=== PATIENT | female | born 1955 | race Caucasian/White ===

== ENCOUNTER 2016-07-31 12:30 | Outpatient (RCR) | payer MEDICAID ==
--- OUTSIDE RECORDS SUMMARY | 2016-07-25 09:19 | XMS REPORT | Continuity of Care Document ---
Author Author [facility] Organization [facility] Address Unknown Phone Unavailable Care Team Providers Care Bottoming Room Supervisor Name Role Phone Unverified, Unverified PCP Unavailable Source Comments Some departments are not documenting in the electronic medical record. 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
[2016-07-25 09:38] LABS: BASOPHILS % (AUTO) 0 % (0-10); EOSINOPHILS # (AUTO) 0.4 10^3/uL (0.0-0.3); EOSINOPHILS % (AUTO) 4 % (0-10); LYMPHOCYTES # (AUTO) 3.6 X 10^3 (1.0-4.0); LYMPHOCYTES % (AUTO) 42 % (12-44); MEAN CORPUSCULAR HEMOGLOBIN 29 PG (25-34); MEAN CORPUSCULAR HGB CONC 32 G/DL (32-36); MEAN CORPUSCULAR VOLUME 91 FL (80-99); MEAN PLATELET VOLUME 10.3 FL (7.4-10.4); MONOCYTES # (AUTO) 0.7 X 10^3 (0.0-1.0); MONOCYTES % (AUTO) 8 % (0-12); NEUTROPHILS # (AUTO) 3.9 X 10^3 (1.8-7.8); NEUTROPHILS % (AUTO) 46 % (42-75); PLATELET COUNT 232 10^3/uL (130-400); RED BLOOD COUNT 4.47 10^6/uL (4.35-5.85); RED CELL DISTRIBUTION WIDTH 14.4 % (10.0-14.5); WHITE BLOOD COUNT 8.6 10^3/uL (4.3-11.0)
[2016-07-25 10:03] LABS: BILIRUBIN,URINE NEGATIVE (NEGATIVE); KETONES,URINE NEGATIVE (NEGATIVE); LEUKOCYTE ESTERASE ,URINE NEGATIVE (NEGATIVE); NITRITE,URINE NEGATIVE (NEGATIVE); PH,URINE 6 (5-9); PROTEIN,URINE 1+ (NEGATIVE); UROBILINOGEN,URINE NORMAL (NORMAL)
[2016-07-25 10:25] LABS: ALBUMIN 4.2 G/DL (3.2-4.5); BILIRUBIN,TOTAL 0.5 MG/DL (0.1-1.0); CREATININE SERUM 0.96 MG/DL (0.60-1.30); POTASSIUM 4.4 MMOL/L (3.6-5.0); TOTAL PROTEIN 6.5 G/DL (6.4-8.2)
[2016-07-25 10:25] LABS: SQUAMOUS EPITHELIAL CELL,UR 25-50 /HPF
[~2016-07-31 12:30] MED LIST: ASPI-808 PO; ATEN50TA PO; ATN50T; ATOR40TA70 PO; BUPR150T9 PO; CYCL10TA9 PO; DIAZ5TAB3 PO; DULO30CA3 PO; FLEXERIL; HYDR-3812 PO; HYDR1CAP2 PO; HYDROCODONE; LEVSIN SL; LORA-794 PO; MIRT30TA PO; OMEP20CA12 PO; OMEP40CA36 PO; PANT40TA2 PO; PAXIL; PNT40TEC; PRX20T PO; VNL75T
== END 2016-10-23 | disposition home or self-care (01) ==
LOC: ONC 12:30
PROVIDERS: ATTEND Internal Medicine Hematology & Oncology
DX: C64.1 Malignant neoplasm of right kidney, except renal pelvis (principal); R16.0 Hepatomegaly, not elsewhere classified; I10 Essential (primary) hypertension; E66.01 Morbid (severe) obesity due to excess calories; Z68.41 Body mass index [BMI] 40.0-44.9, adult; Z79.899 Other long term (current) drug therapy
CPT/HCPCS: 36415; 80053; 81000; 85025; 99213

== ENCOUNTER 2016-12-19 09:44 | Outpatient (CLI) | payer MEDICAID ==
[~2016-12-19] VITALS: Ht 157.5 cm; Wt 131.5 kg
[2016-12-19 09:49] VITALS: BP 142/72
[2016-12-19] MEDS ORDERED: POTA-51 PO (10:00)
[2016-12-19] MEDS ORDERED: TIZA2CAP9 PO (10:00)
[2016-12-19] MEDS ORDERED: DICL100G27 TP (10:00)
[2016-12-19] MEDS ORDERED: FURO20TA4 PO (10:00)
[2016-12-19] MEDS ORDERED: ASPI-808 PO (10:00)
[2016-12-19] MEDS ORDERED: ATOR40TA70 PO (10:00)
[2016-12-19] MEDS ORDERED: HYDR-3812 PO (10:00)
[2016-12-19] MEDS ORDERED: BUPR300T51 PO (10:00)
== END 2016-12-19 10:05 | disposition home or self-care (01) ==
LOC: PREOP 09:44
PROVIDERS: ATTEND Orthopaedic Surgery
DX: Z01.818 Encounter for other preprocedural examination (principal); Z11.2 Encounter for screening for other bacterial diseases; G56.02 Carpal tunnel syndrome, left upper limb
CPT/HCPCS: 87081

== ENCOUNTER 2016-12-26 08:45 | Day surgery (SDC) | payer MEDICAID ==
--- NOTE | 2016-12-18 11:05 | HISTORY AND PHYSICAL ---
DATE OF SERVICE: 12/26/2016 PROCEDURE: Left carpal tunnel release. HISTORY OF PRESENT ILLNESS: The patient is a 61-year-old right hand dominant female with complaints of left hand pain and paresthesias. She underwent EMG and nerve conduction studies which revealed evidence of bilateral carpal tunnel syndrome. She reports hand pain and paresthesia with repetitive activities. She denies any specific trauma. She reports functional impairment and no relief with conservative measures and therefore has elected to proceed with surgical intervention. REVIEW OF SYSTEMS: No chest pain. No shortness of breath. No dysuria. PAST MEDICAL HISTORY: Hypertension, arthritis, kidney cancer, hyperlipidemia, hiatal hernia, depression, anxiety, allergic rhinitis, osteoarthritis, sleep apnea, tobacco use, prediabetes. PAST SURGICAL HISTORY: Right breast biopsy, right nephrectomy, partial hysterectomy, Anita fundoplication. FAMILY HISTORY: Hypertension, coronary artery disease. PRIMARY CARE PROVIDER: Dr. Dumont. MEDICATIONS: Hydrocodone, lorazepam, cyclobenzaprine, atenolol, Paxil, aspirin, bupropion, duloxetine, atorvastatin, omeprazole, furosemide, mirtazapine, tizanidine, Voltaren, diazepam. ALLERGIES: No known drug allergies. SOCIAL HISTORY: The patient smokes a half a pack of cigarettes a day. Denies alcohol use. PHYSICAL EXAMINATION: GENERAL: The patient is a well-developed, well-nourished, in no acute distress. HEENT: Normocephalic, atraumatic. Pupils are equal, round and reactive to light. Oropharynx is clear. NECK: Supple with no lymphadenopathy. LUNGS: Clear to auscultation bilaterally. HEART: Regular rate and rhythm. ABDOMEN: Soft, nontender, nondistended. EXTREMITIES: The left wrist demonstrates a positive Tinel's with carpal tunnel with a positive Phalen's maneuver. She has intact sensation throughout but decreased with Phalen's maneuver. She has full wrist flexion and extension and pronation and supination of the forearm. No skin lesions are noted. IMPRESSION: Left carpal tunnel syndrome. PLAN: Left carpal tunnel release. The risks, benefits, options, ramifications and recovery have been discussed at length with the patient. She understands and wishes to proceed. Job ID: [id number] DocumentID: [id number] Dictated Date: 12/18/2016 09:58:00 Backer Up Date: 12/18/2016 11:05:07 Dictated By: KATERINA SIEGEL MD
[~2016-12-26] VITALS: Ht 157.5 cm; Wt 131.5 kg
[~2016-12-26 08:45] MED LIST changes: +BUPR300T51 PO; +DICL100G27 TP; +FURO20TA4 PO; +POTA-51 PO; +TIZA2CAP9 PO
[2016-12-26] MEDS ORDERED: NS (IVPB) 50 ML ONE (08:58)
[2016-12-26] MEDS ORDERED: ceFAZolin 1,000 MG (ANCEF) VIAL ONE (08:58)
[2016-12-26] MEDS ORDERED: LACTATED RINGERS 1,000 ML IV PRN (09:05)
[2016-12-26] MEDS ORDERED: FAMOTIDINE 20MG/2ML IV (PEPCID) ONE (09:11)
--- NOTE | 2016-12-26 09:11 | Progress Note-Pre Operative ---
Pre-Operative Progress Note H&P Reviewed The H&P was reviewed, patient examined and no changes noted. Date H&P Reviewed: December 26, 2016 Time H&P Reviewed: 09:10 Pre-Operative Diagnosis: left carpal tunnel syndrome KATERINA SIEGEL MD December 26, 2016 09:11
--- NOTE | 2016-12-26 09:12 | Progress Note-Post Operative ---
Post-Operative Progess Note Surgeon (s)/Metal Checker (s) Surgeon KATERINA SIEGEL MD Metal Checker: Denver Nunez Pre-Operative Diagnosis left carpal tunnel syndrome Post-Operative Diagnosis left carpal tunnel syndrome Procedure & Operative Findings Date of Procedure 12/26/16 Procedure Performed/Findings left carpal tunnel release Anesthesia Type MAC plus local Estimated Blood Loss Estimated blood loss (mL): minimal Specimens/Packing Specimens Removed none Packing: none KATERINA SIEGEL MD December 26, 2016 09:12
[2016-12-26] MEDS ORDERED: ceFAZolin 1 GM/NS 50 ML IVPB IV ONE ×2 (09:15)
[2016-12-26] MEDS ORDERED: FAMOTIDINE 20MG/2ML IV (PEPCID) IV ONE (09:15)
[2016-12-26] MEDS ORDERED: LACTATED RINGERS 1,000 ML IV ONE (09:23)
[2016-12-26] MEDS ORDERED: proPOfol 200 MG/20 ML (DIPRIVAN) VIAL IV ONE (09:23)
[2016-12-26] MEDS ORDERED: SEVOFLURANE (ULTANE) 15 ML INHAL SOLN ONE (09:23)
[2016-12-26] MEDS ORDERED: DEXAMETHASONE PF 10 MG/ML (DECADRON) VIAL ONE (09:23)
[2016-12-26] MEDS ORDERED: ONDANSETRON 4 MG/2 ML (SDV) Z0FRAN ONE (09:23)
[2016-12-26] MEDS ORDERED: LIDOCAINE PF 2% 5 ML (XYLOCAINE) VIAL ONE (09:23)
[2016-12-26 09:24] VITALS: BP 123/66
[2016-12-26] MEDS ORDERED: MIDAZOLAM 2 MG/2 ML (VERSED) VIAL ONE ×2 (09:24→10:09)
[2016-12-26] MEDS ORDERED: fentaNYL INJECTION 100 MCG/2 ML AMP ONE (09:24)
[2016-12-26] MEDS ORDERED: BUPIVACAINE 0.5% 30 ML (SENSORCAINE) VIAL ONE (09:37)
[2016-12-26] MEDS ORDERED: LIDOCAINE 1% INJ 20 ML (XYLOCAINE) VIAL ONE (09:37)
[2016-12-26] MEDS ORDERED: HYDROcodone/APAP 7.5 MG/325 MG (LORTAB, LORCET PLUS) TABLET PO PRN (10:15)
[2016-12-26 11:10] VITALS: BP 104/88
[2016-12-26] MEDS ORDERED: HYDR-3816 PO (11:18)
[2016-12-26 11:40] VITALS: BP 121/71
[2016-12-26 12:00] VITALS: BP 121/71
--- NOTE | 2016-12-26 12:33 | OPERATIVE REPORT ---
DATE OF SERVICE: 12/26/2016 PREOPERATIVE DIAGNOSIS: Left carpal tunnel syndrome. POSTOPERATIVE DIAGNOSIS: Left carpal tunnel syndrome. PROCEDURE: Left carpal tunnel release. SURGEON: Katerina Siegel MD WAREHOUSE ASSOCIATE: DULCE MARIA Nloen ANESTHESIA: Monitored anesthesia care plus local by Dereje Mcbride CRNA TOURNIQUET TIME: 2 minutes at 250 mmHg. ESTIMATED BLOOD LOSS: Minimal. DRAINS: None. COMPLICATIONS: None. POSTOPERATIVE PLAN: Routine protocol. The patient was transported to the recovery room awake and in stable condition. STATEMENT OF MEDICAL NECESSITY: The patient is a 61-year-old right-hand dominant female with complaints of left hand pain and paresthesias. She had a positive Tinel's of the carpal tunnel with a positive Phalen's maneuver. She complained of night pain. She complained of pain with repetitive activity. She reported functional impairment and due to failure to improve with conservative measures, the patient elected to proceed with surgical intervention. DESCRIPTION OF PROCEDURE: After risks and benefits of the procedure were discussed and questions were answered, an informed consent was signed and placed on the chart. The operative site was confirmed in the preoperative holding area and initialed by the surgeon. The patient was then transported to the operating room after adequate levels of monitored anesthesia care were obtained. A timeout was called, confirming the operative site. The left hand was prepped and under sterile conditions the incision site was infiltrated with a combination of plain lidocaine and plain Marcaine. The left upper extremity was then prepped and draped in the usual sterile fashion with arm elevated. Tourniquet was inflated to 250 mmHg. An incision was made in line with the radial border of the ring finger overlying the transverse carpal ligament. The underlying soft tissues were carefully dissected and the transverse carpal ligament was incised by pushing through with the scalpel blade. The median nerve was identified and carefully protected throughout the procedure and intact at the conclusion of the procedure. Proximally, the transverse carpal ligament was spread above and below with dissection scissors and then released with slightly open scissor edges. This was confirmed fully freed with a Godfrey. The tourniquet was deflated for a total tourniquet time of 2 minutes. Pressure was used for hemostasis. The wound was copiously irrigated. The skin was then closed with 4-0 nylon in a running alternating horizontal mattress fashion. A soft dressing was applied and the patient was transported to the recovery room awake and in stable condition. Job ID: [id number] DocumentID: [id number] Dictated Date: 12/26/2016 10:33:41 Consumer Services Advisor Date: 12/26/2016 12:32:48 Dictated By: KATERINA SIEGEL MD
== END 2016-12-26 12:00 | disposition home or self-care (01) ==
LOC: SDC 08:45
PROVIDERS: ATTEND Orthopaedic Surgery
DX: G56.02 Carpal tunnel syndrome, left upper limb (principal); I10 Essential (primary) hypertension; M19.90 Unspecified osteoarthritis, unspecified site; E78.5 Hyperlipidemia, unspecified; F32.9 Major depressive disorder, single episode, unspecified; F41.9 Anxiety disorder, unspecified; G47.33 Obstructive sleep apnea (adult) (pediatric); R73.09 Other abnormal glucose; K21.9 Gastro-esophageal reflux disease without esophagitis; E66.01 Morbid (severe) obesity due to excess calories; Z68.43 Body mass index [BMI] 50.0-59.9, adult; F17.210 Nicotine dependence, cigarettes, uncomplicated; Z85.528 Personal history of other malignant neoplasm of kidney; Z90.5 Acquired absence of kidney; Z79.899 Other long term (current) drug therapy

== ENCOUNTER → 2017-01-14 | Outpatient (CLI) | payer MEDICAID ==
[~2017-01-14] MED LIST changes: +BARIUM SUSPENSION 2.1% (VANILLA SILQ) 450 ML PO ONE; +BUPR150T20 PO; +CATHETER FLUSH 10 ML SYR IV PRN; +HYDR-3816 PO; +IOHEXOL 350 MG/ML 100 ML (OMNIPAQUE 350) VIAL IV ONE; +NS 100 ML (IVPB) BAG IV ONE
--- NOTE | 2017-01-14 12:02 | Diagnostic Imaging Report ---
PROCEDURE: CT chest and abdomen with contrast. TECHNIQUE: Multiple contiguous axial images were obtained through the chest and abdomen after the administration of intravenous contrast. INDICATION: Renal cancer. 100 mL of Omnipaque 350 is administered intravenously. COMPARISON: 07/25/2016. FINDINGS: CT chest: The lungs demonstrate no significant consolidation, mass, or suspicious nodule. The heart size is normal. No pericardial or pleural effusion. There is no mediastinal mass or significantly enlarged lymph node. No lymphadenopathy in the subha. Minimally prominent axillary lymph nodes with preserved fatty hilum are likely reactive and are somewhat similar to 02/01/2015 exam. The osseous structures appear grossly unremarkable. CT abdomen: There is diffuse hepatic steatosis. The liver is mildly enlarged measuring 19.5 cm craniocaudally at the mid clavicular line level. The portal vein is patent. The gallbladder and the pancreas appear unremarkable. There is a right adrenal nodule measuring 1.2 cm, similar to 07/25/2016. Minimal fullness in the central aspect of the left adrenal gland is noted with no definitive nodule. A portocaval slightly enlarged lymph node is again noted measuring 1.7 cm in size. Right nephrectomy changes are seen with no surgical bed mass. The left kidney has normal parenchymal enhancement with no focal mass. No hydronephrosis. Hypodensity seen in the upper pole of the left kidney, similar to prior exams about 1 cm in size, is most likely a cyst. The abdominal aorta is normal in caliber. No para-aortic significantly enlarged lymph node is seen. There are splenic artery aneurysms measuring 1.8 cm along the distal splenic artery and near the splenic hilum measuring 1.2 cm, similar to prior exams. The osseous structures appear grossly unremarkable. IMPRESSION: CT chest: No evidence of metastasis. CT abdomen: 1. Stable nonspecific mildly enlarged portacaval lymph node and tiny nodule in the right adrenal gland seen without change. No newly enlarged lymph node or soft tissue mass is seen. 2. Stable enlarged fatty liver. 3. Stable splenic artery aneurysms up to 1.8 cm in size. Dictated by: Dictated on workstation # [id number]
== END ==
LOC: RAD 08:48
PROVIDERS: ATTEND Internal Medicine Hematology & Oncology
DX: K76.0 Fatty (change of) liver, not elsewhere classified (principal); I72.8 Aneurysm of other specified arteries; C64.1 Malignant neoplasm of right kidney, except renal pelvis; Z90.5 Acquired absence of kidney
CPT/HCPCS: 71260; 74160

== ENCOUNTER 2017-01-17 05:37 | Outpatient (CLI) | payer MEDICAID ==
[~2017-01-17 05:37] MED LIST changes: -BARIUM SUSPENSION 2.1% (VANILLA SILQ) 450 ML PO ONE; -BUPR150T20 PO; -CATHETER FLUSH 10 ML SYR IV PRN; -IOHEXOL 350 MG/ML 100 ML (OMNIPAQUE 350) VIAL IV ONE; -NS 100 ML (IVPB) BAG IV ONE
[2017-01-17] MEDS ORDERED: BUPR150T20 PO (14:18)
== END 2017-01-17 14:23 ==
DX: Z01.818 Encounter for other preprocedural examination (principal); G56.01 Carpal tunnel syndrome, right upper limb

== ENCOUNTER 2017-01-22 12:45 | Outpatient (RCR) | payer MEDICAID ==
[2017-01-07 13:26] LABS: BASOPHILS % (AUTO) 0 % (0-10); EOSINOPHILS # (AUTO) 0.3 10^3/uL (0.0-0.3); EOSINOPHILS % (AUTO) 3 % (0-10); LYMPHOCYTES # (AUTO) 4.1 X 10^3 (1.0-4.0); LYMPHOCYTES % (AUTO) 42 % (12-44); MEAN CORPUSCULAR HEMOGLOBIN 29 PG (25-34); MEAN CORPUSCULAR HGB CONC 32 G/DL (32-36); MEAN CORPUSCULAR VOLUME 90 FL (80-99); MEAN PLATELET VOLUME 10.3 FL (7.4-10.4); MONOCYTES # (AUTO) 0.7 X 10^3 (0.0-1.0); MONOCYTES % (AUTO) 7 % (0-12); NEUTROPHILS # (AUTO) 4.5 X 10^3 (1.8-7.8); NEUTROPHILS % (AUTO) 47 % (42-75); PLATELET COUNT 211 10^3/uL (130-400); RED BLOOD COUNT 4.43 10^6/uL (4.35-5.85); RED CELL DISTRIBUTION WIDTH 14.4 % (10.0-14.5); WHITE BLOOD COUNT 9.6 10^3/uL (4.3-11.0)
[2017-01-07 14:22] LABS: ALANINE AMINOTRANSFERASE 39 U/L (0-55); ALBUMIN 4.4 G/DL (3.2-4.5); ANION GAP 11 MMOL/L (5-14); ASPARTATE AMINO TRANSFERASE 28 U/L (5-34); BILIRUBIN,TOTAL 0.5 MG/DL (0.1-1.0); BLOOD UREA NITROGEN 15 MG/DL (7-18); BUN/CREATININE RATIO 17; CALCIUM 9.7 MG/DL (8.5-10.1); CARBON DIOXIDE 24 MMOL/L (21-32); CHLORIDE 106 MMOL/L (98-107); CREATININE SERUM 0.87 MG/DL (0.60-1.30); GFR ESTIMATED > 60; GLUCOSE 88 MG/DL (70-105); POTASSIUM 4.2 MMOL/L (3.6-5.0); SODIUM 141 MMOL/L (135-145); TOTAL PROTEIN 7.4 G/DL (6.4-8.2)
[2017-01-07 14:38] LABS: BILIRUBIN,URINE NEGATIVE (NEGATIVE); KETONES,URINE NEGATIVE (NEGATIVE); LEUKOCYTE ESTERASE ,URINE NEGATIVE (NEGATIVE); NITRITE,URINE NEGATIVE (NEGATIVE); PH,URINE 6 (5-9); PROTEIN,URINE NEGATIVE (NEGATIVE); UROBILINOGEN,URINE NORMAL (NORMAL)
[~2017-01-22 12:45] MED LIST changes: +BUPR150T20 PO
[2017-01-23] MEDS ORDERED: HYDR-3816 PO (10:50)
== END 2017-04-07 | disposition home or self-care (01) ==
LOC: ONC 12:45
PROVIDERS: ATTEND Internal Medicine Hematology & Oncology
DX: C64.1 Malignant neoplasm of right kidney, except renal pelvis (principal); R16.0 Hepatomegaly, not elsewhere classified; I10 Essential (primary) hypertension; E66.01 Morbid (severe) obesity due to excess calories; Z68.41 Body mass index [BMI] 40.0-44.9, adult; Z79.899 Other long term (current) drug therapy
CPT/HCPCS: 36415; 80053; 81000; 85025; 99213

== ENCOUNTER 2017-01-23 07:12 | Day surgery (SDC) | payer MEDICAID ==
--- NOTE | 2017-01-16 08:39 | HISTORY AND PHYSICAL ---
DATE OF SERVICE: This will be for outpatient surgery on 01/23/2017 for right carpal tunnel release. REASON FOR ADMISSION: Right carpal tunnel release. HISTORY OF PRESENT ILLNESS: The patient is a 61-year-old right hand dominant female with complaints of right hand pain and paresthesias. She underwent an EMG nerve conduction study which revealed evidence of right carpal tunnel syndrome. She reports hand pain and paresthesias with repetitive activities. She denies any specific trauma. She reports functional impairment and no relief with conservative measures. Due to functional impairment, the patient has elected to proceed with surgical intervention. REVIEW OF SYSTEMS: No chest pain, no shortness of breath, no dysuria. PAST MEDICAL HISTORY: Hypertension, arthritis, kidney cancer, hyperlipidemia, hiatal hernia, depression, anxiety, allergic rhinitis, osteoarthritis, sleep apnea, tobacco use, prediabetes. PAST SURGICAL HISTORY: Right breast biopsy, right nephrectomy, partial hysterectomy, Anita fundoplication and left carpal tunnel release. FAMILY HISTORY: Significant for hypertension, coronary artery disease. PRIMARY CARE PROVIDER: Dr. Dumont. MEDICATIONS: Hydrocodone, lorazepam, cyclobenzaprine, atenolol, Paxil, aspirin, bupropion, duloxetine, atorvastatin, omeprazole, furosemide, mirtazapine, tizanidine, Voltaren, diazepam. ALLERGIES: No known drug allergies. SOCIAL HISTORY: The patient smokes a half a pack of cigarettes a day. Denies alcohol use. PHYSICAL EXAMINATION: GENERAL: The patient is a well-developed, well-nourished, in no acute distress. HEENT: Normocephalic, atraumatic. Pupils are equal, round and reactive to light. Oropharynx is clear. NECK: Supple with no lymphadenopathy. LUNGS: Clear to auscultation bilaterally. HEART: Regular rate and rhythm. ABDOMEN: Soft, nontender, nondistended. EXTREMITIES: The left wrist demonstrates a positive Tinel's with carpal tunnel with a positive Phalen's maneuver. She has decreased sensation in median distribution. No gross thenar atrophy is noted. She has slight weakness for thumb palmar abduction. IMPRESSION: Right carpal tunnel syndrome. PLAN: Right carpal tunnel release. The risks, benefits, options, ramifications and recovery have been discussed at length with the patient. She understands and wishes to proceed. Job ID: [id number] DocumentID: [id number] Dictated Date: 01/15/2017 09:34:10 Sales Support Engineer Date: 01/15/2017 11:00:30 Dictated By: KATERINA SIEGEL MD
[~2017-01-23] VITALS: Ht 157.5 cm; Wt 131.5 kg
--- OUTSIDE RECORDS SUMMARY | 2017-01-23 07:16 | XMS REPORT | Continuity of Care Document ---
Author Author [facility] Organization [facility] Address Unknown Phone Unavailable Care Team Providers Care Weights And Measures Inspector Name Role Phone Unverified, Unverified PCP Unavailable Source Comments Some departments are not documenting in the electronic medical record. 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
--- OUTSIDE RECORDS SUMMARY | 2017-01-23 07:18 | XMS REPORT | Continuity of Care Document ---
Author Author [facility] Address Unknown Phone Unavailable Allergies Active Description Code Type Severity Reaction Onset Reported/Identified Relationship to Patient Clinical Status Yes morphine [id number] Drug Allergy Mild HIVES 08/19/2007 Yes No Known Drug Allergies [id number] Drug Allergy Unknown N/ A 08/09/2015 Medications Problems Date Dx Coded Attending Type Code Diagnosis Diagnosed By 02/26/2010 Ot 300.4 02/26/2010 Ot 305.1 02/26/2010 Ot 401.9 02/26/2010 Ot 530.81 02/26/2010 Ot 786.52 02/26/2010 Ot V10.52 09/01/2010 ALBANIA MAY MD 311 DEPRESSIVE DISORDER NOS 09/01/2010 ALBANIA MAY MD 401.9 UNSPECIFIED ESSENTIAL HYPERTENSION 09/01/2010 ALBANIA MAY MD 530.81 GERD 09/01/2010 ALBANIA MAY MD 625.6 STRESS INCONTINENCE FEMALE 09/01/2010 ALBANIA MAY MD N 311 DEPRESSIVE DISORDER NOS 09/01/2010 ALBANIA MAY MD N 401.9 UNSPECIFIED ESSENTIAL HYPERTENSION 09/01/2010 ALBANIA MAY MD 530.81 GERD 09/01/2010 ALBANIA MAY MD N 625.6 STRESS INCONTINENCE FEMALE 02/05/2011 Ot 401.9 HYPERTENSION NOS 02/05/2011 Ot 496 CHR AIRWAY OBSTRUCT NEC 02/05/2011 Ot 786.50 CHEST PAIN NOS 02/05/2011 Ot 786.52 PAINFUL RESPIRATION 10/08/2014 ALBANIA MAY MD 300.00 ANXIETY STATE UNSPECIFIED 10/08/2014 ALBANIA MAY MD 715.09 OSTEOARTHROSIS GENERALIZED INVOLVING MULTIPLE SITES 10/08/2014 ALBANIA MAY MD V06.1 TDAP DX 10/08/2014 ALBANIA MAY MD 300.00 ANXIETY STATE UNSPECIFIED 10/08/2014 ALBANIA MAY MD 715.09 OSTEOARTHROSIS GENERALIZED INVOLVING MULTIPLE SITES 10/08/2014 LALO BONILLA, ALBANIA N V06.1 TDAP DX 02/18/2015 LALO BONILLA, ALBANIA Zuniga Ot V10.52 02/18/2015 ALBANIA MAY MD Ot V10.52 03/01/2015 ALBANIA MAY MD Ot V10.52 03/01/2015 YANCY BONILLA, JEANETTE Whitney Ot 189.0 03/01/2015 YANCY BONILLA, JENAETTE Whitney Ot 278.01 03/01/2015 YANCY BONILLA, JEANETTE Whitney Ot 305.1 03/01/2015 YANCY BONILLA, JEANETTE Whitney Ot 401.9 03/01/2015 JEANETTE HAINES MD Ot 573.8 03/01/2015 JEANETTE HAINES MD Ot V16.51 03/01/2015 YANCY BONILLA, JEANETTE Whitney Ot V85.41 03/03/2015 YANCY BONILLA, JEANETTE Whitney Ot 573.9 03/03/2015 JEANETTE HAINES MD Ot V76.12 03/24/2015 PAM MCCARTHY DO Ot 278.00 OBESITY, NOS 03/24/2015 PAM MCCARTHY DO Ot 562.10 DIVERTICULOSIS COLON (W/O MENT OF HEMORR 03/24/2015 PAM MCCARTHY DO Ot 569.49 RECTAL ANAL DIS NEC 03/24/2015 PAM MCCARTHY DO Ot 787.91 DIARRHEA 03/24/2015 PAM MCCARTHY DO Ot V10.52 HX OF KIDNEY MALIGNANCY 03/24/2015 PAM MCCARTHY DO Ot V85.41 BODY MASS INDEX 40.0-44.9, ADULT 04/27/2015 YANCY BONILLA, JEANETTE Whitney Ot 189.0 MALIG NEOPL KIDNEY 04/27/2015 JEANETTE HAINES MD Ot 278.01 MORBID OBESITY 04/27/2015 YANCY BONILLA, JEANETTE Whitney Ot 305.1 TOBACCO USE DISORDER 04/27/2015 YANCY BONILLA, JEANETTE Whitney Ot 401.9 HYPERTENSION NOS 04/27/2015 YANCY BONILLA, JEANETTE Whitney Ot 573.8 LIVER DISORDERS NEC 04/27/2015 JEANETTE HAINES MD Ot V16.51 FAM HX-MALIG NEOP OF KIDNEY 04/27/2015 JEANETTE HAINES MD Ot V85.41 BODY MASS INDEX 40.0-44.9, ADULT 06/15/2015 ALBANIA MAY MD Ot V10.52 06/15/2015 YANCY BONILLA, JEANETTE Whitney Ot 573.9 06/15/2015 YANCY BONILLA, JEANETTE Whitney Ot V76.12 06/15/2015 PAM MCCARTHY DO Ot 787.91 06/15/2015 PAM MCCARTHY DO Ot V72.84 06/15/2015 YANCY BONILLA, JEANTETE Whitney Ot C64.9 06/15/2015 YANCY BONILLA, JEANETTE Whitney Ot K76.89 06/15/2015 YANCY BONILLA, JEANETTE Devonte Ot 189.0 06/15/2015 YANCY BONILLA, JEANETTE Devonte Ot 278.01 06/15/2015 AYNCY BONILLA, JEANETTE Devonte Ot 305.1 06/15/2015 YANCY BONILLA, JEANETTE Whitney Ot 401.9 06/15/2015 YANCY BONILLA, JEANETTE Whitnye Ot 573.8 06/15/2015 YANCY BONILLA, JEANETTE Devonte Ot V16.51 06/15/2015 YANCY BONILLA, JEANETTE Devonte Ot V85.41 06/15/2015 YANCY BONILLA, JEANETTE Whitney Ot 573.9 06/15/2015 YANCY BONILLA, JEANETTE Devonte Ot V76.12 06/15/2015 YANCY BONILLA, JEANETTE Devonte Ot 189.0 06/15/2015 YANCY BONILLA, JEANETTE Devonte Ot 278.01 06/15/2015 YANCY BONILLA, JEANETTE eDvonte Ot 305.1 06/15/2015 YANCY BONILLA, JEANETTE Devonte Ot 401.9 06/15/2015 YANCY BONILLA, JEANETTE Devonte Ot 573.8 06/15/2015 YANCY BONILLA, JEANETTE Whitney Ot V16.51 06/15/2015 YANCY BONILLA, JEANETTE Devonte Ot V85.41 06/15/2015 YANCY BONILLA, JEANETTE Whitney Ot C64.9 06/15/2015 YANCY BONILLA, JEANETTE Whitney Ot K76.89 06/28/2015 LALO BONILLA, ALBANIA Zuniga Ot V10.52 06/28/2015 YANCY BONILLA, JEANETTE Whitney Ot 573.9 06/28/2015 YANCY BONILLA, JEANETTE Whitney Ot V76.12 06/28/2015 YANCY BONILLA, JEANETTE Whitney Ot C64.9 06/28/2015 YANCY BONILLA, JEANETTE Whitney Ot K76.89 08/04/2015 LALO BONILLA, ALBANIA Zuniga Ot V10.52 08/04/2015 YANCY BONILLA, JEANETTE Whitney Ot 573.9 08/04/2015 YANCY BONILLA, JEANETTE Whitney Ot V76.12 08/04/2015 PAM MCCARTHY DO Ot 787.91 08/04/2015 PAM MCCARTHY DO Ot V72.84 08/04/2015 YANCY BONILLA, JEANETTE Devonte Ot C64.9 08/04/2015 YANCY BONILLA, JEANETTE K Ot K76.89 08/04/2015 YANCY BONILLA, JEANETTE K Ot 189.0 08/04/2015 YANCY BONILLA, JEANETTE Devonte Ot 278.01 08/04/2015 YANCY BONILLA, JEANETTE K Ot 305.1 08/04/2015 YANCY BONILLA, JEANETTE K Ot 401.9 08/04/2015 YANCY BONILLA, JEANETTE K Ot 573.8 08/04/2015 YANCY BONILLA, JEANETTE K Ot V16.51 08/04/2015 YANCY BONILLA, JEANETTE K Ot V85.41 08/05/2015 YANCY BONILLA, JEANETTE K Ot 189.0 08/05/2015 YANCY BONILLA, JEANETTE Devonte Ot 278.01 08/05/2015 YANCY BONILLA, JEANETTE K Ot 305.1 08/05/2015 YANCY BONILLA, JEANETTE K Ot 401.9 08/05/2015 YANCY BONILLA, JEANETTE K Ot 573.8 08/05/2015 YANCY BONILLA, JEANETTE K Ot V16.51 08/05/2015 YANCY BONILLA, JEANETTE K Ot V85.41 08/05/2015 YANCY BONILLA, JEANETTE K Ot 189.0 08/05/2015 YANCY BONILLA, JEANETTE Devonte Ot 278.01 08/05/2015 YANCY BONILLA, JEANETTE K Ot 305.1 08/05/2015 YANCY BONILLA, JEANETTE K Ot 401.9 08/05/2015 YANCY BONILLA, JEANETTE Devonte Ot 573.8 08/05/2015 YANCY BONILLA, JEANETTE Whitney Ot V16.51 08/05/2015 YANCY BONILLA, JEANETTE K Ot V85.41 08/09/2015 PAM MCCARTHY DO Ot K29.70 GASTRITIS, UNSPECIFIED, WITHOUT BLEEDING 08/10/2015 YANCY BONILLA, JEANETTE Devonte Ot 189.0 08/10/2015 YANCY BONILLA, JEANETTE Whitney Ot 278.01 08/10/2015 YANCY BONILLA, JEANETTE Devonte Ot 305.1 08/10/2015 YANCY BONILLA, JEANETTE Devonte Ot 401.9 08/10/2015 YANCY BONILLA, JEANETTE Devonte Ot 573.8 08/10/2015 YANCY BONILLA, JEANETTE Whitney Ot C64.1 MALIGNANT NEOPLASM OF RIGHT KIDNEY, EXCE 08/10/2015 YANCY BONILLA, JEANETTE Whitney Ot E66.01 MORBID (SEVERE) OBESITY DUE TO EXCESS CA 08/10/2015 JEANETTE HAINES MD Ot I10 ESSENTIAL (PRIMARY) HYPERTENSION 08/10/2015 JEANETTE HAINES MD Ot R16.0 HEPATOMEGALY, NOT ELSEWHERE CLASSIFIED 08/10/2015 JEANETTE HAINES MD Ot V16.51 08/10/2015 JEANETTE HAINES MD Ot V85.41 08/10/2015 JEANETTE HAINES MD Ot Z68.41 BODY MASS INDEX (BMI) 40.0-44.9, ADULT 08/10/2015 JEANETTE HAINES MD Ot Z79.899 OTHER ADVERTISING ACCOUNT MANAGER (CURRENT) DRUG THERAPY 11/04/2015 JEANETTE HAINES MD Ot 189.0 11/04/2015 JEANETTE HAINES MD Ot 278.01 11/04/2015 JEANETTE HAINES MD Ot 305.1 11/04/2015 JEANETTE HAINES MD Ot 401.9 11/04/2015 JEANETTE HAINES MD Ot 573.8 11/04/2015 JEANETTE HAINES MD Ot V16.51 11/04/2015 JEANETTE HAINES MD Ot V85.41 12/13/2015 JEANETTE HAINES MD Ot C64.1 MALIGNANT NEOPLASM OF RIGHT KIDNEY, EXCE 12/13/2015 JEANETTE HAINES MD Ot E66.01 MORBID (SEVERE) OBESITY DUE TO EXCESS CA 12/13/2015 JEANETTE HAINES MD Ot I10 ESSENTIAL (PRIMARY) HYPERTENSION 12/13/2015 JEANETTE HAINES MD Ot R16.0 HEPATOMEGALY, NOT ELSEWHERE CLASSIFIED 12/13/2015 JEANETTE HAINES MD Ot Z68.41 BODY MASS INDEX (BMI) 40.0-44.9, ADULT 12/13/2015 JEANETTE HAINES MD Ot Z79.899 OTHER ADVERTISING ACCOUNT MANAGER (CURRENT) DRUG THERAPY 01/14/2016 ALBANIA MAY MD Ot E78.1 PURE HYPERGLYCERIDEMIA 01/14/2016 ALBANIA MAY MD Ot F17.210 NICOTINE DEPENDENCE, CIGARETTES, UNCOMPL 01/14/2016 ALBANIA MAY MD Ot G45.9 TRANSIENT CEREBRAL ISCHEMIC ATTACK, UNSP 01/19/2016 ALBANIA MAY MD Ot V10.52 HX OF KIDNEY MALIGNANCY 01/19/2016 JEANETTE HAINES MD Ot 573.9 LIVER DISORDER NOS 01/19/2016 JEANETTE HAINES MD Ot V76.12 OTH SCREEN MAMMO-MALIGN NEOPLASM OF NIMESH 01/19/2016 MCCARTHY REID REIDJEFF Garibay Ot 787.91 DIARRHEA 01/19/2016 MCCARTHY PAM D Ot V72.84 EXAM PRE-OPERATIVE NOS 01/19/2016 JEANETTE HAINES MD, Ot C64.9 MALIGNANT NEOPLASM OF UNSP KIDNEY, EXCEP 01/19/2016 JEANETTE HAINES MD, Ot K76.89 OTHER SPECIFIED DISEASES OF LIVER 01/19/2016 MCCARTHY PAM REID Ot R13.10 DYSPHAGIA, UNSPECIFIED 01/19/2016 MCCARTHY PAM REID Ot Z01.818 ENCOUNTER FOR OTHER PREPROCEDURAL EXAMIN 01/19/2016 JEANETTE HIANES MD, Ot C64.1 MALIGNANT NEOPLASM OF RIGHT KIDNEY, EXCE 01/19/2016 JEANETTE HAINES MD, Ot E66.01 MORBID (SEVERE) OBESITY DUE TO EXCESS CA 01/19/2016 JEANETTE HAINES MD Ot I10 ESSENTIAL (PRIMARY) HYPERTENSION 01/19/2016 JEANETTE HAINES MD, Ot R16.0 HEPATOMEGALY, NOT ELSEWHERE CLASSIFIED 01/19/2016 JEANETTE HAINES MD, Ot Z68.41 BODY MASS INDEX (BMI) 40.0-44.9, ADULT 01/19/2016 JEANETTE HAINES MD, Ot Z79.899 OTHER ADVERTISING ACCOUNT MANAGER (CURRENT) DRUG THERAPY 01/20/2016 JEANETTE HAINES MD, Ot C64.1 MALIGNANT NEOPLASM OF RIGHT KIDNEY, EXCE 01/20/2016 JEANETTE HAINES MD, Ot 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 01/20/2016 JEANETTE HAINES MD, Ot K76.0 FATTY (CHANGE OF) LIVER, NOT ELSEWHERE C 01/20/2016 JEANETTE HAINES MD, Ot R59.0 LOCALIZED ENLARGED LYMPH NODES 02/01/2016 JEANETTE HAINES MD, Ot C64.1 MALIGNANT NEOPLASM OF RIGHT KIDNEY, EXCE 02/01/2016 JEANETTE HAINES MD, Ot E66.01 MORBID (SEVERE) OBESITY DUE TO EXCESS CA 02/01/2016 JEANETTE HAINES MD, Ot I10 ESSENTIAL (PRIMARY) HYPERTENSION 02/01/2016 JEANETTE HAINES MD, Ot R16.0 HEPATOMEGALY, NOT ELSEWHERE CLASSIFIED 02/01/2016 JEANETTE HAINES MD, Ot Z68.41 BODY MASS INDEX (BMI) 40.0-44.9, ADULT 02/01/2016 JEANETTE HAINES MD, Ot Z79.899 OTHER ADVERTISING ACCOUNT MANAGER (CURRENT) DRUG THERAPY 02/08/2016 JEANETTE HAINES MD, Ot C64.1 MALIGNANT NEOPLASM OF RIGHT KIDNEY, EXCE 02/08/2016 JEANETTE HAINES MD, Ot 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 02/08/2016 JEANETTE HAINES MD, Ot K76.0 FATTY (CHANGE OF) LIVER, NOT ELSEWHERE C 02/08/2016 JEANETTE HAINES MD, Ot R59.0 LOCALIZED ENLARGED LYMPH NODES 04/11/2016 ALBANIA MAY MD Ot Z12.31 ENCNTR SCREEN MAMMOGRAM FOR MALIGNANT NE 04/24/2016 ALBANIA MAY MD Ot Z12.31 ENCNTR SCREEN MAMMOGRAM FOR MALIGNANT NE 05/03/2016 ALBANIA MAY MD Ot G47.34 IDIO SLEEP RELATED NONOBSTRUCTIVE ALVEOL 05/04/2016 ALBANIA MAY MD Ot G47.34 IDIO SLEEP RELATED NONOBSTRUCTIVE ALVEOL 05/07/2016 ALBANIA MAY MD Ot V10.52 HX OF KIDNEY MALIGNANCY 05/07/2016 JEANETTE HAINES MD Ot 573.9 LIVER DISORDER NOS 05/07/2016 JEANETTE HAINES MD Ot V76.12 OTH SCREEN MAMMO-MALIGN NEOPLASM OF NIMESH 05/07/2016 PAM MCCARTHY DO Ot 787.91 DIARRHEA 05/07/2016 PAM MCCARTHY DO Ot V72.84 EXAM PRE-OPERATIVE NOS 05/07/2016 JEANETTE HAINES MD, Ot C64.9 MALIGNANT NEOPLASM OF UNSP KIDNEY, EXCEP 05/07/2016 JEANETTE HAINES MD Ot K76.89 OTHER SPECIFIED DISEASES OF LIVER 05/07/2016 PAM MCCARTHY DO Ot R13.10 DYSPHAGIA, UNSPECIFIED 05/07/2016 PAM MCCARTHY DO Ot Z01.818 ENCOUNTER FOR OTHER PREPROCEDURAL EXAMIN 05/07/2016 JEANETTE HAINES MD, Ot C64.1 MALIGNANT NEOPLASM OF RIGHT KIDNEY, EXCE 05/07/2016 JEANETTE HAINES MD Ot 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 05/07/2016 JEANETTE HAINES MD Ot K76.0 FATTY (CHANGE OF) LIVER, NOT ELSEWHERE C 05/07/2016 JEANETTE HAINES MD Ot R59.0 LOCALIZED ENLARGED LYMPH NODES 05/07/2016 JEANETTE HAINES MD, Ot C64.1 MALIGNANT NEOPLASM OF RIGHT KIDNEY, EXCE 05/07/2016 JEANETTE HAINES MD, Ot E66.01 MORBID (SEVERE) OBESITY DUE TO EXCESS CA 05/07/2016 JEANETTE HAINES MD, Ot I10 ESSENTIAL (PRIMARY) HYPERTENSION 05/07/2016 JEANETTE HAINES MD, Ot R16.0 HEPATOMEGALY, NOT ELSEWHERE CLASSIFIED 05/07/2016 JEANETTE HAINES MD, Ot Z68.41 BODY MASS INDEX (BMI) 40.0-44.9, ADULT 05/07/2016 JEANETTE HAINES MD, Ot Z79.899 OTHER ADVERTISING ACCOUNT MANAGER (CURRENT) DRUG THERAPY 05/07/2016 ALBANIA MAY MD Ot Z12.31 ENCNTR SCREEN MAMMOGRAM FOR MALIGNANT NE 05/08/2016 ALBANIA MAY MD Ot G47.34 IDIO SLEEP RELATED NONOBSTRUCTIVE ALVEOL 06/18/2016 ABLANIA MAY MD Ot R74.8 ABNORMAL LEVELS OF OTHER SERUM ENZYMES 06/18/2016 ALBANIA MAY MD Ot R74.8 ABNORMAL LEVELS OF OTHER SERUM ENZYMES 06/20/2016 ALBANIA MAY MD Ot R06.02 SHORTNESS OF BREATH 06/26/2016 ALBANIA MAY MD Ot R74.8 ABNORMAL LEVELS OF OTHER SERUM ENZYMES 07/26/2016 JEANETTE HAINES MD, Ot C64.1 MALIGNANT NEOPLASM OF RIGHT KIDNEY, EXCE 07/26/2016 JEANETTE HAINES MD, Ot E66.01 MORBID (SEVERE) OBESITY DUE TO EXCESS CA 07/26/2016 JEANETTE HAINES MD, Ot I10 ESSENTIAL (PRIMARY) HYPERTENSION 07/26/2016 JEANETTE HAINES MD, Ot R16.0 HEPATOMEGALY, NOT ELSEWHERE CLASSIFIED 07/26/2016 JEANETTE HAINES MD, Ot Z68.41 BODY MASS INDEX (BMI) 40.0-44.9, ADULT 07/26/2016 JEANETTE HAINES MD, Ot Z79.899 OTHER ADVERTISING ACCOUNT MANAGER (CURRENT) DRUG THERAPY 08/01/2016 ALBANIA MAY MD Ot R06.02 SHORTNESS OF BREATH 08/09/2016 JEANETTE HAINES MD Ot C64.1 MALIGNANT NEOPLASM OF RIGHT KIDNEY, EXCE 08/10/2016 JEANETTE HAINES MD, Ot C64.1 MALIGNANT NEOPLASM OF RIGHT KIDNEY, EXCE 08/10/2016 JEANETTE HAINES MD, Ot E66.01 MORBID (SEVERE) OBESITY DUE TO EXCESS CA 08/10/2016 JEANETTE HAINES MD, Ot I10 ESSENTIAL (PRIMARY) HYPERTENSION 08/10/2016 JEANETTE HAINES MD Ot R16.0 HEPATOMEGALY, NOT ELSEWHERE CLASSIFIED 08/10/2016 JEANETTE HAINES MD, Ot Z68.41 BODY MASS INDEX (BMI) 40.0-44.9, ADULT 08/10/2016 JEANETTE HAINES MD, Ot Z79.899 OTHER MCC (CURRENT) DRUG THERAPY 10/23/2016 JEANETTE HAINES MD, Ot C64.1 MALIGNANT NEOPLASM OF RIGHT KIDNEY, EXCE 10/23/2016 JEANETTE HAINES MD, Ot E66.01 MORBID (SEVERE) OBESITY DUE TO EXCESS CA 10/23/2016 JEANETTE HAINES MD Ot I10 ESSENTIAL (PRIMARY) HYPERTENSION 10/23/2016 JEANETTE HAINES MD, Ot R16.0 HEPATOMEGALY, NOT ELSEWHERE CLASSIFIED 10/23/2016 JEANETTE HAINES MD, Ot Z68.41 BODY MASS INDEX (BMI) 40.0-44.9, ADULT 10/23/2016 JEANETTE HAINES MD, Ot Z79.899 OTHER MCC (CURRENT) DRUG THERAPY 10/24/2016 JEANETTE HAINES MD, Ot C64.1 MALIGNANT NEOPLASM OF RIGHT KIDNEY, EXCE 10/24/2016 JEANETTE HAINES MD Ot E66.01 MORBID (SEVERE) OBESITY DUE TO EXCESS CA 10/24/2016 JEANETTE HAINES MD, Ot I10 ESSENTIAL (PRIMARY) HYPERTENSION 10/24/2016 JEANETTE HAINES MD, Ot R16.0 HEPATOMEGALY, NOT ELSEWHERE CLASSIFIED 10/24/2016 JEANETTE HAINES MD, Ot Z68.41 BODY MASS INDEX (BMI) 40.0-44.9, ADULT 10/24/2016 JEANETTE HAINES MD, Ot Z79.899 OTHER ADVERTISING ACCOUNT MANAGER (CURRENT) DRUG THERAPY 12/20/2016 KATERINA SIEGEL MD Ot G56.02 CARPAL TUNNEL SYNDROME, LEFT UPPER LIMB 12/20/2016 KATERINA SIEGEL MD Ot Z01.818 ENCOUNTER FOR OTHER PREPROCEDURAL EXAMIN 12/20/2016 KATERINA SIEGEL MD Ot Z11.2 ENCOUNTER FOR SCREENING FOR OTHER BACTER 12/26/2016 KATERINA SIEGEL MD Ot E66.01 MORBID (SEVERE) OBESITY DUE TO EXCESS CA 12/26/2016 KATERINA SIEGEL MD Ot E78.5 HYPERLIPIDEMIA, UNSPECIFIED 12/26/2016 KATERINA SIEGEL MD Ot F17.210 NICOTINE DEPENDENCE, CIGARETTES, UNCOMPL 12/26/2016 KATERINA SIEGEL MD Ot F32.9 MAJOR DEPRESSIVE DISORDER, SINGLE EPISOD 12/26/2016 KATERINA SIEGEL MD, Ot F41.9 ANXIETY DISORDER, UNSPECIFIED 12/26/2016 KATERINA SIEGEL MD, Ot G47.33 OBSTRUCTIVE SLEEP APNEA (ADULT) ( PEDIATR 12/26/2016 KATERINA SIEGEL MD Ot G56.02 CARPAL TUNNEL SYNDROME, LEFT UPPER LIMB 12/26/2016 KATERINA SIEGEL MD Ot I10 ESSENTIAL (PRIMARY) HYPERTENSION 12/26/2016 KATERINA SIEGEL MD, Ot K21.9 GASTRO-ESOPHAGEAL REFLUX DISEASE WITHOUT 12/26/2016 KATERINA SIEGEL MD, Ot M19.90 UNSPECIFIED OSTEOARTHRITIS, UNSPECIFIED 12/26/2016 KATERINA SIEGEL MD Ot R73.09 OTHER ABNORMAL GLUCOSE 12/26/2016 KATERINA SIEGEL MD Ot Z68.43 BODY MASS INDEX (BMI) 50-59.9 , ADULT 12/26/2016 KATERINA SIEGEL MD, Ot Z79.899 OTHER ADVERTISING ACCOUNT MANAGER (CURRENT) DRUG THERAPY 12/26/2016 KATERINA SIEGEL MD, Ot Z85.528 PERSONAL HISTORY OF OTHER MALIGNANT NEOP 12/26/2016 KATERINA SIEGEL MD, Ot Z90.5 ACQUIRED ABSENCE OF KIDNEY 12/27/2016 KATERINA SIEGEL MD Ot E66.01 MORBID (SEVERE) OBESITY DUE TO EXCESS CA 12/27/2016 KATERINA SIEGEL MD Ot E78.5 HYPERLIPIDEMIA, UNSPECIFIED 12/27/2016 KATERINA SIEGEL MD Ot F17.210 NICOTINE DEPENDENCE, CIGARETTES, UNCOMPL 12/27/2016 KATERINA SIEGEL MD, Ot F32.9 MAJOR DEPRESSIVE DISORDER, SINGLE EPISOD 12/27/2016 KATERINA SIEGEL MD, Ot F41.9 ANXIETY DISORDER, UNSPECIFIED 12/27/2016 KATERINA SIEGEL MD, Ot G47.33 OBSTRUCTIVE SLEEP APNEA (ADULT) ( PEDIATR 12/27/2016 KATERINA SIEGEL MD Ot G56.02 CARPAL TUNNEL SYNDROME, LEFT UPPER LIMB 12/27/2016 KATERINA SIEGEL MD Ot I10 ESSENTIAL (PRIMARY) HYPERTENSION 12/27/2016 KATERINA SIEGEL MD Ot K21.9 GASTRO-ESOPHAGEAL REFLUX DISEASE WITHOUT 12/27/2016 KATERINA SIEGEL MD, Ot M19.90 UNSPECIFIED OSTEOARTHRITIS, UNSPECIFIED 12/27/2016 KATERINA SIEGEL MD, Ot R73.09 OTHER ABNORMAL GLUCOSE 12/27/2016 KATERINA SIEGEL MD, Ot Z68.43 BODY MASS INDEX (BMI) 50-59.9 , ADULT 12/27/2016 KATERINA SIEGEL MD, Ot Z79.899 OTHER ADVERTISING ACCOUNT MANAGER (CURRENT) DRUG THERAPY 12/27/2016 KATERINA SIEGEL MD, Ot Z85.528 PERSONAL HISTORY OF OTHER MALIGNANT NEOP 12/27/2016 KATERINA SIEGEL MD, Ot Z90.5 ACQUIRED ABSENCE OF KIDNEY 12/29/2016 KATERINA SIEGEL MD, Ot E66.01 MORBID (SEVERE) OBESITY DUE TO EXCESS CA 12/29/2016 KATERINA SIEGEL MD, Ot E78.5 HYPERLIPIDEMIA, UNSPECIFIED 12/29/2016 KATERINA SIEGEL MD, Ot F17.210 NICOTINE DEPENDENCE, CIGARETTES, UNCOMPL 12/29/2016 KATERINA SIEGEL MD, Ot F32.9 MAJOR DEPRESSIVE DISORDER, SINGLE EPISOD 12/29/2016 KATERINA SIEGEL MD, Ot F41.9 ANXIETY DISORDER, UNSPECIFIED 12/29/2016 KATERINA SIEGEL MD, Ot G47.33 OBSTRUCTIVE SLEEP APNEA (ADULT) ( PEDIATR 12/29/2016 KATERINA SIEGEL MD, Ot G56.02 CARPAL TUNNEL SYNDROME, LEFT UPPER LIMB 12/29/2016 KATERINA SIEGEL MD Ot I10 ESSENTIAL (PRIMARY) HYPERTENSION 12/29/2016 KATERINA SIEGEL MD, Ot K21.9 GASTRO-ESOPHAGEAL REFLUX DISEASE WITHOUT 12/29/2016 KATERINA SIEGEL MD, Ot M19.90 UNSPECIFIED OSTEOARTHRITIS, UNSPECIFIED 12/29/2016 KATERINA SIEGEL MD, Ot R73.09 OTHER ABNORMAL GLUCOSE 12/29/2016 KATERINA SIEGEL MD, Ot Z68.43 BODY MASS INDEX (BMI) 50-59.9 , ADULT 12/29/2016 KATERINA SIEGEL MD, Ot Z79.899 OTHER MCC (CURRENT) DRUG THERAPY 12/29/2016 KATERINA SIEGEL MD, Ot Z85.528 PERSONAL HISTORY OF OTHER MALIGNANT NEOP 12/29/2016 KATERINA SIEGEL MD, Ot Z90.5 ACQUIRED ABSENCE OF KIDNEY 01/09/2017 JEANETTE HAINES MD, Ot C64.1 MALIGNANT NEOPLASM OF RIGHT KIDNEY, EXCE 01/09/2017 JEANETTE HAINES MD, Ot E66.01 MORBID (SEVERE) OBESITY DUE TO EXCESS CA 01/09/2017 JEANETTE HAINES MD Ot I10 ESSENTIAL (PRIMARY) HYPERTENSION 01/09/2017 JEANETTE HAINES MD, Ot R16.0 HEPATOMEGALY, NOT ELSEWHERE CLASSIFIED 01/09/2017 JEANETTE HAINES MD, Ot Z68.41 BODY MASS INDEX (BMI) 40.0-44.9, ADULT 01/09/2017 JEANETTE HAINES MD, Ot Z79.899 OTHER ADVERTISING ACCOUNT MANAGER (CURRENT) DRUG THERAPY 01/16/2017 JEANETTE HAINES MD, Ot C64.1 MALIGNANT NEOPLASM OF RIGHT KIDNEY, EXCE 01/16/2017 JEANETTE HAINES MD, Ot 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 01/16/2017 JEANETTE HAINES MD, Ot K76.0 FATTY (CHANGE OF) LIVER, NOT ELSEWHERE C 01/16/2017 JEANETTE HAINES MD, Ot Z90.5 ACQUIRED ABSENCE OF KIDNEY 01/16/2017 JEANETTE HAINES MD, Ot C64.1 MALIGNANT NEOPLASM OF RIGHT KIDNEY, EXCE 01/16/2017 JEANETTE HAINES MD, Ot 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 Visit Date/Time Discharge Status Pt. Type Provider Facility Loc./Unit Complaint [id number] 10/29/2014 13:08:00 10/29/2014 23: 59:59 CLS Outpatient [place] MAY MD [id number] 10/08/2014 10:21:00 10/08/2014 23: 59:59 CLS Outpatient [place] MAY MD N
--- NOTE | 2017-01-23 07:25 | Progress Note-Pre Operative ---
Pre-Operative Progress Note H&P Reviewed The H&P was reviewed, patient examined and no changes noted. Date Seen by Provider: Jan 23, 2017 Time Seen by Provider: 07:25 Date H&P Reviewed: Jan 23, 2017 Time H&P Reviewed: 07:25 Pre-Operative Diagnosis: right carpal tunnel syndrome KATERINA SIEGEL MD Jan 23, 2017 07:25
--- NOTE | 2017-01-23 07:26 | Progress Note-Post Operative ---
Post-Operative Progess Note Surgeon (s)/Warehouse Administrative Assistant (s) Surgeon KATERINA SIEGEL MD Warehouse Administrative Assistant: Denver Nunez who assisted throughout the procedure and closed the incision Pre-Operative Diagnosis right carpal tunnel syndrome Post-Operative Diagnosis right carpal tunnel syndrome Procedure & Operative Findings Date of Procedure 01/23/17 Procedure Performed/Findings right carpal tunnel release After risks and benefits of the procedure were discussed and questions were answered an informed consent was signed and placed on the chart. The patient was transported to the operating room After adequate levels of monitored anesthesia care were obtained, a time out was called confirming the operative site. The incision area was then infiltrated with a combination of plain lidocaine and marcaine under sterile conditions. The right upper extremity was then prepped and draped in the usual sterile fashion. With the arm elevated, the tourniquet was infiltrated to 250 mm of mercury. An incision was made in line with the radial border of the ring finger over the transverse carpal ligament. The underlying soft tissues were sharply dissected exposing the transverse carpal ligament. This was then sharply incised by pushing through with the scalpel blade while carefully protecting the median nerve. This was confirmed fully released with a freer. Proximally, while protecting the median nerve, the ligament was exposed above and below with dissection scissors. While protecting the nerve the proximal extent of the transverse carpal ligament was released with the slightly opened scissor edges. This was confirmed fully released with a freer. The nerve was intact at the conclusion of the procedure. The tourniquet was deflated for a total time of three minutes. Pressure was used for hemostasis. The wound was closed with 4.0 nylon. A soft dressing and splint were applied and the patient was transported to the recovery room awake and in stable condition. Anesthesia Type MAC plus local Estimated Blood Loss Estimated blood loss (mL): minimal Specimens/Packing Specimens Removed none Packing: none KATERINA SIEGEL MD Jan 23, 2017 07:26
[2017-01-23] MEDS ORDERED: HYDROcodone/APAP 7.5 MG/325 MG (LORTAB, LORCET PLUS) TABLET PO PRN (07:30)
[2017-01-23 07:35] VITALS: BP 132/75
[2017-01-23] MEDS ORDERED: NS (IVPB) 50 ML ONE (07:36)
[2017-01-23] MEDS ORDERED: ceFAZolin 1,000 MG (ANCEF) VIAL ONE (07:36)
[2017-01-23] MEDS ORDERED: ceFAZolin 1 GM/NS 50 ML IVPB IV ONE ×2 (07:45)
[2017-01-23] MEDS ORDERED: LACTATED RINGERS 1,000 ML IV PRN ×2 (07:54→08:44)
[2017-01-23] MEDS ORDERED: fentaNYL INJECTION 100 MCG/2 ML AMP ONE (08:18)
[2017-01-23] MEDS ORDERED: MIDAZOLAM 2 MG/2 ML (VERSED) VIAL ONE (08:19)
[2017-01-23] MEDS ORDERED: BUPIVACAINE 0.5% 30 ML (SENSORCAINE) VIAL ONE (08:52)
[2017-01-23] MEDS ORDERED: LIDOCAINE 1% INJ 20 ML (XYLOCAINE) VIAL ONE (08:52)
[2017-01-23] MEDS ORDERED: PROPOFOL INJECTION 50 ML IV ONE (09:15)
[2017-01-23] MEDS ORDERED: ONDANSETRON 4 MG/2 ML (SDV) Z0FRAN ONE (09:15)
[2017-01-23] MEDS ORDERED: LACTATED RINGERS 1,000 ML IV ONE (09:15)
[2017-01-23] MEDS ORDERED: MEPERIDINE (DEMEROL) INJ 50 MG/ML IVP PRN (10:00)
[2017-01-23] MEDS ORDERED: morphine INJ 10 MG/ML 1ML (SYR OR VIAL) IVP PRN (10:00)
[2017-01-23] MEDS ORDERED: ONDANSETRON 4 MG/2 ML (SDV) Z0FRAN IVP PRN (10:00)
[2017-01-23 10:25] VITALS: BP 128/78
[2017-01-23] MEDS ORDERED: HYDR-3816 PO (10:50)
[2017-01-23 10:55] VITALS: BP 133/73
== END 2017-01-23 11:07 | disposition home or self-care (01) ==
LOC: SDC 07:12
PROVIDERS: ATTEND Orthopaedic Surgery
DX: G56.01 Carpal tunnel syndrome, right upper limb (principal); I10 Essential (primary) hypertension; M19.90 Unspecified osteoarthritis, unspecified site; E78.5 Hyperlipidemia, unspecified; K21.9 Gastro-esophageal reflux disease without esophagitis; F32.9 Major depressive disorder, single episode, unspecified; F41.9 Anxiety disorder, unspecified; F17.210 Nicotine dependence, cigarettes, uncomplicated; R73.03 Prediabetes; E66.01 Morbid (severe) obesity due to excess calories; G47.33 Obstructive sleep apnea (adult) (pediatric); Z85.528 Personal history of other malignant neoplasm of kidney; Z68.43 Body mass index [BMI] 50.0-59.9, adult
CPT/HCPCS: 87081

== ENCOUNTER 2017-07-15 14:26 | Outpatient (RCR) | payer MEDICAID ==
[2017-06-12 15:14] LABS: BASOPHILS % (AUTO) 0 % (0-10); EOSINOPHILS # (AUTO) 0.3 10^3/uL (0.0-0.3); EOSINOPHILS % (AUTO) 3 % (0-10); HEMATOCRIT 38 % (35-52); HEMOGLOBIN 12.5 G/DL (11.5-16.0); LYMPHOCYTES # (AUTO) 3.8 X 10^3 (1.0-4.0); LYMPHOCYTES % (AUTO) 48 % (12-44); MEAN CORPUSCULAR HEMOGLOBIN 30 PG (25-34); MEAN CORPUSCULAR HGB CONC 33 G/DL (32-36); MEAN CORPUSCULAR VOLUME 90 FL (80-99); MEAN PLATELET VOLUME 10.5 FL (7.4-10.4); MONOCYTES # (AUTO) 0.6 X 10^3 (0.0-1.0); MONOCYTES % (AUTO) 7 % (0-12); NEUTROPHILS # (AUTO) 3.3 X 10^3 (1.8-7.8); NEUTROPHILS % (AUTO) 41 % (42-75); PLATELET COUNT 197 10^3/uL (130-400); RED BLOOD COUNT 4.21 10^6/uL (4.35-5.85); RED CELL DISTRIBUTION WIDTH 13.9 % (10.0-14.5); WHITE BLOOD COUNT 7.9 10^3/uL (4.3-11.0)
[2017-06-12 15:36] LABS: ALBUMIN 4.1 GM/DL (3.2-4.5); BILIRUBIN,TOTAL 0.5 MG/DL (0.1-1.0); CALCIUM 9.2 MG/DL (8.5-10.1); CREATININE SERUM 1.08 MG/DL (0.60-1.30); POTASSIUM 3.8 MMOL/L (3.6-5.0)
[~2017-07-15 14:26] MED LIST changes: +ACHD5005 PO; +HYDR-34 PO; -HYDR-3812 PO; -HYDR-3816 PO
== END 2017-09-10 | disposition home or self-care (01) ==
LOC: ONC 14:26
PROVIDERS: ATTEND Internal Medicine Hematology & Oncology
DX: C64.1 Malignant neoplasm of right kidney, except renal pelvis (principal); I10 Essential (primary) hypertension; E66.01 Morbid (severe) obesity due to excess calories; Z68.41 Body mass index [BMI] 40.0-44.9, adult; Z79.899 Other long term (current) drug therapy
CPT/HCPCS: 36415; 80053; 85025; 99213

== ENCOUNTER → 2017-08-26 | Outpatient (CLI) | payer MEDICAID ==
[~2017-08-26] MED LIST changes: -HYDR-34 PO; +HYDR-3816 PO; +RT-ALBUTEROL SULF 2.5 MG/3 ML PRE-MIX VIAL INH ONE
== END ==
LOC: RAD 16:33
PROVIDERS: ATTEND Family Medicine
DX: J98.4 Other disorders of lung (principal)
CPT/HCPCS: 94060; 94726; 94729

== ENCOUNTER → 2017-10-30 | Outpatient (CLI) | payer MEDICAID ==
[~2017-10-30] MED LIST changes: +BARIUM SUSPENSION 2.1% (VANILLA SILQ) 450 ML PO ONE; +HYDR-34 PO; -HYDR-3816 PO; +IOHEXOL 350 MG/ML 100 ML (OMNIPAQUE 350) VIAL IV ONE; +NS 250 ML (IVPB) BAG IV ONE; -RT-ALBUTEROL SULF 2.5 MG/3 ML PRE-MIX VIAL INH ONE
--- NOTE | 2017-10-30 14:31 | Diagnostic Imaging Report ---
PROCEDURE: CT chest with contrast, CT abdomen and pelvis with and without contrast. TECHNIQUE: Pre and post intravenous contrast axial imaging of the abdomen and pelvis and post contrast axial imaging of the chest were performed. INDICATION: Carcinoma of the kidney. FINDINGS: The previous CT chest and abdomen exam of 01/14/17 noted postsurgical changes consistent with a prior right nephrectomy. There is no evidence for recurrent neoplasm or for an acute abnormality. On this exam, there is still no evidence for a mass in the right renal fossa to suggest recurrent neoplasm. The left kidney is stable in appearance as are the adrenal glands. 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 The 1.7 cm portacaval lymph node noted on the prior study is also again visualized and is unchanged in size. There are a few other nodes in the portacaval region but these seem stable as well. The liver is of lower density than usually seen. This does suggest fatty metamorphosis. There is no focal mass involving the liver and the biliary tree is not abnormally dilated. The gallbladder, the pancreas, the stomach, the aorta and the inferior vena cava are stable when compared to the prior study. As noted on the previous CT abdomen/pelvis exam of 07/25/16, the uterus is surgically absent. The urinary bladder is not well distended and consequently difficult to assess. There is no obvious bladder abnormality evident. There is diverticulosis of the sigmoid colon and there are a few segments of small bowel clumped about this portion of the colon. There is no sign of acute diverticulitis, however. The appendix was not well visualized but there are no indirect signs of acute appendicitis. The images through the thorax show that the heart size is within normal limits and stable when compared to the previous study. There are sparse coronary artery calcifications evident. The aorta is not abnormally dilated and there is no sign of a dissection. There is no defect within the pulmonary arteries to indicate a pulmonary embolus although the pulmonary arteries are not fully opacified. There is no mediastinal or hilar adenopathy. In the interval since the prior exam, a patchy alveolar/interstitial infiltrate has developed along the periphery of the right lower lobe. This could be secondary to mild pneumonia/atelectasis. There is a small amount of increased density in the periphery of the left lung base as well and there does appear to be dependent atelectasis in each lower lobe. There is no parenchymal lung mass to suggest metastatic disease and there is no sign of pleural effusion. There is no obvious breast mass evident. There is no axillary adenopathy noted either. The bone windows show no sign of a fracture or of a destructive lesion. IMPRESSION: 1. The appearance of the abdomen and pelvis is stable. There is no sign of a mass in the right renal fossa to suggest recurrent neoplasm. 2. There is no acute abnormality of the abdomen or pelvis. 3. In the interval since the prior exam, patchy alveolar/interstitial infiltrates have developed in the right midlung and to a lesser extent the left lower lobe. The possibility that these findings are related to mild pneumonia/atelectasis should be considered. 4. There is no acute cardiopulmonary abnormality noted otherwise and there is no sign of neoplastic disease involving the chest. Dictated by: Dictated on workstation # [id number]
== END ==
LOC: RAD 11:08
PROVIDERS: ATTEND Internal Medicine Hematology & Oncology
DX: C64.1 Malignant neoplasm of right kidney, except renal pelvis (principal); R91.8 Other nonspecific abnormal finding of lung field
CPT/HCPCS: 71260; 74178

== ENCOUNTER 2017-11-06 12:55 | Outpatient (RCR) | payer MEDICAID ==
[2017-10-29 12:35] LABS: BASOPHILS % (AUTO) 0 % (0-10); EOSINOPHILS # (AUTO) 0.4 10^3/uL (0.0-0.3); EOSINOPHILS % (AUTO) 3 % (0-10); HEMATOCRIT 43 % (35-52); HEMOGLOBIN 14.3 G/DL (11.5-16.0); LYMPHOCYTES # (AUTO) 4.4 X 10^3 (1.0-4.0); LYMPHOCYTES % (AUTO) 39 % (12-44); MEAN CORPUSCULAR HEMOGLOBIN 30 PG (25-34); MEAN CORPUSCULAR HGB CONC 33 G/DL (32-36); MEAN CORPUSCULAR VOLUME 90 FL (80-99); MEAN PLATELET VOLUME 10.8 FL (7.4-10.4); MONOCYTES # (AUTO) 0.9 X 10^3 (0.0-1.0); MONOCYTES % (AUTO) 8 % (0-12); NEUTROPHILS # (AUTO) 5.5 X 10^3 (1.8-7.8); NEUTROPHILS % (AUTO) 49 % (42-75); PLATELET COUNT 215 10^3/uL (130-400); RED BLOOD COUNT 4.77 10^6/uL (4.35-5.85); RED CELL DISTRIBUTION WIDTH 14.2 % (10.0-14.5); WHITE BLOOD COUNT 11.3 10^3/uL (4.3-11.0)
[2017-10-29 12:47] LABS: ALBUMIN 4.7 GM/DL (3.2-4.5); BILIRUBIN,TOTAL 0.6 MG/DL (0.1-1.0); CALCIUM 9.9 MG/DL (8.5-10.1); CREATININE SERUM 1.17 MG/DL (0.60-1.30)
[~2017-11-06 12:55] MED LIST changes: -BARIUM SUSPENSION 2.1% (VANILLA SILQ) 450 ML PO ONE; -IOHEXOL 350 MG/ML 100 ML (OMNIPAQUE 350) VIAL IV ONE; -NS 250 ML (IVPB) BAG IV ONE
== END 2018-01-27 | disposition home or self-care (01) ==
LOC: ONC 12:55
PROVIDERS: ATTEND Internal Medicine Hematology & Oncology
DX: C64.1 Malignant neoplasm of right kidney, except renal pelvis (principal); I10 Essential (primary) hypertension; E66.01 Morbid (severe) obesity due to excess calories; Z68.41 Body mass index [BMI] 40.0-44.9, adult; Z79.899 Other long term (current) drug therapy
CPT/HCPCS: 36415; 80053; 83615; 85025; 99213

== ENCOUNTER 2018-04-07 13:46 | Outpatient (RCR) | payer MEDICARE, MEDICAID | END 2018-04-27 | disposition home or self-care (01) | LOC: PULM 13:46 | PROVIDERS: ATTEND Family Medicine | DX: J43.9 Emphysema, unspecified (principal) | CPT/HCPCS: 99211 ==

== ENCOUNTER 2018-07-17 15:00 | Outpatient (RCR) | payer MEDICARE, MEDICAID ==
[2018-05-01 15:00] VITALS: BP 146/64
[2018-05-01 16:00] VITALS: BP 130/60
[2018-05-06 15:00] VITALS: BP 116/72
[2018-05-08 15:00] VITALS: BP 138/70
[2018-05-08 16:00] VITALS: BP 118/62
[2018-05-13 15:00] VITALS: BP 121/80
[2018-05-13 16:00] VITALS: BP 160/50
[2018-05-15 15:00] VITALS: BP 150/80
[2018-05-15 16:00] VITALS: BP 153/60
[2018-05-20 15:00] VITALS: BP 130/60
[2018-05-20 16:00] VITALS: BP 121/60
[2018-05-27 15:00] VITALS: BP 128/80
[2018-05-27 16:00] VITALS: BP 140/61
[2018-06-10 14:45] VITALS: BP_SYST 123; BP_SYST 132; BP_DIAS 68; BP_DIAS 81
[2018-06-10 15:50] VITALS: BP 120/74
[2018-06-17 15:00] VITALS: BP 120/78
[2018-06-17 16:00] VITALS: BP 140/60
[2018-07-08 15:00] VITALS: BP 160/68
[2018-07-08 16:00] VITALS: BP 140/60
[2018-07-10 15:00] VITALS: BP 115/58
[2018-07-10 15:46] VITALS: BP 140/60
[2018-07-15 15:00] VITALS: BP 123/60
[2018-07-15 16:00] VITALS: BP 120/60
[2018-07-17 15:00] VITALS: BP 123/87
[2018-07-17 16:00] VITALS: BP 140/60
== END 2018-08-04 | disposition home or self-care (01) ==
LOC: PULM 15:00
PROVIDERS: ATTEND Family Medicine
DX: J43.9 Emphysema, unspecified (principal)

== ENCOUNTER 2018-10-28 15:00 | Outpatient (RCR) | payer MEDICARE, MEDICAID ==
[2018-08-19 15:00] VITALS: BP 150/60
[2018-08-19 16:00] VITALS: BP 115/60
[2018-08-21 15:00] VITALS: BP 130/70
[2018-08-21 15:54] VITALS: BP 135/65
[2018-09-23 15:00] VITALS: BP 143/80
[2018-09-23 16:00] VITALS: BP 140/80
[2018-09-30 15:00] VITALS: BP 130/60
[2018-09-30 16:00] VITALS: BP 130/60
[2018-10-02 15:00] VITALS: BP 150/80
[2018-10-07 15:00] VITALS: BP 128/60
[2018-10-07 16:00] VITALS: BP 110/60
[2018-10-14 15:00] VITALS: BP 118/60
[2018-10-14 16:00] VITALS: BP 116/60
[2018-10-21 14:55] VITALS: BP 124/72
[2018-10-21 15:50] VITALS: BP 126/68
[2018-10-23 15:00] VITALS: BP 115/60
[2018-10-23 16:00] VITALS: BP 118/78
[2018-10-28 15:00] VITALS: BP 101/50
[2018-10-28 16:00] VITALS: BP 130/60
== END 2018-11-17 | disposition home or self-care (01) ==
LOC: PULM 15:00
PROVIDERS: ATTEND Family Medicine
DX: J43.9 Emphysema, unspecified (principal)

== ENCOUNTER 2018-11-06 13:16 | Outpatient (RCR) | payer MEDICAID, OTHER | END 2019-02-04 | disposition home or self-care (01) | LOC: ONC 13:16 | PROVIDERS: ATTEND Internal Medicine Hematology & Oncology | DX: C64.1 Malignant neoplasm of right kidney, except renal pelvis (principal); I10 Essential (primary) hypertension; E66.01 Morbid (severe) obesity due to excess calories; Z68.41 Body mass index [BMI] 40.0-44.9, adult; Z79.899 Other long term (current) drug therapy | CPT/HCPCS: 99213 ==

== ENCOUNTER → 2019-07-13 | Outpatient (CLI) | payer MEDICARE, OTHER ==
[~2019-07-13] MED LIST changes: -OMEP20CA12 PO; +OMEP20CA13 PO; +RT-ALBUTEROL SULF 2.5 MG/3 ML PRE-MIX VIAL INH ONE
== END ==
LOC: RT 14:26
PROVIDERS: ATTEND Family Medicine
DX: J43.9 Emphysema, unspecified (principal); J98.4 Other disorders of lung
CPT/HCPCS: 94060; 94726; 94729

== ENCOUNTER → 2020-01-21 | Outpatient (CLI) | payer OTHER ==
[~2020-01-21] MED LIST changes: -BUPR150T20 PO; +BUPR150T28 PO; -BUPR300T51 PO; +BUPR300T98 PO; -DIAZ5TAB3 PO; +DIAZ5TAB49 PO; -OMEP20CA13 PO; +OMEP20CA18 PO; +OMEP40CA27 PO; -OMEP40CA36 PO; -RT-ALBUTEROL SULF 2.5 MG/3 ML PRE-MIX VIAL INH ONE
[2020-01-21 14:16] LABS: BASOPHILS % (AUTO) 0 % (0-10); EOSINOPHILS # (AUTO) 0.3 10^3/uL (0.0-0.3); EOSINOPHILS % (AUTO) 3 % (0-10); HEMATOCRIT 38 % (35-52); HEMOGLOBIN 12.6 G/DL (11.5-16.0); LYMPHOCYTES # (AUTO) 3.5 X 10^3 (1.0-4.0); LYMPHOCYTES % (AUTO) 44 % (12-44); MEAN CORPUSCULAR HEMOGLOBIN 29 PG (25-34); MEAN CORPUSCULAR HGB CONC 33 G/DL (32-36); MEAN CORPUSCULAR VOLUME 89 FL (80-99); MEAN PLATELET VOLUME 9.9 FL (7.4-10.4); MONOCYTES # (AUTO) 0.7 X 10^3 (0.0-1.0); MONOCYTES % (AUTO) 9 % (0-12); NEUTROPHILS # (AUTO) 3.5 X 10^3 (1.8-7.8); NEUTROPHILS % (AUTO) 44 % (42-75); PLATELET COUNT 195 10^3/uL (130-400); WHITE BLOOD COUNT 7.9 10^3/uL (4.3-11.0)
[2020-01-21 14:40] LABS: ALBUMIN 4.2 GM/DL (3.2-4.5); BILIRUBIN,TOTAL 0.4 MG/DL (0.1-1.0); CALCIUM 9.4 MG/DL (8.5-10.1); CREATININE SERUM 1.02 MG/DL (0.60-1.30); POTASSIUM 4.1 MMOL/L (3.6-5.0); TOTAL PROTEIN 6.8 GM/DL (6.4-8.2)
== END ==
LOC: EDSTATUS 02-05 07:52 → ONC 13:41
PROVIDERS: ATTEND Internal Medicine Hematology & Oncology
DX: C64.1 Malignant neoplasm of right kidney, except renal pelvis (principal); R16.0 Hepatomegaly, not elsewhere classified; E66.01 Morbid (severe) obesity due to excess calories; I10 Essential (primary) hypertension; M15.9 Polyosteoarthritis, unspecified; Z90.710 Acquired absence of both cervix and uterus; Z98.890 Other specified postprocedural states; Z90.5 Acquired absence of kidney; Z72.0 Tobacco use
CPT/HCPCS: 80053; 85025; G0463; 99213

== ENCOUNTER → 2020-02-03 | Outpatient (CLI) | payer MEDICARE, OTHER ==
[~2020-02-03] VITALS: Ht 157 cm; Wt 137.0 kg
[~2020-02-03] MED LIST changes: +CATHETER FLUSH 10 ML SYR IV PRN; +REGADENOSON 0.4 MG/5 ML SYR (LEXISCAN) IV ONE
[2020-02-03 08:52] VITALS: BP 135/90
--- NOTE | 2020-02-03 14:26 | Cardiology Stress Test Report ---
Stress Test Report Date of Procedure/Referring: Date of Procedure: Feb 03, 2020 PCP Jermaine Burnett MD Admitting Physician Caity Dumont MD Indications: Anterior chest pain Baseline Heart Rate: 84 Baseline Blood Pressure: Blood Pressure Systolic: 135 Blood Pressure Diastolic: 90 Baseline Vitals Vital Signs Date Time Temp Pulse Resp B/P (MAP) Pulse Ox O2 Delivery O2 Flow Rate FiO2 02/03/20 08:52 83 16 135/90 (105) 97 Room Air Baseline EKG: Baseline EKG: Normal sinus rhythm Summary After explaining the procedure to the patient, she signed a consent and then brought to the stress nuclear laboratory. Patient received 0.4 mg Lexiscan for stress test, ECG, heart rate and blood pressure were monitored continuously. Resting and stress dose of radio tracer were injected, imaging was acquired and reviewed in short axis, horizontal long axis and vertical long axis views. TID: 1.29 SSS: 12 SDS: 11 EF: 47 1. Patient tolerated Lexiscan well 2. Extracardiac attenuation affecting the quality of the images with questionab le ischemia involving the mid to apical anterior wall and anterior lateral wall 3. Transient ischemic dilatation 4. Normal left ventricle, ejection fraction 47 percent JERMAINE BURNETT MD Feb 03, 2020 14:26
== END ==
LOC: CARD 06:51
PROVIDERS: ATTEND Internal Medicine Cardiovascular Disease
DX: I10 Essential (primary) hypertension (principal); E78.2 Mixed hyperlipidemia; M19.90 Unspecified osteoarthritis, unspecified site; C64.9 Malignant neoplasm of unspecified kidney, except renal pelvis
CPT/HCPCS: 78452; 93017; A9502

== ENCOUNTER → 2020-02-04 | Outpatient (CLI) | payer MEDICARE, OTHER ==
[~2020-02-04] MED LIST changes: -CATHETER FLUSH 10 ML SYR IV PRN; -REGADENOSON 0.4 MG/5 ML SYR (LEXISCAN) IV ONE
== END ==
LOC: CARD 09:58
PROVIDERS: ATTEND Internal Medicine Cardiovascular Disease
DX: R07.89 Other chest pain (principal); C64.1 Malignant neoplasm of right kidney, except renal pelvis; E78.2 Mixed hyperlipidemia; M15.9 Polyosteoarthritis, unspecified; I10 Essential (primary) hypertension
CPT/HCPCS: 93306

== ENCOUNTER 2020-02-08 07:00 | Day surgery (SDC) | payer MEDICARE ==
[2020-02-08] VITALS (10 sets, daily range): BP systolic 106–147; BP diastolic 51–77
[~2020-02-08] VITALS: Ht 157 cm; Wt 136.0 kg
[2020-02-08] MEDS ORDERED: LIDOCAINE 1% INJ 20 ML 20 ML VIAL ONE (07:04)
[2020-02-08] MEDS ORDERED: NS IV 1000 ML 1,000 ML ONE (07:05)
[2020-02-08] MEDS ORDERED: HEParin (CATH LAB) 2,000 ML IV ONE (07:05)
--- OUTSIDE RECORDS SUMMARY | 2020-02-08 07:05 | XMS REPORT | Clinical Summary ---
Author Author [facility] Organization [facility] Address Unknown Phone Unavailable Care Team Providers Care [employer] Agent Name Role Phone Unverified, Unverified Md PCP Unavailable Source Comments Some departments are not documenting in the electronic medical record. If you d o not see the information that you expected, contact Release of Information in [facility] Kin[employer] Information Management department at [phone] for further assistan ce in locating additional records.[facility] Allergies No Known Allergies Medications Not on file Active Problems Not on file Social History Date Tobacco Use Types Packs/Day Years Used Never Assessed Sex Assigned at Date Recorded Not on file Industry Job Start Date Occupation Not on file Not on file Not on file Travel End Travel History Travel Start No recent travel history available. Last Filed Vital Signs Reading Time Taken Comments Vital Sign - - Blood Pressure - - Pulse - - Temperature - - Respiratory Rate - - Oxygen Saturation - - Inhaled Oxygen Concentration 90.5 kg (199 lb 9.6 oz) 06/06/2010 12:00 PM [employer] Weight 157.5 cm (5' 2") 06/06/2010 12:00 PM [employer] Height 36.51 06/06/2010 12:00 PM [employer] Body Mass Index Plan of Treatment Health Maintenance Due Date Last Done Comments HIV SCREENING 1971 DTAP/TDAP VACCINES (1 - 1974 Tdap) HEPATITIS C SCREENING 1974 PHYSICAL (COMPREHENSIVE) 1974 EXAM CERVICAL CANCER SCREENING 1977 BREAST CANCER SCREENING 1996 COLORECTAL CANCER 2006 SCREENING SHINGLES RECOMBINANT 2006 VACCINE (1 of 2) INFLUENZA VACCINE 04/28/2020 Results Not on filefrom Last 3 Months
--- OUTSIDE RECORDS SUMMARY | 2020-02-08 07:07 | XMS REPORT ---
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 Name Role Phone DEBORAH CARVER Unavailable PROBLEMS Type Condition ICD9-CM Code OWP86-LO Code Onset Dates Condition S tatus SNOMED Code Problem Bilateral carpal tunnel syndrome G56.03 Active 88218944 Problem Fatty liver K76.0 Active 43315404 7 Problem Mixed hyperlipidemia E78.2 Active 983242918 Problem Essential hypertension I10 Active 00638030 Problem Obstructive sleep apnea G47.33 Active 94984160 Problem Liver mass R16.0 Active 013321421 Problem Prediabetes R73.09 Active 7530301 Problem Excoriation, neurotic L98.1 Active 99571287 Problem History of tobacco use Z87.891 Active 7871442725293 Problem Isolated proteinuria without specific morphologic lesion R80.0 Active 16152059 Problem Primary osteoarthritis involving multiple joints M 15.0 Active 400601405 Problem Pulmonary emphysema, unspecified emphysema type J4 3.9 Active 70741113 Problem Chronic prescription opiate use Z79.899 Active 831296140 Problem History of renal cell cancer Z85.528 A ctive 798992178 Problem Diastolic dysfunction I51.9 Active 2523345 Problem Allergic rhinitis, unspecified J30.9 Active 16138368 Problem Generalized anxiety disorder F41.1 A ctive 16611508 Problem Paresthesia of both hands R20.2 Acti ve 917811874 Problem BMI 50.0-59.9, adult Z68.43 Active 308557063 Problem 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 Acti ve 903438323 Problem Decreased GFR R94.4 Active 598584 04 Problem Severe episode of recurrent major depressive disorder, without psychotic features F33.2 Active 35143938 Problem Restrictive lung disease J98.4 Activ e 48533794 Problem Frequent falls R29.6 Active 30487 2001 Problem Splenic artery aneurysm I72.8 Active 65719104 Problem 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 Active 226666305 Problem Gastroesophageal reflux disease, esophagitis pre sence not specified K21.9 Active 966565411 Problem Persistent depressive disorder F34.1 Active 65146285 Problem Morbid obesity with body mass index (BMI) greate r than or equal to 50 E66.01 Active 436892217 Problem Chronic kidney disease (CKD), stage 3 (moderate) N 18.3 Active 901431156 ALLERGIES No Information ENCOUNTERS Encounter Location Date Diagnosis [place] [address] [facility] [id number] [address] [place] [address] November, [facility] [address] [facility] [id number] [address] [place] [address] November, [place] [address] [facility] [id number] [address] [place] [address] 14 Oct, 2019 [place] [address] [facility] [id number] [address] [place] [address] Oct, Generalized anxiety disorder F41.1 [place] [address] [facility] [id number] [address] [place] [address] Oct, [place] [address] [facility] [id number] [address] [place] [address] Oct, [id number] [place] [address] Sep, Screening mammogram, encount er for Z12.31 [place] [address] [facility] [id number] [address] [place] [address] Sep, Generalized anxiety disorder F41.1 and Persistent depressive disorder F34.1 [place] [address] [facility] [id number] [address] [place] [address] 12 Sep, 2019 Encounter for Medicare annua l wellness exam Z00.00 ; Pulmonary emphysema, unspecified emphysema type J43.9 ; Morbid obesity with body mass index (BMI) greater than or equal to 50 E66.01 ; Chronic kidney disease (CKD), stage 3 (moderate) N18.3 ; Encounter for immunization Z23 ; Essential hypertension I10 ; Splenic artery aneurysm I72.8 ; Screening mammogram, encounter for Z12.31 ; BMI 50.0-59.9, adult Z68.43 ; Severe episode of recurrent major depressive disorder, without psychotic features F33.2 and Frequent falls R29.6 [facility] [id number] [place] [address] 09 Sep, 2019 Generalized anxiety disorder F41.1 ; Major depressive disorder, recurrent episode, mild degree F33.0 ; 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 and Other half-way (current) drug therapy Z79.899 [place] [address] [place] [id number] [place] [address] Sep, [place] [address] [place] [id number] [place] [address] Aug, Generalized anxiety disorder F41.1 [place] [address] [place] [id number] [place] [address] Aug, [place] [address] [place] [id number] [address] [place] [address] Jul, Chronic kidney disease (CKD) , stage 3 (moderate) N18.3 and History of renal cell cancer Z85.528 [place] [address] [place] [id number] [place] [address] Jul, [place] [address] [place] [id number] [address] [place] [address] Jul, Generalized anxiety disorder F41.1 [place] [address] [place] [id number] [place] [address] Jul, [place] [address] [place] [id number] [place] [address] Jul, [place] [address] [place] [id number] [place] [address] Jun, [place] [address] [place] [id number] [place] [address] Jun, [facility] [address] [facility] [id number] [address] [place] [address] Jun, Generalized anxiety disorder F41.1 [facility] [address] [facility] [id number] [address] [place] [address] Jun, [facility] [address] [facility] [id number] [address] [place] [address] Jun, Essential hypertension I10 ; Restrictive lung disease J98.4 ; Diastolic dysfunction I51.9 ; Pulmonary emphysema, unspecified emphysema type J43.9 ; Persistent depressive disorder F34.1 ; Morbid obesity with body mass index (BMI) greater than or equal to 50 E66.01 ; Mixed hyperlipidemia E78.2 and Encounter for immunization Z23 [facility] [address] [facility] [id number] [address] [place] [address] Apr, Generalized anxiety disorder F41.1 [facility] [address] [facility] [id number] [address] [place] [address] Apr, [facility] [address] [facility] [id number] [address] [place] [address] Apr, [facility] [address] [facility] [id number] [address] [place] [address] Apr, [facility] [address] [facility] [id number] [address] [place] [address] Apr, [facility] [address] [facility] [id number] [address] [place] [address] Apr, Generalized anxiety disorder F41.1 and Persistent depressive disorder F34.1 [facility] [address] [facility] [id number] [address] [place] [address] Apr, Morbid obesity with body mas s index (BMI) greater than or equal to 50 E66.01 [facility] [address] [facility] [id number] [address] [place] [address] Apr, [facility] [address] [facility] [id number] [address] [place] [address] Apr, Generalized anxiety disorder F41.1 ; Major depressive disorder, recurrent episode, mild degree F33.0 and 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 [facility] [address] [id number] [address] [place] [address] Apr, Generalized anxiety disorder F41.1 [facility] [address] [id number] [address] [place] [address] Apr, [facility] [address] [id number] [address] [place] [address] Mar, [facility] [address] [id number] [address] [place] [address] Mar, Generalized anxiety disorder F41.1 and Persistent depressive disorder F34.1 [facility] [address] [id number] [address] [place] [address] Mar, [facility] [address] [id number] [address] [place] [address] Mar, Morbid obesity with body mas s index (BMI) greater than or equal to 50 E66.01 and Encounter for immunization Z23 [facility] [address] [id number] [address] [place] [address] Mar, [facility] [address] [id number] [address] [place] [address] Mar, [facility] [address] [id number] [address] [place] [address] Mar, [facility] [address] [id number] [address] [place] [address] Mar, Generalized anxiety disorder F41.1 [facility] [address] [id number] [address] [place] [address] Mar, [facility] [address] [id number] [address] [place] [address] Feb, [facility] [address] [id number] [address] [place] [address] Feb, Morbid obesity E66.01 and Sp lenic artery aneurysm I72.8 [facility] [address] [facility] [id number] [address] [place] [address] Feb, Exercise counseling Z71.82 [facility] [address] [facility] [id number] [address] [place] [address] Feb, Generalized anxiety disorder F41.1 and Persistent depressive disorder F34.1 [place] [address] [facility] [id number] [address] [place] [address] Feb, Generalized anxiety disorder F41.1 [place] [address] [facility] [id number] [address] [place] [address] Feb, BMI 50.0-59.9, adult Z68.43 and Morbid obesity E66.01 [place] [address] [facility] [id number] [address] [place] [address] Jan, [place] [address] [facility] [id number] [address] [place] [address] Jan, Morbid obesity E66.01 and Sc reening for iron deficiency anemia Z13.0 [place] [address] [facility] [id number] [address] [place] [address] Jan, Generalized anxiety disorder F41.1 and Persistent depressive disorder F34.1 [place] [address] [facility] [id number] [address] [place] [address] Jan, Generalized anxiety disorder F41.1 ; Major depressive disorder, recurrent episode, mild degree F33.0 and 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 [facility] [address] [facility] [id number] [address] [place] [address] Jan, Generalized anxiety disorder F41.1 [facility] [address] [facility] [id number] [address] [place] [address] Jan, [facility] [address] [facility] [id number] [address] [place] [address] Jan, [facility] [address] [facility] [id number] [address] [place] [address] Dec, Morbid obesity E66.01 [facility] [address] [facility] [id number] [address] [place] [address] Dec, Generalized anxiety disorder F41.1 and Persistent depressive disorder F34.1 [facility] [address] [facility] [id number] [address] [place] [address] Dec, Generalized anxiety disorder F41.1 [place] [address] [facility] [id number] [address] [place] [address] Dec, [place] [address] [place] [id number] [place] [address] November, Essential hypertension I10 ; Prediabetes R73.09 and Mixed hyperlipidemia E78.2 [place] [address] [place] [id number] [place] [address] November, Morbid obesity E66.01 ; Esse ntial hypertension I10 ; Prediabetes R73.09 ; Mixed hyperlipidemia E78.2 ; Hammer toe of second toe of left foot M20.42 and Major depressive disorder, recurrent episode, mild degree F33.0 [place] [address] [place] [id number] [place] [address] November, Morbid obesity E66.01 [place] [address] [place] [id number] [place] [address] November, Generalized anxiety disorder F41.1 [place] [address] [facility] [id number] [address] [place] [address] November, [facility] [address] [place] [id number] [place] [address] Oct, Generalized anxiety disorder F41.1 ; Major depressive disorder, recurrent episode, mild degree F33.0 and 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 [place] [address] [facility] [id number] [address] [place] [address] Oct, [facility] [address] [id number] [address] [place] [address] Sep, [facility] [address] [facility] [id number] [address] [place] [address] Sep, [facility] [address] [facility] [id number] [address] [place] [address] Aug, Decreased GFR R94.4 ; BMI 50 .0-59.9, adult Z68.43 ; Chronic prescription opiate use Z79.899 ; Pulmonary emphysema, unspecified emphysema type J43.9 ; Gastroesophageal reflux disease, esophagitis presence not specified K21.9 and Splenic artery aneurysm I72.8 [facility] [address] [id number] [address] [place] [address] Aug, Generalized anxiety disorder F41.1 [facility] [address] [facility] [id number] [address] [place] [address] Aug, [facility] [address] [facility] [id number] [address] [place] [address] Jul, Generalized anxiety disorder F41.1 [facility] [address] [facility] [id number] [address] [place] [address] Jul, [facility] [address] [facility] [id number] [address] [place] [address] Jun, Decreased GFR R94.4 [facility] [address] [facility] [id number] [address] [place] [address] Jun, Decreased GFR R94.4 [facility] [address] [facility] [id number] [address] [place] [address] Jun, Generalized anxiety disorder F41.1 [facility] [address] [facility] [id number] [address] [place] [address] Jun, Generalized anxiety disorder F41.1 [facility] [address] [facility] [id number] [address] [place] [address] Jun, [facility] [address] [facility] [id number] [address] [place] [address] 20 May, 2018 BMI 50.0-59.9, adult Z68.43 ; Splenic artery aneurysm I72.8 ; Decreased GFR R94.4 and Encounter for weight management Z76.89 [place] [address] [facility] [id number] [address] [place] [address] May, Decreased GFR R94.4 [place] [address] [facility] [id number] [address] [place] [address] 16 May, 2018 Mixed hyperlipidemia E78.2 ; Fatty liver K76.0 and Essential hypertension I10 [place] [address] [facility] [id number] [address] [place] [address] May, Generalized anxiety disorder F41.1 ; Major depressive disorder, recurrent episode, mild degree F33.0 ; 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 and BMI 50.0-59.9, adult Z68.43 [place] [address] [facility] [id number] [address] [place] [address] May, [place] [address] [facility] [id number] [address] [place] [address] Apr, Generalized anxiety disorder F41.1 and Major depressive disorder, recurrent episode, mild degree F33.0 [place] [address] [facility] [id number] [address] [place] [address] 15 Apr, 2018 BMI 50.0-59.9, adult Z68.43 and Encounter for weight loss counseling Z71.3 [place] [address] [facility] [id number] [address] [place] [address] Apr, [place] [address] [facility] [id number] [address] [place] [address] Mar, Generalized anxiety disorder F41.1 and Major depressive disorder, recurrent episode, mild degree F33.0 [place] [address] [facility] [id number] [address] [place] [address] Mar, [place] [address] [facility] [id number] [address] [place] [address] 12 Mar, 2018 Generalized anxiety disorder F41.1 [facility] [address] [facility] [id number] [address] [place] [address] Mar, [facility] [address] [facility] [id number] [address] [place] [address] Feb, Generalized anxiety disorder F41.1 ; Major depressive disorder, recurrent episode, mild degree F33.0 and 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 [facility] [address] [id number] [address] [place] [address] Feb, Generalized anxiety disorder F41.1 and Major depressive disorder, recurrent episode, mild degree F33.0 [facility] [address] [facility] [id number] [address] [place] [address] Feb, [place] [address] [facility] [id number] [address] [place] [address] Feb, Restrictive lung disease J98 .4 ; Pulmonary emphysema, unspecified emphysema type J43.9 and Body mass index (bmi) 50-59.9 , adult Z68.43 [facility] [address] [facility] [id number] [address] [place] [address] Feb, Generalized anxiety disorder F41.1 ; Major depressive disorder, recurrent episode, mild degree F33.0 and 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 [place] [address] [facility] [id number] [address] [place] [address] Feb, [facility] [address] [facility] [id number] [address] [place] [address] Jan, [facility] [address] [facility] [id number] [address] [place] [address] Jan, Pulmonary emphysema, unspeci fied emphysema type J43.9 [facility] [address] [id number] [address] [place] [id number] Jan, Dental examination Z01.20 an d Dental caries K02.9 [facility] [address] [place] [id number] [place] [address] Jan, Generalized anxiety disorder F41.1 and Major depressive disorder, recurrent episode, mild degree F33.0 [facility] [address] [address] Jan, [facility] [address] [place] [id number] [address] [place] [address] Jan, Generalized anxiety disorder F41.1 [facility] [address] [place] [id number] [address] [place] [address] Jan, Oral abscess K12.2 and BMI 5 0.0-59.9, adult Z68.43 [place] [address] [address] Dec, BMI 50.0-59.9, adult Z68.43 and Weight loss counseling, encounter for Z71.3 [place] [address] [address] Dec, [place] [address] [address] Dec, [place] [address] [address] November, [place] [address] [address] November, [place] [address] [address] November, Pulmonary emphysema, unspeci fied emphysema type J43.9 ; Restrictive lung disease J98.4 ; BMI 50.0-59.9, adult Z68.43 ; History of renal cell cancer Z85.528 ; Essential hypertension I10 ; Mixed hyperlipidemia E78.2 and Fatty liver K76.0 [place] [address] [place] [id number] [address] [place] [address] November, Generalized anxiety disorder F41.1 [place] [address] [facility] [id number] [address] [place] [address] November, Generalized anxiety disorder F41.1 and Major depressive disorder, recurrent episode, mild degree F33.0 [facility] [address] [facility] [id number] [address] [place] [address] November, Generalized anxiety disorder F41.1 ; Major depressive disorder, recurrent episode, mild degree F33.0 and 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 [facility] [address] [facility] [id number] [address] [place] [address] November, [facility] [address] [facility] [id number] [address] [place] [address] Oct, Generalized anxiety disorder F41.1 [facility] [address] [facility] [id number] [address] [place] [address] Oct, [facility] [address] [facility] [id number] [address] [place] [address] Oct, Influenza-like illness R69 [facility] [address] [facility] [id number] [address] [place] [address] Sep, Influenza-like illness R69 [facility] [address] [facility] [id number] [address] [place] [address] Sep, Generalized anxiety disorder F41.1 [facility] [address] [facility] [id number] [address] [place] [address] Sep, [facility] [address] [facility] [id number] [address] [place] [address] Aug, [facility] [address] [facility] [id number] [address] [place] [address] Aug, [facility] [address] [facility] [id number] [address] [place] [address] Aug, Generalized anxiety disorder F41.1 [facility] [address] [facility] [id number] [address] [place] [address] Aug, Influenza-like illness R69 a nd BMI 50.0-59.9, adult Z68.43 [place] [address] [address] Jul, Fatty liver K76.0 ; Restrict jean-paul lung disease J98.4 ; Diastolic dysfunction I51.9 ; Body mass index (bmi) 50-59.9 , adult Z68.43 and Chronic prescription opiate use Z79.899 [place] [address] [address] Jul, Generalized anxiety disorder F41.1 [place] [address] [address] Jul, Generalized anxiety disorder F41.1 [place] [address] [address] Jul, 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 [place] [address] [address] Jun, Generalized anxiety disorder F41.1 [place] [address] [address] Jun, [place] [address] [address] Jun, Mixed hyperlipidemia E78.2 [place] [address] [address] Jun, Generalized anxiety disorder F41.1 [place] [address] [address] Jun, Generalized anxiety disorder F41.1 ; Major depressive disorder, recurrent episode, mild degree F33.0 and 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 [place] [address] [place] [id number] [place] [id number] May, [place] [address] [id number] May, Generalized anxiety disorder F41.1 [facility] [address] [id number] [address] [place] [id number] May, Generalized anxiety disorder F41.1 [facility] [address] [id number] [address] [place] [id number] May, 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 [facility] [address] [id number] [address] [place] [id number] Apr, Major depressive disorder, r ecurrent episode, mild degree F33.0 ; Generalized anxiety disorder F41.1 and Excoriation, neurotic L98.1 [facility] [address] [id number] [address] [place] [address] Apr, 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 [facility] [address] [id number] [address] [place] [address] Apr, Essential hypertension I10 a nd Mixed hyperlipidemia E78.2 [facility] [address] [id number] [address] [place] [address] Apr, Generalized anxiety disorder F41.1 ; Major depressive disorder, recurrent episode, mild degree F33.0 and 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 [facility] [address] [id number] [address] [place] [id number] Mar, Generalized anxiety disorder F41.1 ; Major depressive disorder, recurrent episode, mild degree F33.0 and 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 [facility] [address] [id number] [address] [place] [address] Mar, Skin lesion L98.9 [facility] [address] [id number] [address] [place] [address] Mar, 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 [facility] [address] [id number] [address] [place] [address] Mar, [facility] [address] [id number] [address] [place] [address] Mar, [facility] [address] [facility] [id number] [address] [place] [address] Feb, Major depressive disorder, r ecurrent episode, mild degree F33.0 ; Generalized anxiety disorder F41.1 and Excoriation, neurotic L98.1 [facility] [address] [facility] [id number] [address] [place] [address] Feb, Generalized anxiety disorder F41.1 [facility] [address] [facility] [id number] [address] [place] [address] Feb, 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 [facility] [address] [place] [id number] [address] [place] [address] Jan, [facility] [address] [place] [id number] [place] [address] Jan, Essential hypertension I10 ; Splenic artery aneurysm I72.8 ; Liver mass R16.0 ; Restrictive lung disease J98.4 ; Primary osteoarthritis involving multiple joints M15.0 ; Mixed hyperlipidemia E78.2 ; Bilateral carpal tunnel syndrome G56.03 ; Body mass index (bmi) 50-59.9 , adult Z68.43 and History of tobacco use Z87.891 [facility] [address] [place] [id number] [address] [place] [address] Jan, Major depressive disorder, r ecurrent episode, mild degree F33.0 and Generalized anxiety disorder F41.1 [facility] [address] [place] [id number] [address] [place] [address] Jan, [facility] [address] [place] [id number] [place] [address] Jan, Generalized anxiety disorder F41.1 and Major depressive disorder, recurrent episode, mild degree F33.0 [facility] [address] [place] [id number] [address] [place] [address] Dec, 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 [facility] [address] [facility] [id number] [address] [place] [address] Dec, Generalized anxiety disorder F41.1 [facility] [address] [facility] [id number] [address] [place] [address] Dec, [facility] [address] [facility] [id number] [address] [place] [address] Dec, Major depressive disorder, r ecurrent episode, mild degree F33.0 and Generalized anxiety disorder F41.1 [facility] [address] [facility] [id number] [address] [place] [address] Dec, Generalized anxiety disorder F41.1 and Major depressive disorder, recurrent episode, mild degree F33.0 [facility] [address] [facility] [id number] [address] [place] [address] November, Mild major depression F32.0 and Primary osteoarthritis involving multiple joints M15.0 [facility] [address] [place] [id number] [address] [place] [phone] November, Major depressive disorder, r ecurrent episode, mild degree F33.0 and Generalized anxiety disorder F41.1 [facility] [address] [place] [id number] [address] [place] [address] November, 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 ; Essential hypertension I10 ; Prediabetes R73.09 ; Mixed hyperlipidemia E78.2 ; Chronic prescription benzodiazepine use Z79.899 ; Chronic prescription opiate use Z79.899 ; Tobacco use Z72.0 ; Bilateral carpal tunnel syndrome G56.03 and Body mass index (bmi) 50-59.9 , adult Z68.43 [facility] [address] [facility] [id number] [address] [place] [address] November, 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 and Mild major depression F32.0 [facility] [address] [facility] [id number] [address] [place] [address] Oct, [facility] [address] [place] [id number] [address] [place] [address] Oct, 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 ; Essential hypertension I10 ; Prediabetes R73.09 ; Chronic prescription benzodiazepine use Z79.899 ; Chronic prescription opiate use Z79.899 ; Tobacco use Z72.0 ; Mixed hyperlipidemia E78.2 ; Bilateral carpal tunnel syndrome G56.03 ; Body mass index (bmi) 50-59.9 , adult Z68.43 and Encounter for immunization Z23 [facility] [address] [place] [id number] [address] [place] [address] Oct, Major depressive disorder, r ecurrent episode, mild degree F33.0 and Generalized anxiety disorder F41.1 [facility] [address] [place] [id number] [address] [place] [phone] Oct, [facility] [address] [place] [id number] [address] [place] [address] Oct, [facility] [address] [place] [id number] [address] [place] [phone] Sep, Mild major depression F32.0 [facility] [address] [facility] [id number] [address] [place] [address] Sep, [facility] [address] [facility] [id number] [address] [place] [address] Sep, Mild major depression F32.0 and Generalized anxiety disorder F41.1 [facility] [address] [place] [id number] [address] [place] [address] Sep, Paresthesia of both hands R2 0.2 and Cervical radiculopathy M54.12 [facility] [address] [facility] [id number] [address] [place] [address] Sep, [facility] [address] [facility] [id number] [address] [place] [address] Sep, [facility] [address] [facility] [id number] [address] [place] [address] Aug, Paresthesia of both hands R2 0.2 and Neck pain M54.2 [facility] [address] [facility] [id number] [address] [place] [address] Aug, [facility] [address] [facility] [id number] [address] [place] [address] Jul, Neck pain M54.2 and Paresthe eddie of both hands R20.2 [facility] [address] [facility] [id number] [place] [address] Jul, Proteinuria, unspecified typ e R80.9 [facility] [address] [facility] [id number] [address] [place] [address] Jul, Proteinuria, unspecified typ e R80.9 [facility] [address] [facility] [id number] [address] [place] [address] Jul, [facility] [address] [place] [id number] [place] [address] Jul, Other specified transient ce rebral ischemias G45.8 [facility] [address] [facility] [id number] [address] [place] [address] Jun, Diastolic dysfunction I51.9 [facility] [address] [facility] [id number] [address] [place] [address] Jun, Diastolic dysfunction I51.9 [facility] [address] [place] [id number] [address] [place] [address] Jun, Major depressive disorder, s david episode, unspecified F32.9 and Anxiety disorder, unspecified F41.9 [facility] [address] [facility] [id number] [address] [place] [address] Jun, [facility] [address] [facility] [id number] [place] [address] Jun, [facility] [address] [facility] [id number] [address] [place] [address] May, Moderate major depression F3 2.1 and Generalized anxiety disorder F41.1 [facility] [address] [facility] [id number] [address] [place] [address] 16 May, 2016 Major depressive disorder, s david episode, unspecified F32.9 and Anxiety disorder, unspecified F41.9 [facility] [address] [facility] [id number] [address] [place] [address] 15 May, 2016 [facility] [address] [place] [id number] [address] [place] [address] 14 May, 2016 Liver enzyme elevation R74.8 [facility] [address] [place] [id number] [address] [place] [address] 14 May, 2016 Liver enzyme elevation R74.8 [facility] [address] [address] 10 May, 2016 Shortness of breath on exert ion R06.02 ; Essential hypertension I10 ; Mixed hyperlipidemia E78.2 and Tobacco use Z72.0 [facility] [address] [place] [id number] [address] [place] [id number] 03 May, 2016 [facility] [address] [place] [id number] [address] [place] [address] 02 May, 2016 [facility] [address] [place] [id number] [address] [place] [address] 06 Apr, 2016 Anxiety F41.9 and Depression F32.9 [facility] [id number] [place] [address] Apr, [facility] [address] [facility] [id number] [address] [place] [address] Apr, [facility] [address] [facility] [id number] [address] [place] [address] Mar, Depression F32.9 and Anxiety F41.9 [facility] [address] [facility] [id number] [address] [place] [address] 08 Mar, 2016 Anxiety F41.9 and Depression F32.9 [facility] [address] [place] [id number] [address] [place] [address] Mar, Well woman exam (no gynecolo gical exam) Z00.00 [facility] [address] [id number] [address] [place] [address] Mar, [facility] [address] [id number] [address] [place] [address] Mar, [facility] [address] [id number] [address] [place] [id number] Feb, Dental caries K02.9 [facility] [address] [id number] [address] [place] [address] Feb, [facility] [address] [id number] [address] [place] [address] Feb, Anxiety F41.9 and Depression F32.9 [facility] [address] [id number] [address] [place] [id number] Feb, Dental examination Z01.20 [facility] [address] [id number] [address] [place] [address] Feb, [facility] [address] [id number] [address] [place] [address] Feb, [facility] [address] [id number] [address] [place] [address] Feb, Anxiety F41.9 and Depression F32.9 [facility] [address] [id number] [address] [place] [address] Jan, Severe episode of recurrent major depressive disorder, without psychotic features F33.2 and Anxiety disorder, unspecified F41.9 [facility] [address] [id number] [address] [place] [phone] Jan, [facility] [address] [id number] [address] [place] [address] Dec, [facility] [address] [id number] [address] [place] [address] Dec, Anxiety F41.9 and Depression F32.9 [facility] [address] [id number] [address] [place] [address] 24 Dec, 2015 Other specified transient ce rebral ischemias G45.8 and Nocturnal hypoxia G47.34 [facility] [address] [id number] [address] [place] [address] 18 Dec, 2015 [facility] [address] [id number] [address] [place] [id number] 17 Dec, 2015 Other specified transient ce rebral ischemias G45.8 [facility] [address] [id number] [address] [place] [address] 16 Dec, 2015 Severe episode of recurrent major depressive disorder, without psychotic features F33.2 and Anxiety disorder, unspecified F41.9 [facility] [address] [id number] [address] [place] [address] 13 Dec, 2015 [facility] [address] [id number] [address] [place] [address] Dec, Anxiety F41.9 and Depression F32.9 [facility] [address] [id number] [address] [place] [address] 07 Dec, 2015 Anxiety F41.9 and Depression F32.9 [facility] [address] [id number] [address] [place] [address] Dec, [facility] [address] [id number] [address] [place] [address] November, Anxiety F41.9 and Depression F32.9 [facility] [address] [id number] [address] [place] [address] November, Severe episode of recurrent major depressive disorder, without psychotic features F33.2 [facility] [address] [id number] [address] [place] [address] November, Mixed hyperlipidemia E78.2 [facility] [address] [id number] [address] [place] [address] November, Anxiety F41.9 and Depression F32.9 [facility] [address] [address] 05 Nov, 2015 Prediabetes R73.09 ; Essenti al hypertension I10 ; Anxiety F41.9 ; Depression F32.9 ; Gastroesophageal reflux disease, esophagitis presence not specified K21.9 ; Primary osteoarthritis involving multiple joints M15.0 ; History of renal cell cancer Z85.528 ; Postnasal drip R09.82 ; Allergic rhinitis, unspecified J30.9 and Tobacco use Z72.0 [facility] [address] [address] 11 Oct, 2015 Anxiety F41.9 and Depression F32.9 [facility] [address] [address] 07 Oct, 2015 [facility] [address] [address] Oct, [facility] [address] [address] 14 Sep, 2015 Splenic artery aneurysm I72. [address] [address] 10 Sep, 2015 Depression F32.9 ; Anxiety F 41.9 ; Chronic prescription benzodiazepine use Z79.899 and Splenic artery aneurysm I72.8 [facility] [address] [address] 10 Sep, 2015 Depression F32.9 and Anxiety F41.9 [facility] [address] [address] 02 Sep, [address] [address] 18 Aug, 2015 Dehydration E86.0 ; Diarrhea R19.7 ; Nausea R11.0 and Generalized abdominal pain R10.[address] [address] Aug, [facility] [address] [facility] [id number] [address] [place] [address] Jul, Depression F32.9 [facility] [address] [facility] [id number] [address] [place] [address] Jul, [facility] [address] [facility] [id number] [address] [place] [address] Jul, Anxiety F41.9 and Depression F32.9 [facility] [address] [facility] [id number] [address] [place] [address] Jul, [facility] [address] [facility] [id number] [address] [place] [address] Jun, Epigastric pain R10.13 [facility] [address] [facility] [id number] [address] [place] [address] Jun, [facility] [address] [facility] [id number] [address] [place] [address] Jun, [facility] [address] [facility] [id number] [address] [place] [address] May, [facility] [address] [facility] [id number] [address] [place] [address] May, [facility] [address] [facility] [id number] [address] [place] [address] Apr, [facility] [address] [facility] [id number] [address] [place] [address] Mar, Anxiety state, unspecified 3 00.00 ; Depression 311 ; Prediabetes 790.29 ; Generalized osteoarthrosis, involving multiple sites 715.09 and Hypertension 401.9 [facility] [address] [id number] [address] [place] [address] Mar, [facility] [address] [facility] [id number] [address] [place] [address] Feb, [facility] [address] [facility] [id number] [address] [place] [address] Jan, [facility] [address] [id number] [address] [place] [address], [place] [address] Jan, [facility] [address] [id number] [address] [place] [address] Jan, Generalized osteoarthrosis, involving multiple sites 715.09 [facility] [address] [id number] [address] [place] [address] 07 Jan, 2015 Hx of renal cell cancer V10. 52 [facility] [address] [id number] [address] [place] [address] Dec, Generalized osteoarthrosis, involving multiple sites 715.09 and Hx of renal cell cancer V10.52 [facility] [address] [id number] [address] [place] [address] Dec, [facility] [address] [id number] [address] [place] [address] Dec, [facility] [address] [id number] [address] [place] [address] November, [facility] [address] [id number] [address] [place] [address] Oct, [facility] [address] [id number] [address] [place] [address] Oct, [facility] [address] [id number] [address] [place] [address] Sep, [facility] [address] [id number] [address] [place] [address] Sep, [facility] [address] [id number] [address] [place] [address] Sep, [facility] [address] [id number] [address] [place] [address] Sep, [facility] [address] [id number] [address] [place] [address] Aug, [facility] [address] [facility] [id number] [address] [place] [address] Aug, IMMUNIZATIONS No Known Immunizations SOCIAL HISTORY Never Assessed REASON FOR VISIT PLAN OF CARE VITAL SIGNS MEDICATIONS Unknown Medications RESULTS No Results PROCEDURES No Known procedures INSTRUCTIONS MEDICATIONS ADMINISTERED No Known Medications MEDICAL (GENERAL) HISTORY Type Description Date Medical History hypertension Medical History Arthritis Medical History chronic pain-in knees bilateral and lowe r back Medical History depression Medical History cancer-right kidney 2004 Medical History obesity Medical History Tobacco use Medical History Major depressive disorder, recurrent epi sode, mild degree Surgical History breast biopsy-right breast, benign Surgical History nephrectomy-right Surgical History partial hysterectomy Surgical History bilateral carpal tunnel release Hospitalization History Hospitalization for surgery only Hospitalization History mini strokes 2016
--- OUTSIDE RECORDS SUMMARY | 2020-02-08 07:07 | XMS REPORT ---
Author Author Emilee MAY Organization [facility] Address [address] [place] [address] Care Team Providers Care Pet Stylist Name Role Phone LALO [place] Unavailable PROBLEMS Type Condition ICD9-CM Code [id number] Code Onset Dates Condition S tatus SNOMED Code Problem Mixed hyperlipidemia E78.2 Active 585462240 Problem Obstructive sleep apnea G47.33 Active 13706513 Problem Fatty liver K76.0 Active 03717271 7 Problem Prediabetes R73.09 Active 6987086 Problem Essential hypertension I10 Active 45690863 Problem Splenic artery aneurysm I72.8 Active 33529650 Problem Liver mass R16.0 Active 172321512 Problem BMI 50.0-59.9, adult Z68.43 Active 227204795 Problem Excoriation, neurotic L98.1 Active 03955045 Problem Bilateral carpal tunnel syndrome G56.03 Active 85257558 Problem Isolated proteinuria without specific morphologic lesion R80.0 Active 66398743 Problem History of renal cell cancer Z85.528 A ctive 365687318 Problem Primary osteoarthritis involving multiple joints M 15.0 Active 343154476 Problem Allergic rhinitis, unspecified J30.9 Active 65344124 Problem Chronic prescription opiate use Z79.899 Active 096943656 Problem Paresthesia of both hands R20.2 Acti ve 720944891 Problem Diastolic dysfunction I51.9 Active 3767710 Problem History of tobacco use Z87.891 Active 7814214439381 Problem Generalized anxiety disorder F41.1 A ctive 61711052 Problem 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 Acti ve 082348347 Problem Decreased GFR R94.4 Active 568290 04 Problem Gastroesophageal reflux disease, esophagitis pre sence not specified K21.9 Active 948315560 Problem Severe episode of recurrent major depressive disorder, without psychotic features F33.2 Active 66580495 Problem 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 Active 358114961 Problem Submandibular gland inflammation K11.20 Active 005614674 Problem Restrictive lung disease J98.4 Activ e 92446239 Problem Pulmonary emphysema, unspecified emphysema type J4 3.9 Active 88168093 Problem Persistent depressive disorder F34.1 Active 48699154 Problem Morbid obesity with body mass index (BMI) greate r than or equal to 50 E66.01 Active 274811216 Problem Chronic kidney disease (CKD), stage 3 (moderate) N 18.3 Active 680660368 Problem Frequent falls R29.6 Active 21965 2002 ALLERGIES No Information ENCOUNTERS Encounter Location Date Diagnosis [facility] [address] [facility] [id number] [address] [place] [phone] Jan, [facility] [address] [facility] [id number] [phone] Jan, [facility] [address] [address] Jan, [facility] [address] [place] [id number] [address] [place] [phone] Dec, [facility] [address] [facility] [id number] [address] [place] [phone] Dec, Submandibular gland inflamma tion K11.20 [facility] [address] [facility] [id number] [address] [place] [phone] Dec, Generalized anxiety disorder F41.1 ; Major depressive disorder, recurrent episode, mild degree F33.0 and 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 [facility] [id number] [place] [phone] Dec, Essential hypertension I10 a nd Chronic kidney disease (CKD), stage 3 (moderate) N18.3 [facility] [address] [facility] [id number] [address] [place] [id number] Dec, Essential hypertension I10 ; BMI 50.0-59.9, adult Z68.43 ; Primary osteoarthritis involving multiple joints M15.0 ; Chronic prescription opiate use Z79.899 ; Obstructive sleep apnea G47.33 ; Persistent depressive disorder F34.1 ; Gastroesophageal reflux disease, esophagitis presence not specified K21.9 ; Frequent falls R29.6 and Chest pain, unspecified type R07.9 [facility] [address] [id number] [address] [place] [id number] Dec, Generalized anxiety disorder F41.1 [facility] [address] [id number] [address] [place] [phone] Dec, [facility] [address] [id number] [address] [place] [phone] November, Generalized anxiety disorder F41.1 ; Major depressive disorder, recurrent episode, mild degree F33.0 and 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 [facility] [address] [id number] [address] [place] [phone] November, [facility] [address] [id number] [address] [place] [phone] November, [facility] [address] [id number] [address] [place] [id number] November, Generalized anxiety disorder F41.1 [facility] [address] [id number] [address] [place] [phone] Oct, Generalized anxiety disorder F41.1 [facility] [address] [id number] [address] [place] [phone] Oct, [facility] [address] [id number] [address] [place] [phone] Oct, [facility] [address] [id number] [address] [place] [phone] Oct, Generalized anxiety disorder F41.1 [facility] [address] [id number] [address] [place] [phone] Oct, [facility] [address] [id number] [address] [place] [phone] Oct, [id number] [place] [phone] 16 Sep, 2019 Screening mammogram, encount er for Z12.31 [place] [address] [place] [id number] [address] [place] [id number] 16 Sep, 2019 Generalized anxiety disorder F41.1 and Persistent depressive disorder F34.1 [place] [address] [place] [id number] [address] [place] [phone] 12 Sep, 2019 [facility] Z[facility].00 ; Pulmonary emphysema, unspecified [...] psychotic features F33.2 and Frequent falls R29.6 [place] [address] [place] [id number] [address] [place] [id number] 09 Sep, 2019 Generalized anxiety disorder F41.1 ; Major depressive disorder, recurrent episode, mild degree F33.0 ; 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 and 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 [place] [address] [place] [id number] [address] [place] [phone] 02 Sep, 2019 [place] [address] [place] [id number] [address] [place] [id number] 05 Aug, 2019 Generalized anxiety disorder F41.1 [place] [address] [place] [id number] [address] [place] [phone] 03 Aug, 2019 [place] [address] [place] [id number] [address] [place] [id number] 10 Jul, 2019 Chronic kidney disease (CKD) , stage 3 (moderate) N18.3 and History of renal cell cancer Z85.528 [place] [address] [place] [id number] [address] [place] [phone] Jul, [facility] [address] [facility] [id number] [address] [place] [phone] Jul, Generalized anxiety disorder F41.1 [facility] [address] [facility] [id number] [address] [place] [id number] Jul, [facility] [address] [facility] [id number] [address] [place] [phone] Jul, [facility] [address] [facility] [id number] [address] [place] [phone] Jun, [facility] [address] [facility] [id number] [address] [place] [phone] Jun, [facility] [address] [facility] [id number] [address] [place] [id number] Jun, Generalized anxiety disorder F41.1 [facility] [address] [facility] [id number] [address] [place] [phone] Jun, [facility] [address] [facility] [id number] [address] [place] [phone] Jun, Essential hypertension I10 ; Restrictive lung disease J98.4 ; Diastolic dysfunction I51.9 ; Pulmonary emphysema, unspecified emphysema type J43.9 ; Persistent depressive disorder F34.1 ; Morbid obesity with body mass index (BMI) greater than or equal to 50 E66.01 ; Mixed hyperlipidemia E78.2 and Encounter for immunization Z23 [facility] [address] [facility] [id number] [address] [place] [phone] Apr, Generalized anxiety disorder F41.1 [facility] [address] [facility] [id number] [address] [place] [phone] Apr, [facility] [address] [facility] [id number] [address] [place] [phone] Apr, [facility] [address] [facility] [id number] [address] [place] [phone] Apr, [facility] [address] [facility] [id number] [address] [place] [phone] Apr, [facility] [address] [id number] [address] [place] [phone] Apr, Generalized anxiety disorder F41.1 and Persistent depressive disorder F34.1 [facility] [address] [id number] [address] [place] [phone] Apr, Morbid obesity with body mas s index (BMI) greater than or equal to 50 E66.01 [facility] [address] [id number] [address] [place] [id number] Apr, [facility] [address] [id number] [address] [place] [phone] Apr, Generalized anxiety disorder F41.1 ; Major depressive disorder, recurrent episode, mild degree F33.0 and 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 [facility] [address] [id number] [address] [place] [phone] Apr, Generalized anxiety disorder F41.1 [facility] [address] [id number] [address] [place] [id number] Apr, [facility] [address] [id number] [address] [place] [id number] Mar, [facility] [address] [id number] [address] [place] [phone] 24 Mar, 2019 Generalized anxiety disorder F41.1 and Persistent depressive disorder F34.1 [facility] [address] [id number] [address] [place] [phone] Mar, [facility] [address] [id number] [address] [place] [phone] Mar, Morbid obesity with body mas s index (BMI) greater than or equal to 50 E66.01 and Encounter for immunization Z23 [facility] [address] [id number] [address] [place] [phone] 19 Mar, 2019 [facility] [address] [id number] [address] [place] [phone] Mar, [facility] [address] [id number] [address] [place] [phone] Mar, [facility] [address] [facility] [id number] [address] [place] [phone] Mar, Generalized anxiety disorder F41.1 [facility] [address] [id number] [address] [place] [phone] Mar, [facility] [address] [id number] [address] [place] [phone] Feb, [facility] [address] [id number] [address] [place] [phone] Feb, Morbid obesity E66.01 and Sp lenic artery aneurysm I72.8 [facility] [address] [facility] [id number] [address] [place] [phone] Feb, Exercise counseling Z71.82 [facility] [address] [facility] [id number] [address] [place] [phone] Feb, Generalized anxiety disorder F41.1 and Persistent depressive disorder F34.1 [facility] [address] [facility] [id number] [address] [place] [phone] Feb, Generalized anxiety disorder F41.1 [facility] [address] [facility] [id number] [address] [place] [id number] Feb, BMI 50.0-59.9, adult Z68.43 and Morbid obesity E66.01 [facility] [address] [id number] [address] [place] [id number] Jan, [facility] [address] [facility] [id number] [address] [place] [phone] Jan, Morbid obesity E66.01 and Sc reening for iron deficiency anemia Z13.0 [facility] [address] [facility] [id number] [address] [place] [id number] Jan, Generalized anxiety disorder F41.1 and Persistent depressive disorder F34.1 [facility] [address] [id number] [address] [place] [phone] Jan, Generalized anxiety disorder F41.1 ; Major depressive disorder, recurrent episode, mild degree F33.0 and 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 [facility] [address] [id number] [address] [place] [phone] Jan, Generalized anxiety disorder F41.1 [facility] [address] [id number] [address] [place] [phone] Jan, [facility] [address] [id number] [address] [place] [phone] Jan, [facility] [address] [facility] [id number] [address] [place] [phone] Dec, Morbid obesity E66.01 [facility] [address] [id number] [address] [place] [phone] Dec, Generalized anxiety disorder F41.1 and Persistent depressive disorder F34.1 [facility] [address] [id number] [address] [place] [phone] Dec, Generalized anxiety disorder F41.1 [facility] [address] [facility] [id number] [address] [place] [id number] Dec, [facility] [address] [id number] [address] [place] [phone] November, Essential hypertension I10 ; Prediabetes R73.09 and Mixed hyperlipidemia E78.2 [facility] [address] [id number] [address] [place] [phone] November, Morbid obesity E66.01 ; Esse ntial hypertension I10 ; Prediabetes R73.09 ; Mixed hyperlipidemia E78.2 ; Hammer toe of second toe of left foot M20.42 and Major depressive disorder, recurrent episode, mild degree F33.0 [facility] [address] [facility] [id number] [address] [place] [phone] November, Morbid obesity E66.01 [facility] [address] [facility] [id number] [address] [place] [phone] November, Generalized anxiety disorder F41.1 [facility] [address] [facility] [id number] [address] [place] [phone] November, [facility] [address] [facility] [id number] [address] [place] [phone] Oct, Generalized anxiety disorder F41.1 ; Major depressive disorder, recurrent episode, mild degree F33.0 and 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 [facility] [address] [facility] [id number] [address] [place] [phone] Oct, [facility] [address] [facility] [id number] [address] [place] [phone] Sep, [facility] [address] [place] [id number] [address] [place] [phone] Sep, [facility] [address] [place] [id number] [address] [place] [id number] Aug, Decreased GFR R94.4 ; BMI 50 .0-59.9, adult Z68.43 ; Chronic prescription opiate use Z79.899 ; Pulmonary emphysema, unspecified emphysema type J43.9 ; Gastroesophageal reflux disease, esophagitis presence not specified K21.9 and Splenic artery aneurysm I72.8 [facility] [address] [facility] [id number] [address] [place] [phone] Aug, Generalized anxiety disorder F41.1 [facility] [address] [facility] [id number] [address] [place] [id number] Aug, [facility] [address] [facility] [id number] [address] [place] [phone] Jul, Generalized anxiety disorder F41.1 [facility] [address] [facility] [id number] [address] [place] [phone] Jul, [facility] [address] [place] [id number] [address] [place] [phone] Jun, Decreased GFR R94.4 [facility] [address] [facility] [id number] [address] [place] [id number] Jun, Decreased GFR R94.4 [facility] [address] [facility] [id number] [address] [place] [phone] Jun, Generalized anxiety disorder F41.1 [facility] [address] [facility] [id number] [address] [place] [phone] Jun, Generalized anxiety disorder F41.1 [facility] [address] [facility] [id number] [address] [place] [phone] Jun, [facility] [address] [facility] [id number] [address] [place] [id number] May, BMI 50.0-59.9, adult Z68.43 ; Splenic artery aneurysm I72.8 ; Decreased GFR R94.4 and Encounter for weight management Z76.89 [facility] [address] [facility] [id number] [address] [place] [phone] May, Decreased GFR R94.4 [facility] [address] [facility] [id number] [address] [place] [id number] May, Mixed hyperlipidemia E78.2 ; Fatty liver K76.0 and Essential hypertension I10 [place] [address] [facility] [id number] [address] [place] [phone] May, Generalized anxiety disorder F41.1 ; Major depressive disorder, recurrent episode, mild degree F33.0 ; 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 and BMI 50.0-59.9, adult Z68.43 [facility] [address] [facility] [id number] [address] [place] [phone] May, [facility] [address] [facility] [id number] [address] [place] [phone] Apr, Generalized anxiety disorder F41.1 and Major depressive disorder, recurrent episode, mild degree F33.0 [facility] [address] [facility] [id number] [address] [place] [id number] 15 Apr, 2018 BMI 50.0-59.9, adult Z68.43 and Encounter for weight loss counseling Z71.3 [place] [address] [id number] [address] [place] [id number] 03 Apr, 2018 [facility] [address] [facility] [id number] [address] [place] [phone] 20 Mar, 2018 Generalized anxiety disorder F41.1 and Major depressive disorder, recurrent episode, mild degree F33.0 [place] [address] [id number] [address] [place] [phone] 18 Mar, 2018 [place] [address] [id number] [address] [place] [phone] 12 Mar, 2018 Generalized anxiety disorder F41.1 [place] [address] [facility] [id number] [address] [place] [phone] Mar, [place] [address] [facility] [id number] [address] [place] [phone] 14 Feb, 2018 Generalized anxiety disorder F41.1 ; Major depressive disorder, recurrent episode, mild degree F33.0 and 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 [place] [address] [facility] [id number] [address] [place] [phone] 13 Feb, 2018 Generalized anxiety disorder F41.1 and Major depressive disorder, recurrent episode, mild degree F33.0 [place] [address] [facility] [id number] [address] [place] [phone] Feb, [place] [address] [facility] [id number] [address] [place] [phone] Feb, Restrictive lung disease J98 .4 ; Pulmonary emphysema, unspecified emphysema type J43.9 and Body mass index (bmi) 50-59.9 , adult Z68.43 [place] [address] [id number] [address] [place] [id number] 08 Feb, 2018 Generalized anxiety disorder F41.1 ; Major depressive disorder, recurrent episode, mild degree F33.0 and 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 [facility] [address] [facility] [id number] [address] [place] [phone] Feb, [facility] [address] [facility] [id number] [address] [place] [phone] Jan, [facility] [address] [facility] [id number] [address] [place] [phone] Jan, Pulmonary emphysema, unspeci fied emphysema type J43.9 [facility] [address] [id number] [address] [place] [id number] Jan, Dental examination Z01.20 an d Dental caries K02.9 [facility] [address] [facility] [id number] [address] [place] [phone] Jan, Generalized anxiety disorder F41.1 and Major depressive disorder, recurrent episode, mild degree F33.0 [facility] [address] [place] [id number] [address] [place] [phone] Jan, [facility] [address] [facility] [id number] [address] [place] [phone] Jan, Generalized anxiety disorder F41.1 [facility] [address] [facility] [id number] [address] [place] [phone] Jan, Oral abscess K12.2 and BMI 5 0.0-59.9, adult Z68.43 [facility] [address] [place] [id number] [address] [place] [id number] Dec, BMI 50.0-59.9, adult Z68.43 and Weight loss counseling, encounter for Z71.3 [facility] [address] [facility] [id number] [address] [place] [id number] Dec, [facility] [address] [facility] [id number] [address] [place] [phone] Dec, [facility] [address] [facility] [id number] [address] [place] [phone] November, [facility] [address] [place] [id number] [address] [place] [phone] November, [facility] [address] [phone] November, Pulmonary emphysema, unspeci fied emphysema type J43.9 ; Restrictive lung disease J98.4 ; BMI 50.0-59.9, adult Z68.43 ; History of renal cell cancer Z85.528 ; Essential hypertension I10 ; Mixed hyperlipidemia E78.2 and Fatty liver K76.0 [facility] [address] [place] [id number] [address] [place] [phone] November, Generalized anxiety disorder F41.1 [place] [address] [id number] November, Generalized anxiety disorder F41.1 and Major depressive disorder, recurrent episode, mild degree F33.0 [place] [address] [phone] November, Generalized anxiety disorder F41.1 ; Major depressive disorder, recurrent episode, mild degree F33.0 and 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 [place] [address] [address] [place] [id number] [address] [place] [phone] November, [facility] [address] [place] [id number] [address] [place] [phone] Oct, Generalized anxiety disorder F41.1 [facility] [address] [place] [id number] [address] [place] [phone] Oct, [facility] [address] [id number] [address] [place] [id number] Oct, Influenza-like illness R69 [facility] [address] [id number] [address] [place] [id number] Sep, Influenza-like illness R69 [facility] [address] [id number] [address] [place] [id number] Sep, Generalized anxiety disorder F41.1 [place] [address] [facility] [id number] [address] [place] [phone] Sep, [facility] [address] [id number] [address] [place] [phone] Aug, [facility] [address] [facility] [id number] [address] [place] [id number] Aug, [facility] [address] [address] Aug, Generalized anxiety disorder F41.1 [facility] [address] [facility] [id number] [address] [place] [phone] Aug, Influenza-like illness R69 a nd BMI 50.0-59.9, adult Z68.43 [facility] [address] [id number] [address] [place] [id number] Jul, Fatty liver K76.0 ; Restrict jean-paul lung disease J98.4 ; Diastolic dysfunction I51.9 ; Body mass index (bmi) 50-59.9 , adult Z68.43 and Chronic prescription opiate use Z79.899 [facility] [address] [id number] [address] [place] [id number] Jul, Generalized anxiety disorder F41.1 [facility] [address] [id number] [address] [place] [phone] Jul, Generalized anxiety disorder F41.1 [facility] [address] [id number] [address] [place] [id number] Jul, 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 [facility] [address] [facility] [id number] [address] [place] [id number] Jun, Generalized anxiety disorder F41.1 [facility] [address] [id number] [address] [place] [phone] Jun, [facility] [address] [id number] [address] [place] [phone] Jun, Mixed hyperlipidemia E78.2 [place] [address] [id number] [address] [place] [phone] Jun, Generalized anxiety disorder F41.1 [place] [address] [id number] [address] [place] [id number] Jun, Generalized anxiety disorder F41.1 ; Major depressive disorder, recurrent episode, mild degree F33.0 and 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 [place] [address] [id number] [address] [place] [id number] May, [place] [address] [id number] [address] [place] [id number] May, Generalized anxiety disorder F41.1 [place] [address] [facility] [id number] [address] [place] [phone] May, Generalized anxiety disorder F41.1 [place] [address] [facility] [id number] [address] [place] [id number] May, 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 [place] [address] [id number] [address] [place] [phone] Apr, Major depressive disorder, r ecurrent episode, mild degree F33.0 ; Generalized anxiety disorder F41.1 and Excoriation, neurotic L98.1 [place] [address] [id number] [address] [place] [phone] Apr, 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 [place] [address] [id number] [address] [place] [id number] Apr, Essential hypertension I10 a nd Mixed hyperlipidemia E78.2 [place] [address] [id number] [address] [place] [id number] Apr, Generalized anxiety disorder F41.1 ; Major depressive disorder, recurrent episode, mild degree F33.0 and 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 [place] [address] [facility] [id number] [address] [place] [phone] Mar, Generalized anxiety disorder F41.1 ; Major depressive disorder, recurrent episode, mild degree F33.0 and 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 [facility] [address] [id number] [address] [place] [phone] Mar, Skin lesion L98.9 [facility] [address] [id number] [address] [place] [id number] Mar, 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 [facility] [address] [id number] [address] [place] [phone] Mar, [facility] [address] [id number] [address] [place] [phone] Mar, [place] [address] [id number] [address] [place] [phone] Feb, Major depressive disorder, r ecurrent episode, mild degree F33.0 ; Generalized anxiety disorder F41.1 and Excoriation, neurotic L98.1 [facility] [address] [id number] [address] [place] [phone] Feb, Generalized anxiety disorder F41.1 [place] [address] [facility] [id number] [address] [place] [phone] Feb, 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 [facility] [address] [facility] [id number] [address] [place] [phone] Jan, [facility] [address] [facility] [id number] [address] [place] [id number] Jan, Essential hypertension I10 ; Splenic artery aneurysm I72.8 ; Liver mass R16.0 ; Restrictive lung disease J98.4 ; Primary osteoarthritis involving multiple joints M15.0 ; Mixed hyperlipidemia E78.2 ; Bilateral carpal tunnel syndrome G56.03 ; Body mass index (bmi) 50-59.9 , adult Z68.43 and History of tobacco use Z87.891 [place] [address] [facility] [id number] [address] [place] [phone] Jan, Major depressive disorder, r ecurrent episode, mild degree F33.0 and Generalized anxiety disorder F41.1 [facility] [address] [id number] [address] [place] [id number] Jan, [facility] [address] [id number] [address] [place] [phone] Jan, Generalized anxiety disorder F41.1 and Major depressive disorder, recurrent episode, mild degree F33.0 [facility] [address] [id number] [address] [place] [id number] Dec, 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 [facility] [address] [id number] [address] [place] [phone] Dec, Generalized anxiety disorder F41.1 [facility] [address] [id number] [address] [place] [phone] Dec, [facility] [address] [id number] [address] [place] [phone] Dec, Major depressive disorder, r ecurrent episode, mild degree F33.0 and Generalized anxiety disorder F41.1 [facility] [address] [id number] [address] [place] [phone] Dec, Generalized anxiety disorder F41.1 and Major depressive disorder, recurrent episode, mild degree F33.0 [facility] [address] [id number] [address] [place] [id number] November, Mild major depression F32.0 and Primary osteoarthritis involving multiple joints M15.0 [facility] [address] [id number] [address] [place] [phone] November, Major depressive disorder, r ecurrent episode, mild degree F33.0 and Generalized anxiety disorder F41.1 [facility] [address] [id number] [address] [place] [phone] November, 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 ; Essential hypertension I10 ; Prediabetes R73.09 ; Mixed hyperlipidemia E78.2 ; Chronic prescription benzodiazepine use Z79.899 ; Chronic prescription opiate use Z79.899 ; Tobacco use Z72.0 ; Bilateral carpal tunnel syndrome G56.03 and Body mass index (bmi) 50-59.9 , adult Z68.43 [place] [address] [facility] [id number] [address] [place] [id number] November, 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 and Mild major depression F32.0 [place] [address] [facility] [id number] [address] [place] [phone] Oct, [place] [id number] [place] [phone] Oct, 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 ; Essential hypertension I10 ; Prediabetes R73.09 ; Chronic prescription benzodiazepine 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 ; Chronic prescription opiate use Z79.899 ; Tobacco use Z72.0 ; Mixed hyperlipidemia E78.2 ; Bilateral carpal tunnel syndrome G56.03 ; Body mass index (bmi) 50-59.9 , adult Z68.43 and Encounter for immunization Z23 [place] [address] [address] Oct, Major depressive disorder, r ecurrent episode, mild degree F33.0 and Generalized anxiety disorder F41.1 [place] [address] [facility] [id number] [address] [place] [phone] Oct, [place] [address] [facility] [id number] [address] [place] [phone] Oct, [place] [address] [facility] [id number] [address] [place] [phone] Sep, Mild major depression F32.0 [place] [address] [facility] [id number] [address] [place] [phone] Sep, [place] [address] [facility] [id number] [address] [place] [phone] Sep, Mild major depression F32.0 and Generalized anxiety disorder F41.1 [facility] [address] [facility] [id number] [address] [place] [phone] Sep, Paresthesia of both hands R2 0.2 and Cervical radiculopathy M54.12 [facility] [address] [facility] [id number] [address] [place] [phone] Sep, [facility] [id number] [place] [phone] Sep, [facility] [address] [facility] [id number] [address] [place] [phone] Aug, Paresthesia of both hands R2 0.2 and Neck pain M54.2 [facility] [address] [facility] [id number] [address] [place] [phone] Aug, [facility] [id number] [place] [phone] Jul, Neck pain M54.2 and Paresthe eddie of both hands R20.2 [facility] [address] [facility] [id number] [address] [place] [phone] Jul, Proteinuria, unspecified typ e R80.9 [place] [address] [phone] Jul, Proteinuria, unspecified typ e R80.9 [facility] [address] [phone] Jul, [facility] [address] [id number] Jul, Other specified transient ce rebral ischemias G45.8 [place] [id number] [place] [phone] Jun, Diastolic dysfunction I51.9 [facility] [address] [id number] Jun, Diastolic dysfunction I51.9 [place] [id number] [place] [phone] Jun, Major depressive disorder, s david episode, unspecified F32.9 and Anxiety disorder, unspecified F41.9 [facility] [address] [facility] [id number] [address] [place] [phone] Jun, [facility] [address] [facility] [id number] [address] [place] [phone] Jun, [facility] [address] [facility] [id number] [address] [place] [phone] May, Moderate major depression F3 2.1 and Generalized anxiety disorder F41.1 [facility] [address] [facility] [id number] [address] [place] [id number] 16 May, 2016 Major depressive disorder, s david episode, unspecified F32.9 and Anxiety disorder, unspecified F41.9 [facility] [id number] [place] [phone] 15 May, 2016 [facility] [id number] [address] [place] [id number] May, Liver enzyme elevation R74.8 [place] [id number] [place] [id number] 14 May, 2016 Liver enzyme elevation R74.8 [place] [id number] [place] [phone] 10 May, 2016 Shortness of breath on exert ion R06.02 ; Essential hypertension I10 ; Mixed hyperlipidemia E78.2 and Tobacco use Z72.0 [facility] [address] [facility] [id number] [address] [place] [id number] May, [facility] [address] [facility] [id number] [address] [place] [phone] May, [facility] [id number] [address] [place] [id number] 06 Apr, 2016 Anxiety F41.9 and Depression F32.9 [facility] [address] [id number] [address] [place] [phone] Apr, [facility] [address] [id number] [address] [place] [phone] Apr, [facility] [address] [id number] [address] [place] [phone] Mar, Depression F32.9 and Anxiety F41.9 [facility] [address] [id number] [address] [place] [phone] 08 Mar, 2016 Anxiety F41.9 and Depression F32.9 [facility] [address] [id number] [address] [place] [phone] Mar, Well woman exam (no gynecolo gical exam) Z00.00 [facility] [address] [id number] [address] [place] [phone] Mar, [facility] [address] [id number] [address] [place] [id number] Mar, [facility] [address] [id number] [address] [place] [id number] Feb, Dental caries K02.9 [facility] [address] [id number] [address] [place] [phone] Feb, [facility] [address] [id number] [address] [place] [phone] Feb, Anxiety F41.9 and Depression F32.9 [facility] [address] [id number] [address] [place] [id number] Feb, Dental examination Z01.20 [facility] [address] [id number] [address] [place] [phone] Feb, [facility] [address] [id number] [address] [place] [phone] Feb, [facility] [address] [id number] [address] [place] [phone] Feb, Anxiety F41.9 and Depression F32.9 [facility] [address] [id number] [address] [place] [phone] Jan, Severe episode of recurrent major depressive disorder, without psychotic features F33.2 and Anxiety disorder, unspecified F41.9 [facility] [address] [id number] [address] [place] [phone] Jan, [facility] [address] [id number] [address] [place] [phone] Dec, [facility] [address] [id number] [address] [place] [phone] Dec, Anxiety F41.9 and Depression F32.9 [place] [address] [id number] [address] [place] [phone] 24 Dec, 2015 Other specified transient ce rebral ischemias G45.8 and Nocturnal hypoxia G47.34 [place] [address] [id number] [address] [place] [phone] 18 Dec, 2015 [facility] [address] [id number] [address] [place] [id number] 17 Dec, 2015 Other specified transient ce rebral ischemias G45.8 [facility] [address] [id number] [address] [place] [id number] 16 Dec, 2015 Severe episode of recurrent major depressive disorder, without psychotic features F33.2 and Anxiety disorder, unspecified F41.9 [facility] [address] [id number] [address] [place] [phone] Dec, [facility] [address] [id number] [address] [place] [phone] Dec, Anxiety F41.9 and Depression F32.9 [facility] [address] [id number] [address] [place] [id number] 07 Dec, 2015 Anxiety F41.9 and Depression F32.9 [facility] [address] [id number] [address] [place] [id number] Dec, [place] [address] [facility] [id number] [address] [place] [phone] November, Anxiety F41.9 and Depression F32.9 [place] [address] [facility] [id number] [address] [place] [phone] November, Severe episode of recurrent major depressive disorder, without psychotic features F33.2 [place] [address] [id number] [place] [phone] November, Mixed hyperlipidemia E78.2 [place] [address] [facility] [id number] [address] [place] [phone] November, Anxiety F41.9 and Depression F32.9 [place] [id number] [place] [id number] November, Prediabetes R73.09 ; Essenti al hypertension I10 ; Anxiety F41.9 ; Depression F32.9 ; Gastroesophageal reflux disease, esophagitis presence not specified K21.9 ; Primary osteoarthritis involving multiple joints M15.0 ; History of renal cell cancer Z85.528 ; Postnasal drip R09.82 ; Allergic rhinitis, unspecified J30.9 and Tobacco use Z72.0 [place] [id number] [place] [phone] Oct, Anxiety F41.9 and Depression F32.9 [place] [id number] [place] [phone] Oct, [place] [address] [facility] [id number] [address] [place] [id number] Oct, [place] [address] [id number] [place] [id number] 14 Sep, 2015 Splenic artery aneurysm I72. 8 [place] [id number] [place] [id number] 10 Sep, 2015 Depression F32.9 ; Anxiety F 41.9 ; Chronic prescription benzodiazepine use Z79.899 and Splenic artery aneurysm I72.8 [facility] [address] [facility] [id number] [address] [place] [phone] Sep, Depression F32.9 and Anxiety F41.9 [facility] [address] [facility] [id number] [address] [place] [phone] Sep, [facility] [address] [facility] [id number] [address] [place] [phone] Aug, Dehydration E86.0 ; Diarrhea R19.7 ; Nausea R11.0 and Generalized abdominal pain R10.84 [facility] [address] [facility] [id number] [address] [place] [phone] Aug, [facility] [id number] [place] [phone] Jul, Depression F32.9 [facility] [id number] [place] [phone] Jul, [facility] [address] [facility] [id number] [address] [place] [phone] Jul, Anxiety F41.9 and Depression F32.9 [facility] [address] [facility] [id number] [address] [place] [phone] Jul, [facility] [id number] [place] [phone] Jun, Epigastric pain R10.13 [facility] [address] [facility] [id number] [address] [place] [phone] Jun, [facility] [address] [facility] [id number] [address] [place] [phone] Jun, [facility] [id number] [place] [id number] May, [facility] [id number] [place] [phone] May, [facility] [id number] [place] [id number] Apr, [facility] [address] [id number] [address] [place] [id number] Mar, Anxiety state, unspecified 3 00.00 ; Depression 311 ; Prediabetes 790.29 ; Generalized osteoarthrosis, involving multiple sites 715.09 and Hypertension 401.9 [facility] [address] [id number] [address] [place] [phone] Mar, [facility] [address] [id number] [address] [place] [phone] Feb, [facility] [address] [id number] [address] [place] [phone] Jan, [facility] [address] [id number] [address] [place] [phone] Jan, [facility] [address] [id number] [address] [place] [phone] Jan, Generalized osteoarthrosis, involving multiple sites 715.09 [facility] [address] [id number] [address] [place] [phone] Jan, Hx of renal cell cancer V10. 52 [facility] [address] [id number] [address] [place] [phone] Dec, Generalized osteoarthrosis, involving multiple sites 715.09 and Hx of renal cell cancer V10.52 [facility] [address] [id number] [address] [place] [phone] Dec, [facility] [address] [id number] [address] [place] [phone] Dec, [facility] [address] [id number] [address] [place] [phone] November, [facility] [address] [id number] [address] [place] [phone] Oct, [facility] [address] [id number] [address] [place] [phone] Oct, [facility] [address] [facility] [id number] [address] [place] [phone] Sep, [facility] [address] [facility] [id number] [address] [place] [phone] Sep, [facility] [address] [facility] [id number] [address] [place] [phone] Sep, [facility] [address] [facility] [id number] [address] [place] [phone] Sep, [facility] [address] [facility] [id number] [address] [place] [phone] Aug, [facility] [address] [facility] [id number] [address] [place] [phone] Aug, IMMUNIZATIONS No Known Immunizations SOCIAL HISTORY Never Assessed REASON FOR VISIT Controlled Mediation Refill PLAN OF CARE VITAL SIGNS MEDICATIONS Medication Instructions Dosage Frequency Start Date End Date Duration S tatus Hydrocodone-Acetaminophen 5-325 MG Orally 2 times a day as n eeded for pain take 1 tablet Oct, 28 Active RESULTS No Results PROCEDURES No Known procedures [...]
--- OUTSIDE RECORDS SUMMARY | 2020-02-08 07:08 | XMS REPORT ---
Author Author Emilee Lao Doctor Organization [facility] Address Unknown Phone Unavailable Care Team Providers Care Jewel Stripper Name Role Phone Migration, Doctor Unavailable Unavailable PROBLEMS Type Condition ICD9-CM Code [id number] Code Onset Dates Condition S tatus SNOMED Code Problem Isolated proteinuria without specific morphologic lesion R80.0 Active 49379722 Problem Mixed hyperlipidemia E78.2 Active 445906129 Problem Bilateral carpal tunnel syndrome G56.03 Active 77716860 Problem Obstructive sleep apnea G47.33 Active 93285019 Problem Fatty liver K76.0 Active 41503448 7 Problem Prediabetes R73.09 Active 6850746 Problem Essential hypertension I10 Active 22561334 Problem Paresthesia of both hands R20.2 Acti ve 393875014 Problem Diastolic dysfunction I51.9 Active 7534919 Problem Pulmonary emphysema, unspecified emphysema type J4 3.9 Active 77942183 Problem 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 Active 646153150 Problem Chronic prescription benzodiazepine use Z79.899 Active 173582083 Problem Primary osteoarthritis involving multiple joints M 15.0 Active 722885808 Problem Chronic prescription opiate use Z79.899 Active 241424109 Problem History of renal cell cancer Z85.528 A ctive 737430713 Problem Allergic rhinitis, unspecified J30.9 Active 15214420 Problem Tobacco use Z72.0 Active 99976825 0 Problem Body mass index (bmi) 50-59.9 , adult Z68.43 Active 382487466 Problem Major depressive disorder, recurrent episode, mild degree F33.0 Active 208485728 Problem Generalized anxiety disorder F41.1 A ctive 82848539 Problem Decreased GFR R94.4 Active 592157 04 Problem Splenic artery aneurysm I72.8 Active 04221066 Problem Gastroesophageal reflux disease, esophagitis pre sence not specified K21.9 Active 533092932 Problem Liver mass R16.0 Active 619467741 Problem Restrictive lung disease J98.4 Activ e 43417129 Problem History of tobacco use Z87.891 Active 0306989794229 Problem Excoriation, neurotic L98.1 Active 11907459 Problem BMI 50.0-59.9, adult Z68.43 Active 024666178 Problem 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 Acti ve [id number] ALLERGIES No Information ENCOUNTERS Encounter Location Date Diagnosis [facility] [place] [address] [id number] [address] [place] [phone] Jan, [facility] [place] [address] [facility] [id number] [address] [place] [phone] November, [facility] [place] [address] [id number] [address] [place] [phone] November, [facility] [place] [address] [facility] [id number] [place] [phone] November, [facility] [place] [address] [facility] [id number] [address] [place] [phone] Oct, Generalized anxiety disorder F41.1 ; Major depressive disorder, recurrent episode, mild degree F33.0 and 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 [facility] [place] [address] [facility] [id number] [address] [place] [phone] Oct, [facility] [place] [address] [facility] [id number] [address] [place] [phone] Sep, [facility] [place] [address] [facility] [id number] [address] [place] [phone] Sep, [facility] [place] [address] [facility] [id number] [address] [place] [phone] Aug, Decreased GFR R94.4 ; BMI 50 .0-59.9, adult Z68.43 ; Chronic prescription opiate use Z79.899 ; Pulmonary emphysema, unspecified emphysema type J43.9 ; Gastroesophageal reflux disease, esophagitis presence not specified K21.9 and Splenic artery aneurysm I72.8 [facility] [place] [address] [facility] [id number] [address] [place] [phone] Aug, Generalized anxiety disorder F41.1 [facility] [place] [address] [facility] [id number] [address] [place] [phone] Aug, [facility] [place] [address] [id number] [address] [place] [phone] Jul, Generalized anxiety disorder F41.1 [facility] [place] [address] [facility] [id number] [address] [place] [id number] Jul, [facility] [place] [address] [facility] [id number] [address] [place] [phone] Jun, Decreased GFR R94.4 [facility] [place] [address] [id number] [address] [place] [phone] Jun, Decreased GFR R94.4 [facility] [place] [address] [facility] [id number] [address] [place] [phone] Jun, Generalized anxiety disorder F41.1 [facility] [place] [address] [facility] [id number] [address] [place] [phone] Jun, Generalized anxiety disorder F41.1 [facility] [place] [address] [facility] [id number] [address] [place] [id number] Jun, [facility] [place] [address] [facility] [id number] [address] [place] [phone] May, BMI 50.0-59.9, adult Z68.43 ; Splenic artery aneurysm I72.8 ; Decreased GFR R94.4 and Encounter for weight management Z76.89 [facility] [place] [address] [facility] [id number] [address] [place] [phone] May, Decreased GFR R94.4 [facility] [place] [address] [facility] [id number] [address] [place] [phone] May, Mixed hyperlipidemia E78.2 ; Fatty liver K76.0 and Essential hypertension I10 [facility] [place] [address] [facility] [id number] [address] [place] [phone] May, Generalized anxiety disorder F41.1 ; Major depressive disorder, recurrent episode, mild degree F33.0 ; 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 and BMI 50.0-59.9, adult Z68.43 [facility] [place] [address] [id number] [address] [place] [phone] May, [facility] [place] [address] [id number] [address] [place] [phone] 31 Apr, 2018 Generalized anxiety disorder F41.1 and Major depressive disorder, recurrent episode, mild degree F33.0 [facility] [place] [address] [id number] [address] [place] [phone] 15 Apr, 2018 BMI 50.0-59.9, adult Z68.43 and Encounter for weight loss counseling Z71.3 [facility] [address] [id number] [address] [place] [phone] 03 Apr, 2018 [place] [address] [id number] [address] [place] [phone] 20 Mar, 2018 Generalized anxiety disorder F41.1 and Major depressive disorder, recurrent episode, mild degree F33.0 [facility] [place] [address] [id number] [address] [place] [phone] 18 Mar, 2018 [facility] [place] [address] [id number] [address] [place] [phone] 12 Mar, 2018 Generalized anxiety disorder F41.1 [place] [place] [address] [id number] [address] [place] [phone] Mar, [facility] [place] [address] [id number] [address] [place] [phone] 14 Feb, 2018 Generalized anxiety disorder F41.1 ; Major depressive disorder, recurrent episode, mild degree F33.0 and 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 [facility] [place] [address] [id number] [address] [place] [phone] 13 Feb, 2018 Generalized anxiety disorder F41.1 and Major depressive disorder, recurrent episode, mild degree F33.0 [facility] [place] [address] [id number] [address] [place] [phone] Feb, [facility] [place] [address] [facility] [id number] [address] [place] [phone] Feb, Restrictive lung disease J98 .4 ; Pulmonary emphysema, unspecified emphysema type J43.9 and Body mass index (bmi) 50-59.9 , adult Z68.43 [facility] [place] [address] [id number] [address] [place] [phone] Feb, Generalized anxiety disorder F41.1 ; Major depressive disorder, recurrent episode, mild degree F33.0 and 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 [facility] [place] [address] [id number] [address] [place] [phone] Feb, [facility] [place] [address] [id number] [address] [place] [phone] Jan, [facility] [place] [address] [id number] [address] [place] [phone] Jan, Pulmonary emphysema, unspeci fied emphysema type J43.9 [facility] [address] [id number] [address] [place] [id number] Jan, Dental examination Z01.20 an d Dental caries K02.9 [facility] [place] [address] [facility] [id number] [address] [place] [phone] Jan, Generalized anxiety disorder F41.1 and Major depressive disorder, recurrent episode, mild degree F33.0 [facility] [place] [address] [id number] [address] [place] [phone] Jan, [facility] [place] [address] [facility] [id number] [address] [place] [phone] Jan, Generalized anxiety disorder F41.1 [facility] [address] [id number] [address] [place] [phone] Jan, Oral abscess K12.2 and BMI 5 0.0-59.9, adult Z68.43 [facility] [place] [address] [id number] [address] [place] [phone] Dec, BMI 50.0-59.9, adult Z68.43 and Weight loss counseling, encounter for Z71.3 [facility] [place] [address] [facility] [id number] [address] [place] [phone] Dec, [facility] [place] [address] [facility] [id number] [address] [place] [phone] Dec, [facility] [place] [address] [place] [id number] [address] [place] [phone] November, [facility] [place] [address] [place] [id number] [address] [place] [phone] November, [facility] [place] [address] [place] [id number] [address] [place] [phone] November, Pulmonary emphysema, unspeci fied emphysema type J43.9 ; Restrictive lung disease J98.4 ; BMI 50.0-59.9, adult Z68.43 ; History of renal cell cancer Z85.528 ; Essential hypertension I10 ; Mixed hyperlipidemia E78.2 and Fatty liver K76.0 [place] [address] [place] [id number] [address] [place] [phone] November, Generalized anxiety disorder F41.1 [place] [address] [place] [id number] [address] [place] [phone] November, Generalized anxiety disorder F41.1 and Major depressive disorder, recurrent episode, mild degree F33.0 [place] [address] [place] [id number] [address] [place] [phone] November, Generalized anxiety disorder F41.1 ; Major depressive disorder, recurrent episode, mild degree F33.0 and 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 [place] [address] [facility] [id number] [address] [place] [phone] November, [place] [address] [place] [id number] [address] [place] [phone] Oct, Generalized anxiety disorder F41.1 [place] [address] [place] [id number] [address] [place] [phone] Oct, [facility] [place] [address] [facility] [id number] [address] [place] [phone] Oct, Influenza-like illness R69 [facility] [place] [id number] [place] [phone] Sep, Influenza-like illness R69 [facility] [place] [address] [place] [id number] [address] [place] [phone] Sep, Generalized anxiety disorder F41.1 [facility] [place] [address] [facility] [id number] [address] [place] [phone] Sep, [facility] [place] [address] [phone] Aug, [facility] [place] [address] [phone] Aug, [facility] [place] [address] [phone] Aug, Generalized anxiety disorder F41.1 [facility] [address] [place] [id number] [address] [place] [phone] Aug, Influenza-like illness R69 a nd BMI 50.0-59.9, adult Z68.43 [facility] [place] [address] [place] [id number] [address] [place] [phone] Jul, Fatty liver K76.0 ; Restrict jean-paul lung disease J98.4 ; Diastolic dysfunction I51.9 ; Body mass index (bmi) 50-59.9 , adult Z68.43 and Chronic prescription opiate use Z79.899 [facility] [place] [address] [place] [id number] [address] [place] [phone] Jul, Generalized anxiety disorder F41.1 [facility] [place] [address] [place] [id number] [address] [place] [phone] Jul, Generalized anxiety disorder F41.1 [facility] [place] [address] [place] [id number] [address] [place] [phone] Jul, 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 [facility] [place] [address] [id number] [address] [place] [id number] Jun, Generalized anxiety disorder F41.1 [facility] [place] [address] [id number] [address] [place] [phone] Jun, [facility] [place] [address] [id number] [address] [place] [phone] Jun, Mixed hyperlipidemia E78.2 [facility] [place] [address] [id number] [address] [place] [phone] Jun, Generalized anxiety disorder F41.1 [facility] [place] [address] [id number] [address] [place] [phone] Jun, Generalized anxiety disorder F41.1 ; Major depressive disorder, recurrent episode, mild degree F33.0 and 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 [facility] [place] [address] [id number] [address] [place] [phone] May, [facility] [place] [address] [id number] [address] [place] [phone] May, Generalized anxiety disorder F41.1 [facility] [place] [address] [id number] [address] [place] [phone] May, Generalized anxiety disorder F41.1 [facility] [place] [address] [id number] [address] [place] [phone] May, 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 [facility] [place] [address] [id number] [address] [place] [phone] Apr, Major depressive disorder, r ecurrent episode, mild degree F33.0 ; Generalized anxiety disorder F41.1 and Excoriation, neurotic L98.1 [facility] [place] [address] [id number] [address] [place] [phone] Apr, 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 [facility] [place] [address] [id number] [address] [place] [phone] Apr, Essential hypertension I10 a nd Mixed hyperlipidemia E78.2 [facility] [place] [address] [id number] [address] [place] [phone] Apr, Generalized anxiety disorder F41.1 ; Major depressive disorder, recurrent episode, mild degree F33.0 and 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 [facility] [place] [address] [id number] [address] [place] [phone] Mar, Generalized anxiety disorder F41.1 ; Major depressive disorder, recurrent episode, mild degree F33.0 and 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 [facility] [place] [address] [id number] [address] [place] [phone] Mar, Skin lesion L98.9 [facility] [place] [address] [id number] [address] [place] [phone] Mar, 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 [facility] [place] [address] [id number] [address] [place] [phone] Mar, [facility] [place] [address] [id number] [address] [place] [phone] Mar, [facility] [place] [address] [id number] [address] [place] [id number] Feb, Major depressive disorder, r ecurrent episode, mild degree F33.0 ; Generalized anxiety disorder F41.1 and Excoriation, neurotic L98.1 [facility] [place] [address] [id number] [address] [place] [phone] Feb, Generalized anxiety disorder F41.1 [facility] [place] [address] [id number] [address] [place] [phone] Feb, 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 [facility] [place] [address] [id number] [address] [place] [phone] Jan, [facility] [place] [address] [id number] [address] [place] [id number] Jan, Essential hypertension I10 ; Splenic artery aneurysm I72.8 ; Liver mass R16.0 ; Restrictive lung disease J98.4 ; Primary osteoarthritis involving multiple joints M15.0 ; Mixed hyperlipidemia E78.2 ; Bilateral carpal tunnel syndrome G56.03 ; Body mass index (bmi) 50-59.9 , adult Z68.43 and History of tobacco use Z87.891 [facility] [place] [address] [facility] [id number] [address] [place] [phone] Jan, Major depressive disorder, r ecurrent episode, mild degree F33.0 and Generalized anxiety disorder F41.1 [facility] [place] [address] [facility] [id number] [address] [place] [phone] Jan, [facility] [place] [address] [facility] [id number] [address] [place] [phone] Jan, Generalized anxiety disorder F41.1 and Major depressive disorder, recurrent episode, mild degree F33.0 [facility] [place] [address] [facility] [id number] [address] [place] [phone] Dec, 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 [facility] [place] [address] [facility] [id number] [address] [place] [phone] Dec, Generalized anxiety disorder F41.1 [facility] [place] [address] [facility] [id number] [address] [place] [phone] Dec, [facility], [place], [facility] [address] [facility] [id number] [address] [place] [phone] Dec, Major depressive disorder, r ecurrent episode, mild degree F33.0 and Generalized anxiety disorder F41.1 [facility], [place], [facility] [address] [facility] [id number] [address] [place] [phone] Dec, Generalized anxiety disorder F41.1 and Major depressive disorder, recurrent episode, mild degree F33.0 [facility], [place], [facility] [address] [facility] [id number] [address] [place] [phone] November, Mild major depression F32.0 and Primary osteoarthritis involving multiple joints M15.0 [place] [id number] [facility] [id number] [address] [place] [phone] November, Major depressive disorder, r ecurrent episode, mild degree F33.0 and Generalized anxiety disorder F41.1 [place] [id number] [facility] [id number] [address] [place] [phone] November, 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 ; Essential hypertension I10 ; Prediabetes R73.09 ; Mixed hyperlipidemia E78.2 ; Chronic prescription benzodiazepine use Z79.899 ; Chronic prescription opiate use Z79.899 ; Tobacco use Z72.0 ; Bilateral carpal tunnel syndrome G56.03 and Body mass index (bmi) 50-59.9 , adult Z68.43 [place] [address] [place] [id number] [address] [place] [phone] November, 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 and Mild major depression F32.0 [place] [address] [facility] [id number] [address] [place] [phone] Oct, [place] [address] [facility] [id number] [address] [place] [phone] Oct, 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 ; Essential hypertension I10 ; Prediabetes R73.09 ; Chronic prescription benzodiazepine use Z79.899 ; Chronic prescription opiate use Z79.899 ; Tobacco use Z72.0 ; Mixed hyperlipidemia E78.2 ; Bilateral carpal tunnel syndrome G56.03 ; Body mass index (bmi) 50-59.9 , adult Z68.43 and Encounter for immunization Z23 [place] [address] [address] [facility] [id number] [address] [place] [phone] Oct, Major depressive disorder, r ecurrent episode, mild degree F33.0 and Generalized anxiety disorder F41.1 [place] [address] [facility] [id number] [address] [place] [phone] Oct, [place] [address] [address] [place] [id number] [address] [place] [id number] Oct, [facility] [place] [address] [facility] [id number] [address] [place] [phone] Sep, Mild major depression F32.0 [facility] [place] [address] [facility] [id number] [address] [place] [id number] Sep, [facility] [place] [address] [facility] [id number] [address] [place] [id number] Sep, Mild major depression F32.0 and Generalized anxiety disorder F41.1 [facility] [place] [address] [facility] [id number] [address] [place] [phone] Sep, Paresthesia of both hands R2 0.2 and Cervical radiculopathy M54.12 [facility] [place] [address] [facility] [id number] [address] [place] [phone] Sep, [facility] [place] [address] [facility] [id number] [address] [place] [phone] Sep, [facility] [place] [address] [facility] [id number] [address] [place] [phone] Aug, Paresthesia of both hands R2 0.2 and Neck pain M54.2 [place] [address] [facility] [id number] [address] [place] [phone] Aug, [facility] [place] [address] [facility] [id number] [address] [place] [phone] Jul, Neck pain M54.2 and Paresthe eddie of both hands R20.2 [facility] [place] [address] [facility] [id number] [address] [place] [phone] Jul, Proteinuria, unspecified typ e R80.9 [place] [address] [place] [id number] [address] [place] [phone] Jul, Proteinuria, unspecified typ e R80.9 [facility] [place] [address] [facility] [id number] [address] [place] [phone] Jul, [facility] [place] [address] [phone] Jul, Other specified transient ce rebral ischemias G45.8 [place] [address] [address] Jun, Diastolic dysfunction I51.9 [place] [address] [id number] 08 Jun, 2016 Diastolic dysfunction I51.9 [place] [address] [address] Jun, Major depressive disorder, s david episode, unspecified F32.9 and Anxiety disorder, unspecified F41.9 [place] [address] [address] Jun, [place] [address] [address] Jun, [place] [address] [address] May, Moderate major depression F3 2.1 and Generalized anxiety disorder F41.1 [place] [address] [id number] 16 May, 2016 Major depressive disorder, s david episode, unspecified F32.9 and Anxiety disorder, unspecified F41.9 [place] [address] [id number] 15 May, 2016 [place] [address] [id number] 14 May, 2016 Liver enzyme elevation R74.8 [place] [address] [id number] 14 May, 2016 Liver enzyme elevation R74.8 [place] [address] [id number] 10 May, 2016 Shortness of breath on exert ion R06.02 ; Essential hypertension I10 ; Mixed hyperlipidemia E78.2 and Tobacco use Z72.0 [facility] [place] [address] [id number] [address] [place] [phone] May, [facility] [place] [address] [id number] [address] [place] [phone] May, [facility] [place] [address] [id number] [address] [place] [phone] Apr, Anxiety F41.9 and Depression F32.9 [facility] [place] [address] [id number] [address] [place] [phone] Apr, [facility] [place] [address] [id number] [address] [place] [phone] Apr, [facility] [place] [address] [id number] [address] [place] [phone] Mar, Depression F32.9 and Anxiety F41.9 [facility] [place] [address] [id number] [address] [place] [phone] Mar, Anxiety F41.9 and Depression F32.9 [facility] [place] [address] [id number] [address] [place] [phone] Mar, Well woman exam (no gynecolo gical exam) Z00.00 [facility] [place] [address] [id number] [address] [place] [phone] Mar, [facility] [place] [address] [id number] [address] [place] [phone] Mar, [facility] [address] [id number] [address] [place] [id number] Feb, Dental caries K02.9 [facility] [place] [address] [id number] [address] [place] [phone] Feb, [facility] [place] [address] [id number] [address] [place] [phone] Feb, Anxiety F41.9 and Depression F32.9 [facility] [address] [id number] [address] [place] [id number] Feb, Dental examination Z01.20 [facility] [place] [address] [id number] [address] [place] [phone] Feb, [facility] [place] [address] [id number] [address] [place] [phone] Feb, [facility] [place] [address] [id number] [address] [place] [phone] Feb, Anxiety F41.9 and Depression F32.9 [facility] [place] [address] [id number] [address] [place] [phone] Jan, Severe episode of recurrent major depressive disorder, without psychotic features F33.2 and Anxiety disorder, unspecified F41.9 [place] [id number] [facility] [id number] [address] [place] [phone] Jan, [facility] [place] [address] [facility] [id number] [address] [place] [phone] Dec, [facility] [place] [address] [id number] [address] [place] [phone] Dec, Anxiety F41.9 and Depression F32.9 [facility] [place] [address] [facility] [id number] [address] [place] [phone] Dec, Other specified transient ce rebral ischemias G45.8 and Nocturnal hypoxia G47.34 [facility] [place] [address] [facility] [id number] [address] [place] [phone] Dec, [facility] [place] [address] [id number] [address] [place] [phone] Dec, Other specified transient ce rebral ischemias G45.8 [place] [address] [facility] [id number] [address] [place] [id number] 16 Dec, 2015 Severe episode of recurrent major depressive disorder, without psychotic features F33.2 and Anxiety disorder, unspecified F41.9 [facility] [place] [address] [facility] [id number] [address] [place] [phone] Dec, [place] [address] [place] [id number] [address] [place] [id number] 13 Dec, 2015 Anxiety F41.9 and Depression F32.9 [place] [address] [address] [place] [id number] [address] [place] [phone] 07 Dec, 2015 Anxiety F41.9 and Depression F32.9 [place] [address] [address] Dec, [place] [address] [phone] November, Anxiety F41.9 and Depression F32.9 [place] [address] [id number] November, Severe episode of recurrent major depressive disorder, without psychotic features F33.2 [place] [address] [id number] November, Mixed hyperlipidemia E78.2 [place] [address] [address] November, Anxiety F41.9 and Depression F32.9 [place] [address] [address] November, Prediabetes R73.09 ; Essenti al hypertension I10 ; Anxiety F41.9 ; Depression F32.9 ; Gastroesophageal reflux disease, esophagitis presence not specified K21.9 ; Primary osteoarthritis involving multiple joints M15.0 ; History of renal cell cancer Z85.528 ; Postnasal drip R09.82 ; Allergic rhinitis, unspecified J30.9 and Tobacco use Z72.[address] [address] Oct, Anxiety F41.9 and Depression F32.9 [place] [address] [place] [id number] [address] [place] [address] Oct, [place] [address] [place] [id number] [address] [place] [phone] Oct, [facility] [place] [address] [id number] 14 Sep, 2015 Splenic artery aneurysm I72. 8 [facility] [place] [address] [place] [id number] [place] [phone] 10 Sep, 2015 Depression F32.9 ; Anxiety F 41.9 ; Chronic prescription benzodiazepine use Z79.899 and Splenic artery aneurysm I72.8 [facility] [place] [address] [place] [id number] [place] [phone] 10 Sep, 2015 Depression F32.9 and Anxiety F41.9 [place] [address] [address] Sep, [facility] [place] [address] [address] 18 Aug, 2015 Dehydration E86.0 ; Diarrhea R19.7 ; Nausea R11.0 and Generalized abdominal pain R10.84 [facility] [place] [address] [id number] Aug, [facility] [place] [address] [id number] Jul, Depression F32.9 [facility] [place] [address] [id number] Jul, [facility] [place] [address] [id number] Jul, Anxiety F41.9 and Depression F32.9 [facility] [place] [address] [id number] Jul, [facility] [place] [address] [address] Jun, Epigastric pain R10.13 [facility] [place] [address] [id number] Jun, [facility] [place] [address] [facility] [id number] [address] [place] [phone] Jun, [facility] [place] [address] [facility] [id number] [address] [place] [phone] May, [facility] [place] [address] [facility] [id number] [address] [place] [phone] May, [facility] [place] [address] [facility] [id number] [address] [place] [id number] Apr, [facility] [place] [address] [facility] [id number] [address] [place] [phone] Mar, Anxiety state, unspecified 3 00.00 ; Depression 311 ; Prediabetes 790.29 ; Generalized osteoarthrosis, involving multiple sites 715.09 and Hypertension 401.9 [facility] [place] [address] [facility] [id number] [address] [place] [phone] Mar, [facility] [place] [address] [facility] [id number] [address] [place] [phone] Feb, [facility] [place] [address] [facility] [id number] [address] [place] [phone] Jan, [facility] [place] [address] [facility] [id number] [address] [place] [phone] Jan, [facility] [place] [address] [facility] [id number] [address] [place] [phone] Jan, Generalized osteoarthrosis, involving multiple sites 715.09 [facility] [place] [address] [facility] [id number] [address] [place] [phone] 07 Jan, 2015 Hx of renal cell cancer V10. 52 [facility] [place] [address] [facility] [id number] [address] [place] [phone] Dec, Generalized osteoarthrosis, involving multiple sites 715.09 and Hx of renal cell cancer V10.52 [facility] [place] [address] [facility] [id number] [address] [place] [phone] Dec, [facility] [place] [address] [id number] [address] [place] [id number] Dec, [facility] [place] [address] [id number] [address] [place] [phone] November, [facility] [place] [address] [id number] [address] [place] [phone] Oct, [facility] [place] [address] [id number] [address] [place] [phone] Oct, [facility] [place] [address] [id number] [address] [place] [phone] Sep, [facility] [place] [address] [id number] [address] [place] [phone] Sep, [facility] [place] [address] [id number] [address] [place] [id number] Sep, [facility] [place] [address] [id number] [address] [place] [phone] Sep, [facility] [place] [address] [id number] [address] [place] [phone] Aug, [facility] [place] [address] [id number] [address] [place] [phone] Aug, IMMUNIZATIONS No Known Immunizations SOCIAL HISTORY Never Assessed REASON FOR VISIT EMR-[facility] [place] PLAN OF CARE VITAL SIGNS MEDICATIONS Unknown Medications RESULTS No Results PROCEDURES No Known procedures INSTRUCTIONS MEDICATIONS ADMINISTERED No Known Medications MEDICAL (GENERAL) HISTORY Type Description Date Medical History hypertension Medical History Arthritis Medical History chronic pain-in knees bilateral and lowe r back Medical History depression Medical History cancer-right kidney 2005 Medical History obesity Surgical History breast biopsy-right breast, benign Surgical History nephrectomy-right Surgical History partial hysterectomy Surgical History bilateral carpal tunnel release Hospitalization History Hospitalization for surgery only Hospitalization History mini strokes 2016
--- OUTSIDE RECORDS SUMMARY | 2020-02-08 07:08 | XMS REPORT ---
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 Name Role Phone LALO [place] Unavailable PROBLEMS Type Condition ICD9-CM Code FQP23-QS Code Onset Dates Condition S tatus SNOMED Code Problem Isolated proteinuria without specific morphologic lesion R80.0 Active 11212653 Problem Fatty liver K76.0 Active 87557371 7 Problem Bilateral carpal tunnel syndrome G56.03 Active 41715009 Problem Essential hypertension I10 Active 25352877 Problem Obstructive sleep apnea G47.33 Active 20869080 Problem Liver mass R16.0 Active 458312410 Problem Prediabetes R73.09 Active 0686519 Problem Body mass index (bmi) 50-59.9 , adult Z68.43 Active 696155110 Problem Paresthesia of both hands R20.2 Acti ve 092091281 Problem Mixed hyperlipidemia E78.2 Active 265805745 Problem Primary osteoarthritis involving multiple joints M 15.0 Active 985001923 Problem Pulmonary emphysema, unspecified emphysema type J4 3.9 Active 64780822 Problem History of renal cell cancer Z85.528 A ctive 161796958 Problem Chronic prescription benzodiazepine use Z79.899 Active 807340850 Problem Tobacco use Z72.0 Active 23784035 0 Problem Chronic prescription opiate use Z79.899 Active 639470407 Problem Diastolic dysfunction I51.9 Active 3972332 Problem Allergic rhinitis, unspecified J30.9 Active 26366772 Problem Major depressive disorder, recurrent episode, mild degree F33.0 Active 408981718 Problem Generalized anxiety disorder F41.1 A ctive 61392292 Problem History of tobacco use Z87.891 Active 4857360373685 Problem Gastroesophageal reflux disease, esophagitis pre sence not specified K21.9 Active 673163429 Problem Restrictive lung disease J98.4 Activ e 64593157 Problem Persistent depressive disorder F34.1 Active 20732283 Problem Splenic artery aneurysm I72.8 Active 67039411 Problem 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 Active 558385513 Problem Excoriation, neurotic L98.1 Active 17933217 Problem BMI 50.0-59.9, adult Z68.43 Active 389729255 Problem 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 Acti ve 837979141 Problem Decreased GFR R94.4 Active 089030 04 ALLERGIES No Information ENCOUNTERS Encounter Location Date Diagnosis [facility] [place] [address] [id number] [address] [place] [address] Feb, [facility] [place] [address] [id number] [address] [place] [address] Jan, [facility] [place] [address] [facility] [id number] [address] [place] [address] Jan, [facility] [place] [address] [facility] [id number] [address] [place] [address] Jan, [facility] [place] [address] [facility] [id number] [address] [place] [address] Jan, Generalized anxiety disorder F41.1 [facility] [place] [address] [facility] [id number] [address] [place] [address] Jan, [facility] [place] [address] [facility] [id number] [address] [place] [address] Jan, [facility] [place] [address] [facility] [id number] [address] [place] [address] Dec, Morbid obesity E66.01 [facility] [place] [address] [id number] [address] [place] [address] Dec, Generalized anxiety disorder F41.1 and Persistent depressive disorder F34.1 [facility] [place] [address] [id number] [address] [place] [address] Dec, Generalized anxiety disorder F41.1 [facility] [place] [address] [facility] [id number] [address] [place] [address] Dec, [facility] [place] [address] [address] November, Essential hypertension I10 ; Prediabetes R73.09 and Mixed hyperlipidemia E78.2 [place] [address] [address] November, Morbid obesity E66.01 ; Esse ntial hypertension I10 ; Prediabetes R73.09 ; Mixed hyperlipidemia E78.2 ; Hammer toe of second toe of left foot M20.42 and Major depressive disorder, recurrent episode, mild degree F33.0 [place] [address] [address] November, Morbid obesity E66.01 [place] [address] [address] November, Generalized anxiety disorder F41.1 [place] [address] [address] November, [place] [address] [address] Oct, Generalized anxiety disorder F41.1 ; Major depressive disorder, recurrent episode, mild degree F33.0 and 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 [place] [address] [address] Oct, [place] [address] [address] Sep, [place] [address] [address] Sep, [place] [address] [address] Aug, Decreased GFR R94.4 ; BMI 50 .0-59.9, adult Z68.43 ; Chronic prescription opiate use Z79.899 ; Pulmonary emphysema, unspecified emphysema type J43.9 ; Gastroesophageal reflux disease, esophagitis presence not specified K21.9 and Splenic artery aneurysm I72.8 [place] [address] [id number] [address] [place] [address] Aug, Generalized anxiety disorder F41.1 [facility] [place] [address] [facility] [id number] [address] [place] [address] Aug, [facility] [place] [address] [facility] [id number] [address] [place] [address] Jul, Generalized anxiety disorder F41.1 [facility] [place] [address] [facility] [id number] [address] [place] [address] Jul, [facility] [place] [address] [facility] [id number] [address] [place] [address] Jun, Decreased GFR R94.4 [facility] [place] [address] [facility] [id number] [address] [place] [address] Jun, Decreased GFR R94.4 [facility] [place] [address] [facility] [id number] [address] [place] [address] Jun, Generalized anxiety disorder F41.1 [facility] [place] [address] [facility] [id number] [address] [place] [address] Jun, Generalized anxiety disorder F41.1 [facility] [place] [address] [facility] [id number] [address] [place] [address] Jun, [facility] [place] [address] [facility] [id number] [address] [place] [address] May, BMI 50.0-59.9, adult Z68.43 ; Splenic artery aneurysm I72.8 ; Decreased GFR R94.4 and Encounter for weight management Z76.89 [facility] [place] [address] [facility] [id number] [address] [place] [address] May, Decreased GFR R94.4 [facility] [place] [address] [facility] [id number] [address] [place] [address] May, Mixed hyperlipidemia E78.2 ; Fatty liver K76.0 and Essential hypertension I10 [facility] [place] [address] [facility] [id number] [address] [place] [address] May, Generalized anxiety disorder F41.1 ; Major depressive disorder, recurrent episode, mild degree F33.0 ; 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 and BMI 50.0-59.9, adult Z68.43 [facility] [place] [address] [id number] [address] [place] [address] May, [facility] [place] [address] [facility] [id number] [address] [place] [address] Apr, Generalized anxiety disorder F41.1 and Major depressive disorder, recurrent episode, mild degree F33.0 [place] [address] [id number] [address] [place] [address] 15 Apr, 2018 BMI 50.0-59.9, adult Z68.43 and Encounter for weight loss counseling Z71.3 [place] [address] [facility] [id number] [address] [place] [address] Apr, [place] [address] [id number] [address] [place] [address] 20 Mar, 2018 Generalized anxiety disorder F41.1 and Major depressive disorder, recurrent episode, mild degree F33.0 [place] [address] [id number] [address] [place] [address] 18 Mar, 2018 [place] [address] [id number] [address] [place] [address] 12 Mar, 2018 Generalized anxiety disorder F41.1 [place] [address] [id number] [address] [place] [address] 10 Mar, 2018 [facility] [place] [address] [id number] [address] [place] [address] 14 Feb, 2018 Generalized anxiety disorder F41.1 ; Major depressive disorder, recurrent episode, mild degree F33.0 and 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 [facility] [place] [address] [id number] [address] [place] [address] 13 Feb, 2018 Generalized anxiety disorder F41.1 and Major depressive disorder, recurrent episode, mild degree F33.0 [facility] [place] [address] [id number] [address] [place] [address] Feb, [facility] [place] [address] [id number] [address] [place] [address] Feb, Restrictive lung disease J98 .4 ; Pulmonary emphysema, unspecified emphysema type J43.9 and Body mass index (bmi) 50-59.9 , adult Z68.43 [facility] [place] [address] [facility] [id number] [address] [place] [address] Feb, Generalized anxiety disorder F41.1 ; Major depressive disorder, recurrent episode, mild degree F33.0 and 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 [facility] [place] [address] [id number] [address] [place] [address] Feb, [facility] [place] [address] [id number] [address] [place] [address] Jan, [facility] [place] [address] [facility] [id number] [address] [place] [address] Jan, Pulmonary emphysema, unspeci fied emphysema type J43.9 [facility] [address] [id number] [address] [place] [id number] Jan, Dental examination Z01.20 an d Dental caries K02.9 [facility] [place] [address] [id number] [address] [place] [address] Jan, Generalized anxiety disorder F41.1 and Major depressive disorder, recurrent episode, mild degree F33.0 [facility] [place] [address] [id number] [address] [place] [address] Jan, [facility] [place] [address] [facility] [id number] [address] [place] [address] Jan, Generalized anxiety disorder F41.1 [facility] [address] [id number] [address] [place] [address] Jan, Oral abscess K12.2 and BMI 5 0.0-59.9, adult Z68.43 [facility] [place] [address] [facility] [id number] [address] [place] [address] 26 Dec, 2017 BMI 50.0-59.9, adult Z68.43 and Weight loss counseling, encounter for Z71.3 [facility] [place] [address] [facility] [id number] [address] [place] [address] Dec, [facility] [place] [address] [place] [id number] [place] [address] Dec, [facility] [place] [address] [facility] [id number] [address] [place] [address] November, [place] [address] [place] [id number] [place] [address] November, [place] [address] [place] [id number] [address] [place] [address] November, Pulmonary emphysema, unspeci fied emphysema type J43.9 ; Restrictive lung disease J98.4 ; BMI 50.0-59.9, adult Z68.43 ; History of renal cell cancer Z85.528 ; Essential hypertension I10 ; Mixed hyperlipidemia E78.2 and Fatty liver K76.0 [place] [address] [place] [id number] [address] [place] [address] November, Generalized anxiety disorder F41.1 [place] [address] [place] [id number] [address] [place] [address] November, Generalized anxiety disorder F41.1 and Major depressive disorder, recurrent episode, mild degree F33.0 [place] [address] [facility] [id number] [address] [place] [address] November, Generalized anxiety disorder F41.1 ; Major depressive disorder, recurrent episode, mild degree F33.0 and 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 [place] [address] [facility] [id number] [address] [place] [address] November, [place] [address] [place] [id number] [address] [place] [address] Oct, Generalized anxiety disorder F41.1 [facility] [place] [address] [facility] [id number] [address] [place] [address] Oct, [facility] [place] [address] [facility] [id number] [address] [place] [address] Oct, Influenza-like illness R69 [facility] [place] [id number] [place] [address] Sep, Influenza-like illness R69 [facility] [place] [address] [facility] [id number] [address] [place] [address] Sep, Generalized anxiety disorder F41.1 [facility] [place] [address] [place] [id number] [address] [place] [address] Sep, [facility] [place] [address] [address] Aug, [facility] [place] [address] [place] [id number] [address] [place] [address] Aug, [facility] [place] [address] [place] [id number] [address] [place] [address] Aug, Generalized anxiety disorder F41.1 [facility] [address] [place] [id number] [address] [place] [address] Aug, Influenza-like illness R69 a nd BMI 50.0-59.9, adult Z68.43 [facility] [place] [address] [place] [address] Jul, 2018 Fatty liver K76.0 ; Restrict jean-paul lung disease J98.4 ; Diastolic dysfunction I51.9 ; Body mass index (bmi) 50-59.9 , adult Z68.43 and Chronic prescription opiate use Z79.899 [facility] [place] [address] [place] [id number] [address] [place] [address] Jul, Generalized anxiety disorder F41.1 [facility] [place] [address] [place] [id number] [address] [place] [address] Jul, Generalized anxiety disorder F41.1 [facility] [place] [address] [id number] [address] [place] [address] Jul, 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 [facility] [place] [address] [id number] [address] [place] [address] Jun, Generalized anxiety disorder F41.1 [facility] [place] [address] [id number] [address] [place] [address] Jun, [facility] [place] [address] [id number] [address] [place] [address] Jun, Mixed hyperlipidemia E78.2 [facility] [place] [address] [id number] [address] [place] [address] Jun, Generalized anxiety disorder F41.1 [facility] [place] [address] [id number] [address] [place] [address] Jun, Generalized anxiety disorder F41.1 ; Major depressive disorder, recurrent episode, mild degree F33.0 and 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 [facility] [place] [address] [id number] [address] [place] [address] May, [facility] [place] [address] [id number] [address] [place] [address] May, Generalized anxiety disorder F41.1 [facility] [place] [address] [id number] [address] [place] [address] May, Generalized anxiety disorder F41.1 [facility] [place] [address] [id number] [address] [place] [address] May, 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 [facility] [place] [address] [id number] [address] [place] [address] Apr, Major depressive disorder, r ecurrent episode, mild degree F33.0 ; Generalized anxiety disorder F41.1 and Excoriation, neurotic L98.1 [facility] [place] [address] [id number] [address] [place] [address] 04 Apr, 2017 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 [facility] [place] [address] [id number] [address] [place] [address] 03 Apr, 2017 Essential hypertension I10 a nd Mixed hyperlipidemia E78.2 [facility] [place] [address] [id number] [address] [place] [address] Apr, Generalized anxiety disorder F41.1 ; Major depressive disorder, recurrent episode, mild degree F33.0 and 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 [facility] [place] [address] [id number] [address] [place] [address] 06 Mar, 2017 Generalized anxiety disorder F41.1 ; Major depressive disorder, recurrent episode, mild degree F33.0 and 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 [facility] [place] [address] [id number] [address] [place] [address] Mar, Skin lesion L98.9 [facility] [place] [address] [id number] [address] [place] [address] Mar, 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 [facility] [place] [address] [id number] [address] [place] [address] Mar, [facility] [place] [address] [id number] [address] [place] [address] Mar, [facility] [place] [address] [id number] [address] [place] [address] Feb, Major depressive disorder, r ecurrent episode, mild degree F33.0 ; Generalized anxiety disorder F41.1 and Excoriation, neurotic L98.1 [facility] [place] [address] [id number] [address] [place] [address] Feb, Generalized anxiety disorder F41.1 [facility] [place] [address] [id number] [address] [place] [address] Feb, 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 [facility] [place] [address] [id number] [address] [place] [address] Jan, [facility] [place] [address] [facility] [id number] [address] [place] [address] Jan, Essential hypertension I10 ; Splenic artery aneurysm I72.8 ; Liver mass R16.0 ; Restrictive lung disease J98.4 ; Primary osteoarthritis involving multiple joints M15.0 ; Mixed hyperlipidemia E78.2 ; Bilateral carpal tunnel syndrome G56.03 ; Body mass index (bmi) 50-59.9 , adult Z68.43 and History of tobacco use Z87.891 [place] [address] [id number] [address] [place] [address] Jan, Major depressive disorder, r ecurrent episode, mild degree F33.0 and Generalized anxiety disorder F41.1 [place] [address] [facility] [id number] [address] [place] [address] Jan, [place] [address] [facility] [id number] [address] [place] [address] Jan, Generalized anxiety disorder F41.1 and Major depressive disorder, recurrent episode, mild degree F33.0 [place] [address] [facility] [id number] [address] [place] [address] Dec, 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 [facility] [place] [address] [id number] [address] [place] [address] Dec, Generalized anxiety disorder F41.1 [facility] [place] [address] [id number] [address] [place] [address] Dec, [facility] [place] [address] [id number] [address] [place] [address] Dec, Major depressive disorder, r ecurrent episode, mild degree F33.0 and Generalized anxiety disorder F41.1 [facility] [place] [address] [facility] [id number] [address] [place] [address] Dec, Generalized anxiety disorder F41.1 and Major depressive disorder, recurrent episode, mild degree F33.0 [place] [address] [place] [id number] [address] [place] [address] November, Mild major depression F32.0 and Primary osteoarthritis involving multiple joints M15.0 [place] [address] [place] [id number] [address] [place] [address] November, Major depressive disorder, r ecurrent episode, mild degree F33.0 and Generalized anxiety disorder F41.1 [place] [address] [place] [id number] [address] [place] [address] November, 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 ; Essential hypertension I10 ; Prediabetes R73.09 ; Mixed hyperlipidemia E78.2 ; Chronic prescription benzodiazepine use Z79.899 ; Chronic prescription opiate use Z79.899 ; Tobacco use Z72.0 ; Bilateral carpal tunnel syndrome G56.03 and Body mass index (bmi) 50-59.9 , adult Z68.43 [place] [address] [place] [id number] [address] [place] [address] November, 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 and Mild major depression F32.0 [place] [address] [place] [id number] [address] [place] [address] Oct, [place] [address] [place] [id number] [address] [place] [address] Oct, 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 ; Essential hypertension I10 ; Prediabetes R73.09 ; Chronic prescription benzodiazepine use Z79.899 ; Chronic prescription opiate use Z79.899 ; Tobacco use Z72.0 ; Mixed hyperlipidemia E78.2 ; Bilateral carpal tunnel syndrome G56.03 ; Body mass index (bmi) 50-59.9 , adult Z68.43 and Encounter for immunization Z23 [place] [address] [place] [id number] [place] [id number] Oct, Major depressive disorder, r ecurrent episode, mild degree F33.0 and Generalized anxiety disorder F41.1 [place] [id number] [place] [phone] Oct, [facility], [place] [address] [facility] [id number] [address] [place] [id number] Oct, [facility], [place] [address] [facility] [id number] [address] [place] [phone] Sep, Mild major depression F32.0 [facility], [place] [address] [place] [id number] [place] [phone] Sep, [facility], [place] [address] [facility] [id number] [address] [place] [id number] Sep, Mild major depression F32.0 and Generalized anxiety disorder F41.1 [facility], [place] [address] [facility] [id number] [address] [place] [id number] Sep, Paresthesia of both hands R2 0.2 and Cervical radiculopathy M54.12 [place] [address] [place] [id number] [place] [id number] Sep, [facility], [place] [address] [facility] [id number] [address] [place] [address] [id number] Sep, [facility], [place] [id number] [place] [address] Aug, Paresthesia of both hands R2 0.2 and Neck pain M54.2 [place] [id number] [place] [address] Aug, [facility], [place] [address] [facility] [id number] [address] [place] [address] Jul, Neck pain M54.2 and Paresthe eddie of both hands R20.2 [place] [address] [facility] [id number] [address] [place] [address] Jul, Proteinuria, unspecified typ e R80.9 [facility], [place] [address] [id number] [address] [place] [address] Jul, Proteinuria, unspecified typ e R80.9 [facility], [place] [address] [facility] [id number] [address] [place] [address] Jul, [facility], [place] [address] [facility] [id number] [address] [place] [address] Jul, Other specified transient ce rebral ischemias G45.8 [facility], [place] [address] [facility] [id number] [address] [place] [address] Jun, Diastolic dysfunction I51.9 [facility], [place] [address] [facility] [id number] [address] [place] [address] Jun, Diastolic dysfunction I51.9 [facility], [place] [address] [facility] [id number] [address] [place] [address] Jun, Major depressive disorder, s david episode, unspecified F32.9 and Anxiety disorder, unspecified F41.9 [facility], [place] [address] [facility] [id number] [address] [place] [address] Jun, [facility], [place] [address] [facility] [id number] [address] [place] [address] Jun, [facility], [place] [address] [facility] [id number] [address] [place] [address] May, Moderate major depression F3 2.1 and Generalized anxiety disorder F41.1 [facility], [place] [address] [facility] [id number] [address] [place] [address] 16 May, 2016 Major depressive disorder, s david episode, unspecified F32.9 and Anxiety disorder, unspecified F41.9 [facility], [place] [address] [facility] [id number] [address] [place] [address] 15 May, 2016 [facility], [place] [address] [facility] [id number] [address] [place] [address] May, Liver enzyme elevation R74.8 [facility], [place] [address] [facility] [id number] [address] [place] [address] May, Liver enzyme elevation R74.8 [facility], [place] [address] [id number] [address] [place] [address] May, Shortness of breath on exert ion R06.02 ; Essential hypertension I10 ; Mixed hyperlipidemia E78.2 and Tobacco use Z72.0 [facility], [place] [address] [id number] [address] [place] [address] May, [facility], [place] [address] [id number] [address] [place] [address] May, [facility], [place] [address] [id number] [address] [place] [address] Apr, Anxiety F41.9 and Depression F32.9 [facility], [place] [address] [id number] [address] [place] [address] Apr, [facility], [place] [address] [id number] [address] [place] [address] Apr, [facility], [place] [address] [facility] [id number] [address] [place] [address] Mar, Depression F32.9 and Anxiety F41.9 [facility], [place] [address] [id number] [address] [place] [address] Mar, Anxiety F41.9 and Depression F32.9 [facility], [place] [address] [id number] [address] [place] [address] Mar, Well woman exam (no gynecolo gical exam) Z00.00 [facility], [place] [address] [id number] [address] [place] [address] Mar, [facility], [place] [address] [facility] [id number] [address] [place] [address] Mar, [facility] [address] [id number] [address] [place] [id number] Feb, Dental caries K02.9 [facility], [place] [address] [id number] [address] [place] [address] Feb, [facility], [place] [address] [id number] [address] [place] [address] Feb, Anxiety F41.9 and Depression F32.9 [facility] [address] [id number] [address] [place] [address] [id number] Feb, Dental examination Z01.20 [facility], [place] [address] [id number] [address] [place] [address] Feb, [facility], [place] [address] [id number] [address] [place] [address] Feb, [facility], [place] [address] [id number] [address] [place] [address] Feb, Anxiety F41.9 and Depression F32.9 [facility], [place] [address] [id number] [address] [place] [address] Jan, Severe episode of recurrent major depressive disorder, without psychotic features F33.2 and Anxiety disorder, unspecified F41.9 [facility], [place] [address] [id number] [address] [place] [address] Jan, [facility], [place] [address] [id number] [address] [place] [address] Dec, [facility], [place] [address] [facility] [id number] [address] [place] [address] Dec, Anxiety F41.9 and Depression F32.9 [facility], [place] [address] [facility] [id number] [address] [place] [address] Dec, Other specified transient ce rebral ischemias G45.8 and Nocturnal hypoxia G47.34 [facility], [place] [address] [id number] [address] [place] [address] Dec, [facility], [place] [address] [facility] [id number] [address] [place] [address] Dec, Other specified transient ce rebral ischemias G45.8 [facility], [place] [address] [facility] [id number] [address] [place] [address] 16 Dec, 2015 Severe episode of recurrent major depressive disorder, without psychotic features F33.2 and Anxiety disorder, unspecified F41.9 [place] [address] [address] 13 Dec, 2015 [place] [address] [id number] [address] [place] [address] 13 Dec, 2015 Anxiety F41.9 and Depression F32.9 [place] [address] [address] Dec, Anxiety F41.9 and Depression F32.9 [place] [address] [address] Dec, [place] [address] [address] November, Anxiety F41.9 and Depression F32.9 [place] [address] [address] November, Severe episode of recurrent major depressive disorder, without psychotic features F33.2 [place] [address] [address] November, Mixed hyperlipidemia E78.2 [place] [id number] [place] [address] November, Anxiety F41.9 and Depression F32.9 [place] [address] [address] 05 Nov, 2015 Prediabetes R73.09 ; Essenti al hypertension I10 ; Anxiety F41.9 ; Depression F32.9 ; Gastroesophageal reflux disease, esophagitis presence not specified K21.9 ; Primary osteoarthritis involving multiple joints M15.0 ; History of renal cell cancer Z85.528 ; Postnasal drip R09.82 ; Allergic rhinitis, unspecified J30.9 and Tobacco use Z72.0 [place] [address] [id number] [place] [address] Oct, Anxiety F41.9 and Depression F32.9 [facility], [place] [address] [id number] [address] [place] [address] 07 Oct, 2015 [facility], [place] [id number] [place] [address] Oct, [facility], [place] [id number] [place] [phone] 14 Sep, 2015 Splenic artery aneurysm I72. 8 [facility], [place] [address] [address] 10 Sep, 2015 Depression F32.9 ; Anxiety F 41.9 ; Chronic prescription benzodiazepine use Z79.899 and Splenic artery aneurysm I72.8 [facility], [place] [id number] [place] [address] 10 Sep, 2015 Depression F32.9 and Anxiety F41.9 [facility], [place] [address] [address] 02 Sep, 2015 [facility], [place] [address] [address] 18 Aug, 2015 Dehydration E86.0 ; Diarrhea R19.7 ; Nausea R11.0 and Generalized abdominal pain R10.84 [facility], [place] [id number] [address] [place] [address] Aug, [facility], [place] [address] [id number] [address] [place] [address] Jul, Depression F32.9 [facility], [place] [id number] [address] [place] [address] Jul, [facility], [place] [address] [address] Jul, Anxiety F41.9 and Depression F32.9 [facility], [place] [id number] [place] [address] Jul, [facility], [place] [address] [address] Jun, Epigastric pain R10.13 [facility], [place] [address] [id number] [address] [place] [address] Jun, [facility], [place] [address] [facility] [id number] [address] [place] [address] Jun, [facility], [place] [address] [facility] [id number] [address] [place] [address] May, [facility], [place] [address] [facility] [id number] [address] [place] [address] May, [facility], [place] [address] [facility] [id number] [address] [place] [address] Apr, [facility], [place] [address] [facility] [id number] [address] [place] [address] Mar, Anxiety state, unspecified 3 00.00 ; Depression 311 ; Prediabetes 790.29 ; Generalized osteoarthrosis, involving multiple sites 715.09 and Hypertension 401.9 [facility], [place] [address] [facility] [id number] [address] [place] [address] Mar, [facility], [place] [address] [facility] [id number] [address] [place] [address] Feb, [facility], [place] [address] [facility] [id number] [address] [place] [address] Jan, [facility], [place] [address] [facility] [id number] [address] [place] [address] Jan, [facility], [place] [address] [facility] [id number] [address] [place] [address] Jan, Generalized osteoarthrosis, involving multiple sites 715.09 [facility], [place] [address] [facility] [id number] [address] [place] [address] Jan, Hx of renal cell cancer V10. 52 [facility], [place] [address] [facility] [id number] [address] [place] [address] Dec, Generalized osteoarthrosis, involving multiple sites 715.09 and Hx of renal cell cancer V10.52 [facility], [place] [address] [id number] [address] [place] [address] Dec, [facility], [place] [address] [id number] [address] [place] [address] Dec, [facility], [place] [address] [id number] [address] [place] [address] November, [facility], [place] [address] [id number] [address] [place] [address] Oct, [facility], [place] [address] [id number] [address] [place] [address] Oct, [facility], [place] [address] [id number] [address] [place] [address] Sep, [facility], [place] [address] [id number] [address] [place] [address] Sep, [facility], [place] [address] [id number] [address] [place] [address] Sep, [facility], [place] [address] [id number] [address] [place] [address] Sep, [facility], [place] [address] [id number] [address] [place] [address] Aug, [facility], [place] [address] [id number] [address] [place] [address] Aug, IMMUNIZATIONS No Known Immunizations SOCIAL HISTORY [...] for surgery only Hospitalization History mini strokes 2015
--- OUTSIDE RECORDS SUMMARY | 2020-02-08 07:08 | XMS REPORT ---
Author Author Emilee MAY Organization [facility] Address [address] [place] [address] Care Team Providers Care Instruction Assistant Principal Name Role Phone LALO [place] Unavailable PROBLEMS Type Condition ICD9-CM Code [id number] Code Onset Dates Condition S tatus SNOMED Code Problem Isolated proteinuria without specific morphologic lesion R80.0 Active 91447869 Problem Fatty liver K76.0 Active 59750127 7 Problem Bilateral carpal tunnel syndrome G56.03 Active 32073281 Problem Essential hypertension I10 Active 11296011 Problem Obstructive sleep apnea G47.33 Active 62018150 Problem Liver mass R16.0 Active 061819390 Problem Prediabetes R73.09 Active 5091848 Problem Body mass index (bmi) 50-59.9 , adult Z68.43 Active 359917072 Problem Paresthesia of both hands R20.2 Acti ve 880892406 Problem Mixed hyperlipidemia E78.2 Active 162514863 Problem Primary osteoarthritis involving multiple joints M 15.0 Active 500946157 Problem Pulmonary emphysema, unspecified emphysema type J4 3.9 Active 92123872 Problem History of renal cell cancer Z85.528 A ctive 994549026 Problem Chronic prescription benzodiazepine use Z79.899 Active 146191073 Problem Tobacco use Z72.0 Active 75310289 0 Problem Chronic prescription opiate use Z79.899 Active 396533523 Problem Diastolic dysfunction I51.9 Active 9560939 Problem Allergic rhinitis, unspecified J30.9 Active 14621928 Problem Major depressive disorder, recurrent episode, mild degree F33.0 Active 587564288 Problem Generalized anxiety disorder F41.1 A ctive 76704540 Problem History of tobacco use Z87.891 Active 5993795520705 Problem Gastroesophageal reflux disease, esophagitis pre sence not specified K21.9 Active 561131081 Problem Restrictive lung disease J98.4 Activ e 34809133 Problem Persistent depressive disorder F34.1 Active 18163120 Problem Splenic artery aneurysm I72.8 Active 25085083 Problem 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 Active 556216525 Problem Excoriation, neurotic L98.1 Active 88016907 Problem BMI 50.0-59.9, adult Z68.43 Active 071582315 Problem 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 Acti ve 383151347 Problem Decreased GFR R94.4 Active 876255 04 ALLERGIES No Information ENCOUNTERS Encounter Location Date Diagnosis [facility] [address] [id number] [address] [place] [address] Apr, [facility] [address] [facility] [id number] [address] [place] [address] Feb, [facility] [address] [facility] [id number] [address] [place] [address] Jan, [facility] [address] [facility] [id number] [address] [place] [address] Jan, [facility] [address] [place] [id number] [address] [place] [address] Jan, Generalized anxiety disorder F41.1 ; Major depressive disorder, recurrent episode, mild degree F33.0 and 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 [place] [address] [facility] [id number] [address] [place] [address] Jan, Generalized anxiety disorder F41.1 [facility] [address] [facility] [id number] [address] [place] [address] Jan, [facility] [address] [facility] [id number] [address] [place] [address] Jan, [facility] [address] [facility] [id number] [address] [place] [address] Dec, Morbid obesity E66.01 [facility] [address] [facility] [id number] [address] [place] [address] Dec, Generalized anxiety disorder F41.1 and Persistent depressive disorder F34.1 [facility] [address] [facility] [id number] [address] [place] [address] Dec, Generalized anxiety disorder F41.1 [facility] [address] [facility] [id number] [address] [place] [address] Dec, [facility] [address] [facility] [id number] [address] [place] [address] November, Essential hypertension I10 ; Prediabetes R73.09 and Mixed hyperlipidemia E78.2 [facility] [address] [facility] [id number] [address] [place] [address] November, Morbid obesity E66.01 ; Esse ntial hypertension I10 ; Prediabetes R73.09 ; Mixed hyperlipidemia E78.2 ; Hammer toe of second toe of left foot M20.42 and Major depressive disorder, recurrent episode, mild degree F33.0 [place] [address] [place] [id number] [address] [place] [address] November, Morbid obesity E66.01 [place] [address] [place] [id number] [address] [place] [address] November, Generalized anxiety disorder F41.1 [place] [address] [facility] [id number] [address] [place] [address] November, [facility] [address] [facility] [id number] [address] [place] [address] Oct, Generalized anxiety disorder F41.1 ; Major depressive disorder, recurrent episode, mild degree F33.0 and 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 [place] [address] [facility] [id number] [address] [place] [address] Oct, [facility] [address] [facility] [id number] [address] [place] [address] Sep, [place] [address] [place] [id number] [address] [place] [phone] Sep, [facility] [address] [facility] [id number] [address] [place] [address] Aug, Decreased GFR R94.4 ; BMI 50 .0-59.9, adult Z68.43 ; Chronic prescription opiate use Z79.899 ; Pulmonary emphysema, unspecified emphysema type J43.9 ; Gastroesophageal reflux disease, esophagitis presence not specified K21.9 and Splenic artery aneurysm I72.8 [facility] [address] [id number] [address] [place] [address] 04 Aug, 2018 Generalized anxiety disorder F41.1 [facility] [address] [id number] [address] [place] [address] Aug, [facility] [address] [id number] [address] [place] [address] Jul, Generalized anxiety disorder F41.1 [facility] [address] [facility] [id number] [address] [place] [address] Jul, [facility] [address] [facility] [id number] [address] [place] [address] Jun, Decreased GFR R94.4 [facility] [address] [facility] [id number] [address] [place] [address] Jun, Decreased GFR R94.4 [facility] [address] [facility] [id number] [address] [place] [address] Jun, Generalized anxiety disorder F41.1 [facility] [address] [facility] [id number] [address] [place] [address] Jun, Generalized anxiety disorder F41.1 [facility] [address] [facility] [id number] [address] [place] [address] Jun, [facility] [address] [facility] [id number] [address] [place] [address] May, BMI 50.0-59.9, adult Z68.43 ; Splenic artery aneurysm I72.8 ; Decreased GFR R94.4 and Encounter for weight management Z76.89 [facility] [address] [facility] [id number] [address] [place] [address] May, Decreased GFR R94.4 [place] [id number] [id number] [address] [place] [address] 16 May, 2018 Mixed hyperlipidemia E78.2 ; Fatty liver K76.0 and Essential hypertension I10 [facility] [address] [facility] [id number] [address] [place] [phone] 07 May, 2018 Generalized anxiety disorder F41.1 ; Major depressive disorder, recurrent episode, mild degree F33.0 ; 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 and BMI 50.0-59.9, adult Z68.43 [facility] [address] [facility] [id number] [address] [place] [address] 05 May, 2018 [facility] [address] [facility] [id number] [address] [place] [address] 31 Apr, 2018 Generalized anxiety disorder F41.1 and Major depressive disorder, recurrent episode, mild degree F33.0 [place] [address] [facility] [id number] [address] [place] [address] 15 Apr, 2018 BMI 50.0-59.9, adult Z68.43 and Encounter for weight loss counseling Z71.3 [place] [address] [facility] [id number] [address] [place] [address] 03 Apr, 2018 [facility] [address] [facility] [id number] [address] [place] [address] 20 Mar, 2018 Generalized anxiety disorder F41.1 and Major depressive disorder, recurrent episode, mild degree F33.0 [facility] [address] [facility] [id number] [address] [place] [address] 18 Mar, 2018 [facility] [address] [facility] [id number] [address] [place] [address] 12 Mar, 2018 Generalized anxiety disorder F41.1 [facility] [address] [facility] [id number] [address] [place] [address] 10 Mar, 2018 [facility] [address] [facility] [id number] [address] [place] [address] 14 Feb, 2018 Generalized anxiety disorder F41.1 ; Major depressive disorder, recurrent episode, mild degree F33.0 and 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 [facility] [address] [id number] [address] [place] [address] Feb, Generalized anxiety disorder F41.1 and Major depressive disorder, recurrent episode, mild degree F33.0 [facility] [address] [id number] [address] [place] [address] Feb, [facility] [address] [id number] [address] [place] [address] Feb, Restrictive lung disease J98 .4 ; Pulmonary emphysema, unspecified emphysema type J43.9 and Body mass index (bmi) 50-59.9 , adult Z68.43 [facility] [address] [id number] [address] [place] [address] Feb, Generalized anxiety disorder F41.1 ; Major depressive disorder, recurrent episode, mild degree F33.0 and 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 [facility] [address] [id number] [address] [place] [address] Feb, [facility] [address] [id number] [address] [place] [address] Jan, [facility] [address] [id number] [address] [place] [address] Jan, Pulmonary emphysema, unspeci fied emphysema type J43.[address] [facility] [address] [id number] [address] [place] [id number] Jan, Dental examination Z01.20 an d Dental caries K02.9 [facility] [address] [id number] [address] [place] [address] Jan, Generalized anxiety disorder F41.1 and Major depressive disorder, recurrent episode, mild degree F33.0 [facility] [address] [id number] [address] [place] [address] Jan, [facility] [address] [id number] [address] [place] [address] Jan, Generalized anxiety disorder F41.1 [facility] [address] [facility] [id number] [address] [place] [address] Jan, Oral abscess K12.2 and BMI 5 0.0-59.9, adult Z68.43 [facility] [address] [facility] [id number] [address] [place] [address] Dec, BMI 50.0-59.9, adult Z68.43 and Weight loss counseling, encounter for Z71.3 [facility] [address] [facility] [id number] [address] [place] [address] Dec, [facility] [address] [place] [id number] [place] [address] Dec, [facility] [address] [place] [id number] [address] [place] [address] November, [facility] [address] [place] [id number] [address] [place] [address] November, [facility] [address] [place] [id number] [address] [place] [address] November, Pulmonary emphysema, unspeci fied emphysema type J43.9 ; Restrictive lung disease J98.4 ; BMI 50.0-59.9, adult Z68.43 ; History of renal cell cancer Z85.528 ; Essential hypertension I10 ; Mixed hyperlipidemia E78.2 and Fatty liver K76.0 [facility] [address] [facility] [id number] [address] [place] [address] November, Generalized anxiety disorder F41.1 [facility] [address] [facility] [id number] [address] [place] [address] November, Generalized anxiety disorder F41.1 and Major depressive disorder, recurrent episode, mild degree F33.0 [facility] [address] [facility] [id number] [address] [place] [address] November, Generalized anxiety disorder F41.1 ; Major depressive disorder, recurrent episode, mild degree F33.0 and 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 [facility] [address] [place] [id number] [address] [place] [address] November, [facility] [address] [address] Oct, Generalized anxiety disorder F41.1 [facility] [address] [address] Oct, [facility] [address] [address] Oct, Influenza-like illness R69 [facility] [address] [place] [id number] [place] [address] Sep, Influenza-like illness R69 [facility] [address] [place] [id number] [address] [place] [address] Sep, Generalized anxiety disorder F41.1 [facility] [address] [place] [id number] [address] [place] [address] Sep, [facility] [address] [place] [id number] [address] [place] [address] Aug, [facility] [address] [place] [id number] [address] [place] [address] Aug, [facility] [address] [place] [id number] [address] [place] [address] Aug, Generalized anxiety disorder F41.1 [facility] [address] [place] [id number] [address] [place] [address] Aug, Influenza-like illness R69 a nd BMI 50.0-59.9, adult Z68.43 [facility] [address] [place] [id number] [address] [place] [address] Jul, 2018 Fatty liver K76.0 ; Restrict jean-paul lung disease J98.4 ; Diastolic dysfunction I51.9 ; Body mass index (bmi) 50-59.9 , adult Z68.43 and Chronic prescription opiate use Z79.899 [facility] [address] [id number] [address] [place] [address] Jul, Generalized anxiety disorder F41.1 [facility] [address] [id number] [address] [place] [address] Jul, Generalized anxiety disorder F41.1 [facility] [address] [id number] [address] [place] [address] Jul, 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 [facility] [address] [id number] [address] [place] [address] Jun, Generalized anxiety disorder F41.1 [facility] [address] [facility] [id number] [address] [place] [address] Jun, [facility] [address] [facility] [id number] [address] [place] [address] Jun, Mixed hyperlipidemia E78.2 [facility] [address] [facility] [id number] [address] [place] [address] Jun, Generalized anxiety disorder F41.1 [facility] [address] [facility] [id number] [address] [place] [address] Jun, Generalized anxiety disorder F41.1 ; Major depressive disorder, recurrent episode, mild degree F33.0 and 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 [facility] [address] [facility] [id number] [address] [place] [address] May, [facility] [address] [id number] [address] [place] [address] May, Generalized anxiety disorder F41.1 [facility] [address] [facility] [id number] [address] [place] [address] May, Generalized anxiety disorder F41.1 [facility] [address] [facility] [id number] [address] [place] [address] May, 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 [facility] [address] [id number] [address] [place] [address] 09 Apr, 2017 Major depressive disorder, r ecurrent episode, mild degree F33.0 ; Generalized anxiety disorder F41.1 and Excoriation, neurotic L98.1 [facility] [address] [id number] [address] [place] [address] Apr, 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 [facility] [address] [id number] [address] [place] [address] Apr, Essential hypertension I10 a nd Mixed hyperlipidemia E78.2 [facility] [address] [id number] [address] [place] [address] Apr, Generalized anxiety disorder F41.1 ; Major depressive disorder, recurrent episode, mild degree F33.0 and 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 [place] [address] [id number] [address] [place] [address] Mar, Generalized anxiety disorder F41.1 ; Major depressive disorder, recurrent episode, mild degree F33.0 and 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 [place] [address] [id number] [address] [place] [address] Mar, Skin lesion L98.9 [facility] [address] [id number] [address] [place] [address] Mar, 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 [facility] [address] [id number] [address] [place] [address] Mar, [facility] [address] [id number] [address] [place] [address] Mar, [facility] [address] [id number] [address] [place] [address] Feb, Major depressive disorder, r ecurrent episode, mild degree F33.0 ; Generalized anxiety disorder F41.1 and Excoriation, neurotic L98.1 [facility] [address] [id number] [address] [place] [address] Feb, Generalized anxiety disorder F41.1 [facility] [address] [id number] [address] [place] [address] Feb, 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 [facility] [address] [facility] [id number] [address] [place] [address] Jan, [facility] [address] [facility] [id number] [address] [place] [address] Jan, Essential hypertension I10 ; Splenic artery aneurysm I72.8 ; Liver mass R16.0 ; Restrictive lung disease J98.4 ; Primary osteoarthritis involving multiple joints M15.0 ; Mixed hyperlipidemia E78.2 ; Bilateral carpal tunnel syndrome G56.03 ; Body mass index (bmi) 50-59.9 , adult Z68.43 and History of tobacco use Z87.891 [facility] [address] [facility] [id number] [address] [place] [address] Jan, Major depressive disorder, r ecurrent episode, mild degree F33.0 and Generalized anxiety disorder F41.1 [facility] [address] [facility] [id number] [address] [place] [address] Jan, [facility] [address] [facility] [id number] [address] [place] [address] Jan, Generalized anxiety disorder F41.1 and Major depressive disorder, recurrent episode, mild degree F33.0 [facility] [address] [facility] [id number] [address] [place] [address] Dec, 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 [facility] [address] [id number] [address] [place] [address] Dec, Generalized anxiety disorder F41.1 [facility] [address] [facility] [id number] [address] [place] [address] Dec, [facility] [address] [facility] [id number] [address] [place] [address] Dec, Major depressive disorder, r ecurrent episode, mild degree F33.0 and Generalized anxiety disorder F41.1 [place] [address] [place] [id number] [address] [place] [address] Dec, Generalized anxiety disorder F41.1 and Major depressive disorder, recurrent episode, mild degree F33.0 [place] [id number] [place] [address] November, Mild major depression F32.0 and Primary osteoarthritis involving multiple joints M15.0 [place] [address] [place] [id number] [address] [place] [address] November, Major depressive disorder, r ecurrent episode, mild degree F33.0 and Generalized anxiety disorder F41.1 [place] [address] [place] [id number] [address] [place] [address] November, 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 ; Essential hypertension I10 ; Prediabetes R73.09 ; Mixed hyperlipidemia E78.2 ; Chronic prescription benzodiazepine use Z79.899 ; Chronic prescription opiate use Z79.899 ; Tobacco use Z72.0 ; Bilateral carpal tunnel syndrome G56.03 and Body mass index (bmi) 50-59.9 , adult Z68.43 [place] [address] [place] [id number] [address] [place] [address] November, 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 and Mild major depression F32.0 [place] [address] [place] [id number] [address] [place] [address] Oct, [place] [id number] [place] [address] Oct, 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 ; Essential hypertension I10 ; Prediabetes R73.09 ; Chronic prescription benzodiazepine use Z79.899 ; Chronic prescription opiate use Z79.899 ; Tobacco use Z72.0 ; Mixed hyperlipidemia E78.2 ; Bilateral carpal tunnel syndrome G56.03 ; Body mass index (bmi) 50-59.9 , adult Z68.43 and Encounter for immunization Z23 [facility] [address] [id number] [address] [place] [address] 17 Oct, 2016 Major depressive disorder, r ecurrent episode, mild degree F33.0 and Generalized anxiety disorder F41.1 [facility] [address] [id number] [address] [place] [phone] Oct, [facility] [address] [id number] [address] [place] [address] Oct, [facility] [address] [id number] [address] [place] [address] Sep, Mild major depression F32.0 [facility] [address] [id number] [address] [place] [id number] Sep, [facility] [address] [facility] [id number] [address] [place] [id number] Sep, Mild major depression F32.0 and Generalized anxiety disorder F41.1 [facility] [address] [id number] [address] [place] [id number] Sep, Paresthesia of both hands R2 0.2 and Cervical radiculopathy M54.12 [facility] [address] [id number] [address] [place] [phone] Sep, [facility] [address] [id number] [address] [place] [id number] Sep, [facility] [address] [id number] [address] [place] [id number] Aug, Paresthesia of both hands R2 0.2 and Neck pain M54.2 [facility] [address] [id number] [address] [place] [id number] Aug, [facility] [address] [facility] [id number] [address] [place] [phone] Jul, Neck pain M54.2 and Paresthe eddie of both hands R20.2 [facility] [address] [id number] [address] [place] [id number] Jul, Proteinuria, unspecified typ e R80.9 [facility] [address] N [facility] [id number] [address] [place] [phone] Jul, Proteinuria, unspecified typ e R80.9 [facility] [address] [facility] [id number] [address] [place] [phone] Jul, [facility] [address] [facility] [id number] [address] [place] [phone] Jul, Other specified transient ce rebral ischemias G45.8 [facility] [address] [facility] [id number] [address] [place] [phone] Jun, Diastolic dysfunction I51.9 [facility] [address] [facility] [id number] [address] [place] [phone] Jun, Diastolic dysfunction I51.9 [facility] [address] [facility] [id number] [address] [place] [phone] Jun, Major depressive disorder, s david episode, unspecified F32.9 and Anxiety disorder, unspecified F41.9 [facility] [address] [place] [id number] [address] [place] [phone] Jun, [facility] [address] [facility] [id number] [address] [place] [phone] Jun, [facility] [address] [facility] [id number] [address] [place] [phone] May, Moderate major depression F3 2.1 and Generalized anxiety disorder F41.1 [facility] [address] [facility] [id number] [address] [place] [phone] May, Major depressive disorder, s david episode, unspecified F32.9 and Anxiety disorder, unspecified F41.9 [facility] [address] [facility] [id number] [address] [place] [phone] May, [facility] [address] [facility] [id number] [address] [place] [phone] 14 May, 2016 Liver enzyme elevation R74.8 [facility] [address] [facility] [id number] [address] [place] [phone] 14 May, 2016 Liver enzyme elevation R74.8 [facility] [address] [place] [id number] [address] [place] [phone] 10 May, 2016 Shortness of breath on exert ion R06.02 ; Essential hypertension I10 ; Mixed hyperlipidemia E78.2 and Tobacco use Z72.0 [facility] [address] [facility] [id number] [address] [place] [id number] 03 May, 2016 [facility] [address] [place] [id number] [place] [phone] May, [facility] [address] [place] [id number] [place] [phone] Apr, Anxiety F41.9 and Depression F32.9 [facility] [address] [place] [id number] [address] [place] [phone] Apr, [facility] [address] [place] [id number] [address] [place] [phone] Apr, [facility] [address] [place] [id number] [address] [place] [phone] Mar, Depression F32.9 and Anxiety F41.9 [facility] [address] [place] [id number] [address] [place] [phone] 08 Mar, 2016 Anxiety F41.9 and Depression F32.9 [facility] [address] [facility] [id number] [address] [place] [phone] 06 Mar, 2016 Well woman exam (no gynecolo gical exam) Z00.00 [facility] [address] [place] [id number] [address] [place] [phone] Mar, [facility] [address] [place] [id number] [address] [place] [phone] Mar, [facility] [address] [id number] [address] [place] [id number] Feb, Dental caries K02.9 [facility] [address] [id number] [address] [place] [phone] Feb, [facility] [address] [id number] [address] [place] [phone] Feb, Anxiety F41.[address] [facility] [address] [id number] [address] [place] [id number] Feb, Dental examination Z01.20 [facility] [address] [id number] [address] [place] [phone] Feb, [facility] [address] [id number] [address] [place] [phone] Feb, [facility] [address] [id number] [address] [place] [phone] Feb, Anxiety F41.9 and Depression F32.9 [facility] [address] [id number] [address] [place] [phone] Jan, Severe episode of recurrent major depressive disorder, without psychotic features F33.2 and Anxiety disorder, unspecified F41.9 [facility] [address] [id number] [address] [place] [phone] Jan, [facility] [address] [id number] [address] [place] [phone] Dec, [facility] [address] [facility] [id number] [address] [place] [phone] Dec, Anxiety F41.9 and Depression F32.9 [facility] [address] [facility] [id number] [address] [place] [phone] Dec, Other specified transient ce rebral ischemias G45.8 and Nocturnal hypoxia G47.34 [facility] [address] [id number] [address] [place] [phone] Dec, [facility] [address] [id number] 17 Dec, 2015 Other specified transient ce rebral ischemias G45.8 [place] [address] [address] 16 Dec, 2015 Severe episode of recurrent major depressive disorder, without psychotic features F33.2 and Anxiety disorder, unspecified F41.9 [place] [address] [id number] 13 Dec, 2015 [place] [address] [id number] 13 Dec, 2015 Anxiety F41.9 and Depression F32.[address] [address] 07 Dec, 2015 Anxiety F41.9 and Depression F32.[address] [address] Dec, [place] [address] [address] November, Anxiety F41.9 and Depression F32.9 [place] [address] [address] November, Severe episode of recurrent major depressive disorder, without psychotic features F33.2 [place] [address] [address] November, Mixed hyperlipidemia E78.2 [place] [address] [address] November, Anxiety F41.9 and Depression F32.[address] [address] 05 Nov, 2015 Prediabetes R73.09 ; Essenti al hypertension I10 ; Anxiety F41.9 ; Depression F32.9 ; Gastroesophageal reflux disease, esophagitis presence not specified K21.9 ; Primary osteoarthritis involving multiple joints M15.0 ; History of renal cell cancer Z85.528 ; Postnasal drip R09.82 ; Allergic rhinitis, unspecified J30.9 and Tobacco use Z72.0 [place] [address] [address] 11 Oct, 2015 Anxiety F41.9 and Depression F32.9 [place] [address] [address] 07 Oct, 2015 [place] [address] [address] Oct, [facility] [address] [address] 14 Sep, 2015 Splenic artery aneurysm I72. 8 [place] [address] [address] 10 Sep, 2015 Depression F32.9 ; Anxiety F 41.9 ; Chronic prescription benzodiazepine use Z79.899 and Splenic artery aneurysm I72.8 [place] [address] [address] 10 Sep, 2015 Depression F32.9 and Anxiety F41.9 [place] [address] [address] Sep, [place] [address] [address] 18 Aug, 2015 Dehydration E86.0 ; Diarrhea R19.7 ; Nausea R11.0 and Generalized abdominal pain R10.84 [place] [address] [address] Aug, [place] [address] [address] Jul, Depression F32.9 [place] [address] [address] Jul, [place] [address] [address] Jul, Anxiety F41.9 and Depression F32.9 [facility] [address] [id number] [address] [place] [phone] Jul, [facility] [address] [facility] [id number] [address] [place] [phone] Jun, Epigastric pain R10.13 [facility] [address] [id number] [address] [place] [phone] Jun, [facility] [address] [id number] [address] [place] [phone] Jun, [facility] [address] [facility] [id number] [address] [place] [phone] May, [facility] [address] [facility] [id number] [address] [place] [phone] May, [facility] [address] [facility] [id number] [address] [place] [phone] Apr, [facility] [address] [facility] [id number] [address] [place] [address] Mar, Anxiety state, unspecified 3 00.00 ; Depression 311 ; Prediabetes 790.29 ; Generalized osteoarthrosis, involving multiple sites 715.09 and Hypertension 401.9 [facility] [address] [facility] [id number] [address] [place] [phone] Mar, [facility] [address] [facility] [id number] [address] [place] [phone] Feb, [facility] [address] [facility] [id number] [address] [place] [phone] Jan, [facility] [address] [facility] [id number] [address] [place] [phone] Jan, [facility] [address] [facility] [id number] [address] [place] [phone] Jan, Generalized osteoarthrosis, involving multiple sites 715.09 [facility] [address] [facility] [id number] [address] [place] [phone] Jan, Hx of renal cell cancer V10. 52 [facility] [address] [id number] [address] [place] [address] Dec, Generalized osteoarthrosis, involving multiple sites 715.09 and Hx of renal cell cancer V10.52 [facility] [address] [id number] [address] [place] [address] Dec, [facility] [address] [id number] [address] [place] [phone] Dec, [facility] [address] [id number] [address] [place] [phone] November, [facility] [address] [id number] [address] [place] [phone] Oct, [facility] [address] [id number] [address] [place] [phone] Oct, [facility] [address] [id number] [address] [place] [phone] Sep, [facility] [address] [id number] [address] [place] [phone] Sep, [facility] [address] [id number] [address] [place] [phone] Sep, [facility] [address] [id number] [address] [place] [phone] Sep, [facility] [address] [id number] [address] [place] [phone] Aug, [facility] [address] [id number] [address] [place] [phone] Aug, IMMUNIZATIONS Vaccine Route Administration Date Status TDAP (ADACEL) Unknown October 08, 2014 Administered SOCIAL HISTORY Never Assessed REASON FOR VISIT PLAN OF CARE VITAL SIGNS Height 62 in 2014-10-08 Weight 228.1 lbs 2014-10-08 Temperature 97.5 degrees Fahrenheit 2014-10-08 Heart Rate 78 bpm 2014-10-08 Respiratory Rate 18 2014-10-08 Blood pressure systolic 138 mmHg 2014-10-08 Blood pressure diastolic 92 mmHg 2014-10-08 MEDICATIONS Unknown Medications RESULTS No Results PROCEDURES Procedure Date Ordered Result Body Site TEST FOR BLOOD, FECES October 08, 2014 VISIT October 08, 2014 INSTRUCTIONS MEDICATIONS ADMINISTERED No Known Medications MEDICAL (GENERAL) HISTORY Type Description Date Medical History hypertension Medical History Arthritis Medical History chronic pain-in knees bilateral and lowe r back Medical History depression Medical History cancer-right kidney 2004 Medical History obesity Surgical History breast biopsy-right breast, benign Surgical History nephrectomy-right Surgical History partial hysterectomy Surgical History bilateral carpal tunnel release Hospitalization History Hospitalization for surgery only Hospitalization History mini strokes 2015
--- OUTSIDE RECORDS SUMMARY | 2020-02-08 07:09 | XMS REPORT ---
Author Author Emilee MAY Organization [facility] Address [address] [place] [address] Care Team Providers Care Automatic Toe Laster Name Role Phone LALO [place] Unavailable PROBLEMS Type Condition ICD9-CM Code FSB96-QM Code Onset Dates Condition S tatus SNOMED Code Problem Isolated proteinuria without specific morphologic lesion R80.0 Active 15927828 Problem Mixed hyperlipidemia E78.2 Active 953775751 Problem Bilateral carpal tunnel syndrome G56.03 Active 44673521 Problem Obstructive sleep apnea G47.33 Active 42553737 Problem Fatty liver K76.0 Active 29940401 7 Problem Prediabetes R73.09 Active 7390664 Problem Essential hypertension I10 Active 09908607 Problem Paresthesia of both hands R20.2 Acti ve 863209357 Problem Diastolic dysfunction I51.9 Active 5012499 Problem Pulmonary emphysema, unspecified emphysema type J4 3.9 Active 95214353 Problem 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 Active 541370041 Problem Chronic prescription benzodiazepine use Z79.899 Active 276052501 Problem Primary osteoarthritis involving multiple joints M 15.0 Active 246291942 Problem Chronic prescription opiate use Z79.899 Active 329027194 Problem History of renal cell cancer Z85.528 A ctive 002894208 Problem Allergic rhinitis, unspecified J30.9 Active 76271987 Problem Tobacco use Z72.0 Active 81510366 0 Problem Body mass index (bmi) 50-59.9 , adult Z68.43 Active 200818289 Problem Major depressive disorder, recurrent episode, mild degree F33.0 Active 101103468 Problem Generalized anxiety disorder F41.1 A ctive 73208850 Problem Decreased GFR R94.4 Active 726990 04 Problem Splenic artery aneurysm I72.8 Active 72775270 Problem Gastroesophageal reflux disease, esophagitis pre sence not specified K21.9 Active 815317121 Problem Liver mass R16.0 Active 205130793 Problem Restrictive lung disease J98.4 Activ e 89592886 Problem History of tobacco use Z87.891 Active 6064648228796 Problem Excoriation, neurotic L98.1 Active 98137924 Problem BMI 50.0-59.9, adult Z68.43 Active 895722713 Problem 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 Acti ve 027614640 ALLERGIES No Information ENCOUNTERS Encounter Location Date Diagnosis [place] [address] [address] Sep, [place] [address] [address] Sep, [place] [address] [address] Sep, [place] [address] [address] Aug, Decreased GFR R94.4 ; BMI 50 .0-59.9, adult Z68.43 ; Chronic prescription opiate use Z79.899 ; Pulmonary emphysema, unspecified emphysema type J43.9 ; Gastroesophageal reflux disease, esophagitis presence not specified K21.9 and Splenic artery aneurysm I72.8 [place] [address] [address] Aug, Generalized anxiety disorder F41.1 [place] [address] [place] [id number] [place] [address] Aug, [place] [address] [place] [id number] [place] [address] Jul, Generalized anxiety disorder F41.1 [place] [address] [facility] [id number] [address] [place] [address] Jul, [place] [address] [place] [id number] [place] [address] Jun, Decreased GFR R94.4 [place] [address] [place] [id number] [place] [address] Jun, Decreased GFR R94.4 [facility] [address] [facility] [id number] [address] [place] [address] Jun, Generalized anxiety disorder F41.1 [facility] [address] [facility] [id number] [address] [place] [address] Jun, Generalized anxiety disorder F41.1 [facility] [address] [facility] [id number] [address] [place] [phone] Jun, [facility] [address] [facility] [id number] [address] [place] [address] May, BMI 50.0-59.9, adult Z68.43 ; Splenic artery aneurysm I72.8 ; Decreased GFR R94.4 and Encounter for weight management Z76.89 [place] [address] [facility] [id number] [address] [place] [address] May, Decreased GFR R94.4 [place] [address] [facility] [id number] [address] [place] [id number] 16 May, 2018 Mixed hyperlipidemia E78.2 ; Fatty liver K76.0 and Essential hypertension I10 [place] [address] [place] [id number] [place] [phone] 07 May, 2018 Generalized anxiety disorder F41.1 ; Major depressive disorder, recurrent episode, mild degree F33.0 ; 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 and BMI 50.0-59.9, adult Z68.43 [place] [address] [facility] [id number] [address] [place] [id number] May, [place] [address] [facility] [id number] [address] [place] [address] Apr, Generalized anxiety disorder F41.1 and Major depressive disorder, recurrent episode, mild degree F33.0 [place] [address] [facility] [id number] [address] [place] [phone] 15 Apr, 2018 BMI 50.0-59.9, adult Z68.43 and Encounter for weight loss counseling Z71.3 [place] [address] [id number] [address] [place] [address] Apr, [facility] [address] [id number] [address] [place] [address] Mar, Generalized anxiety disorder F41.1 and Major depressive disorder, recurrent episode, mild degree F33.0 [facility] [address] [id number] [address] [place] [address] Mar, [facility] [address] [id number] [address] [place] [phone] Mar, Generalized anxiety disorder F41.1 [place] [address] [id number] [address] [place] [address] Mar, [facility] [address] [id number] [address] [place] [address] Feb, Generalized anxiety disorder F41.1 ; Major depressive disorder, recurrent episode, mild degree F33.0 and 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 [place] [address] [id number] [address] [place] [address] Feb, Generalized anxiety disorder F41.1 and Major depressive disorder, recurrent episode, mild degree F33.0 [place] [address] [id number] [address] [place] [phone] Feb, [place] [address] [facility] [id number] [address] [place] [address] Feb, Restrictive lung disease J98 .4 ; Pulmonary emphysema, unspecified emphysema type J43.9 and Body mass index (bmi) 50-59.9 , adult Z68.43 [place] [address] [id number] [address] [place] [address] Feb, Generalized anxiety disorder F41.1 ; Major depressive disorder, recurrent episode, mild degree F33.0 and 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 [facility] [address] [facility] [id number] [address] [place] [address] Feb, [facility] [address] [facility] [id number] [address] [place] [phone] Jan, [facility] [address] [facility] [id number] [address] [place] [address] Jan, Pulmonary emphysema, unspeci fied emphysema type J43.9 [facility] [address] [id number] [address] [place] [address] [id number] Jan, Dental examination Z01.20 an d Dental caries K02.9 [facility] [address] [facility] [id number] [address] [place] [address] Jan, Generalized anxiety disorder F41.1 and Major depressive disorder, recurrent episode, mild degree F33.0 [facility] [address] [facility] [id number] [address] [place] [address] Jan, [facility] [address] [place] [id number] [place] [phone] Jan, Generalized anxiety disorder F41.1 [facility] [address] [facility] [id number] [address] [place] [address] Jan, Oral abscess K12.2 and BMI 5 0.0-59.9, adult Z68.43 [facility] [address] [place] [id number] [address] [place] [address] Dec, BMI 50.0-59.9, adult Z68.43 and Weight loss counseling, encounter for Z71.3 [facility] [id number] [place] [address] Dec, [facility] [address] [place] [id number] [address] [place] [address] Dec, [facility] [address] [place] [id number] [place] [phone] November, [facility] [address] [facility] [id number] [address] [place] [phone] November, [facility] [address] [address] November, Pulmonary emphysema, unspeci fied emphysema type J43.9 ; Restrictive lung disease J98.4 ; BMI 50.0-59.9, adult Z68.43 ; History of renal cell cancer Z85.528 ; Essential hypertension I10 ; Mixed hyperlipidemia E78.2 and Fatty liver K76.0 [facility] [address] [facility] [id number] [address] [place] [id number] November, Generalized anxiety disorder F41.1 [facility] [address] [facility] [id number] [address] [place] [address] November, Generalized anxiety disorder F41.1 and Major depressive disorder, recurrent episode, mild degree F33.0 [place] [address] [facility] [id number] [address] [place] [phone] November, Generalized anxiety disorder F41.1 ; Major depressive disorder, recurrent episode, mild degree F33.0 and 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 [place] [address] [facility] [id number] [address] [place] [address] November, [facility] [address] [facility] [id number] [address] [place] [phone] Oct, Generalized anxiety disorder F41.1 [facility] [address] [facility] [id number] [address] [place] [phone] Oct, [place] [address] [facility] [id number] [address] [place] [address] Oct, Influenza-like illness R69 [facility] [address] [facility] [id number] [address] [place] [phone] Sep, Influenza-like illness R69 [facility] [address] [facility] [id number] [address] [place] [address] Sep, Generalized anxiety disorder F41.1 [facility] [address] [facility] [id number] [address] [place] [phone] Sep, [facility] [address] [facility] [id number] [address] [place] [phone] Aug, [facility] [address] [facility] [id number] [address] [place] [phone] Aug, [facility] [address] [place] [id number] [address] [place] [address] Aug, Generalized anxiety disorder F41.1 [facility] [address] [place] [id number] [address] [place] [address] Aug, Influenza-like illness R69 a nd BMI 50.0-59.9, adult Z68.43 [facility] [address] [place] [id number] [address] [place] [address] Jul, Fatty liver K76.0 ; Restrict jean-paul lung disease J98.4 ; Diastolic dysfunction I51.9 ; Body mass index (bmi) 50-59.9 , adult Z68.43 and Chronic prescription opiate use Z79.899 [facility] [address] [place] [id number] [place] [address] Jul, Generalized anxiety disorder F41.1 [facility] [address] [place] [id number] [place] [address] Jul, Generalized anxiety disorder F41.1 [facility] [address] [address] Jul, 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 [facility] [address] [place] [id number] [address] [place] [id number] Jun, Generalized anxiety disorder F41.1 [facility] [address] [facility] [id number] [address] [place] [phone] Jun, [facility] [id number] [place] [address] Jun, Mixed hyperlipidemia E78.2 [facility] [address] [place] [id number] [address] [place] [id number] Jun, Generalized anxiety disorder F41.1 [place] [address] [id number] [address] [place] [address] Jun, Generalized anxiety disorder F41.1 ; Major depressive disorder, recurrent episode, mild degree F33.0 and 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 [facility] [address] [id number] [address] [place] [id number] May, [facility] [address] [facility] [id number] [address] [place] [address] May, Generalized anxiety disorder F41.1 [facility] [address] [id number] [address] [place] [address] May, Generalized anxiety disorder F41.1 [place] [address] [facility] [id number] [address] [place] [phone] May, 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 [place] [address] [facility] [id number] [address] [place] [phone] Apr, Major depressive disorder, r ecurrent episode, mild degree F33.0 ; Generalized anxiety disorder F41.1 and Excoriation, neurotic L98.1 [place] [address] [facility] [id number] [address] [place] [address] Apr, 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 [place] [address] [facility] [id number] [address] [place] [address] Apr, Essential hypertension I10 a nd Mixed hyperlipidemia E78.2 [facility] [address] [id number] [address] [place] [address] Apr, Generalized anxiety disorder F41.1 ; Major depressive disorder, recurrent episode, mild degree F33.0 and 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 [place] [address] [facility] [id number] [address] [place] [phone] Mar, Generalized anxiety disorder F41.1 ; Major depressive disorder, recurrent episode, mild degree F33.0 and 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 [place] [address] [id number] [address] [place] [phone] Mar, Skin lesion L98.9 [facility] [address] [facility] [id number] [address] [place] [address] Mar, 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 [facility] [address] [id number] [address] [place] [id number] Mar, [facility] [address] [id number] [address] [place] [phone] Mar, [facility] [address] [facility] [id number] [address] [place] [address] Feb, Major depressive disorder, r ecurrent episode, mild degree F33.0 ; Generalized anxiety disorder F41.1 and Excoriation, neurotic L98.1 [facility] [address] [facility] [id number] [address] [place] [phone] Feb, Generalized anxiety disorder F41.1 [facility] [address] [facility] [id number] [address] [place] [address] Feb, 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 [facility] [address] [facility] [id number] [address] [place] [address] Jan, [facility] [address] [facility] [id number] [address] [place] [address] Jan, Essential hypertension I10 ; Splenic artery aneurysm I72.8 ; Liver mass R16.0 ; Restrictive lung disease J98.4 ; Primary osteoarthritis involving multiple joints M15.0 ; Mixed hyperlipidemia E78.2 ; Bilateral carpal tunnel syndrome G56.03 ; Body mass index (bmi) 50-59.9 , adult Z68.43 and History of tobacco use Z87.891 [facility] [address] [facility] [id number] [address] [place] [id number] Jan, Major depressive disorder, r ecurrent episode, mild degree F33.0 and Generalized anxiety disorder F41.1 [place] [address] [facility] [id number] [address] [place] [phone] Jan, [facility] [address] [id number] [address] [place] [address] Jan, Generalized anxiety disorder F41.1 and Major depressive disorder, recurrent episode, mild degree F33.0 [facility] [address] [facility] [id number] [address] [place] [address] Dec, 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 [facility] [address] [facility] [id number] [address] [place] [address] Dec, Generalized anxiety disorder F41.1 [facility] [address] [facility] [id number] [address] [place] [address] Dec, [facility] [address] [facility] [id number] [address] [place] [address] Dec, Major depressive disorder, r ecurrent episode, mild degree F33.0 and Generalized anxiety disorder F41.1 [facility] [address] [facility] [id number] [address] [place] [address] Dec, Generalized anxiety disorder F41.1 and Major depressive disorder, recurrent episode, mild degree F33.0 [facility] [address] [facility] [id number] [address] [place] [address] November, Mild major depression F32.0 and Primary osteoarthritis involving multiple joints M15.0 [facility] [address] [facility] [id number] [address] [place] [address] November, Major depressive disorder, r ecurrent episode, mild degree F33.0 and Generalized anxiety disorder F41.1 [facility] [address] [facility] [id number] [address] [place] [address] November, 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 ; Essential hypertension I10 ; Prediabetes R73.09 ; Mixed hyperlipidemia E78.2 ; Chronic prescription benzodiazepine use Z79.899 ; Chronic prescription opiate use Z79.899 ; Tobacco use Z72.0 ; Bilateral carpal tunnel syndrome G56.03 and Body mass index (bmi) 50-59.9 , adult Z68.43 [facility] [address] [place] [id number] [place] [address] November, 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 and Mild major depression F32.0 [place] [address] [place] [id number] [address] [place] [address] Oct, [place] [address] [place] [id number] [place] [address] Oct, 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 ; Essential hypertension I10 ; Prediabetes R73.09 ; Chronic prescription benzodiazepine use Z79.899 ; Chronic prescription opiate use Z79.899 ; Tobacco use Z72.0 ; Mixed hyperlipidemia E78.2 ; Bilateral carpal tunnel syndrome G56.03 ; Body mass index (bmi) 50-59.9 , adult Z68.43 and Encounter for immunization Z23 [place] [address] [address] Oct, Major depressive disorder, r ecurrent episode, mild degree F33.0 and Generalized anxiety disorder F41.1 [place] [address] [address] Oct, [place] [address] [place] [id number] [place] [address] Oct, [place] [address] [place] [id number] [place] [address] Sep, Mild major depression F32.0 [place] [address] [place] [id number] [place] [address] Sep, [place] [address] [place] [id number] [place] [address] Sep, Mild major depression F32.0 and Generalized anxiety disorder F41.1 [place] [address] [place] [id number] [place] [address] Sep, Paresthesia of both hands R2 0.2 and Cervical radiculopathy M54.12 [facility] [address] [facility] [id number] [address] [place] [address] Sep, [facility] [address] [facility] [id number] [address] [place] [address] Sep, [facility] [address] [facility] [id number] [address] [place] [address] Aug, Paresthesia of both hands R2 0.2 and Neck pain M54.2 [place] [address] [facility] [id number] [address] [place] [address] Aug, [place] [address] [facility] [id number] [place] [phone] Jul, Neck pain M54.2 and Paresthe eddie of both hands R20.2 [place] [address] [facility] [id number] [address] [place] [address] Jul, Proteinuria, unspecified typ e R80.9 [place] [address] [facility] [id number] [address] [place] [address] Jul, Proteinuria, unspecified typ e R80.9 [place] [address] [facility] [id number] [address] [place] [phone] Jul, [place] [address] [facility] [id number] [address] [place] [address] Jul, Other specified transient ce rebral ischemias G45.8 [place] [address] [facility] [id number] [address] [place] [address] Jun, Diastolic dysfunction I51.9 [place] [address] [facility] [id number] [address] [place] [address] Jun, Diastolic dysfunction I51.9 [place] [address] [facility] [id number] [address] [place] [id number] Jun, Major depressive disorder, s david episode, unspecified F32.9 and Anxiety disorder, unspecified F41.9 [facility] [address] [facility] [id number] [address] [place] [phone] Jun, [facility] [address] [place] [id number] [place] [phone] Jun, [facility] [address] [facility] [id number] [address] [place] [phone] May, Moderate major depression F3 2.1 and Generalized anxiety disorder F41.1 [facility] [address] [facility] [id number] [address] [place] [phone] 16 May, 2016 Major depressive disorder, s david episode, unspecified F32.9 and Anxiety disorder, unspecified F41.9 [facility] [address] [facility] [id number] [address] [place] [phone] 15 May, 2016 [facility] [address] [place] [id number] [place] [address] 14 May, 2016 Liver enzyme elevation R74.8 [facility] [address] [place] [id number] [place] [id number] 14 May, 2016 Liver enzyme elevation R74.8 [facility] [id number] [place] [id number] 10 May, 2016 Shortness of breath on exert ion R06.02 ; Essential hypertension I10 ; Mixed hyperlipidemia E78.2 and Tobacco use Z72.0 [facility] [id number] [place] [id number] 03 May, 2016 [facility] [address] [facility] [id number] [address] [place] [phone] May, [facility] [address] [id number] [address] [place] [phone] 06 Apr, 2016 Anxiety F41.9 and Depression F32.9 [facility] [address] [id number] [address] [place] [phone] Apr, [facility] [address] [id number] [address] [place] [phone] Apr, [facility] [address] [id number] [address] [place] [phone] Mar, Depression F32.9 and Anxiety F41.9 [facility] [address] [id number] [address] [place] [phone] 08 Mar, 2016 Anxiety F41.9 and Depression F32.9 [facility] [address] [id number] [address] [place] [id number] 06 Mar, 2016 Well woman exam (no gynecolo gical exam) Z00.00 [facility] [address] [id number] [address] [place] [phone] Mar, [facility] [address] [id number] [address] [place] [phone] Mar, [facility] [address] [id number] [address] [place] [address] [id number] Feb, Dental caries K02.9 [facility] [address] [id number] [address] [place] [phone] Feb, [facility] [address] [id number] [address] [place] [phone] Feb, Anxiety F41.9 and Depression F32.9 [facility] [address] [id number] [address] [place] [address] [id number] Feb, Dental examination Z01.20 [facility] [address] [id number] [address] [place] [phone] Feb, [facility] [address] [id number] [address] [place] [phone] Feb, [facility] [address] [id number] [address] [place] [phone] Feb, Anxiety F41.9 and Depression F32.9 [facility] [address] [id number] [address] [place] [phone] Jan, Severe episode of recurrent major depressive disorder, without psychotic features F33.2 and Anxiety disorder, unspecified F41.9 [facility] [address] [id number] [address] [place] [phone] Jan, [facility] [address] [id number] [address] [place] [phone] Dec, [facility] [address] [id number] [address] [place] [phone] Dec, Anxiety F41.9 and Depression F32.9 [facility] [address] [id number] [address] [place] [phone] 24 Dec, 2015 Other specified transient ce rebral ischemias G45.8 and Nocturnal hypoxia G47.34 [facility] [address] [id number] [address] [place] [phone] 18 Dec, 2015 [facility] [address] [id number] [address] [place] [phone] Dec, Other specified transient ce rebral ischemias G45.8 [facility] [address] [id number] [address] [place] [id number] 16 Dec, 2015 Severe episode of recurrent major depressive disorder, without psychotic features F33.2 and Anxiety disorder, unspecified F41.9 [facility] [address] [id number] [address] [place] [id number] Dec, [facility] [address] [id number] [address] [place] [phone] Dec, Anxiety F41.9 and Depression F32.9 [facility] [address] [id number] [address] [place] [phone] Dec, Anxiety F41.9 and Depression F32.9 [facility] [address] [id number] [address] [place] [phone] Dec, [facility] [address] [id number] [address] [place] [phone] November, Anxiety F41.9 and Depression F32.9 [facility] [address] [facility] [id number] [address] [place] [phone] November, Severe episode of recurrent major depressive disorder, without psychotic features F33.2 [facility] [address] [facility] [id number] [address] [place] [phone] November, Mixed hyperlipidemia E78.2 [place] [address] [facility] [id number] [address] [place] [phone] November, Anxiety F41.9 and Depression F32.9 [place] [address] [id number] [address] [place] [phone] November, Prediabetes R73.09 ; Essenti al hypertension I10 ; Anxiety F41.9 ; Depression F32.9 ; Gastroesophageal reflux disease, esophagitis presence not specified K21.9 ; Primary osteoarthritis involving multiple joints M15.0 ; History of renal cell cancer Z85.528 ; Postnasal drip R09.82 ; Allergic rhinitis, unspecified J30.9 and Tobacco use Z72.0 [place] [address] [id number] [address] [place] [phone] Oct, Anxiety F41.9 and Depression F32.9 [place] [address] [facility] [id number] [address] [place] [phone] Oct, [place] [address] [facility] [id number] [address] [place] [phone] Oct, [place] [address] [facility] [id number] [address] [place] [phone] 14 Sep, 2015 Splenic artery aneurysm I72. 8 [place] [address] [facility] [id number] [address] [place] [phone] 10 Sep, 2015 Depression F32.9 ; Anxiety F 41.9 ; Chronic prescription benzodiazepine use Z79.899 and Splenic artery aneurysm I72.8 [place] [address] [facility] [id number] [address] [place] [phone] 10 Sep, 2015 Depression F32.9 and Anxiety F41.9 [facility] [address] [id number] [address] [place] [phone] Sep, [facility] [address] [id number] Aug, Dehydration E86.0 ; Diarrhea R19.7 ; Nausea R11.0 and Generalized abdominal pain R10.84 [facility] [address] [id number] Aug, [facility] [address] [id number] Jul, Depression F32.9 [facility] [address] [id number] Jul, [facility] [address] [id number] Jul, Anxiety F41.9 and Depression F32.9 [facility] [address] [id number] Jul, [facility] [address] [id number] Jun, Epigastric pain R10.13 [facility] [address] [id number] Jun, [facility] [address] [id number] Jun, [facility] [address] [id number] May, [facility] [address] [id number] May, [facility] [address] [id number] [address] [place] [phone] Apr, [facility] [address] [id number] Mar, Anxiety state, unspecified 3 00.00 ; Depression 311 ; Prediabetes 790.29 ; Generalized osteoarthrosis, involving multiple sites 715.09 and Hypertension 401.9 [facility] [address] [id number] [address] [place] [phone] Mar, [facility] [address] [id number] [address] [place] [phone] Feb, [facility] [address] [id number] [address] [place] [phone] Jan, [facility] [address] [id number] [address] [place] [phone] Jan, [facility] [address] [id number] [address] [place] [phone] Jan, Generalized osteoarthrosis, involving multiple sites 715.09 [facility] [address] [id number] [address] [place] [phone] Jan, Hx of renal cell cancer V10. 52 [facility] [address] [id number] [address] [place] [id number] Dec, Generalized osteoarthrosis, involving multiple sites 715.09 and Hx of renal cell cancer V10.52 [facility] [address] [id number] [address] [place] [id number] Dec, [facility] [address] [id number] [address] [place] [phone] Dec, [facility] [address] [id number] [address] [place] [phone] November, [facility] [address] [id number] [address] [place] [id number] Oct, [facility] [address] [id number] [address] [place] [phone] Oct, [facility] [address] [id number] [address] [place] [phone] Sep, [facility] [address] [facility] [id number] [address] [place] [phone] Sep, [facility] [address] [facility] [id number] [address] [place] [phone] Sep, [facility] [address] [facility] [id number] [address] [place] [id number] Sep, [facility] [address] [facility] [id number] [address] [place] [phone] Aug, [facility] [address] [facility] [id number] [address] [place] [phone] Aug, IMMUNIZATIONS No Known Immunizations SOCIAL HISTORY Never Assessed REASON FOR VISIT Controlled Medication Refill PLAN OF CARE VITAL SIGNS MEDICATIONS Medication Instructions Dosage Frequency Start Date End Date Duration S tatus Hydrocodone-Acetaminophen 5-325 MG Orally 2 times a day as n eeded for pain take 1 tablet Sep, 28 Active RESULTS No Results PROCEDURES No [...]
--- OUTSIDE RECORDS SUMMARY | 2020-02-08 07:09 | XMS REPORT ---
Author Author Emilee Lao Doctor Organization [facility] Address Unknown Phone Unavailable Care Team Providers Care Skein Winder Name Role Phone Migration, Doctor Unavailable Unavailable PROBLEMS Type Condition ICD9-CM Code [id number] Code Onset Dates Condition S tatus SNOMED Code Problem Isolated proteinuria without specific morphologic lesion R80.0 Active 00766297 Problem Mixed hyperlipidemia E78.2 Active 435002051 Problem Bilateral carpal tunnel syndrome G56.03 Active 03022669 Problem Obstructive sleep apnea G47.33 Active 22121098 Problem Fatty liver K76.0 Active 35359165 7 Problem Prediabetes R73.09 Active 7554915 Problem Essential hypertension I10 Active 85470895 Problem Paresthesia of both hands R20.2 Acti ve 756962370 Problem Diastolic dysfunction I51.9 Active 6546480 Problem Pulmonary emphysema, unspecified emphysema type J4 3.9 Active 20776433 Problem 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 Active 630437166 Problem Chronic prescription benzodiazepine use Z79.899 Active 039917380 Problem Primary osteoarthritis involving multiple joints M 15.0 Active 066850882 Problem Chronic prescription opiate use Z79.899 Active 616430585 Problem History of renal cell cancer Z85.528 A ctive 234239415 Problem Allergic rhinitis, unspecified J30.9 Active 38225473 Problem Tobacco use Z72.0 Active 05192530 0 Problem Body mass index (bmi) 50-59.9 , adult Z68.43 Active 815310457 Problem Major depressive disorder, recurrent episode, mild degree F33.0 Active 080364145 Problem Generalized anxiety disorder F41.1 A ctive 51128354 Problem Decreased GFR R94.4 Active 460526 04 Problem Splenic artery aneurysm I72.8 Active 88775603 Problem Gastroesophageal reflux disease, esophagitis pre sence not specified K21.9 Active 547779797 Problem Liver mass R16.0 Active 710416535 Problem Restrictive lung disease J98.4 Activ e 82605468 Problem History of tobacco use Z87.891 Active 8718735762366 Problem Excoriation, neurotic L98.1 Active 24533940 Problem BMI 50.0-59.9, adult Z68.43 Active 592266785 Problem 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 Acti ve 167111793 ALLERGIES No Information ENCOUNTERS Encounter Location Date Diagnosis [facility] [address] [facility] [id number] [address] [place] [address] Sep, [facility] [address] [facility] [id number] [address] [place] [address] Sep, [facility] [address] [facility] [id number] [address] [place] [address] Aug, Decreased GFR R94.4 ; BMI 50 .0-59.9, adult Z68.43 ; Chronic prescription opiate use Z79.899 ; Pulmonary emphysema, unspecified emphysema type J43.9 ; Gastroesophageal reflux disease, esophagitis presence not specified K21.9 and Splenic artery aneurysm I72.8 [facility] [address] [facility] [id number] [address] [place] [address] Aug, Generalized anxiety disorder F41.1 [facility] [address] [place] [id number] [address] [place] [address] Aug, [facility] [address] [place] [id number] [address] [place] [address] Jul, Generalized anxiety disorder F41.1 [facility] [address] [facility] [id number] [address] [place] [address] Jul, [facility] [address] [facility] [id number] [address] [place] [address] Jun, Decreased GFR R94.4 [place] [address] [place] [id number] [address] [place] [address] Jun, Decreased GFR R94.4 [facility] [address] [facility] [id number] [address] [place] [address] Jun, Generalized anxiety disorder F41.1 [facility] [address] [facility] [id number] [address] [place] [address] Jun, Generalized anxiety disorder F41.1 [place] [id number] [facility] [id number] [address] [place] [address] Jun, [facility] [address] [facility] [id number] [address] [place] [address] May, BMI 50.0-59.9, adult Z68.43 ; Splenic artery aneurysm I72.8 ; Decreased GFR R94.4 and Encounter for weight management Z76.89 [place] [address] [facility] [id number] [address] [place] [address] May, Decreased GFR R94.4 [place] [address] [facility] [id number] [address] [place] [address] 16 May, 2018 Mixed hyperlipidemia E78.2 ; Fatty liver K76.0 and Essential hypertension I10 [place] [address] [place] [id number] [address] [place] [address] 07 May, 2018 Generalized anxiety disorder F41.1 ; Major depressive disorder, recurrent episode, mild degree F33.0 ; 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 and BMI 50.0-59.9, adult Z68.43 [place] [address] [place] [id number] [address] [place] [address] May, [place] [address] [place] [id number] [address] [place] [address] Apr, Generalized anxiety disorder F41.1 and Major depressive disorder, recurrent episode, mild degree F33.0 [place] [address] [facility] [id number] [address] [place] [address] 15 Apr, 2018 BMI 50.0-59.9, adult Z68.43 and Encounter for weight loss counseling Z71.3 [place] [address] [facility] [id number] [address] [place] [address] Apr, [place] [address] [place] [id number] [address] [place] [address] Mar, Generalized anxiety disorder F41.1 and Major depressive disorder, recurrent episode, mild degree F33.0 [facility] [address] [id number] [address] [place] [address] 18 Mar, 2018 [facility] [address] [id number] [address] [place] [address] Mar, Generalized anxiety disorder F41.1 [facility] [address] [id number] [address] [place] [address] Mar, [facility] [address] [id number] [address] [place] [address] Feb, Generalized anxiety disorder F41.1 ; Major depressive disorder, recurrent episode, mild degree F33.0 and 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 [place] [address] [id number] [address] [place] [address] Feb, Generalized anxiety disorder F41.1 and Major depressive disorder, recurrent episode, mild degree F33.0 [facility] [address] [id number] [address] [place] [address] Feb, [facility] [address] [id number] [address] [place] [address] Feb, Restrictive lung disease J98 .4 ; Pulmonary emphysema, unspecified emphysema type J43.9 and Body mass index (bmi) 50-59.9 , adult Z68.43 [facility] [address] [facility] [id number] [address] [place] [address] Feb, Generalized anxiety disorder F41.1 ; Major depressive disorder, recurrent episode, mild degree F33.0 and 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 [facility] [address] [id number] [address] [place] [address] Feb, [facility] [address] [id number] [address] [place] [address] Jan, [facility] [address] [id number] [address] [place] [address] Jan, Pulmonary emphysema, unspeci fied emphysema type J43.9 [facility] [address] [id number] [address] [place] [id number] Jan, Dental examination Z01.20 an d Dental caries K02.9 [facility] [address] [facility] [id number] [address] [place] [address] Jan, Generalized anxiety disorder F41.1 and Major depressive disorder, recurrent episode, mild degree F33.0 [facility] [id number] [place] [address] Jan, [facility] [address] [place] [id number] [address] [place] [address] Jan, Generalized anxiety disorder F41.1 [facility] [address] [facility] [id number] [address] [place] [address] Jan, Oral abscess K12.2 and BMI 5 0.0-59.9, adult Z68.43 [place] [id number] [place] [address] Dec, BMI 50.0-59.9, adult Z68.43 and Weight loss counseling, encounter for Z71.3 [place] [address] [place] [id number] [address] [place] [address] Dec, [place] [address] [place] [id number] [address] [place] [address] Dec, [facility] [address] [place] [id number] [address] [place] [address] November, [facility] [address] [place] [id number] [address] [place] [address] November, [facility] [address] [address] November, Pulmonary emphysema, unspeci fied emphysema type J43.9 ; Restrictive lung disease J98.4 ; BMI 50.0-59.9, adult Z68.43 ; History of renal cell cancer Z85.528 ; Essential hypertension I10 ; Mixed hyperlipidemia E78.2 and Fatty liver K76.0 [facility] [address] [facility] [id number] [address] [place] [address] November, Generalized anxiety disorder F41.1 [facility] [address] [facility] [id number] [address] [place] [address] November, Generalized anxiety disorder F41.1 and Major depressive disorder, recurrent episode, mild degree F33.0 [facility] [address] [id number] [address] [place] [address] November, Generalized anxiety disorder F41.1 ; Major depressive disorder, recurrent episode, mild degree F33.0 and 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 [facility] [address] [facility] [id number] [address] [place] [address] November, [facility] [address] [facility] [id number] [address] [place] [address] Oct, Generalized anxiety disorder F41.1 [facility] [address] [id number] [address] [place] [address] Oct, [facility] [address] [facility] [id number] [address] [place] [address] Oct, Influenza-like illness R69 [facility] [address] [facility] [id number] [address] [place] [address] Sep, Influenza-like illness R69 [facility] [address] [facility] [id number] [address] [place] [address] Sep, Generalized anxiety disorder F41.1 [facility] [address] [id number] [address] [place] [address] Sep, [facility] [address] [facility] [id number] [address] [place] [address] Aug, [facility] [address] [facility] [id number] [address] [place] [address] Aug, [facility] [address] [place] [id number] [address] [place] [address] Aug, Generalized anxiety disorder F41.1 [facility] [address] [address] Aug, Influenza-like illness R69 a nd BMI 50.0-59.9, adult Z68.43 [facility] [address] [address] Jul, Fatty liver K76.0 ; Restrict jean-paul lung disease J98.4 ; Diastolic dysfunction I51.9 ; Body mass index (bmi) 50-59.9 , adult Z68.43 and Chronic prescription opiate use Z79.899 [facility] [address] [address] Jul, Generalized anxiety disorder F41.1 [facility] [address] [address] Jul, Generalized anxiety disorder F41.1 [facility] [address] [address] Jul, 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 [facility] [address] [address] Jun, Generalized anxiety disorder F41.1 [facility] [address] [address] Jun, [facility] [address] [address] Jun, Mixed hyperlipidemia E78.2 [facility] [address] [address] Jun, Generalized anxiety disorder F41.1 [facility] [address] [address] Jun, Generalized anxiety disorder F41.1 ; Major depressive disorder, recurrent episode, mild degree F33.0 and 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 [facility] [address] [id number] [address] [place] [address] May, [facility] [address] [id number] [address] [place] [address] May, Generalized anxiety disorder F41.1 [facility] [address] [id number] [address] [place] [address] May, Generalized anxiety disorder F41.1 [facility] [address] [id number] [address] [place] [address] May, 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 [facility] [address] [id number] [address] [place] [address] Apr, Major depressive disorder, r ecurrent episode, mild degree F33.0 ; Generalized anxiety disorder F41.1 and Excoriation, neurotic L98.1 [place] [address] [id number] [address] [place] [address] Apr, 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 [facility] [address] [id number] [address] [place] [address] Apr, Essential hypertension I10 a nd Mixed hyperlipidemia E78.2 [facility] [address] [id number] [address] [place] [address] Apr, Generalized anxiety disorder F41.1 ; Major depressive disorder, recurrent episode, mild degree F33.0 and 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 [facility] [address] [id number] [address] [place] [address] Mar, Generalized anxiety disorder F41.1 ; Major depressive disorder, recurrent episode, mild degree F33.0 and 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 [facility] [address] [id number] [address] [place] [address] Mar, Skin lesion L98.9 [facility] [address] [id number] [address] [place] [address] Mar, 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 [facility] [address] [id number] [address] [place] [address] Mar, [facility] [address] [id number] [address] [place] [address] Mar, [facility] [address] [id number] [address] [place] [address] Feb, Major depressive disorder, r ecurrent episode, mild degree F33.0 ; Generalized anxiety disorder F41.1 and Excoriation, neurotic L98.1 [facility] [address] [id number] [address] [place] [address] Feb, Generalized anxiety disorder F41.1 [facility] [address] [id number] [address] [place] [address] Feb, 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 [facility] [address] [facility] [id number] [address] [place] [address] Jan, [facility] [address] [facility] [id number] [address] [place] [address] Jan, Essential hypertension I10 ; Splenic artery aneurysm I72.8 ; Liver mass R16.0 ; Restrictive lung disease J98.4 ; Primary osteoarthritis involving multiple joints M15.0 ; Mixed hyperlipidemia E78.2 ; Bilateral carpal tunnel syndrome G56.03 ; Body mass index (bmi) 50-59.9 , adult Z68.43 and History of tobacco use Z87.891 [facility] [address] [id number] [address] [place] [address] Jan, Major depressive disorder, r ecurrent episode, mild degree F33.0 and Generalized anxiety disorder F41.1 [facility] [address] [facility] [id number] [address] [place] [address] Jan, [facility] [address] [facility] [id number] [address] [place] [address] Jan, Generalized anxiety disorder F41.1 and Major depressive disorder, recurrent episode, mild degree F33.0 [facility] [address] [id number] [address] [place] [address] Dec, 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 [facility] [address] [id number] [address] [place] [address] Dec, Generalized anxiety disorder F41.1 [facility] [address] [facility] [id number] [address] [place] [address] Dec, [place] [address] [id number] [address] [place] [address] Dec, Major depressive disorder, r ecurrent episode, mild degree F33.0 and Generalized anxiety disorder F41.1 [place] [address] [facility] [id number] [address] [place] [address] Dec, Generalized anxiety disorder F41.1 and Major depressive disorder, recurrent episode, mild degree F33.0 [place] [address] [facility] [id number] [address] [place] [address] November, Mild major depression F32.0 and Primary osteoarthritis involving multiple joints M15.0 [place] [address] [facility] [id number] [address] [place] [address] November, Major depressive disorder, r ecurrent episode, mild degree F33.0 and Generalized anxiety disorder F41.1 [place] [address] [facility] [id number] [address] [place] [address] November, 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 ; Essential hypertension I10 ; Prediabetes R73.09 ; Mixed hyperlipidemia E78.2 ; Chronic prescription benzodiazepine use Z79.899 ; Chronic prescription opiate use Z79.899 ; Tobacco use Z72.0 ; Bilateral carpal tunnel syndrome G56.03 and Body mass index (bmi) 50-59.9 , adult Z68.43 [facility] [address] [facility] [id number] [address] [place] [address] November, 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 and Mild major depression F32.0 [facility] [address] [facility] [id number] [address] [place] [address] Oct, [facility] [address] [facility] [id number] [address] [place] [address] Oct, 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 ; Essential hypertension I10 ; Prediabetes R73.09 ; Chronic prescription benzodiazepine use Z79.899 ; Chronic prescription opiate use Z79.899 ; Tobacco use Z72.0 ; Mixed hyperlipidemia E78.2 ; Bilateral carpal tunnel syndrome G56.03 ; Body mass index (bmi) 50-59.9 , adult Z68.43 and Encounter for immunization Z23 [place] [id number] [facility] [id number] [address] [place] [address] Oct, Major depressive disorder, r ecurrent episode, mild degree F33.0 and Generalized anxiety disorder F41.1 [facility] [address] [place] [id number] [address] [place] [address] Oct, [facility] [address] [place] [id number] [address] [place] [address] Oct, [facility] [address] [place] [id number] [address] [place] [address] Sep, Mild major depression F32.0 [facility] [address] [place] [id number] [address] [place] [address] Sep, [facility] [address] [place] [id number] [address] [place] [address] Sep, Mild major depression F32.0 and Generalized anxiety disorder F41.1 [facility] [address] [facility] [id number] [address] [place] [address] Sep, Paresthesia of both hands R2 0.2 and Cervical radiculopathy M54.12 [facility] [address] [place] [id number] [address] [place] [address] Sep, [place] [address] [place] [id number] [place] [address], [place] [address] Sep, [facility] [address] [facility] [id number] [address] [place] [address] Aug, Paresthesia of both hands R2 0.2 and Neck pain M54.2 [facility] [address] [facility] [id number] [address] [place] [address] Aug, [facility] [address] [facility] [id number] [address] [place] [address] Jul, Neck pain M54.2 and Paresthe eddie of both hands R20.2 [place] [address] [place] [id number] [place] [address] Jul, Proteinuria, unspecified typ e R80.9 [place] [address] [place] [id number] [place] [address] Jul, Proteinuria, unspecified typ e R80.9 [facility] [address] [place] [id number] [address] [place] [address] Jul, [facility] [address] [place] [id number] [place] [address] Jul, Other specified transient ce rebral ischemias G45.8 [place] [address] [place] [id number] [place] [address] Jun, Diastolic dysfunction I51.9 [facility] [address] [place] [id number] [address] [place] [address] Jun, Diastolic dysfunction I51.9 [facility] [address] [place] [id number] [address] [place] [address] Jun, Major depressive disorder, s david episode, unspecified F32.9 and Anxiety disorder, unspecified F41.9 [facility] [address] [place] [id number] [address] [place] [address] Jun, [facility] [address] [place] [id number] [address] [place] [address] Jun, [facility] [address] [place] [id number] [address] [place] [address] 22 May, 2016 Moderate major depression F3 2.1 and Generalized anxiety disorder F41.1 [facility] [address] [place] [id number] [address] [place] [address] 16 May, 2016 Major depressive disorder, s david episode, unspecified F32.9 and Anxiety disorder, unspecified F41.9 [facility] [address] [address] 15 May, 2016 [facility] [address] [address] 14 May, 2016 Liver enzyme elevation R74.8 [facility] [address] [id number] 14 May, 2016 Liver enzyme elevation R74.8 [facility] [address] [id number] 10 May, 2016 Shortness of breath on exert ion R06.02 ; Essential hypertension I10 ; Mixed hyperlipidemia E78.2 and Tobacco use Z72.0 [facility] [address] [id number] 03 May, 2016 [facility] [address] [id number] [address] [place] [phone] May, [facility] [address] [phone] Apr, Anxiety F41.9 and Depression F32.9 [facility] [id number] [place] [phone] Apr, [facility] [address] [address] [id number] Apr, [facility] [address] [id number] [address] [place] [phone] Mar, Depression F32.9 and Anxiety F41.9 [facility] [address] [id number] [address] [place] [phone] 08 Mar, 2016 Anxiety F41.9 and Depression F32.9 [facility] [address] [id number] [address] [place] [phone] 06 Mar, 2016 Well woman exam (no gynecolo gical exam) Z00.00 [facility] [address] [id number] [address] [place] [phone] Mar, [facility] [address] [id number] [address] [place] [phone] Mar, [facility] [address] [id number] [address] [place] [id number] Feb, Dental caries K02.9 [facility] [address] [id number] [address] [place] [phone] Feb, [facility] [address] [id number] [address] [place] [phone] Feb, Anxiety F41.9 and Depression F32.9 [facility] [address] [id number] [address] [place] [id number] Feb, Dental examination Z01.20 [facility] [address] [id number] [address] [place] [phone] Feb, [facility] [address] [id number] [address] [place] [phone] Feb, [facility] [address] [id number] [address] [place] [phone] Feb, Anxiety F41.9 and Depression F32.9 [facility] [address] [id number] [address] [place] [phone] Jan, Severe episode of recurrent major depressive disorder, without psychotic features F33.2 and Anxiety disorder, unspecified F41.9 [facility] [address] [id number] [address] [place] [phone] Jan, [facility] [address] [id number] [address] [place] [phone] 30 Dec, 2015 [facility] [address] [id number] [address] [place] [phone] Dec, Anxiety F41.9 and Depression F32.9 [facility] [address] [id number] [address] [place] [phone] 24 Dec, 2015 Other specified transient ce rebral ischemias G45.8 and Nocturnal hypoxia G47.34 [facility] [address] [id number] [address] [place] [phone] 18 Dec, 2015 [facility] [address] [id number] [address] [place] [phone] 17 Dec, 2015 Other specified transient ce rebral ischemias G45.8 [facility] [address] [id number] [address] [place] [phone] 16 Dec, 2015 Severe episode of recurrent major depressive disorder, without psychotic features F33.2 and Anxiety disorder, unspecified F41.9 [facility] [address] [id number] [address] [place] [phone] Dec, [facility] [address] [id number] [address] [place] [phone] Dec, Anxiety F41.9 and Depression F32.9 [facility] [address] [id number] [address] [place] [phone] Dec, Anxiety F41.9 and Depression F32.9 [facility] [address] [id number] [address] [place] [phone] Dec, [facility] [address] [id number] [address] [place] [phone] November, Anxiety F41.9 and Depression F32.9 [facility] [address] [id number] [address] [place] [phone] November, Severe episode of recurrent major depressive disorder, without psychotic features F33.2 [facility] [address] [facility] [id number] [address] [place] [phone] 11 Nov, 2015 Mixed hyperlipidemia E78.2 [facility] [address] [id number] [address] [place] [phone] 10 Nov, 2015 Anxiety F41.9 and Depression F32.9 [facility] [address] [id number] [address] [place] [phone] 05 Nov, 2015 Prediabetes R73.09 ; Essenti al hypertension I10 ; Anxiety F41.9 ; Depression F32.9 ; Gastroesophageal reflux disease, esophagitis presence not specified K21.9 ; Primary osteoarthritis involving multiple joints M15.0 ; History of renal cell cancer Z85.528 ; Postnasal drip R09.82 ; Allergic rhinitis, unspecified J30.9 and Tobacco use Z72.0 [place] [id number] [id number] [address] [place] [phone] Oct, Anxiety F41.9 and Depression F32.9 [place] [id number] [place] [phone] 07 Oct, 2015 [place] [address] [id number] [address] [place] [phone] Oct, [place] [address] [id number] [address] [place] [phone] 14 Sep, 2015 Splenic artery aneurysm I72. 8 [facility] [address] [id number] [address] [place] [phone] 10 Sep, 2015 Depression F32.9 ; Anxiety F 41.9 ; Chronic prescription benzodiazepine use Z79.899 and Splenic artery aneurysm I72.8 [facility] [address] [facility] [id number] [address] [place] [phone] 10 Sep, 2015 Depression F32.9 and Anxiety F41.9 [place] [id number] [facility] [id number] [address] [place] [phone] 02 Sep, 2015 [facility] [address] [id number] [address] [place] [phone] Aug, Dehydration E86.0 ; Diarrhea R19.7 ; Nausea R11.0 and Generalized abdominal pain R10.84 [facility] [address] [phone] Aug, [facility] [id number] [place] [phone] Jul, Depression F32.9 [facility] [address] [phone] Jul, [facility] [id number] [place] [phone] Jul, Anxiety F41.9 and Depression F32.9 [facility] [id number] [place] [phone] Jul, [facility] [address] [phone] Jun, Epigastric pain R10.13 [facility] [address] [id number] [address] [place] [phone] Jun, [facility] [address] [phone] Jun, [facility] [address] [phone] May, [facility] [address] [phone] May, [facility] [address] [id number] [address] [place] [phone] Apr, [facility] [address] [phone] Mar, Anxiety state, unspecified 3 00.00 ; Depression 311 ; Prediabetes 790.29 ; Generalized osteoarthrosis, involving multiple sites 715.09 and Hypertension 401.9 [facility] [address] [phone] Mar, [facility] [address] [id number] [address] [place] [phone] Feb, [facility] [address] [id number] [address] [place] [phone] Jan, [facility] [address] [id number] [address] [place] [phone] Jan, [facility] [address] [id number] [address] [place] [phone] Jan, Generalized osteoarthrosis, involving multiple sites 715.09 [facility] [address] [id number] [address] [place] [phone] Jan, Hx of renal cell cancer V10. 52 [facility] [address] [id number] [address] [place] [phone] Dec, Generalized osteoarthrosis, involving multiple sites 715.09 and Hx of renal cell cancer V10.52 [facility] [address] [id number] [address] [place] [phone] Dec, [facility] [address] [id number] [address] [place] [phone] Dec, [facility] [address] [id number] [address] [place] [phone] November, [facility] [address] [id number] [address] [place] [phone] Oct, [facility] [address] [id number] [address] [place] [phone] Oct, [facility] [address] [id number] [address] [place] [phone] Sep, [facility] [address] [id number] [address] [place] [phone] Sep, [facility] [address] [id number] [address] [place] [phone] Sep, [facility] [address] [facility] [id number] [address] [place] [phone] Sep, [facility] [address] [facility] [id number] [address] [place] [phone] Aug, [facility] [address] [facility] [id number] [address] [place] [phone] Aug, IMMUNIZATIONS No Known Immunizations SOCIAL HISTORY Never Assessed REASON FOR VISIT [facility] [place] [facility] VITAL SIGNS MEDICATIONS Medication Instructions Dosage Frequency Start Date End Date Duration S tatus Atenolol 50 mg 1 tablet by Oral route 1 time per day Sep, Active Paxil 30 mg 1 tablet by Oral route 1 time per day at bedtime Sep, Active Hydrocodone-Acetaminophen 5-325 mg take 1 tablet by Oral route 2 times per day as needed for pain PRN Sep, Acti ve cyclobenzaprine 10 mg 1 tablet 2 times per day PRN isabel n, muscle spasm Sep, Active RESULTS No Results PROCEDURES No Known [...]
--- OUTSIDE RECORDS SUMMARY | 2020-02-08 07:09 | XMS REPORT ---
Author Author Emilee MAY Organization [facility] Address [address] [place] [address] Care Team Providers Care Marketing Planning Manager Name Role Phone LALOJEZALBANIA Unavailable PROBLEMS Type Condition ICD9-CM Code KLM30-OH Code Onset Dates Condition S tatus SNOMED Code Problem Mixed hyperlipidemia E78.2 Active 603255859 Problem Fatty liver K76.0 Active 24197432 7 Problem Obstructive sleep apnea G47.33 Active 59914669 Problem Essential hypertension I10 Active 00814079 Problem History of renal cell cancer Z85.528 A ctive 259146311 Problem Prediabetes R73.09 Active 9710226 Problem Diastolic dysfunction I51.9 Active 0874900 Problem Liver mass R16.0 Active 501109406 Problem Paresthesia of both hands R20.2 Acti ve 945207917 Problem Major depressive disorder, recurrent episode, mild degree F33.0 Active 328114673 Problem Body mass index (bmi) 50-59.9 , adult Z68.43 Active 559112312 Problem Decreased GFR R94.4 Active 572427 04 Problem 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 Acti ve 672154888 Problem 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 Active 887226621 Problem Restrictive lung disease J98.4 Activ e 25854095 Problem Splenic artery aneurysm I72.8 Active 02317858 Problem History of tobacco use Z87.891 Active 2483308191524 Problem Generalized anxiety disorder F41.1 A ctive 45062549 Problem BMI 50.0-59.9, adult Z68.43 Active 541650228 Problem Excoriation, neurotic L98.1 Active 38145119 Problem Isolated proteinuria without specific morphologic lesion R80.0 Active 64979501 Problem Bilateral carpal tunnel syndrome G56.03 Active 60859173 Problem Pulmonary emphysema, unspecified emphysema type J4 3.9 Active 37812241 Problem Primary osteoarthritis involving multiple joints M 15.0 Active 819240187 Problem Tobacco use Z72.0 Active 67889545 0 Problem Allergic rhinitis, unspecified J30.9 Active 66597674 Problem Chronic prescription benzodiazepine use Z79.899 Active 723289822 Problem Chronic prescription opiate use Z79.899 Active 243073130 ALLERGIES No Information ENCOUNTERS Encounter Location Date Diagnosis [facility] [address] [address] Aug, [facility] [address] [address] Jul, [facility] [address] [address] Jun, Decreased GFR R94.4 [facility] [address] [address] Jun, Decreased GFR R94.4 [facility] [address] [address] Jun, Generalized anxiety disorder F41.1 [facility] [address] [address] Jun, Generalized anxiety disorder F41.1 [facility] [address] [address] Jun, [facility] [address] [address] May, BMI 50.0-59.9, adult Z68.43 ; Splenic artery aneurysm I72.8 ; Decreased GFR R94.4 and Encounter for weight management Z76.89 [facility] [address] [address] May, Decreased GFR R94.4 [facility] [address] [address] May, Mixed hyperlipidemia E78.2 ; Fatty liver K76.0 and Essential hypertension I10 [facility] [address] [address] May, Generalized anxiety disorder F41.1 ; Major depressive disorder, recurrent episode, mild degree F33.0 ; 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 and BMI 50.0-59.9, adult Z68.43 [facility] [address] [id number] [address] [place] [id number] May, [facility] [address] [id number] [address] [place] [id number] Apr, Generalized anxiety disorder F41.1 and Major depressive disorder, recurrent episode, mild degree F33.0 [facility] [address] [id number] [address] [place] [id number] 15 Apr, 2018 BMI 50.0-59.9, adult Z68.43 and Encounter for weight loss counseling Z71.3 [facility] [address] [id number] [address] [place] [id number] Apr, [facility] [address] [id number] [address] [place] [id number] 20 Mar, 2018 Generalized anxiety disorder F41.1 and Major depressive disorder, recurrent episode, mild degree F33.0 [facility] [address] [id number] [address] [place] [id number] 18 Mar, 2018 [facility] [address] [id number] [address] [place] [id number] 12 Mar, 2018 Generalized anxiety disorder F41.1 [facility] [address] [id number] [address] [place] [id number] Mar, [facility] [address] [id number] [address] [place] [id number] 14 Feb, 2018 Generalized anxiety disorder F41.1 ; Major depressive disorder, recurrent episode, mild degree F33.0 and 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 [facility] [address] [id number] [address] [place] [id number] Feb, Generalized anxiety disorder F41.1 and Major depressive disorder, recurrent episode, mild degree F33.0 [facility] [address] [id number] [address] [place] [id number] Feb, [facility] [address] [facility] [id number] [address] [place] [id number] Feb, Restrictive lung disease J98 .4 ; Pulmonary emphysema, unspecified emphysema type J43.9 and Body mass index (bmi) 50-59.9 , adult Z68.43 [facility] [address] [facility] [id number] [address] [place] [id number] Feb, Generalized anxiety disorder F41.1 ; Major depressive disorder, recurrent episode, mild degree F33.0 and 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 [facility] [address] [facility] [id number] [address] [place] [id number] Feb, [facility] [address] [facility] [id number] [address] [place] [id number] Jan, [facility] [address] [facility] [id number] [address] [place] [id number] Jan, Pulmonary emphysema, unspeci fied emphysema type J43.9 [facility] [address] [id number] [address] [place] [id number] Jan, Dental examination Z01.20 an d Dental caries K02.9 [facility] [address] [facility] [id number] [address] [place] [id number] Jan, Generalized anxiety disorder F41.1 and Major depressive disorder, recurrent episode, mild degree F33.0 [facility] [address] [id number] [address] [place] [id number] Jan, [facility] [address] [facility] [id number] [address] [place] [id number] Jan, Generalized anxiety disorder F41.1 [facility] [address] [id number] [address] [place] [id number] Jan, Oral abscess K12.2 and BMI 5 0.0-59.9, adult Z68.43 [facility] [address] [facility] [id number] [address] [place] [id number] 26 Dec, 2017 BMI 50.0-59.9, adult Z68.43 and Weight loss counseling, encounter for Z71.3 [facility] [address] [facility] [id number] [address] [place] [id number] Dec, [facility] [address] [id number] [address] [place] [id number] Dec, [facility] [address] [facility] [id number] [address] [place] [id number] November, [facility] [address] [place] [id number] [address] [place] [id number] November, [facility] [address] [place] [id number] [address] [place] [id number] November, Pulmonary emphysema, unspeci fied emphysema type J43.9 ; Restrictive lung disease J98.4 ; BMI 50.0-59.9, adult Z68.43 ; History of renal cell cancer Z85.528 ; Essential hypertension I10 ; Mixed hyperlipidemia E78.2 and Fatty liver K76.0 [facility] [address] [place] [id number] [address] [place] [id number] November, Generalized anxiety disorder F41.1 [facility] [address] [place] [id number] [address] [place] [id number] November, Generalized anxiety disorder F41.1 and Major depressive disorder, recurrent episode, mild degree F33.0 [place] [address] [facility] [id number] [address] [place] [id number] November, Generalized anxiety disorder F41.1 ; Major depressive disorder, recurrent episode, mild degree F33.0 and 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 [place] [address] [facility] [id number] [address] [place] [id number] November, [facility] [address] [place] [id number] [address] [place] [id number] Oct, Generalized anxiety disorder F41.1 [facility] [id number] [place] [id number] Oct, [facility] [address] [place] [id number] [address] [place] [id number] Oct, Influenza-like illness R69 [facility] [address] [place] [id number] [address] [place] [id number] Sep, Influenza-like illness R69 [facility] [address] [place] [id number] [address] [place] [id number] Sep, Generalized anxiety disorder F41.1 [facility] [address] [address] Sep, [facility] [address] [place] [id number] [address] [place] [phone] Aug, [facility] [address] [address] Aug, [facility] [address] [id number] [address] [place] [id number] Aug, Generalized anxiety disorder F41.1 [facility] [address] [place] [id number] Aug, Influenza-like illness R69 a nd BMI 50.0-59.9, adult Z68.43 [facility] [address] [place] [address] Jul, Fatty liver K76.0 ; Restrict jean-paul lung disease J98.4 ; Diastolic dysfunction I51.9 ; Body mass index (bmi) 50-59.9 , adult Z68.43 and Chronic prescription opiate use Z79.899 [facility] [address] [place] [id number] [address] [place] [id number] Jul, Generalized anxiety disorder F41.1 [facility] [address] [place] [id number] Jul, Generalized anxiety disorder F41.1 [facility] [address] [id number] [address] [place] [id number] Jul, 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 [facility] [address] [id number] [address] [place] [id number] Jun, Generalized anxiety disorder F41.1 [facility] [address] [id number] [address] [place] [id number] Jun, [facility] [address] [id number] [address] [place] [id number] Jun, Mixed hyperlipidemia E78.2 [facility] [address] [id number] [address] [place] [id number] Jun, Generalized anxiety disorder F41.1 [facility] [address] [id number] [address] [place] [id number] Jun, Generalized anxiety disorder F41.1 ; Major depressive disorder, recurrent episode, mild degree F33.0 and 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 [facility] [address] [id number] [address] [place] [id number] May, [facility] [address] [id number] [address] [place] [id number] May, Generalized anxiety disorder F41.1 [facility] [address] [id number] [address] [place] [id number] May, Generalized anxiety disorder F41.1 [facility] [address] [id number] [address] [place] [id number] May, 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 [facility] [address] [id number] [address] [place] [id number] Apr, Major depressive disorder, r ecurrent episode, mild degree F33.0 ; Generalized anxiety disorder F41.1 and Excoriation, neurotic L98.1 [facility] [address] [id number] [address] [place] [id number] 04 Apr, 2017 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 [facility] [address] [id number] [address] [place] [id number] 03 Apr, 2017 Essential hypertension I10 a nd Mixed hyperlipidemia E78.2 [facility] [address] [facility] [id number] [address] [place] [id number] Apr, Generalized anxiety disorder F41.1 ; Major depressive disorder, recurrent episode, mild degree F33.0 and 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 [facility] [address] [id number] [address] [place] [id number] 06 Mar, 2017 Generalized anxiety disorder F41.1 ; Major depressive disorder, recurrent episode, mild degree F33.0 and 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 [facility] [address] [facility] [id number] [address] [place] [phone] 05 Mar, [address] [facility] [address] [id number] [address] [place] [id number] 05 Mar, 2017 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 [facility] [address] [id number] [address] [place] [id number] Mar, [facility] [address] [facility] [id number] [address] [place] [phone] Mar, [facility] [address] [facility] [id number] [address] [place] [id number] Feb, Major depressive disorder, r ecurrent episode, mild degree F33.0 ; Generalized anxiety disorder F41.1 and Excoriation, neurotic L98.1 [facility] [address] [id number] [address] [place] [id number] Feb, Generalized anxiety disorder F41.1 [facility] [address] [facility] [id number] [address] [place] [id number] Feb, 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 [facility] [address] [facility] [id number] [address] [place] [id number] Jan, [place] [address] [facility] [id number] [address] [place] [id number] Jan, Essential hypertension I10 ; Splenic artery aneurysm I72.8 ; Liver mass R16.0 ; Restrictive lung disease J98.4 ; Primary osteoarthritis involving multiple joints M15.0 ; Mixed hyperlipidemia E78.2 ; Bilateral carpal tunnel syndrome G56.03 ; Body mass index (bmi) 50-59.9 , adult Z68.43 and History of tobacco use Z87.891 [place] [address] [facility] [id number] [address] [place] [id number] Jan, Major depressive disorder, r ecurrent episode, mild degree F33.0 and Generalized anxiety disorder F41.1 [place] [address] [place] [id number] [address] [place] [id number] Jan, [place] [address] [facility] [id number] [address] [place] [id number] Jan, Generalized anxiety disorder F41.1 and Major depressive disorder, recurrent episode, mild degree F33.0 [place] [address] [facility] [id number] [address] [place] [id number] Dec, 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 [facility] [address] [facility] [id number] [address] [place] [id number] Dec, Generalized anxiety disorder F41.1 [place] [address] [facility] [id number] [address] [place] [id number] Dec, [place] [address] [facility] [id number] [address] [place] [id number] Dec, Major depressive disorder, r ecurrent episode, mild degree F33.0 and Generalized anxiety disorder F41.1 [place] [address] [facility] [id number] [address] [place] [id number] Dec, Generalized anxiety disorder F41.1 and Major depressive disorder, recurrent episode, mild degree F33.0 [place] [address] [place] [id number] [address] [place] [id number] November, Mild major depression F32.0 and Primary osteoarthritis involving multiple joints M15.0 [place] [address] [place] [id number] [address] [place] [id number] November, Major depressive disorder, r ecurrent episode, mild degree F33.0 and Generalized anxiety disorder F41.1 [place] [address] [address] November, 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 ; Essential hypertension I10 ; Prediabetes R73.09 ; Mixed hyperlipidemia E78.2 ; Chronic prescription benzodiazepine use Z79.899 ; Chronic prescription opiate use Z79.899 ; Tobacco use Z72.0 ; Bilateral carpal tunnel syndrome G56.03 and Body mass index (bmi) 50-59.9 , adult Z68.[address] [address] November, 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 and Mild major depression F32.0 [place] [address] [address] Oct, [place] [address] [place] [id number] [address] [place] [id number] Oct, 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 ; Essential hypertension I10 ; Prediabetes R73.09 ; Chronic prescription benzodiazepine use Z79.899 ; Chronic prescription opiate use Z79.899 ; Tobacco use Z72.0 ; Mixed hyperlipidemia E78.2 ; Bilateral carpal tunnel syndrome G56.03 ; Body mass index (bmi) 50-59.9 , adult Z68.43 and Encounter for immunization Z23 [place] [address] [address] Oct, Major depressive disorder, r ecurrent episode, mild degree F33.0 and Generalized anxiety disorder F41.1 [place] [address] [place] [address] Oct, [facility] [address] [place] [id number] [place] [phone] Oct, [facility] [address] [place] [id number] [place] [address] Sep, Mild major depression F32.0 [facility] [address] [place] [id number] [place] [address] Sep, [facility] [address] [place] [id number] [place] [address] Sep, Mild major depression F32.0 and Generalized anxiety disorder F41.1 [facility] [address] [place] [id number] [place] [address] Sep, Paresthesia of both hands R2 0.2 and Cervical radiculopathy M54.12 [facility] [address] [address] Sep, [facility] [address] [place] [id number] [place] [address] Sep, [facility] [address] [address] Aug, Paresthesia of both hands R2 0.2 and Neck pain M54.2 [facility] [address] [address] Aug, [facility] [address] [place] [id number] [place] [address] Jul, Neck pain M54.2 and Paresthe eddie of both hands R20.2 [facility] [address] [address] Jul, Proteinuria, unspecified typ e R80.9 [facility] [address] [place] [id number] [place] [address] Jul, Proteinuria, unspecified typ e R80.9 [facility] [address] [id number] [address] [place] [id number] Jul, [facility] [address] [facility] [id number] [address] [place] [id number] Jul, Other specified transient ce rebral ischemias G45.8 [facility] [address] [id number] [address] [place] [id number] Jun, Diastolic dysfunction I51.9 [facility] [address] [id number] [address] [place] [id number] Jun, Diastolic dysfunction I51.9 [facility] [address] [facility] [id number] [address] [place] [id number] Jun, Major depressive disorder, s david episode, unspecified F32.9 and Anxiety disorder, unspecified F41.9 [facility] [address] [facility] [id number] [address] [place] [id number] Jun, [facility] [address] [id number] [address] [place] [id number] Jun, [facility] [address] [facility] [id number] [address] [place] [id number] May, Moderate major depression F3 2.1 and Generalized anxiety disorder F41.1 [facility] [address] [facility] [id number] [address] [place] [id number] 16 May, 2016 Major depressive disorder, s david episode, unspecified F32.9 and Anxiety disorder, unspecified F41.9 [facility] [address] [id number] [address] [place] [id number] 15 May, 2016 [facility] [address] [facility] [id number] [address] [place] [id number] 14 May, 2016 Liver enzyme elevation R74.8 [facility] [address] [facility] [id number] [address] [place] [id number] 14 May, 2016 Liver enzyme elevation R74.8 [facility] [address] [place] [id number] [address] [place] [id number] May, Shortness of breath on exert ion R06.02 ; Essential hypertension I10 ; Mixed hyperlipidemia E78.2 and Tobacco use Z72.0 [facility] [address] [facility] [id number] [address] [place] [id number] May, [facility] [address] [facility] [id number] [address] [place] [id number] May, [facility] [address] [place] [id number] [place] [phone] Apr, Anxiety F41.[address] [facility] [address] [id number] [place] [phone] Apr, [facility] [address] [place] [id number] [address] [place] [id number] Apr, [facility] [address] [id number] [place] [id number] Mar, Depression F32.[address] [facility] [address] [id number] [place] [address] 08 Mar, 2016 Anxiety F41.[address] [facility] [address] [place] [id number] [address] [place] [id number] Mar, Well woman exam (no gynecolo gical exam) Z00.00 [facility] [address] [place] [id number] [address] [place] [id number] Mar, [facility] [address] [facility] [id number] [address] [place] [phone] Mar, [facility] [address] [id number] [address] [place] [id number] Feb, Dental caries K02.9 [facility] [address] [facility] [id number] [address] [place] [id number] Feb, [facility] [id number] [place] [address], [place] [phone] Feb, Anxiety F41.9 and Depression F32.9 [facility] [address] [id number] [address] [place] [id number] Feb, Dental examination Z01.20 [facility] [address] [id number] [address] [place] [phone] Feb, [facility] [address] [facility] [id number] [address] [place] [id number] Feb, [facility] [address] [id number] [address] [place] [id number] Feb, Anxiety F41.[address] [facility] [address] [facility] [id number] [address] [place] [id number] Jan, Severe episode of recurrent major depressive disorder, without psychotic features F33.2 and Anxiety disorder, unspecified F41.9 [facility] [address] [facility] [id number] [address] [place] [phone] Jan, [facility] [address] [id number] [address] [place] [id number] Dec, [facility] [address] [facility] [id number] [address] [place] [phone] Dec, Anxiety F41.[address] [facility] [address] [facility] [id number] [address] [place] [id number] Dec, Other specified transient ce rebral ischemias G45.8 and Nocturnal hypoxia G47.34 [facility] [address] [id number] [address] [place] [id number] Dec, [facility] [address] [facility] [id number] [address] [place] [id number] Dec, Other specified transient ce rebral ischemias G45.8 [facility] [address] [facility] [id number] [address] [place] [id number] 16 Dec, 2015 Severe episode of recurrent major depressive disorder, without psychotic features F33.2 and Anxiety disorder, unspecified F41.9 [place] [address] [place] [phone] 13 Dec, 2015 [place] [address] [place] [id number] [address] [place] [id number] 13 Dec, 2015 Anxiety F41.9 and Depression F32.9 [place] [address] [id number] 07 Dec, 2015 Anxiety F41.9 and Depression F32.9 [place] [address] [place] [phone] Dec, [place] [address] [id number] November, Anxiety F41.9 and Depression F32.9 [place] [address] [id number] November, Severe episode of recurrent major depressive disorder, without psychotic features F33.2 [place] [address] [address] November, Mixed hyperlipidemia E78.2 [place] [address] [place] [id number] [place] [phone] November, Anxiety F41.9 and Depression F32.9 [place] [address] [address] 05 Nov, 2015 Prediabetes R73.09 ; Essenti al hypertension I10 ; Anxiety F41.9 ; Depression F32.9 ; Gastroesophageal reflux disease, esophagitis presence not specified K21.9 ; Primary osteoarthritis involving multiple joints M15.0 ; History of renal cell cancer Z85.528 ; Postnasal drip R09.82 ; Allergic rhinitis, unspecified J30.9 and Tobacco use Z72.0 [place] [address] [place] [id number] [address] [place] [id number] 11 Oct, 2015 Anxiety F41[address] [facility] [address] [place] [id number] [address] [place] [id number] 07 Oct, 2015 [facility] [address] [id number] Oct, [facility] [address] [id number] 14 Sep, 2015 Splenic artery aneurysm I72. 8 [facility] [address] [address] 10 Sep, 2015 Depression F32.9 ; Anxiety F 41.9 ; Chronic prescription benzodiazepine use Z79.899 and Splenic artery aneurysm I72.8 [facility] [address] [address] 10 Sep, 2015 Depression F32.[address] [facility] [address] [address] Sep, [facility] [address] [id number] 18 Aug, 2015 Dehydration E86.0 ; Diarrhea R19.7 ; Nausea R11.0 and Generalized abdominal pain R10.84 [facility] [address] [place] [id number] [address] [place] [id number] Aug, [facility] [address] [id number] Jul, Depression F32.9 [facility] [address] [place] [id number] [address] [place] [id number] Jul, [facility] [address] [id number] Jul, Anxiety F41.[address] [facility] [address] [place] [id number] [address] [place] [id number] Jul, [facility] [address] [address] Jun, Epigastric pain R10.13 [facility] [address] [id number] [address] [place] [id number] Jun, [facility] [address] [facility] [id number] [address] [place] [phone] Jun, [facility] [address] [facility] [id number] [address] [place] [id number] May, [facility] [address] [id number] [address] [place] [id number] May, [facility] [address] [id number] [address] [place] [id number] Apr, [facility] [address] [facility] [id number] [address] [place] [id number] Mar, Anxiety state, unspecified 3 00.00 ; Depression 311 ; Prediabetes 790.29 ; Generalized osteoarthrosis, involving multiple sites 715.[address] [facility] [address] [facility] [id number] [address] [place] [id number] Mar, [facility] [address] [facility] [id number] [address] [place] [phone] Feb, [facility] [address] [facility] [id number] [address] [place] [id number] Jan, [facility] [address] [facility] [id number] [address] [place] [phone] Jan, [facility] [address] [facility] [id number] [address] [place] [id number] Jan, Generalized osteoarthrosis, involving multiple sites 715.09 [facility] [address] [facility] [id number] [address] [place] [id number] 07 Jan, 2015 Hx of renal cell cancer V10. 52 [facility] [address] [facility] [id number] [address] [place] [id number] Dec, Generalized osteoarthrosis, involving multiple sites 715.09 and Hx of renal cell cancer V10.52 [facility] [address] [id number] [address] [place] [id number] Dec, [facility] [address] [id number] [address] [place] [phone] Dec, [facility] [address] [id number] [address] [place] [id number] November, [facility] [address] [id number] [address] [place] [phone] Oct, [facility] [address] [id number] [address] [place] [phone] Oct, [facility] [address] [id number] [address] [place] [id number] Sep, [facility] [address] [id number] [address] [place] [id number] Sep, [facility] [address] [id number] [address] [place] [id number] Sep, [facility] [address] [id number] [address] [place] [id number] Sep, [facility] [address] [id number] [address] [place] [id number] Aug, [facility] [address] [id number] [address] [place] [id number] Aug, IMMUNIZATIONS No Known Immunizations SOCIAL HISTORY Never Assessed REASON FOR VISIT Deferred Lab PLAN OF CARE VITAL SIGNS MEDICATIONS Unknown [...]
--- OUTSIDE RECORDS SUMMARY | 2020-02-08 07:10 | XMS REPORT ---
Author Author Emilee CASSIDY Organization [facility] Address [address] [place] [address] Care Team Providers Care Facility Security Officer Name Role Phone LOVELY CASSIDY Unavailable PROBLEMS Type Condition ICD9-CM Code [id number] Code Onset Dates Condition S tatus SNOMED Code Problem Mixed hyperlipidemia E78.2 Active 459670432 Problem Fatty liver K76.0 Active 64109065 7 Problem Obstructive sleep apnea G47.33 Active 40270224 Problem Essential hypertension I10 Active 11584211 Problem History of renal cell cancer Z85.528 A ctive 338290229 Problem Prediabetes R73.09 Active 9071408 Problem Diastolic dysfunction I51.9 Active 0362860 Problem Liver mass R16.0 Active 567609110 Problem Paresthesia of both hands R20.2 Acti ve 551437854 Problem Major depressive disorder, recurrent episode, mild degree F33.0 Active 686981771 Problem Body mass index (bmi) 50-59.9 , adult Z68.43 Active 780066601 Problem Decreased GFR R94.4 Active 174595 04 Problem 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 Acti ve 535030741 Problem 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 Active 782045820 Problem Restrictive lung disease J98.4 Activ e 21825182 Problem Splenic artery aneurysm I72.8 Active 52671124 Problem History of tobacco use Z87.891 Active 7872149940684 Problem Generalized anxiety disorder F41.1 A ctive 45531920 Problem BMI 50.0-59.9, adult Z68.43 Active 642722939 Problem Excoriation, neurotic L98.1 Active 40761569 Problem Isolated proteinuria without specific morphologic lesion R80.0 Active 04957449 Problem Bilateral carpal tunnel syndrome G56.03 Active 55259868 Problem Pulmonary emphysema, unspecified emphysema type J4 3.9 Active 82833412 Problem Primary osteoarthritis involving multiple joints M 15.0 Active 922122148 Problem Tobacco use Z72.0 Active 33991257 0 Problem Allergic rhinitis, unspecified J30.9 Active 57252506 Problem Chronic prescription benzodiazepine use Z79.899 Active 233809177 Problem Chronic prescription opiate use Z79.899 Active 791928298 ALLERGIES No Information ENCOUNTERS Encounter Location Date Diagnosis [facility] [address] [facility] [id number] [address] [place] [id number] 07 Aug, 2018 [facility] [address] [facility] [id number] [address] [place] [id number] Jul, [facility] [address] [facility] [id number] [address] [place] [id number] Jun, Decreased GFR R94.4 [place] [address] [place] [id number] [place] [phone] Jun, Generalized anxiety disorder F41.1 [place] [address] [place] [id number] [address] [place] [id number] Jun, Generalized anxiety disorder F41.1 [place] [address] [place] [id number] [address] [place] [id number] Jun, [place] [address] [place] [id number] [place] [phone] May, BMI 50.0-59.9, adult Z68.43 ; Splenic artery aneurysm I72.8 ; Decreased GFR R94.4 and Encounter for weight management Z76.89 [place] [address] [facility] [id number] [address] [place] [id number] May, Decreased GFR R94.4 [place] [address] [facility] [id number] [address] [place] [id number] 16 May, 2018 Mixed hyperlipidemia E78.2 ; Fatty liver K76.0 and Essential hypertension I10 [facility] [address] [facility] [id number] [address] [place] [id number] May, Generalized anxiety disorder F41.1 ; Major depressive disorder, recurrent episode, mild degree F33.0 ; 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 and BMI 50.0-59.9, adult Z68.43 [facility] [address] [id number] [address] [place] [id number] May, [facility] [address] [id number] [address] [place] [id number] 31 Apr, 2018 Generalized anxiety disorder F41.1 and Major depressive disorder, recurrent episode, mild degree F33.0 [facility] [address] [id number] [address] [place] [id number] 15 Apr, 2018 BMI 50.0-59.9, adult Z68.43 and Encounter for weight loss counseling Z71.3 [place] [address] [id number] [address] [place] [id number] 03 Apr, 2018 [place] [address] [id number] [address] [place] [id number] 20 Mar, 2018 Generalized anxiety disorder F41.1 and Major depressive disorder, recurrent episode, mild degree F33.0 [facility] [address] [id number] [address] [place] [id number] 18 Mar, 2018 [facility] [address] [id number] [address] [place] [id number] 12 Mar, 2018 Generalized anxiety disorder F41.1 [place] [address] [id number] [address] [place] [id number] Mar, [facility] [address] [id number] [address] [place] [id number] 14 Feb, 2018 Generalized anxiety disorder F41.1 ; Major depressive disorder, recurrent episode, mild degree F33.0 and 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 [facility] [address] [id number] [address] [place] [id number] 13 Feb, 2018 Generalized anxiety disorder F41.1 and Major depressive disorder, recurrent episode, mild degree F33.0 [facility] [address] [id number] [address] [place] [id number] Feb, [facility] [address] [facility] [id number] [address] [place] [id number] Feb, Restrictive lung disease J98 .4 ; Pulmonary emphysema, unspecified emphysema type J43.9 and Body mass index (bmi) 50-59.9 , adult Z68.43 [facility] [address] [id number] [address] [place] [id number] Feb, Generalized anxiety disorder F41.1 ; Major depressive disorder, recurrent episode, mild degree F33.0 and 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 [facility] [address] [id number] [address] [place] [id number] Feb, [facility] [address] [id number] [address] [place] [phone] Jan, [facility] [address] [id number] [address] [place] [id number] Jan, Pulmonary emphysema, unspeci fied emphysema type J43.9 [facility] [address] [id number] [address] [place] [id number] Jan, Dental examination Z01.20 an d Dental caries K02.9 [facility] [address] [facility] [id number] [address] [place] [id number] Jan, Generalized anxiety disorder F41.1 and Major depressive disorder, recurrent episode, mild degree F33.0 [facility] [address] [id number] [address] [place] [id number] Jan, [facility] [address] [facility] [id number] [address] [place] [id number] Jan, Generalized anxiety disorder F41.1 [facility] [address] [id number] [address] [place] [id number] Jan, Oral abscess K12.2 and BMI 5 0.0-59.9, adult Z68.43 [facility] [address] [id number] [address] [place] [id number] Dec, BMI 50.0-59.9, adult Z68.43 and Weight loss counseling, encounter for Z71.3 [facility] [address] [facility] [id number] [address] [place] [phone] Dec, [facility] [address] [facility] [id number] [address] [place] [id number] Dec, [facility] [address] [place] [id number] [address] [place] [id number] November, [facility] [address] [place] [id number] [address] [place] [id number] November, [facility] [address] [place] [id number] [address] [place] [id number] November, Pulmonary emphysema, unspeci fied emphysema type J43.9 ; Restrictive lung disease J98.4 ; BMI 50.0-59.9, adult Z68.43 ; History of renal cell cancer Z85.528 ; Essential hypertension I10 ; Mixed hyperlipidemia E78.2 and Fatty liver K76.0 [place] [address] [place] [id number] [address] [place] [id number] November, Generalized anxiety disorder F41.1 [place] [address] [place] [id number] [address] [place] [id number] November, Generalized anxiety disorder F41.1 and Major depressive disorder, recurrent episode, mild degree F33.0 [place] [address] [place] [id number] [address] [place] [id number] November, Generalized anxiety disorder F41.1 ; Major depressive disorder, recurrent episode, mild degree F33.0 and 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 [place] [address] [facility] [id number] [address] [place] [phone] November, [place] [address] [place] [id number] [address] [place] [id number] Oct, Generalized anxiety disorder F41.1 [place] [address] [place] [id number] [address] [place] [id number] Oct, [facility] [address] [facility] [id number] [address] [place] [id number] Oct, Influenza-like illness R69 [facility] [address] [place] [id number] Sep, Influenza-like illness R69 [facility] [address] [place] [id number] [address] [place] [id number] Sep, Generalized anxiety disorder F41.1 [facility] [address] [facility] [id number] [address] [place] [id number] Sep, [facility] [address] [id number] Aug, [facility] [address] [id number] Aug, [facility] [address] [id number] Aug, Generalized anxiety disorder F41.1 [facility] [address] [place] [id number] [address] [place] [id number] Aug, Influenza-like illness R69 a nd BMI 50.0-59.9, adult Z68.43 [facility] [address] [place] [id number] [address] [place] [id number] Jul, Fatty liver K76.0 ; Restrict jean-paul lung disease J98.4 ; Diastolic dysfunction I51.9 ; Body mass index (bmi) 50-59.9 , adult Z68.43 and Chronic prescription opiate use Z79.899 [facility] [address] [place] [id number] [address] [place] [id number] Jul, Generalized anxiety disorder F41.1 [facility] [address] [place] [id number] [address] [place] [id number] Jul, Generalized anxiety disorder F41.1 [facility] [address] [place] [id number] [address] [place] [id number] Jul, 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 [facility] [address] [id number] [address] [place] [id number] Jun, Generalized anxiety disorder F41.1 [facility] [address] [id number] [address] [place] [id number] Jun, [facility] [address] [id number] [address] [place] [id number] Jun, Mixed hyperlipidemia E78.2 [facility] [address] [id number] [address] [place] [id number] Jun, Generalized anxiety disorder F41.1 [facility] [address] [id number] [address] [place] [id number] Jun, Generalized anxiety disorder F41.1 ; Major depressive disorder, recurrent episode, mild degree F33.0 and 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 [facility] [address] [id number] [address] [place] [id number] May, [facility] [address] [id number] [address] [place] [id number] May, Generalized anxiety disorder F41.1 [facility] [address] [id number] [address] [place] [phone] May, Generalized anxiety disorder F41.1 [facility] [address] [id number] [address] [place] [id number] May, 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 [facility] [address] [id number] [address] [place] [id number] Apr, Major depressive disorder, r ecurrent episode, mild degree F33.0 ; Generalized anxiety disorder F41.1 and Excoriation, neurotic L98.1 [facility] [address] [id number] [address] [place] [id number] Apr, 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 [facility] [address] [id number] [address] [place] [id number] Apr, Essential hypertension I10 a nd Mixed hyperlipidemia E78.2 [facility] [address] [id number] [address] [place] [id number] Apr, Generalized anxiety disorder F41.1 ; Major depressive disorder, recurrent episode, mild degree F33.0 and 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 [facility] [address] [id number] [address] [place] [id number] Mar, Generalized anxiety disorder F41.1 ; Major depressive disorder, recurrent episode, mild degree F33.0 and 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 [facility] [address] [id number] [address] [place] [id number] Mar, Skin lesion L98.9 [facility] [address] [id number] [address] [place] [id number] Mar, 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 [facility] [address] [id number] [address] [place] [id number] Mar, [facility] [address] [id number] [address] [place] [id number] Mar, [facility] [address] [id number] [address] [place] [id number] Feb, Major depressive disorder, r ecurrent episode, mild degree F33.0 ; Generalized anxiety disorder F41.1 and Excoriation, neurotic L98.1 [facility] [address] [id number] [address] [place] [id number] Feb, Generalized anxiety disorder F41.1 [facility] [address] [id number] [address] [place] [id number] Feb, 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 [facility] [address] [id number] [address] [place] [id number] Jan, [facility] [address] [id number] [address] [place] [id number] Jan, Essential hypertension I10 ; Splenic artery aneurysm I72.8 ; Liver mass R16.0 ; Restrictive lung disease J98.4 ; Primary osteoarthritis involving multiple joints M15.0 ; Mixed hyperlipidemia E78.2 ; Bilateral carpal tunnel syndrome G56.03 ; Body mass index (bmi) 50-59.9 , adult Z68.43 and History of tobacco use Z87.891 [facility] [address] [facility] [id number] [address] [place] [id number] Jan, Major depressive disorder, r ecurrent episode, mild degree F33.0 and Generalized anxiety disorder F41.1 [facility] [address] [facility] [id number] [address] [place] [id number] Jan, [facility] [address] [facility] [id number] [address] [place] [id number] Jan, Generalized anxiety disorder F41.1 and Major depressive disorder, recurrent episode, mild degree F33.0 [facility] [address] [facility] [id number] [address] [place] [id number] Dec, 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 [facility] [address] [facility] [id number] [address] [place] [id number] Dec, Generalized anxiety disorder F41.1 [facility] [address] [facility] [id number] [address] [place] [id number] Dec, [facility] [address] [facility] [id number] [address] [place] [id number] Dec, Major depressive disorder, r ecurrent episode, mild degree F33.0 and Generalized anxiety disorder F41.1 [facility] [address] [facility] [id number] [address] [place] [id number] Dec, Generalized anxiety disorder F41.1 and Major depressive disorder, recurrent episode, mild degree F33.0 [facility] [address] [facility] [id number] [address] [place] [id number] November, Mild major depression F32.0 and Primary osteoarthritis involving multiple joints M15.0 [place] [address] [facility] [id number] [address] [place] [phone] November, Major depressive disorder, r ecurrent episode, mild degree F33.0 and Generalized anxiety disorder F41.1 [place] [address] [facility] [id number] [address] [place] [id number] November, 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 ; Essential hypertension I10 ; Prediabetes R73.09 ; Mixed hyperlipidemia E78.2 ; Chronic prescription benzodiazepine use Z79.899 ; Chronic prescription opiate use Z79.899 ; Tobacco use Z72.0 ; Bilateral carpal tunnel syndrome G56.03 and Body mass index (bmi) 50-59.9 , adult Z68.43 [place] [address] [place] [id number] [address] [place] [id number] November, 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 and Mild major depression F32.0 [place] [address] [facility] [id number] [address] [place] [id number] Oct, [place] [address] [facility] [id number] [address] [place] [id number] Oct, 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 ; Essential hypertension I10 ; Prediabetes R73.09 ; Chronic prescription benzodiazepine use Z79.899 ; Chronic prescription opiate use Z79.899 ; Tobacco use Z72.0 ; Mixed hyperlipidemia E78.2 ; Bilateral carpal tunnel syndrome G56.03 ; Body mass index (bmi) 50-59.9 , adult Z68.43 and Encounter for immunization Z23 [place] [address] [facility] [id number] [address] [place] [id number] Oct, Major depressive disorder, r ecurrent episode, mild degree F33.0 and Generalized anxiety disorder F41.1 [place] [address] [facility] [id number] [address] [place] [id number] Oct, [place] [address] [place] [id number] [address] [place] [id number] Oct, [facility] [address] [facility] [id number] [address] [place] [id number] Sep, Mild major depression F32.0 [facility] [address] [facility] [id number] [address] [place] [id number] Sep, [facility] [address] [facility] [id number] [address] [place] [phone] Sep, Mild major depression F32.0 and Generalized anxiety disorder F41.1 [facility] [address] [facility] [id number] [address] [place] [id number] Sep, Paresthesia of both hands R2 0.2 and Cervical radiculopathy M54.12 [facility] [address] [facility] [id number] [address] [place] [id number] Sep, [facility] [address] [facility] [id number] [address] [place] [id number] Sep, [facility] [address] [facility] [id number] [address] [place] [id number] Aug, Paresthesia of both hands R2 0.2 and Neck pain M54.2 [place] [address] [facility] [id number] [address] [place] [id number] Aug, [facility] [address] [facility] [id number] [address] [place] [id number] Jul, Neck pain M54.2 and Paresthe eddie of both hands R20.2 [facility] [address] [facility] [id number] [address] [place] [phone] Jul, Proteinuria, unspecified typ e R80.9 [place] [address] [place] [id number] [address] [place] [id number] Jul, Proteinuria, unspecified typ e R80.9 [facility] [address] [facility] [id number] [address] [place] [id number] Jul, [facility] [address] [id number] Jul, Other specified transient ce rebral ischemias G45.8 [place] [address] [address] Jun, Diastolic dysfunction I51.9 [place] [address] [id number] 08 Jun, 2016 Diastolic dysfunction I51.9 [place] [address] [id number] Jun, Major depressive disorder, s david episode, unspecified F32.9 and Anxiety disorder, unspecified F41.9 [place] [address] [id number] Jun, [place] [address] [address] Jun, [place] [address] [id number] May, Moderate major depression F3 2.1 and Generalized anxiety disorder F41.1 [place] [address] [id number] 16 May, 2016 Major depressive disorder, s david episode, unspecified F32.9 and Anxiety disorder, unspecified F41.9 [place] [address] [id number] 15 May, 2016 [place] [address] [address] 14 May, 2016 Liver enzyme elevation R74.8 [place] [address] [address] 14 May, 2016 Liver enzyme elevation R74.8 [place] [address] [id number] 10 May, 2016 Shortness of breath on exert ion R06.02 ; Essential hypertension I10 ; Mixed hyperlipidemia E78.2 and Tobacco use Z72.0 [facility] [address] [id number] [address] [place] [id number] May, [facility] [address] [id number] [address] [place] [id number] May, [facility] [address] [id number] [address] [place] [id number] Apr, Anxiety F41.9 and Depression F32.9 [facility] [address] [id number] [address] [place] [id number] Apr, [facility] [address] [id number] [address] [place] [id number] Apr, [facility] [address] [id number] [address] [place] [id number] Mar, Depression F32.9 and Anxiety F41.9 [facility] [address] [id number] [address] [place] [id number] Mar, Anxiety F41.9 and Depression F32.9 [facility] [address] [id number] [address] [place] [id number] Mar, Well woman exam (no gynecolo gical exam) Z00.00 [facility] [address] [id number] [address] [place] [id number] Mar, [facility] [address] [id number] [address] [place] [id number] Mar, [facility] [address] [id number] [address] [place] [id number] Feb, Dental caries K02.9 [facility] [address] [id number] [address] [place] [id number] Feb, [facility] [address] [id number] [address] [place] [id number] Feb, Anxiety F41.9 and Depression F32.9 [facility] [address] [id number] [address] [place] [id number] Feb, Dental examination Z01.20 [facility] [address] [id number] [address] [place] [id number] Feb, [facility] [address] [id number] [address] [place] [phone] Feb, [facility] [address] [id number] [address] [place] [phone] Feb, Anxiety F41.9 and Depression F32.9 [facility] [address] [id number] [address] [place] [phone] Jan, Severe episode of recurrent major depressive disorder, without psychotic features F33.2 and Anxiety disorder, unspecified F41.9 [place] [id number] [facility] [id number] [address] [place] [phone] Jan, [facility] [address] [facility] [id number] [address] [place] [phone] Dec, [facility] [address] [id number] [address] [place] [phone] Dec, Anxiety F41.9 and Depression F32.9 [facility] [address] [facility] [id number] [address] [place] [phone] Dec, Other specified transient ce rebral ischemias G45.8 and Nocturnal hypoxia G47.34 [facility] [address] [facility] [id number] [address] [place] [phone] Dec, [facility] [address] [id number] [address] [place] [phone] Dec, Other specified transient ce rebral ischemias G45.8 [place] [address] [address] [facility] [id number] [address] [place] [id number] 16 Dec, 2015 Severe episode of recurrent major depressive disorder, without psychotic features F33.2 and Anxiety disorder, unspecified F41.9 [facility] [address] [facility] [id number] [address] [place] [phone] Dec, [place] [address] [address] [place] [id number] [address] [place] [phone] 13 Dec, 2015 Anxiety F41.9 and Depression F32.9 [place] [address] [address] [place] [id number] [address] [place] [id number] 07 Dec, 2015 Anxiety F41.9 and Depression F32.9 [place] [address] [id number] Dec, [place] [address] [id number] November, Anxiety F41.9 and Depression F32.9 [place] [address] [phone] November, Severe episode of recurrent major depressive disorder, without psychotic features F33.2 [place] [address] [id number] November, Mixed hyperlipidemia E78.2 [place] [address] [phone] November, Anxiety F41.9 and Depression F32.9 [place] [address] [address] November, Prediabetes R73.09 ; Essenti al hypertension I10 ; Anxiety F41.9 ; Depression F32.9 ; Gastroesophageal reflux disease, esophagitis presence not specified K21.9 ; Primary osteoarthritis involving multiple joints M15.0 ; History of renal cell cancer Z85.528 ; Postnasal drip R09.82 ; Allergic rhinitis, unspecified J30.9 and Tobacco use Z72.[address] [phone] Oct, Anxiety F41.9 and Depression F32.9 [place] [address] [address] [place] [id number] [address] [place] [phone] Oct, [place] [address] [address] [place] [id number] [address] [place] [phone] Oct, [facility] [address] [id number] 14 Sep, 2015 Splenic artery aneurysm I72. 8 [facility] [address] [place] [id number] [place] [phone] 10 Sep, 2015 Depression F32.9 ; Anxiety F 41.9 ; Chronic prescription benzodiazepine use Z79.899 and Splenic artery aneurysm I72.8 [facility] [address] [place] [id number] [place] [phone] 10 Sep, 2015 Depression F32.9 and Anxiety F41.9 [place] [address] [phone] Sep, [facility] [address] [id number] 18 Aug, 2015 Dehydration E86.0 ; Diarrhea R19.7 ; Nausea R11.0 and Generalized abdominal pain R10.84 [facility] [address] [id number] Aug, [facility] [address] [id number] Jul, Depression F32.9 [facility] [address] [id number] Jul, [facility] [address] [id number] Jul, Anxiety F41.9 and Depression F32.9 [facility] [address] [id number] Jul, [facility] [address] [id number] Jun, Epigastric pain R10.13 [facility] [address] [id number] Jun, [facility] [address] [facility] [id number] [address] [place] [phone] Jun, [facility] [address] [facility] [id number] [address] [place] [phone] May, [facility] [address] [facility] [id number] [address] [place] [phone] May, [facility] [address] [facility] [id number] [address] [place] [phone] Apr, [facility] [address] [facility] [id number] [address] [place] [id number] Mar, Anxiety state, unspecified 3 00.00 ; Depression 311 ; Prediabetes 790.29 ; Generalized osteoarthrosis, involving multiple sites 715.09 and Hypertension 401.9 [facility] [address] [facility] [id number] [address] [place] [phone] Mar, [facility] [address] [facility] [id number] [address] [place] [phone] Feb, [facility] [address] [facility] [id number] [address] [place] [phone] Jan, [facility] [address] [facility] [id number] [address] [place] [phone] Jan, [facility] [address] [facility] [id number] [address] [place] [phone] Jan, Generalized osteoarthrosis, involving multiple sites 715.09 [facility] [address] [facility] [id number] [address] [place] [phone] 07 Jan, 2015 Hx of renal cell cancer V10. 52 [facility] [address] [facility] [id number] [address] [place] [phone] Dec, Generalized osteoarthrosis, involving multiple sites 715.09 and Hx of renal cell cancer V10.52 [facility] [address] [facility] [id number] [address] [place] [phone] Dec, [facility] [address] [id number] [address] [place] [phone] Dec, [facility] [address] [id number] [address] [place] [phone] November, [facility] [address] [id number] [address] [place] [phone] Oct, [facility] [address] [id number] [address] [place] [phone] Oct, [facility] [address] [id number] [address] [place] [phone] Sep, [facility] [address] [id number] [address] [place] [phone] Sep, [facility] [address] [id number] [address] [place] [phone] Sep, [facility] [address] [id number] [address] [place] [phone] Sep, [facility] [address] [id number] [address] [place] [phone] Aug, [facility] [address] [id number] [address] [place] [phone] Aug, IMMUNIZATIONS No Known Immunizations SOCIAL HISTORY Never Assessed REASON FOR VISIT Follow-up Depression/Anxiety PLAN OF CARE Activity Details Follow Up 4 Weeks Reason: Follow-up VITAL SIGNS MEDICATIONS Unknown Medications RESULTS No Results PROCEDURES Procedure Date Ordered Result Body Site Psychotherapy, patient &/family, 30 minutes, established patient Jul 10, 2018 INSTRUCTIONS MEDICATIONS ADMINISTERED No Known Medications MEDICAL [...]
--- OUTSIDE RECORDS SUMMARY | 2020-02-08 07:10 | XMS REPORT ---
Author Author Emilee MAY Organization [facility] Address [address] [place] [address] Care Team Providers Care Nurse Monitoring Name Role Phone LALOJEZALBANIA Unavailable PROBLEMS Type Condition ICD9-CM Code [id number] Code Onset Dates Condition S tatus SNOMED Code Problem Mixed hyperlipidemia E78.2 Active 868477127 Problem Fatty liver K76.0 Active 04277167 7 Problem Obstructive sleep apnea G47.33 Active 82834713 Problem Essential hypertension I10 Active 45646659 Problem History of renal cell cancer Z85.528 A ctive 890566061 Problem Prediabetes R73.09 Active 5755575 Problem Diastolic dysfunction I51.9 Active 6722979 Problem Liver mass R16.0 Active 857950347 Problem Paresthesia of both hands R20.2 Acti ve 438029047 Problem Major depressive disorder, recurrent episode, mild degree F33.0 Active 511659376 Problem Body mass index (bmi) 50-59.9 , adult Z68.43 Active 682909148 Problem Decreased GFR R94.4 Active 297455 04 Problem 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 Acti ve 265045027 Problem 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 Active 168644211 Problem Restrictive lung disease J98.4 Activ e 30099523 Problem Splenic artery aneurysm I72.8 Active 33305872 Problem History of tobacco use Z87.891 Active 4652199968871 Problem Generalized anxiety disorder F41.1 A ctive 11744165 Problem BMI 50.0-59.9, adult Z68.43 Active 163722208 Problem Excoriation, neurotic L98.1 Active 08938818 Problem Isolated proteinuria without specific morphologic lesion R80.0 Active 32935265 Problem Bilateral carpal tunnel syndrome G56.03 Active 49491971 Problem Pulmonary emphysema, unspecified emphysema type J4 3.9 Active 93534249 Problem Primary osteoarthritis involving multiple joints M 15.0 Active 226045819 Problem Tobacco use Z72.0 Active 60079889 0 Problem Allergic rhinitis, unspecified J30.9 Active 63063518 Problem Chronic prescription benzodiazepine use Z79.899 Active 816579179 Problem Chronic prescription opiate use Z79.899 Active 758120392 ALLERGIES No Information ENCOUNTERS Encounter Location Date Diagnosis [facility] [address] [id number] 07 Aug, 2018 [facility] [address] [address] Jun, [facility] [address] [address] Jun, Generalized anxiety disorder F41.1 [place] [address] [address] Jun, [place] [address] [address] May, BMI 50.0-59.9, adult Z68.43 ; Splenic artery aneurysm I72.8 ; Decreased GFR R94.4 and Encounter for weight management Z76.89 [place] [address] [address] May, Decreased GFR R94.4 [place] [address] [address] 16 May, 2018 Mixed hyperlipidemia E78.2 ; Fatty liver K76.0 and Essential hypertension I10 [place] [address] [address] 07 May, 2018 Generalized anxiety disorder F41.1 ; Major depressive disorder, recurrent episode, mild degree F33.0 ; 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 and BMI 50.0-59.9, adult Z68.43 [facility] [address] [address] May, [facility] [address] [address] Apr, Generalized anxiety disorder F41.1 and Major depressive disorder, recurrent episode, mild degree F33.0 [place] [address] [facility] [id number] [address] [place] [id number] 15 Apr, 2018 BMI 50.0-59.9, adult Z68.43 and Encounter for weight loss counseling Z71.3 [place] [address] [facility] [id number] [address] [place] [id number] 03 Apr, 2018 [place] [address] [facility] [id number] [address] [place] [id number] 20 Mar, 2018 Generalized anxiety disorder F41.1 and Major depressive disorder, recurrent episode, mild degree F33.0 [place] [address] [facility] [id number] [address] [place] [id number] 18 Mar, 2018 [place] [address] [place] [id number] [address] [place] [id number] Mar, Generalized anxiety disorder F41.1 [place] [address] [facility] [id number] [address] [place] [id number] Mar, [place] [address] [facility] [id number] [address] [place] [id number] 14 Feb, 2018 Generalized anxiety disorder F41.1 ; Major depressive disorder, recurrent episode, mild degree F33.0 and 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 [place] [address] [facility] [id number] [address] [place] [id number] Feb, Generalized anxiety disorder F41.1 and Major depressive disorder, recurrent episode, mild degree F33.0 [place] [address] [facility] [id number] [address] [place] [address] Feb, [place] [address] [facility] [id number] [address] [place] [address] Feb, Restrictive lung disease J98 .4 ; Pulmonary emphysema, unspecified emphysema type J43.9 and Body mass index (bmi) 50-59.9 , adult Z68.43 [place] [address] [place] [id number] [address] [place] [address] Feb, Generalized anxiety disorder F41.1 ; Major depressive disorder, recurrent episode, mild degree F33.0 and 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 [facility] [address] [facility] [id number] [address] [place] [id number] Feb, [facility] [address] [facility] [id number] [address] [place] [address] Jan, [facility] [address] [facility] [id number] [address] [place] [id number] Jan, Pulmonary emphysema, unspeci fied emphysema type J43.9 [facility] [address] [id number] [address] [place] [id number] Jan, Dental examination Z01.20 an d Dental caries K02.9 [facility] [address] [facility] [id number] [address] [place] [id number] Jan, Generalized anxiety disorder F41.1 and Major depressive disorder, recurrent episode, mild degree F33.0 [facility] [address] [facility] [id number] [address] [place] [id number] Jan, [facility] [address] [facility] [id number] [address] [place] [id number] Jan, Generalized anxiety disorder F41.1 [facility] [address] [facility] [id number] [address] [place] [address] Jan, Oral abscess K12.2 and BMI 5 0.0-59.9, adult Z68.43 [facility] [address] [facility] [id number] [address] [place] [address] Dec, BMI 50.0-59.9, adult Z68.43 and Weight loss counseling, encounter for Z71.3 [facility] [address] [facility] [id number] [address] [place] [id number] Dec, [facility] [address] [place] [id number] [address] [place] [address] Dec, [facility] [address] [place] [id number] [address] [place] [address] November, [facility] [address] [address] November, [facility] [address] [place] [id number] [address] [place] [address] November, Pulmonary emphysema, unspeci fied emphysema type J43.9 ; Restrictive lung disease J98.4 ; BMI 50.0-59.9, adult Z68.43 ; History of renal cell cancer Z85.528 ; Essential hypertension I10 ; Mixed hyperlipidemia E78.2 and Fatty liver K76.0 [place] [address] [address] November, Generalized anxiety disorder F41.1 [place] [address] [address] November, Generalized anxiety disorder F41.1 and Major depressive disorder, recurrent episode, mild degree F33.0 [place] [address] [place] [id number] [address] [place] [address] November, Generalized anxiety disorder F41.1 ; Major depressive disorder, recurrent episode, mild degree F33.0 and 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 [place] [address] [place] [id number] [address] [place] [address] November, [facility] [address] [place] [id number] [address] [place] [address] Oct, Generalized anxiety disorder F41.1 [facility] [id number] [place] [phone] Oct, [place] [address] [address] Oct, Influenza-like illness R69 [facility] [address] [place] [id number] [address] [place] [address] Sep, Influenza-like illness R69 [facility] [id number] [place] [address] Sep, Generalized anxiety disorder F41.1 [facility] [address] [place] [id number] [address] [place] [address] Sep, [facility] [address] [place] [id number] [address] [place] [address] Aug, [facility] [address] [address] Aug, [facility] [address] [address] Aug, Generalized anxiety disorder F41.1 [facility] [address] [place] [id number] [address] [place] [address] Aug, Influenza-like illness R69 a nd BMI 50.0-59.9, adult Z68.43 [facility] [address] [place] [id number] [address] [place] [address] Jul, Fatty liver K76.0 ; Restrict jean-paul lung disease J98.4 ; Diastolic dysfunction I51.9 ; Body mass index (bmi) 50-59.9 , adult Z68.43 and Chronic prescription opiate use Z79.899 [facility] [address] [place] [id number] [address] [place] [address] Jul, Generalized anxiety disorder F41.1 [facility] [address] [place] [id number] [address] [place] [address] Jul, Generalized anxiety disorder F41.1 [facility] [address] [place] [id number] [address] [place] [address] Jul, 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 [facility] [address] [place] [id number] [address] [place] [address] Jun, Generalized anxiety disorder F41.1 [facility] [address] [place] [id number] [address] [place] [address] Jun, [facility] [address] [id number] [address] [place] [id number] Jun, Mixed hyperlipidemia E78.2 [facility] [address] [id number] [address] [place] [id number] Jun, Generalized anxiety disorder F41.1 [facility] [address] [id number] [address] [place] [address] Jun, Generalized anxiety disorder F41.1 ; Major depressive disorder, recurrent episode, mild degree F33.0 and 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 [facility] [address] [id number] [address] [place] [address] May, [facility] [address] [id number] [address] [place] [address] May, Generalized anxiety disorder F41.1 [facility] [address] [id number] [address] [place] [address] May, Generalized anxiety disorder F41.1 [facility] [address] [id number] [address] [place] [id number] May, 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 [facility] [address] [id number] [address] [place] [address] Apr, Major depressive disorder, r ecurrent episode, mild degree F33.0 ; Generalized anxiety disorder F41.1 and Excoriation, neurotic L98.1 [facility] [address] [id number] [address] [place] [address] Apr, 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 [facility] [address] [facility] [id number] [address] [place] [address] Apr, Essential hypertension I10 a nd Mixed hyperlipidemia E78.2 [facility] [address] [id number] [address] [place] [address] Apr, Generalized anxiety disorder F41.1 ; Major depressive disorder, recurrent episode, mild degree F33.0 and 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 [facility] [address] [id number] [address] [place] [address] 06 Mar, 2017 Generalized anxiety disorder F41.1 ; Major depressive disorder, recurrent episode, mild degree F33.0 and 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 [facility] [address] [id number] [address] [place] [address] Mar, Skin lesion L98.9 [facility] [address] [id number] [address] [place] [address] Mar, 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 [facility] [address] [id number] [address] [place] [id number] Mar, [facility] [address] [id number] [address] [place] [id number] Mar, [facility] [address] [id number] [address] [place] [id number] Feb, Major depressive disorder, r ecurrent episode, mild degree F33.0 ; Generalized anxiety disorder F41.1 and Excoriation, neurotic L98.1 [facility] [address] [id number] [address] [place] [address] Feb, Generalized anxiety disorder F41.1 [facility] [address] [id number] [address] [place] [address] Feb, 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 [facility] [address] [id number] [address] [place] [address] Jan, [facility] [address] [facility] [id number] [address] [place] [address] Jan, Essential hypertension I10 ; Splenic artery aneurysm I72.8 ; Liver mass R16.0 ; Restrictive lung disease J98.4 ; Primary osteoarthritis involving multiple joints M15.0 ; Mixed hyperlipidemia E78.2 ; Bilateral carpal tunnel syndrome G56.03 ; Body mass index (bmi) 50-59.9 , adult Z68.43 and History of tobacco use Z87.891 [facility] [address] [id number] [address] [place] [address] Jan, Major depressive disorder, r ecurrent episode, mild degree F33.0 and Generalized anxiety disorder F41.1 [facility] [address] [id number] [address] [place] [address] Jan, [facility] [address] [id number] [address] [place] [phone] Jan, Generalized anxiety disorder F41.1 and Major depressive disorder, recurrent episode, mild degree F33.0 [place] [id number] [id number] [address] [place] [address] Dec, 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 [facility] [address] [id number] [address] [place] [address] Dec, Generalized anxiety disorder F41.1 [facility] [address] [id number] [address] [place] [address] Dec, [facility] [address] [id number] [address] [place] [address] Dec, Major depressive disorder, r ecurrent episode, mild degree F33.0 and Generalized anxiety disorder F41.1 [facility] [address] [id number] [address] [place] [address] Dec, Generalized anxiety disorder F41.1 and Major depressive disorder, recurrent episode, mild degree F33.0 [facility] [address] [id number] [address] [place] [address] November, Mild major depression F32.0 and Primary osteoarthritis involving multiple joints M15.0 [facility] [address] [id number] [address] [place] [address] November, Major depressive disorder, r ecurrent episode, mild degree F33.0 and Generalized anxiety disorder F41.1 [facility] [address] [address] November, 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 ; Essential hypertension I10 ; Prediabetes R73.09 ; Mixed hyperlipidemia E78.2 ; Chronic prescription benzodiazepine use Z79.899 ; Chronic prescription opiate use Z79.899 ; Tobacco use Z72.0 ; Bilateral carpal tunnel syndrome G56.03 and Body mass index (bmi) 50-59.9 , adult Z68.43 [place] [address] [address] November, 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 and Mild major depression F32.0 [place] [address] [address] Oct, [place] [address] [address] Oct, 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 ; Essential hypertension I10 ; Prediabetes R73.09 ; Chronic prescription benzodiazepine use Z79.899 ; Chronic prescription opiate use Z79.899 ; Tobacco use Z72.0 ; Mixed hyperlipidemia E78.2 ; Bilateral carpal tunnel syndrome G56.03 ; Body mass index (bmi) 50-59.9 , adult Z68.43 and Encounter for immunization Z23 [place] [address] [address] Oct, Major depressive disorder, r ecurrent episode, mild degree F33.0 and Generalized anxiety disorder F41.1 [place] [address] [place] [id number] [address] [place] [address] Oct, [place] [address] [address] Oct, [place] [address] [address] Sep, Mild major depression F32.0 [place] [address] [address] Sep, [facility] [address] [facility] [id number] [address] [place] [address] Sep, Mild major depression F32.0 and Generalized anxiety disorder F41.1 [facility] [address] [facility] [id number] [address] [place] [id number] Sep, Paresthesia of both hands R2 0.2 and Cervical radiculopathy M54.12 [facility] [address] [facility] [id number] [address] [place] [address] Sep, [facility] [address] [place] [id number] [place] [address] Sep, [facility] [address] [place] [id number] [place] [address] Aug, Paresthesia of both hands R2 0.2 and Neck pain M54.2 [facility] [address] [place] [id number] [place] [address] Aug, [facility] [address] [place] [id number] [place] [address] Jul, Neck pain M54.2 and Paresthe eddie of both hands R20.2 [facility] [address] [place] [id number] [address] [place] [address] Jul, Proteinuria, unspecified typ e R80.9 [facility] [address] [place] [id number] [address] [place] [address] Jul, Proteinuria, unspecified typ e R80.9 [place] [address] [place] [id number] [address] [place] [address] Jul, [facility] [address] [address] Jul, Other specified transient ce rebral ischemias G45.8 [facility] [address] [place] [id number] [address] [place] [address] Jun, Diastolic dysfunction I51.9 [facility] [address] [place] [id number] [address] [place] [address] 08 Jun, 2016 Diastolic dysfunction I51.9 [place] [address] [address] 06 Jun, 2016 Major depressive disorder, s david episode, unspecified F32.9 and Anxiety disorder, unspecified F41.9 [place] [address] [address] Jun, [facility] [address] [address] Jun, [place] [address] [address] May, Moderate major depression F3 2.1 and Generalized anxiety disorder F41.1 [place] [address] [address] 16 May, 2016 Major depressive disorder, s david episode, unspecified F32.9 and Anxiety disorder, unspecified F41.9 [place] [address] [address] 15 May, 2016 [place] [address] [address] 14 May, 2016 Liver enzyme elevation R74.8 [place] [address] [address] 14 May, 2016 Liver enzyme elevation R74.8 [place] [address] [address] 10 May, 2016 Shortness of breath on exert ion R06.02 ; Essential hypertension I10 ; Mixed hyperlipidemia E78.2 and Tobacco use Z72.0 [place] [address] [address] 03 May, 2016 [place] [address] [address] May, [place] [address] [id number] [address] [place] [address] Apr, Anxiety F41.9 and Depression F32.9 [facility] [address] [id number] [address] [place] [address] Apr, [facility] [address] [id number] [address] [place] [address] Apr, [facility] [address] [id number] [address] [place] [address] Mar, Depression F32.9 and Anxiety F41.9 [facility] [address] [id number] [address] [place] [address] Mar, Anxiety F41.9 and Depression F32.9 [facility] [address] [id number] [address] [place] [address] Mar, Well woman exam (no gynecolo gical exam) Z00.00 [facility] [address] [id number] [address] [place] [id number] Mar, [facility] [address] [id number] [address] [place] [id number] Mar, [facility] [address] [id number] [address] [place] [id number] Feb, Dental caries K02.9 [facility] [address] [id number] [address] [place] [id number] Feb, [facility] [address] [id number] [address] [place] [address] Feb, Anxiety F41.9 and Depression F32.9 [facility] [address] [id number] [address] [place] [id number] Feb, Dental examination Z01.20 [facility] [address] [id number] [address] [place] [id number] Feb, [facility] [address] [id number] [address] [place] [id number] Feb, [facility] [address] [id number] [address] [place] [id number] Feb, Anxiety F41.9 and Depression F32.9 [facility] [address] [id number] [address] [place] [id number] Jan, Severe episode of recurrent major depressive disorder, without psychotic features F33.2 and Anxiety disorder, unspecified F41.9 [facility] [address] [id number] [address] [place] [id number] Jan, [facility] [address] [id number] [address] [place] [id number] Dec, [facility] [address] [id number] [address] [place] [id number] Dec, Anxiety F41.9 and Depression F32.9 [facility] [address] [id number] [address] [place] [id number] Dec, Other specified transient ce rebral ischemias G45.8 and Nocturnal hypoxia G47.34 [facility] [address] [id number] [place] [id number] Dec, [place] [address] [id number] [address] [place] [id number] Dec, Other specified transient ce rebral ischemias G45.8 [place] [address] [id number] [address] [place] [id number] 16 Dec, 2015 Severe episode of recurrent major depressive disorder, without psychotic features F33.2 and Anxiety disorder, unspecified F41.9 [place] [id number] [id number] [address] [place] [phone] Dec, [place] [address] [id number] [address] [place] [phone] Dec, Anxiety F41.9 and Depression F32.9 [place] [address] [id number] [address] [place] [phone] Dec, Anxiety F41.9 and Depression F32.9 [place] [address] [facility] [id number] [address] [place] [id number] Dec, [facility] [address] [facility] [id number] [address] [place] [id number] November, Anxiety F41.9 and Depression F32.9 [place] [address] [facility] [id number] [address] [place] [id number] November, Severe episode of recurrent major depressive disorder, without psychotic features F33.2 [place] [address] [facility] [id number] [address] [place] [phone] November, Mixed hyperlipidemia E78.2 [place] [address] [place] [id number] [address] [place] [id number] November, Anxiety F41.9 and Depression F32.9 [place] [address] [place] [id number] [address] [place] [id number] November, Prediabetes R73.09 ; Essenti al hypertension I10 ; Anxiety F41.9 ; Depression F32.9 ; Gastroesophageal reflux disease, esophagitis presence not specified K21.9 ; Primary osteoarthritis involving multiple joints M15.0 ; History of renal cell cancer Z85.528 ; Postnasal drip R09.82 ; Allergic rhinitis, unspecified J30.9 and Tobacco use Z72.0 [place] [address] [place] [id number] [address] [place] [id number] Oct, Anxiety F41.9 and Depression F32.9 [place] [address] [facility] [id number] [address] [place] [id number] Oct, [place] [address] [place] [id number] [address] [place] [id number] Oct, [place] [address] [place] [id number] [address] [place] [phone] Sep, Splenic artery aneurysm I72. 8 [place] [address] [id number] 10 Sep, 2015 Depression F32.9 ; Anxiety F 41.9 ; Chronic prescription benzodiazepine use Z79.899 and Splenic artery aneurysm I72.8 [facility] [address] [id number] 10 Sep, 2015 Depression F32.9 and Anxiety F41.9 [facility] [address] [id number] Sep, [facility] [address] [id number] 18 Aug, 2015 Dehydration E86.0 ; Diarrhea R19.7 ; Nausea R11.0 and Generalized abdominal pain R10.84 [facility] [address] [id number] Aug, [facility] [address] [id number] Jul, Depression F32.9 [facility] [address] [address] Jul, [facility] [address] [address] Jul, Anxiety F41.9 and Depression F32.9 [facility] [address] [id number] Jul, [facility] [address] [id number] Jun, Epigastric pain R10.13 [facility] [address] [id number] Jun, [facility] [address] [id number] Jun, [facility] [address] [id number] May, [place] [id number] [id number] [address] [place] [phone] May, [facility] [address] [id number] [address] [place] [phone] Apr, [facility] [address] [id number] [address] [place] [phone] Mar, Anxiety state, unspecified 3 00.00 ; Depression 311 ; Prediabetes 790.29 ; Generalized osteoarthrosis, involving multiple sites 715.09 and Hypertension 401.9 [facility] [address] [id number] [address] [place] [id number] Mar, [facility] [address] [id number] [address] [place] [phone] Feb, [facility] [address] [facility] [id number] [address] [place] [id number] Jan, [facility] [address] [id number] [address] [place] [id number] Jan, [facility] [address] [id number] [address] [place] [id number] Jan, Generalized osteoarthrosis, involving multiple sites 715.09 [facility] [address] [facility] [id number] [address] [place] [id number] Jan, Hx of renal cell cancer V10. 52 [facility] [address] [id number] [address] [place] [phone] Dec, Generalized osteoarthrosis, involving multiple sites 715.09 and Hx of renal cell cancer V10.52 [facility] [address] [id number] [address] [place] [id number] Dec, [facility] [address] [facility] [id number] [address] [place] [id number] Dec, [facility] [address] [facility] [id number] [address] [place] [phone] November, [facility] [address] [id number] [address] [place] [id number] Oct, [facility] [address] [id number] [address] [place] [phone] Oct, [facility] [address] [id number] [address] [place] [phone] Sep, [facility] [address] [id number] [address] [place] [phone] Sep, [facility] [address] [id number] [address] [place] [phone] Sep, [facility] [address] [id number] [address] [place] [id number] Sep, [facility] [address] [facility] [id number] [address] [place] [id number] Aug, [facility] [address] [facility] [id number] [address] [place] [phone] Aug, IMMUNIZATIONS No Known Immunizations SOCIAL HISTORY Never Assessed REASON FOR VISIT Controlled Refill 06/30 PLAN OF CARE VITAL SIGNS MEDICATIONS Medication Instructions Dosage Frequency Start Date End Date Duration S tatus Hydrocodone-Acetaminophen 5-325 MG Orally 2 times a day as n eeded for pain take 1 tablet Jun, 28 Active RESULTS No Results PROCEDURES No [...]
--- OUTSIDE RECORDS SUMMARY | 2020-02-08 07:10 | XMS REPORT ---
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 Name Role Phone GIGI NO Unavailable PROBLEMS Type Condition ICD9-CM Code FKI70-YP Code Onset Dates Condition S tatus SNOMED Code Problem Mixed hyperlipidemia E78.2 Active 890405757 Problem Fatty liver K76.0 Active 84092270 7 Problem Obstructive sleep apnea G47.33 Active 29819293 Problem Essential hypertension I10 Active 62732482 Problem History of renal cell cancer Z85.528 A ctive 306194543 Problem Prediabetes R73.09 Active 5974158 Problem Diastolic dysfunction I51.9 Active 9095509 Problem Liver mass R16.0 Active 361657852 Problem Paresthesia of both hands R20.2 Acti ve 202399716 Problem Major depressive disorder, recurrent episode, mild degree F33.0 Active 681384820 Problem Body mass index (bmi) 50-59.9 , adult Z68.43 Active 616977908 Problem Decreased GFR R94.4 Active 836997 04 Problem 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 Acti ve 468314625 Problem 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 Active 256553972 Problem Restrictive lung disease J98.4 Activ e 16133048 Problem Splenic artery aneurysm I72.8 Active 03295386 Problem History of tobacco use Z87.891 Active 3759337877399 Problem Generalized anxiety disorder F41.1 A ctive 30556867 Problem BMI 50.0-59.9, adult Z68.43 Active 982174779 Problem Excoriation, neurotic L98.1 Active 57921175 Problem Isolated proteinuria without specific morphologic lesion R80.0 Active 40485512 Problem Bilateral carpal tunnel syndrome G56.03 Active 24439679 Problem Pulmonary emphysema, unspecified emphysema type J4 3.9 Active 88591498 Problem Primary osteoarthritis involving multiple joints M 15.0 Active 970249136 Problem Tobacco use Z72.0 Active 60242252 0 Problem Allergic rhinitis, unspecified J30.9 Active 16711649 Problem Chronic prescription benzodiazepine use Z79.899 Active 522124304 Problem Chronic prescription opiate use Z79.899 Active 455348326 ALLERGIES No Information ENCOUNTERS Encounter Location Date Diagnosis [facility] [address] [id number] 07 Aug, 2018 [facility] [address] [address] Jun, [facility] [address] [address] Jun, Generalized anxiety disorder F41.1 [place] [address] [address] Jun, [place] [address] [address] May, BMI 50.0-59.9, adult Z68.43 ; Splenic artery aneurysm I72.8 ; Decreased GFR R94.4 and Encounter for weight management Z76.89 [place] [address] [address] 19 May, 2018 Decreased GFR R94.4 [place] [address] [address] 16 May, 2018 Mixed hyperlipidemia E78.2 ; Fatty liver K76.0 and Essential hypertension I10 [place] [address] [address] 07 May, 2018 Generalized anxiety disorder F41.1 ; Major depressive disorder, recurrent episode, mild degree F33.0 ; 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 and BMI 50.0-59.9, adult Z68.43 [place] [address] [address] May, [facility] [address] [address] Apr, Generalized anxiety disorder F41.1 and Major depressive disorder, recurrent episode, mild degree F33.0 [place] [address] [facility] [id number] [address] [place] [address] 15 Apr, 2018 BMI 50.0-59.9, adult Z68.43 and Encounter for weight loss counseling Z71.3 [place] [address] [facility] [id number] [address] [place] [address] 03 Apr, 2018 [place] [address] [facility] [id number] [address] [place] [address] 20 Mar, 2018 Generalized anxiety disorder F41.1 and Major depressive disorder, recurrent episode, mild degree F33.0 [place] [address] [facility] [id number] [address] [place] [id number] 18 Mar, 2018 [place] [address] [facility] [id number] [address] [place] [id number] Mar, Generalized anxiety disorder F41.1 [place] [address] [facility] [id number] [address] [place] [phone] Mar, [place] [address] [facility] [id number] [address] [place] [phone] Feb, Generalized anxiety disorder F41.1 ; Major depressive disorder, recurrent episode, mild degree F33.0 and 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 [place] [address] [facility] [id number] [address] [place] [address] Feb, Generalized anxiety disorder F41.1 and Major depressive disorder, recurrent episode, mild degree F33.0 [place] [address] [facility] [id number] [address] [place] [address] Feb, [place] [address] [facility] [id number] [address] [place] [phone] Feb, Restrictive lung disease J98 .4 ; Pulmonary emphysema, unspecified emphysema type J43.9 and Body mass index (bmi) 50-59.9 , adult Z68.43 [place] [address] [place] [id number] [address] [place] [phone] Feb, Generalized anxiety disorder F41.1 ; Major depressive disorder, recurrent episode, mild degree F33.0 and 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 [facility] [address] [facility] [id number] [address] [place] [phone] Feb, [facility] [address] [facility] [id number] [address] [place] [id number] Jan, [facility] [address] [facility] [id number] [address] [place] [phone] Jan, Pulmonary emphysema, unspeci fied emphysema type J43.9 [facility] [address] [id number] [address] [place] [id number] Jan, Dental examination Z01.20 an d Dental caries K02.9 [place] [address] [facility] [id number] [address] [place] [phone] Jan, Generalized anxiety disorder F41.1 and Major depressive disorder, recurrent episode, mild degree F33.0 [facility] [address] [facility] [id number] [address] [place] [phone] Jan, [facility] [address] [facility] [id number] [address] [place] [phone] Jan, Generalized anxiety disorder F41.1 [facility] [address] [facility] [id number] [address] [place] [phone] Jan, Oral abscess K12.2 and BMI 5 0.0-59.9, adult Z68.43 [facility] [address] [facility] [id number] [address] [place] [phone] Dec, BMI 50.0-59.9, adult Z68.43 and Weight loss counseling, encounter for Z71.3 [facility] [address] [facility] [id number] [address] [place] [phone] Dec, [facility] [address] [facility] [id number] [address] [place] [phone] Dec, [facility] [address] [place] [id number] [address] [place] [phone] November, [facility] [address] [place] [id number] [address] [place] [phone] November, [facility] [address] [place] [id number] [address] [place] [address] November, Pulmonary emphysema, unspeci fied emphysema type J43.9 ; Restrictive lung disease J98.4 ; BMI 50.0-59.9, adult Z68.43 ; History of renal cell cancer Z85.528 ; Essential hypertension I10 ; Mixed hyperlipidemia E78.2 and Fatty liver K76.0 [place] [address] [address] November, Generalized anxiety disorder F41.1 [place] [address] [address] November, Generalized anxiety disorder F41.1 and Major depressive disorder, recurrent episode, mild degree F33.0 [place] [address] [place] [id number] [address] [place] [phone] November, Generalized anxiety disorder F41.1 ; Major depressive disorder, recurrent episode, mild degree F33.0 and 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 [place] [id number] [place] [address] November, [facility] [address] [place] [id number] [address] [place] [phone] Oct, Generalized anxiety disorder F41.1 [place] [address] [place] [id number] [address] [place] [phone] Oct, [place] [address] [place] [id number] [address] [place] [phone] Oct, Influenza-like illness R69 [facility] [address] [place] [id number] [address] [place] [phone] Sep, Influenza-like illness R69 [facility] [address] [place] [address] Sep, Generalized anxiety disorder F41.1 [facility] [address] [place] [id number] [address] [place] [address] Sep, [facility] [address] [place] [id number] [address] [place] [phone] Aug, [facility] [address] [address] Aug, [facility] [address] [address] Aug, Generalized anxiety disorder F41.1 [facility] [address] [place] [id number] [address] [place] [address] Aug, Influenza-like illness R69 a nd BMI 50.0-59.9, adult Z68.43 [facility] [address] [place] [id number] [address] [place] [address] Jul, Fatty liver K76.0 ; Restrict jean-paul lung disease J98.4 ; Diastolic dysfunction I51.9 ; Body mass index (bmi) 50-59.9 , adult Z68.43 and Chronic prescription opiate use Z79.899 [facility] [address] [place] [id number] [address] [place] [address] Jul, Generalized anxiety disorder F41.1 [facility] [address] [place] [address] Jul, Generalized anxiety disorder F41.1 [facility] [address] [place] [id number] [address] [place] [address] Jul, 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 [facility] [address] [place] [id number] [address] [place] [phone] Jun, Generalized anxiety disorder F41.1 [facility] [address] [place] [id number] [address] [place] [phone] Jun, [facility] [address] [id number] [address] [place] [phone] Jun, Mixed hyperlipidemia E78.2 [facility] [address] [id number] [address] [place] [id number] Jun, Generalized anxiety disorder F41.1 [facility] [address] [id number] [address] [place] [phone] Jun, Generalized anxiety disorder F41.1 ; Major depressive disorder, recurrent episode, mild degree F33.0 and 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 [facility] [address] [id number] [address] [place] [phone] May, [facility] [address] [id number] [address] [place] [phone] May, Generalized anxiety disorder F41.1 [facility] [address] [id number] [address] [place] [phone] May, Generalized anxiety disorder F41.1 [facility] [address] [id number] [address] [place] [phone] May, 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 [facility] [address] [id number] [address] [place] [address] Apr, Major depressive disorder, r ecurrent episode, mild degree F33.0 ; Generalized anxiety disorder F41.1 and Excoriation, neurotic L98.1 [facility] [address] [id number] [address] [place] [phone] Apr, 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 [facility] [address] [facility] [id number] [address] [place] [phone] Apr, Essential hypertension I10 a nd Mixed hyperlipidemia E78.2 [facility] [address] [id number] [address] [place] [phone] Apr, Generalized anxiety disorder F41.1 ; Major depressive disorder, recurrent episode, mild degree F33.0 and 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 [facility] [address] [id number] [address] [place] [address] 06 Mar, 2017 Generalized anxiety disorder F41.1 ; Major depressive disorder, recurrent episode, mild degree F33.0 and 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 [facility] [address] [id number] [address] [place] [phone] Mar, Skin lesion L98.9 [facility] [address] [id number] [address] [place] [phone] Mar, 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 [facility] [address] [id number] [address] [place] [id number] Mar, [facility] [address] [id number] [address] [place] [phone] Mar, [facility] [address] [id number] [address] [place] [phone] Feb, Major depressive disorder, r ecurrent episode, mild degree F33.0 ; Generalized anxiety disorder F41.1 and Excoriation, neurotic L98.1 [facility] [address] [id number] [address] [place] [id number] Feb, Generalized anxiety disorder F41.1 [facility] [address] [id number] [address] [place] [phone] Feb, 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 [facility] [address] [id number] [address] [place] [phone] Jan, [facility] [address] [facility] [id number] [address] [place] [phone] Jan, Essential hypertension I10 ; Splenic artery aneurysm I72.8 ; Liver mass R16.0 ; Restrictive lung disease J98.4 ; Primary osteoarthritis involving multiple joints M15.0 ; Mixed hyperlipidemia E78.2 ; Bilateral carpal tunnel syndrome G56.03 ; Body mass index (bmi) 50-59.9 , adult Z68.43 and History of tobacco use Z87.891 [facility] [address] [id number] [address] [place] [address] Jan, Major depressive disorder, r ecurrent episode, mild degree F33.0 and Generalized anxiety disorder F41.1 [facility] [address] [id number] [address] [place] [id number] Jan, [facility] [address] [id number] [address] [place] [phone] Jan, Generalized anxiety disorder F41.1 and Major depressive disorder, recurrent episode, mild degree F33.0 [place] [id number] [id number] [address] [place] [phone] Dec, 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 [facility] [address] [id number] [address] [place] [address] Dec, Generalized anxiety disorder F41.1 [facility] [address] [id number] [address] [place] [phone] Dec, [facility] [address] [id number] [address] [place] [phone] Dec, Major depressive disorder, r ecurrent episode, mild degree F33.0 and Generalized anxiety disorder F41.1 [facility] [address] [id number] [address] [place] [phone] Dec, Generalized anxiety disorder F41.1 and Major depressive disorder, recurrent episode, mild degree F33.0 [facility] [address] [id number] [address] [place] [address] November, Mild major depression F32.0 and Primary osteoarthritis involving multiple joints M15.0 [facility] [address] [id number] [address] [place] [phone] November, Major depressive disorder, r ecurrent episode, mild degree F33.0 and Generalized anxiety disorder F41.1 [facility] [address] [address] November, 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 ; Essential hypertension I10 ; Prediabetes R73.09 ; Mixed hyperlipidemia E78.2 ; Chronic prescription benzodiazepine use Z79.899 ; Chronic prescription opiate use Z79.899 ; Tobacco use Z72.0 ; Bilateral carpal tunnel syndrome G56.03 and Body mass index (bmi) 50-59.9 , adult Z68.43 [place] [address] [address] November, 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 and Mild major depression F32.0 [place] [address] [address] Oct, [place] [address] [address] Oct, 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 ; Essential hypertension I10 ; Prediabetes R73.09 ; Chronic prescription benzodiazepine use Z79.899 ; Chronic prescription opiate use Z79.899 ; Tobacco use Z72.0 ; Mixed hyperlipidemia E78.2 ; Bilateral carpal tunnel syndrome G56.03 ; Body mass index (bmi) 50-59.9 , adult Z68.43 and Encounter for immunization Z23 [place] [address] [address] Oct, Major depressive disorder, r ecurrent episode, mild degree F33.0 and Generalized anxiety disorder F41.1 [place] [address] [place] [id number] [place] [phone] Oct, [place] [address] [address] Oct, [place] [address] [address] Sep, Mild major depression F32.0 [place] [address] [address] Sep, [facility] [address] [facility] [id number] [address] [place] [address] Sep, Mild major depression F32.0 and Generalized anxiety disorder F41.1 [facility] [address] [facility] [id number] [address] [place] [phone] Sep, Paresthesia of both hands R2 0.2 and Cervical radiculopathy M54.12 [facility] [address] [facility] [id number] [address] [place] [phone] Sep, [facility] [address] [place] [id number] [address] [place] [id number] Sep, [facility] [address] [place] [id number] [place] [address] Aug, Paresthesia of both hands R2 0.2 and Neck pain M54.2 [facility] [address] [address] Aug, [facility] [address] [place] [id number] [address] [place] [address] Jul, Neck pain M54.2 and Paresthe eddie of both hands R20.2 [place] [address] [place] [id number] [address] [place] [address] Jul, Proteinuria, unspecified typ e R80.9 [place] [address] [place] [id number] [place] [address] Jul, Proteinuria, unspecified typ e R80.9 [place] [address] [place] [id number] [address] [place] [address] Jul, [place] [address] [address] Jul, Other specified transient ce rebral ischemias G45.8 [facility] [address] [place] [id number] [address] [place] [address] Jun, Diastolic dysfunction I51.9 [facility] [address] [place] [id number] [address] [place] [phone] 08 Jun, 2016 Diastolic dysfunction I51.9 [facility] [address] [place] [id number] [place] [phone] 06 Jun, 2016 Major depressive disorder, s david episode, unspecified F32.9 and Anxiety disorder, unspecified F41.9 [facility] [address] [address] Jun, [facility] [address] [address] Jun, [facility] [address] [address] May, Moderate major depression F3 2.1 and Generalized anxiety disorder F41.1 [place] [address] [address] 16 May, 2016 Major depressive disorder, s david episode, unspecified F32.9 and Anxiety disorder, unspecified F41.9 [place] [address] [address] 15 May, 2016 [place] [address] [address] 14 May, 2016 Liver enzyme elevation R74.8 [place] [address] [address] 14 May, 2016 Liver enzyme elevation R74.8 [place] [address] [address] 10 May, 2016 Shortness of breath on exert ion R06.02 ; Essential hypertension I10 ; Mixed hyperlipidemia E78.2 and Tobacco use Z72.0 [facility] [address] [address] 03 May, 2016 [facility] [address] [address] May, [facility] [address] [id number] [address] [place] [address] Apr, Anxiety F41.9 and Depression F32.9 [facility] [address] [id number] [address] [place] [phone] Apr, [facility] [address] [id number] [address] [place] [phone] Apr, [facility] [address] [id number] [address] [place] [phone] Mar, Depression F32.9 and Anxiety F41.9 [facility] [address] [id number] [address] [place] [id number] 08 Mar, 2016 Anxiety F41.9 and Depression F32.9 [facility] [address] [id number] [address] [place] [address] Mar, Well woman exam (no gynecolo gical exam) Z00.00 [facility] [address] [id number] [address] [place] [phone] Mar, [facility] [address] [id number] [address] [place] [phone] Mar, [facility] [address] [id number] [address] [place] [id number] Feb, Dental caries K02.9 [facility] [address] [id number] [address] [place] [phone] Feb, [facility] [address] [id number] [address] [place] [phone] Feb, Anxiety F41.9 and Depression F32.9 [facility] [address] [id number] [address] [place] [id number] Feb, Dental examination Z01.20 [facility] [address] [id number] [address] [place] [phone] Feb, [facility] [address] [id number] [address] [place] [phone] Feb, [facility] [address] [id number] [address] [place] [phone] Feb, Anxiety F41.9 and Depression F32.9 [facility] [address] [id number] [address] [place] [phone] Jan, Severe episode of recurrent major depressive disorder, without psychotic features F33.2 and Anxiety disorder, unspecified F41.9 [facility] [address] [id number] [address] [place] [phone] Jan, [facility] [address] [id number] [address] [place] [phone] Dec, [facility] [address] [id number] [address] [place] [phone] Dec, Anxiety F41.9 and Depression F32.9 [facility] [address] [id number] [address] [place] [phone] Dec, Other specified transient ce rebral ischemias G45.8 and Nocturnal hypoxia G47.34 [facility] [address] [id number] [address] [place] [phone] Dec, [facility] [address] [id number] [address] [place] [phone] Dec, Other specified transient ce rebral ischemias G45.8 [facility] [address] [id number] [address] [place] [phone] 16 Dec, 2015 Severe episode of recurrent major depressive disorder, without psychotic features F33.2 and Anxiety disorder, unspecified F41.9 [facility] [address] [address] [id number] [address] [place] [id number] Dec, [place] [address] [facility] [id number] [address] [place] [phone] Dec, Anxiety F41.9 and Depression F32.9 [place] [address] [facility] [id number] [address] [place] [phone] Dec, Anxiety F41.9 and Depression F32.9 [place] [address] [place] [id number] [address] [place] [phone] Dec, [facility] [address] [place] [id number] [address] [place] [id number] November, Anxiety F41.9 and Depression F32.9 [place] [address] [phone] November, Severe episode of recurrent major depressive disorder, without psychotic features F33.2 [place] [address] [address] November, Mixed hyperlipidemia E78.2 [place] [address] [address] November, Anxiety F41.9 and Depression F32.9 [place] [address] [address] November, Prediabetes R73.09 ; Essenti al hypertension I10 ; Anxiety F41.9 ; Depression F32.9 ; Gastroesophageal reflux disease, esophagitis presence not specified K21.9 ; Primary osteoarthritis involving multiple joints M15.0 ; History of renal cell cancer Z85.528 ; Postnasal drip R09.82 ; Allergic rhinitis, unspecified J30.9 and Tobacco use Z72.0 [place] [address] [place] [id number] [address] [place] [phone] Oct, Anxiety F41.9 and Depression F32.9 [place] [id number] [place] [phone] Oct, [place] [address] [id number] Oct, [place] [address] [place] [id number] [address] [place] [phone] Sep, Splenic artery aneurysm I72. 8 [place] [address] [place] [id number] [address] [place] [phone] 10 Sep, 2015 Depression F32.9 ; Anxiety F 41.9 ; Chronic prescription benzodiazepine use Z79.899 and Splenic artery aneurysm I72.8 [facility] [address] [id number] 10 Sep, 2015 Depression F32.9 and Anxiety F41.9 [facility] [address] [address] Sep, [facility] [address] [address] Aug, Dehydration E86.0 ; Diarrhea R19.7 ; Nausea R11.0 and Generalized abdominal pain R10.84 [facility] [address] [address] Aug, [facility] [address] [address] Jul, Depression F32.9 [facility] [address] [address] Jul, [facility] [address] [address] Jul, Anxiety F41.9 and Depression F32.9 [facility] [address] [id number] Jul, [facility] [address] [id number] Jun, Epigastric pain R10.13 [facility] [address] [address] Jun, [facility] [address] [place] [id number] [place] [phone] Jun, [facility] [address] [id number] May, [facility] [address] [id number] [address] [place] [phone] May, [facility] [address] [id number] [address] [place] [phone] Apr, [facility] [address] [id number] [address] [place] [phone] Mar, Anxiety state, unspecified 3 00.00 ; Depression 311 ; Prediabetes 790.29 ; Generalized osteoarthrosis, involving multiple sites 715.09 and Hypertension 401.9 [facility] [address] [id number] [address] [place] [phone] Mar, [facility] [address] [id number] [address] [place] [phone] Feb, [facility] [address] [id number] [address] [place] [phone] Jan, [facility] [address] [id number] [address] [place] [phone] Jan, [facility] [address] [id number] [address] [place] [phone] Jan, Generalized osteoarthrosis, involving multiple sites 715.09 [facility] [address] [id number] [address] [place] [id number] Jan, Hx of renal cell cancer V10. 52 [facility] [address] [id number] [address] [place] [phone] Dec, Generalized osteoarthrosis, involving multiple sites 715.09 and Hx of renal cell cancer V10.52 [facility] [address] [id number] [address] [place] [phone] Dec, [facility] [address] [id number] [address] [place] [phone] Dec, [facility] [address] [id number] [address] [place] [phone] November, [facility] [address] [id number] [address] [place] [phone] Oct, [facility] [address] [id number] [address] [place] [phone] Oct, [facility] [address] [id number] [address] [place] [phone] Sep, [facility] [address] [id number] [address] [place] [phone] Sep, [facility] [address] [id number] [address] [place] [phone] Sep, [facility] [address] [id number] [address] [place] [phone] Sep, [facility] [address] [id number] [address] [place] [phone] Aug, [facility] [address] [id number] [address] [place] [phone] Aug, IMMUNIZATIONS No Known Immunizations SOCIAL HISTORY Never Assessed REASON FOR VISIT ambien refill PLAN OF CARE VITAL SIGNS MEDICATIONS Medication Instructions Dosage Frequency Start Date End Date Duration S tatus Ambien 10 mg Orally at bedtime 1 tablet Feb, 30 days Active RESULTS No Results PROCEDURES No Known [...]
--- OUTSIDE RECORDS SUMMARY | 2020-02-08 07:10 | XMS REPORT ---
Author Author Emilee MAY Organization [facility] Address [address] [place] [address] Care Team Providers Care Admin Prog Coord Name Role Phone LALOJEZALBANIA Unavailable PROBLEMS Type Condition ICD9-CM Code SZH82-TM Code Onset Dates Condition S tatus SNOMED Code Problem Mixed hyperlipidemia E78.2 Active 461710358 Problem Fatty liver K76.0 Active 87102335 7 Problem Obstructive sleep apnea G47.33 Active 96848266 Problem Essential hypertension I10 Active 97752490 Problem History of renal cell cancer Z85.528 A ctive 367802130 Problem Prediabetes R73.09 Active 4471839 Problem Diastolic dysfunction I51.9 Active 8023203 Problem Liver mass R16.0 Active 511560987 Problem Paresthesia of both hands R20.2 Acti ve 822574883 Problem Major depressive disorder, recurrent episode, mild degree F33.0 Active 661210567 Problem Body mass index (bmi) 50-59.9 , adult Z68.43 Active 053140690 Problem Decreased GFR R94.4 Active 012497 04 Problem 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 Acti ve 055767858 Problem 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 Active 802480036 Problem Restrictive lung disease J98.4 Activ e 90686178 Problem Splenic artery aneurysm I72.8 Active 46477423 Problem History of tobacco use Z87.891 Active 3091468722563 Problem Generalized anxiety disorder F41.1 A ctive 01083307 Problem BMI 50.0-59.9, adult Z68.43 Active 869566325 Problem Excoriation, neurotic L98.1 Active 55289768 Problem Isolated proteinuria without specific morphologic lesion R80.0 Active 28992950 Problem Bilateral carpal tunnel syndrome G56.03 Active 96317787 Problem Pulmonary emphysema, unspecified emphysema type J4 3.9 Active 62465394 Problem Primary osteoarthritis involving multiple joints M 15.0 Active 178725062 Problem Tobacco use Z72.0 Active 59408901 0 Problem Allergic rhinitis, unspecified J30.9 Active 50803790 Problem Chronic prescription benzodiazepine use Z79.899 Active 160490303 Problem Chronic prescription opiate use Z79.899 Active 046657782 ALLERGIES No Information ENCOUNTERS Encounter Location Date Diagnosis [facility] [address] [facility] [id number] [address] [place] [id number] 07 Aug, 2018 [facility] [address] [facility] [id number] [address] [place] [phone] Jul, [facility] [address] [facility] [id number] [address] [place] [phone] Jun, Decreased GFR R94.4 [facility] [address] [place] [id number] [place] [address] Jun, Generalized anxiety disorder F41.1 [facility] [address] [address] Jun, Generalized anxiety disorder F41.1 [facility] [address] [place] [id number] [address] [place] [phone] Jun, [facility] [address] [address] May, BMI 50.0-59.9, adult Z68.43 ; Splenic artery aneurysm I72.8 ; Decreased GFR R94.4 and Encounter for weight management Z76.89 [facility] [address] [facility] [id number] [address] [place] [id number] May, Decreased GFR R94.4 [facility] [address] [place] [id number] [address] [place] [id number] 16 May, 2018 Mixed hyperlipidemia E78.2 ; Fatty liver K76.0 and Essential hypertension I10 [facility] [address] [place] [id number] [address] [place] [id number] 07 May, 2018 Generalized anxiety disorder F41.1 ; Major depressive disorder, recurrent episode, mild degree F33.0 ; 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 and BMI 50.0-59.9, adult Z68.43 [facility] [address] [id number] [address] [place] [phone] May, [facility] [address] [facility] [id number] [address] [place] [id number] Apr, Generalized anxiety disorder F41.1 and Major depressive disorder, recurrent episode, mild degree F33.0 [facility] [address] [id number] [address] [place] [id number] 15 Apr, 2018 BMI 50.0-59.9, adult Z68.43 and Encounter for weight loss counseling Z71.3 [facility] [address] [id number] [address] [place] [phone] Apr, [facility] [address] [facility] [id number] [address] [place] [id number] 20 Mar, 2018 Generalized anxiety disorder F41.1 and Major depressive disorder, recurrent episode, mild degree F33.0 [facility] [address] [id number] [address] [place] [id number] 18 Mar, 2018 [facility] [address] [id number] [address] [place] [id number] 12 Mar, 2018 Generalized anxiety disorder F41.1 [facility] [address] [id number] [address] [place] [id number] Mar, [facility] [address] [facility] [id number] [address] [place] [id number] 14 Feb, 2018 Generalized anxiety disorder F41.1 ; Major depressive disorder, recurrent episode, mild degree F33.0 and 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 [facility] [address] [id number] [address] [place] [id number] 13 Feb, 2018 Generalized anxiety disorder F41.1 and Major depressive disorder, recurrent episode, mild degree F33.0 [facility] [address] [id number] [address] [place] [phone] Feb, [facility] [address] [id number] [address] [place] [phone] Feb, Restrictive lung disease J98 .4 ; Pulmonary emphysema, unspecified emphysema type J43.9 and Body mass index (bmi) 50-59.9 , adult Z68.43 [facility] [address] [id number] [address] [place] [address] Feb, Generalized anxiety disorder F41.1 ; Major depressive disorder, recurrent episode, mild degree F33.0 and 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 [facility] [address] [id number] [address] [place] [phone] Feb, [facility] [address] [id number] [address] [place] [phone] Jan, [facility] [address] [facility] [id number] [address] [place] [id number] Jan, Pulmonary emphysema, unspeci fied emphysema type J43.9 [facility] [address] [id number] [address] [place] [id number] Jan, Dental examination Z01.20 an d Dental caries K02.9 [facility] [address] [facility] [id number] [address] [place] [id number] Jan, Generalized anxiety disorder F41.1 and Major depressive disorder, recurrent episode, mild degree F33.0 [facility] [address] [facility] [id number] [address] [place] [phone] Jan, [facility] [address] [facility] [id number] [address] [place] [phone] Jan, Generalized anxiety disorder F41.1 [facility] [address] [facility] [id number] [address] [place] [id number] Jan, Oral abscess K12.2 and BMI 5 0.0-59.9, adult Z68.43 [facility] [address] [facility] [id number] [address] [place] [id number] Dec, BMI 50.0-59.9, adult Z68.43 and Weight loss counseling, encounter for Z71.3 [facility] [address] [place] [id number] [address] [place] [id number] Dec, [facility] [address] [place] [id number] [address] [place] [id number] Dec, [facility] [address] [place] [id number] [address] [place] [id number] November, [facility] [address] [place] [id number] [place] [address] November, [facility] [address] [place] [id number] [place] [address] November, Pulmonary emphysema, unspeci fied emphysema type J43.9 ; Restrictive lung disease J98.4 ; BMI 50.0-59.9, adult Z68.43 ; History of renal cell cancer Z85.528 ; Essential hypertension I10 ; Mixed hyperlipidemia E78.2 and Fatty liver K76.0 [facility] [address] [place] [id number] [address] [place] [phone] November, Generalized anxiety disorder F41.1 [facility] [address] [place] [id number] [place] [phone] November, Generalized anxiety disorder F41.1 and Major depressive disorder, recurrent episode, mild degree F33.0 [facility] [address] [place] [id number] [place] [address] November, Generalized anxiety disorder F41.1 ; Major depressive disorder, recurrent episode, mild degree F33.0 and 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 [facility] [address] [place] [id number] [address] [place] [phone] November, [facility] [address] [place] [id number] [place] [address] Oct, Generalized anxiety disorder F41.1 [facility] [address] [place] [id number] [place] [address] Oct, [facility] [address] [facility] [id number] [address] [place] [phone] Oct, Influenza-like illness R69 [facility] [address] [facility] [id number] [address] [place] [id number] Sep, Influenza-like illness R69 [facility] [address] [facility] [id number] [address] [place] [phone] Sep, Generalized anxiety disorder F41.1 [facility] [address] [facility] [id number] [address] [place] [phone] Sep, [facility] [address] [facility] [id number] [address] [place] [phone] Aug, [facility] [address] [facility] [id number] [address] [place] [phone] Aug, [facility] [address] [id number] Aug, Generalized anxiety disorder F41.1 [facility] [address] [facility] [id number] [address] [place] [id number] Aug, Influenza-like illness R69 a nd BMI 50.0-59.9, adult Z68.43 [facility] [address] [place] [id number] [address] [place] [id number] Jul, Fatty liver K76.0 ; Restrict jean-paul lung disease J98.4 ; Diastolic dysfunction I51.9 ; Body mass index (bmi) 50-59.9 , adult Z68.43 and Chronic prescription opiate use Z79.899 [facility] [address] [facility] [id number] [address] [place] [id number] Jul, Generalized anxiety disorder F41.1 [facility] [address] [place] [id number] [address] [place] [id number] Jul, Generalized anxiety disorder F41.1 [facility] [address] [place] [id number] [address] [place] [id number] Jul, 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 [facility] [address] [id number] [address] [place] [id number] Jun, Generalized anxiety disorder F41.1 [facility] [address] [id number] [address] [place] [id number] Jun, [facility] [address] [id number] [address] [place] [phone] Jun, Mixed hyperlipidemia E78.2 [facility] [address] [id number] [address] [place] [id number] Jun, Generalized anxiety disorder F41.1 [facility] [address] [id number] [address] [place] [id number] Jun, Generalized anxiety disorder F41.1 ; Major depressive disorder, recurrent episode, mild degree F33.0 and 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 [facility] [address] [id number] [address] [place] [phone] May, [facility] [address] [id number] [address] [place] [id number] May, Generalized anxiety disorder F41.1 [facility] [address] [id number] [address] [place] [phone] May, Generalized anxiety disorder F41.1 [facility] [address] [id number] [address] [place] [id number] May, 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 [facility] [address] [id number] [address] [place] [id number] Apr, Major depressive disorder, r ecurrent episode, mild degree F33.0 ; Generalized anxiety disorder F41.1 and Excoriation, neurotic L98.1 [facility] [address] [id number] [address] [place] [id number] Apr, 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 [facility] [address] [id number] [address] [place] [id number] Apr, Essential hypertension I10 a nd Mixed hyperlipidemia E78.2 [facility] [address] [id number] [address] [place] [id number] Apr, Generalized anxiety disorder F41.1 ; Major depressive disorder, recurrent episode, mild degree F33.0 and 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 [facility] [address] [id number] [address] [place] [phone] Mar, Generalized anxiety disorder F41.1 ; Major depressive disorder, recurrent episode, mild degree F33.0 and 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 [facility] [address] [id number] [address] [place] [id number] Mar, Skin lesion L98.9 [facility] [address] [id number] [address] [place] [id number] Mar, 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 [facility] [address] [id number] [address] [place] [id number] Mar, [facility] [address] [id number] [address] [place] [phone] Mar, [facility] [address] [id number] [address] [place] [id number] Feb, Major depressive disorder, r ecurrent episode, mild degree F33.0 ; Generalized anxiety disorder F41.1 and Excoriation, neurotic L98.1 [facility] [address] [id number] [address] [place] [id number] Feb, Generalized anxiety disorder F41.1 [facility] [address] [id number] [address] [place] [id number] Feb, 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 [facility] [address] [id number] [address] [place] [id number] Jan, [facility] [address] [place] [id number] [address] [place] [id number] Jan, Essential hypertension I10 ; Splenic artery aneurysm I72.8 ; Liver mass R16.0 ; Restrictive lung disease J98.4 ; Primary osteoarthritis involving multiple joints M15.0 ; Mixed hyperlipidemia E78.2 ; Bilateral carpal tunnel syndrome G56.03 ; Body mass index (bmi) 50-59.9 , adult Z68.43 and History of tobacco use Z87.891 [place] [address] [place] [id number] [address] [place] [id number] Jan, Major depressive disorder, r ecurrent episode, mild degree F33.0 and Generalized anxiety disorder F41.1 [facility] [address] [place] [id number] [place] [address] Jan, [facility] [address] [place] [id number] [address] [place] [id number] Jan, Generalized anxiety disorder F41.1 and Major depressive disorder, recurrent episode, mild degree F33.0 [facility] [place] [address] [place] [id number] [address] [place] [id number] Dec, 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 [facility] [address] [place] [id number] [address] [place] [id number] Dec, Generalized anxiety disorder F41.1 [place] [place] [address] [place] [id number] [address] [place] [phone] Dec, [facility] [address] [place] [id number] [address] [place] [id number] Dec, Major depressive disorder, r ecurrent episode, mild degree F33.0 and Generalized anxiety disorder F41.1 [place] [place] [address] [place] [id number] [address] [place] [id number] Dec, Generalized anxiety disorder F41.1 and Major depressive disorder, recurrent episode, mild degree F33.0 [place] [address] [place] [id number] [address] [place] [phone] November, Mild major depression F32.0 and Primary osteoarthritis involving multiple joints M15.0 [place] [address] [facility] [id number] [address] [place] [phone] November, Major depressive disorder, r ecurrent episode, mild degree F33.0 and Generalized anxiety disorder F41.1 [place] [address] [facility] [id number] [address] [place] [id number] November, 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 ; Essential hypertension I10 ; Prediabetes R73.09 ; Mixed hyperlipidemia E78.2 ; Chronic prescription benzodiazepine use Z79.899 ; Chronic prescription opiate use Z79.899 ; Tobacco use Z72.0 ; Bilateral carpal tunnel syndrome G56.03 and Body mass index (bmi) 50-59.9 , adult Z68.43 [facility] [place] [address] [place] [id number] [address] [place] [id number] November, 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 and Mild major depression F32.0 [facility] [address] [place] [id number] [address] [place] [address] Oct, [facility] [address] [place] [id number] [place] [address] Oct, 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 ; Essential hypertension I10 ; Prediabetes R73.09 ; Chronic prescription benzodiazepine use Z79.899 ; Chronic prescription opiate use Z79.899 ; Tobacco use Z72.0 ; Mixed hyperlipidemia E78.2 ; Bilateral carpal tunnel syndrome G56.03 ; Body mass index (bmi) 50-59.9 , adult Z68.43 and Encounter for immunization Z23 [place] [address] [facility] [id number] [address] [place] [id number] Oct, Major depressive disorder, r ecurrent episode, mild degree F33.0 and Generalized anxiety disorder F41.1 [place] [place] [address] [place] [id number] [address] [place] [phone] Oct, [facility] [address] [place] [id number] [place] [address] Oct, [facility] [address] [facility] [id number] [address] [place] [id number] Sep, Mild major depression F32.0 [facility] [address] [facility] [id number] [address] [place] [id number] Sep, [facility] [address] [facility] [id number] [address] [place] [id number] Sep, Mild major depression F32.0 and Generalized anxiety disorder F41.1 [facility] [address] [facility] [id number] [address] [place] [id number] Sep, Paresthesia of both hands R2 0.2 and Cervical radiculopathy M54.12 [facility] [address] [facility] [id number] [address] [place] [phone] Sep, [facility] [address] [place] [id number] [place] [address] Sep, [facility] [address] [facility] [id number] [address] [place] [address] Aug, Paresthesia of both hands R2 0.2 and Neck pain M54.2 [facility] [address] [facility] [id number] [address] [place] [phone] Aug, [facility] [address] [facility] [id number] [address] [place] [id number] Jul, Neck pain M54.2 and Paresthe eddie of both hands R20.2 [facility] [address] [facility] [id number] [address] [place] [id number] Jul, Proteinuria, unspecified typ e R80.9 [facility] [address] [facility] [id number] [address] [place] [id number] Jul, Proteinuria, unspecified typ e R80.9 [facility] [address] [facility] [id number] [address] [place] [id number] Jul, [facility] [address] [place] [id number] [address] [place] [id number] Jul, Other specified transient ce rebral ischemias G45.8 [place] [place] [address] [place] [id number] [address] [place] [id number] 12 Jun, 2016 Diastolic dysfunction I51.9 [place] [place] [address] [place] [id number] [address] [place] [id number] 08 Jun, 2016 Diastolic dysfunction I51.9 [facility] [address] [place] [id number] [place] [address] Jun, Major depressive disorder, s david episode, unspecified F32.9 and Anxiety disorder, unspecified F41.9 [place] [place] [address] [place] [id number] [place] [address] Jun, [place] [address] [address] Jun, [place] [address] [address] May, Moderate major depression F3 2.1 and Generalized anxiety disorder F41.1 [place] [address] [id number] 16 May, 2016 Major depressive disorder, s david episode, unspecified F32.9 and Anxiety disorder, unspecified F41.9 [place] [address] [address] 15 May, 2016 [place] [address] [place] [id number] [place] [address] 14 May, 2016 Liver enzyme elevation R74.8 [place] [place] [address] [id number] 14 May, 2016 Liver enzyme elevation R74.8 [place] [address] [place] [id number] [place] [phone] 10 May, 2016 Shortness of breath on exert ion R06.02 ; Essential hypertension I10 ; Mixed hyperlipidemia E78.2 and Tobacco use Z72.0 [facility] [address] [id number] [address] [place] [id number] May, [facility] [address] [id number] [address] [place] [id number] May, [facility] [address] [id number] [address] [place] [id number] Apr, Anxiety F41.9 and Depression F32.9 [facility] [address] [id number] [address] [place] [id number] Apr, [facility] [address] [id number] [address] [place] [id number] Apr, [facility] [address] [id number] [address] [place] [id number] Mar, Depression F32.9 and Anxiety F41.9 [facility] [address] [id number] [address] [place] [id number] Mar, Anxiety F41.9 and Depression F32.9 [facility] [address] [id number] [address] [place] [id number] Mar, Well woman exam (no gynecolo gical exam) Z00.00 [facility] [address] [id number] [address] [place] [id number] Mar, [facility] [address] [id number] [address] [place] [id number] Mar, [facility] [address] [id number] [address] [place] [id number] Feb, Dental caries K02.9 [facility] [address] [id number] [address] [place] [phone] Feb, [facility] [address] [id number] [address] [place] [phone] Feb, Anxiety F41.9 and Depression F32.9 [facility] [address] [id number] [address] [place] [id number] Feb, Dental examination Z01.20 [facility] [address] [id number] [address] [place] [phone] Feb, [facility] [address] [id number] [address] [place] [phone] Feb, [facility] [address] [id number] [address] [place] [phone] Feb, Anxiety F41.9 and Depression F32.9 [facility] [address] [id number] [address] [place] [phone] Jan, Severe episode of recurrent major depressive disorder, without psychotic features F33.2 and Anxiety disorder, unspecified F41.9 [facility] [address] [id number] [address] [place] [id number] Jan, [facility] [address] [id number] [address] [place] [phone] Dec, [facility] [address] [id number] [address] [place] [phone] Dec, Anxiety F41.9 and Depression F32.9 [facility] [address] [facility] [id number] [address] [place] [id number] Dec, Other specified transient ce rebral ischemias G45.8 and Nocturnal hypoxia G47.34 [facility] [address] [id number] [address] [place] [phone] Dec, [facility] [address] [id number] [address] [place] [phone] 17 Dec, 2015 Other specified transient ce rebral ischemias G45.8 [facility] [address] [facility] [id number] [address] [place] [phone] 16 Dec, 2015 Severe episode of recurrent major depressive disorder, without psychotic features F33.2 and Anxiety disorder, unspecified F41.9 [facility] [address] [id number] [address] [place] [id number] 13 Dec, 2015 [place] [id number] [place] [phone] 13 Dec, 2015 Anxiety F41.9 and Depression F32.9 [place] [address] [id number] 07 Dec, 2015 Anxiety F41.9 and Depression F32.9 [place] [address] [id number] Dec, [place] [address] [id number] November, Anxiety F41.9 and Depression F32.9 [place] [address] [address] November, Severe episode of recurrent major depressive disorder, without psychotic features F33.2 [place] [address] [address] November, Mixed hyperlipidemia E78.[address] [id number] November, Anxiety F41.9 and Depression F32.9 [place] [address] [address] November, Prediabetes R73.09 ; Essenti al hypertension I10 ; Anxiety F41.9 ; Depression F32.9 ; Gastroesophageal reflux disease, esophagitis presence not specified K21.9 ; Primary osteoarthritis involving multiple joints M15.0 ; History of renal cell cancer Z85.528 ; Postnasal drip R09.82 ; Allergic rhinitis, unspecified J30.9 and Tobacco use Z72.0 [place] [address] [place] [id number] [address] [place] [phone] Oct, Anxiety F41.9 and Depression F32.9 [place] [address] [id number] Oct, [place] [address] [place] [id number] [address] [place] [phone] Oct, [facility] [address] [address] 14 Sep, 2015 Splenic artery aneurysm I72. 8 [facility] [address] [address] 10 Sep, 2015 Depression F32.9 ; Anxiety F 41.9 ; Chronic prescription benzodiazepine use Z79.899 and Splenic artery aneurysm I72.8 [facility] [address] [id number] 10 Sep, 2015 Depression F32.9 and Anxiety F41.9 [facility] [address] [address] Sep, [facility] [address] [id number] 18 Aug, 2015 Dehydration E86.0 ; Diarrhea R19.7 ; Nausea R11.0 and Generalized abdominal pain R10.84 [facility] [address] [id number] Aug, [facility] [address] [id number] Jul, Depression F32.9 [facility] [address] [id number] Jul, [facility] [address] [id number] Jul, Anxiety F41.9 and Depression F32.9 [facility] [address] [id number] Jul, [facility] [address] [place] [id number] [place] [phone] Jun, Epigastric pain R10.13 [facility] [address] [id number] Jun, [facility] [address] [facility] [id number] [address] [place] [phone] Jun, [facility] [address] [facility] [id number] [address] [place] [phone] May, [facility] [address] [facility] [id number] [address] [place] [phone] May, [facility] [address] [id number] [address] [place] [phone] Apr, [facility] [address] [id number] [address] [place] [id number] Mar, Anxiety state, unspecified 3 00.00 ; Depression 311 ; Prediabetes 790.29 ; Generalized osteoarthrosis, involving multiple sites 715.09 and Hypertension 401.9 [facility] [address] [facility] [id number] [address] [place] [phone] Mar, [facility] [address] [id number] [address] [place] [phone] Feb, [facility] [address] [facility] [id number] [address] [place] [phone] Jan, [facility] [address] [facility] [id number] [address] [place] [phone] Jan, [facility] [address] [facility] [id number] [address] [place] [phone] Jan, Generalized osteoarthrosis, involving multiple sites 715.09 [facility] [address] [facility] [id number] [address] [place] [phone] 07 Jan, 2015 Hx of renal cell cancer V10. 52 [facility] [address] [facility] [id number] [address] [place] [phone] 30 Dec, 2014 Generalized osteoarthrosis, involving multiple sites 715.09 and Hx of renal cell cancer V10.52 [facility] [address] [facility] [id number] [address] [place] [phone] Dec, [facility] [address] [id number] [address] [place] [phone] Dec, [facility] [address] [id number] [address] [place] [phone] November, [facility] [address] [id number] [address] [place] [phone] Oct, [facility] [address] [id number] [address] [place] [phone] Oct, [facility] [address] [id number] [address] [place] [phone] Sep, [facility] [address] [id number] [address] [place] [phone] Sep, [facility] [address] [id number] [address] [place] [id number] Sep, [facility] [address] [id number] [address] [place] [phone] Sep, [facility] [address] [id number] [address] [place] [phone] Aug, [facility] [address] [id number] [address] [place] [phone] Aug, IMMUNIZATIONS No Known Immunizations SOCIAL HISTORY Never Assessed REASON FOR VISIT Lab (walk-in) PLAN OF CARE Activity Details Pending Test CMP VITAL SIGNS MEDICATIONS Unknown Medications RESULTS No Results PROCEDURES Procedure Date Ordered Result Body Site LAB NOT BILLED BY [facility] Jul 10, 2018 INSTRUCTIONS MEDICATIONS ADMINISTERED No [...]
--- OUTSIDE RECORDS SUMMARY | 2020-02-08 07:11 | XMS REPORT ---
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 Name Role Phone LALOJEZALBANIA Unavailable PROBLEMS Type Condition ICD9-CM Code ZUG66-WE Code Onset Dates Condition S tatus SNOMED Code Problem Mixed hyperlipidemia E78.2 Active 873294345 Problem Fatty liver K76.0 Active 54119623 7 Problem Obstructive sleep apnea G47.33 Active 40964869 Problem Allergic rhinitis, unspecified J30.9 Active 35813534 Problem Essential hypertension I10 Active 13385267 Problem History of renal cell cancer Z85.528 A ctive 980364380 Problem Prediabetes R73.09 Active 3873607 Problem Diastolic dysfunction I51.9 Active 3968047 Problem Body mass index (bmi) 50-59.9 , adult Z68.43 Active 030951972 Problem Paresthesia of both hands R20.2 Acti ve 286556616 Problem 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 Acti ve 185649187 Problem BMI 50.0-59.9, adult Z68.43 Active 748462882 Problem Restrictive lung disease J98.4 Activ e 10090604 Problem Splenic artery aneurysm I72.8 Active 39598414 Problem Liver mass R16.0 Active 969775266 Problem Generalized anxiety disorder F41.1 A ctive 43331616 Problem Major depressive disorder, recurrent episode, mild degree F33.0 Active 405195956 Problem Excoriation, neurotic L98.1 Active 65039107 Problem History of tobacco use Z87.891 Active 8963548173930 Problem Primary osteoarthritis involving multiple joints M 15.0 Active 274363422 Problem Isolated proteinuria without specific morphologic lesion R80.0 Active 03143601 Problem 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 Active 818783502 Problem Pulmonary emphysema, unspecified emphysema type J4 3.9 Active 93360562 Problem Chronic prescription opiate use Z79.899 Active 766652912 Problem Tobacco use Z72.0 Active 25807903 0 Problem Bilateral carpal tunnel syndrome G56.03 Active 97382282 Problem Chronic prescription benzodiazepine use Z79.899 Active 061751071 ALLERGIES No Information ENCOUNTERS Encounter Location Date Diagnosis [facility] [address] [facility] [id number] [address] [place] [id number] 13 Jun, 2018 [facility] [address] [facility] [id number] [address] [place] [address] May, [facility] [address] [facility] [id number] [address] [place] [id number] May, [facility] [address] [facility] [id number] [address] [place] [id number] 05 May, 2018 [facility] [address] [facility] [id number] [address] [place] [id number] 31 Apr, 2018 Generalized anxiety disorder F41.1 and Major depressive disorder, recurrent episode, mild degree F33.0 [facility] [address] [place] [id number] [address] [place] [id number] 15 Apr, 2018 BMI 50.0-59.9, adult Z68.43 and Encounter for weight loss counseling Z71.3 [facility] [address] [facility] [id number] [address] [place] [id number] 03 Apr, 2018 [facility] [address] [facility] [id number] [address] [place] [address] 20 Mar, 2018 Generalized anxiety disorder F41.1 and Major depressive disorder, recurrent episode, mild degree F33.0 [facility] [address] [facility] [id number] [address] [place] [id number] 18 Mar, 2018 [facility] [address] [facility] [id number] [address] [place] [id number] 12 Mar, 2018 Generalized anxiety disorder F41.1 [facility] [address] [facility] [id number] [address] [place] [id number] 10 Mar, 2018 [facility] [address] [place] [id number] [address] [place] [id number] Feb, Generalized anxiety disorder F41.1 ; Major depressive disorder, recurrent episode, mild degree F33.0 and 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 [facility] [address] [id number] [address] [place] [id number] Feb, Generalized anxiety disorder F41.1 and Major depressive disorder, recurrent episode, mild degree F33.0 [facility] [address] [id number] [address] [place] [id number] Feb, [facility] [address] [id number] [address] [place] [id number] Feb, Restrictive lung disease J98 .4 ; Pulmonary emphysema, unspecified emphysema type J43.9 and Body mass index (bmi) 50-59.9 , adult Z68.43 [facility] [address] [id number] [address] [place] [id number] Feb, Generalized anxiety disorder F41.1 ; Major depressive disorder, recurrent episode, mild degree F33.0 and 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 [facility] [address] [id number] [address] [place] [id number] Feb, [facility] [address] [id number] [address] [place] [id number] Jan, [facility] [address] [id number] [address] [place] [id number] Jan, Pulmonary emphysema, unspeci fied emphysema type J43.9 [facility] [address] [id number] [address] [place] [id number] Jan, Dental examination Z01.20 an d Dental caries K02.9 [facility] [address] [id number] [address] [place] [id number] Jan, Generalized anxiety disorder F41.1 and Major depressive disorder, recurrent episode, mild degree F33.0 [facility] [address] [id number] [address] [place] [address] Jan, [facility] [address] [place] [id number] [address] [place] [address] Jan, Generalized anxiety disorder F41.1 [facility] [address] [place] [id number] [address] [place] [address] Jan, Oral abscess K12.2 and BMI 5 0.0-59.9, adult Z68.43 [facility] [address] [address] Dec, BMI 50.0-59.9, adult Z68.43 and Weight loss counseling, encounter for Z71.3 [place] [address] [address] Dec, [facility] [address] [address] Dec, [facility] [address] [address] November, [facility] [address] [address] November, [facility] [address] [address] November, Pulmonary emphysema, unspeci fied emphysema type J43.9 ; Restrictive lung disease J98.4 ; BMI 50.0-59.9, adult Z68.43 ; History of renal cell cancer Z85.528 ; Essential hypertension I10 ; Mixed hyperlipidemia E78.2 and Fatty liver K76.0 [facility] [address] [place] [id number] [address] [place] [address] November, Generalized anxiety disorder F41.1 [place] [address] [address] November, Generalized anxiety disorder F41.1 and Major depressive disorder, recurrent episode, mild degree F33.0 [place] [address] [address] November, Generalized anxiety disorder F41.1 ; Major depressive disorder, recurrent episode, mild degree F33.0 and 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 [facility] [address] [address] November, [facility] [address] [place] [id number] [address] [place] [address] Oct, Generalized anxiety disorder F41.1 [facility] [address] [place] [id number] [address] [place] [address] Oct, [facility] [address] [place] [id number] [address] [place] [id number] Oct, Influenza-like illness R69 [facility] [address] [place] [id number] [address] [place] [address] Sep, Influenza-like illness R69 [facility] [address] [address] Sep, Generalized anxiety disorder F41.1 [facility] [address] [place] [id number] [address] [place] [address] Sep, [facility] [address] [place] [id number] [address] [place] [id number] Aug, [facility] [address] [place] [id number] [address] [place] [id number] Aug, [facility] [address] [place] [address] Aug, Generalized anxiety disorder F41.1 [facility] [address] [facility] [id number] [address] [place] [id number] Aug, Influenza-like illness R69 a nd BMI 50.0-59.9, adult Z68.43 [facility] [address] [facility] [id number] [address] [place] [address] Jul, Fatty liver K76.0 ; Restrict jean-paul lung disease J98.4 ; Diastolic dysfunction I51.9 ; Body mass index (bmi) 50-59.9 , adult Z68.43 and Chronic prescription opiate use Z79.899 [facility] [address] [facility] [id number] [address] [place] [address] Jul, Generalized anxiety disorder F41.1 [facility] [address] [facility] [id number] [address] [place] [address] Jul, Generalized anxiety disorder F41.1 [facility] [address] [facility] [id number] [address] [place] [address] Jul, 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 [facility] [address] [facility] [id number] [address] [place] [address] Jun, Generalized anxiety disorder F41.1 [place] [address] [place] [id number] [address] [place] [address] Jun, [facility] [address] [place] [id number] [address] [place] [address] Jun, Mixed hyperlipidemia E78.2 [facility] [address] [facility] [id number] [address] [place] [address] Jun, Generalized anxiety disorder F41.1 [facility] [address] [facility] [id number] [address] [place] [address] Jun, Generalized anxiety disorder F41.1 ; Major depressive disorder, recurrent episode, mild degree F33.0 and 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 [facility] [address] [facility] [id number] [address] [place] [id number] May, [facility] [address] [facility] [id number] [address] [place] [address] May, Generalized anxiety disorder F41.1 [facility] [address] [facility] [id number] [address] [place] [id number] May, Generalized anxiety disorder F41.1 [facility] [address] [facility] [id number] [address] [place] [address] May, 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 [facility] [address] [id number] [address] [place] [id number] 09 Apr, 2017 Major depressive disorder, r ecurrent episode, mild degree F33.0 ; Generalized anxiety disorder F41.1 and Excoriation, neurotic L98.1 [facility] [address] [id number] [address] [place] [address] Apr, 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 [facility] [address] [id number] [address] [place] [address] Apr, Essential hypertension I10 a nd Mixed hyperlipidemia E78.2 [facility] [address] [id number] [address] [place] [address] Apr, Generalized anxiety disorder F41.1 ; Major depressive disorder, recurrent episode, mild degree F33.0 and 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 [facility] [address] [id number] [address] [place] [id number] 06 Mar, 2017 Generalized anxiety disorder F41.1 ; Major depressive disorder, recurrent episode, mild degree F33.0 and 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 [facility] [address] [id number] [address] [place] [id number] 05 Mar, 2017 Skin lesion L98.9 [facility] [address] [id number] [address] [place] [address] Mar, 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 [facility] [address] [id number] [address] [place] [id number] Mar, [facility] [address] [id number] [address] [place] [id number] Mar, [facility] [address] [id number] [address] [place] [address] Feb, Major depressive disorder, r ecurrent episode, mild degree F33.0 ; Generalized anxiety disorder F41.1 and Excoriation, neurotic L98.1 [facility] [address] [facility] [id number] [address] [place] [address] Feb, Generalized anxiety disorder F41.1 [facility] [address] [facility] [id number] [address] [place] [id number] Feb, 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 [facility] [address] [place] [id number] [address] [place] [address] Jan, [facility] [address] [facility] [id number] [address] [place] [address] Jan, Essential hypertension I10 ; Splenic artery aneurysm I72.8 ; Liver mass R16.0 ; Restrictive lung disease J98.4 ; Primary osteoarthritis involving multiple joints M15.0 ; Mixed hyperlipidemia E78.2 ; Bilateral carpal tunnel syndrome G56.03 ; Body mass index (bmi) 50-59.9 , adult Z68.43 and History of tobacco use Z87.891 [place] [address] [place] [id number] [address] [place] [address] Jan, Major depressive disorder, r ecurrent episode, mild degree F33.0 and Generalized anxiety disorder F41.1 [place] [address] [place] [id number] [address] [place] [address] Jan, [place] [address] [place] [id number] [address] [place] [address] Jan, Generalized anxiety disorder F41.1 and Major depressive disorder, recurrent episode, mild degree F33.0 [facility] [address] [facility] [id number] [address] [place] [address] Dec, 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 [facility] [address] [facility] [id number] [address] [place] [address] Dec, Generalized anxiety disorder F41.1 [facility] [address] [facility] [id number] [address] [place] [address] Dec, [facility] [address] [place] [address] Dec, Major depressive disorder, r ecurrent episode, mild degree F33.0 and Generalized anxiety disorder F41.1 [place] [address] [facility] [id number] [address] [place] [address] Dec, Generalized anxiety disorder F41.1 and Major depressive disorder, recurrent episode, mild degree F33.0 [place] [address] [place] [id number] [address] [place] [address] November, Mild major depression F32.0 and Primary osteoarthritis involving multiple joints M15.0 [place] [address] [facility] [id number] [address] [place] [address] November, Major depressive disorder, r ecurrent episode, mild degree F33.0 and Generalized anxiety disorder F41.1 [place] [address] [place] [id number] [address] [place] [address] November, 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 ; Essential hypertension I10 ; Prediabetes R73.09 ; Mixed hyperlipidemia E78.2 ; Chronic prescription benzodiazepine use Z79.899 ; Chronic prescription opiate use Z79.899 ; Tobacco use Z72.0 ; Bilateral carpal tunnel syndrome G56.03 and Body mass index (bmi) 50-59.9 , adult Z68.43 [place] [address] [place] [id number] [address] [place] [address] November, 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 and Mild major depression F32.0 [place] [address] [place] [id number] [address] [place] [id number] Oct, [place] [address] [place] [id number] [place] [address] Oct, 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 ; Essential hypertension I10 ; Prediabetes R73.09 ; Chronic prescription benzodiazepine use Z79.899 ; Chronic prescription opiate use Z79.899 ; Tobacco use Z72.0 ; Mixed hyperlipidemia E78.2 ; Bilateral carpal tunnel syndrome G56.03 ; Body mass index (bmi) 50-59.9 , adult Z68.43 and Encounter for immunization Z23 [facility] [address] [facility] [id number] [address] [place] [id number] Oct, Major depressive disorder, r ecurrent episode, mild degree F33.0 and Generalized anxiety disorder F41.1 [facility] [address] [id number] [address] [place] [address] Oct, [facility] [address] [id number] [address] [place] [address] Oct, [facility] [address] [id number] [address] [place] [address] Sep, Mild major depression F32.0 [facility] [address] [id number] [address] [place] [id number] Sep, [facility] [address] [facility] [id number] [address] [place] [address] Sep, Mild major depression F32.0 and Generalized anxiety disorder F41.1 [facility] [address] [id number] [address] [place] [address] Sep, Paresthesia of both hands R2 0.2 and Cervical radiculopathy M54.12 [facility] [address] [id number] [address] [place] [address] Sep, [facility] [address] [id number] [address] [place] [address] Sep, [facility] [address] [id number] [address] [place] [id number] Aug, Paresthesia of both hands R2 0.2 and Neck pain M54.2 [facility] [address] [facility] [id number] [address] [place] [address] Aug, [facility] [address] [facility] [id number] [address] [place] [address] Jul, Neck pain M54.2 and Paresthe eddie of both hands R20.2 [place] [address] [facility] [id number] [address] [place] [address] Jul, Proteinuria, unspecified typ e R80.9 [facility] [address] [facility] [id number] [address] [place] [address] Jul, Proteinuria, unspecified typ e R80.9 [place] [address] [facility] [id number] [address] [place] [address] Jul, [place] [address] [facility] [id number] [address] [place] [address] Jul, Other specified transient ce rebral ischemias G45.8 [place] [address] [facility] [id number] [address] [place] [address] Jun, Diastolic dysfunction I51.9 [place] [address] [place] [id number] [address] [place] [address] Jun, Diastolic dysfunction I51.9 [place] [address] [facility] [id number] [address] [place] [id number] Jun, Major depressive disorder, s david episode, unspecified F32.9 and Anxiety disorder, unspecified F41.9 [place] [address] [place] [id number] [address] [place] [address] Jun, [place] [address] [place] [id number] [address] [place] [address] Jun, [place] [address] [facility] [id number] [address] [place] [address] May, Moderate major depression F3 2.1 and Generalized anxiety disorder F41.1 [place] [address] [facility] [id number] [address] [place] [address] May, Major depressive disorder, s david episode, unspecified F32.9 and Anxiety disorder, unspecified F41.9 [place] [address] [place] [id number] [address] [place] [address] May, [facility] [address] [facility] [id number] [address] [place] [address] 14 May, 2016 Liver enzyme elevation R74.8 [facility] [address] [facility] [id number] [address] [place] [id number] 14 May, 2016 Liver enzyme elevation R74.8 [facility] [address] [facility] [id number] [address] [place] [address] 10 May, 2016 Shortness of breath on exert ion R06.02 ; Essential hypertension I10 ; Mixed hyperlipidemia E78.2 and Tobacco use Z72.0 [facility] [address] [facility] [id number] [address] [place] [id number] 03 May, 2016 [facility] [address] [place] [id number] [address] [place] [id number] 02 May, 2016 [facility] [address] [place] [id number] [address] [place] [id number] Apr, Anxiety F41.9 and Depression F32.9 [facility] [address] [place] [id number] [address] [place] [id number] Apr, [facility] [address] [place] [id number] [address] [place] [id number] Apr, [facility] [address] [place] [id number] [address] [place] [id number] 22 Mar, 2016 Depression F32.9 and Anxiety F41.9 [facility] [address] [facility] [id number] [address] [place] [id number] 08 Mar, 2016 Anxiety F41.9 and Depression F32.9 [facility] [address] [facility] [id number] [address] [place] [id number] 06 Mar, 2016 Well woman exam (no gynecolo gical exam) Z00.00 [facility] [address] [facility] [id number] [address] [place] [id number] 02 Mar, 2016 [facility] [address] [place] [id number] [address] [place] [address] [id number] Mar, [facility] [address] [id number] [address] [place] [phone] Feb, Dental caries K02.9 [facility] [address] [id number] [address] [place] [phone] Feb, [facility] [address] [id number] [address] [place] [id number] Feb, Anxiety F41.9 and Depression F32.9 [facility] [address] [id number] [address] [place] [address] [id number] Feb, Dental examination Z01.20 [facility] [address] [id number] [address] [place] [phone] Feb, [facility] [address] [id number] [address] [place] [id number] Feb, [facility] [address] [id number] [address] [place] [id number] Feb, Anxiety F41.9 and Depression F32.9 [facility] [address] [id number] [address] [place] [phone] Jan, Severe episode of recurrent major depressive disorder, without psychotic features F33.2 and Anxiety disorder, unspecified F41.9 [facility] [address] [id number] [address] [place] [phone] Jan, [facility] [address] [id number] [address] [place] [id number] Dec, [facility] [address] [id number] [address] [place] [id number] Dec, Anxiety F41.9 and Depression F32.9 [facility] [address] [facility] [id number] [address] [place] [phone] Dec, Other specified transient ce rebral ischemias G45.8 and Nocturnal hypoxia G47.34 [facility] [address] [id number] [address] [place] [id number] 18 Dec, 2015 [facility] [address] [facility] [id number] [address] [place] [id number] 17 Dec, 2015 Other specified transient ce rebral ischemias G45.8 [facility] [address] [facility] [id number] [address] [place] [id number] 16 Dec, 2015 Severe episode of recurrent major depressive disorder, without psychotic features F33.2 and Anxiety disorder, unspecified F41.9 [place] [address] [facility] [id number] [address] [place] [id number] 13 Dec, 2015 [place] [address] [facility] [id number] [address] [place] [id number] 13 Dec, 2015 Anxiety F41.9 and Depression F32.9 [place] [address] [facility] [id number] [address] [place] [id number] 07 Dec, 2015 Anxiety F41.9 and Depression F32.9 [place] [address] [facility] [id number] [address] [place] [id number] Dec, [place] [address] [facility] [id number] [address] [place] [id number] November, Anxiety F41.9 and Depression F32.9 [place] [address] [facility] [id number] [address] [place] [id number] November, Severe episode of recurrent major depressive disorder, without psychotic features F33.2 [place] [address] [facility] [id number] [address] [place] [id number] November, Mixed hyperlipidemia E78.2 [place] [address] [facility] [id number] [address] [place] [phone] November, Anxiety F41.9 and Depression F32.9 [place] [address] [facility] [id number] [address] [place] [phone] 05 Nov, 2015 Prediabetes R73.09 ; Essenti al hypertension I10 ; Anxiety F41.9 ; Depression F32.9 ; Gastroesophageal reflux disease, esophagitis presence not specified K21.9 ; Primary osteoarthritis involving multiple joints M15.0 ; History of renal cell cancer Z85.528 ; Postnasal drip R09.82 ; Allergic rhinitis, unspecified J30.9 and Tobacco use Z72.0 [facility] [address] [id number] 11 Oct, 2015 Anxiety F41.9 and Depression F32.9 [place] [address] [id number] 07 Oct, 2015 [place] [address] [id number] Oct, [place] [address] [id number] 14 Sep, 2015 Splenic artery aneurysm I72. 8 [place] [address] [id number] 10 Sep, 2015 Depression F32.9 ; Anxiety F 41.9 ; Chronic prescription benzodiazepine use Z79.899 and Splenic artery aneurysm I72.8 [place] [address] [id number] Sep, Depression F32.9 and Anxiety F41.9 [place] [address] [id number] Sep, [place] [address] [id number] 18 Aug, 2015 Dehydration E86.0 ; Diarrhea R19.7 ; Nausea R11.0 and Generalized abdominal pain R10.84 [place] [address] [id number] Aug, [place] [address] [place] [id number] [place] [phone] Jul, Depression F32.9 [place] [address] [id number] Jul, [facility] [address] [facility] [id number] [address] [place] [phone] Jul, Anxiety F41.9 and Depression F32.9 [facility] [address] [facility] [id number] [address] [place] [phone] Jul, [facility] [address] [facility] [id number] [address] [place] [id number] Jun, Epigastric pain R10.13 [facility] [address] [id number] [address] [place] [id number] Jun, [facility] [address] [facility] [id number] [address] [place] [id number] Jun, [facility] [address] [facility] [id number] [address] [place] [id number] May, [facility] [address] [facility] [id number] [address] [place] [phone] May, [facility] [address] [facility] [id number] [address] [place] [id number] Apr, [facility] [address] [facility] [id number] [address] [place] [id number] Mar, Anxiety state, unspecified 3 00.00 ; Depression 311 ; Prediabetes 790.29 ; Generalized osteoarthrosis, involving multiple sites 715.09 and Hypertension 401.9 [facility] [address] [facility] [id number] [address] [place] [phone] Mar, [facility] [address] [facility] [id number] [address] [place] [phone] Feb, [facility] [address] [facility] [id number] [address] [place] [id number] Jan, [facility] [address] [facility] [id number] [address] [place] [id number] Jan, [facility] [address] [facility] [id number] [address] [place] [id number] Jan, Generalized osteoarthrosis, involving multiple sites 715.09 [facility] [address] [id number] [address] [place] [id number] 07 Jan, 2015 Hx of renal cell cancer V10. 52 [facility] [address] [id number] [address] [place] [id number] 30 Dec, 2014 Generalized osteoarthrosis, involving multiple sites 715.09 and Hx of renal cell cancer V10.52 [facility] [address] [id number] [address] [place] [id number] 24 Dec, 2014 [facility] [address] [id number] [address] [place] [id number] Dec, [facility] [address] [id number] [address] [place] [phone] November, [facility] [address] [id number] [address] [place] [phone] Oct, [facility] [address] [id number] [address] [place] [phone] Oct, [facility] [address] [id number] [address] [place] [phone] Sep, [facility] [address] [id number] [address] [place] [phone] Sep, [facility] [address] [id number] [address] [place] [phone] Sep, [facility] [address] [id number] [address] [place] [id number] Sep, [facility] [address] [id number] [address] [place] [phone] Aug, [facility] [address] [id number] [address] [place] [phone] Aug, IMMUNIZATIONS No Known Immunizations SOCIAL HISTORY Never Assessed REASON FOR VISIT Controlled Medication Refill PLAN OF CARE VITAL SIGNS MEDICATIONS Medication Instructions Dosage Frequency Start Date End Date Duration S tatus Hydrocodone-Acetaminophen 5-325 MG Orally 2 times a day as n eeded for pain take 1 tablet May, 28 Active RESULTS No Results PROCEDURES No [...]
--- OUTSIDE RECORDS SUMMARY | 2020-02-08 07:11 | XMS REPORT ---
Author Author Emilee MAY Organization [facility] [place] Address [address] [place] [address] Care Team Providers Care Banquet Captain Name Role Phone LALOJEZALBANIA Unavailable PROBLEMS Type Condition ICD9-CM Code JJC74-FX Code Onset Dates Condition S tatus SNOMED Code Problem Mixed hyperlipidemia E78.2 Active 261373787 Problem Fatty liver K76.0 Active 70206516 7 Problem Obstructive sleep apnea G47.33 Active 64731029 Problem Essential hypertension I10 Active 37489484 Problem History of renal cell cancer Z85.528 A ctive 175754607 Problem Prediabetes R73.09 Active 7012411 Problem Diastolic dysfunction I51.9 Active 1441530 Problem Liver mass R16.0 Active 433149336 Problem Paresthesia of both hands R20.2 Acti ve 716054940 Problem Major depressive disorder, recurrent episode, mild degree F33.0 Active 896666634 Problem Body mass index (bmi) 50-59.9 , adult Z68.43 Active 411347864 Problem Decreased GFR R94.4 Active 548110 04 Problem 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 Acti ve 950919288 Problem 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 Active 845440887 Problem Restrictive lung disease J98.4 Activ e 96855842 Problem Splenic artery aneurysm I72.8 Active 21597179 Problem History of tobacco use Z87.891 Active 6783135129765 Problem Generalized anxiety disorder F41.1 A ctive 86607208 Problem BMI 50.0-59.9, adult Z68.43 Active 618670626 Problem Excoriation, neurotic L98.1 Active 83708753 Problem Isolated proteinuria without specific morphologic lesion R80.0 Active 56589518 Problem Bilateral carpal tunnel syndrome G56.03 Active 68371045 Problem Pulmonary emphysema, unspecified emphysema type J4 3.9 Active 91247001 Problem Primary osteoarthritis involving multiple joints M 15.0 Active 789901831 Problem Tobacco use Z72.0 Active 81419395 0 Problem Allergic rhinitis, unspecified J30.9 Active 50378380 Problem Chronic prescription benzodiazepine use Z79.899 Active 225739493 Problem Chronic prescription opiate use Z79.899 Active 856661368 ALLERGIES No Known Allergies ENCOUNTERS Encounter Location Date Diagnosis [place] [id number] [facility] [id number] [address] [place] [phone] 07 Aug, 2018 [place] [address] [place] [id number] [address] [place] [id number] 13 Jun, 2018 [place] [address] [place] [id number] [address] [place] [phone] 20 May, 2018 BMI 50.0-59.9, adult Z68.43 ; Splenic artery aneurysm I72.8 ; Decreased GFR R94.4 and Encounter for weight management Z76.89 [place] [address] [place] [id number] [address] [place] [id number] 19 May, 2018 Decreased GFR R94.4 [place] [address] [place] [id number] [address] [place] [id number] 16 May, 2018 Mixed hyperlipidemia E78.2 ; Fatty liver K76.0 and Essential hypertension I10 [place] [address] [place] [id number] [address] [place] [id number] 07 May, 2018 Generalized anxiety disorder F41.1 ; Major depressive disorder, recurrent episode, mild degree F33.0 ; 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 and BMI 50.0-59.9, adult Z68.43 [place] [address] [place] [id number] [address] [place] [phone] May, [place] [address] [place] [id number] [place] [phone] Apr, Generalized anxiety disorder F41.1 and Major depressive disorder, recurrent episode, mild degree F33.0 [place] [address] [place] [id number] [address] [place] [phone] Apr, BMI 50.0-59.9, adult Z68.43 and Encounter for weight loss counseling Z71.3 [facility] [place] [address] [id number] [address] [place] [phone] 03 Apr, 2018 [facility] [place] [address] [id number] [address] [place] [id number] 20 Mar, 2018 Generalized anxiety disorder F41.1 and Major depressive disorder, recurrent episode, mild degree F33.0 [facility] [place] [address] [id number] [address] [place] [id number] 18 Mar, 2018 [facility] [place] [address] [id number] [address] [place] [phone] 12 Mar, 2018 Generalized anxiety disorder F41.1 [facility] [place] [address] [id number] [address] [place] [phone] Mar, [facility] [place] [address] [id number] [address] [place] [phone] 14 Feb, 2018 Generalized anxiety disorder F41.1 ; Major depressive disorder, recurrent episode, mild degree F33.0 and 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 [facility] [place] [address] [id number] [address] [place] [id number] 13 Feb, 2018 Generalized anxiety disorder F41.1 and Major depressive disorder, recurrent episode, mild degree F33.0 [facility] [place] [address] [id number] [address] [place] [id number] 10 Feb, 2018 [facility] [place] [address] [id number] [address] [place] [id number] 10 Feb, 2018 Restrictive lung disease J98 .4 ; Pulmonary emphysema, unspecified emphysema type J43.9 and Body mass index (bmi) 50-59.9 , adult Z68.43 [facility] [place] [address] [id number] [address] [place] [id number] 08 Feb, 2018 Generalized anxiety disorder F41.1 ; Major depressive disorder, recurrent episode, mild degree F33.0 and 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 [place] [address] [id number] [address] [place] [phone] Feb, [facility] [place] [address] [facility] [id number] [address] [place] [phone] Jan, [facility] [place] [address] [facility] [id number] [address] [place] [phone] Jan, Pulmonary emphysema, unspeci fied emphysema type J43.9 [facility] [address] [id number] [address] [place] [id number] Jan, Dental examination Z01.20 an d Dental caries K02.9 [facility] [place] [address] [facility] [id number] [address] [place] [phone] Jan, Generalized anxiety disorder F41.1 and Major depressive disorder, recurrent episode, mild degree F33.0 [facility] [place] [address] [facility] [id number] [address] [place] [phone] Jan, [facility] [place] [address] [place] [id number] [address] [place] [phone] Jan, Generalized anxiety disorder F41.1 [facility] [address] [facility] [id number] [address] [place] [phone] Jan, Oral abscess K12.2 and BMI 5 0.0-59.9, adult Z68.43 [facility] [place] [address] [facility] [id number] [address] [place] [phone] Dec, BMI 50.0-59.9, adult Z68.43 and Weight loss counseling, encounter for Z71.3 [facility] [place] [address] [facility] [id number] [address] [place] [phone] Dec, [facility] [place] [address] [facility] [id number] [address] [place] [id number] Dec, [facility] [place] [address] [facility] [id number] [address] [place] [phone] November, [facility] [place] [address] [facility] [id number] [address] [place] [phone] November, [place] [address] [place] [id number] [address] [place] [id number] November, Pulmonary emphysema, unspeci fied emphysema type J43.9 ; Restrictive lung disease J98.4 ; BMI 50.0-59.9, adult Z68.43 ; History of renal cell cancer Z85.528 ; Essential hypertension I10 ; Mixed hyperlipidemia E78.2 and Fatty liver K76.0 [place] [address] [place] [id number] [address] [place] [phone] November, Generalized anxiety disorder F41.1 [place] [address] [place] [id number] [address] [place] [phone] November, Generalized anxiety disorder F41.1 and Major depressive disorder, recurrent episode, mild degree F33.0 [place] [address] [place] [id number] [place] [phone] November, Generalized anxiety disorder F41.1 ; Major depressive disorder, recurrent episode, mild degree F33.0 and 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 [place] [address] [place] [id number] [address] [place] [phone] November, [place] [address] [place] [id number] [address] [place] [phone] Oct, Generalized anxiety disorder F41.1 [place] [address] [place] [id number] [address] [place] [phone] Oct, [place] [address] [place] [id number] [address] [place] [phone] Oct, Influenza-like illness R69 [place] [address] [place] [id number] [address] [place] [phone] Sep, Influenza-like illness R69 [place] [address] [place] [id number] [address] [place] [id number] Sep, Generalized anxiety disorder F41.1 [place] [address] [place] [id number] [address] [place] [id number] Sep, [facility] [place] [address] [phone] Aug, [facility] [place] [address] [id number] Aug, [facility] [place] [address] [address] Aug, Generalized anxiety disorder F41.1 [facility] [address] [id number] Aug, Influenza-like illness R69 a nd BMI 50.0-59.9, adult Z68.43 [facility] [place] [address] [address] Jul, Fatty liver K76.0 ; Restrict jean-paul lung disease J98.4 ; Diastolic dysfunction I51.9 ; Body mass index (bmi) 50-59.9 , adult Z68.43 and Chronic prescription opiate use Z79.899 [facility] [place] [address] [id number] Jul, Generalized anxiety disorder F41.1 [facility] [place] [address] [id number] Jul, Generalized anxiety disorder F41.1 [facility] [place] [address] [id number] Jul, 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 [facility] [place] [address] [place] [id number] [address] [place] [phone] Jun, Generalized anxiety disorder F41.1 [facility] [place] [address] [id number] Jun, [facility] [place] [address] [id number] Jun, Mixed hyperlipidemia E78.2 [facility] [place] [address] [address] Jun, Generalized anxiety disorder F41.1 [facility] [place] [address] [id number] [address] [place] [id number] Jun, Generalized anxiety disorder F41.1 ; Major depressive disorder, recurrent episode, mild degree F33.0 and 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 [facility] [place] [address] [id number] [address] [place] [id number] May, [facility] [place] [address] [id number] [address] [place] [phone] May, Generalized anxiety disorder F41.1 [place] [address] [id number] [address] [place] [phone] May, Generalized anxiety disorder F41.1 [place] [address] [id number] [address] [place] [phone] May, 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 [facility] [place] [address] [id number] [address] [place] [phone] Apr, Major depressive disorder, r ecurrent episode, mild degree F33.0 ; Generalized anxiety disorder F41.1 and Excoriation, neurotic L98.1 [place] [address] [id number] [address] [place] [phone] Apr, 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 [facility] [place] [address] [id number] [address] [place] [phone] Apr, Essential hypertension I10 a nd Mixed hyperlipidemia E78.2 [facility] [place] [address] [id number] [address] [place] [id number] Apr, Generalized anxiety disorder F41.1 ; Major depressive disorder, recurrent episode, mild degree F33.0 and 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 [facility] [place] [address] [id number] [address] [place] [phone] Mar, Generalized anxiety disorder F41.1 ; Major depressive disorder, recurrent episode, mild degree F33.0 and 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 [facility] [place] [address] [id number] [address] [place] [phone] Mar, Skin lesion L98.9 [facility] [place] [address] [id number] [address] [place] [phone] Mar, 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 [facility] [place] [address] [id number] [address] [place] [phone] Mar, [facility] [place] [address] [id number] [address] [place] [phone] Mar, [facility] [place] [address] [id number] [address] [place] [phone] Feb, Major depressive disorder, r ecurrent episode, mild degree F33.0 ; Generalized anxiety disorder F41.1 and Excoriation, neurotic L98.1 [facility] [place] [address] [id number] [address] [place] [phone] Feb, Generalized anxiety disorder F41.1 [facility] [place] [address] [id number] [address] [place] [phone] Feb, 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 [facility] [place] [address] [id number] [address] [place] [phone] Jan, [facility] [place] [address] [id number] [address] [place] [phone] Jan, Essential hypertension I10 ; Splenic artery aneurysm I72.8 ; Liver mass R16.0 ; Restrictive lung disease J98.4 ; Primary osteoarthritis involving multiple joints M15.0 ; Mixed hyperlipidemia E78.2 ; Bilateral carpal tunnel syndrome G56.03 ; Body mass index (bmi) 50-59.9 , adult Z68.43 and History of tobacco use Z87.891 [facility] [place] [address] [id number] [address] [place] [id number] Jan, Major depressive disorder, r ecurrent episode, mild degree F33.0 and Generalized anxiety disorder F41.1 [facility] [place] [address] [id number] [address] [place] [phone] Jan, [facility] [place] [address] [id number] [address] [place] [phone] Jan, Generalized anxiety disorder F41.1 and Major depressive disorder, recurrent episode, mild degree F33.0 [facility] [place] [address] [id number] [address] [place] [phone] Dec, 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 [facility] [place] [address] [id number] [address] [place] [phone] Dec, Generalized anxiety disorder F41.1 [facility] [place] [address] [id number] [address] [place] [phone] Dec, [facility] [place] [address] [id number] [address] [place] [phone] Dec, Major depressive disorder, r ecurrent episode, mild degree F33.0 and Generalized anxiety disorder F41.1 [facility] [place] [address] [id number] [address] [place] [phone] Dec, Generalized anxiety disorder F41.1 and Major depressive disorder, recurrent episode, mild degree F33.0 [facility] [place] [address] [id number] [address] [place] [phone] November, Mild major depression F32.0 and Primary osteoarthritis involving multiple joints M15.0 [facility] [place] [address] [id number] [address] [place] [id number] November, Major depressive disorder, r ecurrent episode, mild degree F33.0 and Generalized anxiety disorder F41.1 [facility] [place] [address] [id number] [address] [place] [phone] November, 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 ; Essential hypertension I10 ; Prediabetes R73.09 ; Mixed hyperlipidemia E78.2 ; Chronic prescription benzodiazepine use Z79.899 ; Chronic prescription opiate use Z79.899 ; Tobacco use Z72.0 ; Bilateral carpal tunnel syndrome G56.03 and Body mass index (bmi) 50-59.9 , adult Z68.43 [place] [address] [place] [id number] [address] [place] [id number] November, 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 and Mild major depression F32.0 [place] [id number] [place] [address] Oct, [place] [address] [phone] Oct, 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 ; Essential hypertension I10 ; Prediabetes R73.09 ; Chronic prescription benzodiazepine use Z79.899 ; Chronic prescription opiate use Z79.899 ; Tobacco use Z72.0 ; Mixed hyperlipidemia E78.2 ; Bilateral carpal tunnel syndrome G56.03 ; Body mass index (bmi) 50-59.9 , adult Z68.43 and Encounter for immunization Z23 [place] [address] [address] Oct, Major depressive disorder, r ecurrent episode, mild degree F33.0 and Generalized anxiety disorder F41.1 [place] [address] [place] [id number] [address] [place] [id number] Oct, [place] [id number] [place] [phone] Oct, [place] [address] [place] [id number] [address] [place] [phone] Sep, Mild major depression F32.0 [place] [address] [facility] [id number] [address] [place] [phone] Sep, [place] [address] [place] [id number] [place] [phone] Sep, Mild major depression F32.0 and Generalized anxiety disorder F41.1 [place] [address] [place] [id number] [place] [address] Sep, Paresthesia of both hands R2 0.2 and Cervical radiculopathy M54.12 [facility] [place] [address] [facility] [id number] [address] [place] [phone] Sep, [facility] [place] [address] [facility] [id number] [address] [place] [phone] Sep, [facility] [place] [address] [facility] [id number] [place] [phone] Aug, Paresthesia of both hands R2 0.2 and Neck pain M54.2 [facility] [place] [address] [facility] [id number] [address] [place] [id number] Aug, [facility] [place] [address] [facility] [id number] [address] [place] [phone] Jul, Neck pain M54.2 and Paresthe eddie of both hands R20.2 [facility] [place] [address] [place] [id number] [address] [place] [phone] Jul, Proteinuria, unspecified typ e R80.9 [place] [address] [place] [id number] [place] [phone] Jul, Proteinuria, unspecified typ e R80.9 [facility] [place] [address] [place] [id number] [address] [place] [id number] Jul, [facility] [place] [address] [place] [id number] [place] [phone] Jul, Other specified transient ce rebral ischemias G45.8 [facility] [place] [address] [facility] [id number] [address] [place] [phone] Jun, Diastolic dysfunction I51.9 [facility] [place] [address] [place] [id number] [address] [place] [phone] Jun, Diastolic dysfunction I51.9 [facility] [place] [address] [place] [id number] [address] [place] [id number] Jun, Major depressive disorder, s david episode, unspecified F32.9 and Anxiety disorder, unspecified F41.9 [facility] [place] [address] [facility] [id number] [address] [place] [phone] Jun, [facility] [place] [address] [facility] [id number] [address] [place] [phone] Jun, [facility] [place] [address] [place] [id number] [place] [phone] May, Moderate major depression F3 2.1 and Generalized anxiety disorder F41.1 [facility] [place] [address] [facility] [id number] [address] [place] [id number] 16 May, 2016 Major depressive disorder, s david episode, unspecified F32.9 and Anxiety disorder, unspecified F41.9 [place] [address] [place] [id number] [address] [place] [phone] 15 May, 2016 [place] [address] [place] [id number] [address] [place] [phone] 14 May, 2016 Liver enzyme elevation R74.8 [place] [address] [place] [id number] [address] [place] [phone] 14 May, 2016 Liver enzyme elevation R74.8 [place] [address] [place] [id number] [address] [place] [id number] 10 May, 2016 Shortness of breath on exert ion R06.02 ; Essential hypertension I10 ; Mixed hyperlipidemia E78.2 and Tobacco use Z72.0 [facility], [place] [address] [place] [id number] [address] [place] [id number] May, [facility] [place] [address] [facility] [id number] [address] [place] [phone] May, [place] [address] [place] [id number] [address] [place] [phone] Apr, Anxiety F41.9 and Depression F32.9 [place] [address] [place] [id number] [address] [place] [phone] Apr, [facility] [place] [address] [id number] [address] [place] [phone] Apr, [facility] [place] [address] [id number] [address] [place] [phone] Mar, Depression F32.9 and Anxiety F41.9 [facility] [place] [address] [id number] [address] [place] [id number] 08 Mar, 2016 Anxiety F41.9 and Depression F32.9 [facility], [place] [address] [id number] [address] [place] [id number] 06 Mar, 2016 Well woman exam (no gynecolo gical exam) Z00.00 [facility], [place] [address] [id number] [address] [place] [phone] Mar, [facility], [place] [address] [id number] [address] [place] [phone] Mar, [facility] [address] [id number] [place] [id number] Feb, Dental caries K02.9 [facility], [place] [address] [id number] [address] [place] [id number] Feb, [facility] [place] [address] [id number] [address] [place] [id number] Feb, Anxiety F41.9 and Depression F32.9 [facility] [address] [id number] [address] [place] [id number] Feb, Dental examination Z01.20 [facility], [place] [address] [id number] [address] [place] [phone] Feb, [facility], [place] [address] [id number] [address] [place] [phone] Feb, [facility] [place] [address] [id number] [address] [place] [id number] Feb, Anxiety F41.9 and Depression F32.9 [facility] [place] [address] [id number] [address] [place] [id number] Jan, Severe episode of recurrent major depressive disorder, without psychotic features F33.2 and Anxiety disorder, unspecified F41.9 [facility], [place] [address] [id number] [address] [place] [phone] Jan, [facility], [place] [address] [id number] [address] [place] [id number] Dec, [facility], [place] [address] [id number] [address] [place] [id number] Dec, Anxiety F41.9 and Depression F32.9 [place] [address] [id number] [address] [place] [id number] Dec, Other specified transient ce rebral ischemias G45.8 and Nocturnal hypoxia G47.34 [facility] [place] [address] [id number] [address] [place] [phone] Dec, [facility] [place] [address] [id number] [address] [place] [id number] 17 Dec, 2015 Other specified transient ce rebral ischemias G45.8 [facility] [place] [address] [facility] [id number] [address] [place] [id number] 16 Dec, 2015 Severe episode of recurrent major depressive disorder, without psychotic features F33.2 and Anxiety disorder, unspecified F41.9 [facility] [place] [address] [id number] [address] [place] [id number] Dec, [facility] [place] [address] [id number] [address] [place] [phone] Dec, Anxiety F41.9 and Depression F32.9 [facility] [place] [address] [facility] [id number] [address] [place] [phone] 07 Dec, 2015 Anxiety F41.9 and Depression F32.9 [facility] [place] [address] [facility] [id number] [address] [place] [phone] Dec, [facility] [place] [address] [id number] November, Anxiety F41.9 and Depression F32.9 [place] [address] [id number] November, Severe episode of recurrent major depressive disorder, without psychotic features F33.2 [place] [address] [id number] November, Mixed hyperlipidemia E78.2 [place] [address] [id number] November, Anxiety F41.9 and Depression F32.9 [place] [address] [id number] November, Prediabetes R73.09 ; Essenti al hypertension I10 ; Anxiety F41.9 ; Depression F32.9 ; Gastroesophageal reflux disease, esophagitis presence not specified K21.9 ; Primary osteoarthritis involving multiple joints M15.0 ; History of renal cell cancer Z85.528 ; Postnasal drip R09.82 ; Allergic rhinitis, unspecified J30.9 and Tobacco use Z72.0 [place] [address] [id number] Oct, Anxiety F41.9 and Depression F32.9 [place] [address] [id number] Oct, [place] [address] [id number] Oct, [place] [address] [id number] 14 Sep, 2015 Splenic artery aneurysm I72. 8 [place] [address] [id number] 10 Sep, 2015 Depression F32.9 ; Anxiety F 41.9 ; Chronic prescription benzodiazepine use Z79.899 and Splenic artery aneurysm I72.8 [place] [address] [id number] Sep, Depression F32.9 and Anxiety F41.9 [facility], [place] [address] [id number] Sep, [facility] [place] [address] [id number] Aug, Dehydration E86.0 ; Diarrhea R19.7 ; Nausea R11.0 and Generalized abdominal pain R10.84 [facility], [place] [address] [id number] Aug, [facility] [place] [address] [id number] Jul, Depression F32.9 [facility] [place] [address] [id number] Jul, [facility] [place] [address] [id number] Jul, Anxiety F41.9 and Depression F32.9 [facility] [place] [address] [id number] Jul, [facility] [place] [address] [id number] Jun, Epigastric pain R10.13 [facility], [place] [address] [place] [id number] [address] [place] [phone] Jun, [facility] [place] [address] [id number] Jun, [facility] [place] [address] [place] [id number] [address] [place] [phone] May, [facility], [place] [address] [place] [id number] [place] [phone] May, [facility] [place] [address] [place] [id number] [address] [place] [phone] Apr, [facility] [place] [address] [place] [id number] [address] [place] [phone] Mar, Anxiety state, unspecified 3 00.00 ; Depression 311 ; Prediabetes 790.29 ; Generalized osteoarthrosis, involving multiple sites 715.09 and Hypertension 401.9 [facility] [place] [address] [id number] [address] [place] [id number] Mar, [facility] [place] [address] [id number] [address] [place] [id number] Feb, [facility] [place] [address] [id number] [address] [place] [phone] Jan, [facility], [place] [address] [id number] [address] [place] [phone] Jan, [facility], [place] [address] [facility] [id number] [address] [place] [phone] Jan, Generalized osteoarthrosis, involving multiple sites 715.09 [facility], [place] [address] [id number] [address] [place] [phone] Jan, Hx of renal cell cancer V10. 52 [facility], [place] [address] [id number] [address] [place] [phone] Dec, Generalized osteoarthrosis, involving multiple sites 715.09 and Hx of renal cell cancer V10.52 [facility] [place] [address] [id number] [address] [place] [id number] Dec, [facility] [place] [address] [id number] [address] [place] [id number] Dec, [facility] [place] [address] [id number] [address] [place] [phone] November, [facility] [place] [address] [id number] [address] [place] [phone] Oct, [facility] [place] [address] [id number] [address] [place] [id number] Oct, [facility] [place] [address] [id number] [address] [place] [phone] Sep, [facility] [place] [address] [facility] [id number] [address] [place] [id number] Sep, [facility] [place] [address] [facility] [id number] [address] [place] [phone] Sep, [facility] [place] [address] [facility] [id number] [address] [place] [phone] Sep, [facility] [place] [address] [facility] [id number] [address] [place] [phone] Aug, [facility] [place] [address] [facility] [id number] [address] [place] [phone] Aug, IMMUNIZATIONS No Known Immunizations SOCIAL HISTORY Never Assessed REASON FOR VISIT weight management-awoods PLAN OF CARE Activity Details Follow Up 4 Weeks Reason:Weight manage ment VITAL SIGNS Height 62 in 2018-06-17 Weight 279.5 lbs 2018-06-17 Temperature 98.0 degrees Fahrenheit 2018-06-17 Heart Rate 90 bpm 2018-06-17 Respiratory Rate 20 2018-06-17 BMI 51.12 kg/m2 2018-06-17 Blood pressure systolic 130 mmHg 2018-06-17 Blood pressure diastolic 80 mmHg 2018-06-17 MEDICATIONS Medication Instructions Dosage Frequency Start Date End Date Duration S tatus ProAir HFA 108 (90 Base) MCG/ACT Inhalation every 4 hrs 2 puffs as ne eded 4h 17 Active Wellbutrin XL 150 MG Orally Once a day (along wit h 300 mg tablet to equal 450 mg daily 1 tablet in the morning A ctive Atenolol 50 MG TAKE ONE TABLET BY MOUTH ONCE DAILY 90 Active Omeprazole 40 MG TAKE ONE CAPSULE BY MOUTH ONCE DAILY 30 Active Spiriva HandiHaler 18 MCG Inhalation Once a day 1 capsule 24h Apr Active Cymbalta 60 mg Orally Once a day 1 capsule 24h 18 Mar, 2018 Active Duloxetine HCl 30 MG Orally Once a day 1 capsule 24h Active Atorvastatin Calcium 40 MG TAKE ONE TABLET BY MOUTH ONCE DAILY 30 Active Potassium Chloride ER 20 MEQ TAKE ONE TABLET BY MOUTH ONCE DAILY WITH FOOD 30 Active Hydrocodone-Acetaminophen 5-325 MG Orally 2 times a day as n eeded for pain take 1 tablet May, 28 Active Vitamin E Complete Activ e BuPROPion HCl ER (XL) 300 MG TAKE ONE TA BLET BY MOUTH ONCE DAILY IN THE MORNING Active Tizanidine HCl 2 MG TAKE ONE (1) TABLET BY MOUTH EVERY EIGHT (8) HOURS NEEDED 10 Active Furosemide 20 MG TAKE ONE TABLET BY MOUTH ONCE DAILY 30 Active Spiriva Respimat 1.25 MCG/ACT Inhalation Once a day 2 puffs 24h Feb, Not-Taking Stiolto Respimat 2.5-2.5 MCG/ACT Inhalation Once a day 2 puffs 24h November, Not-Taking Ambien 10 mg Orally at bedtime 1 [...]
--- OUTSIDE RECORDS SUMMARY | 2020-02-08 07:11 | XMS REPORT ---
Author Author Emilee NO Organization [facility] Address [address] [place] [address] Care Team Providers Care Multilith Operator Name Role Phone GIGI NO Unavailable PROBLEMS Type Condition ICD9-CM Code UZC49-IN Code Onset Dates Condition S tatus SNOMED Code Problem Mixed hyperlipidemia E78.2 Active 288416692 Problem Fatty liver K76.0 Active 63537655 7 Problem Obstructive sleep apnea G47.33 Active 22066230 Problem Allergic rhinitis, unspecified J30.9 Active 66582434 Problem Essential hypertension I10 Active 44170011 Problem History of renal cell cancer Z85.528 A ctive 548049041 Problem Prediabetes R73.09 Active 4462927 Problem Diastolic dysfunction I51.9 Active 2455377 Problem Body mass index (bmi) 50-59.9 , adult Z68.43 Active 074965458 Problem Paresthesia of both hands R20.2 Acti ve 950273057 Problem 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 Acti ve 105989163 Problem BMI 50.0-59.9, adult Z68.43 Active 778498292 Problem Restrictive lung disease J98.4 Activ e 75242557 Problem Splenic artery aneurysm I72.8 Active 24184028 Problem Liver mass R16.0 Active 611759059 Problem Generalized anxiety disorder F41.1 A ctive 15176087 Problem Major depressive disorder, recurrent episode, mild degree F33.0 Active 168481120 Problem Excoriation, neurotic L98.1 Active 39977170 Problem History of tobacco use Z87.891 Active 0342143727335 Problem Primary osteoarthritis involving multiple joints M 15.0 Active 210548202 Problem Isolated proteinuria without specific morphologic lesion R80.0 Active 40315231 Problem 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 Active 439601774 Problem Pulmonary emphysema, unspecified emphysema type J4 3.9 Active 52124605 Problem Chronic prescription opiate use Z79.899 Active 607781087 Problem Tobacco use Z72.0 Active 17369312 0 Problem Bilateral carpal tunnel syndrome G56.03 Active 94198466 Problem Chronic prescription benzodiazepine use Z79.899 Active 423538475 ALLERGIES No Known Allergies ENCOUNTERS Encounter Location Date Diagnosis [facility] [address] [facility] [id number] [address] [place] [phone] 07 Aug, 2018 [facility] [address] [facility] [id number] [address] [place] [id number] Jun, [facility] [address] [facility] [id number] [address] [place] [phone] May, [facility] [address] [place] [id number] [place] [phone] May, Generalized anxiety disorder F41.1 ; Major depressive disorder, recurrent episode, mild degree F33.0 ; 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 and BMI 50.0-59.9, adult Z68.43 [facility] [address] [facility] [id number] [address] [place] [id number] 05 May, 2018 [facility] [address] [place] [id number] [address] [place] [phone] 31 Apr, 2018 Generalized anxiety disorder F41.1 and Major depressive disorder, recurrent episode, mild degree F33.0 [facility] [address] [place] [id number] [address] [place] [phone] 15 Apr, 2018 BMI 50.0-59.9, adult Z68.43 and Encounter for weight loss counseling Z71.3 [facility] [address] [facility] [id number] [address] [place] [phone] Apr, [facility] [address] [place] [id number] [address] [place] [phone] 20 Mar, 2018 Generalized anxiety disorder F41.1 and Major depressive disorder, recurrent episode, mild degree F33.0 [facility] [address] [facility] [id number] [address] [place] [phone] 18 Mar, 2018 [facility] [address] [place] [id number] [address] [place] [phone] Mar, Generalized anxiety disorder F41.1 [facility] [address] [id number] [address] [place] [phone] Mar, [facility] [address] [id number] [address] [place] [phone] Feb, Generalized anxiety disorder F41.1 ; Major depressive disorder, recurrent episode, mild degree F33.0 and 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 [facility] [address] [id number] [address] [place] [phone] Feb, Generalized anxiety disorder F41.1 and Major depressive disorder, recurrent episode, mild degree F33.0 [facility] [address] [id number] [address] [place] [phone] Feb, [facility] [address] [facility] [id number] [address] [place] [phone] Feb, Restrictive lung disease J98 .4 ; Pulmonary emphysema, unspecified emphysema type J43.9 and Body mass index (bmi) 50-59.9 , adult Z68.43 [facility] [address] [id number] [address] [place] [id number] Feb, Generalized anxiety disorder F41.1 ; Major depressive disorder, recurrent episode, mild degree F33.0 and 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 [facility] [address] [id number] [address] [place] [phone] Feb, [facility] [address] [id number] [address] [place] [phone] Jan, [facility] [address] [id number] [address] [place] [phone] Jan, Pulmonary emphysema, unspeci fied emphysema type J43.9 [facility] [address] [id number] [address] [place] [id number] Jan, Dental examination Z01.20 an d Dental caries K02.9 [facility] [address] [facility] [id number] [address] [place] [phone] Jan, Generalized anxiety disorder F41.1 and Major depressive disorder, recurrent episode, mild degree F33.0 [facility] [address] [place] [id number] [address] [place] [phone] Jan, [facility] [address] [place] [id number] [place] [phone] Jan, Generalized anxiety disorder F41.1 [facility] [address] [facility] [id number] [address] [place] [phone] Jan, Oral abscess K12.2 and BMI 5 0.0-59.9, adult Z68.43 [place] [address] [place] [id number] [place] [phone] Dec, BMI 50.0-59.9, adult Z68.43 and Weight loss counseling, encounter for Z71.3 [place] [address] [address] Dec, [place] [address] [address] Dec, [facility] [address] [place] [id number] [address] [place] [phone] November, [facility] [address] [place] [id number] [address] [place] [phone] November, [place] [address] [address] November, Pulmonary emphysema, unspeci fied emphysema type J43.9 ; Restrictive lung disease J98.4 ; BMI 50.0-59.9, adult Z68.43 ; History of renal cell cancer Z85.528 ; Essential hypertension I10 ; Mixed hyperlipidemia E78.2 and Fatty liver K76.0 [facility] [address] [place] [id number] [address] [place] [phone] November, Generalized anxiety disorder F41.1 [facility] [address] [id number] [address] [place] [phone] November, Generalized anxiety disorder F41.1 and Major depressive disorder, recurrent episode, mild degree F33.0 [facility] [address] [facility] [id number] [address] [place] [phone] November, Generalized anxiety disorder F41.1 ; Major depressive disorder, recurrent episode, mild degree F33.0 and 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 [facility] [address] [id number] [address] [place] [phone] November, [facility] [address] [id number] [address] [place] [phone] Oct, Generalized anxiety disorder F41.1 [facility] [address] [facility] [id number] [address] [place] [phone] Oct, [facility] [address] [facility] [id number] [address] [place] [phone] Oct, Influenza-like illness R69 [facility] [address] [facility] [id number] [address] [place] [phone] Sep, Influenza-like illness R69 [facility] [address] [facility] [id number] [address] [place] [phone] Sep, Generalized anxiety disorder F41.1 [facility] [address] [facility] [id number] [address] [place] [phone] Sep, [facility] [address] [facility] [id number] [address] [place] [phone] Aug, [facility] [address] [facility] [id number] [address] [place] [phone] Aug, [facility] [address] [facility] [id number] [address] [place] [phone] Aug, Generalized anxiety disorder F41.1 [facility] [address] [facility] [id number] [address] [place] [phone] Aug, Influenza-like illness R69 a nd BMI 50.0-59.9, adult Z68.43 [facility] [address] [address] Jul, Fatty liver K76.0 ; Restrict jean-paul lung disease J98.4 ; Diastolic dysfunction I51.9 ; Body mass index (bmi) 50-59.9 , adult Z68.43 and Chronic prescription opiate use Z79.899 [facility] [address] [address] Jul, Generalized anxiety disorder F41.1 [place] [address] [address] Jul, Generalized anxiety disorder F41.1 [place] [address] [address] Jul, 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 [place] [address] [address] Jun, Generalized anxiety disorder F41.1 [place] [address] [address] Jun, [place] [address] [address] Jun, Mixed hyperlipidemia E78.2 [place] [address] [address] Jun, Generalized anxiety disorder F41.1 [place] [address] [address] Jun, Generalized anxiety disorder F41.1 ; Major depressive disorder, recurrent episode, mild degree F33.0 and 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 [place] [address] [place] [id number] [place] [phone] May, [facility] [address] [address] May, Generalized anxiety disorder F41.1 [facility] [address] [id number] [address] [place] [phone] May, Generalized anxiety disorder F41.1 [facility] [address] [id number] [address] [place] [phone] May, 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 [facility] [address] [id number] [address] [place] [phone] Apr, Major depressive disorder, r ecurrent episode, mild degree F33.0 ; Generalized anxiety disorder F41.1 and Excoriation, neurotic L98.1 [facility] [address] [id number] [address] [place] [phone] Apr, 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 [facility] [address] [id number] [address] [place] [phone] Apr, Essential hypertension I10 a nd Mixed hyperlipidemia E78.2 [facility] [address] [id number] [address] [place] [phone] Apr, Generalized anxiety disorder F41.1 ; Major depressive disorder, recurrent episode, mild degree F33.0 and 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 [facility] [address] [id number] [address] [place] [phone] Mar, Generalized anxiety disorder F41.1 ; Major depressive disorder, recurrent episode, mild degree F33.0 and 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 [facility] [address] [id number] [address] [place] [phone] Mar, Skin lesion L98.9 [facility] [address] [id number] [address] [place] [phone] Mar, 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 [facility] [address] [id number] [address] [place] [phone] Mar, [facility] [address] [facility] [id number] [address] [place] [phone] Mar, [facility] [address] [facility] [id number] [address] [place] [phone] Feb, Major depressive disorder, r ecurrent episode, mild degree F33.0 ; Generalized anxiety disorder F41.1 and Excoriation, neurotic L98.1 [facility] [address] [facility] [id number] [address] [place] [phone] Feb, Generalized anxiety disorder F41.1 [place] [address] [facility] [id number] [address] [place] [address] Feb, 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 [place] [address] [place] [id number] [address] [place] [phone] Jan, [place] [address] [facility] [id number] [address] [place] [phone] Jan, Essential hypertension I10 ; Splenic artery aneurysm I72.8 ; Liver mass R16.0 ; Restrictive lung disease J98.4 ; Primary osteoarthritis involving multiple joints M15.0 ; Mixed hyperlipidemia E78.2 ; Bilateral carpal tunnel syndrome G56.03 ; Body mass index (bmi) 50-59.9 , adult Z68.43 and History of tobacco use Z87.891 [place] [address] [place] [id number] [address] [place] [phone] Jan, Major depressive disorder, r ecurrent episode, mild degree F33.0 and Generalized anxiety disorder F41.1 [place] [address] [facility] [id number] [address] [place] [phone] Jan, [place] [address] [place] [id number] [place] [phone] Jan, Generalized anxiety disorder F41.1 and Major depressive disorder, recurrent episode, mild degree F33.0 [facility] [address] [facility] [id number] [address] [place] [phone] Dec, 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 [facility] [address] [facility] [id number] [address] [place] [phone] Dec, Generalized anxiety disorder F41.1 [facility] [address] [facility] [id number] [address] [place] [phone] Dec, [facility] [address] [facility] [id number] [address] [place] [phone] Dec, Major depressive disorder, r ecurrent episode, mild degree F33.0 and Generalized anxiety disorder F41.1 [facility] [address] [facility] [id number] [address] [place] [phone] Dec, Generalized anxiety disorder F41.1 and Major depressive disorder, recurrent episode, mild degree F33.0 [facility] [address] [facility] [id number] [address] [place] [phone] November, Mild major depression F32.0 and Primary osteoarthritis involving multiple joints M15.0 [place] [address] [place] [id number] [address] [place] [phone] November, Major depressive disorder, r ecurrent episode, mild degree F33.0 and Generalized anxiety disorder F41.1 [place] [address] [facility] [id number] [address] [place] [address] November, 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 ; Essential hypertension I10 ; Prediabetes R73.09 ; Mixed hyperlipidemia E78.2 ; Chronic prescription benzodiazepine use Z79.899 ; Chronic prescription opiate use Z79.899 ; Tobacco use Z72.0 ; Bilateral carpal tunnel syndrome G56.03 and Body mass index (bmi) 50-59.9 , adult Z68.43 [place] [address] [facility] [id number] [address] [place] [phone] November, 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 and Mild major depression F32.0 [facility] [address] [facility] [id number] [address] [place] [phone] Oct, [facility] [address] [place] [id number] [place] [address] Oct, 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 ; Essential hypertension I10 ; Prediabetes R73.09 ; Chronic prescription benzodiazepine use Z79.899 ; Chronic prescription opiate use Z79.899 ; Tobacco use Z72.0 ; Mixed hyperlipidemia E78.2 ; Bilateral carpal tunnel syndrome G56.03 ; Body mass index (bmi) 50-59.9 , adult Z68.43 and Encounter for immunization Z23 [place] [address] [address] Oct, Major depressive disorder, r ecurrent episode, mild degree F33.0 and Generalized anxiety disorder F41.1 [place] [address] [address] Oct, [place] [address] [address] Oct, [place] [address] [address] Sep, Mild major depression F32.0 [place] [address] [address] Sep, [place] [address] [address] Sep, Mild major depression F32.0 and Generalized anxiety disorder F41.1 [place] [address] [address] Sep, Paresthesia of both hands R2 0.2 and Cervical radiculopathy M54.12 [place] [address] [place] [id number] [place] [phone] Sep, [place] [address] [place] [id number] [place] [phone] Sep, [place] [address] [place] [id number] [place] [address] Aug, Paresthesia of both hands R2 0.2 and Neck pain M54.2 [facility] [address] [facility] [id number] [address] [place] [address] Aug, [facility] [address] [facility] [id number] [address] [place] [phone] Jul, Neck pain M54.2 and Paresthe eddie of both hands R20.2 [facility] [address] [facility] [id number] [address] [place] [id number] Jul, Proteinuria, unspecified typ e R80.9 [facility] [address] [facility] [id number] [address] [place] [address] Jul, Proteinuria, unspecified typ e R80.9 [facility] [address] [facility] [id number] [address] [place] [address] Jul, [facility] [address] [place] [id number] [address] [place] [phone] Jul, Other specified transient ce rebral ischemias G45.8 [facility] [address] [facility] [id number] [address] [place] [phone] Jun, Diastolic dysfunction I51.9 [facility] [address] [facility] [id number] [address] [place] [phone] Jun, Diastolic dysfunction I51.9 [facility] [address] [facility] [id number] [address] [place] [phone] Jun, Major depressive disorder, s david episode, unspecified F32.9 and Anxiety disorder, unspecified F41.9 [facility] [address] [facility] [id number] [address] [place] [phone] Jun, [facility] [address] [facility] [id number] [address] [place] [phone] Jun, [facility] [address] [facility] [id number] [address] [place] [address] May, Moderate major depression F3 2.1 and Generalized anxiety disorder F41.1 [place] [address] [facility] [id number] [address] [place] [phone] 16 May, 2016 Major depressive disorder, s david episode, unspecified F32.9 and Anxiety disorder, unspecified F41.9 [facility] [address] [facility] [id number] [address] [place] [phone] 15 May, 2016 [facility] [address] [facility] [id number] [address] [place] [phone] 14 May, 2016 Liver enzyme elevation R74.8 [facility] [address] [facility] [id number] [address] [place] [phone] 14 May, 2016 Liver enzyme elevation R74.8 [facility] [address] [facility] [id number] [address] [place] [id number] 10 May, 2016 Shortness of breath on exert ion R06.02 ; Essential hypertension I10 ; Mixed hyperlipidemia E78.2 and Tobacco use Z72.0 [facility] [address] [facility] [id number] [address] [place] [phone] 03 May, 2016 [facility] [address] [facility] [id number] [address] [place] [phone] 02 May, 2016 [facility] [address] [place] [id number] [address] [place] [phone] 06 Apr, 2016 Anxiety F41.9 and Depression F32.9 [facility] [address] [place] [id number] [address] [place] [address] Apr, [facility] [address] [facility] [id number] [address] [place] [phone] Apr, [facility] [address] [facility] [id number] [address] [place] [phone] Mar, Depression F32.9 and Anxiety F41.9 [facility] [address] [facility] [id number] [address] [place] [phone] 08 Mar, 2016 Anxiety F41.9 and Depression F32.9 [facility] [address] [facility] [id number] [address] [place] [phone] Mar, Well woman exam (no gynecolo gical exam) Z00.00 [facility] [address] [id number] [address] [place] [address] Mar, [facility] [address] [id number] [address] [place] [phone] Mar, [facility] [address] [id number] [address] [place] [id number] Feb, Dental caries K02.9 [facility] [address] [id number] [address] [place] [phone] Feb, [facility] [address] [id number] [address] [place] [phone] Feb, Anxiety F41.9 and Depression F32.9 [facility] [address] [id number] [address] [place] [id number] Feb, Dental examination Z01.20 [facility] [address] [id number] [address] [place] [phone] Feb, [facility] [address] [id number] [address] [place] [phone] Feb, [facility] [address] [id number] [address] [place] [phone] Feb, Anxiety F41.9 and Depression F32.9 [facility] [address] [id number] [address] [place] [phone] Jan, Severe episode of recurrent major depressive disorder, without psychotic features F33.2 and Anxiety disorder, unspecified F41.9 [facility] [address] [id number] [address] [place] [id number] Jan, [facility] [address] [id number] [address] [place] [id number] Dec, [facility] [address] [id number] [address] [place] [phone] Dec, Anxiety F41.9 and Depression F32.9 [facility] [address] [id number] [address] [place] [id number] 24 Dec, 2015 Other specified transient ce rebral ischemias G45.8 and Nocturnal hypoxia G47.34 [facility] [address] [id number] [address] [place] [id number] 18 Dec, 2015 [facility] [address] [id number] [address] [place] [id number] 17 Dec, 2015 Other specified transient ce rebral ischemias G45.8 [facility] [address] [id number] [address] [place] [id number] 16 Dec, 2015 Severe episode of recurrent major depressive disorder, without psychotic features F33.2 and Anxiety disorder, unspecified F41.9 [facility] [address] [id number] [address] [place] [id number] Dec, [facility] [address] [id number] [address] [place] [phone] Dec, Anxiety F41.9 and Depression F32.9 [facility] [address] [id number] [address] [place], [place] [phone] Dec, Anxiety F41.9 and Depression F32.9 [facility] [address] [id number] [address] [place] [phone] Dec, [facility] [address] [id number] [address] [place] [phone] November, Anxiety F41.9 and Depression F32.9 [facility] [address] [id number] [address] [place] [phone] November, Severe episode of recurrent major depressive disorder, without psychotic features F33.2 [facility] [address] [id number] [address] [place] [phone] November, Mixed hyperlipidemia E78.2 [facility] [address] [id number] [address] [place] [phone] November, Anxiety F41.9 and Depression F32.9 [place] [address] [phone] 05 Nov, 2015 Prediabetes R73.09 ; Essenti al hypertension I10 ; Anxiety F41.9 ; Depression F32.9 ; Gastroesophageal reflux disease, esophagitis presence not specified K21.9 ; Primary osteoarthritis involving multiple joints M15.0 ; History of renal cell cancer Z85.528 ; Postnasal drip R09.82 ; Allergic rhinitis, unspecified J30.9 and Tobacco use Z72.0 [place] [address] [phone] Oct, Anxiety F41.9 and Depression F32.9 [place] [address] [id number] 07 Oct, 2015 [place] [address] [phone] Oct, [place] [address] [phone] 14 Sep, 2015 Splenic artery aneurysm I72. 8 [place] [address] [phone] 10 Sep, 2015 Depression F32.9 ; Anxiety F 41.9 ; Chronic prescription benzodiazepine use Z79.899 and Splenic artery aneurysm I72.8 [place] [address] [phone] Sep, Depression F32.9 and Anxiety F41.9 [place] [address] [address] Sep, [place] [address] [phone] 18 Aug, 2015 Dehydration E86.0 ; Diarrhea R19.7 ; Nausea R11.0 and Generalized abdominal pain R10.84 [place] [address] [phone] Aug, [facility] [address] [id number] [address] [place] [phone] Jul, Depression F32.9 [facility] [address] [id number] [address] [place] [phone] Jul, [facility] [address] [facility] [id number] [address] [place] [phone] Jul, Anxiety F41.9 and Depression F32.9 [facility] [address] [id number] [address] [place] [phone] Jul, [facility] [address] [id number] [address] [place] [phone] Jun, Epigastric pain R10.13 [facility] [address] [facility] [id number] [address] [place] [phone] Jun, [facility] [address] [facility] [id number] [address] [place] [phone] Jun, [facility] [address] [facility] [id number] [address] [place] [phone] May, [facility] [address] [facility] [id number] [address] [place] [phone] May, [facility] [address] [facility] [id number] [address] [place] [phone] Apr, [facility] [address] [facility] [id number] [address] [place] [phone] Mar, Anxiety state, unspecified 3 00.00 ; Depression 311 ; Prediabetes 790.29 ; Generalized osteoarthrosis, involving multiple sites 715.09 and Hypertension 401.9 [facility] [address] [id number] [address] [place] [phone] Mar, [facility] [address] [facility] [id number] [address] [place] [phone] Feb, [facility] [address] [id number] [address] [place] [phone] 14 Jan, 2015 [facility] [address] [id number] [address] [place] [phone] Jan, [facility] [address] [id number] [address] [place] [phone] Jan, Generalized osteoarthrosis, involving multiple sites 715.09 [facility] [address] [id number] [address] [place] [phone] 07 Jan, 2015 Hx of renal cell cancer V10. 52 [facility] [address] [id number] [address] [place] [phone] Dec, Generalized osteoarthrosis, involving multiple sites 715.09 and Hx of renal cell cancer V10.52 [facility] [address] [id number] [address] [place] [phone] Dec, [facility] [address] [id number] [address] [place] [phone] Dec, [facility] [address] [id number] [address] [place] [phone] November, [facility] [address] [id number] [address] [place] [phone] Oct, [facility] [address] [id number] [address] [place] [phone] Oct, [facility] [address] [id number] [address] [place] [phone] Sep, [facility] [address] [id number] [address] [place] [phone] Sep, [facility] [address] [id number] [address] [place] [phone] Sep, [facility] [address] [id number] [address] [place] [phone] Sep, [facility] [address] [id number] [address] [place] [phone] Aug, [facility] [address] [facility] [id number] [address] [place] [address] Aug, IMMUNIZATIONS No Known Immunizations SOCIAL HISTORY Never Assessed REASON FOR VISIT f/u- due for a refill of Ambcatia Sanabria, PDM PLAN OF CARE Activity Details Follow Up 3 Months Reason: f/u VITAL SIGNS Height 62 in 2018-06-04 Weight 286.0 lbs 2018-06-04 Heart Rate 88 bpm 2018-06-04 Respiratory Rate 20 2018-06-04 BMI 52.30 kg/m2 2018-06-04 Blood pressure systolic 118 mmHg 2018-06-04 Blood pressure diastolic 64 mmHg 2018-06-04 MEDICATIONS Medication Instructions Dosage Frequency Start Date End Date Duration S tatus Vitamin E Complete Activ e Spiriva Respimat 1.25 MCG/ACT Inhalation Once a day 2 puffs 24h 10 Feb, 2018 Not-Taking Duloxetine HCl 30 MG Orally Once a day 1 capsule 24h Active Cymbalta 60 mg Orally Once a day 1 capsule 24h 18 Mar, 2018 Active Furosemide 20 MG TAKE ONE TABLET BY MOUTH ONCE DAILY 30 Active Atorvastatin Calcium 40 MG TAKE ONE TABLET BY MOUTH ONCE DAILY 30 Active Potassium Chloride ER 20 MEQ TAKE ONE TABLET BY MOUTH ONCE DAILY WITH FOOD 30 Active Omeprazole 40 MG TAKE ONE CAPSULE BY MOUTH ONCE DAILY 30 Active ProAir HFA 108 (90 Base) MCG/ACT Inhalation every 4 hrs 2 puffs as ne eded 4h 17 Active Tizanidine HCl 2 MG TAKE ONE (1) TABLET BY MOUTH EVERY EIGHT (8) HOURS NEEDED 10 Active Wellbutrin XL 150 MG Orally Once a day (along wit h 300 mg tablet to equal 450 mg daily 1 tablet in the morning A ctive Spiriva HandiHaler 18 MCG Inhalation Once a day 1 capsule 24h 15 Apr Active Atenolol 50 MG TAKE ONE TABLET BY MOUTH ONCE DAILY 90 Active BuPROPion HCl ER (XL) 300 MG TAKE ONE TA BLET BY MOUTH ONCE DAILY IN THE MORNING Active Stiolto Respimat 2.5-2.5 MCG/ACT Inhalation Once a day 2 puffs 24h November, Not-Taking Ambien 10 mg Orally at bedtime 1 tablet Feb, 30 days Active Hydrocodone-Acetaminophen 5-325 MG Orally 2 times [...]
--- OUTSIDE RECORDS SUMMARY | 2020-02-08 07:12 | XMS REPORT ---
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 Name Role Phone LOVELY CASSIDY Unavailable PROBLEMS Type Condition ICD9-CM Code LSX88-ZD Code Onset Dates Condition S tatus SNOMED Code Problem Mixed hyperlipidemia E78.2 Active 382599741 Problem Fatty liver K76.0 Active 70859815 7 Problem Obstructive sleep apnea G47.33 Active 47179279 Problem Allergic rhinitis, unspecified J30.9 Active 43426702 Problem Essential hypertension I10 Active 27955016 Problem History of renal cell cancer Z85.528 A ctive 913845242 Problem Prediabetes R73.09 Active 2607472 Problem Diastolic dysfunction I51.9 Active 6427905 Problem Body mass index (bmi) 50-59.9 , adult Z68.43 Active 013627550 Problem Paresthesia of both hands R20.2 Acti ve 887868679 Problem 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 Acti ve 666464143 Problem BMI 50.0-59.9, adult Z68.43 Active 523770059 Problem Restrictive lung disease J98.4 Activ e 91221483 Problem Splenic artery aneurysm I72.8 Active 07800145 Problem Liver mass R16.0 Active 643119228 Problem Generalized anxiety disorder F41.1 A ctive 52534190 Problem Major depressive disorder, recurrent episode, mild degree F33.0 Active 740035557 Problem Excoriation, neurotic L98.1 Active 20590528 Problem History of tobacco use Z87.891 Active 4055308918155 Problem Primary osteoarthritis involving multiple joints M 15.0 Active 051813523 Problem Isolated proteinuria without specific morphologic lesion R80.0 Active 41831610 Problem 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 Active 003321676 Problem Pulmonary emphysema, unspecified emphysema type J4 3.9 Active 07797079 Problem Chronic prescription opiate use Z79.899 Active 501002687 Problem Tobacco use Z72.0 Active 97031130 0 Problem Bilateral carpal tunnel syndrome G56.03 Active 99305035 Problem Chronic prescription benzodiazepine use Z79.899 Active 449716912 ALLERGIES No Information ENCOUNTERS Encounter Location Date Diagnosis [facility] [address] [id number] [address] [place] [phone] May, [facility] [address] [id number] [address] [place] [phone] Apr, [facility] [address] [id number] [address] [place] [id number] 15 Apr, 2018 [facility] [address] [id number] [address] [place] [phone] Apr, [facility] [address] [facility] [id number] [address] [place] [phone] 20 Mar, 2018 Generalized anxiety disorder F41.1 and Major depressive disorder, recurrent episode, mild degree F33.0 [facility] [address] [id number] [address] [place] [id number] 18 Mar, 2018 [facility] [address] [id number] [address] [place] [phone] 12 Mar, 2018 Generalized anxiety disorder F41.1 [facility] [address] [id number] [address] [place] [id number] 10 Mar, 2018 [facility] [address] [facility] [id number] [address] [place] [id number] 14 Feb, 2018 Generalized anxiety disorder F41.1 ; Major depressive disorder, recurrent episode, mild degree F33.0 and 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 [facility] [address] [id number] [address] [place] [id number] Feb, Generalized anxiety disorder F41.1 and Major depressive disorder, recurrent episode, mild degree F33.0 [facility] [address] [id number] [address] [place] [phone] Feb, [facility] [address] [id number] [address] [place] [phone] Feb, Restrictive lung disease J98 .4 ; Pulmonary emphysema, unspecified emphysema type J43.9 and Body mass index (bmi) 50-59.9 , adult Z68.43 [facility] [address] [facility] [id number] [address] [place] [id number] Feb, Generalized anxiety disorder F41.1 ; Major depressive disorder, recurrent episode, mild degree F33.0 and 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 [facility] [address] [facility] [id number] [address] [place] [phone] Feb, [facility] [address] [facility] [id number] [address] [place] [phone] Jan, [facility] [address] [facility] [id number] [address] [place] [id number] Jan, Pulmonary emphysema, unspeci fied emphysema type J43.9 [facility] [address] [id number] [address] [place] [id number] Jan, Dental examination Z01.20 an d Dental caries K02.9 [facility] [address] [facility] [id number] [address] [place] [phone] Jan, Generalized anxiety disorder F41.1 and Major depressive disorder, recurrent episode, mild degree F33.0 [facility] [address] [facility] [id number] [address] [place] [id number] Jan, [facility] [address] [place] [id number] [address] [place] [phone] Jan, Generalized anxiety disorder F41.1 [facility] [address] [facility] [id number] [address] [place] [phone] Jan, Oral abscess K12.2 and BMI 5 0.0-59.9, adult Z68.43 [facility] [address] [facility] [id number] [address] [place] [id number] Dec, BMI 50.0-59.9, adult Z68.43 and Weight loss counseling, encounter for Z71.3 [facility] [address] [facility] [id number] [address] [place] [phone] Dec, [facility] [address] [facility] [id number] [address] [place] [id number] Dec, [facility] [address] [facility] [id number] [address] [place] [phone] November, [facility] [address] [facility] [id number] [address] [place] [id number] November, [facility] [address] [facility] [id number] [address] [place] [id number] November, Pulmonary emphysema, unspeci fied emphysema type J43.9 ; Restrictive lung disease J98.4 ; BMI 50.0-59.9, adult Z68.43 ; History of renal cell cancer Z85.528 ; Essential hypertension I10 ; Mixed hyperlipidemia E78.2 and Fatty liver K76.0 [facility] [address] [facility] [id number] [address] [place] [phone] November, Generalized anxiety disorder F41.1 [place] [address] [address] [facility] [id number] [address] [place] [phone] November, Generalized anxiety disorder F41.1 and Major depressive disorder, recurrent episode, mild degree F33.0 [place] [address] [address] [facility] [id number] [address] [place] [id number] November, Generalized anxiety disorder F41.1 ; Major depressive disorder, recurrent episode, mild degree F33.0 and 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 [facility] [address] [facility] [id number] [address] [place] [phone] November, [facility] [address] [facility] [id number] [address] [place] [id number] Oct, Generalized anxiety disorder F41.1 [facility] [address] [facility] [id number] [address] [place] [phone] Oct, [facility] [address] [place] [id number] [address] [place] [id number] Oct, Influenza-like illness R69 [facility] [id number] [place] [phone] Sep, Influenza-like illness R69 [facility] [address] [facility] [id number] [address] [place] [id number] Sep, Generalized anxiety disorder F41.1 [facility] [address] [facility] [id number] [address] [place] [phone] Sep, [facility] [address] [facility] [id number] [address] [place] [phone] Aug, [facility] [address] [place] [id number] [address] [place] [phone] Aug, [facility] [address] [place] [id number] [address] [place] [phone] Aug, Generalized anxiety disorder F41.1 [facility] [address] [facility] [id number] [address] [place] [phone] Aug, Influenza-like illness R69 a nd BMI 50.0-59.9, adult Z68.43 [facility] [address] [place] [id number] [address] [place] [phone] Jul, Fatty liver K76.0 ; Restrict jean-paul lung disease J98.4 ; Diastolic dysfunction I51.9 ; Body mass index (bmi) 50-59.9 , adult Z68.43 and Chronic prescription opiate use Z79.899 [facility] [address] [place] [id number] [address] [place] [id number] Jul, Generalized anxiety disorder F41.1 [facility] [address] [place] [id number] [address] [place] [phone] Jul, Generalized anxiety disorder F41.1 [facility] [address] [place] [id number] [address] [place] [id number] Jul, 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 [facility] [address] [id number] [address] [place] [id number] Jun, Generalized anxiety disorder F41.1 [facility] [address] [id number] [address] [place] [id number] Jun, [facility] [address] [id number] [address] [place] [phone] Jun, Mixed hyperlipidemia E78.2 [facility] [address] [id number] [address] [place] [id number] Jun, Generalized anxiety disorder F41.1 [facility] [address] [id number] [address] [place] [phone] Jun, Generalized anxiety disorder F41.1 ; Major depressive disorder, recurrent episode, mild degree F33.0 and 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 [facility] [address] [id number] [address] [place] [phone] May, [facility] [address] [id number] [address] [place] [id number] May, Generalized anxiety disorder F41.1 [facility] [address] [id number] [address] [place] [phone] May, Generalized anxiety disorder F41.1 [facility] [address] [id number] [address] [place] [id number] May, 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 [facility] [address] [id number] [address] [place] [phone] Apr, Major depressive disorder, r ecurrent episode, mild degree F33.0 ; Generalized anxiety disorder F41.1 and Excoriation, neurotic L98.1 [facility] [address] [id number] [address] [place] [phone] Apr, 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 [facility] [address] [id number] [address] [place] [phone] Apr, Essential hypertension I10 a nd Mixed hyperlipidemia E78.2 [facility] [address] [id number] [address] [place] [phone] Apr, Generalized anxiety disorder F41.1 ; Major depressive disorder, recurrent episode, mild degree F33.0 and 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 [facility] [address] [id number] [address] [place] [phone] Mar, Generalized anxiety disorder F41.1 ; Major depressive disorder, recurrent episode, mild degree F33.0 and 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 [facility] [address] [id number] [address] [place] [phone] Mar, Skin lesion L98.9 [facility] [address] [id number] [address] [place] [id number] Mar, 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 [facility] [address] [id number] [address] [place] [phone] Mar, [facility] [address] [id number] [address] [place] [phone] Mar, [facility] [address] [id number] [address] [place] [id number] Feb, Major depressive disorder, r ecurrent episode, mild degree F33.0 ; Generalized anxiety disorder F41.1 and Excoriation, neurotic L98.1 [facility] [address] [id number] [address] [place] [id number] Feb, Generalized anxiety disorder F41.1 [facility] [address] [id number] [address] [place] [id number] Feb, 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 [facility] [address] [id number] [address] [place] [id number] Jan, [facility] [address] [id number] [address] [place] [id number] Jan, Essential hypertension I10 ; Splenic artery aneurysm I72.8 ; Liver mass R16.0 ; Restrictive lung disease J98.4 ; Primary osteoarthritis involving multiple joints M15.0 ; Mixed hyperlipidemia E78.2 ; Bilateral carpal tunnel syndrome G56.03 ; Body mass index (bmi) 50-59.9 , adult Z68.43 and History of tobacco use Z87.891 [facility] [address] [id number] [address] [place] [id number] Jan, Major depressive disorder, r ecurrent episode, mild degree F33.0 and Generalized anxiety disorder F41.1 [facility] [address] [id number] [address] [place] [phone] Jan, [facility] [address] [id number] [address] [place] [phone] Jan, Generalized anxiety disorder F41.1 and Major depressive disorder, recurrent episode, mild degree F33.0 [facility] [address] [id number] [address] [place] [phone] Dec, 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 [facility] [address] [id number] [address] [place] [phone] Dec, Generalized anxiety disorder F41.1 [facility] [address] [id number] [address] [place] [phone] Dec, [facility] [address] [id number] [address] [place] [id number] Dec, Major depressive disorder, r ecurrent episode, mild degree F33.0 and Generalized anxiety disorder F41.1 [facility] [address] [id number] [address] [place] [id number] Dec, Generalized anxiety disorder F41.1 and Major depressive disorder, recurrent episode, mild degree F33.0 [facility] [address] [id number] [address] [place] [phone] November, Mild major depression F32.0 and Primary osteoarthritis involving multiple joints M15.0 [place] [address] [address] [facility] [id number] [address] [place] [phone] November, Major depressive disorder, r ecurrent episode, mild degree F33.0 and Generalized anxiety disorder F41.1 [place] [address] [place] [id number] [address] [place] [id number] November, 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 ; Essential hypertension I10 ; Prediabetes R73.09 ; Mixed hyperlipidemia E78.2 ; Chronic prescription benzodiazepine use Z79.899 ; Chronic prescription opiate use Z79.899 ; Tobacco use Z72.0 ; Bilateral carpal tunnel syndrome G56.03 and Body mass index (bmi) 50-59.9 , adult Z68.43 [place] [address] [place] [id number] [address] [place] [id number] November, 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 and Mild major depression F32.0 [place] [id number] [place] [phone] Oct, [place] [address] [place] [id number] [address] [place] [id number] Oct, 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 ; Essential hypertension I10 ; Prediabetes R73.09 ; Chronic prescription benzodiazepine use Z79.899 ; Chronic prescription opiate use Z79.899 ; Tobacco use Z72.0 ; Mixed hyperlipidemia E78.2 ; Bilateral carpal tunnel syndrome G56.03 ; Body mass index (bmi) 50-59.9 , adult Z68.43 and Encounter for immunization Z23 [place] [address] [address] [facility] [id number] [address] [place] [phone] Oct, Major depressive disorder, r ecurrent episode, mild degree F33.0 and Generalized anxiety disorder F41.1 [place] [address] [address] [facility] [id number] [address] [place] [phone] Oct, [place] [address] [place] [id number] [place] [phone] Oct, [facility] [address] [facility] [id number] [address] [place] [phone] Sep, Mild major depression F32.0 [facility] [address] [facility] [id number] [address] [place] [phone] Sep, [facility] [address] [place] [id number] [address] [place] [id number] Sep, Mild major depression F32.0 and Generalized anxiety disorder F41.1 [facility] [address] [facility] [id number] [address] [place] [id number] Sep, Paresthesia of both hands R2 0.2 and Cervical radiculopathy M54.12 [facility] [address] [facility] [id number] [address] [place] [phone] Sep, [place] [address] [address] [facility] [id number] [address] [place] [id number] Sep, [facility] [address] [place] [id number] [address] [place] [id number] Aug, Paresthesia of both hands R2 0.2 and Neck pain M54.2 [facility] [address] [facility] [id number] [address] [place] [phone] Aug, [facility] [address] [facility] [id number] [address] [place] [id number] Jul, Neck pain M54.2 and Paresthe eddie of both hands R20.2 [facility] [address] [facility] [id number] [address] [place] [id number] Jul, Proteinuria, unspecified typ e R80.9 [facility] [address] [place] [id number] [address] [place] [id number] Jul, Proteinuria, unspecified typ e R80.9 [facility] [address] [facility] [id number] [address] [place] [phone] Jul, [facility] [address] [place] [id number] [address] [place] [phone] Jul, Other specified transient ce rebral ischemias G45.8 [facility] [address] [place] [id number] [place] [phone] 12 Jun, 2016 Diastolic dysfunction I51.9 [facility] [address] [place] [id number] [place] [phone] 08 Jun, 2016 Diastolic dysfunction I51.9 [facility] [address] [place] [id number] [place] [phone] Jun, Major depressive disorder, s david episode, unspecified F32.9 and Anxiety disorder, unspecified F41.9 [place] [address] [phone] Jun, [place] [address] [place] [id number] [place] [phone] Jun, [facility] [address] [phone] May, Moderate major depression F3 2.1 and Generalized anxiety disorder F41.1 [place] [address] [id number] 16 May, 2016 Major depressive disorder, s david episode, unspecified F32.9 and Anxiety disorder, unspecified F41.9 [place] [address] [id number] 15 May, 2016 [facility] [address] [place] [id number] [place] [phone] 14 May, 2016 Liver enzyme elevation R74.8 [place] [address] [phone] 14 May, 2016 Liver enzyme elevation R74.8 [place] [address] [place] [id number] [place] [phone] 10 May, 2016 Shortness of breath on exert ion R06.02 ; Essential hypertension I10 ; Mixed hyperlipidemia E78.2 and Tobacco use Z72.0 [facility] [address] [id number] [address] [place] [phone] May, [facility] [address] [id number] [address] [place] [phone] May, [facility] [address] [id number] [address] [place] [id number] Apr, Anxiety F41.9 and Depression F32.9 [facility] [address] [id number] [address] [place] [id number] Apr, [facility] [address] [id number] [address] [place] [id number] Apr, [facility] [address] [id number] [address] [place] [id number] Mar, Depression F32.9 and Anxiety F41.9 [facility] [address] [id number] [address] [place] [id number] Mar, Anxiety F41.9 and Depression F32.9 [facility] [address] [id number] [address] [place] [id number] Mar, Well woman exam (no gynecolo gical exam) Z00.00 [facility] [address] [id number] [address] [place] [phone] Mar, [facility] [facility] [address] [id number] [address] [place] [id number] Mar, [facility] [address] [id number] [address] [place] [phone] Feb, Dental caries K02.9 [facility] [address] [id number] [address] [place] [phone] Feb, [facility] [address] [id number] [address] [place] [phone] Feb, Anxiety F41.9 and Depression F32.9 [facility] [address] [id number] [address] [place] [id number] Feb, Dental examination Z01.20 [facility] [address] [id number] [address] [place] [phone] Feb, [facility] [address] [facility] [id number] [address] [place] [phone] Feb, [facility] [address] [id number] [address] [place] [phone] Feb, Anxiety F41.9 and Depression F32.9 [place] [address] [id number] [address] [place] [phone] Jan, Severe episode of recurrent major depressive disorder, without psychotic features F33.2 and Anxiety disorder, unspecified F41.9 [place] [address] [id number] [address] [place] [phone] Jan, [place] [address] [address] [facility] [id number] [address] [place] [phone] Dec, [facility] [address] [id number] [address] [place] [phone] Dec, Anxiety F41.9 and Depression F32.9 [place] [address] [address] [facility] [id number] [address] [place] [phone] Dec, Other specified transient ce rebral ischemias G45.8 and Nocturnal hypoxia G47.34 [place] [address] [address] [facility] [id number] [address] [place] [phone] Dec, [facility] [address] [facility] [id number] [address] [place] [phone] 17 Dec, 2015 Other specified transient ce rebral ischemias G45.8 [place] [address] [address] [facility] [id number] [address] [place] [phone] 16 Dec, 2015 Severe episode of recurrent major depressive disorder, without psychotic features F33.2 and Anxiety disorder, unspecified F41.9 [place] [address] [address] [facility] [id number] [address] [place] [phone] Dec, [place] [address] [id number] 13 Dec, 2015 Anxiety F41.9 and Depression F32.9 [place] [address] [id number] 07 Dec, 2015 Anxiety F41.9 and Depression F32.9 [place] [address] [id number] Dec, [place] [address] [id number] November, Anxiety F41.9 and Depression F32.9 [place] [address] [id number] November, Severe episode of recurrent major depressive disorder, without psychotic features F33.2 [place] [address] [address] November, Mixed hyperlipidemia E78.2 [place] [address] [address] November, Anxiety F41.9 and Depression F32.9 [place] [address] [address] November, Prediabetes R73.09 ; Essenti al hypertension I10 ; Anxiety F41.9 ; Depression F32.9 ; Gastroesophageal reflux disease, esophagitis presence not specified K21.9 ; Primary osteoarthritis involving multiple joints M15.0 ; History of renal cell cancer Z85.528 ; Postnasal drip R09.82 ; Allergic rhinitis, unspecified J30.9 and Tobacco use Z72.0 [place] [address] [id number] Oct, Anxiety F41.9 and Depression F32.9 [place] [address] [address] Oct, [place] [address] [id number] 01 Oct, 2015 [facility] [address] [id number] 14 Sep, 2015 Splenic artery aneurysm I72. 8 [facility] [address] [id number] 10 Sep, 2015 Depression F32.9 ; Anxiety F 41.9 ; Chronic prescription benzodiazepine use Z79.899 and Splenic artery aneurysm I72.8 [facility] [address] [address] 10 Sep, 2015 Depression F32.9 and Anxiety F41.9 [facility] [address] [address] 02 Sep, 2015 [facility] [address] [id number] 18 Aug, 2015 Dehydration E86.0 ; Diarrhea R19.7 ; Nausea R11.0 and Generalized abdominal pain R10.84 [facility] [address] [id number] Aug, [facility] [address] [phone] Jul, Depression F32.9 [facility] [address] [address] Jul, [facility] [address] [address] Jul, Anxiety F41.9 and Depression F32.9 [facility] [address] [id number] Jul, [facility] [address] [address] Jun, Epigastric pain R10.13 [facility] [address] [id number] Jun, [facility] [address] [id number] [address] [place] [phone] Jun, [facility] [address] [id number] [address] [place] [phone] May, [facility] [address] [id number] [address] [place] [phone] May, [facility] [address] [id number] [address] [place] [phone] Apr, [facility] [address] [id number] [address] [place] [phone] Mar, Anxiety state, unspecified 3 00.00 ; Depression 311 ; Prediabetes 790.29 ; Generalized osteoarthrosis, involving multiple sites 715.09 and Hypertension 401.9 [facility] [address] [id number] [address] [place] [phone] Mar, [facility] [address] [id number] [address] [place] [phone] Feb, [facility] [address] [id number] [address] [place] [phone] Jan, [facility] [address] [facility] [id number] [address] [place] [phone] Jan, [facility] [address] [id number] [address] [place] [phone] Jan, Generalized osteoarthrosis, involving multiple sites 715.09 [facility] [address] [facility] [id number] [address] [place] [phone] 07 Jan, 2015 Hx of renal cell cancer V10. 52 [facility] [address] [id number] [address] [place] [phone] Dec, Generalized osteoarthrosis, involving multiple sites 715.09 and Hx of renal cell cancer V10.52 [facility] [address] [id number] [address] [place] [phone] Dec, [facility] [address] [id number] [address] [place] [phone] Dec, [facility] [address] [id number] [address] [place] [phone] November, [facility] [address] [id number] [address] [place] [phone] Oct, [facility] [address] [id number] [address] [place] [phone] Oct, [facility] [address] [id number] [address] [place] [phone] Sep, [facility] [address] [id number] [address] [place] [phone] Sep, [facility] [address] [id number] [address] [place] [phone] Sep, [facility] [address] [id number] [address] [place] [phone] Sep, [facility] [address] [id number] [address] [place] [phone] Aug, [facility] [address] [id number] [address] [place] [phone] Aug, IMMUNIZATIONS No Known Immunizations SOCIAL HISTORY Never Assessed REASON FOR VISIT Follow-up Depression/Anxiety PLAN OF CARE Activity Details Follow Up Next available Reason: Fol low-up VITAL SIGNS MEDICATIONS Unknown Medications RESULTS No Results PROCEDURES Procedure Date Ordered Result Body Site Psychotherapy, patient &/family, 30 minutes, established pat ient Apr 17, 2018 INSTRUCTIONS MEDICATIONS ADMINISTERED No Known Medications [...]
--- OUTSIDE RECORDS SUMMARY | 2020-02-08 07:12 | XMS REPORT ---
Author Author Emilee CASSIDY Organization [facility] Address [address] [place] [address] Care Team Providers Care Laborer Tin Can Name Role Phone LOVELY CASSIDY Unavailable PROBLEMS Type Condition ICD9-CM Code [id number] Code Onset Dates Condition S tatus SNOMED Code Problem Mixed hyperlipidemia E78.2 Active 897029223 Problem Fatty liver K76.0 Active 93875532 7 Problem Obstructive sleep apnea G47.33 Active 08699098 Problem Allergic rhinitis, unspecified J30.9 Active 05575922 Problem Essential hypertension I10 Active 55371367 Problem History of renal cell cancer Z85.528 A ctive 843129330 Problem Prediabetes R73.09 Active 1897926 Problem Diastolic dysfunction I51.9 Active 4613497 Problem Body mass index (bmi) 50-59.9 , adult Z68.43 Active 405902544 Problem Paresthesia of both hands R20.2 Acti ve 868973101 Problem 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 Acti ve 216986978 Problem BMI 50.0-59.9, adult Z68.43 Active 796713401 Problem Restrictive lung disease J98.4 Activ e 06692627 Problem Splenic artery aneurysm I72.8 Active 23535127 Problem Liver mass R16.0 Active 613545317 Problem Generalized anxiety disorder F41.1 A ctive 96362274 Problem Major depressive disorder, recurrent episode, mild degree F33.0 Active 415226611 Problem Excoriation, neurotic L98.1 Active 51828001 Problem History of tobacco use Z87.891 Active 2073994353716 Problem Primary osteoarthritis involving multiple joints M 15.0 Active 261375838 Problem Isolated proteinuria without specific morphologic lesion R80.0 Active 90475160 Problem 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 Active 208839713 Problem Pulmonary emphysema, unspecified emphysema type J4 3.9 Active 36536697 Problem Chronic prescription opiate use Z79.899 Active 207025693 Problem Tobacco use Z72.0 Active 52662519 0 Problem Bilateral carpal tunnel syndrome G56.03 Active 41805776 Problem Chronic prescription benzodiazepine use Z79.899 Active 184882406 ALLERGIES No Information ENCOUNTERS Encounter Location Date Diagnosis [facility] [address] [facility] [id number] [address] [place] [phone] Jun, [facility] [address] [facility] [id number] [address] [place] [address] May, [facility] [address] [facility] [id number] [address] [place] [address] May, [facility] [address] [facility] [id number] [address] [place] [phone] May, [facility] [address] [facility] [id number] [address] [place] [phone] 31 Apr, 2018 Generalized anxiety disorder F41.1 and Major depressive disorder, recurrent episode, mild degree F33.0 [facility] [address] [facility] [id number] [address] [place] [address] 15 Apr, 2018 BMI 50.0-59.9, adult Z68.43 and Encounter for weight loss counseling Z71.3 [facility] [address] [facility] [id number] [address] [place] [phone] 03 Apr, 2018 [facility] [address] [facility] [id number] [address] [place] [phone] 20 Mar, 2018 Generalized anxiety disorder F41.1 and Major depressive disorder, recurrent episode, mild degree F33.0 [facility] [address] [facility] [id number] [address] [place] [phone] 18 Mar, 2018 [facility] [address] [facility] [id number] [address] [place] [address] 12 Mar, 2018 Generalized anxiety disorder F41.1 [facility] [address] [facility] [id number] [address] [place] [phone] 10 Mar, 2018 [facility] [address] [facility] [id number] [address] [place] [phone] Feb, Generalized anxiety disorder F41.1 ; Major depressive disorder, recurrent episode, mild degree F33.0 and 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 [facility] [address] [id number] [address] [place] [phone] Feb, Generalized anxiety disorder F41.1 and Major depressive disorder, recurrent episode, mild degree F33.0 [facility] [address] [id number] [address] [place] [address] Feb, [facility] [address] [id number] [address] [place] [address] Feb, Restrictive lung disease J98 .4 ; Pulmonary emphysema, unspecified emphysema type J43.9 and Body mass index (bmi) 50-59.9 , adult Z68.43 [facility] [address] [id number] [address] [place] [address] Feb, Generalized anxiety disorder F41.1 ; Major depressive disorder, recurrent episode, mild degree F33.0 and 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 [facility] [address] [id number] [address] [place] [address] Feb, [facility] [address] [id number] [address] [place] [phone] Jan, [facility] [address] [id number] [address] [place] [phone] Jan, Pulmonary emphysema, unspeci fied emphysema type J43.9 [facility] [address] [id number] [address] [place] [id number] Jan, Dental examination Z01.20 an d Dental caries K02.9 [facility] [address] [id number] [address] [place] [address] Jan, Generalized anxiety disorder F41.1 and Major depressive disorder, recurrent episode, mild degree F33.0 [facility] [address] [id number] [address] [place] [address] Jan, [facility] [id number] [place] [address] Jan, Generalized anxiety disorder F41.1 [facility] [address] [place] [id number] [place] [address] Jan, Oral abscess K12.2 and BMI 5 0.0-59.9, adult Z68.43 [facility] [address] [address] Dec, BMI 50.0-59.9, adult Z68.43 and Weight loss counseling, encounter for Z71.3 [place] [address] [address] Dec, [facility] [address] [address] Dec, [facility] [address] [address] November, [facility] [address] [address] November, [place] [address] [address] November, Pulmonary emphysema, unspeci fied emphysema type J43.9 ; Restrictive lung disease J98.4 ; BMI 50.0-59.9, adult Z68.43 ; History of renal cell cancer Z85.528 ; Essential hypertension I10 ; Mixed hyperlipidemia E78.2 and Fatty liver K76.0 [facility] [address] [place] [id number] [address] [place] [address] November, Generalized anxiety disorder F41.1 [place] [address] [address] November, Generalized anxiety disorder F41.1 and Major depressive disorder, recurrent episode, mild degree F33.0 [facility] [address] [address] November, Generalized anxiety disorder F41.1 ; Major depressive disorder, recurrent episode, mild degree F33.0 and 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 [facility] [address] [address] November, [facility] [address] [place] [id number] [address] [place] [address] Oct, Generalized anxiety disorder F41.1 [facility] [address] [address] Oct, [facility] [address] [place] [id number] [address] [place] [phone] Oct, Influenza-like illness R69 [facility] [address] [place] [id number] [address] [place] [address] Sep, Influenza-like illness R69 [facility] [address] [address] Sep, Generalized anxiety disorder F41.1 [facility] [address] [place] [id number] [address] [place] [address] Sep, [facility] [address] [address] Aug, [facility] [address] [place] [id number] [address] [place] [address] Aug, [facility] [address] [place] [id number] [address] [place] [address] Aug, Generalized anxiety disorder F41.1 [facility] [address] [facility] [id number] [address] [place] [address] Aug, Influenza-like illness R69 a nd BMI 50.0-59.9, adult Z68.43 [facility] [address] [facility] [id number] [address] [place] [address] Jul, Fatty liver K76.0 ; Restrict jean-paul lung disease J98.4 ; Diastolic dysfunction I51.9 ; Body mass index (bmi) 50-59.9 , adult Z68.43 and Chronic prescription opiate use Z79.899 [facility] [address] [facility] [id number] [address] [place] [address] Jul, Generalized anxiety disorder F41.1 [facility] [address] [facility] [id number] [address] [place] [address] Jul, Generalized anxiety disorder F41.1 [facility] [address] [facility] [id number] [address] [place] [address] Jul, 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 [facility] [address] [facility] [id number] [address] [place] [phone] Jun, Generalized anxiety disorder F41.1 [place] [address] [facility] [id number] [address] [place] [address] Jun, [place] [address] [place] [id number] [address] [place] [address] Jun, Mixed hyperlipidemia E78.2 [facility] [address] [facility] [id number] [address] [place] [address] Jun, Generalized anxiety disorder F41.1 [place] [address] [place] [id number] [address] [place] [address] Jun, Generalized anxiety disorder F41.1 ; Major depressive disorder, recurrent episode, mild degree F33.0 and 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 [facility] [address] [facility] [id number] [address] [place] [phone] May, [facility] [address] [facility] [id number] [address] [place] [address] May, Generalized anxiety disorder F41.1 [facility] [address] [facility] [id number] [address] [place] [address] May, Generalized anxiety disorder F41.1 [facility] [address] [facility] [id number] [address] [place] [address] May, 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 [facility] [address] [id number] [address] [place] [phone] 09 Apr, 2017 Major depressive disorder, r ecurrent episode, mild degree F33.0 ; Generalized anxiety disorder F41.1 and Excoriation, neurotic L98.1 [facility] [address] [id number] [address] [place] [address] Apr, 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 [facility] [address] [id number] [address] [place] [address] Apr, Essential hypertension I10 a nd Mixed hyperlipidemia E78.2 [facility] [address] [id number] [address] [place] [address] Apr, Generalized anxiety disorder F41.1 ; Major depressive disorder, recurrent episode, mild degree F33.0 and 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 [facility] [address] [id number] [address] [place] [address] Mar, Generalized anxiety disorder F41.1 ; Major depressive disorder, recurrent episode, mild degree F33.0 and 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 [facility] [address] [id number] [address] [place] [address] Mar, Skin lesion L98.9 [facility] [address] [id number] [address] [place] [address] Mar, 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 [facility] [address] [id number] [address] [place] [address] Mar, [facility] [address] [id number] [address] [place] [address] Mar, [facility] [address] [id number] [address] [place] [address] Feb, Major depressive disorder, r ecurrent episode, mild degree F33.0 ; Generalized anxiety disorder F41.1 and Excoriation, neurotic L98.1 [facility] [address] [facility] [id number] [address] [place] [address] Feb, Generalized anxiety disorder F41.1 [facility] [address] [facility] [id number] [address] [place] [address] Feb, 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 [facility] [address] [facility] [id number] [address] [place] [address] Jan, [facility] [address] [facility] [id number] [address] [place] [address] Jan, Essential hypertension I10 ; Splenic artery aneurysm I72.8 ; Liver mass R16.0 ; Restrictive lung disease J98.4 ; Primary osteoarthritis involving multiple joints M15.0 ; Mixed hyperlipidemia E78.2 ; Bilateral carpal tunnel syndrome G56.03 ; Body mass index (bmi) 50-59.9 , adult Z68.43 and History of tobacco use Z87.891 [place] [address] [place] [id number] [address] [place] [phone] Jan, Major depressive disorder, r ecurrent episode, mild degree F33.0 and Generalized anxiety disorder F41.1 [place] [address] [place] [id number] [address] [place] [address] Jan, [place] [address] [place] [id number] [address] [place] [address] Jan, Generalized anxiety disorder F41.1 and Major depressive disorder, recurrent episode, mild degree F33.0 [facility] [address] [facility] [id number] [address] [place] [address] Dec, 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 [facility] [address] [facility] [id number] [address] [place] [address] Dec, Generalized anxiety disorder F41.1 [facility] [address] [facility] [id number] [address] [place] [address] Dec, [facility] [address] [place] [id number] [address] [place] [address] Dec, Major depressive disorder, r ecurrent episode, mild degree F33.0 and Generalized anxiety disorder F41.1 [place] [address] [address] Dec, Generalized anxiety disorder F41.1 and Major depressive disorder, recurrent episode, mild degree F33.0 [place] [address] [address] November, Mild major depression F32.0 and Primary osteoarthritis involving multiple joints M15.0 [place] [address] [address] November, Major depressive disorder, r ecurrent episode, mild degree F33.0 and Generalized anxiety disorder F41.1 [place] [address] [address] November, 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 ; Essential hypertension I10 ; Prediabetes R73.09 ; Mixed hyperlipidemia E78.2 ; Chronic prescription benzodiazepine use Z79.899 ; Chronic prescription opiate use Z79.899 ; Tobacco use Z72.0 ; Bilateral carpal tunnel syndrome G56.03 and Body mass index (bmi) 50-59.9 , adult Z68.43 [place] [address] [place] [id number] [place] [address] November, 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 and Mild major depression F32.0 [place] [address] [place] [id number] [address] [place] [address] Oct, [place] [address] [address] Oct, 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 ; Essential hypertension I10 ; Prediabetes R73.09 ; Chronic prescription benzodiazepine use Z79.899 ; Chronic prescription opiate use Z79.899 ; Tobacco use Z72.0 ; Mixed hyperlipidemia E78.2 ; Bilateral carpal tunnel syndrome G56.03 ; Body mass index (bmi) 50-59.9 , adult Z68.43 and Encounter for immunization Z23 [facility] [address] [id number] [address] [place] [address] Oct, Major depressive disorder, r ecurrent episode, mild degree F33.0 and Generalized anxiety disorder F41.1 [facility] [address] [id number] [address] [place] [address] Oct, [facility] [address] [id number] [address] [place] [address] Oct, [facility] [address] [id number] [address] [place] [address] Sep, Mild major depression F32.0 [facility] [address] [id number] [address] [place] [address] Sep, [facility] [address] [id number] [address] [place] [address] Sep, Mild major depression F32.0 and Generalized anxiety disorder F41.1 [facility] [address] [id number] [address] [place] [address] Sep, Paresthesia of both hands R2 0.2 and Cervical radiculopathy M54.12 [facility] [address] [id number] [address] [place] [address] Sep, [facility] [address] [id number] [address] [place] [address] Sep, [facility] [address] [id number] [address] [place] [address] Aug, Paresthesia of both hands R2 0.2 and Neck pain M54.2 [facility] [address] [facility] [id number] [address] [place] [address] Aug, [facility] [address] [id number] [address] [place] [address] Jul, Neck pain M54.2 and Paresthe eddie of both hands R20.2 [place] [address] [facility] [id number] [address] [place] [address] Jul, Proteinuria, unspecified typ e R80.9 [facility] [address] [facility] [id number] [address] [place] [address] Jul, Proteinuria, unspecified typ e R80.9 [place] [address] [facility] [id number] [address] [place] [address] Jul, [place] [address] [facility] [id number] [address] [place] [address] Jul, Other specified transient ce rebral ischemias G45.8 [place] [address] [facility] [id number] [address] [place] [address] Jun, Diastolic dysfunction I51.9 [place] [address] [facility] [id number] [address] [place] [address] Jun, Diastolic dysfunction I51.9 [place] [address] [facility] [id number] [address] [place] [address] Jun, Major depressive disorder, s david episode, unspecified F32.9 and Anxiety disorder, unspecified F41.9 [place] [address] [facility] [id number] [address] [place] [address] Jun, [place] [address] [place] [id number] [address] [place] [address] Jun, [place] [address] [facility] [id number] [address] [place] [address] May, Moderate major depression F3 2.1 and Generalized anxiety disorder F41.1 [place] [address] [facility] [id number] [address] [place] [address] May, Major depressive disorder, s david episode, unspecified F32.9 and Anxiety disorder, unspecified F41.9 [place] [address] [facility] [id number] [address] [place] [address] May, [facility] [address] [facility] [id number] [address] [place] [address] 14 May, 2016 Liver enzyme elevation R74.8 [facility] [address] [facility] [id number] [address] [place] [address] 14 May, 2016 Liver enzyme elevation R74.8 [facility] [address] [facility] [id number] [address] [place] [address] 10 May, 2016 Shortness of breath on exert ion R06.02 ; Essential hypertension I10 ; Mixed hyperlipidemia E78.2 and Tobacco use Z72.0 [facility] [address] [facility] [id number] [address] [place] [address] 03 May, 2016 [facility] [address] [facility] [id number] [address] [place] [phone] May, [facility] [address] [place] [id number] [address] [place] [id number] Apr, Anxiety F41.9 and Depression F32.9 [facility] [address] [place] [id number] [address] [place] [phone] Apr, [facility] [address] [place] [id number] [address] [place] [phone] Apr, [facility] [address] [place] [id number] [address] [place] [phone] 22 Mar, 2016 Depression F32.9 and Anxiety F41.9 [facility] [address] [place] [id number] [address] [place] [phone] 08 Mar, 2016 Anxiety F41.9 and Depression F32.9 [facility] [address] [facility] [id number] [address] [place] [id number] 06 Mar, 2016 Well woman exam (no gynecolo gical exam) Z00.00 [facility] [address] [facility] [id number] [address] [place] [phone] 02 Mar, 2016 [facility] [address] [place] [id number] [address] [place] [phone] Mar, [facility] [address] [id number] [address] [place] [id number] Feb, Dental caries K02.9 [facility] [address] [id number] [address] [place] [address] [id number] Feb, [facility] [address] [id number] [address] [place] [phone] Feb, Anxiety F41.9 and Depression F32.9 [facility] [address] [id number] [address] [place] [id number] Feb, Dental examination Z01.20 [facility] [address] [id number] [address] [place] [phone] Feb, [facility] [address] [id number] [address] [place] [phone] Feb, [facility] [address] [id number] [address] [place] [phone] Feb, Anxiety F41.9 and Depression F32.9 [facility] [address] [id number] [address] [place] [phone] Jan, Severe episode of recurrent major depressive disorder, without psychotic features F33.2 and Anxiety disorder, unspecified F41.9 [facility] [address] [id number] [address] [place] [phone] Jan, [facility] [address] [id number] [address] [place] [phone] Dec, [facility] [address] [id number] [address] [place] [phone] Dec, Anxiety F41.9 and Depression F32.9 [facility] [address] [facility] [id number] [address] [place] [phone] Dec, Other specified transient ce rebral ischemias G45.8 and Nocturnal hypoxia G47.34 [facility] [address] [id number] [address] [place] [id number] 18 Dec, 2015 [facility] [address] [id number] [address] [place] [phone] 17 Dec, 2015 Other specified transient ce rebral ischemias G45.8 [facility] [address] [id number] [address] [place] [phone] 16 Dec, 2015 Severe episode of recurrent major depressive disorder, without psychotic features F33.2 and Anxiety disorder, unspecified F41.9 [facility] [address] [id number] [address] [place] [id number] 13 Dec, 2015 [place] [address] [id number] [address] [place] [phone] 13 Dec, 2015 Anxiety F41.9 and Depression F32.9 [place] [address] [facility] [id number] [address] [place] [phone] 07 Dec, 2015 Anxiety F41.9 and Depression F32.9 [place] [address] [facility] [id number] [address] [place] [phone] 03 Dec, 2015 [place] [address] [facility] [id number] [address] [place] [phone] November, Anxiety F41.9 and Depression F32.9 [place] [address] [facility] [id number] [address] [place] [phone] November, Severe episode of recurrent major depressive disorder, without psychotic features F33.2 [place] [address] [facility] [id number] [address] [place] [phone] November, Mixed hyperlipidemia E78.2 [place] [address] [facility] [id number] [address] [place] [phone] November, Anxiety F41.9 and Depression F32.9 [place] [address] [facility] [id number] [address] [place] [id number] 05 Nov, 2015 Prediabetes R73.09 ; Essenti al hypertension I10 ; Anxiety F41.9 ; Depression F32.9 ; Gastroesophageal reflux disease, esophagitis presence not specified K21.9 ; Primary osteoarthritis involving multiple joints M15.0 ; History of renal cell cancer Z85.528 ; Postnasal drip R09.82 ; Allergic rhinitis, unspecified J30.9 and Tobacco use Z72.0 [facility] [address] [phone] 11 Oct, 2015 Anxiety F41.9 and Depression F32.9 [place] [address] [phone] 07 Oct, 2015 [place] [address] [phone] Oct, [place] [address] [address] 14 Sep, 2015 Splenic artery aneurysm I72. 8 [place] [address] [phone] 10 Sep, 2015 Depression F32.9 ; Anxiety F 41.9 ; Chronic prescription benzodiazepine use Z79.899 and Splenic artery aneurysm I72.8 [place] [address] [id number] 10 Sep, 2015 Depression F32.9 and Anxiety F41.9 [place] [address] [address] Sep, [place] [address] [id number] 18 Aug, 2015 Dehydration E86.0 ; Diarrhea R19.7 ; Nausea R11.0 and Generalized abdominal pain R10.84 [place] [address] [address] Aug, [place] [address] [phone] Jul, Depression F32.9 [place] [address] [phone] Jul, [place] [address] [id number] [address] [place] [phone] Jul, Anxiety F41.9 and Depression F32.9 [facility] [address] [facility] [id number] [address] [place] [phone] Jul, [facility] [address] [facility] [id number] [address] [place] [phone] Jun, Epigastric pain R10.13 [facility] [address] [id number] [address] [place] [phone] Jun, [facility] [address] [id number] [address] [place] [phone] Jun, [facility] [address] [facility] [id number] [address] [place] [phone] May, [facility] [address] [facility] [id number] [address] [place] [phone] May, [facility] [address] [facility] [id number] [address] [place] [phone] Apr, [facility] [address] [facility] [id number] [address] [place] [phone] Mar, Anxiety state, unspecified 3 00.00 ; Depression 311 ; Prediabetes 790.29 ; Generalized osteoarthrosis, involving multiple sites 715.09 and Hypertension 401.9 [facility] [address] [facility] [id number] [address] [place] [phone] Mar, [facility] [address] [facility] [id number] [address] [place] [phone] Feb, [facility] [address] [facility] [id number] [address] [place] [phone] Jan, [facility] [address] [facility] [id number] [address] [place] [phone] Jan, [facility] [address] [facility] [id number] [address] [place] [phone] Jan, Generalized osteoarthrosis, involving multiple sites 715.09 [facility] [address] [id number] [address] [place] [phone] 07 Jan, 2015 Hx of renal cell cancer V10. 52 [facility] [address] [id number] [address] [place] [phone] 30 Dec, 2014 Generalized osteoarthrosis, involving multiple sites 715.09 and Hx of renal cell cancer V10.52 [facility] [address] [id number] [address] [place] [phone] 24 Dec, 2014 [facility] [address] [id number] [address] [place] [phone] Dec, [facility] [address] [id number] [address] [place] [phone] November, [facility] [address] [id number] [address] [place] [phone] Oct, [facility] [address] [id number] [address] [place] [phone] Oct, [facility] [address] [id number] [address] [place] [phone] Sep, [facility] [address] [id number] [address] [place] [phone] Sep, [facility] [address] [id number] [address] [place] [phone] Sep, [facility] [address] [id number] [address] [place] [phone] Sep, [facility] [address] [id number] [address] [place] [phone] Aug, [facility] [address] [id number] [address] [place] [phone] Aug, IMMUNIZATIONS No Known Immunizations SOCIAL HISTORY Never Assessed REASON FOR VISIT Follow-up Depression/Anxiety PLAN OF CARE Activity Details Follow Up Next available Reason: Fol low-up VITAL SIGNS MEDICATIONS Unknown Medications RESULTS No Results PROCEDURES Procedure Date Ordered Result Body Site Psychotherapy, patient &/family, 30 minutes, established patient May 28, 2018 INSTRUCTIONS MEDICATIONS ADMINISTERED No Known Medications [...]
--- OUTSIDE RECORDS SUMMARY | 2020-02-08 07:12 | XMS REPORT ---
Author Author Emilee NO Organization [facility] Address [address] [place] [address] Care Team Providers Care Post Exchange Manager Name Role Phone NOEALGIGI Unavailable PROBLEMS Type Condition ICD9-CM Code DSA54-YU Code Onset Dates Condition S tatus SNOMED Code Problem Mixed hyperlipidemia E78.2 Active 671783123 Problem Fatty liver K76.0 Active 64480827 7 Problem Obstructive sleep apnea G47.33 Active 61609782 Problem Allergic rhinitis, unspecified J30.9 Active 90048597 Problem Essential hypertension I10 Active 76446839 Problem History of renal cell cancer Z85.528 A ctive 985125565 Problem Prediabetes R73.09 Active 8625123 Problem Diastolic dysfunction I51.9 Active 0437979 Problem Body mass index (bmi) 50-59.9 , adult Z68.43 Active 389789198 Problem Paresthesia of both hands R20.2 Acti ve 185986304 Problem 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 Acti ve 912638420 Problem BMI 50.0-59.9, adult Z68.43 Active 796447579 Problem Restrictive lung disease J98.4 Activ e 70220595 Problem Splenic artery aneurysm I72.8 Active 42904981 Problem Liver mass R16.0 Active 496248589 Problem Generalized anxiety disorder F41.1 A ctive 04162710 Problem Major depressive disorder, recurrent episode, mild degree F33.0 Active 630130222 Problem Excoriation, neurotic L98.1 Active 49311420 Problem History of tobacco use Z87.891 Active 9926940288224 Problem Primary osteoarthritis involving multiple joints M 15.0 Active 756500614 Problem Isolated proteinuria without specific morphologic lesion R80.0 Active 23552625 Problem 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 Active 379473610 Problem Pulmonary emphysema, unspecified emphysema type J4 3.9 Active 91236728 Problem Chronic prescription opiate use Z79.899 Active 405310986 Problem Tobacco use Z72.0 Active 43765995 0 Problem Bilateral carpal tunnel syndrome G56.03 Active 32091151 Problem Chronic prescription benzodiazepine use Z79.899 Active 182999442 ALLERGIES No Information ENCOUNTERS Encounter Location Date Diagnosis [facility] [address] [id number] [address] [place] [id number] 07 May, 2018 [facility] [address] [facility] [id number] [address] [place] [id number] 31 Apr, 2018 [facility] [address] [id number] [address] [place] [phone] Apr, [facility] [address] [facility] [id number] [address] [place] [id number] 20 Mar, 2018 Generalized anxiety disorder F41.1 and Major depressive disorder, recurrent episode, mild degree F33.0 [facility] [address] [facility] [id number] [address] [place] [id number] 18 Mar, 2018 [facility] [address] [facility] [id number] [address] [place] [id number] 12 Mar, 2018 Generalized anxiety disorder F41.1 [facility] [address] [facility] [id number] [address] [place] [id number] 10 Mar, 2018 [facility] [address] [facility] [id number] [address] [place] [id number] 14 Feb, 2018 Generalized anxiety disorder F41.1 ; Major depressive disorder, recurrent episode, mild degree F33.0 and 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 [facility] [address] [id number] [address] [place] [id number] 13 Feb, 2018 Generalized anxiety disorder F41.1 and Major depressive disorder, recurrent episode, mild degree F33.0 [facility] [address] [facility] [id number] [address] [place] [phone] Feb, [facility] [address] [facility] [id number] [address] [place] [phone] Feb, Restrictive lung disease J98 .4 ; Pulmonary emphysema, unspecified emphysema type J43.9 and Body mass index (bmi) 50-59.9 , adult Z68.43 [facility] [address] [facility] [id number] [address] [place] [id number] Feb, Generalized anxiety disorder F41.1 ; Major depressive disorder, recurrent episode, mild degree F33.0 and 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 [facility] [address] [facility] [id number] [address] [place] [phone] Feb, [facility] [address] [facility] [id number] [address] [place] [id number] Jan, [place] [address] [facility] [id number] [place] [id number] Jan, Pulmonary emphysema, unspeci fied emphysema type J43.9 [facility] [address] [id number] [address] [place] [id number] Jan, Dental examination Z01.20 an d Dental caries K02.9 [facility] [address] [facility] [id number] [address] [place] [id number] Jan, Generalized anxiety disorder F41.1 and Major depressive disorder, recurrent episode, mild degree F33.0 [facility] [address] [facility] [id number] [address] [place] [phone] Jan, [facility] [address] [facility] [id number] [address] [place] [id number] Jan, Generalized anxiety disorder F41.1 [facility] [address] [facility] [id number] [address] [place] [id number] Jan, Oral abscess K12.2 and BMI 5 0.0-59.9, adult Z68.43 [place] [address] [facility] [id number] [address] [place] [id number] Dec, 2018 BMI 50.0-59.9, adult Z68.43 and Weight loss counseling, encounter for Z71.3 [place] [address] [facility] [id number] [address] [place] [phone] Dec, [facility] [address] [facility] [id number] [address] [place] [phone] Dec, [facility] [address] [facility] [id number] [address] [place] [phone] November, [facility] [address] [facility] [id number] [address] [place] [phone] November, [facility] [address] [place] [id number] [address] [place] [id number] November, Pulmonary emphysema, unspeci fied emphysema type J43.9 ; Restrictive lung disease J98.4 ; BMI 50.0-59.9, adult Z68.43 ; History of renal cell cancer Z85.528 ; Essential hypertension I10 ; Mixed hyperlipidemia E78.2 and Fatty liver K76.0 [place] [address] [place] [id number] [address] [place] [id number] November, Generalized anxiety disorder F41.1 [facility] [address] [place] [id number] [address] [place] [id number] November, Generalized anxiety disorder F41.1 and Major depressive disorder, recurrent episode, mild degree F33.0 [place] [address] [place] [id number] [address] [place] [phone] November, Generalized anxiety disorder F41.1 ; Major depressive disorder, recurrent episode, mild degree F33.0 and 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 [facility] [address] [facility] [id number] [address] [place] [phone] November, [facility] [address] [facility] [id number] [address] [place] [id number] Oct, Generalized anxiety disorder F41.1 [facility] [address] [facility] [id number] [address] [place] [phone] Oct, [facility] [address] [facility] [id number] [address] [place] [phone] Oct, Influenza-like illness R69 [facility] [address] [place] [id number] Sep, Influenza-like illness R69 [facility] [address] [place] [id number] [address] [place] [phone] Sep, Generalized anxiety disorder F41.1 [facility] [address] [place] [id number] [address] [place] [phone] Sep, [facility] [address] [address] Aug, [facility] [address] [id number] Aug, [facility] [address] [address] Aug, Generalized anxiety disorder F41.1 [facility] [address] [place] [id number] [address] [place] [address] Aug, Influenza-like illness R69 a nd BMI 50.0-59.9, adult Z68.43 [facility] [address] [address] Jul, Fatty liver K76.0 ; Restrict jean-paul lung disease J98.4 ; Diastolic dysfunction I51.9 ; Body mass index (bmi) 50-59.9 , adult Z68.43 and Chronic prescription opiate use Z79.899 [facility] [address] [place] [id number] Jul, Generalized anxiety disorder F41.1 [facility] [address] [place] [id number] Jul, Generalized anxiety disorder F41.1 [facility] [address] [place] [id number] [address] [place] [id number] Jul, 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 [facility] [address] [place] [id number] [address] [place] [id number] Jun, Generalized anxiety disorder F41.1 [facility] [address] [id number] [address] [place] [phone] Jun, [facility] [address] [facility] [id number] [address] [employer] [place] [address] Jun, Mixed hyperlipidemia E78.2 [facility] [address] [id number] [address] [place] [phone] Jun, Generalized anxiety disorder F41.1 [facility] [address] [id number] [address] [place] [phone] Jun, Generalized anxiety disorder F41.1 ; Major depressive disorder, recurrent episode, mild degree F33.0 and 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 [facility] [address] [facility] [id number] [address] [place] [id number] May, [facility] [address] [id number] [address] [place] [phone] May, Generalized anxiety disorder F41.1 [facility] [address] [id number] [address] [place] [id number] May, Generalized anxiety disorder F41.1 [facility] [address] [id number] [address] [place] [id number] May, 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 [facility] [address] [id number] [address] [place] [id number] Apr, Major depressive disorder, r ecurrent episode, mild degree F33.0 ; Generalized anxiety disorder F41.1 and Excoriation, neurotic L98.1 [facility] [address] [id number] [address] [place] [id number] Apr, 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 [facility] [address] [facility] [id number] [address] [place] [id number] Apr, Essential hypertension I10 a nd Mixed hyperlipidemia E78.2 [facility] [address] [id number] [address] [place] [id number] Apr, Generalized anxiety disorder F41.1 ; Major depressive disorder, recurrent episode, mild degree F33.0 and 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 [facility] [address] [id number] [address] [place] [id number] 06 Mar, 2017 Generalized anxiety disorder F41.1 ; Major depressive disorder, recurrent episode, mild degree F33.0 and 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 [facility] [address] [id number] [address] [place] [address] Mar, Skin lesion L98.9 [facility] [address] [id number] [address] [place] [id number] Mar, 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 [facility] [address] [id number] [address] [place] [phone] Mar, [facility] [address] [id number] [address] [place] [id number] Mar, [facility] [address] [id number] [address] [place] [id number] Feb, Major depressive disorder, r ecurrent episode, mild degree F33.0 ; Generalized anxiety disorder F41.1 and Excoriation, neurotic L98.1 [facility] [address] [id number] [address] [place] [address] Feb, Generalized anxiety disorder F41.1 [facility] [address] [id number] [address] [place] [id number] Feb, 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 [facility] [address] [id number] [address] [place] [id number] Jan, [facility] [address] [id number] [address] [place] [phone] Jan, Essential hypertension I10 ; Splenic artery aneurysm I72.8 ; Liver mass R16.0 ; Restrictive lung disease J98.4 ; Primary osteoarthritis involving multiple joints M15.0 ; Mixed hyperlipidemia E78.2 ; Bilateral carpal tunnel syndrome G56.03 ; Body mass index (bmi) 50-59.9 , adult Z68.43 and History of tobacco use Z87.891 [facility] [address] [id number] [address] [place] [id number] Jan, Major depressive disorder, r ecurrent episode, mild degree F33.0 and Generalized anxiety disorder F41.1 [facility] [address] [id number] [address] [place] [id number] Jan, [facility] [address] [id number] [address] [place] [id number] Jan, Generalized anxiety disorder F41.1 and Major depressive disorder, recurrent episode, mild degree F33.0 [facility] [address] [id number] [address] [place] [id number] Dec, 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 [facility] [address] [id number] [address] [place] [id number] Dec, Generalized anxiety disorder F41.1 [facility] [address] [id number] [address] [place] [id number] Dec, [facility] [address] [id number] [address] [place] [id number] Dec, Major depressive disorder, r ecurrent episode, mild degree F33.0 and Generalized anxiety disorder F41.1 [facility] [address] [id number] [address] [place] [id number] Dec, Generalized anxiety disorder F41.1 and Major depressive disorder, recurrent episode, mild degree F33.0 [facility] [address] [id number] [address] [place] [id number] November, Mild major depression F32.0 and Primary osteoarthritis involving multiple joints M15.0 [facility] [address] [id number] [address] [place] [id number] November, Major depressive disorder, r ecurrent episode, mild degree F33.0 and Generalized anxiety disorder F41.1 [place] [address] [id number] November, 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 ; Essential hypertension I10 ; Prediabetes R73.09 ; Mixed hyperlipidemia E78.2 ; Chronic prescription benzodiazepine use Z79.899 ; Chronic prescription opiate use Z79.899 ; Tobacco use Z72.0 ; Bilateral carpal tunnel syndrome G56.03 and Body mass index (bmi) 50-59.9 , adult Z68.43 [place] [address] [address] November, 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 and Mild major depression F32.0 [place] [address] [address] Oct, [place] [address] [address] Oct, 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 ; Essential hypertension I10 ; Prediabetes R73.09 ; Chronic prescription benzodiazepine use Z79.899 ; Chronic prescription opiate use Z79.899 ; Tobacco use Z72.0 ; Mixed hyperlipidemia E78.2 ; Bilateral carpal tunnel syndrome G56.03 ; Body mass index (bmi) 50-59.9 , adult Z68.43 and Encounter for immunization Z23 [place] [address] [place] [id number] [address] [place] [address] Oct, Major depressive disorder, r ecurrent episode, mild degree F33.0 and Generalized anxiety disorder F41.1 [place] [address] [address] Oct, [place] [address] [id number] Oct, [place] [address] [address] Sep, Mild major depression F32.0 [facility] [address] [facility] [id number] [address] [place] [phone] Sep, [facility] [address] [facility] [id number] [address] [place] [phone] Sep, Mild major depression F32.0 and Generalized anxiety disorder F41.1 [facility] [address] [facility] [id number] [address] [place] [id number] Sep, Paresthesia of both hands R2 0.2 and Cervical radiculopathy M54.12 [facility] [address] [facility] [id number] [address] [place] [id number] Sep, [facility] [address] [facility] [id number] [address] [place] [id number] Sep, [facility] [address] [facility] [id number] [address] [place] [id number] Aug, Paresthesia of both hands R2 0.2 and Neck pain M54.2 [facility] [address] [facility] [id number] [address] [place] [id number] Aug, [facility] [address] [facility] [id number] [address] [place] [id number] Jul, Neck pain M54.2 and Paresthe eddie of both hands R20.2 [facility] [address] [facility] [id number] [address] [place] [id number] Jul, Proteinuria, unspecified typ e R80.9 [facility] [address] [facility] [id number] [address] [place] [address] Jul, Proteinuria, unspecified typ e R80.9 [facility] [address] [facility] [id number] [address] [place] [id number] Jul, [facility] [address] [facility] [id number] [address] [place] [id number] Jul, Other specified transient ce rebral ischemias G45.8 [facility] [address] [facility] [id number] [address] [place] [id number] 12 Jun, 2016 Diastolic dysfunction I51.9 [facility] [address] [facility] [id number] [address] [place] [id number] 08 Jun, 2016 Diastolic dysfunction I51.9 [facility] [address] [facility] [id number] [address] [place] [id number] Jun, Major depressive disorder, s david episode, unspecified F32.9 and Anxiety disorder, unspecified F41.9 [facility] [address] [facility] [id number] [address] [place] [phone] Jun, [place] [address] [facility] [id number] [address] [place] [id number] Jun, [place] [address] [place] [id number] [address] [place] [address] May, Moderate major depression F3 2.1 and Generalized anxiety disorder F41.1 [place] [address] [facility] [id number] [address] [place] [address] 16 May, 2016 Major depressive disorder, s david episode, unspecified F32.9 and Anxiety disorder, unspecified F41.9 [place] [address] [facility] [id number] [address] [place] [id number] 15 May, 2016 [place] [address] [facility] [id number] [address] [place] [id number] 14 May, 2016 Liver enzyme elevation R74.8 [place] [address] [place] [id number] [address] [place] [id number] 14 May, 2016 Liver enzyme elevation R74.8 [place] [address] [place] [id number] [address] [place] [id number] 10 May, 2016 Shortness of breath on exert ion R06.02 ; Essential hypertension I10 ; Mixed hyperlipidemia E78.2 and Tobacco use Z72.0 [place] [address] [place] [id number] [address] [place] [phone] May, [facility] [address] [id number] [address] [place] [phone] May, [facility] [address] [id number] [address] [place] [address] Apr, Anxiety F41.9 and Depression F32.9 [facility] [address] [id number] [address] [place] [id number] Apr, [facility] [address] [id number] [address] [place] [id number] Apr, [facility] [address] [id number] [address] [place] [address] Mar, Depression F32.9 and Anxiety F41.9 [facility] [address] [id number] [address] [place] [id number] Mar, Anxiety F41.9 and Depression F32.9 [facility] [address] [id number] [address] [place] [address] Mar, Well woman exam (no gynecolo gical exam) Z00.00 [facility] [address] [id number] [address] [place] [id number] Mar, [facility] [address] [id number] [address] [place] [id number] Mar, [facility] [address] [id number] [address] [place] [id number] Feb, Dental caries K02.9 [facility] [address] [id number] [address] [place] [id number] Feb, [facility] [address] [id number] [address] [place] [id number] Feb, Anxiety F41.9 and Depression F32.9 [facility] [address] [id number] [address] [place] [id number] Feb, Dental examination Z01.20 [facility] [address] [id number] [address] [place] [id number] Feb, [facility] [address] [id number] [address] [place] [id number] Feb, [facility] [address] [id number] [address] [place] [id number] Feb, Anxiety F41.9 and Depression F32.9 [facility] [address] [id number] [address] [place] [id number] Jan, Severe episode of recurrent major depressive disorder, without psychotic features F33.2 and Anxiety disorder, unspecified F41.9 [facility] [address] [id number] [address] [place] [id number] Jan, [facility] [address] [id number] [address] [place] [id number] Dec, [facility] [address] [id number] [address] [place] [id number] Dec, Anxiety F41.9 and Depression F32.9 [facility] [address] [id number] [address] [place] [id number] Dec, Other specified transient ce rebral ischemias G45.8 and Nocturnal hypoxia G47.34 [facility] [address] [id number] [address] [place] [id number] Dec, [facility] [address] [id number] [address] [place] [id number] Dec, Other specified transient ce rebral ischemias G45.8 [facility] [address] [id number] [address] [place] [id number] 16 Dec, 2015 Severe episode of recurrent major depressive disorder, without psychotic features F33.2 and Anxiety disorder, unspecified F41.9 [facility] [address] [id number] [address] [place] [id number] 13 Dec, 2015 [facility] [address] [id number] [address] [place] [id number] 13 Dec, 2015 Anxiety F41.9 and Depression F32.9 [facility] [address] [facility] [id number] [address] [place] [id number] Dec, Anxiety F41.9 and Depression F32.9 [facility] [address] [facility] [id number] [address] [place] [id number] Dec, [facility] [address] [place] [id number] [place] [phone] November, Anxiety F41.9 and Depression F32.9 [place] [address] [place] [id number] [address] [place] [phone] November, Severe episode of recurrent major depressive disorder, without psychotic features F33.2 [place] [address] [place] [id number] [address] [place] [phone] November, Mixed hyperlipidemia E78.2 [place] [address] [place] [id number] [address] [place] [phone] November, Anxiety F41.9 and Depression F32.9 [place] [id number] [place] [phone] November, Prediabetes R73.09 ; Essenti al hypertension I10 ; Anxiety F41.9 ; Depression F32.9 ; Gastroesophageal reflux disease, esophagitis presence not specified K21.9 ; Primary osteoarthritis involving multiple joints M15.0 ; History of renal cell cancer Z85.528 ; Postnasal drip R09.82 ; Allergic rhinitis, unspecified J30.9 and Tobacco use Z72.0 [place] [id number] [place] [id number] [address] [place] [phone] Oct, Anxiety F41.9 and Depression F32.9 [place] [address] [place] [id number] [address] [place] [phone] Oct, [place] [address] [place] [id number] [address] [place] [phone] Oct, [place] [address] [place] [id number] [address] [place] [id number] 14 Sep, 2015 Splenic artery aneurysm I72. 8 [facility] [address] [phone] 10 Sep, 2015 Depression F32.9 ; Anxiety F 41.9 ; Chronic prescription benzodiazepine use Z79.899 and Splenic artery aneurysm I72.8 [facility] [address] [address] 10 Sep, 2015 Depression F32.9 and Anxiety F41.9 [facility] [address] [address] 02 Sep, 2015 [facility] [address] [id number] 18 Aug, 2015 Dehydration E86.0 ; Diarrhea R19.7 ; Nausea R11.0 and Generalized abdominal pain R10.84 [place] [address] [phone] Aug, [facility] [address] [phone] Jul, Depression F32.9 [facility] [address] [place] [id number] [place] [address] Jul, [facility] [address] [place] [id number] [address] [place] [phone] Jul, Anxiety F41.9 and Depression F32.9 [facility] [address] [place] [id number] [address] [place] [id number] Jul, [facility] [address] [place] [id number] [address] [place] [phone] Jun, Epigastric pain R10.13 [facility] [address] [place] [id number] [address] [place] [phone] Jun, [facility] [address] [address] Jun, [facility] [address] [id number] [address] [place] [id number] May, [facility] [address] [id number] [address] [place] [phone] May, [facility] [address] [facility] [id number] [address] [place] [phone] Apr, [facility] [address] [facility] [id number] [address] [place] [id number] Mar, Anxiety state, unspecified 3 00.00 ; Depression 311 ; Prediabetes 790.29 ; Generalized osteoarthrosis, involving multiple sites 715.09 and Hypertension 401.9 [facility] [address] [facility] [id number] [address] [place] [phone] Mar, [facility] [address] [facility] [id number] [address] [place] [phone] Feb, [facility] [address] [facility] [id number] [address] [place] [phone] Jan, [facility] [address] [id number] [address] [place] [id number] Jan, [facility] [address] [facility] [id number] [address] [place] [phone] Jan, Generalized osteoarthrosis, involving multiple sites 715.09 [facility] [address] [facility] [id number] [address] [place] [phone] Jan, Hx of renal cell cancer V10. 52 [facility] [address] [facility] [id number] [address] [place] [phone] Dec, Generalized osteoarthrosis, involving multiple sites 715.09 and Hx of renal cell cancer V10.52 [facility] [address] [id number] [address] [place] [phone] Dec, [facility] [address] [facility] [id number] [address] [place] [phone] Dec, [facility] [address] [id number] [address] [place] [phone] November, [facility] [address] [id number] [address] [place] [phone] Oct, [facility] [address] [id number] [address] [place] [phone] Oct, [facility] [address] [id number] [address] [place] [phone] Sep, [facility] [address] [id number] [address] [place] [phone] Sep, [facility] [address] [id number] [address] [place] [phone] Sep, [facility] [address] [id number] [address] [place] [id number] Sep, [facility] [address] [id number] [address] [place] [phone] Aug, [facility] [address] [id number] [address] [place] [phone] Aug, IMMUNIZATIONS No Known Immunizations SOCIAL HISTORY Never Assessed REASON FOR VISIT PLAN OF CARE VITAL SIGNS MEDICATIONS Medication Instructions Dosage Frequency Start Date End Date Duration S tatus Cymbalta 60 mg Orally Once a day 1 capsule 24h Mar, 30 day(s) Active Duloxetine HCl 30 MG Orally Once a day 1 capsule 24h 30 Active RESULTS No Results PROCEDURES No Known [...]
--- OUTSIDE RECORDS SUMMARY | 2020-02-08 07:12 | XMS REPORT ---
Author Author Emilee DUNCAN Organization [facility] Address [address] [place] [address] Care Team Providers Care Fuel Agent Name Role Phone BLOSSOM DUNCAN Unavailable PROBLEMS Type Condition ICD9-CM Code ILX13-CJ Code Onset Dates Condition S tatus SNOMED Code Problem Mixed hyperlipidemia E78.2 Active 600562979 Problem Fatty liver K76.0 Active 54959516 7 Problem Obstructive sleep apnea G47.33 Active 25825216 Problem Allergic rhinitis, unspecified J30.9 Active 86976801 Problem Essential hypertension I10 Active 44950131 Problem History of renal cell cancer Z85.528 A ctive 427648644 Problem Prediabetes R73.09 Active 3140928 Problem Diastolic dysfunction I51.9 Active 4870965 Problem Body mass index (bmi) 50-59.9 , adult Z68.43 Active 083220020 Problem Paresthesia of both hands R20.2 Acti ve 749066388 Problem 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 Acti ve 833276795 Problem BMI 50.0-59.9, adult Z68.43 Active 652571364 Problem Restrictive lung disease J98.4 Activ e 64273087 Problem Splenic artery aneurysm I72.8 Active 19076230 Problem Liver mass R16.0 Active 616400396 Problem Generalized anxiety disorder F41.1 A ctive 60010684 Problem Major depressive disorder, recurrent episode, mild degree F33.0 Active 237324087 Problem Excoriation, neurotic L98.1 Active 12618930 Problem History of tobacco use Z87.891 Active 9356923472425 Problem Primary osteoarthritis involving multiple joints M 15.0 Active 705724320 Problem Isolated proteinuria without specific morphologic lesion R80.0 Active 50653061 Problem 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 Active 331303186 Problem Pulmonary emphysema, unspecified emphysema type J4 3.9 Active 58962953 Problem Chronic prescription opiate use Z79.899 Active 372277174 Problem Tobacco use Z72.0 Active 72774160 0 Problem Bilateral carpal tunnel syndrome G56.03 Active 61443690 Problem Chronic prescription benzodiazepine use Z79.899 Active 241567398 ALLERGIES No Information ENCOUNTERS Encounter Location Date Diagnosis [facility] [address] [id number] [address] [place] [address] May, [facility] [address] [id number] [address] [place] [address] Apr, [facility] [address] [id number] [address] [place] [address] 15 Apr, 2018 [facility] [address] [id number] [address] [place] [address] Apr, [facility] [address] [id number] [address] [place] [address] 20 Mar, 2018 Generalized anxiety disorder F41.1 and Major depressive disorder, recurrent episode, mild degree F33.0 [facility] [address] [id number] [address] [place] [address] 18 Mar, 2018 [facility] [address] [id number] [address] [place] [address] 12 Mar, 2018 Generalized anxiety disorder F41.1 [facility] [address] [id number] [address] [place] [address] 10 Mar, 2018 [facility] [address] [id number] [address] [place] [address] 14 Feb, 2018 Generalized anxiety disorder F41.1 ; Major depressive disorder, recurrent episode, mild degree F33.0 and 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 [facility] [address] [id number] [address] [place] [address] Feb, Generalized anxiety disorder F41.1 and Major depressive disorder, recurrent episode, mild degree F33.0 [facility] [address] [id number] [address] [place] [address] Feb, [facility] [address] [id number] [address] [place] [address] Feb, Restrictive lung disease J98 .4 ; Pulmonary emphysema, unspecified emphysema type J43.9 and Body mass index (bmi) 50-59.9 , adult Z68.43 [facility] [address] [facility] [id number] [address] [place] [address] Feb, Generalized anxiety disorder F41.1 ; Major depressive disorder, recurrent episode, mild degree F33.0 and 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 [facility] [address] [id number] [address] [place] [address] Feb, [facility] [address] [facility] [id number] [address] [place] [address] Jan, [facility] [address] [facility] [id number] [address] [place] [address] Jan, Pulmonary emphysema, unspeci fied emphysema type J43.9 [facility] [address] [id number] [address] [place] [address] [id number] Jan, Dental examination Z01.20 an d Dental caries K02.9 [facility] [address] [facility] [id number] [address] [place] [address] Jan, Generalized anxiety disorder F41.1 and Major depressive disorder, recurrent episode, mild degree F33.0 [facility] [address] [facility] [id number] [address] [place] [address] Jan, [facility] [address] [facility] [id number] [address] [place] [address] Jan, Generalized anxiety disorder F41.1 [facility] [address] [facility] [id number] [address] [place] [address] Jan, Oral abscess K12.2 and BMI 5 0.0-59.9, adult Z68.43 [facility] [address] [facility] [id number] [address] [place] [address] Dec, 2018 BMI 50.0-59.9, adult Z68.43 and Weight loss counseling, encounter for Z71.3 [facility] [address] [facility] [id number] [address] [place] [address] Dec, [facility] [address] [place] [id number] [address] [place] [address] Dec, [facility] [address] [id number] [address] [place] [address] November, [facility] [address] [id number] [address] [place] [address] November, [facility] [address] [place] [id number] [address] [place] [address] November, Pulmonary emphysema, unspeci fied emphysema type J43.9 ; Restrictive lung disease J98.4 ; BMI 50.0-59.9, adult Z68.43 ; History of renal cell cancer Z85.528 ; Essential hypertension I10 ; Mixed hyperlipidemia E78.2 and Fatty liver K76.0 [facility] [address] [place] [id number] [address] [place] [address] November, Generalized anxiety disorder F41.1 [facility] [address] [place] [id number] [address] [place] [address] November, Generalized anxiety disorder F41.1 and Major depressive disorder, recurrent episode, mild degree F33.0 [facility] [address] [place] [id number] [address] [place] [address] November, Generalized anxiety disorder F41.1 ; Major depressive disorder, recurrent episode, mild degree F33.0 and 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 [facility] [address] [facility] [id number] [address] [place] [address] November, [facility] [address] [place] [id number] [address] [place] [address] Oct, Generalized anxiety disorder F41.1 [facility] [address] [place] [id number] [address] [place] [address] Oct, [facility] [address] [facility] [id number] [address] [place] [address] Oct, Influenza-like illness R69 [facility] [address] [address] Sep, Influenza-like illness R69 [facility] [address] [place] [id number] [address] [place] [address] Sep, Generalized anxiety disorder F41.1 [facility] [address] [place] [id number] [address] [place] [address] Sep, [facility] [address] [facility] [id number] [place] [address] Aug, [facility] [address] [address] Aug, [facility] [address] [address] Aug, Generalized anxiety disorder F41.1 [facility] [address] [id number] [address] [place] [address] Aug, Influenza-like illness R69 a nd BMI 50.0-59.9, adult Z68.43 [facility] [address] [place] [id number] [address] [place] [address] Jul, Fatty liver K76.0 ; Restrict jean-paul lung disease J98.4 ; Diastolic dysfunction I51.9 ; Body mass index (bmi) 50-59.9 , adult Z68.43 and Chronic prescription opiate use Z79.899 [facility] [address] [place] [id number] [address] [place] [address] Jul, Generalized anxiety disorder F41.1 [facility] [address] [id number] [address] [place] [address] Jul, Generalized anxiety disorder F41.1 [facility] [address] [id number] [address] [place] [address] 04 Sudhakar, 2018 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 [facility] [address] [id number] [address] [place] [address] Jun, Generalized anxiety disorder F41.1 [facility] [address] [id number] [address] [place] [address] Jun, [facility] [address] [id number] [address] [place] [address] Jun, Mixed hyperlipidemia E78.2 [facility] [address] [id number] [address] [place] [address] Jun, Generalized anxiety disorder F41.1 [facility] [address] [id number] [address] [place] [address] Jun, Generalized anxiety disorder F41.1 ; Major depressive disorder, recurrent episode, mild degree F33.0 and 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 [facility] [address] [id number] [address] [place] [address] May, [facility] [address] [id number] [address] [place] [address] May, Generalized anxiety disorder F41.1 [facility] [address] [id number] [address] [place] [address] May, Generalized anxiety disorder F41.1 [facility] [address] [id number] [address] [place] [address] May, 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 [facility] [address] [id number] [address] [place] [address] Apr, Major depressive disorder, r ecurrent episode, mild degree F33.0 ; Generalized anxiety disorder F41.1 and Excoriation, neurotic L98.1 [facility] [address] [id number] [address] [place] [address] Apr, 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 [facility] [address] [id number] [address] [place] [address] Apr, Essential hypertension I10 a nd Mixed hyperlipidemia E78.2 [facility] [address] [id number] [address] [place] [address] Apr, Generalized anxiety disorder F41.1 ; Major depressive disorder, recurrent episode, mild degree F33.0 and 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 [facility] [address] [id number] [address] [place] [address] Mar, Generalized anxiety disorder F41.1 ; Major depressive disorder, recurrent episode, mild degree F33.0 and 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 [facility] [address] [id number] [address] [place] [address] Mar, Skin lesion L98.9 [facility] [address] [id number] [address] [place] [address] Mar, 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 [facility] [address] [id number] [address] [place] [address] Mar, [facility] [address] [id number] [address] [place] [address] Mar, [facility] [address] [id number] [address] [place] [address] Feb, Major depressive disorder, r ecurrent episode, mild degree F33.0 ; Generalized anxiety disorder F41.1 and Excoriation, neurotic L98.1 [facility] [address] [id number] [address] [place] [address] Feb, Generalized anxiety disorder F41.1 [facility] [address] [id number] [address] [place] [address] Feb, 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 [facility] [address] [id number] [address] [place] [address] Jan, [facility] [address] [id number] [address] [place] [address] Jan, Essential hypertension I10 ; Splenic artery aneurysm I72.8 ; Liver mass R16.0 ; Restrictive lung disease J98.4 ; Primary osteoarthritis involving multiple joints M15.0 ; Mixed hyperlipidemia E78.2 ; Bilateral carpal tunnel syndrome G56.03 ; Body mass index (bmi) 50-59.9 , adult Z68.43 and History of tobacco use Z87.891 [facility] [address] [id number] [address] [place] [address] Jan, Major depressive disorder, r ecurrent episode, mild degree F33.0 and Generalized anxiety disorder F41.1 [facility] [address] [id number] [address] [place] [address] Jan, [facility] [address] [id number] [address] [place] [address] Jan, Generalized anxiety disorder F41.1 and Major depressive disorder, recurrent episode, mild degree F33.0 [facility] [address] [id number] [address] [place] [address] Dec, 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 [facility] [address] [id number] [address] [place] [address] Dec, Generalized anxiety disorder F41.1 [facility] [address] [id number] [address] [place] [address] Dec, [facility] [address] [id number] [address] [place] [address] Dec, Major depressive disorder, r ecurrent episode, mild degree F33.0 and Generalized anxiety disorder F41.1 [facility] [address] [id number] [address] [place] [address] Dec, Generalized anxiety disorder F41.1 and Major depressive disorder, recurrent episode, mild degree F33.0 [facility] [address] [id number] [address] [place] [address] November, Mild major depression F32.0 and Primary osteoarthritis involving multiple joints M15.0 [place] [address] [facility] [id number] [address] [place] [address] November, Major depressive disorder, r ecurrent episode, mild degree F33.0 and Generalized anxiety disorder F41.1 [place] [address] [place] [id number] [address] [place] [address] November, 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 ; Essential hypertension I10 ; Prediabetes R73.09 ; Mixed hyperlipidemia E78.2 ; Chronic prescription benzodiazepine use Z79.899 ; Chronic prescription opiate use Z79.899 ; Tobacco use Z72.0 ; Bilateral carpal tunnel syndrome G56.03 and Body mass index (bmi) 50-59.9 , adult Z68.43 [place] [address] [place] [address] November, 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 and Mild major depression F32.0 [place] [address] [place] [address] Oct, [place] [address] [place] [id number] [address] [place] [address] Oct, 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 ; Essential hypertension I10 ; Prediabetes R73.09 ; Chronic prescription benzodiazepine use Z79.899 ; Chronic prescription opiate use Z79.899 ; Tobacco use Z72.0 ; Mixed hyperlipidemia E78.2 ; Bilateral carpal tunnel syndrome G56.03 ; Body mass index (bmi) 50-59.9 , adult Z68.43 and Encounter for immunization Z23 [place] [address] [place] [id number] [address] [place] [address] Oct, Major depressive disorder, r ecurrent episode, mild degree F33.0 and Generalized anxiety disorder F41.1 [place] [address] [place] [id number] [address] [place] [address] Oct, [place] [address] [place] [id number] [address] [place] [address] Oct, [facility] [address] [facility] [id number] [address] [place] [address] Sep, Mild major depression F32.0 [facility] [address] [facility] [id number] [address] [place] [address] Sep, [facility] [address] [place] [id number] [address] [place] [address] Sep, Mild major depression F32.0 and Generalized anxiety disorder F41.1 [facility] [address] [facility] [id number] [address] [place] [address] Sep, Paresthesia of both hands R2 0.2 and Cervical radiculopathy M54.12 [facility] [address] [facility] [id number] [address] [place] [address] Sep, [facility] [address] [place] [id number] [place] [address] Sep, [facility] [address] [address] Aug, Paresthesia of both hands R2 0.2 and Neck pain M54.2 [facility] [address] [facility] [id number] [address] [place] [address] Aug, [facility] [address] [address] Jul, Neck pain M54.2 and Paresthe eddie of both hands R20.2 [facility] [address] [facility] [id number] [address] [place] [address] Jul, Proteinuria, unspecified typ e R80.9 [facility] [address] [place] [address] Jul, Proteinuria, unspecified typ e R80.9 [facility] [address] [facility] [id number] [address] [place] [address] Jul, [facility] [address] [place] [address] Jul, Other specified transient ce rebral ischemias G45.8 [place] [address] [place] [id number] [place] [address] 12 Jun, 2016 Diastolic dysfunction I51.9 [facility] [address] [place] [id number] [place] [address] 08 Jun, 2016 Diastolic dysfunction I51.9 [place] [address] [address] Jun, Major depressive disorder, s david episode, unspecified F32.9 and Anxiety disorder, unspecified F41.9 [place] [address] [address] Jun, [place] [address] [address] Jun, [place] [address] [address] May, Moderate major depression F3 2.1 and Generalized anxiety disorder F41.1 [place] [address] [address] 16 May, 2016 Major depressive disorder, s david episode, unspecified F32.9 and Anxiety disorder, unspecified F41.9 [place] [address] [address] 15 May, 2016 [place] [address] [address] 14 May, 2016 Liver enzyme elevation R74.8 [place] [address] [address] 14 May, 2016 Liver enzyme elevation R74.8 [place] [address] [place] [id number] [place] [address] 10 May, 2016 Shortness of breath on exert ion R06.02 ; Essential hypertension I10 ; Mixed hyperlipidemia E78.2 and Tobacco use Z72.0 [facility] [address] [id number] [address] [place] [address] May, [facility] [address] [id number] [address] [place] [address] May, [facility] [address] [id number] [address] [place] [address] Apr, Anxiety F41.9 and Depression F32.9 [facility] [address] [id number] [address] [place] [address] Apr, [facility] [address] [id number] [address] [place] [address] Apr, [facility] [address] [id number] [address] [place] [address] Mar, Depression F32.9 and Anxiety F41.9 [facility] [address] [id number] [address] [place] [address] 08 Mar, 2016 Anxiety F41.9 and Depression F32.9 [facility] [address] [id number] [address] [place] [address] Mar, Well woman exam (no gynecolo gical exam) Z00.00 [facility] [address] [id number] [address] [place] [address] Mar, [facility] [address] [id number] [address] [place] [address] Mar, [facility] [address] [id number] [address] [place] [id number] Feb, Dental caries K02.9 [facility] [address] [id number] [address] [place] [address] Feb, [facility] [address] [id number] [address] [place] [address] Feb, Anxiety F41.9 and Depression F32.9 [facility] [address] [id number] [address] [place] [id number] Feb, Dental examination Z01.20 [facility] [address] [id number] [address] [place] [address] Feb, [facility] [address] [id number] [address] [place] [address] Feb, [facility] [address] [id number] [address] [place] [address] Feb, Anxiety F41.9 and Depression F32.9 [facility] [address] [id number] [address] [place] [address] Jan, Severe episode of recurrent major depressive disorder, without psychotic features F33.2 and Anxiety disorder, unspecified F41.9 [facility] [address] [id number] [address] [place] [address] Jan, [facility] [address] [facility] [id number] [address] [place] [address] Dec, [facility] [address] [id number] [address] [place] [id number] Dec, Anxiety F41.9 and Depression F32.9 [facility] [address] [id number] [address] [place] [id number] Dec, Other specified transient ce rebral ischemias G45.8 and Nocturnal hypoxia G47.34 [facility] [address] [facility] [id number] [address] [place] [id number] Dec, [facility] [address] [id number] [address] [place] [id number] 17 Dec, 2015 Other specified transient ce rebral ischemias G45.8 [facility] [address] [facility] [id number] [address] [place] [id number] 16 Dec, 2015 Severe episode of recurrent major depressive disorder, without psychotic features F33.2 and Anxiety disorder, unspecified F41.9 [facility] [address] [facility] [id number] [address] [place] [id number] Dec, [facility] [address] [id number] Dec, 2015 Anxiety F41.9 and Depression F32.9 [facility] [facility] [address] [id number] 07 Dec, 2015 Anxiety F41.9 and Depression F32.9 [place] [address] [id number] Dec, [facility] [address] [id number] November, Anxiety F41.9 and Depression F32.9 [address] [address] November, Severe episode of recurrent major depressive disorder, without psychotic features F33.[address] [address] November, Mixed hyperlipidemia E78.2 [place] [address] [address] November, Anxiety F41.9 and Depression F32.[address] [address] November, Prediabetes R73.09 ; Essenti al hypertension I10 ; Anxiety F41.9 ; Depression F32.9 ; Gastroesophageal reflux disease, esophagitis presence not specified K21.9 ; Primary osteoarthritis involving multiple joints M15.0 ; History of renal cell cancer Z85.528 ; Postnasal drip R09.82 ; Allergic rhinitis, unspecified J30.9 and Tobacco use Z72.[address] [address] Oct, Anxiety F41.9 and Depression F32.9 [place] [address] [address] Oct, [place] [address] [address] 01 Oct, 2015 [facility] [address] [address] 14 Sep, 2015 Splenic artery aneurysm I72. 8 [facility] [address] [address] 10 Sep, 2015 Depression F32.9 ; Anxiety F 41.9 ; Chronic prescription benzodiazepine use Z79.899 and Splenic artery aneurysm I72.8 [facility] [address] [address] 10 Sep, 2015 Depression F32.9 and Anxiety F41.9 [facility] [address] [address] 02 Sep, 2015 [facility] [address] [address] 18 Aug, 2015 Dehydration E86.0 ; Diarrhea R19.7 ; Nausea R11.0 and Generalized abdominal pain R10.84 [facility] [address] [address] Aug, [facility] [address] [address] Jul, Depression F32.9 [facility] [address] [address] Jul, [facility] [address] [address] Jul, Anxiety F41.9 and Depression F32.9 [facility] [address] [address] Jul, [facility] [address] [address] Jun, Epigastric pain R10.13 [facility] [address] [address] Jun, [facility] [address] [id number] [address] [place] [address] Jun, [facility] [address] [facility] [id number] [address] [place] [address] May, [facility] [address] [id number] [address] [place] [address] May, [facility] [address] [id number] [address] [place] [address] Apr, [facility] [address] [id number] [address] [place] [address] Mar, Anxiety state, unspecified 3 00.00 ; Depression 311 ; Prediabetes 790.29 ; Generalized osteoarthrosis, involving multiple sites 715.09 and Hypertension 401.9 [facility] [address] [facility] [id number] [address] [place] [address] Mar, [facility] [address] [facility] [id number] [address] [place] [address] Feb, [facility] [address] [id number] [address] [place] [address] Jan, [facility] [address] [facility] [id number] [address] [place] [address] Jan, [facility] [address] [facility] [id number] [address] [place] [address] Jan, Generalized osteoarthrosis, involving multiple sites 715.09 [facility] [address] [facility] [id number] [address] [place] [id number] 07 Jan, 2015 Hx of renal cell cancer V10. 52 [facility] [address] [facility] [id number] [address] [place] [address] Dec, Generalized osteoarthrosis, involving multiple sites 715.09 and Hx of renal cell cancer V10.52 [facility] [address] [facility] [id number] [address] [place] [address] Dec, [facility] [address] [id number] [address] [place] [address] Dec, [facility] [address] [id number] [address] [place] [address] November, [facility] [address] [id number] [address] [place] [address] Oct, [facility] [address] [id number] [address] [place] [id number] Oct, [facility] [address] [id number] [address] [place] [id number] Sep, [facility] [address] [id number] [address] [place] [address] Sep, [facility] [address] [id number] [address] [place] [address] Sep, [facility] [address] [id number] [address] [place] [address] Sep, [facility] [address] [id number] [address] [place] [address] Aug, [facility] [address] [id number] [address] [place] [address] Aug, IMMUNIZATIONS No Known Immunizations SOCIAL HISTORY Never Assessed REASON FOR VISIT Controlled Medication Refill- Due 05/05 PLAN OF CARE VITAL SIGNS MEDICATIONS Medication Instructions Dosage Frequency Start Date End Date Duration S tatus Hydrocodone-Acetaminophen 5-325 MG Orally 2 times a day as n eeded for pain take 1 tablet Apr, 28 Active RESULTS No Results PROCEDURES No [...]
--- OUTSIDE RECORDS SUMMARY | 2020-02-08 07:13 | XMS REPORT ---
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 Role Phone LALOJEZALBANIA Unavailable PROBLEMS Type Condition ICD9-CM Code SUO95-EN Code Onset Dates Condition S tatus SNOMED Code Problem Mixed hyperlipidemia E78.2 Active 809970466 Problem Fatty liver K76.0 Active 16822599 7 Problem Obstructive sleep apnea G47.33 Active 71036103 Problem Allergic rhinitis, unspecified J30.9 Active 13510171 Problem Essential hypertension I10 Active 22266796 Problem History of renal cell cancer Z85.528 A ctive 918228460 Problem Prediabetes R73.09 Active 6919932 Problem Diastolic dysfunction I51.9 Active 1398449 Problem Body mass index (bmi) 50-59.9 , adult Z68.43 Active 586482470 Problem Paresthesia of both hands R20.2 Acti ve 564289548 Problem 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 Acti ve 424621452 Problem BMI 50.0-59.9, adult Z68.43 Active 243510313 Problem Restrictive lung disease J98.4 Activ e 70436924 Problem Splenic artery aneurysm I72.8 Active 71643881 Problem Liver mass R16.0 Active 240639888 Problem Generalized anxiety disorder F41.1 A ctive 94940456 Problem Major depressive disorder, recurrent episode, mild degree F33.0 Active 250994598 Problem Excoriation, neurotic L98.1 Active 35130392 Problem History of tobacco use Z87.891 Active 4087456036344 Problem Primary osteoarthritis involving multiple joints M 15.0 Active 847584744 Problem Isolated proteinuria without specific morphologic lesion R80.0 Active 74295727 Problem 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 Active 376704939 Problem Pulmonary emphysema, unspecified emphysema type J4 3.9 Active 87804510 Problem Chronic prescription opiate use Z79.899 Active 613768253 Problem Tobacco use Z72.0 Active 25925130 0 Problem Bilateral carpal tunnel syndrome G56.03 Active 32996200 Problem Chronic prescription benzodiazepine use Z79.899 Active 214645744 ALLERGIES No Known Allergies ENCOUNTERS Encounter Location Date Diagnosis [facility] [address] [id number] [address] [place] [id number] 07 May, 2018 [facility] [address] [facility] [id number] [address] [place] [id number] 31 Apr, 2018 [facility] [address] [id number] [address] [place] [id number] Apr, [facility] [address] [facility] [id number] [address] [place] [id number] 20 Mar, 2018 Generalized anxiety disorder F41.1 and Major depressive disorder, recurrent episode, mild degree F33.0 [facility] [address] [facility] [id number] [address] [place] [id number] 18 Mar, 2018 [facility] [address] [facility] [id number] [address] [place] [id number] 12 Mar, 2018 Generalized anxiety disorder F41.1 [facility] [address] [facility] [id number] [address] [place] [id number] 10 Mar, 2018 [facility] [address] [facility] [id number] [address] [place] [id number] 14 Feb, 2018 Generalized anxiety disorder F41.1 ; Major depressive disorder, recurrent episode, mild degree F33.0 and 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 [facility] [address] [id number] [address] [place] [id number] 13 Feb, 2018 Generalized anxiety disorder F41.1 and Major depressive disorder, recurrent episode, mild degree F33.0 [facility] [address] [facility] [id number] [address] [place] [id number] Feb, [facility] [address] [facility] [id number] [address] [place] [id number] Feb, Restrictive lung disease J98 .4 ; Pulmonary emphysema, unspecified emphysema type J43.9 and Body mass index (bmi) 50-59.9 , adult Z68.43 [facility] [address] [facility] [id number] [address] [place] [id number] Feb, Generalized anxiety disorder F41.1 ; Major depressive disorder, recurrent episode, mild degree F33.0 and 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 [facility] [address] [facility] [id number] [address] [place] [id number] Feb, [facility] [address] [facility] [id number] [address] [place] [id number] Jan, [place] [address] [facility] [id number] [place] [phone] Jan, Pulmonary emphysema, unspeci fied emphysema type J43.9 [facility] [address] [id number] [address] [place] [id number] Jan, Dental examination Z01.20 an d Dental caries K02.9 [facility] [address] [facility] [id number] [address] [place] [phone] Jan, Generalized anxiety disorder F41.1 and Major depressive disorder, recurrent episode, mild degree F33.0 [facility] [address] [facility] [id number] [address] [place] [id number] Jan, [facility] [address] [facility] [id number] [address] [place] [phone] Jan, Generalized anxiety disorder F41.1 [facility] [address] [facility] [id number] [address] [place] [id number] Jan, Oral abscess K12.2 and BMI 5 0.0-59.9, adult Z68.43 [facility] [address] [facility] [id number] [address] [place] [id number] Dec, 2018 BMI 50.0-59.9, adult Z68.43 and Weight loss counseling, encounter for Z71.3 [facility] [address] [facility] [id number] [address] [place] [phone] Dec, [facility] [address] [facility] [id number] [address] [place] [id number] Dec, [facility] [address] [facility] [id number] [address] [place] [id number] November, [facility] [address] [facility] [id number] [address] [place] [phone] November, [facility] [address] [place] [id number] [address] [place] [id number] November, Pulmonary emphysema, unspeci fied emphysema type J43.9 ; Restrictive lung disease J98.4 ; BMI 50.0-59.9, adult Z68.43 ; History of renal cell cancer Z85.528 ; Essential hypertension I10 ; Mixed hyperlipidemia E78.2 and Fatty liver K76.0 [place] [address] [place] [id number] [address] [place] [id number] November, Generalized anxiety disorder F41.1 [facility] [address] [place] [id number] [address] [place] [phone] November, Generalized anxiety disorder F41.1 and Major depressive disorder, recurrent episode, mild degree F33.0 [place] [address] [place] [id number] [address] [place] [id number] November, Generalized anxiety disorder F41.1 ; Major depressive disorder, recurrent episode, mild degree F33.0 and 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 [facility] [address] [facility] [id number] [address] [place] [id number] November, [facility] [address] [facility] [id number] [address] [place] [phone] Oct, Generalized anxiety disorder F41.1 [facility] [address] [facility] [id number] [address] [place] [phone] Oct, [facility] [address] [facility] [id number] [address] [place] [phone] Oct, Influenza-like illness R69 [facility] [address] [place] [id number] Sep, Influenza-like illness R69 [facility] [address] [place] [id number] [address] [place] [phone] Sep, Generalized anxiety disorder F41.1 [facility] [address] [place] [id number] [address] [place] [phone] Sep, [facility] [address] [id number] Aug, [facility] [address] [id number] Aug, [facility] [address] [id number] Aug, Generalized anxiety disorder F41.1 [facility] [address] [place] [id number] [address] [place] [id number] Aug, Influenza-like illness R69 a nd BMI 50.0-59.9, adult Z68.43 [facility] [address] [address] Jul, Fatty liver K76.0 ; Restrict jean-paul lung disease J98.4 ; Diastolic dysfunction I51.9 ; Body mass index (bmi) 50-59.9 , adult Z68.43 and Chronic prescription opiate use Z79.899 [facility] [id number] [place] [id number] Jul, Generalized anxiety disorder F41.1 [facility] [address] [place] [id number] Jul, Generalized anxiety disorder F41.1 [facility] [address] [place] [id number] [address] [place] [id number] Jul, 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 [facility] [address] [place] [id number] [address] [place] [id number] Jun, Generalized anxiety disorder F41.1 [facility] [address] [id number] [address] [place] [id number] Jun, [facility] [address] [facility] [id number] [address] [place], [place] [address] Jun, Mixed hyperlipidemia E78.2 [facility] [address] [id number] [address] [place] [id number] Jun, Generalized anxiety disorder F41.1 [facility] [address] [id number] [address] [place] [id number] Jun, Generalized anxiety disorder F41.1 ; Major depressive disorder, recurrent episode, mild degree F33.0 and 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 [facility] [address] [facility] [id number] [address] [place] [id number] May, [facility] [address] [id number] [address] [place] [id number] May, Generalized anxiety disorder F41.1 [facility] [address] [id number] [address] [place] [id number] May, Generalized anxiety disorder F41.1 [facility] [address] [id number] [address] [place] [phone] May, 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 [facility] [address] [id number] [address] [place] [id number] Apr, Major depressive disorder, r ecurrent episode, mild degree F33.0 ; Generalized anxiety disorder F41.1 and Excoriation, neurotic L98.1 [facility] [address] [id number] [address] [place] [id number] Apr, 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 [facility] [address] [facility] [id number] [address] [place] [id number] Apr, Essential hypertension I10 a nd Mixed hyperlipidemia E78.2 [facility] [address] [id number] [address] [place] [id number] Apr, Generalized anxiety disorder F41.1 ; Major depressive disorder, recurrent episode, mild degree F33.0 and 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 [facility] [address] [id number] [address] [place] [id number] 06 Mar, 2017 Generalized anxiety disorder F41.1 ; Major depressive disorder, recurrent episode, mild degree F33.0 and 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 [facility] [address] [id number] [address] [place] [phone] Mar, Skin lesion L98.9 [facility] [address] [id number] [address] [place] [phone] Mar, 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 [facility] [address] [id number] [address] [place] [phone] Mar, [facility] [address] [id number] [address] [place] [id number] Mar, [facility] [address] [id number] [address] [place] [phone] Feb, Major depressive disorder, r ecurrent episode, mild degree F33.0 ; Generalized anxiety disorder F41.1 and Excoriation, neurotic L98.1 [facility] [address] [id number] [address] [place] [id number] Feb, Generalized anxiety disorder F41.1 [facility] [address] [id number] [address] [place] [id number] Feb, 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 [facility] [address] [id number] [address] [place] [id number] Jan, [facility] [address] [id number] [address] [place] [id number] Jan, Essential hypertension I10 ; Splenic artery aneurysm I72.8 ; Liver mass R16.0 ; Restrictive lung disease J98.4 ; Primary osteoarthritis involving multiple joints M15.0 ; Mixed hyperlipidemia E78.2 ; Bilateral carpal tunnel syndrome G56.03 ; Body mass index (bmi) 50-59.9 , adult Z68.43 and History of tobacco use Z87.891 [facility] [address] [id number] [address] [place] [id number] Jan, Major depressive disorder, r ecurrent episode, mild degree F33.0 and Generalized anxiety disorder F41.1 [facility] [address] [id number] [address] [place] [id number] Jan, [facility] [address] [id number] [address] [place] [id number] Jan, Generalized anxiety disorder F41.1 and Major depressive disorder, recurrent episode, mild degree F33.0 [facility] [address] [id number] [address] [place] [id number] Dec, 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 [facility] [address] [id number] [address] [place] [id number] Dec, Generalized anxiety disorder F41.1 [facility] [address] [id number] [address] [place] [id number] Dec, [facility] [address] [id number] [address] [place] [id number] Dec, Major depressive disorder, r ecurrent episode, mild degree F33.0 and Generalized anxiety disorder F41.1 [facility] [address] [id number] [address] [place] [id number] Dec, Generalized anxiety disorder F41.1 and Major depressive disorder, recurrent episode, mild degree F33.0 [facility] [address] [id number] [address] [place] [phone] November, Mild major depression F32.0 and Primary osteoarthritis involving multiple joints M15.0 [facility] [address] [id number] [address] [place] [id number] November, Major depressive disorder, r ecurrent episode, mild degree F33.0 and Generalized anxiety disorder F41.1 [place] [address] [address] November, 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 ; Essential hypertension I10 ; Prediabetes R73.09 ; Mixed hyperlipidemia E78.2 ; Chronic prescription benzodiazepine use Z79.899 ; Chronic prescription opiate use Z79.899 ; Tobacco use Z72.0 ; Bilateral carpal tunnel syndrome G56.03 and Body mass index (bmi) 50-59.9 , adult Z68.43 [place] [address] [id number] November, 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 and Mild major depression F32.0 [place] [address] [address] Oct, [place] [address] [phone] Oct, 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 ; Essential hypertension I10 ; Prediabetes R73.09 ; Chronic prescription benzodiazepine use Z79.899 ; Chronic prescription opiate use Z79.899 ; Tobacco use Z72.0 ; Mixed hyperlipidemia E78.2 ; Bilateral carpal tunnel syndrome G56.03 ; Body mass index (bmi) 50-59.9 , adult Z68.43 and Encounter for immunization Z23 [place] [address] [place] [id number] [address] [place] [id number] Oct, Major depressive disorder, r ecurrent episode, mild degree F33.0 and Generalized anxiety disorder F41.1 [place] [address] [id number] Oct, [place] [address] [address] Oct, [place] [address] [address] Sep, Mild major depression F32.0 [facility] [address] [facility] [id number] [address] [place] [id number] Sep, [facility] [address] [facility] [id number] [address] [place] [id number] Sep, Mild major depression F32.0 and Generalized anxiety disorder F41.1 [facility] [address] [facility] [id number] [address] [place] [id number] Sep, Paresthesia of both hands R2 0.2 and Cervical radiculopathy M54.12 [facility] [address] [facility] [id number] [address] [place] [id number] Sep, [facility] [address] [facility] [id number] [address] [place] [phone] Sep, [facility] [address] [facility] [id number] [address] [place] [id number] Aug, Paresthesia of both hands R2 0.2 and Neck pain M54.2 [facility] [address] [facility] [id number] [address] [place] [id number] Aug, [facility] [address] [facility] [id number] [address] [place] [id number] Jul, Neck pain M54.2 and Paresthe eddie of both hands R20.2 [facility] [address] [facility] [id number] [address] [place] [id number] Jul, Proteinuria, unspecified typ e R80.9 [facility] [address] [facility] [id number] [address] [place] [id number] Jul, Proteinuria, unspecified typ e R80.9 [facility] [address] [facility] [id number] [address] [place] [id number] Jul, [facility] [address] [facility] [id number] [address] [place] [id number] Jul, Other specified transient ce rebral ischemias G45.8 [facility] [address] [facility] [id number] [address] [place] [id number] 12 Jun, 2016 Diastolic dysfunction I51.9 [facility] [address] [facility] [id number] [address] [place] [id number] 08 Jun, 2016 Diastolic dysfunction I51.9 [facility] [address] [facility] [id number] [address] [place] [id number] Jun, Major depressive disorder, s david episode, unspecified F32.9 and Anxiety disorder, unspecified F41.9 [facility] [address] [facility] [id number] [address] [place] [phone] Jun, [place] [address] [facility] [id number] [address] [place] [id number] Jun, [place] [address] [place] [id number] [address] [place] [id number] May, Moderate major depression F3 2.1 and Generalized anxiety disorder F41.1 [place] [address] [facility] [id number] [address] [place] [id number] 16 May, 2016 Major depressive disorder, s david episode, unspecified F32.9 and Anxiety disorder, unspecified F41.9 [place] [address] [facility] [id number] [address] [place] [id number] 15 May, 2016 [place] [address] [facility] [id number] [address] [place] [id number] 14 May, 2016 Liver enzyme elevation R74.8 [place] [address] [place] [id number] [address] [place] [id number] 14 May, 2016 Liver enzyme elevation R74.8 [place] [address] [place] [id number] [address] [place] [id number] 10 May, 2016 Shortness of breath on exert ion R06.02 ; Essential hypertension I10 ; Mixed hyperlipidemia E78.2 and Tobacco use Z72.0 [place] [address] [place] [id number] [address] [place] [id number] May, [facility] [address] [id number] [address] [place] [id number] May, [facility] [address] [id number] [address] [place] [address] Apr, Anxiety F41.9 and Depression F32.9 [facility] [address] [id number] [address] [place] [id number] Apr, [facility] [address] [id number] [address] [place] [id number] Apr, [facility] [address] [id number] [address] [place] [id number] Mar, Depression F32.9 and Anxiety F41.9 [facility] [address] [id number] [address] [place] [id number] Mar, Anxiety F41.9 and Depression F32.9 [facility] [address] [id number] [address] [place] [id number] Mar, Well woman exam (no gynecolo gical exam) Z00.00 [facility] [address] [id number] [address] [place] [id number] Mar, [facility] [address] [id number] [address] [place] [id number] Mar, [facility] [address] [id number] [address] [place] [id number] Feb, Dental caries K02.9 [facility] [address] [id number] [address] [place] [id number] Feb, [facility] [address] [id number] [address] [place] [id number] Feb, Anxiety F41.9 and Depression F32.9 [facility] [address] [id number] [address] [place] [id number] Feb, Dental examination Z01.20 [facility] [address] [id number] [address] [place] [id number] Feb, [facility] [address] [id number] [address] [place] [id number] Feb, [facility] [address] [id number] [address] [place] [id number] Feb, Anxiety F41.9 and Depression F32.9 [facility] [address] [id number] [address] [place] [phone] Jan, Severe episode of recurrent major depressive disorder, without psychotic features F33.2 and Anxiety disorder, unspecified F41.9 [facility] [address] [id number] [address] [place] [id number] Jan, [facility] [address] [id number] [address] [place] [id number] Dec, [facility] [address] [id number] [address] [place] [id number] Dec, Anxiety F41.9 and Depression F32.9 [facility] [address] [id number] [address] [place] [id number] Dec, Other specified transient ce rebral ischemias G45.8 and Nocturnal hypoxia G47.34 [facility] [address] [id number] [address] [place] [id number] Dec, [facility] [address] [id number] [address] [place] [id number] Dec, Other specified transient ce rebral ischemias G45.8 [facility] [address] [id number] [address] [place] [id number] 16 Dec, 2015 Severe episode of recurrent major depressive disorder, without psychotic features F33.2 and Anxiety disorder, unspecified F41.9 [facility] [address] [id number] [address] [place] [id number] 13 Dec, 2015 [facility] [address] [id number] [address] [place] [id number] 13 Dec, 2015 Anxiety F41.9 and Depression F32.9 [facility] [address] [facility] [id number] [address] [place] [phone] Dec, Anxiety F41.9 and Depression F32.9 [facility] [address] [facility] [id number] [address] [place] [id number] Dec, [facility] [address] [place] [id number] [place] [phone] November, Anxiety F41.9 and Depression F32.9 [place] [address] [place] [id number] [address] [place] [phone] November, Severe episode of recurrent major depressive disorder, without psychotic features F33.2 [place] [address] [place] [id number] [place] [id number] November, Mixed hyperlipidemia E78.2 [place] [address] [place] [id number] [place] [id number] November, Anxiety F41.9 and Depression F32.9 [place] [id number] [place] [id number] November, Prediabetes R73.09 ; Essenti al hypertension I10 ; Anxiety F41.9 ; Depression F32.9 ; Gastroesophageal reflux disease, esophagitis presence not specified K21.9 ; Primary osteoarthritis involving multiple joints M15.0 ; History of renal cell cancer Z85.528 ; Postnasal drip R09.82 ; Allergic rhinitis, unspecified J30.9 and Tobacco use Z72.0 [place] [id number] [place] [id number] [place] [phone] Oct, Anxiety F41.9 and Depression F32.9 [place] [address] [place] [id number] [place] [phone] Oct, [place] [address] [place] [id number] [place] [phone] Oct, [place] [address] [place] [id number] [place] [id number] 14 Sep, 2015 Splenic artery aneurysm I72. 8 [facility] [address] [phone] 10 Sep, 2015 Depression F32.9 ; Anxiety F 41.9 ; Chronic prescription benzodiazepine use Z79.899 and Splenic artery aneurysm I72.8 [facility] [address] [id number] 10 Sep, 2015 Depression F32.9 and Anxiety F41.9 [facility] [address] [phone] 02 Sep, 2015 [facility] [address] [id number] 18 Aug, 2015 Dehydration E86.0 ; Diarrhea R19.7 ; Nausea R11.0 and Generalized abdominal pain R10.84 [place] [address] [phone] Aug, [facility] [address] [phone] Jul, Depression F32.9 [facility] [address] [place] [id number] [place] [phone] Jul, [facility] [address] [place] [place] [id number] [address] [place] [phone] Jul, Anxiety F41.9 and Depression F32.9 [facility] [address] [place] [place] [id number] [place] [phone] Jul, [facility] [address] [place] [id number] [place] [phone] Jun, Epigastric pain R10.13 [facility] [address] [place] [place] [id number] [place] [phone] Jun, [facility] [address] [phone] Jun, [facility] [address] [id number] [address] [place] [phone] May, [facility] [address] [id number] [address] [place] [phone] May, [facility] [address] [facility] [id number] [address] [place] [phone] Apr, [facility] [address] [facility] [id number] [address] [place] [phone] Mar, Anxiety state, unspecified 3 00.00 ; Depression 311 ; Prediabetes 790.29 ; Generalized osteoarthrosis, involving multiple sites 715.09 and Hypertension 401.9 [facility] [address] [facility] [id number] [address] [place] [phone] Mar, [facility] [address] [facility] [id number] [address] [place] [phone] Feb, [facility] [address] [facility] [id number] [address] [place] [phone] Jan, [facility] [address] [id number] [address] [place] [phone] Jan, [facility] [address] [facility] [id number] [address] [place] [phone] Jan, Generalized osteoarthrosis, involving multiple sites 715.09 [facility] [address] [facility] [id number] [address] [place] [phone] Jan, Hx of renal cell cancer V10. 52 [facility] [address] [facility] [id number] [address] [place] [id number] Dec, Generalized osteoarthrosis, involving multiple sites 715.09 and Hx of renal cell cancer V10.52 [facility] [address] [id number] [address] [place] [id number] Dec, [facility] [address] [facility] [id number] [address] [place] [phone] Dec, [facility] [address] [id number] [address] [place] [phone] November, [facility] [address] [id number] [address] [place] [phone] Oct, [facility] [address] [id number] [address] [place] [phone] Oct, [facility] [address] [id number] [address] [place] [phone] Sep, [facility] [address] [id number] [address] [place] [id number] Sep, [facility] [address] [id number] [address] [place] [phone] Sep, [facility] [address] [id number] [address] [place] [phone] Sep, [facility] [address] [id number] [address] [place] [phone] Aug, [facility] [address] [id number] [address] [place] [phone] Aug, IMMUNIZATIONS No Known Immunizations SOCIAL HISTORY Never Assessed REASON FOR VISIT weight managment fu -- luan garcia PLAN OF CARE Activity Details Follow Up 4 Weeks Reason:Weight manage ment VITAL SIGNS Height 62 in 2018-03-07 Weight 296.0 lbs 2018-03-07 Temperature 98.0 degrees Fahrenheit 2018-03-07 Heart Rate 102 bpm 2018-03-07 Respiratory Rate 22 2018-03-07 BMI 54.13 kg/m2 2018-03-07 Blood pressure systolic 138 mmHg 2018-03-07 Blood pressure diastolic 82 mmHg 2018-03-07 MEDICATIONS Medication Instructions Dosage Frequency Start Date End Date Duration S tatus Hydrocodone-Acetaminophen 5-325 MG Orally 2 times a day as n eeded for pain take 1 tablet Jan, 28 Active Wellbutrin XL 150 MG Orally Once a day (along wit h 300 mg tablet to equal 450 mg daily 1 tablet in the morning 30 days A ctive Furosemide 20 MG TAKE ONE TABLET BY MOUTH ONCE DAILY 30 Active ProAir HFA 108 (90 Base) MCG/ACT Inhalation every 4 hrs 2 puffs as ne eded 4h 17 Active Cymbalta 30 MG Orally Once a day 3 capsules 24h Active Spiriva Respimat 1.25 MCG/ACT Inhalation Once a day 2 puffs 24h Feb, Active Stiolto Respimat 2.5-2.5 MCG/ACT Inhalation Once a day 2 puffs 24h November, Not-Taking Atorvastatin Calcium 40 MG TAKE ONE TABLET BY MOUTH ONCE DAILY 30 Active Tizanidine HCl 2 MG Orally every 8 hours 1 tablet as needed 8h 30 Active Remeron 15 mg Orally Once a day at bedtime 1 tablet at bedtime Active Wellbutrin XL 300 MG Orally Once a day 1 tablet in the morning 24h Active Atenolol 50 MG TAKE ONE TABLET BY MOUTH ONCE DAILY 90 Active Vitamin E Complete Activ e Potassium Chloride ER 20 MEQ TAKE ONE TABLET BY MOUTH ONCE DAILY WITH FOOD 30 Active Omeprazole 40 MG TAKE ONE CAPSULE BY MOUTH ONCE DAILY 30 Active Diazepam 5 mg Orally Once a day as needed for anxiety 0.5 tablet Active RESULTS No Results PROCEDURES No Known [...]
--- OUTSIDE RECORDS SUMMARY | 2020-02-08 07:13 | XMS REPORT ---
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 Name Role Phone BLOSSOM DUNCAN Unavailable PROBLEMS Type Condition ICD9-CM Code EHQ61-VG Code Onset Dates Condition S tatus SNOMED Code Problem Mixed hyperlipidemia E78.2 Active 014982828 Problem Fatty liver K76.0 Active 04128902 7 Problem Obstructive sleep apnea G47.33 Active 54454622 Problem Allergic rhinitis, unspecified J30.9 Active 34994746 Problem Essential hypertension I10 Active 12061290 Problem History of renal cell cancer Z85.528 A ctive 094536599 Problem Prediabetes R73.09 Active 2775687 Problem Diastolic dysfunction I51.9 Active 8337212 Problem Body mass index (bmi) 50-59.9 , adult Z68.43 Active 519239880 Problem Paresthesia of both hands R20.2 Acti ve 284906910 Problem 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 Acti ve 928522297 Problem BMI 50.0-59.9, adult Z68.43 Active 888992577 Problem Restrictive lung disease J98.4 Activ e 92882170 Problem Splenic artery aneurysm I72.8 Active 34264094 Problem Liver mass R16.0 Active 081068157 Problem Generalized anxiety disorder F41.1 A ctive 45943125 Problem Major depressive disorder, recurrent episode, mild degree F33.0 Active 959681998 Problem Excoriation, neurotic L98.1 Active 45511876 Problem History of tobacco use Z87.891 Active 2879328590398 Problem Primary osteoarthritis involving multiple joints M 15.0 Active 823184925 Problem Isolated proteinuria without specific morphologic lesion R80.0 Active 92094791 Problem 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 Active 704030331 Problem Pulmonary emphysema, unspecified emphysema type J4 3.9 Active 12601613 Problem Chronic prescription opiate use Z79.899 Active 030382487 Problem Tobacco use Z72.0 Active 58148751 0 Problem Bilateral carpal tunnel syndrome G56.03 Active 54825481 Problem Chronic prescription benzodiazepine use Z79.899 Active 075623763 ALLERGIES No Information ENCOUNTERS Encounter Location Date Diagnosis [facility] [address] [id number] [address] [place] [id number] May, [facility] [address] [id number] [address] [place] [id number] 31 Apr, 2018 [facility] [address] [id number] [address] [place] [id number] Apr, [facility] [address] [facility] [id number] [address] [place] [id number] 20 Mar, 2018 Generalized anxiety disorder F41.1 and Major depressive disorder, recurrent episode, mild degree F33.0 [facility] [address] [id number] [address] [place] [id number] 18 Mar, 2018 [facility] [address] [id number] [address] [place] [id number] 12 Mar, 2018 Generalized anxiety disorder F41.1 [facility] [address] [facility] [id number] [address] [place] [id number] 10 Mar, 2018 [facility] [address] [facility] [id number] [address] [place] [id number] 14 Feb, 2018 Generalized anxiety disorder F41.1 ; Major depressive disorder, recurrent episode, mild degree F33.0 and 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 [facility] [address] [id number] [address] [place] [id number] Feb, Generalized anxiety disorder F41.1 and Major depressive disorder, recurrent episode, mild degree F33.0 [facility] [address] [facility] [id number] [address] [place] [id number] Feb, [facility] [address] [facility] [id number] [address] [place] [id number] Feb, Restrictive lung disease J98 .4 ; Pulmonary emphysema, unspecified emphysema type J43.9 and Body mass index (bmi) 50-59.9 , adult Z68.43 [facility] [address] [facility] [id number] [address] [place] [id number] Feb, Generalized anxiety disorder F41.1 ; Major depressive disorder, recurrent episode, mild degree F33.0 and 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 [facility] [address] [facility] [id number] [address] [place] [id number] Feb, [facility] [address] [facility] [id number] [address] [place] [id number] Jan, [facility] [address] [facility] [id number] [place] [id number] Jan, Pulmonary emphysema, unspeci fied emphysema type J43.9 [facility] [address] [id number] [address] [place] [id number] Jan, Dental examination Z01.20 an d Dental caries K02.9 [facility] [address] [facility] [id number] [address] [place] [id number] Jan, Generalized anxiety disorder F41.1 and Major depressive disorder, recurrent episode, mild degree F33.0 [facility] [address] [facility] [id number] [address] [place] [id number] Jan, [facility] [address] [facility] [id number] [address] [place] [id number] Jan, Generalized anxiety disorder F41.1 [facility] [address] [facility] [id number] [address] [place] [id number] Jan, Oral abscess K12.2 and BMI 5 0.0-59.9, adult Z68.43 [facility] [address] [facility] [id number] [address] [place] [id number] Dec, BMI 50.0-59.9, adult Z68.43 and Weight loss counseling, encounter for Z71.3 [facility] [address] [place] [id number] [address] [place] [id number] Dec, [facility] [address] [facility] [id number] [address] [place] [id number] Dec, [facility] [address] [place] [id number] [address] [place] [id number] November, [facility] [address] [place] [id number] [address] [place] [id number] November, [facility] [address] [place] [id number] [address] [place] [address] November, Pulmonary emphysema, unspeci fied emphysema type J43.9 ; Restrictive lung disease J98.4 ; BMI 50.0-59.9, adult Z68.43 ; History of renal cell cancer Z85.528 ; Essential hypertension I10 ; Mixed hyperlipidemia E78.2 and Fatty liver K76.0 [place] [address] [place] [id number] [address] [place] [id number] November, Generalized anxiety disorder F41.1 [facility] [address] [place] [id number] [address] [place] [address] November, Generalized anxiety disorder F41.1 and Major depressive disorder, recurrent episode, mild degree F33.0 [place] [address] [place] [id number] [address] [place] [phone] November, Generalized anxiety disorder F41.1 ; Major depressive disorder, recurrent episode, mild degree F33.0 and 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 [facility] [address] [facility] [id number] [address] [place] [phone] November, [facility] [address] [facility] [id number] [address] [place] [id number] Oct, Generalized anxiety disorder F41.1 [facility] [address] [place] [id number] [address] [place] [phone] Oct, [facility] [address] [place] [id number] [address] [place] [id number] Oct, Influenza-like illness R69 [facility] [id number] [place] [id number] Sep, Influenza-like illness R69 [facility] [address] [place] [id number] [address] [place] [address] Sep, Generalized anxiety disorder F41.1 [facility] [address] [place] [id number] [address] [place] [id number] Sep, [facility] [address] [id number] Aug, [facility] [address] [id number] Aug, [facility] [address] [id number] Aug, Generalized anxiety disorder F41.1 [facility] [address] [place] [id number] [address] [place] [address] Aug, Influenza-like illness R69 a nd BMI 50.0-59.9, adult Z68.43 [facility] [address] [address] Jul, Fatty liver K76.0 ; Restrict jean-paul lung disease J98.4 ; Diastolic dysfunction I51.9 ; Body mass index (bmi) 50-59.9 , adult Z68.43 and Chronic prescription opiate use Z79.899 [facility] [address] [place] [id number] [address] [place] [id number] Jul, Generalized anxiety disorder F41.1 [facility] [address] [place] [id number] [address] [place] [id number] Jul, Generalized anxiety disorder F41.1 [facility] [address] [address] Jul, 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 [facility] [address] [place] [id number] [address] [place] [address] Jun, Generalized anxiety disorder F41.1 [facility] [address] [id number] [address] [place] [id number] Jun, [facility] [address] [facility] [id number] [address] [place] [phone] Jun, Mixed hyperlipidemia E78.2 [facility] [address] [facility] [id number] [address] [place] [id number] Jun, Generalized anxiety disorder F41.1 [facility] [address] [id number] [address] [place] [id number] Jun, Generalized anxiety disorder F41.1 ; Major depressive disorder, recurrent episode, mild degree F33.0 and 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 [facility] [address] [facility] [id number] [address] [place] [id number] May, [facility] [address] [facility] [id number] [address] [place] [phone] May, Generalized anxiety disorder F41.1 [facility] [address] [facility] [id number] [address] [place] [id number] May, Generalized anxiety disorder F41.1 [facility] [address] [facility] [id number] [address] [place] [id number] May, 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 [facility] [address] [facility] [id number] [address] [place] [id number] Apr, Major depressive disorder, r ecurrent episode, mild degree F33.0 ; Generalized anxiety disorder F41.1 and Excoriation, neurotic L98.1 [facility] [address] [facility] [id number] [address] [place] [id number] Apr, 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 [facility] [address] [facility] [id number] [address] [place] [id number] Apr, Essential hypertension I10 a nd Mixed hyperlipidemia E78.2 [facility] [address] [id number] [address] [place] [id number] Apr, Generalized anxiety disorder F41.1 ; Major depressive disorder, recurrent episode, mild degree F33.0 and 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 [facility] [address] [id number] [address] [place] [id number] Mar, Generalized anxiety disorder F41.1 ; Major depressive disorder, recurrent episode, mild degree F33.0 and 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 [facility] [address] [id number] [address] [place] [id number] Mar, Skin lesion L98.9 [facility] [address] [id number] [address] [place] [id number] Mar, 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 [facility] [address] [id number] [address] [place] [id number] Mar, [facility] [address] [id number] [address] [place] [id number] Mar, [facility] [address] [id number] [address] [place] [id number] Feb, Major depressive disorder, r ecurrent episode, mild degree F33.0 ; Generalized anxiety disorder F41.1 and Excoriation, neurotic L98.1 [facility] [address] [id number] [address] [place] [address] Feb, Generalized anxiety disorder F41.1 [facility] [address] [id number] [address] [place] [id number] Feb, 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 [facility] [address] [id number] [address] [place] [id number] Jan, [facility] [address] [id number] [address] [place] [id number] Jan, Essential hypertension I10 ; Splenic artery aneurysm I72.8 ; Liver mass R16.0 ; Restrictive lung disease J98.4 ; Primary osteoarthritis involving multiple joints M15.0 ; Mixed hyperlipidemia E78.2 ; Bilateral carpal tunnel syndrome G56.03 ; Body mass index (bmi) 50-59.9 , adult Z68.43 and History of tobacco use Z87.891 [facility] [address] [id number] [address] [place] [id number] Jan, Major depressive disorder, r ecurrent episode, mild degree F33.0 and Generalized anxiety disorder F41.1 [facility] [address] [id number] [address] [place] [id number] Jan, [place] [address] [id number] [address] [place] [id number] Jan, Generalized anxiety disorder F41.1 and Major depressive disorder, recurrent episode, mild degree F33.0 [place] [address] [id number] [address] [place] [id number] Dec, 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 [facility] [address] [id number] [address] [place] [id number] Dec, Generalized anxiety disorder F41.1 [facility] [address] [id number] [address] [place] [id number] Dec, [place] [address] [id number] [address] [place] [id number] Dec, Major depressive disorder, r ecurrent episode, mild degree F33.0 and Generalized anxiety disorder F41.1 [facility] [address] [id number] [address] [place] [phone] Dec, Generalized anxiety disorder F41.1 and Major depressive disorder, recurrent episode, mild degree F33.0 [facility] [address] [id number] [address] [place] [id number] November, Mild major depression F32.0 and Primary osteoarthritis involving multiple joints M15.0 [facility] [address] [id number] [address] [place] [id number] November, Major depressive disorder, r ecurrent episode, mild degree F33.0 and Generalized anxiety disorder F41.1 [place] [address] [address] November, 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 ; Essential hypertension I10 ; Prediabetes R73.09 ; Mixed hyperlipidemia E78.2 ; Chronic prescription benzodiazepine use Z79.899 ; Chronic prescription opiate use Z79.899 ; Tobacco use Z72.0 ; Bilateral carpal tunnel syndrome G56.03 and Body mass index (bmi) 50-59.9 , adult Z68.43 [place] [address] [id number] November, 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 and Mild major depression F32.0 [place] [address] [id number] Oct, [place] [address] [address] Oct, 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 ; Essential hypertension I10 ; Prediabetes R73.09 ; Chronic prescription benzodiazepine use Z79.899 ; Chronic prescription opiate use Z79.899 ; Tobacco use Z72.0 ; Mixed hyperlipidemia E78.2 ; Bilateral carpal tunnel syndrome G56.03 ; Body mass index (bmi) 50-59.9 , adult Z68.43 and Encounter for immunization Z23 [place] [address] [place] [id number] [address] [place] [address] Oct, Major depressive disorder, r ecurrent episode, mild degree F33.0 and Generalized anxiety disorder F41.1 [place] [address] [address] Oct, [place] [address] [address] Oct, [place] [address] [address] Sep, Mild major depression F32.0 [facility] [address] [facility] [id number] [address] [place] [id number] Sep, [facility] [address] [facility] [id number] [address] [place] [address] Sep, Mild major depression F32.0 and Generalized anxiety disorder F41.1 [facility] [address] [facility] [id number] [address] [place] [id number] Sep, Paresthesia of both hands R2 0.2 and Cervical radiculopathy M54.12 [facility] [address] [facility] [id number] [address] [place] [id number] Sep, [facility] [address] [facility] [id number] [address] [place] [id number] Sep, [facility] [address] [place] [id number] [address] [place] [address] Aug, Paresthesia of both hands R2 0.2 and Neck pain M54.2 [facility] [address] [facility] [id number] [address] [place] [id number] Aug, [facility] [address] [facility] [id number] [address] [place] [address] Jul, Neck pain M54.2 and Paresthe eddie of both hands R20.2 [facility] [address] [facility] [id number] [address] [place] [address] Jul, Proteinuria, unspecified typ e R80.9 [facility] [address] [facility] [id number] [address] [place] [id number] Jul, Proteinuria, unspecified typ e R80.9 [facility] [address] [facility] [id number] [address] [place] [address] Jul, [facility] [address] [facility] [id number] [address] [place] [address] Jul, Other specified transient ce rebral ischemias G45.8 [place] [address] [facility] [id number] [address] [place] [id number] 12 Jun, 2016 Diastolic dysfunction I51.9 [facility] [address] [facility] [id number] [address] [place] [id number] 08 Jun, 2016 Diastolic dysfunction I51.9 [facility] [address] [facility] [id number] [address] [place] [id number] 06 Jun, 2016 Major depressive disorder, s david episode, unspecified F32.9 and Anxiety disorder, unspecified F41.9 [facility] [address] [facility] [id number] [address] [place] [id number] Jun, [facility] [address] [facility] [id number] [address] [place] [id number] Jun, [facility] [address] [place] [id number] [address] [place] [id number] May, Moderate major depression F3 2.1 and Generalized anxiety disorder F41.1 [facility] [address] [facility] [id number] [address] [place] [id number] 16 May, 2016 Major depressive disorder, s david episode, unspecified F32.9 and Anxiety disorder, unspecified F41.9 [facility] [address] [facility] [id number] [address] [place] [id number] 15 May, 2016 [place] [address] [facility] [id number] [address] [place] [id number] 14 May, 2016 Liver enzyme elevation R74.8 [facility] [address] [facility] [id number] [address] [place] [id number] 14 May, 2016 Liver enzyme elevation R74.8 [place] [address] [place] [id number] [address] [place] [address] 10 May, 2016 Shortness of breath on exert ion R06.02 ; Essential hypertension I10 ; Mixed hyperlipidemia E78.2 and Tobacco use Z72.0 [place] [address] [place] [id number] [address] [place] [id number] May, [facility] [address] [id number] [address] [place] [id number] May, [facility] [address] [id number] [address] [place] [id number] Apr, Anxiety F41.9 and Depression F32.9 [facility] [address] [id number] [address] [place] [id number] Apr, [facility] [address] [id number] [address] [place] [id number] Apr, [facility] [address] [id number] [address] [place] [address] Mar, Depression F32.9 and Anxiety F41.9 [facility] [address] [id number] [address] [place] [address] Mar, Anxiety F41.9 and Depression F32.9 [facility] [address] [id number] [address] [place] [address] Mar, Well woman exam (no gynecolo gical exam) Z00.00 [facility] [address] [id number] [address] [place] [id number] Mar, [facility] [address] [id number] [address] [place] [id number] Mar, [facility] [address] [id number] [address] [place] [id number] Feb, Dental caries K02.9 [facility] [address] [id number] [address] [place] [id number] Feb, [facility] [address] [id number] [address] [place] [id number] Feb, Anxiety F41.9 and Depression F32.9 [facility] [address] [id number] [address] [place] [id number] Feb, Dental examination Z01.20 [facility] [address] [id number] [address] [place] [id number] Feb, [facility] [address] [id number] [address] [place] [id number] Feb, [facility] [address] [id number] [address] [place] [id number] Feb, Anxiety F41.9 and Depression F32.9 [facility] [address] [id number] [address] [place] [id number] Jan, Severe episode of recurrent major depressive disorder, without psychotic features F33.2 and Anxiety disorder, unspecified F41.9 [facility] [address] [id number] [address] [place] [id number] Jan, [facility] [address] [id number] [address] [place] [id number] Dec, [facility] [address] [id number] [address] [place] [id number] Dec, Anxiety F41.9 and Depression F32.9 [facility] [address] [id number] [address] [place] [id number] Dec, Other specified transient ce rebral ischemias G45.8 and Nocturnal hypoxia G47.34 [facility] [address] [id number] [address] [place] [id number] Dec, [facility] [address] [id number] [address] [place] [id number] Dec, Other specified transient ce rebral ischemias G45.8 [facility] [address] [id number] [address] [place] [id number] 16 Dec, 2015 Severe episode of recurrent major depressive disorder, without psychotic features F33.2 and Anxiety disorder, unspecified F41.9 [facility] [address] [id number] [address] [place] [id number] Dec, [facility] [address] [facility] [id number] [address] [place] [phone] Dec, Anxiety F41.9 and Depression F32.9 [facility] [address] [facility] [id number] [address] [place] [phone] Dec, Anxiety F41.9 and Depression F32.9 [facility] [address] [facility] [id number] [address] [place] [id number] Dec, [place] [address] [place] [id number] [address] [place] [phone] November, Anxiety F41.9 and Depression F32.9 [place] [address] [place] [id number] [address] [place] [phone] November, Severe episode of recurrent major depressive disorder, without psychotic features F33.2 [place] [address] [place] [id number] [address] [place] [phone] November, Mixed hyperlipidemia E78.2 [place] [address] [place] [id number] [address] [place] [phone] November, Anxiety F41.9 and Depression F32.9 [place] [address] [place] [id number] [address] [place] [phone] November, Prediabetes R73.09 ; Essenti al hypertension I10 ; Anxiety F41.9 ; Depression F32.9 ; Gastroesophageal reflux disease, esophagitis presence not specified K21.9 ; Primary osteoarthritis involving multiple joints M15.0 ; History of renal cell cancer Z85.528 ; Postnasal drip R09.82 ; Allergic rhinitis, unspecified J30.9 and Tobacco use Z72.0 [place] [address] [place] [id number] [address] [place] [phone] Oct, Anxiety F41.9 and Depression F32.9 [place] [address] [place] [id number] [address] [place] [phone] Oct, [place] [address] [place] [id number] [address] [place] [phone] Oct, [place] [address] [place] [id number] [address] [place] [id number] 14 Sep, 2015 Splenic artery aneurysm I72. 8 [facility] [address] [id number] 10 Sep, 2015 Depression F32.9 ; Anxiety F 41.9 ; Chronic prescription benzodiazepine use Z79.899 and Splenic artery aneurysm I72.8 [facility] [address] [id number] 10 Sep, 2015 Depression F32.9 and Anxiety F41.9 [facility] [address] [id number] 02 Sep, 2015 [facility] [address] [id number] 18 Aug, 2015 Dehydration E86.0 ; Diarrhea R19.7 ; Nausea R11.0 and Generalized abdominal pain R10.84 [facility] [address] [id number] Aug, [facility] [address] [id number] Jul, Depression F32.9 [facility] [address] [id number] Jul, [facility] [address] [id number] Jul, Anxiety F41.9 and Depression F32.9 [facility] [address] [id number] Jul, [facility] [address] [id number] Jun, Epigastric pain R10.13 [facility] [address] [place] [id number] [address] [place] [phone] Jun, [facility] [address] [id number] Jun, [facility] [address] [id number] [address] [place] [phone] May, [facility] [address] [facility] [id number] [address] [place] [phone] May, [facility] [address] [id number] [address] [place] [id number] Apr, [facility] [address] [id number] [address] [place] [id number] Mar, Anxiety state, unspecified 3 00.00 ; Depression 311 ; Prediabetes 790.29 ; Generalized osteoarthrosis, involving multiple sites 715.09 and Hypertension 401.9 [facility] [address] [id number] [address] [place] [id number] Mar, [facility] [address] [facility] [id number] [address] [place] [id number] Feb, [facility] [address] [facility] [id number] [address] [place] [id number] Jan, [facility] [address] [id number] [address] [place] [id number] Jan, [facility] [address] [facility] [id number] [address] [place] [id number] Jan, Generalized osteoarthrosis, involving multiple sites 715.09 [facility] [address] [facility] [id number] [address] [place] [id number] Jan, Hx of renal cell cancer V10. 52 [facility] [address] [facility] [id number] [address] [place] [id number] Dec, Generalized osteoarthrosis, involving multiple sites 715.09 and Hx of renal cell cancer V10.52 [facility] [address] [id number] [address] [place] [id number] Dec, [facility] [address] [facility] [id number] [address] [place] [phone] Dec, [facility] [address] [id number] [address] [place] [phone] November, [facility] [address] [id number] [address] [place] [phone] Oct, [facility] [address] [id number] [address] [place] [phone] Oct, [facility] [address] [id number] [address] [place] [phone] Sep, [facility] [address] [id number] [address] [place] [phone] Sep, [facility] [address] [id number] [address] [place] [phone] Sep, [facility] [address] [id number] [address] [place] [phone] Sep, [facility] [address] [id number] [address] [place] [phone] Aug, [facility] [address] [id number] [address] [place] [id number] Aug, IMMUNIZATIONS No Known Immunizations SOCIAL HISTORY Never Assessed REASON FOR VISIT Controlled Medication Refill PLAN OF CARE VITAL SIGNS MEDICATIONS Medication Instructions Dosage Frequency Start Date End Date Duration S tatus Hydrocodone-Acetaminophen 5-325 MG Orally 2 times a day as n eeded for pain take 1 tablet Mar, 28 Active RESULTS No Results PROCEDURES No [...]
--- OUTSIDE RECORDS SUMMARY | 2020-02-08 07:13 | XMS REPORT ---
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 Name Role Phone ONEALIGGI Unavailable PROBLEMS Type Condition ICD9-CM Code [id number] Code Onset Dates Condition S tatus SNOMED Code Problem Mixed hyperlipidemia E78.2 Active 738807249 Problem Fatty liver K76.0 Active 64889601 7 Problem Obstructive sleep apnea G47.33 Active 81728450 Problem Allergic rhinitis, unspecified J30.9 Active 38870242 Problem Essential hypertension I10 Active 05316565 Problem History of renal cell cancer Z85.528 A ctive 060083778 Problem Prediabetes R73.09 Active 1655424 Problem Diastolic dysfunction I51.9 Active 3005414 Problem Body mass index (bmi) 50-59.9 , adult Z68.43 Active 544949320 Problem Paresthesia of both hands R20.2 Acti ve 066369799 Problem 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 Acti ve 010719592 Problem BMI 50.0-59.9, adult Z68.43 Active 671739623 Problem Restrictive lung disease J98.4 Activ e 37737176 Problem Splenic artery aneurysm I72.8 Active 70549025 Problem Liver mass R16.0 Active 573775131 Problem Generalized anxiety disorder F41.1 A ctive 36666100 Problem Major depressive disorder, recurrent episode, mild degree F33.0 Active 011138391 Problem Excoriation, neurotic L98.1 Active 04746630 Problem History of tobacco use Z87.891 Active 9697198147661 Problem Primary osteoarthritis involving multiple joints M 15.0 Active 431169165 Problem Isolated proteinuria without specific morphologic lesion R80.0 Active 71165739 Problem 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 Active 252204149 Problem Pulmonary emphysema, unspecified emphysema type J4 3.9 Active 08168797 Problem Chronic prescription opiate use Z79.899 Active 462477954 Problem Tobacco use Z72.0 Active 82007340 0 Problem Bilateral carpal tunnel syndrome G56.03 Active 00094875 Problem Chronic prescription benzodiazepine use Z79.899 Active 674417654 ALLERGIES No Known Allergies ENCOUNTERS Encounter Location Date Diagnosis [facility] [address] [id number] [address] [place] [phone] 07 May, 2018 [facility] [address] [facility] [id number] [address] [place] [id number] 31 Apr, 2018 [facility] [address] [facility] [id number] [address] [place] [phone] Apr, [facility] [address] [facility] [id number] [address] [place] [phone] 20 Mar, 2018 Generalized anxiety disorder F41.1 and Major depressive disorder, recurrent episode, mild degree F33.0 [facility] [address] [facility] [id number] [address] [place] [id number] 18 Mar, 2018 [facility] [address] [facility] [id number] [address] [place] [phone] 12 Mar, 2018 Generalized anxiety disorder F41.1 [facility] [address] [facility] [id number] [address] [place] [phone] 10 Mar, 2018 [facility] [address] [facility] [id number] [address] [place] [id number] 14 Feb, 2018 Generalized anxiety disorder F41.1 ; Major depressive disorder, recurrent episode, mild degree F33.0 and 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 [facility] [address] [id number] [address] [place] [phone] 13 Feb, 2018 Generalized anxiety disorder F41.1 and Major depressive disorder, recurrent episode, mild degree F33.0 [facility] [address] [facility] [id number] [address] [place] [phone] Feb, [facility] [address] [facility] [id number] [address] [place] [id number] Feb, Restrictive lung disease J98 .4 ; Pulmonary emphysema, unspecified emphysema type J43.9 and Body mass index (bmi) 50-59.9 , adult Z68.43 [facility] [address] [facility] [id number] [address] [place] [id number] Feb, Generalized anxiety disorder F41.1 ; Major depressive disorder, recurrent episode, mild degree F33.0 and 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 [facility] [address] [facility] [id number] [address] [place] [phone] Feb, [facility] [address] [facility] [id number] [address] [place] [phone] Jan, [place] [address] [facility] [id number] [place] [phone] Jan, Pulmonary emphysema, unspeci fied emphysema type J43.9 [facility] [address] [id number] [address] [place] [id number] Jan, Dental examination Z01.20 an d Dental caries K02.9 [place] [address] [facility] [id number] [address] [place] [phone] Jan, Generalized anxiety disorder F41.1 and Major depressive disorder, recurrent episode, mild degree F33.0 [facility] [address] [facility] [id number] [address] [place] [phone] Jan, [facility] [address] [facility] [id number] [address] [place] [phone] Jan, Generalized anxiety disorder F41.1 [facility] [address] [facility] [id number] [address] [place] [address] Jan, Oral abscess K12.2 and BMI 5 0.0-59.9, adult Z68.43 [facility] [address] [facility] [id number] [address] [place] [phone] Dec, 2018 BMI 50.0-59.9, adult Z68.43 and Weight loss counseling, encounter for Z71.3 [facility] [address] [place] [id number] [address] [place] [phone] Dec, [facility] [address] [facility] [id number] [address] [place] [phone] Dec, [facility] [address] [place] [id number] [address] [place] [phone] November, [facility] [address] [place] [id number] [address] [place] [phone] November, [facility] [address] [place] [id number] [address] [place] [address] November, Pulmonary emphysema, unspeci fied emphysema type J43.9 ; Restrictive lung disease J98.4 ; BMI 50.0-59.9, adult Z68.43 ; History of renal cell cancer Z85.528 ; Essential hypertension I10 ; Mixed hyperlipidemia E78.2 and Fatty liver K76.0 [place] [address] [place] [address] November, Generalized anxiety disorder F41.1 [facility] [address] [place] [id number] [address] [place] [phone] November, Generalized anxiety disorder F41.1 and Major depressive disorder, recurrent episode, mild degree F33.0 [place] [address] [place] [id number] [address] [place] [address] November, Generalized anxiety disorder F41.1 ; Major depressive disorder, recurrent episode, mild degree F33.0 and 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 [facility] [address] [place] [id number] [address] [place] [phone] November, [facility] [address] [facility] [id number] [address] [place] [address] Oct, Generalized anxiety disorder F41.1 [facility] [address] [place] [id number] [address] [place] [id number] Oct, [facility] [address] [place] [id number] [address] [place] [phone] Oct, Influenza-like illness R69 [facility] [address] [place] [address] Sep, Influenza-like illness R69 [facility] [address] [place] [address] Sep, Generalized anxiety disorder F41.1 [facility] [address] [place] [address] Sep, [facility] [address] [place] [id number] [address] [place] [phone] Aug, [facility] [address] [address] Aug, [facility] [address] [id number] Aug, Generalized anxiety disorder F41.1 [facility] [address] [place] [id number] [address] [place] [phone] Aug, Influenza-like illness R69 a nd BMI 50.0-59.9, adult Z68.43 [facility] [address] [place] [id number] [address] [place] [address] Jul, Fatty liver K76.0 ; Restrict jean-paul lung disease J98.4 ; Diastolic dysfunction I51.9 ; Body mass index (bmi) 50-59.9 , adult Z68.43 and Chronic prescription opiate use Z79.899 [facility] [address] [place] [id number] [address] [place] [id number] Jul, Generalized anxiety disorder F41.1 [facility] [address] [place] [address] Jul, Generalized anxiety disorder F41.1 [facility] [address] [place] [id number] [address] [place] [address] Jul, 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 [facility] [address] [place] [id number] [address] [place] [address] Jun, Generalized anxiety disorder F41.1 [facility] [address] [id number] [address] [place] [phone] Jun, [facility] [address] [id number] [address] [place], [place] [address] Jun, Mixed hyperlipidemia E78.2 [facility] [address] [id number] [address] [place] [phone] Jun, Generalized anxiety disorder F41.1 [facility] [address] [id number] [address] [place] [address] Jun, Generalized anxiety disorder F41.1 ; Major depressive disorder, recurrent episode, mild degree F33.0 and 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 [facility] [address] [id number] [address] [place] [address] May, [facility] [address] [id number] [address] [place] [phone] May, Generalized anxiety disorder F41.1 [facility] [address] [id number] [address] [place] [phone] May, Generalized anxiety disorder F41.1 [facility] [address] [id number] [address] [place] [phone] May, 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 [facility] [address] [id number] [address] [place] [id number] Apr, Major depressive disorder, r ecurrent episode, mild degree F33.0 ; Generalized anxiety disorder F41.1 and Excoriation, neurotic L98.1 [facility] [address] [id number] [address] [place] [id number] Apr, 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 [facility] [address] [id number] [address] [place] [address] Apr, Essential hypertension I10 a nd Mixed hyperlipidemia E78.2 [place] [address] [id number] [address] [place] [id number] 03 Apr, 2017 Generalized anxiety disorder F41.1 ; Major depressive disorder, recurrent episode, mild degree F33.0 and 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 [facility] [address] [id number] [address] [place] [phone] 06 Mar, 2017 Generalized anxiety disorder F41.1 ; Major depressive disorder, recurrent episode, mild degree F33.0 and 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 [facility] [address] [id number] [address] [place] [id number] Mar, Skin lesion L98.9 [facility] [address] [id number] [address] [place] [id number] Mar, 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 [facility] [address] [id number] [address] [place] [phone] Mar, [facility] [address] [id number] [address] [place] [phone] Mar, [facility] [address] [id number] [address] [place] [address] Feb, Major depressive disorder, r ecurrent episode, mild degree F33.0 ; Generalized anxiety disorder F41.1 and Excoriation, neurotic L98.1 [facility] [address] [id number] [address] [place] [phone] Feb, Generalized anxiety disorder F41.1 [facility] [address] [id number] [address] [place] [phone] Feb, 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 [facility] [address] [id number] [address] [place] [address] Jan, [facility] [address] [id number] [address] [place] [phone] Jan, Essential hypertension I10 ; Splenic artery aneurysm I72.8 ; Liver mass R16.0 ; Restrictive lung disease J98.4 ; Primary osteoarthritis involving multiple joints M15.0 ; Mixed hyperlipidemia E78.2 ; Bilateral carpal tunnel syndrome G56.03 ; Body mass index (bmi) 50-59.9 , adult Z68.43 and History of tobacco use Z87.891 [facility] [address] [id number] [address] [place] [address] Jan, Major depressive disorder, r ecurrent episode, mild degree F33.0 and Generalized anxiety disorder F41.1 [facility] [address] [id number] [address] [place] [address] Jan, [facility] [address] [id number] [address] [place] [id number] Jan, Generalized anxiety disorder F41.1 and Major depressive disorder, recurrent episode, mild degree F33.0 [facility] [address] [id number] [address] [place] [id number] Dec, 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 [facility] [address] [id number] [address] [place] [address] Dec, Generalized anxiety disorder F41.1 [facility] [address] [id number] [address] [place] [id number] Dec, [facility] [address] [id number] [address] [place] [phone] Dec, Major depressive disorder, r ecurrent episode, mild degree F33.0 and Generalized anxiety disorder F41.1 [facility] [address] [id number] [address] [place] [id number] Dec, Generalized anxiety disorder F41.1 and Major depressive disorder, recurrent episode, mild degree F33.0 [facility] [address] [id number] [address] [place] [phone] November, Mild major depression F32.0 and Primary osteoarthritis involving multiple joints M15.0 [facility] [address] [id number] [address] [place] [id number] November, Major depressive disorder, r ecurrent episode, mild degree F33.0 and Generalized anxiety disorder F41.1 [place] [address] [address] November, 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 ; Essential hypertension I10 ; Prediabetes R73.09 ; Mixed hyperlipidemia E78.2 ; Chronic prescription benzodiazepine use Z79.899 ; Chronic prescription opiate use Z79.899 ; Tobacco use Z72.0 ; Bilateral carpal tunnel syndrome G56.03 and Body mass index (bmi) 50-59.9 , adult Z68.43 [place] [address] [address] November, 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 and Mild major depression F32.[address] [address] Oct, [address] [address] Oct, 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 ; Essential hypertension I10 ; Prediabetes R73.09 ; Chronic prescription benzodiazepine use Z79.899 ; Chronic prescription opiate use Z79.899 ; Tobacco use Z72.0 ; Mixed hyperlipidemia E78.2 ; Bilateral carpal tunnel syndrome G56.03 ; Body mass index (bmi) 50-59.9 , adult Z68.43 and Encounter for immunization Z23 [place] [address] [place] [id number] [address] [place] [address] Oct, Major depressive disorder, r ecurrent episode, mild degree F33.0 and Generalized anxiety disorder F41.1 [place] [address] [address] Oct, [place] [address] [address] Oct, [place] [address] [address] Sep, Mild major depression F32.0 [facility] [address] [facility] [id number] [address] [place] [address] Sep, [facility] [address] [facility] [id number] [address] [place] [phone] Sep, Mild major depression F32.0 and Generalized anxiety disorder F41.1 [facility] [address] [facility] [id number] [address] [place] [address] Sep, Paresthesia of both hands R2 0.2 and Cervical radiculopathy M54.12 [facility] [address] [facility] [id number] [address] [place] [id number] Sep, [facility] [address] [facility] [id number] [address] [place] [address] Sep, [facility] [address] [facility] [id number] [address] [place] [address] Aug, Paresthesia of both hands R2 0.2 and Neck pain M54.2 [facility] [address] [facility] [id number] [address] [place] [address] Aug, [facility] [address] [facility] [id number] [address] [place] [address] Jul, Neck pain M54.2 and Paresthe eddie of both hands R20.2 [facility] [address] [facility] [id number] [address] [place] [address] Jul, Proteinuria, unspecified typ e R80.9 [facility] [address] [facility] [id number] [address] [place] [phone] Jul, Proteinuria, unspecified typ e R80.9 [facility] [address] [facility] [id number] [address] [place] [address] Jul, [facility] [address] [facility] [id number] [address] [place] [address] Jul, Other specified transient ce rebral ischemias G45.8 [facility] [address] [facility] [id number] [address] [place] [address] 12 Jun, 2016 Diastolic dysfunction I51.9 [facility] [address] [facility] [id number] [address] [place] [address] 08 Jun, 2016 Diastolic dysfunction I51.9 [facility] [address] [facility] [id number] [address] [place] [address] Jun, Major depressive disorder, s david episode, unspecified F32.9 and Anxiety disorder, unspecified F41.9 [facility] [address] [facility] [id number] [address] [place] [address] Jun, [place] [address] [facility] [id number] [address] [place] [address] Jun, [place] [address] [place] [id number] [address] [place] [address] May, Moderate major depression F3 2.1 and Generalized anxiety disorder F41.1 [place] [address] [facility] [id number] [address] [place] [address] 16 May, 2016 Major depressive disorder, s david episode, unspecified F32.9 and Anxiety disorder, unspecified F41.9 [place] [address] [facility] [id number] [address] [place] [address] 15 May, 2016 [place] [address] [facility] [id number] [address] [place] [address] 14 May, 2016 Liver enzyme elevation R74.8 [place] [address] [place] [id number] [address] [place] [address] 14 May, 2016 Liver enzyme elevation R74.8 [place] [address] [place] [id number] [address] [place] [id number] 10 May, 2016 Shortness of breath on exert ion R06.02 ; Essential hypertension I10 ; Mixed hyperlipidemia E78.2 and Tobacco use Z72.0 [place] [address] [place] [id number] [address] [place] [address] May, [facility] [address] [id number] [address] [place] [id number] May, [facility] [address] [id number] [address] [place] [address] Apr, Anxiety F41.9 and Depression F32.9 [facility] [address] [id number] [address] [place] [id number] Apr, [facility] [address] [id number] [address] [place] [phone] Apr, [facility] [address] [id number] [address] [place] [id number] Mar, Depression F32.9 and Anxiety F41.9 [facility] [address] [id number] [address] [place] [address] Mar, Anxiety F41.9 and Depression F32.9 [facility] [address] [id number] [address] [place] [phone] Mar, Well woman exam (no gynecolo gical exam) Z00.00 [facility] [address] [id number] [address] [place] [address] Mar, [facility] [address] [id number] [address] [place] [address] Mar, [facility] [address] [id number] [address] [place] [id number] Feb, Dental caries K02.9 [facility] [address] [id number] [address] [place] [phone] Feb, [facility] [address] [id number] [address] [place] [address] Feb, Anxiety F41.9 and Depression F32.9 [facility] [address] [id number] [address] [place] [id number] Feb, Dental examination Z01.20 [facility] [address] [id number] [address] [place] [id number] Feb, [facility] [address] [id number] [address] [place] [id number] Feb, [facility] [address] [id number] [address] [place] [id number] Feb, Anxiety F41.9 and Depression F32.9 [facility] [address] [id number] [address] [place] [id number] Jan, Severe episode of recurrent major depressive disorder, without psychotic features F33.2 and Anxiety disorder, unspecified F41.9 [facility] [address] [id number] [address] [place] [id number] Jan, [facility] [address] [id number] [address] [place] [phone] Dec, [facility] [address] [id number] [address] [place] [id number] Dec, Anxiety F41.9 and Depression F32.9 [facility] [address] [id number] [address] [place] [id number] Dec, Other specified transient ce rebral ischemias G45.8 and Nocturnal hypoxia G47.34 [facility] [address] [id number] [address] [place] [id number] Dec, [facility] [address] [id number] [address] [place] [id number] Dec, Other specified transient ce rebral ischemias G45.8 [facility] [address] [id number] [address] [place] [id number] 16 Dec, 2015 Severe episode of recurrent major depressive disorder, without psychotic features F33.2 and Anxiety disorder, unspecified F41.9 [facility] [address] [id number] [address] [place] [phone] Dec, [facility] [address] [id number] [address] [place] [phone] 13 Dec, 2015 Anxiety F41.9 and Depression F32.9 [place] [address] [place] [id number] [address] [place] [phone] Dec, Anxiety F41.9 and Depression F32.9 [place] [address] [facility] [id number] [address] [place] [phone] Dec, [place] [address] [place] [id number] [place] [phone] November, Anxiety F41.9 and Depression F32.9 [place] [address] [place] [id number] [place] [phone] November, Severe episode of recurrent major depressive disorder, without psychotic features F33.2 [place] [address] [place] [id number] [address] [place] [phone] November, Mixed hyperlipidemia E78.2 [place] [address] [place] [id number] [address] [place] [phone] November, Anxiety F41.9 and Depression F32.9 [place] [address] [place] [id number] [address] [place] [phone] November, Prediabetes R73.09 ; Essenti al hypertension I10 ; Anxiety F41.9 ; Depression F32.9 ; Gastroesophageal reflux disease, esophagitis presence not specified K21.9 ; Primary osteoarthritis involving multiple joints M15.0 ; History of renal cell cancer Z85.528 ; Postnasal drip R09.82 ; Allergic rhinitis, unspecified J30.9 and Tobacco use Z72.0 [place] [address] [place] [id number] [address] [place] [phone] Oct, Anxiety F41.9 and Depression F32.9 [place] [address] [place] [id number] [address] [place] [phone] Oct, [place] [address] [place] [id number] [address] [place] [phone] Oct, [place] [address] [place] [id number] [address] [place] [phone] 14 Sep, 2015 Splenic artery aneurysm I72. 8 [facility] [address] [place] [id number] [place] [phone] 10 Sep, 2015 Depression F32.9 ; Anxiety F 41.9 ; Chronic prescription benzodiazepine use Z79.899 and Splenic artery aneurysm I72.8 [facility] [address] [id number] 10 Sep, 2015 Depression F32.9 and Anxiety F41.9 [facility] [address] [place] [id number] [place] [phone] 02 Sep, 2015 [facility] [address] [id number] 18 Aug, 2015 Dehydration E86.0 ; Diarrhea R19.7 ; Nausea R11.0 and Generalized abdominal pain R10.84 [facility] [address] [place] [id number] [address] [place] [phone] Aug, [facility] [address] [place] [id number] [place] [phone] Jul, Depression F32.9 [facility] [address] [place] [id number] [address] [place] [phone] Jul, [facility] [address] [place] [id number] [address] [place] [id number] Jul, Anxiety F41.9 and Depression F32.9 [facility] [address] [place] [id number] [address] [place] [phone] Jul, [facility] [address] [place] [id number] [address] [place] [phone] Jun, Epigastric pain R10.13 [facility] [address] [facility] [id number] [address] [place] [phone] Jun, [facility] [address] [place] [id number] [place] [phone] Jun, [facility] [address] [id number] [address] [place] [phone] May, [facility] [address] [id number] [address] [place] [phone] May, [facility] [address] [facility] [id number] [address] [place] [phone] Apr, [facility] [address] [facility] [id number] [address] [place] [phone] Mar, Anxiety state, unspecified 3 00.00 ; Depression 311 ; Prediabetes 790.29 ; Generalized osteoarthrosis, involving multiple sites 715.09 and Hypertension 401.9 [facility] [address] [facility] [id number] [address] [place] [phone] Mar, [facility] [address] [facility] [id number] [address] [place] [phone] Feb, [facility] [address] [facility] [id number] [address] [place] [phone] Jan, [facility] [address] [facility] [id number] [address] [place] [phone] Jan, [facility] [address] [facility] [id number] [address] [place] [phone] Jan, Generalized osteoarthrosis, involving multiple sites 715.09 [facility] [address] [facility] [id number] [address] [place] [phone] Jan, Hx of renal cell cancer V10. 52 [facility] [address] [facility] [id number] [address] [place] [phone] Dec, Generalized osteoarthrosis, involving multiple sites 715.09 and Hx of renal cell cancer V10.52 [facility] [address] [id number] [address] [place] [phone] Dec, [facility] [address] [facility] [id number] [address] [place] [phone] Dec, [facility] [address] [id number] [address] [place] [phone] November, [facility] [address] [id number] [address] [place] [phone] Oct, [facility] [address] [id number] [address] [place] [phone] Oct, [facility] [address] [id number] [address] [place] [phone] Sep, [facility] [address] [id number] [address] [place] [phone] Sep, [facility] [address] [id number] [address] [place] [phone] Sep, [facility] [address] [facility] [id number] [address] [place] [phone] Sep, [facility] [address] [facility] [id number] [address] [place] [phone] Aug, [facility] [address] [facility] [id number] [address] [place] [phone] Aug, IMMUNIZATIONS No Known Immunizations SOCIAL HISTORY Never Assessed REASON FOR VISIT f/u Elly PLAN OF CARE Activity Details Follow Up 3 Months Reason: f/u VITAL SIGNS Height 62 in 2018-03-11 Weight 295.0 lbs 2018-03-11 Heart Rate 84 bpm 2018-03-11 Respiratory Rate 20 2018-03-11 BMI 53.95 kg/m2 2018-03-11 Blood pressure systolic 118 mmHg 2018-03-11 Blood pressure diastolic 74 mmHg 2018-03-11 MEDICATIONS Medication Instructions Dosage Frequency Start Date End Date Duration S tatus Omeprazole 40 MG TAKE ONE CAPSULE BY MOUTH ONCE DAILY 30 Active ProAir HFA 108 (90 Base) MCG/ACT Inhalation every 4 hrs 2 puffs as ne eded 4h 17 Active Cymbalta 30 MG Orally Once a day 3 capsules 24h Active Wellbutrin XL 150 MG Orally Once a day (along wit h 300 mg tablet to equal 450 mg daily 1 tablet in the morning A ctive Tizanidine HCl 2 MG Orally every 8 hours 1 tablet as needed 8h 30 Active Ambien 10 mg Orally at bedtime 1 tablet Feb, 30 days Active Hydrocodone-Acetaminophen 5-325 MG Orally 2 times a day as n eeded for pain take 1 tablet Feb, 28 Active Atorvastatin Calcium 40 MG TAKE ONE TABLET BY MOUTH ONCE DAILY 30 Active Wellbutrin XL 300 MG Orally Once a day 1 tablet in the morning 24h Active Potassium Chloride ER 20 MEQ TAKE ONE TABLET BY MOUTH ONCE DAILY WITH FOOD 30 Active Stiolto Respimat 2.5-2.5 MCG/ACT Inhalation Once a day 2 puffs 24h November, Not-Taking Atenolol 50 MG TAKE ONE TABLET BY MOUTH ONCE DAILY 90 Active Vitamin E Complete Activ e Furosemide 20 MG TAKE ONE TABLET BY MOUTH ONCE DAILY 30 Active Spiriva Respimat 1.25 MCG/ACT Inhalation Once a day 2 puffs 24h Feb, Active RESULTS No Results PROCEDURES No Known [...]
--- OUTSIDE RECORDS SUMMARY | 2020-02-08 07:13 | XMS REPORT ---
Author Author Emilee NO Organization [facility], [place] Address [address] [place] [address] Care Team Providers Care Schedule Hanger Name Role Phone [email or web address] Unavailable PROBLEMS Type Condition ICD9-CM Code DUH23-DN Code Onset Dates Condition S tatus SNOMED Code Problem Mixed hyperlipidemia E78.2 Active 569106600 Problem Fatty liver K76.0 Active 17946237 7 Problem Obstructive sleep apnea G47.33 Active 42297277 Problem Allergic rhinitis, unspecified J30.9 Active 54311087 Problem Essential hypertension I10 Active 64922310 Problem History of renal cell cancer Z85.528 A ctive 231731565 Problem Prediabetes R73.09 Active 9833269 Problem Diastolic dysfunction I51.9 Active 6417760 Problem Body mass index (bmi) 50-59.9 , adult Z68.43 Active 879939160 Problem Paresthesia of both hands R20.2 Acti ve 588920378 Problem 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 Acti ve 817406880 Problem BMI 50.0-59.9, adult Z68.43 Active 377647174 Problem Restrictive lung disease J98.4 Activ e 70824474 Problem Splenic artery aneurysm I72.8 Active 11388098 Problem Liver mass R16.0 Active 138523861 Problem Generalized anxiety disorder F41.1 A ctive 74068259 Problem Major depressive disorder, recurrent episode, mild degree F33.0 Active 748575826 Problem Excoriation, neurotic L98.1 Active 18701277 Problem History of tobacco use Z87.891 Active 1572645409508 Problem Primary osteoarthritis involving multiple joints M 15.0 Active 356937977 Problem Isolated proteinuria without specific morphologic lesion R80.0 Active 05255627 Problem 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 Active 159281392 Problem Pulmonary emphysema, unspecified emphysema type J4 3.9 Active 85290172 Problem Chronic prescription opiate use Z79.899 Active 747824368 Problem Tobacco use Z72.0 Active 09123101 0 Problem Bilateral carpal tunnel syndrome G56.03 Active 70105239 Problem Chronic prescription benzodiazepine use Z79.899 Active 991761764 ALLERGIES No Information ENCOUNTERS Encounter Location Date Diagnosis [facility], [place] [address] [id number] [address] [place] [id number] 07 May, 2018 [facility] [place] [address] [facility] [id number] [address] [place] [id number] 31 Apr, 2018 [facility], [place] [address] [id number] [address] [place] [phone] Apr, [facility] [place] [address] [facility] [id number] [address] [place] [id number] 20 Mar, 2018 Generalized anxiety disorder F41.1 and Major depressive disorder, recurrent episode, mild degree F33.0 [facility] [place] [address] [facility] [id number] [address] [place] [id number] 18 Mar, 2018 [facility] [place] [address] [facility] [id number] [address] [place] [id number] 12 Mar, 2018 Generalized anxiety disorder F41.1 [facility] [place] [address] [facility] [id number] [address] [place] [id number] 10 Mar, 2018 [facility] [place] [address] [facility] [id number] [address] [place] [id number] 14 Feb, 2018 Generalized anxiety disorder F41.1 ; Major depressive disorder, recurrent episode, mild degree F33.0 and 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 [facility] [place] [address] [id number] [address] [place] [id number] 13 Feb, 2018 Generalized anxiety disorder F41.1 and Major depressive disorder, recurrent episode, mild degree F33.0 [facility] [place] [address] [facility] [id number] [address] [place] [phone] Feb, [facility] [place] [address] [facility] [id number] [address] [place] [id number] Feb, Restrictive lung disease J98 .4 ; Pulmonary emphysema, unspecified emphysema type J43.9 and Body mass index (bmi) 50-59.9 , adult Z68.43 [facility] [place] [address] [facility] [id number] [address] [place] [id number] Feb, Generalized anxiety disorder F41.1 ; Major depressive disorder, recurrent episode, mild degree F33.0 and 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 [facility] [place] [address] [facility] [id number] [address] [place] [phone] Feb, [facility] [place] [address] [facility] [id number] [address] [place] [phone] Jan, [place] [address] [facility] [id number] [place] [phone] Jan, Pulmonary emphysema, unspeci fied emphysema type J43.9 [facility] [address] [id number] [address] [place] [id number] Jan, Dental examination Z01.20 an d Dental caries K02.9 [facility] [place] [address] [facility] [id number] [address] [place] [phone] Jan, Generalized anxiety disorder F41.1 and Major depressive disorder, recurrent episode, mild degree F33.0 [facility] [place] [address] [facility] [id number] [address] [place] [phone] Jan, [facility] [place] [address] [facility] [id number] [address] [place] [id number] Jan, Generalized anxiety disorder F41.1 [facility] [address] [facility] [id number] [address] [place] [id number] Jan, Oral abscess K12.2 and BMI 5 0.0-59.9, adult Z68.43 [place] [address] [facility] [id number] [address] [place] [id number] Dec, 2018 BMI 50.0-59.9, adult Z68.43 and Weight loss counseling, encounter for Z71.3 [place] [address] [facility] [id number] [address] [place] [phone] Dec, [facility] [place] [address] [facility] [id number] [address] [place] [phone] Dec, [facility] [place] [address] [facility] [id number] [address] [place] [phone] November, [facility] [place] [address] [facility] [id number] [address] [place] [phone] November, [facility] [place] [address] [place] [id number] [address] [place] [id number] November, Pulmonary emphysema, unspeci fied emphysema type J43.9 ; Restrictive lung disease J98.4 ; BMI 50.0-59.9, adult Z68.43 ; History of renal cell cancer Z85.528 ; Essential hypertension I10 ; Mixed hyperlipidemia E78.2 and Fatty liver K76.0 [place] [address] [place] [id number] [address] [place] [phone] November, Generalized anxiety disorder F41.1 [facility] [place] [address] [place] [id number] [address] [place] [phone] November, Generalized anxiety disorder F41.1 and Major depressive disorder, recurrent episode, mild degree F33.0 [place] [address] [place] [id number] [address] [place] [phone] November, Generalized anxiety disorder F41.1 ; Major depressive disorder, recurrent episode, mild degree F33.0 and 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 [facility] [place] [address] [facility] [id number] [address] [place] [id number] November, [facility] [place] [address] [facility] [id number] [address] [place] [phone] Oct, Generalized anxiety disorder F41.1 [facility] [place] [address] [facility] [id number] [address] [place] [phone] Oct, [facility] [place] [address] [facility] [id number] [address] [place] [id number] Oct, Influenza-like illness R69 [facility] [place] [address] [place] [phone] Sep, Influenza-like illness R69 [facility] [place] [address] [place] [id number] [address] [place] [id number] Sep, Generalized anxiety disorder F41.1 [facility] [place] [address] [place] [id number] [address] [place] [phone] Sep, [facility] [place] [address] [address] Aug, [facility] [place] [address] [id number] Aug, [facility] [place] [address] [id number] Aug, Generalized anxiety disorder F41.1 [facility] [address] [place] [id number] [address] [place] [phone] Aug, Influenza-like illness R69 a nd BMI 50.0-59.9, adult Z68.43 [facility], [place] [address] [address] Jul, Fatty liver K76.0 ; Restrict jean-paul lung disease J98.4 ; Diastolic dysfunction I51.9 ; Body mass index (bmi) 50-59.9 , adult Z68.43 and Chronic prescription opiate use Z79.899 [facility] [place] [address] [place] [phone] Jul, Generalized anxiety disorder F41.1 [facility], [place] [address] [place] [id number] Jul, Generalized anxiety disorder F41.1 [facility] [place] [address] [place] [id number] [address] [place] [phone] Jul, 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 [facility] [place] [address] [place] [id number] [address] [place] [phone] Jun, Generalized anxiety disorder F41.1 [facility] [place] [address] [id number] [address] [place] [id number] Jun, [facility] [place] [address] [facility] [id number] [address] [place], [place] [address] Jun, Mixed hyperlipidemia E78.2 [facility] [place] [address] [id number] [address] [place] [phone] Jun, Generalized anxiety disorder F41.1 [facility] [place] [address] [id number] [address] [place] [id number] Jun, Generalized anxiety disorder F41.1 ; Major depressive disorder, recurrent episode, mild degree F33.0 and 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 [facility] [place] [address] [facility] [id number] [address] [place] [phone] May, [facility] [place] [address] [id number] [address] [place] [phone] May, Generalized anxiety disorder F41.1 [facility] [place] [address] [id number] [address] [place] [id number] May, Generalized anxiety disorder F41.1 [facility] [place] [address] [id number] [address] [place] [phone] May, 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 [facility] [place] [address] [id number] [address] [place] [id number] Apr, Major depressive disorder, r ecurrent episode, mild degree F33.0 ; Generalized anxiety disorder F41.1 and Excoriation, neurotic L98.1 [facility] [place] [address] [id number] [address] [place] [id number] Apr, Primary osteoarthritis invol ving multiple joints M15.0 [facility] [place] [address] [facility] [id number] [address] [place] [phone] Apr, Essential hypertension I10 a nd Mixed hyperlipidemia E78.2 [facility] [place] [address] [id number] [address] [place] [phone] Apr, Generalized anxiety disorder F41.1 ; Major depressive disorder, recurrent episode, mild degree F33.0 and 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 [facility] [place] [address] [id number] [address] [place] [id number] 06 Mar, 2017 Generalized anxiety disorder F41.1 ; Major depressive disorder, recurrent episode, mild degree F33.0 and 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 [facility] [place] [address] [id number] [address] [place] [phone] Mar, Skin lesion L98.9 [facility] [place] [address] [id number] [address] [place] [phone] Mar, Primary osteoarthritis invol ving multiple joints M15.0 [facility] [place] [address] [id number] [address] [place] [phone] Mar, [facility] [place] [address] [id number] [address] [place] [phone] Mar, [facility] [place] [address] [id number] [address] [place] [phone] Feb, Major depressive disorder, r ecurrent episode, mild degree F33.0 ; Generalized anxiety disorder F41.1 and Excoriation, neurotic L98.1 [facility] [place] [address] [id number] [address] [place] [phone] Feb, Generalized anxiety disorder F41.1 [facility] [place] [address] [id number] [address] [place] [id number] Feb, Primary osteoarthritis invol ving multiple joints M15.0 [facility] [place] [address] [id number] [address] [place] [id number] Jan, [facility] [place] [address] [id number] [address] [place] [id number] Jan, Essential hypertension I10 ; Splenic artery aneurysm I72.8 ; Liver mass R16.0 ; Restrictive lung disease J98.4 ; Primary osteoarthritis involving multiple joints M15.0 ; Mixed hyperlipidemia E78.2 ; Bilateral carpal tunnel syndrome G56.03 ; Body mass index (bmi) 50-59.9 , adult Z68.43 and History of tobacco use Z87.891 [facility] [place] [address] [id number] [address] [place] [phone] Jan, Major depressive disorder, r ecurrent episode, mild degree F33.0 and Generalized anxiety disorder F41.1 [facility] [place] [address] [id number] [address] [place] [id number] Jan, [facility] [place] [address] [id number] [address] [place] [phone] Jan, Generalized anxiety disorder F41.1 and Major depressive disorder, recurrent episode, mild degree F33.0 [facility] [place] [address] [id number] [address] [place] [id number] Dec, Primary osteoarthritis invol ving multiple joints M15.0 [facility] [place] [address] [id number] [address] [place] [phone] Dec, Generalized anxiety disorder F41.1 [facility] [place] [address] [id number] [address] [place] [id number] Dec, [facility] [place] [address] [id number] [address] [place] [phone] Dec, Major depressive disorder, r ecurrent episode, mild degree F33.0 and Generalized anxiety disorder F41.1 [facility] [place] [address] [id number] [address] [place] [phone] Dec, Generalized anxiety disorder F41.1 and Major depressive disorder, recurrent episode, mild degree F33.0 [facility] [place] [address] [id number] [address] [place] [phone] November, Mild major depression F32.0 and Primary osteoarthritis involving multiple joints M15.0 [facility] [place] [address] [id number] [address] [place] [phone] November, Major depressive disorder, r ecurrent episode, mild degree F33.0 and Generalized anxiety disorder F41.1 [place] [address] [address] November, Primary osteoarthritis invol ving multiple joints M15.0 ; Essential hypertension I10 ; Prediabetes R73.09 ; Mixed hyperlipidemia E78.2 ; Chronic prescription benzodiazepine use Z79.899 ; Chronic prescription opiate use Z79.899 ; Tobacco use Z72.0 ; Bilateral carpal tunnel syndrome G56.03 and Body mass index (bmi) 50-59.9 , adult Z68.43 [place] [address] [address] November, Primary osteoarthritis invol ving multiple joints M15.0 and Mild major depression F32.0 [place] [address] [address] Oct, [place] [address] [address] Oct, Primary osteoarthritis invol ving multiple joints M15.0 ; Essential hypertension I10 ; Prediabetes R73.09 ; Chronic prescription benzodiazepine use Z79.899 ; Chronic prescription opiate use Z79.899 ; Tobacco use Z72.0 ; Mixed hyperlipidemia E78.2 ; Bilateral carpal tunnel syndrome G56.03 ; Body mass index (bmi) 50-59.9 , adult Z68.43 and Encounter for immunization Z23 [place] [address] [place] [id number] [address] [place] [id number] Oct, Major depressive disorder, r ecurrent episode, mild degree F33.0 and Generalized anxiety disorder F41.1 [place] [address] [id number] Oct, [place] [address] [address] Oct, [place] [address] [address] Sep, Mild major depression F32.0 [facility] [place] [address] [facility] [id number] [address] [place] [id number] Sep, [facility] [place] [address] [facility] [id number] [address] [place] [phone] Sep, Mild major depression F32.0 and Generalized anxiety disorder F41.1 [facility] [place] [address] [facility] [id number] [address] [place] [id number] Sep, Paresthesia of both hands R2 0.2 and Cervical radiculopathy M54.12 [facility] [place] [address] [facility] [id number] [address] [place] [id number] Sep, [facility] [place] [address] [facility] [id number] [address] [place] [phone] Sep, [facility] [place] [address] [facility] [id number] [address] [place] [id number] Aug, Paresthesia of both hands R2 0.2 and Neck pain M54.2 [facility] [place] [address] [facility] [id number] [address] [place] [phone] Aug, [facility] [place] [address] [facility] [id number] [address] [place] [phone] Jul, Neck pain M54.2 and Paresthe eddie of both hands R20.2 [facility] [place] [address] [facility] [id number] [address] [place] [id number] Jul, Proteinuria, unspecified typ e R80.9 [facility] [place] [address] [facility] [id number] [address] [place] [id number] Jul, Proteinuria, unspecified typ e R80.9 [facility] [place] [address] [facility] [id number] [address] [place] [id number] Jul, [facility] [place] [address] [facility] [id number] [address] [place] [id number] Jul, Other specified transient ce rebral ischemias G45.8 [facility] [place] [address] [facility] [id number] [address] [place] [id number] 12 Jun, 2016 Diastolic dysfunction I51.9 [facility] [place] [address] [facility] [id number] [address] [place] [phone] 08 Jun, 2016 Diastolic dysfunction I51.9 [facility] [place] [address] [facility] [id number] [address] [place] [id number] Jun, Major depressive disorder, s david episode, unspecified F32.9 and Anxiety disorder, unspecified F41.9 [facility] [place] [address] [facility] [id number] [address] [place] [phone] Jun, [place] [address] [facility] [id number] [address] [place] [phone] Jun, [place] [address] [place] [id number] [address] [place] [id number] May, Moderate major depression F3 2.1 and Generalized anxiety disorder F41.1 [place] [address] [facility] [id number] [address] [place] [id number] 16 May, 2016 Major depressive disorder, s david episode, unspecified F32.9 and Anxiety disorder, unspecified F41.9 [place] [address] [facility] [id number] [address] [place] [phone] 15 May, 2016 [place] [address] [facility] [id number] [address] [place] [phone] 14 May, 2016 Liver enzyme elevation R74.8 [place] [address] [place] [id number] [address] [place] [phone] 14 May, 2016 Liver enzyme elevation R74.8 [place] [address] [place] [id number] [address] [place] [phone] 10 May, 2016 Shortness of breath on exert ion R06.02 ; Essential hypertension I10 ; Mixed hyperlipidemia E78.2 and Tobacco use Z72.0 [place] [address] [place] [id number] [address] [place] [phone] May, [facility] [place] [address] [id number] [address] [place] [phone] May, [facility], [place] [address] [id number] [address] [place] [phone] Apr, Anxiety F41.9 and Depression F32.9 [facility], [place] [address] [id number] [address] [place] [phone] Apr, [facility], [place] [address] [id number] [address] [place] [phone] Apr, [facility], [place] [address] [id number] [address] [place] [phone] Mar, Depression F32.9 and Anxiety F41.9 [facility], [place] [address] [id number] [address] [place] [phone] Mar, Anxiety F41.9 and Depression F32.9 [facility], [place] [address] [id number] [address] [place] [phone] Mar, Well woman exam (no gynecolo gical exam) Z00.00 [facility], [place] [address] [id number] [address] [place] [phone] Mar, [facility], [place] [address] [id number] [address] [place] [phone] Mar, [facility] [address] [id number] [address] [place] [id number] Feb, Dental caries K02.9 [facility], [place] [address] [id number] [address] [place] [phone] Feb, [facility], [place] [address] [id number] [address] [place] [phone] Feb, Anxiety F41.9 and Depression F32.9 [facility] [address] [id number] [place] [address] [id number] Feb, Dental examination Z01.20 [facility], [place] [address] [id number] [address] [place] [id number] Feb, [facility], [place] [address] [id number] [address] [place] [id number] Feb, [facility], [place] [address] [id number] [address] [place] [id number] Feb, Anxiety F41.9 and Depression F32.9 [facility], [place] [address] [id number] [address] [place] [id number] Jan, Severe episode of recurrent major depressive disorder, without psychotic features F33.2 and Anxiety disorder, unspecified F41.9 [facility], [place] [address] [id number] [address] [place] [phone] Jan, [facility], [place] [address] [id number] [address] [place] [phone] Dec, [facility], [place] [address] [id number] [address] [place] [phone] Dec, Anxiety F41.9 and Depression F32.9 [facility], [place] [address] [id number] [address] [place] [id number] Dec, Other specified transient ce rebral ischemias G45.8 and Nocturnal hypoxia G47.34 [facility], [place] [address] [id number] [address] [place] [phone] Dec, [facility], [place] [address] [id number] [address] [place] [phone] Dec, Other specified transient ce rebral ischemias G45.8 [facility], [place] [address] [id number] [address] [place] [id number] 16 Dec, 2015 Severe episode of recurrent major depressive disorder, without psychotic features F33.2 and Anxiety disorder, unspecified F41.9 [facility], [place] [address] [id number] [address] [place] [phone] 13 Dec, 2015 [facility], [place] [address] [id number] [address] [place] [id number] 13 Dec, 2015 Anxiety F41.9 and Depression F32.9 [facility], [place] [address] [facility] [id number] [address] [place] [phone] Dec, Anxiety F41.9 and Depression F32.9 [facility], [place] [address] [facility] [id number] [address] [place] [id number] Dec, [facility], [place] [address] [place] [id number] [place] [phone] November, Anxiety F41.9 and Depression F32.9 [place] [address] [place] [id number] [address] [place] [phone] November, Severe episode of recurrent major depressive disorder, without psychotic features F33.2 [place] [address] [place] [id number] [address] [place] [id number] November, Mixed hyperlipidemia E78.2 [place] [address] [place] [id number] [address] [place] [id number] November, Anxiety F41.9 and Depression F32.9 [place] [id number] [place] [phone] November, Prediabetes R73.09 ; Essenti al hypertension I10 ; Anxiety F41.9 ; Depression F32.9 ; Gastroesophageal reflux disease, esophagitis presence not specified K21.9 ; Primary osteoarthritis involving multiple joints M15.0 ; History of renal cell cancer Z85.528 ; Postnasal drip R09.82 ; Allergic rhinitis, unspecified J30.9 and Tobacco use Z72.0 [place] [address] [place] [id number] [address] [place] [id number] Oct, Anxiety F41.9 and Depression F32.9 [place] [address] [place] [id number] [address] [place] [phone] Oct, [place] [address] [place] [id number] [address] [place] [id number] Oct, [place] [address] [place] [id number] [address] [place] [id number] 14 Sep, 2015 Splenic artery aneurysm I72. 8 [facility], [place] [address] [id number] 10 Sep, 2015 Depression F32.9 ; Anxiety F 41.9 ; Chronic prescription benzodiazepine use Z79.899 and Splenic artery aneurysm I72.8 [facility], [place] [address] [id number] 10 Sep, 2015 Depression F32.9 and Anxiety F41.9 [facility], [place] [address] [id number] 02 Sep, 2015 [facility], [place] [address] [id number] 18 Aug, 2015 Dehydration E86.0 ; Diarrhea R19.7 ; Nausea R11.0 and Generalized abdominal pain R10.84 [place] [address] [id number] Aug, [facility], [place] [address] [id number] Jul, Depression F32.9 [facility], [place] [address] [place] [id number] [place] [phone] Jul, [facility], [place] [address] [place] [id number] [address] [place] [phone] Jul, Anxiety F41.9 and Depression F32.9 [facility], [place] [address] [place] [id number] [address] [place] [id number] Jul, [facility], [place] [address] [place] [id number] [address] [place] [id number] Jun, Epigastric pain R10.13 [facility], [place] [address] [place] [id number] [address] [place] [phone] Jun, [facility], [place] [address] [id number] Jun, [facility], [place] [address] [id number] [address] [place] [phone] May, [facility], [place] [address] [id number] [address] [place] [phone] May, [facility], [place] [address] [facility] [id number] [address] [place] [id number] Apr, [facility], [place] [address] [facility] [id number] [address] [place] [id number] Mar, Anxiety state, unspecified 3 00.00 ; Depression 311 ; Prediabetes 790.29 ; Generalized osteoarthrosis, involving multiple sites 715.09 and Hypertension 401.9 [facility], [place] [address] [facility] [id number] [address] [place] [id number] Mar, [facility], [place] [address] [facility] [id number] [address] [place] [id number] Feb, [facility], [place] [address] [facility] [id number] [address] [place] [phone] Jan, [facility], [place] [address] [id number] [address] [place] [phone] Jan, [facility], [place] [address] [facility] [id number] [address] [place] [phone] Jan, Generalized osteoarthrosis, involving multiple sites 715.09 [facility], [place] [address] [facility] [id number] [address] [place] [id number] Jan, Hx of renal cell cancer V10. 52 [facility], [place] [address] [facility] [id number] [address] [place] [phone] Dec, Generalized osteoarthrosis, involving multiple sites 715.09 and Hx of renal cell cancer V10.52 [facility], [place] [address] [id number] [address] [place] [phone] Dec, [facility], [place] [address] [facility] [id number] [address] [place] [id number] Dec, [facility], [place] [address] [id number] [address] [place] [id number] November, [facility], [place] [address] [id number] [address] [place] [phone] Oct, [facility], [place] [address] [id number] [address] [place] [phone] Oct, [facility], [place] [address] [id number] [address] [place] [phone] Sep, [facility], [place] [address] [id number] [address] [place] [phone] Sep, [facility], [place] [address] [id number] [address] [place] [id number] Sep, [facility], [place] [address] [id number] [address] [place] [phone] Sep, [facility], [place] [address] [id number] [address] [place] [phone] Aug, [facility], [place] [address] [id number] [address] [place] [phone] Aug, IMMUNIZATIONS No Known Immunizations SOCIAL HISTORY [...]
--- OUTSIDE RECORDS SUMMARY | 2020-02-08 07:14 | XMS REPORT ---
Author Author Emilee NO Organization [facility] Address [address] [place] [address] Care Team Providers Care Hospital Nurse Liaison Name Role Phone [email or web address] Unavailable PROBLEMS Type Condition ICD9-CM Code IXB51-AD Code Onset Dates Condition S tatus SNOMED Code Problem Mixed hyperlipidemia E78.2 Active 325933635 Problem Fatty liver K76.0 Active 23334915 7 Problem Obstructive sleep apnea G47.33 Active 50710675 Problem Allergic rhinitis, unspecified J30.9 Active 85125269 Problem Essential hypertension I10 Active 91286272 Problem History of renal cell cancer Z85.528 A ctive 016080099 Problem Prediabetes R73.09 Active 5263896 Problem Diastolic dysfunction I51.9 Active 3295492 Problem Body mass index (bmi) 50-59.9 , adult Z68.43 Active 546521707 Problem Paresthesia of both hands R20.2 Acti ve 119688968 Problem 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 Acti ve 868387172 Problem BMI 50.0-59.9, adult Z68.43 Active 280533758 Problem Restrictive lung disease J98.4 Activ e 91844388 Problem Splenic artery aneurysm I72.8 Active 74900772 Problem Liver mass R16.0 Active 081398617 Problem Generalized anxiety disorder F41.1 A ctive 47934622 Problem Major depressive disorder, recurrent episode, mild degree F33.0 Active 478496034 Problem Excoriation, neurotic L98.1 Active 34294109 Problem History of tobacco use Z87.891 Active 0406197130560 Problem Primary osteoarthritis involving multiple joints M 15.0 Active 591329327 Problem Isolated proteinuria without specific morphologic lesion R80.0 Active 76372760 Problem 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 Active 523468799 Problem Pulmonary emphysema, unspecified emphysema type J4 3.9 Active 69929124 Problem Chronic prescription opiate use Z79.899 Active 478131491 Problem Tobacco use Z72.0 Active 18794357 0 Problem Bilateral carpal tunnel syndrome G56.03 Active 39936656 Problem Chronic prescription benzodiazepine use Z79.899 Active 080851433 ALLERGIES No Known Allergies ENCOUNTERS Encounter Location Date Diagnosis [facility] [address] [facility] [id number] [address] [place] [phone] 07 May, 2018 [facility] [address] [facility] [id number] [address] [place] [id number] 15 Apr, 2018 [facility] [address] [facility] [id number] [address] [place] [phone] 20 Mar, 2018 [place] [address] [facility] [id number] [address] [place] [phone] 12 Mar, 2018 Generalized anxiety disorder F41.1 [place] [address] [facility] [id number] [address] [place] [id number] 10 Mar, 2018 [place] [address] [facility] [id number] [address] [place] [id number] 14 Feb, 2018 Generalized anxiety disorder F41.1 ; Major depressive disorder, recurrent episode, mild degree F33.0 and 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 [place] [address] [facility] [id number] [address] [place] [phone] 13 Feb, 2018 Generalized anxiety disorder F41.1 and Major depressive disorder, recurrent episode, mild degree F33.0 [place] [address] [facility] [id number] [address] [place] [phone] Feb, [place] [address] [facility] [id number] [address] [place] [phone] 10 Feb, 2018 Restrictive lung disease J98 .4 ; Pulmonary emphysema, unspecified emphysema type J43.9 and Body mass index (bmi) 50-59.9 , adult Z68.43 [place] [address] [facility] [id number] [address] [place] [phone] 08 Feb, 2018 Generalized anxiety disorder F41.1 ; Major depressive disorder, recurrent episode, mild degree F33.0 and 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 [facility] [address] [facility] [id number] [address] [place] [phone] Feb, [facility] [address] [facility] [id number] [address] [place] [phone] Jan, [facility] [address] [facility] [id number] [address] [place] [phone] Jan, Pulmonary emphysema, unspeci fied emphysema type J43.9 [facility] [address] [id number] [address] [place] [id number] Jan, Dental examination Z01.20 an d Dental caries K02.9 [facility] [address] [facility] [id number] [address] [place] [phone] Jan, Generalized anxiety disorder F41.1 and Major depressive disorder, recurrent episode, mild degree F33.0 [facility] [address] [facility] [id number] [address] [place] [phone] Jan, [facility] [address] [facility] [id number] [address] [place] [phone] Jan, Generalized anxiety disorder F41.1 [facility] [address] [facility] [id number] [address] [place] [phone] Jan, Oral abscess K12.2 and BMI 5 0.0-59.9, adult Z68.43 [facility] [address] [facility] [id number] [address] [place] [address] Dec, BMI 50.0-59.9, adult Z68.43 and Weight loss counseling, encounter for Z71.3 [facility] [address] [facility] [id number] [address] [place] [phone] Dec, [facility] [address] [facility] [id number] [address] [place] [phone] Dec, [facility] [address] [facility] [id number] [address] [place] [phone] November, [facility] [address] [place] [id number] [address] [place] [phone] November, [facility] [address] [place] [id number] [address] [place] [address] November, Pulmonary emphysema, unspeci fied emphysema type J43.9 ; Restrictive lung disease J98.4 ; BMI 50.0-59.9, adult Z68.43 ; History of renal cell cancer Z85.528 ; Essential hypertension I10 ; Mixed hyperlipidemia E78.2 and Fatty liver K76.0 [facility] [address] [place] [id number] [address] [place] [phone] November, Generalized anxiety disorder F41.1 [place] [address] [place] [id number] [address] [place] [address] November, Generalized anxiety disorder F41.1 and Major depressive disorder, recurrent episode, mild degree F33.0 [place] [address] [address] November, Generalized anxiety disorder F41.1 ; Major depressive disorder, recurrent episode, mild degree F33.0 and 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 [place] [address] [place] [id number] [address] [place] [phone] November, [facility] [address] [place] [id number] [address] [place] [phone] Oct, Generalized anxiety disorder F41.1 [place] [id number] [place] [phone] Oct, [facility] [address] [place] [id number] [address] [place] [phone] Oct, Influenza-like illness R69 [facility] [id number] [place] [address] Sep, Influenza-like illness R69 [facility] [address] [place] [id number] [address] [place] [phone] Sep, Generalized anxiety disorder F41.1 [place] [address] [facility] [id number] [address] [place] [phone] Sep, [facility] [address] [place] [id number] [address] [place] [address] Aug, [facility] [address] [facility] [id number] [address] [place] [phone] Aug, [facility] [address] [address] Aug, Generalized anxiety disorder F41.1 [facility] [address] [facility] [facility] [id number] [address] [place] [address] Aug, Influenza-like illness R69 a nd BMI 50.0-59.9, adult Z68.43 [facility] [address] [place] [id number] [address] [place] [address] Jul, Fatty liver K76.0 ; Restrict jean-paul lung disease J98.4 ; Diastolic dysfunction I51.9 ; Body mass index (bmi) 50-59.9 , adult Z68.43 and Chronic prescription opiate use Z79.899 [facility] [address] [place] [id number] [address] [place] [phone] Jul, Generalized anxiety disorder F41.1 [facility] [address] [place] [id number] [address] [place] [address] Jul, Generalized anxiety disorder F41.1 [facility] [address] [place] [id number] [address] [place] [phone] Jul, Primary osteoarthritis invol ving multiple joints M15.0 [facility] [address] [facility] [id number] [address] [place] [id number] Jun, Generalized anxiety disorder F41.1 [facility] [address] [place] [id number] [address] [place] [phone] Jun, [facility] [address] [place] [id number] [address] [place] [address] Jun, Mixed hyperlipidemia E78.2 [place] [address] [id number] [address] [place] [address] Jun, Generalized anxiety disorder F41.1 [place] [address] [facility] [id number] [address] [place] [phone] Jun, Generalized anxiety disorder F41.1 ; Major depressive disorder, recurrent episode, mild degree F33.0 and 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 [place] [address] [id number] [address] [place] [phone] May, [place] [address] [id number] [address] [place] [phone] May, Generalized anxiety disorder F41.1 [place] [address] [facility] [id number] [address] [place] [phone] May, Generalized anxiety disorder F41.1 [place] [address] [facility] [id number] [address] [place] [phone] May, Primary osteoarthritis invol ving multiple joints M15.0 [place] [address] [id number] [address] [place] [phone] Apr, Major depressive disorder, r ecurrent episode, mild degree F33.0 ; Generalized anxiety disorder F41.1 and Excoriation, neurotic L98.1 [place] [address] [facility] [id number] [address] [place] [phone] Apr, Primary osteoarthritis invol ving multiple joints M15.0 [place] [address] [id number] [address] [place] [phone] Apr, Essential hypertension I10 a nd Mixed hyperlipidemia E78.2 [place] [address] [id number] [address] [place] [phone] Apr, Generalized anxiety disorder F41.1 ; Major depressive disorder, recurrent episode, mild degree F33.0 and 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 [place] [address] [id number] [address] [place] [phone] Mar, Generalized anxiety disorder F41.1 ; Major depressive disorder, recurrent episode, mild degree F33.0 and 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 [facility] [address] [id number] [address] [place] [phone] Mar, Skin lesion L98.9 [facility] [address] [id number] [address] [place] [phone] Mar, Primary osteoarthritis invol ving multiple joints M15.0 [facility] [address] [id number] [address] [place] [phone] Mar, [place] [address] [id number] [address] [place] [phone] Mar, [place] [address] [id number] [address] [place] [phone] Feb, Major depressive disorder, r ecurrent episode, mild degree F33.0 ; Generalized anxiety disorder F41.1 and Excoriation, neurotic L98.1 [facility] [address] [id number] [address] [place] [phone] Feb, Generalized anxiety disorder F41.1 [place] [address] [facility] [id number] [address] [place] [phone] Feb, Primary osteoarthritis invol ving multiple joints M15.0 [facility] [address] [id number] [address] [place] [phone] Jan, [facility] [address] [facility] [id number] [address] [place] [phone] Jan, Essential hypertension I10 ; Splenic artery aneurysm I72.8 ; Liver mass R16.0 ; Restrictive lung disease J98.4 ; Primary osteoarthritis involving multiple joints M15.0 ; Mixed hyperlipidemia E78.2 ; Bilateral carpal tunnel syndrome G56.03 ; Body mass index (bmi) 50-59.9 , adult Z68.43 and History of tobacco use Z87.891 [place] [address] [facility] [id number] [address] [place] [phone] Jan, Major depressive disorder, r ecurrent episode, mild degree F33.0 and Generalized anxiety disorder F41.1 [facility] [address] [id number] [address] [place] [phone] Jan, [facility] [address] [id number] [address] [place] [phone] Jan, Generalized anxiety disorder F41.1 and Major depressive disorder, recurrent episode, mild degree F33.0 [facility] [address] [id number] [address] [place] [phone] Dec, Primary osteoarthritis invol ving multiple joints M15.0 [facility] [address] [id number] [address] [place] [phone] Dec, Generalized anxiety disorder F41.1 [facility] [address] [id number] [address] [place] [address] Dec, [facility] [address] [id number] [address] [place] [phone] Dec, Major depressive disorder, r ecurrent episode, mild degree F33.0 and Generalized anxiety disorder F41.1 [facility] [address] [id number] [address] [place] [phone] Dec, Generalized anxiety disorder F41.1 and Major depressive disorder, recurrent episode, mild degree F33.0 [facility] [address] [id number] [address] [place] [id number] November, Mild major depression F32.0 and Primary osteoarthritis involving multiple joints M15.0 [facility] [address] [id number] [address] [place] [address] November, Major depressive disorder, r ecurrent episode, mild degree F33.0 and Generalized anxiety disorder F41.1 [facility] [address] [id number] [address] [place] [address] November, Primary osteoarthritis invol ving multiple joints M15.0 ; Essential hypertension I10 ; Prediabetes R73.09 ; Mixed hyperlipidemia E78.2 ; Chronic prescription benzodiazepine use Z79.899 ; Chronic prescription opiate use Z79.899 ; Tobacco use Z72.0 ; Bilateral carpal tunnel syndrome G56.03 and Body mass index (bmi) 50-59.9 , adult Z68.43 [facility] [address] [place] [id number] [address] [place] [phone] November, Primary osteoarthritis invol ving multiple joints M15.0 and Mild major depression F32.0 [place] [id number] [place] [address] Oct, [place] [address] [id number] Oct, Primary osteoarthritis invol ving multiple joints M15.0 ; Essential hypertension I10 ; Prediabetes R73.09 ; Chronic prescription benzodiazepine use Z79.899 ; Chronic prescription opiate use Z79.899 ; Tobacco use Z72.0 ; Mixed hyperlipidemia E78.2 ; Bilateral carpal tunnel syndrome G56.03 ; Body mass index (bmi) 50-59.9 , adult Z68.43 and Encounter for immunization Z23 [place] [address] [address] Oct, Major depressive disorder, r ecurrent episode, mild degree F33.0 and Generalized anxiety disorder F41.1 [place] [address] [place] [id number] [address] [place] [id number] Oct, [place] [address] [place] [id number] [address] [place] [phone] Oct, [place] [address] [facility] [id number] [address] [place] [address] Sep, Mild major depression F32.0 [place] [address] [facility] [id number] [address] [place] [phone] Sep, [place] [address] [facility] [id number] [address] [place] [phone] Sep, Mild major depression F32.0 and Generalized anxiety disorder F41.1 [facility] [address] [facility] [id number] [address] [place] [phone] Sep, Paresthesia of both hands R2 0.2 and Cervical radiculopathy M54.12 [facility] [address] [facility] [id number] [address] [place] [address] Sep, [facility] [address] [facility] [id number] [place] [id number] Sep, [facility] [address] [facility] [id number] [address] [place] [address] Aug, Paresthesia of both hands R2 0.2 and Neck pain M54.2 [facility] [address] [facility] [id number] [place] [phone] Aug, [facility] [address] [facility] [id number] [place] [phone] Jul, Neck pain M54.2 and Paresthe eddie of both hands R20.2 [facility] [address] [facility] [id number] [address] [place] [address] Jul, Proteinuria, unspecified typ e R80.9 [facility] [address] [place] [id number] [address] [place] [address] Jul, Proteinuria, unspecified typ e R80.9 [facility] [address] [place] [id number] [address] [place] [address] Jul, [facility] [address] [address] Jul, Other specified transient ce rebral ischemias G45.8 [facility] [address] [place] [id number] [place] [address] Jun, Diastolic dysfunction I51.9 [facility] [address] [place] [id number] [address] [place] [id number] Jun, Diastolic dysfunction I51.9 [place] [address] [place] [id number] [address] [place] [address] Jun, Major depressive disorder, s david episode, unspecified F32.9 and Anxiety disorder, unspecified F41.9 [facility] [address] [facility] [id number] [address] [place] [phone] Jun, [facility] [address] [place] [id number] [address] [place] [address] Jun, [facility] [address] [place] [id number] [place] [address] May, Moderate major depression F3 2.1 and Generalized anxiety disorder F41.1 [place] [address] [place] [id number] [place] [address] 16 May, 2016 Major depressive disorder, s david episode, unspecified F32.9 and Anxiety disorder, unspecified F41.9 [place] [address] [place] [id number] [address] [place] [phone] 15 May, 2016 [facility] [address] [place] [id number] [address] [place] [phone] May, Liver enzyme elevation R74.8 [place] [address] [place] [id number] [place] [address] 14 May, 2016 Liver enzyme elevation R74.8 [place] [address] [place] [id number] [place] [address] 10 May, 2016 Shortness of breath on exert ion R06.02 ; Essential hypertension I10 ; Mixed hyperlipidemia E78.2 and Tobacco use Z72.0 [facility] [address] [place] [id number] [address] [place] [phone] May, [facility] [address] [facility] [id number] [address] [place] [phone] May, [facility] [address] [place] [id number] [address] [place] [phone] 06 Apr, 2016 Anxiety F41.9 and Depression F32.9 [facility] [address] [id number] [address] [place] [phone] Apr, [facility] [address] [id number] [address] [place] [phone] Apr, [facility] [address] [id number] [address] [place] [phone] Mar, Depression F32.9 and Anxiety F41.9 [facility] [address] [id number] [address] [place] [phone] 08 Mar, 2016 Anxiety F41.9 and Depression F32.9 [facility] [address] [id number] [address] [place] [address] Mar, Well woman exam (no gynecolo gical exam) Z00.00 [facility] [address] [id number] [address] [place] [phone] Mar, [facility] [address] [id number] [address] [place] [phone] Mar, [facility] [address] [id number] [address] [place] [id number] Feb, Dental caries K02.9 [facility] [address] [id number] [address] [place] [phone] Feb, [facility] [address] [id number] [address] [place] [phone] Feb, Anxiety F41.9 and Depression F32.9 [facility] [address] [id number] [address] [place] [id number] Feb, Dental examination Z01.20 [facility] [address] [id number] [address] [place] [phone] Feb, [facility] [address] [id number] [address] [place] [address] Feb, [facility] [address] [id number] [address] [place] [phone] Feb, Anxiety F41.9 and Depression F32.9 [facility] [address] [id number] [address] [place] [phone] Jan, Severe episode of recurrent major depressive disorder, without psychotic features F33.2 and Anxiety disorder, unspecified F41.9 [facility] [address] [id number] [address] [place] [phone] Jan, [facility] [address] [id number] [address] [place] [phone] Dec, [facility] [address] [id number] [address] [place] [phone] Dec, Anxiety F41.9 and Depression F32.9 [place] [address] [id number] [address] [place] [phone] 24 Dec, 2015 Other specified transient ce rebral ischemias G45.8 and Nocturnal hypoxia G47.34 [place] [address] [id number] [address] [place] [phone] Dec, [facility] [address] [id number] [address] [place] [phone] 17 Dec, 2015 Other specified transient ce rebral ischemias G45.8 [facility] [address] [id number] [address] [place] [phone] 16 Dec, 2015 Severe episode of recurrent major depressive disorder, without psychotic features F33.2 and Anxiety disorder, unspecified F41.9 [facility] [address] [id number] [address] [place] [phone] Dec, [facility] [address] [id number] [address] [place] [phone] Dec, Anxiety F41.9 and Depression F32.9 [facility] [address] [id number] [address] [place] [phone] 07 Dec, 2015 Anxiety F41.9 and Depression F32.9 [facility] [address] [id number] [address] [place] [phone] Dec, [place] [address] [facility] [id number] [address] [place] [phone] November, Anxiety F41.9 and Depression F32.9 [place] [address] [facility] [id number] [address] [place] [phone] November, Severe episode of recurrent major depressive disorder, without psychotic features F33.2 [place] [address] [place] [id number] [address] [place] [phone] November, Mixed hyperlipidemia E78.2 [place] [address] [address] [facility] [id number] [address] [place] [id number] November, Anxiety F41.9 and Depression F32.9 [place] [address] [address] [place] [id number] [address] [place] [id number] November, Prediabetes R73.09 ; Essenti al hypertension I10 ; Anxiety F41.9 ; Depression F32.9 ; Gastroesophageal reflux disease, esophagitis presence not specified K21.9 ; Primary osteoarthritis involving multiple joints M15.0 ; History of renal cell cancer Z85.528 ; Postnasal drip R09.82 ; Allergic rhinitis, unspecified J30.9 and Tobacco use Z72.0 [place] [address] [address] [place] [id number] [address] [place] [id number] Oct, Anxiety F41.9 and Depression F32.9 [place] [address] [place] [id number] [address] [place] [phone] 07 Oct, 2015 [place] [address] [facility] [id number] [address] [place] [phone] Oct, [place] [address] [place] [id number] [address] [place] [phone] 14 Sep, 2015 Splenic artery aneurysm I72. 8 [place] [address] [facility] [id number] [address] [place] [phone] 10 Sep, 2015 Depression F32.9 ; Anxiety F 41.9 ; Chronic prescription benzodiazepine use Z79.899 and Splenic artery aneurysm I72.8 [facility] [address] [facility] [id number] [address] [place] [phone] Sep, Depression F32.9 and Anxiety F41.9 [facility] [address] [facility] [id number] [address] [place] [phone] Sep, [facility] [address] [facility] [id number] [address] [place] [phone] Aug, Dehydration E86.0 ; Diarrhea R19.7 ; Nausea R11.0 and Generalized abdominal pain R10.84 [facility] [address] [facility] [id number] [address] [place] [phone] Aug, [facility] [address] [place] [id number] [address] [place] [phone] Jul, Depression F32.9 [facility] [address] [place] [id number] [address] [place] [phone] Jul, [facility] [address] [facility] [id number] [address] [place] [phone] Jul, Anxiety F41.9 and Depression F32.9 [facility] [address] [facility] [id number] [address] [place] [phone] Jul, [facility] [address] [place] [id number] [address] [place] [phone] Jun, Epigastric pain R10.13 [facility] [address] [facility] [id number] [address] [place] [phone] Jun, [facility] [address] [facility] [id number] [address] [place] [phone] Jun, [facility] [address] [facility] [id number] [address] [place] [phone] May, [facility] [address] [place] [id number] [address] [place] [phone] May, [facility] [address] [place] [id number] [address] [place] [phone] Apr, [facility] [address] [id number] [address] [place] [phone] Mar, Anxiety state, unspecified 3 00.00 ; Depression 311 ; Prediabetes 790.29 ; Generalized osteoarthrosis, involving multiple sites 715.09 and Hypertension 401.9 [facility] [address] [id number] [address] [place] [phone] Mar, [facility] [address] [id number] [address] [place] [phone] Feb, [facility] [address] [id number] [address] [place] [phone] Jan, [facility] [address] [id number] [address] [place] [phone] Jan, [facility] [address] [id number] [address] [place] [phone] Jan, Generalized osteoarthrosis, involving multiple sites 715.09 [facility] [address] [id number] [address] [place] [phone] Jan, Hx of renal cell cancer V10. 52 [facility] [address] [id number] [address] [place] [phone] Dec, Generalized osteoarthrosis, involving multiple sites 715.09 and Hx of renal cell cancer V10.52 [facility] [address] [id number] [address] [place] [phone] Dec, [facility] [address] [id number] [address] [place] [phone] Dec, [facility] [address] [id number] [address] [place] [phone] November, [facility] [address] [id number] [address] [place] [phone] Oct, [facility] [address] [id number] [address] [place] [phone] Oct, [facility] [address] [facility] [id number] [address] [place] [phone] Sep, [facility] [address] [facility] [id number] [address] [place] [phone] Sep, [facility] [address] [facility] [id number] [address] [place] [phone] Sep, [facility] [address] [facility] [id number] [address] [place] [phone] Sep, [facility] [address] [facility] [id number] [address] [place] [phone] Aug, [facility] [address] [facility] [id number] [address] [place] [phone] Aug, IMMUNIZATIONS No Known Immunizations SOCIAL HISTORY Never Assessed REASON FOR VISIT f/u PLAN OF CARE Activity Details Follow Up 3 Months Reason: Follow-up VITAL SIGNS Height 62 in 2018-03-05 Weight 293.8 lbs 2018-03-05 Heart Rate 92 bpm 2018-03-05 Respiratory Rate 20 2018-03-05 BMI 53.73 kg/m2 2018-03-05 Blood pressure systolic 132 mmHg 2018-03-05 Blood pressure diastolic 76 mmHg 2018-03-05 MEDICATIONS Medication Instructions Dosage Frequency Start Date End Date Duration S tatus Remeron 15 mg Orally Once a day at bedtime 1 tablet at bedtime Active Atenolol 50 MG TAKE ONE TABLET BY MOUTH ONCE DAILY 90 Active Cymbalta 30 MG Orally Once a day 3 capsules 24h Active Wellbutrin XL 150 MG Orally Once a day (along wit h 300 mg tablet to equal 450 mg daily 1 tablet in the morning 30 days A ctive Omeprazole 40 MG TAKE ONE CAPSULE BY MOUTH ONCE DAILY 30 Active Stiolto Respimat 2.5-2.5 MCG/ACT Inhalation Once a day 2 puffs 24h November, Not-Taking Tizanidine HCl 2 MG Orally every 8 hours 1 tablet as needed 8h 30 Active Diazepam 5 mg Orally Once a day as needed for anxiety 0.5 tablet Active Furosemide 20 MG TAKE ONE TABLET BY MOUTH ONCE DAILY 30 Active Atorvastatin Calcium 40 MG TAKE ONE TABLET BY MOUTH ONCE DAILY 30 Active Hydrocodone-Acetaminophen 5-325 MG Orally 2 times a day as n eeded for pain take 1 tablet Jan, 28 Active Wellbutrin XL 300 MG Orally Once a day 1 tablet in the morning 24h Active Vitamin E Complete Activ e ProAir HFA 108 (90 Base) MCG/ACT Inhalation every 4 hrs 2 puffs as ne eded 4h 17 Active Potassium Chloride ER 20 MEQ TAKE ONE TABLET BY MOUTH ONCE DAILY WITH FOOD 30 Active RESULTS No Results PROCEDURES No [...]
--- OUTSIDE RECORDS SUMMARY | 2020-02-08 07:14 | XMS REPORT ---
Author Author Emilee CASSIDY Organization [facility] Address [address] [place] [address] Care Team Providers Care Dba Manager Name Role Phone LOVELY CASSIDY Unavailable PROBLEMS Type Condition ICD9-CM Code LQZ08-TQ Code Onset Dates Condition S tatus SNOMED Code Problem Mixed hyperlipidemia E78.2 Active 250463576 Problem Fatty liver K76.0 Active 11044707 7 Problem Obstructive sleep apnea G47.33 Active 26425408 Problem Allergic rhinitis, unspecified J30.9 Active 77025284 Problem Essential hypertension I10 Active 78293317 Problem History of renal cell cancer Z85.528 A ctive 501232519 Problem Prediabetes R73.09 Active 5149507 Problem Diastolic dysfunction I51.9 Active 6194841 Problem Body mass index (bmi) 50-59.9 , adult Z68.43 Active 007581392 Problem Paresthesia of both hands R20.2 Acti ve 130218387 Problem 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 Acti ve 991966867 Problem BMI 50.0-59.9, adult Z68.43 Active 124377101 Problem Restrictive lung disease J98.4 Activ e 55523885 Problem Splenic artery aneurysm I72.8 Active 12220806 Problem Liver mass R16.0 Active 463261282 Problem Generalized anxiety disorder F41.1 A ctive 44363381 Problem Major depressive disorder, recurrent episode, mild degree F33.0 Active 795102574 Problem Excoriation, neurotic L98.1 Active 85645127 Problem History of tobacco use Z87.891 Active 7341827709614 Problem Primary osteoarthritis involving multiple joints M 15.0 Active 544980226 Problem Isolated proteinuria without specific morphologic lesion R80.0 Active 08030463 Problem 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 Active 839530316 Problem Pulmonary emphysema, unspecified emphysema type J4 3.9 Active 27402901 Problem Chronic prescription opiate use Z79.899 Active 320806135 Problem Tobacco use Z72.0 Active 76041371 0 Problem Bilateral carpal tunnel syndrome G56.03 Active 18712193 Problem Chronic prescription benzodiazepine use Z79.899 Active 732835497 ALLERGIES No Information ENCOUNTERS Encounter Location Date Diagnosis [facility] [address] [facility] [id number] [address] [place] [id number] 07 May, 2018 [facility] [address] [facility] [id number] [address] [place] [id number] 15 Apr, 2018 [facility] [address] [facility] [id number] [address] [place] [phone] Mar, [facility] [address] [facility] [id number] [address] [place] [id number] 18 Mar, 2018 [facility] [address] [facility] [id number] [address] [place] [phone] 12 Mar, 2018 Generalized anxiety disorder F41.1 [facility] [address] [place] [id number] [address] [place] [phone] 10 Mar, 2018 [facility] [address] [facility] [id number] [address] [place] [id number] 14 Feb, 2018 Generalized anxiety disorder F41.1 ; Major depressive disorder, recurrent episode, mild degree F33.0 and 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 [place] [address] [place] [id number] [address] [place] [phone] 13 Feb, 2018 Generalized anxiety disorder F41.1 and Major depressive disorder, recurrent episode, mild degree F33.0 [facility] [address] [facility] [id number] [address] [place] [phone] Feb, [facility] [address] [place] [id number] [place] [phone] Feb, Restrictive lung disease J98 .4 ; Pulmonary emphysema, unspecified emphysema type J43.9 and Body mass index (bmi) 50-59.9 , adult Z68.43 [place] [address] [place] [id number] [address] [place] [phone] Feb, Generalized anxiety disorder F41.1 ; Major depressive disorder, recurrent episode, mild degree F33.0 and 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 [facility] [address] [id number] [address] [place] [id number] Feb, [facility] [address] [id number] [address] [place] [id number] Jan, [facility] [address] [id number] [address] [place] [id number] Jan, Pulmonary emphysema, unspeci fied emphysema type J43.9 [facility] [address] [id number] [address] [place] [id number] Jan, Dental examination Z01.20 an d Dental caries K02.9 [place] [address] [facility] [id number] [address] [place] [phone] Jan, Generalized anxiety disorder F41.1 and Major depressive disorder, recurrent episode, mild degree F33.0 [facility] [address] [facility] [id number] [address] [place] [id number] Jan, [facility] [address] [facility] [id number] [address] [place] [phone] Jan, Generalized anxiety disorder F41.1 [facility] [address] [facility] [id number] [address] [place] [phone] Jan, Oral abscess K12.2 and BMI 5 0.0-59.9, adult Z68.43 [facility] [address] [facility] [id number] [address] [place] [id number] Dec, BMI 50.0-59.9, adult Z68.43 and Weight loss counseling, encounter for Z71.3 [facility] [address] [facility] [id number] [address] [place] [phone] Dec, [facility] [address] [facility] [id number] [address] [place] [phone] Dec, [facility] [address] [place] [id number] [address] [place] [address] November, [facility] [address] [id number] November, [facility] [address] [address] November, Pulmonary emphysema, unspeci fied emphysema type J43.9 ; Restrictive lung disease J98.4 ; BMI 50.0-59.9, adult Z68.43 ; History of renal cell cancer Z85.528 ; Essential hypertension I10 ; Mixed hyperlipidemia E78.2 and Fatty liver K76.0 [facility] [address] [address] November, Generalized anxiety disorder F41.1 [place] [address] [address] November, Generalized anxiety disorder F41.1 and Major depressive disorder, recurrent episode, mild degree F33.0 [facility] [address] [address] November, Generalized anxiety disorder F41.1 ; Major depressive disorder, recurrent episode, mild degree F33.0 and 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 [facility] [address] [place] [id number] [address] [place] [address] November, [facility] [address] [address] Oct, Generalized anxiety disorder F41.1 [facility] [address] [place] [id number] [address] [place] [phone] Oct, [facility] [address] [address] Oct, Influenza-like illness R69 [facility] [address] [place] [id number] [address] [place] [address] Sep, Influenza-like illness R69 [facility] [address] [address] Sep, Generalized anxiety disorder F41.1 [facility] [address] [facility] [id number] [address] [place] [phone] Sep, [facility] [address] [place] [id number] [address] [place] [phone] Aug, [facility] [address] [place] [id number] [address] [place] [address] Aug, [facility] [address] [place] [id number] [address] [place] [phone] Aug, Generalized anxiety disorder F41.1 [facility] [address] [place] [id number] [address] [place] [id number] Aug, Influenza-like illness R69 a nd BMI 50.0-59.9, adult Z68.43 [facility] [id number] [place] [address] Jul, Fatty liver K76.0 ; Restrict jean-paul lung disease J98.4 ; Diastolic dysfunction I51.9 ; Body mass index (bmi) 50-59.9 , adult Z68.43 and Chronic prescription opiate use Z79.899 [facility] [address] [place] [id number] [address] [place] [phone] Jul, Generalized anxiety disorder F41.1 [facility] [address] [place] [id number] [address] [place] [address] Jul, Generalized anxiety disorder F41.1 [facility] [address] [facility] [id number] [address] [place] [address] Jul, Primary osteoarthritis invol ving multiple joints M15.0 [facility] [address] [place] [id number] [address] [place] [phone] Jun, Generalized anxiety disorder F41.1 [facility] [address] [place] [id number] [address] [place] [phone] Jun, [facility] [address] [place] [address] Jun, Mixed hyperlipidemia E78.2 [facility] [address] [facility] [id number] [address] [place] [address] Jun, Generalized anxiety disorder F41.1 [facility] [address] [facility] [id number] [address] [place] [phone] Jun, Generalized anxiety disorder F41.1 ; Major depressive disorder, recurrent episode, mild degree F33.0 and Habitual self-excoriation F42.4 [place] [address] [id number] [address] [place] [phone] May, [facility] [address] [facility] [id number] [address] [place] [phone] May, Generalized anxiety disorder F41.1 [place] [address] [facility] [id number] [address] [place] [id number] May, Generalized anxiety disorder F41.1 [facility] [address] [facility] [id number] [address] [place] [phone] May, Primary osteoarthritis invol ving multiple joints M15.0 [place] [address] [facility] [id number] [address] [place] [id number] Apr, Major depressive disorder, r ecurrent episode, mild degree F33.0 ; Generalized anxiety disorder F41.1 and Excoriation, neurotic L98.1 [place] [address] [facility] [id number] [address] [place] [address] Apr, Primary osteoarthritis invol ving multiple joints M15.0 [facility] [address] [id number] [address] [place] [id number] Apr, Essential hypertension I10 a nd Mixed hyperlipidemia E78.2 [facility] [address] [facility] [id number] [address] [place] [id number] Apr, Generalized anxiety disorder F41.1 ; Major depressive disorder, recurrent episode, mild degree F33.0 and Habitual self-excoriation F42.4 [facility] [address] [id number] [address] [place] [id number] 06 Mar, 2017 Generalized anxiety disorder F41.1 ; Major depressive disorder, recurrent episode, mild degree F33.0 and Habitual self-excoriation F42.4 [facility] [address] [id number] [address] [place] [address] Mar, Skin lesion L98.9 [facility] [address] [id number] [address] [place] [id number] Mar, Primary osteoarthritis invol ving multiple joints M15.0 [facility] [address] [id number] [address] [place] [address] Mar, [facility] [address] [id number] [address] [place] [id number] Mar, [facility] [address] [id number] [address] [place] [phone] Feb, Major depressive disorder, r ecurrent episode, mild degree F33.0 ; Generalized anxiety disorder F41.1 and Excoriation, neurotic L98.1 [facility] [address] [id number] [address] [place] [phone] Feb, Generalized anxiety disorder F41.1 [facility] [address] [id number] [address] [place] [id number] Feb, Primary osteoarthritis invol ving multiple joints M15.0 [facility] [address] [id number] [address] [place] [id number] Jan, [facility] [address] [id number] [address] [place] [address] Jan, Essential hypertension I10 ; Splenic artery aneurysm I72.8 ; Liver mass R16.0 ; Restrictive lung disease J98.4 ; Primary osteoarthritis involving multiple joints M15.0 ; Mixed hyperlipidemia E78.2 ; Bilateral carpal tunnel syndrome G56.03 ; Body mass index (bmi) 50-59.9 , adult Z68.43 and History of tobacco use Z87.891 [facility] [address] [id number] [address] [place] [address] Jan, Major depressive disorder, r ecurrent episode, mild degree F33.0 and Generalized anxiety disorder F41.1 [facility] [address] [id number] [address] [place] [phone] Jan, [facility] [address] [id number] [address] [place] [address] Jan, Generalized anxiety disorder F41.1 and Major depressive disorder, recurrent episode, mild degree F33.0 [facility] [address] [id number] [address] [place] [phone] Dec, Primary osteoarthritis invol ving multiple joints M15.0 [facility] [address] [id number] [address] [place] [address] Dec, Generalized anxiety disorder F41.1 [facility] [address] [id number] [address] [place] [phone] Dec, [facility] [address] [id number] [address] [place] [phone] Dec, Major depressive disorder, r ecurrent episode, mild degree F33.0 and Generalized anxiety disorder F41.1 [facility] [address] [id number] [address] [place] [id number] Dec, Generalized anxiety disorder F41.1 and Major depressive disorder, recurrent episode, mild degree F33.0 [facility] [address] [id number] [address] [place] [address] November, Mild major depression F32.0 and Primary osteoarthritis involving multiple joints M15.0 [facility] [address] [id number] [address] [place] [address] November, Major depressive disorder, r ecurrent episode, mild degree F33.0 and Generalized anxiety disorder F41.1 [facility] [address] [id number] [address] [place] [address] November, Primary osteoarthritis invol ving multiple joints M15.0 ; Essential hypertension I10 ; Prediabetes R73.09 ; Mixed hyperlipidemia E78.2 ; Chronic prescription benzodiazepine use Z79.899 ; Chronic prescription opiate use Z79.899 ; Tobacco use Z72.0 ; Bilateral carpal tunnel syndrome G56.03 and Body mass index (bmi) 50-59.9 , adult Z68.43 [facility] [id number] [place] [address] November, Primary osteoarthritis invol ving multiple joints M15.0 and Mild major depression F32.0 [place] [address] [place] [id number] [address] [place] [address] Oct, [place] [address] [address] Oct, Primary osteoarthritis invol ving multiple joints M15.0 ; Essential hypertension I10 ; Prediabetes R73.09 ; Chronic prescription benzodiazepine use Z79.899 ; Chronic prescription opiate use Z79.899 ; Tobacco use Z72.0 ; Mixed hyperlipidemia E78.2 ; Bilateral carpal tunnel syndrome G56.03 ; Body mass index (bmi) 50-59.9 , adult Z68.43 and Encounter for immunization Z23 [place] [address] [place] [id number] [address] [place] [address] Oct, Major depressive disorder, r ecurrent episode, mild degree F33.0 and Generalized anxiety disorder F41.1 [place] [address] [place] [address] Oct, [place] [address] [place] [id number] [address] [place] [address] Oct, [place] [address] [place] [id number] [address] [place] [address] Sep, Mild major depression F32.0 [facility] [address] [place] [id number] [address] [place] [phone] Sep, [place] [address] [address] Sep, Mild major depression F32.0 and Generalized anxiety disorder F41.1 [place] [address] [address] Sep, Paresthesia of both hands R2 0.2 and Cervical radiculopathy M54.12 [place] [address] [address] Sep, [place] [address] [address] Sep, [place] [address] [address] Aug, Paresthesia of both hands R2 0.2 and Neck pain M54.2 [place] [address] [address] Aug, [place] [address] [address] Jul, Neck pain M54.2 and Paresthe eddie of both hands R20.2 [place] [address] [address] Jul, Proteinuria, unspecified typ e R80.9 [place] [address] [address] Jul, Proteinuria, unspecified typ e R80.9 [place] [address] [address] Jul, [place] [address] [address] Jul, Other specified transient ce rebral ischemias G45.8 [place] [address] [address] Jun, Diastolic dysfunction I51.9 [place] [address] [address] 08 Jun, 2016 Diastolic dysfunction I51.9 [facility] [address] [place] [id number] [address] [place] [address] Jun, Major depressive disorder, s david episode, unspecified F32.9 and Anxiety disorder, unspecified F41.9 [facility] [address] [place] [id number] [address] [place] [address] Jun, [facility] [address] [place] [id number] [place] [address] Jun, [facility] [address] [place] [id number] [place] [address] May, Moderate major depression F3 2.1 and Generalized anxiety disorder F41.1 [facility] [address] [place] [id number] [place] [address] 16 May, 2016 Major depressive disorder, s david episode, unspecified F32.9 and Anxiety disorder, unspecified F41.9 [facility] [address] [place] [id number] [address] [place] [address] 15 May, 2016 [facility] [address] [address] 14 May, 2016 Liver enzyme elevation R74.8 [facility] [address] [address] 14 May, 2016 Liver enzyme elevation R74.8 [facility] [address] [address] 10 May, 2016 Shortness of breath on exert ion R06.02 ; Essential hypertension I10 ; Mixed hyperlipidemia E78.2 and Tobacco use Z72.0 [facility] [address] [address] 03 May, 2016 [facility] [address] [place] [id number] [address] [place] [id number] 02 May, 2016 [facility] [address] [address] Apr, Anxiety F41.9 and Depression F32.9 [facility] [address] [id number] [address] [place] [address] Apr, [facility] [address] [id number] [address] [place] [address] Apr, [facility] [address] [id number] [address] [place] [address] Mar, Depression F32.9 and Anxiety F41.9 [facility] [address] [id number] [address] [place] [address] 08 Mar, 2016 Anxiety F41.9 and Depression F32.9 [facility] [address] [id number] [address] [place] [address] Mar, Well woman exam (no gynecolo gical exam) Z00.00 [facility] [address] [id number] [address] [place] [address] Mar, [facility] [address] [id number] [address] [place] [address] Mar, [facility] [address] [id number] [address] [place] [address] [id number] Feb, Dental caries K02.9 [facility] [address] [id number] [address] [place] [address] Feb, [facility] [address] [id number] [address] [place] [address] Feb, Anxiety F41.9 and Depression F32.9 [facility] [address] [id number] [address] [place] [id number] Feb, Dental examination Z01.20 [facility] [address] [id number] [address] [place] [address] Feb, [facility] [address] [id number] [address] [place] [address] Feb, [facility] [address] [id number] [address] [place] [address] Feb, Anxiety F41.9 and Depression F32.9 [facility] [address] [id number] [address] [place] [address] Jan, Severe episode of recurrent major depressive disorder, without psychotic features F33.2 and Anxiety disorder, unspecified F41.9 [facility] [address] [id number] [address] [place] [address] Jan, [facility] [address] [id number] [address] [place] [address] Dec, [facility] [address] [id number] [address] [place] [address] Dec, Anxiety F41.9 and Depression F32.9 [facility] [address] [id number] [address] [place] [address] Dec, Other specified transient ce rebral ischemias G45.8 and Nocturnal hypoxia G47.34 [facility] [address] [id number] [address] [place] [address] Dec, [facility] [address] [id number] [address] [place] [address] Dec, Other specified transient ce rebral ischemias G45.8 [facility] [address] [id number] [address] [place] [address] 16 Dec, 2015 Severe episode of recurrent major depressive disorder, without psychotic features F33.2 and Anxiety disorder, unspecified F41.9 [facility] [address] [id number] [address] [place] [address] Dec, [facility] [address] [id number] [address] [place] [phone] Dec, Anxiety F41.9 and Depression F32.9 [facility] [address] [id number] [address] [place] [id number] Dec, Anxiety F41.9 and Depression F32.9 [place] [address] [place] [id number] [address] [place] [phone] Dec, [place] [address] [place] [id number] [place] [phone] November, Anxiety F41.9 and Depression F32.9 [place] [address] [place] [id number] [place] [phone] November, Severe episode of recurrent major depressive disorder, without psychotic features F33.2 [place] [address] [place] [id number] [place] [phone] November, Mixed hyperlipidemia E78.2 [place] [address] [place] [id number] [place] [address] November, Anxiety F41.9 and Depression F32.9 [place] [address] [address] November, Prediabetes R73.09 ; Essenti al hypertension I10 ; Anxiety F41.9 ; Depression F32.9 ; Gastroesophageal reflux disease, esophagitis presence not specified K21.9 ; Primary osteoarthritis involving multiple joints M15.0 ; History of renal cell cancer Z85.528 ; Postnasal drip R09.82 ; Allergic rhinitis, unspecified J30.9 and Tobacco use Z72.0 [place] [address] [place] [id number] [address] [place] [address] Oct, Anxiety F41.9 and Depression F32.9 [place] [address] [place] [id number] [address] [place] [id number] Oct, [place] [address] [id number] Oct, [place] [address] [place] [id number] [place] [phone] 14 Sep, 2015 Splenic artery aneurysm I72. 8 [place] [address] [id number] Sep, Depression F32.9 ; Anxiety F 41.9 ; Chronic prescription benzodiazepine use Z79.899 and Splenic artery aneurysm I72.8 [facility] [address] [id number] Sep, Depression F32.9 and Anxiety F41.9 [facility] [address] [id number] Sep, [facility] [address] [address] Aug, Dehydration E86.0 ; Diarrhea R19.7 ; Nausea R11.0 and Generalized abdominal pain R10.84 [facility] [address] [address] Aug, [facility] [address] [address] Jul, Depression F32.9 [facility] [address] [id number] Jul, [facility] [address] [id number] Jul, Anxiety F41.9 and Depression F32.9 [facility] [address] [address] Jul, [facility] [address] [address] Jun, Epigastric pain R10.13 [facility] [address] [place] [id number] [address] [place] [phone] Jun, [facility] [address] [id number] Jun, [facility] [address] [place] [id number] [address] [place] [id number] May, [facility] [address] [id number] May, [facility] [address] [id number] [address] [place] [phone] Apr, [facility] [address] [id number] [address] [place] [id number] Mar, Anxiety state, unspecified 3 00.00 ; Depression 311 ; Prediabetes 790.29 ; Generalized osteoarthrosis, involving multiple sites 715.09 and Hypertension 401.9 [facility] [address] [id number] [address] [place] [id number] Mar, [facility] [address] [id number] [address] [place] [phone] Feb, [facility] [address] [id number] [address] [place] [phone] Jan, [facility] [address] [id number] [address] [place] [phone] Jan, [facility] [address] [id number] [address] [place] [id number] Jan, Generalized osteoarthrosis, involving multiple sites 715.09 [facility] [address] [id number] [address] [place] [phone] Jan, Hx of renal cell cancer V10. 52 [facility] [address] [id number] [address] [place] [id number] Dec, Generalized osteoarthrosis, involving multiple sites 715.09 and Hx of renal cell cancer V10.52 [facility] [address] [id number] [address] [place] [phone] Dec, [facility] [address] [id number] [address] [place] [id number] Dec, [facility] [address] [id number] [address] [place] [id number] November, [facility] [address] [id number] [address] [place] [phone] Oct, [facility] [address] [id number] [address] [place] [id number] Oct, [facility] [address] [id number] [address] [place] [phone] Sep, [facility] [address] [id number] [address] [place] [phone] Sep, [facility] [address] [id number] [address] [place] [phone] Sep, [facility] [address] [id number] [address] [place] [phone] Sep, [facility] [address] [id number] [address] [place] [phone] Aug, [facility] [address] [facility] [id number] [address] [place] [phone] Aug, IMMUNIZATIONS No Known Immunizations SOCIAL HISTORY Never Assessed REASON FOR VISIT Follow-up Depression/Anxiety PLAN OF CARE Activity Details Follow Up 4 Weeks Reason: Follow-up VITAL SIGNS MEDICATIONS Unknown Medications RESULTS No Results PROCEDURES Procedure Date Ordered Result Body Site Psychotherapy, patient &/family, 30 minutes, established patient Mar 10, 2018 INSTRUCTIONS MEDICATIONS ADMINISTERED No Known [...]
--- OUTSIDE RECORDS SUMMARY | 2020-02-08 07:14 | XMS REPORT ---
Author Author Emilee MAY Organization [facility] Address [address] [place] [address] Care Team Providers Care Edi Programmer Analyst Name Role Phone LALOJEZALBANIA Unavailable PROBLEMS Type Condition ICD9-CM Code UFW18-UG Code Onset Dates Condition S tatus SNOMED Code Problem Mixed hyperlipidemia E78.2 Active 786323379 Problem Fatty liver K76.0 Active 84029826 7 Problem Obstructive sleep apnea G47.33 Active 84958649 Problem Allergic rhinitis, unspecified J30.9 Active 94498842 Problem Essential hypertension I10 Active 19015697 Problem History of renal cell cancer Z85.528 A ctive 975423573 Problem Prediabetes R73.09 Active 6303884 Problem Diastolic dysfunction I51.9 Active 3685851 Problem Body mass index (bmi) 50-59.9 , adult Z68.43 Active 389494140 Problem Paresthesia of both hands R20.2 Acti ve 976721437 Problem Habitual self-excoriation F42.4 Acti ve 307203369 Problem BMI 50.0-59.9, adult Z68.43 Active 176640954 Problem Restrictive lung disease J98.4 Activ e 95287586 Problem Splenic artery aneurysm I72.8 Active 15312055 Problem Liver mass R16.0 Active 214629439 Problem Generalized anxiety disorder F41.1 A ctive 23889520 Problem Major depressive disorder, recurrent episode, mild degree F33.0 Active 621621454 Problem Excoriation, neurotic L98.1 Active 89666336 Problem History of tobacco use Z87.891 Active 4221781265113 Problem Primary osteoarthritis involving multiple joints M 15.0 Active 591679502 Problem Isolated proteinuria without specific morphologic lesion R80.0 Active 58406483 Problem 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 [id number] [address] [place] [id number] 07 May, 2018 [facility] [address] [facility] [id number] [address] [place] [id number] 15 Apr, 2018 [facility] [address] [facility] [id number] [address] [place] [id number] 20 Mar, 2018 [place] [address] [facility] [id number] [address] [place] [id number] 12 Mar, 2018 Generalized anxiety disorder F41.1 [facility] [address] [facility] [id number] [address] [place] [phone] Mar, [facility] [address] [place] [id number] [address] [place] [phone] 14 Feb, 2018 Generalized anxiety disorder F41.1 ; Major depressive disorder, recurrent episode, mild degree F33.0 and Habitual self-excoriation F42.4 [place] [address] [place] [id number] [address] [place] [phone] 13 Feb, 2018 Generalized anxiety disorder F41.1 and Major depressive disorder, recurrent episode, mild degree F33.0 [facility] [address] [place] [id number] [address] [place] [phone] Feb, [place] [address] [place] [id number] [address] [place] [id number] 10 Feb, 2018 Restrictive lung disease J98 .4 ; Pulmonary emphysema, unspecified emphysema type J43.9 and Body mass index (bmi) 50-59.9 , adult Z68.43 [facility] [address] [facility] [id number] [address] [place] [id number] 08 Feb, 2018 Generalized anxiety disorder F41.1 ; Major depressive disorder, recurrent episode, mild degree F33.0 and Habitual self-excoriation F42.4 [facility] [address] [facility] [id number] [address] [place] [phone] Feb, [facility] [address] [facility] [id number] [address] [place] [id number] Jan, [facility] [address] [facility] [id number] [address] [place] [phone] Jan, Pulmonary emphysema, unspeci fied emphysema type J43.9 [facility] [address] [id number] [address] [place] [id number] Jan, Dental examination Z01.20 an d Dental caries K02.9 [facility] [address] [facility] [id number] [address] [place] [phone] Jan, Generalized anxiety disorder F41.1 and Major depressive disorder, recurrent episode, mild degree F33.0 [facility] [address] [place] [id number] [address] [place] [phone] Jan, [facility] [address] [facility] [id number] [address] [place] [id number] Jan, Generalized anxiety disorder F41.1 [facility] [address] [facility] [id number] [address] [place] [id number] Jan, Oral abscess K12.2 and BMI 5 0.0-59.9, adult Z68.43 [facility] [address] [place] [id number] [address] [place] [id number] Dec, BMI 50.0-59.9, adult Z68.43 and Weight loss counseling, encounter for Z71.3 [facility] [address] [facility] [id number] [address] [place] [id number] Dec, [facility] [address] [facility] [id number] [address] [place] [id number] Dec, [facility] [address] [facility] [id number] [address] [place] [phone] November, [facility] [address] [place] [id number] [address] [place] [phone] November, [facility] [address] [address] November, Pulmonary emphysema, unspeci fied emphysema type J43.9 ; Restrictive lung disease J98.4 ; BMI 50.0-59.9, adult Z68.43 ; History of renal cell cancer Z85.528 ; Essential hypertension I10 ; Mixed hyperlipidemia E78.2 and Fatty liver K76.0 [facility] [address] [place] [id number] [address] [place] [phone] November, Generalized anxiety disorder F41.1 [place] [address] [address] November, Generalized anxiety disorder F41.1 and Major depressive disorder, recurrent episode, mild degree F33.0 [place] [address] [address] November, Generalized anxiety disorder F41.1 ; Major depressive disorder, recurrent episode, mild degree F33.0 and Habitual self-excoriation F42.4 [place] [address] [address] November, [facility] [address] [place] [id number] [place] [address] Oct, Generalized anxiety disorder F41.1 [place] [address] [address] Oct, [place] [address] [place] [id number] [address] [place] [phone] Oct, Influenza-like illness R69 [place] [address] [address] Sep, Influenza-like illness R69 [place] [address] [place] [id number] [address] [place] [phone] Sep, Generalized anxiety disorder F41.1 [place] [address] [place] [id number] [address] [place] [phone] Sep, [facility] [address] [address] Aug, [facility] [address] [facility] [id number] [address] [place] [phone] Aug, [facility] [address] [address] Aug, Generalized anxiety disorder F41.1 [facility] [address] [facility] [id number] [address] [place] [id number] Aug, Influenza-like illness R69 a nd BMI 50.0-59.9, adult Z68.43 [facility] [address] [address] Jul, Fatty liver K76.0 ; Restrict jean-paul lung disease J98.4 ; Diastolic dysfunction I51.9 ; Body mass index (bmi) 50-59.9 , adult Z68.43 and Chronic prescription opiate use Z79.899 [facility] [address] [address] Jul, Generalized anxiety disorder F41.1 [facility] [address] [place] [id number] [address] [place] [phone] Jul, Generalized anxiety disorder F41.1 [facility] [address] [address] Jul, Primary osteoarthritis invol ving multiple joints M15.0 [facility] [address] [place] [id number] [address] [place] [phone] Jun, Generalized anxiety disorder F41.1 [facility] [address] [place] [id number] [address] [place] [id number] Jun, [facility] [address] [place] [id number] [address] [place] [phone] Jun, Mixed hyperlipidemia E78.2 [place] [address] [facility] [id number] [address] [place] [phone] Jun, Generalized anxiety disorder F41.1 [place] [address] [facility] [id number] [address] [place] [phone] Jun, Generalized anxiety disorder F41.1 ; Major depressive disorder, recurrent episode, mild degree F33.0 and Habitual self-excoriation F42.4 [place] [address] [id number] [address] [place] [phone] May, [place] [address] [facility] [id number] [address] [place] [phone] May, Generalized anxiety disorder F41.1 [place] [address] [facility] [id number] [address] [place] [phone] May, Generalized anxiety disorder F41.1 [place] [address] [place] [id number] [address] [place] [phone] May, Primary osteoarthritis invol ving multiple joints M15.0 [place] [address] [facility] [id number] [address] [place] [id number] Apr, Major depressive disorder, r ecurrent episode, mild degree F33.0 ; Generalized anxiety disorder F41.1 and Excoriation, neurotic L98.1 [place] [address] [facility] [id number] [address] [place] [phone] Apr, Primary osteoarthritis invol ving multiple joints M15.0 [place] [address] [facility] [id number] [address] [place] [phone] Apr, Essential hypertension I10 a nd Mixed hyperlipidemia E78.2 [place] [address] [facility] [id number] [address] [place] [phone] Apr, Generalized anxiety disorder F41.1 ; Major depressive disorder, recurrent episode, mild degree F33.0 and Habitual self-excoriation F42.4 [place] [address] [facility] [id number] [address] [place] [id number] Mar, Generalized anxiety disorder F41.1 ; Major depressive disorder, recurrent episode, mild degree F33.0 and Habitual self-excoriation F42.4 [facility] [address] [id number] [address] [place] [phone] Mar, Skin lesion L98.9 [facility] [address] [id number] [address] [place] [phone] Mar, Primary osteoarthritis invol ving multiple joints M15.0 [facility] [address] [id number] [address] [place] [id number] Mar, [facility] [address] [id number] [address] [place] [phone] Mar, [place] [address] [facility] [id number] [address] [place] [phone] Feb, Major depressive disorder, r ecurrent episode, mild degree F33.0 ; Generalized anxiety disorder F41.1 and Excoriation, neurotic L98.1 [place] [address] [id number] [address] [place] [phone] Feb, Generalized anxiety disorder F41.1 [place] [address] [facility] [id number] [address] [place] [phone] Feb, Primary osteoarthritis invol ving multiple joints M15.0 [facility] [address] [id number] [address] [place] [phone] Jan, [facility] [address] [facility] [id number] [address] [place] [id number] Jan, Essential hypertension I10 ; Splenic artery aneurysm I72.8 ; Liver mass R16.0 ; Restrictive lung disease J98.4 ; Primary osteoarthritis involving multiple joints M15.0 ; Mixed hyperlipidemia E78.2 ; Bilateral carpal tunnel syndrome G56.03 ; Body mass index (bmi) 50-59.9 , adult Z68.43 and History of tobacco use Z87.891 [place] [address] [facility] [id number] [address] [place] [phone] Jan, Major depressive disorder, r ecurrent episode, mild degree F33.0 and Generalized anxiety disorder F41.1 [facility] [address] [id number] [address] [place] [id number] Jan, [facility] [address] [id number] [address] [place] [id number] Jan, Generalized anxiety disorder F41.1 and Major depressive disorder, recurrent episode, mild degree F33.0 [facility] [address] [id number] [address] [place] [phone] Dec, Primary osteoarthritis invol ving multiple joints M15.0 [facility] [address] [id number] [address] [place] [phone] Dec, Generalized anxiety disorder F41.1 [facility] [address] [id number] [address] [place] [phone] Dec, [facility] [address] [id number] [address] [place] [id number] Dec, Major depressive disorder, r ecurrent episode, mild degree F33.0 and Generalized anxiety disorder F41.1 [facility] [address] [id number] [address] [place] [phone] Dec, Generalized anxiety disorder F41.1 and Major depressive disorder, recurrent episode, mild degree F33.0 [facility] [address] [id number] [address] [place] [phone] November, Mild major depression F32.0 and Primary osteoarthritis involving multiple joints M15.0 [facility] [address] [id number] [address] [place] [id number] November, Major depressive disorder, r ecurrent episode, mild degree F33.0 and Generalized anxiety disorder F41.1 [facility] [address] [id number] [address] [place] [id number] November, Primary osteoarthritis invol ving multiple joints M15.0 ; Essential hypertension I10 ; Prediabetes R73.09 ; Mixed hyperlipidemia E78.2 ; Chronic prescription benzodiazepine use Z79.899 ; Chronic prescription opiate use Z79.899 ; Tobacco use Z72.0 ; Bilateral carpal tunnel syndrome G56.03 and Body mass index (bmi) 50-59.9 , adult Z68.43 [facility] [address] [facility] [id number] [address] [place] [id number] November, Primary osteoarthritis invol ving multiple joints M15.0 and Mild major depression F32.0 [place] [id number] [place] [address] Oct, [place] [address] [address] Oct, Primary osteoarthritis invol ving multiple joints M15.0 ; Essential hypertension I10 ; Prediabetes R73.09 ; Chronic prescription benzodiazepine use Z79.899 ; Chronic prescription opiate use Z79.899 ; Tobacco use Z72.0 ; Mixed hyperlipidemia E78.2 ; Bilateral carpal tunnel syndrome G56.03 ; Body mass index (bmi) 50-59.9 , adult Z68.43 and Encounter for immunization Z23 [place] [address] [address] Oct, Major depressive disorder, r ecurrent episode, mild degree F33.0 and Generalized anxiety disorder F41.1 [place] [address] [place] [id number] [address] [place] [phone] Oct, [place] [address] [facility] [id number] [address] [place] [id number] Oct, [place] [address] [facility] [id number] [address] [place] [id number] Sep, Mild major depression F32.0 [place] [address] [facility] [id number] [address] [place] [address] Sep, [place] [address] [facility] [id number] [address] [place] [phone] Sep, Mild major depression F32.0 and Generalized anxiety disorder F41.1 [facility] [address] [facility] [id number] [address] [place] [phone] Sep, Paresthesia of both hands R2 0.2 and Cervical radiculopathy M54.12 [facility] [address] [facility] [id number] [address] [place] [phone] Sep, [facility] [address] [place] [id number] [place] [address] Sep, [facility] [address] [facility] [id number] [place] [phone] Aug, Paresthesia of both hands R2 0.2 and Neck pain M54.2 [facility] [address] [place] [id number] [place] [address] Aug, [facility] [address] [place] [id number] [place] [address] Jul, Neck pain M54.2 and Paresthe eddie of both hands R20.2 [facility] [address] [address] Jul, Proteinuria, unspecified typ e R80.9 [place] [address] [address] Jul, Proteinuria, unspecified typ e R80.9 [place] [address] [address] Jul, [facility] [address] [address] Jul, Other specified transient ce rebral ischemias G45.8 [place] [address] [place] [id number] [place] [address] Jun, Diastolic dysfunction I51.9 [place] [address] [address] Jun, Diastolic dysfunction I51.9 [place] [address] [place] [id number] [place] [address] Jun, Major depressive disorder, s david episode, unspecified F32.9 and Anxiety disorder, unspecified F41.9 [facility] [address] [place] [id number] [address] [place] [phone] Jun, [facility] [address] [address] Jun, [facility] [address] [address] May, Moderate major depression F3 2.1 and Generalized anxiety disorder F41.1 [place] [address] [address] 16 May, 2016 Major depressive disorder, s david episode, unspecified F32.9 and Anxiety disorder, unspecified F41.9 [place] [address] [address] May, [place] [address] [address] 14 May, 2016 Liver enzyme elevation R74.8 [place] [address] [address] 14 May, 2016 Liver enzyme elevation R74.8 [place] [address] [address] 10 May, 2016 Shortness of breath on exert ion R06.02 ; Essential hypertension I10 ; Mixed hyperlipidemia E78.2 and Tobacco use Z72.0 [place] [address] [place] [id number] [address] [place] [address] May, [place] [address] [address] May, [facility] [address] [place] [id number] [address] [place] [phone] 06 Apr, 2016 Anxiety F41.9 and Depression F32.9 [facility] [address] [id number] [address] [place] [phone] Apr, [facility] [address] [id number] [address] [place] [phone] Apr, [facility] [address] [id number] [address] [place] [id number] Mar, Depression F32.9 and Anxiety F41.9 [facility] [address] [id number] [address] [place] [address] Mar, Anxiety F41.9 and Depression F32.9 [facility] [address] [id number] [address] [place] [id number] Mar, Well woman exam (no gynecolo gical exam) Z00.00 [facility] [address] [id number] [address] [place] [phone] Mar, [facility] [address] [id number] [address] [place] [phone] Mar, [facility] [address] [id number] [address] [place] [id number] Feb, Dental caries K02.9 [facility] [address] [id number] [address] [place] [id number] Feb, [facility] [address] [id number] [address] [place] [phone] Feb, Anxiety F41.9 and Depression F32.9 [facility] [address] [id number] [address] [place] [id number] Feb, Dental examination Z01.20 [facility] [address] [id number] [address] [place] [phone] Feb, [facility] [address] [id number] [address] [place] [phone] Feb, [facility] [address] [id number] [address] [place] [phone] Feb, Anxiety F41.9 and Depression F32.9 [facility] [address] [id number] [address] [place] [phone] Jan, Severe episode of recurrent major depressive disorder, without psychotic features F33.2 and Anxiety disorder, unspecified F41.9 [facility] [address] [id number] [address] [place] [address] Jan, [facility] [address] [id number] [address] [place] [phone] Dec, [facility] [address] [id number] [address] [place] [phone] Dec, Anxiety F41.9 and Depression F32.9 [place] [address] [id number] [address] [place] [id number] 24 Dec, 2015 Other specified transient ce rebral ischemias G45.8 and Nocturnal hypoxia G47.34 [place] [address] [id number] [address] [place] [id number] 18 Dec, 2015 [facility] [address] [id number] [address] [place] [id number] 17 Dec, 2015 Other specified transient ce rebral ischemias G45.8 [facility] [address] [id number] [address] [place] [id number] 16 Dec, 2015 Severe episode of recurrent major depressive disorder, without psychotic features F33.2 and Anxiety disorder, unspecified F41.9 [facility] [address] [id number] [address] [place] [phone] Dec, [facility] [address] [id number] [address] [place] [id number] 13 Dec, 2015 Anxiety F41.9 and Depression F32.9 [facility] [address] [id number] [address] [place] [phone] 07 Dec, 2015 Anxiety F41.9 and Depression F32.9 [facility] [address] [id number] [address] [place] [phone] Dec, [facility] [id number] [place] [address] November, Anxiety F41.9 and Depression F32.9 [facility] [address] [place] [id number] [address] [place] [phone] November, Severe episode of recurrent major depressive disorder, without psychotic features F33.2 [facility] [address] [id number] November, Mixed hyperlipidemia E78.2 [facility] [address] [place] [id number] [address] [place] [phone] November, Anxiety F41.9 and Depression F32.9 [facility] [address] [place] [id number] [place] [phone] November, Prediabetes R73.09 ; Essenti al hypertension I10 ; Anxiety F41.9 ; Depression F32.9 ; Gastroesophageal reflux disease, esophagitis presence not specified K21.9 ; Primary osteoarthritis involving multiple joints M15.0 ; History of renal cell cancer Z85.528 ; Postnasal drip R09.82 ; Allergic rhinitis, unspecified J30.9 and Tobacco use Z72.0 [facility] [address] [place] [id number] [address] [place] [phone] Oct, Anxiety F41.9 and Depression F32.9 [facility] [id number] [place] [id number] Oct, [facility] [address] [place] [id number] [address] [place] [phone] Oct, [facility] [address] [place] [id number] [address] [place] [phone] 14 Sep, 2015 Splenic artery aneurysm I72. 8 [place] [address] [place] [id number] [address] [place] [id number] 10 Sep, 2015 Depression F32.9 ; Anxiety F 41.9 ; Chronic prescription benzodiazepine use Z79.899 and Splenic artery aneurysm I72.8 [facility] [address] [facility] [id number] [address] [place] [phone] 10 Sep, 2015 Depression F32.9 and Anxiety F41.9 [facility] [address] [place] [id number] [address] [place] [phone] Sep, [facility] [address] [id number] [address] [place] [id number] Aug, Dehydration E86.0 ; Diarrhea R19.7 ; Nausea R11.0 and Generalized abdominal pain R10.84 [facility] [address] [id number] [address] [place] [id number] Aug, [facility] [id number] [place] [phone] Jul, Depression F32.9 [facility] [address] [id number] [address] [place] [phone] Jul, [facility] [address] [id number] [address] [place] [phone] Jul, Anxiety F41.9 and Depression F32.9 [facility] [address] [id number] [address] [place] [phone] Jul, [facility] [address] [id number] [address] [place] [id number] Jun, Epigastric pain R10.13 [facility] [address] [id number] [address] [place] [phone] Jun, [facility] [address] [id number] [address] [place] [phone] Jun, [facility] [address] [id number] [address] [place] [phone] May, [facility] [address] [id number] [address] [place] [phone] May, [facility] [address] [id number] [address] [place] [id number] Apr, [facility] [address] [id number] [address] [place] [phone] Mar, Anxiety state, unspecified 3 00.00 ; Depression 311 ; Prediabetes 790.29 ; Generalized osteoarthrosis, involving multiple sites 715.09 and Hypertension 401.9 [facility] [address] [id number] [address] [place] [phone] Mar, [facility] [address] [id number] [address] [place] [phone] Feb, [facility] [address] [id number] [address] [place] [phone] Jan, [facility] [address] [id number] [address] [place] [phone] Jan, [facility] [address] [id number] [address] [place] [id number] Jan, Generalized osteoarthrosis, involving multiple sites 715.09 [facility] [address] [id number] [address] [place] [phone] Jan, Hx of renal cell cancer V10. 52 [facility] [address] [id number] [address] [place] [id number] Dec, Generalized osteoarthrosis, involving multiple sites 715.09 and Hx of renal cell cancer V10.52 [facility] [address] [id number] [address] [place] [phone] Dec, [facility] [address] [id number] [address] [place] [phone] Dec, [facility] [address] [id number] [address] [place] [phone] November, [facility] [address] [id number] [address] [place] [phone] Oct, [facility] [address] [id number] [address] [place] [phone] Oct, [facility] [address] [facility] [id number] [address] [place] [phone] Sep, [facility] [address] [facility] [id number] [address] [place] [phone] Sep, [facility] [address] [facility] [id number] [address] [place] [phone] Sep, [facility] [address] [facility] [id number] [address] [place] [phone] Sep, [facility] [address] [facility] [id number] [address] [place] [phone] Aug, [facility] [address] [facility] [id number] [address] [place] [phone] Aug, IMMUNIZATIONS No Known Immunizations SOCIAL HISTORY Never Assessed REASON FOR VISIT Refill Request PLAN OF CARE VITAL SIGNS MEDICATIONS Medication Instructions Dosage Frequency Start Date End Date Duration S tatus Tizanidine HCl 2 MG Orally every 8 hours 1 tablet as needed 8h 30 Active RESULTS No Results PROCEDURES No [...]
--- OUTSIDE RECORDS SUMMARY | 2020-02-08 07:14 | XMS REPORT ---
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 Name Role Phone LALOJEZALBANIA Unavailable PROBLEMS Type Condition ICD9-CM Code OSH13-JY Code Onset Dates Condition S tatus SNOMED Code Problem Mixed hyperlipidemia E78.2 Active 859622050 Problem Fatty liver K76.0 Active 61598476 7 Problem Obstructive sleep apnea G47.33 Active 54796248 Problem Allergic rhinitis, unspecified J30.9 Active 94106111 Problem Essential hypertension I10 Active 66360077 Problem History of renal cell cancer Z85.528 A ctive 054357684 Problem Prediabetes R73.09 Active 8463478 Problem Diastolic dysfunction I51.9 Active 8422882 Problem Body mass index (bmi) 50-59.9 , adult Z68.43 Active 320077323 Problem Paresthesia of both hands R20.2 Acti ve 339885302 Problem Habitual self-excoriation F42.4 Acti ve 600131828 Problem BMI 50.0-59.9, adult Z68.43 Active 279004139 Problem Restrictive lung disease J98.4 Activ e 51998515 Problem Splenic artery aneurysm I72.8 Active 07188992 Problem Liver mass R16.0 Active 009308521 Problem Generalized anxiety disorder F41.1 A ctive 65052750 Problem Major depressive disorder, recurrent episode, mild degree F33.0 Active 352763865 Problem Excoriation, neurotic L98.1 Active 83393345 Problem History of tobacco use Z87.891 Active 1915461576938 Problem Primary osteoarthritis involving multiple joints M 15.0 Active 522748047 Problem Isolated proteinuria without specific morphologic lesion R80.0 Active 81884481 Problem 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 Active 820643684 Problem Pulmonary emphysema, unspecified emphysema type J4 3.9 Active 56360109 Problem Chronic prescription opiate use Z79.899 Active 245170318 Problem Tobacco use Z72.0 Active 37776071 0 Problem Bilateral carpal tunnel syndrome G56.03 Active 44041802 Problem Chronic prescription benzodiazepine use Z79.899 Active 270417230 ALLERGIES No Information ENCOUNTERS Encounter Location Date Diagnosis [facility] [address] [facility] [id number] [address] [place] [id number] 07 May, 2018 [facility] [address] [facility] [id number] [address] [place] [phone] 15 Apr, 2018 [facility] [address] [facility] [id number] [address] [place] [id number] 20 Mar, 2018 [place] [address] [facility] [id number] [address] [place] [id number] 12 Mar, 2018 Generalized anxiety disorder F41.1 [facility] [address] [facility] [id number] [address] [place] [address] Mar, [facility] [address] [place] [id number] [address] [place] [phone] 14 Feb, 2018 Generalized anxiety disorder F41.1 ; Major depressive disorder, recurrent episode, mild degree F33.0 and Habitual self-excoriation F42.4 [place] [address] [place] [id number] [address] [place] [address] 13 Feb, 2018 Generalized anxiety disorder F41.1 and Major depressive disorder, recurrent episode, mild degree F33.0 [facility] [address] [place] [id number] [address] [place] [phone] Feb, [place] [address] [place] [id number] [address] [place] [address] 10 Feb, 2018 Restrictive lung disease J98 .4 ; Pulmonary emphysema, unspecified emphysema type J43.9 and Body mass index (bmi) 50-59.9 , adult Z68.43 [facility] [address] [facility] [id number] [address] [place] [phone] 08 Feb, 2018 Generalized anxiety disorder F41.1 ; Major depressive disorder, recurrent episode, mild degree F33.0 and Habitual self-excoriation F42.4 [facility] [address] [facility] [id number] [address] [place] [address] Feb, [facility] [address] [facility] [id number] [address] [place] [phone] Jan, [facility] [address] [facility] [id number] [address] [place] [address] Jan, Pulmonary emphysema, unspeci fied emphysema type J43.9 [facility] [address] [id number] [address] [place] [address] [id number] Jan, Dental examination Z01.20 an d Dental caries K02.9 [facility] [address] [facility] [id number] [address] [place] [address] Jan, Generalized anxiety disorder F41.1 and Major depressive disorder, recurrent episode, mild degree F33.0 [facility] [address] [place] [id number] [address] [place] [address] Jan, [facility] [address] [facility] [id number] [address] [place] [address] Jan, Generalized anxiety disorder F41.1 [facility] [address] [facility] [id number] [address] [place] [address] Jan, Oral abscess K12.2 and BMI 5 0.0-59.9, adult Z68.43 [facility] [address] [place] [id number] [address] [place] [address] Dec, BMI 50.0-59.9, adult Z68.43 and Weight loss counseling, encounter for Z71.3 [facility] [address] [facility] [id number] [address] [place] [address] Dec, [facility] [address] [facility] [id number] [address] [place] [phone] Dec, [facility] [address] [facility] [id number] [address] [place] [address] November, [facility] [address] [place] [id number] [address] [place] [address] November, [facility] [address] [address] November, Pulmonary emphysema, unspeci fied emphysema type J43.9 ; Restrictive lung disease J98.4 ; BMI 50.0-59.9, adult Z68.43 ; History of renal cell cancer Z85.528 ; Essential hypertension I10 ; Mixed hyperlipidemia E78.2 and Fatty liver K76.0 [facility] [address] [place] [id number] [address] [place] [address] November, Generalized anxiety disorder F41.1 [place] [address] [address] November, Generalized anxiety disorder F41.1 and Major depressive disorder, recurrent episode, mild degree F33.0 [place] [address] [address] November, Generalized anxiety disorder F41.1 ; Major depressive disorder, recurrent episode, mild degree F33.0 and Habitual self-excoriation F42.4 [place] [address] [address] November, [facility] [address] [place] [id number] [place] [address] Oct, Generalized anxiety disorder F41.1 [place] [address] [address] Oct, [place] [address] [place] [id number] [address] [place] [address] Oct, Influenza-like illness R69 [place] [address] [address] Sep, Influenza-like illness R69 [place] [address] [place] [id number] [address] [place] [address] Sep, Generalized anxiety disorder F41.1 [place] [address] [place] [id number] [address] [place] [address] Sep, [facility] [address] [address] Aug, [facility] [address] [facility] [id number] [address] [place] [address] Aug, [facility] [address] [address] Aug, Generalized anxiety disorder F41.1 [facility] [address] [facility] [id number] [address] [place] [address] Aug, Influenza-like illness R69 a nd BMI 50.0-59.9, adult Z68.43 [facility] [address] [address] Jul, Fatty liver K76.0 ; Restrict jean-paul lung disease J98.4 ; Diastolic dysfunction I51.9 ; Body mass index (bmi) 50-59.9 , adult Z68.43 and Chronic prescription opiate use Z79.899 [facility] [address] [address] Jul, Generalized anxiety disorder F41.1 [facility] [address] [place] [id number] [address] [place] [address] Jul, Generalized anxiety disorder F41.1 [facility] [address] [address] Jul, Primary osteoarthritis invol ving multiple joints M15.0 [facility] [address] [place] [id number] [address] [place] [address] Jun, Generalized anxiety disorder F41.1 [facility] [address] [place] [id number] [address] [place] [address] Jun, [facility] [address] [place] [id number] [address] [place] [address] Jun, Mixed hyperlipidemia E78.2 [place] [id number] [facility] [id number] [address] [place] [address] Jun, Generalized anxiety disorder F41.1 [place] [address] [facility] [id number] [address] [place] [address] Jun, Generalized anxiety disorder F41.1 ; Major depressive disorder, recurrent episode, mild degree F33.0 and Habitual self-excoriation F42.4 [place] [address] [id number] [address] [place] [address] May, [place] [address] [facility] [id number] [address] [place] [address] May, Generalized anxiety disorder F41.1 [place] [address] [facility] [id number] [address] [place] [phone] May, Generalized anxiety disorder F41.1 [place] [address] [place] [id number] [address] [place] [address] May, Primary osteoarthritis invol ving multiple joints M15.0 [place] [address] [facility] [id number] [address] [place] [address] Apr, Major depressive disorder, r ecurrent episode, mild degree F33.0 ; Generalized anxiety disorder F41.1 and Excoriation, neurotic L98.1 [place] [address] [facility] [id number] [address] [place] [address] Apr, Primary osteoarthritis invol ving multiple joints M15.0 [place] [address] [facility] [id number] [address] [place] [address] Apr, Essential hypertension I10 a nd Mixed hyperlipidemia E78.2 [place] [address] [facility] [id number] [address] [place] [address] Apr, Generalized anxiety disorder F41.1 ; Major depressive disorder, recurrent episode, mild degree F33.0 and Habitual self-excoriation F42.4 [place] [address] [facility] [id number] [address] [place] [address] Mar, Generalized anxiety disorder F41.1 ; Major depressive disorder, recurrent episode, mild degree F33.0 and Habitual self-excoriation F42.4 [facility] [address] [id number] [address] [place] [address] Mar, Skin lesion L98.9 [facility] [address] [id number] [address] [place] [address] Mar, Primary osteoarthritis invol ving multiple joints M15.0 [facility] [address] [id number] [address] [place] [address] Mar, [facility] [address] [id number] [address] [place] [address] Mar, [place] [address] [facility] [id number] [address] [place] [address] Feb, Major depressive disorder, r ecurrent episode, mild degree F33.0 ; Generalized anxiety disorder F41.1 and Excoriation, neurotic L98.1 [place] [address] [id number] [address] [place] [address] Feb, Generalized anxiety disorder F41.1 [place] [address] [facility] [id number] [address] [place] [address] Feb, Primary osteoarthritis invol ving multiple joints M15.0 [facility] [address] [id number] [address] [place] [address] Jan, [facility] [address] [facility] [id number] [address] [place] [address] Jan, Essential hypertension I10 ; Splenic artery aneurysm I72.8 ; Liver mass R16.0 ; Restrictive lung disease J98.4 ; Primary osteoarthritis involving multiple joints M15.0 ; Mixed hyperlipidemia E78.2 ; Bilateral carpal tunnel syndrome G56.03 ; Body mass index (bmi) 50-59.9 , adult Z68.43 and History of tobacco use Z87.891 [place] [address] [facility] [id number] [address] [place] [address] Jan, Major depressive disorder, r ecurrent episode, mild degree F33.0 and Generalized anxiety disorder F41.1 [facility] [address] [id number] [address] [place] [address] Jan, [facility] [address] [id number] [address] [place] [address] Jan, Generalized anxiety disorder F41.1 and Major depressive disorder, recurrent episode, mild degree F33.0 [facility] [address] [id number] [address] [place] [address] Dec, Primary osteoarthritis invol ving multiple joints M15.0 [facility] [address] [id number] [address] [place] [address] Dec, Generalized anxiety disorder F41.1 [facility] [address] [id number] [address] [place] [address] Dec, [facility] [address] [id number] [address] [place] [address] Dec, Major depressive disorder, r ecurrent episode, mild degree F33.0 and Generalized anxiety disorder F41.1 [facility] [address] [id number] [address] [place] [address] Dec, Generalized anxiety disorder F41.1 and Major depressive disorder, recurrent episode, mild degree F33.0 [facility] [address] [id number] [address] [place] [address] November, Mild major depression F32.0 and Primary osteoarthritis involving multiple joints M15.0 [facility] [address] [id number] [address] [place] [address] November, Major depressive disorder, r ecurrent episode, mild degree F33.0 and Generalized anxiety disorder F41.1 [facility] [address] [id number] [address] [place] [address] November, Primary osteoarthritis invol ving multiple joints M15.0 ; Essential hypertension I10 ; Prediabetes R73.09 ; Mixed hyperlipidemia E78.2 ; Chronic prescription benzodiazepine use Z79.899 ; Chronic prescription opiate use Z79.899 ; Tobacco use Z72.0 ; Bilateral carpal tunnel syndrome G56.03 and Body mass index (bmi) 50-59.9 , adult Z68.43 [facility] [address] [facility] [id number] [address] [place] [address] November, Primary osteoarthritis invol ving multiple joints M15.0 and Mild major depression F32.0 [place] [id number] [place] [address] Oct, [place] [address] [address] Oct, Primary osteoarthritis invol ving multiple joints M15.0 ; Essential hypertension I10 ; Prediabetes R73.09 ; Chronic prescription benzodiazepine use Z79.899 ; Chronic prescription opiate use Z79.899 ; Tobacco use Z72.0 ; Mixed hyperlipidemia E78.2 ; Bilateral carpal tunnel syndrome G56.03 ; Body mass index (bmi) 50-59.9 , adult Z68.43 and Encounter for immunization Z23 [place] [address] [address] Oct, Major depressive disorder, r ecurrent episode, mild degree F33.0 and Generalized anxiety disorder F41.1 [place] [address] [place] [id number] [address] [place] [address] Oct, [place] [address] [facility] [id number] [address] [place] [address] Oct, [place] [address] [facility] [id number] [address] [place] [address] Sep, Mild major depression F32.0 [place] [address] [facility] [id number] [address] [place] [address] Sep, [place] [address] [facility] [id number] [address] [place] [address] Sep, Mild major depression F32.0 and Generalized anxiety disorder F41.1 [facility] [address] [facility] [id number] [address] [place] [address] Sep, Paresthesia of both hands R2 0.2 and Cervical radiculopathy M54.12 [facility] [address] [facility] [id number] [address] [place] [address] Sep, [facility] [address] [place] [id number] [place] [address] Sep, [facility] [address] [facility] [id number] [place] [address] Aug, Paresthesia of both hands R2 0.2 and Neck pain M54.2 [facility] [address] [place] [id number] [place] [address] Aug, [facility] [address] [place] [id number] [place] [address] Jul, Neck pain M54.2 and Paresthe eddie of both hands R20.2 [facility] [address] [address] Jul, Proteinuria, unspecified typ e R80.9 [place] [address] [address] Jul, Proteinuria, unspecified typ e R80.9 [place] [address] [address] Jul, [facility] [address] [address] Jul, Other specified transient ce rebral ischemias G45.8 [place] [address] [place] [id number] [place] [address] Jun, Diastolic dysfunction I51.9 [place] [address] [address] Jun, Diastolic dysfunction I51.9 [place] [address] [place] [address] [place] [address] Jun, Major depressive disorder, s david episode, unspecified F32.9 and Anxiety disorder, unspecified F41.9 [facility] [address] [place] [id number] [address] [place] [address] Jun, [facility] [address] [address] Jun, [facility] [address] [address] May, Moderate major depression F3 2.1 and Generalized anxiety disorder F41.1 [place] [address] [address] 16 May, 2016 Major depressive disorder, s david episode, unspecified F32.9 and Anxiety disorder, unspecified F41.9 [place] [address] [address] May, [place] [address] [address] 14 May, 2016 Liver enzyme elevation R74.8 [place] [address] [address] 14 May, 2016 Liver enzyme elevation R74.8 [place] [address] [address] 10 May, 2016 Shortness of breath on exert ion R06.02 ; Essential hypertension I10 ; Mixed hyperlipidemia E78.2 and Tobacco use Z72.0 [place] [address] [place] [id number] [address] [place] [address] May, [place] [address] [address] May, [facility] [address] [place] [id number] [address] [place] [address] 06 Apr, 2016 Anxiety F41.9 and Depression F32.9 [facility] [address] [id number] [address] [place] [address] Apr, [facility] [address] [id number] [address] [place] [address] Apr, [facility] [address] [id number] [address] [place] [address] Mar, Depression F32.9 and Anxiety F41.9 [facility] [address] [id number] [address] [place] [address] Mar, Anxiety F41.9 and Depression F32.9 [facility] [address] [id number] [address] [place] [address] Mar, Well woman exam (no gynecolo gical exam) Z00.00 [facility] [address] [id number] [address] [place] [address] Mar, [facility] [address] [id number] [address] [place] [address] Mar, [facility] [address] [id number] [address] [place] [id number] Feb, Dental caries K02.9 [facility] [address] [id number] [address] [place] [address] Feb, [facility] [address] [id number] [address] [place] [address] Feb, Anxiety F41.9 and Depression F32.9 [facility] [address] [id number] [address] [place] [id number] Feb, Dental examination Z01.20 [facility] [address] [id number] [address] [place] [address] Feb, [facility] [address] [id number] [address] [place] [address] Feb, [facility] [address] [id number] [address] [place] [address] Feb, Anxiety F41.9 and Depression F32.9 [facility] [address] [id number] [address] [place] [address] Jan, Severe episode of recurrent major depressive disorder, without psychotic features F33.2 and Anxiety disorder, unspecified F41.9 [facility] [address] [id number] [address] [place] [address] Jan, [facility] [address] [id number] [address] [place] [address] Dec, [facility] [address] [id number] [address] [place] [address] Dec, Anxiety F41.9 and Depression F32.9 [place] [address] [id number] [address] [place] [address] 24 Dec, 2015 Other specified transient ce rebral ischemias G45.8 and Nocturnal hypoxia G47.34 [place] [address] [id number] [address] [place] [address] 18 Dec, 2015 [facility] [address] [id number] [address] [place] [address] 17 Dec, 2015 Other specified transient ce rebral ischemias G45.8 [facility] [address] [id number] [address] [place] [address] 16 Dec, 2015 Severe episode of recurrent major depressive disorder, without psychotic features F33.2 and Anxiety disorder, unspecified F41.9 [facility] [address] [id number] [address] [place] [address] Dec, [facility] [address] [id number] [address] [place] [address] 13 Dec, 2015 Anxiety F41.9 and Depression F32.9 [facility] [address] [id number] [address] [place] [address] 07 Dec, 2015 Anxiety F41.9 and Depression F32.9 [facility] [address] [id number] [address] [place] [address] Dec, [facility] [id number] [place] [address] November, Anxiety F41.9 and Depression F32.9 [place] [address] [place] [id number] [address] [place] [address] November, Severe episode of recurrent major depressive disorder, without psychotic features F33.2 [place] [address] [address] November, Mixed hyperlipidemia E78.2 [place] [address] [place] [id number] [address] [place] [address] November, Anxiety F41.9 and Depression F32.9 [place] [address] [place] [id number] [place] [address] November, Prediabetes R73.09 ; Essenti al hypertension I10 ; Anxiety F41.9 ; Depression F32.9 ; Gastroesophageal reflux disease, esophagitis presence not specified K21.9 ; Primary osteoarthritis involving multiple joints M15.0 ; History of renal cell cancer Z85.528 ; Postnasal drip R09.82 ; Allergic rhinitis, unspecified J30.9 and Tobacco use Z72.0 [place] [address] [place] [id number] [place] [address] Oct, Anxiety F41.9 and Depression F32.9 [place] [address] [place] [id number] Oct, [place] [address] [place] [id number] [place] [phone] Oct, [place] [address] [place] [id number] [place] [id number] 14 Sep, 2015 Splenic artery aneurysm I72. 8 [place] [address] [place] [id number] [place] [id number] 10 Sep, 2015 Depression F32.9 ; Anxiety F 41.9 ; Chronic prescription benzodiazepine use Z79.899 and Splenic artery aneurysm I72.8 [facility] [address] [facility] [id number] [address] [place] [phone] 10 Sep, 2015 Depression F32.9 and Anxiety F41.9 [facility] [address] [place] [id number] [place] [id number] Sep, [facility] [address] [place] [id number] [place] [phone] Aug, Dehydration E86.0 ; Diarrhea R19.7 ; Nausea R11.0 and Generalized abdominal pain R10.84 [facility] [address] [place] [id number] [address] [place] [id number] Aug, [facility] [id number] [place] [id number] Jul, Depression F32.9 [facility] [address] [id number] [place] [phone] Jul, [facility] [address] [id number] [place] [phone] Jul, Anxiety F41.9 and Depression F32.9 [facility] [address] [id number] [address] [place] [phone] Jul, [facility] [address] [id number] [address] [place] [id number] Jun, Epigastric pain R10.13 [facility] [address] [id number] [address] [place] [phone] Jun, [facility] [address] [id number] [address] [place] [id number] Jun, [facility] [address] [id number] [place] [phone] May, [facility] [address] [id number] [place] [phone] May, [facility] [address] [id number] [address] [place] [id number] Apr, [facility] [address] [id number] [address] [place] [id number] Mar, Anxiety state, unspecified 3 00.00 ; Depression 311 ; Prediabetes 790.29 ; Generalized osteoarthrosis, involving multiple sites 715.09 and Hypertension 401.9 [facility] [address] [id number] [address] [place] [id number] Mar, [facility] [address] [id number] [address] [place] [id number] Feb, [facility] [address] [id number] [address] [place] [phone] Jan, [facility] [address] [id number] [address] [place] [id number] Jan, [facility] [address] [id number] [address] [place] [phone] Jan, Generalized osteoarthrosis, involving multiple sites 715.09 [facility] [address] [id number] [address] [place] [phone] Jan, Hx of renal cell cancer V10. 52 [facility] [address] [id number] [address] [place] [phone] Dec, Generalized osteoarthrosis, involving multiple sites 715.09 and Hx of renal cell cancer V10.52 [facility] [address] [id number] [address] [place] [phone] Dec, [facility] [address] [id number] [address] [place] [phone] Dec, [facility] [address] [id number] [address] [place] [phone] November, [facility] [address] [id number] [address] [place] [id number] Oct, [facility] [address] [id number] [address] [place] [phone] Oct, [facility] [address] [facility] [id number] [address] [place] [phone] Sep, [facility] [address] [facility] [id number] [address] [place] [phone] Sep, [facility] [address] [facility] [id number] [address] [place] [phone] Sep, [facility] [address] [facility] [id number] [address] [place] [phone] Sep, [facility] [address] [facility] [id number] [address] [place] [phone] Aug, [facility] [address] [facility] [id number] [address] [place] [phone] Aug, IMMUNIZATIONS No Known Immunizations SOCIAL HISTORY Never Assessed REASON FOR VISIT Controlled Medication Refill PLAN OF CARE VITAL SIGNS MEDICATIONS Medication Instructions Dosage Frequency Start Date End Date Duration S tatus Hydrocodone-Acetaminophen 5-325 MG Orally 2 times a day as n eeded for pain take 1 tablet Feb, 28 Active RESULTS No Results PROCEDURES No [...]
[2020-02-08] MEDS ORDERED: NS IV 1000 ML 1,000 ML IV SCH ×2 (07:15→09:13)
--- OUTSIDE RECORDS SUMMARY | 2020-02-08 07:15 | XMS REPORT ---
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 Name Role Phone LALOJEZALBANIA Unavailable PROBLEMS Type Condition ICD9-CM Code DLU80-ZL Code Onset Dates Condition S tatus SNOMED Code Problem Mixed hyperlipidemia E78.2 Active 793049464 Problem Fatty liver K76.0 Active 56498433 7 Problem Obstructive sleep apnea G47.33 Active 62420101 Problem Allergic rhinitis, unspecified J30.9 Active 99459608 Problem Essential hypertension I10 Active 30767365 Problem History of renal cell cancer Z85.528 A ctive 201662724 Problem Prediabetes R73.09 Active 6446650 Problem Diastolic dysfunction I51.9 Active 3143416 Problem Body mass index (bmi) 50-59.9 , adult Z68.43 Active 509462619 Problem Paresthesia of both hands R20.2 Acti ve 757714013 Problem Habitual self-excoriation F42.4 Acti ve 755928959 Problem BMI 50.0-59.9, adult Z68.43 Active 699265723 Problem Restrictive lung disease J98.4 Activ e 33429617 Problem Splenic artery aneurysm I72.8 Active 68658425 Problem Liver mass R16.0 Active 106614849 Problem Generalized anxiety disorder F41.1 A ctive 85342836 Problem Major depressive disorder, recurrent episode, mild degree F33.0 Active 684800500 Problem Excoriation, neurotic L98.1 Active 73209974 Problem History of tobacco use Z87.891 Active 0130724850238 Problem Primary osteoarthritis involving multiple joints M 15.0 Active 426047492 Problem Isolated proteinuria without specific morphologic lesion R80.0 Active 26385360 Problem 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 Active 380189465 Problem Pulmonary emphysema, unspecified emphysema type J4 3.9 Active 25079405 Problem Chronic prescription opiate use Z79.899 Active 079629764 Problem Tobacco use Z72.0 Active 69299877 0 Problem Bilateral carpal tunnel syndrome G56.03 Active 57325727 Problem Chronic prescription benzodiazepine use Z79.899 Active 915596292 ALLERGIES No Information ENCOUNTERS Encounter Location Date Diagnosis [facility] [address] [facility] [id number] [address] [place] [phone] 07 May, 2018 [facility] [address] [facility] [id number] [address] [place] [phone] 15 Apr, 2018 [facility] [address] [facility] [id number] [address] [place] [phone] Mar, [place] [address] [facility] [id number] [place] [phone] 14 Feb, 2018 Generalized anxiety disorder F41.1 ; Major depressive disorder, recurrent episode, mild degree F33.0 and Habitual self-excoriation F42.4 [place] [address] [facility] [id number] [address] [place] [phone] Feb, Generalized anxiety disorder F41.1 and Major depressive disorder, recurrent episode, mild degree F33.0 [facility] [address] [facility] [id number] [address] [place] [phone] Feb, [facility] [address] [place] [id number] [address] [place] [phone] Feb, Restrictive lung disease J98 .4 ; Pulmonary emphysema, unspecified emphysema type J43.9 and Body mass index (bmi) 50-59.9 , adult Z68.43 [facility] [address] [place] [id number] [address] [place] [phone] 08 Feb, 2018 Generalized anxiety disorder F41.1 ; Major depressive disorder, recurrent episode, mild degree F33.0 and Habitual self-excoriation F42.4 [facility] [address] [facility] [id number] [address] [place] [phone] Feb, [facility] [address] [facility] [id number] [address] [place] [phone] Jan, [facility] [address] [facility] [id number] [address] [place] [phone] Jan, Pulmonary emphysema, unspeci fied emphysema type J43.9 [facility] [address] [id number] [address] [place] [id number] Jan, Dental examination Z01.20 an d Dental caries K02.9 [facility] [address] [facility] [id number] [address] [place] [phone] Jan, Generalized anxiety disorder F41.1 and Major depressive disorder, recurrent episode, mild degree F33.0 [facility] [address] [facility] [id number] [address] [place] [phone] Jan, [facility] [address] [facility] [id number] [address] [place] [phone] Jan, Generalized anxiety disorder F41.1 [facility] [address] [facility] [id number] [address] [place] [phone] Jan, Oral abscess K12.2 and BMI 5 0.0-59.9, adult Z68.43 [facility] [address] [facility] [id number] [address] [place] [phone] Dec, BMI 50.0-59.9, adult Z68.43 and Weight loss counseling, encounter for Z71.3 [facility] [address] [facility] [id number] [address] [place] [phone] Dec, [facility] [address] [facility] [id number] [address] [place] [phone] Dec, [facility] [address] [facility] [id number] [address] [place] [phone] November, [facility] [address] [facility] [id number] [address] [place] [phone] November, [facility] [address] [facility] [id number] [address] [place] [phone] November, Pulmonary emphysema, unspeci fied emphysema type J43.9 ; Restrictive lung disease J98.4 ; BMI 50.0-59.9, adult Z68.43 ; History of renal cell cancer Z85.528 ; Essential hypertension I10 ; Mixed hyperlipidemia E78.2 and Fatty liver K76.0 [facility] [address] [facility] [id number] [address] [place] [phone] November, Generalized anxiety disorder F41.1 [facility] [address] [facility] [id number] [address] [place] [phone] November, Generalized anxiety disorder F41.1 and Major depressive disorder, recurrent episode, mild degree F33.0 [facility] [address] [facility] [id number] [address] [place] [phone] November, Generalized anxiety disorder F41.1 ; Major depressive disorder, recurrent episode, mild degree F33.0 and Habitual self-excoriation F42.4 [facility] [address] [facility] [id number] [address] [place] [phone] November, [facility] [address] [facility] [id number] [address] [place] [phone] Oct, Generalized anxiety disorder F41.1 [facility] [address] [facility] [id number] [address] [place] [phone] Oct, [facility] [address] [facility] [id number] [address] [place] [phone] Oct, Influenza-like illness R69 [facility] [address] [facility] [id number] [address] [place] [phone] Sep, Influenza-like illness R69 [facility] [address] [facility] [id number] [address] [place] [phone] Sep, Generalized anxiety disorder F41.1 [facility] [address] [facility] [id number] [address] [place] [phone] Sep, [facility] [address] [place] [id number] [address] [place] [phone] Aug, [facility] [id number] [place] [phone] 07 Aug, 2017 [facility] [address] [address] Aug, Generalized anxiety disorder F41.1 [facility] [address] [facility] [id number] [address] [place] [phone] Aug, Influenza-like illness R69 a nd BMI 50.0-59.9, adult Z68.43 [facility] [address] [place] [id number] [address] [place] [phone] Jul, 2018 Fatty liver K76.0 ; Restrict jean-paul lung disease J98.4 ; Diastolic dysfunction I51.9 ; Body mass index (bmi) 50-59.9 , adult Z68.43 and Chronic prescription opiate use Z79.899 [facility] [address] [place] [id number] [address] [place] [phone] Jul, Generalized anxiety disorder F41.1 [facility] [address] [place] [id number] [address] [place] [phone] Jul, Generalized anxiety disorder F41.1 [facility] [address] [phone] Jul, Primary osteoarthritis invol ving multiple joints M15.0 [facility] [address] [place] [id number] [address] [place] [phone] Jun, Generalized anxiety disorder F41.1 [facility] [address] [place] [id number] [address] [place] [phone] Jun, [facility] [address] [place] [id number] [address] [place] [phone] Jun, Mixed hyperlipidemia E78.2 [facility] [address] [place] [id number] [address] [place] [phone] Jun, Generalized anxiety disorder F41.1 [facility] [address] [place] [id number] [address] [place] [phone] Jun, Generalized anxiety disorder F41.1 ; Major depressive disorder, recurrent episode, mild degree F33.0 and Habitual self-excoriation F42.4 [facility] [address] [id number] [address] [place] [phone] May, [facility] [address] [id number] [address] [place] [phone] May, Generalized anxiety disorder F41.1 [facility] [address] [id number] [address] [place] [phone] May, Generalized anxiety disorder F41.1 [facility] [address] [id number] [address] [place] [phone] May, Primary osteoarthritis invol ving multiple joints M15.0 [facility] [address] [id number] [address] [place] [phone] Apr, Major depressive disorder, r ecurrent episode, mild degree F33.0 ; Generalized anxiety disorder F41.1 and Excoriation, neurotic L98.1 [facility] [address] [id number] [address] [place] [phone] Apr, Primary osteoarthritis invol ving multiple joints M15.0 [facility] [address] [id number] [address] [place] [phone] Apr, Essential hypertension I10 a nd Mixed hyperlipidemia E78.2 [facility] [address] [id number] [address] [place] [phone] Apr, Generalized anxiety disorder F41.1 ; Major depressive disorder, recurrent episode, mild degree F33.0 and Habitual self-excoriation F42.4 [facility] [address] [id number] [address] [place] [phone] Mar, Generalized anxiety disorder F41.1 ; Major depressive disorder, recurrent episode, mild degree F33.0 and Habitual self-excoriation F42.4 [facility] [address] [id number] [address] [place] [phone] Mar, Skin lesion L98.9 [facility] [address] [facility] [id number] [address] [place] [phone] Mar, Primary osteoarthritis invol ving multiple joints M15.0 [facility] [address] [facility] [id number] [address] [place] [phone] Mar, [facility] [address] [facility] [id number] [address] [place] [phone] Mar, [facility] [address] [facility] [id number] [address] [place] [phone] Feb, Major depressive disorder, r ecurrent episode, mild degree F33.0 ; Generalized anxiety disorder F41.1 and Excoriation, neurotic L98.1 [place] [address] [place] [id number] [address] [place] [phone] Feb, Generalized anxiety disorder F41.1 [place] [address] [place] [id number] [address] [place] [phone] Feb, Primary osteoarthritis invol ving multiple joints M15.0 [facility] [address] [facility] [id number] [address] [place] [phone] Jan, [place] [address] [place] [id number] [address] [place] [phone] Jan, Essential hypertension I10 ; Splenic artery aneurysm I72.8 ; Liver mass R16.0 ; Restrictive lung disease J98.4 ; Primary osteoarthritis involving multiple joints M15.0 ; Mixed hyperlipidemia E78.2 ; Bilateral carpal tunnel syndrome G56.03 ; Body mass index (bmi) 50-59.9 , adult Z68.43 and History of tobacco use Z87.891 [place] [address] [place] [id number] [address] [place] [phone] Jan, Major depressive disorder, r ecurrent episode, mild degree F33.0 and Generalized anxiety disorder F41.1 [facility] [address] [place] [id number] [address] [place] [phone] Jan, [place] [address] [facility] [id number] [address] [place] [phone] Jan, Generalized anxiety disorder F41.1 and Major depressive disorder, recurrent episode, mild degree F33.0 [facility] [address] [facility] [id number] [address] [place] [phone] Dec, Primary osteoarthritis invol ving multiple joints M15.0 [facility] [address] [facility] [id number] [address] [place] [phone] Dec, Generalized anxiety disorder F41.1 [place] [address] [facility] [id number] [address] [place] [phone] Dec, [place] [address] [facility] [id number] [address] [place] [phone] Dec, Major depressive disorder, r ecurrent episode, mild degree F33.0 and Generalized anxiety disorder F41.1 [place] [address] [facility] [id number] [address] [place] [phone] Dec, Generalized anxiety disorder F41.1 and Major depressive disorder, recurrent episode, mild degree F33.0 [place] [address] [facility] [id number] [address] [place] [phone] November, Mild major depression F32.0 and Primary osteoarthritis involving multiple joints M15.0 [place] [address] [facility] [id number] [address] [place] [phone] November, Major depressive disorder, r ecurrent episode, mild degree F33.0 and Generalized anxiety disorder F41.1 [place] [address] [facility] [id number] [address] [place] [phone] November, Primary osteoarthritis invol ving multiple joints M15.0 ; Essential hypertension I10 ; Prediabetes R73.09 ; Mixed hyperlipidemia E78.2 ; Chronic prescription benzodiazepine use Z79.899 ; Chronic prescription opiate use Z79.899 ; Tobacco use Z72.0 ; Bilateral carpal tunnel syndrome G56.03 and Body mass index (bmi) 50-59.9 , adult Z68.43 [place] [address] [facility] [id number] [address] [place] [phone] November, Primary osteoarthritis invol ving multiple joints M15.0 and Mild major depression F32.0 [facility] [address] [facility] [id number] [address] [place] [phone] Oct, [facility] [address] [place] [id number] [address] [place] [address] Oct, Primary osteoarthritis invol ving multiple joints M15.0 ; Essential hypertension I10 ; Prediabetes R73.09 ; Chronic prescription benzodiazepine use Z79.899 ; Chronic prescription opiate use Z79.899 ; Tobacco use Z72.0 ; Mixed hyperlipidemia E78.2 ; Bilateral carpal tunnel syndrome G56.03 ; Body mass index (bmi) 50-59.9 , adult Z68.43 and Encounter for immunization Z23 [facility] [address] [place] [id number] [address] [place] [phone] Oct, Major depressive disorder, r ecurrent episode, mild degree F33.0 and Generalized anxiety disorder F41.1 [facility] [address] [facility] [id number] [address] [place] [phone] Oct, [facility] [address] [facility] [id number] [address] [place] [phone] Oct, [facility] [address] [facility] [id number] [address] [place] [phone] Sep, Mild major depression F32.0 [facility] [address] [facility] [id number] [address] [place] [phone] Sep, [facility] [address] [facility] [id number] [address] [place] [phone] Sep, Mild major depression F32.0 and Generalized anxiety disorder F41.1 [facility] [address] [facility] [id number] [address] [place] [phone] Sep, Paresthesia of both hands R2 0.2 and Cervical radiculopathy M54.12 [facility] [address] [place] [id number] [address] [place] [phone] Sep, [facility] [address] [phone] Sep, [facility] [address] [phone] Aug, Paresthesia of both hands R2 0.2 and Neck pain M54.2 [facility] [address] [address] Aug, [facility] [address] [place] [id number] [place] [phone] Jul, Neck pain M54.2 and Paresthe eddie of both hands R20.2 [place] [address] [place] [id number] [place] [address] Jul, Proteinuria, unspecified typ e R80.9 [place] [address] [phone] Jul, Proteinuria, unspecified typ e R80.9 [place] [address] [phone] Jul, [place] [address] [phone] Jul, Other specified transient ce rebral ischemias G45.8 [place] [address] [id number] Jun, Diastolic dysfunction I51.9 [place] [address] [phone] Jun, Diastolic dysfunction I51.9 [place] [address] [phone] Jun, Major depressive disorder, s david episode, unspecified F32.9 and Anxiety disorder, unspecified F41.9 [place] [address] [id number] Jun, [facility] [address] [place] [id number] [address] [place] [phone] Jun, [facility] [address] [place] [id number] [address] [place] [id number] May, Moderate major depression F3 2.1 and Generalized anxiety disorder F41.1 [facility] [address] [place] [id number] [place] [phone] 16 May, 2016 Major depressive disorder, s david episode, unspecified F32.9 and Anxiety disorder, unspecified F41.9 [facility] [address] [place] [id number] [place] [address] 15 May, 2016 [facility] [address] [place] [id number] [place] [phone] 14 May, 2016 Liver enzyme elevation R74.8 [facility] [address] [address] May, Liver enzyme elevation R74.8 [facility] [address] [place] [id number] [place] [phone] 10 May, 2016 Shortness of breath on exert ion R06.02 ; Essential hypertension I10 ; Mixed hyperlipidemia E78.2 and Tobacco use Z72.0 [facility] [address] [place] [id number] [address] [place] [address] May, [facility] [address] [place] [id number] [address] [place] [phone] May, [facility] [address] [place] [id number] [address] [place] [phone] Apr, Anxiety F41.9 and Depression F32.9 [facility] [address] [place] [id number] [address] [place] [phone] Apr, [facility] [address] [place] [id number] [address] [place] [phone] Apr, [facility] [address] [place] [id number] [address] [place] [phone] 22 Mar, 2016 Depression F32.9 and Anxiety F41.9 [facility] [address] [id number] [address] [place] [phone] 08 Mar, 2016 Anxiety F41.9 and Depression F32.9 [facility] [address] [id number] [address] [place] [phone] 06 Mar, 2016 Well woman exam (no gynecolo gical exam) Z00.00 [facility] [address] [id number] [address] [place] [phone] Mar, [facility] [address] [id number] [address] [place] [phone] Mar, [facility] [address] [id number] [address] [place] [id number] Feb, Dental caries K02.9 [facility] [address] [id number] [address] [place] [phone] Feb, [facility] [address] [id number] [address] [place] [phone] Feb, Anxiety F41.9 and Depression F32.9 [facility] [address] [id number] [address] [place] [id number] Feb, Dental examination Z01.20 [facility] [address] [id number] [address] [place] [phone] Feb, [facility] [address] [id number] [address] [place] [phone] Feb, [facility] [address] [id number] [address] [place] [phone] Feb, Anxiety F41.9 and Depression F32.9 [facility] [address] [id number] [address] [place] [id number] Jan, Severe episode of recurrent major depressive disorder, without psychotic features F33.2 and Anxiety disorder, unspecified F41.9 [facility] [address] [id number] [address] [place] [phone] Jan, [facility] [address] [id number] [address] [place] [phone] Dec, [facility] [address] [id number] [address] [place] [phone] Dec, Anxiety F41.9 and Depression F32.9 [facility] [address] [id number] [address] [place] [phone] 24 Dec, 2015 Other specified transient ce rebral ischemias G45.8 and Nocturnal hypoxia G47.34 [facility] [address] [id number] [address] [place] [phone] 18 Dec, 2015 [facility] [address] [id number] [address] [place] [phone] 17 Dec, 2015 Other specified transient ce rebral ischemias G45.8 [facility] [address] [id number] [address] [place] [phone] 16 Dec, 2015 Severe episode of recurrent major depressive disorder, without psychotic features F33.2 and Anxiety disorder, unspecified F41.9 [facility] [address] [id number] [address] [place] [phone] Dec, [facility] [address] [id number] [address] [place] [phone] Dec, Anxiety F41.9 and Depression F32.9 [facility] [address] [id number] [address] [place] [phone] 07 Dec, 2015 Anxiety F41.9 and Depression F32.9 [facility] [address] [id number] [address] [place] [phone] Dec, [facility] [address] [id number] [address] [place] [phone] November, Anxiety F41.9 and Depression F32.9 [facility] [address] [facility] [id number] [address] [place] [phone] November, Severe episode of recurrent major depressive disorder, without psychotic features F33.2 [place] [address] [id number] November, Mixed hyperlipidemia E78.2 [place] [address] [id number] November, Anxiety F41.9 and Depression F32.9 [place] [address] [id number] 05 Nov, 2015 Prediabetes R73.09 ; Essenti al hypertension I10 ; Anxiety F41.9 ; Depression F32.9 ; Gastroesophageal reflux disease, esophagitis presence not specified K21.9 ; Primary osteoarthritis involving multiple joints M15.0 ; History of renal cell cancer Z85.528 ; Postnasal drip R09.82 ; Allergic rhinitis, unspecified J30.9 and Tobacco use Z72.0 [place] [address] [id number] Oct, Anxiety F41.9 and Depression F32.9 [place] [address] [id number] 07 Oct, 2015 [place] [address] [id number] Oct, [place] [address] [id number] 14 Sep, 2015 Splenic artery aneurysm I72. 8 [place] [address] [id number] 10 Sep, 2015 Depression F32.9 ; Anxiety F 41.9 ; Chronic prescription benzodiazepine use Z79.899 and Splenic artery aneurysm I72.8 [place] [address] [id number] 10 Sep, 2015 Depression F32.9 and Anxiety F41.9 [place] [address] [id number] Sep, [facility] [address] [place] [id number] [address] [place] [phone] 18 Aug, 2015 Dehydration E86.0 ; Diarrhea R19.7 ; Nausea R11.0 and Generalized abdominal pain R10.84 [facility] [address] [place] [id number] [address] [place] [phone] Aug, [facility] [address] [place] [id number] [place] [phone] Jul, Depression F32.9 [facility] [address] [place] [id number] [place] [phone] Jul, [facility] [address] [id number] Jul, Anxiety F41.9 and Depression F32.9 [facility] [address] [id number] Jul, [facility] [address] [place] [id number] [address] [place] [phone] Jun, Epigastric pain R10.13 [facility] [address] [place] [id number] [address] [place] [phone] Jun, [facility] [address] [place] [id number] [address] [place] [phone] Jun, [facility] [address] [place] [id number] [address] [place] [phone] May, [facility] [address] [place] [id number] [address] [place] [phone] May, [facility] [address] [id number] Apr, [facility] [address] [place] [id number] [address] [place] [phone] Mar, Anxiety state, unspecified 3 00.00 ; Depression 311 ; Prediabetes 790.29 ; Generalized osteoarthrosis, involving multiple sites 715.09 and Hypertension 401.9 [facility] [address] [id number] [address] [place] [address], [place] [address] Mar, [facility] [address] [id number] [address] [place] [phone] Feb, [facility] [address] [id number] [address] [place] [phone] Jan, [facility] [address] [id number] [address] [place] [phone] Jan, [facility] [address] [id number] [address] [place] [id number] Jan, Generalized osteoarthrosis, involving multiple sites 715.09 [facility] [address] [id number] [address] [place] [phone] Jan, Hx of renal cell cancer V10. 52 [facility] [address] [id number] [address] [place] [id number] Dec, Generalized osteoarthrosis, involving multiple sites 715.09 and Hx of renal cell cancer V10.52 [facility] [address] [id number] [address] [place] [phone] Dec, [facility] [address] [id number] [address] [place] [phone] Dec, [facility] [address] [id number] [address] [place] [phone] November, [facility] [address] [id number] [address] [place] [phone] Oct, [facility] [address] [id number] [address] [place] [phone] Oct, [facility] [address] [id number] [address] [place] [phone] Sep, [facility] [address] [id number] [address] [place] [phone] Sep, [facility] [address] [facility] [id number] [address] [place] [phone] Sep, [facility] [address] [facility] [id number] [address] [place] [phone] Sep, [facility] [address] [facility] [id number] [address] [place] [phone] Aug, [facility] [address] [facility] [id number] [address] [place] [phone] Aug, IMMUNIZATIONS No Known Immunizations SOCIAL HISTORY Never Assessed REASON FOR VISIT PALS- Stiolto PLAN OF CARE VITAL SIGNS MEDICATIONS Medication Instructions Dosage Frequency Start Date End Date Duration S tatus Stiolto Respimat 2.5-2.5 MCG/ACT Inhalation Once a day 2 puffs 24h November, Active RESULTS No Results PROCEDURES No Known [...]
--- OUTSIDE RECORDS SUMMARY | 2020-02-08 07:15 | XMS REPORT ---
Author Author Emilee EWING Organization [facility] Address Unknown Care Team Providers Care Tenter Name Role Phone CHRISTIAN EWING Unavailable PROBLEMS Type Condition ICD9-CM Code RTW54-BO Code Onset Dates Condition S tatus SNOMED Code Problem Mixed hyperlipidemia E78.2 Active 538569686 Problem Fatty liver K76.0 Active 73804503 7 Problem Obstructive sleep apnea G47.33 Active 10666290 Problem Allergic rhinitis, unspecified J30.9 Active 15235337 Problem Essential hypertension I10 Active 58703128 Problem History of renal cell cancer Z85.528 A ctive 347433837 Problem Prediabetes R73.09 Active 9219216 Problem Diastolic dysfunction I51.9 Active 3606197 Problem Body mass index (bmi) 50-59.9 , adult Z68.43 Active 849261817 Problem Paresthesia of both hands R20.2 Acti ve 762631950 Problem Habitual self-excoriation 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 Acti ve 384463752 Problem BMI 50.0-59.9, adult Z68.43 Active 712504391 Problem Restrictive lung disease J98.4 Activ e 78945794 Problem Splenic artery aneurysm I72.8 Active 99484563 Problem Liver mass R16.0 Active 578183051 Problem Generalized anxiety disorder F41.1 A ctive 22489266 Problem Major depressive disorder, recurrent episode, mild degree F33.0 Active 327047743 Problem Excoriation, neurotic L98.1 Active 95655947 Problem History of tobacco use Z87.891 Active 2953530807954 Problem Primary osteoarthritis involving multiple joints M 15.0 Active 802199667 Problem Isolated proteinuria without specific morphologic lesion R80.0 Active 13571096 Problem 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 Active 147733957 Problem Pulmonary emphysema, unspecified emphysema type J4 3.9 Active 75972553 Problem Chronic prescription opiate use Z79.899 Active 831333939 Problem Tobacco use Z72.0 Active 30275432 0 Problem Bilateral carpal tunnel syndrome G56.03 Active 79630605 Problem Chronic prescription benzodiazepine use Z79.899 Active 518472708 ALLERGIES No Known Allergies ENCOUNTERS Encounter Location Date Diagnosis [facility] [address] [facility] [id number] [address] [place] [id number] 07 May, 2018 [facility] [address] [facility] [id number] [address] [place] [id number] 15 Apr, 2018 [facility] [address] [facility] [id number] [address] [place] [id number] 20 Mar, 2018 [facility] [address] [facility] [id number] [address] [place] [id number] Mar, [facility] [address] [place] [id number] [address] [place] [id number] 14 Feb, 2018 Generalized anxiety disorder F41.1 ; Major depressive disorder, recurrent episode, mild degree F33.0 and Habitual self-excoriation F42.4 [place] [address] [place] [id number] [address] [place] [address] Feb, Generalized anxiety disorder F41.1 and Major depressive disorder, recurrent episode, mild degree F33.0 [place] [address] [place] [id number] [address] [place] [address] Feb, [place] [address] [place] [id number] [address] [place] [address] Feb, Restrictive lung disease J98 .4 ; Pulmonary emphysema, unspecified emphysema type J43.9 and Body mass index (bmi) 50-59.9 , adult Z68.43 [facility] [address] [facility] [id number] [address] [place] [address] Feb, Generalized anxiety disorder F41.1 ; Major depressive disorder, recurrent episode, mild degree F33.0 and Habitual self-excoriation F42.4 [place] [id number] [facility] [id number] [address] [place] [address] Feb, [facility] [address] [place] [id number] [address] [place] [phone] Jan, [facility] [address] [facility] [id number] [address] [place] [id number] Jan, Pulmonary emphysema, unspeci fied emphysema type J43.9 [facility] [address] [id number] [address] [place] [id number] Jan, Dental examination Z01.20 an d Dental caries K02.9 [facility] [address] [address] Jan, Generalized anxiety disorder F41.1 and Major depressive disorder, recurrent episode, mild degree F33.0 [facility] [address] [address] Jan, [facility] [address] [id number] Jan, Generalized anxiety disorder F41.1 [facility] [address] [place] [id number] [address] [place] [id number] Jan, Oral abscess K12.2 and BMI 5 0.0-59.9, adult Z68.43 [facility] [address] [address] Dec, BMI 50.0-59.9, adult Z68.43 and Weight loss counseling, encounter for Z71.3 [facility] [address] [place] [id number] [address] [place] [address] Dec, [facility] [address] [place] [id number] [address] [place] [address] Dec, [facility] [address] [address] November, [facility] [address] [place] [id number] [place] [address] November, [facility] [address] [address] November, Pulmonary emphysema, unspeci fied emphysema type J43.9 ; Restrictive lung disease J98.4 ; BMI 50.0-59.9, adult Z68.43 ; History of renal cell cancer Z85.528 ; Essential hypertension I10 ; Mixed hyperlipidemia E78.2 and Fatty liver K76.0 [facility] [address] [place] [id number] [address] [place] [address] November, Generalized anxiety disorder F41.1 [facility] [address] [place] [id number] [place] [address] November, Generalized anxiety disorder F41.1 and Major depressive disorder, recurrent episode, mild degree F33.0 [place] [address] [address] November, Generalized anxiety disorder F41.1 ; Major depressive disorder, recurrent episode, mild degree F33.0 and Habitual self-excoriation F42.4 [place] [id number] [place] [address] November, [facility] [address] [place] [id number] [address] [place] [address] Oct, Generalized anxiety disorder F41.1 [place] [address] [place] [id number] [address] [place] [address] Oct, [facility] [address] [place] [id number] [address] [place] [address] Oct, Influenza-like illness R69 [facility] [address] [place] [id number] [address] [place] [address] Sep, Influenza-like illness R69 [facility] [address] [place] [id number] [address] [place] [address] Sep, Generalized anxiety disorder F41.1 [facility] [address] [place] [id number] [address] [place] [address] Sep, [facility] [address] [place] [id number] [address] [place] [address] Aug, [facility] [address] [facility] [id number] [address] [place] [address] Aug, [facility] [address] [place] [id number] [address] [place] [address] Aug, Generalized anxiety disorder F41.1 [facility] [address] [facility] [id number] [address] [place] [address] Aug, Influenza-like illness R69 a nd BMI 50.0-59.9, adult Z68.43 [facility] [address] [place] [id number] [address] [place] [address] Jul, Fatty liver K76.0 ; Restrict jean-paul lung disease J98.4 ; Diastolic dysfunction I51.9 ; Body mass index (bmi) 50-59.9 , adult Z68.43 and Chronic prescription opiate use Z79.899 [facility] [address] [place] [id number] [address] [place] [address] Jul, Generalized anxiety disorder F41.1 [facility] [address] [place] [id number] [address] [place] [address] Jul, Generalized anxiety disorder F41.1 [facility] [address] [place] [id number] [address] [place] [address] Jul, Primary osteoarthritis invol ving multiple joints M15.0 [facility] [address] [place] [id number] [address] [place] [address] Jun, Generalized anxiety disorder F41.1 [facility] [address] [facility] [id number] [address] [place] [address] Jun, [facility] [address] [place] [id number] [address] [place] [address] Jun, Mixed hyperlipidemia E78.2 [facility] [address] [place] [id number] [address] [place] [address] Jun, Generalized anxiety disorder F41.1 [facility] [address] [place] [address] Jun, Generalized anxiety disorder F41.1 ; Major depressive disorder, recurrent episode, mild degree F33.0 and Habitual self-excoriation F42.4 [facility] [address] [id number] [address] [place] [address] May, [facility] [address] [id number] [address] [place] [address] May, Generalized anxiety disorder F41.1 [facility] [address] [id number] [address] [place] [address] May, Generalized anxiety disorder F41.1 [facility] [address] [id number] [address] [place] [address] May, Primary osteoarthritis invol ving multiple joints M15.0 [facility] [address] [id number] [address] [place] [address] Apr, Major depressive disorder, r ecurrent episode, mild degree F33.0 ; Generalized anxiety disorder F41.1 and Excoriation, neurotic L98.1 [facility] [address] [id number] [address] [place] [address] Apr, Primary osteoarthritis invol ving multiple joints M15.0 [facility] [address] [id number] [address] [place] [address] Apr, Essential hypertension I10 a nd Mixed hyperlipidemia E78.2 [facility] [address] [id number] [address] [place] [address] Apr, Generalized anxiety disorder F41.1 ; Major depressive disorder, recurrent episode, mild degree F33.0 and Habitual self-excoriation F42.4 [facility] [address] [id number] [address] [place] [address] Mar, Generalized anxiety disorder F41.1 ; Major depressive disorder, recurrent episode, mild degree F33.0 and Habitual self-excoriation F42.4 [facility] [address] [place] [id number] [address] [place] [id number] 05 Mar, 2017 Skin lesion L98.9 [facility] [address] [place] [id number] [address] [place] [address] Mar, Primary osteoarthritis invol ving multiple joints M15.0 [facility] [address] [place] [id number] [place] [address] Mar, [facility] [address] [place] [id number] [place] [address] Mar, [place] [address] [place] [id number] [place] [address] Feb, Major depressive disorder, r ecurrent episode, mild degree F33.0 ; Generalized anxiety disorder F41.1 and Excoriation, neurotic L98.1 [place] [address] [address] Feb, Generalized anxiety disorder F41.1 [place] [address] [address] Feb, Primary osteoarthritis invol ving multiple joints M15.0 [place] [address] [id number] Jan, [place] [address] [place] [id number] [place] [address] Jan, Essential hypertension I10 ; Splenic artery aneurysm I72.8 ; Liver mass R16.0 ; Restrictive lung disease J98.4 ; Primary osteoarthritis involving multiple joints M15.0 ; Mixed hyperlipidemia E78.2 ; Bilateral carpal tunnel syndrome G56.03 ; Body mass index (bmi) 50-59.9 , adult Z68.43 and History of tobacco use Z87.891 [place] [address] [place] [id number] [place] [address] Jan, Major depressive disorder, r ecurrent episode, mild degree F33.0 and Generalized anxiety disorder F41.1 [place] [address] [address] Jan, [facility] [address] [id number] [address] [place] [address] Jan, Generalized anxiety disorder F41.1 and Major depressive disorder, recurrent episode, mild degree F33.0 [facility] [address] [id number] [address] [place] [address] Dec, Primary osteoarthritis invol ving multiple joints M15.0 [facility] [address] [id number] [address] [place] [address] Dec, Generalized anxiety disorder F41.1 [facility] [address] [id number] [address] [place] [address] Dec, [facility] [address] [facility] [id number] [address] [place] [address] Dec, Major depressive disorder, r ecurrent episode, mild degree F33.0 and Generalized anxiety disorder F41.1 [facility] [address] [id number] [address] [place] [address] Dec, Generalized anxiety disorder F41.1 and Major depressive disorder, recurrent episode, mild degree F33.0 [facility] [address] [id number] [address] [place] [id number] November, Mild major depression F32.0 and Primary osteoarthritis involving multiple joints M15.0 [facility] [address] [id number] [address] [place] [id number] November, Major depressive disorder, r ecurrent episode, mild degree F33.0 and Generalized anxiety disorder F41.1 [facility] [address] [id number] [address] [place] [address] November, Primary osteoarthritis invol ving multiple joints M15.0 ; Essential hypertension I10 ; Prediabetes R73.09 ; Mixed hyperlipidemia E78.2 ; Chronic prescription benzodiazepine use Z79.899 ; Chronic prescription opiate use Z79.899 ; Tobacco use Z72.0 ; Bilateral carpal tunnel syndrome G56.03 and Body mass index (bmi) 50-59.9 , adult Z68.43 [facility] [address] [place] [id number] [address] [place] [address] November, Primary osteoarthritis invol ving multiple joints M15.0 and Mild major depression F32.0 [facility] [address] [place] [id number] [address] [place] [address] Oct, [facility] [address] [address] Oct, Primary osteoarthritis invol ving multiple joints M15.0 ; Essential hypertension I10 ; Prediabetes R73.09 ; Chronic prescription benzodiazepine use Z79.899 ; Chronic prescription opiate use Z79.899 ; Tobacco use Z72.0 ; Mixed hyperlipidemia E78.2 ; Bilateral carpal tunnel syndrome G56.03 ; Body mass index (bmi) 50-59.9 , adult Z68.43 and Encounter for immunization Z23 [place] [address] [address] Oct, Major depressive disorder, r ecurrent episode, mild degree F33.0 and Generalized anxiety disorder F41.1 [place] [address] [address] Oct, [facility] [address] [place] [id number] [address] [place] [address] Oct, [place] [address] [place] [id number] [address] [place] [address] Sep, Mild major depression F32.0 [place] [id number] [facility] [id number] [address] [place] [address] Sep, [place] [address] [place] [id number] [place] [address] Sep, Mild major depression F32.0 and Generalized anxiety disorder F41.1 [facility] [address] [place] [id number] [address] [place] [phone] Sep, Paresthesia of both hands R2 0.2 and Cervical radiculopathy M54.12 [facility] [address] [facility] [id number] [address] [place] [address] Sep, [facility] [address] [facility] [id number] [address] [place] [address] Sep, [place] [address] [facility] [id number] [address] [place] [address] Aug, Paresthesia of both hands R2 0.2 and Neck pain M54.2 [place] [address] [facility] [id number] [address] [place] [address] Aug, [place] [address] [address] Jul, Neck pain M54.2 and Paresthe eddie of both hands R20.2 [place] [address] [address] Jul, Proteinuria, unspecified typ e R80.9 [place] [address] [place] [id number] [address] [place] [address] Jul, Proteinuria, unspecified typ e R80.9 [place] [address] [place] [id number] [address] [place] [address] Jul, [place] [address] [address] Jul, Other specified transient ce rebral ischemias G45.8 [place] [address] [place] [id number] [address] [place] [address] Jun, Diastolic dysfunction I51.9 [place] [address] [address] Jun, Diastolic dysfunction I51.9 [place] [address] [place] [id number] [address] [place] [address] Jun, Major depressive disorder, s david episode, unspecified F32.9 and Anxiety disorder, unspecified F41.9 [place] [address] [place] [id number] [address] [place] [address] Jun, [facility] [address] [address] Jun, [facility] [address] [place] [id number] [place] [address] May, Moderate major depression F3 2.1 and Generalized anxiety disorder F41.1 [facility] [address] [address] 16 May, 2016 Major depressive disorder, s david episode, unspecified F32.9 and Anxiety disorder, unspecified F41.9 [facility] [address] [address] 15 May, 2016 [facility] [address] [address] 14 May, 2016 Liver enzyme elevation R74.8 [facility] [address] [address] May, Liver enzyme elevation R74.8 [facility] [address] [address] 10 May, 2016 Shortness of breath on exert ion R06.02 ; Essential hypertension I10 ; Mixed hyperlipidemia E78.2 and Tobacco use Z72.0 [place] [address] [address] May, [facility] [address] [address] May, [facility] [address] [address] Apr, Anxiety F41.9 and Depression F32.9 [facility] [address] [place] [id number] [place] [address] Apr, [facility] [address] [address] Apr, [facility] [address] [id number] [address] [place] [address] Mar, Depression F32.9 and Anxiety F41.9 [facility] [address] [id number] [address] [place] [id number] 08 Mar, 2016 Anxiety F41.9 and Depression F32.9 [facility] [address] [id number] [address] [place] [address] Mar, Well woman exam (no gynecolo gical exam) Z00.00 [facility] [address] [id number] [address] [place] [address] Mar, [facility] [address] [id number] [address] [place] [address] Mar, [facility] [address] [id number] [address] [place] [id number] Feb, Dental caries K02.9 [facility] [address] [id number] [address] [place] [address] Feb, [facility] [address] [id number] [address] [place] [address] Feb, Anxiety F41.9 and Depression F32.9 [facility] [address] [id number] [address] [place] [address] [id number] Feb, Dental examination Z01.20 [facility] [address] [id number] [address] [place] [id number] Feb, [facility] [address] [id number] [address] [place] [phone] Feb, [facility] [address] [id number] [address] [place] [address] Feb, Anxiety F41.9 and Depression F32.9 [facility] [address] [id number] [address] [place] [address] Jan, Severe episode of recurrent major depressive disorder, without psychotic features F33.2 and Anxiety disorder, unspecified F41.9 [facility] [address] [id number] [address] [place] [address] Jan, [facility] [address] [id number] [address] [place] [address] Dec, [facility] [address] [id number] [address] [place] [address] Dec, Anxiety F41.9 and Depression F32.9 [facility] [address] [id number] [address] [place] [id number] 24 Dec, 2015 Other specified transient ce rebral ischemias G45.8 and Nocturnal hypoxia G47.34 [facility] [address] [id number] [address] [place] [id number] Dec, [facility] [address] [id number] [address] [place] [phone] Dec, Other specified transient ce rebral ischemias G45.8 [facility] [address] [id number] [address] [place] [id number] 16 Dec, 2015 Severe episode of recurrent major depressive disorder, without psychotic features F33.2 and Anxiety disorder, unspecified F41.9 [facility] [address] [id number] [address] [place] [phone] Dec, [facility] [address] [id number] [address] [place] [phone] Dec, Anxiety F41.9 and Depression F32.9 [facility] [address] [id number] [address] [place] [phone] Dec, Anxiety F41.9 and Depression F32.9 [facility] [address] [id number] [address] [place] [address] Dec, [facility] [address] [id number] [address] [place] [phone] November, Anxiety F41.9 and Depression F32.9 [place] [id number] [facility] [id number] [address] [place] [address] November, Severe episode of recurrent major depressive disorder, without psychotic features F33.2 [place] [address] [address] [place] [id number] [address] [place] [id number] November, Mixed hyperlipidemia E78.2 [place] [address] [place] [id number] [place] [phone] November, Anxiety F41.9 and Depression F32.9 [place] [address] [id number] 05 Nov, 2015 Prediabetes R73.09 ; Essenti al hypertension I10 ; Anxiety F41.9 ; Depression F32.9 ; Gastroesophageal reflux disease, esophagitis presence not specified K21.9 ; Primary osteoarthritis involving multiple joints M15.0 ; History of renal cell cancer Z85.528 ; Postnasal drip R09.82 ; Allergic rhinitis, unspecified J30.9 and Tobacco use Z72.0 [place] [address] [phone] Oct, Anxiety F41.9 and Depression F32.9 [place] [address] [id number] 07 Oct, 2015 [place] [address] [address] Oct, [place] [id number] [place] [id number] 14 Sep, 2015 Splenic artery aneurysm I72. 8 [place] [address] [place] [id number] [place] [phone] 10 Sep, 2015 Depression F32.9 ; Anxiety F 41.9 ; Chronic prescription benzodiazepine use Z79.899 and Splenic artery aneurysm I72.8 [place] [address] [place] [id number] [place] [id number] 10 Sep, 2015 Depression F32.9 and Anxiety F41.9 [place] [address] [place] [id number] [address] [place] [id number] Sep, [facility] [address] [id number] Aug, Dehydration E86.0 ; Diarrhea R19.7 ; Nausea R11.0 and Generalized abdominal pain R10.84 [facility] [address] [id number] Aug, [facility] [address] [id number] Jul, Depression F32.9 [facility] [address] [address] Jul, [facility] [address] [id number] Jul, Anxiety F41.9 and Depression F32.9 [facility] [address] [address] Jul, [facility] [address] [address] Jun, Epigastric pain R10.13 [facility] [address] [place] [id number] [place] [phone] Jun, [facility] [address] [id number] Jun, [facility] [address] [id number] May, [facility] [address] [address] May, [facility] [address] [place] [id number] [place] [phone] Apr, [facility] [address] [place] [id number] [place] [phone] Mar, Anxiety state, unspecified 3 00.00 ; Depression 311 ; Prediabetes 790.29 ; Generalized osteoarthrosis, involving multiple sites 715.09 and Hypertension 401.9 [facility] [address] [id number] [address] [place] [phone] Mar, [facility] [address] [id number] [address] [place] [phone] Feb, [facility] [address] [id number] [address] [place] [phone] Jan, [facility] [address] [id number] [address] [place] [phone] Jan, [facility] [address] [id number] [address] [place] [phone] Jan, Generalized osteoarthrosis, involving multiple sites 715.09 [facility] [address] [id number] [address] [place] [id number] Jan, Hx of renal cell cancer V10. 52 [facility] [address] [id number] [address] [place] [phone] Dec, Generalized osteoarthrosis, involving multiple sites 715.09 and Hx of renal cell cancer V10.52 [facility] [address] [id number] [address] [place] [phone] Dec, [facility] [address] [id number] [address] [place] [phone] Dec, [facility] [address] [id number] [address] [place] [phone] November, [facility] [address] [id number] [address] [place] [phone] Oct, [facility] [address] [id number] [address] [place] [phone] Oct, [facility] [address] [id number] [address] [place] [phone] Sep, [facility] [address] [facility] [id number] [address] [place] [phone] Sep, [facility] [address] [facility] [id number] [address] [place] [phone] Sep, [facility] [address] [facility] [id number] [address] [place] [id number] Sep, [facility] [address] [facility] [id number] [address] [place] [phone] Aug, [facility] [address] [facility] [id number] [address] [place] [phone] Aug, IMMUNIZATIONS No Known Immunizations SOCIAL HISTORY Never Assessed REASON FOR VISIT kurt PLAN OF CARE Activity Details Follow Up prn Reason:ana/hygiene VITAL SIGNS Height 62 in 2018-02-13 Blood pressure systolic 133 mmHg 2018-02-13 Blood pressure diastolic 86 mmHg 2018-02-13 MEDICATIONS Medication Instructions Dosage Frequency Start Date End Date Duration S tatus Vitamin E Complete Activ e Tizanidine HCl 2 MG TAKE ONE TABLET BY MOUTH EVERY 8 HOURS NE EDED 30 Active Naproxen 500 MG Orally every 12 hrs 1 tablet with food or milk as n eeded 12h Jan, Jan, 10 days Active Diazepam 5 mg Orally Once a day as needed for anxiety 0.5 tablet 30 days Active Wellbutrin XL 150 MG Orally Once a day (along wit h 300 mg tablet to equal 450 mg daily 1 tablet in the morning A ctive Stiolto Respimat 2.5-2.5 MCG/ACT Inhalation Once a day 2 puffs 24h November, Active Omeprazole 40 MG TAKE ONE CAPSULE BY MOUTH ONCE DAILY 30 Active Cymbalta 30 MG Orally Once a day 3 capsules 24h Active Potassium Chloride ER 20 MEQ TAKE ONE TABLET BY MOUTH ONCE DAILY WITH FOOD 30 Active Remeron 15 mg Orally Once a day at bedtime 1 tablet at bedtime Active Furosemide 20 MG TAKE ONE TABLET BY MOUTH ONCE DAILY 30 Active Atenolol 50 MG TAKE ONE TABLET BY MOUTH ONCE DAILY 90 Active Hydrocodone-Acetaminophen 5-325 MG Orally 2 times a day as n eeded for pain take 1 tablet Jan, 28 Active Amoxicillin 500 MG Orally every 8 hrs 1 capsule 8h Jan, Jan, 10 day(s) Active Wellbutrin XL 300 MG Orally Once a day 1 tablet in the morning 24h Active ProAir HFA 108 (90 Base) MCG/ACT Inhalation every 4 hrs 2 puffs as ne eded 4h 17 Active Atorvastatin Calcium 40 MG TAKE ONE TABLET BY MOUTH ONCE DAILY 30 Active RESULTS No Results PROCEDURES Procedure Date Ordered Result Body Site LTD ORAL EVALUATION - PROBLEM FOCUS February 13, 2018 INTRAORL-PERIAPICAL 1 FILM [id number] February 13, 2018 EXTRAC ERUPTED TOOTH/EXPOSED ROOT February 13, 2018 BITEWING - SINGLE FILM February 13, 2018 INSTRUCTIONS MEDICATIONS ADMINISTERED No Known Medications [...]
--- OUTSIDE RECORDS SUMMARY | 2020-02-08 07:15 | XMS REPORT ---
Author Author Emilee MAY Organization [facility] Address [address] [place] [address] Care Team Providers Care Advertising Agency Manager Name Role Phone LALOJEZALBANIA Unavailable PROBLEMS Type Condition ICD9-CM Code [id number] Code Onset Dates Condition S tatus SNOMED Code Problem Mixed hyperlipidemia E78.2 Active 990502992 Problem Fatty liver K76.0 Active 63172464 7 Problem Obstructive sleep apnea G47.33 Active 35774114 Problem Allergic rhinitis, unspecified J30.9 Active 29075894 Problem Essential hypertension I10 Active 40711058 Problem History of renal cell cancer Z85.528 A ctive 976101806 Problem Prediabetes R73.09 Active 8968450 Problem Diastolic dysfunction I51.9 Active 5163810 Problem Body mass index (bmi) 50-59.9 , adult Z68.43 Active 378899782 Problem Paresthesia of both hands R20.2 Acti ve 081650873 Problem Habitual self-excoriation F42.4 Acti ve 254552391 Problem BMI 50.0-59.9, adult Z68.43 Active 807863663 Problem Restrictive lung disease J98.4 Activ e 82588416 Problem Splenic artery aneurysm I72.8 Active 56390102 Problem Liver mass R16.0 Active 415147747 Problem Generalized anxiety disorder F41.1 A ctive 09256799 Problem Major depressive disorder, recurrent episode, mild degree F33.0 Active 540684578 Problem Excoriation, neurotic L98.1 Active 58751446 Problem History of tobacco use Z87.891 Active 8491548188368 Problem Primary osteoarthritis involving multiple joints M 15.0 Active 765601599 Problem Isolated proteinuria without specific morphologic lesion R80.0 Active 84801310 Problem 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 Active 050138373 Problem Pulmonary emphysema, unspecified emphysema type J4 3.9 Active 94026807 Problem Chronic prescription opiate use Z79.899 Active 118022147 Problem Tobacco use Z72.0 Active 07581521 0 Problem Bilateral carpal tunnel syndrome G56.03 Active 13581661 Problem Chronic prescription benzodiazepine use Z79.899 Active 089832293 ALLERGIES No Information ENCOUNTERS Encounter Location Date Diagnosis [facility] [address] [facility] [id number] [address] [place] [id number] 07 May, 2018 [facility] [address] [facility] [id number] [address] [place] [phone] 15 Apr, 2018 [facility] [address] [facility] [id number] [address] [place] [id number] 20 Mar, 2018 [place] [address] [facility] [id number] [address] [place] [phone] 12 Mar, 2018 Generalized anxiety disorder F41.1 [facility] [address] [facility] [id number] [address] [place] [address] Mar, [facility] [address] [place] [id number] [address] [place] [phone] 14 Feb, 2018 Generalized anxiety disorder F41.1 ; Major depressive disorder, recurrent episode, mild degree F33.0 and Habitual self-excoriation F42.4 [place] [address] [place] [id number] [address] [place] [address] 13 Feb, 2018 Generalized anxiety disorder F41.1 and Major depressive disorder, recurrent episode, mild degree F33.0 [facility] [address] [place] [id number] [address] [place] [address] Feb, [place] [address] [place] [id number] [address] [place] [id number] 10 Feb, 2018 Restrictive lung disease J98 .4 ; Pulmonary emphysema, unspecified emphysema type J43.9 and Body mass index (bmi) 50-59.9 , adult Z68.43 [facility] [address] [facility] [id number] [address] [place] [phone] 08 Feb, 2018 Generalized anxiety disorder F41.1 ; Major depressive disorder, recurrent episode, mild degree F33.0 and Habitual self-excoriation F42.4 [facility] [address] [facility] [id number] [address] [place] [id number] Feb, [facility] [address] [facility] [id number] [address] [place] [phone] Jan, [facility] [address] [facility] [id number] [address] [place] [phone] Jan, Pulmonary emphysema, unspeci fied emphysema type J43.9 [facility] [address] [id number] [address] [place] [id number] Jan, Dental examination Z01.20 an d Dental caries K02.9 [facility] [address] [facility] [id number] [address] [place] [phone] Jan, Generalized anxiety disorder F41.1 and Major depressive disorder, recurrent episode, mild degree F33.0 [facility] [address] [place] [id number] [address] [place] [phone] Jan, [facility] [address] [facility] [id number] [address] [place] [phone] Jan, Generalized anxiety disorder F41.1 [facility] [address] [facility] [id number] [address] [place] [phone] Jan, Oral abscess K12.2 and BMI 5 0.0-59.9, adult Z68.43 [facility] [address] [place] [id number] [address] [place] [phone] Dec, BMI 50.0-59.9, adult Z68.43 and Weight loss counseling, encounter for Z71.3 [facility] [address] [facility] [id number] [address] [place] [phone] Dec, [facility] [address] [facility] [id number] [address] [place] [address] Dec, [facility] [address] [facility] [id number] [address] [place] [phone] November, [facility] [address] [place] [id number] [address] [place] [address] November, [facility] [address] [address] November, Pulmonary emphysema, unspeci fied emphysema type J43.9 ; Restrictive lung disease J98.4 ; BMI 50.0-59.9, adult Z68.43 ; History of renal cell cancer Z85.528 ; Essential hypertension I10 ; Mixed hyperlipidemia E78.2 and Fatty liver K76.0 [facility] [address] [place] [id number] [address] [place] [address] November, Generalized anxiety disorder F41.1 [place] [address] [address] November, Generalized anxiety disorder F41.1 and Major depressive disorder, recurrent episode, mild degree F33.0 [place] [address] [address] November, Generalized anxiety disorder F41.1 ; Major depressive disorder, recurrent episode, mild degree F33.0 and Habitual self-excoriation F42.4 [place] [address] [address] November, [facility] [address] [place] [id number] [place] [address] Oct, Generalized anxiety disorder F41.1 [place] [address] [address] Oct, [place] [address] [place] [id number] [address] [place] [address] Oct, Influenza-like illness R69 [place] [address] [address] Sep, Influenza-like illness R69 [place] [address] [place] [id number] [address] [place] [address] Sep, Generalized anxiety disorder F41.1 [place] [address] [place] [id number] [address] [place] [address] Sep, [facility] [address] [address] Aug, [facility] [address] [facility] [id number] [address] [place] [phone] Aug, [facility] [address] [address] Aug, Generalized anxiety disorder F41.1 [facility] [address] [facility] [id number] [address] [place] [address] Aug, Influenza-like illness R69 a nd BMI 50.0-59.9, adult Z68.43 [facility] [address] [address] Jul, Fatty liver K76.0 ; Restrict jean-paul lung disease J98.4 ; Diastolic dysfunction I51.9 ; Body mass index (bmi) 50-59.9 , adult Z68.43 and Chronic prescription opiate use Z79.899 [facility] [address] [address] Jul, Generalized anxiety disorder F41.1 [facility] [address] [place] [id number] [address] [place] [address] Jul, Generalized anxiety disorder F41.1 [facility] [address] [address] Jul, Primary osteoarthritis invol ving multiple joints M15.0 [facility] [address] [place] [id number] [address] [place] [address] Jun, Generalized anxiety disorder F41.1 [facility] [address] [place] [id number] [address] [place] [address] Jun, [facility] [address] [place] [id number] [address] [place] [address] Jun, Mixed hyperlipidemia E78.2 [place] [address] [facility] [id number] [address] [place] [address] Jun, Generalized anxiety disorder F41.1 [place] [address] [facility] [id number] [address] [place] [address] Jun, Generalized anxiety disorder F41.1 ; Major depressive disorder, recurrent episode, mild degree F33.0 and Habitual self-excoriation F42.4 [place] [address] [id number] [address] [place] [address] May, [place] [address] [facility] [id number] [address] [place] [address] May, Generalized anxiety disorder F41.1 [place] [address] [facility] [id number] [address] [place] [address] May, Generalized anxiety disorder F41.1 [place] [address] [place] [id number] [address] [place] [address] May, Primary osteoarthritis invol ving multiple joints M15.0 [place] [address] [facility] [id number] [address] [place] [address] Apr, Major depressive disorder, r ecurrent episode, mild degree F33.0 ; Generalized anxiety disorder F41.1 and Excoriation, neurotic L98.1 [place] [address] [facility] [id number] [address] [place] [address] Apr, Primary osteoarthritis invol ving multiple joints M15.0 [place] [address] [facility] [id number] [address] [place] [address] Apr, Essential hypertension I10 a nd Mixed hyperlipidemia E78.2 [place] [address] [facility] [id number] [address] [place] [address] Apr, Generalized anxiety disorder F41.1 ; Major depressive disorder, recurrent episode, mild degree F33.0 and Habitual self-excoriation F42.4 [place] [address] [facility] [id number] [address] [place] [address] Mar, Generalized anxiety disorder F41.1 ; Major depressive disorder, recurrent episode, mild degree F33.0 and Habitual self-excoriation F42.4 [facility] [address] [id number] [address] [place] [address] Mar, Skin lesion L98.9 [facility] [address] [id number] [address] [place] [phone] Mar, Primary osteoarthritis invol ving multiple joints M15.0 [facility] [address] [id number] [address] [place] [address] Mar, [facility] [address] [id number] [address] [place] [address] Mar, [place] [address] [facility] [id number] [address] [place] [address] Feb, Major depressive disorder, r ecurrent episode, mild degree F33.0 ; Generalized anxiety disorder F41.1 and Excoriation, neurotic L98.1 [place] [address] [id number] [address] [place] [address] Feb, Generalized anxiety disorder F41.1 [place] [address] [facility] [id number] [address] [place] [address] Feb, Primary osteoarthritis invol ving multiple joints M15.0 [facility] [address] [id number] [address] [place] [address] Jan, [facility] [address] [facility] [id number] [address] [place] [address] Jan, Essential hypertension I10 ; Splenic artery aneurysm I72.8 ; Liver mass R16.0 ; Restrictive lung disease J98.4 ; Primary osteoarthritis involving multiple joints M15.0 ; Mixed hyperlipidemia E78.2 ; Bilateral carpal tunnel syndrome G56.03 ; Body mass index (bmi) 50-59.9 , adult Z68.43 and History of tobacco use Z87.891 [place] [address] [facility] [id number] [address] [place] [address] Jan, Major depressive disorder, r ecurrent episode, mild degree F33.0 and Generalized anxiety disorder F41.1 [facility] [address] [id number] [address] [place] [address] Jan, [facility] [address] [id number] [address] [place] [address] Jan, Generalized anxiety disorder F41.1 and Major depressive disorder, recurrent episode, mild degree F33.0 [facility] [address] [id number] [address] [place] [address] Dec, Primary osteoarthritis invol ving multiple joints M15.0 [facility] [address] [id number] [address] [place] [address] Dec, Generalized anxiety disorder F41.1 [facility] [address] [id number] [address] [place] [address] Dec, [facility] [address] [id number] [address] [place] [address] Dec, Major depressive disorder, r ecurrent episode, mild degree F33.0 and Generalized anxiety disorder F41.1 [facility] [address] [id number] [address] [place] [address] Dec, Generalized anxiety disorder F41.1 and Major depressive disorder, recurrent episode, mild degree F33.0 [facility] [address] [id number] [address] [place] [address] November, Mild major depression F32.0 and Primary osteoarthritis involving multiple joints M15.0 [facility] [address] [id number] [address] [place] [address] November, Major depressive disorder, r ecurrent episode, mild degree F33.0 and Generalized anxiety disorder F41.1 [facility] [address] [id number] [address] [place] [address] November, Primary osteoarthritis invol ving multiple joints M15.0 ; Essential hypertension I10 ; Prediabetes R73.09 ; Mixed hyperlipidemia E78.2 ; Chronic prescription benzodiazepine use Z79.899 ; Chronic prescription opiate use Z79.899 ; Tobacco use Z72.0 ; Bilateral carpal tunnel syndrome G56.03 and Body mass index (bmi) 50-59.9 , adult Z68.43 [facility] [address] [facility] [id number] [address] [place] [address] November, Primary osteoarthritis invol ving multiple joints M15.0 and Mild major depression F32.0 [place] [id number] [place] [address] Oct, [place] [address] [address] Oct, Primary osteoarthritis invol ving multiple joints M15.0 ; Essential hypertension I10 ; Prediabetes R73.09 ; Chronic prescription benzodiazepine use Z79.899 ; Chronic prescription opiate use Z79.899 ; Tobacco use Z72.0 ; Mixed hyperlipidemia E78.2 ; Bilateral carpal tunnel syndrome G56.03 ; Body mass index (bmi) 50-59.9 , adult Z68.43 and Encounter for immunization Z23 [place] [address] [address] Oct, Major depressive disorder, r ecurrent episode, mild degree F33.0 and Generalized anxiety disorder F41.1 [place] [address] [place] [id number] [address] [place] [address] Oct, [place] [address] [facility] [id number] [address] [place] [address] Oct, [place] [address] [facility] [id number] [address] [place] [address] Sep, Mild major depression F32.0 [place] [address] [facility] [id number] [address] [place] [address] Sep, [place] [address] [facility] [id number] [address] [place] [address] Sep, Mild major depression F32.0 and Generalized anxiety disorder F41.1 [facility] [address] [facility] [id number] [address] [place] [address] Sep, Paresthesia of both hands R2 0.2 and Cervical radiculopathy M54.12 [facility] [address] [facility] [id number] [address] [place] [address] Sep, [facility] [address] [place] [id number] [place] [address] Sep, [facility] [address] [facility] [id number] [place] [address] Aug, Paresthesia of both hands R2 0.2 and Neck pain M54.2 [facility] [address] [place] [id number] [place] [address] Aug, [facility] [address] [place] [id number] [place] [address] Jul, Neck pain M54.2 and Paresthe eddie of both hands R20.2 [facility] [address] [address] Jul, Proteinuria, unspecified typ e R80.9 [place] [address] [address] Jul, Proteinuria, unspecified typ e R80.9 [place] [address] [address] Jul, [facility] [address] [address] Jul, Other specified transient ce rebral ischemias G45.8 [place] [address] [place] [id number] [place] [address] Jun, Diastolic dysfunction I51.9 [place] [address] [address] Jun, Diastolic dysfunction I51.9 [place] [address] [place] [address] [place] [address] Jun, Major depressive disorder, s david episode, unspecified F32.9 and Anxiety disorder, unspecified F41.9 [facility] [address] [place] [id number] [address] [place] [address] Jun, [facility] [address] [address] Jun, [facility] [address] [address] May, Moderate major depression F3 2.1 and Generalized anxiety disorder F41.1 [place] [address] [address] 16 May, 2016 Major depressive disorder, s david episode, unspecified F32.9 and Anxiety disorder, unspecified F41.9 [place] [address] [address] May, [place] [address] [address] 14 May, 2016 Liver enzyme elevation R74.8 [place] [address] [address] 14 May, 2016 Liver enzyme elevation R74.8 [place] [address] [address] 10 May, 2016 Shortness of breath on exert ion R06.02 ; Essential hypertension I10 ; Mixed hyperlipidemia E78.2 and Tobacco use Z72.0 [place] [address] [place] [id number] [address] [place] [address] May, [place] [address] [address] May, [facility] [address] [place] [id number] [address] [place] [address] 06 Apr, 2016 Anxiety F41.9 and Depression F32.9 [facility] [address] [id number] [address] [place] [address] Apr, [facility] [address] [id number] [address] [place] [address] Apr, [facility] [address] [id number] [address] [place] [address] Mar, Depression F32.9 and Anxiety F41.9 [facility] [address] [id number] [address] [place] [address] Mar, Anxiety F41.9 and Depression F32.9 [facility] [address] [id number] [address] [place] [address] Mar, Well woman exam (no gynecolo gical exam) Z00.00 [facility] [address] [id number] [address] [place] [address] Mar, [facility] [address] [id number] [address] [place] [address] Mar, [facility] [address] [id number] [address] [id number] Feb, Dental caries K02.9 [facility] [address] [id number] [address] [place] [phone] Feb, [facility] [address] [id number] [address] [place] [address] Feb, Anxiety F41.9 and Depression F32.9 [facility] [address] [id number] [address] [place] [id number] Feb, Dental examination Z01.20 [facility] [address] [id number] [address] [place] [address] Feb, [facility] [address] [id number] [address] [place] [address] Feb, [facility] [address] [id number] [address] [place] [address] Feb, Anxiety F41.9 and Depression F32.9 [facility] [address] [id number] [address] [place] [address] Jan, Severe episode of recurrent major depressive disorder, without psychotic features F33.2 and Anxiety disorder, unspecified F41.9 [facility] [address] [id number] [address] [place] [address] Jan, [facility] [address] [id number] [address] [place] [address] Dec, [facility] [address] [id number] [address] [place] [phone] Dec, Anxiety F41.9 and Depression F32.9 [place] [address] [id number] [address] [place] [phone] 24 Dec, 2015 Other specified transient ce rebral ischemias G45.8 and Nocturnal hypoxia G47.34 [place] [address] [id number] [address] [place] [address] 18 Dec, 2015 [facility] [address] [id number] [address] [place] [phone] 17 Dec, 2015 Other specified transient ce rebral ischemias G45.8 [facility] [address] [id number] [address] [place] [address] 16 Dec, 2015 Severe episode of recurrent major depressive disorder, without psychotic features F33.2 and Anxiety disorder, unspecified F41.9 [facility] [address] [id number] [address] [place] [address] Dec, [facility] [address] [id number] [address] [place] [address] 13 Dec, 2015 Anxiety F41.9 and Depression F32.9 [facility] [address] [id number] [address] [place] [phone] 07 Dec, 2015 Anxiety F41.9 and Depression F32.9 [facility] [address] [id number] [address] [place] [id number] Dec, [facility] [id number] [place] [id number] November, Anxiety F41.9 and Depression F32.9 [place] [address] [place] [id number] [address] [place] [phone] November, Severe episode of recurrent major depressive disorder, without psychotic features F33.2 [place] [address] [id number] November, Mixed hyperlipidemia E78.2 [place] [address] [place] [id number] [address] [place] [id number] November, Anxiety F41.9 and Depression F32.9 [place] [address] [place] [id number] [place] [phone] November, Prediabetes R73.09 ; Essenti al hypertension I10 ; Anxiety F41.9 ; Depression F32.9 ; Gastroesophageal reflux disease, esophagitis presence not specified K21.9 ; Primary osteoarthritis involving multiple joints M15.0 ; History of renal cell cancer Z85.528 ; Postnasal drip R09.82 ; Allergic rhinitis, unspecified J30.9 and Tobacco use Z72.0 [place] [address] [place] [id number] [address] [place] [id number] Oct, Anxiety F41.9 and Depression F32.9 [place] [id number] [place] [id number] Oct, [place] [address] [place] [id number] [address] [place] [phone] Oct, [place] [address] [place] [id number] [address] [place] [id number] 14 Sep, 2015 Splenic artery aneurysm I72. 8 [place] [address] [place] [id number] [address] [place] [phone] 10 Sep, 2015 Depression F32.9 ; Anxiety F 41.9 ; Chronic prescription benzodiazepine use Z79.899 and Splenic artery aneurysm I72.8 [facility] [address] [facility] [id number] [address] [place] [phone] 10 Sep, 2015 Depression F32.9 and Anxiety F41.9 [facility] [address] [place] [id number] [address] [place] [phone] Sep, [facility] [address] [place] [id number] [address] [place] [id number] Aug, Dehydration E86.0 ; Diarrhea R19.7 ; Nausea R11.0 and Generalized abdominal pain R10.84 [facility] [address] [place] [id number] [address] [place] [id number] Aug, [facility] [address] [place] [id number] [place] [id number] Jul, Depression F32.9 [facility] [address] [place] [id number] [address] [place] [id number] Jul, [facility] [address] [place] [id number] [address] [place] [id number] Jul, Anxiety F41.9 and Depression F32.9 [facility] [address] [place] [id number] [address] [place] [id number] Jul, [facility] [address] [place] [id number] [address] [place] [phone] Jun, Epigastric pain R10.13 [facility] [address] [place] [id number] [address] [place] [phone] Jun, [facility] [address] [place] [id number] [address] [place] [id number] Jun, [facility] [address] [place] [id number] [address] [place] [phone] May, [facility] [address] [place] [id number] [address] [place] [phone] May, [facility] [address] [place] [id number] [address] [place] [id number] Apr, [facility] [address] [id number] [address] [place] [id number] Mar, Anxiety state, unspecified 3 00.00 ; Depression 311 ; Prediabetes 790.29 ; Generalized osteoarthrosis, involving multiple sites 715.09 and Hypertension 401.9 [facility] [address] [id number] [address] [place] [id number] Mar, [facility] [address] [id number] [address] [place] [phone] Feb, [facility] [address] [id number] [address] [place] [id number] Jan, [facility] [address] [id number] [address] [place] [id number] Jan, [facility] [address] [id number] [address] [place] [id number] Jan, Generalized osteoarthrosis, involving multiple sites 715.09 [facility] [address] [id number] [address] [place] [id number] Jan, Hx of renal cell cancer V10. 52 [facility] [address] [id number] [address] [place] [id number] Dec, Generalized osteoarthrosis, involving multiple sites 715.09 and Hx of renal cell cancer V10.52 [facility] [address] [id number] [address] [place] [id number] Dec, [facility] [address] [id number] [address] [place] [phone] Dec, [facility] [address] [id number] [address] [place] [id number] November, [facility] [address] [id number] [address] [place] [phone] Oct, [facility] [address] [id number] [address] [place] [id number] Oct, [facility] [address] [facility] [id number] [address] [place] [id number] Sep, [facility] [address] [facility] [id number] [address] [place] [id number] Sep, [facility] [address] [facility] [id number] [address] [place] [phone] Sep, [facility] [address] [facility] [id number] [address] [place] [id number] Sep, [facility] [address] [facility] [id number] [address] [place] [id number] Aug, [facility] [address] [facility] [id number] [address] [place] [id number] Aug, IMMUNIZATIONS No Known Immunizations SOCIAL HISTORY Never Assessed REASON FOR VISIT REFERRAL PLAN OF CARE VITAL SIGNS MEDICATIONS Unknown [...]
--- OUTSIDE RECORDS SUMMARY | 2020-02-08 07:16 | XMS REPORT ---
Author Author Emilee MAY Organization [facility] Address [address] [place] [address] Care Team Providers Care Director Perioperative Name Role Phone LALOJEZALBANIA Unavailable PROBLEMS Type Condition ICD9-CM Code IZF98-TY Code Onset Dates Condition S tatus SNOMED Code Problem Mixed hyperlipidemia E78.2 Active 316889233 Problem Fatty liver K76.0 Active 43773633 7 Problem Obstructive sleep apnea G47.33 Active 90691095 Problem Allergic rhinitis, unspecified J30.9 Active 75346397 Problem Essential hypertension I10 Active 12277870 Problem History of renal cell cancer Z85.528 A ctive 437519965 Problem Prediabetes R73.09 Active 1450519 Problem Diastolic dysfunction I51.9 Active 4879318 Problem Body mass index (bmi) 50-59.9 , adult Z68.43 Active 309498782 Problem Paresthesia of both hands R20.2 Acti ve 400412293 Problem 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 Acti ve 804777917 Problem BMI 50.0-59.9, adult Z68.43 Active 006715535 Problem Restrictive lung disease J98.4 Activ e 41693310 Problem Splenic artery aneurysm I72.8 Active 06350275 Problem Liver mass R16.0 Active 660145355 Problem Generalized anxiety disorder F41.1 A ctive 08804792 Problem Major depressive disorder, recurrent episode, mild degree F33.0 Active 467611901 Problem Excoriation, neurotic L98.1 Active 04436562 Problem History of tobacco use Z87.891 Active 6895933905252 Problem Primary osteoarthritis involving multiple joints M 15.0 Active 342869086 Problem Isolated proteinuria without specific morphologic lesion R80.0 Active 76247515 Problem 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 Active 749710229 Problem Pulmonary emphysema, unspecified emphysema type J4 3.9 Active 77649764 Problem Chronic prescription opiate use Z79.899 Active 563262322 Problem Tobacco use Z72.0 Active 04493504 0 Problem Bilateral carpal tunnel syndrome G56.03 Active 29709521 Problem Chronic prescription benzodiazepine use Z79.899 Active 224227024 ALLERGIES No Information ENCOUNTERS Encounter Location Date Diagnosis [facility] [address] [facility] [id number] [address] [place] [address] 07 May, 2018 [facility] [address] [facility] [id number] [address] [place] [address] 15 Apr, 2018 [facility] [address] [facility] [id number] [address] [place] [address] Mar, [place] [address] [facility] [id number] [place] [address] 14 Feb, 2018 Generalized anxiety disorder F41.1 ; Major depressive disorder, recurrent episode, mild degree F33.0 and Habitual self-excoriation F42.4 [place] [address] [facility] [id number] [address] [place] [address] Feb, Generalized anxiety disorder F41.1 and Major depressive disorder, recurrent episode, mild degree F33.0 [facility] [address] [facility] [id number] [address] [place] [address] Feb, [facility] [address] [place] [id number] [address] [place] [address] Feb, Restrictive lung disease J98 .4 ; Pulmonary emphysema, unspecified emphysema type J43.9 and Body mass index (bmi) 50-59.9 , adult Z68.43 [facility] [address] [place] [id number] [address] [place] [address] 08 Feb, 2018 Generalized anxiety disorder F41.1 ; Major depressive disorder, recurrent episode, mild degree F33.0 and Habitual self-excoriation F42.4 [facility] [address] [facility] [id number] [address] [place] [address] Feb, [facility] [address] [facility] [id number] [address] [place] [address] Jan, [facility] [address] [facility] [id number] [address] [place] [address] Jan, Pulmonary emphysema, unspeci fied emphysema type J43.9 [facility] [address] [id number] [address] [place] [id number] Jan, Dental examination Z01.20 an d Dental caries K02.9 [facility] [address] [facility] [id number] [address] [place] [address] Jan, Generalized anxiety disorder F41.1 and Major depressive disorder, recurrent episode, mild degree F33.0 [facility] [address] [facility] [id number] [address] [place] [address] Jan, [facility] [address] [facility] [id number] [address] [place] [address] Jan, Generalized anxiety disorder F41.1 [facility] [address] [facility] [id number] [address] [place] [address] Jan, Oral abscess K12.2 and BMI 5 0.0-59.9, adult Z68.43 [facility] [address] [facility] [id number] [address] [place] [address] Dec, BMI 50.0-59.9, adult Z68.43 and Weight loss counseling, encounter for Z71.3 [facility] [address] [facility] [id number] [address] [place] [address] Dec, [facility] [address] [facility] [id number] [address] [place] [address] Dec, [facility] [address] [facility] [id number] [address] [place] [address] November, [facility] [address] [facility] [id number] [address] [place] [address] November, [facility] [address] [facility] [id number] [address] [place] [address] November, Pulmonary emphysema, unspeci fied emphysema type J43.9 ; Restrictive lung disease J98.4 ; BMI 50.0-59.9, adult Z68.43 ; History of renal cell cancer Z85.528 ; Essential hypertension I10 ; Mixed hyperlipidemia E78.2 and Fatty liver K76.0 [facility] [address] [facility] [id number] [address] [place] [address] November, Generalized anxiety disorder F41.1 [facility] [address] [facility] [id number] [address] [place] [address] November, Generalized anxiety disorder F41.1 and Major depressive disorder, recurrent episode, mild degree F33.0 [facility] [address] [facility] [id number] [address] [place] [address] November, Generalized anxiety disorder F41.1 ; Major depressive disorder, recurrent episode, mild degree F33.0 and Habitual self-excoriation F42.4 [facility] [address] [facility] [id number] [address] [place] [address] November, [facility] [address] [facility] [id number] [address] [place] [address] Oct, Generalized anxiety disorder F41.1 [facility] [address] [facility] [id number] [address] [place] [address] Oct, [facility] [address] [facility] [id number] [address] [place] [address] Oct, Influenza-like illness R69 [facility] [address] [facility] [id number] [address] [place] [address] Sep, Influenza-like illness R69 [facility] [address] [facility] [id number] [address] [place] [address] Sep, Generalized anxiety disorder F41.1 [facility] [address] [facility] [id number] [address] [place] [address] Sep, [facility] [address] [place] [id number] [address] [place] [address] Aug, [facility] [id number] [place] [address] 07 Aug, 2017 [facility] [address] [address] Aug, Generalized anxiety disorder F41.1 [facility] [address] [facility] [id number] [address] [place] [address] Aug, Influenza-like illness R69 a nd BMI 50.0-59.9, adult Z68.43 [facility] [address] [place] [id number] [address] [place] [address] Jul, 2018 Fatty liver K76.0 ; Restrict jean-paul lung disease J98.4 ; Diastolic dysfunction I51.9 ; Body mass index (bmi) 50-59.9 , adult Z68.43 and Chronic prescription opiate use Z79.899 [facility] [address] [place] [id number] [address] [place] [address] Jul, Generalized anxiety disorder F41.1 [facility] [address] [place] [id number] [address] [place] [address] Jul, Generalized anxiety disorder F41.1 [facility] [address] [address] Jul, Primary osteoarthritis invol ving multiple joints M15.0 [facility] [address] [place] [id number] [address] [place] [address] Jun, Generalized anxiety disorder F41.1 [facility] [address] [place] [id number] [address] [place] [address] Jun, [facility] [address] [place] [id number] [address] [place] [address] Jun, Mixed hyperlipidemia E78.2 [facility] [address] [place] [id number] [address] [place] [address] Jun, Generalized anxiety disorder F41.1 [facility] [address] [place] [id number] [address] [place] [address] Jun, Generalized anxiety disorder F41.1 ; Major depressive disorder, recurrent episode, mild degree F33.0 and Habitual self-excoriation F42.4 [facility] [address] [id number] [address] [place] [address] May, [facility] [address] [id number] [address] [place] [address] May, Generalized anxiety disorder F41.1 [facility] [address] [id number] [address] [place] [address] May, Generalized anxiety disorder F41.1 [facility] [address] [id number] [address] [place] [address] May, Primary osteoarthritis invol ving multiple joints M15.0 [facility] [address] [id number] [address] [place] [address] Apr, Major depressive disorder, r ecurrent episode, mild degree F33.0 ; Generalized anxiety disorder F41.1 and Excoriation, neurotic L98.1 [facility] [address] [id number] [address] [place] [address] Apr, Primary osteoarthritis invol ving multiple joints M15.0 [facility] [address] [id number] [address] [place] [address] Apr, Essential hypertension I10 a nd Mixed hyperlipidemia E78.2 [facility] [address] [id number] [address] [place] [address] Apr, Generalized anxiety disorder F41.1 ; Major depressive disorder, recurrent episode, mild degree F33.0 and Habitual self-excoriation F42.4 [facility] [address] [id number] [address] [place] [address] Mar, Generalized anxiety disorder F41.1 ; Major depressive disorder, recurrent episode, mild degree F33.0 and Habitual self-excoriation F42.4 [facility] [address] [id number] [address] [place] [address] Mar, Skin lesion L98.9 [facility] [address] [facility] [id number] [address] [place] [address] Mar, Primary osteoarthritis invol ving multiple joints M15.0 [facility] [address] [facility] [id number] [address] [place] [address] Mar, [facility] [address] [facility] [id number] [address] [place] [address] Mar, [facility] [address] [facility] [id number] [address] [place] [address] Feb, Major depressive disorder, r ecurrent episode, mild degree F33.0 ; Generalized anxiety disorder F41.1 and Excoriation, neurotic L98.1 [place] [address] [place] [id number] [address] [place] [address] Feb, Generalized anxiety disorder F41.1 [place] [address] [place] [id number] [address] [place] [address] Feb, Primary osteoarthritis invol ving multiple joints M15.0 [facility] [address] [facility] [id number] [address] [place] [address] Jan, [place] [address] [place] [id number] [address] [place] [address] Jan, Essential hypertension I10 ; Splenic artery aneurysm I72.8 ; Liver mass R16.0 ; Restrictive lung disease J98.4 ; Primary osteoarthritis involving multiple joints M15.0 ; Mixed hyperlipidemia E78.2 ; Bilateral carpal tunnel syndrome G56.03 ; Body mass index (bmi) 50-59.9 , adult Z68.43 and History of tobacco use Z87.891 [place] [address] [place] [id number] [address] [place] [address] Jan, Major depressive disorder, r ecurrent episode, mild degree F33.0 and Generalized anxiety disorder F41.1 [facility] [address] [place] [id number] [address] [place] [address] Jan, [place] [address] [facility] [id number] [address] [place] [address] Jan, Generalized anxiety disorder F41.1 and Major depressive disorder, recurrent episode, mild degree F33.0 [facility] [address] [facility] [id number] [address] [place] [address] Dec, Primary osteoarthritis invol ving multiple joints M15.0 [facility] [address] [facility] [id number] [address] [place] [address] Dec, Generalized anxiety disorder F41.1 [place] [address] [facility] [id number] [address] [place] [address] Dec, [place] [address] [facility] [id number] [address] [place] [address] Dec, Major depressive disorder, r ecurrent episode, mild degree F33.0 and Generalized anxiety disorder F41.1 [place] [address] [facility] [id number] [address] [place] [address] Dec, Generalized anxiety disorder F41.1 and Major depressive disorder, recurrent episode, mild degree F33.0 [place] [address] [facility] [id number] [address] [place] [address] November, Mild major depression F32.0 and Primary osteoarthritis involving multiple joints M15.0 [place] [address] [facility] [id number] [address] [place] [address] November, Major depressive disorder, r ecurrent episode, mild degree F33.0 and Generalized anxiety disorder F41.1 [place] [address] [facility] [id number] [address] [place] [address] November, Primary osteoarthritis invol ving multiple joints M15.0 ; Essential hypertension I10 ; Prediabetes R73.09 ; Mixed hyperlipidemia E78.2 ; Chronic prescription benzodiazepine use Z79.899 ; Chronic prescription opiate use Z79.899 ; Tobacco use Z72.0 ; Bilateral carpal tunnel syndrome G56.03 and Body mass index (bmi) 50-59.9 , adult Z68.43 [place] [id number] [facility] [id number] [address] [place] [address] November, Primary osteoarthritis invol ving multiple joints M15.0 and Mild major depression F32.0 [facility] [address] [facility] [id number] [address] [place] [address] Oct, [facility] [address] [place] [id number] [address] [place] [address] Oct, Primary osteoarthritis invol ving multiple joints M15.0 ; Essential hypertension I10 ; Prediabetes R73.09 ; Chronic prescription benzodiazepine use Z79.899 ; Chronic prescription opiate use Z79.899 ; Tobacco use Z72.0 ; Mixed hyperlipidemia E78.2 ; Bilateral carpal tunnel syndrome G56.03 ; Body mass index (bmi) 50-59.9 , adult Z68.43 and Encounter for immunization Z23 [facility] [address] [place] [id number] [address] [place] [address] Oct, Major depressive disorder, r ecurrent episode, mild degree F33.0 and Generalized anxiety disorder F41.1 [facility] [address] [facility] [id number] [address] [place] [address] Oct, [facility] [address] [facility] [id number] [address] [place] [address] Oct, [facility] [address] [facility] [id number] [address] [place] [address] Sep, Mild major depression F32.0 [facility] [address] [facility] [id number] [address] [place] [address] Sep, [facility] [address] [facility] [id number] [address] [place] [address] Sep, Mild major depression F32.0 and Generalized anxiety disorder F41.1 [facility] [address] [facility] [id number] [address] [place] [address] Sep, Paresthesia of both hands R2 0.2 and Cervical radiculopathy M54.12 [facility] [address] [place] [id number] [address] [place] [address] Sep, [facility] [address] [address] Sep, [facility] [address] [address] Aug, Paresthesia of both hands R2 0.2 and Neck pain M54.2 [facility] [address] [address] Aug, [facility] [address] [place] [id number] [place] [address] Jul, Neck pain M54.2 and Paresthe eddie of both hands R20.2 [place] [address] [place] [id number] [place] [address] Jul, Proteinuria, unspecified typ e R80.9 [place] [address] [address] Jul, Proteinuria, unspecified typ e R80.9 [place] [address] [address] Jul, [place] [address] [address] Jul, Other specified transient ce rebral ischemias G45.8 [place] [address] [address] Jun, Diastolic dysfunction I51.9 [place] [address] [address] Jun, Diastolic dysfunction I51.9 [place] [address] [address] Jun, Major depressive disorder, s david episode, unspecified F32.9 and Anxiety disorder, unspecified F41.9 [place] [address] [address] Jun, [facility] [address] [place] [id number] [address] [place] [address] Jun, [facility] [address] [place] [id number] [address] [place] [address] May, Moderate major depression F3 2.1 and Generalized anxiety disorder F41.1 [facility] [address] [place] [id number] [place] [address] 16 May, 2016 Major depressive disorder, s david episode, unspecified F32.9 and Anxiety disorder, unspecified F41.9 [facility] [address] [place] [id number] [place] [address] 15 May, 2016 [facility] [address] [place] [id number] [place] [address] 14 May, 2016 Liver enzyme elevation R74.8 [facility] [address] [address] May, Liver enzyme elevation R74.8 [facility] [address] [place] [id number] [place] [address] 10 May, 2016 Shortness of breath on exert ion R06.02 ; Essential hypertension I10 ; Mixed hyperlipidemia E78.2 and Tobacco use Z72.0 [facility] [address] [place] [id number] [address] [place] [address] May, [facility] [address] [place] [id number] [address] [place] [address] May, [facility] [address] [place] [id number] [address] [place] [address] Apr, Anxiety F41.9 and Depression F32.9 [facility] [address] [place] [id number] [address] [place] [address] Apr, [facility] [address] [place] [id number] [address] [place] [address] Apr, [facility] [address] [place] [id number] [address] [place] [address] 22 Mar, 2016 Depression F32.9 and Anxiety F41.9 [facility] [address] [id number] [address] [place] [address] 08 Mar, 2016 Anxiety F41.9 and Depression F32.9 [facility] [address] [id number] [address] [place] [address] 06 Mar, 2016 Well woman exam (no gynecolo gical exam) Z00.00 [facility] [address] [id number] [address] [place] [address] Mar, [facility] [address] [id number] [address] [place] [address] Mar, [facility] [address] [id number] [address] [place] [id number] Feb, Dental caries K02.9 [facility] [address] [id number] [address] [place] [address] Feb, [facility] [address] [id number] [address] [place] [address] Feb, Anxiety F41.9 and Depression F32.9 [facility] [address] [id number] [address] [place] [id number] Feb, Dental examination Z01.20 [facility] [address] [id number] [address] [place] [address] Feb, [facility] [address] [id number] [address] [place] [address] Feb, [facility] [address] [id number] [address] [place] [phone] Feb, Anxiety F41.9 and Depression F32.9 [facility] [address] [id number] [address] [place] [phone] Jan, Severe episode of recurrent major depressive disorder, without psychotic features F33.2 and Anxiety disorder, unspecified F41.9 [facility] [address] [id number] [address] [place] [phone] Jan, [facility] [address] [id number] [address] [place] [phone] Dec, [facility] [address] [id number] [address] [place] [phone] Dec, Anxiety F41.9 and Depression F32.9 [facility] [address] [id number] [address] [place] [phone] 24 Dec, 2015 Other specified transient ce rebral ischemias G45.8 and Nocturnal hypoxia G47.34 [facility] [address] [id number] [address] [place] [phone] 18 Dec, 2015 [facility] [address] [id number] [address] [place] [phone] 17 Dec, 2015 Other specified transient ce rebral ischemias G45.8 [facility] [address] [id number] [address] [place] [phone] 16 Dec, 2015 Severe episode of recurrent major depressive disorder, without psychotic features F33.2 and Anxiety disorder, unspecified F41.9 [facility] [address] [id number] [address] [place] [phone] Dec, [facility] [address] [id number] [address] [place] [phone] Dec, Anxiety F41.9 and Depression F32.9 [facility] [address] [id number] [address] [place] [phone] 07 Dec, 2015 Anxiety F41.9 and Depression F32.9 [facility] [address] [id number] [address] [place] [phone] Dec, [facility] [address] [id number] [address] [place] [phone] November, Anxiety F41.9 and Depression F32.9 [facility] [address] [facility] [id number] [address] [place] [phone] November, Severe episode of recurrent major depressive disorder, without psychotic features F33.2 [place] [address] [address] November, Mixed hyperlipidemia E78.2 [place] [address] [address] November, Anxiety F41.9 and Depression F32.9 [place] [address] [address] 05 Nov, 2015 Prediabetes R73.09 ; Essenti al hypertension I10 ; Anxiety F41.9 ; Depression F32.9 ; Gastroesophageal reflux disease, esophagitis presence not specified K21.9 ; Primary osteoarthritis involving multiple joints M15.0 ; History of renal cell cancer Z85.528 ; Postnasal drip R09.82 ; Allergic rhinitis, unspecified J30.9 and Tobacco use Z72.0 [place] [address] [address] Oct, Anxiety F41.9 and Depression F32.9 [place] [address] [address] 07 Oct, 2015 [place] [address] [address] Oct, [place] [address] [address] 14 Sep, 2015 Splenic artery aneurysm I72. 8 [place] [address] [address] 10 Sep, 2015 Depression F32.9 ; Anxiety F 41.9 ; Chronic prescription benzodiazepine use Z79.899 and Splenic artery aneurysm I72.8 [place] [address] [address] 10 Sep, 2015 Depression F32.9 and Anxiety F41.9 [place] [address] [address] Sep, [facility] [address] [place] [id number] [address] [place] [address] 18 Aug, 2015 Dehydration E86.0 ; Diarrhea R19.7 ; Nausea R11.0 and Generalized abdominal pain R10.84 [facility] [address] [place] [id number] [address] [place] [address] Aug, [facility] [address] [place] [id number] [place] [address] Jul, Depression F32.9 [facility] [address] [place] [id number] [place] [address] Jul, [facility] [address] [address] Jul, Anxiety F41.9 and Depression F32.9 [facility] [address] [address] Jul, [facility] [address] [place] [id number] [address] [place] [address] Jun, Epigastric pain R10.13 [facility] [address] [place] [id number] [address] [place] [address] Jun, [facility] [address] [place] [id number] [address] [place] [address] Jun, [facility] [address] [place] [id number] [address] [place] [address] May, [facility] [address] [place] [id number] [address] [place] [address] May, [facility] [address] [address] Apr, [facility] [address] [place] [id number] [address] [place] [address] Mar, Anxiety state, unspecified 3 00.00 ; Depression 311 ; Prediabetes 790.29 ; Generalized osteoarthrosis, involving multiple sites 715.09 and Hypertension 401.9 [facility] [address] [id number] [address] [place] [address], [place] [address] Mar, [facility] [address] [id number] [address] [place] [address] Feb, [facility] [address] [id number] [address] [place] [address] Jan, [facility] [address] [id number] [address] [place] [address] Jan, [facility] [address] [id number] [address] [place] [address] Jan, Generalized osteoarthrosis, involving multiple sites 715.09 [facility] [address] [id number] [address] [place] [address] Jan, Hx of renal cell cancer V10. 52 [facility] [address] [id number] [address] [place] [address] Dec, Generalized osteoarthrosis, involving multiple sites 715.09 and Hx of renal cell cancer V10.52 [facility] [address] [id number] [address] [place] [address] Dec, [facility] [address] [id number] [address] [place] [address] Dec, [facility] [address] [id number] [address] [place] [address] November, [facility] [address] [id number] [address] [place] [address] Oct, [facility] [address] [id number] [address] [place] [address] Oct, [facility] [address] [id number] [address] [place] [address] Sep, [facility] [address] [id number] [address] [place] [address] Sep, [facility] [address] [facility] [id number] [address] [place] [address] Sep, [facility] [address] [facility] [id number] [address] [place] [address] Sep, [facility] [address] [facility] [id number] [address] [place] [address] Aug, [facility] [address] [facility] [id number] [address] [place] [address] Aug, IMMUNIZATIONS No Known Immunizations SOCIAL HISTORY Never Assessed REASON FOR VISIT Controlled Med Refill PLAN OF CARE VITAL SIGNS MEDICATIONS Medication Instructions Dosage Frequency Start Date End Date Duration S tatus Hydrocodone-Acetaminophen 5-325 MG Orally 2 times a day as n eeded for pain take 1 tablet Jan, 28 Active RESULTS No Results PROCEDURES No [...]
--- OUTSIDE RECORDS SUMMARY | 2020-02-08 07:16 | XMS REPORT ---
Author Author Emilee CASSIDY Organization [facility] [place] Address [address] [place] [address] Care Team Providers Care Cv Tech Name Role Phone LOVELY CASSIDY Unavailable PROBLEMS Type Condition ICD9-CM Code [id number] Code Onset Dates Condition S tatus SNOMED Code Problem Mixed hyperlipidemia E78.2 Active 848306791 Problem Fatty liver K76.0 Active 47540471 7 Problem Obstructive sleep apnea G47.33 Active 97894304 Problem Allergic rhinitis, unspecified J30.9 Active 06109160 Problem Essential hypertension I10 Active 83082429 Problem History of renal cell cancer Z85.528 A ctive 467329997 Problem Prediabetes R73.09 Active 9974747 Problem Diastolic dysfunction I51.9 Active 7626867 Problem Body mass index (bmi) 50-59.9 , adult Z68.43 Active 208946594 Problem Paresthesia of both hands R20.2 Acti ve 748457682 Problem Habitual self-excoriation F42.4 Acti ve 737414492 Problem BMI 50.0-59.9, adult Z68.43 Active 987526171 Problem Restrictive lung disease J98.4 Activ e 59868142 Problem Splenic artery aneurysm I72.8 Active 25421917 Problem Liver mass R16.0 Active 067750533 Problem Generalized anxiety disorder F41.1 A ctive 92538684 Problem Major depressive disorder, recurrent episode, mild degree F33.0 Active 961898927 Problem Excoriation, neurotic L98.1 Active 47054997 Problem History of tobacco use Z87.891 Active 0392835834059 Problem Primary osteoarthritis involving multiple joints M 15.0 Active 770157927 Problem Isolated proteinuria without specific morphologic lesion R80.0 Active 98137570 Problem 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 Active 997551605 Problem Pulmonary emphysema, unspecified emphysema type J4 3.9 Active 42620602 Problem Chronic prescription opiate use Z79.899 Active 105140434 Problem Tobacco use Z72.0 Active 51238230 0 Problem Bilateral carpal tunnel syndrome G56.03 Active 67039114 Problem Chronic prescription benzodiazepine use Z79.899 Active 668338458 ALLERGIES No Information ENCOUNTERS Encounter Location Date Diagnosis [facility] [place] [address] [facility] [id number] [address] [place] [phone] 07 May, 2018 [facility] [place] [address] [facility] [id number] [address] [place] [phone] 15 Apr, 2018 [facility] [place] [address] [facility] [id number] [address] [place] [phone] Mar, [place] [address] [facility] [id number] [place] [phone] Feb, Generalized anxiety disorder F41.1 ; Major depressive disorder, recurrent episode, mild degree F33.0 and Habitual self-excoriation F42.4 [place] [address] [place] [id number] [place] [phone] Feb, Generalized anxiety disorder F41.1 and Major depressive disorder, recurrent episode, mild degree F33.0 [facility] [place] [address] [place] [id number] [address] [place] [phone] Feb, [place] [address] [place] [id number] [place] [phone] Feb, Restrictive lung disease J98 .4 ; Pulmonary emphysema, unspecified emphysema type J43.9 and Body mass index (bmi) 50-59.9 , adult Z68.43 [facility] [place] [address] [place] [id number] [address] [place] [phone] Feb, Generalized anxiety disorder F41.1 ; Major depressive disorder, recurrent episode, mild degree F33.0 and Habitual self-excoriation F42.4 [place] [address] [place] [id number] [address] [place] [phone] Feb, [facility] [place] [address] [place] [id number] [address] [place] [phone] Jan, [facility] [place] [address] [facility] [id number] [address] [place] [phone] Jan, Pulmonary emphysema, unspeci fied emphysema type J43.9 [facility] [address] [id number] [address] [place] [id number] Jan, Dental examination Z01.20 an d Dental caries K02.9 [facility] [place] [address] [facility] [id number] [address] [place] [phone] Jan, Generalized anxiety disorder F41.1 and Major depressive disorder, recurrent episode, mild degree F33.0 [facility] [place] [address] [facility] [id number] [address] [place] [phone] Jan, [facility] [place] [address] [facility] [id number] [address] [place] [phone] Jan, Generalized anxiety disorder F41.1 [facility] [address] [facility] [id number] [address] [place] [phone] Jan, Oral abscess K12.2 and BMI 5 0.0-59.9, adult Z68.43 [facility] [place] [address] [facility] [id number] [address] [place] [phone] Dec, BMI 50.0-59.9, adult Z68.43 and Weight loss counseling, encounter for Z71.3 [facility] [place] [address] [facility] [id number] [address] [place] [phone] Dec, [facility] [place] [address] [facility] [id number] [address] [place] [phone] Dec, [facility] [place] [address] [facility] [id number] [address] [place] [phone] November, [facility] [place] [address] [place] [id number] [address] [place] [phone] November, [facility] [place] [address] [facility] [id number] [address] [place] [phone] November, Pulmonary emphysema, unspeci fied emphysema type J43.9 ; Restrictive lung disease J98.4 ; BMI 50.0-59.9, adult Z68.43 ; History of renal cell cancer Z85.528 ; Essential hypertension I10 ; Mixed hyperlipidemia E78.2 and Fatty liver K76.0 [facility] [place] [address] [facility] [id number] [address] [place] [phone] November, Generalized anxiety disorder F41.1 [facility] [place] [address] [facility] [id number] [address] [place] [phone] November, Generalized anxiety disorder F41.1 and Major depressive disorder, recurrent episode, mild degree F33.0 [facility] [place] [address] [facility] [id number] [address] [place] [phone] November, Generalized anxiety disorder F41.1 ; Major depressive disorder, recurrent episode, mild degree F33.0 and Habitual self-excoriation F42.4 [facility] [place] [address] [facility] [id number] [address] [place] [phone] November, [facility] [place] [address] [facility] [id number] [address] [place] [phone] Oct, Generalized anxiety disorder F41.1 [facility] [place] [address] [facility] [id number] [address] [place] [phone] Oct, [facility] [place] [address] [facility] [id number] [address] [place] [phone] Oct, Influenza-like illness R69 [facility] [place] [address] [facility] [id number] [address] [place] [phone] Sep, Influenza-like illness R69 [facility] [place] [address] [facility] [id number] [address] [place] [phone] Sep, Generalized anxiety disorder F41.1 [facility] [place] [address] [facility] [id number] [address] [place] [phone] Sep, [facility] [place] [address] [facility] [id number] [address] [place] [phone] Aug, [facility] [place] [address] [facility] [id number] [address] [place] [phone] Aug, [facility] [place] [address] [phone] Aug, Generalized anxiety disorder F41.1 [facility] [address] [place] [id number] [address] [place] [phone] Aug, Influenza-like illness R69 a nd BMI 50.0-59.9, adult Z68.43 [facility] [place] [address] [id number] Jul, Fatty liver K76.0 ; Restrict jean-paul lung disease J98.4 ; Diastolic dysfunction I51.9 ; Body mass index (bmi) 50-59.9 , adult Z68.43 and Chronic prescription opiate use Z79.899 [facility] [place] [address] [phone] Jul, Generalized anxiety disorder F41.1 [facility] [place] [address] [id number] Jul, Generalized anxiety disorder F41.1 [facility] [place] [address] [phone] Jul, Primary osteoarthritis invol ving multiple joints M15.0 [facility] [place] [address] [id number] Jun, Generalized anxiety disorder F41.1 [facility] [place] [address] [phone] Jun, [facility] [place] [address] [id number] Jun, Mixed hyperlipidemia E78.2 [facility] [place] [address] [id number] Jun, Generalized anxiety disorder F41.1 [facility] [place] [address] [id number] Jun, Generalized anxiety disorder F41.1 ; Major depressive disorder, recurrent episode, mild degree F33.0 and Habitual self-excoriation F42.4 [facility] [place] [address] [id number] [address] [place] [phone] May, [facility] [place] [address] [id number] [address] [place] [phone] May, Generalized anxiety disorder F41.1 [facility] [place] [address] [id number] [address] [place] [phone] May, Generalized anxiety disorder F41.1 [facility] [place] [address] [id number] [address] [place] [phone] May, Primary osteoarthritis invol ving multiple joints M15.0 [facility] [place] [address] [id number] [address] [place] [phone] Apr, Major depressive disorder, r ecurrent episode, mild degree F33.0 ; Generalized anxiety disorder F41.1 and Excoriation, neurotic L98.1 [facility] [place] [address] [id number] [address] [place] [phone] Apr, Primary osteoarthritis invol ving multiple joints M15.0 [facility] [place] [address] [id number] [address] [place] [phone] Apr, Essential hypertension I10 a nd Mixed hyperlipidemia E78.2 [facility] [place] [address] [id number] [address] [place] [phone] Apr, Generalized anxiety disorder F41.1 ; Major depressive disorder, recurrent episode, mild degree F33.0 and Habitual self-excoriation F42.4 [facility] [place] [address] [id number] [address] [place] [phone] Mar, Generalized anxiety disorder F41.1 ; Major depressive disorder, recurrent episode, mild degree F33.0 and Habitual self-excoriation F42.4 [facility] [place] [address] [id number] [address] [place] [phone] Mar, Skin lesion L98.9 [facility] [place] [address] [id number] [address] [place] [phone] 05 Mar, 2017 Primary osteoarthritis invol ving multiple joints M15.0 [facility] [place] [address] [id number] [address] [place] [phone] Mar, [facility] [place] [address] [facility] [id number] [address] [place] [phone] Mar, [facility] [place] [address] [facility] [id number] [address] [place] [phone] Feb, Major depressive disorder, r ecurrent episode, mild degree F33.0 ; Generalized anxiety disorder F41.1 and Excoriation, neurotic L98.1 [facility] [place] [address] [facility] [id number] [address] [place] [phone] Feb, Generalized anxiety disorder F41.1 [facility] [place] [address] [facility] [id number] [address] [place] [phone] Feb, Primary osteoarthritis invol ving multiple joints M15.0 [facility] [place] [address] [facility] [id number] [address] [place] [phone] Jan, [facility] [place] [address] [facility] [id number] [address] [place] [phone] Jan, Essential hypertension I10 ; Splenic artery aneurysm I72.8 ; Liver mass R16.0 ; Restrictive lung disease J98.4 ; Primary osteoarthritis involving multiple joints M15.0 ; Mixed hyperlipidemia E78.2 ; Bilateral carpal tunnel syndrome G56.03 ; Body mass index (bmi) 50-59.9 , adult Z68.43 and History of tobacco use Z87.891 [facility] [place] [address] [facility] [id number] [address] [place] [phone] Jan, Major depressive disorder, r ecurrent episode, mild degree F33.0 and Generalized anxiety disorder F41.1 [facility] [place] [address] [facility] [id number] [address] [place] [phone] Jan, [facility] [place] [address] [place] [id number] [address] [place] [phone] Jan, Generalized anxiety disorder F41.1 and Major depressive disorder, recurrent episode, mild degree F33.0 [facility] [place] [address] [facility] [id number] [address] [place] [phone] Dec, Primary osteoarthritis invol ving multiple joints M15.0 [place] [id number] [facility] [id number] [address] [place] [phone] Dec, Generalized anxiety disorder F41.1 [place] [address] [facility] [id number] [address] [place] [phone] Dec, [place] [address] [facility] [id number] [address] [place] [phone] Dec, Major depressive disorder, r ecurrent episode, mild degree F33.0 and Generalized anxiety disorder F41.1 [place] [address] [facility] [id number] [address] [place] [phone] Dec, Generalized anxiety disorder F41.1 and Major depressive disorder, recurrent episode, mild degree F33.0 [place] [address] [facility] [id number] [address] [place] [phone] November, Mild major depression F32.0 and Primary osteoarthritis involving multiple joints M15.0 [place] [id number] [facility] [id number] [address] [place] [phone] November, Major depressive disorder, r ecurrent episode, mild degree F33.0 and Generalized anxiety disorder F41.1 [place] [address] [facility] [id number] [address] [place] [address] November, Primary osteoarthritis invol ving multiple joints M15.0 ; Essential hypertension I10 ; Prediabetes R73.09 ; Mixed hyperlipidemia E78.2 ; Chronic prescription benzodiazepine use Z79.899 ; Chronic prescription opiate use Z79.899 ; Tobacco use Z72.0 ; Bilateral carpal tunnel syndrome G56.03 and Body mass index (bmi) 50-59.9 , adult Z68.43 [place] [id number] [facility] [id number] [address] [place] [phone] November, Primary osteoarthritis invol ving multiple joints M15.0 and Mild major depression F32.0 [facility] [place] [address] [facility] [id number] [address] [place] [phone] Oct, [facility] [place] [address] [place] [id number] [address] [place] [phone] Oct, Primary osteoarthritis invol ving multiple joints M15.0 ; Essential hypertension I10 ; Prediabetes R73.09 ; Chronic prescription benzodiazepine use Z79.899 ; Chronic prescription opiate use Z79.899 ; Tobacco use Z72.0 ; Mixed hyperlipidemia E78.2 ; Bilateral carpal tunnel syndrome G56.03 ; Body mass index (bmi) 50-59.9 , adult Z68.43 and Encounter for immunization Z23 [facility] [place] [address] [address] Oct, Major depressive disorder, r ecurrent episode, mild degree F33.0 and Generalized anxiety disorder F41.1 [facility] [place] [address] [place] [id number] [address] [place] [phone] Oct, [facility] [place] [address] [place] [id number] [address] [place] [phone] Oct, [facility] [place] [address] [place] [id number] [address] [place] [phone] Sep, Mild major depression F32.0 [facility] [place] [address] [facility] [id number] [address] [place] [phone] Sep, [facility] [place] [address] [place] [id number] [address] [place] [phone] Sep, Mild major depression F32.0 and Generalized anxiety disorder F41.1 [facility] [place] [address] [facility] [id number] [address] [place] [phone] Sep, Paresthesia of both hands R2 0.2 and Cervical radiculopathy M54.12 [facility] [place] [address] [place] [id number] [address] [place] [phone] Sep, [facility] [place] [address] [place] [id number] [address] [place] [phone] Sep, [facility] [place] [address] [place] [id number] [place] [phone] Aug, Paresthesia of both hands R2 0.2 and Neck pain M54.2 [facility] [place] [address] [place] [id number] [place] [phone] Aug, [facility] [place] [address] [place] [id number] [place] [phone] Jul, Neck pain M54.2 and Paresthe eddie of both hands R20.2 [place] [address] [place] [id number] [place] [phone] Jul, Proteinuria, unspecified typ e R80.9 [place] [address] [id number] Jul, Proteinuria, unspecified typ e R80.9 [place] [address] [address] Jul, [place] [address] [address] Jul, Other specified transient ce rebral ischemias G45.8 [place] [address] [address] Jun, Diastolic dysfunction I51.9 [place] [address] [place] [id number] [address] [place] [phone] Jun, Diastolic dysfunction I51.9 [place] [address] [address] Jun, Major depressive disorder, s david episode, unspecified F32.9 and Anxiety disorder, unspecified F41.9 [place] [address] [address] Jun, [facility] [place] [address] [phone] Jun, [facility] [place] [address] [address] May, Moderate major depression F3 2.1 and Generalized anxiety disorder F41.1 [facility] [place] [address] [address] 16 May, 2016 Major depressive disorder, s david episode, unspecified F32.9 and Anxiety disorder, unspecified F41.9 [facility] [place] [address] [address] 15 May, 2016 [facility] [place] [address] [address] 14 May, 2016 Liver enzyme elevation R74.8 [facility] [place] [address] [id number] 14 May, 2016 Liver enzyme elevation R74.8 [facility] [place] [address] [address] 10 May, 2016 Shortness of breath on exert ion R06.02 ; Essential hypertension I10 ; Mixed hyperlipidemia E78.2 and Tobacco use Z72.0 [facility] [place] [address] [address] May, [facility] [place] [address] [address] May, [facility] [place] [address] [id number] Apr, Anxiety F41.9 and Depression F32.9 [facility], [place] [address] [id number] Apr, [facility] [place] [address] [id number] Apr, [facility], [place] [address] [id number] 22 Mar, 2016 Depression F32.9 and Anxiety F41.9 [facility], [place] [address] [id number] [address] [place] [id number] 08 Mar, 2016 Anxiety F41.9 and Depression F32.9 [facility], [place] [address] [id number] [address] [place] [id number] 06 Mar, 2016 Well woman exam (no gynecolo gical exam) Z00.00 [facility], [place] [address] [id number] [address] [place] [phone] 02 Mar, 2016 [facility] [facility] [place], [facility] [address] [id number] [address] [place] [phone] Mar, [facility] [address] [id number] [address] [place] [id number] Feb, Dental caries K02.9 [facility] [place] [address] [id number] [address] [place] [phone] Feb, [facility] [place] [address] [id number] [address] [place] [phone] Feb, Anxiety F41.9 and Depression F32.9 [facility] [address] [id number] [address] [place] [phone] Feb, Dental examination Z01.20 [facility] [place] [address] [id number] [address] [place] [phone] Feb, [facility] [place] [address] [id number] [address] [place] [phone] Feb, [facility] [place] [address] [id number] [address] [place] [phone] Feb, Anxiety F41.9 and Depression F32.9 [facility] [place] [address] [id number] [address] [place] [phone] Jan, Severe episode of recurrent major depressive disorder, without psychotic features F33.2 and Anxiety disorder, unspecified F41.9 [facility] [place] [address] [id number] [address] [place] [phone] Jan, [facility] [place] [address] [id number] [address] [place] [phone] Dec, [facility] [place] [address] [id number] [address] [place] [phone] Dec, Anxiety F41.9 and Depression F32.9 [facility] [place] [address] [id number] [address] [place] [phone] Dec, Other specified transient ce rebral ischemias G45.8 and Nocturnal hypoxia G47.34 [place] [address] [id number] [address] [place] [phone] Dec, [place] [address] [id number] [address] [place] [phone] Dec, Other specified transient ce rebral ischemias G45.8 [facility] [place] [address] [facility] [id number] [address] [place] [phone] 16 Dec, 2015 Severe episode of recurrent major depressive disorder, without psychotic features F33.2 and Anxiety disorder, unspecified F41.9 [facility] [place] [address] [id number] [address] [place] [phone] Dec, [facility] [place] [address] [facility] [id number] [address] [place] [phone] Dec, Anxiety F41.9 and Depression F32.9 [facility] [place] [address] [id number] [address] [place] [phone] Dec, Anxiety F41.9 and Depression F32.9 [facility] [place] [address] [id number] [address] [place] [phone] Dec, [facility] [place] [address] [facility] [id number] [address] [place] [phone] November, Anxiety F41.9 and Depression F32.9 [facility] [place] [address] [facility] [id number] [address] [place] [phone] November, Severe episode of recurrent major depressive disorder, without psychotic features F33.2 [place] [address] [phone] November, Mixed hyperlipidemia E78.2 [place] [address] [phone] November, Anxiety F41.9 and Depression F32.9 [place] [address] [phone] November, Prediabetes R73.09 ; Essenti al hypertension I10 ; Anxiety F41.9 ; Depression F32.9 ; Gastroesophageal reflux disease, esophagitis presence not specified K21.9 ; Primary osteoarthritis involving multiple joints M15.0 ; History of renal cell cancer Z85.528 ; Postnasal drip R09.82 ; Allergic rhinitis, unspecified J30.9 and Tobacco use Z72.0 [place] [address] [id number] Oct, Anxiety F41.9 and Depression F32.9 [place] [address] [id number] 07 Oct, 2015 [place] [address] [phone] Oct, [place] [address] [id number] 14 Sep, 2015 Splenic artery aneurysm I72. 8 [place] [address] [id number] 10 Sep, 2015 Depression F32.9 ; Anxiety F 41.9 ; Chronic prescription benzodiazepine use Z79.899 and Splenic artery aneurysm I72.8 [place] [address] [phone] 10 Sep, 2015 Depression F32.9 and Anxiety F41.9 [place] [address] [id number] Sep, [facility] [place] [address] [phone] Aug, Dehydration E86.0 ; Diarrhea R19.7 ; Nausea R11.0 and Generalized abdominal pain R10.84 [facility] [place] [address] [place] [id number] [address] [place] [phone] Aug, [facility] [place] [address] [phone] Jul, Depression F32.9 [facility] [place] [address] [id number] Jul, [facility] [place] [address] [phone] Jul, Anxiety F41.9 and Depression F32.9 [facility] [place] [address] [phone] Jul, [facility] [place] [address] [id number] Jun, Epigastric pain R10.13 [facility] [place] [address] [id number] Jun, [facility] [place] [address] [id number] Jun, [facility] [place] [address] [id number] May, [facility] [place] [address] [id number] May, [facility] [place] [address] [id number] Apr, [facility] [place] [address] [place] [id number] [address] [place] [phone] Mar, Anxiety state, unspecified 3 00.00 ; Depression 311 ; Prediabetes 790.29 ; Generalized osteoarthrosis, involving multiple sites 715.09 and Hypertension 401.9 [facility] [place] [address] [id number] [address] [place] [address], [place] [phone] Mar, [facility] [place] [address] [id number] [address] [place] [phone] Feb, [facility] [place] [address] [id number] [address] [place] [phone] Jan, [facility] [place] [address] [id number] [address] [place] [phone] Jan, [facility] [place] [address] [id number] [address] [place] [phone] Jan, Generalized osteoarthrosis, involving multiple sites 715.09 [facility] [place] [address] [id number] [address] [place] [phone] Jan, Hx of renal cell cancer V10. 52 [facility] [place] [address] [id number] [address] [place] [phone] Dec, Generalized osteoarthrosis, involving multiple sites 715.09 and Hx of renal cell cancer V10.52 [facility] [place] [address] [id number] [address] [place] [phone] Dec, [facility] [place] [address] [id number] [address] [place] [phone] Dec, [facility] [place] [address] [id number] [address] [place] [phone] November, [facility] [place] [address] [id number] [address] [place] [phone] Oct, [facility] [place] [address] [id number] [address] [place] [phone] Oct, [facility] [place] [address] [id number] [address] [place] [phone] Sep, [facility] [place] [address] [id number] [address] [place] [phone] Sep, [facility] [place] [address] [facility] [id number] [address] [place] [phone] Sep, [facility] [place] [address] [facility] [id number] [address] [place] [phone] Sep, [facility] [place] [address] [facility] [id number] [address] [place] [phone] Aug, [facility] [place] [address] [facility] [id number] [address] [place] [phone] Aug, IMMUNIZATIONS No Known Immunizations SOCIAL HISTORY Never Assessed REASON FOR VISIT Follow-up Depression/Anxiety PLAN OF CARE Activity Details Follow Up 4 Weeks Reason: Follow-up VITAL SIGNS MEDICATIONS Unknown Medications RESULTS No Results PROCEDURES Procedure Date Ordered Result Body Site [facility] VISIT MENTAL HEALTH ESTAB PT February 05, 2018 Psychotherapy, patient &/family, 30 minutes, established pat ient February 05, 2018 INSTRUCTIONS MEDICATIONS ADMINISTERED No Known Medications [...]
--- OUTSIDE RECORDS SUMMARY | 2020-02-08 07:16 | XMS REPORT ---
Author Author Emilee TOUSSAINT Organization [facility] Address [address] [place] [address] Care Team Providers Care Central Office Repairer Name Role Phone MELVINA TOUSSAINT Unavailable PROBLEMS Type Condition ICD9-CM Code RJZ20-IU Code Onset Dates Condition S tatus SNOMED Code Problem Mixed hyperlipidemia E78.2 Active 392424735 Problem Fatty liver K76.0 Active 80399912 7 Problem Obstructive sleep apnea G47.33 Active 41897016 Problem Allergic rhinitis, unspecified J30.9 Active 85523198 Problem Essential hypertension I10 Active 05098538 Problem History of renal cell cancer Z85.528 A ctive 169218612 Problem Prediabetes R73.09 Active 1658019 Problem Diastolic dysfunction I51.9 Active 0963958 Problem Body mass index (bmi) 50-59.9 , adult Z68.43 Active 933919812 Problem Paresthesia of both hands R20.2 Acti ve 283569780 Problem Habitual self-excoriation 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 Acti ve 810583416 Problem BMI 50.0-59.9, adult Z68.43 Active 938215387 Problem Restrictive lung disease J98.4 Activ e 31729882 Problem Splenic artery aneurysm I72.8 Active 35287533 Problem Liver mass R16.0 Active 862627745 Problem Generalized anxiety disorder F41.1 A ctive 40156103 Problem Major depressive disorder, recurrent episode, mild degree F33.0 Active 688503140 Problem Excoriation, neurotic L98.1 Active 10261139 Problem History of tobacco use Z87.891 Active 6333045111308 Problem Primary osteoarthritis involving multiple joints M 15.0 Active 756607052 Problem Isolated proteinuria without specific morphologic lesion R80.0 Active 33113489 Problem 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 Active 960735403 Problem Pulmonary emphysema, unspecified emphysema type J4 3.9 Active 00850992 Problem Chronic prescription opiate use Z79.899 Active 862812111 Problem Tobacco use Z72.0 Active 54935346 0 Problem Bilateral carpal tunnel syndrome G56.03 Active 35382764 Problem Chronic prescription benzodiazepine use Z79.899 Active 930880925 ALLERGIES No Known Allergies ENCOUNTERS Encounter Location Date Diagnosis [facility] [address] [facility] [id number] [address] [place] [id number] 07 May, 2018 [facility] [address] [place] [id number] [address] [place] [id number] Mar, [facility] [address] [place] [id number] [address] [place] [phone] Feb, Generalized anxiety disorder F41.1 ; Major depressive disorder, recurrent episode, mild degree F33.0 and Habitual self-excoriation F42.4 [place] [address] [place] [id number] [address] [place] [phone] Feb, Generalized anxiety disorder F41.1 and Major depressive disorder, recurrent episode, mild degree F33.0 [place] [address] [place] [id number] [address] [place] [phone] Feb, [place] [address] [address] Feb, Restrictive lung disease J98 .4 ; Pulmonary emphysema, unspecified emphysema type J43.9 and Body mass index (bmi) 50-59.9 , adult Z68.43 [place] [address] [place] [id number] [address] [place] [phone] Feb, Generalized anxiety disorder F41.1 ; Major depressive disorder, recurrent episode, mild degree F33.0 and Habitual self-excoriation F42.4 [place] [address] [place] [id number] [address] [place] [phone] Feb, [facility] [address] [place] [id number] [address] [place] [phone] Jan, [place] [address] [place] [id number] [address] [place] [id number] Jan, Pulmonary emphysema, unspeci fied emphysema type J43.9 [facility] [address] [facility] [id number] [address] [place] [id number] Jan, Dental examination Z01.20 an d Dental caries K02.9 [facility] [address] [facility] [id number] [address] [place] [phone] Jan, Generalized anxiety disorder F41.1 and Major depressive disorder, recurrent episode, mild degree F33.0 [facility] [address] [place] [phone] Jan, [facility] [address] [place] [id number] [place] [phone] Jan, Generalized anxiety disorder F41.1 [facility] [address] [place] [id number] [address] [place] [id number] Jan, Oral abscess K12.2 and BMI 5 0.0-59.9, adult Z68.43 [facility] [address] [place] [id number] [address] [place] [id number] Dec, BMI 50.0-59.9, adult Z68.43 and Weight loss counseling, encounter for Z71.3 [facility] [address] [place] [id number] [address] [place] [phone] Dec, [facility] [address] [place] [id number] [address] [place] [phone] Dec, [facility] [address] [place] [phone] November, [facility] [address] [place] [id number] [address] [place] [id number] November, [facility] [address] [address] November, Pulmonary emphysema, unspeci fied emphysema type J43.9 ; Restrictive lung disease J98.4 ; BMI 50.0-59.9, adult Z68.43 ; History of renal cell cancer Z85.528 ; Essential hypertension I10 ; Mixed hyperlipidemia E78.[address]0 [facility] [address] [facility] [id number] [address] [place] [id number] November, Generalized anxiety disorder F41.1 [facility] [address] [facility] [id number] [address] [place] [phone] November, Generalized anxiety disorder F41.1 and Major depressive disorder, recurrent episode, mild degree F33.0 [facility] [address] [facility] [id number] [address] [place] [address] November, Generalized anxiety disorder F41.1 ; Major depressive disorder, recurrent episode, mild degree F33.0 and Habitual self-excoriation F42.4 [facility] [address] [facility] [id number] [address] [place] [id number] November, [facility] [address] [facility] [id number] [address] [place] [phone] Oct, Generalized anxiety disorder F41.1 [facility] [address] [facility] [id number] [address] [place] [phone] Oct, [facility] [address] [facility] [id number] [address] [place] [phone] Oct, Influenza-like illness R69 [facility] [address] [facility] [id number] [address] [place] [id number] Sep, Influenza-like illness R69 [facility] [address] [facility] [id number] [address] [place] [address] Sep, Generalized anxiety disorder F41.1 [facility] [address] [facility] [id number] [address] [place] [phone] Sep, [facility] [address] [facility] [id number] [address] [place] [phone] Aug, [facility] [address] [facility] [id number] [address] [place] [address] Aug, [facility] [address] [place] [id number] [address] [place] [id number] Aug, Generalized anxiety disorder F41.1 [facility] [address] [address] Aug, Influenza-like illness R69 a nd BMI 50.0-59.9, adult Z68.43 [facility] [address] [address] Jul, Fatty liver K76.0 ; Restrict jean-paul lung disease J98.4 ; Diastolic dysfunction I51.9 ; Body mass index (bmi) 50-59.9 , adult Z68.43 and Chronic prescription opiate use Z79.899 [facility] [address] [address] Jul, Generalized anxiety disorder F41.1 [facility] [address] [address] Jul, Generalized anxiety disorder F41.1 [facility] [address] [address] Jul, Primary osteoarthritis invol ving multiple joints M15.0 [facility] [address] [address] Jun, Generalized anxiety disorder F41.1 [facility] [address] [address] Jun, [facility] [address] [address] Jun, Mixed hyperlipidemia E78.2 [place] [address] [address] Jun, Generalized anxiety disorder F41.1 [facility] [address] [address] Jun, Generalized anxiety disorder F41.1 ; Major depressive disorder, recurrent episode, mild degree F33.0 and Habitual self-excoriation F42.4 [facility] [address] [id number] [address] [place] [address] May, [facility] [address] [id number] [address] [place] [address] May, Generalized anxiety disorder F41.1 [facility] [address] [id number] [address] [place] [id number] May, Generalized anxiety disorder F41.1 [facility] [address] [id number] [address] [place] [address] May, Primary osteoarthritis invol ving multiple joints M15.0 [facility] [address] [id number] [address] [place] [id number] Apr, Major depressive disorder, r ecurrent episode, mild degree F33.0 ; Generalized anxiety disorder F41.1 and Excoriation, neurotic L98.1 [facility] [address] [id number] [address] [place] [address] Apr, Primary osteoarthritis invol ving multiple joints M15.0 [facility] [address] [id number] [address] [place] [address] Apr, Essential hypertension I10 a nd Mixed hyperlipidemia E78.2 [facility] [address] [id number] [address] [place] [id number] Apr, Generalized anxiety disorder F41.1 ; Major depressive disorder, recurrent episode, mild degree F33.0 and Habitual self-excoriation F42.4 [facility] [address] [id number] [address] [place] [id number] Mar, Generalized anxiety disorder F41.1 ; Major depressive disorder, recurrent episode, mild degree F33.0 and Habitual self-excoriation F42.4 [facility] [address] [id number] [address] [place] [id number] Mar, Skin lesion L98.9 [facility] [address] [id number] [address] [place] [id number] Mar, Primary osteoarthritis invol ving multiple joints M15.0 [facility] [address] [id number] [address] [place] [id number] Mar, [facility] [address] [id number] [address] [place] [phone] Mar, [facility] [address] [id number] [address] [place] [phone] Feb, Major depressive disorder, r ecurrent episode, mild degree F33.0 ; Generalized anxiety disorder F41.1 and Excoriation, neurotic L98.1 [facility] [address] [id number] [address] [place] [id number] Feb, Generalized anxiety disorder F41.1 [facility] [address] [id number] [address] [place] [id number] Feb, Primary osteoarthritis invol ving multiple joints M15.0 [facility] [address] [id number] [address] [place] [id number] Jan, [facility] [address] [facility] [id number] [address] [place] [id number] Jan, Essential hypertension I10 ; Splenic artery aneurysm I72.8 ; Liver mass R16.0 ; Restrictive lung disease J98.4 ; Primary osteoarthritis involving multiple joints M15.0 ; Mixed hyperlipidemia E78.2 ; Bilateral carpal tunnel syndrome G56.03 ; Body mass index (bmi) 50-59.9 , adult Z68.43 and History of tobacco use Z87.891 [facility] [address] [id number] [address] [place] [id number] Jan, Major depressive disorder, r ecurrent episode, mild degree F33.0 and Generalized anxiety disorder F41.1 [facility] [address] [facility] [id number] [address] [place] [id number] Jan, [facility] [address] [facility] [id number] [address] [place] [id number] Jan, Generalized anxiety disorder F41.1 and Major depressive disorder, recurrent episode, mild degree F33.0 [facility] [address] [id number] [address] [place] [id number] Dec, Primary osteoarthritis invol ving multiple joints M15.0 [facility] [address] [id number] [address] [place] [id number] Dec, Generalized anxiety disorder F41.1 [facility] [address] [id number] [address] [place] [phone] Dec, [place] [address] [id number] [address] [place] [phone] Dec, Major depressive disorder, r ecurrent episode, mild degree F33.0 and Generalized anxiety disorder F41.1 [place] [address] [facility] [id number] [address] [place] [id number] Dec, Generalized anxiety disorder F41.1 and Major depressive disorder, recurrent episode, mild degree F33.0 [place] [address] [facility] [id number] [address] [place] [id number] November, Mild major depression F32.0 and Primary osteoarthritis involving multiple joints M15.0 [place] [address] [facility] [id number] [address] [place] [id number] November, Major depressive disorder, r ecurrent episode, mild degree F33.0 and Generalized anxiety disorder F41.1 [place] [address] [facility] [id number] [address] [place] [id number] November, Primary osteoarthritis invol ving multiple joints M15.0 ; Essential hypertension I10 ; Prediabetes R73.09 ; Mixed hyperlipidemia E78.2 ; Chronic prescription benzodiazepine use Z79.899 ; Chronic prescription opiate use Z79.899 ; Tobacco use Z72.0 ; Bilateral carpal tunnel syndrome G56.03 and Body mass index (bmi) 50-59.9 , adult Z68.43 [facility] [address] [facility] [id number] [address] [place] [id number] November, Primary osteoarthritis invol ving multiple joints M15.0 and Mild major depression F32.0 [facility] [address] [facility] [id number] [address] [place] [phone] Oct, [facility] [address] [facility] [id number] [address] [place] [id number] Oct, Primary osteoarthritis invol ving multiple joints M15.0 ; Essential hypertension I10 ; Prediabetes R73.09 ; Chronic prescription benzodiazepine use Z79.899 ; Chronic prescription opiate use Z79.899 ; Tobacco use Z72.0 ; Mixed hyperlipidemia E78.2 ; Bilateral carpal tunnel syndrome G56.03 ; Body mass index (bmi) 50-59.9 , adult Z68.43 and Encounter for immunization Z23 [place] [address] [place] [id number] [address] [place] [id number] Oct, Major depressive disorder, r ecurrent episode, mild degree F33.0 and Generalized anxiety disorder F41.1 [place] [address] [place] [id number] [address] [place] [phone] Oct, [facility] [address] [place] [id number] [address] [place] [address] Oct, [facility] [address] [place] [id number] [address] [place] [id number] Sep, Mild major depression F32.0 [facility] [address] [facility] [id number] [address] [place] [phone] Sep, [facility] [address] [facility] [id number] [address] [place] [id number] Sep, Mild major depression F32.0 and Generalized anxiety disorder F41.1 [facility] [address] [facility] [id number] [address] [place] [id number] Sep, Paresthesia of both hands R2 0.2 and Cervical radiculopathy M54.12 [facility] [address] [place] [id number] [address] [place] [id number] Sep, [place] [address] [place] [id number] [address] [place] [id number] Sep, [facility] [address] [facility] [id number] [address] [place] [id number] Aug, Paresthesia of both hands R2 0.2 [address] Neck pain M54.2 [facility] [address] [facility] [id number] [address] [place] [phone] Aug, [facility] [address] [facility] [id number] [address] [place] [address] Jul, Neck pain M54.2 and Paresthe eddie of both hands R20.2 [place] [address] [place] [id number] [place] [address] Jul, Proteinuria, unspecified typ e R80.9 [place] [address] [place] [id number] [place] [phone] Jul, Proteinuria, unspecified typ e R80.9 [facility] [address] [place] [id number] [address] [place] [id number] Jul, [facility] [address] [place] [id number] [place] [address] Jul, Other specified transient ce rebral ischemias G45.8 [facility] [address] [place] [id number] [address] [place] [address] Jun, Diastolic dysfunction I51.9 [facility] [address] [facility] [id number] [address] [place] [id number] Jun, Diastolic dysfunction I51.9 [facility] [address] [place] [id number] [address] [place] [phone] Jun, Major depressive disorder, s david episode, unspecified F32.9 and Anxiety disorder, unspecified F41.9 [facility] [address] [facility] [id number] [address] [place] [id number] Jun, [facility] [address] [place] [id number] [address] [place] [id number] Jun, [facility] [address] [place] [id number] [address] [place] [id number] 22 May, 2016 Moderate major depression F3 2.1 and Generalized anxiety disorder F41.1 [facility] [address] [place] [id number] [address] [place] [id number] 16 May, 2016 Major depressive disorder, s david episode, unspecified F32.9 and Anxiety disorder, unspecified F41.9 [facility] [address] [place] [id number] [place] [address] 15 May, 2016 [facility] [address] [place] [id number] [place] [address] 14 May, 2016 Liver enzyme elevation R74.8 [facility] [address] [place] [id number] [place] [address] 14 May, 2016 Liver enzyme elevation R74.8 [facility] [address] [address] 10 May, 2016 Shortness of breath on exert ion R06.02 ; Essential hypertension I10 ; Mixed hyperlipidemia E78.2 and Tobacco use Z72.0 [facility] [address] [place] [id number] [address] [place] [id number] [address] May, 2016 [facility] [address] [place] [id number] [address] [place] [id number] May, [facility] [address] [place] [id number] [address] [place] [address] Apr, Anxiety F41.[address] [facility] [address] [place] [id number] [address] [place] [phone] Apr, [facility] [address] [place] [id number] [place] [address] Apr, [facility] [address] [place] [id number] [address] [place] [phone] Mar, Depression F32.[address] [facility] [address] [id number] [address] [place] [phone] 08 Mar, 2016 Anxiety F41.[address] [facility] [address] [id number] [address] [place] [id number] 06 Mar, 2016 Well woman exam (no gynecolo gical exam) Z00.00 [facility] [address] [id number] [address] [place] [phone] Mar, [facility] [address] [id number] [address] [place] [phone] Mar, [facility] [address] [id number] [address] [place] [id number] Feb, Dental caries K02.9 [facility] [address] [id number] [address] [place] [phone] Feb, [facility] [address] [id number] [address] [place] [phone] Feb, Anxiety F41.9 and Depression F32.9 [facility] [address] [id number] [address] [place] [id number] Feb, Dental examination Z01.20 [facility] [address] [id number] [address] [place] [phone] Feb, [facility] [address] [id number] [address] [place] [id number] Feb, [facility] [address] [id number] [address] [place] [phone] Feb, Anxiety F41.[address] [facility] [address] [id number] [address] [place] [id number] Jan, Severe episode of recurrent major depressive disorder, without psychotic features F33.2 and Anxiety disorder, unspecified F41.9 [facility] [address] [id number] [address] [place] [phone] Jan, [place] [address] [id number] [address] [place] [id number] Dec, [facility] [address] [id number] [address] [place] [id number] Dec, Anxiety F41.[address] [facility] [address] [id number] [address] [place] [id number] 24 Dec, 2015 Other specified transient ce rebral ischemias G45.8 and Nocturnal hypoxia G47.34 [facility] [address] [id number] [address] [place] [id number] 18 Dec, 2015 [facility] [address] [id number] [address] [place] [id number] 17 Dec, 2015 Other specified transient ce rebral ischemias G45.8 [facility] [address] [id number] [address] [place] [id number] 16 Dec, 2015 Severe episode of recurrent major depressive disorder, without psychotic features F33.2 and Anxiety disorder, unspecified F41.9 [facility] [address] [id number] [address] [place] [id number] Dec, [facility] [address] [id number] [address] [place] [id number] Dec, Anxiety F41.[address] [facility] [address] [id number] [address] [place] [id number] Dec, Anxiety F41.[address] [facility] [address] [id number] [address] [place] [id number] Dec, [facility] [address] [id number] [address] [place] [id number] November, Anxiety F41.[address] [facility] [address] [id number] [address] [place] [id number] November, Severe episode of recurrent major depressive disorder, without psychotic features F33.2 ST[address] [facility] [address] [facility] [id number] [address] [place] [phone] November, Mixed hyperlipidemia E78.2 [facility] [address] [facility] [id number] [address] [place] [phone] November, Anxiety F41.9 and Depression F32.9 [place] [address] [facility] [id number] [address] [place] [phone] 05 Nov, 2015 Prediabetes R73.09 ; Essenti al hypertension I10 ; Anxiety F41.9 ; Depression F32.9 ; Gastroesophageal reflux disease, esophagitis presence not specified K21.9 ; Primary osteoarthritis involving multiple joints M15.0 ; History of renal cell cancer Z85.528 ; Postnasal drip R09.82 ; Allergic rhinitis, unspecified J30.9 and Tobacco use Z72.0 [place] [id number] [place] [phone] Oct, Anxiety F41.9 and Depression F32.9 [place] [address] [facility] [id number] [address] [place] [phone] 07 Oct, 2015 [place] [address] [place] [id number] [address] [place] [phone] Oct, [place] [address] [place] [id number] [address] [place] [id number] 14 Sep, 2015 Splenic artery aneurysm I72. 8 [place] [address] [facility] [id number] [address] [place] [phone] 10 Sep, 2015 Depression F32.9 ; Anxiety F 41.9 ; Chronic prescription benzodiazepine use Z79.899 and Splenic artery aneurysm I72.8 [place] [address] [facility] [id number] [address] [place] [phone] 10 Sep, 2015 Depression F32.9 and Anxiety F41.9 [place] [address] [facility] [id number] [address] [place] [phone] 02 Sep, 2015 [facility] [address] [place] [id number] [address] [place] [phone] 18 Aug, 2015 Dehydration E86.0 ; Diarrhea R19.7 ; Nausea R11.0 and Generalized abdominal pain R10.84 [facility] [address] [facility] [id number] [address] [place] [phone] Aug, [facility] [address] [place] [id number] [address] [place] [phone] Jul, Depression F32.9 [facility] [address] [place] [id number] [address] [place] [phone] Jul, [facility] [address] [place] [id number] [place] [phone] Jul, Anxiety F41.[address] [facility] [address] [place] [id number] [address] [place] [phone] Jul, [facility] [address] [phone] Jun, Epigastric pain R10.13 [facility] [address] [place] [id number] [address] [place] [phone] Jun, [facility] [address] [place] [id number] [place] [phone] Jun, [facility] [address] [place] [id number] [address] [place] [phone] May, [facility] [address] [place] [id number] [address] [place] [phone] May, [facility] [address] [place] [id number] [address] [place] [phone] Apr, [facility] [address] [place] [id number] [place] [phone] Mar, Anxiety state, unspecified 3 00.00 ; Depression 311 ; Prediabetes 790.29 ; Generalized osteoarthrosis, involving multiple sites 715.[address] [facility] [address] [place] [id number] [address] [place] [phone] Mar, [facility] [address] [id number] [address] [place] [phone] Feb, [facility] [address] [id number] [address] [place] [phone] Jan, [facility] [address] [id number] [address] [place] [phone] Jan, [facility] [address] [id number] [address] [place] [phone] Jan, Generalized osteoarthrosis, involving multiple sites 715.09 [facility] [address] [id number] [address] [place] [phone] Jan, Hx of renal cell cancer V10. 52 [facility] [address] [id number] [address] [place] [phone] Dec, Generalized osteoarthrosis, involving multiple sites 715.09 and Hx of renal cell cancer V10.52 [facility] [address] [id number] [address] [place] [phone] Dec, [facility] [address] [id number] [address] [place] [phone] Dec, [facility] [address] [id number] [address] [place] [phone] November, [facility] [address] [id number] [address] [place] [phone] Oct, [facility] [address] [id number] [address] [place] [phone] Oct, [facility] [address] [id number] [address] [place] [phone] Sep, [facility] [address] [id number] [address] [place] [phone] Sep, [facility] [address] [id number] [address] [place] [phone] Sep, [facility] [address] [facility] [id number] [address] [place] [phone] Sep, [facility] [address] [facility] [id number] [address] [place] [phone] Aug, [facility] [address] [facility] [id number] [address] [place] [phone] Aug, IMMUNIZATIONS No Known Immunizations SOCIAL HISTORY Never Assessed REASON FOR VISIT pt reports either having a left ear ache or left sided dental pain. reports pain in both areas since yesterday. [email or web address] PLAN OF CARE Activity Details Follow Up prn Reason: VITAL SIGNS Height 62 in 2018-02-03 Weight 294.6 lbs 2018-02-03 Temperature 98.6 degrees Fahrenheit 2018-02-03 Heart Rate 92 bpm 2018-02-03 Respiratory Rate 20 2018-02-03 BMI 53.88 kg/m2 2018-02-03 Blood pressure systolic 128 mmHg 2018-02-03 Blood pressure diastolic 78 mmHg 2018-02-03 MEDICATIONS Medication Instructions Dosage Frequency Start Date End Date Duration S tatus Naproxen 500 MG Orally every 12 hrs 1 tablet with food or milk as n eeded 12h Jan, Jan, 10 days Active Remeron 15 mg Orally Once a day at bedtime 1 tablet at bedtime Active Wellbutrin XL 300 MG Orally Once a day 1 tablet in the morning 24h Active Tizanidine HCl 2 MG TAKE ONE TABLET BY MOUTH EVERY 8 HOURS NE EDED 30 Active Wellbutrin XL 150 MG Orally Once a day (along wit h 300 mg tablet to equal 450 mg daily 1 tablet in the morning A ctive Atenolol 50 MG TAKE ONE TABLET BY MOUTH ONCE DAILY 90 Active Atorvastatin Calcium 40 MG TAKE ONE TABLET BY MOUTH ONCE DAILY 30 Active Diazepam 5 mg Orally Once a day as needed for anxiety 0.5 tablet 30 days Active Omeprazole 40 MG TAKE ONE CAPSULE BY MOUTH ONCE DAILY 30 Active Stiolto Respimat 2.5-2.5 MCG/ACT Inhalation Once a day 2 puffs 24h November, Active Amoxicillin 500 MG Orally every 8 hrs 1 capsule 8h Jan, Jan, 10 day(s) Active Furosemide 20 MG TAKE ONE TABLET BY MOUTH ONCE DAILY 30 Active Cymbalta 30 MG Orally Once a day 3 capsules 24h Active Vitamin E Complete Activ e Hydrocodone-Acetaminophen 5-325 MG Orally 2 times a day as n eeded for pain take 1 tablet Dec, 28 Active Potassium Chloride ER 20 MEQ TAKE ONE TABLET BY MOUTH ONCE DAILY WITH FOOD 30 Active ProAir HFA 108 (90 Base) MCG/ACT Inhalation every 4 hrs 2 puffs as ne eded 4h 17 Active RESULTS No Results PROCEDURES Procedure Date Ordered Result Body Site [facility] VISIT ESTABLISHED PATIENT February 03, 2018 INSTRUCTIONS MEDICATIONS ADMINISTERED No Known Medications [...]
--- OUTSIDE RECORDS SUMMARY | 2020-02-08 07:16 | XMS REPORT ---
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 Name Role Phone [email or web address] Unavailable PROBLEMS Type Condition ICD9-CM Code KSF82-IO Code Onset Dates Condition S tatus SNOMED Code Problem Mixed hyperlipidemia E78.2 Active 096254754 Problem Fatty liver K76.0 Active 85961561 7 Problem Obstructive sleep apnea G47.33 Active 34543955 Problem Allergic rhinitis, unspecified J30.9 Active 10763518 Problem Essential hypertension I10 Active 61957085 Problem History of renal cell cancer Z85.528 A ctive 856737444 Problem Prediabetes R73.09 Active 1222798 Problem Diastolic dysfunction I51.9 Active 2483126 Problem Body mass index (bmi) 50-59.9 , adult Z68.43 Active 115171780 Problem Paresthesia of both hands R20.2 Acti ve 338495097 Problem Habitual self-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 Acti ve 602466050 Problem BMI 50.0-59.9, adult Z68.43 Active 881529298 Problem Restrictive lung disease J98.4 Activ e 36952022 Problem Splenic artery aneurysm I72.8 Active 83222573 Problem Liver mass R16.0 Active 665524787 Problem Generalized anxiety disorder F41.1 A ctive 62638972 Problem Major depressive disorder, recurrent episode, mild degree F33.0 Active 550289249 Problem Excoriation, neurotic L98.1 Active 05134141 Problem History of tobacco use Z87.891 Active 4861610395599 Problem Primary osteoarthritis involving multiple joints M 15.0 Active 696578915 Problem Isolated proteinuria without specific morphologic lesion R80.0 Active 11262628 Problem 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 Active 774908803 Problem Pulmonary emphysema, unspecified emphysema type J4 3.9 Active 17675071 Problem Chronic prescription opiate use Z79.899 Active 367140063 Problem Tobacco use Z72.0 Active 00500970 0 Problem Bilateral carpal tunnel syndrome G56.03 Active 64609972 Problem Chronic prescription benzodiazepine use Z79.899 Active 567277585 ALLERGIES No Information ENCOUNTERS Encounter Location Date Diagnosis [facility] [address] [facility] [id number] [address] [place] [phone] May, [facility] [address] [facility] [id number] [address] [place] [phone] Mar, [facility] [address] [facility] [id number] [address] [place] [phone] Feb, Generalized anxiety disorder F41.1 ; Major depressive disorder, recurrent episode, mild degree F33.0 and Habitual self-excoriation F42.4 [place] [address] [facility] [id number] [address] [place] [phone] Feb, Generalized anxiety disorder F41.1 and Major depressive disorder, recurrent episode, mild degree F33.0 [facility] [address] [place] [id number] [address] [place] [phone] Feb, [place] [address] [place] [id number] [place] [phone] Feb, Restrictive lung disease J98 .4 ; Pulmonary emphysema, unspecified emphysema type J43.9 and Body mass index (bmi) 50-59.9 , adult Z68.43 [place] [address] [place] [id number] [address] [place] [phone] Feb, Generalized anxiety disorder F41.1 ; Major depressive disorder, recurrent episode, mild degree F33.0 and Habitual self-excoriation F42.4 [place] [address] [facility] [id number] [address] [place] [phone] Feb, [facility] [address] [facility] [id number] [address] [place] [phone] Jan, [facility] [address] [facility] [id number] [address] [place] [phone] Jan, Pulmonary emphysema, unspeci fied emphysema type J43.9 [facility] [address] [facility] [id number] [address] [place] [id number] Jan, Dental examination Z01.20 an d Dental caries K02.9 [facility] [address] [facility] [id number] [address] [place] [phone] Jan, Generalized anxiety disorder F41.1 and Major depressive disorder, recurrent episode, mild degree F33.0 [facility] [id number] [place] [phone] Jan, [facility] [address] [place] [id number] [place] [phone] Jan, Generalized anxiety disorder F41.1 [facility] [address] [place] [id number] [address] [place] [phone] Jan, Oral abscess K12.2 and BMI 5 0.0-59.9, adult Z68.43 [facility] [address] [place] [id number] [address] [place] [phone] Dec, BMI 50.0-59.9, adult Z68.43 and Weight loss counseling, encounter for Z71.3 [facility] [address] [place] [id number] [address] [place] [phone] Dec, [facility] [address] [place] [id number] [address] [place] [phone] Dec, [facility] [id number] [place] [phone] November, [facility] [address] [place] [id number] [address] [place] [phone] November, [facility] [address] [address] November, Pulmonary emphysema, unspeci fied emphysema type J43.9 ; Restrictive lung disease J98.4 ; BMI 50.0-59.9, adult Z68.43 ; History of renal cell cancer Z85.528 ; Essential hypertension I10 ; Mixed hyperlipidemia E78.2 and Fatty liver K76.0 [facility] [address] [facility] [id number] [address] [place] [phone] November, Generalized anxiety disorder F41.1 [facility] [address] [facility] [id number] [address] [place] [phone] November, Generalized anxiety disorder F41.1 and Major depressive disorder, recurrent episode, mild degree F33.0 [facility] [address] [facility] [id number] [address] [place] [phone] November, Generalized anxiety disorder F41.1 ; Major depressive disorder, recurrent episode, mild degree F33.0 and Habitual self-excoriation F42.4 [facility] [address] [facility] [id number] [address] [place] [phone] November, [facility] [address] [facility] [id number] [address] [place] [phone] Oct, Generalized anxiety disorder F41.1 [facility] [address] [facility] [id number] [address] [place] [phone] Oct, [facility] [address] [facility] [id number] [address] [place] [phone] Oct, Influenza-like illness R69 [facility] [address] [facility] [id number] [address] [place] [phone] Sep, Influenza-like illness R69 [facility] [address] [facility] [id number] [address] [place] [phone] Sep, Generalized anxiety disorder F41.1 [facility] [address] [facility] [id number] [address] [place] [phone] Sep, [facility] [address] [facility] [id number] [address] [place] [phone] Aug, [facility] [address] [facility] [id number] [address] [place] [phone] Aug, [facility] [address] [place] [id number] [address] [place] [phone] Aug, Generalized anxiety disorder F41.1 [facility] [address] [phone] Aug, Influenza-like illness R69 a nd BMI 50.0-59.9, adult Z68.43 [facility] [address] [address] Jul, Fatty liver K76.0 ; Restrict jean-paul lung disease J98.4 ; Diastolic dysfunction I51.9 ; Body mass index (bmi) 50-59.9 , adult Z68.43 and Chronic prescription opiate use Z79.899 [facility] [address] [address] Jul, Generalized anxiety disorder F41.1 [facility] [address] [address] Jul, Generalized anxiety disorder F41.1 [facility] [address] [address] Jul, Primary osteoarthritis invol ving multiple joints M15.0 [facility] [address] [address] Jun, Generalized anxiety disorder F41.1 [facility] [address] [address] Jun, [facility] [address] [address] Jun, Mixed hyperlipidemia E78.2 [place] [address] [address] Jun, Generalized anxiety disorder F41.1 [facility] [address] [address] Jun, Generalized anxiety disorder F41.1 ; Major depressive disorder, recurrent episode, mild degree F33.0 and Habitual self-excoriation F42.4 [facility] [address] [id number] [address] [place] [phone] May, [facility] [address] [id number] [address] [place] [phone] May, Generalized anxiety disorder F41.1 [facility] [address] [id number] [address] [place] [phone] May, Generalized anxiety disorder F41.1 [facility] [address] [id number] [address] [place] [phone] May, Primary osteoarthritis invol ving multiple joints M15.0 [facility] [address] [id number] [address] [place] [phone] Apr, Major depressive disorder, r ecurrent episode, mild degree F33.0 ; Generalized anxiety disorder F41.1 and Excoriation, neurotic L98.1 [facility] [address] [id number] [address] [place] [phone] Apr, Primary osteoarthritis invol ving multiple joints M15.0 [facility] [address] [id number] [address] [place] [phone] Apr, Essential hypertension I10 a nd Mixed hyperlipidemia E78.2 [facility] [address] [id number] [address] [place] [phone] Apr, Generalized anxiety disorder F41.1 ; Major depressive disorder, recurrent episode, mild degree F33.0 and Habitual self-excoriation F42.4 [facility] [address] [id number] [address] [place] [phone] Mar, Generalized anxiety disorder F41.1 ; Major depressive disorder, recurrent episode, mild degree F33.0 and Habitual self-excoriation F42.4 [facility] [address] [id number] [address] [place] [phone] Mar, Skin lesion L98.9 [facility] [address] [id number] [address] [place] [phone] Mar, Primary osteoarthritis invol ving multiple joints M15.0 [facility] [address] [id number] [address] [place] [phone] Mar, [facility] [address] [id number] [address] [place] [phone] Mar, [facility] [address] [id number] [address] [place] [phone] Feb, Major depressive disorder, r ecurrent episode, mild degree F33.0 ; Generalized anxiety disorder F41.1 and Excoriation, neurotic L98.1 [facility] [address] [id number] [address] [place] [phone] Feb, Generalized anxiety disorder F41.1 [facility] [address] [id number] [address] [place] [phone] Feb, Primary osteoarthritis invol ving multiple joints M15.0 [facility] [address] [id number] [address] [place] [phone] Jan, [facility] [address] [facility] [id number] [address] [place] [phone] Jan, Essential hypertension I10 ; Splenic artery aneurysm I72.8 ; Liver mass R16.0 ; Restrictive lung disease J98.4 ; Primary osteoarthritis involving multiple joints M15.0 ; Mixed hyperlipidemia E78.2 ; Bilateral carpal tunnel syndrome G56.03 ; Body mass index (bmi) 50-59.9 , adult Z68.43 and History of tobacco use Z87.891 [facility] [address] [id number] [address] [place] [phone] Jan, Major depressive disorder, r ecurrent episode, mild degree F33.0 and Generalized anxiety disorder F41.1 [facility] [address] [facility] [id number] [address] [place] [phone] Jan, [facility] [address] [facility] [id number] [address] [place] [phone] Jan, Generalized anxiety disorder F41.1 and Major depressive disorder, recurrent episode, mild degree F33.0 [facility] [address] [id number] [address] [place] [phone] Dec, Primary osteoarthritis invol ving multiple joints M15.0 [facility] [address] [id number] [address] [place] [phone] Dec, Generalized anxiety disorder F41.1 [facility] [address] [id number] [address] [place] [phone] Dec, [place] [address] [id number] [address] [place] [phone] Dec, Major depressive disorder, r ecurrent episode, mild degree F33.0 and Generalized anxiety disorder F41.1 [place] [address] [facility] [id number] [address] [place] [phone] Dec, Generalized anxiety disorder F41.1 and Major depressive disorder, recurrent episode, mild degree F33.0 [place] [address] [facility] [id number] [address] [place] [phone] November, Mild major depression F32.0 and Primary osteoarthritis involving multiple joints M15.0 [place] [address] [facility] [id number] [address] [place] [phone] November, Major depressive disorder, r ecurrent episode, mild degree F33.0 and Generalized anxiety disorder F41.1 [place] [address] [facility] [id number] [address] [place] [phone] November, Primary osteoarthritis invol ving multiple joints M15.0 ; Essential hypertension I10 ; Prediabetes R73.09 ; Mixed hyperlipidemia E78.2 ; Chronic prescription benzodiazepine use Z79.899 ; Chronic prescription opiate use Z79.899 ; Tobacco use Z72.0 ; Bilateral carpal tunnel syndrome G56.03 and Body mass index (bmi) 50-59.9 , adult Z68.43 [facility] [address] [facility] [id number] [address] [place] [phone] November, Primary osteoarthritis invol ving multiple joints M15.0 and Mild major depression F32.0 [facility] [address] [facility] [id number] [address] [place] [phone] Oct, [facility] [address] [facility] [id number] [address] [place] [address] Oct, Primary osteoarthritis invol ving multiple joints M15.0 ; Essential hypertension I10 ; Prediabetes R73.09 ; Chronic prescription benzodiazepine use Z79.899 ; Chronic prescription opiate use Z79.899 ; Tobacco use Z72.0 ; Mixed hyperlipidemia E78.2 ; Bilateral carpal tunnel syndrome G56.03 ; Body mass index (bmi) 50-59.9 , adult Z68.43 and Encounter for immunization Z23 [place] [address] [place] [id number] [address] [place] [phone] Oct, Major depressive disorder, r ecurrent episode, mild degree F33.0 and Generalized anxiety disorder F41.1 [place] [address] [place] [id number] [address] [place] [phone] Oct, [facility] [address] [place] [id number] [address] [place] [id number] Oct, [facility] [address] [place] [id number] [address] [place] [id number] Sep, Mild major depression F32.0 [facility] [address] [facility] [id number] [address] [place] [phone] Sep, [facility] [address] [facility] [id number] [address] [place] [phone] Sep, Mild major depression F32.0 and Generalized anxiety disorder F41.1 [facility] [address] [facility] [id number] [address] [place] [phone] Sep, Paresthesia of both hands R2 0.2 and Cervical radiculopathy M54.12 [facility] [address] [place] [id number] [address] [place] [phone] Sep, [place] [address] [place] [id number] [address] [place] [phone] Sep, [facility] [address] [facility] [id number] [address] [place] [phone] Aug, Paresthesia of both hands R2 0.2 and Neck pain M54.2 [facility] [address] [facility] [id number] [address] [place] [phone] Aug, [facility] [address] [facility] [id number] [address] [place] [phone] Jul, Neck pain M54.2 and Paresthe eddie of both hands R20.2 [place] [address] [place] [id number] [place] [phone] Jul, Proteinuria, unspecified typ e R80.9 [place] [address] [place] [id number] [place] [phone] Jul, Proteinuria, unspecified typ e R80.9 [facility] [address] [place] [id number] [address] [place] [phone] Jul, [facility] [address] [place] [id number] [place] [phone] Jul, Other specified transient ce rebral ischemias G45.8 [facility] [address] [place] [id number] [address] [place] [phone] Jun, Diastolic dysfunction I51.9 [facility] [address] [facility] [id number] [address] [place] [phone] Jun, Diastolic dysfunction I51.9 [facility] [address] [place] [id number] [address] [place] [address] Jun, Major depressive disorder, s david episode, unspecified F32.9 and Anxiety disorder, unspecified F41.9 [facility] [address] [facility] [id number] [address] [place] [phone] Jun, [facility] [address] [place] [id number] [address] [place] [phone] Jun, [facility] [address] [place] [id number] [address] [place] [phone] 22 May, 2016 Moderate major depression F3 2.1 and Generalized anxiety disorder F41.1 [facility] [address] [place] [id number] [address] [place] [phone] 16 May, 2016 Major depressive disorder, s david episode, unspecified F32.9 and Anxiety disorder, unspecified F41.9 [facility] [address] [place] [id number] [place] [phone] 15 May, 2016 [facility] [address] [place] [id number] [place] [address] 14 May, 2016 Liver enzyme elevation R74.8 [facility] [address] [place] [id number] [place] [address] 14 May, 2016 Liver enzyme elevation R74.8 [facility] [address] [address] 10 May, 2016 Shortness of breath on exert ion R06.02 ; Essential hypertension I10 ; Mixed hyperlipidemia E78.2 and Tobacco use Z72.0 [facility] [address] [place] [id number] [address] [place] [phone] 03 May, 2016 [facility] [address] [place] [id number] [address] [place] [phone] May, [facility] [address] [place] [id number] [address] [place] [phone] Apr, Anxiety F41.9 and Depression F32.9 [facility] [address] [place] [id number] [address] [place] [phone] Apr, [facility] [address] [place] [id number] [place] [phone] Apr, [facility] [address] [place] [id number] [address] [place] [phone] Mar, Depression F32.9 and Anxiety F41.9 [facility] [address] [id number] [address] [place] [phone] 08 Mar, 2016 Anxiety F41.9 and Depression F32.9 [facility] [address] [id number] [address] [place] [phone] 06 Mar, 2016 Well woman exam (no gynecolo gical exam) Z00.00 [facility] [address] [id number] [address] [place] [phone] Mar, [facility] [address] [id number] [address] [place] [phone] Mar, [facility] [address] [id number] [address] [place] [id number] Feb, Dental caries K02.9 [facility] [address] [id number] [address] [place] [phone] Feb, [facility] [address] [id number] [address] [place] [phone] Feb, Anxiety F41.9 and Depression F32.9 [facility] [address] [id number] [address] [place] [id number] Feb, Dental examination Z01.20 [facility] [address] [id number] [address] [place] [phone] Feb, [facility] [address] [id number] [address] [place] [phone] Feb, [facility] [address] [id number] [address] [place] [phone] Feb, Anxiety F41.9 and Depression F32.9 [facility] [address] [id number] [address] [place] [phone] Jan, Severe episode of recurrent major depressive disorder, without psychotic features F33.2 and Anxiety disorder, unspecified F41.9 [facility] [address] [id number] [address] [place] [phone] Jan, [place] [id number] [id number] [address] [place] [phone] Dec, [facility] [address] [id number] [address] [place] [id number] Dec, Anxiety F41.9 and Depression F32.9 [facility] [address] [id number] [address] [place] [phone] 24 Dec, 2015 Other specified transient ce rebral ischemias G45.8 and Nocturnal hypoxia G47.34 [facility] [address] [id number] [address] [place] [phone] 18 Dec, 2015 [facility] [address] [id number] [address] [place] [phone] 17 Dec, 2015 Other specified transient ce rebral ischemias G45.8 [facility] [address] [id number] [address] [place] [id number] 16 Dec, 2015 Severe episode of recurrent major depressive disorder, without psychotic features F33.2 and Anxiety disorder, unspecified F41.9 [facility] [address] [id number] [address] [place] [phone] Dec, [facility] [address] [id number] [address] [place] [phone] Dec, Anxiety F41.9 and Depression F32.9 [facility] [address] [id number] [address] [place] [phone] Dec, Anxiety F41.9 and Depression F32.9 [facility] [address] [id number] [address] [place] [phone] Dec, [facility] [address] [id number] [address] [place] [phone] November, Anxiety F41.9 and Depression F32.9 [facility] [address] [id number] [address] [place] [phone] November, Severe episode of recurrent major depressive disorder, without psychotic features F33.2 [facility] [address] [facility] [id number] [address] [place] [phone] November, Mixed hyperlipidemia E78.2 [facility] [address] [facility] [id number] [address] [place] [phone] November, Anxiety F41.9 and Depression F32.9 [place] [address] [address] [facility] [id number] [address] [place] [phone] 05 Nov, 2015 Prediabetes R73.09 ; Essenti al hypertension I10 ; Anxiety F41.9 ; Depression F32.9 ; Gastroesophageal reflux disease, esophagitis presence not specified K21.9 ; Primary osteoarthritis involving multiple joints M15.0 ; History of renal cell cancer Z85.528 ; Postnasal drip R09.82 ; Allergic rhinitis, unspecified J30.9 and Tobacco use Z72.0 [place] [id number] [place] [phone] Oct, Anxiety F41.9 and Depression F32.9 [place] [address] [address] [facility] [id number] [address] [place] [phone] 07 Oct, 2015 [place] [address] [place] [id number] [address] [place] [phone] Oct, [place] [address] [place] [id number] [address] [place] [id number] 14 Sep, 2015 Splenic artery aneurysm I72. 8 [place] [address] [facility] [id number] [address] [place] [phone] 10 Sep, 2015 Depression F32.9 ; Anxiety F 41.9 ; Chronic prescription benzodiazepine use Z79.899 and Splenic artery aneurysm I72.8 [place] [address] [facility] [id number] [address] [place] [phone] 10 Sep, 2015 Depression F32.9 and Anxiety F41.9 [place] [address] [address] [facility] [id number] [address] [place] [phone] 02 Sep, 2015 [facility] [address] [place] [id number] [address] [place] [phone] 18 Aug, 2015 Dehydration E86.0 ; Diarrhea R19.7 ; Nausea R11.0 and Generalized abdominal pain R10.84 [facility] [address] [facility] [id number] [address] [place] [phone] Aug, [facility] [address] [place] [id number] [address] [place] [phone] Jul, Depression F32.9 [facility] [address] [place] [id number] [address] [place] [phone] Jul, [facility] [address] [place] [id number] [place] [phone] Jul, Anxiety F41.9 and Depression F32.9 [facility] [address] [place] [id number] [address] [place] [phone] Jul, [facility] [address] [phone] Jun, Epigastric pain R10.13 [facility] [address] [place] [id number] [address] [place] [phone] Jun, [facility] [address] [place] [id number] [place] [phone] Jun, [facility] [address] [place] [id number] [address] [place] [phone] May, [facility] [address] [place] [id number] [address] [place] [phone] May, [facility] [address] [place] [id number] [address] [place] [phone] Apr, [facility] [address] [place] [id number] [place] [phone] Mar, Anxiety state, unspecified 3 00.00 ; Depression 311 ; Prediabetes 790.29 ; Generalized osteoarthrosis, involving multiple sites 715.09 and Hypertension 401.9 [facility] [address] [place] [id number] [address] [place] [phone] Mar, [facility] [address] [id number] [address] [place] [phone] Feb, [facility] [address] [id number] [address] [place] [phone] Jan, [facility] [address] [id number] [address] [place] [phone] Jan, [facility] [address] [id number] [address] [place] [phone] Jan, Generalized osteoarthrosis, involving multiple sites 715.09 [facility] [address] [id number] [address] [place] [phone] Jan, Hx of renal cell cancer V10. 52 [facility] [address] [id number] [address] [place] [phone] Dec, Generalized osteoarthrosis, involving multiple sites 715.09 and Hx of renal cell cancer V10.52 [facility] [address] [id number] [address] [place] [phone] Dec, [facility] [address] [id number] [address] [place] [phone] Dec, [facility] [address] [id number] [address] [place] [phone] November, [facility] [address] [id number] [address] [place] [phone] Oct, [facility] [address] [id number] [address] [place] [phone] Oct, [facility] [address] [id number] [address] [place] [phone] Sep, [facility] [address] [id number] [address] [place] [phone] Sep, [facility] [address] [id number] [address] [place] [phone] Sep, [facility] [address] [facility] [id number] [address] [place] [phone] Sep, [facility] [address] [facility] [id number] [address] [place] [phone] Aug, [facility] [address] [facility] [id number] [address] [place] [phone] Aug, IMMUNIZATIONS No Known Immunizations SOCIAL HISTORY Never Assessed REASON FOR VISIT valium refill PLAN OF CARE VITAL SIGNS MEDICATIONS Medication Instructions Dosage Frequency Start Date End Date Duration S tatus Diazepam 5 mg Orally Once a day as needed for anxiety 0.5 tablet 30 days Active RESULTS No Results PROCEDURES [...]
--- OUTSIDE RECORDS SUMMARY | 2020-02-08 07:17 | XMS REPORT ---
Author Author Emilee MAY Organization [facility] Address [address] [place] [address] Care Team Providers Care Supervisor Road Administrator Name Role Phone LALOJEZALBANIA Unavailable PROBLEMS Type Condition ICD9-CM Code GOC92-YV Code Onset Dates Condition S tatus SNOMED Code Problem Mixed hyperlipidemia E78.2 Active 395180023 Problem Fatty liver K76.0 Active 10679419 7 Problem Obstructive sleep apnea G47.33 Active 02606829 Problem Allergic rhinitis, unspecified J30.9 Active 70608184 Problem Essential hypertension I10 Active 91657655 Problem History of renal cell cancer Z85.528 A ctive 363991705 Problem Prediabetes R73.09 Active 4111807 Problem Diastolic dysfunction I51.9 Active 6224979 Problem Body mass index (bmi) 50-59.9 , adult Z68.43 Active 271001940 Problem Paresthesia of both hands R20.2 Acti ve 024067294 Problem Habitual self-excoriation 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 Acti ve 922997018 Problem BMI 50.0-59.9, adult Z68.43 Active 055709136 Problem Restrictive lung disease J98.4 Activ e 47923300 Problem Splenic artery aneurysm I72.8 Active 47546674 Problem Liver mass R16.0 Active 359058953 Problem Generalized anxiety disorder F41.1 A ctive 25269182 Problem Major depressive disorder, recurrent episode, mild degree F33.0 Active 285587539 Problem Excoriation, neurotic L98.1 Active 82381236 Problem History of tobacco use Z87.891 Active 4092264972279 Problem Primary osteoarthritis involving multiple joints M 15.0 Active 741328964 Problem Isolated proteinuria without specific morphologic lesion R80.0 Active 71342978 Problem 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 Active 153561179 Problem Pulmonary emphysema, unspecified emphysema type J4 3.9 Active 89327636 Problem Chronic prescription opiate use Z79.899 Active 952425349 Problem Tobacco use Z72.0 Active 27333815 0 Problem Bilateral carpal tunnel syndrome G56.03 Active 96844006 Problem Chronic prescription benzodiazepine use Z79.899 Active 623753020 ALLERGIES No Information ENCOUNTERS Encounter Location Date Diagnosis [facility] [address] [facility] [id number] [address] [place] [id number] May, [facility] [address] [facility] [id number] [address] [place] [address] Mar, [facility] [address] [facility] [id number] [address] [place] [address] Mar, [facility] [address] [facility] [id number] [address] [place] [address] Feb, Generalized anxiety disorder F41.1 ; Major depressive disorder, recurrent episode, mild degree F33.0 and Habitual self-excoriation F42.4 [facility] [address] [facility] [id number] [address] [place] [address] Feb, Generalized anxiety disorder F41.1 and Major depressive disorder, recurrent episode, mild degree F33.0 [facility] [address] [facility] [id number] [address] [place] [address] Feb, [facility] [address] [facility] [id number] [address] [place] [address] Feb, Restrictive lung disease J98 .4 ; Pulmonary emphysema, unspecified emphysema type J43.9 and Body mass index (bmi) 50-59.9 , adult Z68.43 [facility] [address] [facility] [id number] [address] [place] [address] Feb, Generalized anxiety disorder F41.1 ; Major depressive disorder, recurrent episode, mild degree F33.0 and Habitual self-excoriation F42.4 [facility] [address] [facility] [id number] [address] [place] [address] Feb, [facility] [address] [facility] [id number] [address] [place] [id number] Jan, [facility] [address] [facility] [id number] [address] [place] [address] Jan, Pulmonary emphysema, unspeci fied emphysema type J43.9 [facility] [address] [id number] [address] [place] [id number] Jan, Dental examination Z01.20 an d Dental caries K02.9 [facility] [address] [facility] [id number] [address] [place] [id number] Jan, Generalized anxiety disorder F41.1 and Major depressive disorder, recurrent episode, mild degree F33.0 [facility] [address] [facility] [id number] [address] [place] [id number] Jan, [facility] [address] [facility] [id number] [address] [place] [address] Jan, Generalized anxiety disorder F41.1 [facility] [address] [facility] [id number] [address] [place] [address] Jan, Oral abscess K12.2 and BMI 5 0.0-59.9, adult Z68.43 [facility] [address] [facility] [id number] [address] [place] [address] Dec, BMI 50.0-59.9, adult Z68.43 and Weight loss counseling, encounter for Z71.3 [facility] [address] [facility] [id number] [address] [place] [address] Dec, [facility] [address] [facility] [id number] [address] [place] [address] Dec, [facility] [address] [facility] [id number] [address] [place] [address] November, [facility] [address] [facility] [id number] [address] [place] [address] November, [facility] [address] [facility] [id number] [address] [place] [address] November, Pulmonary emphysema, unspeci fied emphysema type J43.9 ; Restrictive lung disease J98.4 ; BMI 50.0-59.9, adult Z68.43 ; History of renal cell cancer Z85.528 ; Essential hypertension I10 ; Mixed hyperlipidemia E78.2 and Fatty liver K76.0 [facility] [address] [facility] [id number] [address] [place] [address] November, Generalized anxiety disorder F41.1 [facility] [address] [facility] [id number] [address] [place] [id number] November, Generalized anxiety disorder F41.1 and Major depressive disorder, recurrent episode, mild degree F33.0 [facility] [address] [facility] [id number] [address] [place] [address] November, Generalized anxiety disorder F41.1 ; Major depressive disorder, recurrent episode, mild degree F33.0 and Habitual self-excoriation F42.4 [facility] [address] [facility] [id number] [address] [place] [address] November, [facility] [address] [facility] [id number] [address] [place] [address] Oct, Generalized anxiety disorder F41.1 [facility] [address] [facility] [id number] [address] [place] [id number] Oct, [facility] [address] [facility] [id number] [address] [place] [address] Oct, Influenza-like illness R69 [facility] [address] [facility] [id number] [address] [place] [address] Sep, Influenza-like illness R69 [facility] [address] [facility] [id number] [address] [place] [address] Sep, Generalized anxiety disorder F41.1 [facility] [address] [facility] [id number] [address] [place] [id number] Sep, [facility] [address] [place] [id number] [address] [place] [address] Aug, [facility] [id number] [place] [id number] 07 Aug, 2017 [facility] [address] [address] Aug, Generalized anxiety disorder F41.1 [facility] [address] [facility] [id number] [address] [place] [address] Aug, Influenza-like illness R69 a nd BMI 50.0-59.9, adult Z68.43 [facility] [address] [place] [id number] [address] [place] [address] Jul, 2018 Fatty liver K76.0 ; Restrict jean-paul lung disease J98.4 ; Diastolic dysfunction I51.9 ; Body mass index (bmi) 50-59.9 , adult Z68.43 and Chronic prescription opiate use Z79.899 [facility] [address] [place] [id number] [address] [place] [address] Jul, Generalized anxiety disorder F41.1 [facility] [address] [place] [id number] [address] [place] [address] Jul, Generalized anxiety disorder F41.1 [facility] [address] [address] Jul, Primary osteoarthritis invol ving multiple joints M15.0 [facility] [address] [place] [id number] [address] [place] [address] Jun, Generalized anxiety disorder F41.1 [facility] [address] [place] [id number] [address] [place] [address] Jun, [facility] [address] [place] [id number] [address] [place] [address] Jun, Mixed hyperlipidemia E78.2 [facility] [address] [place] [id number] [address] [place] [address] Jun, Generalized anxiety disorder F41.1 [facility] [address] [place] [id number] [address] [place] [address] Jun, Generalized anxiety disorder F41.1 ; Major depressive disorder, recurrent episode, mild degree F33.0 and Habitual self-excoriation F42.4 [facility] [address] [place] [address] [id number] [address] [place] [address] May, [facility] [address] [place] [address] [id number] [address] [place] [address] May, Generalized anxiety disorder F41.1 [facility] [address] [place] [address] [id number] [address] [place] [address] May, Generalized anxiety disorder F41.1 [facility] [address] [place] [address] [id number] [address] [place] [address] May, Primary osteoarthritis invol ving multiple joints M15.0 [facility] [address] [place] [address] [id number] [address] [place] [address] Apr, Major depressive disorder, r ecurrent episode, mild degree F33.0 ; Generalized anxiety disorder F41.1 and Excoriation, neurotic L98.1 [facility] [address] [place] [address] [id number] [address] [place] [address] Apr, Primary osteoarthritis invol ving multiple joints M15.0 [facility] [address] [place] [address] [id number] [address] [place] [address] Apr, Essential hypertension I10 a nd Mixed hyperlipidemia E78.2 [facility] [address] [place] [address] [id number] [address] [place] [address] Apr, Generalized anxiety disorder F41.1 ; Major depressive disorder, recurrent episode, mild degree F33.0 and Habitual self-excoriation F42.4 [facility] [address] [place] [address] [id number] [address] [place] [address] Mar, Generalized anxiety disorder F41.1 ; Major depressive disorder, recurrent episode, mild degree F33.0 and Habitual self-excoriation F42.4 [facility] [address] [place] [address] [id number] [address] [place] [address] Mar, Skin lesion L98.9 [facility] [address] [facility] [id number] [address] [place] [address] Mar, Primary osteoarthritis invol ving multiple joints M15.0 [facility] [address] [facility] [id number] [address] [place] [address] Mar, [facility] [address] [facility] [id number] [address] [place] [address] Mar, [facility] [address] [facility] [id number] [address] [place] [address] Feb, Major depressive disorder, r ecurrent episode, mild degree F33.0 ; Generalized anxiety disorder F41.1 and Excoriation, neurotic L98.1 [place] [address] [place] [id number] [address] [place] [id number] Feb, Generalized anxiety disorder F41.1 [place] [address] [place] [id number] [address] [place] [id number] Feb, Primary osteoarthritis invol ving multiple joints M15.0 [facility] [address] [facility] [id number] [address] [place] [address] Jan, [place] [address] [place] [id number] [address] [place] [address] Jan, Essential hypertension I10 ; Splenic artery aneurysm I72.8 ; Liver mass R16.0 ; Restrictive lung disease J98.4 ; Primary osteoarthritis involving multiple joints M15.0 ; Mixed hyperlipidemia E78.2 ; Bilateral carpal tunnel syndrome G56.03 ; Body mass index (bmi) 50-59.9 , adult Z68.43 and History of tobacco use Z87.891 [place] [address] [place] [id number] [address] [place] [id number] Jan, Major depressive disorder, r ecurrent episode, mild degree F33.0 and Generalized anxiety disorder F41.1 [facility] [address] [place] [id number] [address] [place] [address] Jan, [place] [address] [facility] [id number] [address] [place] [address] Jan, Generalized anxiety disorder F41.1 and Major depressive disorder, recurrent episode, mild degree F33.0 [facility] [address] [facility] [id number] [address] [place] [address] Dec, Primary osteoarthritis invol ving multiple joints M15.0 [facility] [address] [facility] [id number] [address] [place] [address] Dec, Generalized anxiety disorder F41.1 [place] [address] [facility] [id number] [address] [place] [address] Dec, [place] [address] [facility] [id number] [address] [place] [address] Dec, Major depressive disorder, r ecurrent episode, mild degree F33.0 and Generalized anxiety disorder F41.1 [place] [address] [facility] [id number] [address] [place] [id number] Dec, Generalized anxiety disorder F41.1 and Major depressive disorder, recurrent episode, mild degree F33.0 [place] [address] [facility] [id number] [address] [place] [address] November, Mild major depression F32.0 and Primary osteoarthritis involving multiple joints M15.0 [place] [address] [facility] [id number] [address] [place] [id number] November, Major depressive disorder, r ecurrent episode, mild degree F33.0 and Generalized anxiety disorder F41.1 [place] [address] [facility] [id number] [address] [place] [address] November, Primary osteoarthritis invol ving multiple joints M15.0 ; Essential hypertension I10 ; Prediabetes R73.09 ; Mixed hyperlipidemia E78.2 ; Chronic prescription benzodiazepine use Z79.899 ; Chronic prescription opiate use Z79.899 ; Tobacco use Z72.0 ; Bilateral carpal tunnel syndrome G56.03 and Body mass index (bmi) 50-59.9 , adult Z68.43 [place] [address] [facility] [id number] [address] [place] [address] November, Primary osteoarthritis invol ving multiple joints M15.0 and Mild major depression F32.0 [facility] [address] [facility] [id number] [address] [place] [id number] Oct, [facility] [address] [place] [id number] [address] [place] [address] Oct, Primary osteoarthritis invol ving multiple joints M15.0 ; Essential hypertension I10 ; Prediabetes R73.09 ; Chronic prescription benzodiazepine use Z79.899 ; Chronic prescription opiate use Z79.899 ; Tobacco use Z72.0 ; Mixed hyperlipidemia E78.2 ; Bilateral carpal tunnel syndrome G56.03 ; Body mass index (bmi) 50-59.9 , adult Z68.43 and Encounter for immunization Z23 [facility] [address] [place] [id number] [address] [place] [address] Oct, Major depressive disorder, r ecurrent episode, mild degree F33.0 and Generalized anxiety disorder F41.1 [facility] [address] [facility] [id number] [address] [place] [address] Oct, [facility] [address] [facility] [id number] [address] [place] [address] Oct, [facility] [address] [facility] [id number] [address] [place] [address] Sep, Mild major depression F32.0 [facility] [address] [facility] [id number] [address] [place] [address] Sep, [facility] [address] [facility] [id number] [address] [place] [phone] Sep, Mild major depression F32.0 and Generalized anxiety disorder F41.1 [facility] [address] [facility] [id number] [address] [place] [address] Sep, Paresthesia of both hands R2 0.2 and Cervical radiculopathy M54.12 [facility] [address] [place] [id number] [address] [place] [address] Sep, [facility] [address] [address] Sep, [facility] [address] [address] Aug, Paresthesia of both hands R2 0.2 and Neck pain M54.2 [facility] [address] [address] Aug, [facility] [address] [place] [id number] [place] [address] Jul, Neck pain M54.2 and Paresthe eddie of both hands R20.2 [place] [address] [place] [id number] [place] [address] Jul, Proteinuria, unspecified typ e R80.9 [place] [address] [address] Jul, Proteinuria, unspecified typ e R80.9 [place] [address] [address] Jul, [place] [address] [address] Jul, Other specified transient ce rebral ischemias G45.8 [place] [address] [address] Jun, Diastolic dysfunction I51.9 [place] [address] [address] Jun, Diastolic dysfunction I51.9 [place] [address] [address] Jun, Major depressive disorder, s david episode, unspecified F32.9 and Anxiety disorder, unspecified F41.9 [place] [address] [address] Jun, [facility] [address] [place] [id number] [address] [place] [address] Jun, [facility] [address] [place] [id number] [address] [place] [address] May, Moderate major depression F3 2.1 and Generalized anxiety disorder F41.1 [facility] [address] [place] [id number] [place] [address] 16 May, 2016 Major depressive disorder, s david episode, unspecified F32.9 and Anxiety disorder, unspecified F41.9 [facility] [address] [place] [id number] [place] [address] 15 May, 2016 [facility] [address] [place] [id number] [place] [address] 14 May, 2016 Liver enzyme elevation R74.8 [facility] [address] [address] May, Liver enzyme elevation R74.8 [facility] [address] [place] [id number] [place] [address] 10 May, 2016 Shortness of breath on exert ion R06.02 ; Essential hypertension I10 ; Mixed hyperlipidemia E78.2 and Tobacco use Z72.0 [facility] [address] [place] [id number] [address] [place] [address] May, [facility] [address] [place] [id number] [address] [place] [phone] May, [facility] [address] [place] [id number] [address] [place] [address] Apr, Anxiety F41.9 and Depression F32.9 [facility] [address] [place] [id number] [address] [place] [id number] Apr, [facility] [address] [place] [id number] [address] [place] [address] Apr, [facility] [address] [place] [id number] [address] [place] [phone] 22 Mar, 2016 Depression F32.9 and Anxiety F41.9 [facility] [address] [place] [address] [id number] [address] [place] [id number] 08 Mar, 2016 Anxiety F41.9 and Depression F32.9 [facility] [address] [place] [address] [id number] [address] [place] [id number] 06 Mar, 2016 Well woman exam (no gynecolo gical exam) Z00.00 [facility] [address] [place] [address] [id number] [address] [place] [address] Mar, [facility] [address] [place] [address] [id number] [address] [place] [address] Mar, [facility] [address] [id number] [address] [place] [id number] Feb, Dental caries K02.9 [facility] [address] [place] [address] [id number] [address] [place] [id number] Feb, [facility] [address] [place] [address] [id number] [address] [place] [address] Feb, Anxiety F41.9 and Depression F32.9 [facility] [address] [id number] [address] [place] [id number] Feb, Dental examination Z01.20 [facility] [address] [place] [address] [id number] [address] [place] [id number] Feb, [facility] [address] [place] [address] [id number] [address] [place] [phone] Feb, [facility] [address] [place] [address] [id number] [address] [place] [address] Feb, Anxiety F41.9 and Depression F32.9 [facility] [address] [place] [address] [id number] [address] [place] [id number] Jan, Severe episode of recurrent major depressive disorder, without psychotic features F33.2 and Anxiety disorder, unspecified F41.9 [facility] [address] [place] [address] [id number] [address] [place] [address] Jan, [facility] [address] [place] [address] [id number] [address] [place] [phone] Dec, [facility] [address] [place] [address] [id number] [address] [place] [id number] Dec, Anxiety F41.9 and Depression F32.9 [facility] [address] [place] [address] [id number] [address] [place] [phone] 24 Dec, 2015 Other specified transient ce rebral ischemias G45.8 and Nocturnal hypoxia G47.34 [facility] [address] [place] [address] [id number] [address] [place] [id number] 18 Dec, 2015 [facility] [address] [place] [address] [id number] [address] [place] [phone] 17 Dec, 2015 Other specified transient ce rebral ischemias G45.8 [facility] [address] [place] [address] [id number] [address] [place] [id number] 16 Dec, 2015 Severe episode of recurrent major depressive disorder, without psychotic features F33.2 and Anxiety disorder, unspecified F41.9 [facility] [address] [place] [address] [id number] [address] [place] [address] Dec, [facility] [address] [place] [address] [id number] [address] [place] [id number] Dec, Anxiety F41.9 and Depression F32.9 [facility] [address] [place] [address] [id number] [address] [place] [id number] 07 Dec, 2015 Anxiety F41.9 and Depression F32.9 [facility] [address] [place] [address] [id number] [address] [place] [id number] Dec, [facility] [address] [place] [address] [id number] [address] [place] [id number] November, Anxiety F41.9 and Depression F32.9 [facility] [address] [facility] [id number] [address] [place] [id number] November, Severe episode of recurrent major depressive disorder, without psychotic features F33.2 [place] [address] [id number] November, Mixed hyperlipidemia E78.2 [place] [address] [id number] November, Anxiety F41.9 and Depression F32.9 [place] [address] [id number] 05 Nov, 2015 Prediabetes R73.09 ; Essenti al hypertension I10 ; Anxiety F41.9 ; Depression F32.9 ; Gastroesophageal reflux disease, esophagitis presence not specified K21.9 ; Primary osteoarthritis involving multiple joints M15.0 ; History of renal cell cancer Z85.528 ; Postnasal drip R09.82 ; Allergic rhinitis, unspecified J30.9 and Tobacco use Z72.0 [place] [address] [id number] Oct, Anxiety F41.9 and Depression F32.9 [place] [address] [id number] 07 Oct, 2015 [place] [address] [id number] Oct, [place] [address] [id number] 14 Sep, 2015 Splenic artery aneurysm I72. 8 [place] [address] [id number] 10 Sep, 2015 Depression F32.9 ; Anxiety F 41.9 ; Chronic prescription benzodiazepine use Z79.899 and Splenic artery aneurysm I72.8 [place] [address] [id number] 10 Sep, 2015 Depression F32.9 and Anxiety F41.9 [place] [address] [id number] Sep, [facility] [address] [place] [id number] [place] [id number] 18 Aug, 2015 Dehydration E86.0 ; Diarrhea R19.7 ; Nausea R11.0 and Generalized abdominal pain R10.84 [facility] [address] [place] [id number] [place] [id number] Aug, [facility] [address] [place] [id number] [place] [id number] Jul, Depression F32.9 [facility] [address] [place] [id number] [place] [id number] Jul, [facility] [address] [id number] Jul, Anxiety F41.9 and Depression F32.9 [facility] [address] [id number] Jul, [facility] [address] [place] [id number] [place] [id number] Jun, Epigastric pain R10.13 [facility] [address] [place] [id number] [place] [id number] Jun, [facility] [address] [place] [id number] [place] [id number] Jun, [facility] [address] [place] [id number] [place] [id number] May, [facility] [address] [place] [id number] [place] [id number] May, [facility] [address] [id number] Apr, [facility] [address] [place] [id number] [place] [id number] Mar, Anxiety state, unspecified 3 00.00 ; Depression 311 ; Prediabetes 790.29 ; Generalized osteoarthrosis, involving multiple sites 715.09 and Hypertension 401.9 [facility] [address] [id number] [address] [place] [address], [place] [address] Mar, [facility] [address] [place] [address] [id number] [address] [place] [id number] Feb, [facility] [address] [place] [address] [id number] [address] [place] [id number] Jan, [facility] [address] [place] [address] [id number] [address] [place] [id number] Jan, [facility] [address] [place] [address] [id number] [address] [place] [id number] Jan, Generalized osteoarthrosis, involving multiple sites 715.09 [facility] [address] [place] [address] [id number] [address] [place] [id number] Jan, Hx of renal cell cancer V10. 52 [facility] [address] [place] [address] [id number] [address] [place] [id number] Dec, Generalized osteoarthrosis, involving multiple sites 715.09 and Hx of renal cell cancer V10.52 [facility] [address] [place] [address] [id number] [address] [place] [id number] Dec, [facility] [address] [place] [address] [id number] [address] [place] [id number] Dec, [facility] [address] [place] [address] [id number] [address] [place] [id number] November, [facility] [address] [place] [address] [id number] [address] [place] [id number] Oct, [facility] [address] [place] [address] [id number] [address] [place] [id number] Oct, [facility] [address] [place] [address] [id number] [address] [place] [id number] Sep, [facility] [address] [place] [address] [id number] [address] [place] [id number] Sep, [facility] [address] [facility] [id number] [address] [place] [id number] Sep, [facility] [address] [facility] [id number] [address] [place] [id number] Sep, [facility] [address] [facility] [id number] [address] [place] [id number] Aug, [facility] [address] [facility] [id number] [address] [place] [id number] Aug, IMMUNIZATIONS No Known Immunizations SOCIAL HISTORY Never Assessed REASON FOR VISIT MAYRA -- FY Only PLAN OF CARE VITAL SIGNS MEDICATIONS Unknown [...]
--- OUTSIDE RECORDS SUMMARY | 2020-02-08 07:17 | XMS REPORT ---
Author Author Emilee MAY Organization [facility] Address [address] [place] [address] Care Team Providers Care Gaming Host Name Role Phone LALOJEZALBANIA Unavailable PROBLEMS Type Condition ICD9-CM Code INL88-IK Code Onset Dates Condition S tatus SNOMED Code Problem Mixed hyperlipidemia E78.2 Active 076147648 Problem Fatty liver K76.0 Active 64096665 7 Problem Obstructive sleep apnea G47.33 Active 48271759 Problem Allergic rhinitis, unspecified J30.9 Active 73218595 Problem Essential hypertension I10 Active 68575401 Problem History of renal cell cancer Z85.528 A ctive 735344295 Problem Prediabetes R73.09 Active 0292510 Problem Diastolic dysfunction I51.9 Active 8286109 Problem Body mass index (bmi) 50-59.9 , adult Z68.43 Active 469166499 Problem Paresthesia of both hands R20.2 Acti ve 206843346 Problem Habitual self-excoriation 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 Acti ve 564216411 Problem BMI 50.0-59.9, adult Z68.43 Active 416200958 Problem Restrictive lung disease J98.4 Activ e 29977017 Problem Splenic artery aneurysm I72.8 Active 88026340 Problem Liver mass R16.0 Active 858806454 Problem Generalized anxiety disorder F41.1 A ctive 65586279 Problem Major depressive disorder, recurrent episode, mild degree F33.0 Active 523640930 Problem Excoriation, neurotic L98.1 Active 08634686 Problem History of tobacco use Z87.891 Active 3692582873568 Problem Primary osteoarthritis involving multiple joints M 15.0 Active 840264508 Problem Isolated proteinuria without specific morphologic lesion R80.0 Active 40575723 Problem 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 Active 246953386 Problem Pulmonary emphysema, unspecified emphysema type J4 3.9 Active 78605103 Problem Chronic prescription opiate use Z79.899 Active 312638312 Problem Tobacco use Z72.0 Active 58212362 0 Problem Bilateral carpal tunnel syndrome G56.03 Active 38156748 Problem Chronic prescription benzodiazepine use Z79.899 Active 236373758 ALLERGIES No Information ENCOUNTERS Encounter Location Date Diagnosis [facility] [address] [facility] [id number] [address] [place] [phone] May, [facility] [address] [facility] [id number] [address] [place] [address] Mar, [facility] [address] [facility] [id number] [address] [place] [address] Mar, [facility] [address] [facility] [id number] [address] [place] [address] Feb, Generalized anxiety disorder F41.1 ; Major depressive disorder, recurrent episode, mild degree F33.0 and Habitual self-excoriation F42.4 [facility] [address] [facility] [id number] [address] [place] [phone] Feb, Generalized anxiety disorder F41.1 and Major depressive disorder, recurrent episode, mild degree F33.0 [facility] [address] [facility] [id number] [address] [place] [address] Feb, [facility] [address] [facility] [id number] [address] [place] [address] Feb, Restrictive lung disease J98 .4 ; Pulmonary emphysema, unspecified emphysema type J43.9 and Body mass index (bmi) 50-59.9 , adult Z68.43 [facility] [address] [facility] [id number] [address] [place] [address] Feb, Generalized anxiety disorder F41.1 ; Major depressive disorder, recurrent episode, mild degree F33.0 and Habitual self-excoriation F42.4 [facility] [address] [facility] [id number] [address] [place] [address] Feb, [facility] [address] [facility] [id number] [address] [place] [phone] Jan, [facility] [address] [facility] [id number] [address] [place] [phone] Jan, Pulmonary emphysema, unspeci fied emphysema type J43.9 [facility] [address] [id number] [address] [place] [id number] Jan, Dental examination Z01.20 an d Dental caries K02.9 [facility] [address] [facility] [id number] [address] [place] [phone] Jan, Generalized anxiety disorder F41.1 and Major depressive disorder, recurrent episode, mild degree F33.0 [facility] [address] [facility] [id number] [address] [place] [phone] Jan, [facility] [address] [facility] [id number] [address] [place] [address] Jan, Generalized anxiety disorder F41.1 [facility] [address] [facility] [id number] [address] [place] [address] Jan, Oral abscess K12.2 and BMI 5 0.0-59.9, adult Z68.43 [facility] [address] [facility] [id number] [address] [place] [address] Dec, BMI 50.0-59.9, adult Z68.43 and Weight loss counseling, encounter for Z71.3 [facility] [address] [facility] [id number] [address] [place] [address] Dec, [facility] [address] [facility] [id number] [address] [place] [id number] Dec, [facility] [address] [facility] [id number] [address] [place] [phone] November, [facility] [address] [facility] [id number] [address] [place] [phone] November, [facility] [address] [facility] [id number] [address] [place] [address] November, Pulmonary emphysema, unspeci fied emphysema type J43.9 ; Restrictive lung disease J98.4 ; BMI 50.0-59.9, adult Z68.43 ; History of renal cell cancer Z85.528 ; Essential hypertension I10 ; Mixed hyperlipidemia E78.2 and Fatty liver K76.0 [facility] [address] [facility] [id number] [address] [place] [address] November, Generalized anxiety disorder F41.1 [facility] [address] [facility] [id number] [address] [place] [phone] November, Generalized anxiety disorder F41.1 and Major depressive disorder, recurrent episode, mild degree F33.0 [facility] [address] [facility] [id number] [address] [place] [address] November, Generalized anxiety disorder F41.1 ; Major depressive disorder, recurrent episode, mild degree F33.0 and Habitual self-excoriation F42.4 [facility] [address] [facility] [id number] [address] [place] [phone] November, [facility] [address] [facility] [id number] [address] [place] [address] Oct, Generalized anxiety disorder F41.1 [facility] [address] [facility] [id number] [address] [place] [phone] Oct, [facility] [address] [facility] [id number] [address] [place] [phone] Oct, Influenza-like illness R69 [facility] [address] [facility] [id number] [address] [place] [phone] Sep, Influenza-like illness R69 [facility] [address] [facility] [id number] [address] [place] [address] Sep, Generalized anxiety disorder F41.1 [facility] [address] [facility] [id number] [address] [place] [address] Sep, [facility] [address] [place] [id number] [address] [place] [address] Aug, [facility] [id number] [place] [address] 07 Aug, 2017 [facility] [address] [address] Aug, Generalized anxiety disorder F41.1 [facility] [address] [facility] [id number] [address] [place] [address] Aug, Influenza-like illness R69 a nd BMI 50.0-59.9, adult Z68.43 [facility] [address] [place] [id number] [address] [place] [address] Jul, 2018 Fatty liver K76.0 ; Restrict jean-paul lung disease J98.4 ; Diastolic dysfunction I51.9 ; Body mass index (bmi) 50-59.9 , adult Z68.43 and Chronic prescription opiate use Z79.899 [facility] [address] [place] [id number] [address] [place] [address] Jul, Generalized anxiety disorder F41.1 [facility] [address] [place] [id number] [address] [place] [address] Jul, Generalized anxiety disorder F41.1 [facility] [address] [address] Jul, Primary osteoarthritis invol ving multiple joints M15.0 [facility] [address] [place] [id number] [address] [place] [address] Jun, Generalized anxiety disorder F41.1 [facility] [address] [place] [id number] [address] [place] [address] Jun, [facility] [address] [place] [id number] [address] [place] [phone] Jun, Mixed hyperlipidemia E78.2 [facility] [address] [place] [id number] [address] [place] [address] Jun, Generalized anxiety disorder F41.1 [facility] [address] [place] [id number] [address] [place] [address] Jun, Generalized anxiety disorder F41.1 ; Major depressive disorder, recurrent episode, mild degree F33.0 and Habitual self-excoriation F42.4 [facility] [address] [id number] [address] [place] [address] May, [facility] [address] [id number] [address] [place] [address] May, Generalized anxiety disorder F41.1 [facility] [address] [id number] [address] [place] [address] May, Generalized anxiety disorder F41.1 [facility] [address] [id number] [address] [place] [address] May, Primary osteoarthritis invol ving multiple joints M15.0 [facility] [address] [id number] [address] [place] [address] Apr, Major depressive disorder, r ecurrent episode, mild degree F33.0 ; Generalized anxiety disorder F41.1 and Excoriation, neurotic L98.1 [facility] [address] [id number] [address] [place] [address] Apr, Primary osteoarthritis invol ving multiple joints M15.0 [facility] [address] [id number] [address] [place] [address] Apr, Essential hypertension I10 a nd Mixed hyperlipidemia E78.2 [facility] [address] [id number] [address] [place] [address] Apr, Generalized anxiety disorder F41.1 ; Major depressive disorder, recurrent episode, mild degree F33.0 and Habitual self-excoriation F42.4 [facility] [address] [id number] [address] [place] [address] Mar, Generalized anxiety disorder F41.1 ; Major depressive disorder, recurrent episode, mild degree F33.0 and Habitual self-excoriation F42.4 [facility] [address] [id number] [address] [place] [address] Mar, Skin lesion L98.9 [facility] [address] [facility] [id number] [address] [place] [phone] Mar, Primary osteoarthritis invol ving multiple joints M15.0 [facility] [address] [facility] [id number] [address] [place] [address] Mar, [facility] [address] [facility] [id number] [address] [place] [phone] Mar, [facility] [address] [facility] [id number] [address] [place] [address] Feb, Major depressive disorder, r ecurrent episode, mild degree F33.0 ; Generalized anxiety disorder F41.1 and Excoriation, neurotic L98.1 [place] [address] [place] [id number] [address] [place] [address] Feb, Generalized anxiety disorder F41.1 [place] [address] [place] [id number] [address] [place] [address] Feb, Primary osteoarthritis invol ving multiple joints M15.0 [facility] [address] [facility] [id number] [address] [place] [address] Jan, [place] [address] [place] [id number] [address] [place] [id number] Jan, Essential hypertension I10 ; Splenic artery aneurysm I72.8 ; Liver mass R16.0 ; Restrictive lung disease J98.4 ; Primary osteoarthritis involving multiple joints M15.0 ; Mixed hyperlipidemia E78.2 ; Bilateral carpal tunnel syndrome G56.03 ; Body mass index (bmi) 50-59.9 , adult Z68.43 and History of tobacco use Z87.891 [place] [address] [place] [id number] [address] [place] [address] Jan, Major depressive disorder, r ecurrent episode, mild degree F33.0 and Generalized anxiety disorder F41.1 [facility] [address] [place] [id number] [address] [place] [address] Jan, [place] [address] [facility] [facility] [id number] [address] [place] [address] Jan, Generalized anxiety disorder F41.1 and Major depressive disorder, recurrent episode, mild degree F33.0 [facility] [address] [facility] [id number] [address] [place] [address] Dec, Primary osteoarthritis invol ving multiple joints M15.0 [facility] [address] [facility] [id number] [address] [place] [id number] Dec, Generalized anxiety disorder F41.1 [place] [address] [facility] [facility] [id number] [address] [place] [address] Dec, [place] [address] [facility] [facility] [id number] [address] [place] [address] Dec, Major depressive disorder, r ecurrent episode, mild degree F33.0 and Generalized anxiety disorder F41.1 [place] [address] [facility] [address] [facility] [id number] [address] [place] [address] Dec, Generalized anxiety disorder F41.1 and Major depressive disorder, recurrent episode, mild degree F33.0 [place] [address] [facility] [facility] [id number] [address] [place] [address] November, Mild major depression F32.0 and Primary osteoarthritis involving multiple joints M15.0 [place] [address] [facility] [facility] [id number] [address] [place] [phone] November, Major depressive disorder, r ecurrent episode, mild degree F33.0 and Generalized anxiety disorder F41.1 [place] [address] [facility] [facility] [id number] [address] [place] [address] November, Primary osteoarthritis invol ving multiple joints M15.0 ; Essential hypertension I10 ; Prediabetes R73.09 ; Mixed hyperlipidemia E78.2 ; Chronic prescription benzodiazepine use Z79.899 ; Chronic prescription opiate use Z79.899 ; Tobacco use Z72.0 ; Bilateral carpal tunnel syndrome G56.03 and Body mass index (bmi) 50-59.9 , adult Z68.43 [place] [id number] [facility] [facility] [id number] [address] [place] [address] November, Primary osteoarthritis invol ving multiple joints M15.0 and Mild major depression F32.0 [facility] [address] [facility] [id number] [address] [place] [address] Oct, [facility] [address] [place] [id number] [address] [place] [address] Oct, Primary osteoarthritis invol ving multiple joints M15.0 ; Essential hypertension I10 ; Prediabetes R73.09 ; Chronic prescription benzodiazepine use Z79.899 ; Chronic prescription opiate use Z79.899 ; Tobacco use Z72.0 ; Mixed hyperlipidemia E78.2 ; Bilateral carpal tunnel syndrome G56.03 ; Body mass index (bmi) 50-59.9 , adult Z68.43 and Encounter for immunization Z23 [facility] [address] [place] [id number] [address] [place] [address] Oct, Major depressive disorder, r ecurrent episode, mild degree F33.0 and Generalized anxiety disorder F41.1 [facility] [address] [facility] [id number] [address] [place] [address] Oct, [facility] [address] [facility] [id number] [address] [place] [address] Oct, [facility] [address] [facility] [id number] [address] [place] [address] Sep, Mild major depression F32.0 [facility] [address] [facility] [id number] [address] [place] [address] Sep, [facility] [address] [facility] [id number] [address] [place] [address] Sep, Mild major depression F32.0 and Generalized anxiety disorder F41.1 [facility] [address] [facility] [id number] [address] [place] [address] Sep, Paresthesia of both hands R2 0.2 and Cervical radiculopathy M54.12 [facility] [address] [place] [id number] [address] [place] [address] Sep, [facility] [address] [address] Sep, [facility] [address] [address] Aug, Paresthesia of both hands R2 0.2 and Neck pain M54.2 [facility] [address] [address] Aug, [facility] [address] [place] [id number] [place] [address] Jul, Neck pain M54.2 and Paresthe eddie of both hands R20.2 [place] [address] [place] [id number] [place] [address] Jul, Proteinuria, unspecified typ e R80.9 [place] [address] [address] Jul, Proteinuria, unspecified typ e R80.9 [place] [address] [address] Jul, [place] [address] [address] Jul, Other specified transient ce rebral ischemias G45.8 [place] [address] [address] Jun, Diastolic dysfunction I51.9 [place] [address] [address] Jun, Diastolic dysfunction I51.9 [place] [address] [address] Jun, Major depressive disorder, s david episode, unspecified F32.9 and Anxiety disorder, unspecified F41.9 [place] [address] [address] Jun, [facility] [address] [place] [id number] [address] [place] [address] Jun, [facility] [address] [place] [id number] [address] [place] [address] May, Moderate major depression F3 2.1 and Generalized anxiety disorder F41.1 [facility] [address] [place] [id number] [place] [address] 16 May, 2016 Major depressive disorder, s david episode, unspecified F32.9 and Anxiety disorder, unspecified F41.9 [facility] [address] [place] [id number] [place] [address] 15 May, 2016 [facility] [address] [place] [id number] [place] [address] 14 May, 2016 Liver enzyme elevation R74.8 [facility] [address] [address] May, Liver enzyme elevation R74.8 [facility] [address] [place] [id number] [place] [address] 10 May, 2016 Shortness of breath on exert ion R06.02 ; Essential hypertension I10 ; Mixed hyperlipidemia E78.2 and Tobacco use Z72.0 [facility] [address] [place] [id number] [address] [place] [address] May, [facility] [address] [place] [id number] [address] [place] [address] May, [facility] [address] [place] [id number] [address] [place] [address] Apr, Anxiety F41.9 and Depression F32.9 [facility] [address] [place] [id number] [address] [place] [address] Apr, [facility] [address] [place] [id number] [address] [place] [phone] Apr, [facility] [address] [place] [id number] [address] [place] [phone] 22 Mar, 2016 Depression F32.9 and Anxiety F41.9 [facility] [address] [id number] [address] [place] [phone] 08 Mar, 2016 Anxiety F41.9 and Depression F32.9 [facility] [address] [id number] [address] [place] [id number] 06 Mar, 2016 Well woman exam (no gynecolo gical exam) Z00.00 [facility] [address] [id number] [address] [place] [address] Mar, [facility] [address] [id number] [address] [place] [address] Mar, [facility] [address] [id number] [address] [place] [id number] Feb, Dental caries K02.9 [facility] [address] [id number] [address] [place] [address] Feb, [facility] [address] [id number] [address] [place] [phone] Feb, Anxiety F41.9 and Depression F32.9 [facility] [address] [id number] [address] [place] [id number] Feb, Dental examination Z01.20 [facility] [address] [id number] [address] [place] [phone] Feb, [facility] [address] [id number] [address] [place] [phone] Feb, [facility] [address] [id number] [address] [place] [phone] Feb, Anxiety F41.9 and Depression F32.9 [facility] [address] [id number] [address] [place] [phone] Jan, Severe episode of recurrent major depressive disorder, without psychotic features F33.2 and Anxiety disorder, unspecified F41.9 [facility] [address] [id number] [address] [place] [id number] Jan, [facility] [address] [id number] [address] [place] [id number] Dec, [facility] [address] [id number] [address] [place] [phone] Dec, Anxiety F41.9 and Depression F32.9 [facility] [address] [id number] [address] [place] [id number] 24 Dec, 2015 Other specified transient ce rebral ischemias G45.8 and Nocturnal hypoxia G47.34 [facility] [address] [id number] [address] [place] [id number] 18 Dec, 2015 [facility] [address] [id number] [address] [place] [id number] 17 Dec, 2015 Other specified transient ce rebral ischemias G45.8 [facility] [address] [id number] [address] [place] [id number] 16 Dec, 2015 Severe episode of recurrent major depressive disorder, without psychotic features F33.2 and Anxiety disorder, unspecified F41.9 [facility] [address] [id number] [address] [place] [phone] Dec, [facility] [address] [id number] [address] [place] [id number] Dec, Anxiety F41.9 and Depression F32.9 [facility] [address] [id number] [address] [place] [id number] 07 Dec, 2015 Anxiety F41.9 and Depression F32.9 [facility] [address] [id number] [address] [place] [id number] Dec, [facility] [address] [id number] [address] [place] [id number] November, Anxiety F41.9 and Depression F32.9 [facility] [address] [facility] [id number] [address] [place] [id number] November, Severe episode of recurrent major depressive disorder, without psychotic features F33.2 [place] [address] [id number] November, Mixed hyperlipidemia E78.2 [place] [address] [id number] November, Anxiety F41.9 and Depression F32.9 [place] [address] [id number] 05 Nov, 2015 Prediabetes R73.09 ; Essenti al hypertension I10 ; Anxiety F41.9 ; Depression F32.9 ; Gastroesophageal reflux disease, esophagitis presence not specified K21.9 ; Primary osteoarthritis involving multiple joints M15.0 ; History of renal cell cancer Z85.528 ; Postnasal drip R09.82 ; Allergic rhinitis, unspecified J30.9 and Tobacco use Z72.0 [place] [address] [id number] Oct, Anxiety F41.9 and Depression F32.9 [place] [address] [id number] 07 Oct, 2015 [place] [address] [address] Oct, [place] [address] [id number] 14 Sep, 2015 Splenic artery aneurysm I72. 8 [place] [address] [id number] 10 Sep, 2015 Depression F32.9 ; Anxiety F 41.9 ; Chronic prescription benzodiazepine use Z79.899 and Splenic artery aneurysm I72.8 [place] [address] [id number] 10 Sep, 2015 Depression F32.9 and Anxiety F41.9 [place] [address] [id number] Sep, [facility] [address] [place] [id number] [address] [place] [id number] 18 Aug, 2015 Dehydration E86.0 ; Diarrhea R19.7 ; Nausea R11.0 and Generalized abdominal pain R10.84 [facility] [address] [place] [id number] [address] [place] [phone] Aug, [facility] [address] [place] [id number] [place] [id number] Jul, Depression F32.9 [facility] [address] [place] [id number] [place] [id number] Jul, [facility] [address] [id number] Jul, Anxiety F41.9 and Depression F32.9 [facility] [address] [id number] Jul, [facility] [address] [place] [id number] [address] [place] [id number] Jun, Epigastric pain R10.13 [facility] [address] [place] [id number] [address] [place] [id number] Jun, [facility] [address] [place] [id number] [address] [place] [id number] Jun, [facility] [address] [place] [id number] [address] [place] [phone] May, [facility] [address] [place] [id number] [address] [place] [id number] May, [facility] [address] [id number] Apr, [facility] [address] [place] [id number] [address] [place] [id number] Mar, Anxiety state, unspecified 3 00.00 ; Depression 311 ; Prediabetes 790.29 ; Generalized osteoarthrosis, involving multiple sites 715.09 and Hypertension 401.9 [facility] [address] [id number] [address] [place] [address], [place] [address] Mar, [facility] [address] [id number] [address] [place] [id number] Feb, [facility] [address] [id number] [address] [place] [id number] Jan, [facility] [address] [id number] [address] [place] [id number] Jan, [facility] [address] [id number] [address] [place] [id number] Jan, Generalized osteoarthrosis, involving multiple sites 715.09 [facility] [address] [id number] [address] [place] [id number] Jan, Hx of renal cell cancer V10. 52 [facility] [address] [id number] [address] [place] [id number] Dec, Generalized osteoarthrosis, involving multiple sites 715.09 and Hx of renal cell cancer V10.52 [facility] [address] [id number] [address] [place] [phone] Dec, [facility] [address] [id number] [address] [place] [phone] Dec, [facility] [address] [id number] [address] [place] [id number] November, [facility] [address] [id number] [address] [place] [id number] Oct, [facility] [address] [id number] [address] [place] [id number] Oct, [facility] [address] [id number] [address] [place] [phone] Sep, [facility] [address] [id number] [address] [place] [id number] Sep, [facility] [address] [facility] [id number] [address] [place] [id number] Sep, [facility] [address] [facility] [facility] [id number] [address] [place] [id number] Sep, [facility] [address] [facility] [facility] [id number] [address] [place] [id number] Aug, [facility] [address] [facility] [id number] [address] [place] [id number] Aug, IMMUNIZATIONS No Known Immunizations SOCIAL HISTORY Never Assessed REASON FOR VISIT Prior Authorization Request-Hydrocodone PLAN OF CARE VITAL SIGNS MEDICATIONS Unknown [...]
--- OUTSIDE RECORDS SUMMARY | 2020-02-08 07:17 | XMS REPORT ---
Author Author Emilee MAY Organization [facility] Address [address] [place] [address] Care Team Providers Care Satellite Manager Name Role Phone LALOJEZALBANIA Unavailable PROBLEMS Type Condition ICD9-CM Code JIU75-CE Code Onset Dates Condition S tatus SNOMED Code Problem Mixed hyperlipidemia E78.2 Active 533887036 Problem Fatty liver K76.0 Active 27036245 7 Problem Obstructive sleep apnea G47.33 Active 16404362 Problem Allergic rhinitis, unspecified J30.9 Active 60766726 Problem Essential hypertension I10 Active 80715885 Problem History of renal cell cancer Z85.528 A ctive 114297262 Problem Prediabetes R73.09 Active 5917110 Problem Diastolic dysfunction I51.9 Active 5316756 Problem Body mass index (bmi) 50-59.9 , adult Z68.43 Active 288772334 Problem Paresthesia of both hands R20.2 Acti ve 223890538 Problem Habitual self-excoriation 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 Acti ve 294908124 Problem BMI 50.0-59.9, adult Z68.43 Active 883089446 Problem Restrictive lung disease J98.4 Activ e 52802377 Problem Splenic artery aneurysm I72.8 Active 29238804 Problem Liver mass R16.0 Active 245237943 Problem Generalized anxiety disorder F41.1 A ctive 12810853 Problem Major depressive disorder, recurrent episode, mild degree F33.0 Active 739226640 Problem Excoriation, neurotic L98.1 Active 95429054 Problem History of tobacco use Z87.891 Active 4233944628289 Problem Primary osteoarthritis involving multiple joints M 15.0 Active 594677806 Problem Isolated proteinuria without specific morphologic lesion R80.0 Active 57800009 Problem 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 Active 172884913 Problem Pulmonary emphysema, unspecified emphysema type J4 3.9 Active 66563340 Problem Chronic prescription opiate use Z79.899 Active 635507660 Problem Tobacco use Z72.0 Active 38034885 0 Problem Bilateral carpal tunnel syndrome G56.03 Active 06662526 Problem Chronic prescription benzodiazepine use Z79.899 Active 927021674 ALLERGIES No Information ENCOUNTERS Encounter Location Date Diagnosis [facility] [address] [facility] [id number] [address] [place] [phone] May, [facility] [address] [facility] [id number] [address] [place] [phone] Mar, [facility] [address] [facility] [id number] [address] [place] [phone] Mar, [facility] [address] [facility] [id number] [address] [place] [phone] Feb, Generalized anxiety disorder F41.1 ; Major depressive disorder, recurrent episode, mild degree F33.0 and Habitual self-excoriation F42.4 [facility] [address] [facility] [id number] [address] [place] [phone] Feb, Generalized anxiety disorder F41.1 and Major depressive disorder, recurrent episode, mild degree F33.0 [facility] [address] [facility] [id number] [address] [place] [phone] Feb, [facility] [address] [facility] [id number] [address] [place] [phone] Feb, Restrictive lung disease J98 .4 ; Pulmonary emphysema, unspecified emphysema type J43.9 and Body mass index (bmi) 50-59.9 , adult Z68.43 [facility] [address] [facility] [id number] [address] [place] [phone] Feb, Generalized anxiety disorder F41.1 ; Major depressive disorder, recurrent episode, mild degree F33.0 and Habitual self-excoriation F42.4 [facility] [address] [facility] [id number] [address] [place] [phone] Feb, [facility] [address] [facility] [id number] [address] [place] [phone] Jan, [facility] [address] [facility] [id number] [address] [place] [id number] Jan, Pulmonary emphysema, unspeci fied emphysema type J43.9 [facility] [address] [id number] [address] [place] [id number] Jan, Dental examination Z01.20 an d Dental caries K02.9 [facility] [address] [facility] [id number] [address] [place] [phone] Jan, Generalized anxiety disorder F41.1 and Major depressive disorder, recurrent episode, mild degree F33.0 [facility] [address] [facility] [id number] [address] [place] [id number] Jan, [facility] [address] [facility] [id number] [address] [place] [phone] Jan, Generalized anxiety disorder F41.1 [facility] [address] [facility] [id number] [address] [place] [phone] Jan, Oral abscess K12.2 and BMI 5 0.0-59.9, adult Z68.43 [facility] [address] [facility] [id number] [address] [place] [phone] Dec, BMI 50.0-59.9, adult Z68.43 and Weight loss counseling, encounter for Z71.3 [facility] [address] [facility] [id number] [address] [place] [phone] Dec, [facility] [address] [facility] [id number] [address] [place] [id number] Dec, [facility] [address] [facility] [id number] [address] [place] [phone] November, [facility] [address] [facility] [id number] [address] [place] [id number] November, [facility] [address] [facility] [id number] [address] [place] [phone] November, Pulmonary emphysema, unspeci fied emphysema type J43.9 ; Restrictive lung disease J98.4 ; BMI 50.0-59.9, adult Z68.43 ; History of renal cell cancer Z85.528 ; Essential hypertension I10 ; Mixed hyperlipidemia E78.2 and Fatty liver K76.0 [facility] [address] [facility] [id number] [address] [place] [id number] November, Generalized anxiety disorder F41.1 [facility] [address] [facility] [id number] [address] [place] [phone] November, Generalized anxiety disorder F41.1 and Major depressive disorder, recurrent episode, mild degree F33.0 [facility] [address] [facility] [id number] [address] [place] [phone] November, Generalized anxiety disorder F41.1 ; Major depressive disorder, recurrent episode, mild degree F33.0 and Habitual self-excoriation F42.4 [facility] [address] [facility] [id number] [address] [place] [phone] November, [facility] [address] [facility] [id number] [address] [place] [phone] Oct, Generalized anxiety disorder F41.1 [facility] [address] [facility] [id number] [address] [place] [phone] Oct, [facility] [address] [facility] [id number] [address] [place] [id number] Oct, Influenza-like illness R69 [facility] [address] [facility] [id number] [address] [place] [phone] Sep, Influenza-like illness R69 [facility] [address] [facility] [id number] [address] [place] [phone] Sep, Generalized anxiety disorder F41.1 [facility] [address] [facility] [id number] [address] [place] [phone] Sep, [facility] [address] [place] [id number] [address] [place] [phone] Aug, [facility] [id number] [place] [phone] 07 Aug, 2017 [facility] [address] [phone] Aug, Generalized anxiety disorder F41.1 [facility] [address] [facility] [id number] [address] [place] [phone] Aug, Influenza-like illness R69 a nd BMI 50.0-59.9, adult Z68.43 [facility] [address] [place] [id number] [address] [place] [phone] Jul, 2018 Fatty liver K76.0 ; Restrict jean-paul lung disease J98.4 ; Diastolic dysfunction I51.9 ; Body mass index (bmi) 50-59.9 , adult Z68.43 and Chronic prescription opiate use Z79.899 [facility] [address] [place] [id number] [address] [place] [id number] Jul, Generalized anxiety disorder F41.1 [facility] [address] [place] [id number] [address] [place] [phone] Jul, Generalized anxiety disorder F41.1 [facility] [address] [phone] Jul, Primary osteoarthritis invol ving multiple joints M15.0 [facility] [address] [place] [id number] [address] [place] [phone] Jun, Generalized anxiety disorder F41.1 [facility] [address] [place] [id number] [address] [place] [phone] Jun, [facility] [address] [place] [id number] [address] [place] [phone] Jun, Mixed hyperlipidemia E78.2 [facility] [address] [place] [id number] [address] [place] [phone] Jun, Generalized anxiety disorder F41.1 [facility] [address] [place] [id number] [address] [place] [phone] Jun, Generalized anxiety disorder F41.1 ; Major depressive disorder, recurrent episode, mild degree F33.0 and Habitual self-excoriation F42.4 [facility] [address] [id number] [address] [place] [phone] May, [facility] [address] [id number] [address] [place] [phone] May, Generalized anxiety disorder F41.1 [facility] [address] [id number] [address] [place] [phone] May, Generalized anxiety disorder F41.1 [facility] [address] [id number] [address] [place] [phone] May, Primary osteoarthritis invol ving multiple joints M15.0 [facility] [address] [id number] [address] [place] [phone] Apr, Major depressive disorder, r ecurrent episode, mild degree F33.0 ; Generalized anxiety disorder F41.1 and Excoriation, neurotic L98.1 [facility] [address] [id number] [address] [place] [id number] Apr, Primary osteoarthritis invol ving multiple joints M15.0 [facility] [address] [id number] [address] [place] [phone] Apr, Essential hypertension I10 a nd Mixed hyperlipidemia E78.2 [facility] [address] [id number] [address] [place] [phone] Apr, Generalized anxiety disorder F41.1 ; Major depressive disorder, recurrent episode, mild degree F33.0 and Habitual self-excoriation F42.4 [facility] [address] [id number] [address] [place] [phone] Mar, Generalized anxiety disorder F41.1 ; Major depressive disorder, recurrent episode, mild degree F33.0 and Habitual self-excoriation F42.4 [facility] [address] [id number] [address] [place] [id number] Mar, Skin lesion L98.9 [facility] [address] [facility] [id number] [address] [place] [id number] Mar, Primary osteoarthritis invol ving multiple joints M15.0 [facility] [address] [facility] [id number] [address] [place] [phone] Mar, [facility] [address] [facility] [id number] [address] [place] [phone] Mar, [facility] [address] [facility] [id number] [address] [place] [id number] Feb, Major depressive disorder, r ecurrent episode, mild degree F33.0 ; Generalized anxiety disorder F41.1 and Excoriation, neurotic L98.1 [place] [address] [place] [id number] [address] [place] [id number] Feb, Generalized anxiety disorder F41.1 [place] [address] [place] [id number] [address] [place] [id number] Feb, Primary osteoarthritis invol ving multiple joints M15.0 [facility] [address] [facility] [id number] [address] [place] [id number] Jan, [place] [address] [place] [id number] [address] [place] [id number] Jan, Essential hypertension I10 ; Splenic artery aneurysm I72.8 ; Liver mass R16.0 ; Restrictive lung disease J98.4 ; Primary osteoarthritis involving multiple joints M15.0 ; Mixed hyperlipidemia E78.2 ; Bilateral carpal tunnel syndrome G56.03 ; Body mass index (bmi) 50-59.9 , adult Z68.43 and History of tobacco use Z87.891 [place] [address] [place] [id number] [address] [place] [id number] Jan, Major depressive disorder, r ecurrent episode, mild degree F33.0 and Generalized anxiety disorder F41.1 [facility] [address] [place] [id number] [address] [place] [id number] Jan, [place] [address] [facility] [id number] [address] [place] [id number] Jan, Generalized anxiety disorder F41.1 and Major depressive disorder, recurrent episode, mild degree F33.0 [facility] [address] [facility] [id number] [address] [place] [id number] Dec, Primary osteoarthritis invol ving multiple joints M15.0 [facility] [address] [facility] [id number] [address] [place] [id number] Dec, Generalized anxiety disorder F41.1 [place] [address] [facility] [id number] [address] [place] [id number] Dec, [place] [address] [facility] [id number] [address] [place] [id number] Dec, Major depressive disorder, r ecurrent episode, mild degree F33.0 and Generalized anxiety disorder F41.1 [place] [address] [facility] [id number] [address] [place] [phone] Dec, Generalized anxiety disorder F41.1 and Major depressive disorder, recurrent episode, mild degree F33.0 [place] [address] [facility] [id number] [address] [place] [phone] November, Mild major depression F32.0 and Primary osteoarthritis involving multiple joints M15.0 [place] [address] [facility] [id number] [address] [place] [phone] November, Major depressive disorder, r ecurrent episode, mild degree F33.0 and Generalized anxiety disorder F41.1 [place] [address] [facility] [id number] [address] [place] [address] November, Primary osteoarthritis invol ving multiple joints M15.0 ; Essential hypertension I10 ; Prediabetes R73.09 ; Mixed hyperlipidemia E78.2 ; Chronic prescription benzodiazepine use Z79.899 ; Chronic prescription opiate use Z79.899 ; Tobacco use Z72.0 ; Bilateral carpal tunnel syndrome G56.03 and Body mass index (bmi) 50-59.9 , adult Z68.43 [place] [id number] [facility] [id number] [address] [place] [id number] November, Primary osteoarthritis invol ving multiple joints M15.0 and Mild major depression F32.0 [facility] [address] [facility] [id number] [address] [place] [id number] Oct, [facility] [address] [place] [id number] [address] [place] [id number] Oct, Primary osteoarthritis invol ving multiple joints M15.0 ; Essential hypertension I10 ; Prediabetes R73.09 ; Chronic prescription benzodiazepine use Z79.899 ; Chronic prescription opiate use Z79.899 ; Tobacco use Z72.0 ; Mixed hyperlipidemia E78.2 ; Bilateral carpal tunnel syndrome G56.03 ; Body mass index (bmi) 50-59.9 , adult Z68.43 and Encounter for immunization Z23 [facility] [address] [place] [id number] [address] [place] [phone] Oct, Major depressive disorder, r ecurrent episode, mild degree F33.0 and Generalized anxiety disorder F41.1 [facility] [address] [facility] [id number] [address] [place] [phone] Oct, [facility] [address] [facility] [id number] [address] [place] [phone] Oct, [facility] [address] [facility] [id number] [address] [place] [address] Sep, Mild major depression F32.0 [facility] [address] [facility] [id number] [address] [place] [phone] Sep, [facility] [address] [facility] [id number] [address] [place] [phone] Sep, Mild major depression F32.0 and Generalized anxiety disorder F41.1 [facility] [address] [facility] [id number] [address] [place] [phone] Sep, Paresthesia of both hands R2 0.2 and Cervical radiculopathy M54.12 [facility] [address] [place] [id number] [address] [place] [phone] Sep, [facility] [address] [address] Sep, [facility] [address] [address] Aug, Paresthesia of both hands R2 0.2 and Neck pain M54.2 [facility] [address] [phone] Aug, [facility] [address] [place] [id number] [place] [phone] Jul, Neck pain M54.2 and Paresthe eddie of both hands R20.2 [place] [address] [place] [id number] [place] [phone] Jul, Proteinuria, unspecified typ e R80.9 [place] [address] [phone] Jul, Proteinuria, unspecified typ e R80.9 [place] [address] [address] Jul, [place] [address] [address] Jul, Other specified transient ce rebral ischemias G45.8 [place] [address] [address] Jun, Diastolic dysfunction I51.9 [place] [address] [address] Jun, Diastolic dysfunction I51.9 [place] [address] [id number] Jun, Major depressive disorder, s david episode, unspecified F32.9 and Anxiety disorder, unspecified F41.9 [place] [address] [address] Jun, [facility] [address] [place] [id number] [address] [place] [id number] Jun, [facility] [address] [place] [id number] [address] [place] [address] May, Moderate major depression F3 2.1 and Generalized anxiety disorder F41.1 [facility] [address] [place] [id number] [place] [phone] 16 May, 2016 Major depressive disorder, s david episode, unspecified F32.9 and Anxiety disorder, unspecified F41.9 [facility] [address] [place] [id number] [place] [phone] 15 May, 2016 [facility] [address] [place] [id number] [place] [address] 14 May, 2016 Liver enzyme elevation R74.8 [facility] [address] [address] May, Liver enzyme elevation R74.8 [facility] [address] [place] [id number] [place] [phone] 10 May, 2016 Shortness of breath on exert ion R06.02 ; Essential hypertension I10 ; Mixed hyperlipidemia E78.2 and Tobacco use Z72.0 [facility] [address] [place] [id number] [address] [place] [address] May, [facility] [address] [place] [id number] [address] [place] [id number] May, [facility] [address] [place] [id number] [address] [place] [address] Apr, Anxiety F41.9 and Depression F32.9 [facility] [address] [place] [id number] [address] [place] [phone] Apr, [facility] [address] [place] [id number] [address] [place] [id number] Apr, [facility] [address] [place] [id number] [address] [place] [phone] 22 Mar, 2016 Depression F32.9 and Anxiety F41.9 [facility] [address] [id number] [address] [place] [id number] 08 Mar, 2016 Anxiety F41.9 and Depression F32.9 [facility] [address] [id number] [address] [place] [id number] 06 Mar, 2016 Well woman exam (no gynecolo gical exam) Z00.00 [facility] [address] [id number] [address] [place] [id number] Mar, [facility] [address] [id number] [address] [place] [id number] Mar, [facility] [address] [id number] [address] [place] [id number] Feb, Dental caries K02.9 [facility] [address] [id number] [address] [place] [id number] Feb, [facility] [address] [id number] [address] [place] [id number] Feb, Anxiety F41.9 and Depression F32.9 [facility] [address] [id number] [address] [place] [address] [id number] Feb, Dental examination Z01.20 [facility] [address] [id number] [address] [place] [id number] Feb, [facility] [address] [id number] [address] [place] [id number] Feb, [facility] [address] [id number] [address] [place] [id number] Feb, Anxiety F41.9 and Depression F32.9 [facility] [address] [id number] [address] [place] [id number] Jan, Severe episode of recurrent major depressive disorder, without psychotic features F33.2 and Anxiety disorder, unspecified F41.9 [facility] [address] [id number] [address] [place] [id number] Jan, [facility] [address] [id number] [address] [place] [id number] Dec, [facility] [address] [id number] [address] [place] [phone] Dec, Anxiety F41.9 and Depression F32.9 [facility] [address] [id number] [address] [place] [id number] 24 Dec, 2015 Other specified transient ce rebral ischemias G45.8 and Nocturnal hypoxia G47.34 [facility] [address] [address] [id number] [address] [place] [id number] 18 Dec, 2015 [facility] [address] [id number] [address] [place] [id number] 17 Dec, 2015 Other specified transient ce rebral ischemias G45.8 [facility] [address] [id number] [address] [place] [id number] 16 Dec, 2015 Severe episode of recurrent major depressive disorder, without psychotic features F33.2 and Anxiety disorder, unspecified F41.9 [facility] [address] [id number] [address] [place] [phone] Dec, [facility] [address] [id number] [address] [place] [id number] Dec, Anxiety F41.9 and Depression F32.9 [facility] [address] [id number] [address] [place] [id number] 07 Dec, 2015 Anxiety F41.9 and Depression F32.9 [facility] [address] [id number] [address] [place] [id number] Dec, [facility] [address] [id number] [address] [place] [id number] November, Anxiety F41.9 and Depression F32.9 [facility] [address] [facility] [id number] [address] [place] [id number] November, Severe episode of recurrent major depressive disorder, without psychotic features F33.2 [place] [address] [address] November, Mixed hyperlipidemia E78.2 [place] [address] [address] November, Anxiety F41.9 and Depression F32.9 [place] [address] [id number] 05 Nov, 2015 Prediabetes R73.09 ; Essenti al hypertension I10 ; Anxiety F41.9 ; Depression F32.9 ; Gastroesophageal reflux disease, esophagitis presence not specified K21.9 ; Primary osteoarthritis involving multiple joints M15.0 ; History of renal cell cancer Z85.528 ; Postnasal drip R09.82 ; Allergic rhinitis, unspecified J30.9 and Tobacco use Z72.0 [place] [address] [address] Oct, Anxiety F41.9 and Depression F32.9 [place] [address] [id number] 07 Oct, 2015 [place] [address] [address] Oct, [place] [address] [id number] 14 Sep, 2015 Splenic artery aneurysm I72. 8 [place] [address] [address] 10 Sep, 2015 Depression F32.9 ; Anxiety F 41.9 ; Chronic prescription benzodiazepine use Z79.899 and Splenic artery aneurysm I72.8 [place] [address] [id number] 10 Sep, 2015 Depression F32.9 and Anxiety F41.9 [place] [address] [id number] Sep, [facility] [address] [place] [id number] [address] [place] [id number] 18 Aug, 2015 Dehydration E86.0 ; Diarrhea R19.7 ; Nausea R11.0 and Generalized abdominal pain R10.84 [facility] [address] [place] [id number] [address] [place] [phone] Aug, [facility] [address] [place] [id number] [place] [phone] Jul, Depression F32.9 [facility] [address] [place] [id number] [place] [phone] Jul, [facility] [address] [id number] Jul, Anxiety F41.9 and Depression F32.9 [facility] [address] [address] Jul, [facility] [address] [place] [id number] [address] [place] [phone] Jun, Epigastric pain R10.13 [facility] [address] [place] [id number] [address] [place] [id number] Jun, [facility] [address] [place] [id number] [address] [place] [id number] Jun, [facility] [address] [place] [id number] [address] [place] [phone] May, [facility] [address] [place] [id number] [address] [place] [phone] May, [facility] [address] [id number] Apr, [facility] [address] [place] [id number] [address] [place] [id number] Mar, Anxiety state, unspecified 3 00.00 ; Depression 311 ; Prediabetes 790.29 ; Generalized osteoarthrosis, involving multiple sites 715.09 and Hypertension 401.9 [facility] [address] [id number] [address] [place] [address], [place] [phone] Mar, [facility] [address] [id number] [address] [place] [id number] Feb, [facility] [address] [id number] [address] [place] [phone] Jan, [facility] [address] [id number] [address] [place] [phone] Jan, [facility] [address] [id number] [address] [place] [id number] Jan, Generalized osteoarthrosis, involving multiple sites 715.09 [facility] [address] [id number] [address] [place] [id number] Jan, Hx of renal cell cancer V10. 52 [facility] [address] [id number] [address] [place] [id number] Dec, Generalized osteoarthrosis, involving multiple sites 715.09 and Hx of renal cell cancer V10.52 [facility] [address] [id number] [address] [place] [id number] Dec, [facility] [address] [id number] [address] [place] [id number] Dec, [facility] [address] [id number] [address] [place] [phone] November, [facility] [address] [id number] [address] [place] [phone] Oct, [facility] [address] [id number] [address] [place] [phone] Oct, [facility] [address] [id number] [address] [place] [id number] Sep, [facility] [address] [id number] [address] [place] [phone] Sep, [facility] [address] [facility] [id number] [address] [place] [id number] Sep, [facility] [address] [facility] [id number] [address] [place] [id number] Sep, [facility] [address] [facility] [id number] [address] [place] [phone] Aug, [facility] [address] [facility] [id number] [address] [place] [phone] Aug, IMMUNIZATIONS No Known Immunizations SOCIAL HISTORY Never Assessed REASON FOR VISIT Controlled Medication Refill PLAN OF CARE VITAL SIGNS MEDICATIONS Medication Instructions Dosage Frequency Start Date End Date Duration S tatus Hydrocodone-Acetaminophen 5-325 MG Orally 2 times a day as n eeded for pain take 1 tablet Dec, 28 Active RESULTS No Results PROCEDURES No [...]
--- OUTSIDE RECORDS SUMMARY | 2020-02-08 07:17 | XMS REPORT ---
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 Name Role Phone LALOJEZALBANIA Unavailable PROBLEMS Type Condition ICD9-CM Code EWJ10-WA Code Onset Dates Condition S tatus SNOMED Code Problem Mixed hyperlipidemia E78.2 Active 984507874 Problem Fatty liver K76.0 Active 29521220 7 Problem Obstructive sleep apnea G47.33 Active 83002799 Problem Allergic rhinitis, unspecified J30.9 Active 63834429 Problem Essential hypertension I10 Active 25746057 Problem History of renal cell cancer Z85.528 A ctive 259665035 Problem Prediabetes R73.09 Active 4115366 Problem Diastolic dysfunction I51.9 Active 0476403 Problem Body mass index (bmi) 50-59.9 , adult Z68.43 Active 056610508 Problem Paresthesia of both hands R20.2 Acti ve 476989172 Problem Habitual self-excoriation 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 Acti ve 717125801 Problem BMI 50.0-59.9, adult Z68.43 Active 966081325 Problem Restrictive lung disease J98.4 Activ e 39644500 Problem Splenic artery aneurysm I72.8 Active 41560656 Problem Liver mass R16.0 Active 990341645 Problem Generalized anxiety disorder F41.1 A ctive 06904293 Problem Major depressive disorder, recurrent episode, mild degree F33.0 Active 650316006 Problem Excoriation, neurotic L98.1 Active 81677329 Problem History of tobacco use Z87.891 Active 9237627165900 Problem Primary osteoarthritis involving multiple joints M 15.0 Active 258247117 Problem Isolated proteinuria without specific morphologic lesion R80.0 Active 52951856 Problem 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 Active 429410150 Problem Pulmonary emphysema, unspecified emphysema type J4 3.9 Active 02033953 Problem Chronic prescription opiate use Z79.899 Active 163132975 Problem Tobacco use Z72.0 Active 81655644 0 Problem Bilateral carpal tunnel syndrome G56.03 Active 39244435 Problem Chronic prescription benzodiazepine use Z79.899 Active 953002628 ALLERGIES No Known Allergies ENCOUNTERS Encounter Location Date Diagnosis [facility] [address] [facility] [id number] [address] [place] [id number] 07 May, 2018 [facility] [address] [place] [id number] [address] [place] [id number] Mar, [facility] [address] [place] [id number] [address] [place] [phone] Feb, Generalized anxiety disorder F41.1 ; Major depressive disorder, recurrent episode, mild degree F33.0 and Habitual self-excoriation F42.4 [place] [address] [place] [id number] [address] [place] [phone] Feb, Generalized anxiety disorder F41.1 and Major depressive disorder, recurrent episode, mild degree F33.0 [place] [address] [place] [id number] [address] [place] [id number] Feb, [place] [address] [address] Feb, Restrictive lung disease J98 .4 ; Pulmonary emphysema, unspecified emphysema type J43.9 and Body mass index (bmi) 50-59.9 , adult Z68.43 [place] [address] [place] [id number] [address] [place] [id number] Feb, Generalized anxiety disorder F41.1 ; Major depressive disorder, recurrent episode, mild degree F33.0 and Habitual self-excoriation F42.4 [place] [address] [place] [id number] [address] [place] [id number] Feb, [facility] [address] [place] [id number] [address] [place] [id number] Jan, [place] [address] [place] [id number] [address] [place] [phone] Jan, Pulmonary emphysema, unspeci fied emphysema type J43.9 [facility] [address] [facility] [id number] [address] [place] [address] [id number] Jan, Dental examination Z01.20 an d Dental caries K02.9 [facility] [address] [facility] [id number] [address] [place] [id number] Jan, Generalized anxiety disorder F41.1 and Major depressive disorder, recurrent episode, mild degree F33.0 [facility] [address] [place] [id number] Jan, [facility] [address] [place] [id number] [place] [address] Jan, Generalized anxiety disorder F41.1 [facility] [address] [place] [id number] [address] [place] [id number] Jan, Oral abscess K12.2 and BMI 5 0.0-59.9, adult Z68.43 [facility] [address] [place] [id number] [address] [place] [id number] Dec, BMI 50.0-59.9, adult Z68.43 and Weight loss counseling, encounter for Z71.3 [facility] [address] [place] [id number] [address] [place] [id number] Dec, [facility] [address] [place] [id number] [address] [place] [phone] Dec, [facility] [address] [place] [phone] November, [facility] [address] [place] [id number] [address] [place] [phone] November, [facility] [address] [address] November, Pulmonary emphysema, unspeci fied emphysema type J43.9 ; Restrictive lung disease J98.4 ; BMI 50.0-59.9, adult Z68.43 ; History of renal cell cancer Z85.528 ; Essential hypertension I10 ; Mixed hyperlipidemia E78.2 and Fatty liver K76.0 [facility] [address] [facility] [id number] [address] [place] [id number] November, Generalized anxiety disorder F41.1 [facility] [address] [facility] [id number] [address] [place] [id number] November, Generalized anxiety disorder F41.1 and Major depressive disorder, recurrent episode, mild degree F33.0 [facility] [address] [facility] [id number] [address] [place] [id number] November, Generalized anxiety disorder F41.1 ; Major depressive disorder, recurrent episode, mild degree F33.0 and Habitual self-excoriation F42.4 [facility] [address] [facility] [id number] [address] [place] [id number] November, [facility] [address] [facility] [id number] [address] [place] [phone] Oct, Generalized anxiety disorder F41.1 [facility] [address] [facility] [id number] [address] [place] [id number] Oct, [facility] [address] [facility] [id number] [address] [place] [id number] Oct, Influenza-like illness R69 [facility] [address] [facility] [id number] [address] [place] [id number] Sep, Influenza-like illness R69 [facility] [address] [facility] [id number] [address] [place] [id number] Sep, Generalized anxiety disorder F41.1 [facility] [address] [facility] [id number] [address] [place] [phone] Sep, [facility] [address] [facility] [id number] [address] [place] [phone] Aug, [facility] [address] [facility] [id number] [address] [place] [phone] Aug, [facility] [address] [place] [id number] [address] [place] [phone] Aug, Generalized anxiety disorder F41.1 [facility] [address] [address] Aug, Influenza-like illness R69 a nd BMI 50.0-59.9, adult Z68.43 [facility] [address] [address] Jul, Fatty liver K76.0 ; Restrict jean-paul lung disease J98.4 ; Diastolic dysfunction I51.9 ; Body mass index (bmi) 50-59.9 , adult Z68.43 and Chronic prescription opiate use Z79.899 [facility] [address] [address] Jul, Generalized anxiety disorder F41.1 [facility] [address] [address] Jul, Generalized anxiety disorder F41.1 [facility] [address] [address] Jul, Primary osteoarthritis invol ving multiple joints M15.0 [facility] [address] [address] Jun, Generalized anxiety disorder F41.1 [facility] [address] [address] Jun, [facility] [address] [address] Jun, Mixed hyperlipidemia E78.2 [place] [address] [address] Jun, Generalized anxiety disorder F41.1 [facility] [address] [address] Jun, Generalized anxiety disorder F41.1 ; Major depressive disorder, recurrent episode, mild degree F33.0 and Habitual self-excoriation F42.4 [facility] [address] [id number] [address] [place] [phone] May, [facility] [address] [id number] [address] [place] [id number] May, Generalized anxiety disorder F41.1 [facility] [address] [id number] [address] [place] [phone] May, Generalized anxiety disorder F41.1 [facility] [address] [id number] [address] [place] [id number] May, Primary osteoarthritis invol ving multiple joints M15.0 [facility] [address] [id number] [address] [place] [phone] Apr, Major depressive disorder, r ecurrent episode, mild degree F33.0 ; Generalized anxiety disorder F41.1 and Excoriation, neurotic L98.1 [facility] [address] [id number] [address] [place] [id number] Apr, Primary osteoarthritis invol ving multiple joints M15.0 [facility] [address] [id number] [address] [place] [phone] Apr, Essential hypertension I10 a nd Mixed hyperlipidemia E78.2 [facility] [address] [id number] [address] [place] [id number] Apr, Generalized anxiety disorder F41.1 ; Major depressive disorder, recurrent episode, mild degree F33.0 and Habitual self-excoriation F42.4 [facility] [address] [id number] [address] [place] [id number] Mar, Generalized anxiety disorder F41.1 ; Major depressive disorder, recurrent episode, mild degree F33.0 and Habitual self-excoriation F42.4 [facility] [address] [id number] [address] [place] [phone] Mar, Skin lesion L98.9 [facility] [address] [id number] [address] [place] [id number] Mar, Primary osteoarthritis invol ving multiple joints M15.0 [facility] [address] [id number] [address] [place] [id number] Mar, [facility] [address] [id number] [address] [place] [id number] Mar, [facility] [address] [id number] [address] [place] [id number] Feb, Major depressive disorder, r ecurrent episode, mild degree F33.0 ; Generalized anxiety disorder F41.1 and Excoriation, neurotic L98.1 [facility] [address] [id number] [address] [place] [id number] Feb, Generalized anxiety disorder F41.1 [facility] [address] [id number] [address] [place] [phone] Feb, Primary osteoarthritis invol ving multiple joints M15.0 [facility] [address] [id number] [address] [place] [id number] Jan, [facility] [address] [facility] [id number] [address] [place] [id number] Jan, Essential hypertension I10 ; Splenic artery aneurysm I72.8 ; Liver mass R16.0 ; Restrictive lung disease J98.4 ; Primary osteoarthritis involving multiple joints M15.0 ; Mixed hyperlipidemia E78.2 ; Bilateral carpal tunnel syndrome G56.03 ; Body mass index (bmi) 50-59.9 , adult Z68.43 and History of tobacco use Z87.891 [facility] [address] [id number] [address] [place] [id number] Jan, Major depressive disorder, r ecurrent episode, mild degree F33.0 and Generalized anxiety disorder F41.1 [facility] [address] [facility] [id number] [address] [place] [id number] Jan, [facility] [address] [facility] [id number] [address] [place] [phone] Jan, Generalized anxiety disorder F41.1 and Major depressive disorder, recurrent episode, mild degree F33.0 [facility] [address] [id number] [address] [place] [id number] Dec, Primary osteoarthritis invol ving multiple joints M15.0 [facility] [address] [id number] [address] [place] [id number] Dec, Generalized anxiety disorder F41.1 [facility] [address] [id number] [address] [place] [phone] Dec, [place] [address] [id number] [address] [place] [id number] Dec, Major depressive disorder, r ecurrent episode, mild degree F33.0 and Generalized anxiety disorder F41.1 [place] [address] [facility] [id number] [address] [place] [id number] Dec, Generalized anxiety disorder F41.1 and Major depressive disorder, recurrent episode, mild degree F33.0 [place] [address] [facility] [id number] [address] [place] [id number] November, Mild major depression F32.0 and Primary osteoarthritis involving multiple joints M15.0 [place] [address] [facility] [id number] [address] [place] [phone] November, Major depressive disorder, r ecurrent episode, mild degree F33.0 and Generalized anxiety disorder F41.1 [place] [address] [facility] [id number] [address] [place] [address] November, Primary osteoarthritis invol ving multiple joints M15.0 ; Essential hypertension I10 ; Prediabetes R73.09 ; Mixed hyperlipidemia E78.2 ; Chronic prescription benzodiazepine use Z79.899 ; Chronic prescription opiate use Z79.899 ; Tobacco use Z72.0 ; Bilateral carpal tunnel syndrome G56.03 and Body mass index (bmi) 50-59.9 , adult Z68.43 [facility] [address] [facility] [id number] [address] [place] [id number] November, Primary osteoarthritis invol ving multiple joints M15.0 and Mild major depression F32.0 [facility] [address] [facility] [id number] [address] [place] [id number] Oct, [facility] [address] [facility] [id number] [address] [place] [id number] Oct, Primary osteoarthritis invol ving multiple joints M15.0 ; Essential hypertension I10 ; Prediabetes R73.09 ; Chronic prescription benzodiazepine use Z79.899 ; Chronic prescription opiate use Z79.899 ; Tobacco use Z72.0 ; Mixed hyperlipidemia E78.2 ; Bilateral carpal tunnel syndrome G56.03 ; Body mass index (bmi) 50-59.9 , adult Z68.43 and Encounter for immunization Z23 [place] [address] [place] [id number] [address] [place] [id number] Oct, Major depressive disorder, r ecurrent episode, mild degree F33.0 and Generalized anxiety disorder F41.1 [place] [address] [place] [id number] [address] [place] [phone] Oct, [facility] [address] [place] [id number] [address] [place] [id number] Oct, [facility] [address] [place] [id number] [address] [place] [id number] Sep, Mild major depression F32.0 [facility] [address] [facility] [id number] [address] [place] [id number] Sep, [facility] [address] [facility] [id number] [address] [place] [id number] Sep, Mild major depression F32.0 and Generalized anxiety disorder F41.1 [facility] [address] [facility] [id number] [address] [place] [id number] Sep, Paresthesia of both hands R2 0.2 and Cervical radiculopathy M54.12 [facility] [address] [place] [id number] [address] [place] [phone] Sep, [place] [address] [place] [id number] [address] [place] [phone] Sep, [facility] [address] [facility] [id number] [address] [place] [phone] Aug, Paresthesia of both hands R2 0.2 and Neck pain M54.2 [facility] [address] [facility] [id number] [address] [place] [id number] Aug, [facility] [address] [facility] [id number] [address] [place] [id number] Jul, Neck pain M54.2 and Paresthe eddie of both hands R20.2 [place] [address] [place] [id number] [place] [address] Jul, Proteinuria, unspecified typ e R80.9 [place] [address] [place] [id number] [place] [address] Jul, Proteinuria, unspecified typ e R80.9 [facility] [address] [place] [id number] [address] [place] [id number] Jul, [facility] [address] [place] [id number] [place] [address] Jul, Other specified transient ce rebral ischemias G45.8 [facility] [address] [place] [id number] [address] [place] [phone] Jun, Diastolic dysfunction I51.9 [facility] [address] [facility] [id number] [address] [place] [id number] Jun, Diastolic dysfunction I51.9 [facility] [address] [place] [id number] [place] [phone] Jun, Major depressive disorder, s david episode, unspecified F32.9 and Anxiety disorder, unspecified F41.9 [facility] [address] [facility] [id number] [address] [place] [id number] Jun, [facility] [address] [place] [id number] [address] [place] [phone] Jun, [facility] [address] [place] [id number] [address] [place] [id number] 22 May, 2016 Moderate major depression F3 2.1 and Generalized anxiety disorder F41.1 [facility] [address] [place] [id number] [address] [place] [id number] 16 May, 2016 Major depressive disorder, s david episode, unspecified F32.9 and Anxiety disorder, unspecified F41.9 [facility] [address] [place] [id number] [place] [id number] 15 May, 2016 [facility] [address] [place] [id number] [place] [address] 14 May, 2016 Liver enzyme elevation R74.8 [facility] [address] [place] [id number] [place] [id number] 14 May, 2016 Liver enzyme elevation R74.8 [facility] [address] [address] 10 May, 2016 Shortness of breath on exert ion R06.02 ; Essential hypertension I10 ; Mixed hyperlipidemia E78.2 and Tobacco use Z72.0 [facility] [address] [place] [id number] [address] [place] [id number] 03 May, 2016 [facility] [address] [place] [id number] [address] [place] [phone] May, [facility] [address] [place] [id number] [address] [place] [phone] Apr, Anxiety F41.9 and Depression F32.9 [facility] [address] [place] [id number] [place] [id number] Apr, [facility] [address] [place] [id number] [place] [address] Apr, [facility] [address] [place] [id number] [address] [place] [phone] Mar, Depression F32.9 and Anxiety F41.9 [facility] [address] [id number] [address] [place] [id number] 08 Mar, 2016 Anxiety F41.9 and Depression F32.9 [facility] [address] [id number] [address] [place] [id number] 06 Mar, 2016 Well woman exam (no gynecolo gical exam) Z00.00 [facility] [address] [id number] [address] [place] [id number] Mar, [facility] [address] [id number] [address] [place] [id number] Mar, [facility] [address] [id number] [address] [place] [id number] Feb, Dental caries K02.9 [facility] [address] [id number] [address] [place] [id number] Feb, [facility] [address] [id number] [address] [place] [phone] Feb, Anxiety F41.9 and Depression F32.9 [facility] [address] [id number] [address] [place] [id number] Feb, Dental examination Z01.20 [facility] [address] [id number] [address] [place] [id number] Feb, [facility] [address] [id number] [address] [place] [phone] Feb, [facility] [address] [id number] [address] [place] [id number] Feb, Anxiety F41.9 and Depression F32.9 [facility] [address] [id number] [address] [place] [id number] Jan, Severe episode of recurrent major depressive disorder, without psychotic features F33.2 and Anxiety disorder, unspecified F41.9 [facility] [address] [id number] [address] [place] [phone] Jan, [place] [id number] [id number] [address] [place] [phone] Dec, [facility] [address] [id number] [address] [place] [phone] Dec, Anxiety F41.9 and Depression F32.9 [facility] [address] [id number] [address] [place] [id number] 24 Dec, 2015 Other specified transient ce rebral ischemias G45.8 and Nocturnal hypoxia G47.34 [facility] [address] [id number] [address] [place] [id number] 18 Dec, 2015 [facility] [address] [id number] [address] [place] [id number] 17 Dec, 2015 Other specified transient ce rebral ischemias G45.8 [facility] [address] [id number] [address] [place] [id number] 16 Dec, 2015 Severe episode of recurrent major depressive disorder, without psychotic features F33.2 and Anxiety disorder, unspecified F41.9 [facility] [address] [id number] [address] [place] [phone] Dec, [facility] [address] [id number] [address] [place] [id number] Dec, Anxiety F41.9 and Depression F32.9 [facility] [address] [id number] [address] [place] [id number] Dec, Anxiety F41.9 and Depression F32.9 [facility] [address] [id number] [address] [place] [id number] Dec, [facility] [address] [id number] [address] [place] [phone] November, Anxiety F41.9 and Depression F32.9 [facility] [address] [address] [id number] [address] [place] [id number] November, Severe episode of recurrent major depressive disorder, without psychotic features F33.2 [facility] [address] [facility] [id number] [address] [place] [id number] November, Mixed hyperlipidemia E78.2 [facility] [address] [facility] [id number] [address] [place] [phone] November, Anxiety F41.9 and Depression F32.9 [place] [address] [facility] [id number] [address] [place] [id number] 05 Nov, 2015 Prediabetes R73.09 ; Essenti al hypertension I10 ; Anxiety F41.9 ; Depression F32.9 ; Gastroesophageal reflux disease, esophagitis presence not specified K21.9 ; Primary osteoarthritis involving multiple joints M15.0 ; History of renal cell cancer Z85.528 ; Postnasal drip R09.82 ; Allergic rhinitis, unspecified J30.9 and Tobacco use Z72.0 [place] [id number] [place] [phone] Oct, Anxiety F41.9 and Depression F32.9 [place] [address] [facility] [id number] [address] [place] [id number] 07 Oct, 2015 [place] [address] [place] [id number] [address] [place] [phone] Oct, [place] [address] [place] [id number] [address] [place] [id number] 14 Sep, 2015 Splenic artery aneurysm I72. 8 [place] [id number] [facility] [id number] [address] [place] [phone] 10 Sep, 2015 Depression F32.9 ; Anxiety F 41.9 ; Chronic prescription benzodiazepine use Z79.899 and Splenic artery aneurysm I72.8 [place] [id number] [facility] [id number] [address] [place] [id number] 10 Sep, 2015 Depression F32.9 and Anxiety F41.9 [place] [address] [facility] [id number] [address] [place] [phone] 02 Sep, 2015 [facility] [address] [place] [id number] [address] [place] [id number] 18 Aug, 2015 Dehydration E86.0 ; Diarrhea R19.7 ; Nausea R11.0 and Generalized abdominal pain R10.84 [facility] [address] [facility] [id number] [address] [place] [phone] Aug, [facility] [address] [place] [id number] [address] [place] [phone] Jul, Depression F32.9 [facility] [address] [place] [id number] [address] [place] [id number] Jul, [facility] [address] [place] [id number] [place] [phone] Jul, Anxiety F41.9 and Depression F32.9 [facility] [address] [place] [id number] [address] [place] [phone] Jul, [facility] [address] [phone] Jun, Epigastric pain R10.13 [facility] [address] [place] [id number] [address] [place] [phone] Jun, [facility] [address] [place] [id number] [place] [phone] Jun, [facility] [address] [place] [id number] [address] [place] [phone] May, [facility] [address] [place] [id number] [address] [place] [phone] May, [facility] [address] [place] [id number] [address] [place] [id number] Apr, [facility] [address] [place] [id number] [place] [phone] Mar, Anxiety state, unspecified 3 00.00 ; Depression 311 ; Prediabetes 790.29 ; Generalized osteoarthrosis, involving multiple sites 715.09 and Hypertension 401.9 [facility] [address] [place] [id number] [address] [place] [phone] Mar, [facility] [address] [id number] [address] [place] [phone] Feb, [facility] [address] [id number] [address] [place] [phone] Jan, [facility] [address] [id number] [address] [place] [phone] Jan, [facility] [address] [id number] [address] [place] [phone] Jan, Generalized osteoarthrosis, involving multiple sites 715.09 [facility] [address] [id number] [address] [place] [phone] Jan, Hx of renal cell cancer V10. 52 [facility] [address] [id number] [address] [place] [phone] Dec, Generalized osteoarthrosis, involving multiple sites 715.09 and Hx of renal cell cancer V10.52 [facility] [address] [id number] [address] [place] [phone] Dec, [facility] [address] [id number] [address] [place] [phone] Dec, [facility] [address] [id number] [address] [place] [phone] November, [facility] [address] [id number] [address] [place] [phone] Oct, [facility] [address] [id number] [address] [place] [phone] Oct, [facility] [address] [id number] [address] [place] [phone] Sep, [facility] [address] [id number] [address] [place] [phone] Sep, [facility] [address] [id number] [address] [place] [phone] Sep, [facility] [address] [facility] [id number] [address] [place] [phone] Sep, [facility] [address] [facility] [id number] [address] [place] [phone] Aug, [facility] [address] [facility] [id number] [address] [place] [phone] Aug, IMMUNIZATIONS No Known Immunizations SOCIAL HISTORY Never Assessed REASON FOR VISIT weight loss management Pt is here to start weight loss management NIRAV Leone PLAN OF CARE Activity Details Follow Up 4 Weeks Reason:weight manage ment VITAL SIGNS Height 62 in 2018-01-21 Weight 290.7 lbs 2018-01-21 Temperature 98.4 degrees Fahrenheit 2018-01-21 Heart Rate 90 bpm 2018-01-21 Respiratory Rate 18 2018-01-21 BMI 53.16 kg/m2 2018-01-21 Blood pressure systolic 116 mmHg 2018-01-21 Blood pressure diastolic 72 mmHg 2018-01-21 MEDICATIONS Medication Instructions Dosage Frequency Start Date End Date Duration S tatus Atenolol 50 MG TAKE ONE TABLET BY MOUTH ONCE DAILY 90 Active Stiolto Respimat 2.5-2.5 MCG/ACT Inhalation Once a day 2 puffs 24h November, Active Remeron 15 mg Orally Once a day at bedtime 1 tablet at bedtime Active Furosemide 20 MG TAKE ONE TABLET BY MOUTH ONCE DAILY 30 Active Wellbutrin XL 150 MG Orally Once a day (along wit h 300 mg tablet to equal 450 mg daily 1 tablet in the morning A ctive Vitamin E Complete Activ e Mirtazapine 15 MG TAKE ONE TABLET BY MOUTH ONCE DAILY AT BEDTIME 30 Not-Taking ProAir HFA 108 (90 Base) MCG/ACT Inhalation every 4 hrs 2 puffs as ne eded 4h 17 Active Diazepam 5 mg Orally Once a day as needed for anxiety 0.5 tablet 30 days Active Wellbutrin XL 300 MG Orally Once a day 1 tablet in the morning 24h Active Cymbalta 30 MG Orally Once a day 3 capsules 24h Active Omeprazole 40 MG TAKE ONE CAPSULE BY MOUTH ONCE DAILY 30 Active Duloxetine HCl 30 MG TAKE THREE CAPSULES BY MOUTH ONCE DAILY 30 Not-Taking Tizanidine HCl 2 MG TAKE ONE TABLET BY MOUTH EVERY 8 HOURS NE EDED 30 Active Potassium Chloride ER 20 MEQ TAKE ONE TABLET BY MOUTH ONCE DAILY WITH FOOD 30 Active Hydrocodone-Acetaminophen 5-325 MG Orally 2 times a day as n eeded for pain take 1 tablet Dec, 28 Active Atorvastatin Calcium 40 MG TAKE ONE TABLET BY MOUTH ONCE DAILY 30 Active BuPROPion HCl ER (XL) 300 MG TAKE ONE TA BLET BY MOUTH ONCE DAILY IN THE MORNING 30 Not-Taking RESULTS No Results PROCEDURES Procedure Date Ordered Result Body Site [facility] VISIT ESTABLISHED PATIENT January 21, 2018 INSTRUCTIONS MEDICATIONS ADMINISTERED No Known Medications [...]
--- OUTSIDE RECORDS SUMMARY | 2020-02-08 07:18 | XMS REPORT ---
Author Author Emilee NO Organization [facility] Address [address] [place] [address] Care Team Providers Care Manager Of Compliance Name Role Phone [email or web address] Unavailable PROBLEMS Type Condition ICD9-CM Code CIT65-RN Code Onset Dates Condition S tatus SNOMED Code Problem Mixed hyperlipidemia E78.2 Active 194431805 Problem Fatty liver K76.0 Active 07027646 7 Problem Obstructive sleep apnea G47.33 Active 82626208 Problem Allergic rhinitis, unspecified J30.9 Active 47378076 Problem Essential hypertension I10 Active 20438614 Problem History of renal cell cancer Z85.528 A ctive 560822588 Problem Prediabetes R73.09 Active 9483989 Problem Diastolic dysfunction I51.9 Active 7541251 Problem Body mass index (bmi) 50-59.9 , adult Z68.43 Active 718369635 Problem Paresthesia of both hands R20.2 Acti ve 295883234 Problem Habitual self-excoriation 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 Acti ve 071678672 Problem BMI 50.0-59.9, adult Z68.43 Active 551943254 Problem Restrictive lung disease J98.4 Activ e 29619567 Problem Splenic artery aneurysm I72.8 Active 99046718 Problem Liver mass R16.0 Active 789057479 Problem Generalized anxiety disorder F41.1 A ctive 19250622 Problem Major depressive disorder, recurrent episode, mild degree F33.0 Active 461216292 Problem Excoriation, neurotic L98.1 Active 06135297 Problem History of tobacco use Z87.891 Active 3207426693533 Problem Primary osteoarthritis involving multiple joints M 15.0 Active 059946719 Problem Isolated proteinuria without specific morphologic lesion R80.0 Active 17733605 Problem 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 Active 498199645 Problem Pulmonary emphysema, unspecified emphysema type J4 3.9 Active 67574683 Problem Chronic prescription opiate use Z79.899 Active 878572935 Problem Tobacco use Z72.0 Active 63126255 0 Problem Bilateral carpal tunnel syndrome G56.03 Active 45677820 Problem Chronic prescription benzodiazepine use Z79.899 Active 281200185 ALLERGIES No Information ENCOUNTERS Encounter Location Date Diagnosis [facility] [address] [id number] [address] [place] [address] May, [facility] [address] [id number] [address] [place] [address] Mar, [facility] [address] [id number] [address] [place] [address] Feb, [facility] [address] [id number] [address] [place] [address] Feb, [facility] [address] [id number] [address] [place] [address] Feb, [facility] [address] [facility] [id number] [address] [place] [address] Feb, Generalized anxiety disorder F41.1 ; Major depressive disorder, recurrent episode, mild degree F33.0 and Habitual self-excoriation F42.4 [facility] [address] [facility] [id number] [address] [place] [phone] Feb, [facility] [address] [facility] [id number] [address] [place] [address] Jan, [facility] [address] [id number] [address] [place] [address] Jan, Pulmonary emphysema, unspeci fied emphysema type J43.9 [facility] [address] [id number] [address] [place] [id number] Jan, Dental examination Z01.20 an d Dental caries K02.9 [facility] [address] [id number] [address] [place] [address] Jan, Generalized anxiety disorder F41.1 and Major depressive disorder, recurrent episode, mild degree F33.0 [facility] [address] [place] [id number] [address] [place] [address] Jan, [facility] [address] [place] [id number] [address] [place] [address] Jan, Generalized anxiety disorder F41.[address] [facility] [address] [place] [id number] [address] [place] [address] Jan, Oral abscess K12.2 and BMI 5 0.0-59.9, adult Z68.43 [facility] [address] [address] Dec, BMI 50.0-59.9, adult Z68.43 and Weight loss counseling, encounter for Z71.3 [place] [address] [address] Dec, [place] [address] [address] Dec, [facility] [address] [address] November, [facility] [address] [address] November, [place] [address] [address] November, Pulmonary emphysema, unspeci fied emphysema type J43.9 ; Restrictive lung disease J98.4 ; BMI 50.0-59.9, adult Z68.43 ; History of renal cell cancer Z85.528 ; Essential hypertension I10 ; Mixed hyperlipidemia E78.2 and Fatty liver K76.0 [facility] [address] [place] [id number] [address] [place] [address] November, Generalized anxiety disorder F41.1 [place] [address] [address] November, Generalized anxiety disorder F41.1 and Major depressive disorder, recurrent episode, mild degree F33.0 [place] [address] [place] [address] [place] [address] November, Generalized anxiety disorder F41.1 ; Major depressive disorder, recurrent episode, mild degree F33.0 and Habitual self-excoriation F42.4 [facility] [id number] [place] [address] November, [facility] [address] [place] [id number] [address] [place] [address] Oct, Generalized anxiety disorder F41.1 [facility] [address] [place] [id number] [address] [place] [address] Oct, [facility] [address] [address] Oct, Influenza-like illness R69 [facility] [address] [place] [id number] [address] [place] [address] Sep, Influenza-like illness R69 [facility] [address] [place] [id number] [address] [place] [address] Sep, Generalized anxiety disorder F41.1 [facility] [address] [place] [id number] [address] [place] [address] Sep, [facility] [address] [place] [id number] [address] [place] [address] Aug, [facility] [id number] [place] [address] Aug, [facility] [address] [place] [id number] [address] [place] [address] Aug, Generalized anxiety disorder F41.[address] [facility] [address] [place] [id number] [address] [place] [address] Aug, Influenza-like illness R69 a nd BMI 50.0-59.9, adult Z68.43 [facility] [address] [place] [id number] [address] [place] [id number] 23 Sudhakar, 2018 Fatty liver K76.0 ; Restrict jean-paul lung disease J98.4 ; Diastolic dysfunction I51.9 ; Body mass index (bmi) 50-59.9 , adult Z68.43 and Chronic prescription opiate use Z79.899 [facility] [address] [place] [id number] [address] [place] [address] Jul, Generalized anxiety disorder F41.1 [facility] [address] [place] [id number] [address] [place] [address] Jul, Generalized anxiety disorder F41.1 [facility] [address] [place] [id number] [address] [place] [address] Jul, Primary osteoarthritis invol ving multiple joints M15.0 [facility] [address] [facility] [id number] [address] [place] [address] Jun, Generalized anxiety disorder F41.1 [place] [address] [place] [id number] [address] [place] [address] Jun, [facility] [address] [place] [id number] [address] [place] [address] Jun, Mixed hyperlipidemia E78.2 [facility] [address] [place] [id number] [place] [address] Jun, Generalized anxiety disorder F41.1 [facility] [address] [place] [id number] [address] [place] [address] Jun, Generalized anxiety disorder F41.1 ; Major depressive disorder, recurrent episode, mild degree F33.0 and Habitual self-excoriation F42.4 [facility] [address] [facility] [id number] [address] [place] [address] May, [facility] [address] [place] [id number] [place] [phone] May, Generalized anxiety disorder F41.1 [facility] [address] [place] [id number] [address] [place] [phone] May, Generalized anxiety disorder F41.1 [facility] [address] [place] [id number] [address] [place] [address] 06 May, 2017 Primary osteoarthritis invol ving multiple joints M15.0 [facility] [address] [id number] [address] [place] [address] 09 Apr, 2017 Major depressive disorder, r ecurrent episode, mild degree F33.0 ; Generalized anxiety disorder F41.1 and Excoriation, neurotic L98.1 [facility] [address] [id number] [address] [place] [address] Apr, Primary osteoarthritis invol ving multiple joints M15.0 [facility] [address] [id number] [address] [place] [address] Apr, Essential hypertension I10 a nd Mixed hyperlipidemia E78.2 [facility] [address] [id number] [address] [place] [address] Apr, Generalized anxiety disorder F41.1 ; Major depressive disorder, recurrent episode, mild degree F33.0 and Habitual self-excoriation F42.4 [facility] [address] [id number] [address] [place] [address] Mar, Generalized anxiety disorder F41.1 ; Major depressive disorder, recurrent episode, mild degree F33.0 and Habitual self-excoriation F42.4 [facility] [address] [id number] [address] [place] [address] Mar, Skin lesion L98.9 [facility] [address] [id number] [address] [place] [address] Mar, Primary osteoarthritis invol ving multiple joints M15.0 [facility] [address] [id number] [address] [place] [address] Mar, [facility] [address] [id number] [address] [place] [address] Mar, [facility] [address] [id number] [address] [place] [address] Feb, Major depressive disorder, r ecurrent episode, mild degree F33.0 ; Generalized anxiety disorder F41.1 and Excoriation, neurotic L98.1 [facility] [address] [facility] [id number] [address] [place] [address] Feb, Generalized anxiety disorder F41.1 [facility] [address] [facility] [id number] [address] [place] [address] Feb, Primary osteoarthritis invol ving multiple joints M15.0 [facility] [address] [facility] [id number] [address] [place] [address] Jan, [facility] [address] [facility] [id number] [address] [place] [address] Jan, Essential hypertension I10 ; Splenic artery aneurysm I72.8 ; Liver mass R16.0 ; Restrictive lung disease J98.4 ; Primary osteoarthritis involving multiple joints M15.0 ; Mixed hyperlipidemia E78.2 ; Bilateral carpal tunnel syndrome G56.03 ; Body mass index (bmi) 50-59.9 , adult Z68.43 and History of tobacco use Z87.891 [place] [address] [facility] [id number] [address] [place] [address] Jan, Major depressive disorder, r ecurrent episode, mild degree F33.0 and Generalized anxiety disorder F41.1 [place] [address] [facility] [id number] [address] [place] [address] Jan, [place] [address] [facility] [id number] [address] [place] [address] Jan, Generalized anxiety disorder F41.1 and Major depressive disorder, recurrent episode, mild degree F33.0 [facility] [address] [facility] [id number] [address] [place] [address] Dec, Primary osteoarthritis invol ving multiple joints M15.0 [facility] [address] [facility] [id number] [address] [place] [address] Dec, Generalized anxiety disorder F41.1 [place] [id number] [facility] [id number] [address] [place] [address] Dec, [place] [address] [facility] [id number] [address] [place] [address] Dec, Major depressive disorder, r ecurrent episode, mild degree F33.0 and Generalized anxiety disorder F41.1 [place] [address] [facility] [id number] [address] [place] [address] Dec, Generalized anxiety disorder F41.1 and Major depressive disorder, recurrent episode, mild degree F33.0 [place] [address] [facility] [id number] [address] [place] [address] November, Mild major depression F32.0 and Primary osteoarthritis involving multiple joints M15.0 [place] [address] [place] [id number] [address] [place] [address] November, Major depressive disorder, r ecurrent episode, mild degree F33.0 and Generalized anxiety disorder F41.1 [place] [id number] [place] [address] November, Primary osteoarthritis invol ving multiple joints M15.0 ; Essential hypertension I10 ; Prediabetes R73.09 ; Mixed hyperlipidemia E78.2 ; Chronic prescription benzodiazepine use Z79.899 ; Chronic prescription opiate use Z79.899 ; Tobacco use Z72.0 ; Bilateral carpal tunnel syndrome G56.03 and Body mass index (bmi) 50-59.9 , adult Z68.43 [place] [id number] [address] [place] [address] November, Primary osteoarthritis invol ving multiple joints M15.0 and Mild major depression F32.0 [place] [address] [facility] [id number] [address] [place] [address] Oct, [place] [id number] [address] [place] [address] Oct, Primary osteoarthritis invol ving multiple joints M15.0 ; Essential hypertension I10 ; Prediabetes R73.09 ; Chronic prescription benzodiazepine use Z79.899 ; Chronic prescription opiate use Z79.899 ; Tobacco use Z72.0 ; Mixed hyperlipidemia E78.2 ; Bilateral carpal tunnel syndrome G56.03 ; Body mass index (bmi) 50-59.9 , adult Z68.43 and Encounter for immunization Z23 [place] [address] [address] Oct, Major depressive disorder, r ecurrent episode, mild degree F33.0 and Generalized anxiety disorder F41.1 [place] [address] [address] Oct, [place] [address] [place] [id number] [place] [address] Oct, [place] [address] [address] Sep, Mild major depression F32.0 [place] [address] [place] [id number] [place] [address] Sep, [place] [address] [place] [id number] [place] [address] Sep, Mild major depression F32.0 and Generalized anxiety disorder F41.1 [place] [address] [address] Sep, Paresthesia of both hands R2 0.2 and Cervical radiculopathy M54.12 [place] [address] [place] [id number] [address] [place] [address] Sep, [facility] [address] [place] [id number] [address] [place] [address] Sep, [place] [address] [place] [id number] [place] [address] Aug, Paresthesia of both hands R2 0.2 and Neck pain M54.2 [place] [address] [place] [id number] [address] [place] [address] Aug, [facility] [address] [place] [id number] [place] [address] Jul, Neck pain M54.2 and Paresthe eddie of both hands R20.2 [place] [address] [place] [id number] [place] [address] Jul, Proteinuria, unspecified typ e R80.9 [place] [address] [place] [id number] [address] [place] [address] Jul, Proteinuria, unspecified typ e R80.9 [place] [address] [facility] [id number] [address] [place] [address] Jul, [place] [address] [place] [id number] [place] [address] Jul, Other specified transient ce rebral ischemias G45.8 [place] [address] [place] [id number] [place] [address] Jun, Diastolic dysfunction I51.9 [place] [address] [place] [id number] [place] [address] Jun, Diastolic dysfunction I51.9 [place] [address] [place] [id number] [place] [address] Jun, Major depressive disorder, s david episode, unspecified F32.9 and Anxiety disorder, unspecified F41.9 [place] [address] [place] [id number] [place] [address] Jun, [place] [address] [place] [id number] [place] [address] Jun, [place] [address] [place] [id number] [place] [address] May, Moderate major depression F3 2.1 and Generalized anxiety disorder F41.1 [place] [address] [place] [id number] [place] [address] May, Major depressive disorder, s david episode, unspecified F32.9 and Anxiety disorder, unspecified F41.9 [place] [address] [place] [id number] [address] [place] [address] 15 May, 2016 [facility] [address] [address] 14 May, 2016 Liver enzyme elevation R74.8 [facility] [address] [place] [id number] [place] [address] 14 May, 2016 Liver enzyme elevation R74.8 [facility] [address] [address] 10 May, 2016 Shortness of breath on exert ion R06.02 ; Essential hypertension I10 ; Mixed hyperlipidemia E78.2 and Tobacco use Z72.0 [facility] [address] [address] 03 May, 2016 [facility] [address] [address] 02 May, 2016 [facility] [address] [address] Apr, Anxiety F41.9 and Depression F32.9 [facility] [address] [address] Apr, [facility] [address] [address] Apr, [facility] [address] [address] Mar, Depression F32.9 and Anxiety F41.9 [facility] [address] [place] [id number] [place] [address] 08 Mar, 2016 Anxiety F41.9 and Depression F32.9 [facility] [address] [address] 06 Mar, 2016 Well woman exam (no gynecolo gical exam) Z00.00 [facility] [address] [address] 02 Mar, 2016 [facility] [address] [id number] [address] [place] [address] Mar, [facility] [address] [id number] [address] [place] [id number] Feb, Dental caries K02.9 [facility] [address] [id number] [address] [place] [address] Feb, [facility] [address] [id number] [address] [place] [address] Feb, Anxiety F41.9 and Depression F32.9 [facility] [address] [id number] [address] [place] [id number] Feb, Dental examination Z01.20 [facility] [address] [id number] [address] [place] [address] Feb, [facility] [address] [id number] [address] [place] [address] Feb, [facility] [address] [id number] [address] [place] [address] Feb, Anxiety F41.9 and Depression F32.9 [facility] [address] [id number] [address] [place] [address] Jan, Severe episode of recurrent major depressive disorder, without psychotic features F33.2 and Anxiety disorder, unspecified F41.9 [facility] [address] [id number] [address] [place] [address] Jan, [facility] [address] [id number] [address] [place] [address] Dec, [facility] [address] [id number] [address] [place] [address] Dec, Anxiety F41.9 and Depression F32.9 [facility] [address] [facility] [id number] [address] [place] [address] Dec, Other specified transient ce rebral ischemias G45.8 and Nocturnal hypoxia G47.34 [facility] [address] [id number] [address] [place] [phone] 18 Dec, 2015 [facility] [address] [id number] [address] [place] [address] 17 Dec, 2015 Other specified transient ce rebral ischemias G45.8 [facility] [address] [id number] [address] [place] [id number] 16 Dec, 2015 Severe episode of recurrent major depressive disorder, without psychotic features F33.2 and Anxiety disorder, unspecified F41.9 [facility] [address] [id number] [address] [place] [id number] 13 Dec, 2015 [facility] [address] [id number] [address] [place] [id number] 13 Dec, 2015 Anxiety F41.9 and Depression F32.9 [facility] [address] [id number] [address] [place] [id number] 07 Dec, 2015 Anxiety F41.9 and Depression F32.9 [facility] [address] [id number] [address] [place] [id number] Dec, [facility] [address] [id number] [address] [place] [phone] November, Anxiety F41.9 and Depression F32.9 [facility] [address] [id number] [address] [place] [id number] November, Severe episode of recurrent major depressive disorder, without psychotic features F33.2 [facility] [address] [id number] [address] [place] [id number] November, Mixed hyperlipidemia E78.2 [facility] [address] [id number] [address] [place] [phone] November, Anxiety F41.9 and Depression F32.9 [facility] [address] [facility] [id number] [address] [place] [phone] 05 Nov, 2015 Prediabetes R73.09 ; Essenti al hypertension I10 ; Anxiety F41.9 ; Depression F32.9 ; Gastroesophageal reflux disease, esophagitis presence not specified K21.9 ; Primary osteoarthritis involving multiple joints M15.0 ; History of renal cell cancer Z85.528 ; Postnasal drip R09.82 ; Allergic rhinitis, unspecified J30.9 and Tobacco use Z72.0 [place] [address] [id number] 11 Oct, 2015 Anxiety F41.9 and Depression F32.9 [place] [address] [id number] 07 Oct, 2015 [place] [address] [id number] Oct, [place] [address] [id number] 14 Sep, 2015 Splenic artery aneurysm I72. 8 [place] [address] [id number] 10 Sep, 2015 Depression F32.9 ; Anxiety F 41.9 ; Chronic prescription benzodiazepine use Z79.899 and Splenic artery aneurysm I72.8 [place] [address] [address] Sep, Depression F32.9 and Anxiety F41.9 [place] [address] [address] Sep, [place] [address] [id number] 18 Aug, 2015 Dehydration E86.0 ; Diarrhea R19.7 ; Nausea R11.0 and Generalized abdominal pain R10.84 [place] [address] [id number] 03 Aug, 2015 [place] [address] [address] Jul, Depression F32.9 [place] [address] [place] [address] Jul, [facility] [address] [id number] [address] [place] [id number] Jul, Anxiety F41.9 and Depression F32.9 [facility] [address] [id number] [address] [place] [id number] Jul, [facility] [address] [id number] [address] [place] [address] Jun, Epigastric pain R10.13 [facility] [address] [id number] [address] [place] [phone] Jun, [facility] [address] [id number] [address] [place] [id number] Jun, [facility] [address] [facility] [id number] [address] [place] [id number] May, [facility] [address] [facility] [id number] [address] [place] [id number] May, [facility] [address] [id number] [address] [place] [id number] Apr, [facility] [address] [facility] [id number] [address] [place] [address] Mar, Anxiety state, unspecified 3 00.00 ; Depression 311 ; Prediabetes 790.29 ; Generalized osteoarthrosis, involving multiple sites 715.09 and Hypertension 401.9 [facility] [address] [id number] [address] [place] [phone] Mar, [facility] [address] [id number] [address] [place] [phone] Feb, [facility] [address] [facility] [id number] [address] [place] [phone] Jan, [facility] [address] [facility] [id number] [address] [place] [phone] Jan, [facility] [address] [facility] [id number] [address] [place] [id number] 08 Jan, 2015 Generalized osteoarthrosis, involving multiple sites 715.09 [facility] [address] [id number] [address] [place] [id number] 07 Jan, 2015 Hx of renal cell cancer V10. 52 [facility] [address] [id number] [address] [place] [id number] 30 Dec, 2014 Generalized osteoarthrosis, involving multiple sites 715.09 and Hx of renal cell cancer V10.52 [facility] [address] [id number] [address] [place] [id number] 24 Dec, 2014 [facility] [address] [id number] [address] [place] [id number] Dec, [facility] [address] [id number] [address] [place] [id number] November, [facility] [address] [id number] [address] [place] [id number] Oct, [facility] [address] [id number] [address] [place] [phone] Oct, [facility] [address] [id number] [address] [place] [phone] Sep, [facility] [address] [id number] [address] [place] [phone] Sep, [facility] [address] [id number] [address] [place] [phone] Sep, [facility] [address] [id number] [address] [place] [id number] Sep, [facility] [address] [id number] [address] [place] [phone] Aug, [facility] [address] [id number] [address] [place] [phone] Aug, IMMUNIZATIONS No Known Immunizations SOCIAL HISTORY [...]
--- OUTSIDE RECORDS SUMMARY | 2020-02-08 07:18 | XMS REPORT ---
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 Name Role Phone LALOJEZALBANIA Unavailable PROBLEMS Type Condition ICD9-CM Code ZHD27-PB Code Onset Dates Condition S tatus SNOMED Code Problem Mixed hyperlipidemia E78.2 Active 921138301 Problem Fatty liver K76.0 Active 41718215 7 Problem Obstructive sleep apnea G47.33 Active 40691320 Problem Allergic rhinitis, unspecified J30.9 Active 66629552 Problem Essential hypertension I10 Active 05797466 Problem History of renal cell cancer Z85.528 A ctive 889965216 Problem Prediabetes R73.09 Active 9404412 Problem Diastolic dysfunction I51.9 Active 5802746 Problem Body mass index (bmi) 50-59.9 , adult Z68.43 Active 803426558 Problem Paresthesia of both hands R20.2 Acti ve 757340377 Problem Habitual self-excoriation F42.4 Acti ve 739239355 Problem BMI 50.0-59.9, adult Z68.43 Active 141582107 Problem Restrictive lung disease J98.4 Activ e 85052202 Problem Splenic artery aneurysm I72.8 Active 83567673 Problem Liver mass R16.0 Active 570623561 Problem Generalized anxiety disorder F41.1 A ctive 57240216 Problem Major depressive disorder, recurrent episode, mild degree F33.0 Active 737800604 Problem Excoriation, neurotic L98.1 Active 55644958 Problem History of tobacco use Z87.891 Active 5653274264647 Problem Primary osteoarthritis involving multiple joints M 15.0 Active 303471819 Problem Isolated proteinuria without specific morphologic lesion R80.0 Active 10454625 Problem 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 Active 088818915 Problem Pulmonary emphysema, unspecified emphysema type J4 3.9 Active 47135463 Problem Chronic prescription opiate use Z79.899 Active 968258420 Problem Tobacco use Z72.0 Active 14811946 0 Problem Bilateral carpal tunnel syndrome G56.03 Active 21523497 Problem Chronic prescription benzodiazepine use Z79.899 Active 391621157 ALLERGIES No Known Allergies ENCOUNTERS Encounter Location Date Diagnosis [facility] [address] [facility] [id number] [address] [place] [address] May, [facility] [address] [facility] [id number] [address] [place] [address] Mar, [facility] [address] [facility] [id number] [address] [place] [address] Mar, [facility] [address] [facility] [id number] [address] [place] [address] Feb, [facility] [address] [facility] [id number] [address] [place] [address] Feb, Generalized anxiety disorder F41.1 and Major depressive disorder, recurrent episode, mild degree F33.0 [facility] [address] [place] [id number] [address] [place] [address] Feb, [facility] [address] [facility] [id number] [address] [place] [address] Feb, [facility] [address] [facility] [id number] [address] [place] [address] Feb, Generalized anxiety disorder F41.1 ; Major depressive disorder, recurrent episode, mild degree F33.0 and Habitual self-excoriation F42.4 [facility] [address] [facility] [id number] [address] [place] [address] Feb, [facility] [address] [facility] [id number] [address] [place] [address] Jan, [facility] [address] [facility] [id number] [address] [place] [address] Jan, Pulmonary emphysema, unspeci fied emphysema type J43.9 [facility] [address] [facility] [id number] [address] [place] [id number] Jan, Dental examination Z01.20 an d Dental caries K02.9 [facility] [address] [facility] [id number] [address] [place] [address] Jan, Generalized anxiety disorder F41.1 and Major depressive disorder, recurrent episode, mild degree F33.0 [facility] [address] [place] [id number] [address] [place] [address] Jan, [facility] [address] [place] [id number] [address] [place] [address] Jan, Generalized anxiety disorder F41.1 [facility] [address] [facility] [id number] [place] [address] Jan, Oral abscess K12.2 and BMI 5 0.0-59.9, adult Z68.43 [place] [address] [place] [id number] [address] [place] [address] Dec, BMI 50.0-59.9, adult Z68.43 and Weight loss counseling, encounter for Z71.3 [place] [address] [place] [id number] [address] [place] [address] Dec, [place] [address] [place] [id number] [place] [address] Dec, [place] [address] [place] [id number] [address] [place] [address] November, [place] [address] [place] [id number] [address] [place] [address] November, [place] [address] [place] [id number] [address] [place] [address] November, Pulmonary emphysema, unspeci fied emphysema type J43.9 ; Restrictive lung disease J98.4 ; BMI 50.0-59.9, adult Z68.43 ; History of renal cell cancer Z85.528 ; Essential hypertension I10 ; Mixed hyperlipidemia E78.2 and Fatty liver K76.0 [place] [address] [place] [id number] [address] [place] [address] November, Generalized anxiety disorder F41.1 [facility] [address] [id number] [address] [place] [address] November, Generalized anxiety disorder F41.1 and Major depressive disorder, recurrent episode, mild degree F33.0 [facility] [address] [facility] [id number] [address] [place] [address] November, Generalized anxiety disorder F41.1 ; Major depressive disorder, recurrent episode, mild degree F33.0 and Habitual self-excoriation F42.4 [facility] [address] [id number] [address] [place] [address] November, [facility] [address] [facility] [id number] [address] [place] [address] Oct, Generalized anxiety disorder F41.1 [facility] [address] [facility] [id number] [address] [place] [address] Oct, [facility] [address] [id number] [address] [place] [address] Oct, Influenza-like illness R69 [facility] [address] [facility] [id number] [address] [place] [address] Sep, Influenza-like illness R69 [facility] [address] [facility] [id number] [address] [place] [address] Sep, Generalized anxiety disorder F41.1 [facility] [address] [facility] [id number] [address] [place] [address] Sep, [facility] [address] [facility] [id number] [address] [place] [address] Aug, [facility] [address] [facility] [id number] [address] [place] [address] Aug, [facility] [address] [facility] [id number] [address] [place] [address] Aug, Generalized anxiety disorder F41.1 [facility] [address] [place] [id number] [address] [place] [address] Aug, Influenza-like illness R69 a nd BMI 50.0-59.9, adult Z68.43 [facility] [address] [place] [id number] [address] [place] [address] Jul, Fatty liver K76.0 ; Restrict jean-paul lung disease J98.4 ; Diastolic dysfunction I51.9 ; Body mass index (bmi) 50-59.9 , adult Z68.43 and Chronic prescription opiate use Z79.899 [facility] [address] [place] [id number] [address] [place] [address] Jul, Generalized anxiety disorder F41.1 [facility] [address] [address] Jul, Generalized anxiety disorder F41.1 [place] [address] [address] Jul, Primary osteoarthritis invol ving multiple joints M15.0 [facility] [address] [address] Jun, Generalized anxiety disorder F41.1 [place] [address] [address] Jun, [facility] [address] [address] Jun, Mixed hyperlipidemia E78.2 [facility] [address] [address] Jun, Generalized anxiety disorder F41.1 [place] [address] [address] Jun, Generalized anxiety disorder F41.1 ; Major depressive disorder, recurrent episode, mild degree F33.0 and Habitual self-excoriation F42.4 [facility] [address] [address] May, [place] [address] [id number] [address] [place] [address] May, Generalized anxiety disorder F41.1 [facility] [address] [id number] [address] [place] [address] May, Generalized anxiety disorder F41.1 [facility] [address] [id number] [address] [place] [address] May, Primary osteoarthritis invol ving multiple joints M15.0 [facility] [address] [id number] [address] [place] [address] Apr, Major depressive disorder, r ecurrent episode, mild degree F33.0 ; Generalized anxiety disorder F41.1 and Excoriation, neurotic L98.1 [place] [address] [id number] [address] [place] [address] Apr, Primary osteoarthritis invol ving multiple joints M15.0 [place] [address] [id number] [address] [place] [address] Apr, Essential hypertension I10 a nd Mixed hyperlipidemia E78.2 [place] [address] [id number] [address] [place] [address] Apr, Generalized anxiety disorder F41.1 ; Major depressive disorder, recurrent episode, mild degree F33.0 and Habitual self-excoriation F42.4 [place] [address] [id number] [address] [place] [address] Mar, Generalized anxiety disorder F41.1 ; Major depressive disorder, recurrent episode, mild degree F33.0 and Habitual self-excoriation F42.4 [place] [address] [id number] [address] [place] [address] Mar, Skin lesion L98.9 [facility] [address] [facility] [id number] [address] [place] [address] Mar, Primary osteoarthritis invol ving multiple joints M15.0 [facility] [address] [id number] [address] [place] [address] Mar, [facility] [address] [facility] [id number] [address] [place] [address] Mar, [facility] [address] [place] [id number] [address] [place] [address] Feb, Major depressive disorder, r ecurrent episode, mild degree F33.0 ; Generalized anxiety disorder F41.1 and Excoriation, neurotic L98.1 [facility] [address] [place] [id number] [address] [place] [address] Feb, Generalized anxiety disorder F41.1 [facility] [address] [place] [id number] [address] [place] [address] Feb, Primary osteoarthritis invol ving multiple joints M15.0 [facility] [address] [place] [id number] [address] [place] [address] Jan, [place] [address] [place] [id number] [address] [place] [address] Jan, Essential hypertension I10 ; Splenic artery aneurysm I72.8 ; Liver mass R16.0 ; Restrictive lung disease J98.4 ; Primary osteoarthritis involving multiple joints M15.0 ; Mixed hyperlipidemia E78.2 ; Bilateral carpal tunnel syndrome G56.03 ; Body mass index (bmi) 50-59.9 , adult Z68.43 and History of tobacco use Z87.891 [place] [address] [place] [id number] [address] [place] [address] Jan, Major depressive disorder, r ecurrent episode, mild degree F33.0 and Generalized anxiety disorder F41.1 [facility] [address] [place] [id number] [address] [place] [address] Jan, [place] [address] [place] [id number] [address] [place] [address] Jan, Generalized anxiety disorder F41.1 and Major depressive disorder, recurrent episode, mild degree F33.0 [facility] [address] [place] [id number] [address] [place] [address] Dec, Primary osteoarthritis invol ving multiple joints M15.0 [facility] [address] [facility] [id number] [address] [place] [address] Dec, Generalized anxiety disorder F41.1 [facility] [address] [id number] [address] [place] [address] Dec, [facility] [address] [facility] [id number] [address] [place] [address] Dec, Major depressive disorder, r ecurrent episode, mild degree F33.0 and Generalized anxiety disorder F41.1 [facility] [address] [facility] [id number] [address] [place] [address] Dec, Generalized anxiety disorder F41.1 and Major depressive disorder, recurrent episode, mild degree F33.0 [facility] [address] [facility] [id number] [address] [place] [address] November, Mild major depression F32.0 and Primary osteoarthritis involving multiple joints M15.0 [facility] [address] [facility] [id number] [address] [place] [address] November, Major depressive disorder, r ecurrent episode, mild degree F33.0 and Generalized anxiety disorder F41.1 [facility] [address] [facility] [id number] [address] [place] [address] November, Primary osteoarthritis invol ving multiple joints M15.0 ; Essential hypertension I10 ; Prediabetes R73.09 ; Mixed hyperlipidemia E78.2 ; Chronic prescription benzodiazepine use Z79.899 ; Chronic prescription opiate use Z79.899 ; Tobacco use Z72.0 ; Bilateral carpal tunnel syndrome G56.03 and Body mass index (bmi) 50-59.9 , adult Z68.43 [facility] [address] [facility] [id number] [address] [place] [address] November, Primary osteoarthritis invol ving multiple joints M15.0 and Mild major depression F32.0 [facility] [address] [facility] [id number] [address] [place] [address] Oct, [facility] [address] [facility] [id number] [address] [place] [address] Oct, Primary osteoarthritis invol ving multiple joints M15.0 ; Essential hypertension I10 ; Prediabetes R73.09 ; Chronic prescription benzodiazepine use Z79.899 ; Chronic prescription opiate use Z79.899 ; Tobacco use Z72.0 ; Mixed hyperlipidemia E78.2 ; Bilateral carpal tunnel syndrome G56.03 ; Body mass index (bmi) 50-59.9 , adult Z68.43 and Encounter for immunization Z23 [facility] [address] [facility] [id number] [address] Oct, Major depressive disorder, r ecurrent episode, mild degree F33.0 and Generalized anxiety disorder F41.1 [place] [address] [place] [id number] [address] [place] [address] Oct, [place] [address] [address] Oct, [place] [address] [place] [id number] [address] [place] [address] Sep, Mild major depression F32.0 [place] [address] [place] [id number] [address] [place] [address] Sep, [place] [address] [place] [id number] [address] [place] [address] Sep, Mild major depression F32.0 and Generalized anxiety disorder F41.1 [place] [address] [facility] [id number] [address] [place] [address] Sep, Paresthesia of both hands R2 0.2 and Cervical radiculopathy M54.12 [place] [address] [place] [id number] [address] [place] [address] Sep, [place] [address] [place] [id number] [address] [place] [address] Sep, [place] [address] [address] Aug, Paresthesia of both hands R2 0.2 and Neck pain M54.2 [place] [address] [place] [id number] [place] [address] Aug, [facility] [address] [place] [id number] [address] [place] [address] Jul, Neck pain M54.2 and Paresthe eddie of both hands R20.2 [place] [address] [address] Jul, Proteinuria, unspecified typ e R80.9 [place] [address] [address] Jul, Proteinuria, unspecified typ e R80.9 [place] [address] [address] Jul, [place] [address] [address] Jul, Other specified transient ce rebral ischemias G45.8 [place] [address] [address] Jun, Diastolic dysfunction I51.9 [place] [address] [address] Jun, Diastolic dysfunction I51.9 [place] [address] [address] Jun, Major depressive disorder, s david episode, unspecified F32.9 and Anxiety disorder, unspecified F41.9 [place] [address] [address] Jun, [place] [address] [place] [id number] [place] [address] Jun, [place] [address] [address] May, Moderate major depression F3 2.1 and Generalized anxiety disorder F41.1 [facility] [address] [facility] [id number] [address] [place] [address] 16 May, 2016 Major depressive disorder, s david episode, unspecified F32.9 and Anxiety disorder, unspecified F41.9 [facility] [address] [facility] [id number] [address] [place] [address] 15 May, 2016 [facility] [address] [facility] [id number] [address] [place] [address] 14 May, 2016 Liver enzyme elevation R74.8 [facility] [address] [facility] [id number] [address] [place] [address] 14 May, 2016 Liver enzyme elevation R74.8 [facility] [address] [facility] [id number] [address] [place] [address] 10 May, 2016 Shortness of breath on exert ion R06.02 ; Essential hypertension I10 ; Mixed hyperlipidemia E78.2 and Tobacco use Z72.0 [facility] [address] [facility] [id number] [address] [place] [address] 03 May, 2016 [facility] [address] [facility] [id number] [address] [place] [address] May, [facility] [address] [facility] [id number] [address] [place] [address] Apr, Anxiety F41.9 and Depression F32.9 [facility] [address] [facility] [id number] [address] [place] [address] Apr, [facility] [address] [facility] [id number] [address] [place] [address] Apr, [facility] [address] [facility] [id number] [address] [place] [address] Mar, Depression F32.9 and Anxiety F41.9 [facility] [address] [facility] [id number] [address] [place] [address] 08 Mar, 2016 Anxiety F41.9 and Depression F32.9 [facility] [address] [id number] [address] [place] [address] Mar, Well woman exam (no gynecolo gical exam) Z00.00 [facility] [address] [id number] [address] [place] [address] Mar, [facility] [address] [id number] [address] [place] [address] Mar, [facility] [address] [id number] [address] [place] [id number] Feb, Dental caries K02.9 [facility] [address] [id number] [address] [place] [address] Feb, [facility] [address] [id number] [address] [place] [address] Feb, Anxiety F41.9 and Depression F32.9 [facility] [address] [id number] [address] [place] [id number] Feb, Dental examination Z01.20 [facility] [address] [id number] [address] [place] [address] Feb, [facility] [address] [id number] [address] [place] [address] Feb, [facility] [address] [id number] [address] [place] [address] Feb, Anxiety F41.9 and Depression F32.9 [facility] [address] [id number] [address] [place] [address] Jan, Severe episode of recurrent major depressive disorder, without psychotic features F33.2 and Anxiety disorder, unspecified F41.9 [facility] [address] [id number] [address] [place] [address] Jan, [facility] [address] [id number] [address] [place] [address] Dec, [facility] [address] [id number] [address] [place] [address] 28 Dec, 2015 Anxiety F41.9 and Depression F32.9 [place] [address] [id number] [address] [place] [id number] 24 Dec, 2015 Other specified transient ce rebral ischemias G45.8 and Nocturnal hypoxia G47.34 [place] [address] [id number] [address] [place] [id number] 18 Dec, 2015 [place] [address] [id number] [address] [place] [id number] 17 Dec, 2015 Other specified transient ce rebral ischemias G45.8 [place] [address] [id number] [address] [place] [id number] 16 Dec, 2015 Severe episode of recurrent major depressive disorder, without psychotic features F33.2 and Anxiety disorder, unspecified F41.9 [place] [address] [id number] [address] [place] [id number] Dec, [place] [address] [id number] [address] [place] [phone] Dec, Anxiety F41.9 and Depression F32.9 [place] [address] [facility] [id number] [address] [place] [id number] Dec, Anxiety F41.9 and Depression F32.9 [place] [address] [id number] [address] [place] [id number] Dec, [place] [address] [id number] [address] [place] [id number] November, Anxiety F41.9 and Depression F32.9 [place] [address] [facility] [id number] [address] [place] [id number] November, Severe episode of recurrent major depressive disorder, without psychotic features F33.2 [place] [address] [id number] [address] [place] [phone] November, Mixed hyperlipidemia E78.2 [place] [address] [id number] 10 Nov, 2015 Anxiety F41.9 and Depression F32.9 [place] [address] [address] 05 Nov, 2015 Prediabetes R73.09 ; Essenti al hypertension I10 ; Anxiety F41.9 ; Depression F32.9 ; Gastroesophageal reflux disease, esophagitis presence not specified K21.9 ; Primary osteoarthritis involving multiple joints M15.0 ; History of renal cell cancer Z85.528 ; Postnasal drip R09.82 ; Allergic rhinitis, unspecified J30.9 and Tobacco use Z72.0 [place] [address] [address] 11 Oct, 2015 Anxiety F41.9 and Depression F32.9 [place] [address] [id number] 07 Oct, 2015 [place] [address] [address] Oct, [place] [address] [address] 14 Sep, 2015 Splenic artery aneurysm I72. 8 [place] [address] [address] 10 Sep, 2015 Depression F32.9 ; Anxiety F 41.9 ; Chronic prescription benzodiazepine use Z79.899 and Splenic artery aneurysm I72.8 [place] [address] [address] 10 Sep, 2015 Depression F32.9 and Anxiety F41.9 [place] [address] [address] 02 Sep, 2015 [place] [address] [address] 18 Aug, 2015 Dehydration E86.0 ; Diarrhea R19.7 ; Nausea R11.0 and Generalized abdominal pain R10.84 [facility] [address] [id number] [address] [place] [phone] Aug, [facility] [address] [id number] [address] [place] [address] Jul, Depression F32.9 [facility] [address] [id number] [address] [place] [id number] Jul, [facility] [address] [id number] [address] [place] [address] Jul, Anxiety F41.9 and Depression F32.9 [facility] [address] [id number] [address] [place] [address] Jul, [facility] [address] [id number] [address] [place] [id number] Jun, Epigastric pain R10.13 [facility] [address] [id number] [address] [place] [address] Jun, [facility] [address] [id number] [address] [place] [address] Jun, [facility] [address] [facility] [id number] [address] [place] [phone] May, [facility] [address] [facility] [id number] [address] [place] [phone] May, [facility] [address] [facility] [id number] [address] [place] [address] Apr, [facility] [address] [facility] [id number] [address] [place] [address] Mar, Anxiety state, unspecified 3 00.00 ; Depression 311 ; Prediabetes 790.29 ; Generalized osteoarthrosis, involving multiple sites 715.09 and Hypertension 401.9 [facility] [address] [id number] [address] [place] [address] Mar, [facility] [address] [facility] [id number] [address] [place] [address] Feb, [facility] [address] [id number] [address] [place] [address] Jan, [facility] [address] [id number] [address] [place] [phone] Jan, [facility] [address] [id number] [address] [place] [address] Jan, Generalized osteoarthrosis, involving multiple sites 715.09 [facility] [address] [id number] [address] [place] [id number] Jan, Hx of renal cell cancer V10. 52 [facility] [address] [id number] [address] [place] [address] Dec, Generalized osteoarthrosis, involving multiple sites 715.09 and Hx of renal cell cancer V10.52 [facility] [address] [id number] [address] [place] [address] Dec, [facility] [address] [id number] [address] [place] [phone] Dec, [facility] [address] [id number] [address] [place] [phone] November, [facility] [address] [id number] [address] [place] [address] Oct, [facility] [address] [id number] [address] [place] [address] Oct, [facility] [address] [id number] [address] [place] [phone] Sep, [facility] [address] [id number] [address] [place] [phone] Sep, [facility] [address] [id number] [address] [place] [phone] Sep, [facility] [address] [id number] [address] [place] [id number] Sep, [facility] [address] [facility] [id number] [address] [place] [phone] Aug, [facility] [address] [facility] [id number] [address] [place] [phone] Aug, IMMUNIZATIONS No Known Immunizations SOCIAL HISTORY Never Assessed REASON FOR VISIT RLD f/u- TMcdonald PLAN OF CARE Activity Details Follow Up 6 Months Reason:COPD VITAL SIGNS Height 62 in 2017-12-09 Weight 291.1 lbs 2017-12-09 Temperature 97.8 degrees Fahrenheit 2017-12-09 Heart Rate 88 bpm 2017-12-09 Respiratory Rate 20 2017-12-09 BMI 53.24 kg/m2 2017-12-09 Blood pressure systolic 100 mmHg 2017-12-09 Blood pressure diastolic 68 mmHg 2017-12-09 MEDICATIONS Medication Instructions Dosage Frequency Start Date End Date Duration S tatus Diazepam 5 mg Orally Once a day as needed for anxiety 0.5 tablet 30 days Active Vitamin E Complete Activ e ProAir HFA 108 (90 Base) MCG/ACT Inhalation every 4 hrs 2 puffs as ne eded 4h Active Atorvastatin Calcium 40 MG TAKE ONE TABLET BY MOUTH ONCE DAILY 30 Active Furosemide 20 MG TAKE ONE TABLET BY MOUTH ONCE DAILY 30 Active Hydrocodone-Acetaminophen 5-325 MG Orally 2 times a day as n eeded for pain take 1 tablet Oct, 28 Active Remeron 15 mg Orally Once a day at bedtime 1 tablet at bedtime Active Omeprazole 40 MG TAKE ONE CAPSULE BY MOUTH ONCE DAILY 30 Active Potassium Chloride ER 20 MEQ TAKE ONE TABLET BY MOUTH ONCE DAILY WITH FOOD 30 Active Atenolol 50 MG TAKE ONE TABLET BY MOUTH ONCE DAILY 90 Active Cymbalta 30 MG Orally Once a day 3 capsules 24h Active Stiolto Respimat 2.5-2.5 MCG/ACT Inhalation Once a day 2 puffs 24h November, Active Wellbutrin XL 300 MG Orally Once a day 1 tablet in the morning 24h Active Tizanidine HCl 2 MG TAKE ONE TABLET BY MOUTH EVERY 8 HOURS NE EDED 30 Active Wellbutrin XL 150 MG Orally Once a day (along wit h 300 mg tablet to equal 450 mg daily 1 tablet in the morning A ctive RESULTS No Results PROCEDURES No Known procedures [...]
--- OUTSIDE RECORDS SUMMARY | 2020-02-08 07:18 | XMS REPORT ---
Author Author Emilee MAY Organization [facility] Address [address] [place] [address] Care Team Providers Care Electronic Commerce Specialist Name Role Phone LALOJEZALBANIA Unavailable PROBLEMS Type Condition ICD9-CM Code DIZ16-RO Code Onset Dates Condition S tatus SNOMED Code Problem Mixed hyperlipidemia E78.2 Active 054353936 Problem Fatty liver K76.0 Active 73194706 7 Problem Obstructive sleep apnea G47.33 Active 01079069 Problem Allergic rhinitis, unspecified J30.9 Active 99086435 Problem Essential hypertension I10 Active 47464700 Problem History of renal cell cancer Z85.528 A ctive 424981520 Problem Prediabetes R73.09 Active 9018197 Problem Diastolic dysfunction I51.9 Active 4744852 Problem Body mass index (bmi) 50-59.9 , adult Z68.43 Active 239051424 Problem Paresthesia of both hands R20.2 Acti ve 909157820 Problem Habitual self-excoriation F42.4 Acti ve 200175239 Problem BMI 50.0-59.9, adult Z68.43 Active 815029312 Problem Restrictive lung disease J98.4 Activ e 89734110 Problem Splenic artery aneurysm I72.8 Active 70816120 Problem Liver mass R16.0 Active 301975827 Problem Generalized anxiety disorder F41.1 A ctive 73427864 Problem Major depressive disorder, recurrent episode, mild degree F33.0 Active 863808250 Problem Excoriation, neurotic L98.1 Active 63081077 Problem History of tobacco use Z87.891 Active 8629562571745 Problem Primary osteoarthritis involving multiple joints M 15.0 Active 243297478 Problem Isolated proteinuria without specific morphologic lesion R80.0 Active 19529643 Problem 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 Active 383796677 Problem Pulmonary emphysema, unspecified emphysema type J4 3.9 Active 90179231 Problem Chronic prescription opiate use Z79.899 Active 896745295 Problem Tobacco use Z72.0 Active 14102832 0 Problem Bilateral carpal tunnel syndrome G56.03 Active 65786884 Problem Chronic prescription benzodiazepine use Z79.899 Active 197733999 ALLERGIES No Information ENCOUNTERS Encounter Location Date Diagnosis [facility] [address] [facility] [id number] [address] [place] [phone] May, [facility] [address] [facility] [id number] [address] [place] [phone] Mar, [facility] [address] [facility] [id number] [address] [place] [phone] Mar, [facility] [address] [facility] [id number] [address] [place] [phone] Feb, [facility] [address] [facility] [id number] [address] [place] [phone] Feb, Generalized anxiety disorder F41.1 and Major depressive disorder, recurrent episode, mild degree F33.0 [facility] [address] [facility] [id number] [address] [place] [phone] Feb, [facility] [address] [facility] [id number] [address] [place] [phone] Feb, [facility] [address] [facility] [id number] [address] [place] [id number] Feb, Generalized anxiety disorder F41.1 ; Major depressive disorder, recurrent episode, mild degree F33.0 and Habitual self-excoriation F42.4 [facility] [address] [facility] [id number] [address] [place] [phone] Feb, [facility] [address] [facility] [id number] [address] [place] [phone] Jan, [facility] [address] [facility] [id number] [address] [place] [phone] Jan, Pulmonary emphysema, unspeci fied emphysema type J43.9 [facility] [address] [id number] [address] [place] [id number] Jan, Dental examination Z01.20 an d Dental caries K02.9 [facility] [address] [place] [id number] [address] [place] [phone] Jan, Generalized anxiety disorder F41.1 and Major depressive disorder, recurrent episode, mild degree F33.0 [facility] [address] [place] [id number] [address] [place] [phone] Jan, [facility] [address] [place] [id number] [place] [phone] Jan, Generalized anxiety disorder F41.1 [facility] [address] [place] [id number] [place] [address] Jan, Oral abscess K12.2 and BMI 5 0.0-59.9, adult Z68.43 [place] [address] [address] Dec, BMI 50.0-59.9, adult Z68.43 and Weight loss counseling, encounter for Z71.3 [place] [address] [address] Dec, [place] [address] [address] Dec, [place] [address] [place] [id number] [address] [place] [phone] November, [place] [address] [place] [id number] [address] [place] [phone] November, [place] [address] [place] [id number] [address] [place] [address] November, Pulmonary emphysema, unspeci fied emphysema type J43.9 ; Restrictive lung disease J98.4 ; BMI 50.0-59.9, adult Z68.43 ; History of renal cell cancer Z85.528 ; Essential hypertension I10 ; Mixed hyperlipidemia E78.2 and Fatty liver K76.0 [place] [address] [address] November, Generalized anxiety disorder F41.1 [facility] [address] [id number] [address] [place] [id number] November, Generalized anxiety disorder F41.1 and Major depressive disorder, recurrent episode, mild degree F33.0 [facility] [address] [facility] [id number] [address] [place] [phone] November, Generalized anxiety disorder F41.1 ; Major depressive disorder, recurrent episode, mild degree F33.0 and Habitual self-excoriation F42.4 [facility] [address] [id number] [address] [place] [phone] November, [facility] [address] [facility] [id number] [address] [place] [phone] Oct, Generalized anxiety disorder F41.1 [facility] [address] [facility] [id number] [address] [place] [phone] Oct, [facility] [address] [id number] [address] [place] [phone] Oct, Influenza-like illness R69 [facility] [address] [facility] [id number] [address] [place] [id number] Sep, Influenza-like illness R69 [facility] [address] [facility] [id number] [address] [place] [phone] Sep, Generalized anxiety disorder F41.1 [facility] [address] [facility] [id number] [address] [place] [phone] Sep, [facility] [address] [facility] [id number] [address] [place] [id number] Aug, [facility] [address] [facility] [id number] [address] [place] [phone] Aug, [facility] [address] [facility] [id number] [address] [place] [id number] Aug, Generalized anxiety disorder F41.1 [facility] [address] [place] [id number] [address] [place] [phone] Aug, Influenza-like illness R69 a nd BMI 50.0-59.9, adult Z68.43 [facility] [address] [place] [id number] [address] [place] [id number] Jul, Fatty liver K76.0 ; Restrict jean-paul lung disease J98.4 ; Diastolic dysfunction I51.9 ; Body mass index (bmi) 50-59.9 , adult Z68.43 and Chronic prescription opiate use Z79.899 [facility] [address] [address] Jul, Generalized anxiety disorder F41.1 [place] [address] [address] Jul, Generalized anxiety disorder F41.1 [place] [address] [address] Jul, Primary osteoarthritis invol ving multiple joints M15.0 [facility] [address] [address] Jun, Generalized anxiety disorder F41.1 [place] [address] [address] Jun, [facility] [address] [address] Jun, Mixed hyperlipidemia E78.2 [facility] [address] [address] Jun, Generalized anxiety disorder F41.1 [place] [address] [address] Jun, Generalized anxiety disorder F41.1 ; Major depressive disorder, recurrent episode, mild degree F33.0 and Habitual self-excoriation F42.4 [facility] [address] [address] May, [place] [address] [id number] [address] [place] [address] May, Generalized anxiety disorder F41.1 [facility] [address] [id number] [address] [place] [address] May, Generalized anxiety disorder F41.1 [facility] [address] [id number] [address] [place] [phone] May, Primary osteoarthritis invol ving multiple joints M15.0 [facility] [address] [id number] [address] [place] [id number] Apr, Major depressive disorder, r ecurrent episode, mild degree F33.0 ; Generalized anxiety disorder F41.1 and Excoriation, neurotic L98.1 [place] [address] [id number] [address] [place] [address] Apr, Primary osteoarthritis invol ving multiple joints M15.0 [place] [address] [facility] [id number] [address] [place] [phone] Apr, Essential hypertension I10 a nd Mixed hyperlipidemia E78.2 [place] [address] [facility] [id number] [address] [place] [id number] Apr, Generalized anxiety disorder F41.1 ; Major depressive disorder, recurrent episode, mild degree F33.0 and Habitual self-excoriation F42.4 [place] [address] [id number] [address] [place] [phone] Mar, Generalized anxiety disorder F41.1 ; Major depressive disorder, recurrent episode, mild degree F33.0 and Habitual self-excoriation F42.4 [place] [address] [id number] [address] [place] [phone] Mar, Skin lesion L98.9 [facility] [address] [id number] [address] [place] [id number] Mar, Primary osteoarthritis invol ving multiple joints M15.0 [facility] [address] [id number] [address] [place] [id number] Mar, [facility] [address] [facility] [id number] [address] [place] [phone] Mar, [facility] [address] [facility] [id number] [address] [place] [phone] Feb, Major depressive disorder, r ecurrent episode, mild degree F33.0 ; Generalized anxiety disorder F41.1 and Excoriation, neurotic L98.1 [facility] [address] [place] [id number] [address] [place] [phone] Feb, Generalized anxiety disorder F41.1 [facility] [address] [facility] [id number] [address] [place] [address] Feb, Primary osteoarthritis invol ving multiple joints M15.0 [facility] [address] [place] [id number] [address] [place] [id number] Jan, [facility] [address] [place] [id number] [address] [place] [id number] Jan, Essential hypertension I10 ; Splenic artery aneurysm I72.8 ; Liver mass R16.0 ; Restrictive lung disease J98.4 ; Primary osteoarthritis involving multiple joints M15.0 ; Mixed hyperlipidemia E78.2 ; Bilateral carpal tunnel syndrome G56.03 ; Body mass index (bmi) 50-59.9 , adult Z68.43 and History of tobacco use Z87.891 [place] [address] [place] [id number] [address] [place] [id number] Jan, Major depressive disorder, r ecurrent episode, mild degree F33.0 and Generalized anxiety disorder F41.1 [facility] [address] [facility] [id number] [address] [place] [id number] Jan, [place] [address] [place] [id number] [address] [place] [address] Jan, Generalized anxiety disorder F41.1 and Major depressive disorder, recurrent episode, mild degree F33.0 [facility] [address] [place] [id number] [address] [place] [id number] Dec, Primary osteoarthritis invol ving multiple joints M15.0 [facility] [address] [id number] [address] [place] [address] Dec, Generalized anxiety disorder F41.1 [facility] [address] [id number] [address] [place] [phone] Dec, [facility] [address] [facility] [id number] [address] [place] [id number] Dec, Major depressive disorder, r ecurrent episode, mild degree F33.0 and Generalized anxiety disorder F41.1 [facility] [address] [facility] [id number] [address] [place] [address] Dec, Generalized anxiety disorder F41.1 and Major depressive disorder, recurrent episode, mild degree F33.0 [facility] [address] [facility] [id number] [address] [place] [address] November, Mild major depression F32.0 and Primary osteoarthritis involving multiple joints M15.0 [facility] [address] [facility] [id number] [address] [place] [id number] November, Major depressive disorder, r ecurrent episode, mild degree F33.0 and Generalized anxiety disorder F41.1 [facility] [address] [facility] [id number] [address] [place] [address] November, Primary osteoarthritis invol ving multiple joints M15.0 ; Essential hypertension I10 ; Prediabetes R73.09 ; Mixed hyperlipidemia E78.2 ; Chronic prescription benzodiazepine use Z79.899 ; Chronic prescription opiate use Z79.899 ; Tobacco use Z72.0 ; Bilateral carpal tunnel syndrome G56.03 and Body mass index (bmi) 50-59.9 , adult Z68.43 [facility] [address] [facility] [id number] [address] [place] [id number] November, Primary osteoarthritis invol ving multiple joints M15.0 and Mild major depression F32.0 [facility] [address] [facility] [id number] [address] [place] [phone] Oct, [facility] [address] [facility] [id number] [address] [place] [address] Oct, Primary osteoarthritis invol ving multiple joints M15.0 ; Essential hypertension I10 ; Prediabetes R73.09 ; Chronic prescription benzodiazepine use Z79.899 ; Chronic prescription opiate use Z79.899 ; Tobacco use Z72.0 ; Mixed hyperlipidemia E78.2 ; Bilateral carpal tunnel syndrome G56.03 ; Body mass index (bmi) 50-59.9 , adult Z68.43 and Encounter for immunization Z23 [place] [address] [facility] [id number] [place] [address] Oct, Major depressive disorder, r ecurrent episode, mild degree F33.0 and Generalized anxiety disorder F41.1 [place] [address] [place] [id number] [address] [place] [address] Oct, [place] [address] [address] Oct, [place] [address] [facility] [id number] [address] [place] [address] Sep, Mild major depression F32.0 [place] [address] [place] [id number] [address] [place] [address] Sep, [place] [address] [place] [id number] [address] [place] [id number] Sep, Mild major depression F32.0 and Generalized anxiety disorder F41.1 [place] [address] [facility] [id number] [address] [place] [address] Sep, Paresthesia of both hands R2 0.2 and Cervical radiculopathy M54.12 [place] [address] [facility] [id number] [address] [place] [address] Sep, [place] [address] [place] [id number] [address] [place] [address] Sep, [place] [address] [place] [id number] [address] [place] [address] Aug, Paresthesia of both hands R2 0.2 and Neck pain M54.2 [place] [address] [place] [id number] [place] [address] Aug, [facility] [address] [facility] [id number] [address] [place] [address] Jul, Neck pain M54.2 and Paresthe eddie of both hands R20.2 [place] [address] [place] [id number] [place] [address] Jul, Proteinuria, unspecified typ e R80.9 [place] [address] [address] Jul, Proteinuria, unspecified typ e R80.9 [place] [address] [address] Jul, [place] [address] [address] Jul, Other specified transient ce rebral ischemias G45.8 [place] [address] [address] Jun, Diastolic dysfunction I51.9 [place] [address] [address] Jun, Diastolic dysfunction I51.9 [place] [address] [address] Jun, Major depressive disorder, s david episode, unspecified F32.9 and Anxiety disorder, unspecified F41.9 [place] [address] [address] Jun, [place] [address] [place] [id number] [address] [place] [address] Jun, [place] [address] [address] May, Moderate major depression F3 2.1 and Generalized anxiety disorder F41.1 [facility] [address] [facility] [id number] [address] [place] [id number] 16 May, 2016 Major depressive disorder, s david episode, unspecified F32.9 and Anxiety disorder, unspecified F41.9 [facility] [address] [facility] [id number] [address] [place] [id number] 15 May, 2016 [facility] [address] [facility] [id number] [address] [place] [phone] 14 May, 2016 Liver enzyme elevation R74.8 [facility] [address] [facility] [id number] [address] [place] [id number] 14 May, 2016 Liver enzyme elevation R74.8 [facility] [address] [facility] [id number] [address] [place] [id number] 10 May, 2016 Shortness of breath on exert ion R06.02 ; Essential hypertension I10 ; Mixed hyperlipidemia E78.2 and Tobacco use Z72.0 [facility] [address] [facility] [id number] [address] [place] [id number] 03 May, 2016 [facility] [address] [facility] [id number] [address] [place] [address] May, [facility] [address] [facility] [id number] [address] [place] [address] Apr, Anxiety F41.9 and Depression F32.9 [facility] [address] [facility] [id number] [address] [place] [address] Apr, [facility] [address] [facility] [id number] [address] [place] [address] Apr, [facility] [address] [facility] [id number] [address] [place] [address] Mar, Depression F32.9 and Anxiety F41.9 [facility] [address] [facility] [id number] [address] [place] [address] Mar, Anxiety F41.9 and Depression F32.9 [facility] [address] [id number] [address] [place] [id number] Mar, Well woman exam (no gynecolo gical exam) Z00.00 [facility] [address] [id number] [address] [place] [address] Mar, [facility] [address] [id number] [address] [place] [address] Mar, [facility] [address] [id number] [address] [place] [id number] Feb, Dental caries K02.9 [facility] [address] [id number] [address] [place] [address] Feb, [facility] [address] [id number] [address] [place] [address] Feb, Anxiety F41.9 and Depression F32.9 [facility] [address] [id number] [address] [place] [id number] Feb, Dental examination Z01.20 [facility] [address] [id number] [address] [place] [phone] Feb, [facility] [address] [id number] [address] [place] [address] Feb, [facility] [address] [id number] [address] [place] [phone] Feb, Anxiety F41.9 and Depression F32.9 [facility] [address] [id number] [address] [place] [id number] Jan, Severe episode of recurrent major depressive disorder, without psychotic features F33.2 and Anxiety disorder, unspecified F41.9 [facility] [address] [id number] [address] [place] [phone] Jan, [facility] [address] [id number] [address] [place] [id number] Dec, [facility] [address] [id number] [address] [place] [id number] 28 Dec, 2015 Anxiety F41.9 and Depression F32.9 [place] [address] [id number] [address] [place] [id number] 24 Dec, 2015 Other specified transient ce rebral ischemias G45.8 and Nocturnal hypoxia G47.34 [place] [address] [id number] [address] [place] [phone] 18 Dec, 2015 [place] [address] [id number] [address] [place] [id number] 17 Dec, 2015 Other specified transient ce rebral ischemias G45.8 [place] [address] [id number] [address] [place] [id number] 16 Dec, 2015 Severe episode of recurrent major depressive disorder, without psychotic features F33.2 and Anxiety disorder, unspecified F41.9 [place] [address] [facility] [id number] [address] [place] [phone] Dec, [place] [address] [id number] [address] [place] [phone] Dec, Anxiety F41.9 and Depression F32.9 [place] [address] [facility] [id number] [address] [place] [id number] 07 Dec, 2015 Anxiety F41.9 and Depression F32.9 [place] [address] [address] [facility] [id number] [address] [place] [id number] Dec, [facility] [address] [id number] [address] [place] [id number] November, Anxiety F41.9 and Depression F32.9 [place] [address] [address] [facility] [id number] [address] [place] [id number] November, Severe episode of recurrent major depressive disorder, without psychotic features F33.2 [place] [address] [address] [facility] [id number] [address] [place] [phone] November, Mixed hyperlipidemia E78.2 [place] [address] [id number] 10 Nov, 2015 Anxiety F41.9 and Depression F32.9 [place] [address] [id number] 05 Nov, 2015 Prediabetes R73.09 ; Essenti al hypertension I10 ; Anxiety F41.9 ; Depression F32.9 ; Gastroesophageal reflux disease, esophagitis presence not specified K21.9 ; Primary osteoarthritis involving multiple joints M15.0 ; History of renal cell cancer Z85.528 ; Postnasal drip R09.82 ; Allergic rhinitis, unspecified J30.9 and Tobacco use Z72.0 [place] [address] [phone] 11 Oct, 2015 Anxiety F41.9 and Depression F32.9 [place] [address] [id number] 07 Oct, 2015 [place] [address] [id number] Oct, [place] [address] [address] 14 Sep, 2015 Splenic artery aneurysm I72. 8 [place] [address] [phone] 10 Sep, 2015 Depression F32.9 ; Anxiety F 41.9 ; Chronic prescription benzodiazepine use Z79.899 and Splenic artery aneurysm I72.8 [place] [address] [id number] 10 Sep, 2015 Depression F32.9 and Anxiety F41.9 [place] [address] [id number] 02 Sep, 2015 [place] [address] [id number] 18 Aug, 2015 Dehydration E86.0 ; Diarrhea R19.7 ; Nausea R11.0 and Generalized abdominal pain R10.84 [facility] [address] [facility] [id number] [address] [place] [id number] Aug, [facility] [address] [facility] [id number] [address] [place] [phone] Jul, Depression F32.9 [facility] [address] [facility] [id number] [address] [place] [id number] Jul, [facility] [address] [facility] [id number] [address] [place] [id number] Jul, Anxiety F41.9 and Depression F32.9 [facility] [address] [facility] [id number] [address] [place] [id number] Jul, [facility] [address] [facility] [id number] [address] [place] [id number] Jun, Epigastric pain R10.13 [facility] [address] [facility] [id number] [address] [place] [phone] Jun, [facility] [address] [facility] [id number] [address] [place] [phone] Jun, [facility] [address] [place] [id number] [address] [place] [id number] May, [facility] [address] [facility] [id number] [address] [place] [phone] May, [facility] [address] [facility] [id number] [address] [place] [id number] Apr, [facility] [address] [facility] [id number] [address] [place] [id number] Mar, Anxiety state, unspecified 3 00.00 ; Depression 311 ; Prediabetes 790.29 ; Generalized osteoarthrosis, involving multiple sites 715.09 and Hypertension 401.9 [facility] [address] [facility] [id number] [address] [place] [id number] 04 Mar, 2015 [facility] [address] [facility] [id number] [address] [place] [phone] Feb, [facility] [address] [id number] [address] [place] [phone] Jan, [facility] [address] [id number] [address] [place] [phone] Jan, [facility] [address] [id number] [address] [place] [id number] Jan, Generalized osteoarthrosis, involving multiple sites 715.09 [facility] [address] [id number] [address] [place] [id number] Jan, Hx of renal cell cancer V10. 52 [facility] [address] [id number] [address] [place] [phone] Dec, Generalized osteoarthrosis, involving multiple sites 715.09 and Hx of renal cell cancer V10.52 [facility] [address] [id number] [address] [place] [id number] Dec, [facility] [address] [id number] [address] [place] [id number] Dec, [facility] [address] [id number] [address] [place] [phone] November, [facility] [address] [id number] [address] [place] [id number] Oct, [facility] [address] [id number] [address] [place] [phone] Oct, [facility] [address] [id number] [address] [place] [phone] Sep, [facility] [address] [id number] [address] [place] [phone] Sep, [facility] [address] [id number] [address] [place] [phone] Sep, [facility] [address] [id number] [address] [place] [phone] Sep, [facility] [address] [facility] [id number] [address] [place] [phone] Aug, [facility] [address] [facility] [id number] [address] [place] [phone] Aug, IMMUNIZATIONS No Known Immunizations SOCIAL HISTORY Never Assessed REASON FOR VISIT Prior Authorization Request PLAN OF CARE VITAL SIGNS MEDICATIONS Unknown [...]
--- OUTSIDE RECORDS SUMMARY | 2020-02-08 07:18 | XMS REPORT ---
Author Author Emilee NO Organization [facility] Address [address] [place] [address] Care Team Providers Care Retirement Officer Name Role Phone [email or web address] Unavailable PROBLEMS Type Condition ICD9-CM Code LLD94-KH Code Onset Dates Condition S tatus SNOMED Code Problem Mixed hyperlipidemia E78.2 Active 131582168 Problem Fatty liver K76.0 Active 66494251 7 Problem Obstructive sleep apnea G47.33 Active 05143256 Problem Allergic rhinitis, unspecified J30.9 Active 23397946 Problem Essential hypertension I10 Active 10475683 Problem History of renal cell cancer Z85.528 A ctive 434558246 Problem Prediabetes R73.09 Active 0807887 Problem Diastolic dysfunction I51.9 Active 4441064 Problem Body mass index (bmi) 50-59.9 , adult Z68.43 Active 281855651 Problem Paresthesia of both hands R20.2 Acti ve 625782724 Problem Habitual self-excoriation F42.4 Acti ve 401723195 Problem BMI 50.0-59.9, adult Z68.43 Active 924586698 Problem Restrictive lung disease J98.4 Activ e 51990999 Problem Splenic artery aneurysm I72.8 Active 72365492 Problem Liver mass R16.0 Active 804442640 Problem Generalized anxiety disorder F41.1 A ctive 98404881 Problem Major depressive disorder, recurrent episode, mild degree F33.0 Active 932304836 Problem Excoriation, neurotic L98.1 Active 25256251 Problem History of tobacco use Z87.891 Active 1611110436637 Problem Primary osteoarthritis involving multiple joints M 15.0 Active 945507259 Problem Isolated proteinuria without specific morphologic lesion R80.0 Active 38812128 Problem 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 Active 359509552 Problem Pulmonary emphysema, unspecified emphysema type J4 3.9 Active 52707264 Problem Chronic prescription opiate use Z79.899 Active 745416229 Problem Tobacco use Z72.0 Active 64492845 0 Problem Bilateral carpal tunnel syndrome G56.03 Active 63554972 Problem Chronic prescription benzodiazepine use Z79.899 Active 925159604 ALLERGIES No Known Allergies ENCOUNTERS Encounter Location Date Diagnosis [facility] [address] [id number] [address] [place] [address] May, [facility] [address] [id number] [address] [place] [address] Mar, [facility] [address] [id number] [address] [place] [address] Feb, [facility] [address] [facility] [id number] [address] [place] [address] Feb, [facility] [address] [facility] [id number] [address] [place] [address] Feb, [facility] [address] [facility] [id number] [address] [place] [address] Feb, Generalized anxiety disorder F41.1 ; Major depressive disorder, recurrent episode, mild degree F33.0 and Habitual self-excoriation F42.4 [facility] [address] [facility] [id number] [address] [place] [address] Feb, [facility] [address] [facility] [id number] [address] [place] [address] Jan, [facility] [address] [id number] [address] [place] [address] Jan, Pulmonary emphysema, unspeci fied emphysema type J43.9 [facility] [address] [id number] [address] [place] [id number] Jan, Dental examination Z01.20 an d Dental caries K02.9 [facility] [address] [id number] [address] [place] [address] Jan, Generalized anxiety disorder F41.1 and Major depressive disorder, recurrent episode, mild degree F33.0 [facility] [id number] [place] [address] Jan, [facility] [address] [place] [id number] [address] [place] [address] Jan, Generalized anxiety disorder F41.1 [facility] [address] [place] [id number] [address] [place] [address] Jan, Oral abscess K12.2 and BMI 5 0.0-59.9, adult Z68.43 [facility] [address] [address] Dec, BMI 50.0-59.9, adult Z68.43 and Weight loss counseling, encounter for Z71.3 [place] [address] [address] Dec, [place] [address] [address] Dec, [facility] [address] [place] [id number] [address] [place] [address] November, [place] [address] [address] November, [place] [address] [address] November, Pulmonary emphysema, unspeci fied emphysema type J43.9 ; Restrictive lung disease J98.4 ; BMI 50.0-59.9, adult Z68.43 ; History of renal cell cancer Z85.528 ; Essential hypertension I10 ; Mixed hyperlipidemia E78.2 and Fatty liver K76.0 [place] [address] [place] [id number] [address] [place] [address] November, Generalized anxiety disorder F41.1 [place] [address] [address] November, Generalized anxiety disorder F41.1 and Major depressive disorder, recurrent episode, mild degree F33.0 [place] [address] [place] [id number] [place] [address] November, Generalized anxiety disorder F41.1 ; Major depressive disorder, recurrent episode, mild degree F33.0 and Habitual self-excoriation F42.4 [facility] [address] [place] [id number] [address] [place] [address] November, [facility] [address] [address] Oct, Generalized anxiety disorder F41.1 [facility] [address] [place] [id number] [address] [place] [address] Oct, [facility] [address] [address] Oct, Influenza-like illness R69 [facility] [address] [place] [id number] [address] [place] [address] Sep, Influenza-like illness R69 [facility] [address] [place] [id number] [address] [place] [address] Sep, Generalized anxiety disorder F41.1 [facility] [address] [address] Sep, [facility] [address] [place] [id number] [address] [place] [address] Aug, [facility] [address] [place] [id number] [address] [place] [address] Aug, [facility] [address] [place] [id number] [address] [place] [address] Aug, Generalized anxiety disorder F41.1 [facility] [address] [place] [id number] [address] [place] [address] Aug, Influenza-like illness R69 a nd BMI 50.0-59.9, adult Z68.43 [facility] [address] [place] [address] 23 Sudhakar, 2018 Fatty liver K76.0 ; Restrict jean-paul lung disease J98.4 ; Diastolic dysfunction I51.9 ; Body mass index (bmi) 50-59.9 , adult Z68.43 and Chronic prescription opiate use Z79.899 [facility] [address] [place] [id number] [address] [place] [address] Jul, Generalized anxiety disorder F41.1 [facility] [address] [place] [id number] [address] [place] [address] Jul, Generalized anxiety disorder F41.1 [facility] [address] [place] [id number] [address] [place] [address] Jul, Primary osteoarthritis invol ving multiple joints M15.0 [facility] [address] [facility] [id number] [address] [place] [address] Jun, Generalized anxiety disorder F41.1 [place] [address] [place] [id number] [address] [place] [address] Jun, [facility] [address] [place] [address] Jun, Mixed hyperlipidemia E78.2 [facility] [address] [place] [id number] [place] [address] Jun, Generalized anxiety disorder F41.1 [facility] [address] [place] [id number] [place] [address] Jun, Generalized anxiety disorder F41.1 ; Major depressive disorder, recurrent episode, mild degree F33.0 and Habitual self-excoriation F42.4 [facility] [address] [place] [id number] [address] [place] [address] May, [facility] [address] [place] [id number] [place] [address] May, Generalized anxiety disorder F41.1 [facility] [address] [place] [id number] [address] [place] [address] May, Generalized anxiety disorder F41.1 [facility] [address] [place] [id number] [address] [place] [address] May, Primary osteoarthritis invol ving multiple joints M15.0 [facility] [address] [id number] [address] [place] [address] 09 Apr, 2017 Major depressive disorder, r ecurrent episode, mild degree F33.0 ; Generalized anxiety disorder F41.1 and Excoriation, neurotic L98.1 [facility] [address] [id number] [address] [place] [address] Apr, Primary osteoarthritis invol ving multiple joints M15.0 [facility] [address] [id number] [address] [place] [address] Apr, Essential hypertension I10 a nd Mixed hyperlipidemia E78.2 [facility] [address] [id number] [address] [place] [address] Apr, Generalized anxiety disorder F41.1 ; Major depressive disorder, recurrent episode, mild degree F33.0 and Habitual self-excoriation F42.4 [facility] [address] [id number] [address] [place] [address] Mar, Generalized anxiety disorder F41.1 ; Major depressive disorder, recurrent episode, mild degree F33.0 and Habitual self-excoriation F42.4 [facility] [address] [id number] [address] [place] [address] Mar, Skin lesion L98.9 [facility] [address] [id number] [address] [place] [address] Mar, Primary osteoarthritis invol ving multiple joints M15.0 [facility] [address] [id number] [address] [place] [address] Mar, [facility] [address] [id number] [address] [place] [address] Mar, [facility] [address] [id number] [address] [place] [address] Feb, Major depressive disorder, r ecurrent episode, mild degree F33.0 ; Generalized anxiety disorder F41.1 and Excoriation, neurotic L98.1 [facility] [address] [facility] [id number] [address] [place] [address] Feb, Generalized anxiety disorder F41.1 [facility] [address] [id number] [address] [place] [address] Feb, Primary osteoarthritis invol ving multiple joints M15.0 [facility] [address] [id number] [address] [place] [address] Jan, [facility] [address] [facility] [id number] [address] [place] [address] Jan, Essential hypertension I10 ; Splenic artery aneurysm I72.8 ; Liver mass R16.0 ; Restrictive lung disease J98.4 ; Primary osteoarthritis involving multiple joints M15.0 ; Mixed hyperlipidemia E78.2 ; Bilateral carpal tunnel syndrome G56.03 ; Body mass index (bmi) 50-59.9 , adult Z68.43 and History of tobacco use Z87.891 [place] [address] [facility] [id number] [address] [place] [address] Jan, Major depressive disorder, r ecurrent episode, mild degree F33.0 and Generalized anxiety disorder F41.1 [place] [id number] [facility] [id number] [address] [place] [address] Jan, [facility] [address] [facility] [id number] [address] [place] [address] Jan, Generalized anxiety disorder F41.1 and Major depressive disorder, recurrent episode, mild degree F33.0 [facility] [address] [id number] [address] [place] [address] Dec, Primary osteoarthritis invol ving multiple joints M15.0 [facility] [address] [id number] [address] [place] [address] Dec, Generalized anxiety disorder F41.1 [facility] [address] [facility] [id number] [address] [place] [address] Dec, [place] [address] [facility] [id number] [address] [place] [address] Dec, Major depressive disorder, r ecurrent episode, mild degree F33.0 and Generalized anxiety disorder F41.1 [place] [address] [facility] [id number] [address] [place] [address] Dec, Generalized anxiety disorder F41.1 and Major depressive disorder, recurrent episode, mild degree F33.0 [place] [address] [facility] [id number] [address] [place] [address] November, Mild major depression F32.0 and Primary osteoarthritis involving multiple joints M15.0 [place] [address] [place] [id number] [address] [place] [address] November, Major depressive disorder, r ecurrent episode, mild degree F33.0 and Generalized anxiety disorder F41.1 [place] [address] [place] [id number] [address] [place] [address] November, Primary osteoarthritis invol ving multiple joints M15.0 ; Essential hypertension I10 ; Prediabetes R73.09 ; Mixed hyperlipidemia E78.2 ; Chronic prescription benzodiazepine use Z79.899 ; Chronic prescription opiate use Z79.899 ; Tobacco use Z72.0 ; Bilateral carpal tunnel syndrome G56.03 and Body mass index (bmi) 50-59.9 , adult Z68.43 [place] [id number] [address] [place] [address] November, Primary osteoarthritis invol ving multiple joints M15.0 and Mild major depression F32.0 [place] [address] [facility] [id number] [address] [place] [address] Oct, [place] [id number] [address] [place] [address] Oct, Primary osteoarthritis invol ving multiple joints M15.0 ; Essential hypertension I10 ; Prediabetes R73.09 ; Chronic prescription benzodiazepine use Z79.899 ; Chronic prescription opiate use Z79.899 ; Tobacco use Z72.0 ; Mixed hyperlipidemia E78.2 ; Bilateral carpal tunnel syndrome G56.03 ; Body mass index (bmi) 50-59.9 , adult Z68.43 and Encounter for immunization Z23 [facility] [address] [address] Oct, Major depressive disorder, r ecurrent episode, mild degree F33.0 and Generalized anxiety disorder F41.1 [place] [address] [address] Oct, [place] [address] [address] Oct, [place] [address] [address] Sep, Mild major depression F32.0 [place] [address] [address] Sep, [place] [address] [address] Sep, Mild major depression F32.0 and Generalized anxiety disorder F41.1 [place] [address] [address] Sep, Paresthesia of both hands R2 0.2 and Cervical radiculopathy M54.12 [place] [address] [place] [id number] [address] [place] [address] Sep, [facility] [address] [place] [id number] [place] [address] Sep, [place] [address] [address] Aug, Paresthesia of both hands R2 0.2 and Neck pain M54.2 [place] [address] [place] [id number] [place] [address] Aug, [facility] [address] [address] Jul, Neck pain M54.2 and Paresthe eddie of both hands R20.2 [place] [address] [facility] [id number] [address] [place] [address] Jul, Proteinuria, unspecified typ e R80.9 [place] [address] [facility] [id number] [address] [place] [address] Jul, Proteinuria, unspecified typ e R80.9 [place] [address] [facility] [id number] [address] [place] [address] Jul, [place] [address] [facility] [id number] [address] [place] [address] Jul, Other specified transient ce rebral ischemias G45.8 [place] [address] [place] [id number] [address] [place] [address] Jun, Diastolic dysfunction I51.9 [place] [address] [place] [id number] [address] [place] [address] Jun, Diastolic dysfunction I51.9 [place] [address] [facility] [id number] [address] [place] [address] Jun, Major depressive disorder, s david episode, unspecified F32.9 and Anxiety disorder, unspecified F41.9 [place] [address] [place] [id number] [address] [place] [address] Jun, [place] [address] [facility] [id number] [address] [place] [address] Jun, [place] [address] [facility] [id number] [address] [place] [address] May, Moderate major depression F3 2.1 and Generalized anxiety disorder F41.1 [place] [address] [facility] [id number] [address] [place] [address] May, Major depressive disorder, s david episode, unspecified F32.9 and Anxiety disorder, unspecified F41.9 [place] [address] [address] 15 May, 2016 [facility] [address] [address] 14 May, 2016 Liver enzyme elevation R74.8 [facility] [address] [address] 14 May, 2016 Liver enzyme elevation R74.8 [facility] [address] [address] 10 May, 2016 Shortness of breath on exert ion R06.02 ; Essential hypertension I10 ; Mixed hyperlipidemia E78.2 and Tobacco use Z72.0 [facility] [address] [address] 03 May, 2016 [facility] [address] [address] May, [facility] [address] [address] Apr, Anxiety F41.9 and Depression F32.9 [facility] [address] [address] Apr, [facility] [address] [address] Apr, [facility] [address] [address] Mar, Depression F32.9 and Anxiety F41.9 [facility] [address] [address] 08 Mar, 2016 Anxiety F41.9 and Depression F32.9 [facility] [address] [address] 06 Mar, 2016 Well woman exam (no gynecolo gical exam) Z00.00 [facility] [address] [address] Mar, [facility] [address] [id number] [address] [place] [address] Mar, [facility] [address] [id number] [address] [place] [id number] Feb, Dental caries K02.9 [facility] [address] [id number] [address] [place] [address] Feb, [facility] [address] [id number] [address] [place] [address] Feb, Anxiety F41.9 and Depression F32.9 [facility] [address] [id number] [address] [place] [id number] Feb, Dental examination Z01.20 [facility] [address] [id number] [address] [place] [address] Feb, [facility] [address] [id number] [address] [place] [address] Feb, [facility] [address] [id number] [address] [place] [address] Feb, Anxiety F41.9 and Depression F32.9 [facility] [address] [id number] [address] [place] [address] Jan, Severe episode of recurrent major depressive disorder, without psychotic features F33.2 and Anxiety disorder, unspecified F41.9 [facility] [address] [id number] [address] [place] [address] Jan, [facility] [address] [id number] [address] [place] [address] Dec, [facility] [address] [id number] [address] [place] [address] Dec, Anxiety F41.9 and Depression F32.9 [facility] [address] [id number] [address] [place] [address] Dec, Other specified transient ce rebral ischemias G45.8 and Nocturnal hypoxia G47.34 [facility] [address] [id number] [address] [place] [address] 18 Dec, 2015 [facility] [address] [id number] [address] [place] [address] 17 Dec, 2015 Other specified transient ce rebral ischemias G45.8 [facility] [address] [id number] [address] [place] [address] 16 Dec, 2015 Severe episode of recurrent major depressive disorder, without psychotic features F33.2 and Anxiety disorder, unspecified F41.9 [facility] [address] [id number] [address] [place] [address] 13 Dec, 2015 [facility] [address] [id number] [address] [place] [address] 13 Dec, 2015 Anxiety F41.9 and Depression F32.9 [place] [address] [facility] [id number] [address] [place] [address] 07 Dec, 2015 Anxiety F41.9 and Depression F32.9 [place] [id number] [facility] [id number] [address] [place] [address] Dec, [facility] [address] [id number] [address] [place] [address] November, Anxiety F41.9 and Depression F32.9 [facility] [address] [id number] [address] [place] [address] November, Severe episode of recurrent major depressive disorder, without psychotic features F33.2 [facility] [address] [id number] [address] [place] [address] November, Mixed hyperlipidemia E78.2 [facility] [address] [facility] [id number] [address] [place] [address] November, Anxiety F41.9 and Depression F32.9 [facility] [address] [facility] [id number] [address] [place] [id number] 05 Nov, 2015 Prediabetes R73.09 ; Essenti al hypertension I10 ; Anxiety F41.9 ; Depression F32.9 ; Gastroesophageal reflux disease, esophagitis presence not specified K21.9 ; Primary osteoarthritis involving multiple joints M15.0 ; History of renal cell cancer Z85.528 ; Postnasal drip R09.82 ; Allergic rhinitis, unspecified J30.9 and Tobacco use Z72.0 [place] [address] [id number] 11 Oct, 2015 Anxiety F41.9 and Depression F32.9 [place] [address] [id number] 07 Oct, 2015 [place] [address] [address] Oct, [place] [address] [address] 14 Sep, 2015 Splenic artery aneurysm I72. 8 [place] [address] [address] 10 Sep, 2015 Depression F32.9 ; Anxiety F 41.9 ; Chronic prescription benzodiazepine use Z79.899 and Splenic artery aneurysm I72.8 [place] [address] [address] Sep, Depression F32.9 and Anxiety F41.9 [place] [address] [address] Sep, [place] [address] [address] 18 Aug, 2015 Dehydration E86.0 ; Diarrhea R19.7 ; Nausea R11.0 and Generalized abdominal pain R10.84 [place] [address] [id number] 03 Aug, 2015 [place] [address] [address] Jul, Depression F32.9 [place] [address] [place] [address] Jul, [facility] [address] [id number] [address] [place] [id number] Jul, Anxiety F41.9 and Depression F32.9 [facility] [address] [id number] [address] [place] [id number] Jul, [facility] [address] [facility] [id number] [address] [place] [id number] Jun, Epigastric pain R10.13 [facility] [address] [id number] [address] [place] [phone] Jun, [facility] [address] [facility] [id number] [address] [place] [id number] Jun, [facility] [address] [facility] [id number] [address] [place] [id number] May, [facility] [address] [facility] [id number] [address] [place] [id number] May, [facility] [address] [facility] [id number] [address] [place] [id number] Apr, [facility] [address] [facility] [id number] [address] [place] [id number] Mar, Anxiety state, unspecified 3 00.00 ; Depression 311 ; Prediabetes 790.29 ; Generalized osteoarthrosis, involving multiple sites 715.09 and Hypertension 401.9 [facility] [address] [facility] [id number] [address] [place] [phone] Mar, [facility] [address] [facility] [id number] [address] [place] [id number] Feb, [facility] [address] [facility] [id number] [address] [place] [phone] Jan, [facility] [address] [facility] [id number] [address] [place] [phone] Jan, [facility] [address] [id number] [address] [place] [id number] 08 Jan, 2015 Generalized osteoarthrosis, involving multiple sites 715.09 [facility] [address] [id number] [address] [place] [id number] 07 Jan, 2015 Hx of renal cell cancer V10. 52 [facility] [address] [id number] [address] [place] [id number] 30 Dec, 2014 Generalized osteoarthrosis, involving multiple sites 715.09 and Hx of renal cell cancer V10.52 [facility] [address] [id number] [address] [place] [id number] 24 Dec, 2014 [facility] [address] [id number] [address] [place] [phone] Dec, [facility] [address] [id number] [address] [place] [phone] November, [facility] [address] [id number] [address] [place] [phone] Oct, [facility] [address] [id number] [address] [place] [phone] Oct, [facility] [address] [id number] [address] [place] [phone] Sep, [facility] [address] [id number] [address] [place] [phone] Sep, [facility] [address] [id number] [address] [place] [phone] Sep, [facility] [address] [id number] [address] [place] [phone] Sep, [facility] [address] [id number] [address] [place] [phone] Aug, [facility] [address] [id number] [address] [place] [phone] Aug, IMMUNIZATIONS No Known Immunizations SOCIAL HISTORY Never Assessed REASON FOR VISIT BH f/u [facility] PLAN OF CARE Activity Details Follow Up 3 Months Reason: f/u VITAL SIGNS Height 62 in 2017-12-04 Weight 291 lbs 2017-12-04 Heart Rate 110 bpm 2017-12-04 Respiratory Rate 22 2017-12-04 BMI 53.22 kg/m2 2017-12-04 Blood pressure systolic 112 mmHg 2017-12-04 Blood pressure diastolic 64 mmHg 2017-12-04 MEDICATIONS Medication Instructions Dosage Frequency Start Date End Date Duration S tatus Omeprazole 40 MG TAKE ONE CAPSULE BY MOUTH ONCE DAILY 30 Active Tizanidine HCl 2 MG TAKE ONE TABLET BY MOUTH EVERY 8 HOURS NE EDED 30 Active Hydrocodone-Acetaminophen 5-325 MG Orally 2 times a day as n eeded for pain take 1 tablet Oct, 28 Active Atorvastatin Calcium 40 MG TAKE ONE TABLET BY MOUTH ONCE DAILY 30 Active Potassium Chloride ER 20 MEQ TAKE ONE TABLET BY MOUTH ONCE DAILY WITH FOOD 30 Active Wellbutrin XL 300 MG Orally Once a day 1 tablet in the morning 24h Active Cymbalta 30 MG Orally Once a day 3 capsules 24h Active ProAir HFA 108 (90 Base) MCG/ACT Inhalation every 4 hrs 2 puffs as ne eded 4h 17 Active Remeron 15 mg Orally Once a day at bedtime 1 tablet at bedtime Active Hydrocodone-Acetaminophen 5-325 MG Orally 2 times a day as n eeded for pain take 1 tablet Jul, 28 days Not-Taking Atenolol 50 MG TAKE ONE TABLET BY MOUTH ONCE DAILY 90 Active Diazepam 5 mg Orally Once a day as needed for anxiety 0.5 tablet Active Spiriva HandiHaler 18 MCG Inhalation Once a day 2 puffs (1 capsule) 24h Oct, Active Furosemide 20 MG TAKE ONE TABLET BY MOUTH ONCE DAILY 30 Active Wellbutrin XL 150 MG Orally Once a day (along wit h 300 mg tablet to equal 450 mg daily 1 tablet in the morning A ctive Vitamin E Complete Activ e Omeprazole 20 mg Orally Once a day 2 capsules 24h Jun, 30 day(s) Active RESULTS No Results PROCEDURES No Known [...]
--- OUTSIDE RECORDS SUMMARY | 2020-02-08 07:19 | XMS REPORT ---
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 Name Role Phone LALOJEZALBANIA Unavailable PROBLEMS Type Condition ICD9-CM Code TJK06-ED Code Onset Dates Condition S tatus SNOMED Code Problem Mixed hyperlipidemia E78.2 Active 995056627 Problem Fatty liver K76.0 Active 94691690 7 Problem Obstructive sleep apnea G47.33 Active 28460768 Problem Allergic rhinitis, unspecified J30.9 Active 03836698 Problem Essential hypertension I10 Active 23419025 Problem History of renal cell cancer Z85.528 A ctive 003344959 Problem Prediabetes R73.09 Active 7434014 Problem Diastolic dysfunction I51.9 Active 5379355 Problem Body mass index (bmi) 50-59.9 , adult Z68.43 Active 118611993 Problem Paresthesia of both hands R20.2 Acti ve 804922171 Problem 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 Acti ve 409685603 Problem BMI 50.0-59.9, adult Z68.43 Active 769415718 Problem Restrictive lung disease J98.4 Activ e 56378201 Problem Splenic artery aneurysm I72.8 Active 63388272 Problem Liver mass R16.0 Active 692501749 Problem Generalized anxiety disorder F41.1 A ctive 43784318 Problem Major depressive disorder, recurrent episode, mild degree F33.0 Active 519128979 Problem Excoriation, neurotic L98.1 Active 00319124 Problem History of tobacco use Z87.891 Active 5802291419311 Problem Primary osteoarthritis involving multiple joints M 15.0 Active 071912002 Problem Isolated proteinuria without specific morphologic lesion R80.0 Active 48365030 Problem 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 Active 195247338 Problem Pulmonary emphysema, unspecified emphysema type J4 3.9 Active 29918297 Problem Chronic prescription opiate use Z79.899 Active 093947800 Problem Tobacco use Z72.0 Active 60229271 0 Problem Bilateral carpal tunnel syndrome G56.03 Active 98580987 Problem Chronic prescription benzodiazepine use Z79.899 Active 142700104 ALLERGIES No Information ENCOUNTERS Encounter Location Date Diagnosis [facility] [address] [id number] [address] [place] [address] May, [facility] [address] [id number] [address] [place] [address] Feb, [facility] [address] [id number] [address] [place] [address] Feb, [facility] [address] [id number] [address] [place] [address] Feb, Generalized anxiety disorder F41.1 ; Major depressive disorder, recurrent episode, mild degree F33.0 and Habitual self-excoriation F42.4 [facility] [address] [id number] [address] [place] [address] Feb, [facility] [address] [id number] [address] [place] [address] Jan, [facility] [address] [id number] [address] [place] [address] Jan, Pulmonary emphysema, unspeci fied emphysema type J43.9 [facility] [address] [id number] [address] [place] [address] [id number] Jan, Dental examination Z01.20 an d Dental caries K02.9 [facility] [address] [id number] [address] [place] [address] Jan, Generalized anxiety disorder F41.1 and Major depressive disorder, recurrent episode, mild degree F33.0 [facility] [address] [id number] [address] [place] [address] Jan, [facility] [address] [id number] [address] [place] [address] Jan, Generalized anxiety disorder F41.1 [facility] [id number] [place] [address] Jan, Oral abscess K12.2 and BMI 5 0.0-59.9, adult Z68.43 [place] [address] [address] Dec, BMI 50.0-59.9, adult Z68.43 and Weight loss counseling, encounter for Z71.3 [place] [address] [address] Dec, [facility] [address] [address] Dec, [place] [address] [address] November, [place] [address] [address] November, [place] [address] [address] November, Pulmonary emphysema, unspeci fied emphysema type J43.9 ; Restrictive lung disease J98.4 ; BMI 50.0-59.9, adult Z68.43 ; History of renal cell cancer Z85.528 ; Essential hypertension I10 ; Mixed hyperlipidemia E78.2 and Fatty liver K76.0 [place] [address] [address] November, Generalized anxiety disorder F41.1 [place] [address] [address] November, Generalized anxiety disorder F41.1 and Major depressive disorder, recurrent episode, mild degree F33.0 [place] [address] [address] November, Generalized anxiety disorder F41.1 ; Major depressive disorder, recurrent episode, mild degree F33.0 and Habitual self-excoriation F42.4 [place] [address] [place] [address] November, [facility] [address] [place] [id number] [address] [place] [address] Oct, Generalized anxiety disorder F41.1 [facility] [address] [place] [id number] [address] [place] [address] Oct, [facility] [address] [address] Oct, Influenza-like illness R69 [facility] [address] [place] [id number] [address] [place] [address] Sep, Influenza-like illness R69 [facility] [address] [address] Sep, Generalized anxiety disorder F41.1 [facility] [address] [place] [id number] [address] [place] [address] Sep, [facility] [address] [place] [id number] [address] [place] [address] Aug, [facility] [address] [place] [id number] [address] [place] [address] Aug, [facility] [address] [place] [id number] [address] [place] [address] Aug, Generalized anxiety disorder F41.1 [facility] [address] [place] [id number] [address] [place] [address] Aug, Influenza-like illness R69 a nd BMI 50.0-59.9, adult Z68.43 [facility] [address] [place] [id number] [address] [place] [address] Jul, 2018 Fatty liver K76.0 ; Restrict jean-paul lung disease J98.4 ; Diastolic dysfunction I51.9 ; Body mass index (bmi) 50-59.9 , adult Z68.43 and Chronic prescription opiate use Z79.899 [facility] [address] [place] [id number] [address] [place] [address] Jul, Generalized anxiety disorder F41.1 [facility] [address] [id number] [address] [place] [address] Jul, Generalized anxiety disorder F41.1 [facility] [address] [id number] [address] [place] [address] Jul, Primary osteoarthritis invol ving multiple joints M15.0 [facility] [address] [id number] [address] [place] [address] Jun, Generalized anxiety disorder F41.1 [facility] [address] [id number] [address] [place] [address] Jun, [facility] [address] [facility] [id number] [address] [place] [address] Jun, Mixed hyperlipidemia E78.2 [facility] [address] [facility] [id number] [address] [place] [address] Jun, Generalized anxiety disorder F41.1 [facility] [address] [id number] [address] [place] [address] Jun, Generalized anxiety disorder F41.1 ; Major depressive disorder, recurrent episode, mild degree F33.0 and Habitual self-excoriation F42.4 [facility] [address] [id number] [address] [place] [address] May, [facility] [address] [id number] [address] [place] [address] May, Generalized anxiety disorder F41.1 [facility] [address] [facility] [id number] [address] [place] [address] May, Generalized anxiety disorder F41.1 [facility] [address] [facility] [id number] [address] [place] [address] May, Primary osteoarthritis invol ving multiple joints M15.0 [facility] [address] [facility] [id number] [address] [place] [address] Apr, Major depressive disorder, r ecurrent episode, mild degree F33.0 ; Generalized anxiety disorder F41.1 and Excoriation, neurotic L98.1 [facility] [address] [id number] [address] [place] [address] Apr, Primary osteoarthritis invol ving multiple joints M15.0 [facility] [address] [id number] [address] [place] [address] Apr, Essential hypertension I10 a nd Mixed hyperlipidemia E78.2 [facility] [address] [id number] [address] [place] [address] Apr, Generalized anxiety disorder F41.1 ; Major depressive disorder, recurrent episode, mild degree F33.0 and Habitual self-excoriation F42.4 [facility] [address] [id number] [address] [place] [address] 06 Mar, 2017 Generalized anxiety disorder F41.1 ; Major depressive disorder, recurrent episode, mild degree F33.0 and Habitual self-excoriation F42.4 [facility] [address] [id number] [address] [place] [address] Mar, Skin lesion L98.9 [facility] [address] [id number] [address] [place] [address] Mar, Primary osteoarthritis invol ving multiple joints M15.0 [facility] [address] [id number] [address] [place] [address] Mar, [facility] [address] [id number] [address] [place] [address] Mar, [facility] [address] [id number] [address] [place] [address] Feb, Major depressive disorder, r ecurrent episode, mild degree F33.0 ; Generalized anxiety disorder F41.1 and Excoriation, neurotic L98.1 [facility] [address] [id number] [address] [place] [address] Feb, Generalized anxiety disorder F41.1 [facility] [address] [id number] [address] [place] [address] Feb, Primary osteoarthritis invol ving multiple joints M15.0 [facility] [address] [id number] [address] [place] [address] Jan, [facility] [address] [facility] [id number] [address] [place] [address] Jan, Essential hypertension I10 ; Splenic artery aneurysm I72.8 ; Liver mass R16.0 ; Restrictive lung disease J98.4 ; Primary osteoarthritis involving multiple joints M15.0 ; Mixed hyperlipidemia E78.2 ; Bilateral carpal tunnel syndrome G56.03 ; Body mass index (bmi) 50-59.9 , adult Z68.43 and History of tobacco use Z87.891 [facility] [address] [facility] [id number] [address] [place] [address] Jan, Major depressive disorder, r ecurrent episode, mild degree F33.0 and Generalized anxiety disorder F41.1 [facility] [address] [id number] [address] [place] [address] Jan, [facility] [address] [id number] [address] [place] [address] Jan, Generalized anxiety disorder F41.1 and Major depressive disorder, recurrent episode, mild degree F33.0 [facility] [address] [id number] [address] [place] [address] Dec, Primary osteoarthritis invol ving multiple joints M15.0 [facility] [address] [id number] [address] [place] [address] Dec, Generalized anxiety disorder F41.1 [facility] [address] [id number] [address] [place] [address] Dec, [facility] [address] [id number] [address] [place] [address] Dec, Major depressive disorder, r ecurrent episode, mild degree F33.0 and Generalized anxiety disorder F41.1 [place] [address] [place] [id number] [address] [place] [address] Dec, Generalized anxiety disorder F41.1 and Major depressive disorder, recurrent episode, mild degree F33.0 [place] [address] [place] [id number] [address] [place] [address] November, Mild major depression F32.0 and Primary osteoarthritis involving multiple joints M15.0 [place] [address] [address] November, Major depressive disorder, r ecurrent episode, mild degree F33.0 and Generalized anxiety disorder F41.1 [place] [address] [address] November, Primary osteoarthritis invol ving multiple joints M15.0 ; Essential hypertension I10 ; Prediabetes R73.09 ; Mixed hyperlipidemia E78.2 ; Chronic prescription benzodiazepine use Z79.899 ; Chronic prescription opiate use Z79.899 ; Tobacco use Z72.0 ; Bilateral carpal tunnel syndrome G56.03 and Body mass index (bmi) 50-59.9 , adult Z68.43 [place] [address] [address] November, Primary osteoarthritis invol ving multiple joints M15.0 and Mild major depression F32.0 [place] [address] [place] [id number] [address] [place] [address] Oct, [place] [address] [address] Oct, Primary osteoarthritis invol ving multiple joints M15.0 ; Essential hypertension I10 ; Prediabetes R73.09 ; Chronic prescription benzodiazepine use Z79.899 ; Chronic prescription opiate use Z79.899 ; Tobacco use Z72.0 ; Mixed hyperlipidemia E78.2 ; Bilateral carpal tunnel syndrome G56.03 ; Body mass index (bmi) 50-59.9 , adult Z68.43 and Encounter for immunization Z23 [place] [address] [address] Oct, Major depressive disorder, r ecurrent episode, mild degree F33.0 and Generalized anxiety disorder F41.1 [facility] [address] [id number] [address] [place] [address] Oct, [facility] [address] [id number] [address] [place] [address] Oct, [facility] [address] [facility] [id number] [address] [place] [address] Sep, Mild major depression F32.0 [facility] [address] [id number] [address] [place] [address] Sep, [facility] [address] [facility] [id number] [address] [place] [address] Sep, Mild major depression F32.0 and Generalized anxiety disorder F41.1 [facility] [address] [facility] [id number] [address] [place] [address] Sep, Paresthesia of both hands R2 0.2 and Cervical radiculopathy M54.12 [facility] [address] [id number] [address] [place] [address] Sep, [facility] [address] [facility] [id number] [address] [place] [address] Sep, [facility] [address] [facility] [id number] [address] [place] [address] Aug, Paresthesia of both hands R2 0.2 and Neck pain M54.2 [facility] [address] [id number] [address] [place] [address] Aug, [facility] [address] [facility] [id number] [address] [place] [address] Jul, Neck pain M54.2 and Paresthe eddie of both hands R20.2 [facility] [address] [facility] [id number] [address] [place] [address] Jul, Proteinuria, unspecified typ e R80.9 [facility] [address] [facility] [id number] [address] [place] [address] Jul, Proteinuria, unspecified typ e R80.9 [facility] [address] [id number] [address] [place] [address] Jul, [facility] [address] [facility] [id number] [address] [place] [address] Jul, Other specified transient ce rebral ischemias G45.8 [facility] [address] [id number] [address] [place] [address] Jun, Diastolic dysfunction I51.9 [facility] [address] [facility] [id number] [address] [place] [address] Jun, Diastolic dysfunction I51.9 [place] [address] [facility] [id number] [address] [place] [address] Jun, Major depressive disorder, s david episode, unspecified F32.9 and Anxiety disorder, unspecified F41.9 [facility] [address] [facility] [id number] [address] [place] [address] Jun, [facility] [address] [facility] [id number] [address] [place] [address] Jun, [facility] [address] [facility] [id number] [address] [place] [address] May, Moderate major depression F3 2.1 and Generalized anxiety disorder F41.1 [facility] [address] [id number] [address] [place] [address] 16 May, 2016 Major depressive disorder, s david episode, unspecified F32.9 and Anxiety disorder, unspecified F41.9 [facility] [address] [facility] [id number] [address] [place] [address] May, [facility] [address] [facility] [id number] [address] [place] [address] May, Liver enzyme elevation R74.8 [place] [address] [address] 14 May, 2016 Liver enzyme elevation R74.8 [facility] [address] [address] 10 May, 2016 Shortness of breath on exert ion R06.02 ; Essential hypertension I10 ; Mixed hyperlipidemia E78.2 and Tobacco use Z72.0 [facility] [address] [address] 03 May, 2016 [facility] [address] [address] May, [facility] [address] [address] Apr, Anxiety F41.9 and Depression F32.9 [place] [address] [address] Apr, [facility] [address] [address] Apr, [facility] [address] [address] Mar, Depression F32.9 and Anxiety F41.9 [facility] [address] [address] 08 Mar, 2016 Anxiety F41.9 and Depression F32.9 [facility] [address] [address] Mar, Well woman exam (no gynecolo gical exam) Z00.00 [facility] [address] [address] Mar, [facility] [address] [address] Mar, [facility] [address] [id number] [address] [place] [id number] 16 Aug, 2016 Dental caries K02.9 [facility] [address] [id number] [address] [place] [address] Feb, [facility] [address] [id number] [address] [place] [address] Feb, Anxiety F41.9 and Depression F32.9 [facility] [address] [id number] [address] [place] [id number] Feb, Dental examination Z01.20 [facility] [address] [id number] [address] [place] [address] Feb, [facility] [address] [id number] [address] [place] [address] Feb, [facility] [address] [id number] [address] [place] [address] Feb, Anxiety F41.9 and Depression F32.9 [facility] [address] [id number] [address] [place] [address] Jan, Severe episode of recurrent major depressive disorder, without psychotic features F33.2 and Anxiety disorder, unspecified F41.9 [facility] [address] [id number] [address] [place] [address] Jan, [facility] [address] [id number] [address] [place] [address] Dec, [facility] [address] [id number] [address] [place] [address] Dec, Anxiety F41.9 and Depression F32.9 [facility] [address] [id number] [address] [place] [address] Dec, Other specified transient ce rebral ischemias G45.8 and Nocturnal hypoxia G47.34 [facility] [address] [id number] [address] [place] [address] Dec, [facility] [address] [id number] [address] [place] [address] Dec, Other specified transient ce rebral ischemias G45.8 [place] [address] [facility] [id number] [address] [place] [address] 16 Dec, 2015 Severe episode of recurrent major depressive disorder, without psychotic features F33.2 and Anxiety disorder, unspecified F41.9 [place] [address] [facility] [id number] [address] [place] [address] 13 Dec, 2015 [place] [address] [facility] [id number] [address] [place] [id number] 13 Dec, 2015 Anxiety F41.9 and Depression F32.9 [place] [address] [address] [facility] [id number] [address] [place] [phone] Dec, Anxiety F41.9 and Depression F32.9 [place] [address] [address] [facility] [id number] [address] [place] [phone] Dec, [place] [address] [address] [facility] [id number] [address] [place] [id number] November, Anxiety F41.9 and Depression F32.9 [place] [address] [address] [facility] [id number] [address] [place] [phone] November, Severe episode of recurrent major depressive disorder, without psychotic features F33.2 [place] [address] [address] [facility] [id number] [address] [place] [id number] November, Mixed hyperlipidemia E78.2 [place] [address] [address] [facility] [id number] [address] [place] [phone] November, Anxiety F41.9 and Depression F32.9 [place] [address] [address] [facility] [id number] [address] [place] [id number] 05 Nov, 2015 Prediabetes R73.09 ; Essenti al hypertension I10 ; Anxiety F41.9 ; Depression F32.9 ; Gastroesophageal reflux disease, esophagitis presence not specified K21.9 ; Primary osteoarthritis involving multiple joints M15.0 ; History of renal cell cancer Z85.528 ; Postnasal drip R09.82 ; Allergic rhinitis, unspecified J30.9 and Tobacco use Z72.0 [facility] [address] [phone] 11 Oct, 2015 Anxiety F41.9 and Depression F32.9 [facility] [address] [id number] 07 Oct, 2015 [facility] [address] [phone] Oct, [facility] [address] [address] 14 Sep, 2015 Splenic artery aneurysm I72. 8 [facility] [address] [phone] 10 Sep, 2015 Depression F32.9 ; Anxiety F 41.9 ; Chronic prescription benzodiazepine use Z79.899 and Splenic artery aneurysm I72.8 [place] [address] [address] 10 Sep, 2015 Depression F32.9 and Anxiety F41.9 [facility] [address] [phone] Sep, [facility] [address] [id number] 18 Aug, 2015 Dehydration E86.0 ; Diarrhea R19.7 ; Nausea R11.0 and Generalized abdominal pain R10.84 [place] [address] [address] Aug, [facility] [address] [address] Jul, Depression F32.9 [place] [address] [address] Jul, [facility] [address] [address] Jul, Anxiety F41.9 and Depression F32.9 [place] [address] [id number] [address] [place] [address] Jul, [facility] [address] [facility] [id number] [address] [place] [address] Jun, Epigastric pain R10.13 [facility] [address] [id number] [address] [place] [address] Jun, [facility] [address] [facility] [id number] [address] [place] [address] Jun, [facility] [address] [facility] [id number] [address] [place] [address] May, [facility] [address] [facility] [id number] [address] [place] [address] May, [facility] [address] [facility] [id number] [address] [place] [address] Apr, [facility] [address] [facility] [id number] [address] [place] [address] Mar, Anxiety state, unspecified 3 00.00 ; Depression 311 ; Prediabetes 790.29 ; Generalized osteoarthrosis, involving multiple sites 715.09 and Hypertension 401.9 [facility] [address] [facility] [id number] [address] [place] [id number] Mar, [facility] [address] [facility] [id number] [address] [place] [address] Feb, [facility] [address] [facility] [id number] [address] [place] [id number] Jan, [facility] [address] [facility] [id number] [address] [place] [address] Jan, [facility] [address] [facility] [id number] [address] [place] [address] Jan, Generalized osteoarthrosis, involving multiple sites 715.09 [facility] [address] [facility] [id number] [address] [place] [address] Jan, Hx of renal cell cancer V10. 52 [facility] [address] [id number] [address] [place] [address] Dec, Generalized osteoarthrosis, involving multiple sites 715.09 and Hx of renal cell cancer V10.52 [facility] [address] [id number] [address] [place] [address] Dec, [facility] [address] [id number] [address] [place] [address] Dec, [facility] [address] [id number] [address] [place] [id number] November, [facility] [address] [id number] [address] [place] [id number] Oct, [facility] [address] [id number] [address] [place] [phone] Oct, [facility] [address] [id number] [address] [place] [id number] Sep, [facility] [address] [id number] [address] [place] [address] Sep, [facility] [address] [id number] [address] [place] [address] Sep, [facility] [address] [id number] [address] [place] [address] Sep, [facility] [address] [id number] [address] [place] [phone] Aug, [facility] [address] [id number] [address] [place] [id number] Aug, IMMUNIZATIONS No Known Immunizations SOCIAL HISTORY [...]
--- OUTSIDE RECORDS SUMMARY | 2020-02-08 07:19 | XMS REPORT ---
Author Author Emilee CASSIDY Organization [facility] Address [address] [place] [address] Care Team Providers Care Satellite Dish Installer Name Role Phone LOVELY CASSIDY Unavailable PROBLEMS Type Condition ICD9-CM Code AIB01-BL Code Onset Dates Condition S tatus SNOMED Code Problem Mixed hyperlipidemia E78.2 Active 756277505 Problem Fatty liver K76.0 Active 85112454 7 Problem Obstructive sleep apnea G47.33 Active 03715307 Problem Allergic rhinitis, unspecified J30.9 Active 37926792 Problem Essential hypertension I10 Active 04605461 Problem History of renal cell cancer Z85.528 A ctive 628104575 Problem Prediabetes R73.09 Active 2814578 Problem Diastolic dysfunction I51.9 Active 6442779 Problem Body mass index (bmi) 50-59.9 , adult Z68.43 Active 336779332 Problem Paresthesia of both hands R20.2 Acti ve 721953642 Problem 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 Acti ve 174270447 Problem BMI 50.0-59.9, adult Z68.43 Active 473838949 Problem Restrictive lung disease J98.4 Activ e 79457675 Problem Splenic artery aneurysm I72.8 Active 34202770 Problem Liver mass R16.0 Active 904233994 Problem Generalized anxiety disorder F41.1 A ctive 71676630 Problem Major depressive disorder, recurrent episode, mild degree F33.0 Active 902002362 Problem Excoriation, neurotic L98.1 Active 45876113 Problem History of tobacco use Z87.891 Active 6282308417984 Problem Primary osteoarthritis involving multiple joints M 15.0 Active 883869747 Problem Isolated proteinuria without specific morphologic lesion R80.0 Active 97744123 Problem 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 [address] [id number] [address] [place] [id number] May, [facility] [address] [id number] [address] [place] [phone] Mar, [facility] [address] [id number] [address] [place] [phone] Feb, [facility] [address] [id number] [address] [place] [phone] Feb, [facility] [address] [id number] [address] [place] [phone] Feb, [facility] [address] [facility] [id number] [address] [place] [phone] Feb, Generalized anxiety disorder F41.1 ; Major depressive disorder, recurrent episode, mild degree F33.0 and Habitual self-excoriation F42.4 [facility] [address] [id number] [address] [place] [phone] Feb, [facility] [address] [id number] [address] [place] [phone] Jan, [facility] [address] [id number] [address] [place] [phone] Jan, Pulmonary emphysema, unspeci fied emphysema type J43.9 [facility] [address] [id number] [address] [place] [id number] Jan, Dental examination Z01.20 an d Dental caries K02.9 [facility] [address] [id number] [address] [place] [id number] Jan, Generalized anxiety disorder F41.1 and Major depressive disorder, recurrent episode, mild degree F33.0 [facility] [address] [id number] [address] [place] [phone] Jan, [facility] [address] [place] [id number] [address] [place] [id number] Jan, Generalized anxiety disorder F41.[address] [facility] [address] [place] [id number] [address] [place] [phone] Jan, Oral abscess K12.2 and BMI 5 0.0-59.9, adult Z68.43 [facility] [address] [phone] Dec, BMI 50.0-59.9, adult Z68.43 and Weight loss counseling, encounter for Z71.3 [place] [address] [address] Dec, [place] [address] [address] Dec, [facility] [address] [address] November, [facility] [address] [address] November, [place] [address] [address] November, Pulmonary emphysema, unspeci fied emphysema type J43.9 ; Restrictive lung disease J98.4 ; BMI 50.0-59.9, adult Z68.43 ; History of renal cell cancer Z85.528 ; Essential hypertension I10 ; Mixed hyperlipidemia E78.2 and Fatty liver K76.0 [facility] [address] [place] [id number] [address] [place] [phone] November, Generalized anxiety disorder F41.1 [place] [address] [address] November, Generalized anxiety disorder F41.1 and Major depressive disorder, recurrent episode, mild degree F33.0 [place] [address] [address] November, Generalized anxiety disorder F41.1 ; Major depressive disorder, recurrent episode, mild degree F33.0 and Habitual self-excoriation F42.4 [facility] [address] [place] [id number] [address] [place] [address] November, [facility] [address] [place] [id number] [place] [phone] Oct, Generalized anxiety disorder F41.1 [facility] [address] [place] [id number] [place] [address] Oct, [facility] [address] [address] Oct, Influenza-like illness R69 [facility] [address] [place] [id number] [address] [place] [phone] Sep, Influenza-like illness R69 [facility] [address] [address] Sep, Generalized anxiety disorder F41.1 [facility] [address] [place] [id number] [address] [place] [phone] Sep, [facility] [address] [address] Aug, [facility] [address] [place] [id number] [address] [place] [phone] Aug, [facility] [address] [id number] Aug, Generalized anxiety disorder F41.1 [facility] [address] [place] [id number] [address] [place] [phone] Aug, Influenza-like illness R69 a nd BMI 50.0-59.9, adult Z68.43 [facility] [address] [place] [id number] [address] [place] [phone] Jul, Fatty liver K76.0 ; Restrict jean-paul lung disease J98.4 ; Diastolic dysfunction I51.9 ; Body mass index (bmi) 50-59.9 , adult Z68.43 and Chronic prescription opiate use Z79.899 [facility] [address] [facility] [id number] [address] [place] [phone] Jul, Generalized anxiety disorder F41.1 [facility] [address] [facility] [id number] [address] [place] [phone] Jul, Generalized anxiety disorder F41.1 [facility] [address] [facility] [id number] [address] [place] [id number] Jul, Primary osteoarthritis invol ving multiple joints M15.0 [facility] [address] [facility] [id number] [address] [place] [phone] Jun, Generalized anxiety disorder F41.1 [place] [address] [facility] [id number] [address] [place] [phone] Jun, [facility] [address] [facility] [id number] [address] [place] [phone] Jun, Mixed hyperlipidemia E78.2 [facility] [address] [facility] [id number] [address] [place] [phone] Jun, Generalized anxiety disorder F41.1 [facility] [address] [facility] [id number] [address] [place] [phone] Jun, Generalized anxiety disorder F41.1 ; Major depressive disorder, recurrent episode, mild degree F33.0 and Habitual self-excoriation F42.4 [facility] [address] [facility] [id number] [address] [place] [phone] May, [facility] [address] [facility] [id number] [address] [place] [phone] May, Generalized anxiety disorder F41.1 [facility] [address] [facility] [id number] [address] [place] [phone] May, Generalized anxiety disorder F41.1 [facility] [address] [id number] [address] [place] [phone] 06 May, 2017 Primary osteoarthritis invol ving multiple joints M15.0 [facility] [address] [id number] [address] [place] [phone] 09 Apr, 2017 Major depressive disorder, r ecurrent episode, mild degree F33.0 ; Generalized anxiety disorder F41.1 and Excoriation, neurotic L98.1 [facility] [address] [id number] [address] [place] [phone] 04 Apr, 2017 Primary osteoarthritis invol ving multiple joints M15.0 [facility] [address] [id number] [address] [place] [phone] Apr, Essential hypertension I10 a nd Mixed hyperlipidemia E78.2 [facility] [address] [id number] [address] [place] [phone] Apr, Generalized anxiety disorder F41.1 ; Major depressive disorder, recurrent episode, mild degree F33.0 and Habitual self-excoriation F42.4 [facility] [address] [id number] [address] [place] [phone] 06 Mar, 2017 Generalized anxiety disorder F41.1 ; Major depressive disorder, recurrent episode, mild degree F33.0 and Habitual self-excoriation F42.4 [facility] [address] [id number] [address] [place] [phone] Mar, Skin lesion L98.9 [facility] [address] [id number] [address] [place] [phone] Mar, Primary osteoarthritis invol ving multiple joints M15.0 [facility] [address] [id number] [address] [place] [phone] Mar, [facility] [address] [id number] [address] [place] [phone] Mar, [facility] [address] [facility] [id number] [address] [place] [phone] Feb, Major depressive disorder, r ecurrent episode, mild degree F33.0 ; Generalized anxiety disorder F41.1 and Excoriation, neurotic L98.1 [facility] [address] [facility] [id number] [address] [place] [phone] Feb, Generalized anxiety disorder F41.1 [facility] [address] [facility] [id number] [address] [place] [phone] Feb, Primary osteoarthritis invol ving multiple joints M15.0 [facility] [address] [facility] [id number] [address] [place] [phone] Jan, [facility] [address] [facility] [id number] [address] [place] [phone] Jan, Essential hypertension I10 ; Splenic artery aneurysm I72.8 ; Liver mass R16.0 ; Restrictive lung disease J98.4 ; Primary osteoarthritis involving multiple joints M15.0 ; Mixed hyperlipidemia E78.2 ; Bilateral carpal tunnel syndrome G56.03 ; Body mass index (bmi) 50-59.9 , adult Z68.43 and History of tobacco use Z87.891 [place] [id number] [place] [id number] [address] [place] [phone] Jan, Major depressive disorder, r ecurrent episode, mild degree F33.0 and Generalized anxiety disorder F41.1 [facility] [address] [facility] [id number] [address] [place] [phone] Jan, [facility] [address] [facility] [id number] [address] [place] [phone] Jan, Generalized anxiety disorder F41.1 and Major depressive disorder, recurrent episode, mild degree F33.0 [facility] [address] [facility] [id number] [address] [place] [phone] Dec, Primary osteoarthritis invol ving multiple joints M15.0 [facility] [address] [facility] [id number] [address] [place] [phone] Dec, Generalized anxiety disorder F41.1 [facility] [address] [facility] [id number] [address] [place] [phone] Dec, [place] [address] [place] [id number] [address] [place] [phone] Dec, Major depressive disorder, r ecurrent episode, mild degree F33.0 and Generalized anxiety disorder F41.1 [place] [address] [place] [id number] [address] [place] [phone] Dec, Generalized anxiety disorder F41.1 and Major depressive disorder, recurrent episode, mild degree F33.0 [place] [address] [place] [id number] [address] [place] [phone] November, Mild major depression F32.0 and Primary osteoarthritis involving multiple joints M15.0 [place] [address] [address] November, Major depressive disorder, r ecurrent episode, mild degree F33.0 and Generalized anxiety disorder F41.1 [place] [address] [place] [id number] [address] [place] [address] November, Primary osteoarthritis invol ving multiple joints M15.0 ; Essential hypertension I10 ; Prediabetes R73.09 ; Mixed hyperlipidemia E78.2 ; Chronic prescription benzodiazepine use Z79.899 ; Chronic prescription opiate use Z79.899 ; Tobacco use Z72.0 ; Bilateral carpal tunnel syndrome G56.03 and Body mass index (bmi) 50-59.9 , adult Z68.43 [place] [id number] [address] [place] [phone] November, Primary osteoarthritis invol ving multiple joints M15.0 and Mild major depression F32.0 [place] [address] [place] [id number] [address] [place] [address] Oct, [address] [address] Oct, Primary osteoarthritis invol ving multiple joints M15.0 ; Essential hypertension I10 ; Prediabetes R73.09 ; Chronic prescription benzodiazepine use Z79.899 ; Chronic prescription opiate use Z79.899 ; Tobacco use Z72.0 ; Mixed hyperlipidemia E78.2 ; Bilateral carpal tunnel syndrome G56.03 ; Body mass index (bmi) 50-59.9 , adult Z68.43 and Encounter for immunization Z23 [place] [address] [address] Oct, Major depressive disorder, r ecurrent episode, mild degree F33.0 and Generalized anxiety disorder F41.1 [place] [address] [address] Oct, [place] [address] [place] [id number] [place] [address] Oct, [place] [address] [address] Sep, Mild major depression F32.0 [place] [address] [place] [id number] [place] [phone] Sep, [place] [address] [address] Sep, Mild major depression F32.0 and Generalized anxiety disorder F41.1 [place] [address] [place] [id number] [place] [address] Sep, Paresthesia of both hands R2 0.2 and Cervical radiculopathy M54.12 [place] [address] [place] [id number] [address] [place] [phone] Sep, [place] [address] [place] [id number] [place] [phone] Sep, [facility] [address] [place] [id number] [address] [place] [phone] Aug, Paresthesia of both hands R2 0.2 [address] Neck pain M54.2 [facility] [address] [place] [id number] [address] [place] [phone] Aug, [facility] [address] [place] [id number] [place] [id number] Jul, Neck pain M54.2 and Paresthe eddie of both hands R20.2 [place] [address] [facility] [id number] [address] [place] [phone] Jul, Proteinuria, unspecified typ e R80.9 [facility] [address] [facility] [id number] [address] [place] [phone] Jul, Proteinuria, unspecified typ e R80.9 [place] [address] [facility] [id number] [address] [place] [phone] Jul, [place] [address] [facility] [id number] [address] [place] [phone] Jul, Other specified transient ce rebral ischemias G45.8 [place] [address] [facility] [id number] [address] [place] [phone] Jun, Diastolic dysfunction I51.9 [place] [address] [facility] [id number] [address] [place] [phone] Jun, Diastolic dysfunction I51.9 [place] [address] [facility] [id number] [address] [place] [phone] Jun, Major depressive disorder, s david episode, unspecified F32.9 and Anxiety disorder, unspecified F41.9 [place] [address] [facility] [id number] [address] [place] [phone] Jun, [place] [address] [facility] [id number] [address] [place] [phone] Jun, [place] [address] [facility] [id number] [address] [place] [id number] May, Moderate major depression F3 2.1 and Generalized anxiety disorder F41.1 [place] [address] [facility] [id number] [address] [place] [phone] May, Major depressive disorder, s david episode, unspecified F32.9 and Anxiety disorder, unspecified F41.9 [place] [address] [address] 15 May, 2016 [facility] [address] [address] 14 May, 2016 Liver enzyme elevation R74.8 [facility] [address] [address] 14 May, 2016 Liver enzyme elevation R74.8 [facility] [address] [address] 10 May, 2016 Shortness of breath on exert ion R06.02 ; Essential hypertension I10 ; Mixed hyperlipidemia E78.2 and Tobacco use Z72.0 [facility] [address] [address] 03 May, 2016 [facility] [address] [address] 02 May, 2016 [facility] [address] [address] Apr, Anxiety F41.[address] [facility] [address] [address] Apr, [facility] [address] [address] Apr, [facility] [address] [address] Mar, Depression F32.[address] [facility] [address] [address] 08 Mar, 2016 Anxiety F41.[address] [facility] [address] [address] 06 Mar, 2016 Well woman exam (no gynecolo gical exam) Z00.00 [facility] [address] [address] 02 Mar, 2016 [facility] [address] [id number] [address] [place] [phone] Mar, [facility] [address] [id number] [address] [place] [id number] Feb, Dental caries K02.9 [facility] [address] [id number] [address] [place] [phone] Feb, [facility] [address] [id number] [address] [place] [id number] Feb, Anxiety F41.9 and Depression F32.9 [facility] [address] [id number] [address] [place] [address] [id number] Feb, Dental examination Z01.20 [facility] [address] [id number] [address] [place] [phone] Feb, [facility] [address] [id number] [address] [place] [phone] Feb, [facility] [address] [id number] [address] [place] [phone] Feb, Anxiety F41.[address] [facility] [address] [id number] [address] [place] [phone] Jan, Severe episode of recurrent major depressive disorder, without psychotic features F33.2 and Anxiety disorder, unspecified F41.9 [facility] [address] [id number] [address] [place] [phone] Jan, [facility] [address] [id number] [address] [place] [phone] Dec, [facility] [address] [id number] [address] [place] [phone] Dec, Anxiety F41.[address] [facility] [address] [id number] [address] [place] [phone] Dec, Other specified transient ce rebral ischemias G45.8 and Nocturnal hypoxia G47.34 [place] [address] [id number] [address] [place] [phone] 18 Dec, 2015 [facility] [address] [id number] [address] [place] [phone] 17 Dec, 2015 Other specified transient ce rebral ischemias G45.8 [facility] [address] [id number] [address] [place] [phone] 16 Dec, 2015 Severe episode of recurrent major depressive disorder, without psychotic features F33.2 and Anxiety disorder, unspecified F41.9 [facility] [address] [id number] [address] [place] [phone] 13 Dec, 2015 [facility] [address] [id number] [address] [place] [phone] 13 Dec, 2015 Anxiety F41.9 and Depression F32.9 [place] [address] [id number] [address] [place] [phone] 07 Dec, 2015 Anxiety F41.9 and Depression F32.9 [place] [id number] [id number] [address] [place] [phone] Dec, [facility] [address] [id number] [address] [place] [phone] November, Anxiety F41.[address] [facility] [address] [id number] [address] [place] [phone] November, Severe episode of recurrent major depressive disorder, without psychotic features F33.2 [facility] [address] [id number] [address] [place] [phone] November, Mixed hyperlipidemia E78.2 [facility] [address] [facility] [id number] [address] [place] [phone] 10 Nov, 2015 Anxiety F41.[address] [facility] [address] [facility] [id number] [address] [place] [phone] 05 Nov, 2015 Prediabetes R73.09 ; Essenti al hypertension I10 ; Anxiety F41.9 ; Depression F32.9 ; Gastroesophageal reflux disease, esophagitis presence not specified K21.9 ; Primary osteoarthritis involving multiple joints M15.0 ; History of renal cell cancer Z85.528 ; Postnasal drip R09.82 ; Allergic rhinitis, unspecified J30.9 and Tobacco use Z72.0 [place] [id number] [id number] 11 Oct, 2015 Anxiety F41.9 and Depression F32.9 [place] [address] [id number] 07 Oct, 2015 [place] [address] [id number] Oct, [place] [address] [id number] 14 Sep, 2015 Splenic artery aneurysm I72. 8 [place] [address] [id number] 10 Sep, 2015 Depression F32.9 ; Anxiety F 41.9 ; Chronic prescription benzodiazepine use Z79.899 and Splenic artery aneurysm I72.8 [place] [address] [id number] 10 Sep, 2015 Depression F32.9 and Anxiety F41.9 [place] [address] [address] Sep, [place] [address] [id number] 18 Aug, 2015 Dehydration E86.0 ; Diarrhea R19.7 ; Nausea R11.0 and Generalized abdominal pain R10.84 [place] [address] [id number] Aug, [place] [address] [id number] Jul, Depression F32.9 [place] [address] [phone] Jul, [facility] [address] [id number] [address] [place] [phone] Jul, Anxiety F41.[address] [facility] [address] [id number] [address] [place] [phone] Jul, [facility] [address] [id number] [address] [place] [phone] Jun, Epigastric pain R10.13 [facility] [address] [id number] [address] [place] [phone] Jun, [facility] [address] [id number] [address] [place] [phone] Jun, [facility] [address] [facility] [id number] [address] [place] [phone] May, [facility] [address] [id number] [address] [place] [phone] May, [facility] [address] [id number] [address] [place] [phone] Apr, [facility] [address] [facility] [id number] [address] [place] [id number] Mar, Anxiety state, unspecified 3 00.00 ; Depression 311 ; Prediabetes 790.29 ; Generalized osteoarthrosis, involving multiple sites 715.[address] [facility] [address] [id number] [place] [phone] Mar, [facility] [address] [id number] [address] [place] [phone] Feb, [facility] [address] [id number] [address] [place] [phone] Jan, [facility] [address] [facility] [id number] [address] [place] [phone] Jan, [facility] [address] [id number] [address] [place] [phone] 08 Jan, 2015 Generalized osteoarthrosis, involving multiple sites 715.09 [facility] [address] [id number] [address] [place] [phone] 07 Jan, 2015 Hx of renal cell cancer V10. 52 [facility] [address] [id number] [address] [place] [phone] 30 Dec, 2014 Generalized osteoarthrosis, involving multiple sites 715.09 and Hx of renal cell cancer V10.52 [facility] [address] [id number] [address] [place] [phone] [address], [address] [facility] [address] [id number] [address] [place] [phone] Dec, [facility] [address] [id number] [address] [place] [phone] November, [facility] [address] [id number] [place] [phone] Oct, [facility] [address] [id number] [address] [place] [phone] Oct, [facility] [address] [id number] [address] [place] [phone] Sep, [facility] [address] [id number] [address] [place] [phone] Sep, [facility] [address] [id number] [address] [place] [phone] Sep, [facility] [address] [id number] [address] [place] [phone] Sep, [facility] [address] [id number] [address] [place] [phone] Aug, [facility] [address] [id number] [address] [place] [phone] Aug, IMMUNIZATIONS No Known Immunizations SOCIAL HISTORY Never Assessed REASON FOR VISIT Follow-up Depression/Anxiety PLAN OF CARE Activity Details Follow Up 4 Weeks Reason: Follow-up VITAL SIGNS MEDICATIONS Unknown Medications RESULTS No Results PROCEDURES Procedure Date Ordered Result Body Site Psychotherapy, patient &/family, 30 minutes, established patient December 04, 2017 INSTRUCTIONS MEDICATIONS ADMINISTERED No Known Medications MEDICAL [...]
--- OUTSIDE RECORDS SUMMARY | 2020-02-08 07:19 | XMS REPORT ---
Author Author Emilee MAY Organization [facility] Address [address] [place] [address] Care Team Providers Care Guest Service Team Leader Name Role Phone LALOJEZALBANIA Unavailable PROBLEMS Type Condition ICD9-CM Code GCM64-XF Code Onset Dates Condition S tatus SNOMED Code Problem Mixed hyperlipidemia E78.2 Active 494450014 Problem Fatty liver K76.0 Active 91022601 7 Problem Obstructive sleep apnea G47.33 Active 33392059 Problem Allergic rhinitis, unspecified J30.9 Active 70033017 Problem Essential hypertension I10 Active 56624462 Problem History of renal cell cancer Z85.528 A ctive 204272371 Problem Prediabetes R73.09 Active 2231778 Problem Diastolic dysfunction I51.9 Active 9695853 Problem Body mass index (bmi) 50-59.9 , adult Z68.43 Active 369592121 Problem Paresthesia of both hands R20.2 Acti ve 675949170 Problem Habitual self-excoriation 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 Acti ve 459294287 Problem BMI 50.0-59.9, adult Z68.43 Active 064998080 Problem Restrictive lung disease J98.4 Activ e 25949926 Problem Splenic artery aneurysm I72.8 Active 79033756 Problem Liver mass R16.0 Active 953020987 Problem Generalized anxiety disorder F41.1 A ctive 51752486 Problem Major depressive disorder, recurrent episode, mild degree F33.0 Active 030833989 Problem Excoriation, neurotic L98.1 Active 89180937 Problem History of tobacco use Z87.891 Active 6597846869505 Problem Primary osteoarthritis involving multiple joints M 15.0 Active 846204411 Problem Isolated proteinuria without specific morphologic lesion R80.0 Active 69738692 Problem 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 Active 871470574 Problem Pulmonary emphysema, unspecified emphysema type J4 3.9 Active 24488419 Problem Chronic prescription opiate use Z79.899 Active 129005679 Problem Tobacco use Z72.0 Active 12574909 0 Problem Bilateral carpal tunnel syndrome G56.03 Active 57562054 Problem Chronic prescription benzodiazepine use Z79.899 Active 299381248 ALLERGIES No Information ENCOUNTERS Encounter Location Date Diagnosis [facility] [id number] [place] [phone] Feb, [facility] [address] [address] Feb, [facility] [address] [address] Feb, [facility] [address] [address] Jan, Pulmonary emphysema, unspeci fied emphysema type J43.9 [facility] [id number] [place] [id number] Jan, Dental examination Z01.20 an d Dental caries K02.9 [facility] [id number] [place] [address] Jan, Generalized anxiety disorder F41.1 and Major depressive disorder, recurrent episode, mild degree F33.0 [facility] [id number] [address] [place] [address] Jan, [facility] [id number] [place] [address] Jan, Generalized anxiety disorder F41.1 [facility] [id number] [place] [address] Jan, Oral abscess K12.2 and BMI 5 0.0-59.9, adult Z68.43 [facility] [id number] [place] [address] Dec, BMI 50.0-59.9, adult Z68.43 and Weight loss counseling, encounter for Z71.3 [facility] [address] [address] Dec, [facility] [address] [facility] [id number] [address] [place] [phone] Dec, [facility] [id number] [place] [phone] November, [facility] [id number] [place] [address] November, [facility] [id number] [place] [address] November, Pulmonary emphysema, unspeci fied emphysema type J43.9 ; Restrictive lung disease J98.4 ; BMI 50.0-59.9, adult Z68.43 ; History of renal cell cancer Z85.528 ; Essential hypertension I10 ; Mixed hyperlipidemia E78.2 and Fatty liver K76.0 [place] [id number] [place] [address] November, Generalized anxiety disorder F41.1 [facility] [id number] [place] [address] November, Generalized anxiety disorder F41.1 and Major depressive disorder, recurrent episode, mild degree F33.0 [place] [id number] [place] [address] November, Generalized anxiety disorder F41.1 ; Major depressive disorder, recurrent episode, mild degree F33.0 and Habitual self-excoriation F42.4 [facility] [address] [facility] [id number] [address] [place] [id number] November, [facility] [address] [facility] [id number] [address] [place] [address] Oct, Generalized anxiety disorder F41.1 [facility] [id number] [place] [address] Oct, [facility] [id number] [place] [address] Oct, Influenza-like illness R69 [facility] [address] [place] [address] Sep, Influenza-like illness R69 [facility] [id number] [place] [address] Sep, Generalized anxiety disorder F41.1 [facility] [id number] [place] [address] Sep, [facility] [address] [address] Aug, [facility] [address] [address] Aug, [facility] [address] [address] Aug, Generalized anxiety disorder F41.1 [facility] [id number] [place] [address] Aug, Influenza-like illness R69 a nd BMI 50.0-59.9, adult Z68.43 [facility] [address] [address] Jul, Fatty liver K76.0 ; Restrict jean-paul lung disease J98.4 ; Diastolic dysfunction I51.9 ; Body mass index (bmi) 50-59.9 , adult Z68.43 and Chronic prescription opiate use Z79.899 [facility] [id number] [place] [address] Jul, Generalized anxiety disorder F41.1 [facility] [id number] [place] [address] Jul, Generalized anxiety disorder F41.1 [facility] [address] [address] Jul, Primary osteoarthritis invol ving multiple joints M15.0 [facility] [id number] [place] [address] Jun, Generalized anxiety disorder F41.1 [facility] [address] [id number] [address] [place] [address] Jun, [facility] [address] [facility] [id number] [address] [place] [address] Jun, Mixed hyperlipidemia E78.2 [facility] [address] [facility] [id number] [address] [place] [address] Jun, Generalized anxiety disorder F41.1 [facility] [address] [id number] [address] [place] [address] Jun, Generalized anxiety disorder F41.1 ; Major depressive disorder, recurrent episode, mild degree F33.0 and Habitual self-excoriation F42.4 [facility] [address] [facility] [id number] [address] [place] [address] May, [facility] [address] [facility] [id number] [address] [place] [address] May, Generalized anxiety disorder F41.1 [facility] [address] [facility] [id number] [address] [place] [address] May, Generalized anxiety disorder F41.1 [facility] [address] [facility] [id number] [address] [place] [address] May, Primary osteoarthritis invol ving multiple joints M15.0 [facility] [address] [facility] [id number] [address] [place] [address] Apr, Major depressive disorder, r ecurrent episode, mild degree F33.0 ; Generalized anxiety disorder F41.1 and Excoriation, neurotic L98.1 [facility] [address] [facility] [id number] [address] [place] [address] Apr, Primary osteoarthritis invol ving multiple joints M15.0 [facility] [address] [facility] [id number] [address] [place] [address] Apr, Essential hypertension I10 a nd Mixed hyperlipidemia E78.2 [facility] [address] [id number] [address] [place] [address] Apr, Generalized anxiety disorder F41.1 ; Major depressive disorder, recurrent episode, mild degree F33.0 and Habitual self-excoriation F42.4 [facility] [address] [id number] [address] [place] [address] Mar, Generalized anxiety disorder F41.1 ; Major depressive disorder, recurrent episode, mild degree F33.0 and Habitual self-excoriation F42.4 [facility] [address] [id number] [address] [place] [id number] Mar, Skin lesion L98.9 [facility] [address] [id number] [address] [place] [address] Mar, Primary osteoarthritis invol ving multiple joints M15.0 [facility] [address] [id number] [address] [place] [address] Mar, [facility] [address] [id number] [address] [place] [address] Mar, [facility] [address] [id number] [address] [place] [address] Feb, Major depressive disorder, r ecurrent episode, mild degree F33.0 ; Generalized anxiety disorder F41.1 and Excoriation, neurotic L98.1 [facility] [address] [id number] [address] [place] [address] Feb, Generalized anxiety disorder F41.1 [facility] [address] [id number] [address] [place] [address] Feb, Primary osteoarthritis invol ving multiple joints M15.0 [facility] [address] [id number] [address] [place] [address] Jan, [facility] [address] [id number] [address] [place] [address] Jan, Essential hypertension I10 ; Splenic artery aneurysm I72.8 ; Liver mass R16.0 ; Restrictive lung disease J98.4 ; Primary osteoarthritis involving multiple joints M15.0 ; Mixed hyperlipidemia E78.2 ; Bilateral carpal tunnel syndrome G56.03 ; Body mass index (bmi) 50-59.9 , adult Z68.43 and History of tobacco use Z87.891 [facility] [address] [id number] [address] [place] [id number] Jan, Major depressive disorder, r ecurrent episode, mild degree F33.0 and Generalized anxiety disorder F41.1 [facility] [address] [id number] [address] [place] [address] Jan, [place] [id number] [id number] [address] [place] [address] Jan, Generalized anxiety disorder F41.1 and Major depressive disorder, recurrent episode, mild degree F33.0 [place] [address] [id number] [address] [place] [address] Dec, Primary osteoarthritis invol ving multiple joints M15.0 [facility] [address] [id number] [address] [place] [address] Dec, Generalized anxiety disorder F41.1 [facility] [address] [id number] [address] [place] [address] Dec, [place] [address] [id number] [address] [place] [address] Dec, Major depressive disorder, r ecurrent episode, mild degree F33.0 and Generalized anxiety disorder F41.1 [facility] [address] [id number] [address] [place] [address] Dec, Generalized anxiety disorder F41.1 and Major depressive disorder, recurrent episode, mild degree F33.0 [facility] [address] [id number] [address] [place] [address] November, Mild major depression F32.0 and Primary osteoarthritis involving multiple joints M15.0 [facility] [address] [id number] [address] [place] [address] November, Major depressive disorder, r ecurrent episode, mild degree F33.0 and Generalized anxiety disorder F41.1 [place] [address] [address] November, Primary osteoarthritis invol ving multiple joints M15.0 ; Essential hypertension I10 ; Prediabetes R73.09 ; Mixed hyperlipidemia E78.2 ; Chronic prescription benzodiazepine use Z79.899 ; Chronic prescription opiate use Z79.899 ; Tobacco use Z72.0 ; Bilateral carpal tunnel syndrome G56.03 and Body mass index (bmi) 50-59.9 , adult Z68.43 [place] [address] [address] November, Primary osteoarthritis invol ving multiple joints M15.0 and Mild major depression F32.0 [place] [address] [address] Oct, [place] [address] [address] Oct, Primary osteoarthritis invol ving multiple joints M15.0 ; Essential hypertension I10 ; Prediabetes R73.09 ; Chronic prescription benzodiazepine use Z79.899 ; Chronic prescription opiate use Z79.899 ; Tobacco use Z72.0 ; Mixed hyperlipidemia E78.2 ; Bilateral carpal tunnel syndrome G56.03 ; Body mass index (bmi) 50-59.9 , adult Z68.43 and Encounter for immunization Z23 [place] [id number] [place] [address] Oct, Major depressive disorder, r ecurrent episode, mild degree F33.0 and Generalized anxiety disorder F41.1 [place] [address] [address] Oct, [place] [address] [address] Oct, [place] [address] [address] Sep, Mild major depression F32.0 [facility] [address] [facility] [id number] [address] [place] [id number] Sep, [facility] [address] [facility] [id number] [address] [place] [address] Sep, Mild major depression F32.0 and Generalized anxiety disorder F41.1 [facility] [address] [facility] [id number] [address] [place] [address] Sep, Paresthesia of both hands R2 0.2 and Cervical radiculopathy M54.12 [facility] [address] [facility] [id number] [address] [place] [address] Sep, [facility] [address] [facility] [id number] [address] [place] [address] Sep, [facility] [id number] [address] [place] [address] Aug, Paresthesia of both hands R2 0.2 and Neck pain M54.2 [facility] [address] [facility] [id number] [address] [place] [address] Aug, [facility] [address] [facility] [id number] [address] [place] [address] Jul, Neck pain M54.2 and Paresthe eddie of both hands R20.2 [facility] [address] [facility] [id number] [address] [place] [address] Jul, Proteinuria, unspecified typ e R80.9 [facility] [address] [facility] [id number] [address] [place] [address] Jul, Proteinuria, unspecified typ e R80.9 [facility] [address] [facility] [id number] [address] [place] [address] Jul, [facility] [address] [facility] [id number] [address] [place] [address] Jul, Other specified transient ce rebral ischemias G45.8 [place] [address] [facility] [id number] [address] [place] [address] 12 Jun, 2016 Diastolic dysfunction I51.9 [facility] [address] [facility] [id number] [address] [place] [id number] 08 Jun, 2016 Diastolic dysfunction I51.9 [facility] [address] [facility] [id number] [address] [place] [address] 06 Jun, 2016 Major depressive disorder, s david episode, unspecified F32.9 and Anxiety disorder, unspecified F41.9 [facility] [address] [facility] [id number] [address] [place] [address] Jun, [facility] [address] [facility] [id number] [address] [place] [address] Jun, [facility] [id number] [place] [address] May, Moderate major depression F3 2.1 and Generalized anxiety disorder F41.1 [facility] [address] [facility] [id number] [address] [place] [address] 16 May, 2016 Major depressive disorder, s david episode, unspecified F32.9 and Anxiety disorder, unspecified F41.9 [facility] [address] [facility] [id number] [address] [place] [address] 15 May, 2016 [place] [address] [facility] [id number] [address] [place] [address] 14 May, 2016 Liver enzyme elevation R74.8 [facility] [address] [facility] [id number] [address] [place] [address] 14 May, 2016 Liver enzyme elevation R74.8 [place] [id number] [place] [phone] 10 May, 2016 Shortness of breath on exert ion R06.02 ; Essential hypertension I10 ; Mixed hyperlipidemia E78.2 and Tobacco use Z72.0 [place] [id number] [place] [id number] May, [facility] [address] [id number] [address] [place] [id number] May, [facility] [address] [id number] [address] [place] [address] Apr, Anxiety F41.9 and Depression F32.9 [facility] [address] [id number] [address] [place] [address] Apr, [facility] [address] [id number] [address] [place] [id number] Apr, [facility] [address] [id number] [address] [place] [id number] Mar, Depression F32.9 and Anxiety F41.9 [facility] [address] [id number] [address] [place] [address] Mar, Anxiety F41.9 and Depression F32.9 [facility] [address] [id number] [address] [place] [address] Mar, Well woman exam (no gynecolo gical exam) Z00.00 [facility] [address] [id number] [address] [place] [id number] Mar, [facility] [address] [id number] [address] [place] [phone] Mar, [facility] [address] [id number] [address] [place] [id number] Feb, Dental caries K02.9 [facility] [address] [id number] [address] [place] [id number] Feb, [facility] [address] [id number] [address] [place] [address] Feb, Anxiety F41.[address] [facility] [address] [id number] [address] [place] [id number] Feb, Dental examination Z01.20 [facility] [address] [id number] [address] [place] [id number] Feb, [facility] [address] [id number] [address] [place] [id number] Feb, [facility] [address] [id number] [address] [place] [address] Feb, Anxiety F41.9 and Depression F32.9 [facility] [address] [id number] [address] [place] [address] Jan, Severe episode of recurrent major depressive disorder, without psychotic features F33.2 and Anxiety disorder, unspecified F41.9 [facility] [address] [id number] [address] [place] [phone] Jan, [facility] [address] [id number] [address] [place] [address] Dec, [facility] [address] [id number] [address] [place] [id number] Dec, Anxiety F41.9 and Depression F32.9 [facility] [address] [id number] [address] [place] [id number] Dec, Other specified transient ce rebral ischemias G45.8 and Nocturnal hypoxia G47.34 [facility] [address] [id number] [address] [place] [id number] Dec, [facility] [address] [id number] [address] [place] [id number] Dec, Other specified transient ce rebral ischemias G45.8 [facility] [address] [id number] [address] [place] [id number] 16 Dec, 2015 Severe episode of recurrent major depressive disorder, without psychotic features F33.2 and Anxiety disorder, unspecified F41.9 [facility] [address] [id number] [address] [place] [phone] Dec, [facility] [address] [facility] [id number] [address] [place] [id number] Dec, Anxiety F41.9 and Depression F32.9 [facility] [address] [facility] [id number] [address] [place] [id number] Dec, Anxiety F41.9 and Depression F32.9 [facility] [address] [facility] [id number] [address] [place] [id number] Dec, [place] [address] [place] [id number] [address] [place] [id number] November, Anxiety F41.9 and Depression F32.9 [place] [address] [place] [id number] [address] [place] [id number] November, Severe episode of recurrent major depressive disorder, without psychotic features F33.2 [place] [address] [place] [id number] [address] [place] [id number] November, Mixed hyperlipidemia E78.2 [place] [address] [place] [id number] [address] [place] [id number] November, Anxiety F41.9 and Depression F32.9 [place] [address] [place] [id number] [address] [place] [id number] November, Prediabetes R73.09 ; Essenti al hypertension I10 ; Anxiety F41.9 ; Depression F32.9 ; Gastroesophageal reflux disease, esophagitis presence not specified K21.9 ; Primary osteoarthritis involving multiple joints M15.0 ; History of renal cell cancer Z85.528 ; Postnasal drip R09.82 ; Allergic rhinitis, unspecified J30.9 and Tobacco use Z72.0 [place] [address] [place] [id number] [address] [place] [id number] Oct, Anxiety F41.9 and Depression F32.9 [place] [address] [place] [id number] [address] [place] [id number] Oct, [place] [address] [place] [id number] [address] [place] [id number] Oct, [place] [address] [place] [id number] [address] [place] [id number] 14 Sep, 2015 Splenic artery aneurysm I72. 8 [facility] [address] [id number] 10 Sep, 2015 Depression F32.9 ; Anxiety F 41.9 ; Chronic prescription benzodiazepine use Z79.899 and Splenic artery aneurysm I72.8 [facility] [address] [id number] 10 Sep, 2015 Depression F32.9 and Anxiety F41.9 [facility] [address] [id number] 02 Sep, 2015 [facility] [address] [id number] 18 Aug, 2015 Dehydration E86.0 ; Diarrhea R19.7 ; Nausea R11.0 and Generalized abdominal pain R10.84 [facility] [address] [id number] Aug, [facility] [address] [id number] Jul, Depression F32.9 [facility] [address] [id number] Jul, [facility] [address] [id number] Jul, Anxiety F41.9 and Depression F32.9 [facility] [address] [id number] Jul, [facility] [address] [id number] Jun, Epigastric pain R10.13 [facility] [address] [place] [id number] [address] [place] [id number] Jun, [facility] [address] [id number] Jun, [facility] [address] [id number] [address] [place] [id number] May, [facility] [address] [facility] [id number] [address] [place] [id number] May, [facility] [address] [id number] [address] [place] [id number] Apr, [facility] [address] [id number] [address] [place] [id number] Mar, Anxiety state, unspecified 3 00.00 ; Depression 311 ; Prediabetes 790.29 ; Generalized osteoarthrosis, involving multiple sites 715.09 and Hypertension 401.9 [facility] [address] [id number] [address] [place] [id number] Mar, [facility] [address] [facility] [id number] [address] [place] [id number] Feb, [facility] [address] [facility] [id number] [address] [place] [id number] Jan, [facility] [address] [id number] [address] [place] [id number] Jan, [facility] [address] [facility] [id number] [address] [place] [id number] Jan, Generalized osteoarthrosis, involving multiple sites 715.09 [facility] [address] [facility] [id number] [address] [place] [phone] Jan, Hx of renal cell cancer V10. 52 [facility] [address] [facility] [id number] [address] [place] [id number] Dec, Generalized osteoarthrosis, involving multiple sites 715.09 and Hx of renal cell cancer V10.52 [facility] [address] [id number] [address] [place] [id number] Dec, [facility] [address] [facility] [id number] [address] [place] [id number] Dec, [facility] [address] [id number] [address] [place] [id number] November, [facility] [address] [id number] [address] [place] [id number] Oct, [facility] [address] [id number] [address] [place] [id number] Oct, [facility] [address] [id number] [address] [place] [id number] Sep, [facility] [address] [id number] [address] [place] [id number] Sep, [facility] [address] [id number] [address] [place] [id number] Sep, [facility] [address] [id number] [address] [place] [id number] Sep, [facility] [address] [id number] [address] [place] [id number] Aug, [facility] [address] [id number] [address] [place] [id number] Aug, IMMUNIZATIONS No Known Immunizations SOCIAL HISTORY [...]
--- OUTSIDE RECORDS SUMMARY | 2020-02-08 07:20 | XMS REPORT ---
Author Author Emilee NO Organization [facility] Address [address] [place] [address] Care Team Providers Care Miller Supervisor Name Role Phone [email or web address] Unavailable PROBLEMS Type Condition ICD9-CM Code WPH80-CT Code Onset Dates Condition S tatus SNOMED Code Problem Mixed hyperlipidemia E78.2 Active 611297723 Problem Fatty liver K76.0 Active 99165582 7 Problem Obstructive sleep apnea G47.33 Active 86221885 Problem Allergic rhinitis, unspecified J30.9 Active 38763541 Problem Essential hypertension I10 Active 07888598 Problem History of renal cell cancer Z85.528 A ctive 030367484 Problem Prediabetes R73.09 Active 1767467 Problem Diastolic dysfunction I51.9 Active 0233601 Problem Body mass index (bmi) 50-59.9 , adult Z68.43 Active 959171460 Problem Paresthesia of both hands R20.2 Acti ve 120195742 Problem Habitual self-excoriation F42.4 Acti ve 720236546 Problem BMI 50.0-59.9, adult Z68.43 Active 912447224 Problem Restrictive lung disease J98.4 Activ e 94298097 Problem Splenic artery aneurysm I72.8 Active 40086834 Problem Liver mass R16.0 Active 851466723 Problem Generalized anxiety disorder F41.1 A ctive 27343229 Problem Major depressive disorder, recurrent episode, mild degree F33.0 Active 938164413 Problem Excoriation, neurotic L98.1 Active 07200327 Problem History of tobacco use Z87.891 Active 3379611413097 Problem Primary osteoarthritis involving multiple joints M 15.0 Active 982317809 Problem Isolated proteinuria without specific morphologic lesion R80.0 Active 91022358 Problem 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 Active 169827285 Problem Pulmonary emphysema, unspecified emphysema type J4 3.9 Active 88122261 Problem Chronic prescription opiate use Z79.899 Active 071395306 Problem Tobacco use Z72.0 Active 84251308 0 Problem Bilateral carpal tunnel syndrome G56.03 Active 26915874 Problem Chronic prescription benzodiazepine use Z79.899 Active 661839413 ALLERGIES No Information ENCOUNTERS Encounter Location Date Diagnosis [facility] [id number] [place] [address] Feb, [facility] [address] [address] Feb, [facility] [address] [address] Feb, [facility] [address] [address] Jan, Pulmonary emphysema, unspeci fied emphysema type J43.9 [facility] [id number] [place] [id number] Jan, Dental examination Z01.20 an d Dental caries K02.9 [facility] [id number] [place] [address] Jan, Generalized anxiety disorder F41.1 and Major depressive disorder, recurrent episode, mild degree F33.0 [facility] [id number] [place] [address] Jan, [facility] [id number] [place] [address] Jan, Generalized anxiety disorder F41.1 [facility] [id number] [place] [address] Jan, Oral abscess K12.2 and BMI 5 0.0-59.9, adult Z68.43 [facility] [address] [id number] [address] [place] [address] Dec, 2018 BMI 50.0-59.9, adult Z68.43 and Weight loss counseling, encounter for Z71.3 [facility] [address] [address] Dec, [facility] [address] [facility] [id number] [address] [place] [address] Dec, [facility] [address] [id number] [address] [place] [address] November, [facility] [address] [id number] [address] [place] [address] November, [facility] [id number] [place] [address] November, Pulmonary emphysema, unspeci fied emphysema type J43.9 ; Restrictive lung disease J98.4 ; BMI 50.0-59.9, adult Z68.43 ; History of renal cell cancer Z85.528 ; Essential hypertension I10 ; Mixed hyperlipidemia E78.2 and Fatty liver K76.0 [facility] [address] [id number] [address] [place] [address] November, Generalized anxiety disorder F41.1 [facility] [address] [id number] [address] [place] [address] November, Generalized anxiety disorder F41.1 and Major depressive disorder, recurrent episode, mild degree F33.0 [place] [id number] [place] [address] November, Generalized anxiety disorder F41.1 ; Major depressive disorder, recurrent episode, mild degree F33.0 and Habitual self-excoriation F42.4 [facility] [address] [facility] [id number] [address] [place] [address] November, [facility] [address] [facility] [id number] [address] [place] [address] Oct, Generalized anxiety disorder F41.1 [facility] [id number] [address] [place] [address] Oct, [facility] [address] [id number] [address] [place] [address] Oct, Influenza-like illness R69 [facility] [address] [place] [address] Sep, Influenza-like illness R69 [facility] [id number] [place] [address] Sep, Generalized anxiety disorder F41.1 [facility] [id number] [place] [address] Sep, [facility] [address] [address] Aug, [facility] [address] [address] Aug, [facility] [address] [address] Aug, Generalized anxiety disorder F41.1 [facility] [id number] [place] [address] Aug, Influenza-like illness R69 a nd BMI 50.0-59.9, adult Z68.43 [facility] [address] [address] Jul, Fatty liver K76.0 ; Restrict jean-paul lung disease J98.4 ; Diastolic dysfunction I51.9 ; Body mass index (bmi) 50-59.9 , adult Z68.43 and Chronic prescription opiate use Z79.899 [facility] [id number] [place] [address] Jul, Generalized anxiety disorder F41.1 [facility] [id number] [place] [address] Jul, Generalized anxiety disorder F41.1 [facility] [id number] [place] [address] Jul, Primary osteoarthritis invol ving multiple joints M15.0 [facility] [id number] [place] [address] Jun, Generalized anxiety disorder F41.1 [facility] [address] [id number] [address] [place] [address] Jun, [facility] [address] [facility] [id number] [address] [place] [address] Jun, Mixed hyperlipidemia E78.2 [facility] [address] [facility] [id number] [address] [place] [address] Jun, Generalized anxiety disorder F41.1 [facility] [address] [id number] [address] [place] [address] Jun, Generalized anxiety disorder F41.1 ; Major depressive disorder, recurrent episode, mild degree F33.0 and Habitual self-excoriation F42.4 [facility] [address] [facility] [id number] [address] [place] [address] May, [facility] [address] [facility] [id number] [address] [place] [address] May, Generalized anxiety disorder F41.1 [facility] [address] [facility] [id number] [address] [place] [address] May, Generalized anxiety disorder F41.1 [facility] [address] [facility] [id number] [address] [place] [address] May, Primary osteoarthritis invol ving multiple joints M15.0 [facility] [address] [facility] [id number] [address] [place] [address] Apr, Major depressive disorder, r ecurrent episode, mild degree F33.0 ; Generalized anxiety disorder F41.1 and Excoriation, neurotic L98.1 [facility] [address] [facility] [id number] [address] [place] [address] Apr, Primary osteoarthritis invol ving multiple joints M15.0 [facility] [address] [facility]] [id number] [address] [place] [address] Apr, Essential hypertension I10 a nd Mixed hyperlipidemia E78.2 [facility] [address] [id number] [address] [place] [address] Apr, Generalized anxiety disorder F41.1 ; Major depressive disorder, recurrent episode, mild degree F33.0 and Habitual self-excoriation F42.4 [facility] [address] [id number] [address] [place] [address] Mar, Generalized anxiety disorder F41.1 ; Major depressive disorder, recurrent episode, mild degree F33.0 and Habitual self-excoriation F42.4 [facility] [address] [id number] [address] [place] [address] Mar, Skin lesion L98.9 [facility] [address] [id number] [address] [place] [address] Mar, Primary osteoarthritis invol ving multiple joints M15.0 [facility] [address] [id number] [address] [place] [address] Mar, [facility] [address] [id number] [address] [place] [address] Mar, [facility] [address] [id number] [address] [place] [address] Feb, Major depressive disorder, r ecurrent episode, mild degree F33.0 ; Generalized anxiety disorder F41.1 and Excoriation, neurotic L98.1 [facility] [address] [id number] [address] [place] [address] Feb, Generalized anxiety disorder F41.1 [facility] [address] [id number] [address] [place] [address] Feb, Primary osteoarthritis invol ving multiple joints M15.0 [facility] [address] [id number] [address] [place] [address] Jan, [facility] [address] [id number] [address] [place] [address] Jan, Essential hypertension I10 ; Splenic artery aneurysm I72.8 ; Liver mass R16.0 ; Restrictive lung disease J98.4 ; Primary osteoarthritis involving multiple joints M15.0 ; Mixed hyperlipidemia E78.2 ; Bilateral carpal tunnel syndrome G56.03 ; Body mass index (bmi) 50-59.9 , adult Z68.43 and History of tobacco use Z87.891 [facility] [address] [id number] [address] [place] [address] Jan, Major depressive disorder, r ecurrent episode, mild degree F33.0 and Generalized anxiety disorder F41.1 [facility] [address] [id number] [address] [place] [address] Jan, [place] [address] [id number] [address] [place] [address] Jan, Generalized anxiety disorder F41.1 and Major depressive disorder, recurrent episode, mild degree F33.0 [place] [address] [id number] [address] [place] [address] Dec, Primary osteoarthritis invol ving multiple joints M15.0 [facility] [address] [id number] [address] [place] [address] Dec, Generalized anxiety disorder F41.1 [facility] [address] [id number] [address] [place] [address] Dec, [place] [address] [id number] [address] [place] [address] Dec, Major depressive disorder, r ecurrent episode, mild degree F33.0 and Generalized anxiety disorder F41.1 [facility] [address] [id number] [address] [place] [address] Dec, Generalized anxiety disorder F41.1 and Major depressive disorder, recurrent episode, mild degree F33.0 [facility] [address] [facility] [id number] [address] [place] [address] November, Mild major depression F32.0 and Primary osteoarthritis involving multiple joints M15.0 [facility] [address] [id number] [address] [place] [address] November, Major depressive disorder, r ecurrent episode, mild degree F33.0 and Generalized anxiety disorder F41.1 [place] [address] [address] November, Primary osteoarthritis invol ving multiple joints M15.0 ; Essential hypertension I10 ; Prediabetes R73.09 ; Mixed hyperlipidemia E78.2 ; Chronic prescription benzodiazepine use Z79.899 ; Chronic prescription opiate use Z79.899 ; Tobacco use Z72.0 ; Bilateral carpal tunnel syndrome G56.03 and Body mass index (bmi) 50-59.9 , adult Z68.43 [place] [address] [address] November, Primary osteoarthritis invol ving multiple joints M15.0 and Mild major depression F32.0 [place] [address] [address] Oct, [place] [address] [address] Oct, Primary osteoarthritis invol ving multiple joints M15.0 ; Essential hypertension I10 ; Prediabetes R73.09 ; Chronic prescription benzodiazepine use Z79.899 ; Chronic prescription opiate use Z79.899 ; Tobacco use Z72.0 ; Mixed hyperlipidemia E78.2 ; Bilateral carpal tunnel syndrome G56.03 ; Body mass index (bmi) 50-59.9 , adult Z68.43 and Encounter for immunization Z23 [place] [id number] [place] [address] Oct, Major depressive disorder, r ecurrent episode, mild degree F33.0 and Generalized anxiety disorder F41.1 [place] [address] [address] Oct, [place] [address] [address] Oct, [place] [address] [address] Sep, Mild major depression F32.0 [facility] [address] [facility] [id number] [address] [place] [address] Sep, [facility] [address] [facility] [id number] [address] [place] [address] Sep, Mild major depression F32.0 and Generalized anxiety disorder F41.1 [facility] [address] [facility] [id number] [address] [place] [address] Sep, Paresthesia of both hands R2 0.2 and Cervical radiculopathy M54.12 [facility] [address] [facility]] [id number] [address] [place] [address] Sep, [facility] [address] [facility]] [id number] [address] [place] [address] Sep, [facility] [address] [facility] [id number] [address] [place] [address] Aug, Paresthesia of both hands R2 0.2 and Neck pain M54.2 [facility] [address] [facility]] [id number] [address] [place] [address] Aug, [facility] [address] [facility]] [id number] [address] [place] [address] Jul, Neck pain M54.2 and Paresthe eddie of both hands R20.2 [facility] [address] [facility]] [id number] [address] [place] [address] Jul, Proteinuria, unspecified typ e R80.9 [facility] [address] [facility]] [id number] [address] [place] [address] Jul, Proteinuria, unspecified typ e R80.9 [facility] [address] [facility]] [id number] [address] [place] [address] Jul, [facility] [address] [facility] [id number] [address] [place] [address] Jul, Other specified transient ce rebral ischemias G45.8 [place] [address] [facility]] [id number] [address] [place] [address] 12 Jun, 2016 Diastolic dysfunction I51.9 [facility] [address] [facility] [id number] [address] [place] [address] 08 Jun, 2016 Diastolic dysfunction I51.9 [facility] [address] [facility] [id number] [address] [place] [address] 06 Jun, 2016 Major depressive disorder, s david episode, unspecified F32.9 and Anxiety disorder, unspecified F41.9 [facility] [address] [facility]] [id number] [address] [place] [address] Jun, [facility] [address] [facility] [id number] [address] [place] [address] Jun, [place] [address] [id number] [address] [place] [address] May, Moderate major depression F3 2.1 and Generalized anxiety disorder F41.1 [place] [address] [facility] [id number] [address] [place] [address] 16 May, 2016 Major depressive disorder, s david episode, unspecified F32.9 and Anxiety disorder, unspecified F41.9 [place] [address] [facility]] [id number] [address] [place] [address] 15 May, 2016 [place] [address] [facility]] [id number] [address] [place] [address] 14 May, 2016 Liver enzyme elevation R74.8 [place] [address] [facility] [id number] [address] [place] [address] 14 May, 2016 Liver enzyme elevation R74.8 [place] [address] [id number] [place] [address] 10 May, 2016 Shortness of breath on exert ion R06.02 ; Essential hypertension I10 ; Mixed hyperlipidemia E78.2 and Tobacco use Z72.0 [place] [address] [id number] [place] [address] May, [facility] [address] [id number] [address] [place] [address] May, [facility] [address] [id number] [address] [place] [address] Apr, Anxiety F41.9 and Depression F32.9 [facility] [address] [id number] [address] [place] [address] Apr, [facility] [address] [id number] [address] [place] [address] Apr, [facility] [address] [id number] [address] [place] [address] Mar, Depression F32.9 and Anxiety F41.9 [facility] [address] [id number] [address] [place] [address] Mar, Anxiety F41.9 and Depression F32.9 [facility] [address] [id number] [address] [place] [address] Mar, Well woman exam (no gynecolo gical exam) Z00.00 [facility] [address] [id number] [address] [place] [address] Mar, [facility] [address] [id number] [address] [place] [address] Mar, [facility] [address] [id number] [address] [place] [id number] Feb, Dental caries K02.9 [facility] [address] [id number] [address] [place] [address] Feb, [facility] [address] [id number] [address] [place] [address] Feb, Anxiety F41.9 and Depression F32.9 [facility] [address] [id number] [address] [place] [id number] Feb, Dental examination Z01.20 [facility] [address] [id number] [address] [place] [address] Feb, [facility] [address] [id number] [address] [place] [address] Feb, [facility] [address] [id number] [address] [place] [address] Feb, Anxiety F41.9 and Depression F32.9 [facility] [address] [id number] [address] [place] [address] Jan, Severe episode of recurrent major depressive disorder, without psychotic features F33.2 and Anxiety disorder, unspecified F41.9 [facility] [address] [id number] [address] [place] [address] Jan, [facility] [address] [id number] [address] [place] [address] Dec, [facility] [address] [id number] [address] [place] [address] Dec, Anxiety F41.9 and Depression F32.9 [facility] [address] [id number] [address] [place] [address] Dec, Other specified transient ce rebral ischemias G45.8 and Nocturnal hypoxia G47.34 [facility] [address] [id number] [address] [place] [address] Dec, [facility] [address] [id number] [address] [place] [address] Dec, Other specified transient ce rebral ischemias G45.8 [facility] [address] [id number] [address] [place] [address] 16 Dec, 2015 Severe episode of recurrent major depressive disorder, without psychotic features F33.2 and Anxiety disorder, unspecified F41.9 [facility] [address] [id number] [address] [place] [address] Dec, [facility] [address] [id number] [address] [place] [address] 13 Dec, 2015 Anxiety F41.9 and Depression F32.9 [facility] [address] [place] [id number] [address] [place] [id number] Dec, Anxiety F41.9 and Depression F32.9 [facility] [address] [facility][NOTE 3] [id number] [address] [place] [id number] Dec, [place] [address] [place] [id number] [address] [place] [id number] November, Anxiety F41.9 and Depression F32.9 [place] [address] [place] [id number] [address] [place] [id number] November, Severe episode of recurrent major depressive disorder, without psychotic features F33.2 [place] [address] [place] [id number] [place] [phone] November, Mixed hyperlipidemia E78.2 [place] [place] [address] [place] [id number] [place] [id number] November, Anxiety F41.9 and Depression F32.9 [place] [id number] [place] [id number] November, Prediabetes R73.09 ; Essenti al hypertension I10 ; Anxiety F41.9 ; Depression F32.9 ; Gastroesophageal reflux disease, esophagitis presence not specified K21.9 ; Primary osteoarthritis involving multiple joints M15.0 ; History of renal cell cancer Z85.528 ; Postnasal drip R09.82 ; Allergic rhinitis, unspecified J30.9 and Tobacco use Z72.0 [place] [id number] [place] [id number] [address] [place] [id number] Oct, Anxiety F41.9 and Depression F32.9 [place] [address] [place] [id number] [address] [place] [id number] Oct, [place] [address] [place] [id number] [address] [place] [id number] Oct, [place] [address] [place] [id number] [place] [id number] 14 Sep, 2015 Splenic artery aneurysm I72. 8 [facility] [address] [address] 10 Sep, 2015 Depression F32.9 ; Anxiety F 41.9 ; Chronic prescription benzodiazepine use Z79.899 and Splenic artery aneurysm I72.8 [facility] [address] [id number] 10 Sep, 2015 Depression F32.9 and Anxiety F41.9 [facility] [address] [place] [id number] [place] [phone] 02 Sep, 2015 [facility] [address] [id number] 18 Aug, 2015 Dehydration E86.0 ; Diarrhea R19.7 ; Nausea R11.0 and Generalized abdominal pain R10.84 [facility] [address] [address] Aug, [facility] [address] [address] Jul, Depression F32.9 [facility] [address] [place] [id number] [place] [phone] Jul, [facility] [address] [place] [id number] [place] [phone] Jul, Anxiety F41.9 and Depression F32.9 [facility] [address] [place] [id number] [address] [place] [phone] Jul, [facility] [address] [id number] Jun, Epigastric pain R10.13 [facility] [address] [place] [id number] [address] [place] [phone] Jun, [facility] [address] [address] Jun, [facility] [address] [id number] [address] [place] [id number] May, [facility] [address] [facility]NOTE 3] [id number] [address] [place] [phone] May, [facility] [address] [facility]] [id number] [address] [place] [phone] Apr, [facility] [address] [facility]] [id number] [address] [place] [id number] Mar, Anxiety state, unspecified 3 00.00 ; Depression 311 ; Prediabetes 790.29 ; Generalized osteoarthrosis, involving multiple sites 715.09 and Hypertension 401.9 [facility] [address] [facility]] [id number] [address] [place] [phone] Mar, [facility] [address] [facility]] [id number] [address] [place] [phone] Feb, [facility] [address] [facility]] [id number] [address] [place] [phone] Jan, [facility] [address] [facility]] [id number] [address] [place] [phone] Jan, [facility] [address] [facility]] [id number] [address] [place] [address] Jan, Generalized osteoarthrosis, involving multiple sites 715.09 [facility] [address] [facility]] [id number] [address] [place] [phone] Jan, Hx of renal cell cancer V10. 52 [facility] [address] [facility]] [id number] [address] [place] [id number] Dec, Generalized osteoarthrosis, involving multiple sites 715.09 and Hx of renal cell cancer V10.52 [facility] [address] [id number] [address] [place] [id number] Dec, [facility] [address] [facility]] [id number] [address] [place] [id number] Dec, [facility] [address] [id number] [address] [place] [id number] November, [facility] [address] [id number] [address] [place] [id number] Oct, [facility] [address] [id number] [address] [place] [phone] Oct, [facility] [address] [id number] [address] [place] [id number] Sep, [facility] [address] [id number] [address] [place] [phone] Sep, [facility] [address] [id number] [address] [place] [phone] Sep, [facility] [address] [id number] [address] [place] [phone] Sep, [facility] [address] [id number] [address] [place] [id number] Aug, [facility] [address] [id number] [address] [place] [id number] Aug, IMMUNIZATIONS No Known Immunizations SOCIAL HISTORY Never Assessed REASON FOR VISIT valium 11/04/2017 PLAN OF CARE VITAL SIGNS MEDICATIONS Medication [...]
--- OUTSIDE RECORDS SUMMARY | 2020-02-08 07:20 | XMS REPORT ---
Author Author Emilee NO Organization [facility] Address [address] [place] [address] Care Team Providers Care Adjunct Psychology Faculty Member Name Role Phone [email or web address] Unavailable PROBLEMS Type Condition ICD9-CM Code ALV20-CJ Code Onset Dates Condition S tatus SNOMED Code Problem Mixed hyperlipidemia E78.2 Active 611942929 Problem Fatty liver K76.0 Active 59762756 7 Problem Obstructive sleep apnea G47.33 Active 31350794 Problem Allergic rhinitis, unspecified J30.9 Active 56329619 Problem Essential hypertension I10 Active 14471656 Problem History of renal cell cancer Z85.528 A ctive 406669772 Problem Prediabetes R73.09 Active 3185009 Problem Diastolic dysfunction I51.9 Active 8976613 Problem Body mass index (bmi) 50-59.9 , adult Z68.43 Active 821575521 Problem Paresthesia of both hands R20.2 Acti ve 069961479 Problem Habitual self-excoriation 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 Acti ve 514152394 Problem BMI 50.0-59.9, adult Z68.43 Active 636290793 Problem Restrictive lung disease J98.4 Activ e 51510693 Problem Splenic artery aneurysm I72.8 Active 15357039 Problem Liver mass R16.0 Active 748594528 Problem Generalized anxiety disorder F41.1 A ctive 86794619 Problem Major depressive disorder, recurrent episode, mild degree F33.0 Active 800016748 Problem Excoriation, neurotic L98.1 Active 51221372 Problem History of tobacco use Z87.891 Active 0822494551681 Problem Primary osteoarthritis involving multiple joints M 15.0 Active 019587880 Problem Isolated proteinuria without specific morphologic lesion R80.0 Active 00638438 Problem 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 Active 118192569 Problem Pulmonary emphysema, unspecified emphysema type J4 3.9 Active 53168890 Problem Chronic prescription opiate use Z79.899 Active 564949937 Problem Tobacco use Z72.0 Active 40362638 0 Problem Bilateral carpal tunnel syndrome G56.03 Active 20087682 Problem Chronic prescription benzodiazepine use Z79.899 Active 694866482 ALLERGIES No Information ENCOUNTERS Encounter Location Date Diagnosis [facility] [address] [facility] [id number] [address] [place] [id number] Feb, [facility] [address] [facility] [id number] [address] [place] [id number] Feb, [facility] [address] [facility] [id number] [address] [place] [phone] Feb, [facility] [address] [facility] [id number] [address] [place] [address] [id number] Jan, [facility] [address] [place] [id number] [address] [place] [address] Jan, Generalized anxiety disorder F41.1 and Major depressive disorder, recurrent episode, mild degree F33.0 [facility] [address] [place] [id number] [address] [place] [phone] Jan, [facility] [address] [address] Jan, Generalized anxiety disorder F41.1 [facility] [address] [facility] [id number] [address] [place] [address] Jan, Oral abscess K12.2 and BMI 5 0.0-59.9, adult Z68.43 [facility] [address] [place] [id number] [address] [place] [address] Dec, BMI 50.0-59.9, adult Z68.43 and Weight loss counseling, encounter for Z71.3 [facility] [address] [place] [id number] [address] [place] [id number] Dec, [facility] [address] [place] [id number] [address] [place] [phone] Dec, [facility] [address] [place] [id number] [address] [place] [address] November, [facility] [address] [address] November, [facility] [address] [address] November, Pulmonary emphysema, unspeci fied emphysema type J43.9 ; Restrictive lung disease J98.4 ; BMI 50.0-59.9, adult Z68.43 ; History of renal cell cancer Z85.528 ; Essential hypertension I10 ; Mixed hyperlipidemia E78.2 and Fatty liver K76.0 [place] [address] [address] November, Generalized anxiety disorder F41.1 [place] [address] [address] November, Generalized anxiety disorder F41.1 and Major depressive disorder, recurrent episode, mild degree F33.0 [place] [address] [address] November, Generalized anxiety disorder F41.1 ; Major depressive disorder, recurrent episode, mild degree F33.0 and Habitual self-excoriation F42.4 [place] [address] [place] [id number] [address] [place] [address] November, [place] [address] [place] [id number] [address] [place] [address] Oct, Generalized anxiety disorder F41.1 [place] [address] [place] [id number] [address] [place] [address] Oct, [place] [address] [address] Oct, Influenza-like illness R69 [place] [address] [place] [id number] [place] [address] Sep, Influenza-like illness R69 [place] [address] [address] Sep, Generalized anxiety disorder F41.1 [facility] [address] [facility] [id number] [address] [place] [phone] Sep, [facility] [address] [facility] [id number] [address] [place] [phone] Aug, [facility] [address] [place] [id number] [address] [place] [phone] Aug, [facility] [address] [place] [id number] [address] [place] [phone] Aug, Generalized anxiety disorder F41.1 [facility] [address] [place] [place] [id number] [address] [place] [address] Aug, Influenza-like illness R69 a nd BMI 50.0-59.9, adult Z68.43 [facility] [address] [place] [id number] [address] [place] [address] Jul, Fatty liver K76.0 ; Restrict jean-paul lung disease J98.4 ; Diastolic dysfunction I51.9 ; Body mass index (bmi) 50-59.9 , adult Z68.43 and Chronic prescription opiate use Z79.899 [facility] [address] [place] [id number] [address] [place] [address] Jul, Generalized anxiety disorder F41.1 [facility] [address] [place] [id number] [address] [place] [id number] Jul, Generalized anxiety disorder F41.1 [facility] [address] [place] [id number] [address] [place] [address] Jul, Primary osteoarthritis invol ving multiple joints M15.0 [facility] [address] [place] [id number] [address] [place] [address] Jun, Generalized anxiety disorder F41.1 [facility] [address] [place] [id number] [address] [place] [address] Jun, [facility] [address] [place] [address] [address] [place] [address] Jun, Mixed hyperlipidemia E78.2 [facility] [address] [facility] [id number] [address] [place] [address] Jun, Generalized anxiety disorder F41.1 [facility] [address] [facility] [id number] [address] [place] [address] Jun, Generalized anxiety disorder F41.1 ; Major depressive disorder, recurrent episode, mild degree F33.0 and Habitual self-excoriation F42.4 [facility] [address] [facility] [id number] [address] [place] [address] May, [facility] [address] [facility] [id number] [address] [place] [phone] May, Generalized anxiety disorder F41.1 [facility] [address] [facility] [id number] [address] [place] [address] May, Generalized anxiety disorder F41.1 [facility] [address] [facility] [id number] [address] [place] [address] May, Primary osteoarthritis invol ving multiple joints M15.0 [facility] [address] [facility] [id number] [address] [place] [address] Apr, Major depressive disorder, r ecurrent episode, mild degree F33.0 ; Generalized anxiety disorder F41.1 and Excoriation, neurotic L98.1 [facility] [address] [facility] [id number] [address] [place] [address] Apr, Primary osteoarthritis invol ving multiple joints M15.0 [facility] [address] [facility] [id number] [address] [place] [phone] Apr, Essential hypertension I10 a nd Mixed hyperlipidemia E78.2 [facility] [address] [facility] [id number] [address] [place] [id number] Apr, Generalized anxiety disorder F41.1 ; Major depressive disorder, recurrent episode, mild degree F33.0 and Habitual self-excoriation F42.4 [facility] [address] [id number] [address] [place] [id number] 06 Mar, 2017 Generalized anxiety disorder F41.1 ; Major depressive disorder, recurrent episode, mild degree F33.0 and Habitual self-excoriation F42.4 [facility] [address] [id number] [address] [place] [address] Mar, Skin lesion L98.9 [facility] [address] [id number] [address] [place] [address] Mar, Primary osteoarthritis invol ving multiple joints M15.0 [facility] [address] [id number] [address] [place] [address] Mar, [facility] [address] [id number] [address] [place] [address] Mar, [facility] [address] [id number] [address] [place] [address] Feb, Major depressive disorder, r ecurrent episode, mild degree F33.0 ; Generalized anxiety disorder F41.1 and Excoriation, neurotic L98.1 [facility] [address] [id number] [address] [place] [id number] Feb, Generalized anxiety disorder F41.1 [facility] [address] [id number] [address] [place] [id number] Feb, Primary osteoarthritis invol ving multiple joints M15.0 [facility] [address] [id number] [address] [place] [address] Jan, [facility] [address] [id number] [address] [place] [address] Jan, Essential hypertension I10 ; Splenic artery aneurysm I72.8 ; Liver mass R16.0 ; Restrictive lung disease J98.4 ; Primary osteoarthritis involving multiple joints M15.0 ; Mixed hyperlipidemia E78.2 ; Bilateral carpal tunnel syndrome G56.03 ; Body mass index (bmi) 50-59.9 , adult Z68.43 and History of tobacco use Z87.891 [facility] [address] [id number] [address] [place] [phone] Jan, Major depressive disorder, r ecurrent episode, mild degree F33.0 and Generalized anxiety disorder F41.1 [facility] [address] [id number] [address] [place] [address] Jan, [facility] [address] [id number] [address] [place] [address] Jan, Generalized anxiety disorder F41.1 and Major depressive disorder, recurrent episode, mild degree F33.0 [facility] [address] [id number] [address] [place] [id number] Dec, Primary osteoarthritis invol ving multiple joints M15.0 [facility] [address] [id number] [address] [place] [phone] Dec, Generalized anxiety disorder F41.1 [facility] [address] [id number] [address] [place] [address] Dec, [facility] [address] [id number] [address] [place] [address] Dec, Major depressive disorder, r ecurrent episode, mild degree F33.0 and Generalized anxiety disorder F41.1 [facility] [address] [id number] [address] [place] [phone] Dec, Generalized anxiety disorder F41.1 and Major depressive disorder, recurrent episode, mild degree F33.0 [facility] [address] [id number] [address] [place] [address] November, Mild major depression F32.0 and Primary osteoarthritis involving multiple joints M15.0 [facility] [address] [id number] [address] [place] [address] November, Major depressive disorder, r ecurrent episode, mild degree F33.0 and Generalized anxiety disorder F41.1 [facility] [address] [id number] [address] [place] [address] November, Primary osteoarthritis invol ving multiple joints M15.0 ; Essential hypertension I10 ; Prediabetes R73.09 ; Mixed hyperlipidemia E78.2 ; Chronic prescription benzodiazepine use Z79.899 ; Chronic prescription opiate use Z79.899 ; Tobacco use Z72.0 ; Bilateral carpal tunnel syndrome G56.03 and Body mass index (bmi) 50-59.9 , adult Z68.43 [place] [id number] [place] [id number] [place] [address] November, Primary osteoarthritis invol ving multiple joints M15.0 and Mild major depression F32.0 [facility] [address] [place] [id number] [address] [place] [address] Oct, [place] [address] [address] Oct, Primary osteoarthritis invol ving multiple joints M15.0 ; Essential hypertension I10 ; Prediabetes R73.09 ; Chronic prescription benzodiazepine use Z79.899 ; Chronic prescription opiate use Z79.899 ; Tobacco use Z72.0 ; Mixed hyperlipidemia E78.2 ; Bilateral carpal tunnel syndrome G56.03 ; Body mass index (bmi) 50-59.9 , adult Z68.43 and Encounter for immunization Z23 [place] [address] [place] [id number] [place] [id number] Oct, Major depressive disorder, r ecurrent episode, mild degree F33.0 and Generalized anxiety disorder F41.1 [place] [id number] [place] [address] Oct, [facility] [address] [place] [id number] [address] [place] [address] Oct, [facility] [address] [place] [id number] [address] [place] [phone] Sep, Mild major depression F32.0 [facility] [address] [place] [id number] [address] [place] [id number] Sep, [facility] [address] [place] [address] Sep, Mild major depression F32.0 and Generalized anxiety disorder F41.1 [place] [address] [place] [id number] Sep, Paresthesia of both hands R2 0.2 and Cervical radiculopathy M54.12 [place] [address] [address] Sep, [place] [address] [address] Sep, [place] [address] [address] Aug, Paresthesia of both hands R2 0.2 and Neck pain M54.2 [place] [address] [address] Aug, [place] [address] [address] Jul, Neck pain M54.2 and Paresthe eddie of both hands R20.2 [place] [address] [address] Jul, Proteinuria, unspecified typ e R80.9 [place] [address] [address] Jul, Proteinuria, unspecified typ e R80.9 [place] [address] [address] Jul, [place] [address] [address] Jul, Other specified transient ce rebral ischemias G45.8 [place] [address] [address] Jun, Diastolic dysfunction I51.9 [place] [address] [address] 08 Jun, 2016 Diastolic dysfunction I51.9 [facility] [address] [place] [id number] [address] [place] [address] Jun, Major depressive disorder, s david episode, unspecified F32.9 and Anxiety disorder, unspecified F41.9 [facility] [address] [place] [id number] [address] [place] [address] Jun, [facility] [address] [place] [id number] [place] [address] Jun, [facility] [address] [place] [id number] [place] [address] May, Moderate major depression F3 2.1 and Generalized anxiety disorder F41.1 [place] [address] [place] [id number] [place] [address] 16 May, 2016 Major depressive disorder, s david episode, unspecified F32.9 and Anxiety disorder, unspecified F41.9 [facility] [address] [place] [address] 15 May, 2016 [place] [address] [address] 14 May, 2016 Liver enzyme elevation R74.8 [place] [address] [address] 14 May, 2016 Liver enzyme elevation R74.8 [facility] [address] [address] 10 May, 2016 Shortness of breath on exert ion R06.02 ; Essential hypertension I10 ; Mixed hyperlipidemia E78.2 and Tobacco use Z72.0 [facility] [address] [address] 03 May, 2016 [facility] [address] [place] [id number] [address] [place] [address] 02 May, 2016 [facility] [address] [address] Apr, Anxiety F41.9 and Depression F32.9 [facility] [address] [id number] [address] [place] [address] Apr, [facility] [address] [id number] [address] [place] [address] Apr, [facility] [address] [id number] [address] [place] [address] Mar, Depression F32.9 and Anxiety F41.9 [facility] [address] [id number] [address] [place] [phone] 08 Mar, 2016 Anxiety F41.9 and Depression F32.9 [facility] [address] [id number] [address] [place] [address] Mar, Well woman exam (no gynecolo gical exam) Z00.00 [facility] [address] [id number] [address] [place] [address] Mar, [facility] [address] [id number] [address] [place] [address] Mar, [facility] [address] [id number] [address] [place] [id number] Feb, Dental caries K02.9 [facility] [address] [id number] [address] [place] [address] Feb, [facility] [address] [id number] [address] [place] [address] Feb, Anxiety F41.9 and Depression F32.9 [facility] [address] [id number] [address] [place] [address] [id number] Feb, Dental examination Z01.20 [facility] [address] [id number] [address] [place] [phone] Feb, [facility] [address] [id number] [address] [place] [address] Feb, [facility] [address] [id number] [address] [place] [address] Feb, Anxiety F41.9 and Depression F32.9 [facility] [address] [id number] [address] [place] [address] Jan, Severe episode of recurrent major depressive disorder, without psychotic features F33.2 and Anxiety disorder, unspecified F41.9 [facility] [address] [id number] [address] [place] [address] Jan, [facility] [address] [id number] [address] [place] [address] Dec, [facility] [address] [id number] [address] [place] [address] Dec, Anxiety F41.9 and Depression F32.9 [place] [address] [id number] [address] [place] [address] Dec, Other specified transient ce rebral ischemias G45.8 and Nocturnal hypoxia G47.34 [place] [address] [id number] [address] [place] [address] Dec, [facility] [address] [id number] [address] [place] [phone] Dec, Other specified transient ce rebral ischemias G45.8 [facility] [address] [id number] [address] [place] [address] 16 Dec, 2015 Severe episode of recurrent major depressive disorder, without psychotic features F33.2 and Anxiety disorder, unspecified F41.9 [facility] [address] [id number] [address] [place] [address] Dec, [facility] [address] [id number] [address] [place] [address] Dec, Anxiety F41.9 and Depression F32.9 [facility] [address] [id number] [address] [place] [phone] Dec, Anxiety F41.9 and Depression F32.9 [place] [address] [place] [id number] [place] [id number] Dec, [place] [address] [place] [id number] [place] [address] November, Anxiety F41.9 and Depression F32.9 [place] [address] [place] [id number] [place] [address] November, Severe episode of recurrent major depressive disorder, without psychotic features F33.2 [place] [address] [place] [id number] [place] [address] November, Mixed hyperlipidemia E78.2 [place] [address] [place] [id number] [place] [address] November, Anxiety F41.9 and Depression F32.9 [place] [address] [address] November, Prediabetes R73.09 ; Essenti al hypertension I10 ; Anxiety F41.9 ; Depression F32.9 ; Gastroesophageal reflux disease, esophagitis presence not specified K21.9 ; Primary osteoarthritis involving multiple joints M15.0 ; History of renal cell cancer Z85.528 ; Postnasal drip R09.82 ; Allergic rhinitis, unspecified J30.9 and Tobacco use Z72.0 [place] [address] [place] [id number] [place] [address] Oct, Anxiety F41.9 and Depression F32.9 [place] [address] [place] [id number] [address] [place] [address] Oct, [place] [address] [place] [id number] [place] [address] Oct, [place] [address] [place] [id number] [address] [place] [address] 14 Sep, 2015 Splenic artery aneurysm I72. 8 [place] [address] [place] [place] [id number] [place] [phone] Sep, Depression F32.9 ; Anxiety F 41.9 ; Chronic prescription benzodiazepine use Z79.899 and Splenic artery aneurysm I72.8 [facility] [address] [id number] 10 Sep, 2015 Depression F32.9 and Anxiety F41.9 [facility] [address] [place] [id number] [place] [id number] Sep, [facility] [address] [id number] Aug, Dehydration E86.0 ; Diarrhea R19.7 ; Nausea R11.0 and Generalized abdominal pain R10.84 [facility] [address] [place] [id number] [place] [phone] Aug, [facility] [address] [id number] Jul, Depression F32.9 [facility] [address] [place] [id number] [place] [phone] Jul, [facility] [address] [id number] [place] [phone] Jul, Anxiety F41.9 and Depression F32.9 [facility] [address] [place] [id number] [place] [id number] Jul, [facility] [address] [place] [id number] [place] [phone] Jun, Epigastric pain R10.13 [facility] [address] [place] [id number] [place] [phone] Jun, [facility] [id number] [place] [phone] Jun, [facility] [address] [id number] [address] [place] [phone] May, [facility] [id number] [place] [phone] May, [facility] [address] [id number] [address] [place] [phone] Apr, [facility] [address] [facility] [id number] [address] [place] [phone] Mar, Anxiety state, unspecified 3 00.00 ; Depression 311 ; Prediabetes 790.29 ; Generalized osteoarthrosis, involving multiple sites 715.09 and Hypertension 401.9 [facility] [address] [id number] [address] [place] [phone] Mar, [facility] [address] [id number] [address] [place] [phone] Feb, [facility] [address] [facility] [id number] [address] [place] [phone] Jan, [facility] [address] [facility] [id number] [address] [place] [phone] Jan, [facility] [address] [facility] [id number] [address] [place] [phone] Jan, Generalized osteoarthrosis, involving multiple sites 715.09 [facility] [address] [facility] [id number] [address] [place] [phone] Jan, Hx of renal cell cancer V10. 52 [facility] [address] [facility] [id number] [address] [place] [phone] Dec, Generalized osteoarthrosis, involving multiple sites 715.09 and Hx of renal cell cancer V10.52 [facility] [address] [id number] [address] [place] [phone] Dec, [facility] [address] [facility] [id number] [address] [place] [phone] Dec, [facility] [address] [facility] [id number] [address] [place] [phone] November, [facility] [address] [facility] [id number] [address] [place] [phone] Oct, [facility] [address] [id number] [address] [place] [phone] Oct, [facility] [address] [id number] [address] [place] [phone] Sep, [facility] [address] [id number] [address] [place] [phone] Sep, [facility] [address] [id number] [address] [place] [phone] Sep, [facility] [address] [id number] [address] [place] [phone] Sep, [facility] [address] [id number] [address] [place] [id number] Aug, [facility] [address] [facility] [id number] [address] [place] [phone] Aug, IMMUNIZATIONS No Known Immunizations SOCIAL HISTORY [...]
--- OUTSIDE RECORDS SUMMARY | 2020-02-08 07:20 | XMS REPORT ---
Author Author Emilee MAY Organization [facility] Address [address] [place] [address] Care Team Providers Care All Around Patternmaker Name Role Phone LALOJEZALBANIA Unavailable PROBLEMS Type Condition ICD9-CM Code DMX90-GU Code Onset Dates Condition S tatus SNOMED Code Problem Mixed hyperlipidemia E78.2 Active 502014409 Problem Fatty liver K76.0 Active 53921997 7 Problem Obstructive sleep apnea G47.33 Active 27625054 Problem Allergic rhinitis, unspecified J30.9 Active 44352938 Problem Essential hypertension I10 Active 91575805 Problem History of renal cell cancer Z85.528 A ctive 826508921 Problem Prediabetes R73.09 Active 1177519 Problem Diastolic dysfunction I51.9 Active 7008193 Problem Body mass index (bmi) 50-59.9 , adult Z68.43 Active 452411738 Problem Paresthesia of both hands R20.2 Acti ve 831556728 Problem Habitual self-excoriation 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 Acti ve 636773210 Problem BMI 50.0-59.9, adult Z68.43 Active 855043835 Problem Restrictive lung disease J98.4 Activ e 10788283 Problem Splenic artery aneurysm I72.8 Active 54456262 Problem Liver mass R16.0 Active 186819427 Problem Generalized anxiety disorder F41.1 A ctive 49616167 Problem Major depressive disorder, recurrent episode, mild degree F33.0 Active 314273815 Problem Excoriation, neurotic L98.1 Active 01966612 Problem History of tobacco use Z87.891 Active 7682484261705 Problem Primary osteoarthritis involving multiple joints M 15.0 Active 918355127 Problem Isolated proteinuria without specific morphologic lesion R80.0 Active 58356856 Problem 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 Active 422865820 Problem Pulmonary emphysema, unspecified emphysema type J4 3.9 Active 36469392 Problem Chronic prescription opiate use Z79.899 Active 250661636 Problem Tobacco use Z72.0 Active 26996081 0 Problem Bilateral carpal tunnel syndrome G56.03 Active 10483922 Problem Chronic prescription benzodiazepine use Z79.899 Active 093698205 ALLERGIES No Information ENCOUNTERS Encounter Location Date Diagnosis [facility] [address] [facility] [id number] [address] [place] [address] Feb, [facility] [address] [facility] [id number] [address] [place] [address] Feb, [facility] [address] [place] [id number] [address] [place] [phone] Feb, [facility] [address] [facility] [id number] [address] [place] [address] [id number] Jan, [facility] [address] [address] Jan, Generalized anxiety disorder F41.1 and Major depressive disorder, recurrent episode, mild degree F33.0 [facility] [address] [place] [id number] [address] [place] [address] Jan, [facility] [address] [address] Jan, Generalized anxiety disorder F41.1 [facility] [address] [facility] [id number] [address] [place] [address] Jan, Oral abscess K12.2 and BMI 5 0.0-59.9, adult Z68.43 [facility] [address] [place] [address] Dec, BMI 50.0-59.9, adult Z68.43 and Weight loss counseling, encounter for Z71.3 [facility] [address] [place] [id number] [address] [place] [phone] Dec, [facility] [address] [place] [id number] [address] [place] [address] Dec, [facility] [address] [place] [id number] [address] [place] [address] November, [facility] [address] [place] [id number] [address] [place] [address] November, [facility] [address] [address] November, Pulmonary emphysema, unspeci fied emphysema type J43.9 ; Restrictive lung disease J98.4 ; BMI 50.0-59.9, adult Z68.43 ; History of renal cell cancer Z85.528 ; Essential hypertension I10 ; Mixed hyperlipidemia E78.2 and Fatty liver K76.0 [place] [address] [place] [id number] [address] [place] [address] November, Generalized anxiety disorder F41.1 [place] [address] [address] November, Generalized anxiety disorder F41.1 and Major depressive disorder, recurrent episode, mild degree F33.0 [place] [address] [place] [id number] [address] [place] [address] November, Generalized anxiety disorder F41.1 ; Major depressive disorder, recurrent episode, mild degree F33.0 and Habitual self-excoriation F42.4 [place] [address] [place] [id number] [address] [place] [address] November, [place] [address] [place] [id number] [address] [place] [address] Oct, Generalized anxiety disorder F41.1 [place] [address] [place] [id number] [address] [place] [address] Oct, [place] [address] [address] Oct, Influenza-like illness R69 [place] [address] [place] [id number] [address] [place] [address] Sep, Influenza-like illness R69 [place] [address] [place] [id number] [address] [place] [address] Sep, Generalized anxiety disorder F41.1 [facility] [address] [place] [id number] [address] [place] [address] Sep, [facility] [address] [place] [id number] [address] [place] [phone] Aug, [facility] [address] [place] [address] Aug, [facility] [address] [place] [id number] [address] [place] [address] Aug, Generalized anxiety disorder F41.1 [facility] [address] [place] [id number] [address] [place] [address] Aug, Influenza-like illness R69 a nd BMI 50.0-59.9, adult Z68.43 [facility] [address] [place] [id number] [address] [place] [address] Jul, Fatty liver K76.0 ; Restrict jean-paul lung disease J98.4 ; Diastolic dysfunction I51.9 ; Body mass index (bmi) 50-59.9 , adult Z68.43 and Chronic prescription opiate use Z79.899 [facility] [address] [place] [id number] [address] [place] [address] Jul, Generalized anxiety disorder F41.1 [facility] [address] [place] [address] Jul, Generalized anxiety disorder F41.1 [facility] [address] [place] [id number] [address] [place] [address] Jul, Primary osteoarthritis invol ving multiple joints M15.0 [facility] [address] [place] [id number] [address] [place] [address] Jun, Generalized anxiety disorder F41.1 [facility] [address] [place] [id number] [address] [place] [address] Jun, [facility] [address] [place] [address] Jun, Mixed hyperlipidemia E78.2 [facility] [address] [facility] [id number] [address] [place] [address] Jun, Generalized anxiety disorder F41.1 [facility] [address] [facility] [id number] [address] [place] [address] Jun, Generalized anxiety disorder F41.1 ; Major depressive disorder, recurrent episode, mild degree F33.0 and Habitual self-excoriation F42.4 [facility] [address] [facility] [id number] [address] [place] [address] May, [facility] [address] [facility] [id number] [address] [place] [address] May, Generalized anxiety disorder F41.1 [facility] [address] [facility] [id number] [address] [place] [address] May, Generalized anxiety disorder F41.1 [facility] [address] [facility] [id number] [address] [place] [address] May, Primary osteoarthritis invol ving multiple joints M15.0 [facility] [address] [facility] [id number] [address] [place] [address] Apr, Major depressive disorder, r ecurrent episode, mild degree F33.0 ; Generalized anxiety disorder F41.1 and Excoriation, neurotic L98.1 [facility] [address] [facility] [id number] [address] [place] [address] Apr, Primary osteoarthritis invol ving multiple joints M15.0 [facility] [address] [facility] [id number] [address] [place] [address] Apr, Essential hypertension I10 a nd Mixed hyperlipidemia E78.2 [facility] [address] [facility] [id number] [address] [place] [address] Apr, Generalized anxiety disorder F41.1 ; Major depressive disorder, recurrent episode, mild degree F33.0 and Habitual self-excoriation F42.4 [facility] [address] [id number] [address] [place] [address] 06 Mar, 2017 Generalized anxiety disorder F41.1 ; Major depressive disorder, recurrent episode, mild degree F33.0 and Habitual self-excoriation F42.4 [facility] [address] [id number] [address] [place] [address] Mar, Skin lesion L98.9 [facility] [address] [id number] [address] [place] [address] 05 Mar, 2017 Primary osteoarthritis invol ving multiple joints M15.0 [facility] [address] [id number] [address] [place] [address] Mar, [facility] [address] [id number] [address] [place] [address] Mar, [place] [address] [id number] [address] [place] [address] Feb, Major depressive disorder, r ecurrent episode, mild degree F33.0 ; Generalized anxiety disorder F41.1 and Excoriation, neurotic L98.1 [facility] [address] [id number] [address] [place] [address] Feb, Generalized anxiety disorder F41.1 [place] [address] [id number] [address] [place] [address] Feb, Primary osteoarthritis invol ving multiple joints M15.0 [facility] [address] [id number] [address] [place] [address] Jan, [facility] [address] [facility] [id number] [address] [place] [address] Jan, Essential hypertension I10 ; Splenic artery aneurysm I72.8 ; Liver mass R16.0 ; Restrictive lung disease J98.4 ; Primary osteoarthritis involving multiple joints M15.0 ; Mixed hyperlipidemia E78.2 ; Bilateral carpal tunnel syndrome G56.03 ; Body mass index (bmi) 50-59.9 , adult Z68.43 and History of tobacco use Z87.891 [facility] [address] [id number] [address] [place] [address] Jan, Major depressive disorder, r ecurrent episode, mild degree F33.0 and Generalized anxiety disorder F41.1 [facility] [address] [id number] [address] [place] [address] Jan, [facility] [address] [id number] [address] [place] [address] Jan, Generalized anxiety disorder F41.1 and Major depressive disorder, recurrent episode, mild degree F33.0 [facility] [address] [id number] [address] [place] [address] Dec, Primary osteoarthritis invol ving multiple joints M15.0 [facility] [address] [id number] [address] [place] [address] Dec, Generalized anxiety disorder F41.1 [facility] [address] [id number] [address] [place] [address] Dec, [facility] [address] [id number] [address] [place] [address] Dec, Major depressive disorder, r ecurrent episode, mild degree F33.0 and Generalized anxiety disorder F41.1 [facility] [address] [id number] [address] [place] [address] Dec, Generalized anxiety disorder F41.1 and Major depressive disorder, recurrent episode, mild degree F33.0 [facility] [address] [id number] [address] [place] [address] November, Mild major depression F32.0 and Primary osteoarthritis involving multiple joints M15.0 [facility] [address] [id number] [address] [place] [address] November, Major depressive disorder, r ecurrent episode, mild degree F33.0 and Generalized anxiety disorder F41.1 [facility] [address] [id number] [address] [place] [address] November, Primary osteoarthritis invol ving multiple joints M15.0 ; Essential hypertension I10 ; Prediabetes R73.09 ; Mixed hyperlipidemia E78.2 ; Chronic prescription benzodiazepine use Z79.899 ; Chronic prescription opiate use Z79.899 ; Tobacco use Z72.0 ; Bilateral carpal tunnel syndrome G56.03 and Body mass index (bmi) 50-59.9 , adult Z68.43 [place] [address] [address] November, Primary osteoarthritis invol ving multiple joints M15.0 and Mild major depression F32.0 [facility] [address] [place] [id number] [address] [place] [address] Oct, [place] [address] [address] Oct, Primary osteoarthritis invol ving multiple joints M15.0 ; Essential hypertension I10 ; Prediabetes R73.09 ; Chronic prescription benzodiazepine use Z79.899 ; Chronic prescription opiate use Z79.899 ; Tobacco use Z72.0 ; Mixed hyperlipidemia E78.2 ; Bilateral carpal tunnel syndrome G56.03 ; Body mass index (bmi) 50-59.9 , adult Z68.43 and Encounter for immunization Z23 [place] [address] [place] [id number] [address] [place] [address] Oct, Major depressive disorder, r ecurrent episode, mild degree F33.0 and Generalized anxiety disorder F41.1 [place] [address] [place] [address] Oct, [facility] [address] [place] [id number] [address] [place] [phone] Oct, [facility] [address] [place] [id number] [address] [place] [address] Sep, Mild major depression F32.0 [facility] [address] [place] [id number] [address] [place] [address] Sep, [facility] [address] [place] [id number] [address] [place] [address] Sep, Mild major depression F32.0 and Generalized anxiety disorder F41.1 [place] [address] [place] [address] Sep, Paresthesia of both hands R2 0.2 and Cervical radiculopathy M54.12 [place] [address] [address] Sep, [place] [address] [address] Sep, [place] [address] [address] Aug, Paresthesia of both hands R2 0.2 and Neck pain M54.2 [place] [address] [address] Aug, [place] [address] [address] Jul, Neck pain M54.2 and Paresthe eddie of both hands R20.2 [place] [address] [address] Jul, Proteinuria, unspecified typ e R80.9 [place] [address] [address] Jul, Proteinuria, unspecified typ e R80.9 [place] [address] [address] Jul, [place] [address] [address] Jul, Other specified transient ce rebral ischemias G45.8 [place] [address] [place] [id number] [place] [address] Jun, Diastolic dysfunction I51.9 [place] [address] [address] Jun, Diastolic dysfunction I51.9 [facility] [address] [place] [id number] [address] [place] [address] Jun, Major depressive disorder, s david episode, unspecified F32.9 and Anxiety disorder, unspecified F41.9 [facility] [address] [address] Jun, [facility] [address] [address] Jun, [facility] [address] [address] May, Moderate major depression F3 2.1 and Generalized anxiety disorder F41.1 [place] [address] [place] [id number] [place] [address] 16 May, 2016 Major depressive disorder, s david episode, unspecified F32.9 and Anxiety disorder, unspecified F41.9 [place] [address] [address] 15 May, 2016 [place] [address] [address] 14 May, 2016 Liver enzyme elevation R74.8 [place] [address] [address] 14 May, 2016 Liver enzyme elevation R74.8 [place] [address] [address] 10 May, 2016 Shortness of breath on exert ion R06.02 ; Essential hypertension I10 ; Mixed hyperlipidemia E78.2 and Tobacco use Z72.0 [place] [address] [address] 03 May, 2016 [facility] [address] [place] [id number] [address] [place] [address] 02 May, 2016 [place] [address] [address] Apr, Anxiety F41.9 and Depression F32.9 [facility] [address] [id number] [address] [place] [address] Apr, [facility] [address] [id number] [address] [place] [address] Apr, [facility] [address] [id number] [address] [place] [address] Mar, Depression F32.9 and Anxiety F41.9 [facility] [address] [id number] [address] [place] [address] 08 Mar, 2016 Anxiety F41.9 and Depression F32.9 [facility] [address] [id number] [address] [place] [address] Mar, Well woman exam (no gynecolo gical exam) Z00.00 [facility] [address] [id number] [address] [place] [address] Mar, [facility] [address] [id number] [address] [place] [address] Mar, [facility] [address] [id number] [address] [place] [id number] Feb, Dental caries K02.9 [facility] [address] [id number] [address] [place] [address] Feb, [facility] [address] [id number] [address] [place] [address] Feb, Anxiety F41.9 and Depression F32.9 [facility] [address] [id number] [address] [place] [address] [id number] Feb, Dental examination Z01.20 [facility] [address] [id number] [address] [place] [address] Feb, [facility] [address] [id number] [address] [place] [address] Feb, [facility] [address] [id number] [address] [place] [address] Feb, Anxiety F41.9 and Depression F32.9 [facility] [address] [id number] [address] [place] [address] Jan, Severe episode of recurrent major depressive disorder, without psychotic features F33.2 and Anxiety disorder, unspecified F41.9 [facility] [address] [id number] [address] [place] [address] Jan, [facility] [address] [id number] [address] [place] [address] Dec, [facility] [address] [id number] [address] [place] [address] Dec, Anxiety F41.9 and Depression F32.9 [place] [address] [id number] [address] [place] [address] Dec, Other specified transient ce rebral ischemias G45.8 and Nocturnal hypoxia G47.34 [facility] [address] [id number] [address] [place] [address] Dec, [facility] [address] [id number] [address] [place] [address] Dec, Other specified transient ce rebral ischemias G45.8 [facility] [address] [id number] [address] [place] [address] 16 Dec, 2015 Severe episode of recurrent major depressive disorder, without psychotic features F33.2 and Anxiety disorder, unspecified F41.9 [facility] [address] [id number] [address] [place] [address] Dec, [facility] [address] [id number] [address] [place] [address] Dec, Anxiety F41.9 and Depression F32.9 [facility] [address] [id number] [address] [place] [address] Dec, Anxiety F41.9 and Depression F32.9 [place] [id number] [facility] [id number] [address] [place] [address] Dec, [place] [address] [facility] [id number] [address] [place] [address] November, Anxiety F41.9 and Depression F32.9 [place] [address] [facility] [id number] [address] [place] [address] November, Severe episode of recurrent major depressive disorder, without psychotic features F33.2 [place] [address] [facility] [id number] [address] [place] [address] November, Mixed hyperlipidemia E78.2 [place] [address] [facility] [id number] [address] [place] [address] November, Anxiety F41.9 and Depression F32.9 [place] [address] [place] [id number] [address] [place] [address] November, Prediabetes R73.09 ; Essenti al hypertension I10 ; Anxiety F41.9 ; Depression F32.9 ; Gastroesophageal reflux disease, esophagitis presence not specified K21.9 ; Primary osteoarthritis involving multiple joints M15.0 ; History of renal cell cancer Z85.528 ; Postnasal drip R09.82 ; Allergic rhinitis, unspecified J30.9 and Tobacco use Z72.0 [place] [address] [place] [id number] [address] [place] [address] Oct, Anxiety F41.9 and Depression F32.9 [place] [address] [facility] [id number] [address] [place] [address] Oct, [place] [address] [facility] [id number] [address] [place] [address] Oct, [place] [address] [place] [id number] [address] [place] [address] 14 Sep, 2015 Splenic artery aneurysm I72. 8 [place] [address] [facility] [id number] [address] [place] [address] Sep, Depression F32.9 ; Anxiety F 41.9 ; Chronic prescription benzodiazepine use Z79.899 and Splenic artery aneurysm I72.8 [facility] [address] [address] 10 Sep, 2015 Depression F32.9 and Anxiety F41.9 [facility] [address] [address] Sep, [facility] [address] [address] Aug, Dehydration E86.0 ; Diarrhea R19.7 ; Nausea R11.0 and Generalized abdominal pain R10.84 [facility] [address] [address] Aug, [facility] [address] [id number] Jul, Depression F32.9 [facility] [address] [address] Jul, [facility] [address] [address] Jul, Anxiety F41.9 and Depression F32.9 [facility] [address] [place] [id number] [place] [id number] Jul, [facility] [address] [address] Jun, Epigastric pain R10.13 [facility] [address] [place] [id number] [address] [place] [id number] Jun, [facility] [address] [address] Jun, [facility] [address] [place] [id number] [address] [place] [id number] May, [facility] [address] [address] May, [facility] [address] [id number] [address] [place] [id number] Apr, [facility] [address] [id number] [address] [place] [id number] Mar, Anxiety state, unspecified 3 00.00 ; Depression 311 ; Prediabetes 790.29 ; Generalized osteoarthrosis, involving multiple sites 715.09 and Hypertension 401.9 [facility] [address] [id number] [address] [place] [phone] Mar, [facility] [address] [id number] [address] [place] [phone] Feb, [facility] [address] [facility] [id number] [address] [place] [phone] Jan, [facility] [address] [facility] [id number] [address] [place] [phone] Jan, [facility] [address] [facility] [id number] [address] [place] [phone] Jan, Generalized osteoarthrosis, involving multiple sites 715.09 [facility] [address] [id number] [address] [place] [phone] Jan, Hx of renal cell cancer V10. 52 [facility] [address] [id number] [address] [place] [phone] Dec, Generalized osteoarthrosis, involving multiple sites 715.09 and Hx of renal cell cancer V10.52 [facility] [address] [id number] [address] [place] [phone] Dec, [facility] [address] [facility] [id number] [address] [place] [phone] Dec, [facility] [address] [facility] [id number] [address] [place] [phone] November, [facility] [address] [facility] [id number] [address] [place] [phone] Oct, [facility] [address] [id number] [address] [place] [phone] Oct, [facility] [address] [id number] [address] [place] [phone] Sep, [facility] [address] [id number] [address] [place] [phone] Sep, [facility] [address] [id number] [address] [place] [phone] Sep, [facility] [address] [id number] [address] [place] [phone] Sep, [facility] [address] [id number] [address] [place] [phone] Aug, [facility] [address] [facility] [id number] [address] [place] [phone] Aug, IMMUNIZATIONS No Known Immunizations SOCIAL HISTORY Never Assessed REASON FOR VISIT Medication refill request PLAN OF CARE VITAL SIGNS MEDICATIONS Medication Instructions Dosage Frequency Start Date End Date Duration S tatus ProAir HFA 108 (90 Base) MCG/ACT Inhalation every 4 hrs 2 puffs as needed 4h Aug, 30 days Active RESULTS No Results PROCEDURES [...]
--- OUTSIDE RECORDS SUMMARY | 2020-02-08 07:20 | XMS REPORT ---
Author Author Emilee MAY Organization [facility] Address [address] [place] [address] Care Team Providers Care Utility Inspector Name Role Phone LALOJEZALBANIA Unavailable PROBLEMS Type Condition ICD9-CM Code BSV72-CE Code Onset Dates Condition S tatus SNOMED Code Problem Mixed hyperlipidemia E78.2 Active 600984645 Problem Fatty liver K76.0 Active 50652528 7 Problem Obstructive sleep apnea G47.33 Active 14875375 Problem Allergic rhinitis, unspecified J30.9 Active 12279949 Problem Essential hypertension I10 Active 69985372 Problem History of renal cell cancer Z85.528 A ctive 157434729 Problem Prediabetes R73.09 Active 3956530 Problem Diastolic dysfunction I51.9 Active 9580113 Problem Body mass index (bmi) 50-59.9 , adult Z68.43 Active 653042251 Problem Paresthesia of both hands R20.2 Acti ve 409301475 Problem Habitual self-excoriation 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 Acti ve 974538403 Problem BMI 50.0-59.9, adult Z68.43 Active 104655085 Problem Restrictive lung disease J98.4 Activ e 83312899 Problem Splenic artery aneurysm I72.8 Active 73285833 Problem Liver mass R16.0 Active 860421929 Problem Generalized anxiety disorder F41.1 A ctive 64376582 Problem Major depressive disorder, recurrent episode, mild degree F33.0 Active 627189839 Problem Excoriation, neurotic L98.1 Active 62330857 Problem History of tobacco use Z87.891 Active 9995364728624 Problem Primary osteoarthritis involving multiple joints M 15.0 Active 130200972 Problem Isolated proteinuria without specific morphologic lesion R80.0 Active 60663931 Problem 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 Active 969881544 Problem Pulmonary emphysema, unspecified emphysema type J4 3.9 Active 34383611 Problem Chronic prescription opiate use Z79.899 Active 470274315 Problem Tobacco use Z72.0 Active 93175679 0 Problem Bilateral carpal tunnel syndrome G56.03 Active 00902663 Problem Chronic prescription benzodiazepine use Z79.899 Active 601509127 ALLERGIES No Information ENCOUNTERS Encounter Location Date Diagnosis [facility] [id number] [address] [place] [address] Feb, [facility] [address] [address] Feb, [facility] [address] [address] Feb, [facility] [address] [address] Jan, Pulmonary emphysema, unspeci fied emphysema type J43.9 [facility] [id number] [place] [id number] Jan, Dental examination Z01.20 an d Dental caries K02.9 [facility] [id number] [address] [place] [address] Jan, Generalized anxiety disorder F41.1 and Major depressive disorder, recurrent episode, mild degree F33.0 [facility] [address] [id number] [address] [place] [address] Jan, [facility] [id number] [place] [address] Jan, Generalized anxiety disorder F41.1 [facility] [address] [place] [address] Jan, Oral abscess K12.2 and BMI 5 0.0-59.9, adult Z68.43 [facility] [id number] [place] [address] Dec, BMI 50.0-59.9, adult Z68.43 and Weight loss counseling, encounter for Z71.3 [facility] [address] [address] Dec, [facility] [address] [facility] [id number] [address] [place] [id number] Dec, [facility] [id number] [address] [place] [address] November, [facility] [id number] [place] [address] November, [facility] [id number] [place] [address] November, Pulmonary emphysema, unspeci fied emphysema type J43.9 ; Restrictive lung disease J98.4 ; BMI 50.0-59.9, adult Z68.43 ; History of renal cell cancer Z85.528 ; Essential hypertension I10 ; Mixed hyperlipidemia E78.2 and Fatty liver K76.0 [place] [id number] [place] [address] November, Generalized anxiety disorder F41.1 [facility] [id number] [place] [address] November, Generalized anxiety disorder F41.1 and Major depressive disorder, recurrent episode, mild degree F33.0 [place] [id number] [place] [address] November, Generalized anxiety disorder F41.1 ; Major depressive disorder, recurrent episode, mild degree F33.0 and Habitual self-excoriation F42.4 [facility] [address] [facility] [id number] [address] [place] [address] November, [facility] [address] [facility] [id number] [address] [place] [address] Oct, Generalized anxiety disorder F41.1 [facility] [id number] [place] [address] Oct, [facility] [id number] [place] [address] Oct, Influenza-like illness R69 [facility] [address] [place] [address] Sep, Influenza-like illness R69 [facility] [id number] [place] [address] Sep, Generalized anxiety disorder F41.1 [facility] [id number] [place] [address] Sep, [facility] [address] [address] Aug, [facility] [address] [address] Aug, [facility] [address] [address] Aug, Generalized anxiety disorder F41.1 [facility] [id number] [place] [address] Aug, Influenza-like illness R69 a nd BMI 50.0-59.9, adult Z68.43 [facility] [address] [address] Jul, Fatty liver K76.0 ; Restrict ejan-paul lung disease J98.4 ; Diastolic dysfunction I51.9 ; Body mass index (bmi) 50-59.9 , adult Z68.43 and Chronic prescription opiate use Z79.899 [facility] [id number] [place] [address] Jul, Generalized anxiety disorder F41.1 [facility] [id number] [place] [address] Jul, Generalized anxiety disorder F41.1 [facility] [address] [address] Jul, Primary osteoarthritis invol ving multiple joints M15.0 [facility] [id number] [place] [address] Jun, Generalized anxiety disorder F41.1 [facility] [address] [id number] [address] [place] [address] Jun, [facility] [address] [facility] [id number] [address] [place] [address] Jun, Mixed hyperlipidemia E78.2 [facility] [address] [facility] [id number] [address] [place] [address] Jun, Generalized anxiety disorder F41.1 [facility] [address] [id number] [address] [place] [address] Jun, Generalized anxiety disorder F41.1 ; Major depressive disorder, recurrent episode, mild degree F33.0 and Habitual self-excoriation F42.4 [facility] [address] [facility] [id number] [address] [place] [address] May, [facility] [address] [facility] [id number] [address] [place] [address] May, Generalized anxiety disorder F41.1 [facility] [address] [facility] [id number] [address] [place] [address] May, Generalized anxiety disorder F41.1 [facility] [address] [facility] [id number] [address] [place] [address] May, Primary osteoarthritis invol ving multiple joints M15.0 [facility] [address] [facility] [id number] [address] [place] [address] Apr, Major depressive disorder, r ecurrent episode, mild degree F33.0 ; Generalized anxiety disorder F41.1 and Excoriation, neurotic L98.1 [facility] [address] [facility] [id number] [address] [place] [address] Apr, Primary osteoarthritis invol ving multiple joints M15.0 [facility] [address] [facility] [id number] [address] [place] [address] Apr, Essential hypertension I10 a nd Mixed hyperlipidemia E78.2 [facility] [address] [id number] [address] [place] [address] Apr, Generalized anxiety disorder F41.1 ; Major depressive disorder, recurrent episode, mild degree F33.0 and Habitual self-excoriation F42.4 [facility] [address] [id number] [address] [place] [address] Mar, Generalized anxiety disorder F41.1 ; Major depressive disorder, recurrent episode, mild degree F33.0 and Habitual self-excoriation F42.4 [facility] [address] [id number] [address] [place] [address] Mar, Skin lesion L98.9 [facility] [address] [id number] [address] [place] [address] Mar, Primary osteoarthritis invol ving multiple joints M15.0 [facility] [address] [id number] [address] [place] [address] Mar, [facility] [address] [id number] [address] [place] [address] Mar, [facility] [address] [id number] [address] [place] [address] Feb, Major depressive disorder, r ecurrent episode, mild degree F33.0 ; Generalized anxiety disorder F41.1 and Excoriation, neurotic L98.1 [facility] [address] [id number] [address] [place] [address] Feb, Generalized anxiety disorder F41.1 [facility] [address] [id number] [address] [place] [address] Feb, Primary osteoarthritis invol ving multiple joints M15.0 [facility] [address] [id number] [address] [place] [address] Jan, [facility] [address] [id number] [address] [place] [address] Jan, Essential hypertension I10 ; Splenic artery aneurysm I72.8 ; Liver mass R16.0 ; Restrictive lung disease J98.4 ; Primary osteoarthritis involving multiple joints M15.0 ; Mixed hyperlipidemia E78.2 ; Bilateral carpal tunnel syndrome G56.03 ; Body mass index (bmi) 50-59.9 , adult Z68.43 and History of tobacco use Z87.891 [facility] [address] [id number] [address] [place] [address] Jan, Major depressive disorder, r ecurrent episode, mild degree F33.0 and Generalized anxiety disorder F41.1 [facility] [address] [id number] [address] [place] [address] Jan, [place] [address] [id number] [address] [place] [address] Jan, Generalized anxiety disorder F41.1 and Major depressive disorder, recurrent episode, mild degree F33.0 [place] [address] [id number] [address] [place] [address] Dec, Primary osteoarthritis invol ving multiple joints M15.0 [facility] [address] [id number] [address] [place] [address] Dec, Generalized anxiety disorder F41.1 [facility] [address] [id number] [address] [place] [address] Dec, [place] [address] [id number] [address] [place] [address] Dec, Major depressive disorder, r ecurrent episode, mild degree F33.0 and Generalized anxiety disorder F41.1 [facility] [address] [id number] [address] [place] [address] Dec, Generalized anxiety disorder F41.1 and Major depressive disorder, recurrent episode, mild degree F33.0 [facility] [address] [id number] [address] [place] [address] November, Mild major depression F32.0 and Primary osteoarthritis involving multiple joints M15.0 [facility] [address] [id number] [address] [place] [address] November, Major depressive disorder, r ecurrent episode, mild degree F33.0 and Generalized anxiety disorder F41.1 [place] [address] [address] November, Primary osteoarthritis invol ving multiple joints M15.0 ; Essential hypertension I10 ; Prediabetes R73.09 ; Mixed hyperlipidemia E78.2 ; Chronic prescription benzodiazepine use Z79.899 ; Chronic prescription opiate use Z79.899 ; Tobacco use Z72.0 ; Bilateral carpal tunnel syndrome G56.03 and Body mass index (bmi) 50-59.9 , adult Z68.43 [place] [address] [address] November, Primary osteoarthritis invol ving multiple joints M15.0 and Mild major depression F32.0 [place] [address] [address] Oct, [place] [address] [address] Oct, Primary osteoarthritis invol ving multiple joints M15.0 ; Essential hypertension I10 ; Prediabetes R73.09 ; Chronic prescription benzodiazepine use Z79.899 ; Chronic prescription opiate use Z79.899 ; Tobacco use Z72.0 ; Mixed hyperlipidemia E78.2 ; Bilateral carpal tunnel syndrome G56.03 ; Body mass index (bmi) 50-59.9 , adult Z68.43 and Encounter for immunization Z23 [place] [id number] [place] [address] Oct, Major depressive disorder, r ecurrent episode, mild degree F33.0 and Generalized anxiety disorder F41.1 [place] [address] [address] Oct, [place] [address] [address] Oct, [place] [address] [address] Sep, Mild major depression F32.0 [facility] [address] [facility] [id number] [address] [place] [address] Sep, [facility] [address] [facility] [id number] [address] [place] [address] Sep, Mild major depression F32.0 and Generalized anxiety disorder F41.1 [facility] [address] [facility] [id number] [address] [place] [address] Sep, Paresthesia of both hands R2 0.2 and Cervical radiculopathy M54.12 [facility] [address] [facility] [id number] [address] [place] [address] Sep, [facility] [address] [facility] [id number] [address] [place] [address] Sep, [facility] [id number] [place] [address] Aug, Paresthesia of both hands R2 0.2 and Neck pain M54.2 [facility] [address] [facility] [id number] [address] [place] [address] Aug, [facility] [address] [facility] [id number] [address] [place] [address] Jul, Neck pain M54.2 and Paresthe eddie of both hands R20.2 [facility] [address] [facility] [id number] [address] [place] [address] Jul, Proteinuria, unspecified typ e R80.9 [facility] [address] [facility] [id number] [address] [place] [address] Jul, Proteinuria, unspecified typ e R80.9 [facility] [address] [facility] [id number] [address] [place] [address] Jul, [facility] [address] [facility] [id number] [address] [place] [address] Jul, Other specified transient ce rebral ischemias G45.8 [place] [address] [facility] [id number] [address] [place] [address] 12 Jun, 2016 Diastolic dysfunction I51.9 [facility] [address] [facility] [id number] [address] [place] [address] 08 Jun, 2016 Diastolic dysfunction I51.9 [facility] [address] [facility] [id number] [address] [place] [address] 06 Jun, 2016 Major depressive disorder, s david episode, unspecified F32.9 and Anxiety disorder, unspecified F41.9 [facility] [address] [facility] [id number] [address] [place] [address] Jun, [facility] [address] [facility] [id number] [address] [place] [address] Jun, [facility] [id number] [place] [address] May, Moderate major depression F3 2.1 and Generalized anxiety disorder F41.1 [facility] [address] [facility] [id number] [address] [place] [address] 16 May, 2016 Major depressive disorder, s david episode, unspecified F32.9 and Anxiety disorder, unspecified F41.9 [facility] [address] [facility] [id number] [address] [place] [address] 15 May, 2016 [place] [address] [facility] [id number] [address] [place] [address] 14 May, 2016 Liver enzyme elevation R74.8 [facility] [address] [facility] [id number] [address] [place] [address] 14 May, 2016 Liver enzyme elevation R74.8 [place] [id number] [place] [address] 10 May, 2016 Shortness of breath on exert ion R06.02 ; Essential hypertension I10 ; Mixed hyperlipidemia E78.2 and Tobacco use Z72.0 [place] [id number] [place] [address] May, [facility] [address] [id number] [address] [place] [address] May, [facility] [address] [id number] [address] [place] [address] Apr, Anxiety F41.9 and Depression F32.9 [facility] [address] [id number] [address] [place] [address] Apr, [facility] [address] [id number] [address] [place] [address] Apr, [facility] [address] [id number] [address] [place] [address] Mar, Depression F32.9 and Anxiety F41.9 [facility] [address] [id number] [address] [place] [address] Mar, Anxiety F41.9 and Depression F32.9 [facility] [address] [id number] [address] [place] [address] Mar, Well woman exam (no gynecolo gical exam) Z00.00 [facility] [address] [id number] [address] [place] [address] Mar, [facility] [address] [id number] [address] [place] [address] Mar, [facility] [address] [id number] [address] [place] [id number] Feb, Dental caries K02.9 [facility] [address] [id number] [address] [place] [address] Feb, [facility] [address] [id number] [address] [place] [address] Feb, Anxiety F41.9 and Depression F32.9 [facility] [address] [id number] [address] [place] [id number] Feb, Dental examination Z01.20 [facility] [address] [id number] [address] [place] [address] Feb, [facility] [address] [id number] [address] [place] [address] Feb, [facility] [address] [id number] [address] [place] [address] Feb, Anxiety F41.9 and Depression F32.9 [facility] [address] [id number] [address] [place] [address] Jan, Severe episode of recurrent major depressive disorder, without psychotic features F33.2 and Anxiety disorder, unspecified F41.9 [facility] [address] [id number] [address] [place] [address] Jan, [facility] [address] [id number] [address] [place] [id number] Dec, [facility] [address] [id number] [address] [place] [address] Dec, Anxiety F41.9 and Depression F32.9 [facility] [address] [id number] [address] [place] [id number] Dec, Other specified transient ce rebral ischemias G45.8 and Nocturnal hypoxia G47.34 [facility] [address] [id number] [address] [place] [id number] Dec, [facility] [address] [id number] [address] [place] [id number] Dec, Other specified transient ce rebral ischemias G45.8 [facility] [address] [id number] [address] [place] [id number] 16 Dec, 2015 Severe episode of recurrent major depressive disorder, without psychotic features F33.2 and Anxiety disorder, unspecified F41.9 [facility] [address] [id number] [address] [place] [id number] Dec, [facility] [address] [facility] [id number] [address] [place] [id number] Dec, Anxiety F41.9 and Depression F32.9 [facility] [address] [facility] [id number] [address] [place] [id number] Dec, Anxiety F41.9 and Depression F32.9 [facility] [address] [facility] [id number] [address] [place] [id number] Dec, [place] [address] [address] [place] [id number] [address] [place] [id number] November, Anxiety F41.9 and Depression F32.9 [place] [address] [address] [place] [id number] [address] [place] [id number] November, Severe episode of recurrent major depressive disorder, without psychotic features F33.2 [place] [address] [address] [place] [id number] [address] [place] [id number] November, Mixed hyperlipidemia E78.2 [place] [address] [address] [place] [id number] [address] [place] [id number] November, Anxiety F41.9 and Depression F32.9 [place] [address] [address] [place] [id number] [address] [place] [id number] November, Prediabetes R73.09 ; Essenti al hypertension I10 ; Anxiety F41.9 ; Depression F32.9 ; Gastroesophageal reflux disease, esophagitis presence not specified K21.9 ; Primary osteoarthritis involving multiple joints M15.0 ; History of renal cell cancer Z85.528 ; Postnasal drip R09.82 ; Allergic rhinitis, unspecified J30.9 and Tobacco use Z72.0 [place] [address] [address] [place] [id number] [address] [place] [id number] Oct, Anxiety F41.9 and Depression F32.9 [place] [address] [address] [place] [id number] [address] [place] [id number] Oct, [place] [address] [address] [place] [id number] [address] [place] [id number] Oct, [place] [address] [address] [place] [id number] [address] [place] [phone] 14 Sep, 2015 Splenic artery aneurysm I72. 8 [facility] [address] [phone] 10 Sep, 2015 Depression F32.9 ; Anxiety F 41.9 ; Chronic prescription benzodiazepine use Z79.899 and Splenic artery aneurysm I72.8 [facility] [address] [id number] 10 Sep, 2015 Depression F32.9 and Anxiety F41.9 [facility] [address] [id number] 02 Sep, 2015 [facility] [address] [id number] 18 Aug, 2015 Dehydration E86.0 ; Diarrhea R19.7 ; Nausea R11.0 and Generalized abdominal pain R10.84 [facility] [address] [id number] Aug, [facility] [address] [id number] Jul, Depression F32.9 [facility] [address] [phone] Jul, [facility] [address] [address] Jul, Anxiety F41.9 and Depression F32.9 [facility] [address] [id number] Jul, [facility] [address] [address] Jun, Epigastric pain R10.13 [facility] [address] [place] [id number] [address] [place] [phone] Jun, [facility] [address] [phone] Jun, [facility] [address] [id number] [address] [place] [phone] May, [facility] [address] [facility] [id number] [address] [place] [phone] May, [facility] [address] [id number] [address] [place] [phone] Apr, [facility] [address] [id number] [address] [place] [phone] Mar, Anxiety state, unspecified 3 00.00 ; Depression 311 ; Prediabetes 790.29 ; Generalized osteoarthrosis, involving multiple sites 715.09 and Hypertension 401.9 [facility] [address] [id number] [address] [place] [address] Mar, [facility] [address] [facility] [id number] [address] [place] [phone] Feb, [facility] [address] [facility] [id number] [address] [place] [phone] Jan, [facility] [address] [id number] [address] [place] [phone] Jan, [facility] [address] [facility] [id number] [address] [place] [phone] Jan, Generalized osteoarthrosis, involving multiple sites 715.09 [facility] [address] [facility] [id number] [address] [place] [phone] Jan, Hx of renal cell cancer V10. 52 [facility] [address] [facility] [id number] [address] [place] [phone] Dec, Generalized osteoarthrosis, involving multiple sites 715.09 and Hx of renal cell cancer V10.52 [facility] [address] [id number] [address] [place] [phone] Dec, [facility] [address] [facility] [id number] [address] [place] [phone] Dec, [facility] [address] [id number] [address] [place] [phone] November, [facility] [address] [id number] [address] [place] [phone] Oct, [facility] [address] [id number] [address] [place] [phone] Oct, [facility] [address] [id number] [address] [place] [phone] Sep, [facility] [address] [id number] [address] [place] [phone] Sep, [facility] [address] [id number] [address] [place] [phone] Sep, [facility] [address] [id number] [address] [place] [phone] Sep, [facility] [address] [id number] [address] [place] [phone] Aug, [facility] [address] [id number] [address] [place] [phone] Aug, IMMUNIZATIONS No Known Immunizations SOCIAL HISTORY Never Assessed REASON FOR VISIT Refill Request PLAN OF CARE VITAL SIGNS MEDICATIONS Medication Instructions Dosage Frequency Start Date End Date Duration S tatus Spiriva HandiHaler 18 MCG Inhalation Once a day 2 puffs (1 capsule) 24h Oct, Active ProAir HFA 108 (90 Base) MCG/ACT [...]
--- OUTSIDE RECORDS SUMMARY | 2020-02-08 07:21 | XMS REPORT ---
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 Active 73934458 Problem Prediabetes R73.09 Active 0768122 Problem History of tobacco use Z87.891 Active 8744279302176 Problem Essential hypertension I10 Active 94898138 Problem Obstructive sleep apnea G47.33 Active 01418580 Problem Body mass index (bmi) 50-59.9 , adult Z68.43 Active 280730712 Problem Paresthesia of both hands R20.2 Acti ve 516486198 Problem Generalized anxiety disorder F41.1 A ctive 05505991 Problem Major depressive disorder, recurrent episode, mild degree F33.0 Active 216180276 Problem Restrictive lung disease J98.4 Activ e 43283297 Problem 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 Active 520146274 Problem Liver mass R16.0 Active 200966828 Problem Splenic artery aneurysm I72.8 Active 09435722 Problem Bilateral carpal tunnel syndrome G56.03 Active 96756686 Problem Chronic prescription benzodiazepine use Z79.899 Active 527977082 Problem Mixed hyperlipidemia E78.2 Active 065423800 Problem Primary osteoarthritis involving multiple joints M 15.0 Active 587902527 Problem Chronic prescription opiate use Z79.899 Active 993914498 Problem Fatty liver K76.0 Active 26963139 7 Problem Isolated proteinuria without specific morphologic lesion R80.0 Active 98733871 Problem Tobacco use Z72.0 Active 06885052 0 ALLERGIES No Known Allergies SOCIAL HISTORY Never Assessed PLAN OF CARE Activity Details Follow Up 4 Weeks Reason: VITAL SIGNS Height 62 in 2016-10-18 Weight 284.9 lbs 2016-10-18 Temperature 98.1 degrees Fahrenheit 2016-10-18 Heart Rate 76 bpm 2016-10-18 Respiratory Rate 20 2016-10-18 BMI 52.10 kg/m2 2016-10-18 Blood pressure systolic 128 mmHg 2016-10-18 Blood pressure diastolic 74 mmHg 2016-10-18 MEDICATIONS Medication Instructions Dosage Frequency Start Date End Date Duration S tatus Diazepam 2.5 MG Orally Once a day 1 tablet as needed at bedtime for anxiety 24h Sep, 28 days Active Duloxetine HCl 30 MG Orally daily 1 capsule at HS X 7 days th en 2 caps at HS 24h 60 Active Mirtazapine 30 MG TAKE ONE TABLET BY M OUTH BEFORE BEDTIME IN THE EVENING ONCE DAILY 30 Active Aspirin 325 MG Orally Once a day 1 tablet 24h Dec, Active Atenolol 50 mg Orally Once a day 1 tablet 24h 30 day s Active Atorvastatin Calcium 40 mg Orally Once a day 1 tablet 24h 30 Active BuPROPion HCl (XL) 300 MG Orally Once a day 1 tablet in the morning 24h Mar, Active Voltaren 1 % Transdermal 4 times a day as needed 2 grams 23 Aug, 2016 Active Hydrocodone-Acetaminophen 5-325 MG Orally 2 times a day as n eeded for pain take 1 tablet Sep, 28 days Active Omeprazole 20 mg Orally Once a day 2 capsules 24h Jun, 30 day(s) Active Tizanidine HCl 2 MG Orally every 8 hrs 1 tablet as needed 8h 30 Active Furosemide 20 mg Orally Once a day 1 tablet 24h Jun, 30 day(s) Active Duloxetine HCl 60 MG Orally Once a day 1 capsule 24h 16 Dec, 2015 Active RESULTS Name Result Date Reference Range PROTEIN E-PHORESIS, SERUM 2016-10-18 Protein, Total, Serum 6.8 6.0-8.5 Albumin 3.8 2.9-4.4 Duarx-6-Ahapixlr 0.2 0.0-0.4 Rdfgi-4-Ezihjeef 0.7 0.4-1.0 Beta Globulin 1.2 0.7-1.3 Gamma Globulin 0.9 0.4-1.8 M-David Not Observed Not Observed Globulin, Total 3.0 2.2-3.9 A/G Ratio 1.3 0.7-1.7 Please note: VITAMIN B12 2016-10-18 Vitamin B12 336 [id number] FOLATE (FOLIC ACID) 2016-10-18 Folate (Folic Acid), Serum 14.3 >3.0 TSH 2016-10-18 TSH 1.960 0.450-4.500 PROTEIN E-PHORESIS, SERUM 2016-10-18 Protein, Total, Serum 6.8 6.0-8.5 Albumin 3.8 2.9-4.4 Tplfw-5-Eiiqzgrl 0.2 0.0-0.4 Etsqt-3-Bcjdmlel 0.7 0.4-1.0 Beta Globulin 1.2 0.7-1.3 Gamma Globulin 0.9 0.4-1.8 M-David Not Observed Not Observed Globulin, Total 3.0 2.2-3.9 A/G Ratio 1.3 0.7-1.7 Please note: VITAMIN B12 2016-10-18 Vitamin B12 336 [id number] FOLATE (FOLIC ACID) 2016-10-18 Folate (Folic Acid), Serum 14.3 >3.0 TSH 2016-10-18 TSH 1.960 0.450-4.500 PDF Report 2016-10-18 PDF Report1 LCLS PROCEDURES Procedure Date Ordered Result Body Site LAB NOT BILLED BY [facility] October 18, 2016 VENIPUNCT, ROUTINE* October 18, 2016 IMMUNIZATIONS No Known Immunizations MEDICAL (GENERAL) HISTORY Type Description Date Medical History hypertension Medical History Arthritis Medical History chronic pain-in knees bilateral and lowe r back Medical History depression Medical History cancer-right kidney 2005 Surgical History breast biopsy-right breast, benign Surgical History nephrectomy-right Surgical History partial hysterectomy Surgical History bilateral carpal tunnel release Hospitalization History Hospitalization for surgery only Hospitalization History mini strokes 2015
--- OUTSIDE RECORDS SUMMARY | 2020-02-08 07:21 | XMS REPORT ---
Author Author Emilee NO Organization [facility] Address [address] [place] [address] Care Team Providers Care Lead Slot Technician Name Role Phone [email or web address] Unavailable PROBLEMS Type Condition ICD9-CM Code QDF63-HC Code Onset Dates Condition S tatus SNOMED Code Problem Mixed hyperlipidemia E78.2 Active 933248023 Problem Fatty liver K76.0 Active 29925158 7 Problem Obstructive sleep apnea G47.33 Active 44494607 Problem Allergic rhinitis, unspecified J30.9 Active 76973862 Problem Essential hypertension I10 Active 95036187 Problem History of renal cell cancer Z85.528 A ctive 639322236 Problem Prediabetes R73.09 Active 4054352 Problem Diastolic dysfunction I51.9 Active 9233060 Problem Body mass index (bmi) 50-59.9 , adult Z68.43 Active 510251338 Problem Paresthesia of both hands R20.2 Acti ve 542824364 Problem Habitual self-excoriation 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 Acti ve 112277564 Problem BMI 50.0-59.9, adult Z68.43 Active 939770859 Problem Restrictive lung disease J98.4 Activ e 12926761 Problem Splenic artery aneurysm I72.8 Active 77167644 Problem Liver mass R16.0 Active 119773317 Problem Generalized anxiety disorder F41.1 A ctive 07179626 Problem Major depressive disorder, recurrent episode, mild degree F33.0 Active 997663736 Problem Excoriation, neurotic L98.1 Active 97678081 Problem History of tobacco use Z87.891 Active 5423214020266 Problem Primary osteoarthritis involving multiple joints M 15.0 Active 146476430 Problem Isolated proteinuria without specific morphologic lesion R80.0 Active 61131120 Problem 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 Active 885948672 Problem Pulmonary emphysema, unspecified emphysema type J4 3.9 Active 39183478 Problem Chronic prescription opiate use Z79.899 Active 910470706 Problem Tobacco use Z72.0 Active 68243372 0 Problem Bilateral carpal tunnel syndrome G56.03 Active 90017424 Problem Chronic prescription benzodiazepine use Z79.899 Active 923679738 ALLERGIES No Information ENCOUNTERS Encounter Location Date Diagnosis [facility] [address] [facility] [id number] [address] [place] [address] Feb, [facility] [address] [facility] [id number] [address] [place] [address] Jan, [facility] [address] [facility] [id number] [address] [place] [address] Dec, [facility] [address] [address] Dec, [facility] [id number] [place] [address] Dec, [facility] [address] [id number] [address] [place] [address] November, [facility] [address] [id number] [address] [place] [address] November, [facility] [address] [address] November, Pulmonary emphysema, unspeci fied emphysema type J43.9 ; Restrictive lung disease J98.4 ; BMI 50.0-59.9, adult Z68.43 ; History of renal cell cancer Z85.528 ; Essential hypertension I10 ; Mixed hyperlipidemia E78.2 and Fatty liver K76.0 [facility] [address] [id number] [address] [place] [address] November, Generalized anxiety disorder F41.1 [facility] [address] [id number] [address] [place] [address] November, Generalized anxiety disorder F41.1 and Major depressive disorder, recurrent episode, mild degree F33.0 [facility] [address] [id number] [address] [place] [address] November, Generalized anxiety disorder F41.1 ; Major depressive disorder, recurrent episode, mild degree F33.0 and Habitual self-excoriation F42.4 [facility] [address] [id number] [address] [place] [address] November, [facility] [address] [facility] [id number] [address] [place] [address] Oct, Generalized anxiety disorder F41.1 [facility] [address] [id number] [address] [place] [address] Oct, [facility] [address] [facility] [facility] [id number] [address] [place] [address] Oct, Influenza-like illness R69 [facility] [address] [id number] [address] [place] [address] Sep, Influenza-like illness R69 [facility] [address] [id number] [address] [place] [address] Sep, Generalized anxiety disorder F41.1 [facility] [address] [id number] [address] [place] [address] Sep, [facility] [address] [id number] [address] [place] [address] Aug, [facility] [address] [id number] [address] [place] [address] Aug, [facility] [id number] [place] [address] Aug, Generalized anxiety disorder F41.1 [facility] [address] [facility] [facility] [id number] [address] [place] [address] Aug, Influenza-like illness R69 a nd BMI 50.0-59.9, adult Z68.43 [facility] [address] [facility] [facility] [id number] [address] [place] [address] Jul, Fatty liver K76.0 ; Restrict jean-paul lung disease J98.4 ; Diastolic dysfunction I51.9 ; Body mass index (bmi) 50-59.9 , adult Z68.43 and Chronic prescription opiate use Z79.899 [facility] [address] [facility] [facility] [id number] [address] [place] [address] Jul, Generalized anxiety disorder F41.1 [facility] [address] [facility] [facility] [id number] [address] [place] [address] Jul, Generalized anxiety disorder F41.1 [facility] [address] [facility] [facility] [id number] [address] [place] [address] Jul, Primary osteoarthritis invol ving multiple joints M15.0 [facility] [address] [facility] [facility] [id number] [address] [place] [address] Jun, Generalized anxiety disorder F41.1 [place] [address] [id number] [address] [place] [address] Jun, [place] [address] [id number] [address] [place] [address] Jun, Mixed hyperlipidemia E78.2 [facility] [address] [facility] [id number] [address] [place] [address] Jun, Generalized anxiety disorder F41.1 [place] [address] [facility] [id number] [address] [place] [address] Jun, Generalized anxiety disorder F41.1 ; Major depressive disorder, recurrent episode, mild degree F33.0 and Habitual self-excoriation F42.4 [facility] [address] [facility] [facility] [id number] [address] [place] [address] May, [facility] [address] [facility] [facility] [id number] [address] [place] [address] May, Generalized anxiety disorder F41.1 [facility] [address] [facility] [facility] [id number] [address] [place] [address] May, Generalized anxiety disorder F41.1 [facility] [address] [id number] [address] [place] [address] May, Primary osteoarthritis invol ving multiple joints M15.0 [facility] [address] [id number] [address] [place] [address] 09 Apr, 2017 Major depressive disorder, r ecurrent episode, mild degree F33.0 ; Generalized anxiety disorder F41.1 and Excoriation, neurotic L98.1 [facility] [address] [id number] [address] [place] [address] Apr, Primary osteoarthritis invol ving multiple joints M15.0 [facility] [address] [id number] [address] [place] [address] Apr, Essential hypertension I10 a nd Mixed hyperlipidemia E78.2 [facility] [address] [id number] [address] [place] [address] Apr, Generalized anxiety disorder F41.1 ; Major depressive disorder, recurrent episode, mild degree F33.0 and Habitual self-excoriation F42.4 [facility] [address] [id number] [address] [place] [address] 06 Mar, 2017 Generalized anxiety disorder F41.1 ; Major depressive disorder, recurrent episode, mild degree F33.0 and Habitual self-excoriation F42.4 [facility] [address] [id number] [address] [place] [address] Mar, Skin lesion L98.9 [facility] [address] [id number] [address] [place] [address] Mar, Primary osteoarthritis invol ving multiple joints M15.0 [facility] [address] [id number] [address] [place] [address] Mar, [facility] [address] [id number] [address] [place] [address] Mar, [facility] [address] [id number] [address] [place] [address] Feb, Major depressive disorder, r ecurrent episode, mild degree F33.0 ; Generalized anxiety disorder F41.1 and Excoriation, neurotic L98.1 [facility] [address] [facility] [facility] [id number] [address] [place] [address] Feb, Generalized anxiety disorder F41.1 [facility] [address] [id number] [address] [place] [address] Feb, Primary osteoarthritis invol ving multiple joints M15.0 [facility] [address] [id number] [address] [place] [address] Jan, [facility] [address] [facility] [id number] [address] [place] [address] Jan, Essential hypertension I10 ; Splenic artery aneurysm I72.8 ; Liver mass R16.0 ; Restrictive lung disease J98.4 ; Primary osteoarthritis involving multiple joints M15.0 ; Mixed hyperlipidemia E78.2 ; Bilateral carpal tunnel syndrome G56.03 ; Body mass index (bmi) 50-59.9 , adult Z68.43 and History of tobacco use Z87.891 [place] [address] [id number] [address] [place] [address] Jan, Major depressive disorder, r ecurrent episode, mild degree F33.0 and Generalized anxiety disorder F41.1 [place] [address] [place] [id number] [address] [place] [address] Jan, [place] [address] [id number] [address] [place] [address] Jan, Generalized anxiety disorder F41.1 and Major depressive disorder, recurrent episode, mild degree F33.0 [facility] [address] [facility] [facility] [id number] [address] [place] [address] Dec, Primary osteoarthritis invol ving multiple joints M15.0 [facility] [address] [facility] [facility] [id number] [address] [place] [address] Dec, Generalized anxiety disorder F41.1 [facility] [address] [id number] [address] [place] [address] Dec, [place] [id number] [place] [address] Dec, Major depressive disorder, r ecurrent episode, mild degree F33.0 and Generalized anxiety disorder F41.1 [place] [address] [id number] [address] [place] [address] Dec, Generalized anxiety disorder F41.1 and Major depressive disorder, recurrent episode, mild degree F33.0 [place] [address] [place] [id number] [address] [place] [address] November, Mild major depression F32.0 and Primary osteoarthritis involving multiple joints M15.0 [place] [address] [place] [id number] [address] [place] [address] November, Major depressive disorder, r ecurrent episode, mild degree F33.0 and Generalized anxiety disorder F41.1 [place] [address] [place] [id number] [address] [place] [address] November, Primary osteoarthritis invol ving multiple joints M15.0 ; Essential hypertension I10 ; Prediabetes R73.09 ; Mixed hyperlipidemia E78.2 ; Chronic prescription benzodiazepine use Z79.899 ; Chronic prescription opiate use Z79.899 ; Tobacco use Z72.0 ; Bilateral carpal tunnel syndrome G56.03 and Body mass index (bmi) 50-59.9 , adult Z68.43 [place] [address] [place] [id number] [address] [place] [address] November, Primary osteoarthritis invol ving multiple joints M15.0 and Mild major depression F32.0 [place] [address] [place] [id number] [address] [place] [address] Oct, [place] [address] [place] [id number] [address] [place] [address] Oct, Primary osteoarthritis invol ving multiple joints M15.0 ; Essential hypertension I10 ; Prediabetes R73.09 ; Chronic prescription benzodiazepine use Z79.899 ; Chronic prescription opiate use Z79.899 ; Tobacco use Z72.0 ; Mixed hyperlipidemia E78.2 ; Bilateral carpal tunnel syndrome G56.03 ; Body mass index (bmi) 50-59.9 , adult Z68.43 and Encounter for immunization Z23 [facility] [address] [facility] [id number] [address] [place] [address] Oct, Major depressive disorder, r ecurrent episode, mild degree F33.0 and Generalized anxiety disorder F41.1 [facility] [address] [id number] [address] [place] [address] Oct, [facility] [address] [id number] [address] [place] [address] Oct, [facility] [address] [id number] [address] [place] [address] Sep, Mild major depression F32.0 [facility] [address] [id number] [address] [place] [address] Sep, [facility] [address] [facility] [facility] [id number] [address] [place] [address] Sep, Mild major depression F32.0 and Generalized anxiety disorder F41.1 [facility] [address] [id number] [address] [place] [address] Sep, Paresthesia of both hands R2 0.2 and Cervical radiculopathy M54.12 [facility] [address] [id number] [address] [place] [address] Sep, [facility] [address] [id number] [address] [place] [address] Sep, [facility] [address] [id number] [address] [place] [address] Aug, Paresthesia of both hands R2 0.2 and Neck pain M54.2 [facility] [address] [facility] [facility] [id number] [address] [place] [address] Aug, [facility] [address] [facility] [facility] [id number] [address] [place] [address] Jul, Neck pain M54.2 and Paresthe eddie of both hands R20.2 [place] [address] [facility] [id number] [address] [place] [address] Jul, Proteinuria, unspecified typ e R80.9 [facility] [address] [facility] [facility] [id number] [address] [place] [address] Jul, Proteinuria, unspecified typ e R80.9 [place] [address] [facility] [id number] [address] [place] [address] Jul, [place] [address] [facility] [id number] [address] [place] [address] Jul, Other specified transient ce rebral ischemias G45.8 [place] [address] [facility] [id number] [address] [place] [address] Jun, Diastolic dysfunction I51.9 [place] [address] [place] [id number] [address] [place] [address] Jun, Diastolic dysfunction I51.9 [place] [address] [facility] [id number] [address] [place] [address] Jun, Major depressive disorder, s david episode, unspecified F32.9 and Anxiety disorder, unspecified F41.9 [place] [address] [facility] [id number] [address] [place] [address] Jun, [place] [address] [place] [id number] [address] [place] [address] Jun, [place] [address] [facility] [id number] [address] [place] [address] May, Moderate major depression F3 2.1 and Generalized anxiety disorder F41.1 [place] [address] [facility] [id number] [address] [place] [address] May, Major depressive disorder, s david episode, unspecified F32.9 and Anxiety disorder, unspecified F41.9 [place] [address] [place] [id number] [address] [place] [address] May, [facility] [address] [facility] [facility] [id number] [address] [place] [address] 14 May, 2016 Liver enzyme elevation R74.8 [facility] [address] [facility] [facility] [id number] [address] [place] [address] 14 May, 2016 Liver enzyme elevation R74.8 [facility] [address] [facility] [facility] [id number] [address] [place] [address] 10 May, 2016 Shortness of breath on exert ion R06.02 ; Essential hypertension I10 ; Mixed hyperlipidemia E78.2 and Tobacco use Z72.0 [facility] [address] [facility] [facility] [id number] [address] [place] [address] 03 May, 2016 [facility] [address] [facility] [facility] [id number] [address] [place] [address] 02 May, 2016 [facility] [address] [id number] [address] [place] [address] Apr, Anxiety F41.9 and Depression F32.9 [facility] [address] [id number] [address] [place] [address] Apr, [facility] [address] [id number] [address] [place] [address] Apr, [facility] [address] [id number] [address] [place] [address] Mar, Depression F32.9 and Anxiety F41.9 [facility] [address] [facility] [facility] [id number] [address] [place] [address] 08 Mar, 2016 Anxiety F41.9 and Depression F32.9 [facility] [address] [facility] [facility] [id number] [address] [place] [address] 06 Mar, 2016 Well woman exam (no gynecolo gical exam) Z00.00 [facility] [address] [facility] [facility] [id number] [address] [place] [address] 02 Mar, 2016 [facility] [address] [id number] [address] [place] [address] Mar, [facility] [address] [id number] [address] [place] [id number] Feb, Dental caries K02.9 [facility] [address] [id number] [address] [place] [address] Feb, [facility] [address] [id number] [address] [place] [address] Feb, Anxiety F41.9 and Depression F32.9 [facility] [address] [id number] [address] [place] [id number] Feb, Dental examination Z01.20 [facility] [address] [id number] [address] [place] [address] Feb, [facility] [address] [id number] [address] [place] [address] Feb, [facility] [address] [id number] [address] [place] [address] Feb, Anxiety F41.9 and Depression F32.9 [facility] [address] [id number] [address] [place] [address] Jan, Severe episode of recurrent major depressive disorder, without psychotic features F33.2 and Anxiety disorder, unspecified F41.9 [facility] [address] [id number] [address] [place] [address] Jan, [facility] [address] [id number] [address] [place] [address] Dec, [facility] [address] [id number] [address] [place] [address] Dec, Anxiety F41.9 and Depression F32.9 [facility] [address] [facility] [id number] [address] [place] [address] Dec, Other specified transient ce rebral ischemias G45.8 and Nocturnal hypoxia G47.34 [facility] [address] [id number] [address] [place] [address] 18 Dec, [address] [place] [address] [id number] [address] [place] [address] 17 Dec, 2015 Other specified transient ce rebral ischemias G45.8 [place] [address] [facility] [id number] [address] [place] [address] 16 Dec, 2015 Severe episode of recurrent major depressive disorder, without psychotic features F33.2 and Anxiety disorder, unspecified F41.9 [place] [address] [facility] [id number] [address] [place] [address] 13 Dec, 2015 [place] [address] [place] [id number] [place] [phone] 13 Dec, 2015 Anxiety F41.9 and Depression F32.9 [place] [address] [place] [id number] [address] [place] [address] 07 Dec, 2015 Anxiety F41.9 and Depression F32.9 [place] [address] [place] [id number] [address] [place] [address] Dec, [place] [address] [facility] [id number] [address] [place] [address] November, Anxiety F41.9 and Depression F32.9 [place] [address] [facility] [id number] [address] [place] [address] November, Severe episode of recurrent major depressive disorder, without psychotic features F33.2 [place] [address] [place] [id number] [address] [place] [address] November, Mixed hyperlipidemia E78.2 [place] [address] [facility] [id number] [address] [place] [address] November, Anxiety F41.9 and Depression F32.9 [place] [address] [facility] [id number] [address] [place] [address] 05 Nov, 2015 Prediabetes R73.09 ; Essenti al hypertension I10 ; Anxiety F41.9 ; Depression F32.9 ; Gastroesophageal reflux disease, esophagitis presence not specified K21.9 ; Primary osteoarthritis involving multiple joints M15.0 ; History of renal cell cancer Z85.528 ; Postnasal drip R09.82 ; Allergic rhinitis, unspecified J30.9 and Tobacco use Z72.0 [facility] [address] [address] 11 Oct, 2015 Anxiety F41.9 and Depression F32.9 [place] [address] [id number] 07 Oct, 2015 [place] [address] [address] Oct, [place] [address] [address] 14 Sep, 2015 Splenic artery aneurysm I72. 8 [place] [address] [address] 10 Sep, 2015 Depression F32.9 ; Anxiety F 41.9 ; Chronic prescription benzodiazepine use Z79.899 and Splenic artery aneurysm I72.8 [place] [address] [address] Sep, Depression F32.9 and Anxiety F41.9 [place] [address] [address] Sep, [place] [address] [address] 18 Aug, 2015 Dehydration E86.0 ; Diarrhea R19.7 ; Nausea R11.0 and Generalized abdominal pain R10.84 [place] [address] [address] Aug, [place] [address] [id number] Jul, Depression F32.9 [place] [address] [id number] Jul, [facility] [address] [id number] [address] [place] [id number] Jul, Anxiety F41.9 and Depression F32.9 [facility] [address] [facility] [id number] [address] [place] [id number] Jul, [facility] [facility] [address] [facility] [id number] [address] [place] [id number] Jun, Epigastric pain R10.13 [facility] [address] [id number] [address] [place] [phone] Jun, [facility] [address] [id number] [address] [place] [phone] Jun, [facility] [address] [facility] [id number] [address] [place] [phone] May, [facility] [address] [id number] [address] [place] [phone] May, [facility] [address] [facility] [facility] [id number] [address] [place] [id number] Apr, [facility] [address] [facility] [facility] [id number] [address] [place] [id number] Mar, Anxiety state, unspecified 3 00.00 ; Depression 311 ; Prediabetes 790.29 ; Generalized osteoarthrosis, involving multiple sites 715.09 and Hypertension 401.9 [facility] [address] [facility] [facility] [id number] [address] [place] [phone] Mar, [facility] [address] [facility] [id number] [address] [place] [phone] Feb, [facility] [address] [facility] [facility] [id number] [address] [place] [phone] Jan, [facility] [address] [facility] [facility] [id number] [address] [place] [phone] Jan, [facility] [address] [facility] [facility] [id number] [address] [place] [id number] Jan, Generalized osteoarthrosis, involving multiple sites 715.09 [facility] [address] [id number] [address] [place] [phone] 07 Jan, 2015 Hx of renal cell cancer V10. 52 [facility] [address] [id number] [address] [place] [phone] 30 Dec, 2014 Generalized osteoarthrosis, involving multiple sites 715.09 and Hx of renal cell cancer V10.52 [facility] [address] [id number] [address] [place] [phone] 24 Dec, 2014 [facility] [address] [id number] [address] [place] [phone] Dec, [facility] [address] [id number] [address] [place] [phone] November, [facility] [address] [id number] [address] [place] [phone] Oct, [facility] [address] [id number] [address] [place] [phone] Oct, [facility] [address] [id number] [address] [place] [phone] Sep, [facility] [address] [id number] [address] [place] [phone] Sep, [facility] [address] [id number] [address] [place] [phone] Sep, [facility] [address] [id number] [address] [place] [phone] Sep, [facility] [address] [id number] [address] [place] [phone] Aug, [facility] [address] [id number] [address] [place] [phone] Aug, IMMUNIZATIONS No Known Immunizations SOCIAL HISTORY [...] History depression Medical History cancer-right kidney 2004 Surgical History breast biopsy-right breast, benign Surgical History nephrectomy-right Surgical History partial hysterectomy Surgical History bilateral carpal tunnel release Hospitalization History Hospitalization for surgery only Hospitalization History mini strokes 2015
--- OUTSIDE RECORDS SUMMARY | 2020-02-08 07:21 | XMS REPORT ---
Author Author Emilee MAY Organization [facility] Address [address] [place] [address] Care Team Providers Care Supervisor Properties Name Role Phone LALOJEZ CONSTANTINOHANY Unavailable PROBLEMS Type Condition ICD9-CM Code [id number] Code Onset Dates Condition S tatus SNOMED Code Problem Allergic rhinitis, unspecified J30.9 Active 51558000 Problem Diastolic dysfunction I51.9 Active 6320537 Problem History of renal cell cancer Z85.528 A ctive 708838763 Problem Excoriation, neurotic L98.1 Active 42304702 Problem Prediabetes R73.09 Active 7405394 Problem History of tobacco use Z87.891 Active 3786590430007 Problem Essential hypertension I10 Active 06704360 Problem Obstructive sleep apnea G47.33 Active 85940734 Problem Body mass index (bmi) 50-59.9 , adult Z68.43 Active 478154966 Problem Paresthesia of both hands R20.2 Acti ve 666058695 Problem Generalized anxiety disorder F41.1 A ctive 21274156 Problem Major depressive disorder, recurrent episode, mild degree F33.0 Active 029618397 Problem Restrictive lung disease J98.4 Activ e 90544481 Problem 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 Active 445966882 Problem Liver mass R16.0 Active 001641321 Problem Splenic artery aneurysm I72.8 Active 07491725 Problem Bilateral carpal tunnel syndrome G56.03 Active 54765107 Problem Chronic prescription benzodiazepine use Z79.899 Active 990262703 Problem Mixed hyperlipidemia E78.2 Active 036746358 Problem Primary osteoarthritis involving multiple joints M 15.0 Active 015986060 Problem Chronic prescription opiate use Z79.899 Active 609841233 Problem Fatty liver K76.0 Active 05363350 7 Problem Isolated proteinuria without specific morphologic lesion R80.0 Active 90672154 Problem Tobacco use Z72.0 Active 85672567 0 ALLERGIES Unknown Allergies SOCIAL HISTORY No smoking Hx information available PLAN OF CARE VITAL SIGNS MEDICATIONS Unknown Medications RESULTS Name Result Date Reference Range URINE PROTEIN TO CREATININE RATIO 2016-08-06 Creatinine, Urine 90.2 Not Estab. Protein,Total,Urine 10.0 Not Estab. Protein/Creat Ratio 111 0-200 PROCEDURES Procedure Date Ordered Related Diagnosis Body Site LAB NOT BILLED BY [facility] Aug 06, 2016 IMMUNIZATIONS No Known Immunizations
--- OUTSIDE RECORDS SUMMARY | 2020-02-08 07:21 | XMS REPORT ---
Author Author mEilee CASSIDY Organization [facility] Address [address] [place] [address] Care Team Providers Care Metal Template Maker Name Role Phone LOVELY CASSIDY Unavailable PROBLEMS Type Condition ICD9-CM Code [id number] Code Onset Dates Condition S tatus SNOMED Code Problem Mixed hyperlipidemia E78.2 Active 610482578 Problem Chronic prescription opiate use Z79.899 Active 028906902 Problem Fatty liver K76.0 Active 92408561 7 Problem Tobacco use Z72.0 Active 05069891 0 Problem Obstructive sleep apnea G47.33 Active 18387023 Problem Allergic rhinitis, unspecified J30.9 Active 45216977 Problem Diastolic dysfunction I51.9 Active 2112607 Problem History of renal cell cancer Z85.528 A ctive 841814503 Problem Excoriation, neurotic L98.1 Active 84367466 Problem History of tobacco use Z87.891 Active 7150798904948 Problem Liver mass R16.0 Active 045340589 Problem Prediabetes R73.09 Active 1080070 Problem Essential hypertension I10 Active 01589624 Problem Body mass index (bmi) 50-59.9 , adult Z68.43 Active 355853147 Problem Paresthesia of both hands R20.2 Acti ve 347507069 Problem Generalized anxiety disorder F41.1 A ctive 66239550 Problem Major depressive disorder, recurrent episode, mild degree F33.0 Active 897910905 Problem 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 Active 532943239 Problem Pulmonary emphysema, unspecified emphysema type J4 3.9 Active 04789760 Problem Splenic artery aneurysm I72.8 Active 95015647 Problem Restrictive lung disease J98.4 Activ e 38826364 Problem Bilateral carpal tunnel syndrome G56.03 Active 46280984 Problem Chronic prescription benzodiazepine use Z79.899 Active 991399732 Problem Primary osteoarthritis involving multiple joints M 15.0 Active 789891410 Problem Isolated proteinuria without specific morphologic lesion R80.0 Active 45534351 ALLERGIES No Information ENCOUNTERS Encounter Location Date Diagnosis [facility] [id number] [place] [id number] Sep, Influenza-like illness R69 [facility] [id number] [place] [phone] Sep, Generalized anxiety disorder F41.1 [facility] [address] [address] Sep, [facility] [address] [address] Aug, [facility] [address] [address] Aug, [facility] [address] [address] Aug, Generalized anxiety disorder F41.1 [facility] [id number] [place] [phone] Aug, Influenza-like illness R69 a nd BMI 50.0-59.9, adult Z68.43 [facility] [id number] [place] [phone] Jul, Fatty liver K76.0 ; Restrict jean-paul lung disease J98.4 ; Diastolic dysfunction I51.9 ; Body mass index (bmi) 50-59.9 , adult Z68.43 and Chronic prescription opiate use Z79.899 [facility] [id number] [place] [address] Jul, Generalized anxiety disorder F41.1 [facility] [address] [address] Jul, Generalized anxiety disorder F41.1 [facility] [id number] [place] [phone] Jul, Primary osteoarthritis invol ving multiple joints M15.0 [facility] [id number] [place] [phone] Jun, Generalized anxiety disorder F41.1 [facility] [address] [id number] [address] [place] [id number] Jun, [facility] [address] [id number] [address] [place] [phone] Jun, Mixed hyperlipidemia E78.2 [facility] [address] [id number] [address] [place] [phone] Jun, Generalized anxiety disorder F41.1 [facility] [address] [id number] [address] [place] [id number] Jun, Generalized anxiety disorder F41.1 ; Major depressive disorder, recurrent episode, mild degree F33.0 and Habitual self-excoriation F42.4 [facility] [address] [facility] [id number] [address] [place] [phone] May, [facility] [address] [facility] [id number] [address] [place] [phone] May, Generalized anxiety disorder F41.1 [facility] [address] [facility] [id number] [address] [place] [phone] May, Generalized anxiety disorder F41.1 [facility] [address] [facility] [id number] [address] [place] [id number] May, Primary osteoarthritis invol ving multiple joints M15.0 [facility] [address] [id number] [address] [place] [id number] Apr, Major depressive disorder, r ecurrent episode, mild degree F33.0 ; Generalized anxiety disorder F41.1 and Excoriation, neurotic L98.1 [facility] [address] [facility] [id number] [address] [place] [phone] Apr, Primary osteoarthritis invol ving multiple joints M15.0 [facility] [address] [facility] [id number] [address] [place] [id number] Apr, Essential hypertension I10 a nd Mixed hyperlipidemia E78.2 [facility] [address] [id number] [address] [place] [address] Apr, Generalized anxiety disorder F41.1 ; Major depressive disorder, recurrent episode, mild degree F33.0 and Habitual self-excoriation F42.4 [facility] [address] [id number] [address] [place] [id number] Mar, Generalized anxiety disorder F41.1 ; Major depressive disorder, recurrent episode, mild degree F33.0 and Habitual self-excoriation F42.4 [facility] [address] [id number] [address] [place] [phone] Mar, Skin lesion L98.9 [facility] [address] [id number] [address] [place] [phone] Mar, Primary osteoarthritis invol ving multiple joints M15.0 [facility] [address] [id number] [address] [place] [id number] Mar, [facility] [address] [id number] [address] [place] [id number] Mar, [facility] [address] [id number] [address] [place] [phone] Feb, Major depressive disorder, r ecurrent episode, mild degree F33.0 ; Generalized anxiety disorder F41.1 and Excoriation, neurotic L98.1 [facility] [address] [id number] [address] [place] [phone] Feb, Generalized anxiety disorder F41.1 [facility] [address] [id number] [address] [place] [phone] Feb, Primary osteoarthritis invol ving multiple joints M15.0 [facility] [address] [id number] [address] [place] [phone] Jan, [facility] [address] [id number] [address] [place] [id number] Jan, Essential hypertension I10 ; Splenic artery aneurysm I72.8 ; Liver mass R16.0 ; Restrictive lung disease J98.4 ; Primary osteoarthritis involving multiple joints M15.0 ; Mixed hyperlipidemia E78.2 ; Bilateral carpal tunnel syndrome G56.03 ; Body mass index (bmi) 50-59.9 , adult Z68.43 and History of tobacco use Z87.891 [facility] [address] [id number] [address] [place] [phone] Jan, Major depressive disorder, r ecurrent episode, mild degree F33.0 and Generalized anxiety disorder F41.1 [facility] [address] [id number] [address] [place] [phone] Jan, [facility] [address] [id number] [address] [place] [address] Jan, Generalized anxiety disorder F41.1 and Major depressive disorder, recurrent episode, mild degree F33.0 [facility] [address] [id number] [address] [place] [phone] Dec, Primary osteoarthritis invol ving multiple joints M15.0 [facility] [address] [id number] [address] [place] [phone] Dec, Generalized anxiety disorder F41.1 [facility] [address] [id number] [address] [place] [id number] Dec, [facility] [address] [id number] [address] [place] [phone] Dec, Major depressive disorder, r ecurrent episode, mild degree F33.0 and Generalized anxiety disorder F41.1 [facility] [address] [id number] [address] [place] [id number] Dec, Generalized anxiety disorder F41.1 and Major depressive disorder, recurrent episode, mild degree F33.0 [facility] [address] [id number] [address] [place] [phone] November, Mild major depression F32.0 and Primary osteoarthritis involving multiple joints M15.0 [facility] [address] [address] November, Major depressive disorder, r ecurrent episode, mild degree F33.0 and Generalized anxiety disorder F41.1 [place] [address] [address] November, Primary osteoarthritis invol ving multiple joints M15.0 ; Essential hypertension I10 ; Prediabetes R73.09 ; Mixed hyperlipidemia E78.2 ; Chronic prescription benzodiazepine use Z79.899 ; Chronic prescription opiate use Z79.899 ; Tobacco use Z72.0 ; Bilateral carpal tunnel syndrome G56.03 and Body mass index (bmi) 50-59.9 , adult Z68.[address] [address] November, Primary osteoarthritis invol ving multiple joints M15.0 and Mild major depression F32.[address] [address] Oct, [address] [address] Oct, Primary osteoarthritis invol ving multiple joints M15.0 ; Essential hypertension I10 ; Prediabetes R73.09 ; Chronic prescription benzodiazepine use Z79.899 ; Chronic prescription opiate use Z79.899 ; Tobacco use Z72.0 ; Mixed hyperlipidemia E78.2 ; Bilateral carpal tunnel syndrome G56.03 ; Body mass index (bmi) 50-59.9 , adult Z68.43 and Encounter for immunization Z23 [address] [address] Oct, Major depressive disorder, r ecurrent episode, mild degree F33.0 and Generalized anxiety disorder F41.[address] [address] Oct, [address] [address] Oct, [address] [place] [address] Sep, Mild major depression F32.0 [facility] [address] [id number] [address] [place] [id number] Sep, [facility] [address] [facility] [id number] [address] [place] [id number] Sep, Mild major depression F32.0 and Generalized anxiety disorder F41.1 [facility] [address] [facility] [id number] [address] [place] [id number] Sep, Paresthesia of both hands R2 0.2 and Cervical radiculopathy M54.12 [facility] [address] [facility] [id number] [address] [place] [phone] Sep, [facility] [address] [facility] [id number] [address] [place] [id number] Sep, [facility] [address] [facility] [id number] [address] [place] [phone] Aug, Paresthesia of both hands R2 0.2 and Neck pain M54.2 [place] [address] [facility] [id number] [address] [place] [phone] Aug, [facility] [address] [facility] [id number] [address] [place] [id number] Jul, Neck pain M54.2 and Paresthe eddie of both hands R20.2 [place] [address] [facility] [id number] [address] [place] [id number] Jul, Proteinuria, unspecified typ e R80.9 [facility] [address] [facility] [id number] [address] [place] [id number] Jul, Proteinuria, unspecified typ e R80.9 [facility] [address] [facility] [id number] [address] [place] [phone] Jul, [facility] [address] [facility] [id number] [address] [place] [id number] Jul, Other specified transient ce rebral ischemias G45.8 [facility] [address] [facility] [id number] [address] [place] [phone] Jun, Diastolic dysfunction I51.9 [facility] [address] [facility] [id number] [address] [place] [phone] Jun, Diastolic dysfunction I51.9 [facility] [address] [facility] [id number] [address] [place] [phone] Jun, Major depressive disorder, s david episode, unspecified F32.9 and Anxiety disorder, unspecified F41.9 [facility] [address] [facility] [id number] [address] [place] [id number] Jun, [facility] [address] [id number] [address] [place] [id number] Jun, [facility] [id number] [place] [phone] May, Moderate major depression F3 2.1 and Generalized anxiety disorder F41.1 [facility] [id number] [place] [id number] 16 May, 2016 Major depressive disorder, s david episode, unspecified F32.9 and Anxiety disorder, unspecified F41.9 [facility] [address] [id number] [address] [place] [id number] 15 May, 2016 [facility] [address] [id number] [address] [place] [id number] 14 May, 2016 Liver enzyme elevation R74.8 [facility] [address] [id number] [address] [place] [phone] 14 May, 2016 Liver enzyme elevation R74.8 [facility] [address] [id number] [address] [place] [id number] 10 May, 2016 Shortness of breath on exert ion R06.02 ; Essential hypertension I10 ; Mixed hyperlipidemia E78.2 and Tobacco use Z72.0 [facility] [address] [id number] [address] [place] [id number] May, [facility] [address] [id number] [address] [place] [phone] May, [facility] [address] [id number] [address] [place] [id number] Apr, Anxiety F41.9 and Depression F32.9 [facility] [address] [id number] [address] [place] [phone] Apr, [facility] [address] [id number] [address] [place] [id number] Apr, [facility] [address] [id number] [address] [place] [phone] Mar, Depression F32.9 and Anxiety F41.9 [facility] [address] [id number] [address] [place] [id number] Mar, Anxiety F41.9 and Depression F32.9 [facility] [address] [id number] [address] [place] [phone] Mar, Well woman exam (no gynecolo gical exam) Z00.00 [facility] [address] [id number] [address] [place] [phone] Mar, [facility] [address] [id number] [address] [place] [phone] Mar, [facility] [address] [id number] [address] [place] [id number] Feb, Dental caries K02.9 [facility] [address] [id number] [address] [place] [phone] Feb, [facility] [address] [id number] [address] [place] [id number] Feb, Anxiety F41.9 and Depression F32.9 [facility] [address] [id number] [address] [place] [id number] Feb, Dental examination Z01.20 [facility] [address] [id number] [address] [place] [phone] Feb, [facility] [address] [id number] [address] [place] [phone] Feb, [facility] [address] [id number] [address] [place] [phone] Feb, Anxiety F41.9 and Depression F32.9 [facility] [address] [id number] [address] [place] [id number] Jan, Severe episode of recurrent major depressive disorder, without psychotic features F33.2 and Anxiety disorder, unspecified F41.9 [facility] [address] [id number] [address] [place] [phone] Jan, [facility] [address] [id number] [address] [place] [phone] Dec, [facility] [address] [id number] [address] [place] [phone] Dec, Anxiety F41.9 and Depression F32.9 [facility] [address] [id number] [address] [place] [phone] Dec, Other specified transient ce rebral ischemias G45.8 and Nocturnal hypoxia G47.34 [facility] [address] [id number] [address] [place] [id number] Dec, [facility] [address] [id number] [address] [place] [phone] Dec, Other specified transient ce rebral ischemias G45.8 [facility] [address] [id number] [address] [place] [id number] 16 Dec, 2015 Severe episode of recurrent major depressive disorder, without psychotic features F33.2 and Anxiety disorder, unspecified F41.9 [facility] [address] [id number] [address] [place] [phone] Dec, [facility] [address] [id number] 13 Dec, 2015 Anxiety F41.9 and Depression F32.9 [place] [address] [id number] 07 Dec, 2015 Anxiety F41.9 and Depression F32.9 [place] [address] [address] Dec, [place] [address] [address] November, Anxiety F41.9 and Depression F32.9 [place] [address] [address] November, Severe episode of recurrent major depressive disorder, without psychotic features F33.2 [place] [address] [address] November, Mixed hyperlipidemia E78.2 [place] [address] [address] November, Anxiety F41.9 and Depression F32.9 [place] [address] [address] November, Prediabetes R73.09 ; Essenti al hypertension I10 ; Anxiety F41.9 ; Depression F32.9 ; Gastroesophageal reflux disease, esophagitis presence not specified K21.9 ; Primary osteoarthritis involving multiple joints M15.0 ; History of renal cell cancer Z85.528 ; Postnasal drip R09.82 ; Allergic rhinitis, unspecified J30.9 and Tobacco use Z72.0 [place] [address] [address] Oct, Anxiety F41.9 and Depression F32.9 [place] [address] [address] Oct, [place] [address] [address] Oct, [facility] [address] [place] [address] 14 Sep, 2015 Splenic artery aneurysm I72. 8 [facility] [id number] [place] [address] 10 Sep, 2015 Depression F32.9 ; Anxiety F 41.9 ; Chronic prescription benzodiazepine use Z79.899 and Splenic artery aneurysm I72.8 [facility] [address] [place] [address] 10 Sep, 2015 Depression F32.9 and Anxiety F41.9 [facility] [address] [address] Sep, [facility] [address] [address] 18 Aug, 2015 Dehydration E86.0 ; Diarrhea R19.7 ; Nausea R11.0 and Generalized abdominal pain R10.84 [facility] [address] [id number] [place] [address] Aug, [facility] [address] [address] Jul, Depression F32.9 [facility] [address] [address] Jul, [facility] [address] [address] Jul, Anxiety F41.9 and Depression F32.9 [facility] [address] [place] [address] Jul, [facility] [address] [address] Jun, Epigastric pain R10.13 [facility] [address] [place] [address] Jun, [facility] [address] [address] Jun, [facility] [address] [id number] [address] [place] [phone] May, [facility] [address] [facility] [id number] [address] [place] [id number] May, [facility] [address] [facility] [id number] [address] [place] [id number] Apr, [facility] [address] [facility] [id number] [address] [place] [phone] Mar, Anxiety state, unspecified 3 00.00 ; Depression 311 ; Prediabetes 790.29 ; Generalized osteoarthrosis, involving multiple sites 715.09 and Hypertension 401.9 [facility] [address] [facility] [id number] [address] [place] [phone] Mar, [facility] [address] [facility] [id number] [address] [place] [id number] Feb, [facility] [address] [facility] [id number] [address] [place] [phone] Jan, [facility] [address] [facility] [id number] [address] [place] [phone] Jan, [facility] [address] [facility] [id number] [address] [place] [id number] Jan, Generalized osteoarthrosis, involving multiple sites 715.09 [facility] [address] [facility] [id number] [address] [place] [phone] 07 Jan, 2015 Hx of renal cell cancer V10. 52 [facility] [address] [facility] [id number] [address] [place] [phone] Dec, Generalized osteoarthrosis, involving multiple sites 715.09 and Hx of renal cell cancer V10.52 [facility] [address] [facility] [id number] [address] [place] [phone] Dec, [facility] [address] [facility] [id number] [address] [place] [phone] Dec, [facility] [address] [id number] [address] [place] [phone] November, [facility] [address] [id number] [address] [place] [phone] Oct, [facility] [address] [id number] [address] [place] [phone] Oct, [facility] [address] [id number] [address] [place] [phone] Sep, [facility] [address] [id number] [address] [place] [phone] Sep, [facility] [address] [id number] [address] [place] [phone] Sep, [facility] [address] [id number] [address] [place] [phone] Sep, [facility] [address] [id number] [address] [place] [phone] Aug, [facility] [address] [id number] [address] [place] [phone] Aug, IMMUNIZATIONS No Known Immunizations SOCIAL HISTORY Never Assessed REASON FOR VISIT Follow-up Depression/Anxiety PLAN OF CARE Activity Details Follow Up 4 Weeks. Next available Reas on: Follow-up VITAL SIGNS MEDICATIONS Unknown Medications RESULTS No Results PROCEDURES Procedure Date Ordered Result Body Site Psychotherapy, patient &/family, 30 minutes, established john jaime February 04, 2017 INSTRUCTIONS MEDICATIONS ADMINISTERED No Known [...]
--- OUTSIDE RECORDS SUMMARY | 2020-02-08 07:21 | XMS REPORT ---
Author Author Emilee MAY Organization [facility] Address [address] [place] [address] Care Team Providers Care Engine Dynamometer Tester Name Role Phone LALOJEZ CONSTANTINOHANY Unavailable PROBLEMS Type Condition ICD9-CM Code OPL68-ZU Code Onset Dates Condition S tatus SNOMED Code Problem Allergic rhinitis, unspecified J30.9 Active 69631955 Problem Diastolic dysfunction I51.9 Active 0417478 Problem History of renal cell cancer Z85.528 A ctive 991391968 Problem Excoriation, neurotic L98.1 Active 28965507 Problem Prediabetes R73.09 Active 4961076 Problem History of tobacco use Z87.891 Active 5275735357966 Problem Essential hypertension I10 Active 56468943 Problem Obstructive sleep apnea G47.33 Active 95144863 Problem Body mass index (bmi) 50-59.9 , adult Z68.43 Active 572916422 Problem Paresthesia of both hands R20.2 Acti ve 963994192 Problem Generalized anxiety disorder F41.1 A ctive 98658000 Problem Major depressive disorder, recurrent episode, mild degree F33.0 Active 548992159 Problem Restrictive lung disease J98.4 Activ e 16748275 Problem 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 Active 385208992 Problem Liver mass R16.0 Active 890224197 Problem Splenic artery aneurysm I72.8 Active 85641079 Problem Bilateral carpal tunnel syndrome G56.03 Active 52734722 Problem Chronic prescription benzodiazepine use Z79.899 Active 796230364 Problem Mixed hyperlipidemia E78.2 Active 852877827 Problem Primary osteoarthritis involving multiple joints M 15.0 Active 937022627 Problem Chronic prescription opiate use Z79.899 Active 543242875 Problem Fatty liver K76.0 Active 36587614 7 Problem Isolated proteinuria without specific morphologic lesion R80.0 Active 11195304 Problem Tobacco use Z72.0 Active 37414331 0 ALLERGIES No Information SOCIAL HISTORY Never Assessed PLAN OF CARE VITAL SIGNS MEDICATIONS Unknown Medications RESULTS No Results PROCEDURES No Known procedures IMMUNIZATIONS No Known Immunizations MEDICAL (GENERAL) HISTORY [...]
--- OUTSIDE RECORDS SUMMARY | 2020-02-08 07:21 | XMS REPORT ---
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 Name Role Phone LALOJEZALBANIA Unavailable PROBLEMS Type Condition ICD9-CM Code TPI02-JT Code Onset Dates Condition S tatus SNOMED Code Problem Mixed hyperlipidemia E78.2 Active 148725292 Problem Fatty liver K76.0 Active 66768621 7 Problem Obstructive sleep apnea G47.33 Active 75068664 Problem Allergic rhinitis, unspecified J30.9 Active 70133513 Problem Essential hypertension I10 Active 14565184 Problem History of renal cell cancer Z85.528 A ctive 475003352 Problem Prediabetes R73.09 Active 2849727 Problem Diastolic dysfunction I51.9 Active 4913328 Problem Body mass index (bmi) 50-59.9 , adult Z68.43 Active 703108527 Problem Paresthesia of both hands R20.2 Acti ve 481576743 Problem Habitual self-excoriation F42.4 Acti ve 332261078 Problem BMI 50.0-59.9, adult Z68.43 Active 295885570 Problem Restrictive lung disease J98.4 Activ e 83138720 Problem Splenic artery aneurysm I72.8 Active 96947523 Problem Liver mass R16.0 Active 331247038 Problem Generalized anxiety disorder F41.1 A ctive 95556490 Problem Major depressive disorder, recurrent episode, mild degree F33.0 Active 171576834 Problem Excoriation, neurotic L98.1 Active 50188883 Problem History of tobacco use Z87.891 Active 3310442542948 Problem Primary osteoarthritis involving multiple joints M 15.0 Active 767434776 Problem Isolated proteinuria without specific morphologic lesion R80.0 Active 85974128 Problem 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 Active 119335467 Problem Pulmonary emphysema, unspecified emphysema type J4 3.9 Active 74527695 Problem Chronic prescription opiate use Z79.899 Active 427569146 Problem Tobacco use Z72.0 Active 17169502 0 Problem Bilateral carpal tunnel syndrome G56.03 Active 44143437 Problem Chronic prescription benzodiazepine use Z79.899 Active 020428076 ALLERGIES No Information ENCOUNTERS Encounter Location Date Diagnosis [facility] [address] [facility] [id number] [address] [place] [address] Feb, [facility] [address] [facility] [id number] [address] [place] [address] Feb, [facility] [address] [place] [id number] [address] [place] [address] Feb, [facility] [address] [facility] [id number] [address] [place] [id number] Jan, [facility] [address] [address] Jan, Generalized anxiety disorder F41.1 and Major depressive disorder, recurrent episode, mild degree F33.0 [facility] [address] [place] [id number] [address] [place] [address] Jan, [facility] [address] [address] Jan, Generalized anxiety disorder F41.1 [facility] [address] [facility] [id number] [address] [place] [address] Jan, Oral abscess K12.2 and BMI 5 0.0-59.9, adult Z68.43 [facility] [address] [place] [address] Dec, BMI 50.0-59.9, adult Z68.43 and Weight loss counseling, encounter for Z71.3 [facility] [address] [place] [id number] [address] [place] [address] Dec, [facility] [address] [place] [id number] [address] [place] [address] Dec, [facility] [address] [place] [id number] [address] [place] [address] November, [facility] [address] [place] [id number] [address] [place] [address] November, [facility] [address] [address] November, Pulmonary emphysema, unspeci fied emphysema type J43.9 ; Restrictive lung disease J98.4 ; BMI 50.0-59.9, adult Z68.43 ; History of renal cell cancer Z85.528 ; Essential hypertension I10 ; Mixed hyperlipidemia E78.2 and Fatty liver K76.0 [place] [address] [place] [id number] [place] [address] November, Generalized anxiety disorder F41.1 [place] [address] [address] November, Generalized anxiety disorder F41.1 and Major depressive disorder, recurrent episode, mild degree F33.0 [place] [address] [place] [id number] [place] [address] November, Generalized anxiety disorder F41.1 ; Major depressive disorder, recurrent episode, mild degree F33.0 and Habitual self-excoriation F42.4 [place] [address] [place] [id number] [address] [place] [address] November, [place] [address] [place] [id number] [place] [address] Oct, Generalized anxiety disorder F41.1 [place] [address] [place] [id number] [address] [place] [address] Oct, [place] [address] [address] Oct, Influenza-like illness R69 [place] [address] [place] [id number] [place] [address] Sep, Influenza-like illness R69 [place] [address] [place] [id number] [place] [address] Sep, Generalized anxiety disorder F41.1 [facility] [address] [place] [id number] [address] [place] [address] Sep, [facility] [address] [place] [id number] [address] [place] [address] Aug, [facility] [address] [place] [address] Aug, [facility] [address] [place] [id number] [address] [place] [address] Aug, Generalized anxiety disorder F41.1 [facility] [address] [place] [id number] [address] [place] [address] Aug, Influenza-like illness R69 a nd BMI 50.0-59.9, adult Z68.43 [facility] [address] [place] [id number] [address] [place] [address] Jul, Fatty liver K76.0 ; Restrict jean-paul lung disease J98.4 ; Diastolic dysfunction I51.9 ; Body mass index (bmi) 50-59.9 , adult Z68.43 and Chronic prescription opiate use Z79.899 [facility] [address] [place] [id number] [address] [place] [address] Jul, Generalized anxiety disorder F41.1 [facility] [address] [place] [address] Jul, Generalized anxiety disorder F41.1 [facility] [address] [place] [id number] [address] [place] [address] Jul, Primary osteoarthritis invol ving multiple joints M15.0 [facility] [address] [place] [id number] [address] [place] [address] Jun, Generalized anxiety disorder F41.1 [facility] [address] [place] [id number] [address] [place] [address] Jun, [facility] [address] [place] [address] Jun, Mixed hyperlipidemia E78.2 [facility] [address] [facility] [id number] [address] [place] [address] Jun, Generalized anxiety disorder F41.1 [facility] [address] [facility] [id number] [address] [place] [address] Jun, Generalized anxiety disorder F41.1 ; Major depressive disorder, recurrent episode, mild degree F33.0 and Habitual self-excoriation F42.4 [facility] [address] [facility] [id number] [address] [place] [address] May, [facility] [address] [facility] [id number] [address] [place] [address] May, Generalized anxiety disorder F41.1 [facility] [address] [facility] [id number] [address] [place] [address] May, Generalized anxiety disorder F41.1 [facility] [address] [facility] [id number] [address] [place] [address] May, Primary osteoarthritis invol ving multiple joints M15.0 [facility] [address] [facility] [id number] [address] [place] [address] Apr, Major depressive disorder, r ecurrent episode, mild degree F33.0 ; Generalized anxiety disorder F41.1 and Excoriation, neurotic L98.1 [facility] [address] [facility] [id number] [address] [place] [address] Apr, Primary osteoarthritis invol ving multiple joints M15.0 [facility] [address] [facility] [id number] [address] [place] [address] Apr, Essential hypertension I10 a nd Mixed hyperlipidemia E78.2 [facility] [address] [facility] [id number] [address] [place] [address] Apr, Generalized anxiety disorder F41.1 ; Major depressive disorder, recurrent episode, mild degree F33.0 and Habitual self-excoriation F42.4 [facility] [address] [id number] [address] [place] [address] 06 Mar, 2017 Generalized anxiety disorder F41.1 ; Major depressive disorder, recurrent episode, mild degree F33.0 and Habitual self-excoriation F42.4 [facility] [address] [id number] [address] [place] [address] Mar, Skin lesion L98.9 [facility] [address] [id number] [address] [place] [address] 05 Mar, 2017 Primary osteoarthritis invol ving multiple joints M15.0 [facility] [address] [id number] [address] [place] [address] Mar, [facility] [address] [id number] [address] [place] [address] Mar, [place] [address] [id number] [address] [place] [address] Feb, Major depressive disorder, r ecurrent episode, mild degree F33.0 ; Generalized anxiety disorder F41.1 and Excoriation, neurotic L98.1 [facility] [address] [id number] [address] [place] [address] Feb, Generalized anxiety disorder F41.1 [place] [address] [id number] [address] [place] [address] Feb, Primary osteoarthritis invol ving multiple joints M15.0 [facility] [address] [id number] [address] [place] [address] Jan, [facility] [address] [facility] [id number] [address] [place] [address] Jan, Essential hypertension I10 ; Splenic artery aneurysm I72.8 ; Liver mass R16.0 ; Restrictive lung disease J98.4 ; Primary osteoarthritis involving multiple joints M15.0 ; Mixed hyperlipidemia E78.2 ; Bilateral carpal tunnel syndrome G56.03 ; Body mass index (bmi) 50-59.9 , adult Z68.43 and History of tobacco use Z87.891 [facility] [address] [id number] [address] [place] [address] Jan, Major depressive disorder, r ecurrent episode, mild degree F33.0 and Generalized anxiety disorder F41.1 [facility] [address] [id number] [address] [place] [address] Jan, [facility] [address] [id number] [address] [place] [address] Jan, Generalized anxiety disorder F41.1 and Major depressive disorder, recurrent episode, mild degree F33.0 [facility] [address] [id number] [address] [place] [address] Dec, Primary osteoarthritis invol ving multiple joints M15.0 [facility] [address] [id number] [address] [place] [address] Dec, Generalized anxiety disorder F41.1 [facility] [address] [id number] [address] [place] [address] Dec, [facility] [address] [id number] [address] [place] [address] Dec, Major depressive disorder, r ecurrent episode, mild degree F33.0 and Generalized anxiety disorder F41.1 [facility] [address] [id number] [address] [place] [address] Dec, Generalized anxiety disorder F41.1 and Major depressive disorder, recurrent episode, mild degree F33.0 [facility] [address] [id number] [address] [place] [address] November, Mild major depression F32.0 and Primary osteoarthritis involving multiple joints M15.0 [facility] [address] [id number] [address] [place] [address] November, Major depressive disorder, r ecurrent episode, mild degree F33.0 and Generalized anxiety disorder F41.1 [facility] [address] [id number] [address] [place] [address] November, Primary osteoarthritis invol ving multiple joints M15.0 ; Essential hypertension I10 ; Prediabetes R73.09 ; Mixed hyperlipidemia E78.2 ; Chronic prescription benzodiazepine use Z79.899 ; Chronic prescription opiate use Z79.899 ; Tobacco use Z72.0 ; Bilateral carpal tunnel syndrome G56.03 and Body mass index (bmi) 50-59.9 , adult Z68.43 [place] [address] [address] November, Primary osteoarthritis invol ving multiple joints M15.0 and Mild major depression F32.0 [facility] [address] [place] [id number] [address] [place] [address] Oct, [place] [address] [address] Oct, Primary osteoarthritis invol ving multiple joints M15.0 ; Essential hypertension I10 ; Prediabetes R73.09 ; Chronic prescription benzodiazepine use Z79.899 ; Chronic prescription opiate use Z79.899 ; Tobacco use Z72.0 ; Mixed hyperlipidemia E78.2 ; Bilateral carpal tunnel syndrome G56.03 ; Body mass index (bmi) 50-59.9 , adult Z68.43 and Encounter for immunization Z23 [place] [address] [place] [id number] [place] [address] Oct, Major depressive disorder, r ecurrent episode, mild degree F33.0 and Generalized anxiety disorder F41.1 [place] [address] [place] [address] Oct, [facility] [address] [place] [id number] [address] [place] [address] Oct, [facility] [address] [place] [id number] [address] [place] [address] Sep, Mild major depression F32.0 [facility] [address] [place] [id number] [address] [place] [address] Sep, [facility] [address] [place] [id number] [address] [place] [address] Sep, Mild major depression F32.0 and Generalized anxiety disorder F41.1 [place] [address] [place] [address] Sep, Paresthesia of both hands R2 0.2 and Cervical radiculopathy M54.12 [place] [address] [address] Sep, [place] [address] [address] Sep, [place] [address] [address] Aug, Paresthesia of both hands R2 0.2 and Neck pain M54.2 [place] [address] [address] Aug, [place] [address] [address] Jul, Neck pain M54.2 and Paresthe eddie of both hands R20.2 [place] [address] [address] Jul, Proteinuria, unspecified typ e R80.9 [place] [address] [address] Jul, Proteinuria, unspecified typ e R80.9 [place] [address] [address] Jul, [place] [address] [address] Jul, Other specified transient ce rebral ischemias G45.8 [place] [address] [place] [id number] [place] [address] Jun, Diastolic dysfunction I51.9 [place] [address] [address] Jun, Diastolic dysfunction I51.9 [facility] [address] [place] [id number] [address] [place] [address] Jun, Major depressive disorder, s david episode, unspecified F32.9 and Anxiety disorder, unspecified F41.9 [facility] [address] [address] Jun, [facility] [address] [address] Jun, [facility] [address] [address] May, Moderate major depression F3 2.1 and Generalized anxiety disorder F41.1 [place] [address] [place] [id number] [place] [address] 16 May, 2016 Major depressive disorder, s david episode, unspecified F32.9 and Anxiety disorder, unspecified F41.9 [place] [address] [address] 15 May, 2016 [place] [address] [address] 14 May, 2016 Liver enzyme elevation R74.8 [place] [address] [address] 14 May, 2016 Liver enzyme elevation R74.8 [place] [address] [address] 10 May, 2016 Shortness of breath on exert ion R06.02 ; Essential hypertension I10 ; Mixed hyperlipidemia E78.2 and Tobacco use Z72.0 [place] [address] [address] 03 May, 2016 [facility] [address] [place] [id number] [address] [place] [address] 02 May, 2016 [place] [address] [address] Apr, Anxiety F41.9 and Depression F32.9 [facility] [address] [id number] [address] [place] [address] Apr, [facility] [address] [id number] [address] [place] [address] Apr, [facility] [address] [id number] [address] [place] [address] Mar, Depression F32.9 and Anxiety F41.9 [facility] [address] [id number] [address] [place] [address] 08 Mar, 2016 Anxiety F41.9 and Depression F32.9 [facility] [address] [id number] [address] [place] [address] Mar, Well woman exam (no gynecolo gical exam) Z00.00 [facility] [address] [id number] [address] [place] [address] Mar, [facility] [address] [id number] [address] [place] [address] Mar, [facility] [address] [id number] [address] [place] [id number] Feb, Dental caries K02.9 [facility] [address] [id number] [address] [place] [address] Feb, [facility] [address] [id number] [address] [place] [address] Feb, Anxiety F41.9 and Depression F32.9 [facility] [address] [id number] [address] [place] [id number] Feb, Dental examination Z01.20 [facility] [address] [id number] [address] [place] [address] Feb, [facility] [address] [id number] [address] [place] [address] Feb, [facility] [address] [id number] [address] [place] [address] Feb, Anxiety F41.9 and Depression F32.9 [facility] [address] [id number] [address] [place] [address] Jan, Severe episode of recurrent major depressive disorder, without psychotic features F33.2 and Anxiety disorder, unspecified F41.9 [facility] [address] [id number] [address] [place] [address] Jan, [facility] [address] [id number] [address] [place] [address] Dec, [facility] [address] [id number] [address] [place] [address] Dec, Anxiety F41.9 and Depression F32.9 [place] [address] [id number] [address] [place] [address] Dec, Other specified transient ce rebral ischemias G45.8 and Nocturnal hypoxia G47.34 [facility] [address] [id number] [address] [place] [address] Dec, [facility] [address] [id number] [address] [place] [address] Dec, Other specified transient ce rebral ischemias G45.8 [facility] [address] [id number] [address] [place] [address] 16 Dec, 2015 Severe episode of recurrent major depressive disorder, without psychotic features F33.2 and Anxiety disorder, unspecified F41.9 [facility] [address] [id number] [address] [place] [address] Dec, [facility] [address] [id number] [address] [place] [address] Dec, Anxiety F41.9 and Depression F32.9 [facility] [address] [id number] [address] [place] [address] Dec, Anxiety F41.9 and Depression F32.9 [place] [id number] [facility] [id number] [address] [place] [address] Dec, [place] [address] [facility] [id number] [address] [place] [address] November, Anxiety F41.9 and Depression F32.9 [place] [address] [facility] [id number] [address] [place] [address] November, Severe episode of recurrent major depressive disorder, without psychotic features F33.2 [place] [address] [facility] [id number] [address] [place] [address] November, Mixed hyperlipidemia E78.2 [place] [address] [facility] [id number] [address] [place] [address] November, Anxiety F41.9 and Depression F32.9 [place] [address] [place] [id number] [address] [place] [address] November, Prediabetes R73.09 ; Essenti al hypertension I10 ; Anxiety F41.9 ; Depression F32.9 ; Gastroesophageal reflux disease, esophagitis presence not specified K21.9 ; Primary osteoarthritis involving multiple joints M15.0 ; History of renal cell cancer Z85.528 ; Postnasal drip R09.82 ; Allergic rhinitis, unspecified J30.9 and Tobacco use Z72.0 [place] [address] [place] [id number] [address] [place] [phone] Oct, Anxiety F41.9 and Depression F32.9 [place] [address] [address] [facility] [id number] [address] [place] [id number] Oct, [place] [address] [address] [facility] [id number] [address] [place] [id number] Oct, [place] [address] [place] [id number] [address] [place] [id number] 14 Sep, 2015 Splenic artery aneurysm I72. 8 [place] [address] [address] [facility] [id number] [address] [place] [id number] Sep, Depression F32.9 ; Anxiety F 41.9 ; Chronic prescription benzodiazepine use Z79.899 and Splenic artery aneurysm I72.8 [facility] [address] [id number] 10 Sep, 2015 Depression F32.9 and Anxiety F41.9 [facility] [address] [id number] Sep, [facility] [address] [id number] Aug, Dehydration E86.0 ; Diarrhea R19.7 ; Nausea R11.0 and Generalized abdominal pain R10.84 [facility] [address] [phone] Aug, [facility] [address] [id number] Jul, Depression F32.9 [facility] [address] [id number] Jul, [facility] [address] [address] Jul, Anxiety F41.9 and Depression F32.9 [facility] [address] [place] [id number] [place] [id number] Jul, [facility] [address] [id number] Jun, Epigastric pain R10.13 [facility] [address] [place] [id number] [address] [place] [phone] Jun, [facility] [address] [id number] Jun, [facility] [address] [place] [place] [id number] [address] [place] [phone] May, [facility] [address] [id number] May, [facility] [address] [id number] [address] [place] [id number] Apr, [facility] [address] [id number] [address] [place] [phone] Mar, Anxiety state, unspecified 3 00.00 ; Depression 311 ; Prediabetes 790.29 ; Generalized osteoarthrosis, involving multiple sites 715.09 and Hypertension 401.9 [facility] [address] [id number] [address] [place] [id number] Mar, [facility] [address] [id number] [address] [place] [phone] Feb, [facility] [address] [facility] [id number] [address] [place] [phone] Jan, [facility] [address] [facility] [id number] [address] [place] [phone] Jan, [facility] [address] [facility] [id number] [address] [place] [phone] Jan, Generalized osteoarthrosis, involving multiple sites 715.09 [facility] [address] [id number] [address] [place] [id number] Jan, Hx of renal cell cancer V10. 52 [facility] [address] [id number] [address] [place] [id number] Dec, Generalized osteoarthrosis, involving multiple sites 715.09 and Hx of renal cell cancer V10.52 [facility] [address] [id number] [address] [place] [phone] Dec, [facility] [address] [facility] [id number] [address] [place] [phone] Dec, [facility] [address] [facility] [id number] [address] [place] [phone] November, [facility] [address] [facility] [id number] [address] [place] [phone] Oct, [facility] [address] [id number] [address] [place] [id number] Oct, [facility] [address] [id number] [address] [place] [phone] Sep, [facility] [address] [id number] [address] [place] [phone] Sep, [facility] [address] [id number] [address] [place] [phone] Sep, [facility] [address] [id number] [address] [place] [phone] Sep, [facility] [address] [facility] [id number] [address] [place] [phone] Aug, [facility] [address] [facility] [id number] [address] [place] [phone] Aug, IMMUNIZATIONS No Known Immunizations SOCIAL HISTORY Never Assessed REASON FOR VISIT Controlled Medication Refill- Due 10/02/17 PLAN OF CARE VITAL SIGNS MEDICATIONS Medication [...]
--- OUTSIDE RECORDS SUMMARY | 2020-02-08 07:21 | XMS REPORT ---
Author Author Emilee MAY Organization [facility] Address [address] [place] [address] Care Team Providers Care Tile Mechanic Name Role Phone LALOSTEPHANI CONSTANTINOY Unavailable PROBLEMS Type Condition ICD9-CM Code ULR22-FL Code Onset Dates Condition S tatus SNOMED Code Problem Mixed hyperlipidemia E78.2 Active 880129828 Problem Chronic prescription opiate use Z79.899 Active 497642425 Problem Fatty liver K76.0 Active 79884320 7 Problem Tobacco use Z72.0 Active 40998614 0 Problem Obstructive sleep apnea G47.33 Active 19286786 Problem Allergic rhinitis, unspecified J30.9 Active 94810132 Problem Diastolic dysfunction I51.9 Active 6834613 Problem History of renal cell cancer Z85.528 A ctive 412877694 Problem Excoriation, neurotic L98.1 Active 21273553 Problem History of tobacco use Z87.891 Active 5548067150059 Problem Liver mass R16.0 Active 806199877 Problem Prediabetes R73.09 Active 0292959 Problem Essential hypertension I10 Active 08427845 Problem Body mass index (bmi) 50-59.9 , adult Z68.43 Active 349947024 Problem Paresthesia of both hands R20.2 Acti ve 944845729 Problem Generalized anxiety disorder F41.1 A ctive 76453098 Problem Major depressive disorder, recurrent episode, mild degree F33.0 Active 345455351 Problem 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 Active 431281998 Problem Pulmonary emphysema, unspecified emphysema type J4 3.9 Active 76932367 Problem Splenic artery aneurysm I72.8 Active 72463819 Problem Restrictive lung disease J98.4 Activ e 73445591 Problem Bilateral carpal tunnel syndrome G56.03 Active 19110996 Problem Chronic prescription benzodiazepine use Z79.899 Active 484774816 Problem Primary osteoarthritis involving multiple joints M 15.0 Active 998240003 Problem Isolated proteinuria without specific morphologic lesion R80.0 Active 73883465 ALLERGIES No Known Allergies ENCOUNTERS Encounter Location Date Diagnosis [facility] [id number] [place] [address] November, [facility] [address] [facility] [id number] [address] [place] [address] November, [facility] [address] [address] November, [facility] [id number] [place] [address] Oct, Generalized anxiety disorder F41.1 [facility] [address] [address] Oct, [facility] [address] [id number] [address] [place] [phone] Oct, Influenza-like illness R69 [facility] [id number] [place] [address] Sep, Influenza-like illness R69 [facility] [id number] [place] [address] Sep, Generalized anxiety disorder F41.1 [facility] [address] [id number] [address] [place] [phone] Sep, [facility] [address] [place] [phone] Aug, [facility] [address] [place] [address] Aug, [facility] [id number] [place] [address] Aug, Generalized anxiety disorder F41.1 [facility] [address] [facility] [id number] [address] [place] [phone] Aug, Influenza-like illness R69 a nd BMI 50.0-59.9, adult Z68.43 [facility] [address] [facility] [id number] [address] [place] [address] Jul, Fatty liver K76.0 ; Restrict jean-paul lung disease J98.4 ; Diastolic dysfunction I51.9 ; Body mass index (bmi) 50-59.9 , adult Z68.43 and Chronic prescription opiate use Z79.899 [facility] [address] [facility] [id number] [address] [place] [address] Jul, Generalized anxiety disorder F41.1 [facility] [address] [facility] [id number] [address] [place] [address] Jul, Generalized anxiety disorder F41.1 [place] [id number] [place] [address] Jul, Primary osteoarthritis invol ving multiple joints M15.0 [facility] [address] [facility] [id number] [address] [place] [address] Jun, Generalized anxiety disorder F41.1 [place] [id number] [place] [phone] Jun, [place] [id number] [place] [address] Jun, Mixed hyperlipidemia E78.2 [facility] [address] [facility] [id number] [address] [place] [address] Jun, Generalized anxiety disorder F41.1 [facility] [address] [facility] [id number] [address] [place] [address] Jun, Generalized anxiety disorder F41.1 ; Major depressive disorder, recurrent episode, mild degree F33.0 and Habitual self-excoriation F42.4 [facility] [address] [facility] [id number] [address] [place] [address] May, [facility] [address] [facility] [id number] [address] [place] [address] May, Generalized anxiety disorder F41.1 [facility] [address] [facility] [id number] [address] [place] [address] May, Generalized anxiety disorder F41.1 [facility] [address] [id number] [address] [place] [address] May, Primary osteoarthritis invol ving multiple joints M15.0 [facility] [address] [id number] [address] [place] [address] Apr, Major depressive disorder, r ecurrent episode, mild degree F33.0 ; Generalized anxiety disorder F41.1 and Excoriation, neurotic L98.1 [facility] [address] [id number] [address] [place] [address] Apr, Primary osteoarthritis invol ving multiple joints M15.0 [facility] [address] [id number] [address] [place] [address] Apr, Essential hypertension I10 a nd Mixed hyperlipidemia E78.2 [facility] [address] [id number] [address] [place] [phone] Apr, Generalized anxiety disorder F41.1 ; Major depressive disorder, recurrent episode, mild degree F33.0 and Habitual self-excoriation F42.4 [facility] [address] [id number] [address] [place] [address] Mar, Generalized anxiety disorder F41.1 ; Major depressive disorder, recurrent episode, mild degree F33.0 and Habitual self-excoriation F42.4 [facility] [address] [id number] [address] [place] [address] Mar, Skin lesion L98.9 [facility] [address] [id number] [address] [place] [phone] Mar, Primary osteoarthritis invol ving multiple joints M15.0 [facility] [address] [id number] [address] [place] [phone] Mar, [facility] [address] [id number] [address] [place] [address] Mar, [facility] [id number] [address] [place] [address] Feb, Major depressive disorder, r ecurrent episode, mild degree F33.0 ; Generalized anxiety disorder F41.1 and Excoriation, neurotic L98.1 [place] [id number] [place] [address] Feb, Generalized anxiety disorder F41.1 [place] [id number] [address] [place] [phone] Feb, Primary osteoarthritis invol ving multiple joints M15.0 [place] [id number] [place] [address] Jan, [place] [id number] [place] [address] Jan, Essential hypertension I10 ; Splenic artery aneurysm I72.8 ; Liver mass R16.0 ; Restrictive lung disease J98.4 ; Primary osteoarthritis involving multiple joints M15.0 ; Mixed hyperlipidemia E78.2 ; Bilateral carpal tunnel syndrome G56.03 ; Body mass index (bmi) 50-59.9 , adult Z68.43 and History of tobacco use Z87.891 [place] [id number] [place] [address] Jan, Major depressive disorder, r ecurrent episode, mild degree F33.0 and Generalized anxiety disorder F41.1 [place] [id number] [place] [address] Jan, [place] [id number] [place] [address] Jan, Generalized anxiety disorder F41.1 and Major depressive disorder, recurrent episode, mild degree F33.0 [place] [id number] [place] [address] Dec, Primary osteoarthritis invol ving multiple joints M15.0 [place] [id number] [place] [address] Dec, Generalized anxiety disorder F41.1 [facility] [address] [facility] [id number] [address] [place] [phone] Dec, [facility] [address] [facility] [id number] [address] [place] [phone] Dec, Major depressive disorder, r ecurrent episode, mild degree F33.0 and Generalized anxiety disorder F41.1 [facility] [address] [facility] [id number] [address] [place] [address] Dec, Generalized anxiety disorder F41.1 and Major depressive disorder, recurrent episode, mild degree F33.0 [place] [address] [facility] [id number] [address] [place] [phone] November, Mild major depression F32.0 and Primary osteoarthritis involving multiple joints M15.0 [place] [address] [facility] [id number] [address] [place] [address] November, Major depressive disorder, r ecurrent episode, mild degree F33.0 and Generalized anxiety disorder F41.1 [place] [address] [facility] [id number] [address] [place] [address] November, Primary osteoarthritis invol ving multiple joints M15.0 ; Essential hypertension I10 ; Prediabetes R73.09 ; Mixed hyperlipidemia E78.2 ; Chronic prescription benzodiazepine use Z79.899 ; Chronic prescription opiate use Z79.899 ; Tobacco use Z72.0 ; Bilateral carpal tunnel syndrome G56.03 and Body mass index (bmi) 50-59.9 , adult Z68.43 [place] [address] [facility] [id number] [address] [place] [address] November, Primary osteoarthritis invol ving multiple joints M15.0 and Mild major depression F32.0 [place] [address] [facility] [id number] [address] [place] [address] Oct, [facility] [address] [facility] [id number] [address] [place] [address] Oct, Primary osteoarthritis invol ving multiple joints M15.0 ; Essential hypertension I10 ; Prediabetes R73.09 ; Chronic prescription benzodiazepine use Z79.899 ; Chronic prescription opiate use Z79.899 ; Tobacco use Z72.0 ; Mixed hyperlipidemia E78.2 ; Bilateral carpal tunnel syndrome G56.03 ; Body mass index (bmi) 50-59.9 , adult Z68.43 and Encounter for immunization Z23 [facility] [address] [facility] [id number] [address] [place] [phone] 17 Oct, 2016 Major depressive disorder, r ecurrent episode, mild degree F33.0 and Generalized anxiety disorder F41.1 [facility] [address] [id number] [address] [place] [phone] Oct, [place] [address] [facility] [id number] [address] [place] [address] Oct, [place] [address] [facility] [id number] [address] [place] [address] Sep, Mild major depression F32.0 [facility] [address] [facility] [id number] [address] [place] [phone] Sep, [facility] [address] [facility] [id number] [address] [place] [address] Sep, Mild major depression F32.0 and Generalized anxiety disorder F41.1 [place] [address] [facility] [id number] [address] [place] [phone] Sep, Paresthesia of both hands R2 0.2 and Cervical radiculopathy M54.12 [facility] [address] [facility] [id number] [address] [place] [phone] Sep, [place] [address] [facility] [id number] [address] [place] [phone] Sep, [place] [address] [facility] [id number] [address] [place] [address] Aug, Paresthesia of both hands R2 0.2 and Neck pain M54.2 [place] [address] [facility] [id number] [address] [place] [address] Aug, [facility] [address] [facility] [id number] [address] [place] [address] Jul, Neck pain M54.2 and Paresthe eddie of both hands R20.2 [facility] [address] [facility] [id number] [address] [place] [address] Jul, Proteinuria, unspecified typ e R80.9 [facility] [address] [facility] [id number] [address] [place] [address] Jul, Proteinuria, unspecified typ e R80.9 [facility] [address] [facility] [id number] [address] [place] [address] Jul, [facility] [address] [facility] [id number] [address] [place] [phone] Jul, Other specified transient ce rebral ischemias G45.8 [facility] [address] [facility] [id number] [address] [place] [address] Jun, Diastolic dysfunction I51.9 [facility] [address] [facility] [id number] [address] [place] [phone] Jun, Diastolic dysfunction I51.9 [facility] [address] [facility] [id number] [address] [place] [address] Jun, Major depressive disorder, s david episode, unspecified F32.9 and Anxiety disorder, unspecified F41.9 [facility] [address] [facility] [id number] [address] [place] [phone] Jun, [facility] [address] [facility] [id number] [address] [place] [address] Jun, [place] [address] [facility] [id number] [address] [place] [address] May, Moderate major depression F3 2.1 and Generalized anxiety disorder F41.1 [facility] [address] [facility] [id number] [address] [place] [phone] May, Major depressive disorder, s david episode, unspecified F32.9 and Anxiety disorder, unspecified F41.9 [facility] [address] [facility] [id number] [address] [place] [phone] 15 May, 2016 [facility] [address] [facility] [id number] [address] [place] [address] 14 May, 2016 Liver enzyme elevation R74.8 [facility] [address] [facility] [id number] [address] [place] [phone] 14 May, 2016 Liver enzyme elevation R74.8 [facility] [address] [facility] [id number] [address] [place] [phone] 10 May, 2016 Shortness of breath on exert ion R06.02 ; Essential hypertension I10 ; Mixed hyperlipidemia E78.2 and Tobacco use Z72.0 [place] [address] [id number] [place] [address] 03 May, 2016 [facility] [id number] [place] [address] May, [facility] [id number] [place] [address] Apr, Anxiety F41.9 and Depression F32.9 [facility] [address] [facility] [id number] [address] [place] [address] Apr, [facility] [id number] [place] [address] Apr, [facility] [address] [facility] [id number] [address] [place] [address] Mar, Depression F32.9 and Anxiety F41.9 [place] [address] [facility] [id number] [address] [place] [phone] 08 Mar, 2016 Anxiety F41.9 and Depression F32.9 [facility] [address] [facility] [id number] [address] [place] [phone] 06 Mar, 2016 Well woman exam (no gynecolo gical exam) Z00.00 [facility] [address] [id number] [address] [place] [address] Mar, [facility] [address] [id number] [address] [place] [phone] Mar, [facility] [address] [id number] [address] [place] [id number] Feb, Dental caries K02.9 [facility] [address] [id number] [address] [place] [address] Feb, [facility] [address] [id number] [address] [place] [address] Feb, Anxiety F41.9 and Depression F32.9 [facility] [address] [id number] [address] [place] [address] [id number] Feb, Dental examination Z01.20 [facility] [address] [id number] [address] [place] [phone] Feb, [facility] [address] [id number] [address] [place] [address] Feb, [facility] [address] [id number] [address] [place] [address] Feb, Anxiety F41.9 and Depression F32.9 [facility] [address] [id number] [address] [place] [address] Jan, Severe episode of recurrent major depressive disorder, without psychotic features F33.2 and Anxiety disorder, unspecified F41.9 [facility] [address] [id number] [address] [place] [phone] Jan, [facility] [address] [id number] [address] [place] [address] Dec, [facility] [address] [id number] [address] [place] [address] Dec, Anxiety F41.9 and Depression F32.9 [facility] [address] [id number] [address] [place] [phone] 24 Dec, 2015 Other specified transient ce rebral ischemias G45.8 and Nocturnal hypoxia G47.34 [facility] [address] [id number] [address] [place] [phone] 18 Dec, 2015 [facility] [address] [id number] [address] [place] [phone] 17 Dec, 2015 Other specified transient ce rebral ischemias G45.8 [facility] [address] [id number] [address] [place] [phone] 16 Dec, 2015 Severe episode of recurrent major depressive disorder, without psychotic features F33.2 and Anxiety disorder, unspecified F41.9 [place] [address] [id number] [address] [place] [address] 13 Dec, 2015 [place] [address] [facility] [id number] [address] [place] [address] Dec, Anxiety F41.9 and Depression F32.9 [place] [address] [id number] [address] [place] [phone] 07 Dec, 2015 Anxiety F41.9 and Depression F32.9 [place] [address] [id number] [address] [place] [address] Dec, [facility] [address] [id number] [address] [place] [address] November, Anxiety F41.9 and Depression F32.9 [facility] [address] [id number] [address] [place] [address] November, Severe episode of recurrent major depressive disorder, without psychotic features F33.2 [facility] [address] [facility] [id number] [address] [place] [address] November, Mixed hyperlipidemia E78.2 [facility] [address] [id number] [address] [place] [address] November, Anxiety F41.9 and Depression F32.9 [place] [address] [address] 05 Nov, 2015 Prediabetes R73.09 ; Essenti al hypertension I10 ; Anxiety F41.9 ; Depression F32.9 ; Gastroesophageal reflux disease, esophagitis presence not specified K21.9 ; Primary osteoarthritis involving multiple joints M15.0 ; History of renal cell cancer Z85.528 ; Postnasal drip R09.82 ; Allergic rhinitis, unspecified J30.9 and Tobacco use Z72.0 [place] [address] [phone] Oct, Anxiety F41.9 and Depression F32.9 [place] [address] [address] Oct, [place] [address] [address] Oct, [place] [address] [id number] 14 Sep, 2015 Splenic artery aneurysm I72. 8 [place] [address] [id number] 10 Sep, 2015 Depression F32.9 ; Anxiety F 41.9 ; Chronic prescription benzodiazepine use Z79.899 and Splenic artery aneurysm I72.8 [place] [address] [id number] 10 Sep, 2015 Depression F32.9 and Anxiety F41.9 [place] [address] [address] Sep, [place] [address] [address] 18 Aug, 2015 Dehydration E86.0 ; Diarrhea R19.7 ; Nausea R11.0 and Generalized abdominal pain R10.84 [place] [address] [address] 03 Aug, 2015 [place] [address] [address] Jul, Depression F32.9 [facility] [address] [id number] [address] [place] [address] Jul, [facility] [address] [facility] [id number] [address] [place] [phone] Jul, Anxiety F41.9 and Depression F32.9 [facility] [address] [id number] [address] [place] [phone] Jul, [facility] [address] [id number] [address] [place] [phone] Jun, Epigastric pain R10.13 [facility] [address] [id number] [address] [place] [phone] Jun, [facility] [address] [facility] [id number] [address] [place] [phone] Jun, [facility] [address] [facility] [id number] [address] [place] [phone] May, [facility] [address] [id number] [address] [place] [address] May, [facility] [address] [facility] [id number] [address] [place] [address] Apr, [facility] [address] [facility] [id number] [address] [place] [address] Mar, Anxiety state, unspecified 3 00.00 ; Depression 311 ; Prediabetes 790.29 ; Generalized osteoarthrosis, involving multiple sites 715.09 and Hypertension 401.9 [facility] [address] [id number] [address] [place] [phone] Mar, [facility] [address] [facility] [id number] [address] [place] [phone] Feb, [facility] [address] [facility] [id number] [address] [place] [phone] Jan, [facility] [address] [id number] [address] [place] [id number] 09 Jan, 2015 [facility] [address] [id number] [address] [place] [phone] Jan, Generalized osteoarthrosis, involving multiple sites 715.09 [facility] [address] [id number] [address] [place] [id number] 07 Jan, 2015 Hx of renal cell cancer V10. 52 [facility] [facility] [address] [id number] [address] [place] [phone] Dec, Generalized osteoarthrosis, involving multiple sites 715.09 and Hx of renal cell cancer V10.52 [facility] [address] [id number] [address] [place] [phone] Dec, [facility] [address] [id number] [address] [place] [phone] Dec, [facility] [address] [id number] [address] [place] [phone] November, [facility] [address] [id number] [address] [place] [phone] Oct, [facility] [address] [id number] [address] [place] [phone] Oct, [facility] [address] [id number] [address] [place] [phone] Sep, [facility] [address] [id number] [address] [place] [phone] Sep, [facility] [address] [id number] [address] [place] [phone] Sep, [facility] [address] [id number] [address] [place] [phone] Sep, [facility] [address] [id number] [address] [place] [phone] Aug, [facility] [address] [id number] [address] [place] [phone] Aug, IMMUNIZATIONS No Known Immunizations SOCIAL HISTORY Never Assessed REASON FOR VISIT rash on arm and legs, Rash to arms and legs x1 years. States Mehnaz Reynolds in wanted her to have these checked out. She thinks it may be stress-DURAN Lowery PLAN OF CARE Activity Details Follow Up prn Reason: VITAL SIGNS Height 62 in 2017-04-02 Weight 286 lbs 2017-04-02 Temperature 98.4 degrees Fahrenheit 2017-04-02 Heart Rate 90 bpm 2017-04-02 Respiratory Rate 20 2017-04-02 BMI 52.30 kg/m2 2017-04-02 Blood pressure systolic 100 mmHg 2017-04-02 Blood pressure diastolic 60 mmHg 2017-04-02 MEDICATIONS Medication Instructions Dosage Frequency Start Date End Date Duration S tatus BuPROPion HCl ER (XL) 300 MG Orally Once a day 1 tablet in the morning 24h Active Wellbutrin XL 150 MG Orally Once a day (along wit h 300 mg tablet to equal 450 mg daily 1 tablet in the morning Dec, Active Furosemide 20 mg Orally Once a day 1 tablet 24h 30 Active Duloxetine HCl 60 mg Orally Once a day 1 capsule 24h Sep, Active Diazepam 5 mg Orally Once a day at bedtime as needed 0.5 tablet Sep, 30 days Active Remeron 15 mg Orally Once a day 1 tablet at bedtime 24h Dec, Active Omeprazole 20 mg Orally Once a day 2 capsules 24h Jun, 30 day(s) Active Atenolol 50 mg Orally Once a day 1 tablet 24h Active Tizanidine HCl 2 MG Orally every 8 hrs 1 tablet as needed 8h 30 Active Potassium Chloride ER 20 MEQ Orally Once a day 1 tablet with food 24h 30 Active Atorvastatin Calcium 40 mg Orally Once a day 1 tablet 24h Active Hydrocodone-Acetaminophen 5-325 MG Orally 2 times a day as n eeded for pain take 1 tablet Feb, 28 days Active RESULTS Name Result Date Reference Range PDF Report 2017-04-02 PDF Report1 [facility] REPORT 2017-04-02 . . . . Comment: . . . . . PROCEDURES Procedure Date Ordered Result Body Site BIOPSY OF SKIN LESION Apr 02, 2017 INSTRUCTIONS MEDICATIONS ADMINISTERED No Known Medications [...]
--- OUTSIDE RECORDS SUMMARY | 2020-02-08 07:22 | XMS REPORT ---
Author Author Emilee MAY Organization [facility] Address [address] [place] [address] Care Team Providers Care Physical Anthropologist Name Role Phone LALOJEZ CONSTANTINOHANY Unavailable PROBLEMS Type Condition ICD9-CM Code FGC27-UZ Code Onset Dates Condition S tatus SNOMED Code Problem Allergic rhinitis, unspecified J30.9 Active 84935575 Problem Diastolic dysfunction I51.9 Active 6520196 Problem History of renal cell cancer Z85.528 A ctive 195414036 Problem Excoriation, neurotic L98.1 Active 95172247 Problem Prediabetes R73.09 Active 0467793 Problem History of tobacco use Z87.891 Active 3624100893098 Problem Essential hypertension I10 Active 45126091 Problem Obstructive sleep apnea G47.33 Active 90653190 Problem Body mass index (bmi) 50-59.9 , adult Z68.43 Active 898881792 Problem Paresthesia of both hands R20.2 Acti ve 040016579 Problem Generalized anxiety disorder F41.1 A ctive 01661688 Problem Major depressive disorder, recurrent episode, mild degree F33.0 Active 432325149 Problem Restrictive lung disease J98.4 Activ e 51799404 Problem 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 Active 449377714 Problem Liver mass R16.0 Active 734317309 Problem Splenic artery aneurysm I72.8 Active 29278504 Problem Bilateral carpal tunnel syndrome G56.03 Active 98703362 Problem Chronic prescription benzodiazepine use Z79.899 Active 425425324 Problem Mixed hyperlipidemia E78.2 Active 995387907 Problem Primary osteoarthritis involving multiple joints M 15.0 Active 716818276 Problem Chronic prescription opiate use Z79.899 Active 201735940 Problem Fatty liver K76.0 Active 63989731 7 Problem Isolated proteinuria without specific morphologic lesion R80.0 Active 96231975 Problem Tobacco use Z72.0 Active 76908726 0 ALLERGIES Unknown Allergies SOCIAL HISTORY No smoking Hx information available PLAN OF CARE VITAL SIGNS MEDICATIONS Medication Instructions Dosage Frequency Start Date End Date Duration S tatus Diazepam 2.5 MG Orally Once a day 1 tablet as needed at bedtime for anxiety 24h Sep, 28 days Active Tizanidine HCl 2 MG Orally every 8 hrs 1 tablet as needed 8h 30 Active Hydrocodone-Acetaminophen 5-325 MG Orally 2 times a day as n eeded for pain take 1 tablet Sep, 28 days Active RESULTS No Results PROCEDURES No Known procedures IMMUNIZATIONS No Known Immunizations
--- OUTSIDE RECORDS SUMMARY | 2020-02-08 07:22 | XMS REPORT ---
Author Author Emilee AGOSTO Organization [facility] Address [address] [place] [address] Care Team Providers Care Clinical Project Coordinator Name Role Phone AGOSTOMARGA MeadeELE Unavailable PROBLEMS Type Condition ICD9-CM Code BAL65-GK Code Onset Dates Condition S tatus SNOMED Code Problem Mixed hyperlipidemia E78.2 Active 719832525 Problem Fatty liver K76.0 Active 26024438 7 Problem Obstructive sleep apnea G47.33 Active 39295755 Problem Allergic rhinitis, unspecified J30.9 Active 10776191 Problem Essential hypertension I10 Active 38123443 Problem History of renal cell cancer Z85.528 A ctive 741076730 Problem Prediabetes R73.09 Active 5577422 Problem Diastolic dysfunction I51.9 Active 2028644 Problem Body mass index (bmi) 50-59.9 , adult Z68.43 Active 300737875 Problem Paresthesia of both hands R20.2 Acti ve 369436152 Problem Habitual self-excoriation 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 Acti ve 415174434 Problem BMI 50.0-59.9, adult Z68.43 Active 274162518 Problem Restrictive lung disease J98.4 Activ e 89185523 Problem Splenic artery aneurysm I72.8 Active 29569400 Problem Liver mass R16.0 Active 941387781 Problem Generalized anxiety disorder F41.1 A ctive 33098896 Problem Major depressive disorder, recurrent episode, mild degree F33.0 Active 072016078 Problem Excoriation, neurotic L98.1 Active 94261029 Problem History of tobacco use Z87.891 Active 5475473347453 Problem Primary osteoarthritis involving multiple joints M 15.0 Active 677941067 Problem Isolated proteinuria without specific morphologic lesion R80.0 Active 42295456 Problem 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 Active 953415654 Problem Pulmonary emphysema, unspecified emphysema type J4 3.9 Active 00686150 Problem Chronic prescription opiate use Z79.899 Active 545414523 Problem Tobacco use Z72.0 Active 02950881 0 Problem Bilateral carpal tunnel syndrome G56.03 Active 15870325 Problem Chronic prescription benzodiazepine use Z79.899 Active 642227190 ALLERGIES No Information ENCOUNTERS Encounter Location Date Diagnosis [facility] [id number] [place] [address] Feb, [facility] [address] [address] Dec, [facility] [address] [id number] November, [place] [address] [address] November, Pulmonary emphysema, unspeci fied emphysema type J43.9 ; Restrictive lung disease J98.4 ; BMI 50.0-59.9, adult Z68.43 ; History of renal cell cancer Z85.528 ; Essential hypertension I10 ; Mixed hyperlipidemia E78.2 and Fatty liver K76.0 [place] [address] [place] [id number] [place] [address] November, Generalized anxiety disorder F41.1 [place] [address] [address] November, Generalized anxiety disorder F41.1 and Major depressive disorder, recurrent episode, mild degree F33.0 [place] [address] [place] [id number] [place] [address] November, Generalized anxiety disorder F41.1 ; Major depressive disorder, recurrent episode, mild degree F33.0 and Habitual self-excoriation F42.4 [place] [address] [place] [id number] [place] [phone] November, [place] [address] [place] [id number] [place] [phone] Oct, Generalized anxiety disorder F41.1 [place] [address] [place] [id number] [place] [phone] Oct, [facility] [address] [facility] [id number] [address] [place] [id number] Oct, Influenza-like illness R69 [facility] [address] [facility] [id number] [address] [place] [phone] Sep, Influenza-like illness R69 [facility] [address] [facility] [id number] [address] [place] [address] Sep, Generalized anxiety disorder F41.1 [facility] [address] [facility] [id number] [address] [place] [phone] Sep, [facility] [address] [facility] [id number] [address] [place] [phone] Aug, [facility] [address] [facility] [id number] [address] [place] [phone] Aug, [facility] [address] [id number] [address] [place] [phone] Aug, Generalized anxiety disorder F41.1 [facility] [address] [facility] [id number] [address] [place] [phone] Aug, Influenza-like illness R69 a nd BMI 50.0-59.9, adult Z68.43 [facility] [id number] [place] [address] Jul, Fatty liver K76.0 ; Restrict jean-paul lung disease J98.4 ; Diastolic dysfunction I51.9 ; Body mass index (bmi) 50-59.9 , adult Z68.43 and Chronic prescription opiate use Z79.899 [facility] [address] [facility] [id number] [address] [place] [id number] Jul, Generalized anxiety disorder F41.1 [facility] [id number] [place] [address] Jul, Generalized anxiety disorder F41.1 [facility] [id number] [place] [id number] Jul, Primary osteoarthritis invol ving multiple joints M15.0 [facility] [address] [id number] [address] [place] [phone] Jun, Generalized anxiety disorder F41.1 [facility] [address] [id number] [address] [place] [phone] Jun, [facility] [address] [id number] [address] [place] [address] Jun, Mixed hyperlipidemia E78.2 [facility] [address] [id number] [address] [place] [phone] Jun, Generalized anxiety disorder F41.1 [facility] [address] [id number] [address] [place] [address] Jun, Generalized anxiety disorder F41.1 ; Major depressive disorder, recurrent episode, mild degree F33.0 and Habitual self-excoriation F42.4 [facility] [address] [id number] [address] [place] [phone] May, [facility] [address] [id number] [address] [place] [address] May, Generalized anxiety disorder F41.1 [facility] [address] [id number] [address] [place] [phone] May, Generalized anxiety disorder F41.1 [facility] [address] [id number] [address] [place] [address] May, Primary osteoarthritis invol ving multiple joints M15.0 [facility] [address] [id number] [address] [place] [phone] Apr, Major depressive disorder, r ecurrent episode, mild degree F33.0 ; Generalized anxiety disorder F41.1 and Excoriation, neurotic L98.1 [facility] [address] [id number] [address] [place] [address] Apr, Primary osteoarthritis invol ving multiple joints M15.0 [facility] [address] [id number] [address] [place] [phone] Apr, Essential hypertension I10 a nd Mixed hyperlipidemia E78.2 [facility] [address] [id number] [address] [place] [phone] Apr, Generalized anxiety disorder F41.1 ; Major depressive disorder, recurrent episode, mild degree F33.0 and Habitual self-excoriation F42.4 [facility] [address] [id number] [address] [place] [address] Mar, Generalized anxiety disorder F41.1 ; Major depressive disorder, recurrent episode, mild degree F33.0 and Habitual self-excoriation F42.4 [facility] [address] [id number] [address] [place] [address] Mar, Skin lesion L98.9 [facility] [address] [id number] [address] [place] [phone] Mar, Primary osteoarthritis invol ving multiple joints M15.0 [facility] [address] [id number] [address] [place] [phone] Mar, [facility] [address] [id number] [address] [place] [id number] Mar, [facility] [address] [id number] [address] [place] [address] Feb, Major depressive disorder, r ecurrent episode, mild degree F33.0 ; Generalized anxiety disorder F41.1 and Excoriation, neurotic L98.1 [facility] [address] [id number] [address] [place] [address] Feb, Generalized anxiety disorder F41.1 [facility] [address] [id number] [address] [place] [phone] Feb, Primary osteoarthritis invol ving multiple joints M15.0 [facility] [address] [id number] [address] [place] [phone] Jan, [facility] [id number] [place] [phone] Jan, Essential hypertension I10 ; Splenic artery aneurysm I72.8 ; Liver mass R16.0 ; Restrictive lung disease J98.4 ; Primary osteoarthritis involving multiple joints M15.0 ; Mixed hyperlipidemia E78.2 ; Bilateral carpal tunnel syndrome G56.03 ; Body mass index (bmi) 50-59.9 , adult Z68.43 and History of tobacco use Z87.891 [place] [id number] [place] [address] Jan, Major depressive disorder, r ecurrent episode, mild degree F33.0 and Generalized anxiety disorder F41.1 [place] [address] [address] Jan, [place] [address] [address] Jan, Generalized anxiety disorder F41.1 and Major depressive disorder, recurrent episode, mild degree F33.0 [place] [address] [place] [id number] [place] [phone] Dec, Primary osteoarthritis invol ving multiple joints M15.0 [place] [address] [place] [id number] [place] [phone] Dec, Generalized anxiety disorder F41.1 [place] [address] [place] [id number] [place] [phone] Dec, [place] [address] [place] [id number] [place] [phone] Dec, Major depressive disorder, r ecurrent episode, mild degree F33.0 and Generalized anxiety disorder F41.1 [place] [address] [place] [id number] [place] [address] Dec, Generalized anxiety disorder F41.1 and Major depressive disorder, recurrent episode, mild degree F33.0 [place] [address] [place] [id number] [place] [phone] November, Mild major depression F32.0 and Primary osteoarthritis involving multiple joints M15.0 [place] [address] [facility] [id number] [address] [place] [address] November, Major depressive disorder, r ecurrent episode, mild degree F33.0 and Generalized anxiety disorder F41.1 [place] [address] [place] [id number] [place] [address] November, Primary osteoarthritis invol ving multiple joints M15.0 ; Essential hypertension I10 ; Prediabetes R73.09 ; Mixed hyperlipidemia E78.2 ; Chronic prescription benzodiazepine use Z79.899 ; Chronic prescription opiate use Z79.899 ; Tobacco use Z72.0 ; Bilateral carpal tunnel syndrome G56.03 and Body mass index (bmi) 50-59.9 , adult Z68.43 [place] [address] [address] November, Primary osteoarthritis invol ving multiple joints M15.0 and Mild major depression F32.0 [place] [address] [place] [id number] [place] [phone] Oct, [place] [address] [place] [id number] [place] [phone] Oct, Primary osteoarthritis invol ving multiple joints M15.0 ; Essential hypertension I10 ; Prediabetes R73.09 ; Chronic prescription benzodiazepine use Z79.899 ; Chronic prescription opiate use Z79.899 ; Tobacco use Z72.0 ; Mixed hyperlipidemia E78.2 ; Bilateral carpal tunnel syndrome G56.03 ; Body mass index (bmi) 50-59.9 , adult Z68.43 and Encounter for immunization Z23 [place] [address] [facility] [id number] [address] [place] [address] Oct, Major depressive disorder, r ecurrent episode, mild degree F33.0 and Generalized anxiety disorder F41.1 [place] [address] [place] [id number] [place] [id number] Oct, [place] [address] [place] [id number] [place] [address] Oct, [facility] [address] [facility] [id number] [address] [place] [phone] Sep, Mild major depression F32.0 [facility] [address] [facility] [id number] [address] [place] [phone] Sep, [facility] [address] [facility] [id number] [address] [place] [phone] Sep, Mild major depression F32.0 and Generalized anxiety disorder F41.1 [facility] [address] [facility] [id number] [address] [place] [address] Sep, Paresthesia of both hands R2 0.2 and Cervical radiculopathy M54.12 [facility] [address] [facility] [id number] [address] [place] [id number] Sep, [facility] [address] [facility] [id number] [address] [place] [phone] Sep, [facility] [address] [facility] [id number] [address] [place] [phone] Aug, Paresthesia of both hands R2 0.2 and Neck pain M54.2 [facility] [address] [facility] [id number] [address] [place] [phone] Aug, [facility] [address] [facility] [id number] [address] [place] [phone] Jul, Neck pain M54.2 and Paresthe eddie of both hands R20.2 [facility] [address] [facility] [id number] [address] [place] [address] Jul, Proteinuria, unspecified typ e R80.9 [facility] [address] [facility] [id number] [address] [place] [address] Jul, Proteinuria, unspecified typ e R80.9 [facility] [address] [facility] [id number] [address] [place] [phone] Jul, [place] [address] [facility] [id number] [address] [place] [address] Jul, Other specified transient ce rebral ischemias G45.8 [place] [address] [facility] [id number] [address] [place] [address] Jun, Diastolic dysfunction I51.9 [place] [address] [place] [id number] [place] [address] Jun, Diastolic dysfunction I51.9 [place] [address] [place] [id number] [place] [phone] Jun, Major depressive disorder, s david episode, unspecified F32.9 and Anxiety disorder, unspecified F41.9 [place] [address] [place] [id number] [place] [address] Jun, [place] [address] [place] [id number] [place] [phone] Jun, [place] [address] [place] [id number] [place] [address] May, Moderate major depression F3 2.1 and Generalized anxiety disorder F41.1 [place] [address] [place] [id number] [place] [phone] 16 May, 2016 Major depressive disorder, s david episode, unspecified F32.9 and Anxiety disorder, unspecified F41.9 [place] [address] [place] [id number] [place] [id number] 15 May, 2016 [place] [address] [place] [id number] [place] [address] 14 May, 2016 Liver enzyme elevation R74.8 [place] [address] [place] [id number] [place] [address] 14 May, 2016 Liver enzyme elevation R74.8 [place] [address] [place] [id number] [place] [address] 10 May, 2016 Shortness of breath on exert ion R06.02 ; Essential hypertension I10 ; Mixed hyperlipidemia E78.2 and Tobacco use Z72.0 [facility] [address] [id number] [address] [place] [address] May, [facility] [address] [id number] [address] [place] [address] May, [facility] [address] [id number] [address] [place] [phone] Apr, Anxiety F41.9 and Depression F32.9 [facility] [address] [id number] [address] [place] [phone] Apr, [facility] [address] [id number] [address] [place] [address] Apr, [facility] [address] [id number] [address] [place] [phone] Mar, Depression F32.9 and Anxiety F41.9 [facility] [address] [id number] [address] [place] [phone] Mar, Anxiety F41.9 and Depression F32.9 [facility] [address] [id number] [address] [place] [address] Mar, Well woman exam (no gynecolo gical exam) Z00.00 [facility] [address] [id number] [address] [place] [address] Mar, [facility] [address] [id number] [address] [place] [address] Mar, [facility] [address] [id number] [address] [place] [id number] Feb, Dental caries K02.9 [facility] [address] [id number] [address] [place] [address] Feb, [facility] [address] [id number] [address] [place] [phone] Feb, Anxiety F41.9 and Depression F32.9 [facility] [address] [id number] [address] [place] [id number] Feb, Dental examination Z01.20 [facility] [address] [id number] [address] [place] [phone] Feb, [facility] [address] [id number] [address] [place] [phone] Feb, [facility] [address] [id number] [address] [place] [phone] Feb, Anxiety F41.9 and Depression F32.9 [facility] [address] [id number] [address] [place] [phone] Jan, Severe episode of recurrent major depressive disorder, without psychotic features F33.2 and Anxiety disorder, unspecified F41.9 [facility] [address] [id number] [address] [place] [phone] Jan, [facility] [address] [id number] [address] [place] [phone] Dec, [facility] [address] [id number] [address] [place] [address] Dec, Anxiety F41.9 and Depression F32.9 [facility] [address] [id number] [address] [place] [address] Dec, Other specified transient ce rebral ischemias G45.8 and Nocturnal hypoxia G47.34 [facility] [address] [id number] [address] [place] [address] Dec, [facility] [address] [id number] [address] [place] [phone] Dec, Other specified transient ce rebral ischemias G45.8 [facility] [address] [id number] [address] [place] [phone] 16 Dec, 2015 Severe episode of recurrent major depressive disorder, without psychotic features F33.2 and Anxiety disorder, unspecified F41.9 [facility] [address] [id number] 13 Dec, 2015 [place] [address] [id number] 13 Dec, 2015 Anxiety F41.9 and Depression F32.9 [place] [address] [id number] 07 Dec, 2015 Anxiety F41.9 and Depression F32.9 [place] [address] [address] Dec, [place] [address] [address] November, Anxiety F41.9 and Depression F32.9 [place] [address] [address] November, Severe episode of recurrent major depressive disorder, without psychotic features F33.2 [place] [address] [address] November, Mixed hyperlipidemia E78.2 [place] [address] [address] November, Anxiety F41.9 and Depression F32.9 [place] [address] [address] November, Prediabetes R73.09 ; Essenti al hypertension I10 ; Anxiety F41.9 ; Depression F32.9 ; Gastroesophageal reflux disease, esophagitis presence not specified K21.9 ; Primary osteoarthritis involving multiple joints M15.0 ; History of renal cell cancer Z85.528 ; Postnasal drip R09.82 ; Allergic rhinitis, unspecified J30.9 and Tobacco use Z72.0 [place] [address] [address] Oct, Anxiety F41.9 and Depression F32.9 [place] [address] [address] Oct, [facility] [address] [facility] [id number] [address] [place] [phone] Oct, [facility] [address] [address] 14 Sep, 2015 Splenic artery aneurysm I72. 8 [facility] [address] [place] [id number] [place] [phone] 10 Sep, 2015 Depression F32.9 ; Anxiety F 41.9 ; Chronic prescription benzodiazepine use Z79.899 and Splenic artery aneurysm I72.8 [facility] [address] [facility] [id number] [address] [place] [id number] 10 Sep, 2015 Depression F32.9 and Anxiety F41.9 [facility] [address] [place] [id number] [place] [address] 02 Sep, 2015 [facility] [address] [address] 18 Aug, 2015 Dehydration E86.0 ; Diarrhea R19.7 ; Nausea R11.0 and Generalized abdominal pain R10.84 [facility] [address] [place] [id number] [place] [phone] Aug, [facility] [address] [place] [id number] [place] [phone] Jul, Depression F32.9 [facility] [address] [place] [id number] [place] [phone] Jul, [facility] [address] [place] [id number] [place] [address] Jul, Anxiety F41.9 and Depression F32.9 [facility] [address] [place] [address] [id number] [place] [id number] Jul, [facility] [address] [facility] [id number] [address] [place] [phone] Jun, Epigastric pain R10.13 [facility] [address] [place] [address] [id number] [place] [id number] Jun, [facility] [address] [id number] [address] [place] [phone] Jun, [facility] [address] [facility] [id number] [address] [place] [phone] May, [facility] [address] [facility] [id number] [address] [place] [phone] May, [facility] [address] [facility] [id number] [address] [place] [phone] Apr, [facility] [address] [id number] [address] [place] [phone] Mar, Anxiety state, unspecified 3 00.00 ; Depression 311 ; Prediabetes 790.29 ; Generalized osteoarthrosis, involving multiple sites 715.09 and Hypertension 401.9 [facility] [address] [facility] [id number] [address] [place] [phone] Mar, [facility] [address] [id number] [address] [place] [phone] Feb, [facility] [address] [facility] [id number] [address] [place] [phone] Jan, [facility] [address] [facility] [id number] [address] [place] [phone] Jan, [facility] [address] [facility] [id number] [address] [place] [phone] Jan, Generalized osteoarthrosis, involving multiple sites 715.09 [facility] [address] [facility] [id number] [address] [place] [phone] 07 Jan, 2015 Hx of renal cell cancer V10. 52 [facility] [address] [facility] [id number] [address] [place] [phone] Dec, Generalized osteoarthrosis, involving multiple sites 715.09 and Hx of renal cell cancer V10.52 [facility] [address] [id number] [address] [place] [phone] Dec, [facility] [address] [id number] [address] [place] [phone] Dec, [facility] [address] [id number] [address] [place] [phone] November, [facility] [address] [id number] [address] [place] [phone] Oct, [facility] [address] [id number] [address] [place] [phone] Oct, [facility] [address] [id number] [address] [place] [phone] Sep, [facility] [address] [id number] [address] [place] [phone] Sep, [facility] [address] [id number] [address] [place] [phone] Sep, [facility] [address] [id number] [address] [place] [phone] Sep, [facility] [address] [id number] [address] [place] [phone] Aug, [facility] [address] [id number] [address] [place] [phone] Aug, IMMUNIZATIONS No Known Immunizations SOCIAL HISTORY Never Assessed REASON FOR VISIT Controlled Medication Refill PLAN OF CARE VITAL SIGNS MEDICATIONS Medication Instructions Dosage Frequency Start Date End Date Duration S tatus Hydrocodone-Acetaminophen 5-325 MG Orally 2 times a day as n eeded for pain take 1 tablet May, 28 days Active RESULTS No Results PROCEDURES [...]
--- OUTSIDE RECORDS SUMMARY | 2020-02-08 07:22 | XMS REPORT ---
Author Author Emilee MAY Organization [facility] Address [address] [place] [address] Care Team Providers Care Diamond Sorter Name Role Phone LALOJEZALBANIA Unavailable PROBLEMS Type Condition ICD9-CM Code MCG74-GP Code Onset Dates Condition S tatus SNOMED Code Problem Mixed hyperlipidemia E78.2 Active 912211048 Problem Fatty liver K76.0 Active 57077543 7 Problem Obstructive sleep apnea G47.33 Active 88459700 Problem Allergic rhinitis, unspecified J30.9 Active 66171513 Problem Essential hypertension I10 Active 12089924 Problem History of renal cell cancer Z85.528 A ctive 921493903 Problem Prediabetes R73.09 Active 6592363 Problem Diastolic dysfunction I51.9 Active 1781741 Problem Body mass index (bmi) 50-59.9 , adult Z68.43 Active 475718278 Problem Paresthesia of both hands R20.2 Acti ve 548366295 Problem 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 Acti ve 614823310 Problem BMI 50.0-59.9, adult Z68.43 Active 898068947 Problem Restrictive lung disease J98.4 Activ e 10810292 Problem Splenic artery aneurysm I72.8 Active 45755543 Problem Liver mass R16.0 Active 607443649 Problem Generalized anxiety disorder F41.1 A ctive 33111850 Problem Major depressive disorder, recurrent episode, mild degree F33.0 Active 396669706 Problem Excoriation, neurotic L98.1 Active 43518876 Problem History of tobacco use Z87.891 Active 8629178692463 Problem Primary osteoarthritis involving multiple joints M 15.0 Active 572636992 Problem Isolated proteinuria without specific morphologic lesion R80.0 Active 57358655 Problem 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 Active 903461168 Problem Pulmonary emphysema, unspecified emphysema type J4 3.9 Active 52706218 Problem Chronic prescription opiate use Z79.899 Active 983070841 Problem Tobacco use Z72.0 Active 47183591 0 Problem Bilateral carpal tunnel syndrome G56.03 Active 30481413 Problem Chronic prescription benzodiazepine use Z79.899 Active 757974960 ALLERGIES No Information ENCOUNTERS Encounter Location Date Diagnosis [facility] [id number] [place] [phone] Feb, [facility] [address] [address] Dec, [facility] [address] [phone] Dec, [facility] [address] [address] November, [facility] [id number] [place] [phone] November, Pulmonary emphysema, unspeci fied emphysema type J43.9 ; Restrictive lung disease J98.4 ; BMI 50.0-59.9, adult Z68.43 ; History of renal cell cancer Z85.528 ; Essential hypertension I10 ; Mixed hyperlipidemia E78.2 and Fatty liver K76.0 [place] [id number] [place] [address] November, Generalized anxiety disorder F41.1 [place] [id number] [place] [phone] November, Generalized anxiety disorder F41.1 and Major depressive disorder, recurrent episode, mild degree F33.0 [place] [id number] [place] [phone] November, Generalized anxiety disorder F41.1 ; Major depressive disorder, recurrent episode, mild degree F33.0 and Habitual self-excoriation F42.4 [place] [id number] [place] [phone] November, [facility] [address] [address] Oct, Generalized anxiety disorder F41.1 [facility] [address] [place] [phone] Oct, [facility] [id number] [place] [phone] Oct, Influenza-like illness R69 [facility] [id number] [place] [phone] Sep, Influenza-like illness R69 [facility] [id number] [place] [phone] Sep, Generalized anxiety disorder F41.1 [facility] [address] [id number] Sep, [facility] [id number] [place] [phone] Aug, [facility] [address] [address] Aug, [facility] [id number] [place] [phone] Aug, Generalized anxiety disorder F41.1 [facility] [address] [place] [address] Aug, Influenza-like illness R69 a nd BMI 50.0-59.9, adult Z68.43 [facility] [address] [place] [address] Jul, Fatty liver K76.0 ; Restrict jean-paul lung disease J98.4 ; Diastolic dysfunction I51.9 ; Body mass index (bmi) 50-59.9 , adult Z68.43 and Chronic prescription opiate use Z79.899 [facility] [id number] [place] [phone] Jul, Generalized anxiety disorder F41.1 [facility] [address] [place] [address] Jul, Generalized anxiety disorder F41.1 [facility] [address] [id number] [address] [place] [phone] Jul, Primary osteoarthritis invol ving multiple joints M15.0 [facility] [address] [id number] [address] [place] [phone] Jun, Generalized anxiety disorder F41.1 [facility] [address] [id number] [address] [place] [phone] Jun, [facility] [address] [id number] [address] [place] [phone] Jun, Mixed hyperlipidemia E78.2 [facility] [address] [id number] [address] [place] [phone] Jun, Generalized anxiety disorder F41.1 [facility] [address] [id number] [address] [place] [phone] Jun, Generalized anxiety disorder F41.1 ; Major depressive disorder, recurrent episode, mild degree F33.0 and Habitual self-excoriation F42.4 [facility] [address] [id number] [address] [place] [phone] May, [facility] [address] [id number] [address] [place] [phone] May, Generalized anxiety disorder F41.1 [facility] [address] [id number] [address] [place] [phone] May, Generalized anxiety disorder F41.1 [facility] [address] [id number] [address] [place] [phone] May, Primary osteoarthritis invol ving multiple joints M15.0 [facility] [address] [id number] [address] [place] [phone] Apr, Major depressive disorder, r ecurrent episode, mild degree F33.0 ; Generalized anxiety disorder F41.1 and Excoriation, neurotic L98.1 [facility] [address] [id number] [address] [place] [phone] 04 Apr, 2017 Primary osteoarthritis invol ving multiple joints M15.0 [facility] [address] [id number] [address] [place] [phone] 03 Apr, 2017 Essential hypertension I10 a nd Mixed hyperlipidemia E78.2 [facility] [address] [facility] [id number] [address] [place] [phone] Apr, Generalized anxiety disorder F41.1 ; Major depressive disorder, recurrent episode, mild degree F33.0 and Habitual self-excoriation F42.4 [facility] [address] [id number] [address] [place] [phone] 06 Mar, 2017 Generalized anxiety disorder F41.1 ; Major depressive disorder, recurrent episode, mild degree F33.0 and Habitual self-excoriation F42.4 [facility] [address] [facility] [id number] [address] [place] [phone] 05 Mar, 2017 Skin lesion L98.9 [facility] [address] [id number] [address] [place] [phone] 05 Mar, 2017 Primary osteoarthritis invol ving multiple joints M15.0 [facility] [address] [id number] [address] [place] [phone] Mar, [facility] [address] [facility] [id number] [address] [place] [phone] Mar, [facility] [address] [facility] [id number] [address] [place] [phone] Feb, Major depressive disorder, r ecurrent episode, mild degree F33.0 ; Generalized anxiety disorder F41.1 and Excoriation, neurotic L98.1 [facility] [address] [id number] [address] [place] [phone] Feb, Generalized anxiety disorder F41.1 [facility] [address] [facility] [id number] [address] [place] [phone] Feb, Primary osteoarthritis invol ving multiple joints M15.0 [facility] [address] [facility] [id number] [address] [place] [phone] Jan, [place] [address] [facility] [id number] [address] [place] [phone] Jan, Essential hypertension I10 ; Splenic artery aneurysm I72.8 ; Liver mass R16.0 ; Restrictive lung disease J98.4 ; Primary osteoarthritis involving multiple joints M15.0 ; Mixed hyperlipidemia E78.2 ; Bilateral carpal tunnel syndrome G56.03 ; Body mass index (bmi) 50-59.9 , adult Z68.43 and History of tobacco use Z87.891 [place] [address] [facility] [id number] [address] [place] [phone] Jan, Major depressive disorder, r ecurrent episode, mild degree F33.0 and Generalized anxiety disorder F41.1 [place] [id number] [place] [phone] Jan, [place] [address] [facility] [id number] [address] [place] [phone] Jan, Generalized anxiety disorder F41.1 and Major depressive disorder, recurrent episode, mild degree F33.0 [place] [address] [facility] [id number] [address] [place] [phone] Dec, Primary osteoarthritis invol ving multiple joints M15.0 [facility] [address] [facility] [id number] [address] [place] [phone] Dec, Generalized anxiety disorder F41.1 [place] [address] [facility] [id number] [address] [place] [phone] Dec, [place] [address] [facility] [id number] [address] [place] [phone] Dec, Major depressive disorder, r ecurrent episode, mild degree F33.0 and Generalized anxiety disorder F41.1 [place] [address] [facility] [id number] [address] [place] [phone] Dec, Generalized anxiety disorder F41.1 and Major depressive disorder, recurrent episode, mild degree F33.0 [place] [id number] [place] [phone] November, Mild major depression F32.0 and Primary osteoarthritis involving multiple joints M15.0 [place] [id number] [place] [phone] November, Major depressive disorder, r ecurrent episode, mild degree F33.0 and Generalized anxiety disorder F41.1 [place] [address] [address] November, Primary osteoarthritis invol ving multiple joints M15.0 ; Essential hypertension I10 ; Prediabetes R73.09 ; Mixed hyperlipidemia E78.2 ; Chronic prescription benzodiazepine use Z79.899 ; Chronic prescription opiate use Z79.899 ; Tobacco use Z72.0 ; Bilateral carpal tunnel syndrome G56.03 and Body mass index (bmi) 50-59.9 , adult Z68.[address] [address] November, Primary osteoarthritis invol ving multiple joints M15.0 and Mild major depression F32.0 [place] [address] [address] Oct, [place] [id number] [place] [address] Oct, Primary osteoarthritis invol ving multiple joints M15.0 ; Essential hypertension I10 ; Prediabetes R73.09 ; Chronic prescription benzodiazepine use Z79.899 ; Chronic prescription opiate use Z79.899 ; Tobacco use Z72.0 ; Mixed hyperlipidemia E78.2 ; Bilateral carpal tunnel syndrome G56.03 ; Body mass index (bmi) 50-59.9 , adult Z68.43 and Encounter for immunization Z23 [place] [address] [address] Oct, Major depressive disorder, r ecurrent episode, mild degree F33.0 and Generalized anxiety disorder F41.1 [place] [address] [place] [address] Oct, [facility] [id number] [place] [phone] Oct, [facility] [id number] [place] [address] Sep, Mild major depression F32.0 [facility] [id number] [place] [phone] Sep, [facility] [id number] [place] [address] Sep, Mild major depression F32.0 and Generalized anxiety disorder F41.1 [facility] [id number] [place] [address] Sep, Paresthesia of both hands R2 0.2 and Cervical radiculopathy M54.12 [facility] [address] [address] Sep, [facility] [id number] [place] [address] Sep, [facility] [address] [address] Aug, Paresthesia of both hands R2 0.2 and Neck pain M54.2 [facility] [address] [address] Aug, [facility] [id number] [place] [phone] Jul, Neck pain M54.2 and Paresthe eddie of both hands R20.2 [facility] [address] [address] Jul, Proteinuria, unspecified typ e R80.9 [facility] [id number] [place] [address] Jul, Proteinuria, unspecified typ e R80.9 [facility] [address] [id number] [address] [place] [phone] Jul, [facility] [address] [facility] [id number] [address] [place] [phone] Jul, Other specified transient ce rebral ischemias G45.8 [facility] [address] [id number] [address] [place] [phone] Jun, Diastolic dysfunction I51.9 [facility] [address] [id number] [address] [place] [phone] Jun, Diastolic dysfunction I51.9 [facility] [address] [facility] [id number] [address] [place] [phone] Jun, Major depressive disorder, s david episode, unspecified F32.9 and Anxiety disorder, unspecified F41.9 [facility] [address] [facility] [id number] [address] [place] [phone] Jun, [facility] [address] [id number] [address] [place] [phone] Jun, [facility] [address] [facility] [id number] [address] [place] [phone] May, Moderate major depression F3 2.1 and Generalized anxiety disorder F41.1 [facility] [address] [facility] [id number] [address] [place] [phone] 16 May, 2016 Major depressive disorder, s david episode, unspecified F32.9 and Anxiety disorder, unspecified F41.9 [facility] [address] [id number] [address] [place] [phone] 15 May, 2016 [facility] [address] [facility] [id number] [address] [place] [phone] 14 May, 2016 Liver enzyme elevation R74.8 [facility] [address] [facility] [id number] [address] [place] [phone] 14 May, 2016 Liver enzyme elevation R74.8 [facility] [id number] [place] [address] May, Shortness of breath on exert ion R06.02 ; Essential hypertension I10 ; Mixed hyperlipidemia E78.2 and Tobacco use Z72.0 [facility] [address] [facility] [id number] [address] [place] [phone] May, [facility] [address] [facility] [id number] [address] [place] [phone] May, [facility] [id number] [place] [address] Apr, Anxiety F41.9 and Depression F32.9 [facility] [id number] [place] [phone] Apr, [facility] [id number] [place] [phone] Apr, [facility] [id number] [place] [address] Mar, Depression F32.9 and Anxiety F41.9 [facility] [id number] [place] [phone] 08 Mar, 2016 Anxiety F41.9 and Depression F32.9 [facility] [id number] [place] [phone] Mar, Well woman exam (no gynecolo gical exam) Z00.00 [facility] [id number] [place] [phone] Mar, [facility] [address] [facility] [id number] [address] [place] [phone] Mar, [facility] [address] [id number] [address] [place] [id number] Feb, Dental caries K02.9 [facility] [address] [facility] [id number] [address] [place] [phone] Feb, [facility] [id number] [place] [address], [place] [address] Feb, Anxiety F41.9 and Depression F32.9 [facility] [address] [id number] [address] [place] [id number] Feb, Dental examination Z01.20 [facility] [address] [id number] [address] [place] [phone] Feb, [facility] [address] [facility] [id number] [address] [place] [id number] Feb, [facility] [address] [id number] [address] [place] [phone] Feb, Anxiety F41.9 and Depression F32.9 [facility] [address] [facility] [id number] [address] [place] [phone] Jan, Severe episode of recurrent major depressive disorder, without psychotic features F33.2 and Anxiety disorder, unspecified F41.9 [facility] [address] [facility] [id number] [address] [place] [phone] Jan, [facility] [address] [id number] [address] [place] [phone] Dec, [facility] [address] [facility] [id number] [address] [place] [phone] Dec, Anxiety F41.9 and Depression F32.9 [facility] [address] [facility] [id number] [address] [place] [phone] Dec, Other specified transient ce rebral ischemias G45.8 and Nocturnal hypoxia G47.34 [facility] [address] [id number] [address] [place] [phone] Dec, [facility] [address] [facility] [id number] [address] [place] [phone] Dec, Other specified transient ce rebral ischemias G45.8 [facility] [address] [facility] [id number] [address] [place] [phone] 16 Dec, 2015 Severe episode of recurrent major depressive disorder, without psychotic features F33.2 and Anxiety disorder, unspecified F41.9 [place] [address] [place] [phone] 13 Dec, 2015 [place] [address] [id number] [place] [phone] 13 Dec, 2015 Anxiety F41.9 and Depression F32.9 [place] [address] [address] 07 Dec, 2015 Anxiety F41.9 and Depression F32.9 [place] [address] [place] [phone] Dec, [place] [address] [address] November, Anxiety F41.9 and Depression F32.9 [place] [address] [address] November, Severe episode of recurrent major depressive disorder, without psychotic features F33.2 [place] [address] [address] November, Mixed hyperlipidemia E78.2 [place] [id number] [place] [phone] November, Anxiety F41.9 and Depression F32.9 [place] [address] [address] 05 Nov, 2015 Prediabetes R73.09 ; Essenti al hypertension I10 ; Anxiety F41.9 ; Depression F32.9 ; Gastroesophageal reflux disease, esophagitis presence not specified K21.9 ; Primary osteoarthritis involving multiple joints M15.0 ; History of renal cell cancer Z85.528 ; Postnasal drip R09.82 ; Allergic rhinitis, unspecified J30.9 and Tobacco use Z72.0 [place] [id number] [place] [phone] 11 Oct, 2015 Anxiety F41.9 and Depression F32.9 [facility] [address] [id number] [address] [place] [id number] 07 Oct, 2015 [facility] [address] [id number] Oct, [facility] [address] [id number] 14 Sep, 2015 Splenic artery aneurysm I72. 8 [facility] [address] [id number] 10 Sep, 2015 Depression F32.9 ; Anxiety F 41.9 ; Chronic prescription benzodiazepine use Z79.899 and Splenic artery aneurysm I72.8 [facility] [address] [id number] 10 Sep, 2015 Depression F32.9 and Anxiety F41.9 [facility] [address] [id number] Sep, [facility] [address] [id number] 18 Aug, 2015 Dehydration E86.0 ; Diarrhea R19.7 ; Nausea R11.0 and Generalized abdominal pain R10.84 [facility] [address] [place] [id number] [place] [phone] Aug, [facility] [address] [id number] Jul, Depression F32.9 [facility] [address] [id number] [place] [id number] Jul, [facility] [address] [id number] Jul, Anxiety F41.9 and Depression F32.9 [facility] [facility] [address] [id number] [address] [place] [phone] Jul, [facility] [address] [phone] Jun, Epigastric pain R10.13 [facility] [address] [id number] [address] [place] [phone] Jun, [facility] [address] [facility] [id number] [address] [place] [phone] Jun, [facility] [address] [facility] [id number] [address] [place] [phone] May, [facility] [address] [id number] [address] [place] [phone] May, [facility] [address] [id number] [address] [place] [phone] Apr, [facility] [address] [facility] [id number] [address] [place] [phone] Mar, Anxiety state, unspecified 3 00.00 ; Depression 311 ; Prediabetes 790.29 ; Generalized osteoarthrosis, involving multiple sites 715.09 and Hypertension 401.9 [facility] [address] [facility] [id number] [address] [place] [phone] Mar, [facility] [address] [facility] [id number] [address] [place] [phone] Feb, [facility] [address] [facility] [id number] [address] [place] [phone] Jan, [facility] [address] [facility] [id number] [address] [place] [phone] Jan, [facility] [address] [facility] [id number] [address] [place] [phone] Jan, Generalized osteoarthrosis, involving multiple sites 715.09 [facility] [address] [facility] [id number] [address] [place] [phone] 07 Jan, 2015 Hx of renal cell cancer V10. 52 [facility] [address] [facility] [id number] [address] [place] [phone] Dec, Generalized osteoarthrosis, involving multiple sites 715.09 and Hx of renal cell cancer V10.52 [facility] [address] [id number] [address] [place] [phone] Dec, [facility] [address] [id number] [address] [place] [phone] Dec, [facility] [address] [id number] [address] [place] [phone] November, [facility] [address] [id number] [address] [place] [phone] Oct, [facility] [address] [id number] [address] [place] [phone] Oct, [facility] [address] [id number] [address] [place] [phone] Sep, [facility] [address] [id number] [address] [place] [phone] Sep, [facility] [address] [id number] [address] [place] [phone] Sep, [facility] [address] [id number] [address] [place] [phone] Sep, [facility] [address] [id number] [address] [place] [phone] Aug, [facility] [address] [id number] [address] [place] [phone] Aug, IMMUNIZATIONS No Known Immunizations SOCIAL HISTORY [...]
--- OUTSIDE RECORDS SUMMARY | 2020-02-08 07:22 | XMS REPORT ---
Author Author Emilee MAY Organization [facility] Address [address] [place] [address] Care Team Providers Care [employer] Operator Name Role Phone LALOJEZ[place] Unavailable PROBLEMS Type Condition ICD9-CM Code [id number] Code Onset Dates Condition S tatus SNOMED Code Problem History of renal cell cancer Z85.528 A ctive 663020194 Problem Diastolic dysfunction I51.9 Active 4743853 Problem Chronic prescription opiate use Z79.899 Active 131646471 Problem Excoriation, neurotic L98.1 Active 22050577 Problem Essential hypertension I10 Active 47155747 Problem History of tobacco use Z87.891 Active 3805628810631 Problem Restrictive lung disease J98.4 Activ e 44876064 Problem Splenic artery aneurysm I72.8 Active 77507627 Problem Body mass index (bmi) 50-59.9 , adult Z68.43 Active 423577843 Problem Paresthesia of both hands R20.2 Acti ve 987579945 Problem Generalized anxiety disorder F41.1 A ctive 92364227 Problem Major depressive disorder, recurrent episode, mild degree F33.0 Active 565239677 Problem Isolated proteinuria without specific morphologic lesion R80.0 Active 03124361 Problem Fatty liver K76.0 Active 47271169 7 Problem Primary osteoarthritis involving multiple joints M 15.0 Active 255375572 Problem Bilateral carpal tunnel syndrome G56.03 Active 49726896 Problem Mixed hyperlipidemia E78.2 Active 291238597 Problem Chronic prescription benzodiazepine use Z79.899 Active 825921064 Problem Prediabetes R73.09 Active 6096302 Problem Obstructive sleep apnea G47.33 Active 35963760 Problem Tobacco use Z72.0 Active 56845087 0 Problem Liver mass R16.0 Active 911488195 Problem 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
--- OUTSIDE RECORDS SUMMARY | 2020-02-08 07:22 | XMS REPORT ---
Author Author Emilee NO Organization [facility] [place] Address [address] [place] [address] Care Team Providers Care Nurse Ortho Name Role Phone [email or web address] Unavailable PROBLEMS Type Condition ICD9-CM Code LZT02-ZF Code Onset Dates Condition S tatus SNOMED Code Problem Mixed hyperlipidemia E78.2 Active 324294450 Problem Fatty liver K76.0 Active 87259671 7 Problem Obstructive sleep apnea G47.33 Active 95987505 Problem Allergic rhinitis, unspecified J30.9 Active 52835606 Problem Essential hypertension I10 Active 29984125 Problem History of renal cell cancer Z85.528 A ctive 525377994 Problem Prediabetes R73.09 Active 5029970 Problem Diastolic dysfunction I51.9 Active 9877998 Problem Body mass index (bmi) 50-59.9 , adult Z68.43 Active 515416630 Problem Paresthesia of both hands R20.2 Acti ve 398517810 Problem Habitual self-excoriation F42.4 Acti ve 661032222 Problem BMI 50.0-59.9, adult Z68.43 Active 009240790 Problem Restrictive lung disease J98.4 Activ e 95325947 Problem Splenic artery aneurysm I72.8 Active 81802502 Problem Liver mass R16.0 Active 753893703 Problem Generalized anxiety disorder F41.1 A ctive 99851976 Problem Major depressive disorder, recurrent episode, mild degree F33.0 Active 056889065 Problem Excoriation, neurotic L98.1 Active 25999520 Problem History of tobacco use Z87.891 Active 3168127223342 Problem Primary osteoarthritis involving multiple joints M 15.0 Active 137189996 Problem Isolated proteinuria without specific morphologic lesion R80.0 Active 97634355 Problem 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 Active 822851981 Problem Pulmonary emphysema, unspecified emphysema type J4 3.9 Active 96167571 Problem Chronic prescription opiate use Z79.899 Active 976669636 Problem Tobacco use Z72.0 Active 97264720 0 Problem Bilateral carpal tunnel syndrome G56.03 Active 02875836 Problem Chronic prescription benzodiazepine use Z79.899 Active 553845789 ALLERGIES No Information ENCOUNTERS Encounter Location Date Diagnosis [facility] [place] [id number] [place] [id number] Feb, [facility] [place] [id number] [place] [id number] Dec, [facility] [place] [address] [address] Dec, [facility] [place] [address] [address] November, [facility] [place] [address] [address] November, [facility] [place] [address] [address] November, Pulmonary emphysema, unspeci fied emphysema type J43.9 ; Restrictive lung disease J98.4 ; BMI 50.0-59.9, adult Z68.43 ; History of renal cell cancer Z85.528 ; Essential hypertension I10 ; Mixed hyperlipidemia E78.2 and Fatty liver K76.0 [facility] [place] [id number] [place] [address] November, Generalized anxiety disorder F41.1 [place] [address] [address] November, Generalized anxiety disorder F41.1 and Major depressive disorder, recurrent episode, mild degree F33.0 [place] [address] [address] November, Generalized anxiety disorder F41.1 ; Major depressive disorder, recurrent episode, mild degree F33.0 and Habitual self-excoriation F42.4 [place] [address] [place] [id number] [place] [id number] November, [facility] [place] [address] [facility] [id number] [address] [place] [id number] Oct, Generalized anxiety disorder F41.1 [facility] [place] [address] [facility] [id number] [address] [place] [id number] Oct, [facility] [place] [address] [id number] [address] [place] [id number] Oct, Influenza-like illness R69 [facility] [place] [id number] [place] [id number] Sep, Influenza-like illness R69 [facility] [place] [id number] [place] [address] Sep, Generalized anxiety disorder F41.1 [facility] [place] [address] [id number] [address] [place] [id number] Sep, [facility] [place] [address] [address] Aug, [facility] [place] [id number] [address] [place] [id number] Aug, [facility] [place] [address] [address] Aug, Generalized anxiety disorder F41.1 [facility] [address] [facility] [id number] [address] [place] [id number] Aug, Influenza-like illness R69 a nd BMI 50.0-59.9, adult Z68.43 [facility] [place] [id number] [address] [place] [id number] Jul, 2018 Fatty liver K76.0 ; Restrict jean-paul lung disease J98.4 ; Diastolic dysfunction I51.9 ; Body mass index (bmi) 50-59.9 , adult Z68.43 and Chronic prescription opiate use Z79.899 [facility] [place] [id number] [place] [id number] Jul, Generalized anxiety disorder F41.1 [facility] [place] [address] [id number] [address] [place] [id number] Jul, Generalized anxiety disorder F41.1 [facility] [place] [address] [id number] [address] [place] [id number] Jul, Primary osteoarthritis invol ving multiple joints M15.0 [facility] [place] [address] [id number] [address] [place] [id number] Jun, Generalized anxiety disorder F41.1 [facility] [place] [address] [id number] [address] [place] [id number] Jun, [facility] [place] [address] [id number] [address] [place] [id number] Jun, Mixed hyperlipidemia E78.2 [facility] [place] [address] [id number] [address] [place] [id number] Jun, Generalized anxiety disorder F41.1 [facility] [place] [address] [id number] [address] [place] [id number] Jun, Generalized anxiety disorder F41.1 ; Major depressive disorder, recurrent episode, mild degree F33.0 and Habitual self-excoriation F42.4 [facility] [place] [address] [id number] [address] [place] [id number] May, [facility] [place] [address] [id number] [address] [place] [id number] May, Generalized anxiety disorder F41.1 [facility] [place] [address] [id number] [address] [place] [id number] May, Generalized anxiety disorder F41.1 [facility] [place] [address] [id number] [address] [place] [id number] May, Primary osteoarthritis invol ving multiple joints M15.0 [facility] [place] [address] [id number] [address] [place] [id number] Apr, Major depressive disorder, r ecurrent episode, mild degree F33.0 ; Generalized anxiety disorder F41.1 and Excoriation, neurotic L98.1 [facility] [place] [address] [id number] [address] [place] [id number] 04 Apr, 2017 Primary osteoarthritis invol ving multiple joints M15.0 [facility] [place] [address] [id number] [address] [place] [id number] 03 Apr, 2017 Essential hypertension I10 a nd Mixed hyperlipidemia E78.2 [facility] [place] [address] [id number] [address] [place] [id number] Apr, Generalized anxiety disorder F41.1 ; Major depressive disorder, recurrent episode, mild degree F33.0 and Habitual self-excoriation F42.4 [facility] [place] [address] [id number] [address] [place] [id number] 06 Mar, 2017 Generalized anxiety disorder F41.1 ; Major depressive disorder, recurrent episode, mild degree F33.0 and Habitual self-excoriation F42.4 [facility] [place] [address] [id number] [address] [place] [id number] 05 Mar, 2017 Skin lesion L98.9 [facility] [place] [address] [id number] [address] [place] [id number] 05 Mar, 2017 Primary osteoarthritis invol ving multiple joints M15.0 [facility] [place] [address] [id number] [address] [place] [id number] Mar, [facility] [place] [address] [id number] [address] [place] [id number] Mar, [facility] [place] [address] [id number] [address] [place] [id number] Feb, Major depressive disorder, r ecurrent episode, mild degree F33.0 ; Generalized anxiety disorder F41.1 and Excoriation, neurotic L98.1 [facility] [place] [address] [id number] [address] [place] [id number] Feb, Generalized anxiety disorder F41.1 [facility] [place] [address] [id number] [address] [place] [id number] Feb, Primary osteoarthritis invol ving multiple joints M15.0 [facility] [place] [address] [facility] [id number] [address] [place] [id number] Jan, [facility] [place] [address] [facility] [id number] [address] [place] [id number] Jan, Essential hypertension I10 ; Splenic artery aneurysm I72.8 ; Liver mass R16.0 ; Restrictive lung disease J98.4 ; Primary osteoarthritis involving multiple joints M15.0 ; Mixed hyperlipidemia E78.2 ; Bilateral carpal tunnel syndrome G56.03 ; Body mass index (bmi) 50-59.9 , adult Z68.43 and History of tobacco use Z87.891 [facility] [place] [address] [facility] [id number] [address] [place] [id number] Jan, Major depressive disorder, r ecurrent episode, mild degree F33.0 and Generalized anxiety disorder F41.1 [facility] [place] [address] [facility] [id number] [address] [place] [id number] Jan, [facility] [place] [address] [facility] [id number] [address] [place] [id number] Jan, Generalized anxiety disorder F41.1 and Major depressive disorder, recurrent episode, mild degree F33.0 [facility] [place] [address] [facility] [id number] [address] [place] [id number] Dec, Primary osteoarthritis invol ving multiple joints M15.0 [facility] [place] [address] [facility] [id number] [address] [place] [id number] Dec, Generalized anxiety disorder F41.1 [facility] [place] [address] [facility] [id number] [address] [place] [id number] Dec, [facility] [place] [address] [facility] [id number] [address] [place] [id number] Dec, Major depressive disorder, r ecurrent episode, mild degree F33.0 and Generalized anxiety disorder F41.1 [facility] [place] [address] [facility] [id number] [address] [place] [id number] Dec, Generalized anxiety disorder F41.1 and Major depressive disorder, recurrent episode, mild degree F33.0 [place] [address] [place] [id number] [place] [id number] November, Mild major depression F32.0 and Primary osteoarthritis involving multiple joints M15.0 [place] [address] [place] [id number] [address] [place] [id number] November, Major depressive disorder, r ecurrent episode, mild degree F33.0 and Generalized anxiety disorder F41.1 [place] [address] [place] [id number] [address] [place] [id number] November, Primary osteoarthritis invol ving multiple joints M15.0 ; Essential hypertension I10 ; Prediabetes R73.09 ; Mixed hyperlipidemia E78.2 ; Chronic prescription benzodiazepine use Z79.899 ; Chronic prescription opiate use Z79.899 ; Tobacco use Z72.0 ; Bilateral carpal tunnel syndrome G56.03 and Body mass index (bmi) 50-59.9 , adult Z68.43 [place] [address] [place] [id number] [place] [address] November, Primary osteoarthritis invol ving multiple joints M15.0 and Mild major depression F32.0 [place] [address] [place] [id number] [address] [place] [id number] Oct, [place] [address] [place] [id number] [place] [id number] Oct, Primary osteoarthritis invol ving multiple joints M15.0 ; Essential hypertension I10 ; Prediabetes R73.09 ; Chronic prescription benzodiazepine use Z79.899 ; Chronic prescription opiate use Z79.899 ; Tobacco use Z72.0 ; Mixed hyperlipidemia E78.2 ; Bilateral carpal tunnel syndrome G56.03 ; Body mass index (bmi) 50-59.9 , adult Z68.43 and Encounter for immunization Z23 [place] [id number] [place] [id number] [place] [id number] Oct, Major depressive disorder, r ecurrent episode, mild degree F33.0 and Generalized anxiety disorder F41.1 [facility] [place] [address] [id number] [address] [place] [id number] Oct, [facility] [place] [address] [id number] [address] [place] [id number] Oct, [facility] [place] [address] [id number] [address] [place] [id number] Sep, Mild major depression F32.0 [facility] [place] [address] [id number] [address] [place] [id number] Sep, [facility] [place] [address] [id number] [address] [place] [id number] Sep, Mild major depression F32.0 and Generalized anxiety disorder F41.1 [facility] [place] [address] [facility] [id number] [address] [place] [id number] Sep, Paresthesia of both hands R2 0.2 and Cervical radiculopathy M54.12 [facility] [place] [address] [id number] [address] [place] [id number] Sep, [facility] [place] [address] [facility] [id number] [address] [place] [id number] Sep, [facility] [place] [address] [facility] [id number] [address] [place] [id number] Aug, Paresthesia of both hands R2 0.2 and Neck pain M54.2 [facility] [place] [address] [id number] [address] [place] [id number] Aug, [facility] [place] [address] [facility] [id number] [address] [place] [id number] Jul, Neck pain M54.2 and Paresthe eddie of both hands R20.2 [facility] [place] [address] [facility] [id number] [address] [place] [id number] Jul, Proteinuria, unspecified typ e R80.9 [facility] [place] [address] [facility] [id number] [address] [place] [id number] Jul, Proteinuria, unspecified typ e R80.9 [facility] [place] [address] [facility] [id number] [address] [place] [id number] Jul, [place] [address] [facility] [id number] [address] [place] [id number] Jul, Other specified transient ce rebral ischemias G45.8 [facility] [place] [address] [facility] [id number] [address] [place] [id number] Jun, Diastolic dysfunction I51.9 [place] [address] [facility] [id number] [address] [place] [id number] Jun, Diastolic dysfunction I51.9 [place] [address] [place] [id number] [place] [id number] Jun, Major depressive disorder, s david episode, unspecified F32.9 and Anxiety disorder, unspecified F41.9 [place] [address] [place] [id number] [address] [place] [id number] Jun, [place] [address] [place] [id number] [place] [id number] Jun, [place] [address] [place] [id number] [place] [phone] May, Moderate major depression F3 2.1 and Generalized anxiety disorder F41.1 [place] [address] [facility] [id number] [address] [place] [address] May, Major depressive disorder, s david episode, unspecified F32.9 and Anxiety disorder, unspecified F41.9 [place] [address] [place] [id number] [place] [id number] May, [place] [address] [place] [id number] [place] [id number] 14 May, 2016 Liver enzyme elevation R74.8 [place] [address] [facility] [id number] [address] [place] [id number] 14 May, 2016 Liver enzyme elevation R74.8 [facility] [place] [address] [facility] [id number] [address] [place] [id number] 10 May, 2016 Shortness of breath on exert ion R06.02 ; Essential hypertension I10 ; Mixed hyperlipidemia E78.2 and Tobacco use Z72.0 [facility] [place] [address] [facility] [id number] [place] [id number] May, [facility] [place] [address] [place] [id number] [place] [phone] May, [facility] [place] [address] [id number] Apr, Anxiety F41.9 and Depression F32.9 [facility] [place] [address] [address] Apr, [facility] [place] [address] [id number] Apr, [facility] [place] [address] [place] [id number] [address] [place] [id number] Mar, Depression F32.9 and Anxiety F41.9 [facility] [place] [address] [id number] 08 Mar, 2016 Anxiety F41.9 and Depression F32.9 [facility] [place] [address] [place] [id number] [place] [id number] Mar, Well woman exam (no gynecolo gical exam) Z00.00 [facility] [place] [id number] [place] [id number] Mar, [facility] [place] [address] [place] [id number] [place] [id number] Mar, [facility] [address] [id number] [address] [place] [id number] Feb, Dental caries K02.9 [facility] [place] [address] [place] [address] Feb, [facility] [place] [address] [id number] [address] [place] [id number] Feb, Anxiety F41.9 and Depression F32.9 [facility] [address] [id number] [address] [place] [id number] Feb, Dental examination Z01.20 [facility] [place] [address] [id number] [address] [place] [id number] Feb, [facility] [place] [address] [id number] [address] [place] [id number] Feb, [facility] [place] [address] [id number] [address] [place] [id number] Feb, Anxiety F41.9 and Depression F32.9 [facility] [place] [address] [id number] [address] [place] [id number] Jan, Severe episode of recurrent major depressive disorder, without psychotic features F33.2 and Anxiety disorder, unspecified F41.9 [facility] [place] [address] [id number] [address] [place] [id number] Jan, [facility] [place] [address] [facility] [id number] [address] [place] [id number] Dec, [facility] [place] [address] [id number] [address] [place] [id number] Dec, Anxiety F41.9 and Depression F32.9 [facility] [place] [address] [id number] [address] [place] [id number] Dec, Other specified transient ce rebral ischemias G45.8 and Nocturnal hypoxia G47.34 [facility] [place] [address] [id number] [address] [place] [id number] Dec, [facility] [place] [facility] [address] [facility] [id number] [address] [place] [id number] Dec, Other specified transient ce rebral ischemias G45.8 [place] [address] [id number] 16 Dec, 2015 Severe episode of recurrent major depressive disorder, without psychotic features F33.2 and Anxiety disorder, unspecified F41.9 [place] [address] [address] [place] [id number] [address] [place] [id number] 13 Dec, 2015 [place] [address] [address] 13 Dec, 2015 Anxiety F41.9 and Depression F32.9 [place] [address] [id number] 07 Dec, 2015 Anxiety F41.9 and Depression F32.9 [place] [address] [address] Dec, [place] [address] [id number] November, Anxiety F41.9 and Depression F32.9 [place] [address] [address] November, Severe episode of recurrent major depressive disorder, without psychotic features F33.2 [place] [address] [address] November, Mixed hyperlipidemia E78.2 [place] [address] [address] November, Anxiety F41.9 and Depression F32.9 [place] [address] [address] 05 Nov, 2015 Prediabetes R73.09 ; Essenti al hypertension I10 ; Anxiety F41.9 ; Depression F32.9 ; Gastroesophageal reflux disease, esophagitis presence not specified K21.9 ; Primary osteoarthritis involving multiple joints M15.0 ; History of renal cell cancer Z85.528 ; Postnasal drip R09.82 ; Allergic rhinitis, unspecified J30.9 and Tobacco use Z72.0 [place] [address] [address] [place] [id number] [address] [place] [id number] 11 Oct, 2015 Anxiety F41.9 and Depression F32.9 [facility] [place] [address] [id number] 07 Oct, 2015 [facility] [place] [address] [place] [id number] [address] [place] [id number] Oct, [facility] [place] [address] [id number] 14 Sep, 2015 Splenic artery aneurysm I72. 8 [facility] [place] [address] [id number] 10 Sep, 2015 Depression F32.9 ; Anxiety F 41.9 ; Chronic prescription benzodiazepine use Z79.899 and Splenic artery aneurysm I72.8 [place] [address] [address] 10 Sep, 2015 Depression F32.9 and Anxiety F41.9 [facility] [place] [address] [place] [id number] [address] [place] [id number] Sep, [facility] [place] [address] [id number] 18 Aug, 2015 Dehydration E86.0 ; Diarrhea R19.7 ; Nausea R11.0 and Generalized abdominal pain R10.84 [place] [address] [id number] Aug, [facility] [place] [address] [place] [id number] [address] [place] [id number] Jul, Depression F32.9 [facility] [place] [address] [place] [id number] [address] [place] [id number] Jul, [facility] [place] [address] [address] Jul, Anxiety F41.9 and Depression F32.9 [facility] [place] [address] [address] Jul, [facility] [place] [address] [facility] [id number] [address] [place] [id number] Jun, Epigastric pain R10.13 [facility] [place] [address] [id number] [address] [place] [id number] Jun, [facility] [place] [address] [facility] [id number] [address] [place] [id number] Jun, [facility] [place] [address] [facility] [id number] [address] [place] [id number] May, [facility] [place] [address] [facility] [id number] [address] [place] [id number] May, [facility] [place] [address] [facility] [id number] [address] [place] [id number] Apr, [facility] [place] [address] [facility] [id number] [address] [place] [id number] Mar, Anxiety state, unspecified 3 00.00 ; Depression 311 ; Prediabetes 790.29 ; Generalized osteoarthrosis, involving multiple sites 715.09 and Hypertension 401.9 [facility] [place] [address] [facility] [id number] [address] [place] [id number] Mar, [facility] [place] [address] [facility] [id number] [address] [place] [id number] Feb, [facility] [place] [address] [facility] [id number] [address] [place] [id number] Jan, [facility] [place] [address] [facility] [id number] [address] [place] [id number] Jan, [facility] [place] [address] [facility] [id number] [address] [place] [id number] Jan, Generalized osteoarthrosis, involving multiple sites 715.09 [facility] [place] [address] [facility] [id number] [address] [place] [id number] Jan, Hx of renal cell cancer V10. 52 [facility] [place] [address] [place] [id number] [address] [place] [id number] Dec, Generalized osteoarthrosis, involving multiple sites 715.09 and Hx of renal cell cancer V10.52 [facility] [place] [address] [id number] [address] [place] [id number] Dec, [facility] [place] [address] [id number] [address] [place] [id number] Dec, [facility] [place] [address] [id number] [address] [place] [id number] November, [facility] [place] [address] [id number] [address] [place] [id number] Oct, [facility] [place] [address] [id number] [address] [place] [id number] Oct, [facility] [place] [address] [id number] [address] [place] [id number] Sep, [facility] [place] [address] [id number] [address] [place] [id number] Sep, [facility] [place] [address] [id number] [address] [place] [id number] Sep, [facility] [place] [address] [id number] [address] [place] [id number] Sep, [facility] [place] [address] [id number] [address] [place] [id number] Aug, [facility] [place] [address] [id number] [address] [place] [id number] Aug, IMMUNIZATIONS No Known Immunizations SOCIAL HISTORY [...]
--- OUTSIDE RECORDS SUMMARY | 2020-02-08 07:23 | XMS REPORT ---
Author Author Emilee MAY Organization [facility] Address [address] [place] [address] Care Team Providers Care Hosting Engineer Name Role Phone LALOJEZALBANIA Unavailable PROBLEMS Type Condition ICD9-CM Code ZZN57-AT Code Onset Dates Condition S tatus SNOMED Code Problem Mixed hyperlipidemia E78.2 Active 010393060 Problem Fatty liver K76.0 Active 79667990 7 Problem Obstructive sleep apnea G47.33 Active 45176517 Problem Allergic rhinitis, unspecified J30.9 Active 48570456 Problem Essential hypertension I10 Active 47736422 Problem History of renal cell cancer Z85.528 A ctive 130927674 Problem Prediabetes R73.09 Active 0250445 Problem Diastolic dysfunction I51.9 Active 6174782 Problem Body mass index (bmi) 50-59.9 , adult Z68.43 Active 587534035 Problem Paresthesia of both hands R20.2 Acti ve 241374477 Problem Habitual self-excoriation F42.4 Acti ve 456620544 Problem BMI 50.0-59.9, adult Z68.43 Active 581964853 Problem Restrictive lung disease J98.4 Activ e 87131061 Problem Splenic artery aneurysm I72.8 Active 80976648 Problem Liver mass R16.0 Active 287023518 Problem Generalized anxiety disorder F41.1 A ctive 88755391 Problem Major depressive disorder, recurrent episode, mild degree F33.0 Active 504848876 Problem Excoriation, neurotic L98.1 Active 75510542 Problem History of tobacco use Z87.891 Active 1728827737546 Problem Primary osteoarthritis involving multiple joints M 15.0 Active 879096762 Problem Isolated proteinuria without specific morphologic lesion R80.0 Active 88290752 Problem 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 Active 284489037 Problem Pulmonary emphysema, unspecified emphysema type J4 3.9 Active 38424139 Problem Chronic prescription opiate use Z79.899 Active 061122690 Problem Tobacco use Z72.0 Active 06010341 0 Problem Bilateral carpal tunnel syndrome G56.03 Active 79167538 Problem Chronic prescription benzodiazepine use Z79.899 Active 019474226 ALLERGIES No Information ENCOUNTERS Encounter Location Date Diagnosis [facility] [address] [id number] [place] [id number] Feb, [facility] [address] [id number] [place] [address] 08 Feb, 2018 [facility] [address] [facility] [id number] [address] [place] [id number] Jan, [facility] [address] [address] Jan, [facility] [address] [id number] [place] [address] Dec, BMI 50.0-59.9, adult Z68.43 and Weight loss counseling, encounter for Z71.3 [facility] [id number] [place] [address] Dec, [facility] [address] [address] Dec, [facility] [address] [id number] [place] [address] November, [facility] [id number] [place] [id number] November, [facility] [address] [id number] [address] [place] [address] November, Pulmonary emphysema, unspeci fied emphysema type J43.9 ; Restrictive lung disease J98.4 ; BMI 50.0-59.9, adult Z68.43 ; History of renal cell cancer Z85.528 ; Essential hypertension I10 ; Mixed hyperlipidemia E78.2 and Fatty liver K76.0 [facility] [id number] [place] [address] November, Generalized anxiety disorder F41.1 [facility] [address] [id number] [address] [place] [address] November, Generalized anxiety disorder F41.1 and Major depressive disorder, recurrent episode, mild degree F33.0 [facility] [address] [id number] [address] [place] [address] November, Generalized anxiety disorder F41.1 ; Major depressive disorder, recurrent episode, mild degree F33.0 and Habitual self-excoriation F42.4 [facility] [address] [id number] [address] [place] [address] November, [facility] [address] [id number] [address] [place] [address] Oct, Generalized anxiety disorder F41.1 [facility] [address] [facility] [id number] [address] [place] [address] Oct, [facility] [address] [facility] [id number] [address] [place] [address] Oct, Influenza-like illness R69 [facility] [address] [id number] [address] [place] [address] Sep, Influenza-like illness R69 [facility] [address] [facility] [id number] [address] [place] [address] Sep, Generalized anxiety disorder F41.1 [facility] [address] [facility] [id number] [address] [place] [address] Sep, [facility] [address] [id number] [address] [place] [address] Aug, [facility] [address] [facility] [id number] [address] [place] [address] Aug, [facility] [address] [facility] [id number] [address] [place] [address] Aug, Generalized anxiety disorder F41.1 [facility] [address] [facility] [id number] [address] [place] [address] Aug, Influenza-like illness R69 a nd BMI 50.0-59.9, adult Z68.43 [facility] [id number] [place] [address] Jul, Fatty liver K76.0 ; Restrict jean-paul lung disease J98.4 ; Diastolic dysfunction I51.9 ; Body mass index (bmi) 50-59.9 , adult Z68.43 and Chronic prescription opiate use Z79.899 [facility] [id number] [place] [address] Jul, Generalized anxiety disorder F41.1 [facility] [address] [id number] [place] [address] Jul, Generalized anxiety disorder F41.1 [place] [address] [address] Jul, Primary osteoarthritis invol ving multiple joints M15.0 [facility] [id number] [place] [address] Jun, Generalized anxiety disorder F41.1 [facility] [place] [id number] [place] [address] Jun, [facility] [place] [id number] [place] [address] Jun, Mixed hyperlipidemia E78.2 [place] [id number] [place] [address] Jun, Generalized anxiety disorder F41.1 [place] [id number] [place] [address] Jun, Generalized anxiety disorder F41.1 ; Major depressive disorder, recurrent episode, mild degree F33.0 and Habitual self-excoriation F42.4 [place] [id number] [place] [address] May, [place] [id number] [place] [address] May, Generalized anxiety disorder F41.1 [facility] [address] [id number] [address] [place] [address] May, Generalized anxiety disorder F41.1 [facility] [address] [id number] [address] [place] [address] May, Primary osteoarthritis invol ving multiple joints M15.0 [facility] [address] [id number] [address] [place] [address] Apr, Major depressive disorder, r ecurrent episode, mild degree F33.0 ; Generalized anxiety disorder F41.1 and Excoriation, neurotic L98.1 [facility] [address] [id number] [address] [place] [address] Apr, Primary osteoarthritis invol ving multiple joints M15.0 [facility] [address] [facility] [id number] [address] [place] [address] Apr, Essential hypertension I10 a nd Mixed hyperlipidemia E78.2 [facility] [address] [id number] [address] [place] [address] Apr, Generalized anxiety disorder F41.1 ; Major depressive disorder, recurrent episode, mild degree F33.0 and Habitual self-excoriation F42.4 [facility] [address] [id number] [address] [place] [address] Mar, Generalized anxiety disorder F41.1 ; Major depressive disorder, recurrent episode, mild degree F33.0 and Habitual self-excoriation F42.4 [facility] [address] [id number] [address] [place] [address] Mar, Skin lesion L98.9 [facility] [address] [id number] [address] [place] [address] Mar, Primary osteoarthritis invol ving multiple joints M15.0 [facility] [address] [facility] [id number] [address] [place] [address] Mar, [place] [address] [facility] [id number] [address] [place] [address] Mar, [place] [address] [facility] [id number] [address] [place] [address] Feb, Major depressive disorder, r ecurrent episode, mild degree F33.0 ; Generalized anxiety disorder F41.1 and Excoriation, neurotic L98.1 [place] [address] [facility] [id number] [address] [place] [address] Feb, Generalized anxiety disorder F41.1 [place] [address] [facility] [id number] [address] [place] [address] Feb, Primary osteoarthritis invol ving multiple joints M15.0 [place] [id number] [place] [address] Jan, [place] [id number] [place] [address] Jan, Essential hypertension I10 ; Splenic artery aneurysm I72.8 ; Liver mass R16.0 ; Restrictive lung disease J98.4 ; Primary osteoarthritis involving multiple joints M15.0 ; Mixed hyperlipidemia E78.2 ; Bilateral carpal tunnel syndrome G56.03 ; Body mass index (bmi) 50-59.9 , adult Z68.43 and History of tobacco use Z87.891 [place] [address] [facility] [id number] [address] [place] [address] Jan, Major depressive disorder, r ecurrent episode, mild degree F33.0 and Generalized anxiety disorder F41.1 [place] [address] [facility] [id number] [address] [place] [address] Jan, [place] [id number] [place] [address] Jan, Generalized anxiety disorder F41.1 and Major depressive disorder, recurrent episode, mild degree F33.0 [place] [address] [facility] [id number] [address] [place] [address] Dec, Primary osteoarthritis invol ving multiple joints M15.0 [facility] [address] [facility] [id number] [address] [place] [address] Dec, Generalized anxiety disorder F41.1 [facility] [address] [facility] [id number] [address] [place] [address] Dec, [facility] [address] [facility] [id number] [address] [place] [address] Dec, Major depressive disorder, r ecurrent episode, mild degree F33.0 and Generalized anxiety disorder F41.1 [facility] [address] [facility] [id number] [address] [place] [address] Dec, Generalized anxiety disorder F41.1 and Major depressive disorder, recurrent episode, mild degree F33.0 [facility] [address] [facility] [id number] [address] [place] [address] November, Mild major depression F32.0 and Primary osteoarthritis involving multiple joints M15.0 [facility] [address] [facility] [id number] [address] [place] [address] November, Major depressive disorder, r ecurrent episode, mild degree F33.0 and Generalized anxiety disorder F41.1 [place] [address] [facility] [id number] [address] [place] [address] November, Primary osteoarthritis invol ving multiple joints M15.0 ; Essential hypertension I10 ; Prediabetes R73.09 ; Mixed hyperlipidemia E78.2 ; Chronic prescription benzodiazepine use Z79.899 ; Chronic prescription opiate use Z79.899 ; Tobacco use Z72.0 ; Bilateral carpal tunnel syndrome G56.03 and Body mass index (bmi) 50-59.9 , adult Z68.43 [place] [address] [facility] [id number] [address] [place] [address] November, Primary osteoarthritis invol ving multiple joints M15.0 and Mild major depression F32.0 [facility] [address] [facility] [id number] [address] [place] [address] Oct, [facility] [address] [address] Oct, Primary osteoarthritis invol ving multiple joints M15.0 ; Essential hypertension I10 ; Prediabetes R73.09 ; Chronic prescription benzodiazepine use Z79.899 ; Chronic prescription opiate use Z79.899 ; Tobacco use Z72.0 ; Mixed hyperlipidemia E78.2 ; Bilateral carpal tunnel syndrome G56.03 ; Body mass index (bmi) 50-59.9 , adult Z68.43 and Encounter for immunization Z23 [place] [address] [address] Oct, Major depressive disorder, r ecurrent episode, mild degree F33.0 and Generalized anxiety disorder F41.1 [place] [address] [address] Oct, [place] [address] [address] Oct, [place] [address] [address] Sep, Mild major depression F32.0 [place] [address] [address] Sep, [place] [address] [address] Sep, Mild major depression F32.0 and Generalized anxiety disorder F41.1 [place] [address] [address] Sep, Paresthesia of both hands R2 0.2 and Cervical radiculopathy M54.12 [place] [address] [address] Sep, [place] [address] [address] Sep, [place] [address] [address] Aug, Paresthesia of both hands R2 0.2 and Neck pain M54.2 [facility] [address] [facility] [id number] [address] [place] [address] Aug, [facility] [address] [facility] [id number] [address] [place] [address] Jul, Neck pain M54.2 and Paresthe eddie of both hands R20.2 [place] [address] [facility] [id number] [address] [place] [address] Jul, Proteinuria, unspecified typ e R80.9 [place] [address] [facility] [id number] [address] [place] [address] Jul, Proteinuria, unspecified typ e R80.9 [place] [address] [facility] [id number] [address] [place] [address] Jul, [place] [id number] [place] [address] Jul, Other specified transient ce rebral ischemias G45.8 [place] [address] [facility] [id number] [address] [place] [address] Jun, Diastolic dysfunction I51.9 [place] [address] [facility] [id number] [address] [place] [address] Jun, Diastolic dysfunction I51.9 [place] [address] [facility] [id number] [address] [place] [address] Jun, Major depressive disorder, s david episode, unspecified F32.9 and Anxiety disorder, unspecified F41.9 [facility] [address] [facility] [id number] [address] [place] [address] Jun, [place] [address] [facility] [id number] [address] [place] [address] Jun, [facility] [address] [facility] [id number] [address] [place] [address] May, Moderate major depression F3 2.1 and Generalized anxiety disorder F41.1 [facility] [address] [facility] [id number] [address] [place] [address] 16 May, 2016 Major depressive disorder, s david episode, unspecified F32.9 and Anxiety disorder, unspecified F41.9 [facility] [address] [facility] [id number] [address] [place] [address] 15 May, 2016 [facility] [id number] [place] [address] 14 May, 2016 Liver enzyme elevation R74.8 [facility] [address] [facility] [id number] [address] [place] [address] 14 May, 2016 Liver enzyme elevation R74.8 [facility] [id number] [place] [address] 10 May, 2016 Shortness of breath on exert ion R06.02 ; Essential hypertension I10 ; Mixed hyperlipidemia E78.2 and Tobacco use Z72.0 [facility] [id number] [place] [address] 03 May, 2016 [facility] [id number] [place] [address] 02 May, 2016 [facility] [id number] [place] [id number] 06 Apr, 2016 Anxiety F41.9 and Depression F32.9 [facility] [id number] [place] [address] Apr, [facility] [address] [facility] [id number] [address] [place] [address] Apr, [facility] [address] [facility] [id number] [address] [place] [address] Mar, Depression F32.9 and Anxiety F41.9 [facility] [address] [facility] [id number] [address] [place] [address] 08 Mar, 2016 Anxiety F41.9 and Depression F32.9 [facility] [id number] [place] [address] Mar, Well woman exam (no gynecolo gical exam) Z00.00 [facility] [address] [id number] [address] [place] [address] Mar, [facility] [address] [id number] [address] [place] [address] Mar, [facility] [address] [id number] [address] [place] [id number] Feb, Dental caries K02.9 [facility] [address] [id number] [address] [place] [address] Feb, [facility] [address] [id number] [address] [place] [address] Feb, Anxiety F41.9 and Depression F32.9 [facility] [address] [id number] [address] [place] [id number] Feb, Dental examination Z01.20 [facility] [address] [id number] [address] [place] [address] Feb, [facility] [address] [id number] [address] [place] [address] Feb, [facility] [address] [id number] [address] [place] [address] Feb, Anxiety F41.9 and Depression F32.9 [facility] [address] [id number] [address] [place] [address] Jan, Severe episode of recurrent major depressive disorder, without psychotic features F33.2 and Anxiety disorder, unspecified F41.9 [facility] [address] [id number] [address] [place] [address] Jan, [facility] [address] [id number] [address] [place] [address] Dec, [facility] [address] [id number] [address] [place] [address] Dec, Anxiety F41.9 and Depression F32.9 [facility] [address] [id number] [address] [place] [address] 24 Dec, 2015 Other specified transient ce rebral ischemias G45.8 and Nocturnal hypoxia G47.34 [facility] [address] [id number] [address] [place] [address] 18 Dec, 2015 [facility] [address] [id number] [address] [place] [address] 17 Dec, 2015 Other specified transient ce rebral ischemias G45.8 [place] [address] [id number] [address] [place] [address] 16 Dec, 2015 Severe episode of recurrent major depressive disorder, without psychotic features F33.2 and Anxiety disorder, unspecified F41.9 [place] [address] [id number] [address] [place] [address] Dec, [facility] [address] [id number] [address] [place] [address] Dec, Anxiety F41.9 and Depression F32.9 [place] [address] [id number] [address] [place] [address] Dec, Anxiety F41.9 and Depression F32.9 [place] [address] [id number] [address] [place] [address] Dec, [facility] [address] [id number] [address] [place] [address] November, Anxiety F41.9 and Depression F32.9 [facility] [address] [id number] [address] [place] [address] November, Severe episode of recurrent major depressive disorder, without psychotic features F33.2 [facility] [address] [id number] [address] [place] [address] November, Mixed hyperlipidemia E78.2 [facility] [address] [id number] [address] [place] [address] 10 Nov, 2015 Anxiety F41.9 and Depression F32.9 [place] [address] [address] 05 Nov, 2015 Prediabetes R73.09 ; Essenti al hypertension I10 ; Anxiety F41.9 ; Depression F32.9 ; Gastroesophageal reflux disease, esophagitis presence not specified K21.9 ; Primary osteoarthritis involving multiple joints M15.0 ; History of renal cell cancer Z85.528 ; Postnasal drip R09.82 ; Allergic rhinitis, unspecified J30.9 and Tobacco use Z72.0 [place] [address] [address] Oct, Anxiety F41.9 and Depression F32.9 [place] [address] [address] Oct, [place] [address] [address] Oct, [place] [address] [address] 14 Sep, 2015 Splenic artery aneurysm I72. 8 [place] [address] [address] 10 Sep, 2015 Depression F32.9 ; Anxiety F 41.9 ; Chronic prescription benzodiazepine use Z79.899 and Splenic artery aneurysm I72.8 [place] [address] [address] Sep, Depression F32.9 and Anxiety F41.9 [place] [address] [address] Sep, [place] [address] [address] 18 Aug, 2015 Dehydration E86.0 ; Diarrhea R19.7 ; Nausea R11.0 and Generalized abdominal pain R10.84 [place] [address] [place] [address] Aug, [facility] [address] [facility] [id number] [address] [place] [address] Jul, Depression F32.9 [facility] [address] [facility] [id number] [address] [place] [address] Jul, [facility] [address] [id number] [address] [place] [id number] Jul, Anxiety F41.9 and Depression F32.9 [facility] [address] [facility] [id number] [place] [id number] Jul, [facility] [address] [place] [id number] [place] [id number] Jun, Epigastric pain R10.13 [facility] [address] [place] [id number] [place] [id number] Jun, [facility] [address] [place] [id number] [address] [place] [id number] Jun, [facility] [address] [place] [id number] [place] [id number] May, [facility] [address] [place] [id number] [address] [place] [id number] May, [facility] [address] [place] [id number] [address] [place] [id number] Apr, [facility] [address] [place] [id number] [address] [place] [id number] Mar, Anxiety state, unspecified 3 00.00 ; Depression 311 ; Prediabetes 790.29 ; Generalized osteoarthrosis, involving multiple sites 715.09 and Hypertension 401.9 [facility] [address] [facility] [id number] [place] [id number] Mar, [facility] [address] [place] [id number] [place] [phone] Feb, [facility] [address] [id number] [place] [phone] 14 Jan, 2015 [facility] [place] [address] [id number] [place] [phone] Jan, [facility] [place] [address] [id number] [place] [id number] Jan, Generalized osteoarthrosis, involving multiple sites 715.09 [facility] [place] [address] [id number] [place] [id number] 07 Jan, 2015 Hx of renal cell cancer V10. 52 [facility] [place] [address] [id number] [address] [place] [phone] Dec, Generalized osteoarthrosis, involving multiple sites 715.09 and Hx of renal cell cancer V10.52 [facility] [address] [id number] [address] [place] [id number] 24 Dec, 2014 [facility] [place] [address] [id number] [address] [place] [phone] Dec, [facility] [place] [address] [id number] [address] [place] [phone] November, [facility] [place] [address] [id number] [address] [place] [phone] Oct, [facility] [place] [address] [id number] [address] [place] [phone] Oct, [facility] [place] [address] [id number] [address] [place] [phone] Sep, [facility] [address] [id number] [address] [place] [phone] Sep, [facility] [place] [address] [id number] [address] [place] [id number] Sep, [facility] [place] [address] [id number] [address] [place] [phone] Sep, [facility] [place] [address] [id number] [address] [place] [phone] Aug, [facility] [address] [facility] [id number] [address] [place] [id number] Aug, IMMUNIZATIONS No Known Immunizations SOCIAL HISTORY Never Assessed REASON FOR VISIT PFT results PLAN OF CARE VITAL SIGNS MEDICATIONS Unknown [...]
--- OUTSIDE RECORDS SUMMARY | 2020-02-08 07:23 | XMS REPORT ---
Author Author Emilee MAY Organization [facility] Address [address] [place] [address] Care Team Providers Care National Account Manager Name Role Phone LALOJEZALBANIA Unavailable PROBLEMS Type Condition ICD9-CM Code TJS39-LS Code Onset Dates Condition S tatus SNOMED Code Problem History of renal cell cancer Z85.528 A ctive 561495155 Problem Diastolic dysfunction I51.9 Active 3731337 Problem Chronic prescription opiate use Z79.899 Active 239048796 Problem Excoriation, neurotic L98.1 Active 56828889 Problem Essential hypertension I10 Active 50770644 Problem History of tobacco use Z87.891 Active 7185798553626 Problem Restrictive lung disease J98.4 Activ e 58257187 Problem Splenic artery aneurysm I72.8 Active 77792027 Problem Body mass index (bmi) 50-59.9 , adult Z68.43 Active 919915910 Problem Paresthesia of both hands R20.2 Acti ve 503458495 Problem Generalized anxiety disorder F41.1 A ctive 45607508 Problem Major depressive disorder, recurrent episode, mild degree F33.0 Active 307813291 Problem Isolated proteinuria without specific morphologic lesion R80.0 Active 31763127 Problem Fatty liver K76.0 Active 91548549 7 Problem Primary osteoarthritis involving multiple joints M 15.0 Active 629046236 Problem Bilateral carpal tunnel syndrome G56.03 Active 31032073 Problem Mixed hyperlipidemia E78.2 Active 426655595 Problem Chronic prescription benzodiazepine use Z79.899 Active 839350156 Problem Prediabetes R73.09 Active 7292728 Problem Obstructive sleep apnea G47.33 Active 56731433 Problem Tobacco use Z72.0 Active 26309268 0 Problem Liver mass R16.0 Active 751025977 Problem 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
--- OUTSIDE RECORDS SUMMARY | 2020-02-08 07:23 | XMS REPORT ---
Author Author Emilee MAY Organization [facility] Address [address] [place] [address] Care Team Providers Care Utility Appraiser Name Role Phone LALOJEZALBANIA Unavailable PROBLEMS Type Condition ICD9-CM Code HVF04-RR Code Onset Dates Condition S tatus SNOMED Code Problem Allergic rhinitis, unspecified J30.9 Active 39453055 Problem Diastolic dysfunction I51.9 Active 3296316 Problem History of renal cell cancer Z85.528 A ctive 761533374 Problem Excoriation, neurotic L98.1 Active 68637989 Problem Prediabetes R73.09 Active 0963014 Problem History of tobacco use Z87.891 Active 7907786123656 Problem Essential hypertension I10 Active 90537691 Problem Obstructive sleep apnea G47.33 Active 11535309 Problem Body mass index (bmi) 50-59.9 , adult Z68.43 Active 289252939 Problem Paresthesia of both hands R20.2 Acti ve 928407808 Problem Generalized anxiety disorder F41.1 A ctive 89850199 Problem Major depressive disorder, recurrent episode, mild degree F33.0 Active 658702315 Problem Restrictive lung disease J98.4 Activ e 90495313 Problem 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 Active 004569282 Problem Liver mass R16.0 Active 589339170 Problem Splenic artery aneurysm I72.8 Active 20009528 Problem Bilateral carpal tunnel syndrome G56.03 Active 74337345 Problem Chronic prescription benzodiazepine use Z79.899 Active 112082630 Problem Mixed hyperlipidemia E78.2 Active 683322920 Problem Primary osteoarthritis involving multiple joints M 15.0 Active 841509052 Problem Chronic prescription opiate use Z79.899 Active 571147923 Problem Fatty liver K76.0 Active 92109981 7 Problem Isolated proteinuria without specific morphologic lesion R80.0 Active 75181862 Problem Tobacco use Z72.0 Active 91668412 0 ALLERGIES No Information SOCIAL HISTORY Never Assessed PLAN OF CARE VITAL SIGNS MEDICATIONS Unknown Medications RESULTS Name Result Date Reference Range LIPID PANEL 2016-12-06 Cholesterol, Total 125 100-199 Triglycerides 185 0-149 HDL Cholesterol 42 >39 VLDL Cholesterol Fazal 37 5-40 LDL Cholesterol Calc 46 0-99 Comment: [facility] 2016-12-06 Glucose, Serum 101 65-99 BUN 18 8-27 Creatinine, Serum 0.94 0.57-1.00 eGFR If NonAfricn Am 66 >59 eGFR If Africn Am 76 >59 BUN/Creatinine Ratio 19 12-28 Sodium, Serum 145 134-144 Potassium, Serum 4.5 3.5-5.2 Chloride, Serum 106 96-106 Carbon Dioxide, Total 26 18-29 Calcium, Serum 9.2 8.7-10.3 Protein, Total, Serum 6.8 6.0-8.5 Albumin, Serum 4.3 3.6-4.8 Globulin, Total 2.5 1.5-4.5 A/G Ratio 1.7 1.2-2.2 Bilirubin, Total 0.3 0.0-1.2 Alkaline Phosphatase, S 133 39-117 AST (SGOT) 21 0-40 ALT (SGPT) 29 0-32 CBC 2016-12-06 WBC 7.3 3.4-10.8 RBC 4.21 3.77-5.28 Hemoglobin 12.1 11.1-15.9 Hematocrit 37.1 34.0-46.6 MCV 88 79-97 MCH 28.7 26.6-33.0 MCHC 32.6 31.5-35.7 RDW 14.2 12.3-15.4 Platelets 197 150-379 Neutrophils 40 Lymphs 48 Monocytes 8 Eos 4 Basos 0 Neutrophils (Absolute) 3.0 1.4-7.0 Lymphs (Absolute) 3.5 0.7-3.1 Monocytes(Absolute) 0.6 0.1-0.9 Eos (Absolute) 0.3 0.0-0.4 Baso (Absolute) 0.0 0.0-0.2 Immature Granulocytes 0 Immature Grans (Abs) 0.0 0.0-0.1 LIPID PANEL 2016-12-06 Cholesterol, Total 125 100-199 Triglycerides 185 0-149 HDL Cholesterol 42 >39 VLDL Cholesterol Fazal 37 5-40 LDL Cholesterol Calc 46 0-99 Comment: [facility] 2016-12-06 Glucose, Serum 101 65-99 BUN 18 8-27 Creatinine, Serum 0.94 0.57-1.00 eGFR If NonAfricn Am 66 >59 eGFR If Africn Am 76 >59 BUN/Creatinine Ratio 19 12-28 Sodium, Serum 145 134-144 Potassium, Serum 4.5 3.5-5.2 Chloride, Serum 106 96-106 Carbon Dioxide, Total 26 18-29 Calcium, Serum 9.2 8.7-10.3 Protein, Total, Serum 6.8 6.0-8.5 Albumin, Serum 4.3 3.6-4.8 Globulin, Total 2.5 1.5-4.5 A/G Ratio 1.7 1.2-2.2 Bilirubin, Total 0.3 0.0-1.2 Alkaline Phosphatase, S 133 39-117 AST (SGOT) 21 0-40 ALT (SGPT) 29 0-32 PROCEDURES Procedure Date Ordered Result Body Site LAB [facility] December 06, 2016 VENIPUNCT, ROUTINE* December 06, 2016 IMMUNIZATIONS No Known Immunizations MEDICAL (GENERAL) [...]
--- OUTSIDE RECORDS SUMMARY | 2020-02-08 07:23 | XMS REPORT ---
Author Author Emilee MAY Organization [facility] Address [address] [place] [address] Care Team Providers Care Ceo Ziff Davis Name Role Phone LALOJEZALBANIA Unavailable PROBLEMS Type Condition ICD9-CM Code VXQ77-AH Code Onset Dates Condition S tatus SNOMED Code Problem Mixed hyperlipidemia E78.2 Active 686679999 Problem Fatty liver K76.0 Active 49727935 7 Problem Obstructive sleep apnea G47.33 Active 10657543 Problem Allergic rhinitis, unspecified J30.9 Active 87841333 Problem Essential hypertension I10 Active 98658274 Problem History of renal cell cancer Z85.528 A ctive 673181201 Problem Prediabetes R73.09 Active 0883647 Problem Diastolic dysfunction I51.9 Active 1424841 Problem Body mass index (bmi) 50-59.9 , adult Z68.43 Active 466514885 Problem Paresthesia of both hands R20.2 Acti ve 339101664 Problem Habitual self-excoriation F42.4 Acti ve 607182625 Problem BMI 50.0-59.9, adult Z68.43 Active 208766580 Problem Restrictive lung disease J98.4 Activ e 05708009 Problem Splenic artery aneurysm I72.8 Active 88631904 Problem Liver mass R16.0 Active 326829223 Problem Generalized anxiety disorder F41.1 A ctive 67240612 Problem Major depressive disorder, recurrent episode, mild degree F33.0 Active 291251097 Problem Excoriation, neurotic L98.1 Active 27655548 Problem History of tobacco use Z87.891 Active 9497596108683 Problem Primary osteoarthritis involving multiple joints M 15.0 Active 405226970 Problem Isolated proteinuria without specific morphologic lesion R80.0 Active 36878416 Problem 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 Active 227228263 Problem Pulmonary emphysema, unspecified emphysema type J4 3.9 Active 39037715 Problem Chronic prescription opiate use Z79.899 Active 037919832 Problem Tobacco use Z72.0 Active 32152072 0 Problem Bilateral carpal tunnel syndrome G56.03 Active 37806106 Problem Chronic prescription benzodiazepine use Z79.899 Active 778413343 ALLERGIES No Information ENCOUNTERS Encounter Location Date Diagnosis [facility] [address] [id number] [address] [place] [phone] Feb, [facility] [address] [id number] [address] [place] [id number] 08 Feb, 2018 [facility] [address] [facility] [id number] [address] [place] [id number] Jan, [facility] [address] [phone] Jan, [facility] [address] [id number] [address] [place] [id number] Dec, BMI 50.0-59.9, adult Z68.43 and Weight loss counseling, encounter for Z71.3 [facility] [address] [id number] [address] [place] [phone] Dec, [facility] [address] [id number] Dec, [facility] [address] [id number] [address] [place] [address] November, [facility] [address] [id number] [address] [place] [phone] November, [facility] [address] [id number] [address] [place] [address] November, Pulmonary emphysema, unspeci fied emphysema type J43.9 ; Restrictive lung disease J98.4 ; BMI 50.0-59.9, adult Z68.43 ; History of renal cell cancer Z85.528 ; Essential hypertension I10 ; Mixed hyperlipidemia E78.2 and Fatty liver K76.0 [facility] [address] [id number] [address] [place] [id number] November, Generalized anxiety disorder F41.1 [facility] [address] [id number] [address] [place] [id number] November, Generalized anxiety disorder F41.1 and Major depressive disorder, recurrent episode, mild degree F33.0 [facility] [address] [id number] [address] [place] [phone] November, Generalized anxiety disorder F41.1 ; Major depressive disorder, recurrent episode, mild degree F33.0 and Habitual self-excoriation F42.4 [facility] [address] [id number] [address] [place] [id number] November, [facility] [address] [id number] [address] [place] [id number] Oct, Generalized anxiety disorder F41.1 [facility] [address] [facility] [id number] [address] [place] [id number] Oct, [facility] [address] [facility] [id number] [address] [place] [id number] Oct, Influenza-like illness R69 [facility] [address] [id number] [address] [place] [id number] Sep, Influenza-like illness R69 [facility] [address] [facility] [id number] [address] [place] [phone] Sep, Generalized anxiety disorder F41.1 [facility] [address] [facility] [id number] [address] [place] [address] Sep, [facility] [address] [id number] [address] [place] [phone] Aug, [facility] [address] [facility] [id number] [address] [place] [id number] Aug, [facility] [address] [facility] [id number] [address] [place] [address] Aug, Generalized anxiety disorder F41.1 [facility] [address] [facility] [id number] [address] [place] [address] Aug, Influenza-like illness R69 a nd BMI 50.0-59.9, adult Z68.43 [place] [address] [id number] [address] [place] [address] Jul, Fatty liver K76.0 ; Restrict jean-paul lung disease J98.4 ; Diastolic dysfunction I51.9 ; Body mass index (bmi) 50-59.9 , adult Z68.43 and Chronic prescription opiate use Z79.899 [place] [address] [id number] [address] [place] [address] Jul, Generalized anxiety disorder F41.1 [facility] [id number] [address] [place] [id number] Jul, Generalized anxiety disorder F41.1 [place] [address] [address] Jul, Primary osteoarthritis invol ving multiple joints M15.0 [place] [address] [id number] [address] [place] [address] Jun, Generalized anxiety disorder F41.1 [place] [address] [id number] [address] [place] [address] Jun, [place] [address] [id number] [address] [place] [id number] Jun, Mixed hyperlipidemia E78.2 [place] [id number] [address] [place] [address] Jun, Generalized anxiety disorder F41.1 [place] [id number] [address] [place] [address] Jun, Generalized anxiety disorder F41.1 ; Major depressive disorder, recurrent episode, mild degree F33.0 and Habitual self-excoriation F42.4 [place] [id number] [address] [place] [address] May, [place] [address] [id number] [address] [place] [address] May, Generalized anxiety disorder F41.1 [facility] [address] [id number] [address] [place] [address] May, Generalized anxiety disorder F41.1 [facility] [address] [id number] [address] [place] [id number] May, Primary osteoarthritis invol ving multiple joints M15.0 [facility] [address] [id number] [address] [place] [address] Apr, Major depressive disorder, r ecurrent episode, mild degree F33.0 ; Generalized anxiety disorder F41.1 and Excoriation, neurotic L98.1 [facility] [address] [id number] [address] [place] [address] Apr, Primary osteoarthritis invol ving multiple joints M15.0 [facility] [address] [facility] [id number] [address] [place] [address] Apr, Essential hypertension I10 a nd Mixed hyperlipidemia E78.2 [facility] [address] [id number] [address] [place] [address] Apr, Generalized anxiety disorder F41.1 ; Major depressive disorder, recurrent episode, mild degree F33.0 and Habitual self-excoriation F42.4 [facility] [address] [id number] [address] [place] [address] Mar, Generalized anxiety disorder F41.1 ; Major depressive disorder, recurrent episode, mild degree F33.0 and Habitual self-excoriation F42.4 [facility] [address] [id number] [address] [place] [address] Mar, Skin lesion L98.9 [facility] [address] [id number] [address] [place] [address] Mar, Primary osteoarthritis invol ving multiple joints M15.0 [facility] [address] [facility] [id number] [address] [place] [address] Mar, [place] [address] [facility] [id number] [address] [place] [address] Mar, [place] [address] [facility] [id number] [address] [place] [address] Feb, Major depressive disorder, r ecurrent episode, mild degree F33.0 ; Generalized anxiety disorder F41.1 and Excoriation, neurotic L98.1 [place] [address] [facility] [id number] [address] [place] [address] Feb, Generalized anxiety disorder F41.1 [place] [address] [facility] [id number] [address] [place] [address] Feb, Primary osteoarthritis invol ving multiple joints M15.0 [place] [id number] [place] [address] Jan, [place] [id number] [place] [address] Jan, Essential hypertension I10 ; Splenic artery aneurysm I72.8 ; Liver mass R16.0 ; Restrictive lung disease J98.4 ; Primary osteoarthritis involving multiple joints M15.0 ; Mixed hyperlipidemia E78.2 ; Bilateral carpal tunnel syndrome G56.03 ; Body mass index (bmi) 50-59.9 , adult Z68.43 and History of tobacco use Z87.891 [place] [address] [facility] [id number] [address] [place] [id number] Jan, Major depressive disorder, r ecurrent episode, mild degree F33.0 and Generalized anxiety disorder F41.1 [place] [address] [facility] [id number] [address] [place] [address] Jan, [place] [id number] [place] [address] Jan, Generalized anxiety disorder F41.1 and Major depressive disorder, recurrent episode, mild degree F33.0 [place] [address] [facility] [id number] [address] [place] [address] Dec, Primary osteoarthritis invol ving multiple joints M15.0 [facility] [address] [facility] [id number] [address] [place] [address] Dec, Generalized anxiety disorder F41.1 [facility] [address] [facility] [id number] [address] [place] [id number] Dec, [facility] [address] [facility] [id number] [address] [place] [address] Dec, Major depressive disorder, r ecurrent episode, mild degree F33.0 and Generalized anxiety disorder F41.1 [facility] [address] [facility] [id number] [address] [place] [address] Dec, Generalized anxiety disorder F41.1 and Major depressive disorder, recurrent episode, mild degree F33.0 [facility] [address] [facility] [id number] [address] [place] [address] November, Mild major depression F32.0 and Primary osteoarthritis involving multiple joints M15.0 [facility] [address] [facility] [id number] [address] [place] [address] November, Major depressive disorder, r ecurrent episode, mild degree F33.0 and Generalized anxiety disorder F41.1 [place] [address] [facility] [id number] [address] [place] [address] November, Primary osteoarthritis invol ving multiple joints M15.0 ; Essential hypertension I10 ; Prediabetes R73.09 ; Mixed hyperlipidemia E78.2 ; Chronic prescription benzodiazepine use Z79.899 ; Chronic prescription opiate use Z79.899 ; Tobacco use Z72.0 ; Bilateral carpal tunnel syndrome G56.03 and Body mass index (bmi) 50-59.9 , adult Z68.43 [place] [address] [facility] [id number] [address] [place] [address] November, Primary osteoarthritis invol ving multiple joints M15.0 and Mild major depression F32.0 [facility] [address] [facility] [id number] [address] [place] [address] Oct, [facility] [address] [address] Oct, Primary osteoarthritis invol ving multiple joints M15.0 ; Essential hypertension I10 ; Prediabetes R73.09 ; Chronic prescription benzodiazepine use Z79.899 ; Chronic prescription opiate use Z79.899 ; Tobacco use Z72.0 ; Mixed hyperlipidemia E78.2 ; Bilateral carpal tunnel syndrome G56.03 ; Body mass index (bmi) 50-59.9 , adult Z68.43 and Encounter for immunization Z23 [place] [address] [address] Oct, Major depressive disorder, r ecurrent episode, mild degree F33.0 and Generalized anxiety disorder F41.1 [place] [address] [address] Oct, [place] [address] [address] Oct, [place] [address] [address] Sep, Mild major depression F32.0 [place] [address] [address] Sep, [place] [address] [address] Sep, Mild major depression F32.0 and Generalized anxiety disorder F41.1 [place] [address] [address] Sep, Paresthesia of both hands R2 0.2 and Cervical radiculopathy M54.12 [place] [address] [address] Sep, [place] [address] [address] Sep, [place] [address] [address] Aug, Paresthesia of both hands R2 0.2 and Neck pain M54.2 [facility] [address] [facility] [id number] [address] [place] [address] Aug, [facility] [address] [facility] [id number] [address] [place] [address] Jul, Neck pain M54.2 and Paresthe eddie of both hands R20.2 [place] [address] [facility] [id number] [address] [place] [address] Jul, Proteinuria, unspecified typ e R80.9 [place] [address] [facility] [id number] [address] [place] [address] Jul, Proteinuria, unspecified typ e R80.9 [place] [address] [facility] [id number] [address] [place] [address] Jul, [place] [id number] [address] [place] [address] Jul, Other specified transient ce rebral ischemias G45.8 [place] [address] [facility] [id number] [address] [place] [address] Jun, Diastolic dysfunction I51.9 [place] [address] [facility] [id number] [address] [place] [address] Jun, Diastolic dysfunction I51.9 [place] [address] [facility] [id number] [address] [place] [id number] Jun, Major depressive disorder, s david episode, unspecified F32.9 and Anxiety disorder, unspecified F41.9 [facility] [address] [facility] [id number] [address] [place] [address] Jun, [place] [address] [facility] [id number] [address] [place] [address] Jun, [facility] [address] [facility] [id number] [address] [place] [address] May, Moderate major depression F3 2.1 and Generalized anxiety disorder F41.1 [facility] [address] [facility] [id number] [address] [place] [address] 16 May, 2016 Major depressive disorder, s david episode, unspecified F32.9 and Anxiety disorder, unspecified F41.9 [facility] [address] [facility] [id number] [address] [place] [address] 15 May, 2016 [facility] [id number] [address] 14 May, 2016 Liver enzyme elevation R74.8 [facility] [address] [facility] [id number] [address] [place] [address] 14 May, 2016 Liver enzyme elevation R74.8 [facility] [id number] [place] [address] 10 May, 2016 Shortness of breath on exert ion R06.02 ; Essential hypertension I10 ; Mixed hyperlipidemia E78.2 and Tobacco use Z72.0 [facility] [id number] [place] [address] 03 May, 2016 [facility] [id number] [place] [id number] 02 May, 2016 [facility] [id number] [place] [id number] 06 Apr, 2016 Anxiety F41.9 and Depression F32.9 [facility] [id number] [address] Apr, [facility] [address] [facility] [id number] [address] [place] [id number] Apr, [facility] [address] [facility] [id number] [address] [place] [address] Mar, Depression F32.9 and Anxiety F41.9 [facility] [address] [facility] [id number] [address] [place] [id number] 08 Mar, 2016 Anxiety F41.9 and Depression F32.9 [facility] [id number] [place] [address] Mar, Well woman exam (no gynecolo gical exam) Z00.00 [facility] [address] [id number] [address] [place] [address] Mar, [facility] [address] [id number] [address] [place] [address] Mar, [facility] [address] [id number] [address] [place] [id number] Feb, Dental caries K02.9 [facility] [address] [id number] [address] [place] [address] Feb, [facility] [address] [id number] [address] [place] [phone] Feb, Anxiety F41.9 and Depression F32.9 [facility] [address] [id number] [address] [place] [id number] Feb, Dental examination Z01.20 [facility] [address] [id number] [address] [place] [address] Feb, [facility] [address] [id number] [address] [place] [address] Feb, [facility] [address] [id number] [address] [place] [address] Feb, Anxiety F41.9 and Depression F32.9 [facility] [address] [id number] [address] [place] [address] Jan, Severe episode of recurrent major depressive disorder, without psychotic features F33.2 and Anxiety disorder, unspecified F41.9 [facility] [address] [id number] [address] [place] [phone] Jan, [facility] [address] [id number] [address] [place] [address] Dec, [facility] [address] [id number] [address] [place] [phone] Dec, Anxiety F41.9 and Depression F32.9 [facility] [address] [id number] [address] [place] [id number] 24 Dec, 2015 Other specified transient ce rebral ischemias G45.8 and Nocturnal hypoxia G47.34 [facility] [address] [id number] [address] [place] [address] 18 Dec, 2015 [facility] [address] [id number] [address] [place] [id number] 17 Dec, 2015 Other specified transient ce rebral ischemias G45.8 [place] [address] [id number] [address] [place] [id number] 16 Dec, 2015 Severe episode of recurrent major depressive disorder, without psychotic features F33.2 and Anxiety disorder, unspecified F41.9 [place] [address] [id number] [address] [place] [phone] Dec, [facility] [address] [id number] [address] [place] [id number] Dec, Anxiety F41.9 and Depression F32.9 [place] [address] [id number] [address] [place] [address] Dec, Anxiety F41.9 and Depression F32.9 [place] [address] [id number] [address] [place] [address] Dec, [facility] [address] [id number] [address] [place] [address] November, Anxiety F41.9 and Depression F32.9 [facility] [address] [id number] [address] [place] [id number] November, Severe episode of recurrent major depressive disorder, without psychotic features F33.2 [facility] [address] [id number] [address] [place] [id number] November, Mixed hyperlipidemia E78.2 [facility] [address] [id number] [address] [place] [id number] 10 Nov, 2015 Anxiety F41.9 and Depression F32.9 [place] [address] [address] 05 Nov, 2015 Prediabetes R73.09 ; Essenti al hypertension I10 ; Anxiety F41.9 ; Depression F32.9 ; Gastroesophageal reflux disease, esophagitis presence not specified K21.9 ; Primary osteoarthritis involving multiple joints M15.0 ; History of renal cell cancer Z85.528 ; Postnasal drip R09.82 ; Allergic rhinitis, unspecified J30.9 and Tobacco use Z72.0 [place] [address] [address] Oct, Anxiety F41.9 and Depression F32.9 [place] [address] [address] Oct, [place] [address] [address] Oct, [place] [address] [address] 14 Sep, 2015 Splenic artery aneurysm I72. 8 [place] [address] [address] 10 Sep, 2015 Depression F32.9 ; Anxiety F 41.9 ; Chronic prescription benzodiazepine use Z79.899 and Splenic artery aneurysm I72.8 [place] [address] [address] Sep, Depression F32.9 and Anxiety F41.9 [place] [address] [address] Sep, [place] [address] [address] 18 Aug, 2015 Dehydration E86.0 ; Diarrhea R19.7 ; Nausea R11.0 and Generalized abdominal pain R10.84 [place] [address] [place] [address] Aug, [facility] [address] [facility] [id number] [address] [id number] Jul, Depression F32.9 [facility] [address] [facility] [id number] [address] [place] [phone] Jul, [facility] [address] [id number] [address] [phone] Jul, Anxiety F41.9 and Depression F32.9 [facility] [address] [facility] [id number] [address] [place] [phone] Jul, [facility] [address] [id number] [address] [phone] Jun, Epigastric pain R10.13 [facility] [address] [id number] [address] [phone] Jun, [facility] [address] [id number] [address] [phone] Jun, [facility] [address] [id number] [address] [place] [phone] May, [facility] [address] [id number] [address] [phone] May, [facility] [address] [id number] [address] [place] [phone] Apr, [facility] [address] [id number] [address] [place] [phone] Mar, Anxiety state, unspecified 3 00.00 ; Depression 311 ; Prediabetes 790.29 ; Generalized osteoarthrosis, involving multiple sites 715.09 and Hypertension 401.9 [facility] [address] [facility] [id number] [address] [place] [phone] Mar, [facility] [address] [id number] [address] [phone] Feb, [facility] [address] [id number] [address] [place] [phone] 14 Jan, 2015 [facility] [address] [id number] [address] [phone] Jan, [facility] [address] [id number] [address] [place] [phone] Jan, Generalized osteoarthrosis, involving multiple sites 715.09 [facility] [address] [id number] [address] [place] [phone] 07 Jan, 2015 Hx of renal cell cancer V10. 52 [facility] [address] [id number] [address] [place] [phone] Dec, Generalized osteoarthrosis, involving multiple sites 715.09 and Hx of renal cell cancer V10.52 [facility] [address] [id number] [address] [place] [phone] 24 Dec, 2014 [facility] [address] [id number] [address] [place] [phone] Dec, [facility] [address] [id number] [address] [place] [phone] November, [facility] [address] [id number] [address] [place] [phone] Oct, [facility] [address] [id number] [address] [place] [phone] Oct, [facility] [address] [id number] [address] [place] [phone] Sep, [facility] [address] [id number] [address] [place] [phone] Sep, [facility] [address] [id number] [address] [place] [phone] Sep, [facility] [address] [id number] [address] [place] [phone] Sep, [facility] [address] [id number] [address] [place] [phone] Aug, [facility] [address] [facility] [id number] [address] [place] [phone] Aug, IMMUNIZATIONS No Known Immunizations SOCIAL HISTORY Never Assessed REASON FOR VISIT Controlled Medication Refill PLAN OF CARE VITAL SIGNS MEDICATIONS Medication Instructions Dosage Frequency Start Date End Date Duration S tatus Hydrocodone-Acetaminophen 5-325 MG Orally 2 times a day as n eeded for pain take 1 tablet Aug, 28 Active RESULTS No Results PROCEDURES No [...]
--- OUTSIDE RECORDS SUMMARY | 2020-02-08 07:23 | XMS REPORT ---
Author Author Emilee MAY 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 Active 05297694 Problem Prediabetes R73.09 Active 5420426 Problem History of tobacco use Z87.891 Active 9185230803070 Problem Essential hypertension I10 Active 79316934 Problem Obstructive sleep apnea G47.33 Active 91365631 Problem Body mass index (bmi) 50-59.9 , adult Z68.43 Active 615819468 Problem Paresthesia of both hands R20.2 Acti ve 652215050 Problem Generalized anxiety disorder F41.1 A ctive 98168597 Problem Major depressive disorder, recurrent episode, mild degree F33.0 Active 872668458 Problem Restrictive lung disease J98.4 Activ e 70519368 Problem 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 Active 133709233 Problem Liver mass R16.0 Active 975859317 Problem Splenic artery aneurysm I72.8 Active 47572710 Problem Bilateral carpal tunnel syndrome G56.03 Active 49310476 Problem Chronic prescription benzodiazepine use Z79.899 Active 246228912 Problem Mixed hyperlipidemia E78.2 Active 769533725 Problem Primary osteoarthritis involving multiple joints M 15.0 Active 028879839 Problem Chronic prescription opiate use Z79.899 Active 736755518 Problem Fatty liver K76.0 Active 04915895 7 Problem Isolated proteinuria without specific morphologic lesion R80.0 Active 46625380 Problem Tobacco use Z72.0 Active 56679369 0 ALLERGIES Substance Reaction Event Type Date Status N.K.D.A. Unknown Non Drug Allergy Jul, Unknown SOCIAL HISTORY No smoking Hx information available PLAN OF CARE Activity Details Follow Up 2 Weeks Reason:Neck pain/num bness VITAL SIGNS Height 62 in 2016-08-28 Weight 279.0 lbs 2016-08-28 Temperature 98.0 degrees Fahrenheit 2016-08-28 Heart Rate 80 bpm 2016-08-28 Respiratory Rate 22 2016-08-28 BMI 51.02 kg/m2 2016-08-28 Blood pressure systolic 126 mmHg 2016-08-28 Blood pressure diastolic 80 mmHg 2016-08-28 MEDICATIONS Medication Instructions Dosage Frequency Start Date End Date Duration S tatus Tizanidine HCl 2 MG Orally every 8 hrs 1 tablet as needed 8h 30 Active Omeprazole 20 mg Orally Once a day 2 capsules 24h Jun, 30 day(s) Active Atorvastatin Calcium 40 mg Orally Once a day 1 tablet 24h 30 Active Aspirin 325 MG Orally Once a day 1 tablet 24h 18 Dec, 2015 Active Hydrocodone-Acetaminophen 5-325 MG Orally 2 times a day as n eeded for pain take 1 tablet Sep, 28 days Active BuPROPion HCl (XL) 300 MG Orally Once a day 1 tablet in the morning 24h Mar, Active Duloxetine HCl 60 MG Orally Once a day 1 capsule 24h Dec, Active Atenolol 50 mg Orally Once a day 1 tablet 24h 30 day s Active Mirtazapine 30 MG TAKE ONE TABLET BY M OUTH BEFORE BEDTIME IN THE EVENING ONCE DAILY 30 Active Furosemide 20 mg Orally Once a day 1 tablet 24h Jun, 30 day(s) Active Potassium Chloride ER 20 MEQ Orally Once a day 1 tablet with food 2 4h Jun, Sep, 30 day(s) Active Diazepam 2.5 MG Orally Once a day 1 tablet as needed at bedtime for anxiety 24h Sep, 28 days Active RESULTS Name Result Date Reference Range Xray : Spine, Thoracic 2 views (IN HOUSE) 08-28 Xray : Spine, Cervical (IN HOUSE) 2016-08-28 PROCEDURES Procedure Date Ordered Related Diagnosis Body Site X-RAY EXAM OF NECK SPINE Aug 28, 2016 X-RAY EXAM OF THORACIC SPINE Aug 28, 2016 Office Visit, Est Pt., Level 3 Aug 28, 2016 IMMUNIZATIONS No Known Immunizations
--- OUTSIDE RECORDS SUMMARY | 2020-02-08 07:23 | XMS REPORT ---
Author Author Emilee AGOSTO Organization [facility] Address [address] [place] [address] Care Team Providers Care Jewelry Sales Representative Name Role Phone AGOSTOMARGA MeadeELE Unavailable PROBLEMS Type Condition ICD9-CM Code YJA88-GI Code Onset Dates Condition S tatus SNOMED Code Problem Mixed hyperlipidemia E78.2 Active 486979948 Problem Fatty liver K76.0 Active 17278227 7 Problem Obstructive sleep apnea G47.33 Active 14554933 Problem Allergic rhinitis, unspecified J30.9 Active 83377641 Problem Essential hypertension I10 Active 36888615 Problem History of renal cell cancer Z85.528 A ctive 977174987 Problem Prediabetes R73.09 Active 2793663 Problem Diastolic dysfunction I51.9 Active 0457886 Problem Body mass index (bmi) 50-59.9 , adult Z68.43 Active 276514160 Problem Paresthesia of both hands R20.2 Acti ve 607425898 Problem Habitual self-excoriation F42.4 Acti ve 543177460 Problem BMI 50.0-59.9, adult Z68.43 Active 042438208 Problem Restrictive lung disease J98.4 Activ e 28346731 Problem Splenic artery aneurysm I72.8 Active 67465628 Problem Liver mass R16.0 Active 376089057 Problem Generalized anxiety disorder F41.1 A ctive 74301930 Problem Major depressive disorder, recurrent episode, mild degree F33.0 Active 858138958 Problem Excoriation, neurotic L98.1 Active 07991343 Problem History of tobacco use Z87.891 Active 7335140303497 Problem Primary osteoarthritis involving multiple joints M 15.0 Active 082034231 Problem Isolated proteinuria without specific morphologic lesion R80.0 Active 18789188 Problem 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 Active 164095277 Problem Pulmonary emphysema, unspecified emphysema type J4 3.9 Active 83568140 Problem Chronic prescription opiate use Z79.899 Active 750369511 Problem Tobacco use Z72.0 Active 99079908 0 Problem Bilateral carpal tunnel syndrome G56.03 Active 06814410 Problem Chronic prescription benzodiazepine use Z79.899 Active 678012682 ALLERGIES No Information ENCOUNTERS Encounter Location Date Diagnosis [facility] [address] [facility] [id number] [address] [place] [phone] Feb, [facility] [address] [facility] [id number] [address] [place] [phone] Jan, [facility] [address] [place] [id number] [address] [place] [phone] Dec, [facility] [address] [address] Dec, [facility] [address] [place] [id number] [place] [address] Dec, [facility] [address] [place] [id number] [address] [place] [address] November, [facility] [address] [place] [id number] [address] [place] [phone] November, [facility] [address] [address] November, Pulmonary emphysema, unspeci fied emphysema type J43.9 ; Restrictive lung disease J98.4 ; BMI 50.0-59.9, adult Z68.43 ; History of renal cell cancer Z85.528 ; Essential hypertension I10 ; Mixed hyperlipidemia E78.2 and Fatty liver K76.0 [facility] [address] [place] [id number] [address] [place] [address] November, Generalized anxiety disorder F41.1 [facility] [address] [address] November, Generalized anxiety disorder F41.1 and Major depressive disorder, recurrent episode, mild degree F33.0 [facility] [address] [place] [id number] [address] [place] [address] November, Generalized anxiety disorder F41.1 ; Major depressive disorder, recurrent episode, mild degree F33.0 and Habitual self-excoriation F42.4 [facility] [address] [address] November, [facility] [address] [place] [id number] [place] [address] Oct, Generalized anxiety disorder F41.1 [facility] [address] [address] Oct, [facility] [address] [place] [id number] [place] [address] Oct, Influenza-like illness R69 [facility] [address] [address] Sep, Influenza-like illness R69 [facility] [address] [address] Sep, Generalized anxiety disorder F41.1 [facility] [address] [place] [id number] [address] [place] [phone] Sep, [facility] [address] [address] Aug, [facility] [address] [place] [id number] [address] [place] [address] Aug, [facility] [address] [place] [id number] [address] [place] [address] Aug, Generalized anxiety disorder F41.1 [facility] [address] [facility] [id number] [address] [place] [address] Aug, Influenza-like illness R69 a nd BMI 50.0-59.9, adult Z68.43 [facility] [address] [facility] [id number] [address] [place] [address] Jul, Fatty liver K76.0 ; Restrict jean-paul lung disease J98.4 ; Diastolic dysfunction I51.9 ; Body mass index (bmi) 50-59.9 , adult Z68.43 and Chronic prescription opiate use Z79.899 [facility] [address] [facility] [id number] [address] [place] [address] Jul, Generalized anxiety disorder F41.1 [facility] [address] [facility] [id number] [address] [place] [address] Jul, Generalized anxiety disorder F41.1 [facility] [address] [facility] [id number] [address] [place] [address] Jul, Primary osteoarthritis invol ving multiple joints M15.0 [facility] [address] [facility] [id number] [address] [place] [address] Jun, Generalized anxiety disorder F41.1 [place] [address] [place] [id number] [address] [place] [address] Jun, [facility] [address] [place] [id number] [address] [place] [address] Jun, Mixed hyperlipidemia E78.2 [facility] [address] [facility] [id number] [address] [place] [address] Jun, Generalized anxiety disorder F41.1 [facility] [address] [place] [id number] [address] [place] [phone] Jun, Generalized anxiety disorder F41.1 ; Major depressive disorder, recurrent episode, mild degree F33.0 and Habitual self-excoriation F42.4 [facility] [address] [facility] [id number] [address] [place] [phone] May, [facility] [address] [facility] [id number] [address] [place] [phone] May, Generalized anxiety disorder F41.1 [facility] [address] [place] [id number] [address] [place] [phone] May, Generalized anxiety disorder F41.1 [facility] [address] [place] [id number] [address] [place] [address] May, Primary osteoarthritis invol ving multiple joints M15.0 [facility] [address] [id number] [address] [place] [address] Apr, Major depressive disorder, r ecurrent episode, mild degree F33.0 ; Generalized anxiety disorder F41.1 and Excoriation, neurotic L98.1 [facility] [address] [id number] [address] [place] [address] Apr, Primary osteoarthritis invol ving multiple joints M15.0 [facility] [address] [id number] [address] [place] [address] Apr, Essential hypertension I10 a nd Mixed hyperlipidemia E78.2 [facility] [address] [id number] [address] [place] [address] Apr, Generalized anxiety disorder F41.1 ; Major depressive disorder, recurrent episode, mild degree F33.0 and Habitual self-excoriation F42.4 [facility] [address] [id number] [address] [place] [address] Mar, Generalized anxiety disorder F41.1 ; Major depressive disorder, recurrent episode, mild degree F33.0 and Habitual self-excoriation F42.4 [facility] [address] [id number] [address] [place] [phone] Mar, Skin lesion L98.9 [facility] [address] [id number] [address] [place] [address] Mar, Primary osteoarthritis invol ving multiple joints M15.0 [facility] [address] [id number] [address] [place] [address] Mar, [facility] [address] [id number] [address] [place] [phone] Mar, [facility] [address] [id number] [address] [place] [address] Feb, Major depressive disorder, r ecurrent episode, mild degree F33.0 ; Generalized anxiety disorder F41.1 and Excoriation, neurotic L98.1 [facility] [address] [facility] [id number] [address] [place] [address] Feb, Generalized anxiety disorder F41.1 [facility] [address] [facility] [id number] [address] [place] [id number] Feb, Primary osteoarthritis invol ving multiple joints M15.0 [facility] [address] [facility] [id number] [address] [place] [address] Jan, [facility] [address] [facility] [id number] [address] [place] [address] Jan, Essential hypertension I10 ; Splenic artery aneurysm I72.8 ; Liver mass R16.0 ; Restrictive lung disease J98.4 ; Primary osteoarthritis involving multiple joints M15.0 ; Mixed hyperlipidemia E78.2 ; Bilateral carpal tunnel syndrome G56.03 ; Body mass index (bmi) 50-59.9 , adult Z68.43 and History of tobacco use Z87.891 [place] [address] [place] [id number] [address] [place] [address] Jan, Major depressive disorder, r ecurrent episode, mild degree F33.0 and Generalized anxiety disorder F41.1 [place] [address] [facility] [id number] [address] [place] [address] Jan, [place] [address] [facility] [id number] [address] [place] [address] Jan, Generalized anxiety disorder F41.1 and Major depressive disorder, recurrent episode, mild degree F33.0 [facility] [address] [facility] [id number] [address] [place] [address] Dec, Primary osteoarthritis invol ving multiple joints M15.0 [facility] [address] [facility] [id number] [address] [place] [address] Dec, Generalized anxiety disorder F41.1 [facility] [address] [facility] [id number] [address] [place] [phone] Dec, [facility] [address] [place] [id number] [address] [place] [address] 15 Dec, 2016 Major depressive disorder, r ecurrent episode, mild degree F33.0 and Generalized anxiety disorder F41.1 [place] [address] [place] [id number] [address] [place] [address] Dec, Generalized anxiety disorder F41.1 and Major depressive disorder, recurrent episode, mild degree F33.0 [place] [address] [place] [id number] [address] [place] [address] November, Mild major depression F32.0 and Primary osteoarthritis involving multiple joints M15.0 [place] [address] [facility] [id number] [address] [place] [address] November, Major depressive disorder, r ecurrent episode, mild degree F33.0 and Generalized anxiety disorder F41.1 [place] [address] [place] [id number] [address] [place] [address] November, Primary osteoarthritis invol ving multiple joints M15.0 ; Essential hypertension I10 ; Prediabetes R73.09 ; Mixed hyperlipidemia E78.2 ; Chronic prescription benzodiazepine use Z79.899 ; Chronic prescription opiate use Z79.899 ; Tobacco use Z72.0 ; Bilateral carpal tunnel syndrome G56.03 and Body mass index (bmi) 50-59.9 , adult Z68.43 [place] [address] [place] [id number] [address] [place] [address] November, Primary osteoarthritis invol ving multiple joints M15.0 and Mild major depression F32.0 [place] [address] [place] [id number] [address] [place] [address] Oct, [place] [address] [place] [id number] [address] [place] [phone] Oct, Primary osteoarthritis invol ving multiple joints M15.0 ; Essential hypertension I10 ; Prediabetes R73.09 ; Chronic prescription benzodiazepine use Z79.899 ; Chronic prescription opiate use Z79.899 ; Tobacco use Z72.0 ; Mixed hyperlipidemia E78.2 ; Bilateral carpal tunnel syndrome G56.03 ; Body mass index (bmi) 50-59.9 , adult Z68.43 and Encounter for immunization Z23 [facility] [address] [facility] [id number] [address] [place] [phone] Oct, Major depressive disorder, r ecurrent episode, mild degree F33.0 and Generalized anxiety disorder F41.1 [facility] [address] [id number] [address] [place] [id number] Oct, [facility] [address] [facility] [id number] [address] [place] [address] Oct, [facility] [address] [id number] [address] [place] [phone] Sep, Mild major depression F32.0 [facility] [address] [id number] [address] [place] [phone] Sep, [facility] [address] [facility] [id number] [address] [place] [address] Sep, Mild major depression F32.0 and Generalized anxiety disorder F41.1 [facility] [address] [id number] [address] [place] [address] Sep, Paresthesia of both hands R2 0.2 and Cervical radiculopathy M54.12 [facility] [address] [id number] [address] [place] [id number] Sep, [facility] [address] [facility] [id number] [address] [place] [address] Sep, [facility] [address] [id number] [address] [place] [address] Aug, Paresthesia of both hands R2 0.2 and Neck pain M54.2 [facility] [address] [facility] [id number] [address] [place] [phone] Aug, [facility] [address] [facility] [id number] [address] [place] [address] Jul, Neck pain M54.2 and Paresthe eddie of both hands R20.2 [place] [address] [facility] [id number] [address] [place] [address] Jul, Proteinuria, unspecified typ e R80.9 [place] [address] [facility] [id number] [address] [place] [address] Jul, Proteinuria, unspecified typ e R80.9 [place] [address] [place] [id number] [place] [address] Jul, [place] [address] [place] [id number] [place] [address] Jul, Other specified transient ce rebral ischemias G45.8 [place] [address] [facility] [id number] [address] [place] [address] Jun, Diastolic dysfunction I51.9 [place] [address] [address] Jun, Diastolic dysfunction I51.9 [place] [address] [place] [id number] [address] [place] [address] Jun, Major depressive disorder, s david episode, unspecified F32.9 and Anxiety disorder, unspecified F41.9 [place] [address] [place] [id number] [address] [place] [address] Jun, [place] [address] [place] [id number] [address] [place] [address] Jun, [place] [address] [place] [id number] [address] [place] [address] May, Moderate major depression F3 2.1 and Generalized anxiety disorder F41.1 [place] [address] [place] [id number] [address] [place] [address] May, Major depressive disorder, s david episode, unspecified F32.9 and Anxiety disorder, unspecified F41.9 [place] [address] [place] [id number] [address] [place] [address] May, [facility] [address] [facility] [id number] [address] [place] [address] 14 May, 2016 Liver enzyme elevation R74.8 [facility] [address] [facility] [id number] [address] [place] [address] 14 May, 2016 Liver enzyme elevation R74.8 [facility] [address] [place] [id number] [address] [place] [address] 10 May, 2016 Shortness of breath on exert ion R06.02 ; Essential hypertension I10 ; Mixed hyperlipidemia E78.2 and Tobacco use Z72.0 [facility] [address] [facility] [id number] [address] [place] [address] 03 May, 2016 [facility] [address] [place] [id number] [place] [address] May, [facility] [address] [address] Apr, Anxiety F41.9 and Depression F32.9 [facility] [address] [place] [id number] [address] [place] [address] Apr, [facility] [address] [place] [id number] [address] [place] [address] Apr, [facility] [address] [place] [id number] [address] [place] [address] Mar, Depression F32.9 and Anxiety F41.9 [facility] [id number] [place] [address] 08 Mar, 2016 Anxiety F41.9 and Depression F32.9 [facility] [address] [place] [address] 06 Mar, 2016 Well woman exam (no gynecolo gical exam) Z00.00 [facility] [address] [facility] [id number] [address] [place] [address] 02 Mar, 2016 [facility] [address] [place] [id number] [address] [place] [address] Mar, [facility] [address] [id number] [address] [place] [id number] Feb, Dental caries K02.9 [facility] [address] [id number] [address] [place] [address] Feb, [facility] [address] [id number] [address] [place] [phone] Feb, Anxiety F41.9 and Depression F32.9 [facility] [address] [id number] [address] [place] [id number] Feb, Dental examination Z01.20 [facility] [address] [id number] [address] [place] [address] Feb, [facility] [address] [id number] [address] [place] [address] Feb, [facility] [address] [id number] [address] [place] [address] Feb, Anxiety F41.9 and Depression F32.9 [facility] [address] [id number] [address] [place] [address] Jan, Severe episode of recurrent major depressive disorder, without psychotic features F33.2 and Anxiety disorder, unspecified F41.9 [facility] [address] [id number] [address] [place] [phone] Jan, [facility] [address] [id number] [address] [place] [address] Dec, [facility] [address] [id number] [address] [place] [address] Dec, Anxiety F41.9 and Depression F32.9 [facility] [address] [facility] [id number] [address] [place] [phone] Dec, Other specified transient ce rebral ischemias G45.8 and Nocturnal hypoxia G47.34 [facility] [address] [id number] [address] [place] [address] 18 Dec, 2015 [facility] [address] [facility] [id number] [address] [place] [phone] 17 Dec, 2015 Other specified transient ce rebral ischemias G45.8 [facility] [address] [facility] [id number] [address] [place] [address] 16 Dec, 2015 Severe episode of recurrent major depressive disorder, without psychotic features F33.2 and Anxiety disorder, unspecified F41.9 [place] [address] [facility] [id number] [address] [place] [address] 13 Dec, 2015 [place] [address] [facility] [id number] [address] [place] [id number] 13 Dec, 2015 Anxiety F41.9 and Depression F32.9 [place] [address] [place] [id number] [address] [place] [address] 07 Dec, 2015 Anxiety F41.9 and Depression F32.9 [place] [address] [place] [id number] [address] [place] [address] 03 Dec, 2015 [place] [address] [facility] [id number] [address] [place] [address] November, Anxiety F41.9 and Depression F32.9 [place] [address] [facility] [id number] [address] [place] [address] November, Severe episode of recurrent major depressive disorder, without psychotic features F33.2 [place] [address] [facility] [id number] [address] [place] [phone] November, Mixed hyperlipidemia E78.2 [place] [address] [facility] [id number] [address] [place] [id number] November, Anxiety F41.9 and Depression F32.9 [place] [address] [address] [facility] [id number] [address] [place] [id number] 05 Nov, 2015 Prediabetes R73.09 ; Essenti al hypertension I10 ; Anxiety F41.9 ; Depression F32.9 ; Gastroesophageal reflux disease, esophagitis presence not specified K21.9 ; Primary osteoarthritis involving multiple joints M15.0 ; History of renal cell cancer Z85.528 ; Postnasal drip R09.82 ; Allergic rhinitis, unspecified J30.9 and Tobacco use Z72.0 [facility] [address] [id number] 11 Oct, 2015 Anxiety F41.9 and Depression F32.9 [place] [address] [id number] 07 Oct, 2015 [facility] [address] [address] Oct, [place] [address] [address] 14 Sep, 2015 Splenic artery aneurysm I72. 8 [place] [address] [address] 10 Sep, 2015 Depression F32.9 ; Anxiety F 41.9 ; Chronic prescription benzodiazepine use Z79.899 and Splenic artery aneurysm I72.8 [place] [address] [id number] 10 Sep, 2015 Depression F32.9 and Anxiety F41.9 [place] [address] [id number] Sep, [place] [address] [id number] 18 Aug, 2015 Dehydration E86.0 ; Diarrhea R19.7 ; Nausea R11.0 and Generalized abdominal pain R10.84 [place] [address] [id number] Aug, [place] [address] [address] Jul, Depression F32.9 [place] [address] [id number] Jul, [place] [address] [address] [facility] [id number] [address] [place] [phone] Jul, Anxiety F41.9 and Depression F32.9 [facility] [address] [facility] [id number] [address] [place] [phone] Jul, [facility] [address] [facility] [id number] [address] [place] [id number] Jun, Epigastric pain R10.13 [facility] [address] [id number] [address] [place] [phone] Jun, [facility] [address] [facility] [id number] [address] [place] [id number] Jun, [facility] [address] [facility] [id number] [address] [place] [id number] May, [facility] [address] [facility] [id number] [address] [place] [id number] May, [facility] [address] [facility] [id number] [address] [place] [phone] Apr, [facility] [address] [facility] [id number] [address] [place] [phone] Mar, Anxiety state, unspecified 3 00.00 ; Depression 311 ; Prediabetes 790.29 ; Generalized osteoarthrosis, involving multiple sites 715.09 and Hypertension 401.9 [facility] [address] [facility] [id number] [address] [place] [phone] Mar, [facility] [address] [facility] [id number] [address] [place] [phone] Feb, [facility] [address] [facility] [id number] [address] [place] [phone] Jan, [facility] [address] [facility] [id number] [address] [place] [phone] Jan, [facility] [address] [facility] [id number] [address] [place] [phone] Jan, Generalized osteoarthrosis, involving multiple sites 715.09 [facility] [address] [id number] [address] [place] [phone] Jan, Hx of renal cell cancer V10. 52 [facility] [address] [id number] [address] [place] [phone] 30 Dec, 2014 Generalized osteoarthrosis, involving multiple sites 715.09 and Hx of renal cell cancer V10.52 [facility] [address] [id number] [address] [place] [phone] Dec, [facility] [address] [id number] [address] [place] [phone] Dec, [facility] [address] [id number] [address] [place] [phone] November, [facility] [address] [id number] [address] [place] [phone] Oct, [facility] [address] [id number] [address] [place] [phone] Oct, [facility] [address] [id number] [address] [place] [phone] Sep, [facility] [address] [id number] [address] [place] [phone] Sep, [facility] [address] [id number] [address] [place] [phone] Sep, [facility] [address] [id number] [address] [place] [phone] Sep, [facility] [address] [id number] [address] [place] [phone] Aug, [facility] [address] [id number] [address] [place] [phone] Aug, IMMUNIZATIONS No Known Immunizations SOCIAL HISTORY Never Assessed REASON FOR VISIT Controlled Med Refill PLAN OF CARE VITAL SIGNS MEDICATIONS Medication Instructions Dosage Frequency Start Date End Date Duration S tatus Hydrocodone-Acetaminophen 5-325 MG Orally 2 times a day as n eeded for pain take 1 tablet Jul, 28 days Active RESULTS No Results PROCEDURES [...]
--- OUTSIDE RECORDS SUMMARY | 2020-02-08 07:24 | XMS REPORT ---
Author Author Emilee MAY Organization [facility] Address [address] [place] [address] Care Team Providers Care Burner Technician Name Role Phone LALOJEZALBANIA Unavailable PROBLEMS Type Condition ICD9-CM Code LOP85-LT Code Onset Dates Condition S tatus SNOMED Code Problem Allergic rhinitis, unspecified J30.9 Active 98773285 Problem Diastolic dysfunction I51.9 Active 4477282 Problem History of renal cell cancer Z85.528 A ctive 753660469 Problem Excoriation, neurotic L98.1 Active 90845196 Problem Prediabetes R73.09 Active 6065955 Problem History of tobacco use Z87.891 Active 9705653172903 Problem Essential hypertension I10 Active 28630418 Problem Obstructive sleep apnea G47.33 Active 30909749 Problem Body mass index (bmi) 50-59.9 , adult Z68.43 Active 991592203 Problem Paresthesia of both hands R20.2 Acti ve 666617535 Problem Generalized anxiety disorder F41.1 A ctive 68444738 Problem Major depressive disorder, recurrent episode, mild degree F33.0 Active 256884128 Problem Restrictive lung disease J98.4 Activ e 73132808 Problem 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 Active 117436354 Problem Liver mass R16.0 Active 690556106 Problem Splenic artery aneurysm I72.8 Active 30181088 Problem Bilateral carpal tunnel syndrome G56.03 Active 88679076 Problem Chronic prescription benzodiazepine use Z79.899 Active 662419112 Problem Mixed hyperlipidemia E78.2 Active 712701388 Problem Primary osteoarthritis involving multiple joints M 15.0 Active 536780335 Problem Chronic prescription opiate use Z79.899 Active 949306479 Problem Fatty liver K76.0 Active 66082250 7 Problem Isolated proteinuria without specific morphologic lesion R80.0 Active 35040960 Problem Tobacco use Z72.0 Active 95069907 0 ALLERGIES No Known Allergies SOCIAL HISTORY Never Assessed PLAN OF CARE Activity Details Follow Up 4 Weeks Reason: VITAL SIGNS Height 62 in 2016-09-20 Weight 281.3 lbs 2016-09-20 Temperature 98.7 degrees Fahrenheit 2016-09-20 Heart Rate 80 bpm 2016-09-20 Respiratory Rate 22 2016-09-20 BMI 51.44 kg/m2 2016-09-20 Blood pressure systolic 133 mmHg 2016-09-20 Blood pressure diastolic 84 mmHg 2016-09-20 MEDICATIONS Medication Instructions Dosage Frequency Start Date End Date Duration S fabrice Duloxetine HCl 60 MG Orally Once a day 1 capsule 24h 16 Dec, 2015 Active Voltaren 1 % Transdermal 4 times a day as needed 2 grams 23 Aug, 2016 Active BuPROPion HCl (XL) 300 MG Orally Once a day 1 tablet in the morning 24h Mar, Active Aspirin 325 MG Orally Once a day 1 tablet 24h 18 Dec, 2015 Active Omeprazole 20 mg Orally Once a day 2 capsules 24h Jun, 30 day(s) Active Duloxetine HCl 30 MG Orally daily 1 capsule at HS X 7 days th en 2 caps at HS 24h 60 Active Diazepam 2.5 MG Orally Once a day 1 tablet as needed at bedtime for anxiety 24h Sep, 28 days Active Atenolol 50 mg Orally Once a day 1 tablet 24h 30 day s Active Furosemide 20 mg Orally Once a day 1 tablet 24h Jun, 30 day(s) Active Potassium Chloride ER 20 MEQ Orally Once a day 1 tablet with food 2 4h Jun, Sep, 30 day(s) Active Tizanidine HCl 2 MG Orally every 8 hrs 1 tablet as needed 8h 30 Active Atorvastatin Calcium 40 mg Orally Once a day 1 tablet 24h 30 Active Mirtazapine 30 MG TAKE ONE TABLET BY M OUTH BEFORE BEDTIME IN THE EVENING ONCE DAILY 30 Active Hydrocodone-Acetaminophen 5-325 MG Orally 2 times a day as n eeded for pain take 1 tablet Sep, 28 days Active RESULTS No Results PROCEDURES Procedure Date Ordered Result Body Site LAB NOT BILLED BY [facility] Sep 20, 2016 IMMUNIZATIONS No Known Immunizations MEDICAL (GENERAL) [...]
--- OUTSIDE RECORDS SUMMARY | 2020-02-08 07:24 | XMS REPORT ---
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 Role Phone LALOJEZALBANIA Unavailable PROBLEMS Type Condition ICD9-CM Code DTL02-NX Code Onset Dates Condition S tatus SNOMED Code Problem Allergic rhinitis, unspecified J30.9 Active 51244501 Problem Diastolic dysfunction I51.9 Active 1756431 Problem History of renal cell cancer Z85.528 A ctive 625176674 Problem Excoriation, neurotic L98.1 Active 46361991 Problem Prediabetes R73.09 Active 1636840 Problem History of tobacco use Z87.891 Active 1136198990081 Problem Essential hypertension I10 Active 26758039 Problem Obstructive sleep apnea G47.33 Active 01261854 Problem Body mass index (bmi) 50-59.9 , adult Z68.43 Active 579205039 Problem Paresthesia of both hands R20.2 Acti ve 560867990 Problem Generalized anxiety disorder F41.1 A ctive 43339036 Problem Major depressive disorder, recurrent episode, mild degree F33.0 Active 759409360 Problem Restrictive lung disease J98.4 Activ e 98691924 Problem 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 Active 105428341 Problem Liver mass R16.0 Active 585794715 Problem Splenic artery aneurysm I72.8 Active 18741092 Problem Bilateral carpal tunnel syndrome G56.03 Active 95381735 Problem Chronic prescription benzodiazepine use Z79.899 Active 848695561 Problem Mixed hyperlipidemia E78.2 Active 666118139 Problem Primary osteoarthritis involving multiple joints M 15.0 Active 933816228 Problem Chronic prescription opiate use Z79.899 Active 490961124 Problem Fatty liver K76.0 Active 48306873 7 Problem Isolated proteinuria without specific morphologic lesion R80.0 Active 74801323 Problem Tobacco use Z72.0 Active 14349271 0 ALLERGIES No Information SOCIAL HISTORY Never Assessed PLAN OF CARE VITAL SIGNS MEDICATIONS Medication Instructions Dosage Frequency Start Date End Date Duration S tatus Diazepam 2.5 MG Orally Once a day 1 tablet as needed at bedtime for anxiety 24h Sep, 28 days Active Hydrocodone-Acetaminophen 5-325 MG Orally 2 [...]
--- OUTSIDE RECORDS SUMMARY | 2020-02-08 07:24 | XMS REPORT ---
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 Role Phone [email or web address] Unavailable PROBLEMS Type Condition ICD9-CM Code YST00-IB Code Onset Dates Condition S tatus SNOMED Code Problem Mixed hyperlipidemia E78.2 Active 471214057 Problem Fatty liver K76.0 Active 87631373 7 Problem Obstructive sleep apnea G47.33 Active 82224623 Problem Allergic rhinitis, unspecified J30.9 Active 69395923 Problem Essential hypertension I10 Active 68577554 Problem History of renal cell cancer Z85.528 A ctive 694096809 Problem Prediabetes R73.09 Active 7852132 Problem Diastolic dysfunction I51.9 Active 9541694 Problem Body mass index (bmi) 50-59.9 , adult Z68.43 Active 203085878 Problem Paresthesia of both hands R20.2 Acti ve 766127939 Problem Habitual self-excoriation F42.4 Acti ve 240422588 Problem BMI 50.0-59.9, adult Z68.43 Active 431789271 Problem Restrictive lung disease J98.4 Activ e 67724424 Problem Splenic artery aneurysm I72.8 Active 86482171 Problem Liver mass R16.0 Active 754899473 Problem Generalized anxiety disorder F41.1 A ctive 39709658 Problem Major depressive disorder, recurrent episode, mild degree F33.0 Active 451232580 Problem Excoriation, neurotic L98.1 Active 78552194 Problem History of tobacco use Z87.891 Active 9214425480734 Problem Primary osteoarthritis involving multiple joints M 15.0 Active 171340693 Problem Isolated proteinuria without specific morphologic lesion R80.0 Active 63738255 Problem 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 Active 736590706 Problem Pulmonary emphysema, unspecified emphysema type J4 3.9 Active 24382565 Problem Chronic prescription opiate use Z79.899 Active 636236643 Problem Tobacco use Z72.0 Active 27042804 0 Problem Bilateral carpal tunnel syndrome G56.03 Active 49355998 Problem Chronic prescription benzodiazepine use Z79.899 Active 414455720 ALLERGIES No Information ENCOUNTERS Encounter Location Date Diagnosis [facility] [address] [id number] [address] [place] [address] Feb, [facility] [address] [address] 14 Dec, 2017 [facility] [address] [address] November, [facility] [address] [address] November, Pulmonary emphysema, unspeci fied emphysema type J43.9 ; Restrictive lung disease J98.4 ; BMI 50.0-59.9, adult Z68.43 ; History of renal cell cancer Z85.528 ; Essential hypertension I10 ; Mixed hyperlipidemia E78.2 and Fatty liver K76.0 [facility] [id number] [place] [address] November, Generalized anxiety disorder F41.1 [place] [address] [address] November, Generalized anxiety disorder F41.1 and Major depressive disorder, recurrent episode, mild degree F33.0 [facility] [id number] [place] [address] November, Generalized anxiety disorder F41.1 ; Major depressive disorder, recurrent episode, mild degree F33.0 and Habitual self-excoriation F42.4 [place] [id number] [place] [address] November, [facility] [id number] [place] [address] Oct, Generalized anxiety disorder F41.1 [facility] [id number] [place] [address] Oct, [facility] [address] [facility] [id number] [address] [place] [address] Oct, Influenza-like illness R69 [facility] [address] [facility] [id number] [address] [place] [address] Sep, Influenza-like illness R69 [facility] [address] [facility] [id number] [address] [place] [address] Sep, Generalized anxiety disorder F41.1 [facility] [address] [facility] [id number] [address] [place] [address] Sep, [facility] [id number] [place] [phone] Aug, [facility] [address] [id number] [address] [place] [address] Aug, [facility] [address] [address] Aug, Generalized anxiety disorder F41.1 [facility] [address] [facility] [id number] [address] [place] [address] Aug, Influenza-like illness R69 a nd BMI 50.0-59.9, adult Z68.43 [facility] [address] [place] [address] Jul, Fatty liver K76.0 ; Restrict jean-paul lung disease J98.4 ; Diastolic dysfunction I51.9 ; Body mass index (bmi) 50-59.9 , adult Z68.43 and Chronic prescription opiate use Z79.899 [facility] [address] [id number] [address] [place] [address] Jul, Generalized anxiety disorder F41.1 [facility] [address] [id number] [address] [place] [address] Jul, Generalized anxiety disorder F41.1 [facility] [id number] [place] [address] Jul, Primary osteoarthritis invol ving multiple joints M15.0 [facility] [address] [id number] [address] [place] [address] Jun, Generalized anxiety disorder F41.1 [facility] [address] [id number] [address] [place] [id number] Jun, [facility] [address] [id number] [address] [place] [address] Jun, Mixed hyperlipidemia E78.2 [facility] [address] [id number] [address] [place] [address] Jun, Generalized anxiety disorder F41.1 [facility] [address] [id number] [address] [place] [address] Jun, Generalized anxiety disorder F41.1 ; Major depressive disorder, recurrent episode, mild degree F33.0 and Habitual self-excoriation F42.4 [facility] [address] [id number] [address] [place] [address] May, [facility] [address] [id number] [address] [place] [address] May, Generalized anxiety disorder F41.1 [facility] [address] [id number] [address] [place] [address] May, Generalized anxiety disorder F41.1 [facility] [address] [id number] [address] [place] [address] May, Primary osteoarthritis invol ving multiple joints M15.0 [facility] [address] [id number] [address] [place] [address] Apr, Major depressive disorder, r ecurrent episode, mild degree F33.0 ; Generalized anxiety disorder F41.1 and Excoriation, neurotic L98.1 [facility] [address] [id number] [address] [place] [address] Apr, Primary osteoarthritis invol ving multiple joints M15.0 [facility] [address] [id number] [address] [place] [address] 03 Apr, 2017 Essential hypertension I10 a nd Mixed hyperlipidemia E78.2 [facility] [address] [id number] [address] [place] [address] Apr, Generalized anxiety disorder F41.1 ; Major depressive disorder, recurrent episode, mild degree F33.0 and Habitual self-excoriation F42.4 [facility] [address] [id number] [address] [place] [address] 06 Mar, 2017 Generalized anxiety disorder F41.1 ; Major depressive disorder, recurrent episode, mild degree F33.0 and Habitual self-excoriation F42.4 [facility] [address] [facility] [id number] [address] [place] [address] 05 Mar, 2017 Skin lesion L98.9 [facility] [address] [facility] [id number] [address] [place] [address] Mar, Primary osteoarthritis invol ving multiple joints M15.0 [facility] [address] [facility] [id number] [address] [place] [address] Mar, [facility] [address] [facility] [id number] [address] [place] [address] Mar, [facility] [address] [facility] [id number] [address] [place] [address] Feb, Major depressive disorder, r ecurrent episode, mild degree F33.0 ; Generalized anxiety disorder F41.1 and Excoriation, neurotic L98.1 [facility] [address] [id number] [address] [place] [address] Feb, Generalized anxiety disorder F41.1 [facility] [address] [facility] [id number] [address] [place] [address] Feb, Primary osteoarthritis invol ving multiple joints M15.0 [facility] [address] [facility] [id number] [address] [place] [address] Jan, [facility] [address] [id number] [address] [place] [address] Jan, Essential hypertension I10 ; Splenic artery aneurysm I72.8 ; Liver mass R16.0 ; Restrictive lung disease J98.4 ; Primary osteoarthritis involving multiple joints M15.0 ; Mixed hyperlipidemia E78.2 ; Bilateral carpal tunnel syndrome G56.03 ; Body mass index (bmi) 50-59.9 , adult Z68.43 and History of tobacco use Z87.891 [place] [address] [id number] [address] [place] [address] Jan, Major depressive disorder, r ecurrent episode, mild degree F33.0 and Generalized anxiety disorder F41.1 [place] [id number] [place] [address] Jan, [place] [id number] [place] [address] Jan, Generalized anxiety disorder F41.1 and Major depressive disorder, recurrent episode, mild degree F33.0 [place] [address] [id number] [address] [place] [address] Dec, Primary osteoarthritis invol ving multiple joints M15.0 [place] [address] [id number] [address] [place] [address] Dec, Generalized anxiety disorder F41.1 [place] [address] [id number] [address] [place] [address] Dec, [place] [id number] [place] [address] Dec, Major depressive disorder, r ecurrent episode, mild degree F33.0 and Generalized anxiety disorder F41.1 [place] [address] [id number] [address] [place] [address] Dec, Generalized anxiety disorder F41.1 and Major depressive disorder, recurrent episode, mild degree F33.0 [place] [address] [id number] [address] [place] [address] November, Mild major depression F32.0 and Primary osteoarthritis involving multiple joints M15.0 [place] [id number] [facility] [id number] [address] [place] [address] November, Major depressive disorder, r ecurrent episode, mild degree F33.0 and Generalized anxiety disorder F41.1 [place] [id number] [address] [place] [address] November, Primary osteoarthritis invol ving multiple joints M15.0 ; Essential hypertension I10 ; Prediabetes R73.09 ; Mixed hyperlipidemia E78.2 ; Chronic prescription benzodiazepine use Z79.899 ; Chronic prescription opiate use Z79.899 ; Tobacco use Z72.0 ; Bilateral carpal tunnel syndrome G56.03 and Body mass index (bmi) 50-59.9 , adult Z68.43 [place] [address] [place] [address] November, Primary osteoarthritis invol ving multiple joints M15.0 and Mild major depression F32.0 [place] [address] [id number] [address] [place] [address] Oct, [place] [address] [id number] [place] [address] Oct, Primary osteoarthritis invol ving multiple joints M15.0 ; Essential hypertension I10 ; Prediabetes R73.09 ; Chronic prescription benzodiazepine use Z79.899 ; Chronic prescription opiate use Z79.899 ; Tobacco use Z72.0 ; Mixed hyperlipidemia E78.2 ; Bilateral carpal tunnel syndrome G56.03 ; Body mass index (bmi) 50-59.9 , adult Z68.43 and Encounter for immunization Z23 [place] [address] [id number] [address] [place] [address] Oct, Major depressive disorder, r ecurrent episode, mild degree F33.0 and Generalized anxiety disorder F41.1 [place] [address] [id number] [address] [place] [address] Oct, [place] [address] [place] [address] Oct, [facility] [address] [facility] [id number] [address] [place] [address] Sep, Mild major depression F32.0 [facility] [address] [facility] [id number] [address] [place] [address] Sep, [facility] [id number] [place] [address] Sep, Mild major depression F32.0 and Generalized anxiety disorder F41.1 [facility] [id number] [place] [address] Sep, Paresthesia of both hands R2 0.2 and Cervical radiculopathy M54.12 [facility] [address] [id number] [address] [place] [address] Sep, [facility] [id number] [place] [address] Sep, [facility] [address] [id number] [address] [place] [address] Aug, Paresthesia of both hands R2 0.2 and Neck pain M54.2 [facility] [address] [id number] [address] [place] [address] Aug, [facility] [id number] [place] [address] Jul, Neck pain M54.2 and Paresthe eddie of both hands R20.2 [facility] [address] [id number] [address] [place] [address] Jul, Proteinuria, unspecified typ e R80.9 [facility] [address] [id number] [address] [place] [address] Jul, Proteinuria, unspecified typ e R80.9 [facility] [address] [id number] [address] [place] [address] Jul, [facility] [address] [facility] [id number] [address] [place] [address] Jul, Other specified transient ce rebral ischemias G45.8 [facility] [address] [facility] [id number] [address] [place] [address] Jun, Diastolic dysfunction I51.9 [facility] [address] [facility] [id number] [address] [place] [address] Jun, Diastolic dysfunction I51.9 [facility] [address] [facility] [id number] [address] [place] [address] Jun, Major depressive disorder, s david episode, unspecified F32.9 and Anxiety disorder, unspecified F41.9 [facility] [address] [facility] [id number] [address] [place] [address] Jun, [place] [address] [facility] [id number] [address] [place] [address] Jun, [facility] [address] [facility] [id number] [address] [place] [address] May, Moderate major depression F3 2.1 and Generalized anxiety disorder F41.1 [place] [address] [facility] [id number] [address] [place] [address] 16 May, 2016 Major depressive disorder, s david episode, unspecified F32.9 and Anxiety disorder, unspecified F41.9 [place] [address] [facility] [id number] [address] [place] [address] 15 May, 2016 [facility] [address] [facility] [id number] [address] [place] [address] 14 May, 2016 Liver enzyme elevation R74.8 [facility] [address] [facility] [id number] [address] [place] [address] 14 May, 2016 Liver enzyme elevation R74.8 [place] [address] [facility] [id number] [address] [place] [address] 10 May, 2016 Shortness of breath on exert ion R06.02 ; Essential hypertension I10 ; Mixed hyperlipidemia E78.2 and Tobacco use Z72.0 [facility] [address] [id number] [address] [place] [address] May, [facility] [address] [id number] [address] [place] [address] May, [facility] [address] [id number] [address] [place] [address] Apr, Anxiety F41.9 and Depression F32.9 [facility] [address] [id number] [address] [place] [address] Apr, [facility] [address] [id number] [address] [place] [address] Apr, [facility] [address] [id number] [address] [place] [address] Mar, Depression F32.9 and Anxiety F41.9 [facility] [address] [id number] [address] [place] [address] 08 Mar, 2016 Anxiety F41.9 and Depression F32.9 [facility] [address] [id number] [address] [place] [address] Mar, Well woman exam (no gynecolo gical exam) Z00.00 [facility] [address] [id number] [address] [place] [address] Mar, [facility] [address] [id number] [address] [place] [address] Mar, [facility] [address] [id number] [address] [place] [id number] Feb, Dental caries K02.9 [facility] [address] [id number] [address] [place] [address] Feb, [facility] [address] [id number] [address] [place] [address] Feb, Anxiety F41.9 and Depression F32.9 [facility] [address] [id number] [address] [place] [id number] Feb, Dental examination Z01.20 [facility] [address] [id number] [address] [place] [address] Feb, [facility] [address] [id number] [address] [place] [address] Feb, [facility] [address] [id number] [address] [place] [address] Feb, Anxiety F41.9 and Depression F32.9 [facility] [address] [id number] [address] [place] [address] Jan, Severe episode of recurrent major depressive disorder, without psychotic features F33.2 and Anxiety disorder, unspecified F41.9 [facility] [address] [id number] [address] [place] [address] Jan, [facility] [address] [id number] [address] [place] [address] Dec, [facility] [address] [id number] [address] [place] [address] Dec, Anxiety F41.9 and Depression F32.9 [facility] [address] [id number] [address] [place] [address] Dec, Other specified transient ce rebral ischemias G45.8 and Nocturnal hypoxia G47.34 [facility] [address] [id number] [address] [place] [address] Dec, [facility] [address] [id number] [address] [place] [address] 17 Dec, 2015 Other specified transient ce rebral ischemias G45.8 [facility] [address] [facility] [id number] [address] [place] [address] 16 Dec, 2015 Severe episode of recurrent major depressive disorder, without psychotic features F33.2 and Anxiety disorder, unspecified F41.9 [facility] [address] [address] 13 Dec, 2015 [place] [address] [address] 13 Dec, 2015 Anxiety F41.9 and Depression F32.9 [place] [address] [address] 07 Dec, 2015 Anxiety F41.9 and Depression F32.9 [place] [address] [address] Dec, [place] [address] [address] November, Anxiety F41.9 and Depression F32.9 [place] [address] [address] November, Severe episode of recurrent major depressive disorder, without psychotic features F33.2 [place] [address] [address] November, Mixed hyperlipidemia E78.[address] [address] November, Anxiety F41.9 and Depression F32.9 [place] [address] [address] November, Prediabetes R73.09 ; Essenti al hypertension I10 ; Anxiety F41.9 ; Depression F32.9 ; Gastroesophageal reflux disease, esophagitis presence not specified K21.9 ; Primary osteoarthritis involving multiple joints M15.0 ; History of renal cell cancer Z85.528 ; Postnasal drip R09.82 ; Allergic rhinitis, unspecified J30.9 and Tobacco use Z72.0 [place] [address] [address] Oct, Anxiety F41.9 and Depression F32.9 [place] [address] [address] Oct, [facility] [address] [facility] [id number] [address] [place] [id number] Oct, [facility] [address] [address] 14 Sep, 2015 Splenic artery aneurysm I72. 8 [facility] [address] [address] 10 Sep, 2015 Depression F32.9 ; Anxiety F 41.9 ; Chronic prescription benzodiazepine use Z79.899 and Splenic artery aneurysm I72.8 [facility] [address] [place] [id number] [place] [id number] 10 Sep, 2015 Depression F32.9 and Anxiety F41.9 [facility] [address] [address] 02 Sep, 2015 [facility] [address] [address] 18 Aug, 2015 Dehydration E86.0 ; Diarrhea R19.7 ; Nausea R11.0 and Generalized abdominal pain R10.84 [facility] [address] [address] 03 Aug, 2015 [facility] [address] [address] Jul, Depression F32.9 [facility] [address] [address] Jul, [facility] [address] [place] [id number] [address] [place] [id number] Jul, Anxiety F41.9 and Depression F32.9 [facility] [address] [address] Jul, [facility] [address] [place] [id number] [address] [place] [id number] Jun, Epigastric pain R10.13 [facility] [address] [place] [address] Jun, [facility] [address] [id number] [address] [place] [id number] Jun, [facility] [address] [place] [facility] [id number] [address] [place] [id number] May, [facility] [address] [facility] [id number] [address] [place] [id number] May, [facility] [address] [facility] [id number] [address] [place] [id number] Apr, [facility] [address] [facility] [id number] [address] [place] [id number] Mar, Anxiety state, unspecified 3 00.00 ; Depression 311 ; Prediabetes 790.29 ; Generalized osteoarthrosis, involving multiple sites 715.09 and Hypertension 401.9 [facility] [address] [facility] [id number] [address] [place] [id number] Mar, [facility] [address] [facility] [id number] [address] [place] [id number] Feb, [facility] [address] [facility] [id number] [address] [place] [id number] Jan, [facility] [address] [facility] [id number] [address] [place] [phone] Jan, [facility] [address] [facility] [id number] [address] [place] [phone] Jan, Generalized osteoarthrosis, involving multiple sites 715.09 [facility] [address] [facility] [id number] [address] [place] [id number] 07 Jan, 2015 Hx of renal cell cancer V10. 52 [facility] [address] [facility] [id number] [address] [place] [id number] Dec, Generalized osteoarthrosis, involving multiple sites 715.09 and Hx of renal cell cancer V10.52 [facility] [address] [id number] [address] [place] [id number] Dec, [facility] [address] [id number] [address] [place] [id number] Dec, [facility] [address] [id number] [address] [place] [id number] November, [facility] [address] [id number] [address] [place] [phone] Oct, [facility] [address] [id number] [address] [place] [id number] Oct, [facility] [address] [id number] [address] [place] [phone] Sep, [facility] [address] [id number] [address] [place] [id number] Sep, [facility] [address] [id number] [address] [place] [phone] Sep, [facility] [address] [id number] [address] [place] [id number] Sep, [facility] [address] [id number] [address] [place] [id number] Aug, [facility] [address] [id number] [address] [place] [id number] Aug, IMMUNIZATIONS No Known Immunizations SOCIAL HISTORY [...]
--- OUTSIDE RECORDS SUMMARY | 2020-02-08 07:24 | XMS REPORT ---
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 Name Role Phone LALOSTEPHANI CONSTANTINOY Unavailable PROBLEMS Type Condition ICD9-CM Code MOB76-QL Code Onset Dates Condition S tatus SNOMED Code Problem Mixed hyperlipidemia E78.2 Active 796693478 Problem Chronic prescription opiate use Z79.899 Active 492106769 Problem Fatty liver K76.0 Active 73350171 7 Problem Tobacco use Z72.0 Active 48515598 0 Problem Obstructive sleep apnea G47.33 Active 02855041 Problem Allergic rhinitis, unspecified J30.9 Active 86298799 Problem Diastolic dysfunction I51.9 Active 8159101 Problem History of renal cell cancer Z85.528 A ctive 303075926 Problem Excoriation, neurotic L98.1 Active 91673119 Problem History of tobacco use Z87.891 Active 3875401425878 Problem Liver mass R16.0 Active 197887164 Problem Prediabetes R73.09 Active 7476886 Problem Essential hypertension I10 Active 62032205 Problem Body mass index (bmi) 50-59.9 , adult Z68.43 Active 606685471 Problem Paresthesia of both hands R20.2 Acti ve 536941174 Problem Generalized anxiety disorder F41.1 A ctive 14283395 Problem Major depressive disorder, recurrent episode, mild degree F33.0 Active 658969098 Problem 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 Active 296032351 Problem Pulmonary emphysema, unspecified emphysema type J4 3.9 Active 22509472 Problem Splenic artery aneurysm I72.8 Active 63922974 Problem Restrictive lung disease J98.4 Activ e 10043632 Problem Bilateral carpal tunnel syndrome G56.03 Active 23288313 Problem Chronic prescription benzodiazepine use Z79.899 Active 015485624 Problem Primary osteoarthritis involving multiple joints M 15.0 Active 714508150 Problem Isolated proteinuria without specific morphologic lesion R80.0 Active 49799763 ALLERGIES No Known Allergies ENCOUNTERS Encounter Location Date Diagnosis [facility] [id number] [place] [address] November, [facility] [id number] [place] [address] November, [facility] [address] [address] November, [facility] [address] [address] Oct, [facility] [address] [address] Sep, Influenza-like illness R69 [facility] [id number] [place] [address] Sep, Generalized anxiety disorder F41.1 [facility] [id number] [place] [address] Sep, [facility] [id number] [place] [address] Aug, [facility] [id number] [place] [address] Aug, [facility] [id number] [place] [address] Aug, Generalized anxiety disorder F41.1 [facility] [id number] [place] [address] 06 Aug, 2017 Influenza-like illness R69 a nd BMI 50.0-59.9, adult Z68.43 [facility] [id number] [place] [address] Jul, Fatty liver K76.0 ; Restrict jean-paul lung disease J98.4 ; Diastolic dysfunction I51.9 ; Body mass index (bmi) 50-59.9 , adult Z68.43 and Chronic prescription opiate use Z79.899 [facility] [address] [id number] [address] [place] [address] Jul, Generalized anxiety disorder F41.1 [facility] [address] [id number] [address] [place] [address] Jul, Generalized anxiety disorder F41.1 [facility] [address] [id number] [address] [place] [address] Jul, Primary osteoarthritis invol ving multiple joints M15.0 [facility] [address] [id number] [address] [place] [address] Jun, Generalized anxiety disorder F41.1 [facility] [address] [id number] [address] [place] [address] Jun, [facility] [address] [facility] [id number] [address] [place] [id number] Jun, Mixed hyperlipidemia E78.2 [facility] [address] [id number] [address] [place] [address] Jun, Generalized anxiety disorder F41.1 [facility] [address] [facility] [id number] [address] [place] [address] Jun, Generalized anxiety disorder F41.1 ; Major depressive disorder, recurrent episode, mild degree F33.0 and Habitual self-excoriation F42.4 [facility] [address] [id number] [address] [place] [address] May, [facility] [address] [id number] [address] [place] [address] May, Generalized anxiety disorder F41.1 [facility] [address] [facility] [id number] [address] [place] [address] May, Generalized anxiety disorder F41.1 [facility] [address] [id number] [address] [place] [id number] May, Primary osteoarthritis invol ving multiple joints M15.0 [facility] [address] [id number] [address] [place] [address] 09 Apr, 2017 Major depressive disorder, r ecurrent episode, mild degree F33.0 ; Generalized anxiety disorder F41.1 and Excoriation, neurotic L98.1 [facility] [address] [id number] [address] [place] [address] 04 Apr, 2017 Primary osteoarthritis invol ving multiple joints M15.0 [facility] [address] [id number] [address] [place] [address] Apr, Essential hypertension I10 a nd Mixed hyperlipidemia E78.2 [facility] [address] [id number] [address] [place] [address] Apr, Generalized anxiety disorder F41.1 ; Major depressive disorder, recurrent episode, mild degree F33.0 and Habitual self-excoriation F42.4 [facility] [address] [id number] [address] [place] [address] Mar, Generalized anxiety disorder F41.1 ; Major depressive disorder, recurrent episode, mild degree F33.0 and Habitual self-excoriation F42.4 [facility] [address] [id number] [address] [place] [address] Mar, Skin lesion L98.9 [facility] [address] [id number] [address] [place] [address] Mar, Primary osteoarthritis invol ving multiple joints M15.0 [facility] [address] [id number] [address] [place] [address] Mar, [facility] [address] [id number] [address] [place] [address] Mar, [facility] [address] [id number] [address] [place] [address] Feb, Major depressive disorder, r ecurrent episode, mild degree F33.0 ; Generalized anxiety disorder F41.1 and Excoriation, neurotic L98.1 [facility] [address] [id number] [address] [place] [address] Feb, Generalized anxiety disorder F41.1 [facility] [address] [id number] [address] [place] [address] Feb, Primary osteoarthritis invol ving multiple joints M15.0 [facility] [address] [id number] [address] [place] [address] Jan, [facility] [address] [facility] [id number] [address] [place] [address] Jan, Essential hypertension I10 ; Splenic artery aneurysm I72.8 ; Liver mass R16.0 ; Restrictive lung disease J98.4 ; Primary osteoarthritis involving multiple joints M15.0 ; Mixed hyperlipidemia E78.2 ; Bilateral carpal tunnel syndrome G56.03 ; Body mass index (bmi) 50-59.9 , adult Z68.43 and History of tobacco use Z87.891 [address] [facility] [id number] [address] [place] [address] Jan, Major depressive disorder, r ecurrent episode, mild degree F33.0 and Generalized anxiety disorder F41.1 [facility] [address] [id number] [address] [place] [address] Jan, [facility] [address] [facility] [id number] [address] [place] [address] Jan, Generalized anxiety disorder F41.1 and Major depressive disorder, recurrent episode, mild degree F33.0 [facility] [address] [id number] [address] [place] [address] Dec, Primary osteoarthritis invol ving multiple joints M15.0 [facility] [address] [id number] [address] [place] [address] Dec, Generalized anxiety disorder F41.1 [facility] [address] [facility] [id number] [address] [place] [address] Dec, [facility] [address] [facility] [id number] [address] [place] [address] Dec, Major depressive disorder, r ecurrent episode, mild degree F33.0 and Generalized anxiety disorder F41.1 [facility] [address] [facility] [id number] [address] [place] [address] Dec, Generalized anxiety disorder F41.1 and Major depressive disorder, recurrent episode, mild degree F33.0 [facility] [id number] [place] [address] November, Mild major depression F32.0 and Primary osteoarthritis involving multiple joints M15.0 [facility] [address] [place] [address] November, Major depressive disorder, r ecurrent episode, mild degree F33.0 and Generalized anxiety disorder F41.1 [address] [place] [address] [place] [address] November, Primary osteoarthritis invol ving multiple joints M15.0 ; Essential hypertension I10 ; Prediabetes R73.09 ; Mixed hyperlipidemia E78.2 ; Chronic prescription benzodiazepine use Z79.899 ; Chronic prescription opiate use Z79.899 ; Tobacco use Z72.0 ; Bilateral carpal tunnel syndrome G56.03 and Body mass index (bmi) 50-59.9 , adult Z68.43 [address] [address] [place] [address] November, Primary osteoarthritis invol ving multiple joints M15.0 and Mild major depression F32.0 [place] [id number] [place] [address] Oct, [address] [id number] [place] [address] Oct, Primary osteoarthritis invol ving multiple joints M15.0 ; Essential hypertension I10 ; Prediabetes R73.09 ; Chronic prescription benzodiazepine use Z79.899 ; Chronic prescription opiate use Z79.899 ; Tobacco use Z72.0 ; Mixed hyperlipidemia E78.2 ; Bilateral carpal tunnel syndrome G56.03 ; Body mass index (bmi) 50-59.9 , adult Z68.43 and Encounter for immunization Z23 [facility] [address] [id number] [address] [place] [address] Oct, Major depressive disorder, r ecurrent episode, mild degree F33.0 and Generalized anxiety disorder F41.1 [facility] [address] [id number] [address] [place] [address] Oct, [facility] [address] [id number] [address] [place] [address] Oct, [facility] [address] [id number] [address] [place] [address] Sep, Mild major depression F32.0 [facility] [address] [id number] [address] [place] [address] Sep, [facility] [address] [facility] [id number] [address] [place] [address] Sep, Mild major depression F32.0 and Generalized anxiety disorder F41.1 [facility] [address] [id number] [address] [place] [address] Sep, Paresthesia of both hands R2 0.2 and Cervical radiculopathy M54.12 [facility] [address] [facility] [id number] [address] [place] [address] Sep, [facility] [address] [facility] [id number] [address] [place] [address] Sep, [facility] [address] [id number] [address] [place] [address] Aug, Paresthesia of both hands R2 0.2 and Neck pain M54.2 [facility] [address] [id number] [address] [place] [address] Aug, [facility] [address] [facility] [id number] [address] [place] [address] Jul, Neck pain M54.2 and Paresthe eddie of both hands R20.2 [facility] [address] [facility] [id number] [address] [place] [address] Jul, Proteinuria, unspecified typ e R80.9 [facility] [address] [facility] [id number] [address] [place] [address] Jul, Proteinuria, unspecified typ e R80.9 [facility] [address] [facility] [id number] [address] [place] [address] Jul, [facility] [address] [facility] [id number] [address] [place] [address] Jul, Other specified transient ce rebral ischemias G45.8 [facility] [address] [facility] [id number] [address] [place] [address] Jun, Diastolic dysfunction I51.9 [facility] [address] [facility] [id number] [address] [place] [address] Jun, Diastolic dysfunction I51.9 [facility] [address] [facility] [id number] [address] [place] [address] Jun, Major depressive disorder, s david episode, unspecified F32.9 and Anxiety disorder, unspecified F41.9 [facility] [address] [facility] [id number] [address] [place] [address] Jun, [facility] [address] [facility] [id number] [address] [place] [address] Jun, [facility] [address] [facility] [id number] [address] [place] [address] May, Moderate major depression F3 2.1 and Generalized anxiety disorder F41.1 [facility] [address] [facility] [id number] [address] [place] [address] 16 May, 2016 Major depressive disorder, s david episode, unspecified F32.9 and Anxiety disorder, unspecified F41.9 [facility] [address] [facility] [id number] [address] [place] [address] 15 May, 2016 [facility] [address] [facility] [id number] [address] [place] [address] 14 May, 2016 Liver enzyme elevation R74.8 [facility] [address] [facility] [id number] [address] [place] [address] 14 May, 2016 Liver enzyme elevation R74.8 [facility] [address] [facility] [id number] [address] [place] [address] 10 May, 2016 Shortness of breath on exert ion R06.02 ; Essential hypertension I10 ; Mixed hyperlipidemia E78.2 and Tobacco use Z72.0 [facility] [address] [facility] [id number] [address] [place] [address] 03 May, 2016 [facility] [address] [facility] [id number] [address] [place] [address] May, [facility] [address] [facility] [id number] [address] [place] [address] Apr, Anxiety F41.9 and Depression F32.9 [facility] [id number] [place] [address] Apr, [facility] [id number] [place] [address] Apr, [facility] [id number] [place] [address] 22 Mar, 2016 Depression F32.9 and Anxiety F41.9 [facility] [id number] [place] [address] 08 Mar, 2016 Anxiety F41.9 and Depression F32.9 [facility] [address] [facility] [id number] [address] [place] [id number] 06 Mar, 2016 Well woman exam (no gynecolo gical exam) Z00.00 [facility] [address] [facility] [id number] [address] [place] [address] Mar, [facility] [address] [facility] [id number] [address] [place] [address] Mar, [facility] [address] [id number] [address] [place] [id number] Feb, Dental caries K02.9 [facility] [address] [id number] [address] [place] [address] Feb, [facility] [address] [id number] [address] [place] [address] Feb, Anxiety F41.9 and Depression F32.9 [facility] [address] [id number] [address] [place] [id number] Feb, Dental examination Z01.20 [facility] [address] [id number] [address] [place] [address] Feb, [facility] [address] [id number] [address] [place] [address] Feb, [facility] [address] [id number] [address] [place] [address] Feb, Anxiety F41.9 and Depression F32.9 [facility] [address] [id number] [address] [place] [address] Jan, Severe episode of recurrent major depressive disorder, without psychotic features F33.2 and Anxiety disorder, unspecified F41.9 [facility] [address] [id number] [address] [place] [address] Jan, [facility] [address] [id number] [address] [place] [address] Dec, [facility] [address] [id number] [address] [place] [address] Dec, Anxiety F41.9 and Depression F32.9 [facility] [address] [id number] [address] [place] [address] Dec, Other specified transient ce rebral ischemias G45.8 and Nocturnal hypoxia G47.34 [facility] [address] [id number] [address] [place] [address] Dec, [facility] [address] [id number] 17 Dec, 2015 Other specified transient ce rebral ischemias G45.8 [place] [address] [address] 16 Dec, 2015 Severe episode of recurrent major depressive disorder, without psychotic features F33.2 and Anxiety disorder, unspecified F41.9 [place] [address] [address] Dec, [place] [address] [address] Dec, Anxiety F41.9 and Depression F32.9 [place] [address] [address] 07 Dec, 2015 Anxiety F41.9 and Depression F32.9 [place] [address] [address] Dec, [place] [address] [address] November, Anxiety F41.9 and Depression F32.9 [place] [address] [address] November, Severe episode of recurrent major depressive disorder, without psychotic features F33.2 [place] [address] [address] November, Mixed hyperlipidemia E78.2 [place] [address] [address] November, Anxiety F41.9 and Depression F32.9 [place] [address] [address] 05 Nov, 2015 Prediabetes R73.09 ; Essenti al hypertension I10 ; Anxiety F41.9 ; Depression F32.9 ; Gastroesophageal reflux disease, esophagitis presence not specified K21.9 ; Primary osteoarthritis involving multiple joints M15.0 ; History of renal cell cancer Z85.528 ; Postnasal drip R09.82 ; Allergic rhinitis, unspecified J30.9 and Tobacco use Z72.0 [facility] [address] [address] 11 Oct, 2015 Anxiety F41.9 and Depression F32.9 [place] [address] [address] Oct, [place] [address] [address] Oct, [facility] [address] [address] 14 Sep, 2015 Splenic artery aneurysm I72. 8 [place] [address] [address] 10 Sep, 2015 Depression F32.9 ; Anxiety F 41.9 ; Chronic prescription benzodiazepine use Z79.899 and Splenic artery aneurysm I72.8 [place] [address] [address] 10 Sep, 2015 Depression F32.9 and Anxiety F41.9 [place] [address] [address] Sep, [place] [address] [address] 18 Aug, 2015 Dehydration E86.0 ; Diarrhea R19.7 ; Nausea R11.0 and Generalized abdominal pain R10.84 [place] [address] [address] Aug, [place] [address] [address] Jul, Depression F32.9 [place] [address] [address] Jul, [place] [address] [address] Jul, Anxiety F41.9 and Depression F32.9 [facility] [address] [facility] [id number] [address] [place] [address] Jul, [facility] [address] [facility] [id number] [address] [place] [address] Jun, Epigastric pain R10.13 [facility] [address] [id number] [address] [place] [address] Jun, [facility] [address] [id number] [address] [place] [address] Jun, [facility] [address] [facility] [id number] [address] [place] [address] May, [facility] [address] [facility] [id number] [address] [place] [address] May, [facility] [address] [facility] [id number] [address] [place] [address] Apr, [facility] [address] [facility] [id number] [address] [place] [address] Mar, Anxiety state, unspecified 3 00.00 ; Depression 311 ; Prediabetes 790.29 ; Generalized osteoarthrosis, involving multiple sites 715.09 and Hypertension 401.9 [facility] [address] [facility] [id number] [address] [place] [address] Mar, [facility] [address] [facility] [id number] [address] [place] [address] Feb, [facility] [address] [facility] [id number] [address] [place] [address] Jan, [facility] [address] [facility] [id number] [address] [place] [address] Jan, [facility] [address] [facility] [id number] [address] [place] [address] Jan, Generalized osteoarthrosis, involving multiple sites 715.09 [facility] [address] [facility] [id number] [address] [place] [id number] 07 Jan, 2015 Hx of renal cell cancer V10. 52 [facility] [address] [id number] [address] [place] [address] Dec, Generalized osteoarthrosis, involving multiple sites 715.09 and Hx of renal cell cancer V10.52 [facility] [address] [id number] [address] [place] [address] Dec, [facility] [address] [id number] [address] [place] [address] Dec, [facility] [address] [id number] [address] [place] [address] November, [facility] [address] [id number] [address] [place] [id number] Oct, [facility] [address] [id number] [address] [place] [address] Oct, [facility] [address] [id number] [address] [place] [address] Sep, [facility] [address] [id number] [address] [place] [address] Sep, [facility] [address] [id number] [address] [place] [id number] Sep, [facility] [address] [id number] [address] [place] [address] Sep, [facility] [address] [id number] [address] [place] [address] Aug, [facility] [address] [id number] [address] [place] [address] Aug, IMMUNIZATIONS No Known Immunizations SOCIAL HISTORY Never Assessed REASON FOR VISIT 3 month f/u---DBennettRN PLAN OF CARE Activity Details Follow Up 6 Months Reason:HTN VITAL SIGNS Height 62 in 2017-02-15 Weight 284 lbs 2017-02-15 Temperature 98.3 degrees Fahrenheit 2017-02-15 Heart Rate 70 bpm 2017-02-15 Respiratory Rate 20 2017-02-15 BMI 51.94 kg/m2 2017-02-15 Blood pressure systolic 132 mmHg 2017-02-15 Blood pressure diastolic 86 mmHg 2017-02-15 MEDICATIONS Medication Instructions Dosage Frequency Start Date End Date Duration S fabrice BuPROPion HCl ER (XL) 300 MG Orally Once a day 1 tablet in the morning 24h Active Duloxetine HCl 60 mg Orally Once a day 1 capsule 24h Sep, Active Wellbutrin XL 150 MG Orally Once a day (along wit h 300 mg tablet to equal 450 mg daily 1 tablet in the morning Dec, Active Tizanidine HCl 2 MG Orally every 8 hrs 1 tablet as needed 8h Active Potassium Chloride ER 20 MEQ Orally Once a day 1 tablet with food 24h 30 Active Remeron 15 mg Orally Once a day 1 tablet at bedtime 24h Dec, Active Diazepam 5 mg Orally Once a day 0.5 tablet as needed at bedtime for anxiety 24h Sep, Active Hydrocodone-Acetaminophen 5-325 MG Orally 2 times a day as n eeded for pain take 1 tablet Sep, Active Omeprazole 20 mg Orally Once a day 2 capsules 24h Jun, 30 day(s) Active Furosemide 20 mg Orally Once a day 1 tablet 24h 30 Active Atorvastatin Calcium 40 mg Orally Once a day 1 tablet 24h Active Atenolol 50 mg Orally Once a day 1 tablet 24h Active RESULTS No Results PROCEDURES No Known [...]
--- OUTSIDE RECORDS SUMMARY | 2020-02-08 07:24 | XMS REPORT ---
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 Name Role Phone LALOJEZALBANIA Unavailable PROBLEMS Type Condition ICD9-CM Code ASB12-ZS Code Onset Dates Condition S tatus SNOMED Code Problem Mixed hyperlipidemia E78.2 Active 607113517 Problem Fatty liver K76.0 Active 78294051 7 Problem Obstructive sleep apnea G47.33 Active 25356216 Problem Allergic rhinitis, unspecified J30.9 Active 40633854 Problem Essential hypertension I10 Active 66961302 Problem History of renal cell cancer Z85.528 A ctive 676481768 Problem Prediabetes R73.09 Active 1523841 Problem Diastolic dysfunction I51.9 Active 1076340 Problem Body mass index (bmi) 50-59.9 , adult Z68.43 Active 381629080 Problem Paresthesia of both hands R20.2 Acti ve 250615254 Problem Habitual self-excoriation F42.4 Acti ve 396714547 Problem BMI 50.0-59.9, adult Z68.43 Active 557225134 Problem Restrictive lung disease J98.4 Activ e 37426489 Problem Splenic artery aneurysm I72.8 Active 76856163 Problem Liver mass R16.0 Active 699552517 Problem Generalized anxiety disorder F41.1 A ctive 00981897 Problem Major depressive disorder, recurrent episode, mild degree F33.0 Active 572129960 Problem Excoriation, neurotic L98.1 Active 23090163 Problem History of tobacco use Z87.891 Active 4603687875884 Problem Primary osteoarthritis involving multiple joints M 15.0 Active 961219049 Problem Isolated proteinuria without specific morphologic lesion R80.0 Active 67564260 Problem 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 Active 269651391 Problem Pulmonary emphysema, unspecified emphysema type J4 3.9 Active 65472864 Problem Chronic prescription opiate use Z79.899 Active 364799205 Problem Tobacco use Z72.0 Active 42079096 0 Problem Bilateral carpal tunnel syndrome G56.03 Active 58923019 Problem Chronic prescription benzodiazepine use Z79.899 Active 480657002 ALLERGIES No Known Allergies ENCOUNTERS Encounter Location Date Diagnosis [facility] [address] [facility] [id number] [address] [place] [address] Feb, [facility] [address] [facility] [id number] [address] [place] [address] Jan, [facility] [address] [place] [id number] [address] [place] [address] Dec, [facility] [address] [address] Dec, [facility] [address] [place] [id number] [place] [address] Dec, [facility] [address] [address] November, [facility] [address] [place] [id number] [address] [place] [address] November, [facility] [address] [address] November, Pulmonary emphysema, unspeci fied emphysema type J43.9 ; Restrictive lung disease J98.4 ; BMI 50.0-59.9, adult Z68.43 ; History of renal cell cancer Z85.528 ; Essential hypertension I10 ; Mixed hyperlipidemia E78.2 and Fatty liver K76.0 [facility] [address] [place] [id number] [address] [place] [address] November, Generalized anxiety disorder F41.1 [facility] [address] [address] November, Generalized anxiety disorder F41.1 and Major depressive disorder, recurrent episode, mild degree F33.0 [facility] [address] [place] [id number] [address] [place] [address] November, Generalized anxiety disorder F41.1 ; Major depressive disorder, recurrent episode, mild degree F33.0 and Habitual self-excoriation F42.4 [facility] [address] [place] [id number] [address] [place] [address] November, [facility] [address] [facility] [id number] [address] [place] [address] Oct, Generalized anxiety disorder F41.1 [facility] [address] [place] [id number] [address] [place] [place] [address] Oct, [facility] [address] [facility] [id number] [address] [place] [address] Oct, Influenza-like illness R69 [facility] [address] [place] [id number] [address] [place] [address] Sep, Influenza-like illness R69 [facility] [address] [place] [id number] [address] [place] [address] Sep, Generalized anxiety disorder F41.1 [facility] [address] [place] [id number] [address] [place] [place] [address] Sep, [facility] [address] [place] [id number] [address] [place] [address] Aug, [facility] [address] [place] [id number] [address] [place] [address] Aug, [facility] [address] [place] [address] Aug, Generalized anxiety disorder F41.1 [facility] [address] [facility] [id number] [address] [place] [address] Aug, Influenza-like illness R69 a nd BMI 50.0-59.9, adult Z68.43 [facility] [address] [facility] [id number] [address] [place] [address] Jul, Fatty liver K76.0 ; Restrict jean-paul lung disease J98.4 ; Diastolic dysfunction I51.9 ; Body mass index (bmi) 50-59.9 , adult Z68.43 and Chronic prescription opiate use Z79.899 [facility] [address] [facility] [id number] [address] [address] Jul, Generalized anxiety disorder F41.1 [facility] [address] [facility] [id number] [address] [address] Jul, Generalized anxiety disorder F41.1 [facility] [address] [facility] [id number] [address] [address] Jul, Primary osteoarthritis invol ving multiple joints M15.0 [facility] [address] [facility] [id number] [address] [address] Jun, Generalized anxiety disorder F41.1 [place] [address] [place] [id number] [address] [place] [address] Jun, [place] [address] [place] [id number] [address] [place] [address] Jun, Mixed hyperlipidemia E78.2 [facility] [address] [facility] [id number] [address] [address] Jun, Generalized anxiety disorder F41.1 [place] [address] [facility] [id number] [address] [place] [address] Jun, Generalized anxiety disorder F41.1 ; Major depressive disorder, recurrent episode, mild degree F33.0 and Habitual self-excoriation F42.4 [facility] [address] [facility] [id number] [address] [place] [address] May, [facility] [address] [facility] [id number] [address] [address] May, Generalized anxiety disorder F41.1 [facility] [address] [facility] [id number] [address] [place] [address] May, Generalized anxiety disorder F41.1 [facility] [address] [place] [id number] [address] [place] [address] May, Primary osteoarthritis invol ving multiple joints M15.0 [facility] [address] [id number] [address] [place] [address] 09 Apr, 2017 Major depressive disorder, r ecurrent episode, mild degree F33.0 ; Generalized anxiety disorder F41.1 and Excoriation, neurotic L98.1 [facility] [address] [id number] [address] [place] [address] Apr, Primary osteoarthritis invol ving multiple joints M15.0 [facility] [address] [id number] [address] [place] [address] Apr, Essential hypertension I10 a nd Mixed hyperlipidemia E78.2 [facility] [address] [id number] [address] [place] [address] Apr, Generalized anxiety disorder F41.1 ; Major depressive disorder, recurrent episode, mild degree F33.0 and Habitual self-excoriation F42.4 [facility] [address] [id number] [address] [place] [address] 06 Mar, 2017 Generalized anxiety disorder F41.1 ; Major depressive disorder, recurrent episode, mild degree F33.0 and Habitual self-excoriation F42.4 [facility] [address] [id number] [address] [place] [address] Mar, Skin lesion L98.9 [facility] [address] [id number] [address] [place] [address] Mar, Primary osteoarthritis invol ving multiple joints M15.0 [facility] [address] [id number] [address] [address] Mar, [facility] [address] [id number] [address] [address] Mar, [facility] [address] [id number] [address] [address] Feb, Major depressive disorder, r ecurrent episode, mild degree F33.0 ; Generalized anxiety disorder F41.1 and Excoriation, neurotic L98.1 [facility] [address] [facility] [id number] [address] [address] Feb, Generalized anxiety disorder F41.1 [facility] [address] [place] [id number] [address] [place] [address] Feb, Primary osteoarthritis invol ving multiple joints M15.0 [facility] [address] [place] [id number] [address] [place] [address] Jan, [facility] [address] [facility] [id number] [address] [place] [address] Jan, Essential hypertension I10 ; Splenic artery aneurysm I72.8 ; Liver mass R16.0 ; Restrictive lung disease J98.4 ; Primary osteoarthritis involving multiple joints M15.0 ; Mixed hyperlipidemia E78.2 ; Bilateral carpal tunnel syndrome G56.03 ; Body mass index (bmi) 50-59.9 , adult Z68.43 and History of tobacco use Z87.891 [place] [address] [place] [id number] [address] [place] [address] Jan, Major depressive disorder, r ecurrent episode, mild degree F33.0 and Generalized anxiety disorder F41.1 [place] [address] [place] [id number] [address] [place] [address] Jan, [place] [address] [place] [id number] [address] [place] [address] Jan, Generalized anxiety disorder F41.1 and Major depressive disorder, recurrent episode, mild degree F33.0 [facility] [address] [facility] [id number] [address] [place] [address] Dec, Primary osteoarthritis invol ving multiple joints M15.0 [facility] [address] [facility] [id number] [address] [place] [address] Dec, Generalized anxiety disorder F41.1 [facility] [address] [place] [id number] [address] [place] [address] Dec, [place] [address] [place] [address] Dec, Major depressive disorder, r ecurrent episode, mild degree F33.0 and Generalized anxiety disorder F41.1 [place] [address] [place] [id number] [address] [place] [address] Dec, Generalized anxiety disorder F41.1 and Major depressive disorder, recurrent episode, mild degree F33.0 [place] [address] [place] [id number] [address] [place] [address] November, Mild major depression F32.0 and Primary osteoarthritis involving multiple joints M15.0 [place] [address] [place] [id number] [address] [place] [address] November, Major depressive disorder, r ecurrent episode, mild degree F33.0 and Generalized anxiety disorder F41.1 [place] [address] [place] [id number] [address] [place] [address] November, Primary osteoarthritis invol ving multiple joints M15.0 ; Essential hypertension I10 ; Prediabetes R73.09 ; Mixed hyperlipidemia E78.2 ; Chronic prescription benzodiazepine use Z79.899 ; Chronic prescription opiate use Z79.899 ; Tobacco use Z72.0 ; Bilateral carpal tunnel syndrome G56.03 and Body mass index (bmi) 50-59.9 , adult Z68.43 [place] [address] [place] [id number] [address] [place] [address] November, Primary osteoarthritis invol ving multiple joints M15.0 and Mild major depression F32.0 [place] [address] [place] [id number] [address] [place] [address] Oct, [place] [address] [place] [id number] [address] [place] [address] Oct, Primary osteoarthritis invol ving multiple joints M15.0 ; Essential hypertension I10 ; Prediabetes R73.09 ; Chronic prescription benzodiazepine use Z79.899 ; Chronic prescription opiate use Z79.899 ; Tobacco use Z72.0 ; Mixed hyperlipidemia E78.2 ; Bilateral carpal tunnel syndrome G56.03 ; Body mass index (bmi) 50-59.9 , adult Z68.43 and Encounter for immunization Z23 [facility] [address] [facility] [id number] [address] [place] [address] Oct, Major depressive disorder, r ecurrent episode, mild degree F33.0 and Generalized anxiety disorder F41.1 [facility] [address] [id number] [address] [place] [address] Oct, [facility] [address] [id number] [address] [place] [address] Oct, [facility] [address] [id number] [address] [place] [address] Sep, Mild major depression F32.0 [facility] [address] [id number] [address] [place] [address] Sep, [facility] [address] [facility] [id number] [address] [place] [address] Sep, Mild major depression F32.0 and Generalized anxiety disorder F41.1 [facility] [address] [id number] [address] [place] [address] Sep, Paresthesia of both hands R2 0.2 and Cervical radiculopathy M54.12 [facility] [address] [id number] [address] [place] [address] Sep, [facility] [address] [id number] [address] [place] [address] Sep, [facility] [address] [id number] [address] [place] [address] Aug, Paresthesia of both hands R2 0.2 and Neck pain M54.2 [facility] [address] [facility] [id number] [address] [place] [address] Aug, [facility] [address] [facility] [id number] [address] [place] [address] Jul, Neck pain M54.2 and Paresthe eddie of both hands R20.2 [place] [address] [facility] [id number] [address] [place] [address] Jul, Proteinuria, unspecified typ e R80.9 [facility] [address] [facility] [id number] [address] [place] [address] Jul, Proteinuria, unspecified typ e R80.9 [place] [address] [facility] [id number] [address] [place] [address] Jul, [place] [address] [facility] [id number] [address] [place] [address] Jul, Other specified transient ce rebral ischemias G45.8 [place] [address] [facility] [id number] [address] [place] [address] Jun, Diastolic dysfunction I51.9 [place] [address] [place] [id number] [address] [address] Jun, Diastolic dysfunction I51.9 [place] [address] [facility] [id number] [address] [place] [address] Jun, Major depressive disorder, s david episode, unspecified F32.9 and Anxiety disorder, unspecified F41.9 [place] [address] [facility] [id number] [address] [place] [address] Jun, [place] [address] [place] [id number] [address] [place] [address] Jun, [place] [address] [facility] [id number] [address] [place] [address] May, Moderate major depression F3 2.1 and Generalized anxiety disorder F41.1 [place] [address] [facility] [id number] [address] [place] [address] May, Major depressive disorder, s david episode, unspecified F32.9 and Anxiety disorder, unspecified F41.9 [place] [address] [place] [id number] [address] [place] [address] May, [facility] [address] [facility] [id number] [address] [place] [address] 14 May, 2016 Liver enzyme elevation R74.8 [facility] [address] [facility] [id number] [address] [place] [address] 14 May, 2016 Liver enzyme elevation R74.8 [facility] [address] [facility] [id number] [address] [place] [address] 10 May, 2016 Shortness of breath on exert ion R06.02 ; Essential hypertension I10 ; Mixed hyperlipidemia E78.2 and Tobacco use Z72.0 [facility] [address] [facility] [id number] [address] [place] [address] 03 May, 2016 [facility] [address] [facility] [id number] [address] [place] [address] 02 May, 2016 [facility] [address] [place] [id number] [address] [place] [address] Apr, Anxiety F41.9 and Depression F32.9 [facility] [address] [place] [id number] [address] [place] [address] Apr, [facility] [address] [place] [id number] [address] [place] [place] [address] Apr, [facility] [address] [place] [id number] [address] [place] [address] Mar, Depression F32.9 and Anxiety F41.9 [facility] [address] [facility] [id number] [address] [place] [address] 08 Mar, 2016 Anxiety F41.9 and Depression F32.9 [facility] [address] [facility] [id number] [address] [place] [address] 06 Mar, 2016 Well woman exam (no gynecolo gical exam) Z00.00 [facility] [address] [facility] [id number] [address] [address] 02 Mar, 2016 [facility] [address] [place] [id number] [address] [place] [address] Mar, [facility] [address] [id number] [address] [place] [id number] Feb, Dental caries K02.9 [facility] [address] [id number] [address] [place] [address] Feb, [facility] [address] [id number] [address] [place] [address] Feb, Anxiety F41.9 and Depression F32.9 [facility] [address] [id number] [address] [place] [id number] Feb, Dental examination Z01.20 [facility] [address] [id number] [address] [place] [place] [address] Feb, [facility] [address] [id number] [address] [place] [address] Feb, [facility] [address] [id number] [address] [place] [address] Feb, Anxiety F41.9 and Depression F32.9 [facility] [address] [id number] [address] [place] [address] Jan, Severe episode of recurrent major depressive disorder, without psychotic features F33.2 and Anxiety disorder, unspecified F41.9 [facility] [address] [id number] [address] [place] [address] Jan, [facility] [address] [id number] [address] [place] [address] Dec, [facility] [address] [id number] [address] [place] [address] Dec, Anxiety F41.9 and Depression F32.9 [facility] [address] [facility] [id number] [address] [place] [address] Dec, Other specified transient ce rebral ischemias G45.8 and Nocturnal hypoxia G47.34 [facility] [address] [id number] [address] [place] [address] 18 Dec, 2015 [place] [address] [id number] [address] [place] [address] 17 Dec, 2015 Other specified transient ce rebral ischemias G45.8 [place] [address] [facility] [id number] [address] [place] [address] 16 Dec, 2015 Severe episode of recurrent major depressive disorder, without psychotic features F33.2 and Anxiety disorder, unspecified F41.9 [place] [address] [facility] [id number] [address] [place] [address] 13 Dec, 2015 [place] [address] [place] [id number] [address] 13 Dec, 2015 Anxiety F41.9 and Depression F32.9 [place] [address] [place] [id number] [address] [place] [address] 07 Dec, 2015 Anxiety F41.9 and Depression F32.9 [place] [address] [place] [id number] [address] [place] [address] Dec, [place] [address] [facility] [id number] [address] [place] [address] November, Anxiety F41.9 and Depression F32.9 [place] [address] [facility] [id number] [address] [id number] November, Severe episode of recurrent major depressive disorder, without psychotic features F33.2 [place] [address] [place] [id number] [address] [place] [id number] November, Mixed hyperlipidemia E78.2 [place] [address] [facility] [id number] [address] [id number] November, Anxiety F41.9 and Depression F32.9 [place] [address] [facility] [id number] [address] [id number] 05 Nov, 2015 Prediabetes R73.09 ; Essenti al hypertension I10 ; Anxiety F41.9 ; Depression F32.9 ; Gastroesophageal reflux disease, esophagitis presence not specified K21.9 ; Primary osteoarthritis involving multiple joints M15.0 ; History of renal cell cancer Z85.528 ; Postnasal drip R09.82 ; Allergic rhinitis, unspecified J30.9 and Tobacco use Z72.0 [facility] [address] [id number] 11 Oct, 2015 Anxiety F41.9 and Depression F32.9 [place] [address] [id number] 07 Oct, 2015 [place] [address] [id number] Oct, [place] [address] [id number] 14 Sep, 2015 Splenic artery aneurysm I72. 8 [place] [address] [id number] 10 Sep, 2015 Depression F32.9 ; Anxiety F 41.9 ; Chronic prescription benzodiazepine use Z79.899 and Splenic artery aneurysm I72.8 [place] [address] [id number] Sep, Depression F32.9 and Anxiety F41.9 [place] [address] [id number] Sep, [place] [address] [id number] 18 Aug, 2015 Dehydration E86.0 ; Diarrhea R19.7 ; Nausea R11.0 and Generalized abdominal pain R10.84 [place] [address] [id number] Aug, [place] [address] [address] Jul, Depression F32.9 [place] [address] [id number] Jul, [facility] [address] [id number] [address] [place] [id number] Jul, Anxiety F41.9 and Depression F32.9 [facility] [address] [facility] [id number] [address] [id number] Jul, [facility] [address] [facility] [id number] [address] [place] [address] Jun, Epigastric pain R10.13 [facility] [address] [id number] [address] [place] [id number] Jun, [facility] [address] [id number] [address] [place] [id number] Jun, [facility] [address] [facility] [id number] [address] [place] [id number] May, [facility] [address] [facility] [id number] [address] [place] [id number] May, [facility] [address] [facility] [id number] [address] [place] [id number] Apr, [facility] [address] [facility] [id number] [address] [place] [id number] Mar, Anxiety state, unspecified 3 00.00 ; Depression 311 ; Prediabetes 790.29 ; Generalized osteoarthrosis, involving multiple sites 715.09 and Hypertension 401.9 [facility] [address] [facility] [id number] [address] [place] [id number] Mar, [facility] [address] [facility] [id number] [address] [place] [id number] Feb, [facility] [address] [facility] [id number] [address] [place] [id number] Jan, [facility] [address] [facility] [id number] [address] [place] [id number] Jan, [facility] [address] [facility] [id number] [address] [place] [id number] Jan, Generalized osteoarthrosis, involving multiple sites 715.09 [facility] [address] [id number] [address] [place] [id number] 07 Jan, 2015 Hx of renal cell cancer V10. 52 [facility] [address] [id number] [address] [place] [id number] 30 Dec, 2014 Generalized osteoarthrosis, involving multiple sites 715.09 and Hx of renal cell cancer V10.52 [facility] [address] [id number] [address] [place] [id number] 24 Dec, 2014 [facility] [address] [id number] [address] [place] [place] [id number] Dec, [facility] [address] [id number] [address] [place] [place] [id number] November, [facility] [address] [id number] [address] [place] [place] [id number] Oct, [facility] [address] [id number] [address] [place] [place] [id number] Oct, [facility] [address] [id number] [address] [place] [place] [id number] Sep, [facility] [address] [id number] [address] [place] [place] [id number] Sep, [facility] [address] [id number] [address] [place] [id number] Sep, [facility] [address] [id number] [address] [place] [place] [id number] Sep, [facility] [address] [id number] [address] [place] [id number] Aug, [facility] [address] [id number] [address] [place] [place] [id number] Aug, IMMUNIZATIONS No Known Immunizations SOCIAL HISTORY Never Assessed REASON FOR VISIT rld f/u, patient states she is having shortness of breath -- luan garcia PLAN OF CARE Activity Details Follow Up 2 Months Reason:f/u Referral /PFTs VITAL SIGNS Height 62 in 2017-08-20 Weight 284.0 lbs 2017-08-20 Temperature 97.2 degrees Fahrenheit 2017-08-20 Heart Rate 82 bpm 2017-08-20 Respiratory Rate 22 2017-08-20 Oximetry 97 % 2017-08-20 BMI 51.94 kg/m2 2017-08-20 Blood pressure systolic 132 mmHg 2017-08-20 Blood pressure diastolic 84 mmHg 2017-08-20 MEDICATIONS Medication Instructions Dosage Frequency Start Date End Date Duration S tatus Remeron 15 mg Orally Once a day at bedtime 1 tablet at bedtime Active Hydrocodone-Acetaminophen 5-325 MG Orally 2 times a day as n eeded for pain take 1 tablet Jul, 28 days Not-Taking Cymbalta 30 MG Orally Once a day 3 capsules 24h Active Atenolol 50 mg Orally Once a day 1 tablet 24h Active Atorvastatin Calcium 40 mg Orally Once a day 1 tablet 24h 30 Active BuPROPion HCl ER (XL) 150 MG TAKE ONE TA BLET BY MOUTH ONCE DAILY IN THE MORNING ALONG WITH WELLBUTRIN XL 300 MG 3 0 Not-Taking Mirtazapine 15 MG TAKE ONE TABLET BY MOUTH ONCE DAILY AT BEDTIME 30 Active Wellbutrin XL 300 MG Orally Once a day 1 tablet in the morning 24h Active Furosemide 20 mg Orally Once a day 1 tablet 24h 30 Active Tizanidine HCl 2 MG Orally every 8 hrs 1 tablet as needed 8h 30 Active Potassium Chloride ER 20 MEQ Orally Once a day 1 tablet with food 24h 30 Active Wellbutrin XL 150 MG Orally Once a day (along wit h 300 mg tablet to equal 450 mg daily 1 tablet in the morning A ctive Omeprazole 20 mg Orally Once a day 2 capsules 24h Jun, 30 day(s) Active Omeprazole 40 MG TAKE ONE CAPSULE BY MOUTH ONCE DAILY 30 Not-Taking Hydrocodone-Acetaminophen 5-325 MG Orally 2 times a day as n eeded for pain take 1 tablet Jun, 28 Active Diazepam 5 mg Orally Once a day as needed for anxiety 0.5 tablet 30 days Active RESULTS Name Result Date Reference Range [employer] 2017-08-20 PROCEDURES Procedure Date Ordered Result Body Site PULMONARY FUNCTION TEST 2017-08-20 Mild obstructive defect with significant bronchodilator response. FVC 84% predicted. MEASURE BLOOD OXYGEN LEVEL Aug 20, 2017 No Charge Aug 20, 2017 INSTRUCTIONS MEDICATIONS ADMINISTERED No Known Medications [...]
--- OUTSIDE RECORDS SUMMARY | 2020-02-08 07:25 | XMS REPORT ---
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 Sponge Boat Name Role Phone [email or web address] Unavailable PROBLEMS Type Condition ICD9-CM Code SEU18-NR Code Onset Dates Condition S tatus SNOMED Code Problem Mixed hyperlipidemia E78.2 Active 701796805 Problem Fatty liver K76.0 Active 41168545 7 Problem Obstructive sleep apnea G47.33 Active 89579015 Problem Allergic rhinitis, unspecified J30.9 Active 14736794 Problem Essential hypertension I10 Active 46363361 Problem History of renal cell cancer Z85.528 A ctive 980872304 Problem Prediabetes R73.09 Active 5855785 Problem Diastolic dysfunction I51.9 Active 3580313 Problem Body mass index (bmi) 50-59.9 , adult Z68.43 Active 804790140 Problem Paresthesia of both hands R20.2 Acti ve 582344206 Problem Habitual self-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 Acti ve 267611749 Problem BMI 50.0-59.9, adult Z68.43 Active 836690094 Problem Restrictive lung disease J98.4 Activ e 63855793 Problem Splenic artery aneurysm I72.8 Active 28158740 Problem Liver mass R16.0 Active 252576986 Problem Generalized anxiety disorder F41.1 A ctive 09967631 Problem Major depressive disorder, recurrent episode, mild degree F33.0 Active 129383459 Problem Excoriation, neurotic L98.1 Active 34435538 Problem History of tobacco use Z87.891 Active 7883510158204 Problem Primary osteoarthritis involving multiple joints M 15.0 Active 954097245 Problem Isolated proteinuria without specific morphologic lesion R80.0 Active 19673650 Problem 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 Active 857093846 Problem Pulmonary emphysema, unspecified emphysema type J4 3.9 Active 58899235 Problem Chronic prescription opiate use Z79.899 Active 488507932 Problem Tobacco use Z72.0 Active 89305864 0 Problem Bilateral carpal tunnel syndrome G56.03 Active 70830742 Problem Chronic prescription benzodiazepine use Z79.899 Active 481192747 ALLERGIES No Known Allergies ENCOUNTERS Encounter Location Date Diagnosis [facility] [id number] [place] [id number] Feb, [facility] [address] [id number] [address] [place] [phone] Dec, [facility] [address] [id number] [place] [phone] Dec, [facility] [address] [address] November, [facility] [address] [address] November, [facility] [address] [address] November, Pulmonary emphysema, unspeci fied emphysema type J43.9 ; Restrictive lung disease J98.4 ; BMI 50.0-59.9, adult Z68.43 ; History of renal cell cancer Z85.528 ; Essential hypertension I10 ; Mixed hyperlipidemia E78.2 and Fatty liver K76.0 [facility] [id number] [place] [phone] November, Generalized anxiety disorder F41.1 [place] [id number] [place] [phone] November, Generalized anxiety disorder F41.1 and Major depressive disorder, recurrent episode, mild degree F33.0 [place] [address] [address] November, Generalized anxiety disorder F41.1 ; Major depressive disorder, recurrent episode, mild degree F33.0 and Habitual self-excoriation F42.4 [facility] [id number] [place] [phone] November, [facility] [address] [facility] [id number] [address] [place] [phone] Oct, Generalized anxiety disorder F41.1 [facility] [address] [facility] [id number] [address] [place] [phone] Oct, [facility] [id number] [place] [phone] Oct, Influenza-like illness R69 [facility] [id number] [place] [phone] Sep, Influenza-like illness R69 [facility] [id number] [place] [id number] Sep, Generalized anxiety disorder F41.1 [facility] [id number] [place] [phone] Sep, [facility] [id number] [place] [phone] Aug, [facility] [id number] [place] [phone] Aug, [facility] [id number] [place] [phone] Aug, Generalized anxiety disorder F41.1 [facility] [address] [facility] [id number] [address] [place] [phone] Aug, Influenza-like illness R69 a nd BMI 50.0-59.9, adult Z68.43 [facility] [id number] [place] [phone] Jul, Fatty liver K76.0 ; Restrict jean-paul lung disease J98.4 ; Diastolic dysfunction I51.9 ; Body mass index (bmi) 50-59.9 , adult Z68.43 and Chronic prescription opiate use Z79.899 [facility] [id number] [place] [phone] Jul, Generalized anxiety disorder F41.1 [facility] [address] [id number] [address] [place] [id number] Jul, Generalized anxiety disorder F41.1 [facility] [address] [id number] [address] [place] [phone] Jul, Primary osteoarthritis invol ving multiple joints M15.0 [facility] [address] [id number] [address] [place] [phone] Jun, Generalized anxiety disorder F41.1 [facility] [address] [id number] [address] [place] [phone] Jun, [facility] [address] [id number] [address] [place] [phone] Jun, Mixed hyperlipidemia E78.2 [facility] [address] [id number] [address] [place] [phone] Jun, Generalized anxiety disorder F41.1 [facility] [address] [id number] [address] [place] [phone] Jun, Generalized anxiety disorder F41.1 ; Major depressive disorder, recurrent episode, mild degree F33.0 and Habitual self-excoriation F42.4 [facility] [address] [id number] [address] [place] [phone] May, [facility] [address] [id number] [address] [place] [id number] May, Generalized anxiety disorder F41.1 [facility] [address] [id number] [address] [place] [phone] May, Generalized anxiety disorder F41.1 [facility] [address] [id number] [address] [place] [phone] May, Primary osteoarthritis invol ving multiple joints M15.0 [facility] [address] [id number] [address] [place] [phone] Apr, Major depressive disorder, r ecurrent episode, mild degree F33.0 ; Generalized anxiety disorder F41.1 and Excoriation, neurotic L98.1 [facility] [address] [id number] [address] [place] [phone] 04 Apr, 2017 Primary osteoarthritis invol ving multiple joints M15.0 [facility] [address] [id number] [address] [place] [phone] 03 Apr, 2017 Essential hypertension I10 a nd Mixed hyperlipidemia E78.2 [facility] [address] [id number] [address] [place] [phone] Apr, Generalized anxiety disorder F41.1 ; Major depressive disorder, recurrent episode, mild degree F33.0 and Habitual self-excoriation F42.4 [facility] [address] [id number] [address] [place] [phone] 06 Mar, 2017 Generalized anxiety disorder F41.1 ; Major depressive disorder, recurrent episode, mild degree F33.0 and Habitual self-excoriation F42.4 [facility] [address] [id number] [address] [place] [phone] 05 Mar, 2017 Skin lesion L98.9 [facility] [address] [id number] [address] [place] [id number] 05 Mar, 2017 Primary osteoarthritis invol ving multiple joints M15.0 [facility] [address] [id number] [address] [place] [phone] Mar, [facility] [address] [id number] [address] [place] [id number] Mar, [facility] [address] [id number] [address] [place] [phone] Feb, Major depressive disorder, r ecurrent episode, mild degree F33.0 ; Generalized anxiety disorder F41.1 and Excoriation, neurotic L98.1 [facility] [address] [id number] [address] [place] [phone] Feb, Generalized anxiety disorder F41.1 [facility] [address] [id number] [address] [place] [id number] Feb, Primary osteoarthritis invol ving multiple joints M15.0 [facility] [address] [facility] [id number] [address] [place] [id number] Jan, [facility] [address] [facility] [id number] [address] [place] [phone] Jan, Essential hypertension I10 ; Splenic artery aneurysm I72.8 ; Liver mass R16.0 ; Restrictive lung disease J98.4 ; Primary osteoarthritis involving multiple joints M15.0 ; Mixed hyperlipidemia E78.2 ; Bilateral carpal tunnel syndrome G56.03 ; Body mass index (bmi) 50-59.9 , adult Z68.43 and History of tobacco use Z87.891 [facility] [id number] [place] [phone] Jan, Major depressive disorder, r ecurrent episode, mild degree F33.0 and Generalized anxiety disorder F41.1 [facility] [id number] [place] [phone] Jan, [facility] [address] [facility] [id number] [address] [place] [phone] Jan, Generalized anxiety disorder F41.1 and Major depressive disorder, recurrent episode, mild degree F33.0 [facility] [id number] [place] [id number] Dec, Primary osteoarthritis invol ving multiple joints M15.0 [facility] [address] [facility] [id number] [address] [place] [id number] Dec, Generalized anxiety disorder F41.1 [facility] [address] [facility] [id number] [address] [place] [phone] Dec, [facility] [id number] [place] [id number] Dec, Major depressive disorder, r ecurrent episode, mild degree F33.0 and Generalized anxiety disorder F41.1 [facility] [id number] [place] [id number] Dec, Generalized anxiety disorder F41.1 and Major depressive disorder, recurrent episode, mild degree F33.0 [place] [id number] [place] [id number] November, Mild major depression F32.0 and Primary osteoarthritis involving multiple joints M15.0 [place] [id number] [place] [phone] November, Major depressive disorder, r ecurrent episode, mild degree F33.0 and Generalized anxiety disorder F41.1 [place] [id number] [place] [id number] November, Primary osteoarthritis invol ving multiple joints M15.0 ; Essential hypertension I10 ; Prediabetes R73.09 ; Mixed hyperlipidemia E78.2 ; Chronic prescription benzodiazepine use Z79.899 ; Chronic prescription opiate use Z79.899 ; Tobacco use Z72.0 ; Bilateral carpal tunnel syndrome G56.03 and Body mass index (bmi) 50-59.9 , adult Z68.43 [place] [id number] [place] [id number] November, Primary osteoarthritis invol ving multiple joints M15.0 and Mild major depression F32.0 [place] [id number] [place] [phone] Oct, [place] [id number] [place] [phone] Oct, Primary osteoarthritis invol ving multiple joints M15.0 ; Essential hypertension I10 ; Prediabetes R73.09 ; Chronic prescription benzodiazepine use Z79.899 ; Chronic prescription opiate use Z79.899 ; Tobacco use Z72.0 ; Mixed hyperlipidemia E78.2 ; Bilateral carpal tunnel syndrome G56.03 ; Body mass index (bmi) 50-59.9 , adult Z68.43 and Encounter for immunization Z23 [place] [id number] [place] [phone] Oct, Major depressive disorder, r ecurrent episode, mild degree F33.0 and Generalized anxiety disorder F41.1 [facility] [address] [id number] [address] [place] [phone] Oct, [facility] [address] [id number] [address] [place] [phone] Oct, [facility] [address] [id number] [address] [place] [phone] Sep, Mild major depression F32.0 [facility] [address] [id number] [address] [place] [phone] Sep, [facility] [address] [id number] [address] [place] [phone] Sep, Mild major depression F32.0 and Generalized anxiety disorder F41.1 [facility] [address] [facility] [id number] [address] [place] [id number] Sep, Paresthesia of both hands R2 0.2 and Cervical radiculopathy M54.12 [facility] [address] [id number] [address] [place] [phone] Sep, [facility] [address] [facility] [id number] [address] [place] [phone] Sep, [facility] [address] [facility] [id number] [address] [place] [phone] Aug, Paresthesia of both hands R2 0.2 and Neck pain M54.2 [facility] [address] [id number] [address] [place] [phone] Aug, [facility] [address] [id number] [address] [place] [phone] Jul, Neck pain M54.2 and Paresthe eddie of both hands R20.2 [facility] [address] [facility] [id number] [address] [place] [id number] Jul, Proteinuria, unspecified typ e R80.9 [facility] [address] [facility] [id number] [address] [place] [phone] Jul, Proteinuria, unspecified typ e R80.9 [facility] [id number] [place] [phone] Jul, [place] [address] [facility] [id number] [address] [place] [phone] Jul, Other specified transient ce rebral ischemias G45.8 [facility] [address] [facility] [id number] [address] [place] [phone] Jun, Diastolic dysfunction I51.9 [place] [address] [facility] [id number] [place] [phone] Jun, Diastolic dysfunction I51.9 [place] [id number] [place] [phone] Jun, Major depressive disorder, s david episode, unspecified F32.9 and Anxiety disorder, unspecified F41.9 [place] [address] [facility] [id number] [address] [place] [phone] Jun, [place] [id number] [place] [phone] Jun, [place] [id number] [place] [phone] May, Moderate major depression F3 2.1 and Generalized anxiety disorder F41.1 [place] [id number] [place] [id number] May, Major depressive disorder, s david episode, unspecified F32.9 and Anxiety disorder, unspecified F41.9 [place] [id number] [place] [phone] May, [place] [id number] [place] [phone] May, Liver enzyme elevation R74.8 [place] [address] [facility] [id number] [address] [place] [id number] 14 May, 2016 Liver enzyme elevation R74.8 [facility] [address] [facility] [id number] [address] [place] [id number] 10 May, 2016 Shortness of breath on exert ion R06.02 ; Essential hypertension I10 ; Mixed hyperlipidemia E78.2 and Tobacco use Z72.0 [facility] [address] [facility] [id number] [address] [place] [phone] May, [facility] [address] [facility] [id number] [address] [place] [phone] May, [facility] [address] [facility] [id number] [phone] Apr, Anxiety F41.9 and Depression F32.9 [facility] [id number] [place] [address] Apr, [facility] [id number] [address] [place] [phone] Apr, [facility] [id number] [place] [id number] Mar, Depression F32.9 and Anxiety F41.9 [facility] [id number] [place] [phone] 08 Mar, 2016 Anxiety F41.9 and Depression F32.9 [facility] [address] [place] [phone] Mar, Well woman exam (no gynecolo gical exam) Z00.00 [facility] [address] [facility] [id number] [address] [place] [phone] Mar, [facility] [address] [facility] [id number] [address] [place] [phone] Mar, [facility] [address] [id number] [address] [place] [id number] Feb, Dental caries K02.9 [facility] [id number] [place] [phone] Feb, [facility] [address] [id number] [address] [place] [phone] Feb, Anxiety F41.9 and Depression F32.9 [facility] [address] [id number] [address] [place] [id number] Feb, Dental examination Z01.20 [facility] [address] [id number] [address] [place] [phone] Feb, [facility] [address] [id number] [address] [place] [phone] Feb, [facility] [address] [id number] [address] [place] [id number] Feb, Anxiety F41.9 and Depression F32.9 [facility] [address] [id number] [address] [place] [id number] Jan, Severe episode of recurrent major depressive disorder, without psychotic features F33.2 and Anxiety disorder, unspecified F41.9 [facility] [address] [id number] [address] [place] [phone] Jan, [facility] [address] [facility] [id number] [address] [place] [phone] Dec, [facility] [address] [id number] [address] [place] [phone] Dec, Anxiety F41.9 and Depression F32.9 [facility] [address] [id number] [address] [place] [phone] Dec, Other specified transient ce rebral ischemias G45.8 and Nocturnal hypoxia G47.34 [facility] [address] [id number] [address] [place] [phone] Dec, [facility] [address] [facility] [id number] [address] [place] [phone] Dec, Other specified transient ce rebral ischemias G45.8 [place] [address] [phone] 16 Dec, 2015 Severe episode of recurrent major depressive disorder, without psychotic features F33.2 and Anxiety disorder, unspecified F41.9 [place] [address] [id number] 13 Dec, 2015 [place] [address] [address] 13 Dec, 2015 Anxiety F41.9 and Depression F32.9 [place] [address] [id number] 07 Dec, 2015 Anxiety F41.9 and Depression F32.9 [place] [address] [id number] Dec, [place] [address] [id number] November, Anxiety F41.9 and Depression F32.9 [place] [address] [phone] November, Severe episode of recurrent major depressive disorder, without psychotic features F33.2 [place] [address] [address] November, Mixed hyperlipidemia E78.2 [place] [address] [address] November, Anxiety F41.9 and Depression F32.9 [place] [address] [address] 05 Nov, 2015 Prediabetes R73.09 ; Essenti al hypertension I10 ; Anxiety F41.9 ; Depression F32.9 ; Gastroesophageal reflux disease, esophagitis presence not specified K21.9 ; Primary osteoarthritis involving multiple joints M15.0 ; History of renal cell cancer Z85.528 ; Postnasal drip R09.82 ; Allergic rhinitis, unspecified J30.9 and Tobacco use Z72.0 [place] [address] [facility] [id number] [address] [place] [id number] 11 Oct, 2015 Anxiety F41.9 and Depression F32.9 [facility] [address] [place] [id number] [address] [place] [id number] 07 Oct, 2015 [facility] [address] [place] [id number] [address] [place] [id number] Oct, [facility] [address] [place] [id number] [place] [phone] 14 Sep, 2015 Splenic artery aneurysm I72. 8 [facility] [address] [place] [id number] [place] [phone] 10 Sep, 2015 Depression F32.9 ; Anxiety F 41.9 ; Chronic prescription benzodiazepine use Z79.899 and Splenic artery aneurysm I72.8 [place] [address] [address] Sep, Depression F32.9 and Anxiety F41.9 [facility] [address] [place] [id number] [address] [place] [phone] Sep, [facility] [address] [phone] 18 Aug, 2015 Dehydration E86.0 ; Diarrhea R19.7 ; Nausea R11.0 and Generalized abdominal pain R10.84 [place] [address] [place] [id number] [address] [place] [address] [id number] Aug, [facility] [address] [id number] [address] [place] [phone] Jul, Depression F32.9 [id number] [id number] [address] [place] [phone] Jul, [facility] [id number] [place] [phone] Jul, Anxiety F41.9 and Depression F32.9 [facility] [id number] [place] [phone] Jul, [facility] [address] [id number] [address] [place] [phone] Jun, Epigastric pain R10.13 [facility] [address] [id number] [address] [place] [phone] Jun, [facility] [address] [facility] [id number] [address] [place] [phone] Jun, [facility] [address] [id number] [address] [place] [id number] May, [facility] [address] [id number] [address] [place] [phone] May, [facility] [address] [facility] [id number] [address] [place] [phone] Apr, [facility] [address] [facility] [id number] [address] [place] [phone] Mar, Anxiety state, unspecified 3 00.00 ; Depression 311 ; Prediabetes 790.29 ; Generalized osteoarthrosis, involving multiple sites 715.09 and Hypertension 401.9 [facility] [address] [facility] [id number] [address] [place] [phone] Mar, [facility] [address] [facility] [id number] [address] [place] [phone] Feb, [facility] [address] [facility] [id number] [address] [place] [phone] Jan, [facility] [address] [id number] [address] [place] [phone] Jan, [facility] [address] [facility] [id number] [address] [place] [phone] Jan, Generalized osteoarthrosis, involving multiple sites 715.09 [facility] [address] [facility] [id number] [address] [place] [phone] Jan, Hx of renal cell cancer V10. 52 [facility] [address] [id number] [address] [place] [phone] Dec, Generalized osteoarthrosis, involving multiple sites 715.09 and Hx of renal cell cancer V10.52 [facility] [address] [id number] [address] [place] [phone] Dec, [facility] [address] [id number] [address] [place] [id number] Dec, [facility] [address] [id number] [address] [place] [phone] November, [facility] [address] [id number] [address] [place] [phone] Oct, [facility] [address] [id number] [address] [place] [phone] Oct, [facility] [address] [id number] [address] [place] [phone] Sep, [facility] [address] [id number] [address] [place] [phone] Sep, [facility] [address] [id number] [address] [place] [phone] Sep, [facility] [address] [id number] [address] [place] [phone] Sep, [facility] [address] [id number] [address] [place] [phone] Aug, [facility] [address] [id number] [address] [place] [phone] Aug, IMMUNIZATIONS No Known Immunizations SOCIAL HISTORY Never Assessed REASON FOR VISIT OLEGARIO Platt/Jodi GASTELUM PLAN OF CARE Activity Details Follow Up 2 Months Reason:OLEGARIO platt/shirin VITAL SIGNS Height 62 in 2017-07-01 Weight 281.9 lbs 2017-07-01 Heart Rate 80 bpm 2017-07-01 Respiratory Rate 20 2017-07-01 BMI 51.55 kg/m2 2017-07-01 Blood pressure systolic 110 mmHg 2017-07-01 Blood pressure diastolic 78 mmHg 2017-07-01 MEDICATIONS Medication Instructions Dosage Frequency Start Date End Date Duration S fabrice Atorvastatin Calcium 40 mg Orally Once a day 1 tablet 24h Active Omeprazole 20 mg Orally Once a day 2 capsules 24h Jun, 30 day(s) Active Remeron 15 mg Orally Once a day at bedtime 1 tablet at bedtime Active Wellbutrin XL 150 MG Orally Once a day (along wit h 300 mg tablet to equal 450 mg daily 1 tablet in the morning A ctive Tizanidine HCl 2 MG Orally every 8 hrs 1 tablet as needed 8h 30 Active Diazepam 5 mg Orally Once a day as needed for anxiety 0.5 tablet Active BuPROPion HCl ER (XL) 300 MG Orally Once a day in the mornin g 1 tablet in the morning Active Cymbalta 30 MG Orally Once a day 3 capsules 24h Active Atenolol 50 mg Orally Once a day 1 tablet 24h Active Hydrocodone-Acetaminophen 5-325 MG Orally 2 times a day as n eeded for pain take 1 tablet May, 28 days Active Potassium Chloride ER 20 MEQ Orally Once a day 1 tablet with food 24h 30 Active Furosemide 20 mg Orally Once a day 1 tablet 24h 30 Active Omeprazole 40 MG TAKE ONE CAPSULE BY MOUTH ONCE DAILY 30 Active RESULTS No Results PROCEDURES No [...]
--- OUTSIDE RECORDS SUMMARY | 2020-02-08 07:25 | XMS REPORT ---
Author Author Emilee MAY Organization [facility] Address [address] [place] [address] Care Team Providers Care Sports Agent Name Role Phone LALOSTEPHANI CONSTANTINOY Unavailable PROBLEMS Type Condition ICD9-CM Code GRE56-DJ Code Onset Dates Condition S tatus SNOMED Code Problem Mixed hyperlipidemia E78.2 Active 019706627 Problem Chronic prescription opiate use Z79.899 Active 778553903 Problem Fatty liver K76.0 Active 62817019 7 Problem Tobacco use Z72.0 Active 36054280 0 Problem Obstructive sleep apnea G47.33 Active 82222514 Problem Allergic rhinitis, unspecified J30.9 Active 52315337 Problem Diastolic dysfunction I51.9 Active 5680668 Problem History of renal cell cancer Z85.528 A ctive 363124008 Problem Excoriation, neurotic L98.1 Active 87905762 Problem History of tobacco use Z87.891 Active 3765587124606 Problem Liver mass R16.0 Active 642201428 Problem Prediabetes R73.09 Active 2827701 Problem Essential hypertension I10 Active 64561142 Problem Body mass index (bmi) 50-59.9 , adult Z68.43 Active 886481529 Problem Paresthesia of both hands R20.2 Acti ve 385014683 Problem Generalized anxiety disorder F41.1 A ctive 97294115 Problem Major depressive disorder, recurrent episode, mild degree F33.0 Active 274804450 Problem 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 Active 274267816 Problem Pulmonary emphysema, unspecified emphysema type J4 3.9 Active 31237120 Problem Splenic artery aneurysm I72.8 Active 24746825 Problem Restrictive lung disease J98.4 Activ e 77077185 Problem Bilateral carpal tunnel syndrome G56.03 Active 01049854 Problem Chronic prescription benzodiazepine use Z79.899 Active 610358897 Problem Primary osteoarthritis involving multiple joints M 15.0 Active 911305550 Problem Isolated proteinuria without specific morphologic lesion R80.0 Active 94223060 ALLERGIES No Information ENCOUNTERS Encounter Location Date Diagnosis [facility] [id number] [place] [id number] November, [facility] [id number] [place] [id number] November, [facility] [address] [id number] November, [facility] [id number] [place] [phone] Oct, Generalized anxiety disorder F41.1 [facility] [address] [id number] Oct, [facility] [address] [id number] Oct, Influenza-like illness R69 [facility] [id number] [place] [phone] Sep, Influenza-like illness R69 [facility] [id number] [place] [phone] Sep, Generalized anxiety disorder F41.1 [facility] [id number] [place] [id number] Sep, [facility] [id number] [place] [id number] Aug, [facility] [id number] [place] [phone] Aug, [facility] [address] [id number] Aug, Generalized anxiety disorder F41.1 [facility] [id number] [place] [id number] Aug, Influenza-like illness R69 a nd BMI 50.0-59.9, adult Z68.43 [facility] [address] [facility] [id number] [address] [place] [id number] Jul, Fatty liver K76.0 ; Restrict jean-paul lung disease J98.4 ; Diastolic dysfunction I51.9 ; Body mass index (bmi) 50-59.9 , adult Z68.43 and Chronic prescription opiate use Z79.899 [facility] [address] [facility] [id number] [address] [place] [id number] Jul, Generalized anxiety disorder F41.1 [facility] [address] [facility] [id number] [address] [place] [id number] Jul, Generalized anxiety disorder F41.1 [place] [id number] [place] [id number] Jul, Primary osteoarthritis invol ving multiple joints M15.0 [facility] [address] [id number] [address] [place] [id number] Jun, Generalized anxiety disorder F41.1 [facility] [id number] [address] [place] [phone] Jun, [facility] [id number] [place] [id number] Jun, Mixed hyperlipidemia E78.2 [facility] [address] [facility] [id number] [address] [place] [id number] Jun, Generalized anxiety disorder F41.1 [facility] [id number] [place] [id number] Jun, Generalized anxiety disorder F41.1 ; Major depressive disorder, recurrent episode, mild degree F33.0 and Habitual self-excoriation F42.4 [facility] [id number] [place] [id number] May, [facility] [address] [facility] [id number] [address] [place] [id number] May, Generalized anxiety disorder F41.1 [facility] [address] [facility] [id number] [address] [place] [id number] May, Generalized anxiety disorder F41.1 [facility] [address] [id number] [address] [place] [id number] May, Primary osteoarthritis invol ving multiple joints M15.0 [facility] [address] [id number] [address] [place] [id number] Apr, Major depressive disorder, r ecurrent episode, mild degree F33.0 ; Generalized anxiety disorder F41.1 and Excoriation, neurotic L98.1 [facility] [address] [id number] [address] [place] [id number] Apr, Primary osteoarthritis invol ving multiple joints M15.0 [facility] [address] [id number] [address] [place] [id number] Apr, Essential hypertension I10 a nd Mixed hyperlipidemia E78.2 [facility] [address] [id number] [address] [place] [id number] Apr, Generalized anxiety disorder F41.1 ; Major depressive disorder, recurrent episode, mild degree F33.0 and Habitual self-excoriation F42.4 [facility] [address] [id number] [address] [place] [id number] Mar, Generalized anxiety disorder F41.1 ; Major depressive disorder, recurrent episode, mild degree F33.0 and Habitual self-excoriation F42.4 [facility] [address] [id number] [address] [place] [phone] Mar, Skin lesion L98.9 [facility] [address] [id number] [address] [place] [phone] Mar, Primary osteoarthritis invol ving multiple joints M15.0 [facility] [address] [id number] [address] [place] [phone] Mar, [facility] [address] [id number] [address] [place] [id number] Mar, [facility] [id number] [place] [id number] Feb, Major depressive disorder, r ecurrent episode, mild degree F33.0 ; Generalized anxiety disorder F41.1 and Excoriation, neurotic L98.1 [place] [id number] [place] [id number] Feb, Generalized anxiety disorder F41.1 [place] [id number] [place] [id number] Feb, Primary osteoarthritis invol ving multiple joints M15.0 [place] [id number] [place] [phone] Jan, [place] [address] [id number] Jan, Essential hypertension I10 ; Splenic artery aneurysm I72.8 ; Liver mass R16.0 ; Restrictive lung disease J98.4 ; Primary osteoarthritis involving multiple joints M15.0 ; Mixed hyperlipidemia E78.2 ; Bilateral carpal tunnel syndrome G56.03 ; Body mass index (bmi) 50-59.9 , adult Z68.43 and History of tobacco use Z87.891 [place] [address] [place] [id number] Jan, Major depressive disorder, r ecurrent episode, mild degree F33.0 and Generalized anxiety disorder F41.1 [place] [address] [place] [id number] Jan, [place] [id number] [place] [id number] Jan, Generalized anxiety disorder F41.1 and Major depressive disorder, recurrent episode, mild degree F33.0 [place] [id number] [place] [phone] Dec, Primary osteoarthritis invol ving multiple joints M15.0 [place] [id number] [place] [phone] Dec, Generalized anxiety disorder F41.1 [place] [address] [facility] [id number] [address] [place] [id number] Dec, [facility] [address] [facility] [id number] [address] [place] [id number] Dec, Major depressive disorder, r ecurrent episode, mild degree F33.0 and Generalized anxiety disorder F41.1 [facility] [address] [facility] [id number] [address] [place] [id number] Dec, Generalized anxiety disorder F41.1 and Major depressive disorder, recurrent episode, mild degree F33.0 [place] [address] [facility] [id number] [address] [place] [id number] November, Mild major depression F32.0 and Primary osteoarthritis involving multiple joints M15.0 [place] [id number] [place] [id number] November, Major depressive disorder, r ecurrent episode, mild degree F33.0 and Generalized anxiety disorder F41.1 [place] [address] [facility] [id number] [address] [place] [id number] November, Primary osteoarthritis invol ving multiple joints M15.0 ; Essential hypertension I10 ; Prediabetes R73.09 ; Mixed hyperlipidemia E78.2 ; Chronic prescription benzodiazepine use Z79.899 ; Chronic prescription opiate use Z79.899 ; Tobacco use Z72.0 ; Bilateral carpal tunnel syndrome G56.03 and Body mass index (bmi) 50-59.9 , adult Z68.43 [place] [id number] [place] [id number] November, Primary osteoarthritis invol ving multiple joints M15.0 and Mild major depression F32.0 [place] [address] [facility] [id number] [address] [place] [id number] Oct, [place] [address] [facility] [id number] [address] [place] [id number] Oct, Primary osteoarthritis invol ving multiple joints M15.0 ; Essential hypertension I10 ; Prediabetes R73.09 ; Chronic prescription benzodiazepine use Z79.899 ; Chronic prescription opiate use Z79.899 ; Tobacco use Z72.0 ; Mixed hyperlipidemia E78.2 ; Bilateral carpal tunnel syndrome G56.03 ; Body mass index (bmi) 50-59.9 , adult Z68.43 and Encounter for immunization Z23 [facility] [address] [facility] [id number] [address] [place] [id number] 17 Oct, 2016 Major depressive disorder, r ecurrent episode, mild degree F33.0 and Generalized anxiety disorder F41.1 [place] [address] [facility] [id number] [address] [place] [id number] Oct, [place] [address] [facility] [id number] [address] [place] [id number] Oct, [place] [address] [facility] [id number] [address] [place] [id number] Sep, Mild major depression F32.0 [place] [address] [facility] [id number] [address] [place] [id number] Sep, [facility] [address] [facility] [id number] [address] [place] [id number] Sep, Mild major depression F32.0 and Generalized anxiety disorder F41.1 [place] [address] [facility] [id number] [address] [place] [id number] Sep, Paresthesia of both hands R2 0.2 and Cervical radiculopathy M54.12 [facility] [address] [facility] [id number] [address] [place] [id number] Sep, [place] [address] [facility] [id number] [address] [place] [id number] Sep, [place] [address] [facility] [id number] [address] [place] [id number] Aug, Paresthesia of both hands R2 0.2 and Neck pain M54.2 [place] [address] [facility] [id number] [address] [place] [phone] Aug, [facility] [address] [facility] [id number] [address] [place] [id number] Jul, Neck pain M54.2 and Paresthe eddie of both hands R20.2 [facility] [address] [facility] [id number] [address] [place] [id number] Jul, Proteinuria, unspecified typ e R80.9 [facility] [address] [facility] [id number] [address] [place] [id number] Jul, Proteinuria, unspecified typ e R80.9 [facility] [address] [facility] [id number] [address] [place] [id number] Jul, [place] [address] [facility] [id number] [address] [place] [id number] Jul, Other specified transient ce rebral ischemias G45.8 [facility] [address] [facility] [id number] [address] [place] [id number] Jun, Diastolic dysfunction I51.9 [facility] [address] [facility] [id number] [address] [place] [id number] Jun, Diastolic dysfunction I51.9 [place] [id number] [place] [id number] Jun, Major depressive disorder, s david episode, unspecified F32.9 and Anxiety disorder, unspecified F41.9 [place] [address] [facility] [id number] [address] [place] [id number] Jun, [facility] [address] [facility] [id number] [address] [place] [id number] Jun, [place] [address] [facility] [id number] [address] [place] [id number] May, Moderate major depression F3 2.1 and Generalized anxiety disorder F41.1 [place] [address] [facility] [id number] [address] [place] [id number] May, Major depressive disorder, s david episode, unspecified F32.9 and Anxiety disorder, unspecified F41.9 [facility] [address] [facility] [id number] [address] [place] [id number] 15 May, 2016 [facility] [address] [facility] [id number] [address] [place] [id number] 14 May, 2016 Liver enzyme elevation R74.8 [facility] [id number] [place] [id number] 14 May, 2016 Liver enzyme elevation R74.8 [facility] [id number] [place] [id number] 10 May, 2016 Shortness of breath on exert ion R06.02 ; Essential hypertension I10 ; Mixed hyperlipidemia E78.2 and Tobacco use Z72.0 [place] [id number] [place] [id number] 03 May, 2016 [facility] [id number] [place] [phone] May, [facility] [id number] [place] [id number] Apr, Anxiety F41.9 and Depression F32.9 [facility] [id number] [place] [phone] Apr, [facility] [id number] [place] [phone] Apr, [facility] [id number] [place] [phone] Mar, Depression F32.9 and Anxiety F41.9 [place] [id number] [place] [id number] 08 Mar, 2016 Anxiety F41.9 and Depression F32.9 [facility] [id number] [place] [id number] 06 Mar, 2016 Well woman exam (no gynecolo gical exam) Z00.00 [facility] [address] [id number] [address] [place] [id number] Mar, [facility] [address] [id number] [address] [place] [id number] Mar, [facility] [address] [id number] [address] [place] [id number] Feb, Dental caries K02.9 [facility] [address] [id number] [address] [place] [id number] Feb, [facility] [address] [id number] [address] [place] [id number] Feb, Anxiety F41.9 and Depression F32.9 [facility] [address] [id number] [address] [place] [id number] Feb, Dental examination Z01.20 [facility] [address] [id number] [address] [place] [phone] Feb, [facility] [address] [id number] [address] [place] [phone] Feb, [facility] [address] [id number] [address] [place] [id number] Feb, Anxiety F41.9 and Depression F32.9 [facility] [address] [id number] [address] [place] [id number] Jan, Severe episode of recurrent major depressive disorder, without psychotic features F33.2 and Anxiety disorder, unspecified F41.9 [facility] [address] [id number] [address] [place] [phone] Jan, [facility] [address] [id number] [address] [place] [id number] Dec, [facility] [address] [id number] [address] [place] [id number] Dec, Anxiety F41.9 and Depression F32.9 [facility] [address] [id number] [address] [place] [id number] 24 Dec, 2015 Other specified transient ce rebral ischemias G45.8 and Nocturnal hypoxia G47.34 [facility] [address] [id number] [address] [place] [id number] 18 Dec, 2015 [facility] [address] [id number] [address] [place] [id number] 17 Dec, 2015 Other specified transient ce rebral ischemias G45.8 [facility] [address] [id number] [address] [place] [id number] 16 Dec, 2015 Severe episode of recurrent major depressive disorder, without psychotic features F33.2 and Anxiety disorder, unspecified F41.9 [place] [address] [id number] [address] [place] [phone] Dec, [place] [address] [facility] [id number] [address] [place] [id number] Dec, Anxiety F41.9 and Depression F32.9 [place] [address] [id number] [address] [place] [id number] 07 Dec, 2015 Anxiety F41.9 and Depression F32.9 [place] [address] [id number] [address] [place] [phone] Dec, [facility] [address] [id number] [address] [place] [phone] November, Anxiety F41.9 and Depression F32.9 [facility] [address] [id number] [address] [place] [phone] November, Severe episode of recurrent major depressive disorder, without psychotic features F33.2 [place] [address] [id number] [address] [place] [id number] November, Mixed hyperlipidemia E78.2 [facility] [address] [id number] [address] [place] [id number] November, Anxiety F41.9 and Depression F32.9 [place] [address] [id number] 05 Nov, 2015 Prediabetes R73.09 ; Essenti al hypertension I10 ; Anxiety F41.9 ; Depression F32.9 ; Gastroesophageal reflux disease, esophagitis presence not specified K21.9 ; Primary osteoarthritis involving multiple joints M15.0 ; History of renal cell cancer Z85.528 ; Postnasal drip R09.82 ; Allergic rhinitis, unspecified J30.9 and Tobacco use Z72.0 [place] [address] [id number] Oct, Anxiety F41.9 and Depression F32.9 [place] [address] [id number] Oct, [place] [address] [id number] Oct, [place] [address] [id number] 14 Sep, 2015 Splenic artery aneurysm I72. 8 [place] [address] [id number] 10 Sep, 2015 Depression F32.9 ; Anxiety F 41.9 ; Chronic prescription benzodiazepine use Z79.899 and Splenic artery aneurysm I72.8 [place] [address] [id number] 10 Sep, 2015 Depression F32.9 and Anxiety F41.9 [place] [address] [id number] Sep, [place] [address] [id number] 18 Aug, 2015 Dehydration E86.0 ; Diarrhea R19.7 ; Nausea R11.0 and Generalized abdominal pain R10.84 [place] [address] [id number] 03 Aug, 2015 [place] [address] [id number] Jul, Depression F32.9 [facility] [address] [id number] [address] [place] [id number] Jul, [facility] [address] [facility] [id number] [address] [place] [id number] Jul, Anxiety F41.9 and Depression F32.9 [facility] [address] [facility] [id number] [address] [place] [id number] Jul, [facility] [address] [id number] [address] [place] [id number] Jun, Epigastric pain R10.13 [facility] [address] [id number] [address] [place] [id number] Jun, [facility] [address] [facility] [id number] [address] [place] [id number] Jun, [facility] [address] [facility] [id number] [address] [place] [id number] May, [facility] [address] [facility] [id number] [address] [place] [id number] May, [facility] [address] [facility] [id number] [address] [place] [id number] Apr, [facility] [address] [facility] [id number] [address] [place] [id number] Mar, Anxiety state, unspecified 3 00.00 ; Depression 311 ; Prediabetes 790.29 ; Generalized osteoarthrosis, involving multiple sites 715.09 and Hypertension 401.9 [facility] [address] [id number] [address] [place] [id number] Mar, [facility] [address] [facility] [id number] [address] [place] [id number] Feb, [facility] [facility] [address] [facility] [id number] [address] [place] [phone] Jan, [facility] [address] [id number] [address] [place] [phone] 09 Jan, 2015 [facility] [address] [id number] [address] [place] [phone] 08 Jan, 2015 Generalized osteoarthrosis, involving multiple sites 715.09 [facility] [address] [id number] [address] [place] [phone] 07 Jan, 2015 Hx of renal cell cancer V10. 52 [facility] [address] [id number] [address] [place] [phone] Dec, Generalized osteoarthrosis, involving multiple sites 715.09 and Hx of renal cell cancer V10.52 [facility] [address] [id number] [address] [place] [phone] Dec, [facility] [address] [id number] [address] [place] [phone] Dec, [facility] [address] [id number] [address] [place] [phone] November, [facility] [address] [id number] [address] [place] [phone] Oct, [facility] [address] [id number] [address] [place] [phone] Oct, [facility] [address] [id number] [address] [place] [phone] Sep, [facility] [address] [id number] [address] [place] [phone] Sep, [facility] [address] [id number] [address] [place] [phone] Sep, [facility] [address] [id number] [address] [place] [phone] Sep, [facility] [address] [id number] [address] [place] [phone] Aug, [facility] [address] [id number] [address] [place] [phone] Aug, IMMUNIZATIONS No Known Immunizations SOCIAL HISTORY Never Assessed REASON FOR VISIT Lab (walk-in) PLAN OF CARE VITAL SIGNS MEDICATIONS Unknown Medications RESULTS Name Result Date Reference Range CBC 2017-04-30 WBC 7.0 3.4-10.8 RBC 4.33 3.77-5.28 Hemoglobin 12.4 11.1-15.9 Hematocrit 38.0 34.0-46.6 MCV 88 79-97 MCH 28.6 26.6-33.0 MCHC 32.6 31.5-35.7 RDW 14.1 12.3-15.4 Platelets 191 150-379 Neutrophils 40 Not Estab. Lymphs 49 Not Estab. Monocytes 8 Not Estab. Eos 3 Not Estab. Basos 0 Not Estab. Neutrophils (Absolute) 2.8 1.4-7.0 Lymphs (Absolute) 3.4 0.7-3.1 Monocytes(Absolute) 0.6 0.1-0.9 Eos (Absolute) 0.2 0.0-0.4 Baso (Absolute) 0.0 0.0-0.2 Immature Granulocytes 0 Not Estab. Immature Grans (Abs) 0.0 0.0-0.1 LIPID PANEL 2017-04-30 Cholesterol, Total 162 100-199 Triglycerides 232 0-149 HDL Cholesterol 46 >39 VLDL Cholesterol Fazal 46 5-40 LDL Cholesterol Calc 70 0-99 Comment: CMP 2017-04-30 Glucose, Serum 80 65-99 BUN 18 8-27 Creatinine, Serum 0.92 0.57-1.00 eGFR If NonAfricn Am 68 >59 eGFR If Africn Am 78 >59 BUN/Creatinine Ratio 20 12-28 Sodium, Serum 144 134-144 Potassium, Serum 4.3 3.5-5.2 Chloride, Serum 103 96-106 Carbon Dioxide, Total 25 18-29 Calcium, Serum 9.4 8.7-10.3 Protein, Total, Serum 6.9 6.0-8.5 Albumin, Serum 4.7 3.6-4.8 Globulin, Total 2.2 1.5-4.5 A/G Ratio 2.1 1.2-2.2 Bilirubin, Total 0.4 0.0-1.2 Alkaline Phosphatase, S 137 39-117 AST (SGOT) 30 0-40 ALT (SGPT) 43 0-32 PROCEDURES Procedure Date Ordered Result Body Site [facility] Apr 30, 2017 VENTERI, ROUTINE* Apr 30, 2017 INSTRUCTIONS MEDICATIONS ADMINISTERED No Known Medications [...]
--- OUTSIDE RECORDS SUMMARY | 2020-02-08 07:25 | XMS REPORT ---
Author Author Emilee MAY Organization [facility] Address [address] [place] [address] Care Team Providers Care Roll Icer Machine Name Role Phone LALOJEZ CONSTANTINOHANY Unavailable PROBLEMS Type Condition ICD9-CM Code [id number]-QI Code Onset Dates Condition S tatus SNOMED Code Problem Allergic rhinitis, unspecified J30.9 Active 54779029 Problem Diastolic dysfunction I51.9 Active 5987301 Problem History of renal cell cancer Z85.528 A ctive 791185362 Problem Excoriation, neurotic L98.1 Active 06531126 Problem Prediabetes R73.09 Active 1215763 Problem History of tobacco use Z87.891 Active 2864775040175 Problem Essential hypertension I10 Active 39009158 Problem Obstructive sleep apnea G47.33 Active 16081943 Problem Body mass index (bmi) 50-59.9 , adult Z68.43 Active 670501547 Problem Paresthesia of both hands R20.2 Acti ve 869081487 Problem Generalized anxiety disorder F41.1 A ctive 51467978 Problem Major depressive disorder, recurrent episode, mild degree F33.0 Active 479771377 Problem Restrictive lung disease J98.4 Activ e 29379780 Problem 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 Active 491104896 Problem Liver mass R16.0 Active 472353606 Problem Splenic artery aneurysm I72.8 Active 05877944 Problem Bilateral carpal tunnel syndrome G56.03 Active 73901809 Problem Chronic prescription benzodiazepine use Z79.899 Active 277761632 Problem Mixed hyperlipidemia E78.2 Active 462724573 Problem Primary osteoarthritis involving multiple joints M 15.0 Active 865975635 Problem Chronic prescription opiate use Z79.899 Active 819704563 Problem Fatty liver K76.0 Active 99721520 7 Problem Isolated proteinuria without specific morphologic lesion R80.0 Active 44760305 Problem Tobacco use Z72.0 Active 11780945 0 ALLERGIES Unknown Allergies SOCIAL HISTORY No smoking Hx information available PLAN OF CARE VITAL SIGNS MEDICATIONS Unknown Medications RESULTS No Results PROCEDURES No Known procedures IMMUNIZATIONS No Known Immunizations
--- OUTSIDE RECORDS SUMMARY | 2020-02-08 07:25 | XMS REPORT ---
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 Name Role Phone LALOSTEPHANI CONSTANTINOY Unavailable PROBLEMS Type Condition ICD9-CM Code WBD90-VS Code Onset Dates Condition S tatus SNOMED Code Problem Mixed hyperlipidemia E78.2 Active 263602183 Problem Chronic prescription opiate use Z79.899 Active 709623264 Problem Fatty liver K76.0 Active 89550070 7 Problem Tobacco use Z72.0 Active 75124058 0 Problem Obstructive sleep apnea G47.33 Active 28965258 Problem Allergic rhinitis, unspecified J30.9 Active 10320924 Problem Diastolic dysfunction I51.9 Active 0891237 Problem History of renal cell cancer Z85.528 A ctive 476605048 Problem Excoriation, neurotic L98.1 Active 79913670 Problem History of tobacco use Z87.891 Active 0026300713895 Problem Liver mass R16.0 Active 004677919 Problem Prediabetes R73.09 Active 4974986 Problem Essential hypertension I10 Active 13658316 Problem Body mass index (bmi) 50-59.9 , adult Z68.43 Active 312490972 Problem Paresthesia of both hands R20.2 Acti ve 378577418 Problem Generalized anxiety disorder F41.1 A ctive 37218548 Problem Major depressive disorder, recurrent episode, mild degree F33.0 Active 613961834 Problem 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 Active 979845414 Problem Pulmonary emphysema, unspecified emphysema type J4 3.9 Active 33159914 Problem Splenic artery aneurysm I72.8 Active 04902118 Problem Restrictive lung disease J98.4 Activ e 03619721 Problem Bilateral carpal tunnel syndrome G56.03 Active 37344575 Problem Chronic prescription benzodiazepine use Z79.899 Active 847303496 Problem Primary osteoarthritis involving multiple joints M 15.0 Active 321888993 Problem Isolated proteinuria without specific morphologic lesion R80.0 Active 52686730 ALLERGIES No Information ENCOUNTERS Encounter Location Date Diagnosis [facility] [id number] [place] [id number] Sep, Influenza-like illness R69 [facility] [id number] [place] [id number] Sep, Generalized anxiety disorder F41.1 [facility] [address] [address] Sep, [facility] [address] [address] Aug, [facility] [address] [address] Aug, [facility] [address] [address] Aug, Generalized anxiety disorder F41.1 [facility] [id number] [place] [phone] Aug, Influenza-like illness R69 a nd BMI 50.0-59.9, adult Z68.43 [facility] [id number] [place] [address] Jul, Fatty liver K76.0 ; Restrict jean-paul lung disease J98.4 ; Diastolic dysfunction I51.9 ; Body mass index (bmi) 50-59.9 , adult Z68.43 and Chronic prescription opiate use Z79.899 [facility] [id number] [place] [id number] Jul, Generalized anxiety disorder F41.1 [facility] [id number] [place] [id number] Jul, Generalized anxiety disorder F41.1 [facility] [id number] [place] [id number] Jul, Primary osteoarthritis invol ving multiple joints M15.0 [facility] [address] [id number] [address] [place] [phone] Jun, Generalized anxiety disorder F41.1 [facility] [address] [facility] [place] [id number] [address] [place] [id number] Jun, [facility] [address] [facility] [place] [id number] [address] [place] [id number] Jun, Mixed hyperlipidemia E78.2 [facility] [address] [facility] [place] [id number] [address] [place] [phone] Jun, Generalized anxiety disorder F41.1 [facility] [address] [facility] [place] [id number] [address] [place] [id number] Jun, Generalized anxiety disorder F41.1 ; Major depressive disorder, recurrent episode, mild degree F33.0 and Habitual self-excoriation F42.4 [place] [address] [facility] [place] [id number] [address] [place] [id number] May, [facility] [address] [facility] [place] [id number] [address] [place] [id number] May, Generalized anxiety disorder F41.1 [facility] [address] [facility] [place] [id number] [address] [place] [id number] May, Generalized anxiety disorder F41.1 [facility] [address] [facility] [place] [id number] [address] [place] [id number] May, Primary osteoarthritis invol ving multiple joints M15.0 [facility] [address] [id number] [address] [place] [phone] Apr, Major depressive disorder, r ecurrent episode, mild degree F33.0 ; Generalized anxiety disorder F41.1 and Excoriation, neurotic L98.1 [facility] [address] [facility] [place] [id number] [address] [place] [id number] Apr, Primary osteoarthritis invol ving multiple joints M15.0 [facility] [address] [facility] [place] [id number] [address] [place] [id number] Apr, Essential hypertension I10 a nd Mixed hyperlipidemia E78.2 [facility] [address] [id number] [address] [place] [id number] Apr, Generalized anxiety disorder F41.1 ; Major depressive disorder, recurrent episode, mild degree F33.0 and Habitual self-excoriation F42.4 [facility] [address] [id number] [address] [place] [phone] Mar, Generalized anxiety disorder F41.1 ; Major depressive disorder, recurrent episode, mild degree F33.0 and Habitual self-excoriation F42.4 [facility] [address] [id number] [address] [place] [phone] Mar, Skin lesion L98.9 [facility] [address] [id number] [address] [place] [id number] Mar, Primary osteoarthritis invol ving multiple joints M15.0 [facility] [address] [id number] [address] [place] [id number] Mar, [facility] [address] [id number] [address] [place] [phone] Mar, [facility] [address] [id number] [address] [place] [phone] Feb, Major depressive disorder, r ecurrent episode, mild degree F33.0 ; Generalized anxiety disorder F41.1 and Excoriation, neurotic L98.1 [facility] [address] [id number] [address] [place] [phone] Feb, Generalized anxiety disorder F41.1 [facility] [address] [id number] [address] [place] [id number] Feb, Primary osteoarthritis invol ving multiple joints M15.0 [facility] [address] [id number] [address] [place] [id number] Jan, [facility] [address] [id number] [address] [place] [id number] 21 [place], 2017 Essential hypertension I10 ; Splenic artery aneurysm I72.8 ; Liver mass R16.0 ; Restrictive lung disease J98.4 ; Primary osteoarthritis involving multiple joints M15.0 ; Mixed hyperlipidemia E78.2 ; Bilateral carpal tunnel syndrome G56.03 ; Body mass index (bmi) 50-59.9 , adult Z68.43 and History of tobacco use Z87.891 [facility] [address] [id number] [address] [place] [id number] Jan, Major depressive disorder, r ecurrent episode, mild degree F33.0 and Generalized anxiety disorder F41.1 [facility] [address] [id number] [address] [place] [phone] Jan, [facility] [address] [id number] [address] [place] [phone] Jan, Generalized anxiety disorder F41.1 and Major depressive disorder, recurrent episode, mild degree F33.0 [facility] [address] [id number] [address] [place] [id number] Dec, Primary osteoarthritis invol ving multiple joints M15.0 [facility] [address] [id number] [address] [place] [id number] Dec, Generalized anxiety disorder F41.1 [facility] [address] [id number] [address] [place] [id number] Dec, [facility] [address] [id number] [address] [place] [id number] Dec, Major depressive disorder, r ecurrent episode, mild degree F33.0 and Generalized anxiety disorder F41.1 [facility] [address] [id number] [address] [place] [phone] Dec, Generalized anxiety disorder F41.1 and Major depressive disorder, recurrent episode, mild degree F33.0 [facility] [address] [id number] [address] [place] [id number] November, Mild major depression F32.0 and Primary osteoarthritis involving multiple joints M15.0 [facility] [id number] [place] [id number] November, Major depressive disorder, r ecurrent episode, mild degree F33.0 and Generalized anxiety disorder F41.1 [place] [address] [address] November, Primary osteoarthritis invol ving multiple joints M15.0 ; Essential hypertension I10 ; Prediabetes R73.09 ; Mixed hyperlipidemia E78.2 ; Chronic prescription benzodiazepine use Z79.899 ; Chronic prescription opiate use Z79.899 ; Tobacco use Z72.0 ; Bilateral carpal tunnel syndrome G56.03 and Body mass index (bmi) 50-59.9 , adult Z68.[address] [address] November, Primary osteoarthritis invol ving multiple joints M15.0 and Mild major depression F32.[address] [address] Oct, [address] [address] Oct, Primary osteoarthritis invol ving multiple joints M15.0 ; Essential hypertension I10 ; Prediabetes R73.09 ; Chronic prescription benzodiazepine use Z79.899 ; Chronic prescription opiate use Z79.899 ; Tobacco use Z72.0 ; Mixed hyperlipidemia E78.2 ; Bilateral carpal tunnel syndrome G56.03 ; Body mass index (bmi) 50-59.9 , adult Z68.43 and Encounter for immunization Z23 [place] [id number] [place] [id number] Oct, Major depressive disorder, r ecurrent episode, mild degree F33.0 and Generalized anxiety disorder F41.1 [place] [address] [address] Oct, [address] [address] [address] Oct, [address] [place] [address] Sep, Mild major depression F32.0 [facility] [address] [address] Sep, [facility] [id number] [place] [address] Sep, Mild major depression F32.0 and Generalized anxiety disorder F41.1 [facility] [address] [address] Sep, Paresthesia of both hands R2 0.2 and Cervical radiculopathy M54.12 [facility] [address] [address] Sep, [facility] [address] [address] Sep, [facility] [address] [address] Aug, Paresthesia of both hands R2 0.2 and Neck pain M54.2 [facility] [address] [address] Aug, [facility] [id number] [place] [address] Jul, Neck pain M54.2 and Paresthe eddie of both hands R20.2 [facility] [id number] [place] [id number] Jul, Proteinuria, unspecified typ e R80.9 [place] [id number] [place] [address] Jul, Proteinuria, unspecified typ e R80.9 [facility] [id number] [place] [id number] Jul, [facility] [address] [address] Jul, Other specified transient ce rebral ischemias G45.8 [facility] [address] [facility] [id number] [address] [place] [phone] Jun, Diastolic dysfunction I51.9 [facility] [address] [facility] [id number] [address] [place] [id number] 08 Jun, 2016 Diastolic dysfunction I51.9 [facility] [address] [facility] [place] [id number] [address] [place] [phone] Jun, Major depressive disorder, s david episode, unspecified F32.9 and Anxiety disorder, unspecified F41.9 [facility] [address] [facility] [place] [id number] [address] [place] [phone] Jun, [facility] [address] [facility] [place] [id number] [address] [place] [id number] Jun, [facility] [id number] [place] [address] May, Moderate major depression F3 2.1 and Generalized anxiety disorder F41.1 [facility] [address] [facility] [id number] [address] [place] [id number] 16 May, 2016 Major depressive disorder, s david episode, unspecified F32.9 and Anxiety disorder, unspecified F41.9 [facility] [id number] [place] [id number] 15 May, 2016 [facility] [address] [facility] [place] [id number] [address] [place] [id number] 14 May, 2016 Liver enzyme elevation R74.8 [facility] [id number] [place] [id number] 14 May, 2016 Liver enzyme elevation R74.8 [place] [id number] [place] [id number] 10 May, 2016 Shortness of breath on exert ion R06.02 ; Essential hypertension I10 ; Mixed hyperlipidemia E78.2 and Tobacco use Z72.0 [place] [id number] [place] [id number] May, [facility] [address] [id number] [address] [place] [id number] May, [facility] [address] [id number] [address] [place] [id number] Apr, Anxiety F41.9 and Depression F32.9 [facility] [address] [id number] [address] [place] [id number] Apr, [facility] [address] [id number] [address] [place] [id number] Apr, [facility] [address] [id number] [address] [place] [id number] Mar, Depression F32.9 and Anxiety F41.9 [facility] [address] [id number] [address] [place] [id number] Mar, Anxiety F41.9 and Depression F32.9 [facility] [address] [id number] [address] [place] [id number] Mar, Well woman exam (no gynecolo gical exam) Z00.00 [facility] [address] [id number] [address] [place] [id number] Mar, [facility] [address] [id number] [address] [place] [id number] Mar, [facility] [address] [id number] [address] [place] [id number] Feb, Dental caries K02.9 [facility] [address] [id number] [address] [place] [phone] Feb, [facility] [address] [id number] [address] [place] [id number] Feb, Anxiety F41.9 and Depression F32.9 [facility] [address] [id number] [address] [place] [id number] Feb, Dental examination Z01.20 [facility] [address] [id number] [address] [place] [phone] Feb, [facility] [address] [id number] [address] [place] [id number] Feb, [facility] [address] [id number] [address] [place] [id number] Feb, Anxiety F41.9 and Depression F32.9 [facility] [address] [id number] [address] [place] [id number] Jan, Severe episode of recurrent major depressive disorder, without psychotic features F33.2 and Anxiety disorder, unspecified F41.9 [facility] [address] [id number] [address] [place] [phone] Jan, [facility] [address] [id number] [address] [place] [id number] Dec, [facility] [address] [id number] [address] [place] [phone] Dec, Anxiety F41.9 and Depression F32.9 [facility] [address] [id number] [address] [place] [id number] Dec, Other specified transient ce rebral ischemias G45.8 and Nocturnal hypoxia G47.34 [facility] [address] [id number] [address] [place] [id number] Dec, [facility] [address] [id number] [address] [place] [id number] Dec, Other specified transient ce rebral ischemias G45.8 [facility] [address] [id number] [address] [place] [id number] 16 Dec, 2015 Severe episode of recurrent major depressive disorder, without psychotic features F33.2 and Anxiety disorder, unspecified F41.9 [facility] [address] [id number] [address] [place] [phone] Dec, [facility] [address] [address] 13 Dec, 2015 Anxiety F41.9 and Depression F32.9 [place] [address] [address] Dec, Anxiety F41.9 and Depression F32.9 [place] [address] [address] Dec, [place] [address] [address] November, Anxiety F41.9 and Depression F32.[address] [address] November, Severe episode of recurrent major depressive disorder, without psychotic features F33.[address] [address] November, Mixed hyperlipidemia E78.2 [place] [address] [address] November, Anxiety F41.9 and Depression F32.[address] [address] November, Prediabetes R73.09 ; Essenti al hypertension I10 ; Anxiety F41.9 ; Depression F32.9 ; Gastroesophageal reflux disease, esophagitis presence not specified K21.9 ; Primary osteoarthritis involving multiple joints M15.0 ; History of renal cell cancer Z85.528 ; Postnasal drip R09.82 ; Allergic rhinitis, unspecified J30.9 and Tobacco use Z72.0 [place] [address] [address] Oct, Anxiety F41.9 and Depression F32.9 [place] [address] [address] Oct, [place] [address] [address] Oct, [facility] [address] [facility] [id number] [address] [place] [id number] 14 Sep, 2015 Splenic artery aneurysm I72. 8 [facility] [address] [facility] [id number] [address] [place] [address] 10 Sep, 2015 Depression F32.9 ; Anxiety F 41.9 ; Chronic prescription benzodiazepine use Z79.899 and Splenic artery aneurysm I72.8 [facility] [address] [facility] [place] [id number] [address] [place] [id number] 10 Sep, 2015 Depression F32.9 and Anxiety F41.9 [facility] [id number] [place] [id number] Sep, [facility] [id number] [place] [phone] 18 Aug, 2015 Dehydration E86.0 ; Diarrhea R19.7 ; Nausea R11.0 and Generalized abdominal pain R10.84 [facility] [id number] [place] [id number] Aug, [facility] [address] [address] Jul, Depression F32.9 [facility] [id number] [place] [id number] Jul, [facility] [id number] [place] [address] Jul, Anxiety F41.9 and Depression F32.9 [facility] [id number] [place] [id number] Jul, [facility] [id number] [place] [id number] Jun, Epigastric pain R10.13 [facility] [id number] [place] [id number] Jun, [facility] [address] [place] [address] Jun, [facility] [address] [id number] [address] [place] [phone] May, [facility] [address] [facility] [id number] [address] [place] [id number] May, [facility] [address] [facility] [id number] [address] [place] [phone] Apr, [facility] [address] [facility] [id number] [address] [place] [id number] Mar, Anxiety state, unspecified 3 00.00 ; Depression 311 ; Prediabetes 790.29 ; Generalized osteoarthrosis, involving multiple sites 715.09 and Hypertension 401.9 [facility] [address] [facility] [place] [id number] [address] [place] [id number] Mar, [facility] [address] [facility] [place] [id number] [address] [place] [id number] Feb, [facility] [address] [facility] [place] [id number] [address] [place] [id number] Jan, [facility] [address] [facility] [place] [id number] [address] [place] [phone] Jan, [facility] [address] [facility] [place] [facility] [id number] [address] [place] [id number] Jan, Generalized osteoarthrosis, involving multiple sites 715.09 [facility] [address] [facility] [place] [id number] [address] [place] [id number] 07 Jan, 2015 Hx of renal cell cancer V10. 52 [facility] [address] [facility] [place] [id number] [address] [place] [id number] 30 Dec, 2014 Generalized osteoarthrosis, involving multiple sites 715.09 and Hx of renal cell cancer V10.52 [facility] [address] [facility] [place] [id number] [address] [place] [id number] Dec, [facility] [address] [facility] [place] [id number] [address] [place] [phone] Dec, [facility] [address] [id number] [address] [place] [id number] November, [facility] [address] [id number] [address] [place] [id number] Oct, [facility] [address] [id number] [address] [place] [id number] Oct, [facility] [address] [id number] [address] [place] [id number] Sep, [facility] [address] [id number] [address] [place] [id number] Sep, [facility] [address] [id number] [address] [place] [id number] Sep, [facility] [address] [id number] [address] [place] [id number] Sep, [facility] [address] [id number] [address] [place] [id number] Aug, [facility] [address] [id number] [address] [place] [id number] Aug, IMMUNIZATIONS No Known Immunizations SOCIAL HISTORY Never Assessed REASON FOR VISIT Controlled Med Refill PLAN OF CARE VITAL SIGNS MEDICATIONS Unknown [...]
--- OUTSIDE RECORDS SUMMARY | 2020-02-08 07:25 | XMS REPORT ---
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 Name Role Phone LOVELY CASSIDY Unavailable PROBLEMS Type Condition ICD9-CM Code QAD66-QK Code Onset Dates Condition S tatus SNOMED Code Problem Mixed hyperlipidemia E78.2 Active 624108881 Problem Fatty liver K76.0 Active 29184912 7 Problem Obstructive sleep apnea G47.33 Active 35757600 Problem Allergic rhinitis, unspecified J30.9 Active 55137677 Problem Essential hypertension I10 Active 16266814 Problem History of renal cell cancer Z85.528 A ctive 730864712 Problem Prediabetes R73.09 Active 7899943 Problem Diastolic dysfunction I51.9 Active 2199872 Problem Body mass index (bmi) 50-59.9 , adult Z68.43 Active 739419020 Problem Paresthesia of both hands R20.2 Acti ve 081789843 Problem Habitual self-excoriation F42.4 Acti ve 260331061 Problem BMI 50.0-59.9, adult Z68.43 Active 313671772 Problem Restrictive lung disease J98.4 Activ e 86058345 Problem Splenic artery aneurysm I72.8 Active 37525611 Problem Liver mass R16.0 Active 542757419 Problem Generalized anxiety disorder F41.1 A ctive 59827055 Problem Major depressive disorder, recurrent episode, mild degree F33.0 Active 984446633 Problem Excoriation, neurotic L98.1 Active 08534650 Problem History of tobacco use Z87.891 Active 4086944811342 Problem Primary osteoarthritis involving multiple joints M 15.0 Active 046770048 Problem Isolated proteinuria without specific morphologic lesion R80.0 Active 67427958 Problem 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 Active 341172797 Problem Pulmonary emphysema, unspecified emphysema type J4 3.9 Active 83320692 Problem Chronic prescription opiate use Z79.899 Active 077207025 Problem Tobacco use Z72.0 Active 26769518 0 Problem Bilateral carpal tunnel syndrome G56.03 Active 14847803 Problem Chronic prescription benzodiazepine use Z79.899 Active 403389102 ALLERGIES No Information ENCOUNTERS Encounter Location Date Diagnosis [facility], [place] [address] [facility] [id number] [address] [place] [id number] Feb, [facility] [place] [address] [facility] [id number] [address] [place] [id number] Jan, [facility], [place] [address] [place] [id number] [address] [place] [id number] Dec, [facility], [place] [address] [id number] Dec, [facility], [place] [address] [place] [id number] [place] [id number] Dec, [facility], [place] [address] [place] [id number] [address] [place] [id number] November, [facility], [place] [address] [place] [id number] [address] [place] [id number] November, [facility], [place] [address] [address] November, Pulmonary emphysema, unspeci fied emphysema type J43.9 ; Restrictive lung disease J98.4 ; BMI 50.0-59.9, adult Z68.43 ; History of renal cell cancer Z85.528 ; Essential hypertension I10 ; Mixed hyperlipidemia E78.2 and Fatty liver K76.0 [facility], [place] [address] [place] [id number] [address] [place] [phone] November, Generalized anxiety disorder F41.1 [facility], [place] [address] [address] November, Generalized anxiety disorder F41.1 and Major depressive disorder, recurrent episode, mild degree F33.0 [facility], [place] [address] [place] [id number] [address] [place] [phone] November, Generalized anxiety disorder F41.1 ; Major depressive disorder, recurrent episode, mild degree F33.0 and Habitual self-excoriation F42.4 [facility], [place] [address] [id number] November, [facility] [place] [address] [place] [id number] [address] [place] [id number] Oct, Generalized anxiety disorder F41.1 [facility], [place] [address] [id number] Oct, [facility], [place] [address] [place] [id number] [address] [place] [id number] Oct, Influenza-like illness R69 [facility], [place] [address] [place] [id number] [address] [place] [id number] Sep, Influenza-like illness R69 [facility] [place] [address] [address] Sep, Generalized anxiety disorder F41.1 [facility], [place] [address] [place] [id number] [address] [place] [phone] Sep, [facility] [place] [address] [address] Aug, [facility] [place] [address] [place] [id number] [address] [place] [id number] Aug, [facility], [place] [address] [place] [id number] [address] [place] [id number] Aug, Generalized anxiety disorder F41.1 [facility] [address] [facility] [id number] [address] [place] [id number] Aug, Influenza-like illness R69 a nd BMI 50.0-59.9, adult Z68.43 [facility], [place] [address] [facility] [id number] [address] [place] [id number] Jul, Fatty liver K76.0 ; Restrict jean-paul lung disease J98.4 ; Diastolic dysfunction I51.9 ; Body mass index (bmi) 50-59.9 , adult Z68.43 and Chronic prescription opiate use Z79.899 [facility], [place] [address] [facility] [id number] [address] [place] [id number] Jul, Generalized anxiety disorder F41.1 [facility], [place] [address] [facility] [id number] [address] [place] [id number] Jul, Generalized anxiety disorder F41.1 [facility] [place] [address] [facility] [id number] [address] [place] [id number] Jul, Primary osteoarthritis invol ving multiple joints M15.0 [facility] [place] [address] [facility] [id number] [address] [place] [id number] Jun, Generalized anxiety disorder F41.1 [place] [address] [facility] [id number] [address] [place] [id number] Jun, [place] [address] [place] [id number] [address] [place] [phone] Jun, Mixed hyperlipidemia E78.2 [facility], [place] [address] [facility] [id number] [address] [place] [id number] Jun, Generalized anxiety disorder F41.1 [place] [address] [place] [id number] [address] [place] [id number] Jun, Generalized anxiety disorder F41.1 ; Major depressive disorder, recurrent episode, mild degree F33.0 and Habitual self-excoriation F42.4 [facility], [place] [address] [facility] [id number] [address] [place] [id number] May, [facility] [place] [address] [facility] [id number] [address] [place] [id number] May, Generalized anxiety disorder F41.1 [facility], [place] [address] [facility] [id number] [address] [place] [id number] May, Generalized anxiety disorder F41.1 [facility], [place] [address] [facility] [id number] [address] [place] [id number] May, Primary osteoarthritis invol ving multiple joints M15.0 [facility], [place] [address] [id number] [address] [place] [id number] 09 Apr, 2017 Major depressive disorder, r ecurrent episode, mild degree F33.0 ; Generalized anxiety disorder F41.1 and Excoriation, neurotic L98.1 [facility], [place] [address] [id number] [address] [place] [id number] Apr, Primary osteoarthritis invol ving multiple joints M15.0 [facility] [place] [address] [id number] [address] [place] [id number] Apr, Essential hypertension I10 a nd Mixed hyperlipidemia E78.2 [facility], [place] [address] [id number] [address] [place] [id number] Apr, Generalized anxiety disorder F41.1 ; Major depressive disorder, recurrent episode, mild degree F33.0 and Habitual self-excoriation F42.4 [facility], [place] [address] [id number] [address] [place] [id number] Mar, Generalized anxiety disorder F41.1 ; Major depressive disorder, recurrent episode, mild degree F33.0 and Habitual self-excoriation F42.4 [facility] [place] [address] [id number] [address] [place] [id number] Mar, Skin lesion L98.9 [facility], [place] [address] [id number] [address] [place] [id number] Mar, Primary osteoarthritis invol ving multiple joints M15.0 [facility], [place] [address] [id number] [address] [place] [id number] Mar, [facility] [place] [address] [id number] [address] [place] [id number] Mar, [facility], [place] [address] [id number] [address] [place] [id number] Feb, Major depressive disorder, r ecurrent episode, mild degree F33.0 ; Generalized anxiety disorder F41.1 and Excoriation, neurotic L98.1 [facility], [place] [address] [facility] [id number] [address] [place] [phone] Feb, Generalized anxiety disorder F41.1 [facility], [place] [address] [facility] [id number] [address] [place] [id number] Feb, Primary osteoarthritis invol ving multiple joints M15.0 [facility], [place] [address] [facility] [id number] [address] [place] [id number] Jan, [facility], [place] [address] [facility] [id number] [address] [place] [id number] Jan, Essential hypertension I10 ; Splenic artery aneurysm I72.8 ; Liver mass R16.0 ; Restrictive lung disease J98.4 ; Primary osteoarthritis involving multiple joints M15.0 ; Mixed hyperlipidemia E78.2 ; Bilateral carpal tunnel syndrome G56.03 ; Body mass index (bmi) 50-59.9 , adult Z68.43 and History of tobacco use Z87.891 [place] [address] [place] [id number] [address] [place] [id number] Jan, Major depressive disorder, r ecurrent episode, mild degree F33.0 and Generalized anxiety disorder F41.1 [place] [address] [place] [id number] [address] [place] [id number] Jan, [place] [address] [place] [id number] [address] [place] [id number] Jan, Generalized anxiety disorder F41.1 and Major depressive disorder, recurrent episode, mild degree F33.0 [facility], [place] [address] [facility] [id number] [address] [place] [id number] Dec, Primary osteoarthritis invol ving multiple joints M15.0 [facility], [place] [address] [facility] [id number] [address] [place] [id number] Dec, Generalized anxiety disorder F41.1 [facility], [place] [address] [facility] [id number] [address] [place] [id number] Dec, [facility], [place] [address] [place] [id number] [address] [place] [phone] Dec, Major depressive disorder, r ecurrent episode, mild degree F33.0 and Generalized anxiety disorder F41.1 [place] [address] [address] Dec, Generalized anxiety disorder F41.1 and Major depressive disorder, recurrent episode, mild degree F33.0 [place] [address] [address] November, Mild major depression F32.0 and Primary osteoarthritis involving multiple joints M15.0 [place] [address] [id number] November, Major depressive disorder, r ecurrent episode, mild degree F33.0 and Generalized anxiety disorder F41.1 [place] [address] [address] November, Primary osteoarthritis invol ving multiple joints M15.0 ; Essential hypertension I10 ; Prediabetes R73.09 ; Mixed hyperlipidemia E78.2 ; Chronic prescription benzodiazepine use Z79.899 ; Chronic prescription opiate use Z79.899 ; Tobacco use Z72.0 ; Bilateral carpal tunnel syndrome G56.03 and Body mass index (bmi) 50-59.9 , adult Z68.43 [place] [address] [place] [id number] [address] [place] [id number] November, Primary osteoarthritis invol ving multiple joints M15.0 and Mild major depression F32.0 [place] [address] [place] [id number] [address] [place] [id number] Oct, [place] [address] [id number] Oct, Primary osteoarthritis invol ving multiple joints M15.0 ; Essential hypertension I10 ; Prediabetes R73.09 ; Chronic prescription benzodiazepine use Z79.899 ; Chronic prescription opiate use Z79.899 ; Tobacco use Z72.0 ; Mixed hyperlipidemia E78.2 ; Bilateral carpal tunnel syndrome G56.03 ; Body mass index (bmi) 50-59.9 , adult Z68.43 and Encounter for immunization Z23 [facility], [place] [address] [id number] [address] [place] [id number] Oct, Major depressive disorder, r ecurrent episode, mild degree F33.0 and Generalized anxiety disorder F41.1 [facility], [place] [address] [id number] [address] [place] [id number] Oct, [facility], [place] [address] [id number] [address] [place] [id number] Oct, [facility], [place] [address] [id number] [address] [place] [id number] Sep, Mild major depression F32.0 [facility], [place] [address] [id number] [address] [place] [id number] Sep, [facility] [place] [address] [id number] [address] [place] [id number] Sep, Mild major depression F32.0 and Generalized anxiety disorder F41.1 [facility], [place] [address] [id number] [address] [place] [id number] Sep, Paresthesia of both hands R2 0.2 and Cervical radiculopathy M54.12 [facility], [place] [address] [id number] [address] [place] [id number] Sep, [facility], [place] [address] [id number] [address] [place] [id number] Sep, [facility], [place] [address] [id number] [address] [place] [id number] Aug, Paresthesia of both hands R2 0.2 and Neck pain M54.2 [facility], [place] [address] [facility] [id number] [address] [place] [id number] Aug, [facility], [place] [address] [id number] [address] [place] [id number] Jul, Neck pain M54.2 and Paresthe eddie of both hands R20.2 [place] [address] [facility] [id number] [address] [place] [id number] Jul, Proteinuria, unspecified typ e R80.9 [facility], [place] [address] [facility] [id number] [address] [place] [id number] Jul, Proteinuria, unspecified typ e R80.9 [place] [address] [facility] [id number] [address] [place] [id number] Jul, [place] [address] [facility] [id number] [address] [place] [id number] Jul, Other specified transient ce rebral ischemias G45.8 [place] [address] [facility] [id number] [address] [place] [id number] Jun, Diastolic dysfunction I51.9 [place] [address] [facility] [id number] [address] [place] [phone] Jun, Diastolic dysfunction I51.9 [place] [address] [facility] [id number] [address] [place] [id number] Jun, Major depressive disorder, s david episode, unspecified F32.9 and Anxiety disorder, unspecified F41.9 [place] [address] [facility] [id number] [address] [place] [id number] Jun, [place] [address] [place] [id number] [address] [place] [phone] Jun, [place] [address] [facility] [id number] [address] [place] [id number] May, Moderate major depression F3 2.1 and Generalized anxiety disorder F41.1 [place] [address] [facility] [id number] [address] [place] [phone] May, Major depressive disorder, s david episode, unspecified F32.9 and Anxiety disorder, unspecified F41.9 [place] [address] [facility] [id number] [address] [place] [id number] May, [facility], [place] [address] [facility] [id number] [address] [place] [id number] 14 May, 2016 Liver enzyme elevation R74.8 [facility] [place] [address] [facility] [id number] [address] [place] [id number] 14 May, 2016 Liver enzyme elevation R74.8 [facility] [place] [address] [facility] [id number] [address] [place] [id number] 10 May, 2016 Shortness of breath on exert ion R06.02 ; Essential hypertension I10 ; Mixed hyperlipidemia E78.2 and Tobacco use Z72.0 [facility] [place] [address] [facility] [id number] [address] [place] [id number] 03 May, 2016 [facility] [place] [address] [facility] [id number] [address] [place] [phone] May, [facility], [place] [address] [place] [id number] [address] [place] [id number] Apr, Anxiety F41.9 and Depression F32.9 [facility], [place] [address] [place] [id number] [address] [place] [id number] Apr, [facility], [place] [address] [place] [id number] [address] [place] [id number] Apr, [facility] [place] [address] [place] [id number] [address] [place] [id number] 22 Mar, 2016 Depression F32.9 and Anxiety F41.9 [facility], [place] [address] [place] [id number] [address] [place] [id number] 08 Mar, 2016 Anxiety F41.9 and Depression F32.9 [facility] [place] [address] [facility] [id number] [address] [place] [id number] 06 Mar, 2016 Well woman exam (no gynecolo gical exam) Z00.00 [facility], [place] [address] [facility] [id number] [address] [place] [id number] 02 Mar, 2016 [facility], [place] [address] [place] [id number] [address] [place] [id number] Mar, [facility] [address] [id number] [address] [place] [id number] Feb, Dental caries K02.9 [facility] [place] [address] [id number] [address] [place] [id number] Feb, [facility] [place] [address] [id number] [address] [place] [id number] Feb, Anxiety F41.9 and Depression F32.9 [facility] [address] [id number] [address] [place] [id number] Feb, Dental examination Z01.20 [facility] [place] [address] [id number] [address] [place] [id number] Feb, [facility] [place] [address] [id number] [address] [place] [id number] Feb, [facility] [place] [address] [id number] [address] [place] [id number] Feb, Anxiety F41.9 and Depression F32.9 [facility] [place] [address] [id number] [address] [place] [id number] Jan, Severe episode of recurrent major depressive disorder, without psychotic features F33.2 and Anxiety disorder, unspecified F41.9 [facility] [place] [address] [id number] [address] [place] [phone] Jan, [facility] [place] [address] [id number] [address] [place] [id number] Dec, [facility] [place] [address] [id number] [address] [place] [id number] Dec, Anxiety F41.9 and Depression F32.9 [facility] [place] [address] [facility] [id number] [address] [place] [id number] Dec, Other specified transient ce rebral ischemias G45.8 and Nocturnal hypoxia G47.34 [facility] [place] [address] [id number] [address] [place] [id number] 18 Dec, 2015 [facility] [place] [address] [id number] [address] [place] [id number] 17 Dec, 2015 Other specified transient ce rebral ischemias G45.8 [facility] [place] [address] [id number] [address] [place] [id number] 16 Dec, 2015 Severe episode of recurrent major depressive disorder, without psychotic features F33.2 and Anxiety disorder, unspecified F41.9 [facility] [place] [address] [id number] [address] [place] [id number] 13 Dec, 2015 [place] [address] [id number] [address] [place] [id number] 13 Dec, 2015 Anxiety F41.9 and Depression F32.9 [place] [address] [facility] [id number] [address] [place] [id number] 07 Dec, 2015 Anxiety F41.9 and Depression F32.9 [place] [address] [facility] [id number] [address] [place] [id number] 03 Dec, 2015 [place] [address] [facility] [id number] [address] [place] [id number] November, Anxiety F41.9 and Depression F32.9 [place] [address] [facility] [id number] [address] [place] [id number] November, Severe episode of recurrent major depressive disorder, without psychotic features F33.2 [place] [address] [facility] [id number] [address] [place] [id number] November, Mixed hyperlipidemia E78.2 [place] [address] [facility] [id number] [address] [place] [id number] November, Anxiety F41.9 and Depression F32.9 [place] [address] [facility] [id number] [address] [place] [id number] 05 Nov, 2015 Prediabetes R73.09 ; Essenti al hypertension I10 ; Anxiety F41.9 ; Depression F32.9 ; Gastroesophageal reflux disease, esophagitis presence not specified K21.9 ; Primary osteoarthritis involving multiple joints M15.0 ; History of renal cell cancer Z85.528 ; Postnasal drip R09.82 ; Allergic rhinitis, unspecified J30.9 and Tobacco use Z72.0 [facility] [place] [address] [id number] 11 Oct, 2015 Anxiety F41.9 and Depression F32.9 [place] [address] [id number] 07 Oct, 2015 [place] [address] [phone] Oct, [place] [address] [id number] 14 Sep, 2015 Splenic artery aneurysm I72. 8 [place] [address] [id number] 10 Sep, 2015 Depression F32.9 ; Anxiety F 41.9 ; Chronic prescription benzodiazepine use Z79.899 and Splenic artery aneurysm I72.8 [place] [address] [id number] 10 Sep, 2015 Depression F32.9 and Anxiety F41.9 [place] [address] [address] Sep, [place] [address] [id number] 18 Aug, 2015 Dehydration E86.0 ; Diarrhea R19.7 ; Nausea R11.0 and Generalized abdominal pain R10.84 [place] [address] [id number] Aug, [place] [address] [phone] Jul, Depression F32.9 [place] [address] [id number] Jul, [place] [address] [id number] [address] [place] [phone] Jul, Anxiety F41.9 and Depression F32.9 [facility], [place] [address] [facility] [id number] [place] [phone] Jul, [facility], [place] [address] [facility] [id number] [address] [place] [id number] Jun, Epigastric pain R10.13 [facility], [place] [address] [id number] [address] [place] [id number] Jun, [facility], [place] [address] [id number] [address] [place] [phone] Jun, [facility], [place] [address] [facility] [id number] [address] [place] [phone] May, [facility], [place] [address] [facility] [id number] [address] [place] [phone] May, [facility], [place] [address] [facility] [id number] [address] [place] [phone] Apr, [facility], [place] [address] [facility] [id number] [address] [place] [phone] Mar, Anxiety state, unspecified 3 00.00 ; Depression 311 ; Prediabetes 790.29 ; Generalized osteoarthrosis, involving multiple sites 715.09 and Hypertension 401.9 [facility], [place] [address] [facility] [id number] [address] [place] [phone] Mar, [facility], [place] [address] [facility] [id number] [address] [place] [id number] Feb, [facility], [place] [address] [facility] [id number] [address] [place] [phone] Jan, [facility], [place] [address] [facility] [id number] [address] [place] [id number] Jan, [facility], [place] [address] [facility] [id number] [address] [place] [phone] Jan, Generalized osteoarthrosis, involving multiple sites 715.09 [facility], [place] [address] [id number] [address] [place] [phone] 07 Jan, 2015 Hx of renal cell cancer V10. 52 [facility], [place] [address] [id number] [address] [place] [id number] 30 Dec, 2014 Generalized osteoarthrosis, involving multiple sites 715.09 and Hx of renal cell cancer V10.52 [facility], [place] [address] [id number] [address] [place] [id number] 24 Dec, 2014 [facility], [place] [address] [id number] [address] [place] [phone] Dec, [facility], [place] [address] [id number] [address] [place] [phone] November, [facility], [place] [address] [id number] [address] [place] [phone] Oct, [facility], [place] [address] [id number] [address] [place] [phone] Oct, [facility], [place] [address] [id number] [address] [place] [phone] Sep, [facility], [place] [address] [id number] [address] [place] [phone] Sep, [facility], [place] [address] [id number] [address] [place] [phone] Sep, [facility], [place] [address] [id number] [address] [place] [phone] Sep, [facility], [place] [address] [id number] [address] [place] [phone] Aug, [facility], [place] [address] [id number] [address] [place] [phone] Aug, IMMUNIZATIONS No Known Immunizations SOCIAL HISTORY Never Assessed REASON FOR VISIT Follow-up Depression/Anxiety PLAN OF CARE Activity Details Follow Up 4 Weeks Reason: Follow-up VITAL SIGNS MEDICATIONS Unknown Medications RESULTS No Results PROCEDURES Procedure Date Ordered Result Body Site Psychotherapy, patient &/family, 30 minutes, established patient Aug 14, 2017 INSTRUCTIONS MEDICATIONS ADMINISTERED No Known Medications [...]
--- OUTSIDE RECORDS SUMMARY | 2020-02-08 07:26 | XMS REPORT ---
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 Name Role Phone LALOJEZALBANIA Unavailable PROBLEMS Type Condition ICD9-CM Code JYN12-GI Code Onset Dates Condition S tatus SNOMED Code Problem Mixed hyperlipidemia E78.2 Active 038446950 Problem Fatty liver K76.0 Active 14830957 7 Problem Obstructive sleep apnea G47.33 Active 07742032 Problem Allergic rhinitis, unspecified J30.9 Active 28092423 Problem Essential hypertension I10 Active 23477045 Problem History of renal cell cancer Z85.528 A ctive 604960878 Problem Prediabetes R73.09 Active 1616345 Problem Diastolic dysfunction I51.9 Active 9195163 Problem Body mass index (bmi) 50-59.9 , adult Z68.43 Active 018455047 Problem Paresthesia of both hands R20.2 Acti ve 734721587 Problem Habitual self-excoriation 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 Acti ve 187828263 Problem BMI 50.0-59.9, adult Z68.43 Active 549149628 Problem Restrictive lung disease J98.4 Activ e 71119735 Problem Splenic artery aneurysm I72.8 Active 56597953 Problem Liver mass R16.0 Active 934384901 Problem Generalized anxiety disorder F41.1 A ctive 45050243 Problem Major depressive disorder, recurrent episode, mild degree F33.0 Active 233492137 Problem Excoriation, neurotic L98.1 Active 23330508 Problem History of tobacco use Z87.891 Active 1668505029776 Problem Primary osteoarthritis involving multiple joints M 15.0 Active 967234378 Problem Isolated proteinuria without specific morphologic lesion R80.0 Active 07387231 Problem 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 Active 019025561 Problem Pulmonary emphysema, unspecified emphysema type J4 3.9 Active 73503948 Problem Chronic prescription opiate use Z79.899 Active 946408552 Problem Tobacco use Z72.0 Active 82672535 0 Problem Bilateral carpal tunnel syndrome G56.03 Active 41509826 Problem Chronic prescription benzodiazepine use Z79.899 Active 899238887 ALLERGIES No Information ENCOUNTERS Encounter Location Date Diagnosis [facility] [id number] [place] [address] Feb, [facility] [address] [address] Dec, [facility] [address] [address] Dec, [facility] [address] [address] November, [facility] [address] [address] November, [facility] [address] [address] November, Pulmonary emphysema, unspeci fied emphysema type J43.9 ; Restrictive lung disease J98.4 ; BMI 50.0-59.9, adult Z68.43 ; History of renal cell cancer Z85.528 ; Essential hypertension I10 ; Mixed hyperlipidemia E78.2 and Fatty liver K76.0 [place] [id number] [place] [address] November, Generalized anxiety disorder F41.1 [place] [address] [address] November, Generalized anxiety disorder F41.1 and Major depressive disorder, recurrent episode, mild degree F33.0 [place] [address] [address] November, Generalized anxiety disorder F41.1 ; Major depressive disorder, recurrent episode, mild degree F33.0 and Habitual self-excoriation F42.4 [place] [id number] [place] [address] November, [facility] [address] [facility] [id number] [address] [place] [address] Oct, Generalized anxiety disorder F41.1 [facility] [address] [id number] [address] [place] [address] Oct, [facility] [id number] [place] [address] Oct, Influenza-like illness R69 [facility] [id number] [place] [address] Sep, Influenza-like illness R69 [facility] [id number] [place] [address] Sep, Generalized anxiety disorder F41.1 [facility] [address] [id number] [address] [place] [address] Sep, [facility] [address] [address] Aug, [facility] [id number] [place] [address] Aug, [facility] [address] [address] Aug, Generalized anxiety disorder F41.1 [facility] [address] [id number] [address] [place] [address] Aug, Influenza-like illness R69 a nd BMI 50.0-59.9, adult Z68.43 [facility] [address] [id number] [address] [place] [address] Jul, 2018 Fatty liver K76.0 ; Restrict jean-paul lung disease J98.4 ; Diastolic dysfunction I51.9 ; Body mass index (bmi) 50-59.9 , adult Z68.43 and Chronic prescription opiate use Z79.899 [facility] [id number] [place] [address] Jul, Generalized anxiety disorder F41.1 [facility] [address] [id number] [address] [place] [address] Jul, Generalized anxiety disorder F41.1 [facility] [address] [id number] [address] [place] [address] Jul, Primary osteoarthritis invol ving multiple joints M15.0 [facility] [address] [id number] [address] [place] [address] Jun, Generalized anxiety disorder F41.1 [facility] [address] [id number] [address] [place] [address] Jun, [facility] [address] [id number] [address] [place] [address] Jun, Mixed hyperlipidemia E78.2 [facility] [address] [facility] [id number] [address] [place] [address] Jun, Generalized anxiety disorder F41.1 [facility] [address] [id number] [address] [place] [address] Jun, Generalized anxiety disorder F41.1 ; Major depressive disorder, recurrent episode, mild degree F33.0 and Habitual self-excoriation F42.4 [facility] [address] [id number] [address] [place] [address] May, [facility] [address] [id number] [address] [place] [address] May, Generalized anxiety disorder F41.1 [facility] [address] [id number] [address] [place] [address] May, Generalized anxiety disorder F41.1 [facility] [address] [id number] [address] [place] [address] May, Primary osteoarthritis invol ving multiple joints M15.0 [facility] [address] [id number] [address] [place] [address] Apr, Major depressive disorder, r ecurrent episode, mild degree F33.0 ; Generalized anxiety disorder F41.1 and Excoriation, neurotic L98.1 [facility] [address] [id number] [address] [place] [address] 04 Apr, 2017 Primary osteoarthritis invol ving multiple joints M15.0 [facility] [address] [id number] [address] [place] [address] 03 Apr, 2017 Essential hypertension I10 a nd Mixed hyperlipidemia E78.2 [facility] [address] [id number] [address] [place] [address] Apr, Generalized anxiety disorder F41.1 ; Major depressive disorder, recurrent episode, mild degree F33.0 and Habitual self-excoriation F42.4 [facility] [address] [id number] [address] [place] [address] 06 Mar, 2017 Generalized anxiety disorder F41.1 ; Major depressive disorder, recurrent episode, mild degree F33.0 and Habitual self-excoriation F42.4 [facility] [address] [id number] [address] [place] [address] 05 Mar, 2017 Skin lesion L98.9 [facility] [address] [id number] [address] [place] [address] 05 Mar, 2017 Primary osteoarthritis invol ving multiple joints M15.0 [facility] [address] [id number] [address] [place] [address] Mar, [facility] [address] [id number] [address] [place] [address] Mar, [facility] [address] [id number] [address] [place] [address] Feb, Major depressive disorder, r ecurrent episode, mild degree F33.0 ; Generalized anxiety disorder F41.1 and Excoriation, neurotic L98.1 [facility] [address] [id number] [address] [place] [address] Feb, Generalized anxiety disorder F41.1 [facility] [address] [id number] [address] [place] [address] Feb, Primary osteoarthritis invol ving multiple joints M15.0 [facility] [address] [facility] [id number] [address] [place] [address] Jan, [facility] [address] [facility] [id number] [address] [place] [address] Jan, Essential hypertension I10 ; Splenic artery aneurysm I72.8 ; Liver mass R16.0 ; Restrictive lung disease J98.4 ; Primary osteoarthritis involving multiple joints M15.0 ; Mixed hyperlipidemia E78.2 ; Bilateral carpal tunnel syndrome G56.03 ; Body mass index (bmi) 50-59.9 , adult Z68.43 and History of tobacco use Z87.891 [facility] [address] [facility] [id number] [address] [place] [address] Jan, Major depressive disorder, r ecurrent episode, mild degree F33.0 and Generalized anxiety disorder F41.1 [facility] [address] [id number] [address] [place] [phone] Jan, [facility] [address] [facility] [id number] [address] [place] [address] Jan, Generalized anxiety disorder F41.1 and Major depressive disorder, recurrent episode, mild degree F33.0 [facility] [address] [id number] [address] [place] [address] Dec, Primary osteoarthritis invol ving multiple joints M15.0 [facility] [address] [facility] [id number] [address] [place] [phone] Dec, Generalized anxiety disorder F41.1 [facility] [address] [facility] [id number] [address] [place] [address] Dec, [facility] [address] [facility] [id number] [address] [place] [address] Dec, Major depressive disorder, r ecurrent episode, mild degree F33.0 and Generalized anxiety disorder F41.1 [facility] [address] [id number] [address] [place] [address] Dec, Generalized anxiety disorder F41.1 and Major depressive disorder, recurrent episode, mild degree F33.0 [place] [address] [id number] [place] [address] November, Mild major depression F32.0 and Primary osteoarthritis involving multiple joints M15.0 [facility] [address] [id number] [address] [place] [address] November, Major depressive disorder, r ecurrent episode, mild degree F33.0 and Generalized anxiety disorder F41.1 [place] [address] [id number] [address] [place] [address] November, Primary osteoarthritis invol ving multiple joints M15.0 ; Essential hypertension I10 ; Prediabetes R73.09 ; Mixed hyperlipidemia E78.2 ; Chronic prescription benzodiazepine use Z79.899 ; Chronic prescription opiate use Z79.899 ; Tobacco use Z72.0 ; Bilateral carpal tunnel syndrome G56.03 and Body mass index (bmi) 50-59.9 , adult Z68.43 [place] [id number] [place] [address] November, Primary osteoarthritis invol ving multiple joints M15.0 and Mild major depression F32.0 [place] [address] [id number] [place] [address] Oct, [place] [address] [id number] [place] [address] Oct, Primary osteoarthritis invol ving multiple joints M15.0 ; Essential hypertension I10 ; Prediabetes R73.09 ; Chronic prescription benzodiazepine use Z79.899 ; Chronic prescription opiate use Z79.899 ; Tobacco use Z72.0 ; Mixed hyperlipidemia E78.2 ; Bilateral carpal tunnel syndrome G56.03 ; Body mass index (bmi) 50-59.9 , adult Z68.43 and Encounter for immunization Z23 [facility] [address] [id number] [address] [place] [phone] Oct, Major depressive disorder, r ecurrent episode, mild degree F33.0 and Generalized anxiety disorder F41.1 [facility] [address] [id number] [address] [place] [address] Oct, [facility] [address] [id number] [address] [place] [address] Oct, [facility] [address] [id number] [address] [place] [address] Sep, Mild major depression F32.0 [facility] [address] [id number] [address] [place] [address] Sep, [facility] [address] [id number] [address] [place] [id number] Sep, Mild major depression F32.0 and Generalized anxiety disorder F41.1 [facility] [address] [facility] [id number] [address] [place] [address] Sep, Paresthesia of both hands R2 0.2 and Cervical radiculopathy M54.12 [facility] [address] [id number] [address] [place] [address] Sep, [facility] [address] [facility] [id number] [address] [place] [address] Sep, [facility] [address] [facility] [id number] [address] [place] [address] Aug, Paresthesia of both hands R2 0.2 and Neck pain M54.2 [facility] [address] [id number] [address] [place] [address] Aug, [facility] [address] [facility] [id number] [address] [place] [address] Jul, Neck pain M54.2 and Paresthe eddie of both hands R20.2 [facility] [address] [facility] [id number] [address] [place] [address] Jul, Proteinuria, unspecified typ e R80.9 [facility] [address] [facility] [id number] [address] [place] [phone] Jul, Proteinuria, unspecified typ e R80.9 [facility] [address] [facility] [id number] [address] [place] [phone] Jul, [place] [address] [facility] [id number] [address] [place] [address] Jul, Other specified transient ce rebral ischemias G45.8 [facility] [address] [facility] [id number] [address] [place] [address] Jun, Diastolic dysfunction I51.9 [place] [address] [facility] [id number] [address] [place] [address] Jun, Diastolic dysfunction I51.9 [place] [address] [id number] [place] [address] Jun, Major depressive disorder, s david episode, unspecified F32.9 and Anxiety disorder, unspecified F41.9 [place] [address] [id number] [place] [address] Jun, [place] [id number] [place] [address] Jun, [place] [id number] [place] [address] May, Moderate major depression F3 2.1 and Generalized anxiety disorder F41.1 [place] [address] [facility] [id number] [address] [place] [address] May, Major depressive disorder, s david episode, unspecified F32.9 and Anxiety disorder, unspecified F41.9 [place] [address] [id number] [address] [place] [address] May, [place] [address] [id number] [place] [address] 14 May, 2016 Liver enzyme elevation R74.8 [place] [address] [facility] [id number] [address] [place] [address] 14 May, 2016 Liver enzyme elevation R74.8 [facility] [id number] [place] [address] 10 May, 2016 Shortness of breath on exert ion R06.02 ; Essential hypertension I10 ; Mixed hyperlipidemia E78.2 and Tobacco use Z72.0 [facility] [address] [facility] [id number] [place] [address] May, [facility] [id number] [place] [address] May, [facility] [address] [address] Apr, Anxiety F41.9 and Depression F32.9 [facility] [address] [address] Apr, [facility] [address] [address] Apr, [facility] [address] [address] Mar, Depression F32.9 and Anxiety F41.9 [facility] [address] [address] 08 Mar, 2016 Anxiety F41.9 and Depression F32.9 [facility] [address] [address] Mar, Well woman exam (no gynecolo gical exam) Z00.00 [facility] [id number] [place] [address] Mar, [facility] [id number] [place] [address] Mar, [facility] [address] [id number] [address] [place] [id number] Feb, Dental caries K02.9 [facility] [address] [place] [address] Feb, [facility] [address] [id number] [address] [place] [address] Feb, Anxiety F41.9 and Depression F32.9 [facility] [address] [id number] [address] [place] [id number] Feb, Dental examination Z01.20 [facility] [address] [id number] [address] [place] [address] Feb, [facility] [address] [id number] [address] [place] [address] Feb, [facility] [address] [id number] [address] [place] [address] Feb, Anxiety F41.9 and Depression F32.9 [facility] [address] [facility] [id number] [address] [place] [address] Jan, Severe episode of recurrent major depressive disorder, without psychotic features F33.2 and Anxiety disorder, unspecified F41.9 [facility] [address] [id number] [address] [place] [address] Jan, [facility] [address] [facility] [id number] [address] [place] [address] Dec, [facility] [address] [id number] [address] [place] [address] Dec, Anxiety F41.9 and Depression F32.9 [facility] [address] [id number] [address] [place] [address] Dec, Other specified transient ce rebral ischemias G45.8 and Nocturnal hypoxia G47.34 [facility] [address] [id number] [address] [place] [address] Dec, [facility] [address] [facility] [id number] [address] [place] [address] Dec, Other specified transient ce rebral ischemias G45.8 [place] [id number] [place] [address] 16 Dec, 2015 Severe episode of recurrent major depressive disorder, without psychotic features F33.2 and Anxiety disorder, unspecified F41.9 [place] [id number] [place] [address] 13 Dec, 2015 [place] [address] [address] 13 Dec, 2015 Anxiety F41.9 and Depression F32.9 [place] [address] [address] 07 Dec, 2015 Anxiety F41.9 and Depression F32.9 [place] [address] [address] Dec, [place] [address] [address] November, Anxiety F41.9 and Depression F32.9 [place] [address] [address] November, Severe episode of recurrent major depressive disorder, without psychotic features F33.2 [place] [address] [address] November, Mixed hyperlipidemia E78.2 [place] [address] [address] November, Anxiety F41.9 and Depression F32.9 [place] [address] [address] 05 Nov, 2015 Prediabetes R73.09 ; Essenti al hypertension I10 ; Anxiety F41.9 ; Depression F32.9 ; Gastroesophageal reflux disease, esophagitis presence not specified K21.9 ; Primary osteoarthritis involving multiple joints M15.0 ; History of renal cell cancer Z85.528 ; Postnasal drip R09.82 ; Allergic rhinitis, unspecified J30.9 and Tobacco use Z72.0 [place] [address] [place] [id number] [address] [place] [address] 11 Oct, 2015 Anxiety F41.9 and Depression F32.9 [facility] [id number] [address] [place] [address] 07 Oct, 2015 [facility] [address] [id number] [address] [place] [address] Oct, [facility] [address] [address] 14 Sep, 2015 Splenic artery aneurysm I72. 8 [facility] [address] [id number] 10 Sep, 2015 Depression F32.9 ; Anxiety F 41.9 ; Chronic prescription benzodiazepine use Z79.899 and Splenic artery aneurysm I72.8 [place] [address] [id number] 10 Sep, 2015 Depression F32.9 and Anxiety F41.9 [facility] [address] [place] [id number] [address] [place] [phone] Sep, [facility] [address] [id number] 18 Aug, 2015 Dehydration E86.0 ; Diarrhea R19.7 ; Nausea R11.0 and Generalized abdominal pain R10.84 [place] [address] [id number] Aug, [facility] [address] [place] [place] [id number] [address] [place] [phone] Jul, Depression F32.9 [facility] [address] [place] [id number] [address] [place] [phone] Jul, [facility] [address] [place] [id number] [place] [phone] Jul, Anxiety F41.9 and Depression F32.9 [facility] [address] [place] [id number] [address] [place] [phone] Jul, [facility] [address] [facility] [id number] [address] [place] [id number] Jun, Epigastric pain R10.13 [facility] [address] [id number] [address] [place] [id number] Jun, [facility] [address] [facility] [id number] [address] [place] [phone] Jun, [facility] [address] [id number] [address] [place] [phone] May, [facility] [address] [id number] [address] [place] [phone] May, [facility] [address] [facility] [id number] [address] [place] [phone] Apr, [facility] [address] [facility] [id number] [address] [place] [id number] Mar, Anxiety state, unspecified 3 00.00 ; Depression 311 ; Prediabetes 790.29 ; Generalized osteoarthrosis, involving multiple sites 715.09 and Hypertension 401.9 [facility] [address] [facility] [id number] [address] [place] [phone] Mar, [facility] [address] [facility] [id number] [address] [place] [phone] Feb, [facility] [address] [facility] [id number] [address] [place] [phone] Jan, [facility] [address] [id number] [address] [place] [phone] Jan, [facility] [address] [facility] [id number] [address] [place] [phone] Jan, Generalized osteoarthrosis, involving multiple sites 715.09 [facility] [address] [facility] [id number] [address] [place] [phone] Jan, Hx of renal cell cancer V10. 52 [facility] [address] [id number] [address] [place] [id number] Dec, Generalized osteoarthrosis, involving multiple sites 715.09 and Hx of renal cell cancer V10.52 [facility] [address] [id number] [address] [place] [phone] Dec, [facility] [address] [id number] [address] [place] [phone] Dec, [facility] [address] [id number] [address] [place] [phone] November, [facility] [address] [id number] [address] [place] [phone] Oct, [facility] [address] [id number] [address] [place] [phone] Oct, [facility] [address] [id number] [address] [place] [phone] Sep, [facility] [address] [id number] [address] [place] [phone] Sep, [facility] [address] [id number] [address] [place] [phone] Sep, [facility] [address] [id number] [address] [place] [phone] Sep, [facility] [address] [id number] [address] [place] [phone] Aug, [facility] [address] [id number] [address] [place] [phone] Aug, IMMUNIZATIONS No Known Immunizations SOCIAL HISTORY Never Assessed REASON FOR VISIT Refill Request PLAN OF CARE VITAL SIGNS MEDICATIONS Medication Instructions Dosage Frequency Start Date End Date Duration S tatus Atorvastatin Calcium 40 mg Orally Once a day 1 tablet 24h 30 days Active RESULTS No Results PROCEDURES [...]
--- OUTSIDE RECORDS SUMMARY | 2020-02-08 07:26 | XMS REPORT ---
Author Author Emilee MAY Organization [facility], [place] Address [address] [place] [address] Care Team Providers Care Certified Optician Name Role Phone LALOSTEPHANI CONSTANTINOY Unavailable PROBLEMS Type Condition ICD9-CM Code LZD54-OS Code Onset Dates Condition S tatus SNOMED Code Problem Mixed hyperlipidemia E78.2 Active 909955738 Problem Chronic prescription opiate use Z79.899 Active 651328213 Problem Fatty liver K76.0 Active 11729877 7 Problem Tobacco use Z72.0 Active 73203098 0 Problem Obstructive sleep apnea G47.33 Active 80035846 Problem Allergic rhinitis, unspecified J30.9 Active 78164588 Problem Diastolic dysfunction I51.9 Active 9069581 Problem History of renal cell cancer Z85.528 A ctive 637544479 Problem Excoriation, neurotic L98.1 Active 39389996 Problem History of tobacco use Z87.891 Active 8302212375648 Problem Liver mass R16.0 Active 909418056 Problem Prediabetes R73.09 Active 2503963 Problem Essential hypertension I10 Active 92300633 Problem Body mass index (bmi) 50-59.9 , adult Z68.43 Active 304262180 Problem Paresthesia of both hands R20.2 Acti ve 643141057 Problem Generalized anxiety disorder F41.1 A ctive 69053646 Problem Major depressive disorder, recurrent episode, mild degree F33.0 Active 434564766 Problem 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 Active 029634843 Problem Pulmonary emphysema, unspecified emphysema type J4 3.9 Active 16123893 Problem Splenic artery aneurysm I72.8 Active 39203137 Problem Restrictive lung disease J98.4 Activ e 90416710 Problem Bilateral carpal tunnel syndrome G56.03 Active 33743693 Problem Chronic prescription benzodiazepine use Z79.899 Active 682390751 Problem Primary osteoarthritis involving multiple joints M 15.0 Active 186083976 Problem Isolated proteinuria without specific morphologic lesion R80.0 Active 19489606 ALLERGIES No Information ENCOUNTERS Encounter Location Date Diagnosis [facility] [place] [id number] [place] [address] Sep, Influenza-like illness R69 [facility] [place] [id number] [place] [address] Sep, Generalized anxiety disorder F41.1 [facility] [place] [address] [address] Sep, [facility] [place] [address] [address] Aug, [facility] [place] [address] [address] Aug, [facility] [place] [address] [address] Aug, Generalized anxiety disorder F41.1 [facility] [id number] [place] [address] Aug, Influenza-like illness R69 a nd BMI 50.0-59.9, adult Z68.43 [facility] [place] [id number] [place] [address] Jul, Fatty liver K76.0 ; Restrict jean-paul lung disease J98.4 ; Diastolic dysfunction I51.9 ; Body mass index (bmi) 50-59.9 , adult Z68.43 and Chronic prescription opiate use Z79.899 [facility] [place] [id number] [place] [address] Jul, Generalized anxiety disorder F41.1 [facility] [place] [id number] [place] [address] Jul, Generalized anxiety disorder F41.1 [facility] [place] [id number] [place] [address] Jul, Primary osteoarthritis invol ving multiple joints M15.0 [facility] [place] [address] [id number] [address] [place] [address] Jun, Generalized anxiety disorder F41.1 [facility] [place] [address] [facility] [id number] [address] [place] [address] Jun, [facility] [place] [address] [facility] [id number] [address] [place] [phone] Jun, Mixed hyperlipidemia E78.2 [facility] [place] [address] [facility] [id number] [address] [place] [address] Jun, Generalized anxiety disorder F41.1 [facility] [place] [address] [facility] [id number] [address] [place] [address] Jun, Generalized anxiety disorder F41.1 ; Major depressive disorder, recurrent episode, mild degree F33.0 and Habitual self-excoriation F42.4 [place] [address] [facility] [id number] [address] [place] [address] May, [facility] [place] [address] [facility] [id number] [address] [place] [address] May, Generalized anxiety disorder F41.1 [facility] [place] [address] [facility] [id number] [address] [place] [address] May, Generalized anxiety disorder F41.1 [facility] [place] [address] [facility] [id number] [address] [place] [address] May, Primary osteoarthritis invol ving multiple joints M15.0 [facility] [place] [address] [id number] [address] [place] [address] Apr, Major depressive disorder, r ecurrent episode, mild degree F33.0 ; Generalized anxiety disorder F41.1 and Excoriation, neurotic L98.1 [facility] [place] [address] [facility] [id number] [address] [place] [address] Apr, Primary osteoarthritis invol ving multiple joints M15.0 [facility] [place] [address] [facility] [id number] [address] [place] [address] Apr, Essential hypertension I10 a nd Mixed hyperlipidemia E78.2 [facility] [place] [address] [id number] [address] [place] [address] Apr, Generalized anxiety disorder F41.1 ; Major depressive disorder, recurrent episode, mild degree F33.0 and Habitual self-excoriation F42.4 [facility] [place] [address] [id number] [address] [place] [address] Mar, Generalized anxiety disorder F41.1 ; Major depressive disorder, recurrent episode, mild degree F33.0 and Habitual self-excoriation F42.4 [facility] [place] [address] [id number] [address] [place] [address] Mar, Skin lesion L98.9 [facility] [place] [address] [id number] [address] [place] [address] Mar, Primary osteoarthritis invol ving multiple joints M15.0 [facility] [place] [address] [id number] [address] [place] [address] Mar, [facility] [place] [address] [id number] [address] [place] [address] Mar, [facility] [place] [address] [id number] [address] [place] [address] Feb, Major depressive disorder, r ecurrent episode, mild degree F33.0 ; Generalized anxiety disorder F41.1 and Excoriation, neurotic L98.1 [facility] [place] [address] [id number] [address] [place] [address] Feb, Generalized anxiety disorder F41.1 [facility] [place] [address] [id number] [address] [place] [address] Feb, Primary osteoarthritis invol ving multiple joints M15.0 [facility] [place] [address] [id number] [address] [place] [address] Jan, [facility] [place] [address] [id number] [address] [place] [address] 21 [place], 2017 Essential hypertension I10 ; Splenic artery aneurysm I72.8 ; Liver mass R16.0 ; Restrictive lung disease J98.4 ; Primary osteoarthritis involving multiple joints M15.0 ; Mixed hyperlipidemia E78.2 ; Bilateral carpal tunnel syndrome G56.03 ; Body mass index (bmi) 50-59.9 , adult Z68.43 and History of tobacco use Z87.891 [facility] [place] [address] [id number] [address] [place] [address] Jan, Major depressive disorder, r ecurrent episode, mild degree F33.0 and Generalized anxiety disorder F41.1 [facility] [place] [address] [id number] [address] [place] [address] Jan, [facility] [place] [address] [id number] [address] [place] [address] Jan, Generalized anxiety disorder F41.1 and Major depressive disorder, recurrent episode, mild degree F33.0 [facility] [place] [address] [id number] [address] [place] [address] Dec, Primary osteoarthritis invol ving multiple joints M15.0 [facility] [place] [address] [id number] [address] [place] [address] Dec, Generalized anxiety disorder F41.1 [facility] [place] [address] [id number] [address] [place] [address] Dec, [facility] [place] [address] [id number] [address] [place] [address] Dec, Major depressive disorder, r ecurrent episode, mild degree F33.0 and Generalized anxiety disorder F41.1 [facility] [place] [address] [id number] [address] [place] [address] Dec, Generalized anxiety disorder F41.1 and Major depressive disorder, recurrent episode, mild degree F33.0 [facility] [place] [address] [id number] [address] [place] [address] November, Mild major depression F32.0 and Primary osteoarthritis involving multiple joints M15.0 [facility] [place] [id number] [place] [address] November, Major depressive disorder, r ecurrent episode, mild degree F33.0 and Generalized anxiety disorder F41.1 [place] [address] [address] November, Primary osteoarthritis invol ving multiple joints M15.0 ; Essential hypertension I10 ; Prediabetes R73.09 ; Mixed hyperlipidemia E78.2 ; Chronic prescription benzodiazepine use Z79.899 ; Chronic prescription opiate use Z79.899 ; Tobacco use Z72.0 ; Bilateral carpal tunnel syndrome G56.03 and Body mass index (bmi) 50-59.9 , adult Z68.[address] [address] November, Primary osteoarthritis invol ving multiple joints M15.0 and Mild major depression F32.[address] [address] Oct, [address] [address] Oct, Primary osteoarthritis invol ving multiple joints M15.0 ; Essential hypertension I10 ; Prediabetes R73.09 ; Chronic prescription benzodiazepine use Z79.899 ; Chronic prescription opiate use Z79.899 ; Tobacco use Z72.0 ; Mixed hyperlipidemia E78.2 ; Bilateral carpal tunnel syndrome G56.03 ; Body mass index (bmi) 50-59.9 , adult Z68.43 and Encounter for immunization Z23 [place] [id number] [place] [address] Oct, Major depressive disorder, r ecurrent episode, mild degree F33.0 and Generalized anxiety disorder F41.1 [place] [address] [address] Oct, [place] [address] [address] Oct, [address] [place] [address] [place] [address] Sep, Mild major depression F32.0 [facility] [place] [address] [address] Sep, [facility] [place] [id number] [place] [address] Sep, Mild major depression F32.0 and Generalized anxiety disorder F41.1 [facility] [place] [address] [address] Sep, Paresthesia of both hands R2 0.2 and Cervical radiculopathy M54.12 [facility] [place] [address] [address] Sep, [facility] [place] [address] [address] Sep, [facility] [place] [address] [address] Aug, Paresthesia of both hands R2 0.2 and Neck pain M54.2 [facility] [place] [address] [address] Aug, [facility] [place] [id number] [place] [address] Jul, Neck pain M54.2 and Paresthe eddie of both hands R20.2 [facility] [place] [id number] [place] [address] Jul, Proteinuria, unspecified typ e R80.9 [place] [id number] [place] [address] Jul, Proteinuria, unspecified typ e R80.9 [facility] [place] [id number] [place] [address] Jul, [facility] [place] [address] [address] Jul, Other specified transient ce rebral ischemias G45.8 [facility] [place] [address] [facility] [id number] [address] [place] [address] Jun, Diastolic dysfunction I51.9 [facility] [place] [address] [facility] [id number] [address] [place] [address] 08 Jun, 2016 Diastolic dysfunction I51.9 [facility] [place] [address] [facility] [id number] [address] [place] [address] Jun, Major depressive disorder, s david episode, unspecified F32.9 and Anxiety disorder, unspecified F41.9 [facility] [place] [address] [facility] [id number] [address] [place] [address] Jun, [facility] [place] [address] [facility] [id number] [address] [place] [address] Jun, [facility] [place] [id number] [place] [address] May, Moderate major depression F3 2.1 and Generalized anxiety disorder F41.1 [facility] [place] [address] [facility] [id number] [address] [place] [address] 16 May, 2016 Major depressive disorder, s david episode, unspecified F32.9 and Anxiety disorder, unspecified F41.9 [facility] [place] [id number] [place] [address] 15 May, 2016 [facility] [place] [address] [facility] [id number] [address] [place] [address] 14 May, 2016 Liver enzyme elevation R74.8 [facility] [place] [address] [id number] [address] [place] [address] 14 May, 2016 Liver enzyme elevation R74.8 [place] [id number] [place] [address] 10 May, 2016 Shortness of breath on exert ion R06.02 ; Essential hypertension I10 ; Mixed hyperlipidemia E78.2 and Tobacco use Z72.0 [place] [id number] [place] [phone] May, [facility] [place] [address] [id number] [address] [place] [address] May, [facility] [place] [address] [id number] [address] [place] [address] Apr, Anxiety F41.9 and Depression F32.9 [facility] [place] [address] [id number] [address] [place] [address] Apr, [facility] [place] [address] [id number] [address] [place] [address] Apr, [facility] [place] [address] [id number] [address] [place] [address] Mar, Depression F32.9 and Anxiety F41.9 [facility] [place] [address] [id number] [address] [place] [address] Mar, Anxiety F41.9 and Depression F32.9 [facility] [place] [address] [id number] [address] [place] [address] Mar, Well woman exam (no gynecolo gical exam) Z00.00 [facility] [place] [address] [id number] [address] [place] [address] Mar, [facility] [place] [address] [id number] [address] [place] [address] Mar, [facility] [address] [id number] [address] [place] [id number] Feb, Dental caries K02.9 [facility] [place] [address] [id number] [address] [place] [address] Feb, [facility] [place] [address] [id number] [address] [place] [address] Feb, Anxiety F41.9 and Depression F32.9 [facility] [address] [id number] [address] [place] [id number] Feb, Dental examination Z01.20 [facility] [place] [address] [id number] [address] [place] [address] Feb, [facility] [place] [address] [id number] [address] [place] [address] Feb, [facility] [place] [address] [id number] [address] [place] [address] Feb, Anxiety F41.9 and Depression F32.9 [facility] [place] [address] [id number] [address] [place] [address] Jan, Severe episode of recurrent major depressive disorder, without psychotic features F33.2 and Anxiety disorder, unspecified F41.9 [facility] [place] [address] [id number] [address] [place] [address] Jan, [facility] [place] [address] [id number] [address] [place] [address] Dec, [facility] [place] [address] [id number] [address] [place] [address] Dec, Anxiety F41.9 and Depression F32.9 [facility] [place] [address] [id number] [address] [place] [address] Dec, Other specified transient ce rebral ischemias G45.8 and Nocturnal hypoxia G47.34 [facility] [place] [address] [id number] [address] [place] [address] Dec, [facility] [place] [address] [id number] [address] [place] [address] Dec, Other specified transient ce rebral ischemias G45.8 [facility] [place] [address] [id number] [address] [place] [address] 16 Dec, 2015 Severe episode of recurrent major depressive disorder, without psychotic features F33.2 and Anxiety disorder, unspecified F41.9 [facility] [place] [address] [id number] [address] [place] [address] Dec, [facility] [place] [address] [address] 13 Dec, 2015 Anxiety F41.9 and Depression F32.9 [place] [address] [address] Dec, Anxiety F41.9 and Depression F32.9 [place] [address] [address] Dec, [place] [address] [address] November, Anxiety F41.9 and Depression F32.[address] [address] November, Severe episode of recurrent major depressive disorder, without psychotic features F33.[address] [address] November, Mixed hyperlipidemia E78.2 [place] [address] [address] November, Anxiety F41.9 and Depression F32.[address] [address] November, Prediabetes R73.09 ; Essenti al hypertension I10 ; Anxiety F41.9 ; Depression F32.9 ; Gastroesophageal reflux disease, esophagitis presence not specified K21.9 ; Primary osteoarthritis involving multiple joints M15.0 ; History of renal cell cancer Z85.528 ; Postnasal drip R09.82 ; Allergic rhinitis, unspecified J30.9 and Tobacco use Z72.0 [place] [address] [address] Oct, Anxiety F41.9 and Depression F32.9 [place] [address] [address] Oct, [place] [address] [address] Oct, [facility] [place] [address] [facility] [id number] [address] [place] [address] 14 Sep, 2015 Splenic artery aneurysm I72. 8 [facility] [place] [address] [facility] [id number] [address] [place] [address] 10 Sep, 2015 Depression F32.9 ; Anxiety F 41.9 ; Chronic prescription benzodiazepine use Z79.899 and Splenic artery aneurysm I72.8 [facility] [place] [address] [facility] [id number] [address] [place] [address] 10 Sep, 2015 Depression F32.9 and Anxiety F41.9 [facility] [place] [address] [place] [id number] [place] [address] Sep, [facility] [place] [address] [id number] [place] [address] 18 Aug, 2015 Dehydration E86.0 ; Diarrhea R19.7 ; Nausea R11.0 and Generalized abdominal pain R10.84 [facility] [place] [id number] [place] [address] Aug, [facility] [place] [address] [address] Jul, Depression F32.9 [facility] [place] [address] [place] [id number] [address] [place] [phone] Jul, [facility] [place] [address] [place] [place] [id number] [address] [place] [phone] Jul, Anxiety F41.9 and Depression F32.9 [facility], [place] [address] [place] [place] [id number] [address] [place] [id number] Jul, [facility], [place] [address] [place] [place] [id number] [address] [place] [id number] Jun, Epigastric pain R10.13 [facility], [place] [address] [place] [place] [id number] [address] [place] [phone] Jun, [facility], [place] [address] [place] [address] Jun, [facility], [place] [address] [id number] [address] [place] [phone] May, [facility], [place] [address] [facility] [id number] [address] [place] [phone] May, [facility], [place] [address] [facility] [id number] [address] [place] [id number] Apr, [facility], [place] [address] [facility] [id number] [address] [place] [phone] Mar, Anxiety state, unspecified 3 00.00 ; Depression 311 ; Prediabetes 790.29 ; Generalized osteoarthrosis, involving multiple sites 715.09 and Hypertension 401.9 [facility], [place] [address] [facility] [id number] [address] [place] [id number] Mar, [facility], [place] [address] [facility] [id number] [address] [place] [id number] Feb, [facility] [facility] [place] [address] [facility] [id number] [address] [place] [id number] Jan, [facility], [place] [address] [facility] [id number] [address] [place] [id number] Jan, [facility] [place] [address] [facility] [id number] [address] [place] [id number] Jan, Generalized osteoarthrosis, involving multiple sites 715.09 [facility], [place] [address] [facility] [id number] [address] [place] [id number] 07 Jan, 2015 Hx of renal cell cancer V10. 52 [facility], [place] [address] [facility] [id number] [address] [place] [phone] 30 Dec, 2014 Generalized osteoarthrosis, involving multiple sites 715.09 and Hx of renal cell cancer V10.52 [facility], [place] [address] [facility] [id number] [address] [place] [phone] Dec, [facility], [place] [address] [facility] [id number] [address] [place] [phone] Dec, [facility], [place] [address] [id number] [address] [place] [id number] November, [facility], [place] [address] [id number] [address] [place] [phone] Oct, [facility], [place] [address] [id number] [address] [place] [id number] Oct, [facility], [place] [address] [id number] [address] [place] [id number] Sep, [facility], [place] [address] [id number] [address] [place] [phone] Sep, [facility], [place] [address] [id number] [address] [place] [phone] Sep, [facility], [place] [address] [id number] [address] [place] [phone] Sep, [facility], [place] [address] [id number] [address] [place] [phone] Aug, [facility], [place] [address] [id number] [address] [place] [id number] Aug, IMMUNIZATIONS No Known Immunizations SOCIAL HISTORY [...]
--- OUTSIDE RECORDS SUMMARY | 2020-02-08 07:26 | XMS REPORT ---
Author Author Emilee MAY Organization [facility] Address [address] [place] [address] Care Team Providers Care Television Production Assistant Name Role Phone LALOJEZALBANIA Unavailable PROBLEMS Type Condition ICD9-CM Code IEJ54-EC Code Onset Dates Condition S tatus SNOMED Code Problem Mixed hyperlipidemia E78.2 Active 056022587 Problem Fatty liver K76.0 Active 53058572 7 Problem Obstructive sleep apnea G47.33 Active 46557487 Problem Allergic rhinitis, unspecified J30.9 Active 84940353 Problem Essential hypertension I10 Active 55603562 Problem History of renal cell cancer Z85.528 A ctive 758425271 Problem Prediabetes R73.09 Active 0184804 Problem Diastolic dysfunction I51.9 Active 3161004 Problem Body mass index (bmi) 50-59.9 , adult Z68.43 Active 684421637 Problem Paresthesia of both hands R20.2 Acti ve 010178259 Problem Habitual self-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 Acti ve 942835050 Problem BMI 50.0-59.9, adult Z68.43 Active 251471156 Problem Restrictive lung disease J98.4 Activ e 21526703 Problem Splenic artery aneurysm I72.8 Active 22302157 Problem Liver mass R16.0 Active 922238761 Problem Generalized anxiety disorder F41.1 A ctive 06555717 Problem Major depressive disorder, recurrent episode, mild degree F33.0 Active 611377359 Problem Excoriation, neurotic L98.1 Active 34322228 Problem History of tobacco use Z87.891 Active 0531792390384 Problem Primary osteoarthritis involving multiple joints M 15.0 Active 542521031 Problem Isolated proteinuria without specific morphologic lesion R80.0 Active 51359561 Problem 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 Active 236748897 Problem Pulmonary emphysema, unspecified emphysema type J4 3.9 Active 89381967 Problem Chronic prescription opiate use Z79.899 Active 587711278 Problem Tobacco use Z72.0 Active 76148978 0 Problem Bilateral carpal tunnel syndrome G56.03 Active 49756817 Problem Chronic prescription benzodiazepine use Z79.899 Active 301827851 ALLERGIES No Information ENCOUNTERS Encounter Location Date Diagnosis [facility] [address] [id number] [address] [place] [address] Feb, [facility] [address] [address] Dec, [facility] [address] [address] Dec, [facility] [address] [address] November, [facility] [address] [address] November, [facility] [address] [address] November, Pulmonary emphysema, unspeci fied emphysema type J43.9 ; Restrictive lung disease J98.4 ; BMI 50.0-59.9, adult Z68.43 ; History of renal cell cancer Z85.528 ; Essential hypertension I10 ; Mixed hyperlipidemia E78.2 and Fatty liver K76.0 [facility] [id number] [place] [address] November, Generalized anxiety disorder F41.1 [facility] [address] [address] November, Generalized anxiety disorder F41.1 and Major depressive disorder, recurrent episode, mild degree F33.0 [facility] [address] [address] November, Generalized anxiety disorder F41.1 ; Major depressive disorder, recurrent episode, mild degree F33.0 and Habitual self-excoriation F42.4 [facility] [id number] [place] [address] November, [facility] [address] [facility] [place] [id number] [address] [place] [address] Oct, Generalized anxiety disorder F41.1 [facility] [address] [id number] [address] [place] [address] Oct, [facility] [id number] [place] [address] Oct, Influenza-like illness R69 [facility] [id number] [place] [address] Sep, Influenza-like illness R69 [facility] [id number] [place] [address] Sep, Generalized anxiety disorder F41.1 [facility] [address] [id number] [address] [place] [address] Sep, [facility] [address] [address] Aug, [facility] [id number] [place] [address] Aug, [facility] [address] [address] Aug, Generalized anxiety disorder F41.1 [facility] [address] [id number] [address] [place] [address] Aug, Influenza-like illness R69 a nd BMI 50.0-59.9, adult Z68.43 [facility] [address] [id number] [address] [place] [address] Jul, 2018 Fatty liver K76.0 ; Restrict jean-paul lung disease J98.4 ; Diastolic dysfunction I51.9 ; Body mass index (bmi) 50-59.9 , adult Z68.43 and Chronic prescription opiate use Z79.899 [facility] [id number] [place] [address] Jul, Generalized anxiety disorder F41.1 [facility] [address] [id number] [address] [place] [address] Jul, Generalized anxiety disorder F41.1 [facility] [address] [id number] [address] [place] [address] Jul, Primary osteoarthritis invol ving multiple joints M15.0 [facility] [address] [id number] [address] [place] [address] Jun, Generalized anxiety disorder F41.1 [facility] [address] [id number] [address] [place] [address] Jun, [facility] [address] [id number] [address] [place] [address] Jun, Mixed hyperlipidemia E78.2 [facility] [address] [facility] [place] [id number] [address] [place] [address] Jun, Generalized anxiety disorder F41.1 [facility] [address] [id number] [address] [place] [address] Jun, Generalized anxiety disorder F41.1 ; Major depressive disorder, recurrent episode, mild degree F33.0 and Habitual self-excoriation F42.4 [facility] [address] [id number] [address] [place] [address] May, [facility] [address] [id number] [address] [place] [address] May, Generalized anxiety disorder F41.1 [facility] [address] [id number] [address] [place] [address] May, Generalized anxiety disorder F41.1 [facility] [address] [id number] [address] [place] [address] May, Primary osteoarthritis invol ving multiple joints M15.0 [facility] [address] [id number] [address] [place] [address] Apr, Major depressive disorder, r ecurrent episode, mild degree F33.0 ; Generalized anxiety disorder F41.1 and Excoriation, neurotic L98.1 [facility] [address] [id number] [address] [place] [address] 04 Apr, 2017 Primary osteoarthritis invol ving multiple joints M15.0 [facility] [address] [id number] [address] [place] [address] 03 Apr, 2017 Essential hypertension I10 a nd Mixed hyperlipidemia E78.2 [facility] [address] [id number] [address] [place] [address] Apr, Generalized anxiety disorder F41.1 ; Major depressive disorder, recurrent episode, mild degree F33.0 and Habitual self-excoriation F42.4 [facility] [address] [id number] [address] [place] [address] 06 Mar, 2017 Generalized anxiety disorder F41.1 ; Major depressive disorder, recurrent episode, mild degree F33.0 and Habitual self-excoriation F42.4 [facility] [address] [id number] [address] [place] [address] 05 Mar, 2017 Skin lesion L98.9 [facility] [address] [id number] [address] [place] [address] 05 Mar, 2017 Primary osteoarthritis invol ving multiple joints M15.0 [facility] [address] [id number] [address] [place] [address] Mar, [facility] [address] [id number] [address] [place] [address] Mar, [facility] [address] [id number] [address] [place] [address] Feb, Major depressive disorder, r ecurrent episode, mild degree F33.0 ; Generalized anxiety disorder F41.1 and Excoriation, neurotic L98.1 [facility] [address] [id number] [address] [place] [address] Feb, Generalized anxiety disorder F41.1 [facility] [address] [id number] [address] [place] [address] Feb, Primary osteoarthritis invol ving multiple joints M15.0 [facility] [address] [facility] [place] [id number] [address] [place] [address] Jan, [facility] [address] [facility] [place] [id number] [address] [place] [address] Jan, Essential hypertension I10 ; Splenic artery aneurysm I72.8 ; Liver mass R16.0 ; Restrictive lung disease J98.4 ; Primary osteoarthritis involving multiple joints M15.0 ; Mixed hyperlipidemia E78.2 ; Bilateral carpal tunnel syndrome G56.03 ; Body mass index (bmi) 50-59.9 , adult Z68.43 and History of tobacco use Z87.891 [facility] [address] [facility] [place] [id number] [address] [place] [address] Jan, Major depressive disorder, r ecurrent episode, mild degree F33.0 and Generalized anxiety disorder F41.1 [facility] [address] [id number] [address] [place] [address] Jan, [facility] [address] [facility] [place] [id number] [address] [place] [address] Jan, Generalized anxiety disorder F41.1 and Major depressive disorder, recurrent episode, mild degree F33.0 [facility] [address] [id number] [address] [place] [address] Dec, Primary osteoarthritis invol ving multiple joints M15.0 [facility] [address] [facility] [place] [id number] [address] [place] [address] Dec, Generalized anxiety disorder F41.1 [facility] [address] [facility] [place] [id number] [address] [place] [address] Dec, [facility] [address] [facility] [place] [id number] [address] [place] [address] Dec, Major depressive disorder, r ecurrent episode, mild degree F33.0 and Generalized anxiety disorder F41.1 [facility] [address] [id number] [address] [place] [address] Dec, Generalized anxiety disorder F41.1 and Major depressive disorder, recurrent episode, mild degree F33.0 [facility] [place] [id number] [id number] [address] [place] [address] November, Mild major depression F32.0 and Primary osteoarthritis involving multiple joints M15.0 [facility] [address] [id number] [address] [place] [address] November, Major depressive disorder, r ecurrent episode, mild degree F33.0 and Generalized anxiety disorder F41.1 [facility] [address] [id number] [address] [place] [address] November, Primary osteoarthritis invol ving multiple joints M15.0 ; Essential hypertension I10 ; Prediabetes R73.09 ; Mixed hyperlipidemia E78.2 ; Chronic prescription benzodiazepine use Z79.899 ; Chronic prescription opiate use Z79.899 ; Tobacco use Z72.0 ; Bilateral carpal tunnel syndrome G56.03 and Body mass index (bmi) 50-59.9 , adult Z68.43 [facility] [id number] [place] [address] November, Primary osteoarthritis invol ving multiple joints M15.0 and Mild major depression F32.0 [facility] [id number] [id number] [address] [place] [address] Oct, [facility] [address] [id number] [address] [place] [address] Oct, Primary osteoarthritis invol ving multiple joints M15.0 ; Essential hypertension I10 ; Prediabetes R73.09 ; Chronic prescription benzodiazepine use Z79.899 ; Chronic prescription opiate use Z79.899 ; Tobacco use Z72.0 ; Mixed hyperlipidemia E78.2 ; Bilateral carpal tunnel syndrome G56.03 ; Body mass index (bmi) 50-59.9 , adult Z68.43 and Encounter for immunization Z23 [facility] [address] [id number] [address] [place] [address] Oct, Major depressive disorder, r ecurrent episode, mild degree F33.0 and Generalized anxiety disorder F41.1 [facility] [address] [id number] [address] [place] [address] Oct, [facility] [address] [id number] [address] [place] [address] Oct, [facility] [address] [id number] [address] [place] [address] Sep, Mild major depression F32.0 [facility] [address] [id number] [address] [place] [address] Sep, [facility] [address] [id number] [address] [place] [address] Sep, Mild major depression F32.0 and Generalized anxiety disorder F41.1 [facility] [address] [facility] [place] [id number] [address] [place] [address] Sep, Paresthesia of both hands R2 0.2 and Cervical radiculopathy M54.12 [facility] [address] [id number] [address] [place] [address] Sep, [facility] [address] [facility] [place] [id number] [address] [place] [address] Sep, [facility] [address] [facility] [place] [id number] [address] [place] [address] Aug, Paresthesia of both hands R2 0.2 and Neck pain M54.2 [facility] [address] [id number] [address] [place] [address] Aug, [facility] [address] [facility] [place] [id number] [address] [place] [address] Jul, Neck pain M54.2 and Paresthe eddie of both hands R20.2 [facility] [address] [facility] [place] [id number] [address] [place] [address] Jul, Proteinuria, unspecified typ e R80.9 [facility] [address] [facility] [place] [id number] [address] [place] [address] Jul, Proteinuria, unspecified typ e R80.9 [facility] [address] [facility] [place] [id number] [address] [place] [address] Jul, [facility] [place] [address] [facility] [place] [id number] [address] [place] [address] Jul, Other specified transient ce rebral ischemias G45.8 [facility] [address] [facility] [place] [id number] [address] [place] [address] Jun, Diastolic dysfunction I51.9 [facility] [address] [facility] [place] [id number] [address] [place] [address] Jun, Diastolic dysfunction I51.9 [facility] [address] [id number] [address] [place] [address] Jun, Major depressive disorder, s david episode, unspecified F32.9 and Anxiety disorder, unspecified F41.9 [facility] [address] [id number] [address] [place] [address] Jun, [facility] [id number] [place] [address] Jun, [facility] [id number] [place] [address] May, Moderate major depression F3 2.1 and Generalized anxiety disorder F41.1 [facility] [place] [address] [facility] [place] [id number] [address] [place] [address] May, Major depressive disorder, s david episode, unspecified F32.9 and Anxiety disorder, unspecified F41.9 [facility] [address] [id number] [address] [place] [address] May, [facility] [address] [id number] [address] [place] [address] 14 May, 2016 Liver enzyme elevation R74.8 [facility] [place] [address] [facility] [place] [id number] [address] [place] [address] 14 May, 2016 Liver enzyme elevation R74.8 [facility] [id number] [place] [address] 10 May, 2016 Shortness of breath on exert ion R06.02 ; Essential hypertension I10 ; Mixed hyperlipidemia E78.2 and Tobacco use Z72.0 [facility] [address] [facility] [place] [id number] [place] [address] May, [facility] [id number] [place] [address] May, [facility] [address] [address] Apr, Anxiety F41.9 and Depression F32.9 [facility] [address] [address] Apr, [facility] [address] [address] Apr, [facility] [address] [address] Mar, Depression F32.9 and Anxiety F41.9 [facility] [address] [address] 08 Mar, 2016 Anxiety F41.9 and Depression F32.9 [facility] [address] [address] Mar, Well woman exam (no gynecolo gical exam) Z00.00 [facility] [address] [id number] [address] [place] [address] Mar, [facility] [id number] [place] [address] Mar, [facility] [address] [id number] [address] [place] [id number] Feb, Dental caries K02.9 [facility] [address] [place] [address] Feb, [facility] [address] [id number] [address] [place] [address] Feb, Anxiety F41.9 and Depression F32.9 [facility] [address] [id number] [address] [place] [address] [id number] Feb, Dental examination Z01.20 [facility] [address] [id number] [address] [place] [address] Feb, [facility] [address] [id number] [address] [place] [address] Feb, [facility] [address] [id number] [address] [place] [address] Feb, Anxiety F41.9 and Depression F32.9 [facility] [address] [facility] [place] [id number] [address] [place] [address] Jan, Severe episode of recurrent major depressive disorder, without psychotic features F33.2 and Anxiety disorder, unspecified F41.9 [facility] [address] [id number] [address] [place] [address] Jan, [facility] [address] [facility] [place] [id number] [address] [place] [address] Dec, [facility] [address] [id number] [address] [place] [address] Dec, Anxiety F41.9 and Depression F32.9 [facility] [address] [id number] [address] [place] [address] Dec, Other specified transient ce rebral ischemias G45.8 and Nocturnal hypoxia G47.34 [facility] [address] [id number] [address] [place] [address] Dec, [facility] [address] [facility] [place] [id number] [address] [place] [address] Dec, Other specified transient ce rebral ischemias G45.8 [facility] [address] [id number] [address] [place] [address] 16 Dec, 2015 Severe episode of recurrent major depressive disorder, without psychotic features F33.2 and Anxiety disorder, unspecified F41.9 [facility] [place] [address] [place] [address] 13 Dec, 2015 [place] [address] [address] 13 Dec, 2015 Anxiety F41.9 and Depression F32.9 [facility] [address] [address] 07 Dec, 2015 Anxiety F41.9 and Depression F32.9 [facility] [address] [address] Dec, [facility] [address] [address] November, Anxiety F41.9 and Depression F32.9 [facility] [address] [address] November, Severe episode of recurrent major depressive disorder, without psychotic features F33.2 [facility] [address] [address] November, Mixed hyperlipidemia E78.2 [facility] [address] [address] November, Anxiety F41.9 and Depression F32.9 [place] [facility] [address] [address] 05 Nov, 2015 Prediabetes R73.09 ; Essenti al hypertension I10 ; Anxiety F41.9 ; Depression F32.9 ; Gastroesophageal reflux disease, esophagitis presence not specified K21.9 ; Primary osteoarthritis involving multiple joints M15.0 ; History of renal cell cancer Z85.528 ; Postnasal drip R09.82 ; Allergic rhinitis, unspecified J30.9 and Tobacco use Z72.0 [facility] [address] [id number] [address] [place] [address] 11 Oct, 2015 Anxiety F41.9 and Depression F32.9 [facility] [address] [id number] [address] [place] [address] 07 Oct, 2015 [facility] [address] [id number] [address] [place] [address] Oct, [facility] [address] [address] 14 Sep, 2015 Splenic artery aneurysm I72. 8 [facility] [address] [address] 10 Sep, 2015 Depression F32.9 ; Anxiety F 41.9 ; Chronic prescription benzodiazepine use Z79.899 and Splenic artery aneurysm I72.8 [place] [address] [id number] 10 Sep, 2015 Depression F32.9 and Anxiety F41.9 [facility] [address] [id number] [address] [place] [id number] Sep, [facility] [address] [id number] 18 Aug, 2015 Dehydration E86.0 ; Diarrhea R19.7 ; Nausea R11.0 and Generalized abdominal pain R10.84 [place] [address] [id number] Aug, [facility] [address] [id number] [address] [place] [id number] Jul, Depression F32.9 [facility] [address] [id number] [address] [place] [id number] Jul, [facility] [id number] [place] [phone] Jul, Anxiety F41.9 and Depression F32.9 [facility] [address] [id number] [address] [place] [phone] Jul, [facility] [address] [facility] [place] [id number] [address] [place] [id number] Jun, Epigastric pain R10.13 [facility] [address] [id number] [address] [place] [id number] Jun, [facility] [address] [facility] [place] [id number] [address] [place] [phone] Jun, [facility] [address] [id number] [address] [place] [id number] May, [facility] [address] [id number] [address] [place] [phone] May, [facility] [address] [facility] [place] [id number] [address] [place] [id number] Apr, [facility] [facility] [address] [facility] [place] [id number] [address] [place] [id number] Mar, Anxiety state, unspecified 3 00.00 ; Depression 311 ; Prediabetes 790.29 ; Generalized osteoarthrosis, involving multiple sites 715.09 and Hypertension 401.9 [facility] [address] [facility] [place] [id number] [address] [place] [id number] Mar, [facility] [address] [facility] [place] [id number] [address] [place] [id number] Feb, [facility] [address] [facility] [place] [id number] [address] [place] [phone] Jan, [facility] [address] [id number] [address] [place] [id number] Jan, [facility] [address] [facility] [place] [id number] [address] [place] [id number] Jan, Generalized osteoarthrosis, involving multiple sites 715.09 [facility] [address] [facility] [place] [id number] [address] [place] [id number] Jan, Hx of renal cell cancer V10. 52 [facility] [address] [id number] [address] [place] [id number] Dec, Generalized osteoarthrosis, involving multiple sites 715.09 and Hx of renal cell cancer V10.52 [facility] [address] [id number] [address] [place] [id number] Dec, [facility] [address] [id number] [address] [place] [phone] Dec, [facility] [address] [id number] [address] [place] [id number] November, [facility] [address] [id number] [address] [place] [phone] Oct, [facility] [address] [id number] [address] [place] [id number] Oct, [facility] [address] [id number] [address] [place] [phone] Sep, [facility] [address] [id number] [address] [place] [phone] Sep, [facility] [address] [id number] [address] [place] [id number] Sep, [facility] [address] [id number] [address] [place] [id number] Sep, [facility] [address] [id number] [address] [place] [phone] Aug, [facility] [address] [id number] [address] [place] [id number] Aug, IMMUNIZATIONS No Known Immunizations SOCIAL HISTORY [...]
--- OUTSIDE RECORDS SUMMARY | 2020-02-08 07:26 | XMS REPORT ---
Author Author Emilee CASSIDY Organization [facility] Address [address] [place] [address] Care Team Providers [employer] Name Role Phone LOVELY CASSIDY Unavailable PROBLEMS Type Condition ICD9-CM Code [id number] Code Onset Dates Condition S tatus SNOMED Code Problem Mixed hyperlipidemia E78.2 Active 982190109 Problem Fatty liver K76.0 Active 45446171 7 Problem Obstructive sleep apnea G47.33 Active 71723141 Problem Allergic rhinitis, unspecified J30.9 Active 89103985 Problem Essential hypertension I10 Active 36097831 Problem History of renal cell cancer Z85.528 A ctive 172975459 Problem Prediabetes R73.09 Active 2745594 Problem Diastolic dysfunction I51.9 Active 7726257 Problem Body mass index (bmi) 50-59.9 , adult Z68.43 Active 726177214 Problem Paresthesia of both hands R20.2 Acti ve 418650061 Problem Habitual self-excoriation F42.4 Acti ve 495971446 Problem BMI 50.0-59.9, adult Z68.43 Active 130688851 Problem Restrictive lung disease J98.4 Activ e 84013035 Problem Splenic artery aneurysm I72.8 Active 06250007 Problem Liver mass R16.0 Active 251938698 Problem Generalized anxiety disorder F41.1 A ctive 64409240 Problem Major depressive disorder, recurrent episode, mild degree F33.0 Active 515427165 Problem Excoriation, neurotic L98.1 Active 69190655 Problem History of tobacco use Z87.891 Active 0177719619869 Problem Primary osteoarthritis involving multiple joints M 15.0 Active 764474374 Problem Isolated proteinuria without specific morphologic lesion R80.0 Active 56662052 Problem 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 Active 331169150 Problem Pulmonary emphysema, unspecified emphysema type J4 3.9 Active 19652797 Problem Chronic prescription opiate use Z79.899 Active 133994364 Problem Tobacco use Z72.0 Active 42738163 0 Problem Bilateral carpal tunnel syndrome G56.03 Active 67322367 Problem Chronic prescription benzodiazepine use Z79.899 Active 526636540 ALLERGIES No Information ENCOUNTERS Encounter Location Date Diagnosis [facility] [address] [id number] [address] [place] [address] Feb, [facility] [id number] [place] [address] Dec, [facility] [id number] [place] [address] Dec, [facility] [address] [address] November, [facility] [address] [address] November, [facility] [address] [address] November, Pulmonary emphysema, unspeci fied emphysema type J43.9 ; Restrictive lung disease J98.4 ; BMI 50.0-59.9, adult Z68.43 ; History of renal cell cancer Z85.528 ; Essential hypertension I10 ; Mixed hyperlipidemia E78.2 and Fatty liver K76.0 [facility] [id number] [place] [address] November, Generalized anxiety disorder F41.1 [place] [id number] [place] [address] November, Generalized anxiety disorder F41.1 and Major depressive disorder, recurrent episode, mild degree F33.0 [place] [address] [address] November, Generalized anxiety disorder F41.1 ; Major depressive disorder, recurrent episode, mild degree F33.0 and Habitual self-excoriation F42.4 [facility] [id number] [place] [address] November, [facility] [address] [facility] [id number] [address] [place] [address] Oct, Generalized anxiety disorder F41.1 [facility] [address] [facility] [id number] [address] [place] [address] Oct, [facility] [address] [facility] [id number] [address] [place] [address] Oct, Influenza-like illness R69 [facility] [address] [facility] [id number] [address] [place] [address] Sep, Influenza-like illness R69 [facility] [address] [facility] [id number] [address] [place] [address] Sep, Generalized anxiety disorder F41.1 [facility] [address] [facility] [id number] [address] [place] [address] Sep, [facility] [id number] [place] [address] Aug, [facility] [address] [facility] [id number] [address] [place] [address] Aug, [facility] [id number] [place] [address] Aug, Generalized anxiety disorder F41.1 [facility] [address] [facility] [id number] [address] [place] [address] Aug, Influenza-like illness R69 a nd BMI 50.0-59.9, adult Z68.43 [facility] [address] [facility] [id number] [address] [place] [address] Jul, 2018 Fatty liver K76.0 ; Restrict jean-paul lung disease J98.4 ; Diastolic dysfunction I51.9 ; Body mass index (bmi) 50-59.9 , adult Z68.43 and Chronic prescription opiate use Z79.899 [facility] [address] [facility] [id number] [address] [place] [address] Jul, Generalized anxiety disorder F41.1 [facility] [address] [id number] [address] [place] [address] Jul, Generalized anxiety disorder F41.1 [facility] [address] [id number] [address] [place] [address] Jul, Primary osteoarthritis invol ving multiple joints M15.0 [facility] [address] [id number] [address] [place] [address] Jun, Generalized anxiety disorder F41.1 [facility] [address] [id number] [address] [place] [address] Jun, [facility] [address] [id number] [address] [place] [address] Jun, Mixed hyperlipidemia E78.2 [facility] [address] [facility] [id number] [address] [place] [address] Jun, Generalized anxiety disorder F41.1 [facility] [address] [id number] [address] [place] [address] Jun, Generalized anxiety disorder F41.1 ; Major depressive disorder, recurrent episode, mild degree F33.0 and Habitual self-excoriation F42.4 [facility] [address] [id number] [address] [place] [address] May, [facility] [address] [id number] [address] [place] [address] May, Generalized anxiety disorder F41.1 [facility] [address] [id number] [address] [place] [address] May, Generalized anxiety disorder F41.1 [facility] [address] [id number] [address] [place] [address] May, Primary osteoarthritis invol ving multiple joints M15.0 [facility] [address] [id number] [address] [place] [address] Apr, Major depressive disorder, r ecurrent episode, mild degree F33.0 ; Generalized anxiety disorder F41.1 and Excoriation, neurotic L98.1 [facility] [address] [id number] [address] [place] [address] 04 Apr, 2017 Primary osteoarthritis invol ving multiple joints M15.0 [facility] [address] [id number] [address] [place] [address] 03 Apr, 2017 Essential hypertension I10 a nd Mixed hyperlipidemia E78.2 [facility] [address] [id number] [address] [place] [address] Apr, Generalized anxiety disorder F41.1 ; Major depressive disorder, recurrent episode, mild degree F33.0 and Habitual self-excoriation F42.4 [facility] [address] [id number] [address] [place] [address] 06 Mar, 2017 Generalized anxiety disorder F41.1 ; Major depressive disorder, recurrent episode, mild degree F33.0 and Habitual self-excoriation F42.4 [facility] [address] [id number] [address] [place] [address] 05 Mar, 2017 Skin lesion L98.9 [facility] [address] [id number] [address] [place] [address] 05 Mar, 2017 Primary osteoarthritis invol ving multiple joints M15.0 [facility] [address] [id number] [address] [place] [address] Mar, [facility] [address] [id number] [address] [place] [address] Mar, [facility] [address] [id number] [address] [place] [address] Feb, Major depressive disorder, r ecurrent episode, mild degree F33.0 ; Generalized anxiety disorder F41.1 and Excoriation, neurotic L98.1 [facility] [address] [id number] [address] [place] [address] Feb, Generalized anxiety disorder F41.1 [facility] [address] [id number] [address] [place] [address] Feb, Primary osteoarthritis invol ving multiple joints M15.0 [facility] [address] [id number] [address] [place] [address] Jan, [facility] [address] [facility] [id number] [address] [place] [address] Jan, Essential hypertension I10 ; Splenic artery aneurysm I72.8 ; Liver mass R16.0 ; Restrictive lung disease J98.4 ; Primary osteoarthritis involving multiple joints M15.0 ; Mixed hyperlipidemia E78.2 ; Bilateral carpal tunnel syndrome G56.03 ; Body mass index (bmi) 50-59.9 , adult Z68.43 and History of tobacco use Z87.891 [facility] [address] [facility] [id number] [address] [place] [address] Jan, Major depressive disorder, r ecurrent episode, mild degree F33.0 and Generalized anxiety disorder F41.1 [facility] [address] [facility] [id number] [address] [place] [address] Jan, [facility] [address] [facility] [id number] [address] [place] [address] Jan, Generalized anxiety disorder F41.1 and Major depressive disorder, recurrent episode, mild degree F33.0 [facility] [address] [facility] [id number] [address] [place] [address] Dec, Primary osteoarthritis invol ving multiple joints M15.0 [facility] [address] [facility] [id number] [address] [place] [address] Dec, Generalized anxiety disorder F41.1 [facility] [address] [facility] [id number] [address] [place] [address] Dec, [facility] [address] [facility] [id number] [address] [place] [address] Dec, Major depressive disorder, r ecurrent episode, mild degree F33.0 and Generalized anxiety disorder F41.1 [facility] [address] [facility] [id number] [address] [place] [phone] Dec, Generalized anxiety disorder F41.1 and Major depressive disorder, recurrent episode, mild degree F33.0 [place] [id number] [place] [address] November, Mild major depression F32.0 and Primary osteoarthritis involving multiple joints M15.0 [facility] [id number] [place] [address] November, Major depressive disorder, r ecurrent episode, mild degree F33.0 and Generalized anxiety disorder F41.1 [place] [id number] [place] [address] November, Primary osteoarthritis invol ving multiple joints M15.0 ; Essential hypertension I10 ; Prediabetes R73.09 ; Mixed hyperlipidemia E78.2 ; Chronic prescription benzodiazepine use Z79.899 ; Chronic prescription opiate use Z79.899 ; Tobacco use Z72.0 ; Bilateral carpal tunnel syndrome G56.03 and Body mass index (bmi) 50-59.9 , adult Z68.43 [place] [address] [address] November, Primary osteoarthritis invol ving multiple joints M15.0 and Mild major depression F32.0 [place] [id number] [place] [address] Oct, [place] [id number] [place] [address] Oct, Primary osteoarthritis invol ving multiple joints M15.0 ; Essential hypertension I10 ; Prediabetes R73.09 ; Chronic prescription benzodiazepine use Z79.899 ; Chronic prescription opiate use Z79.899 ; Tobacco use Z72.0 ; Mixed hyperlipidemia E78.2 ; Bilateral carpal tunnel syndrome G56.03 ; Body mass index (bmi) 50-59.9 , adult Z68.43 and Encounter for immunization Z23 [facility] [id number] [place] [address] Oct, Major depressive disorder, r ecurrent episode, mild degree F33.0 and Generalized anxiety disorder F41.1 [facility] [address] [id number] [address] [place] [address] Oct, [facility] [address] [id number] [address] [place] [address] Oct, [facility] [address] [facility] [id number] [address] [place] [address] Sep, Mild major depression F32.0 [facility] [address] [id number] [address] [place] [address] Sep, [facility] [address] [id number] [address] [place] [address] Sep, Mild major depression F32.0 and Generalized anxiety disorder F41.1 [facility] [address] [facility] [id number] [address] [place] [address] Sep, Paresthesia of both hands R2 0.2 and Cervical radiculopathy M54.12 [facility] [address] [id number] [address] [place] [address] Sep, [facility] [address] [facility] [id number] [address] [place] [address] Sep, [facility] [address] [facility] [id number] [address] [place] [address] Aug, Paresthesia of both hands R2 0.2 and Neck pain M54.2 [facility] [address] [facility] [id number] [address] [place] [address] Aug, [facility] [address] [id number] [address] [place] [address] Jul, Neck pain M54.2 and Paresthe eddie of both hands R20.2 [facility] [address] [facility] [id number] [address] [place] [address] Jul, Proteinuria, unspecified typ e R80.9 [facility] [address] [facility] [id number] [address] [place] [address] Jul, Proteinuria, unspecified typ e R80.9 [facility] [id number] [place] [address] Jul, [facility] [address] [facility] [id number] [address] [place] [address] Jul, Other specified transient ce rebral ischemias G45.8 [facility] [address] [facility] [id number] [address] [place] [address] Jun, Diastolic dysfunction I51.9 [place] [id number] [place] [address] Jun, Diastolic dysfunction I51.9 [place] [id number] [place] [address] Jun, Major depressive disorder, s david episode, unspecified F32.9 and Anxiety disorder, unspecified F41.9 [place] [id number] [place] [address] Jun, [place] [id number] [place] [address] Jun, [place] [id number] [place] [address] May, Moderate major depression F3 2.1 and Generalized anxiety disorder F41.1 [place] [id number] [place] [address] May, Major depressive disorder, s david episode, unspecified F32.9 and Anxiety disorder, unspecified F41.9 [place] [id number] [place] [address] 15 May, 2016 [place] [id number] [place] [address] May, Liver enzyme elevation R74.8 [place] [id number] [place] [address] May, Liver enzyme elevation R74.8 [facility] [id number] [place] [address] 10 May, 2016 Shortness of breath on exert ion R06.02 ; Essential hypertension I10 ; Mixed hyperlipidemia E78.2 and Tobacco use Z72.0 [facility] [id number] [place] [address] May, [facility] [id number] [place] [address] May, [facility] [id number] [place] [address] Apr, Anxiety F41.9 and Depression F32.9 [facility] [address] [address] Apr, [facility] [address] [address] Apr, [facility] [id number] [place] [address] Mar, Depression F32.9 and Anxiety F41.9 [facility] [address] [id number] 08 Mar, 2016 Anxiety F41.9 and Depression F32.9 [facility] [address] [address] Mar, Well woman exam (no gynecolo gical exam) Z00.00 [facility] [id number] [place] [address] Mar, [facility] [id number] [place] [address] Mar, [facility] [address] [id number] [address] [place] [id number] Feb, Dental caries K02.9 [facility] [id number] [place] [address] Feb, [facility] [address] [id number] [address] [place] [address] Feb, Anxiety F41.9 and Depression F32.9 [facility] [address] [id number] [address] [place] [address] [id number] Feb, Dental examination Z01.20 [facility] [address] [id number] [address] [place] [address] Feb, [facility] [address] [id number] [address] [place] [address] Feb, [facility] [address] [id number] [address] [place] [address] Feb, Anxiety F41.9 and Depression F32.9 [facility] [address] [id number] [address] [place] [address] Jan, Severe episode of recurrent major depressive disorder, without psychotic features F33.2 and Anxiety disorder, unspecified F41.9 [facility] [address] [id number] [address] [place] [address] Jan, [facility] [address] [id number] [address] [place] [address] Dec, [facility] [address] [id number] [address] [place] [address] Dec, Anxiety F41.9 and Depression F32.9 [facility] [address] [id number] [address] [place] [address] Dec, Other specified transient ce rebral ischemias G45.8 and Nocturnal hypoxia G47.34 [facility] [address] [id number] [address] [place] [address] Dec, [facility] [address] [id number] [address] [place] [address] Dec, Other specified transient ce rebral ischemias G45.8 [facility] [address] [address] 16 Dec, 2015 Severe episode of recurrent major depressive disorder, without psychotic features F33.2 and Anxiety disorder, unspecified F41.9 [place] [id number] [place] [address] 13 Dec, 2015 [place] [address] [address] 13 Dec, 2015 Anxiety F41.9 and Depression F32.9 [place] [id number] [place] [address] 07 Dec, 2015 Anxiety F41.9 and Depression F32.9 [place] [address] [address] Dec, [place] [address] [address] November, Anxiety F41.9 and Depression F32.9 [place] [address] [address] November, Severe episode of recurrent major depressive disorder, without psychotic features F33.2 [place] [address] [address] November, Mixed hyperlipidemia E78.2 [place] [address] [address] November, Anxiety F41.9 and Depression F32.9 [place] [id number] [place] [address] 05 Nov, 2015 Prediabetes R73.09 ; Essenti al hypertension I10 ; Anxiety F41.9 ; Depression F32.9 ; Gastroesophageal reflux disease, esophagitis presence not specified K21.9 ; Primary osteoarthritis involving multiple joints M15.0 ; History of renal cell cancer Z85.528 ; Postnasal drip R09.82 ; Allergic rhinitis, unspecified J30.9 and Tobacco use Z72.0 [place] [address] [address] 11 Oct, 2015 Anxiety F41.9 and Depression F32.9 [facility] [address] [address] 07 Oct, 2015 [facility] [address] [address] Oct, [facility] [address] [address] 14 Sep, 2015 Splenic artery aneurysm I72. 8 [facility] [address] [address] 10 Sep, 2015 Depression F32.9 ; Anxiety F 41.9 ; Chronic prescription benzodiazepine use Z79.899 and Splenic artery aneurysm I72.8 [facility] [address] [address] 10 Sep, 2015 Depression F32.9 and Anxiety F41.9 [facility] [address] [address] Sep, [facility] [address] [address] 18 Aug, 2015 Dehydration E86.0 ; Diarrhea R19.7 ; Nausea R11.0 and Generalized abdominal pain R10.84 [facility] [address] [address] Aug, [facility] [address] [address] Jul, Depression F32.9 [facility] [address] [address] Jul, [facility] [address] [address] Jul, Anxiety F41.9 and Depression F32.9 [facility] [address] [address] Jul, [facility] [address] [id number] [address] [place] [address] Jun, Epigastric pain R10.13 [facility] [address] [id number] [address] [place] [address] Jun, [facility] [address] [id number] [address] [place] [address] Jun, [facility] [address] [id number] [address] [place] [address] May, [facility] [address] [id number] [address] [place] [id number] May, [facility] [address] [facility] [id number] [address] [place] [phone] Apr, [facility] [address] [facility] [id number] [address] [place] [phone] Mar, Anxiety state, unspecified 3 00.00 ; Depression 311 ; Prediabetes 790.29 ; Generalized osteoarthrosis, involving multiple sites 715.09 and Hypertension 401.9 [facility] [address] [facility] [id number] [address] [place] [id number] Mar, [facility] [address] [facility] [id number] [address] [place] [phone] Feb, [facility] [address] [facility] [id number] [address] [place] [phone] Jan, [facility] [address] [id number] [address] [place] [phone] Jan, [facility] [address] [facility] [id number] [address] [place] [phone] 08 Jan, 2015 Generalized osteoarthrosis, involving multiple sites 715.09 [facility] [address] [facility] [id number] [address] [place] [id number] 07 Jan, 2015 Hx of renal cell cancer V10. 52 [facility] [address] [id number] [address] [place] [id number] Dec, Generalized osteoarthrosis, involving multiple sites 715.09 and Hx of renal cell cancer V10.52 [facility] [address] [id number] [address] [place] [phone] Dec, [facility] [address] [id number] [address] [place] [phone] Dec, [facility] [address] [id number] [address] [place] [phone] November, [facility] [address] [id number] [address] [place] [id number] Oct, [facility] [address] [id number] [address] [place] [phone] Oct, [facility] [address] [id number] [address] [place] [phone] Sep, [facility] [address] [id number] [address] [place] [phone] Sep, [facility] [address] [id number] [address] [place] [phone] Sep, [facility] [address] [id number] [address] [place] [id number] Sep, [facility] [address] [id number] [address] [place] [phone] Aug, [facility] [address] [id number] [address] [place] [phone] Aug, IMMUNIZATIONS No Known Immunizations SOCIAL HISTORY Never Assessed REASON FOR VISIT Follow-up Depression/Anxiety PLAN OF CARE Activity Details Follow Up Next available Reason: Fol low-up VITAL SIGNS MEDICATIONS Unknown Medications RESULTS No Results PROCEDURES Procedure Date Ordered Result Body Site Psychotherapy, patient &/family, 30 minutes, established patient Jul 09, 2017 INSTRUCTIONS MEDICATIONS ADMINISTERED No Known Medications [...]
--- OUTSIDE RECORDS SUMMARY | 2020-02-08 07:26 | XMS REPORT ---
Author Author Emilee MAY Organization [facility] Address [address] [place] [address] Care Team Providers Care Wafer Slicer Name Role Phone LALOJEZALBANIA Unavailable PROBLEMS Type Condition ICD9-CM Code CID18-KW Code Onset Dates Condition S tatus SNOMED Code Problem Allergic rhinitis, unspecified J30.9 Active 81339199 Problem Diastolic dysfunction I51.9 Active 0114727 Problem History of renal cell cancer Z85.528 A ctive 291315763 Problem Excoriation, neurotic L98.1 Active 49050588 Problem Prediabetes R73.09 Active 7877286 Problem History of tobacco use Z87.891 Active 6788609038156 Problem Essential hypertension I10 Active 24328497 Problem Obstructive sleep apnea G47.33 Active 95426296 Problem Body mass index (bmi) 50-59.9 , adult Z68.43 Active 908119405 Problem Paresthesia of both hands R20.2 Acti ve 226436673 Problem Generalized anxiety disorder F41.1 A ctive 22552056 Problem Major depressive disorder, recurrent episode, mild degree F33.0 Active 256462010 Problem Restrictive lung disease J98.4 Activ e 32575689 Problem 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 Active 987325592 Problem Liver mass R16.0 Active 126436280 Problem Splenic artery aneurysm I72.8 Active 86779371 Problem Bilateral carpal tunnel syndrome G56.03 Active 36482318 Problem Chronic prescription benzodiazepine use Z79.899 Active 812594071 Problem Mixed hyperlipidemia E78.2 Active 113773641 Problem Primary osteoarthritis involving multiple joints M 15.0 Active 877671871 Problem Chronic prescription opiate use Z79.899 Active 005434399 Problem Fatty liver K76.0 Active 54722209 7 Problem Isolated proteinuria without specific morphologic lesion R80.0 Active 89087336 Problem Tobacco use Z72.0 Active 42015276 0 ALLERGIES No Information SOCIAL HISTORY Never Assessed PLAN OF CARE VITAL SIGNS MEDICATIONS Medication Instructions Dosage Frequency Start Date End Date Duration S fabrice Hydrocodone-Acetaminophen 5-325 MG Orally 2 times a day as n eeded for pain take 1 tablet Sep, 28 days Active Diazepam 5 MG Orally Once a day 0.5 tablet as [...]
--- OUTSIDE RECORDS SUMMARY | 2020-02-08 07:27 | XMS REPORT ---
Author Author Emilee MAY Organization [facility] Address [address] [place] [address] Care Team Providers Care Certified Medical Assistant Name Role Phone LALOSTEPHANI CONSTANTINOY Unavailable PROBLEMS Type Condition ICD9-CM Code RYL65-WR Code Onset Dates Condition S tatus SNOMED Code Problem Mixed hyperlipidemia E78.2 Active 718235071 Problem Chronic prescription opiate use Z79.899 Active 584355176 Problem Fatty liver K76.0 Active 05541141 7 Problem Tobacco use Z72.0 Active 24385770 0 Problem Obstructive sleep apnea G47.33 Active 51422893 Problem Allergic rhinitis, unspecified J30.9 Active 59854557 Problem Diastolic dysfunction I51.9 Active 7528373 Problem History of renal cell cancer Z85.528 A ctive 291440210 Problem Excoriation, neurotic L98.1 Active 99570621 Problem History of tobacco use Z87.891 Active 2930345167708 Problem Liver mass R16.0 Active 815040236 Problem Prediabetes R73.09 Active 7035000 Problem Essential hypertension I10 Active 17263502 Problem Body mass index (bmi) 50-59.9 , adult Z68.43 Active 650684718 Problem Paresthesia of both hands R20.2 Acti ve 894912760 Problem Generalized anxiety disorder F41.1 A ctive 62490442 Problem Major depressive disorder, recurrent episode, mild degree F33.0 Active 379515464 Problem 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 Active 891514646 Problem Pulmonary emphysema, unspecified emphysema type J4 3.9 Active 87410458 Problem Splenic artery aneurysm I72.8 Active 32142941 Problem Restrictive lung disease J98.4 Activ e 60580523 Problem Bilateral carpal tunnel syndrome G56.03 Active 28186093 Problem Chronic prescription benzodiazepine use Z79.899 Active 900272597 Problem Primary osteoarthritis involving multiple joints M 15.0 Active 386185058 Problem Isolated proteinuria without specific morphologic lesion R80.0 Active 10537983 ALLERGIES No Information ENCOUNTERS Encounter Location Date Diagnosis [facility] [address] [address] November, [facility] [address] [address] November, [facility] [address] [address] November, [facility] [address] [address] Oct, Influenza-like illness R69 [facility] [address] [address] Sep, Influenza-like illness R69 [facility] [address] [address] Sep, Generalized anxiety disorder F41.1 [facility] [address] [address] Sep, [facility] [address] [address] Aug, [facility] [address] [place] [id number] [place] [id number] Aug, [facility] [address] [place] [id number] [address] [place] [id number] Aug, Generalized anxiety disorder F41.1 [facility] [address] [place] [id number] [address] [place] [id number] 06 Aug, 2017 Influenza-like illness R69 a nd BMI 50.0-59.9, adult Z68.43 [facility] [address] [place] [id number] [place] [id number] Jul, Fatty liver K76.0 ; Restrict jean-paul lung disease J98.4 ; Diastolic dysfunction I51.9 ; Body mass index (bmi) 50-59.9 , adult Z68.43 and Chronic prescription opiate use Z79.899 [facility] [address] [id number] [address] [place] [id number] Jul, Generalized anxiety disorder F41.1 [facility] [address] [id number] [address] [place] [id number] Jul, Generalized anxiety disorder F41.1 [facility] [address] [id number] [address] [place] [id number] Jul, Primary osteoarthritis invol ving multiple joints M15.0 [facility] [address] [id number] [address] [place] [id number] Jun, Generalized anxiety disorder F41.1 [facility] [address] [facility] [id number] [address] [place] [id number] Jun, [facility] [address] [facility] [id number] [address] [place] [id number] Jun, Mixed hyperlipidemia E78.2 [facility] [address] [facility] [id number] [address] [place] [id number] Jun, Generalized anxiety disorder F41.1 [facility] [address] [facility] [id number] [address] [place] [id number] Jun, Generalized anxiety disorder F41.1 ; Major depressive disorder, recurrent episode, mild degree F33.0 and Habitual self-excoriation F42.4 [facility] [address] [facility] [id number] [address] [place] [id number] May, [facility] [address] [facility] [id number] [address] [place] [id number] May, Generalized anxiety disorder F41.1 [facility] [address] [facility] [id number] [address] [place] [id number] May, Generalized anxiety disorder F41.1 [facility] [address] [facility] [id number] [address] [place] [id number] May, Primary osteoarthritis invol ving multiple joints M15.0 [facility] [address] [id number] [address] [place] [id number] 09 Apr, 2017 Major depressive disorder, r ecurrent episode, mild degree F33.0 ; Generalized anxiety disorder F41.1 and Excoriation, neurotic L98.1 [facility] [address] [id number] [address] [place] [id number] Apr, Primary osteoarthritis invol ving multiple joints M15.0 [facility] [address] [id number] [address] [place] [id number] Apr, Essential hypertension I10 a nd Mixed hyperlipidemia E78.2 [facility] [address] [id number] [address] [place] [id number] Apr, Generalized anxiety disorder F41.1 ; Major depressive disorder, recurrent episode, mild degree F33.0 and Habitual self-excoriation F42.4 [facility] [address] [id number] [address] [place] [id number] Mar, Generalized anxiety disorder F41.1 ; Major depressive disorder, recurrent episode, mild degree F33.0 and Habitual self-excoriation F42.4 [facility] [address] [id number] [address] [place] [id number] Mar, Skin lesion L98.9 [facility] [address] [id number] [address] [place] [id number] Mar, Primary osteoarthritis invol ving multiple joints M15.0 [facility] [address] [id number] [address] [place] [id number] Mar, [facility] [address] [id number] [address] [place] [id number] Mar, [facility] [address] [id number] [address] [place] [id number] Feb, Major depressive disorder, r ecurrent episode, mild degree F33.0 ; Generalized anxiety disorder F41.1 and Excoriation, neurotic L98.1 [facility] [address] [id number] [address] [place] [id number] Feb, Generalized anxiety disorder F41.1 [facility] [address] [id number] [address] [place] [id number] Feb, Primary osteoarthritis invol ving multiple joints M15.0 [facility] [address] [facility] [id number] [address] [place] [id number] Jan, [facility] [address] [facility] [id number] [address] [place] [id number] Jan, Essential hypertension I10 ; Splenic artery aneurysm I72.8 ; Liver mass R16.0 ; Restrictive lung disease J98.4 ; Primary osteoarthritis involving multiple joints M15.0 ; Mixed hyperlipidemia E78.2 ; Bilateral carpal tunnel syndrome G56.03 ; Body mass index (bmi) 50-59.9 , adult Z68.43 and History of tobacco use Z87.891 [place] [address] [place] [id number] [address] [place] [id number] Jan, Major depressive disorder, r ecurrent episode, mild degree F33.0 and Generalized anxiety disorder F41.1 [place] [id number] [facility] [id number] [address] [place] [id number] Jan, [place] [address] [facility] [id number] [address] [place] [id number] Jan, Generalized anxiety disorder F41.1 and Major depressive disorder, recurrent episode, mild degree F33.0 [facility] [address] [facility] [id number] [address] [place] [id number] Dec, Primary osteoarthritis invol ving multiple joints M15.0 [facility] [address] [id number] [address] [place] [id number] Dec, Generalized anxiety disorder F41.1 [facility] [address] [facility] [id number] [address] [place] [id number] Dec, [facility] [address] [facility] [id number] [address] [place] [id number] Dec, Major depressive disorder, r ecurrent episode, mild degree F33.0 and Generalized anxiety disorder F41.1 [place] [id number] [facility] [id number] [address] [place] [id number] Dec, Generalized anxiety disorder F41.1 and Major depressive disorder, recurrent episode, mild degree F33.0 [place] [address] [place] [id number] [address] [place] [id number] November, Mild major depression F32.0 and Primary osteoarthritis involving multiple joints M15.0 [place] [address] [facility] [id number] [address] [place] [id number] November, Major depressive disorder, r ecurrent episode, mild degree F33.0 and Generalized anxiety disorder F41.1 [place] [address] [place] [id number] [address] [place] [id number] November, Primary osteoarthritis invol ving multiple joints M15.0 ; Essential hypertension I10 ; Prediabetes R73.09 ; Mixed hyperlipidemia E78.2 ; Chronic prescription benzodiazepine use Z79.899 ; Chronic prescription opiate use Z79.899 ; Tobacco use Z72.0 ; Bilateral carpal tunnel syndrome G56.03 and Body mass index (bmi) 50-59.9 , adult Z68.43 [place] [address] [place] [id number] [address] [place] [id number] November, Primary osteoarthritis invol ving multiple joints M15.0 and Mild major depression F32.0 [place] [address] [place] [id number] [address] [place] [id number] Oct, [place] [address] [place] [id number] [place] [id number] Oct, Primary osteoarthritis invol ving multiple joints M15.0 ; Essential hypertension I10 ; Prediabetes R73.09 ; Chronic prescription benzodiazepine use Z79.899 ; Chronic prescription opiate use Z79.899 ; Tobacco use Z72.0 ; Mixed hyperlipidemia E78.2 ; Bilateral carpal tunnel syndrome G56.03 ; Body mass index (bmi) 50-59.9 , adult Z68.43 and Encounter for immunization Z23 [facility] [address] [id number] [address] [place] [id number] 17 Oct, 2016 Major depressive disorder, r ecurrent episode, mild degree F33.0 and Generalized anxiety disorder F41.1 [facility] [address] [id number] [address] [place] [id number] Oct, [facility] [address] [facility] [id number] [address] [place] [id number] Oct, [facility] [address] [id number] [address] [place] [id number] Sep, Mild major depression F32.0 [facility] [address] [id number] [address] [place] [id number] Sep, [facility] [address] [facility] [id number] [address] [place] [id number] Sep, Mild major depression F32.0 and Generalized anxiety disorder F41.1 [facility] [address] [facility] [id number] [address] [place] [id number] Sep, Paresthesia of both hands R2 0.2 and Cervical radiculopathy M54.12 [facility] [address] [facility] [id number] [address] [place] [id number] Sep, [facility] [address] [facility] [id number] [address] [place] [id number] Sep, [facility] [address] [facility] [id number] [address] [place] [id number] Aug, Paresthesia of both hands R2 0.2 and Neck pain M54.2 [facility] [address] [facility] [id number] [address] [place] [id number] Aug, [facility] [address] [facility] [id number] [address] [place] [id number] Jul, Neck pain M54.2 and Paresthe eddie of both hands R20.2 [facility] [address] [facility] [id number] [address] [place] [id number] Jul, Proteinuria, unspecified typ e R80.9 [facility] [address] [facility] [id number] [address] [place] [id number] Jul, Proteinuria, unspecified typ e R80.9 [facility] [address] [facility] [id number] [address] [place] [id number] Jul, [facility] [address] [facility] [id number] [address] [place] [id number] Jul, Other specified transient ce rebral ischemias G45.8 [facility] [address] [facility] [id number] [address] [place] [id number] Jun, Diastolic dysfunction I51.9 [facility] [address] [facility] [id number] [address] [place] [id number] Jun, Diastolic dysfunction I51.9 [facility] [address] [facility] [id number] [address] [place] [id number] Jun, Major depressive disorder, s david episode, unspecified F32.9 and Anxiety disorder, unspecified F41.9 [facility] [address] [place] [id number] [address] [place] [id number] Jun, [facility] [address] [place] [id number] [address] [place] [id number] Jun, [facility] [address] [facility] [id number] [address] [place] [id number] May, Moderate major depression F3 2.1 and Generalized anxiety disorder F41.1 [facility] [address] [facility] [id number] [address] [place] [id number] May, Major depressive disorder, s david episode, unspecified F32.9 and Anxiety disorder, unspecified F41.9 [facility] [address] [facility] [id number] [address] [place] [id number] May, [facility] [address] [facility] [id number] [address] [place] [id number] 14 May, 2016 Liver enzyme elevation R74.8 [facility] [address] [facility] [id number] [address] [place] [id number] 14 May, 2016 Liver enzyme elevation R74.8 [facility] [address] [place] [id number] [address] [place] [id number] 10 May, 2016 Shortness of breath on exert ion R06.02 ; Essential hypertension I10 ; Mixed hyperlipidemia E78.2 and Tobacco use Z72.0 [facility] [address] [facility] [id number] [address] [place] [id number] 03 May, 2016 [facility] [address] [id number] May, [facility] [address] [id number] 06 Apr, 2016 Anxiety F41.9 and Depression F32.9 [facility] [address] [id number] Apr, [facility] [address] [id number] Apr, [facility] [address] [id number] 22 Mar, 2016 Depression F32.9 and Anxiety F41.9 [facility] [address] [place] [id number] [address] [place] [id number] 08 Mar, 2016 Anxiety F41.9 and Depression F32.9 [facility] [address] [place] [id number] [address] [place] [id number] 06 Mar, 2016 Well woman exam (no gynecolo gical exam) Z00.00 [facility] [address] [place] [id number] [address] [place] [id number] 02 Mar, 2016 [facility] [address] [place] [id number] [address] [place] [id number] Mar, [facility] [address] [place] [address] [id number] [address] [place] [id number] Feb, Dental caries K02.9 [facility] [address] [id number] [address] [place] [phone] Feb, [facility] [address] [id number] [address] [place] [id number] Feb, Anxiety F41.9 and Depression F32.9 [facility] [address] [id number] [address] [place] [id number] Feb, Dental examination Z01.20 [facility] [address] [id number] [address] [place] [id number] Feb, [facility] [address] [id number] [address] [place] [id number] Feb, [facility] [address] [facility] [id number] [address] [place] [id number] Feb, Anxiety F41.9 and Depression F32.9 [facility] [address] [id number] [address] [place] [id number] Jan, Severe episode of recurrent major depressive disorder, without psychotic features F33.2 and Anxiety disorder, unspecified F41.9 [facility] [address] [facility] [id number] [address] [place] [id number] Jan, [facility] [address] [facility] [id number] [address] [place] [id number] Dec, [facility] [address] [facility] [id number] [address] [place] [id number] Dec, Anxiety F41.9 and Depression F32.9 [facility] [address] [facility] [id number] [address] [place] [id number] Dec, Other specified transient ce rebral ischemias G45.8 and Nocturnal hypoxia G47.34 [facility] [address] [facility] [id number] [address] [place] [id number] Dec, [facility] [address] [id number] 17 Dec, 2015 Other specified transient ce rebral ischemias G45.8 [place] [address] [id number] 16 Dec, 2015 Severe episode of recurrent major depressive disorder, without psychotic features F33.2 and Anxiety disorder, unspecified F41.9 [place] [address] [address] 13 Dec, 2015 [place] [address] [address] 13 Dec, 2015 Anxiety F41.9 and Depression F32.9 [place] [address] [id number] 07 Dec, 2015 Anxiety F41.9 and Depression F32.9 [place] [address] [address] Dec, [place] [address] [address] November, Anxiety F41.9 and Depression F32.9 [place] [address] [address] November, Severe episode of recurrent major depressive disorder, without psychotic features F33.2 [place] [address] [address] November, Mixed hyperlipidemia E78.2 [place] [address] [address] November, Anxiety F41.9 and Depression F32.[address] [address] 05 Nov, 2015 Prediabetes R73.09 ; Essenti al hypertension I10 ; Anxiety F41.9 ; Depression F32.9 ; Gastroesophageal reflux disease, esophagitis presence not specified K21.9 ; Primary osteoarthritis involving multiple joints M15.0 ; History of renal cell cancer Z85.528 ; Postnasal drip R09.82 ; Allergic rhinitis, unspecified J30.9 and Tobacco use Z72.0 [place] [address] [address] 11 Oct, 2015 Anxiety F41.9 and Depression F32.9 [place] [address] [address] 07 Oct, 2015 [place] [address] [address] Oct, [place] [address] [address] 14 Sep, 2015 Splenic artery aneurysm I72. 8 [place] [address] [address] 10 Sep, 2015 Depression F32.9 ; Anxiety F 41.9 ; Chronic prescription benzodiazepine use Z79.899 and Splenic artery aneurysm I72.8 [place] [address] [address] 10 Sep, 2015 Depression F32.9 and Anxiety F41.9 [place] [address] [address] Sep, [place] [address] [address] 18 Aug, 2015 Dehydration E86.0 ; Diarrhea R19.7 ; Nausea R11.0 and Generalized abdominal pain R10.84 [place] [address] [address] Aug, [place] [address] [address] Jul, Depression F32.9 [place] [address] [address] Jul, [place] [address] [id number] Jul, Anxiety F41.9 and Depression F32.9 [facility] [address] [id number] [address] [place] [id number] Jul, [facility] [address] [facility] [id number] [address] [place] [id number] Jun, Epigastric pain R10.13 [facility] [address] [facility] [id number] [address] [place] [id number] Jun, [facility] [address] [id number] [address] [place] [id number] Jun, [facility] [address] [facility] [id number] [address] [place] [id number] May, [facility] [address] [facility] [id number] [address] [place] [id number] May, [facility] [address] [facility] [id number] [address] [place] [id number] Apr, [facility] [address] [facility] [id number] [address] [place] [id number] Mar, Anxiety state, unspecified 3 00.00 ; Depression 311 ; Prediabetes 790.29 ; Generalized osteoarthrosis, involving multiple sites 715.09 and Hypertension 401.9 [facility] [address] [facility] [id number] [address] [place] [id number] Mar, [facility] [address] [facility] [id number] [address] [place] [id number] Feb, [facility] [address] [facility] [id number] [address] [place] [id number] Jan, [facility] [address] [facility] [id number] [address] [place] [id number] Jan, [facility] [address] [facility] [id number] [address] [place] [id number] Jan, Generalized osteoarthrosis, involving multiple sites 715.09 [facility] [address] [facility] [id number] [address] [place] [id number] Jan, Hx of renal cell cancer V10. 52 [facility] [address] [id number] [address] [place] [id number] Dec, Generalized osteoarthrosis, involving multiple sites 715.09 and Hx of renal cell cancer V10.52 [facility] [address] [id number] [address] [place] [id number] Dec, [facility] [address] [id number] [address] [place] [id number] Dec, [facility] [address] [id number] [address] [place] [phone] November, [facility] [address] [id number] [address] [place] [id number] Oct, [facility] [address] [id number] [address] [place] [id number] Oct, [facility] [address] [id number] [address] [place] [id number] Sep, [facility] [address] [id number] [address] [place] [phone] Sep, [facility] [address] [id number] [address] [place] [phone] Sep, [facility] [address] [id number] [address] [place] [id number] Sep, [facility] [address] [id number] [address] [place] [phone] Aug, [facility] [address] [id number] [address] [place] [phone] Aug, IMMUNIZATIONS No Known Immunizations SOCIAL HISTORY Never Assessed REASON FOR VISIT CT scan appointment PLAN OF CARE VITAL SIGNS MEDICATIONS Unknown [...]
--- OUTSIDE RECORDS SUMMARY | 2020-02-08 07:27 | XMS REPORT ---
Author Author Emilee NO Organization [facility] Address [address] [place] [address] Care Team Providers Care Fingerprint Clerk Name Role Phone [email or web address] Unavailable PROBLEMS Type Condition ICD9-CM Code IRZ66-IX Code Onset Dates Condition S tatus SNOMED Code Problem Mixed hyperlipidemia E78.2 Active 810473924 Problem Chronic prescription opiate use Z79.899 Active 380826876 Problem Fatty liver K76.0 Active 73575020 7 Problem Tobacco use Z72.0 Active 16547548 0 Problem Obstructive sleep apnea G47.33 Active 38780194 Problem Allergic rhinitis, unspecified J30.9 Active 50300853 Problem Diastolic dysfunction I51.9 Active 4353857 Problem History of renal cell cancer Z85.528 A ctive 219688470 Problem Excoriation, neurotic L98.1 Active 70296838 Problem History of tobacco use Z87.891 Active 1792846472512 Problem Liver mass R16.0 Active 805845657 Problem Prediabetes R73.09 Active 7832002 Problem Essential hypertension I10 Active 18076051 Problem Body mass index (bmi) 50-59.9 , adult Z68.43 Active 289061707 Problem Paresthesia of both hands R20.2 Acti ve 210693416 Problem Generalized anxiety disorder F41.1 A ctive 63458594 Problem Major depressive disorder, recurrent episode, mild degree F33.0 Active 125349219 Problem 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 Active 123793200 Problem Pulmonary emphysema, unspecified emphysema type J4 3.9 Active 58447196 Problem Splenic artery aneurysm I72.8 Active 31949787 Problem Restrictive lung disease J98.4 Activ e 26701453 Problem Bilateral carpal tunnel syndrome G56.03 Active 87977106 Problem Chronic prescription benzodiazepine use Z79.899 Active 727383112 Problem Primary osteoarthritis involving multiple joints M 15.0 Active 992835929 Problem Isolated proteinuria without specific morphologic lesion R80.0 Active 68053684 ALLERGIES No Known Allergies ENCOUNTERS Encounter Location Date Diagnosis [facility] [address] [id number] [place] [address] November, [facility] [address] [facility] [id number] [address] [place] [address] November, [facility] [address] [address] November, [facility] [address] [address] Oct, Generalized anxiety disorder F41.1 [facility] [address] [address] Oct, [facility] [id number] [place] [address] Oct, Influenza-like illness R69 [facility] [id number] [place] [address] Sep, Influenza-like illness R69 [facility] [address] [address] Sep, Generalized anxiety disorder F41.1 [facility] [address] [id number] [address] [place] [address] Sep, [facility] [id number] [place] [address] Aug, [facility] [id number] [place] [address] Aug, [facility] [id number] [place] [address] Aug, Generalized anxiety disorder F41.1 [facility] [address] [facility] [id number] [address] [place] [address] Aug, Influenza-like illness R69 a nd BMI 50.0-59.9, adult Z68.43 [facility] [address] [facility] [id number] [address] [place] [address] Jul, Fatty liver K76.0 ; Restrict jean-paul lung disease J98.4 ; Diastolic dysfunction I51.9 ; Body mass index (bmi) 50-59.9 , adult Z68.43 and Chronic prescription opiate use Z79.899 [facility] [address] [facility] [id number] [address] [place] [address] Jul, Generalized anxiety disorder F41.1 [facility] [address] [facility] [id number] [address] [place] [address] Jul, Generalized anxiety disorder F41.1 [place] [address] [id number] [address] [place] [address] Jul, Primary osteoarthritis invol ving multiple joints M15.0 [facility] [address] [facility] [id number] [address] [place] [address] Jun, Generalized anxiety disorder F41.1 [place] [address] [facility] [id number] [address] [place] [address] Jun, [place] [address] [id number] [address] [place] [address] Jun, Mixed hyperlipidemia E78.2 [facility] [address] [facility] [id number] [address] [place] [address] Jun, Generalized anxiety disorder F41.1 [facility] [address] [facility] [id number] [address] [place] [address] Jun, Generalized anxiety disorder F41.1 ; Major depressive disorder, recurrent episode, mild degree F33.0 and Habitual self-excoriation F42.4 [facility] [address] [facility] [id number] [address] [place] [address] May, [facility] [address] [facility] [id number] [address] [place] [address] May, Generalized anxiety disorder F41.1 [facility] [address] [facility] [id number] [address] [place] [address] May, Generalized anxiety disorder F41.1 [facility] [address] [id number] [address] [place] [address] May, Primary osteoarthritis invol ving multiple joints M15.0 [facility] [address] [id number] [address] [place] [address] Apr, Major depressive disorder, r ecurrent episode, mild degree F33.0 ; Generalized anxiety disorder F41.1 and Excoriation, neurotic L98.1 [facility] [address] [id number] [address] [place] [address] Apr, Primary osteoarthritis invol ving multiple joints M15.0 [facility] [address] [id number] [address] [place] [address] Apr, Essential hypertension I10 a nd Mixed hyperlipidemia E78.2 [facility] [address] [id number] [address] [place] [address] Apr, Generalized anxiety disorder F41.1 ; Major depressive disorder, recurrent episode, mild degree F33.0 and Habitual self-excoriation F42.4 [facility] [address] [id number] [address] [place] [address] Mar, Generalized anxiety disorder F41.1 ; Major depressive disorder, recurrent episode, mild degree F33.0 and Habitual self-excoriation F42.4 [facility] [address] [id number] [address] [place] [address] Mar, Skin lesion L98.9 [facility] [address] [id number] [address] [place] [address] Mar, Primary osteoarthritis invol ving multiple joints M15.0 [facility] [address] [id number] [address] [place] [address] Mar, [facility] [address] [id number] [address] [place] [address] Mar, [facility] [address] [facility] [id number] [address] [place] [address] Feb, Major depressive disorder, r ecurrent episode, mild degree F33.0 ; Generalized anxiety disorder F41.1 and Excoriation, neurotic L98.1 [facility] [address] [facility] [id number] [address] [place] [address] Feb, Generalized anxiety disorder F41.1 [place] [address] [id number] [address] [place] [address] Feb, Primary osteoarthritis invol ving multiple joints M15.0 [place] [address] [id number] [address] [place] [address] Jan, [place] [address] [id number] [address] [place] [address] Jan, Essential hypertension I10 ; Splenic artery aneurysm I72.8 ; Liver mass R16.0 ; Restrictive lung disease J98.4 ; Primary osteoarthritis involving multiple joints M15.0 ; Mixed hyperlipidemia E78.2 ; Bilateral carpal tunnel syndrome G56.03 ; Body mass index (bmi) 50-59.9 , adult Z68.43 and History of tobacco use Z87.891 [place] [address] [id number] [address] [place] [address] Jan, Major depressive disorder, r ecurrent episode, mild degree F33.0 and Generalized anxiety disorder F41.1 [place] [address] [id number] [address] [place] [address] Jan, [place] [address] [id number] [address] [place] [address] Jan, Generalized anxiety disorder F41.1 and Major depressive disorder, recurrent episode, mild degree F33.0 [place] [address] [id number] [address] [place] [address] Dec, Primary osteoarthritis invol ving multiple joints M15.0 [place] [address] [id number] [address] [place] [address] Dec, Generalized anxiety disorder F41.1 [facility] [address] [facility] [id number] [address] [place] [address] Dec, [facility] [address] [facility] [id number] [address] [place] [address] Dec, Major depressive disorder, r ecurrent episode, mild degree F33.0 and Generalized anxiety disorder F41.1 [facility] [address] [facility] [id number] [address] [place] [address] Dec, Generalized anxiety disorder F41.1 and Major depressive disorder, recurrent episode, mild degree F33.0 [place] [address] [facility] [id number] [address] [place] [address] November, Mild major depression F32.0 and Primary osteoarthritis involving multiple joints M15.0 [place] [address] [id number] [address] [place] [address] November, Major depressive disorder, r ecurrent episode, mild degree F33.0 and Generalized anxiety disorder F41.1 [place] [address] [facility] [id number] [address] [place] [address] November, Primary osteoarthritis invol ving multiple joints M15.0 ; Essential hypertension I10 ; Prediabetes R73.09 ; Mixed hyperlipidemia E78.2 ; Chronic prescription benzodiazepine use Z79.899 ; Chronic prescription opiate use Z79.899 ; Tobacco use Z72.0 ; Bilateral carpal tunnel syndrome G56.03 and Body mass index (bmi) 50-59.9 , adult Z68.43 [place] [address] [facility] [id number] [address] [place] [address] November, Primary osteoarthritis invol ving multiple joints M15.0 and Mild major depression F32.0 [place] [address] [facility] [id number] [address] [place] [address] Oct, [place] [address] [facility] [id number] [address] [place] [address] Oct, Primary osteoarthritis invol ving multiple joints M15.0 ; Essential hypertension I10 ; Prediabetes R73.09 ; Chronic prescription benzodiazepine use Z79.899 ; Chronic prescription opiate use Z79.899 ; Tobacco use Z72.0 ; Mixed hyperlipidemia E78.2 ; Bilateral carpal tunnel syndrome G56.03 ; Body mass index (bmi) 50-59.9 , adult Z68.43 and Encounter for immunization Z23 [facility] [address] [facility] [id number] [address] [place] [address] Oct, Major depressive disorder, r ecurrent episode, mild degree F33.0 and Generalized anxiety disorder F41.1 [place] [address] [facility] [id number] [address] [place] [address] Oct, [place] [address] [facility] [id number] [address] [place] [address] Oct, [place] [address] [facility] [id number] [address] [place] [address] Sep, Mild major depression F32.0 [place] [address] [facility] [id number] [address] [place] [address] Sep, [place] [address] [facility] [id number] [address] [place] [address] Sep, Mild major depression F32.0 and Generalized anxiety disorder F41.1 [place] [address] [facility] [id number] [address] [place] [address] Sep, Paresthesia of both hands R2 0.2 and Cervical radiculopathy M54.12 [place] [address] [facility] [id number] [address] [place] [address] Sep, [place] [address] [facility] [id number] [address] [place] [address] Sep, [place] [address] [facility] [id number] [address] [place] [address] Aug, Paresthesia of both hands R2 0.2 and Neck pain M54.2 [place] [address] [id number] [address] [place] [address] Aug, [facility] [address] [facility] [id number] [address] [place] [address] Jul, Neck pain M54.2 and Paresthe eddie of both hands R20.2 [facility] [address] [facility] [id number] [address] [place] [address] Jul, Proteinuria, unspecified typ e R80.9 [facility] [address] [facility] [id number] [address] [place] [address] Jul, Proteinuria, unspecified typ e R80.9 [facility] [address] [facility] [id number] [address] [place] [address] Jul, [facility] [address] [facility] [id number] [address] [place] [address] Jul, Other specified transient ce rebral ischemias G45.8 [facility] [address] [facility] [id number] [address] [place] [address] Jun, Diastolic dysfunction I51.9 [facility] [address] [facility] [id number] [address] [place] [address] Jun, Diastolic dysfunction I51.9 [facility] [address] [facility] [id number] [address] [place] [address] Jun, Major depressive disorder, s david episode, unspecified F32.9 and Anxiety disorder, unspecified F41.9 [facility] [address] [facility] [id number] [address] [place] [address] Jun, [facility] [address] [facility] [id number] [address] [place] [address] Jun, [place] [address] [facility] [id number] [address] [place] [address] May, Moderate major depression F3 2.1 and Generalized anxiety disorder F41.1 [facility] [address] [facility] [id number] [address] [place] [address] May, Major depressive disorder, s david episode, unspecified F32.9 and Anxiety disorder, unspecified F41.9 [facility] [address] [facility] [id number] [address] [place] [address] 15 May, 2016 [facility] [address] [facility] [id number] [address] [place] [address] 14 May, 2016 Liver enzyme elevation R74.8 [facility] [id number] [place] [address] 14 May, 2016 Liver enzyme elevation R74.8 [facility] [address] [id number] [address] [place] [address] 10 May, 2016 Shortness of breath on exert ion R06.02 ; Essential hypertension I10 ; Mixed hyperlipidemia E78.2 and Tobacco use Z72.0 [place] [address] [id number] [address] [place] [address] 03 May, 2016 [facility] [address] [id number] [address] [place] [address] May, [facility] [address] [id number] [address] [place] [address] Apr, Anxiety F41.9 and Depression F32.9 [facility] [address] [id number] [address] [place] [address] Apr, [facility] [address] [id number] [address] [place] [address] Apr, [facility] [address] [id number] [address] [place] [address] Mar, Depression F32.9 and Anxiety F41.9 [place] [address] [id number] [address] [place] [address] 08 Mar, 2016 Anxiety F41.9 and Depression F32.9 [facility] [address] [id number] [address] [place] [address] 06 Mar, 2016 Well woman exam (no gynecolo gical exam) Z00.00 [facility] [address] [id number] [address] [place] [address] Mar, [facility] [address] [id number] [address] [place] [address] Mar, [facility] [address] [id number] [address] [place] [id number] Feb, Dental caries K02.9 [facility] [address] [id number] [address] [place] [address] Feb, [facility] [address] [id number] [address] [place] [address] Feb, Anxiety F41.9 and Depression F32.9 [facility] [address] [id number] [address] [place] [id number] Feb, Dental examination Z01.20 [facility] [address] [id number] [address] [place] [address] Feb, [facility] [address] [id number] [address] [place] [address] Feb, [facility] [address] [id number] [address] [place] [address] Feb, Anxiety F41.9 and Depression F32.9 [facility] [address] [id number] [address] [place] [address] Jan, Severe episode of recurrent major depressive disorder, without psychotic features F33.2 and Anxiety disorder, unspecified F41.9 [facility] [address] [id number] [address] [place] [address] Jan, [facility] [address] [id number] [address] [place] [address] Dec, [facility] [address] [id number] [address] [place] [address] Dec, Anxiety F41.9 and Depression F32.9 [facility] [address] [id number] [address] [place] [address] 24 Dec, 2015 Other specified transient ce rebral ischemias G45.8 and Nocturnal hypoxia G47.34 [facility] [address] [id number] [address] [place] [address] 18 Dec, 2015 [facility] [address] [id number] [address] [place] [address] 17 Dec, 2015 Other specified transient ce rebral ischemias G45.8 [facility] [address] [id number] [address] [place] [phone] 16 Dec, 2015 Severe episode of recurrent major depressive disorder, without psychotic features F33.2 and Anxiety disorder, unspecified F41.9 [place] [address] [id number] [address] [place] [address] Dec, [place] [address] [id number] [address] [place] [address] Dec, Anxiety F41.9 and Depression F32.9 [facility] [address] [id number] [address] [place] [phone] 07 Dec, 2015 Anxiety F41.9 and Depression F32.9 [place] [address] [id number] [address] [place] [address] Dec, [facility] [address] [id number] [address] [place] [address] November, Anxiety F41.9 and Depression F32.9 [facility] [address] [id number] [address] [place] [address] November, Severe episode of recurrent major depressive disorder, without psychotic features F33.2 [facility] [address] [id number] [address] [place] [address] November, Mixed hyperlipidemia E78.2 [facility] [address] [id number] [address] [place] [address] November, Anxiety F41.9 and Depression F32.9 [facility] [address] [address] 05 Nov, 2015 Prediabetes R73.09 ; Essenti al hypertension I10 ; Anxiety F41.9 ; Depression F32.9 ; Gastroesophageal reflux disease, esophagitis presence not specified K21.9 ; Primary osteoarthritis involving multiple joints M15.0 ; History of renal cell cancer Z85.528 ; Postnasal drip R09.82 ; Allergic rhinitis, unspecified J30.9 and Tobacco use Z72.0 [place] [address] [address] Oct, Anxiety F41.9 and Depression F32.9 [place] [address] [address] Oct, [place] [address] [address] Oct, [place] [address] [address] 14 Sep, 2015 Splenic artery aneurysm I72. 8 [place] [address] [address] 10 Sep, 2015 Depression F32.9 ; Anxiety F 41.9 ; Chronic prescription benzodiazepine use Z79.899 and Splenic artery aneurysm I72.8 [place] [address] [address] 10 Sep, 2015 Depression F32.9 and Anxiety F41.9 [place] [address] [address] Sep, [place] [address] [address] 18 Aug, 2015 Dehydration E86.0 ; Diarrhea R19.7 ; Nausea R11.0 and Generalized abdominal pain R10.84 [place] [address] [phone] 03 Aug, 2015 [place] [address] [address] Jul, Depression F32.9 [facility] [address] [id number] [address] [place] [address] Jul, [facility] [address] [facility] [id number] [address] [place] [address] Jul, Anxiety F41.9 and Depression F32.9 [facility] [address] [id number] [address] [place] [address] Jul, [facility] [address] [id number] [address] [place] [address] Jun, Epigastric pain R10.13 [facility] [address] [id number] [address] [place] [address] Jun, [facility] [address] [facility] [id number] [address] [place] [address] Jun, [facility] [address] [facility] [id number] [address] [place] [address] May, [facility] [address] [id number] [address] [place] [address] May, [facility] [address] [facility] [id number] [address] [place] [address] Apr, [facility] [address] [facility] [id number] [address] [place] [address] Mar, Anxiety state, unspecified 3 00.00 ; Depression 311 ; Prediabetes 790.29 ; Generalized osteoarthrosis, involving multiple sites 715.09 and Hypertension 401.9 [facility] [address] [id number] [address] [place] [phone] Mar, [facility] [address] [facility] [id number] [address] [place] [phone] Feb, [facility] [address] [facility] [id number] [address] [place] [address] Jan, [facility] [address] [id number] [address] [place] [phone] 09 Jan, 2015 [facility] [address] [id number] [address] [place] [address] Jan, Generalized osteoarthrosis, involving multiple sites 715.09 [facility] [address] [id number] [address] [place] [address] 07 Jan, 2015 Hx of renal cell cancer V10. 52 [facility] [address] [id number] [address] [place] [address] Dec, Generalized osteoarthrosis, involving multiple sites 715.09 and Hx of renal cell cancer V10.52 [facility] [address] [id number] [address] [place] [address] [place] [id number] Dec, [facility] [address] [id number] [address] [place] [id number] Dec, [facility] [address] [id number] [address] [place] [id number] November, [facility] [address] [id number] [address] [place] [phone] Oct, [facility] [address] [id number] [address] [place] [phone] Oct, [facility] [address] [id number] [address] [place] [phone] Sep, [facility] [address] [id number] [address] [place] [phone] Sep, [facility] [address] [id number] [address] [place] [id number] Sep, [facility] [address] [id number] [address] [place] [id number] Sep, [facility] [address] [id number] [address] [place] [phone] Aug, [facility] [address] [id number] [address] [place] [phone] Aug, IMMUNIZATIONS No Known Immunizations SOCIAL HISTORY Never Assessed REASON FOR VISIT f/u--Lona Rios MA PLAN OF CARE Activity Details Follow Up 4 Weeks Reason: f/u VITAL SIGNS Height 62 in 2017-04-03 Weight 282.8 lbs 2017-04-03 Heart Rate 80 bpm 2017-04-03 Respiratory Rate 20 2017-04-03 BMI 51.72 kg/m2 2017-04-03 Blood pressure systolic 110 mmHg 2017-04-03 Blood pressure diastolic 80 mmHg 2017-04-03 MEDICATIONS Medication Instructions Dosage Frequency Start Date End Date Duration S tatus Furosemide 20 mg Orally Once a day 1 tablet 24h 30 Active Remeron 15 mg Orally Once a day at bedtime 1 tablet at bedtime 30 days Active BuPROPion HCl ER (XL) 300 MG Orally Once a day in the mornin g 1 tablet in the morning 30 days Active Tizanidine HCl 2 MG Orally every 8 hrs 1 tablet as needed 8h 30 Active Omeprazole 20 mg Orally Once a day 2 capsules 24h Jun, 30 day(s) Active Atorvastatin Calcium 40 mg Orally Once a day 1 tablet 24h Active Hydrocodone-Acetaminophen 5-325 MG Orally 2 times a day as n eeded for pain take 1 tablet Feb, 28 days Active Cymbalta 30 MG Orally Once a day 3 capsules 24h Mar, 30 day(s) Active Diazepam 5 mg Orally Once a day as needed for anxiety 0.5 tablet 30 days Active Atenolol 50 mg Orally Once a day 1 tablet 24h Active Wellbutrin XL 150 MG Orally Once a day (along wit h 300 mg tablet to equal 450 mg daily 1 tablet in the morning 30 days A ctive Potassium Chloride ER 20 MEQ Orally Once a day 1 tablet with food 24h 30 Active RESULTS No Results PROCEDURES [...]
--- OUTSIDE RECORDS SUMMARY | 2020-02-08 07:27 | XMS REPORT ---
Author Author Emilee NO Organization [facility] Address [address] [place] [address] Care Team Providers Care Sales Representative Public Utilities Name Role Phone [email or web address] Unavailable PROBLEMS Type Condition ICD9-CM Code GZX25-XV Code Onset Dates Condition S tatus SNOMED Code Problem Mixed hyperlipidemia E78.2 Active 259750645 Problem Chronic prescription opiate use Z79.899 Active 623156786 Problem Fatty liver K76.0 Active 36662530 7 Problem Tobacco use Z72.0 Active 98580184 0 Problem Obstructive sleep apnea G47.33 Active 14978591 Problem Allergic rhinitis, unspecified J30.9 Active 02529769 Problem Diastolic dysfunction I51.9 Active 9904677 Problem History of renal cell cancer Z85.528 A ctive 888103897 Problem Excoriation, neurotic L98.1 Active 59150921 Problem History of tobacco use Z87.891 Active 5641610796577 Problem Liver mass R16.0 Active 700332413 Problem Prediabetes R73.09 Active 5627059 Problem Essential hypertension I10 Active 26208388 Problem Body mass index (bmi) 50-59.9 , adult Z68.43 Active 332524340 Problem Paresthesia of both hands R20.2 Acti ve 322465889 Problem Generalized anxiety disorder F41.1 A ctive 59359043 Problem Major depressive disorder, recurrent episode, mild degree F33.0 Active 747650764 Problem 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 Active 677456126 Problem Pulmonary emphysema, unspecified emphysema type J4 3.9 Active 64623854 Problem Splenic artery aneurysm I72.8 Active 26239460 Problem Restrictive lung disease J98.4 Activ e 37201946 Problem Bilateral carpal tunnel syndrome G56.03 Active 53506273 Problem Chronic prescription benzodiazepine use Z79.899 Active 714649889 Problem Primary osteoarthritis involving multiple joints M 15.0 Active 637964018 Problem Isolated proteinuria without specific morphologic lesion R80.0 Active 71077865 ALLERGIES No Known Allergies ENCOUNTERS Encounter Location Date Diagnosis [facility] [id number] [place] [phone] Sep, Influenza-like illness R69 [facility] [id number] [place] [address] Sep, Generalized anxiety disorder F41.1 [facility] [address] [address] Sep, [facility] [address] [address] Aug, [facility] [address] [address] Aug, [facility] [address] [address] Aug, Generalized anxiety disorder F41.1 [facility] [id number] [place] [phone] Aug, Influenza-like illness R69 a nd BMI 50.0-59.9, adult Z68.43 [facility] [id number] [place] [address] Jul, Fatty liver K76.0 ; Restrict jean-paul lung disease J98.4 ; Diastolic dysfunction I51.9 ; Body mass index (bmi) 50-59.9 , adult Z68.43 and Chronic prescription opiate use Z79.899 [facility] [id number] [place] [address] Jul, Generalized anxiety disorder F41.1 [facility] [id number] [place] [address] Jul, Generalized anxiety disorder F41.1 [facility] [id number] [place] [id number] Jul, Primary osteoarthritis invol ving multiple joints M15.0 [place] [address] [id number] [address] [place] [phone] Jun, Generalized anxiety disorder F41.1 [facility] [address] [id number] [address] [place] [phone] Jun, [facility] [address] [facility] [id number] [address] [place] [phone] Jun, Mixed hyperlipidemia E78.2 [facility] [address] [id number] [address] [place] [phone] Jun, Generalized anxiety disorder F41.1 [facility] [address] [facility] [id number] [address] [place] [phone] Jun, Generalized anxiety disorder F41.1 ; Major depressive disorder, recurrent episode, mild degree F33.0 and Habitual self-excoriation F42.4 [facility] [address] [facility] [id number] [address] [place] [address] May, [facility] [address] [facility] [id number] [address] [place] [id number] May, Generalized anxiety disorder F41.1 [facility] [address] [facility] [id number] [address] [place] [address] May, Generalized anxiety disorder F41.1 [facility] [address] [facility] [id number] [address] [place] [phone] May, Primary osteoarthritis invol ving multiple joints M15.0 [facility] [address] [facility] [id number] [address] [place] [id number] Apr, Major depressive disorder, r ecurrent episode, mild degree F33.0 ; Generalized anxiety disorder F41.1 and Excoriation, neurotic L98.1 [facility] [address] [facility] [id number] [address] [place] [address] Apr, Primary osteoarthritis invol ving multiple joints M15.0 [facility] [address] [facility] [id number] [address] [place] [id number] Apr, Essential hypertension I10 a nd Mixed hyperlipidemia E78.2 [facility] [address] [id number] [address] [place] [phone] Apr, Generalized anxiety disorder F41.1 ; Major depressive disorder, recurrent episode, mild degree F33.0 and Habitual self-excoriation F42.4 [facility] [address] [id number] [address] [place] [id number] Mar, Generalized anxiety disorder F41.1 ; Major depressive disorder, recurrent episode, mild degree F33.0 and Habitual self-excoriation F42.4 [facility] [address] [id number] [address] [place] [id number] Mar, Skin lesion L98.9 [facility] [address] [id number] [address] [place] [id number] Mar, Primary osteoarthritis invol ving multiple joints M15.0 [facility] [address] [id number] [address] [place] [phone] Mar, [facility] [address] [id number] [address] [place] [phone] Mar, [facility] [address] [id number] [address] [place] [id number] Feb, Major depressive disorder, r ecurrent episode, mild degree F33.0 ; Generalized anxiety disorder F41.1 and Excoriation, neurotic L98.1 [facility] [address] [id number] [address] [place] [address] Feb, Generalized anxiety disorder F41.1 [facility] [address] [id number] [address] [place] [id number] Feb, Primary osteoarthritis invol ving multiple joints M15.0 [facility] [address] [id number] [address] [place] [id number] Jan, [facility] [address] [id number] [address] [place] [phone] Jan, Essential hypertension I10 ; Splenic artery aneurysm I72.8 ; Liver mass R16.0 ; Restrictive lung disease J98.4 ; Primary osteoarthritis involving multiple joints M15.0 ; Mixed hyperlipidemia E78.2 ; Bilateral carpal tunnel syndrome G56.03 ; Body mass index (bmi) 50-59.9 , adult Z68.43 and History of tobacco use Z87.891 [facility] [address] [id number] [address] [place] [phone] Jan, Major depressive disorder, r ecurrent episode, mild degree F33.0 and Generalized anxiety disorder F41.1 [facility] [address] [id number] [address] [place] [id number] Jan, [facility] [address] [id number] [address] [place] [phone] Jan, Generalized anxiety disorder F41.1 and Major depressive disorder, recurrent episode, mild degree F33.0 [facility] [address] [id number] [address] [place] [phone] Dec, Primary osteoarthritis invol ving multiple joints M15.0 [facility] [address] [id number] [address] [place] [phone] Dec, Generalized anxiety disorder F41.1 [facility] [address] [id number] [address] [place] [phone] Dec, [facility] [address] [id number] [address] [place] [phone] Dec, Major depressive disorder, r ecurrent episode, mild degree F33.0 and Generalized anxiety disorder F41.1 [facility] [address] [id number] [address] [place] [id number] Dec, Generalized anxiety disorder F41.1 and Major depressive disorder, recurrent episode, mild degree F33.0 [facility] [address] [id number] [address] [place] [phone] November, Mild major depression F32.0 and Primary osteoarthritis involving multiple joints M15.0 [facility] [id number] [place] [address] November, Major depressive disorder, r ecurrent episode, mild degree F33.0 and Generalized anxiety disorder F41.1 [place] [id number] [place] [phone] November, Primary osteoarthritis invol ving multiple joints M15.0 ; Essential hypertension I10 ; Prediabetes R73.09 ; Mixed hyperlipidemia E78.2 ; Chronic prescription benzodiazepine use Z79.899 ; Chronic prescription opiate use Z79.899 ; Tobacco use Z72.0 ; Bilateral carpal tunnel syndrome G56.03 and Body mass index (bmi) 50-59.9 , adult Z68.[address] [address] November, Primary osteoarthritis invol ving multiple joints M15.0 and Mild major depression F32.[address] [address] Oct, [address] [address] Oct, Primary osteoarthritis invol ving multiple joints M15.0 ; Essential hypertension I10 ; Prediabetes R73.09 ; Chronic prescription benzodiazepine use Z79.899 ; Chronic prescription opiate use Z79.899 ; Tobacco use Z72.0 ; Mixed hyperlipidemia E78.2 ; Bilateral carpal tunnel syndrome G56.03 ; Body mass index (bmi) 50-59.9 , adult Z68.43 and Encounter for immunization Z23 [place] [id number] [place] [phone] Oct, Major depressive disorder, r ecurrent episode, mild degree F33.0 and Generalized anxiety disorder F41.1 [place] [id number] [place] [phone] Oct, [place] [id number] [place] [id number] Oct, [place] [id number] [place] [id number] Sep, Mild major depression F32.0 [facility] [address] [address] Sep, [facility] [id number] [place] [address] Sep, Mild major depression F32.0 and Generalized anxiety disorder F41.1 [facility] [address] [address] Sep, Paresthesia of both hands R2 0.2 and Cervical radiculopathy M54.12 [facility] [address] [address] Sep, [facility] [address] [address] Sep, [facility] [address] [address] Aug, Paresthesia of both hands R2 0.2 and Neck pain M54.2 [place] [address] [address] Aug, [facility] [id number] [place] [address] Jul, Neck pain M54.2 and Paresthe eddie of both hands R20.2 [place] [id number] [place] [address] Jul, Proteinuria, unspecified typ e R80.9 [place] [address] [address] Jul, Proteinuria, unspecified typ e R80.9 [place] [address] [id number] [address] [place] [phone] Jul, [facility] [address] [address] Jul, Other specified transient ce rebral ischemias G45.8 [facility] [address] [facility] [id number] [address] [place] [phone] Jun, Diastolic dysfunction I51.9 [facility] [address] [facility] [id number] [address] [place] [phone] 08 Jun, 2016 Diastolic dysfunction I51.9 [facility] [address] [id number] [address] [place] [id number] Jun, Major depressive disorder, s david episode, unspecified F32.9 and Anxiety disorder, unspecified F41.9 [place] [address] [address] Jun, [place] [id number] [place] [address] Jun, [place] [address] [address] May, Moderate major depression F3 2.1 and Generalized anxiety disorder F41.1 [place] [id number] [place] [address] 16 May, 2016 Major depressive disorder, s david episode, unspecified F32.9 and Anxiety disorder, unspecified F41.9 [place] [address] [address] 15 May, 2016 [place] [address] [id number] [address] [place] [address] 14 May, 2016 Liver enzyme elevation R74.8 [place] [address] [address] 14 May, 2016 Liver enzyme elevation R74.8 [place] [id number] [place] [address] 10 May, 2016 Shortness of breath on exert ion R06.02 ; Essential hypertension I10 ; Mixed hyperlipidemia E78.2 and Tobacco use Z72.0 [place] [id number] [place] [address] May, [facility] [address] [id number] [address] [place] [address] May, [facility] [address] [id number] [address] [place] [id number] Apr, Anxiety F41.9 and Depression F32.9 [facility] [address] [id number] [address] [place] [id number] Apr, [facility] [address] [id number] [address] [place] [phone] Apr, [facility] [address] [id number] [address] [place] [phone] Mar, Depression F32.9 and Anxiety F41.9 [facility] [address] [id number] [address] [place] [address] Mar, Anxiety F41.9 and Depression F32.9 [facility] [address] [id number] [address] [place] [id number] Mar, Well woman exam (no gynecolo gical exam) Z00.00 [facility] [address] [id number] [address] [place] [address] Mar, [facility] [address] [id number] [address] [place] [phone] Mar, [facility] [address] [id number] [address] [place] [id number] Feb, Dental caries K02.9 [facility] [address] [id number] [address] [place] [phone] Feb, [facility] [address] [id number] [address] [place] [phone] Feb, Anxiety F41.9 and Depression F32.9 [facility] [address] [id number] [address] [place] [id number] Feb, Dental examination Z01.20 [facility] [address] [id number] [address] [place] [phone] Feb, [facility] [address] [id number] [address] [place] [phone] Feb, [facility] [address] [facility] [id number] [address] [place] [id number] Feb, Anxiety F41.9 and Depression F32.9 [facility] [address] [id number] [address] [place] [address] Jan, Severe episode of recurrent major depressive disorder, without psychotic features F33.2 and Anxiety disorder, unspecified F41.9 [facility] [address] [id number] [address] [place] [phone] Jan, [facility] [address] [id number] [address] [place] [phone] Dec, [facility] [address] [id number] [address] [place] [phone] Dec, Anxiety F41.9 and Depression F32.9 [facility] [address] [id number] [address] [place] [phone] Dec, Other specified transient ce rebral ischemias G45.8 and Nocturnal hypoxia G47.34 [place] [address] [facility] [id number] [address] [place] [address] Dec, [facility] [address] [id number] [address] [place] [phone] 17 Dec, 2015 Other specified transient ce rebral ischemias G45.8 [facility] [address] [facility] [id number] [address] [place] [id number] 16 Dec, 2015 Severe episode of recurrent major depressive disorder, without psychotic features F33.2 and Anxiety disorder, unspecified F41.9 [facility] [address] [facility] [id number] [address] [place] [address] Dec, [facility] [address] [address] 13 Dec, 2015 Anxiety F41.9 and Depression F32.9 [place] [address] [address] Dec, Anxiety F41.9 and Depression F32.9 [place] [address] [address] Dec, [place] [address] [address] November, Anxiety F41.9 and Depression F32.[address] [address] November, Severe episode of recurrent major depressive disorder, without psychotic features F33.[address] [address] November, Mixed hyperlipidemia E78.2 [place] [address] [address] November, Anxiety F41.9 and Depression F32.[address] [address] November, Prediabetes R73.09 ; Essenti al hypertension I10 ; Anxiety F41.9 ; Depression F32.9 ; Gastroesophageal reflux disease, esophagitis presence not specified K21.9 ; Primary osteoarthritis involving multiple joints M15.0 ; History of renal cell cancer Z85.528 ; Postnasal drip R09.82 ; Allergic rhinitis, unspecified J30.9 and Tobacco use Z72.0 [place] [address] [address] Oct, Anxiety F41.9 and Depression F32.9 [place] [address] [address] Oct, [place] [address] [address] Oct, [facility] [id number] [place] [address] 14 Sep, 2015 Splenic artery aneurysm I72. 8 [facility] [address] [id number] [address] [place] [id number] 10 Sep, 2015 Depression F32.9 ; Anxiety F 41.9 ; Chronic prescription benzodiazepine use Z79.899 and Splenic artery aneurysm I72.8 [facility] [address] [id number] [address] [place] [address] 10 Sep, 2015 Depression F32.9 and Anxiety F41.9 [facility] [address] [address] Sep, [facility] [id number] [place] [address] 18 Aug, 2015 Dehydration E86.0 ; Diarrhea R19.7 ; Nausea R11.0 and Generalized abdominal pain R10.84 [facility] [address] [id number] [address] [place] [address] Aug, [facility] [address] [address] Jul, Depression F32.9 [facility] [address] [id number] [address] [place] [id number] Jul, [facility] [id number] [place] [address] Jul, Anxiety F41.9 and Depression F32.9 [facility] [address] [id number] [place] [address] Jul, [facility] [address] [id number] [address] [place] [address] Jun, Epigastric pain R10.13 [facility] [address] [id number] [address] [place] [phone] Jun, [facility] [id number] [place] [address] Jun, [facility] [address] [id number] [address] [place] [id number] May, [facility] [address] [id number] [address] [place] [address] May, [facility] [address] [facility] [id number] [address] [place] [id number] Apr, [facility] [address] [facility] [id number] [address] [place] [address] Mar, Anxiety state, unspecified 3 00.00 ; Depression 311 ; Prediabetes 790.29 ; Generalized osteoarthrosis, involving multiple sites 715.09 and Hypertension 401.9 [facility] [address] [facility] [id number] [address] [place] [address] Mar, [facility] [address] [facility] [id number] [address] [place] [phone] Feb, [facility] [address] [facility] [id number] [address] [place] [phone] Jan, [facility] [address] [facility] [id number] [address] [place] [phone] Jan, [facility] [address] [facility] [id number] [address] [place] [phone] Jan, Generalized osteoarthrosis, involving multiple sites 715.09 [facility] [address] [facility] [id number] [address] [place] [phone] 07 Jan, 2015 Hx of renal cell cancer V10. 52 [facility] [address] [facility] [id number] [address] [place] [id number] 30 Dec, 2014 Generalized osteoarthrosis, involving multiple sites 715.09 and Hx of renal cell cancer V10.52 [facility] [address] [facility] [id number] [address] [place] [phone] Dec, [facility] [address] [facility] [id number] [address] [place] [phone] Dec, [facility] [address] [id number] [address] [place] [phone] November, [facility] [address] [id number] [address] [place] [phone] Oct, [facility] [address] [id number] [address] [place] [phone] Oct, [facility] [address] [id number] [address] [place] [phone] Sep, [facility] [address] [id number] [address] [place] [phone] Sep, [facility] [address] [id number] [address] [place] [phone] Sep, [facility] [address] [id number] [address] [place] [id number] Sep, [facility] [address] [id number] [address] [place] [id number] Aug, [facility] [address] [id number] [address] [place] [phone] Aug, IMMUNIZATIONS No Known Immunizations SOCIAL HISTORY Never Assessed REASON FOR VISIT f/u PLAN OF CARE Activity Details Follow Up 2 Months Reason: f/u VITAL SIGNS Height 62 in 2017-01-31 Weight 29 lbs 2017-01-31 Heart Rate 90 bpm 2017-01-31 Respiratory Rate 20 2017-01-31 BMI 5.30 kg/m2 2017-01-31 Blood pressure systolic 110 mmHg 2017-01-31 Blood pressure diastolic 60 mmHg 2017-01-31 MEDICATIONS Medication Instructions Dosage Frequency Start Date End Date Duration S tatus Wellbutrin XL 150 MG Orally Once a day (along wit h 300 mg tablet to equal 450 mg daily 1 tablet in the morning Dec, Active Remeron 15 mg Orally Once a day 1 tablet at bedtime 24h Dec, Active BuPROPion HCl ER (XL) 300 MG Orally Once a day 1 tablet in the morning 24h Active Duloxetine HCl 60 mg Orally Once a day 1 capsule 24h Sep, Active Diazepam 5 mg Orally Once a day 0.5 tablet as needed at bedtime for anxiety 24h Sep, Active RESULTS No Results PROCEDURES Procedure Date Ordered Result Body Site Billing Notes on claim January 31, 2017 INSTRUCTIONS MEDICATIONS ADMINISTERED No Known Medications [...]
--- OUTSIDE RECORDS SUMMARY | 2020-02-08 07:27 | XMS REPORT ---
Author Author Emilee MAY Organization [facility] [place] Address [address] [place] [address] Care Team Providers Care Instrument Technologist Name Role Phone LALOSTEPHANI CONSTANTINOY Unavailable PROBLEMS Type Condition ICD9-CM Code ICP56-AP Code Onset Dates Condition S tatus SNOMED Code Problem Mixed hyperlipidemia E78.2 Active 945728530 Problem Chronic prescription opiate use Z79.899 Active 752107989 Problem Fatty liver K76.0 Active 18966668 7 Problem Tobacco use Z72.0 Active 47131211 0 Problem Obstructive sleep apnea G47.33 Active 59225555 Problem Allergic rhinitis, unspecified J30.9 Active 72312007 Problem Diastolic dysfunction I51.9 Active 7728276 Problem History of renal cell cancer Z85.528 A ctive 677074891 Problem Excoriation, neurotic L98.1 Active 78607082 Problem History of tobacco use Z87.891 Active 5350371065766 Problem Liver mass R16.0 Active 468146699 Problem Prediabetes R73.09 Active 1796389 Problem Essential hypertension I10 Active 98463908 Problem Body mass index (bmi) 50-59.9 , adult Z68.43 Active 992117028 Problem Paresthesia of both hands R20.2 Acti ve 908171066 Problem Generalized anxiety disorder F41.1 A ctive 31134159 Problem Major depressive disorder, recurrent episode, mild degree F33.0 Active 043027657 Problem 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 Active 808104255 Problem Pulmonary emphysema, unspecified emphysema type J4 3.9 Active 86738484 Problem Splenic artery aneurysm I72.8 Active 83405629 Problem Restrictive lung disease J98.4 Activ e 06179110 Problem Bilateral carpal tunnel syndrome G56.03 Active 55586434 Problem Chronic prescription benzodiazepine use Z79.899 Active 697740596 Problem Primary osteoarthritis involving multiple joints M 15.0 Active 840252097 Problem Isolated proteinuria without specific morphologic lesion R80.0 Active 89887830 ALLERGIES No Information ENCOUNTERS Encounter Location Date Diagnosis [facility] [place] [id number] [place] [id number] November, [facility] [place] [id number] [place] [address] November, [facility] [place] [address] [address] November, [facility] [place] [id number] [place] [address] Oct, Generalized anxiety disorder F41.1 [facility] [place] [address] [address] Oct, [facility] [place] [address] [address] Oct, Influenza-like illness R69 [facility] [place] [id number] [place] [address] Sep, Influenza-like illness R69 [facility] [place] [id number] [place] [address] Sep, Generalized anxiety disorder F41.1 [facility] [place] [id number] [place] [phone] Sep, [facility] [place] [id number] [place] [address] Aug, [facility] [place] [id number] [place] [address] Aug, [facility] [place] [address] [address] Aug, Generalized anxiety disorder F41.1 [facility] [address] [id number] [address] [place] [phone] Aug, Influenza-like illness R69 a nd BMI 50.0-59.9, adult Z68.43 [facility] [place] [address] [facility] [id number] [address] [place] [address] Jul, Fatty liver K76.0 ; Restrict jean-paul lung disease J98.4 ; Diastolic dysfunction I51.9 ; Body mass index (bmi) 50-59.9 , adult Z68.43 and Chronic prescription opiate use Z79.899 [facility] [place] [address] [facility] [id number] [address] [place] [phone] Jul, Generalized anxiety disorder F41.1 [facility] [place] [address] [facility] [id number] [address] [place] [phone] Jul, Generalized anxiety disorder F41.1 [place] [address] [id number] [address] [place] [id number] Jul, Primary osteoarthritis invol ving multiple joints M15.0 [facility] [place] [address] [id number] [address] [place] [address] Jun, Generalized anxiety disorder F41.1 [facility] [place] [address] [id number] [address] [place] [phone] Jun, [facility] [place] [address] [id number] [address] [place] [address] Jun, Mixed hyperlipidemia E78.2 [facility] [place] [address] [facility] [id number] [address] [place] [address] Jun, Generalized anxiety disorder F41.1 [facility] [place] [address] [id number] [address] [place] [address] Jun, Generalized anxiety disorder F41.1 ; Major depressive disorder, recurrent episode, mild degree F33.0 and Habitual self-excoriation F42.4 [facility] [place] [address] [id number] [address] [place] [phone] May, [facility] [place] [address] [facility] [id number] [address] [place] [phone] May, Generalized anxiety disorder F41.1 [facility] [place] [address] [facility] [id number] [address] [place] [address] May, Generalized anxiety disorder F41.1 [facility] [place] [address] [id number] [address] [place] [phone] May, Primary osteoarthritis invol ving multiple joints M15.0 [facility] [place] [address] [id number] [address] [place] [phone] Apr, Major depressive disorder, r ecurrent episode, mild degree F33.0 ; Generalized anxiety disorder F41.1 and Excoriation, neurotic L98.1 [facility] [place] [address] [id number] [address] [place] [phone] Apr, Primary osteoarthritis invol ving multiple joints M15.0 [facility] [place] [address] [id number] [address] [place] [address] Apr, Essential hypertension I10 a nd Mixed hyperlipidemia E78.2 [facility] [place] [address] [id number] [address] [place] [address] Apr, Generalized anxiety disorder F41.1 ; Major depressive disorder, recurrent episode, mild degree F33.0 and Habitual self-excoriation F42.4 [facility] [place] [address] [id number] [address] [place] [phone] Mar, Generalized anxiety disorder F41.1 ; Major depressive disorder, recurrent episode, mild degree F33.0 and Habitual self-excoriation F42.4 [facility] [place] [address] [id number] [address] [place] [id number] Mar, Skin lesion L98.9 [facility] [place] [address] [id number] [address] [place] [phone] Mar, Primary osteoarthritis invol ving multiple joints M15.0 [facility] [place] [address] [id number] [address] [place] [address] Mar, [facility] [place] [address] [id number] [address] [place] [address] Mar, [facility] [place] [address] [id number] [address] [place] [address] Feb, Major depressive disorder, r ecurrent episode, mild degree F33.0 ; Generalized anxiety disorder F41.1 and Excoriation, neurotic L98.1 [place] [address] [id number] [place] [phone] Feb, Generalized anxiety disorder F41.1 [place] [address] [id number] [address] [place] [phone] Feb, Primary osteoarthritis invol ving multiple joints M15.0 [place] [address] [id number] [address] [place] [address] Jan, [place] [address] [address] Jan, Essential hypertension I10 ; Splenic artery aneurysm I72.8 ; Liver mass R16.0 ; Restrictive lung disease J98.4 ; Primary osteoarthritis involving multiple joints M15.0 ; Mixed hyperlipidemia E78.2 ; Bilateral carpal tunnel syndrome G56.03 ; Body mass index (bmi) 50-59.9 , adult Z68.43 and History of tobacco use Z87.891 [place] [id number] [place] [address] Jan, Major depressive disorder, r ecurrent episode, mild degree F33.0 and Generalized anxiety disorder F41.1 [place] [id number] [place] [address] Jan, [place] [address] [id number] [address] [place] [address] Jan, Generalized anxiety disorder F41.1 and Major depressive disorder, recurrent episode, mild degree F33.0 [place] [address] [id number] [place] [address] Dec, Primary osteoarthritis invol ving multiple joints M15.0 [place] [address] [id number] [address] [place] [address] Dec, Generalized anxiety disorder F41.1 [place] [address] [facility] [id number] [address] [place] [address] Dec, [facility] [place] [address] [facility] [id number] [address] [place] [address] Dec, Major depressive disorder, r ecurrent episode, mild degree F33.0 and Generalized anxiety disorder F41.1 [facility] [place] [address] [facility] [id number] [address] [place] [address] Dec, Generalized anxiety disorder F41.1 and Major depressive disorder, recurrent episode, mild degree F33.0 [place] [address] [facility] [id number] [address] [place] [address] November, Mild major depression F32.0 and Primary osteoarthritis involving multiple joints M15.0 [place] [address] [id number] [place] [phone] November, Major depressive disorder, r ecurrent episode, mild degree F33.0 and Generalized anxiety disorder F41.1 [place] [address] [facility] [id number] [address] [place] [address] November, Primary osteoarthritis invol ving multiple joints M15.0 ; Essential hypertension I10 ; Prediabetes R73.09 ; Mixed hyperlipidemia E78.2 ; Chronic prescription benzodiazepine use Z79.899 ; Chronic prescription opiate use Z79.899 ; Tobacco use Z72.0 ; Bilateral carpal tunnel syndrome G56.03 and Body mass index (bmi) 50-59.9 , adult Z68.43 [place] [address] [id number] [address] [place] [address] November, Primary osteoarthritis invol ving multiple joints M15.0 and Mild major depression F32.0 [place] [address] [facility] [id number] [address] [place] [address] Oct, [place] [address] [facility] [id number] [address] [place] [address] Oct, Primary osteoarthritis invol ving multiple joints M15.0 ; Essential hypertension I10 ; Prediabetes R73.09 ; Chronic prescription benzodiazepine use Z79.899 ; Chronic prescription opiate use Z79.899 ; Tobacco use Z72.0 ; Mixed hyperlipidemia E78.2 ; Bilateral carpal tunnel syndrome G56.03 ; Body mass index (bmi) 50-59.9 , adult Z68.43 and Encounter for immunization Z23 [facility] [place] [address] [facility] [id number] [address] [place] [id number] 17 Oct, 2016 Major depressive disorder, r ecurrent episode, mild degree F33.0 and Generalized anxiety disorder F41.1 [place] [address] [facility] [id number] [address] [place] [address] Oct, [place] [address] [facility] [id number] [address] [place] [address] Oct, [place] [address] [facility] [id number] [address] [place] [address] Sep, Mild major depression F32.0 [place] [address] [facility] [id number] [address] [place] [address] Sep, [facility] [place] [address] [facility] [id number] [address] [place] [address] Sep, Mild major depression F32.0 and Generalized anxiety disorder F41.1 [place] [address] [facility] [id number] [address] [place] [address] Sep, Paresthesia of both hands R2 0.2 and Cervical radiculopathy M54.12 [facility] [place] [address] [facility] [id number] [address] [place] [address] Sep, [place] [address] [facility] [id number] [address] [place] [address] Sep, [place] [address] [facility] [id number] [address] [place] [address] Aug, Paresthesia of both hands R2 0.2 and Neck pain M54.2 [place] [address] [facility] [id number] [address] [place] [address] Aug, [facility] [place] [address] [facility] [id number] [address] [place] [address] Jul, Neck pain M54.2 and Paresthe eddie of both hands R20.2 [facility] [place] [address] [facility] [id number] [address] [place] [phone] Jul, Proteinuria, unspecified typ e R80.9 [facility] [place] [address] [facility] [id number] [address] [place] [address] Jul, Proteinuria, unspecified typ e R80.9 [facility] [place] [address] [facility] [id number] [address] [place] [address] Jul, [place] [address] [facility] [id number] [address] [place] [address] Jul, Other specified transient ce rebral ischemias G45.8 [facility] [place] [address] [facility] [id number] [address] [place] [address] Jun, Diastolic dysfunction I51.9 [facility] [place] [address] [facility] [id number] [address] [place] [address] Jun, Diastolic dysfunction I51.9 [place] [address] [id number] [address] [place] [address] Jun, Major depressive disorder, s david episode, unspecified F32.9 and Anxiety disorder, unspecified F41.9 [place] [address] [facility] [id number] [address] [place] [phone] Jun, [facility] [place] [address] [facility] [id number] [address] [place] [phone] Jun, [place] [address] [facility] [id number] [address] [place] [address] May, Moderate major depression F3 2.1 and Generalized anxiety disorder F41.1 [place] [address] [facility] [id number] [address] [place] [address] May, Major depressive disorder, s david episode, unspecified F32.9 and Anxiety disorder, unspecified F41.9 [facility] [place] [address] [facility] [id number] [address] [place] [address] 15 May, 2016 [facility] [place] [address] [facility] [id number] [address] [place] [address] 14 May, 2016 Liver enzyme elevation R74.8 [facility] [place] [address] [id number] [address] [place] [address] 14 May, 2016 Liver enzyme elevation R74.8 [facility] [place] [address] [id number] [address] [place] [id number] 10 May, 2016 Shortness of breath on exert ion R06.02 ; Essential hypertension I10 ; Mixed hyperlipidemia E78.2 and Tobacco use Z72.0 [place] [address] [id number] [address] [place] [address] 03 May, 2016 [facility] [place] [address] [id number] [place] [phone] May, [facility] [place] [address] [id number] [address] [place] [address] Apr, Anxiety F41.9 and Depression F32.9 [facility] [place] [address] [id number] [address] [place] [phone] Apr, [facility] [place] [address] [id number] [address] [place] [phone] Apr, [facility] [place] [address] [id number] [address] [place] [address] Mar, Depression F32.9 and Anxiety F41.9 [place] [address] [id number] [address] [place] [phone] 08 Mar, 2016 Anxiety F41.9 and Depression F32.9 [facility] [place] [address] [id number] [address] [place] [address] 06 Mar, 2016 Well woman exam (no gynecolo gical exam) Z00.00 [facility] [address] [id number] [address] [place] [address] Mar, [facility] [place] [address] [id number] [address] [place] [address] Mar, [facility] [address] [id number] [address] [place] [address] [id number] Feb, Dental caries K02.9 [facility] [place] [address] [id number] [address] [place] [phone] Feb, [facility] [place] [address] [id number] [address] [place] [phone] Feb, Anxiety F41.9 and Depression F32.9 [facility] [address] [id number] [address] [place] [id number] Feb, Dental examination Z01.20 [facility] [place] [address] [id number] [address] [place] [phone] Feb, [facility] [place] [address] [id number] [address] [place] [phone] Feb, [facility] [place] [address] [id number] [address] [place] [address] Feb, Anxiety F41.9 and Depression F32.9 [facility] [place] [address] [id number] [address] [place] [phone] Jan, Severe episode of recurrent major depressive disorder, without psychotic features F33.2 and Anxiety disorder, unspecified F41.9 [facility] [place] [address] [id number] [address] [place] [phone] Jan, [facility] [place] [address] [id number] [address] [place] [phone] Dec, [facility] [place] [address] [id number] [address] [place] [phone] Dec, Anxiety F41.9 and Depression F32.9 [facility] [place] [address] [id number] [address] [place] [phone] 24 Dec, 2015 Other specified transient ce rebral ischemias G45.8 and Nocturnal hypoxia G47.34 [facility] [place] [address] [id number] [address] [place] [phone] 18 Dec, 2015 [facility] [place] [address] [id number] [address] [place] [id number] 17 Dec, 2015 Other specified transient ce rebral ischemias G45.8 [facility] [place] [address] [id number] [address] [place] [phone] 16 Dec, 2015 Severe episode of recurrent major depressive disorder, without psychotic features F33.2 and Anxiety disorder, unspecified F41.9 [place] [address] [id number] [address] [place] [phone] Dec, [place] [address] [facility] [id number] [address] [place] [phone] Dec, Anxiety F41.9 and Depression F32.9 [place] [address] [id number] [address] [place] [phone] 07 Dec, 2015 Anxiety F41.9 and Depression F32.9 [place] [address] [id number] [address] [place] [phone] Dec, [facility] [place] [address] [id number] [address] [place] [phone] November, Anxiety F41.9 and Depression F32.9 [facility] [place] [address] [id number] [address] [place] [address] November, Severe episode of recurrent major depressive disorder, without psychotic features F33.2 [place] [address] [id number] [address] [place] [id number] November, Mixed hyperlipidemia E78.2 [facility] [place] [address] [id number] [address] [place] [id number] November, Anxiety F41.9 and Depression F32.9 [place] [address] [id number] 05 Nov, 2015 Prediabetes R73.09 ; Essenti al hypertension I10 ; Anxiety F41.9 ; Depression F32.9 ; Gastroesophageal reflux disease, esophagitis presence not specified K21.9 ; Primary osteoarthritis involving multiple joints M15.0 ; History of renal cell cancer Z85.528 ; Postnasal drip R09.82 ; Allergic rhinitis, unspecified J30.9 and Tobacco use Z72.0 [place] [address] [id number] Oct, Anxiety F41.9 and Depression F32.9 [place] [address] [id number] Oct, [place] [address] [address] Oct, [place] [address] [address] 14 Sep, 2015 Splenic artery aneurysm I72. 8 [place] [address] [address] 10 Sep, 2015 Depression F32.9 ; Anxiety F 41.9 ; Chronic prescription benzodiazepine use Z79.899 and Splenic artery aneurysm I72.8 [place] [address] [id number] 10 Sep, 2015 Depression F32.9 and Anxiety F41.9 [place] [address] [phone] Sep, [place] [address] [id number] 18 Aug, 2015 Dehydration E86.0 ; Diarrhea R19.7 ; Nausea R11.0 and Generalized abdominal pain R10.84 [place] [address] [id number] 03 Aug, 2015 [place] [address] [phone] Jul, Depression F32.9 [facility] [place] [address] [id number] [address] [place] [phone] Jul, [facility] [place] [address] [facility] [id number] [address] [place] [phone] Jul, Anxiety F41.9 and Depression F32.9 [facility] [place] [address] [facility] [id number] [address] [place] [id number] Jul, [facility] [place] [address] [id number] [address] [place] [id number] Jun, Epigastric pain R10.13 [facility] [place] [address] [id number] [address] [place] [phone] Jun, [facility] [place] [address] [facility] [id number] [address] [place] [id number] Jun, [facility] [place] [address] [facility] [id number] [address] [place] [phone] May, [facility] [place] [address] [facility] [id number] [address] [place] [phone] May, [facility] [place] [address] [facility] [id number] [address] [place] [phone] Apr, [facility] [place] [address] [facility] [id number] [address] [place] [id number] Mar, Anxiety state, unspecified 3 00.00 ; Depression 311 ; Prediabetes 790.29 ; Generalized osteoarthrosis, involving multiple sites 715.09 and Hypertension 401.9 [facility] [place] [address] [id number] [address] [place] [id number] Mar, [facility] [place] [address] [facility] [id number] [address] [place] [id number] Feb, [facility] [place] [address] [facility] [id number] [address] [place] [phone] Jan, [facility] [place] [address] [id number] [address] [place] [id number] 09 Jan, 2015 [facility] [address] [id number] [address] [place] [id number] 08 Jan, 2015 Generalized osteoarthrosis, involving multiple sites 715.09 [facility] [address] [id number] [address] [place] [phone] 07 Jan, 2015 Hx of renal cell cancer V10. 52 [facility] [place] [address] [id number] [address] [place] [id number] Dec, Generalized osteoarthrosis, involving multiple sites 715.09 and Hx of renal cell cancer V10.52 [facility] [place] [address] [id number] [address] [place] [phone] Dec, [facility] [place] [address] [id number] [address] [place] [id number] Dec, [facility] [place] [address] [id number] [address] [place] [id number] November, [facility] [place] [address] [id number] [address] [place] [phone] Oct, [facility] [address] [id number] [address] [place] [phone] Oct, [facility] [place] [address] [id number] [address] [place] [phone] Sep, [facility] [address] [id number] [address] [place] [phone] Sep, [facility] [address] [id number] [address] [place] [phone] Sep, [facility] [address] [id number] [address] [place] [phone] Sep, [facility] [address] [id number] [address] [place] [phone] Aug, [facility] [address] [id number] [address] [place] [phone] Aug, IMMUNIZATIONS No Known Immunizations SOCIAL HISTORY Never Assessed REASON FOR VISIT Controlled Med Refill PLAN OF CARE VITAL SIGNS MEDICATIONS Medication Instructions Dosage Frequency Start Date End Date Duration S fabrice Hydrocodone-Acetaminophen 5-325 MG Orally 2 times a day as n eeded for pain take 1 tablet Mar, 28 days Active RESULTS No Results PROCEDURES [...]
--- OUTSIDE RECORDS SUMMARY | 2020-02-08 07:27 | XMS REPORT ---
Author Author Emilee DUNCAN Organization [facility] Address [address] [place] [address] Care Team Providers Care Education Coordinator Name Role Phone BLOSSOM DUNCAN Unavailable PROBLEMS Type Condition ICD9-CM Code XOD71-RY Code Onset Dates Condition S tatus SNOMED Code Problem Mixed hyperlipidemia E78.2 Active 115018451 Problem Chronic prescription opiate use Z79.899 Active 787413426 Problem Fatty liver K76.0 Active 55123174 7 Problem Tobacco use Z72.0 Active 51116735 0 Problem Obstructive sleep apnea G47.33 Active 86683890 Problem Allergic rhinitis, unspecified J30.9 Active 91454553 Problem Diastolic dysfunction I51.9 Active 6000370 Problem History of renal cell cancer Z85.528 A ctive 530527861 Problem Excoriation, neurotic L98.1 Active 59572451 Problem History of tobacco use Z87.891 Active 9936240853031 Problem Liver mass R16.0 Active 618787535 Problem Prediabetes R73.09 Active 1078188 Problem Essential hypertension I10 Active 62577585 Problem Body mass index (bmi) 50-59.9 , adult Z68.43 Active 817372787 Problem Paresthesia of both hands R20.2 Acti ve 447237600 Problem Generalized anxiety disorder F41.1 A ctive 55971193 Problem Major depressive disorder, recurrent episode, mild degree F33.0 Active 709918370 Problem 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 Active 766190085 Problem Pulmonary emphysema, unspecified emphysema type J4 3.9 Active 85534025 Problem Splenic artery aneurysm I72.8 Active 34786216 Problem Restrictive lung disease J98.4 Activ e 92544200 Problem Bilateral carpal tunnel syndrome G56.03 Active 13955140 Problem Chronic prescription benzodiazepine use Z79.899 Active 320499776 Problem Primary osteoarthritis involving multiple joints M 15.0 Active 820061024 Problem Isolated proteinuria without specific morphologic lesion R80.0 Active 68735505 ALLERGIES No Information ENCOUNTERS Encounter Location Date Diagnosis [facility] [id number] [place] [address] November, [facility] [address] [address] November, [facility] [address] [address] November, [facility] [address] [address] Oct, Influenza-like illness R69 [facility] [address] [address] Sep, Influenza-like illness R69 [facility] [address] [address] Sep, Generalized anxiety disorder F41.1 [facility] [address] [address] Sep, [facility] [address] [address] Aug, [facility] [address] [address] Aug, [facility] [id number] [place] [address] Aug, Generalized anxiety disorder F41.1 [facility] [id number] [address] [place] [id number] Aug, Influenza-like illness R69 a nd BMI 50.0-59.9, adult Z68.43 [facility] [id number] [place] [address] Jul, Fatty liver K76.0 ; Restrict jean-paul lung disease J98.4 ; Diastolic dysfunction I51.9 ; Body mass index (bmi) 50-59.9 , adult Z68.43 and Chronic prescription opiate use Z79.899 [facility] [address] [id number] [address] [place] [address] Jul, Generalized anxiety disorder F41.1 [facility] [address] [id number] [address] [place] [address] Jul, Generalized anxiety disorder F41.1 [facility] [address] [id number] [address] [place] [address] Jul, Primary osteoarthritis invol ving multiple joints M15.0 [facility] [address] [id number] [address] [place] [address] Jun, Generalized anxiety disorder F41.1 [facility] [address] [id number] [address] [place] [id number] Jun, [facility] [address] [facility] [id number] [address] [place] [address] Jun, Mixed hyperlipidemia E78.2 [facility] [address] [id number] [address] [place] [id number] Jun, Generalized anxiety disorder F41.1 [facility] [address] [facility] [id number] [address] [place] [id number] Jun, Generalized anxiety disorder F41.1 ; Major depressive disorder, recurrent episode, mild degree F33.0 and Habitual self-excoriation F42.4 [facility] [address] [facility] [id number] [address] [place] [id number] May, [facility] [address] [id number] [address] [place] [id number] May, Generalized anxiety disorder F41.1 [facility] [address] [facility] [id number] [address] [place] [address] May, Generalized anxiety disorder F41.1 [facility] [address] [facility] [id number] [address] [place] [address] May, Primary osteoarthritis invol ving multiple joints M15.0 [facility] [address] [id number] [address] [place] [id number] 09 Apr, 2017 Major depressive disorder, r ecurrent episode, mild degree F33.0 ; Generalized anxiety disorder F41.1 and Excoriation, neurotic L98.1 [facility] [address] [id number] [address] [place] [address] Apr, Primary osteoarthritis invol ving multiple joints M15.0 [facility] [address] [id number] [address] [place] [address] Apr, Essential hypertension I10 a nd Mixed hyperlipidemia E78.2 [facility] [address] [id number] [address] [place] [address] Apr, Generalized anxiety disorder F41.1 ; Major depressive disorder, recurrent episode, mild degree F33.0 and Habitual self-excoriation F42.4 [place] [address] [id number] [address] [place] [id number] Mar, Generalized anxiety disorder F41.1 ; Major depressive disorder, recurrent episode, mild degree F33.0 and Habitual self-excoriation F42.4 [facility] [address] [id number] [address] [place] [address] Mar, Skin lesion L98.9 [facility] [address] [id number] [address] [place] [id number] Mar, Primary osteoarthritis invol ving multiple joints M15.0 [facility] [address] [id number] [address] [place] [id number] Mar, [facility] [address] [id number] [address] [place] [address] Mar, [facility] [address] [id number] [address] [place] [id number] Feb, Major depressive disorder, r ecurrent episode, mild degree F33.0 ; Generalized anxiety disorder F41.1 and Excoriation, neurotic L98.1 [facility] [address] [id number] [address] [place] [address] Feb, Generalized anxiety disorder F41.1 [facility] [address] [id number] [address] [place] [id number] Feb, Primary osteoarthritis invol ving multiple joints M15.0 [facility] [address] [facility] [id number] [address] [place] [address] Jan, [facility] [address] [facility] [id number] [address] [place] [address] Jan, Essential hypertension I10 ; Splenic artery aneurysm I72.8 ; Liver mass R16.0 ; Restrictive lung disease J98.4 ; Primary osteoarthritis involving multiple joints M15.0 ; Mixed hyperlipidemia E78.2 ; Bilateral carpal tunnel syndrome G56.03 ; Body mass index (bmi) 50-59.9 , adult Z68.43 and History of tobacco use Z87.891 [place] [address] [id number] [address] [place] [address] Jan, Major depressive disorder, r ecurrent episode, mild degree F33.0 and Generalized anxiety disorder F41.1 [facility] [address] [facility] [id number] [address] [place] [id number] Jan, [facility] [address] [facility] [id number] [address] [place] [id number] Jan, Generalized anxiety disorder F41.1 and Major depressive disorder, recurrent episode, mild degree F33.0 [facility] [address] [facility] [id number] [address] [place] [address] Dec, Primary osteoarthritis invol ving multiple joints M15.0 [facility] [address] [facility] [id number] [address] [place] [address] Dec, Generalized anxiety disorder F41.1 [facility] [address] [facility] [id number] [address] [place] [address] Dec, [facility] [address] [facility] [id number] [address] [place] [id number] Dec, Major depressive disorder, r ecurrent episode, mild degree F33.0 and Generalized anxiety disorder F41.1 [place] [address] [facility] [id number] [address] [place] [id number] Dec, Generalized anxiety disorder F41.1 and Major depressive disorder, recurrent episode, mild degree F33.0 [place] [address] [id number] [place] [address] November, Mild major depression F32.0 and Primary osteoarthritis involving multiple joints M15.0 [place] [id number] [place] [address] November, Major depressive disorder, r ecurrent episode, mild degree F33.0 and Generalized anxiety disorder F41.1 [place] [id number] [place] [address] November, Primary osteoarthritis invol ving multiple joints M15.0 ; Essential hypertension I10 ; Prediabetes R73.09 ; Mixed hyperlipidemia E78.2 ; Chronic prescription benzodiazepine use Z79.899 ; Chronic prescription opiate use Z79.899 ; Tobacco use Z72.0 ; Bilateral carpal tunnel syndrome G56.03 and Body mass index (bmi) 50-59.9 , adult Z68.43 [place] [address] [place] [address] November, Primary osteoarthritis invol ving multiple joints M15.0 and Mild major depression F32.0 [place] [id number] [place] [address] Oct, [place] [address] [id number] [address] [place] [address] Oct, Primary osteoarthritis invol ving multiple joints M15.0 ; Essential hypertension I10 ; Prediabetes R73.09 ; Chronic prescription benzodiazepine use Z79.899 ; Chronic prescription opiate use Z79.899 ; Tobacco use Z72.0 ; Mixed hyperlipidemia E78.2 ; Bilateral carpal tunnel syndrome G56.03 ; Body mass index (bmi) 50-59.9 , adult Z68.43 and Encounter for immunization Z23 [facility] [address] [id number] [address] [place] [id number] 17 Oct, 2016 Major depressive disorder, r ecurrent episode, mild degree F33.0 and Generalized anxiety disorder F41.1 [facility] [address] [id number] [address] [place] [id number] Oct, [facility] [address] [id number] [address] [place] [address] Oct, [facility] [address] [id number] [address] [place] [address] Sep, Mild major depression F32.0 [facility] [address] [id number] [address] [place] [id number] Sep, [facility] [address] [facility] [id number] [address] [place] [id number] Sep, Mild major depression F32.0 and Generalized anxiety disorder F41.1 [facility] [address] [id number] [address] [place] [address] Sep, Paresthesia of both hands R2 0.2 and Cervical radiculopathy M54.12 [facility] [address] [facility] [id number] [address] [place] [id number] Sep, [facility] [address] [facility] [id number] [address] [place] [id number] Sep, [facility] [address] [facility] [id number] [address] [place] [id number] Aug, Paresthesia of both hands R2 0.2 and Neck pain M54.2 [facility] [address] [facility] [id number] [address] [place] [address] Aug, [facility] [address] [facility] [id number] [address] [place] [phone] Jul, Neck pain M54.2 and Paresthe eddie of both hands R20.2 [facility] [address] [facility] [id number] [address] [place] [id number] Jul, Proteinuria, unspecified typ e R80.9 [facility] [address] [facility] [id number] [address] [place] [address] Jul, Proteinuria, unspecified typ e R80.9 [facility] [address] [facility] [id number] [address] [place] [address] Jul, [facility] [address] [facility] [id number] [address] [place] [id number] Jul, Other specified transient ce rebral ischemias G45.8 [facility] [address] [facility] [id number] [address] [place] [address] Jun, Diastolic dysfunction I51.9 [facility] [address] [facility] [id number] [address] [place] [id number] Jun, Diastolic dysfunction I51.9 [facility] [address] [facility] [id number] [address] [place] [address] Jun, Major depressive disorder, s david episode, unspecified F32.9 and Anxiety disorder, unspecified F41.9 [place] [address] [id number] [address] [place] [address] Jun, [facility] [address] [id number] [address] [place] [id number] Jun, [facility] [address] [facility] [id number] [address] [place] [address] May, Moderate major depression F3 2.1 and Generalized anxiety disorder F41.1 [facility] [address] [facility] [id number] [address] [place] [address] May, Major depressive disorder, s david episode, unspecified F32.9 and Anxiety disorder, unspecified F41.9 [facility] [address] [facility] [id number] [address] [place] [address] May, [facility] [address] [facility] [id number] [address] [place] [address] 14 May, 2016 Liver enzyme elevation R74.8 [facility] [address] [id number] [address] [place] [id number] 14 May, 2016 Liver enzyme elevation R74.8 [facility] [id number] [place] [address] 10 May, 2016 Shortness of breath on exert ion R06.02 ; Essential hypertension I10 ; Mixed hyperlipidemia E78.2 and Tobacco use Z72.0 [facility] [address] [facility] [id number] [place] [phone] 03 May, 2016 [facility] [address] [address] May, [facility] [id number] [place] [address] Apr, Anxiety F41.9 and Depression F32.9 [facility] [id number] [place] [address] Apr, [facility] [address] [id number] [address] [place] [address] Apr, [facility] [address] [address] Mar, Depression F32.9 and Anxiety F41.9 [facility] [id number] [place] [id number] 08 Mar, 2016 Anxiety F41.9 and Depression F32.9 [facility] [address] [id number] [address] [place] [id number] 06 Mar, 2016 Well woman exam (no gynecolo gical exam) Z00.00 [facility] [address] [id number] [address] [place] [address] 02 Mar, 2016 [facility] [address] [id number] [address] [place] [address] 02 Mar, 2016 [facility] [address] [id number] [address] [place] [id number] Feb, Dental caries K02.9 [facility] [address] [id number] [address] [place] [address] Feb, [facility] [address] [id number] [address] [place] [address] Feb, Anxiety F41.9 and Depression F32.9 [facility] [address] [id number] [address] [place] [id number] Feb, Dental examination Z01.20 [facility] [address] [id number] [address] [place] [id number] Feb, [facility] [address] [id number] [address] [place] [address] Feb, [facility] [address] [id number] [address] [place] [address] Feb, Anxiety F41.9 and Depression F32.9 [facility] [address] [id number] [address] [place] [address] Jan, Severe episode of recurrent major depressive disorder, without psychotic features F33.2 and Anxiety disorder, unspecified F41.9 [facility] [address] [id number] [address] [place] [phone] Jan, [facility] [address] [id number] [address] [place] [phone] Dec, [facility] [address] [id number] [address] [place] [address] Dec, Anxiety F41.9 and Depression F32.9 [facility] [address] [facility] [id number] [address] [place] [id number] Dec, Other specified transient ce rebral ischemias G45.8 and Nocturnal hypoxia G47.34 [facility] [address] [id number] [address] [place] [address] Dec, [facility] [address] [id number] 17 Dec, 2015 Other specified transient ce rebral ischemias G45.8 [place] [address] [address] 16 Dec, 2015 Severe episode of recurrent major depressive disorder, without psychotic features F33.2 and Anxiety disorder, unspecified F41.9 [place] [address] [address] 13 Dec, 2015 [place] [address] [address] 13 Dec, 2015 Anxiety F41.9 and Depression F32.[address] [address] 07 Dec, 2015 Anxiety F41.9 and Depression F32.[address] [address] Dec, [place] [address] [address] November, Anxiety F41.9 and Depression F32.9 [place] [address] [address] November, Severe episode of recurrent major depressive disorder, without psychotic features F33.[address] [address] November, Mixed hyperlipidemia E78.2 [place] [address] [address] November, Anxiety F41.9 and Depression F32.[address] [address] 05 Nov, 2015 Prediabetes R73.09 ; Essenti al hypertension I10 ; Anxiety F41.9 ; Depression F32.9 ; Gastroesophageal reflux disease, esophagitis presence not specified K21.9 ; Primary osteoarthritis involving multiple joints M15.0 ; History of renal cell cancer Z85.528 ; Postnasal drip R09.82 ; Allergic rhinitis, unspecified J30.9 and Tobacco use Z72.0 [place] [address] [address] 11 Oct, 2015 Anxiety F41.9 and Depression F32.9 [place] [address] [address] 07 Oct, 2015 [place] [address] [address] Oct, [place] [address] [address] 14 Sep, 2015 Splenic artery aneurysm I72. 8 [place] [address] [address] 10 Sep, 2015 Depression F32.9 ; Anxiety F 41.9 ; Chronic prescription benzodiazepine use Z79.899 and Splenic artery aneurysm I72.8 [place] [address] [address] 10 Sep, 2015 Depression F32.9 and Anxiety F41.9 [place] [address] [address] 02 Sep, 2015 [place] [address] [address] 18 Aug, 2015 Dehydration E86.0 ; Diarrhea R19.7 ; Nausea R11.0 and Generalized abdominal pain R10.84 [place] [address] [address] Aug, [place] [address] [address] Jul, Depression F32.9 [place] [address] [address] Jul, [place] [address] [address] Jul, Anxiety F41.9 and Depression F32.9 [facility] [address] [facility] [id number] [address] [place] [address] Jul, [facility] [address] [facility] [id number] [address] [place] [address] Jun, Epigastric pain R10.13 [facility] [address] [facility] [id number] [address] [place] [phone] Jun, [facility] [address] [facility] [id number] [address] [place] [address] Jun, [facility] [address] [facility] [id number] [address] [place] [phone] May, [facility] [address] [facility] [id number] [address] [place] [address] May, [facility] [address] [facility] [id number] [address] [place] [address] Apr, [facility] [address] [facility] [id number] [address] [place] [address] Mar, Anxiety state, unspecified 3 00.00 ; Depression 311 ; Prediabetes 790.29 ; Generalized osteoarthrosis, involving multiple sites 715.09 and Hypertension 401.9 [facility] [address] [facility] [id number] [address] [place] [address] Mar, [facility] [address] [facility] [id number] [address] [place] [id number] Feb, [facility] [address] [facility] [id number] [address] [place] [phone] Jan, [facility] [address] [facility] [id number] [address] [place] [phone] Jan, [facility] [address] [facility] [id number] [address] [place] [id number] Jan, Generalized osteoarthrosis, involving multiple sites 715.09 [facility] [address] [place] [id number] [address] [place] [id number] Jan, Hx of renal cell cancer V10. 52 [facility] [address] [id number] [address] [place] [id number] Dec, Generalized osteoarthrosis, involving multiple sites 715.09 and Hx of renal cell cancer V10.52 [facility] [address] [id number] [address] [place] [id number] Dec, [facility] [address] [id number] [address] [place] [id number] Dec, [facility] [address] [id number] [address] [place] [id number] November, [facility] [address] [id number] [address] [place] [id number] Oct, [facility] [address] [id number] [address] [place] [phone] Oct, [facility] [address] [id number] [address] [place] [id number] Sep, [facility] [address] [id number] [address] [place] [address] [id number] Sep, [facility] [address] [id number] [address] [place] [id number] Sep, [facility] [address] [id number] [address] [place] [id number] Sep, [facility] [address] [id number] [address] [place] [id number] Aug, [facility] [address] [id number] [address] [place] [id number] Aug, IMMUNIZATIONS No Known Immunizations SOCIAL HISTORY Never Assessed REASON FOR VISIT Controlled Medication Refill PLAN OF CARE VITAL SIGNS MEDICATIONS Medication Instructions Dosage Frequency Start Date End Date Duration S tatus Tizanidine HCl 2 MG Orally every 8 hrs 1 tablet as needed 8h 30 days Active Hydrocodone-Acetaminophen 5-325 MG Orally 2 times a day as n eeded for pain take 1 tablet Feb, 28 days Active RESULTS No Results PROCEDURES [...]
--- OUTSIDE RECORDS SUMMARY | 2020-02-08 07:28 | XMS REPORT ---
Author Author Emilee NO Organization [facility] Address [address] [place] [address] Care Team Providers Care Fitness Assistant Name Role Phone [email or web address] Unavailable PROBLEMS Type Condition ICD9-CM Code HEJ31-WU Code Onset Dates Condition S tatus SNOMED Code Problem Mixed hyperlipidemia E78.2 Active 499885290 Problem Chronic prescription opiate use Z79.899 Active 723849991 Problem Fatty liver K76.0 Active 65277600 7 Problem Tobacco use Z72.0 Active 27476123 0 Problem Obstructive sleep apnea G47.33 Active 26902686 Problem Allergic rhinitis, unspecified J30.9 Active 63052277 Problem Diastolic dysfunction I51.9 Active 5745664 Problem History of renal cell cancer Z85.528 A ctive 876738735 Problem Excoriation, neurotic L98.1 Active 98077445 Problem History of tobacco use Z87.891 Active 5821765105543 Problem Liver mass R16.0 Active 906786645 Problem Prediabetes R73.09 Active 7224637 Problem Essential hypertension I10 Active 83151302 Problem Body mass index (bmi) 50-59.9 , adult Z68.43 Active 353100543 Problem Paresthesia of both hands R20.2 Acti ve 381903658 Problem Generalized anxiety disorder F41.1 A ctive 27262969 Problem Major depressive disorder, recurrent episode, mild degree F33.0 Active 037461381 Problem 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 Active 398204015 Problem Pulmonary emphysema, unspecified emphysema type J4 3.9 Active 89429533 Problem Splenic artery aneurysm I72.8 Active 63297875 Problem Restrictive lung disease J98.4 Activ e 28280152 Problem Bilateral carpal tunnel syndrome G56.03 Active 10714837 Problem Chronic prescription benzodiazepine use Z79.899 Active 022932216 Problem Primary osteoarthritis involving multiple joints M 15.0 Active 232141644 Problem Isolated proteinuria without specific morphologic lesion R80.0 Active 51311465 ALLERGIES No Information ENCOUNTERS Encounter Location Date Diagnosis [facility] [id number] [place] [address] Sep, Influenza-like illness R69 [facility] [id number] [place] [address] Sep, Generalized anxiety disorder F41.1 [facility] [address] [address] Sep, [facility] [address] [address] Aug, [facility] [address] [address] Aug, [facility] [address] [address] Aug, Generalized anxiety disorder F41.1 [facility] [id number] [place] [address] Aug, Influenza-like illness R69 a nd BMI 50.0-59.9, adult Z68.43 [facility] [id number] [place] [address] Jul, Fatty liver K76.0 ; Restrict jean-paul lung disease J98.4 ; Diastolic dysfunction I51.9 ; Body mass index (bmi) 50-59.9 , adult Z68.43 and Chronic prescription opiate use Z79.899 [facility] [id number] [place] [address] Jul, Generalized anxiety disorder F41.1 [facility] [id number] [place] [address] Jul, Generalized anxiety disorder F41.1 [facility] [id number] [place] [address] Jul, Primary osteoarthritis invol ving multiple joints M15.0 [facility] [address] [id number] [address] [place] [address] Jun, Generalized anxiety disorder F41.1 [facility] [address] [facility] [id number] [address] [place] [address] Jun, [facility] [address] [facility] [id number] [address] [place] [address] Jun, Mixed hyperlipidemia E78.2 [facility] [address] [facility] [id number] [address] [place] [address] Jun, Generalized anxiety disorder F41.1 [facility] [address] [facility] [id number] [address] [place] [address] Jun, Generalized anxiety disorder F41.1 ; Major depressive disorder, recurrent episode, mild degree F33.0 and Habitual self-excoriation F42.4 [place] [address] [facility] [id number] [address] [place] [address] May, [facility] [address] [facility] [id number] [address] [place] [address] May, Generalized anxiety disorder F41.1 [facility] [address] [facility] [id number] [address] [place] [address] May, Generalized anxiety disorder F41.1 [facility] [address] [facility] [id number] [address] [place] [address] May, Primary osteoarthritis invol ving multiple joints M15.0 [facility] [address] [facility] [id number] [address] [place] [address] Apr, Major depressive disorder, r ecurrent episode, mild degree F33.0 ; Generalized anxiety disorder F41.1 and Excoriation, neurotic L98.1 [facility] [address] [facility] [id number] [address] [place] [address] Apr, Primary osteoarthritis invol ving multiple joints M15.0 [facility] [address] [facility] [id number] [address] [place] [address] Apr, Essential hypertension I10 a nd Mixed hyperlipidemia E78.2 [facility] [address] [id number] [address] [place] [address] Apr, Generalized anxiety disorder F41.1 ; Major depressive disorder, recurrent episode, mild degree F33.0 and Habitual self-excoriation F42.4 [facility] [address] [id number] [address] [place] [address] Mar, Generalized anxiety disorder F41.1 ; Major depressive disorder, recurrent episode, mild degree F33.0 and Habitual self-excoriation F42.4 [facility] [address] [id number] [address] [place] [address] Mar, Skin lesion L98.9 [facility] [address] [id number] [address] [place] [address] Mar, Primary osteoarthritis invol ving multiple joints M15.0 [facility] [address] [id number] [address] [place] [address] Mar, [facility] [address] [id number] [address] [place] [address] Mar, [facility] [address] [id number] [address] [place] [address] Feb, Major depressive disorder, r ecurrent episode, mild degree F33.0 ; Generalized anxiety disorder F41.1 and Excoriation, neurotic L98.1 [facility] [address] [id number] [address] [place] [address] Feb, Generalized anxiety disorder F41.1 [facility] [address] [id number] [address] [place] [address] Feb, Primary osteoarthritis invol ving multiple joints M15.0 [facility] [address] [id number] [address] [place] [address] Jan, [facility] [address] [id number] [address] [place] [address] 21 [place], 2017 Essential hypertension I10 ; Splenic artery aneurysm I72.8 ; Liver mass R16.0 ; Restrictive lung disease J98.4 ; Primary osteoarthritis involving multiple joints M15.0 ; Mixed hyperlipidemia E78.2 ; Bilateral carpal tunnel syndrome G56.03 ; Body mass index (bmi) 50-59.9 , adult Z68.43 and History of tobacco use Z87.891 [facility] [address] [id number] [address] [place] [address] Jan, Major depressive disorder, r ecurrent episode, mild degree F33.0 and Generalized anxiety disorder F41.1 [facility] [address] [id number] [address] [place] [address] Jan, [facility] [address] [id number] [address] [place] [address] Jan, Generalized anxiety disorder F41.1 and Major depressive disorder, recurrent episode, mild degree F33.0 [facility] [address] [id number] [address] [place] [address] Dec, Primary osteoarthritis invol ving multiple joints M15.0 [facility] [address] [id number] [address] [place] [address] Dec, Generalized anxiety disorder F41.1 [facility] [address] [id number] [address] [place] [address] Dec, [facility] [address] [id number] [address] [place] [address] Dec, Major depressive disorder, r ecurrent episode, mild degree F33.0 and Generalized anxiety disorder F41.1 [facility] [address] [id number] [address] [place] [address] Dec, Generalized anxiety disorder F41.1 and Major depressive disorder, recurrent episode, mild degree F33.0 [facility] [address] [id number] [address] [place] [address] November, Mild major depression F32.0 and Primary osteoarthritis involving multiple joints M15.0 [facility] [id number] [place] [address] November, Major depressive disorder, r ecurrent episode, mild degree F33.0 and Generalized anxiety disorder F41.1 [place] [id number] [place] [address] November, Primary osteoarthritis invol ving multiple joints M15.0 ; Essential hypertension I10 ; Prediabetes R73.09 ; Mixed hyperlipidemia E78.2 ; Chronic prescription benzodiazepine use Z79.899 ; Chronic prescription opiate use Z79.899 ; Tobacco use Z72.0 ; Bilateral carpal tunnel syndrome G56.03 and Body mass index (bmi) 50-59.9 , adult Z68.[address] [address] November, Primary osteoarthritis invol ving multiple joints M15.0 and Mild major depression F32.[address] [address] Oct, [address] [address] Oct, Primary osteoarthritis invol ving multiple joints M15.0 ; Essential hypertension I10 ; Prediabetes R73.09 ; Chronic prescription benzodiazepine use Z79.899 ; Chronic prescription opiate use Z79.899 ; Tobacco use Z72.0 ; Mixed hyperlipidemia E78.2 ; Bilateral carpal tunnel syndrome G56.03 ; Body mass index (bmi) 50-59.9 , adult Z68.43 and Encounter for immunization Z23 [place] [id number] [place] [address] Oct, Major depressive disorder, r ecurrent episode, mild degree F33.0 and Generalized anxiety disorder F41.1 [place] [id number] [place] [address] Oct, [place] [id number] [place] [address] Oct, [place] [id number] [place] [address] Sep, Mild major depression F32.0 [facility] [address] [address] Sep, [facility] [id number] [place] [address] Sep, Mild major depression F32.0 and Generalized anxiety disorder F41.1 [facility] [id number] [place] [address] Sep, Paresthesia of both hands R2 0.2 and Cervical radiculopathy M54.12 [place] [address] [address] Sep, [place] [address] [address] Sep, [facility] [address] [address] Aug, Paresthesia of both hands R2 0.2 and Neck pain M54.2 [place] [address] [address] Aug, [facility] [id number] [place] [address] Jul, Neck pain M54.2 and Paresthe eddie of both hands R20.2 [place] [id number] [place] [address] Jul, Proteinuria, unspecified typ e R80.9 [place] [address] [id number] [place] [address] Jul, Proteinuria, unspecified typ e R80.9 [place] [address] [id number] [place] [address] Jul, [place] [address] [address] Jul, Other specified transient ce rebral ischemias G45.8 [facility] [address] [facility] [id number] [address] [place] [address] Jun, Diastolic dysfunction I51.9 [facility] [address] [facility] [id number] [address] [place] [address] 08 Jun, 2016 Diastolic dysfunction I51.9 [facility] [address] [facility] [id number] [address] [place] [address] Jun, Major depressive disorder, s david episode, unspecified F32.9 and Anxiety disorder, unspecified F41.9 [place] [address] [facility] [id number] [address] [place] [address] Jun, [place] [address] [facility] [id number] [address] [place] [address] Jun, [place] [address] [id number] [place] [address] May, Moderate major depression F3 2.1 and Generalized anxiety disorder F41.1 [place] [address] [facility] [id number] [address] [place] [address] 16 May, 2016 Major depressive disorder, s david episode, unspecified F32.9 and Anxiety disorder, unspecified F41.9 [place] [id number] [place] [address] 15 May, 2016 [place] [address] [facility] [id number] [address] [place] [address] 14 May, 2016 Liver enzyme elevation R74.8 [place] [address] [id number] [place] [address] 14 May, 2016 Liver enzyme elevation R74.8 [place] [address] [place] [id number] [place] [address] 10 May, 2016 Shortness of breath on exert ion R06.02 ; Essential hypertension I10 ; Mixed hyperlipidemia E78.2 and Tobacco use Z72.0 [place] [address] [place] [id number] [place] [address] May, [facility] [address] [id number] [address] [place] [address] May, [facility] [address] [id number] [address] [place] [address] Apr, Anxiety F41.9 and Depression F32.9 [facility] [address] [id number] [address] [place] [address] Apr, [facility] [address] [id number] [address] [place] [address] Apr, [facility] [address] [id number] [address] [place] [address] Mar, Depression F32.9 and Anxiety F41.9 [facility] [address] [id number] [address] [place] [address] Mar, Anxiety F41.9 and Depression F32.9 [facility] [address] [id number] [address] [place] [address] Mar, Well woman exam (no gynecolo gical exam) Z00.00 [facility] [address] [id number] [address] [place] [address] Mar, [facility] [address] [id number] [address] [place] [address] Mar, [facility] [address] [id number] [address] [place] [id number] Feb, Dental caries K02.9 [facility] [address] [id number] [address] [place] [address] Feb, [facility] [address] [id number] [address] [place] [address] Feb, Anxiety F41.9 and Depression F32.9 [facility] [address] [id number] [address] [place] [id number] Feb, Dental examination Z01.20 [facility] [address] [id number] [address] [place] [address] Feb, [facility] [address] [id number] [address] [place] [address] Feb, [facility] [address] [id number] [address] [place] [address] Feb, Anxiety F41.9 and Depression F32.9 [facility] [address] [id number] [address] [place] [address] Jan, Severe episode of recurrent major depressive disorder, without psychotic features F33.2 and Anxiety disorder, unspecified F41.9 [facility] [address] [id number] [address] [place] [address] Jan, [facility] [address] [id number] [address] [place] [address] Dec, [facility] [address] [id number] [address] [place] [address] Dec, Anxiety F41.9 and Depression F32.9 [facility] [address] [id number] [address] [place] [address] Dec, Other specified transient ce rebral ischemias G45.8 and Nocturnal hypoxia G47.34 [facility] [address] [id number] [address] [place] [address] Dec, [facility] [address] [id number] [address] [place] [address] Dec, Other specified transient ce rebral ischemias G45.8 [facility] [address] [facility] [id number] [address] [place] [address] 16 Dec, 2015 Severe episode of recurrent major depressive disorder, without psychotic features F33.2 and Anxiety disorder, unspecified F41.9 [facility] [address] [facility] [id number] [address] [place] [address] Dec, [facility] [address] [address] 13 Dec, 2015 Anxiety F41.9 and Depression F32.9 [place] [address] [address] Dec, Anxiety F41.9 and Depression F32.9 [place] [address] [address] Dec, [place] [address] [address] November, Anxiety F41.9 and Depression F32.[address] [address] November, Severe episode of recurrent major depressive disorder, without psychotic features F33.[address] [address] November, Mixed hyperlipidemia E78.2 [place] [address] [address] November, Anxiety F41.9 and Depression F32.[address] [address] November, Prediabetes R73.09 ; Essenti al hypertension I10 ; Anxiety F41.9 ; Depression F32.9 ; Gastroesophageal reflux disease, esophagitis presence not specified K21.9 ; Primary osteoarthritis involving multiple joints M15.0 ; History of renal cell cancer Z85.528 ; Postnasal drip R09.82 ; Allergic rhinitis, unspecified J30.9 and Tobacco use Z72.0 [place] [address] [address] Oct, Anxiety F41.9 and Depression F32.9 [place] [address] [address] Oct, [place] [address] [address] Oct, [facility] [address] [facility] [id number] [address] [place] [address] 14 Sep, 2015 Splenic artery aneurysm I72. 8 [facility] [address] [place] [id number] [place] [address] 10 Sep, 2015 Depression F32.9 ; Anxiety F 41.9 ; Chronic prescription benzodiazepine use Z79.899 and Splenic artery aneurysm I72.8 [facility] [address] [facility] [id number] [address] [place] [address] 10 Sep, 2015 Depression F32.9 and Anxiety F41.9 [facility] [address] [address] Sep, [facility] [address] [place] [id number] [place] [address] 18 Aug, 2015 Dehydration E86.0 ; Diarrhea R19.7 ; Nausea R11.0 and Generalized abdominal pain R10.84 [facility] [address] [place] [id number] [address] [place] [address] Aug, [facility] [id number] [place] [address] Jul, Depression F32.9 [facility] [address] [place] [id number] [place] [address] Jul, [facility] [address] [place] [id number] [place] [address] Jul, Anxiety F41.9 and Depression F32.9 [facility] [address] [place] [id number] [place] [address] Jul, [facility] [address] [place] [id number] [place] [address] Jun, Epigastric pain R10.13 [facility] [address] [place] [id number] [place] [address] Jun, [facility] [address] [place] [id number] [place] [address] Jun, [facility] [address] [id number] [address] [place] [address] May, [facility] [address] [facility] [id number] [address] [place] [address] May, [facility] [address] [facility] [id number] [address] [place] [address] Apr, [facility] [address] [facility] [id number] [address] [place] [address] Mar, Anxiety state, unspecified 3 00.00 ; Depression 311 ; Prediabetes 790.29 ; Generalized osteoarthrosis, involving multiple sites 715.09 and Hypertension 401.9 [facility] [address] [facility] [id number] [address] [place] [address] Mar, [facility] [address] [facility] [id number] [address] [place] [address] Feb, [facility] [address] [facility] [id number] [address] [place] [address] Jan, [facility] [address] [facility] [id number] [address] [place] [address] Jan, [facility] [address] [facility] [id number] [address] [place] [address] Jan, Generalized osteoarthrosis, involving multiple sites 715.09 [facility] [address] [facility] [id number] [address] [place] [address] 07 Jan, 2015 Hx of renal cell cancer V10. 52 [facility] [address] [facility] [id number] [address] [place] [address] 30 Dec, 2014 Generalized osteoarthrosis, involving multiple sites 715.09 and Hx of renal cell cancer V10.52 [facility] [address] [facility] [id number] [address] [place] [address] Dec, [facility] [address] [facility] [id number] [address] [place] [address] Dec, [facility] [address] [id number] [address] [place] [address] November, [facility] [address] [id number] [address] [place] [phone] Oct, [facility] [address] [id number] [address] [place] [id number] Oct, [facility] [address] [id number] [address] [place] [id number] Sep, [facility] [address] [id number] [address] [place] [phone] Sep, [facility] [address] [id number] [address] [place] [id number] Sep, [facility] [address] [id number] [address] [place] [id number] Sep, [facility] [address] [id number] [address] [place] [id number] Aug, [facility] [address] [id number] [address] [place] [phone] Aug, IMMUNIZATIONS No Known Immunizations SOCIAL HISTORY Never Assessed REASON FOR VISIT med refill PLAN OF CARE VITAL SIGNS MEDICATIONS Medication Instructions Dosage Frequency Start Date End Date Duration S tatus Remeron 15 mg Orally Once a day 1 tablet at bedtime 24h Dec, 30 day(s) Active RESULTS No Results PROCEDURES [...]
--- OUTSIDE RECORDS SUMMARY | 2020-02-08 07:28 | XMS REPORT ---
Author Author Emilee NO Organization [facility] Address [address] [place] [address] Care Team Providers Care Freight Solicitor Name Role Phone [email or web address] Unavailable PROBLEMS Type Condition ICD9-CM Code RFI10-NT Code Onset Dates Condition S tatus SNOMED Code Problem Mixed hyperlipidemia E78.2 Active 616118261 Problem Chronic prescription opiate use Z79.899 Active 747558588 Problem Fatty liver K76.0 Active 99498827 7 Problem Tobacco use Z72.0 Active 51522371 0 Problem Obstructive sleep apnea G47.33 Active 90196699 Problem Allergic rhinitis, unspecified J30.9 Active 14438255 Problem Diastolic dysfunction I51.9 Active 5827058 Problem History of renal cell cancer Z85.528 A ctive 610453064 Problem Excoriation, neurotic L98.1 Active 74448545 Problem History of tobacco use Z87.891 Active 7471377064557 Problem Liver mass R16.0 Active 479860061 Problem Prediabetes R73.09 Active 3817970 Problem Essential hypertension I10 Active 21057742 Problem Body mass index (bmi) 50-59.9 , adult Z68.43 Active 577982549 Problem Paresthesia of both hands R20.2 Acti ve 281253498 Problem Generalized anxiety disorder F41.1 A ctive 40527155 Problem Major depressive disorder, recurrent episode, mild degree F33.0 Active 264684622 Problem 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 Active 847531104 Problem Pulmonary emphysema, unspecified emphysema type J4 3.9 Active 96446988 Problem Splenic artery aneurysm I72.8 Active 61920606 Problem Restrictive lung disease J98.4 Activ e 97860013 Problem Bilateral carpal tunnel syndrome G56.03 Active 09825560 Problem Chronic prescription benzodiazepine use Z79.899 Active 665960058 Problem Primary osteoarthritis involving multiple joints M 15.0 Active 775039652 Problem Isolated proteinuria without specific morphologic lesion R80.0 Active 99735849 ALLERGIES No Information ENCOUNTERS Encounter Location Date Diagnosis [facility] [address] [address] November, [facility] [address] [address] November, [facility] [address] [address] November, [facility] [address] [address] Oct, Influenza-like illness R69 [facility] [address] [address] Sep, Influenza-like illness R69 [facility] [address] [address] Sep, Generalized anxiety disorder F41.1 [facility] [address] [address] Sep, [facility] [address] [address] Aug, [facility] [address] [place] [id number] [place] [address] Aug, [facility] [address] [id number] [address] [place] [address] Aug, Generalized anxiety disorder F41.1 [facility] [address] [id number] [address] [place] [id number] 06 Aug, 2017 Influenza-like illness R69 a nd BMI 50.0-59.9, adult Z68.43 [facility] [address] [id number] [address] [place] [address] Jul, 2018 Fatty liver K76.0 ; Restrict jean-paul lung disease J98.4 ; Diastolic dysfunction I51.9 ; Body mass index (bmi) 50-59.9 , adult Z68.43 and Chronic prescription opiate use Z79.899 [facility] [address] [facility] [id number] [address] [place] [address] Jul, Generalized anxiety disorder F41.1 [facility] [address] [facility] [id number] [address] [place] [id number] Jul, Generalized anxiety disorder F41.1 [facility] [address] [facility] [id number] [address] [place] [id number] Jul, Primary osteoarthritis invol ving multiple joints M15.0 [facility] [address] [id number] [address] [place] [address] Jun, Generalized anxiety disorder F41.1 [facility] [address] [facility] [id number] [address] [place] [address] Jun, [facility] [address] [facility] [id number] [address] [place] [id number] Jun, Mixed hyperlipidemia E78.2 [facility] [address] [facility] [id number] [address] [place] [address] Jun, Generalized anxiety disorder F41.1 [facility] [address] [facility] [id number] [address] [place] [address] Jun, Generalized anxiety disorder F41.1 ; Major depressive disorder, recurrent episode, mild degree F33.0 and Habitual self-excoriation F42.4 [facility] [address] [facility] [id number] [address] [place] [address] May, [facility] [address] [facility] [id number] [address] [place] [address] May, Generalized anxiety disorder F41.1 [facility] [address] [facility] [id number] [address] [place] [id number] May, Generalized anxiety disorder F41.1 [facility] [address] [facility] [id number] [address] [place] [id number] May, Primary osteoarthritis invol ving multiple joints M15.0 [facility] [address] [id number] [address] [place] [id number] 09 Apr, 2017 Major depressive disorder, r ecurrent episode, mild degree F33.0 ; Generalized anxiety disorder F41.1 and Excoriation, neurotic L98.1 [facility] [address] [id number] [address] [place] [address] Apr, Primary osteoarthritis invol ving multiple joints M15.0 [facility] [address] [id number] [address] [place] [address] Apr, Essential hypertension I10 a nd Mixed hyperlipidemia E78.2 [facility] [address] [id number] [address] [place] [address] Apr, Generalized anxiety disorder F41.1 ; Major depressive disorder, recurrent episode, mild degree F33.0 and Habitual self-excoriation F42.4 [facility] [address] [id number] [address] [place] [address] Mar, Generalized anxiety disorder F41.1 ; Major depressive disorder, recurrent episode, mild degree F33.0 and Habitual self-excoriation F42.4 [facility] [address] [id number] [address] [place] [address] Mar, Skin lesion L98.9 [facility] [address] [id number] [address] [place] [address] Mar, Primary osteoarthritis invol ving multiple joints M15.0 [facility] [address] [id number] [address] [place] [address] Mar, [facility] [address] [id number] [address] [place] [address] Mar, [facility] [address] [id number] [address] [place] [address] Feb, Major depressive disorder, r ecurrent episode, mild degree F33.0 ; Generalized anxiety disorder F41.1 and Excoriation, neurotic L98.1 [facility] [address] [id number] [address] [place] [address] Feb, Generalized anxiety disorder F41.1 [facility] [address] [id number] [address] [place] [address] Feb, Primary osteoarthritis invol ving multiple joints M15.0 [facility] [address] [id number] [address] [place] [address] Jan, [facility] [address] [address] [id number] [place] [address] Jan, Essential hypertension I10 ; Splenic artery aneurysm I72.8 ; Liver mass R16.0 ; Restrictive lung disease J98.4 ; Primary osteoarthritis involving multiple joints M15.0 ; Mixed hyperlipidemia E78.2 ; Bilateral carpal tunnel syndrome G56.03 ; Body mass index (bmi) 50-59.9 , adult Z68.43 and History of tobacco use Z87.891 [place] [address] [address] Jan, Major depressive disorder, r ecurrent episode, mild degree F33.0 and Generalized anxiety disorder F41.1 [place] [address] [address] Jan, [place] [address] [place] [id number] [place] [address] Jan, Generalized anxiety disorder F41.1 and Major depressive disorder, recurrent episode, mild degree F33.0 [place] [address] [place] [id number] [address] [place] [address] Dec, Primary osteoarthritis invol ving multiple joints M15.0 [facility] [address] [id number] [address] [place] [address] Dec, Generalized anxiety disorder F41.1 [place] [address] [place] [id number] [address] [place] [address] Dec, [place] [address] [place] [id number] [address] [place] [id number] Dec, Major depressive disorder, r ecurrent episode, mild degree F33.0 and Generalized anxiety disorder F41.1 [place] [address] [facility] [id number] [address] [place] [address] Dec, Generalized anxiety disorder F41.1 and Major depressive disorder, recurrent episode, mild degree F33.0 [place] [address] [place] [id number] [address] [place] [address] November, Mild major depression F32.0 and Primary osteoarthritis involving multiple joints M15.0 [place] [address] [facility] [id number] [address] [place] [address] November, Major depressive disorder, r ecurrent episode, mild degree F33.0 and Generalized anxiety disorder F41.1 [place] [address] [place] [id number] [address] [place] [address] November, Primary osteoarthritis invol ving multiple joints M15.0 ; Essential hypertension I10 ; Prediabetes R73.09 ; Mixed hyperlipidemia E78.2 ; Chronic prescription benzodiazepine use Z79.899 ; Chronic prescription opiate use Z79.899 ; Tobacco use Z72.0 ; Bilateral carpal tunnel syndrome G56.03 and Body mass index (bmi) 50-59.9 , adult Z68.43 [place] [address] [place] [id number] [address] [place] [address] November, Primary osteoarthritis invol ving multiple joints M15.0 and Mild major depression F32.0 [place] [address] [place] [id number] [address] [place] [address] Oct, [place] [address] [place] [id number] [address] [place] [address] Oct, Primary osteoarthritis invol ving multiple joints M15.0 ; Essential hypertension I10 ; Prediabetes R73.09 ; Chronic prescription benzodiazepine use Z79.899 ; Chronic prescription opiate use Z79.899 ; Tobacco use Z72.0 ; Mixed hyperlipidemia E78.2 ; Bilateral carpal tunnel syndrome G56.03 ; Body mass index (bmi) 50-59.9 , adult Z68.43 and Encounter for immunization Z23 [facility] [address] [facility] [id number] [address] [place] [address] Oct, Major depressive disorder, r ecurrent episode, mild degree F33.0 and Generalized anxiety disorder F41.1 [facility] [address] [id number] [address] [place] [address] Oct, [facility] [address] [facility] [id number] [address] [place] [id number] Oct, [facility] [address] [facility] [id number] [address] [place] [id number] Sep, Mild major depression F32.0 [facility] [address] [facility] [id number] [address] [place] [address] Sep, [facility] [address] [facility] [id number] [address] [place] [address] Sep, Mild major depression F32.0 and Generalized anxiety disorder F41.1 [facility] [address] [facility] [id number] [address] [place] [id number] Sep, Paresthesia of both hands R2 0.2 and Cervical radiculopathy M54.12 [facility] [address] [facility] [id number] [address] [place] [id number] Sep, [facility] [address] [facility] [id number] [address] [place] [address] Sep, [facility] [address] [facility] [id number] [address] [place] [address] Aug, Paresthesia of both hands R2 0.2 and Neck pain M54.2 [facility] [address] [facility] [id number] [address] [place] [address] Aug, [facility] [address] [facility] [id number] [address] [place] [address] Jul, Neck pain M54.2 and Paresthe eddie of both hands R20.2 [facility] [address] [facility] [id number] [address] [place] [address] Jul, Proteinuria, unspecified typ e R80.9 [facility] [address] [facility] [id number] [address] [place] [address] Jul, Proteinuria, unspecified typ e R80.9 [facility] [address] [facility] [id number] [address] [place] [id number] Jul, [facility] [address] [facility] [id number] [address] [place] [address] Jul, Other specified transient ce rebral ischemias G45.8 [place] [address] [facility] [id number] [address] [place] [address] Jun, Diastolic dysfunction I51.9 [place] [address] [facility] [id number] [address] [place] [address] Jun, Diastolic dysfunction I51.9 [place] [address] [facility] [id number] [address] [place] [address] Jun, Major depressive disorder, s david episode, unspecified F32.9 and Anxiety disorder, unspecified F41.9 [place] [address] [facility] [id number] [address] [place] [address] Jun, [place] [address] [place] [id number] [address] [place] [id number] Jun, [place] [address] [facility] [id number] [address] [place] [address] May, Moderate major depression F3 2.1 and Generalized anxiety disorder F41.1 [place] [address] [facility] [id number] [address] [place] [address] May, Major depressive disorder, s david episode, unspecified F32.9 and Anxiety disorder, unspecified F41.9 [facility] [address] [facility] [id number] [address] [place] [address] May, [facility] [address] [facility] [id number] [address] [place] [id number] 14 May, 2016 Liver enzyme elevation R74.8 [facility] [address] [address] 14 May, 2016 Liver enzyme elevation R74.8 [facility] [address] [id number] 10 May, 2016 Shortness of breath on exert ion R06.02 ; Essential hypertension I10 ; Mixed hyperlipidemia E78.2 and Tobacco use Z72.0 [facility] [address] [address] 03 May, 2016 [facility] [address] [address] May, [facility] [address] [address] 06 Apr, 2016 Anxiety F41.9 and Depression F32.9 [facility] [address] [address] Apr, [facility] [address] [address] 05 Apr, 2016 [facility] [address] [id number] 22 Mar, 2016 Depression F32.9 and Anxiety F41.9 [facility] [address] [address] 08 Mar, 2016 Anxiety F41.9 and Depression F32.9 [facility] [address] [place] [id number] [place] [address] 06 Mar, 2016 Well woman exam (no gynecolo gical exam) Z00.00 [facility] [address] [place] [id number] [address] [place] [address] 02 Mar, 2016 [facility] [address] [place] [id number] [address] [place] [address] Mar, [facility] [address] [id number] [address] [place] [id number] Feb, Dental caries K02.9 [facility] [address] [id number] [address] [place] [address] Feb, [facility] [address] [id number] [address] [place] [address] Feb, Anxiety F41.9 and Depression F32.9 [facility] [address] [id number] [address] [place] [id number] Feb, Dental examination Z01.20 [facility] [address] [id number] [address] [place] [address] Feb, [facility] [address] [id number] [address] [place] [id number] Feb, [facility] [address] [facility] [id number] [address] [place] [address] Feb, Anxiety F41.9 and Depression F32.9 [facility] [address] [id number] [address] [place] [address] Jan, Severe episode of recurrent major depressive disorder, without psychotic features F33.2 and Anxiety disorder, unspecified F41.9 [facility] [address] [facility] [id number] [address] [place] [address] Jan, [facility] [address] [facility] [id number] [address] [place] [address] Dec, [facility] [address] [facility] [id number] [address] [place] [id number] Dec, Anxiety F41.9 and Depression F32.9 [facility] [address] [facility] [id number] [address] [place] [address] Dec, Other specified transient ce rebral ischemias G45.8 and Nocturnal hypoxia G47.34 [facility] [address] [facility] [id number] [address] [place] [address] Dec, [facility] [address] [id number] 17 Dec, 2015 Other specified transient ce rebral ischemias G45.8 [place] [address] [address] 16 Dec, 2015 Severe episode of recurrent major depressive disorder, without psychotic features F33.2 and Anxiety disorder, unspecified F41.9 [place] [address] [address] 13 Dec, 2015 [place] [address] [address] 13 Dec, 2015 Anxiety F41.9 and Depression F32.9 [place] [address] [address] 07 Dec, 2015 Anxiety F41.9 and Depression F32.9 [place] [address] [address] Dec, [place] [address] [address] November, Anxiety F41.9 and Depression F32.9 [place] [address] [address] November, Severe episode of recurrent major depressive disorder, without psychotic features F33.2 [place] [address] [address] November, Mixed hyperlipidemia E78.2 [place] [address] [address] November, Anxiety F41.9 and Depression F32.9 [place] [address] [address] 05 Nov, 2015 Prediabetes R73.09 ; Essenti al hypertension I10 ; Anxiety F41.9 ; Depression F32.9 ; Gastroesophageal reflux disease, esophagitis presence not specified K21.9 ; Primary osteoarthritis involving multiple joints M15.0 ; History of renal cell cancer Z85.528 ; Postnasal drip R09.82 ; Allergic rhinitis, unspecified J30.9 and Tobacco use Z72.0 [place] [address] [address] 11 Oct, 2015 Anxiety F41.9 and Depression F32.9 [place] [address] [address] 07 Oct, 2015 [place] [address] [address] Oct, [place] [address] [address] 14 Sep, 2015 Splenic artery aneurysm I72. 8 [place] [address] [address] 10 Sep, 2015 Depression F32.9 ; Anxiety F 41.9 ; Chronic prescription benzodiazepine use Z79.899 and Splenic artery aneurysm I72.8 [place] [address] [address] 10 Sep, 2015 Depression F32.9 and Anxiety F41.9 [place] [address] [address] 02 Sep, 2015 [place] [address] [address] 18 Aug, 2015 Dehydration E86.0 ; Diarrhea R19.7 ; Nausea R11.0 and Generalized abdominal pain R10.84 [place] [address] [address] Aug, [place] [address] [address] Jul, Depression F32.9 [place] [address] [address] Jul, [place] [address] [address] Jul, Anxiety F41.9 and Depression F32.9 [facility] [address] [id number] [address] [place] [address] Jul, [facility] [address] [facility] [id number] [address] [place] [address] Jun, Epigastric pain R10.13 [facility] [address] [facility] [id number] [address] [place] [address] Jun, [facility] [address] [id number] [address] [place] [address] Jun, [facility] [address] [facility] [id number] [address] [place] [address] May, [facility] [address] [facility] [id number] [address] [place] [address] May, [facility] [address] [facility] [id number] [address] [place] [id number] Apr, [facility] [address] [facility] [id number] [address] [place] [address] Mar, Anxiety state, unspecified 3 00.00 ; Depression 311 ; Prediabetes 790.29 ; Generalized osteoarthrosis, involving multiple sites 715.09 and Hypertension 401.9 [facility] [address] [facility] [id number] [address] [place] [address] Mar, [facility] [address] [facility] [id number] [address] [place] [id number] Feb, [facility] [address] [facility] [id number] [address] [place] [address] Jan, [facility] [address] [facility] [id number] [address] [place] [address] Jan, [facility] [address] [facility] [id number] [address] [place] [address] Jan, Generalized osteoarthrosis, involving multiple sites 715.09 [facility] [address] [id number] [address] [place] [address] Jan, Hx of renal cell cancer V10. 52 [facility] [address] [id number] [address] [place] [address] Dec, Generalized osteoarthrosis, involving multiple sites 715.09 and Hx of renal cell cancer V10.52 [facility] [address] [id number] [address] [place] [id number] Dec, [facility] [address] [id number] [address] [place] [id number] Dec, [facility] [address] [id number] [address] [place] [id number] November, [facility] [address] [id number] [address] [place] [id number] Oct, [facility] [address] [id number] [address] [place] [phone] Oct, [facility] [address] [id number] [address] [place] [id number] Sep, [facility] [address] [id number] [address] [place] [phone] Sep, [facility] [address] [id number] [address] [place] [id number] Sep, [facility] [address] [address] [id number] [address] [place] [id number] Sep, [facility] [address] [id number] [address] [place] [id number] Aug, [facility] [address] [id number] [address] [place] [id number] Aug, IMMUNIZATIONS No Known Immunizations SOCIAL HISTORY Never Assessed REASON FOR VISIT Diazepam Refill PLAN OF CARE VITAL SIGNS MEDICATIONS Medication Instructions Dosage Frequency Start Date End Date Duration S tatus Diazepam 5 mg Orally Once a day at bedtime as needed 0.5 tablet Sep, 30 days Active RESULTS No Results PROCEDURES [...]
--- OUTSIDE RECORDS SUMMARY | 2020-02-08 07:28 | XMS REPORT ---
Author Author Emilee MAY Organization [facility] Address [address] [place] [address] Care Team Providers Care Biosolids Management Technician Name Role Phone LALOSTEPHANI CONSTANTINOY Unavailable PROBLEMS Type Condition ICD9-CM Code UEN81-RJ Code Onset Dates Condition S tatus SNOMED Code Problem Mixed hyperlipidemia E78.2 Active 942205642 Problem Chronic prescription opiate use Z79.899 Active 827919951 Problem Fatty liver K76.0 Active 23669025 7 Problem Tobacco use Z72.0 Active 26834721 0 Problem Obstructive sleep apnea G47.33 Active 04842684 Problem Allergic rhinitis, unspecified J30.9 Active 70186319 Problem Diastolic dysfunction I51.9 Active 8962415 Problem History of renal cell cancer Z85.528 A ctive 712516835 Problem Excoriation, neurotic L98.1 Active 31087357 Problem History of tobacco use Z87.891 Active 4135803522767 Problem Liver mass R16.0 Active 548201322 Problem Prediabetes R73.09 Active 0231594 Problem Essential hypertension I10 Active 33504584 Problem Body mass index (bmi) 50-59.9 , adult Z68.43 Active 039118695 Problem Paresthesia of both hands R20.2 Acti ve 653402083 Problem Generalized anxiety disorder F41.1 A ctive 81497783 Problem Major depressive disorder, recurrent episode, mild degree F33.0 Active 139053959 Problem 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 Active 946244119 Problem Pulmonary emphysema, unspecified emphysema type J4 3.9 Active 65821565 Problem Splenic artery aneurysm I72.8 Active 68997894 Problem Restrictive lung disease J98.4 Activ e 51925314 Problem Bilateral carpal tunnel syndrome G56.03 Active 38373009 Problem Chronic prescription benzodiazepine use Z79.899 Active 772507734 Problem Primary osteoarthritis involving multiple joints M 15.0 Active 126227073 Problem Isolated proteinuria without specific morphologic lesion R80.0 Active 51767730 ALLERGIES No Information ENCOUNTERS Encounter Location Date Diagnosis [facility] [id number] [place] [address] November, [facility] [id number] [place] [address] November, [facility] [address] [address] November, [facility] [id number] [place] [address] Oct, Generalized anxiety disorder F41.1 [facility] [address] [address] Oct, [facility] [address] [address] Oct, Influenza-like illness R69 [facility] [id number] [place] [address] Sep, Influenza-like illness R69 [facility] [id number] [place] [address] Sep, Generalized anxiety disorder F41.1 [facility] [id number] [place] [address] Sep, [facility] [id number] [place] [address] Aug, [facility] [id number] [place] [address] Aug, [facility] [address] [address] Aug, Generalized anxiety disorder F41.1 [facility] [id number] [place] [address] Aug, Influenza-like illness R69 a nd BMI 50.0-59.9, adult Z68.43 [facility] [address] [facility] [id number] [address] [place] [address] Jul, Fatty liver K76.0 ; Restrict jean-paul lung disease J98.4 ; Diastolic dysfunction I51.9 ; Body mass index (bmi) 50-59.9 , adult Z68.43 and Chronic prescription opiate use Z79.899 [facility] [address] [facility] [id number] [address] [place] [address] Jul, Generalized anxiety disorder F41.1 [facility] [address] [facility] [id number] [address] [place] [address] Jul, Generalized anxiety disorder F41.1 [place] [id number] [place] [address] Jul, Primary osteoarthritis invol ving multiple joints M15.0 [facility] [address] [id number] [address] [place] [address] Jun, Generalized anxiety disorder F41.1 [facility] [address] [id number] [address] [place] [id number] Jun, [facility] [id number] [place] [address] Jun, Mixed hyperlipidemia E78.2 [facility] [address] [facility] [id number] [address] [place] [address] Jun, Generalized anxiety disorder F41.1 [facility] [id number] [address] [place] [address] Jun, Generalized anxiety disorder F41.1 ; Major depressive disorder, recurrent episode, mild degree F33.0 and Habitual self-excoriation F42.4 [facility] [address] [id number] [address] [place] [address] May, [facility] [address] [facility] [id number] [address] [place] [address] May, Generalized anxiety disorder F41.1 [facility] [address] [facility] [id number] [address] [place] [address] May, Generalized anxiety disorder F41.1 [facility] [address] [id number] [address] [place] [address] May, Primary osteoarthritis invol ving multiple joints M15.0 [facility] [address] [id number] [address] [place] [address] Apr, Major depressive disorder, r ecurrent episode, mild degree F33.0 ; Generalized anxiety disorder F41.1 and Excoriation, neurotic L98.1 [facility] [address] [id number] [address] [place] [address] Apr, Primary osteoarthritis invol ving multiple joints M15.0 [facility] [address] [id number] [address] [place] [address] Apr, Essential hypertension I10 a nd Mixed hyperlipidemia E78.2 [facility] [address] [id number] [address] [place] [address] Apr, Generalized anxiety disorder F41.1 ; Major depressive disorder, recurrent episode, mild degree F33.0 and Habitual self-excoriation F42.4 [facility] [address] [id number] [address] [place] [address] Mar, Generalized anxiety disorder F41.1 ; Major depressive disorder, recurrent episode, mild degree F33.0 and Habitual self-excoriation F42.4 [facility] [address] [id number] [address] [place] [address] Mar, Skin lesion L98.9 [facility] [address] [id number] [address] [place] [address] Mar, Primary osteoarthritis invol ving multiple joints M15.0 [facility] [address] [id number] [address] [place] [address] Mar, [facility] [address] [id number] [address] [place] [address] Mar, [facility] [address] [id number] [address] [place] [address] Feb, Major depressive disorder, r ecurrent episode, mild degree F33.0 ; Generalized anxiety disorder F41.1 and Excoriation, neurotic L98.1 [place] [id number] [place] [address] Feb, Generalized anxiety disorder F41.1 [place] [id number] [place] [address] Feb, Primary osteoarthritis invol ving multiple joints M15.0 [place] [id number] [place] [address] Jan, [place] [address] [address] Jan, Essential hypertension I10 ; Splenic artery aneurysm I72.8 ; Liver mass R16.0 ; Restrictive lung disease J98.4 ; Primary osteoarthritis involving multiple joints M15.0 ; Mixed hyperlipidemia E78.2 ; Bilateral carpal tunnel syndrome G56.03 ; Body mass index (bmi) 50-59.9 , adult Z68.43 and History of tobacco use Z87.891 [place] [id number] [place] [address] Jan, Major depressive disorder, r ecurrent episode, mild degree F33.0 and Generalized anxiety disorder F41.1 [place] [id number] [place] [address] Jan, [place] [id number] [place] [address] Jan, Generalized anxiety disorder F41.1 and Major depressive disorder, recurrent episode, mild degree F33.0 [place] [id number] [place] [address] Dec, Primary osteoarthritis invol ving multiple joints M15.0 [place] [id number] [place] [address] Dec, Generalized anxiety disorder F41.1 [place] [address] [facility] [id number] [address] [place] [address] Dec, [facility] [address] [facility] [id number] [address] [place] [address] Dec, Major depressive disorder, r ecurrent episode, mild degree F33.0 and Generalized anxiety disorder F41.1 [facility] [address] [facility] [id number] [address] [place] [address] Dec, Generalized anxiety disorder F41.1 and Major depressive disorder, recurrent episode, mild degree F33.0 [place] [address] [facility] [id number] [address] [place] [address] November, Mild major depression F32.0 and Primary osteoarthritis involving multiple joints M15.0 [place] [id number] [place] [address] November, Major depressive disorder, r ecurrent episode, mild degree F33.0 and Generalized anxiety disorder F41.1 [place] [address] [facility] [id number] [address] [place] [address] November, Primary osteoarthritis invol ving multiple joints M15.0 ; Essential hypertension I10 ; Prediabetes R73.09 ; Mixed hyperlipidemia E78.2 ; Chronic prescription benzodiazepine use Z79.899 ; Chronic prescription opiate use Z79.899 ; Tobacco use Z72.0 ; Bilateral carpal tunnel syndrome G56.03 and Body mass index (bmi) 50-59.9 , adult Z68.43 [place] [id number] [place] [address] November, Primary osteoarthritis invol ving multiple joints M15.0 and Mild major depression F32.0 [place] [address] [facility] [id number] [address] [place] [address] Oct, [place] [address] [facility] [id number] [address] [place] [address] Oct, Primary osteoarthritis invol ving multiple joints M15.0 ; Essential hypertension I10 ; Prediabetes R73.09 ; Chronic prescription benzodiazepine use Z79.899 ; Chronic prescription opiate use Z79.899 ; Tobacco use Z72.0 ; Mixed hyperlipidemia E78.2 ; Bilateral carpal tunnel syndrome G56.03 ; Body mass index (bmi) 50-59.9 , adult Z68.43 and Encounter for immunization Z23 [facility] [address] [facility] [id number] [address] [place] [id number] 17 Oct, 2016 Major depressive disorder, r ecurrent episode, mild degree F33.0 and Generalized anxiety disorder F41.1 [place] [address] [facility] [id number] [address] [place] [phone] Oct, [place] [address] [facility] [id number] [address] [place] [address] Oct, [place] [address] [facility] [id number] [address] [place] [address] Sep, Mild major depression F32.0 [place] [address] [facility] [id number] [address] [place] [address] Sep, [facility] [address] [facility] [id number] [address] [place] [address] Sep, Mild major depression F32.0 and Generalized anxiety disorder F41.1 [place] [address] [facility] [id number] [address] [place] [address] Sep, Paresthesia of both hands R2 0.2 and Cervical radiculopathy M54.12 [facility] [address] [facility] [id number] [address] [place] [address] Sep, [place] [address] [facility] [id number] [address] [place] [address] Sep, [place] [address] [facility] [id number] [address] [place] [address] Aug, Paresthesia of both hands R2 0.2 and Neck pain M54.2 [place] [address] [facility] [id number] [address] [place] [address] Aug, [facility] [address] [facility] [id number] [address] [place] [address] Jul, Neck pain M54.2 and Paresthe eddie of both hands R20.2 [facility] [address] [facility] [id number] [address] [place] [address] Jul, Proteinuria, unspecified typ e R80.9 [facility] [address] [facility] [id number] [address] [place] [address] Jul, Proteinuria, unspecified typ e R80.9 [facility] [address] [facility] [id number] [address] [place] [address] Jul, [place] [address] [facility] [id number] [address] [place] [address] Jul, Other specified transient ce rebral ischemias G45.8 [facility] [address] [facility] [id number] [address] [place] [address] Jun, Diastolic dysfunction I51.9 [facility] [address] [facility] [id number] [address] [place] [address] Jun, Diastolic dysfunction I51.9 [place] [id number] [place] [address] Jun, Major depressive disorder, s david episode, unspecified F32.9 and Anxiety disorder, unspecified F41.9 [place] [address] [facility] [id number] [address] [place] [address] Jun, [facility] [address] [facility] [id number] [address] [place] [address] Jun, [place] [address] [facility] [id number] [address] [place] [address] May, Moderate major depression F3 2.1 and Generalized anxiety disorder F41.1 [place] [address] [facility] [id number] [address] [place] [address] May, Major depressive disorder, s david episode, unspecified F32.9 and Anxiety disorder, unspecified F41.9 [facility] [address] [facility] [id number] [address] [place] [address] 15 May, 2016 [facility] [address] [facility] [id number] [address] [place] [address] 14 May, 2016 Liver enzyme elevation R74.8 [facility] [id number] [address] [place] [address] 14 May, 2016 Liver enzyme elevation R74.8 [facility] [id number] [place] [address] 10 May, 2016 Shortness of breath on exert ion R06.02 ; Essential hypertension I10 ; Mixed hyperlipidemia E78.2 and Tobacco use Z72.0 [place] [id number] [place] [address] 03 May, 2016 [facility] [id number] [place] [address] May, [facility] [id number] [place] [address] Apr, Anxiety F41.9 and Depression F32.9 [facility] [id number] [place] [address] Apr, [facility] [id number] [place] [address] Apr, [facility] [id number] [place] [address] Mar, Depression F32.9 and Anxiety F41.9 [place] [id number] [place] [address] 08 Mar, 2016 Anxiety F41.9 and Depression F32.9 [facility] [id number] [place] [address] 06 Mar, 2016 Well woman exam (no gynecolo gical exam) Z00.00 [facility] [address] [id number] [address] [place] [address] Mar, [facility] [address] [id number] [address] [place] [address] Mar, [facility] [address] [id number] [address] [place] [id number] Feb, Dental caries K02.9 [facility] [address] [id number] [address] [place] [address] Feb, [facility] [address] [id number] [address] [place] [id number] Feb, Anxiety F41.9 and Depression F32.9 [facility] [address] [id number] [address] [place] [id number] Feb, Dental examination Z01.20 [facility] [address] [id number] [address] [place] [address] Feb, [facility] [address] [id number] [address] [place] [address] Feb, [facility] [address] [id number] [address] [place] [address] Feb, Anxiety F41.9 and Depression F32.9 [facility] [address] [id number] [address] [place] [address] Jan, Severe episode of recurrent major depressive disorder, without psychotic features F33.2 and Anxiety disorder, unspecified F41.9 [facility] [address] [id number] [address] [place] [address] Jan, [facility] [address] [id number] [address] [place] [address] Dec, [facility] [address] [id number] [address] [place] [address] Dec, Anxiety F41.9 and Depression F32.9 [facility] [address] [id number] [address] [place] [address] 24 Dec, 2015 Other specified transient ce rebral ischemias G45.8 and Nocturnal hypoxia G47.34 [facility] [address] [id number] [address] [place] [id number] 18 Dec, 2015 [facility] [address] [id number] [address] [place] [id number] 17 Dec, 2015 Other specified transient ce rebral ischemias G45.8 [facility] [address] [id number] [address] [place] [address] 16 Dec, 2015 Severe episode of recurrent major depressive disorder, without psychotic features F33.2 and Anxiety disorder, unspecified F41.9 [place] [address] [id number] [address] [place] [address] Dec, [place] [address] [facility] [id number] [address] [place] [address] Dec, Anxiety F41.9 and Depression F32.9 [place] [address] [id number] [address] [place] [address] 07 Dec, 2015 Anxiety F41.9 and Depression F32.9 [place] [address] [id number] [address] [place] [address] Dec, [facility] [address] [id number] [address] [place] [address] November, Anxiety F41.9 and Depression F32.9 [facility] [address] [id number] [address] [place] [address] November, Severe episode of recurrent major depressive disorder, without psychotic features F33.2 [place] [address] [id number] [address] [place] [address] November, Mixed hyperlipidemia E78.2 [facility] [address] [id number] [address] [place] [address] November, Anxiety F41.9 and Depression F32.9 [place] [address] [address] 05 Nov, 2015 Prediabetes R73.09 ; Essenti al hypertension I10 ; Anxiety F41.9 ; Depression F32.9 ; Gastroesophageal reflux disease, esophagitis presence not specified K21.9 ; Primary osteoarthritis involving multiple joints M15.0 ; History of renal cell cancer Z85.528 ; Postnasal drip R09.82 ; Allergic rhinitis, unspecified J30.9 and Tobacco use Z72.0 [place] [address] [address] Oct, Anxiety F41.9 and Depression F32.9 [place] [address] [address] Oct, [place] [address] [address] Oct, [place] [address] [address] 14 Sep, 2015 Splenic artery aneurysm I72. 8 [place] [address] [address] 10 Sep, 2015 Depression F32.9 ; Anxiety F 41.9 ; Chronic prescription benzodiazepine use Z79.899 and Splenic artery aneurysm I72.8 [place] [address] [address] 10 Sep, 2015 Depression F32.9 and Anxiety F41.9 [place] [address] [address] Sep, [place] [address] [address] 18 Aug, 2015 Dehydration E86.0 ; Diarrhea R19.7 ; Nausea R11.0 and Generalized abdominal pain R10.84 [place] [address] [address] 03 Aug, 2015 [place] [address] [address] Jul, Depression F32.9 [facility] [address] [id number] [address] [place] [id number] Jul, [facility] [address] [facility] [id number] [address] [place] [address] Jul, Anxiety F41.9 and Depression F32.9 [facility] [address] [facility] [id number] [address] [place] [address] Jul, [facility] [address] [id number] [address] [place] [address] Jun, Epigastric pain R10.13 [facility] [address] [id number] [address] [place] [address] Jun, [facility] [address] [facility] [id number] [address] [place] [id number] Jun, [facility] [address] [facility] [id number] [address] [place] [phone] May, [facility] [address] [facility] [id number] [address] [place] [id number] May, [facility] [address] [facility] [id number] [address] [place] [address] Apr, [facility] [address] [facility] [id number] [address] [place] [id number] Mar, Anxiety state, unspecified 3 00.00 ; Depression 311 ; Prediabetes 790.29 ; Generalized osteoarthrosis, involving multiple sites 715.09 and Hypertension 401.9 [facility] [address] [id number] [address] [place] [id number] Mar, [facility] [address] [facility] [id number] [address] [place] [id number] Feb, [facility] [address] [facility] [id number] [address] [place] [id number] Jan, [facility] [address] [id number] [address] [place] [id number] 09 Jan, 2015 [facility] [address] [id number] [address] [place] [id number] 08 Jan, 2015 Generalized osteoarthrosis, involving multiple sites 715.09 [facility] [address] [id number] [address] [place] [id number] 07 Jan, 2015 Hx of renal cell cancer V10. 52 [facility] [address] [id number] [address] [place] [id number] Dec, Generalized osteoarthrosis, involving multiple sites 715.09 and Hx of renal cell cancer V10.52 [facility] [address] [id number] [address] [place] [id number] Dec, [facility] [address] [id number] [address] [place] [id number] Dec, [facility] [address] [id number] [address] [place] [phone] November, [facility] [address] [id number] [address] [place] [id number] Oct, [facility] [address] [id number] [address] [place] [phone] Oct, [facility] [address] [id number] [address] [place] [phone] Sep, [facility] [address] [id number] [address] [place] [id number] Sep, [facility] [address] [id number] [address] [place] [phone] Sep, [facility] [address] [id number] [address] [place] [phone] Sep, [facility] [address] [id number] [address] [place] [phone] Aug, [facility] [address] [id number] [address] [place] [phone] Aug, IMMUNIZATIONS No Known Immunizations SOCIAL HISTORY Never Assessed REASON FOR VISIT Controlled Medication Refill PLAN OF CARE VITAL SIGNS MEDICATIONS Medication Instructions Dosage Frequency Start Date End Date Duration S fabrice Hydrocodone-Acetaminophen 5-325 MG Orally 2 times a day as n eeded for pain take 1 tablet Apr, 28 days Active RESULTS No Results PROCEDURES [...]
--- OUTSIDE RECORDS SUMMARY | 2020-02-08 07:29 | XMS REPORT | Continuity of Care Document ---
Demographics Preferred Language Unknown Marital Status Unknown Yarsanism Affiliation Unknown Race Unknown Ethnic Group Unknown Author Organization Unknown Address Unknown Phone Unavailable Allergies Active Description Code Type Severity Reaction Onset Reported/Identified Relationship to Patient Clinical Status Yes morphine [id number] Drug Allergy Mild HIVES 08/19/2007 Yes No Known Drug Allergies [id number] Drug Allergy Unknown N/A 08/09/2015 Medications There is no data. Problems Date Dx Coded Attending Type Code Diagnosis Diagnosed By 02/26/2010 Ot 300.4 02/26/2010 Ot 305.1 02/26/2010 Ot 401.9 02/26/2010 Ot 530.81 02/26/2010 Ot 786.52 02/26/2010 Ot V10.52 09/01/2010 ALBANIA MAY MD 311 DEPRESSIVE DISORDER NOS 09/01/2010 ALBANIA MAY MD 401 .9 UNSPECIFIED ESSENTIAL HYPERTENSION 09/01/2010 ALBANIA MAY MD N 530 .81 GERD 09/01/2010 ALBANIA MAY MD 625 .6 STRESS INCONTINENCE FEMALE 09/01/2010 ALBANIA MAY MD N 311 DEPRESSIVE DISORDER NOS 09/01/2010 ALBANIA MAY MD N 401 .9 UNSPECIFIED ESSENTIAL HYPERTENSION 09/01/2010 ALBANIA MAY MD N 530 .81 GERD 09/01/2010 ALBANIA MAY MD N 625 .6 STRESS INCONTINENCE FEMALE 02/05/2011 Ot 401.9 HYPE RTENSION NOS 02/05/2011 Ot 496 CHR AI RWAY OBSTRUCT NEC 02/05/[address] PAIN NOS 02/05/2011 Ot 786.52 NEMESIO NFUL RESPIRATION 10/08/2014 ALBANIA MAY MD N 300 .00 ANXIETY STATE UNSPECIFIED 10/08/2014 ALBANIA MAY MD N 715 .09 OSTEOARTHROSIS GENERALIZED INVOLVING MULTIPLE SITES 10/08/2014 ALBANIA MAY MD N V06 .1 TDAP DX 10/08/2014 ALBANIA MAY MD N 300 .00 ANXIETY STATE UNSPECIFIED 10/08/2014 ALBANIA MAY MD N 715 .09 OSTEOARTHROSIS GENERALIZED INVOLVING MULTIPLE SITES 10/08/2014 LALO BONILLA, ALBANIA Zuniga V06 .1 TDAP DX 02/18/2015 LALO BONILLA, ALBANIA Zuniga Ot V10.52 02/18/2015 LALO BONILLA, ALBANIA Zuniga Ot V10.52 03/01/2015 ALBANIA MAY MD Ot V10.52 03/01/2015 YANCY BONILLA, JEANETTE Whitney Ot 189.0 03/01/2015 YANCY BONILLA, JEANETTE Whitney Ot 278.01 03/01/2015 YANCY BONILLA, JEANETTE Whiteny Ot 305.1 03/01/2015 YANCY BONILLA, JEANETTE Whitney Ot 401.9 03/01/2015 YANCY BONILLA, JEANETTE Whitney Ot 573.8 03/01/2015 JEANETTE HAINES MD Ot V16.51 03/01/2015 JEANETTE HAINES MD Ot V85.41 03/03/2015 YANCY BONILLA, JEANETTE Whitney Ot 573.9 03/03/2015 YANCY BONILLA, JEANETTE Whitney Ot V76.12 03/24/2015 PAM MCCARTHY DO Ot 278. 00 OBESITY, NOS 03/24/2015 PAM MCCARTHY DO Ot 562. 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 91 DIARRHEA 03/24/2015 PAM MCCARTHY DO Ot V10. 52 HX OF KIDNEY MALIGNANCY 03/24/2015 PAM MCCARTHY DO Ot V85. 41 BODY MASS INDEX 40.0-44.9, ADULT 04/27/2015 YANCY BONILLA, JEANETTE Whitney Ot 189.0 MALIG NEOPL KIDNEY 04/27/2015 YANCY BONILLA, JEANETTE Whitney Ot 278.01 MORBID OBESITY 04/27/2015 JEANETTE HAINES MD Ot 305.1 TOBACCO USE DISORDER 04/27/2015 YANCY BONILLA, JEANETTE Whitney Ot 401.9 HYPERTENSION NOS 04/27/2015 YANCY BONILLA, JEANETTE Whitney Ot 573.8 LIVER DISORDERS NEC 04/27/2015 JEANETTE HAINES MD Ot V16.51 FAM HX-MALIG NEOP OF KIDNEY 04/27/2015 JEANETTE HAINES MD Ot V85.41 BODY MASS INDEX 40.0-44.9, ADULT 06/15/2015 ALBANIA MAY MD Ot V10.52 06/15/2015 JEANETTE HAINES MD Ot 573.9 06/15/2015 YANCY BONILLA, JEANETTE Devonte Ot V76.12 06/15/2015 PAM MCCARTHY DO Ot 787. 91 06/15/2015 PAM MCCARTHY DO Ot V72. 84 06/15/2015 YANCY BONILLA, JEANETTE Devonte Ot C64.9 06/15/2015 YANCY BONILLA, JEANETTE Devonte Ot K76.89 06/15/2015 YANCY BONILLA, JEANETTE Devonte Ot 189.0 06/15/2015 YANCY BONILLA, JEANETTE Devonte Ot 278.01 06/15/2015 YANCY BONILLA, JEANETTE K Ot 305.1 06/15/2015 YANCY BONILLA, JEANETTE Devonte Ot 401.9 06/15/2015 YANCY BONILLA, JEANETTE Devonte Ot 573.8 06/15/2015 YANCY BONILLA, JEANETTE Devonte Ot V16.51 06/15/2015 YANCY BONILLA, JEANETTE Devonte Ot V85.41 06/15/2015 YANCY BONILLA, JEANETTE Devonte Ot 573.9 06/15/2015 YANCY BONILLA, JEANETTE Devonte Ot V76.12 06/15/2015 YANCY BONILLA, JEANETTE Devonte Ot 189.0 06/15/2015 YANCY BONILLA, JEANETTE Devonte Ot 278.01 06/15/2015 YANCY BONILLA, JEANETTE K Ot 305.1 06/15/2015 YANCY BONILLA, JEANETTE Devonte Ot 401.9 06/15/2015 YANCY BONILLA, JEANETTE Devonte Ot 573.8 06/15/2015 YANCY BONILLA, JEANETTE Devonte Ot V16.51 06/15/2015 YANCY BONILLA, JEANETTE Devonte Ot V85.41 06/15/2015 YANCY BONILLA, JEANETTE Devonte Ot C64.9 06/15/2015 YANCY BONILLA, JEANETTE Whitney [...] Ot V76.12 08/04/2015 PAM MCCARTHY DO Ot 787. 91 08/04/2015 PAM MCCARTHY DO Ot V72. 84 08/04/2015 YANCY BONILLA, JEANETTE Devonte Ot C64.9 08/04/2015 YANCY BONILLA, JEANETTE K Ot K76.89 08/04/2015 YANCY BONILLA, JEANETTE K Ot 189.0 08/04/2015 YANCY BONILLA, JEANETTE K Ot 278.01 08/04/2015 YANCY BONILLA, JEANETTE K Ot 305.1 08/04/2015 YANCY BONILLA, JEANETTE K Ot 401.9 08/04/2015 YANCY BONILLA, JEANETTE K Ot 573.8 08/04/2015 YANCY BONILLA, JEANETTE K Ot V16.51 08/04/2015 YANCY BONILLA, JEANETTE K Ot V85.41 08/05/2015 YANCY BONILLA, JEANETTE K Ot 189.0 08/05/2015 YANCY BONILLA, JEANETTE K Ot 278.01 08/05/2015 YANCY BONILLA, JEANETTE K Ot 305.1 08/05/2015 YANCY BONILLA, JEANETTE K Ot 401.9 08/05/2015 YANCY BONILLA, JEANETTE Devonte Ot 573.8 08/05/2015 YANCY BONILLA, JEANETTE K Ot V16.51 08/05/2015 YANCY BONILLA, JEANETTE K Ot V85.41 08/05/2015 YANCY BONILLA, JEANETTE K Ot 189.0 08/05/2015 YANCY BONILLA, JEANETTE K Ot 278.01 08/05/2015 YANCY BONILLA, JEANETTE Devonte Ot 305.1 08/05/2015 YANCY BONILLA, JEANETTE Devonte Ot 401.9 08/05/2015 YANCY BONILLA, JEANETTE Devonte Ot 573.8 08/05/2015 YANYC BONILLA, JEANETTE Whitney Ot V16.51 08/05/2015 YANCY BONILLA, JEANETTE Whitney Ot V85.41 08/09/2015 PAM MCCARTHY DO Ot K29. 70 GASTRITIS, UNSPECIFIED, WITHOUT BLEEDING 08/10/2015 YANCY BONILLA, JEANETTE Devonte Ot 189.0 08/10/2015 YANCY BONILLA, JEANETTE Devonte Ot 278.01 08/10/2015 YANCY BONILLA, JEANETTE Whitney Ot 305.1 08/10/2015 YANCY BONILLA, JEANETTE Devonte Ot 401.9 08/10/2015 YANCY BONILLA, JEANETTE Devonte Ot 573.8 08/10/2015 YANCY BONILLA, JEANETTE Whitney Ot C64.1 MALIGNANT NEOPLASM OF RIGHT KIDNEY, EXCE 08/10/2015 YANCY BONILLA, JEANETTE Whitney Ot E66.01 MORBID (SEVERE) OBESITY DUE TO EXCESS CA 08/10/2015 YANCY BONILLA, JEANETTE Devonte Ot I10 ESSENTIAL (PRIMARY) HYPERTENSION 08/10/2015 JEANETTE HAINES MD Ot R16.0 HEPATOMEGALY, NOT ELSEWHERE CLASSIFIED 08/10/2015 JEANETTE HAINES MD Ot V16.51 08/10/2015 JEANETTE HAINES MD Ot V85.41 08/10/2015 JEANETTE HAINES MD Ot Z68.41 BODY MASS INDEX (BMI) 40.0-44.9, ADULT 08/10/2015 JEANETTE HAINES MD Ot Z79.899 OTHER RETIREMENT (CURRENT) DRUG THERAPY 11/04/2015 JEANETTE HAINES MD Ot 189.0 11/04/2015 JEANETTE HAINES MD Ot 278.01 11/04/2015 YANCY BONILLA, JEANETTE Whitney Ot 305.1 11/04/2015 JEANETTE HAINES MD Ot [...] 12/13/2015 JEANETTE HAINES MD Ot 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 01/14/2016 ALBANIA MAY MD Ot E78 .1 PURE HYPERGLYCERIDEMIA 01/14/2016 ALBANIA MAY MD Ot F17.210 NICOTINE DEPENDENCE, CIGARETTES, UNCOMPL 01/14/2016 ALBANIA MAY MD Ot G45 .9 TRANSIENT CEREBRAL ISCHEMIC ATTACK, UNSP 01/19/2016 ALBANIA MAY MD Ot V10.52 HX OF KIDNEY MALIGNANCY 01/19/2016 JEANETTE HAINES MD Ot 573.9 LIVER DISORDER NOS 01/19/2016 JEANETTE HAINES MD Ot V76.12 OTH SCREEN MAMMO-MALIGN NEOPLASM OF NIMESH 01/19/2016 PAM MCCARTHY DO Ot 787. 91 DIARRHEA 01/19/2016 PAM MCCARTHY DO Ot V72. 84 EXAM PRE-OPERATIVE NOS 01/19/2016 JEANETTE HAINES MD, Ot C64.9 MALIGNANT NEOPLASM OF UNSP KIDNEY, EXCEP 01/19/2016 JEANETTE HAINES MD, Ot K76.89 OTHER SPECIFIED DISEASES OF LIVER 01/19/2016 PAM MCCARTHY DO Ot R13. 10 DYSPHAGIA, UNSPECIFIED 01/19/2016 PAM MCCARTHY DO Ot Z01.818 ENCOUNTER FOR OTHER PREPROCEDURAL EXAMIN 01/19/2016 JEANETTE HAINES MD, Ot C64.1 MALIGNANT NEOPLASM OF RIGHT KIDNEY, EXCE 01/19/2016 JEANETTE HAINES MD, Ot E66.01 MORBID (SEVERE) OBESITY DUE TO EXCESS CA 01/19/2016 JEANETTE HAINES MD, Ot I10 ESSENTIAL (PRIMARY) HYPERTENSION 01/19/2016 JEANETTE HAINES MD, Ot R16.0 HEPATOMEGALY, NOT ELSEWHERE CLASSIFIED 01/19/2016 JEANETTE HAINES MD, Ot Z68.41 BODY MASS INDEX (BMI) 40.0-44.9, ADULT 01/19/2016 JEANETTE HAINES MD, Ot Z79.899 OTHER RETIREMENT (CURRENT) DRUG THERAPY 01/20/2016 JEANETTE HAINES MD, Ot C64.1 MALIGNANT NEOPLASM OF RIGHT KIDNEY, EXCE 01/20/2016 JEANETTE HAINES MD, Ot 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 01/20/2016 JEANETTE HAINES MD, Ot K76.0 FATTY (CHANGE OF) LIVER, NOT ELSEWHERE C 01/20/2016 JEANETTE HAINES MD Ot R59.0 LOCALIZED ENLARGED LYMPH NODES 02/01/2016 JEANETTE HAINES MD, Ot C64.1 MALIGNANT NEOPLASM OF RIGHT KIDNEY, EXCE 02/01/2016 JEANETTE HAINES MD, Ot E66.01 MORBID (SEVERE) OBESITY DUE TO EXCESS CA 02/01/2016 JEANETTE HAINES MD Ot I10 ESSENTIAL (PRIMARY) HYPERTENSION 02/01/2016 JEANETTE HAINES MD, Ot R16.0 HEPATOMEGALY, NOT ELSEWHERE CLASSIFIED 02/01/2016 JEANETTE HAINES MD, Ot Z68.41 BODY MASS INDEX (BMI) 40.0-44.9, ADULT 02/01/2016 JEANETTE HAINES MD, Ot 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 02/08/2016 JEANETTE HAINES MD, Ot C64.1 MALIGNANT NEOPLASM OF RIGHT KIDNEY, EXCE 02/08/2016 JEANETTE HAINES MD Ot I72.8 ANEURYSM OF [...] OF NIMESH 05/07/2016 PAM MCCARTHY DO Ot 787. 91 DIARRHEA 05/07/2016 PAM MCCARTHY DO Ot V72. 84 EXAM PRE-OPERATIVE NOS 05/07/2016 JEANETTE HAINES MD Ot C64.9 MALIGNANT NEOPLASM OF UNSP KIDNEY, EXCEP 05/07/2016 JEANETTE HAINES MD Ot K76.89 OTHER SPECIFIED DISEASES OF LIVER 05/07/2016 PAM MCCARTHY DO Ot R13. 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 05/07/2016 JEANETTE HAINES MD Ot K76.0 FATTY (CHANGE OF) LIVER, NOT ELSEWHERE C 05/07/2016 JEANETTE HAINES MD Ot R59.0 LOCALIZED ENLARGED LYMPH NODES 05/07/2016 JEANETTE HAINES MD Ot C64.1 MALIGNANT NEOPLASM OF RIGHT KIDNEY, EXCE 05/07/2016 JEANETTE HAINES MD Ot E66.01 MORBID (SEVERE) OBESITY DUE TO EXCESS CA 05/07/2016 JEANETTE HAINES MD Ot I10 ESSENTIAL (PRIMARY) HYPERTENSION 05/07/2016 JEANETTE HAINES MD, Ot R16.0 HEPATOMEGALY, NOT ELSEWHERE CLASSIFIED 05/07/2016 JEANETTE HAINES MD, Ot Z68.41 BODY MASS INDEX (BMI) 40.0-44.9, ADULT 05/07/2016 JEANETTE HAINES MD Ot Z79.899 OTHER RETIREMENT (CURRENT) DRUG THERAPY 05/07/2016 ALBANIA MAY MD Ot Z12.31 ENCNTR SCREEN MAMMOGRAM FOR MALIGNANT NE 05/08/2016 ALBANIA MAY MD Ot G47.34 IDIO SLEEP RELATED NONOBSTRUCTIVE ALVEOL 06/18/2016 ALBANIA MAY MD Ot R74 .8 ABNORMAL LEVELS OF OTHER SERUM ENZYMES 06/18/2016 ALBANIA MAY MD Ot R74 .8 ABNORMAL LEVELS OF OTHER SERUM ENZYMES 06/20/2016 ALBANIA MAY MD Ot R06.02 SHORTNESS OF BREATH 06/26/2016 ALBANIA MAY MD Ot R74 .8 ABNORMAL LEVELS OF OTHER SERUM ENZYMES 07/26/2016 JEANETTE HAINES MD, Ot C64.1 MALIGNANT NEOPLASM OF RIGHT KIDNEY, EXCE 07/26/2016 JEANETTE HAINES MD, Ot E66.01 MORBID (SEVERE) OBESITY DUE TO EXCESS CA 07/26/2016 JEANETTE HAINES MD, Ot I10 ESSENTIAL (PRIMARY) HYPERTENSION 07/26/2016 JEANETTE HAINES MD Ot R16.0 HEPATOMEGALY, NOT ELSEWHERE CLASSIFIED 07/26/2016 JEANETTE HAINES MD, Ot Z68.41 BODY MASS INDEX (BMI) 40.0-44.9, ADULT 07/26/2016 JEANETTE HAINES MD, Ot Z79.899 OTHER RETIREMENT (CURRENT) DRUG THERAPY 08/01/2016 ALBANIA MAY MD Ot R06.02 SHORTNESS OF BREATH 08/09/2016 JEANETTE HAINES MD, Ot C64.1 MALIGNANT NEOPLASM OF RIGHT KIDNEY, EXCE 08/10/2016 JEANETTE HAINES MD, Ot C64.1 MALIGNANT NEOPLASM OF RIGHT KIDNEY, EXCE 08/10/2016 JEANETTE HAINES MD Ot E66.01 MORBID (SEVERE) OBESITY DUE TO EXCESS CA 08/10/2016 JEANETTE HAINES MD, Ot I10 ESSENTIAL (PRIMARY) HYPERTENSION 08/10/2016 JEANETTE HAINES MD Ot R16.0 HEPATOMEGALY, NOT ELSEWHERE CLASSIFIED 08/10/2016 JEANETTE HAINES MD Ot Z68.41 BODY MASS INDEX (BMI) 40.0-44.9, ADULT 08/10/2016 JEANETTE HAINES MD Ot 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 10/23/2016 JEANETTE HAINES MD Ot C64.1 MALIGNANT NEOPLASM OF RIGHT KIDNEY, EXCE 10/23/2016 JEANETTE HAINES MD Ot E66.01 MORBID (SEVERE) OBESITY DUE TO EXCESS CA 10/23/2016 JEANETTE HAINES MD Ot I10 ESSENTIAL (PRIMARY) HYPERTENSION 10/23/2016 JEANETTE HAINES MD Ot R16.0 HEPATOMEGALY, NOT ELSEWHERE CLASSIFIED 10/23/2016 JEANETTE HAINES MD Ot Z68.41 BODY MASS INDEX (BMI) 40.0-44.9, ADULT 10/23/2016 JEANETTE HAINES MD Ot 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 10/24/2016 JEANETTE HAINES MD Ot C64.1 MALIGNANT NEOPLASM OF RIGHT KIDNEY, EXCE 10/24/2016 JEANETTE HAINES MD Ot E66.01 MORBID (SEVERE) OBESITY DUE TO EXCESS CA 10/24/2016 JEANETTE HAINES MD Ot I10 ESSENTIAL (PRIMARY) HYPERTENSION 10/24/2016 JEANETTE HAINES MD Ot R16.0 HEPATOMEGALY, NOT ELSEWHERE CLASSIFIED 10/24/2016 JEANETTE HAINES MD Ot Z68.41 BODY MASS INDEX (BMI) 40.0-44.9, ADULT 10/24/2016 JEANETTE HAINES MD Ot Z79.899 OTHER RETIREMENT (CURRENT) DRUG THERAPY 12/19/2016 KATERINA SIEGEL MD Ot G56.02 CARPAL TUNNEL SYNDROME, LEFT UPPER LIMB 12/19/2016 KATERINA SIEGEL MD Ot Z01.818 ENCOUNTER FOR OTHER PREPROCEDURAL EXAMIN 12/19/2016 KATERINA SIEGEL MD Ot Z11.2 ENCOUNTER FOR SCREENING FOR OTHER BACTER 12/20/2016 KATERINA SIEGEL MD Ot G56.02 CARPAL [...] DEPRESSIVE DISORDER, SINGLE EPISOD 12/26/2016 KATERINA SIEGEL MD Ot F41.9 ANXIETY DISORDER, UNSPECIFIED 12/26/2016 KATERINA SIEGEL MD Ot G47.33 OBSTRUCTIVE SLEEP APNEA (ADULT) (PEDIATR 12/26/2016 KATERINA SIEGEL MD Ot G56.02 CARPAL TUNNEL SYNDROME, LEFT UPPER LIMB 12/26/2016 KATERINA SIEGEL MD Ot I1 0 ESSENTIAL (PRIMARY) HYPERTENSION 12/26/2016 KATERINA SIEGEL MD Ot K21.9 GASTRO-ESOPHAGEAL REFLUX DISEASE WITHOUT 12/26/2016 KATERINA SIEGEL MD Ot M19.90 UNSPECIFIED OSTEOARTHRITIS, UNSPECIFIED 12/26/2016 KATERINA SIEGEL MD Ot R73.09 OTHER ABNORMAL GLUCOSE 12/26/2016 KATERINA SIEGEL MD Ot Z68.43 BODY MASS INDEX (BMI) 50-59.9 , ADULT 12/26/2016 KATERINA SIEGEL MD Ot Z79.899 OTHER RETIREMENT (CURRENT) DRUG THERAPY 12/26/2016 KATERINA SIEGEL MD Ot Z85.528 PERSONAL HISTORY OF OTHER MALIGNANT NEOP 12/26/2016 KATERINA SIEGEL MD Ot Z90.5 ACQUIRED ABSENCE OF KIDNEY 12/27/2016 KATERINA SIEGEL MD Ot E66.01 MORBID (SEVERE) OBESITY DUE TO EXCESS CA 12/27/2016 KATERINA SIEGEL MD Ot E78.5 HYPERLIPIDEMIA, UNSPECIFIED 12/27/2016 KATERINA SIEGEL MD Ot F17.210 NICOTINE DEPENDENCE, CIGARETTES, UNCOMPL 12/27/2016 KATERINA SIEGEL MD Ot F32.9 MAJOR DEPRESSIVE DISORDER, SINGLE EPISOD 12/27/2016 KATERINA SIEGEL MD Ot F41.9 ANXIETY DISORDER, UNSPECIFIED 12/27/2016 KATERINA SIEGEL MD Ot G47.33 OBSTRUCTIVE SLEEP APNEA (ADULT) (PEDIATR 12/27/2016 KATERINA SIEGEL MD, Ot G56.02 CARPAL TUNNEL SYNDROME, LEFT UPPER LIMB 12/27/2016 KATERINA SIEGEL MD, Ot I1 0 ESSENTIAL (PRIMARY) HYPERTENSION 12/27/2016 KATERINA SIEGEL MD, Ot K21.9 GASTRO-ESOPHAGEAL REFLUX DISEASE WITHOUT 12/27/2016 KATERINA SIEGEL MD, Ot M19.90 UNSPECIFIED OSTEOARTHRITIS, UNSPECIFIED 12/27/2016 KATERINA SIEGEL MD, Ot R73.09 OTHER ABNORMAL GLUCOSE 12/27/2016 KATERINA SIEGEL MD, Ot Z68.43 BODY MASS INDEX (BMI) 50-59.9 , ADULT 12/27/2016 KATERINA SIEGEL MD, Ot 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 12/27/2016 KATERINA SIEGEL MD, [...] MD, Ot G47.33 OBSTRUCTIVE SLEEP APNEA (ADULT) (PEDIATR 12/29/2016 KATERINA SIEGEL MD, Ot G56.02 CARPAL TUNNEL SYNDROME, LEFT UPPER LIMB 12/29/2016 KATERINA SIEGEL MD, Ot I1 0 ESSENTIAL (PRIMARY) HYPERTENSION 12/29/2016 KATERINA SIEGEL MD, Ot K21.9 GASTRO-ESOPHAGEAL REFLUX DISEASE WITHOUT 12/29/2016 KATERINA SIEGEL MD, Ot M19.90 UNSPECIFIED OSTEOARTHRITIS, UNSPECIFIED 12/29/2016 KATERINA SIEGEL MD, Ot R73.09 OTHER ABNORMAL GLUCOSE 12/29/2016 KATERINA SIEGEL MD, Ot Z68.43 BODY MASS INDEX (BMI) 50-59.9 , ADULT 12/29/2016 KATERINA SIEGEL MD, Ot Z79.899 OTHER RETIREMENT (CURRENT) DRUG THERAPY 12/29/2016 KATERINA SIEGEL MD, Ot Z85.528 PERSONAL HISTORY OF OTHER MALIGNANT NEOP 12/29/2016 KATERINA SIEGEL MD, Ot Z90.5 ACQUIRED ABSENCE OF KIDNEY 01/09/2017 JEANETTE HAINES MD, Ot C64.1 MALIGNANT NEOPLASM OF RIGHT KIDNEY, EXCE 01/09/2017 JEANETTE HAINES MD, Ot E66.01 MORBID (SEVERE) OBESITY DUE TO EXCESS CA 01/09/2017 JEANETTE HAINES MD, Ot I10 ESSENTIAL (PRIMARY) HYPERTENSION 01/09/2017 JEANETTE HAINES MD, Ot R16.0 HEPATOMEGALY, NOT ELSEWHERE CLASSIFIED 01/09/2017 JEANETTE HAINES MD, Ot Z68.41 BODY MASS INDEX (BMI) 40.0-44.9, ADULT 01/09/2017 JEANETTE HAINES MD, Ot 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 01/16/2017 JEANETTE HAINES MD, Ot C64.1 MALIGNANT NEOPLASM OF RIGHT KIDNEY, EXCE 01/16/2017 JEANETTE HAINES MD Ot 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 01/16/2017 JEANETTE HAINES MD Ot K76.0 FATTY (CHANGE OF) LIVER, NOT ELSEWHERE C 01/16/2017 JEANETTE HAINES MD, Ot Z90.5 ACQUIRED ABSENCE OF KIDNEY 01/16/2017 JEANETTE HAINES MD, Ot C64.1 MALIGNANT NEOPLASM OF RIGHT KIDNEY, EXCE 01/16/2017 JEANETTE HAINES MD, Ot 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 01/16/2017 JEANETTE HAINES MD, Ot K76.0 FATTY (CHANGE OF) LIVER, NOT ELSEWHERE C 01/16/2017 JEANETTE HAINES MD Ot Z90.5 ACQUIRED ABSENCE OF KIDNEY 01/17/2017 KATERINA SIEGEL MD, Ot G56.01 CARPAL TUNNEL SYNDROME, RIGHT UPPER LIMB 01/17/2017 KATERINA SIEGEL MD, Ot Z01.818 ENCOUNTER FOR OTHER PREPROCEDURAL EXAMIN 01/23/2017 KATERINA SIEGEL MD, Ot E66.01 MORBID (SEVERE) OBESITY DUE TO EXCESS CA 01/23/2017 KATERINA SIEGEL MD, Ot E78.5 HYPERLIPIDEMIA, UNSPECIFIED 01/23/2017 KATERINA SEIGEL MD, Ot F17.210 NICOTINE DEPENDENCE, CIGARETTES, UNCOMPL 01/23/2017 KATERINA SIEGEL MD, Ot F32.9 MAJOR DEPRESSIVE DISORDER, SINGLE EPISOD 01/23/2017 KATERINA SIEGEL MD, Ot F41.9 ANXIETY DISORDER, UNSPECIFIED 01/23/2017 KATERINA SIEGEL MD, Ot G47.33 OBSTRUCTIVE SLEEP APNEA (ADULT) (PEDIATR 01/23/2017 KATERINA SIEGEL MD, Ot G56.01 CARPAL TUNNEL SYNDROME, RIGHT UPPER LIMB 01/23/2017 KATERINA SIEGEL MD, Ot I1 0 ESSENTIAL (PRIMARY) HYPERTENSION 01/23/2017 KATERINA SIEGEL MD, Ot K21.9 GASTRO-ESOPHAGEAL REFLUX DISEASE WITHOUT 01/23/2017 KATERINA SIEGEL MD, Ot M19.90 UNSPECIFIED OSTEOARTHRITIS, UNSPECIFIED 01/23/2017 KATERINA SIEGEL MD, Ot R73.03 PREDIABETES 01/23/2017 KATERINA SIEGEL MD, Ot Z68.43 BODY MASS INDEX (BMI) 50-59.9 , ADULT 01/23/2017 KATERINA SIEGEL MD, Ot Z85.528 PERSONAL HISTORY OF OTHER MALIGNANT NEOP 01/25/2017 JEANETTE HAINES MD, Ot C64.1 MALIGNANT NEOPLASM OF RIGHT KIDNEY, EXCE 01/25/2017 JEANETTE HAINES MD, Ot 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 01/25/2017 JEANETTE HAINES MD, Ot K76.0 FATTY (CHANGE OF) LIVER, NOT ELSEWHERE C 01/25/2017 JEANETTE HAINES MD, Ot Z90.5 ACQUIRED ABSENCE OF KIDNEY 02/07/2017 JEANETTE HAINES MD, Ot C64.1 MALIGNANT NEOPLASM OF RIGHT KIDNEY, EXCE 02/07/2017 JEANETTE HAINES MD, Ot E66.01 MORBID (SEVERE) OBESITY DUE TO EXCESS CA 02/07/2017 JEANETTE HAINES MD Ot I10 ESSENTIAL (PRIMARY) HYPERTENSION 02/07/2017 JEANETTE HAINES MD, Ot R16.0 HEPATOMEGALY, NOT ELSEWHERE CLASSIFIED 02/07/2017 JEANETTE HAINES MD, Ot Z68.41 BODY MASS INDEX (BMI) 40.0-44.9, ADULT 02/07/2017 JEANETTE HAINES MD, Ot Z79.899 OTHER RETIREMENT (CURRENT) DRUG THERAPY 04/07/2017 JEANETTE HAINES MD, Ot C64.1 MALIGNANT NEOPLASM OF RIGHT KIDNEY, EXCE 04/07/2017 JEANETTE HAINES MD, Ot E66.01 MORBID (SEVERE) OBESITY DUE TO EXCESS CA 04/07/2017 JEANETTE HAINES MD Ot I10 ESSENTIAL (PRIMARY) HYPERTENSION 04/07/2017 JEANETTE HAINES MD Ot R16.0 HEPATOMEGALY, NOT ELSEWHERE CLASSIFIED 04/07/2017 JEANETTE HAINES MD Ot Z68.41 BODY MASS INDEX (BMI) 40.0-44.9, ADULT 04/07/2017 JEANETTE HAINES MD Ot Z79.899 OTHER RETIREMENT (CURRENT) DRUG THERAPY 06/13/2017 VALENTINA BURNETT MD Ot C64.1 MALIGNANT NEOPLASM OF RIGHT KIDNEY, EXCE 06/13/2017 VALENTINA BURNETT MD Ot E66.01 MORBID (SEVERE) OBESITY DUE TO EXCESS CA 06/13/2017 VALENTINA BURNETT MD, Ot I10 ESSENTIAL (PRIMARY) HYPERTENSION 06/13/2017 VALENTINA BURNETT MD Ot Z68.41 BODY MASS INDEX (BMI) 40.0-44.9, ADULT 06/13/2017 VALENTINA BURNETT MD Ot Z79.899 OTHER RETIREMENT (CURRENT) DRUG THERAPY 07/09/2017 VALENTINA BURNETT MD Ot C64.1 MALIGNANT NEOPLASM OF RIGHT KIDNEY, EXCE 07/09/2017 VALENTINA BURNETT MD Ot E66.01 MORBID (SEVERE) OBESITY DUE TO EXCESS CA 07/09/2017 VALENTINA BURNETT MD Ot I10 ESSENTIAL (PRIMARY) HYPERTENSION 07/09/2017 VALENTINA BURNETT MD Ot Z68.41 BODY MASS INDEX (BMI) 40.0-44.9, ADULT 07/09/2017 VALENTINA BURNETT MD Ot Z79.899 OTHER RETIREMENT (CURRENT) DRUG THERAPY 08/27/2017 ALBANIA MAY MD Ot J98 .4 OTHER DISORDERS OF LUNG 09/06/2017 ALBANIA MAY MD Ot J98 .4 OTHER DISORDERS OF LUNG 09/10/2017 VALENTINA BURNETT MD Ot C64.1 MALIGNANT NEOPLASM OF RIGHT KIDNEY, EXCE 09/10/2017 VALENTINA BURNETT MD Ot E66.01 MORBID (SEVERE) OBESITY DUE TO EXCESS CA 09/10/2017 VALENTINA BURNETT MD Ot I10 ESSENTIAL (PRIMARY) HYPERTENSION 09/10/2017 VALENTINA BURNETT MD Ot Z68.41 BODY MASS INDEX (BMI) 40.0-44.9, ADULT 09/10/2017 VALENTINA BURNETT MD Ot 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 10/31/2017 VALENTINA BURNETT MD Ot C64.1 MALIGNANT NEOPLASM OF RIGHT KIDNEY, EXCE 10/31/2017 VALENTINA BURNETT MD Ot R91.8 OTHER NONSPECIFIC ABNORMAL FINDING OF MARIYA 10/31/2017 VALENTINA BURNETT MD, Ot C64.1 MALIGNANT NEOPLASM OF RIGHT KIDNEY, EXCE 10/31/2017 VALENTINA BURNETT MD Ot R91.8 OTHER NONSPECIFIC ABNORMAL FINDING OF MARIYA 11/05/2017 VALENTINA BURNETT MD Ot C64.1 MALIGNANT NEOPLASM OF RIGHT KIDNEY, EXCE 11/05/2017 VALENTINA BURNETT MD Ot R91.8 OTHER NONSPECIFIC ABNORMAL FINDING OF MARIYA 11/06/2017 VALENTINA BURNETT MD, Ot C64.1 MALIGNANT NEOPLASM OF RIGHT KIDNEY, EXCE 11/06/2017 VALENTINA BURNETT MD Ot E66.01 MORBID (SEVERE) OBESITY DUE TO EXCESS CA 11/06/2017 VALENTINA BURNETT MD Ot I10 ESSENTIAL (PRIMARY) HYPERTENSION 11/06/2017 VALENTINA BURNETT MD Ot Z68.41 BODY MASS INDEX (BMI) 40.0-44.9, ADULT 11/06/2017 VALENTINA BURNETT MD Ot 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 91 DIARRHEA 11/06/2017 PAM MCCARTHY DO Ot V72. 84 EXAM PRE-OPERATIVE NOS 11/06/2017 JEANETTE HAINES MD Ot C64.9 MALIGNANT NEOPLASM OF UNSP KIDNEY, EXCEP 11/06/2017 JEANETTE HAINES MD Ot K76.89 OTHER SPECIFIED DISEASES OF LIVER 11/06/2017 PAM MCCARTHY DO Ot R13. 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 11/06/2017 JEANETTE HAINES MD Ot K76.0 FATTY (CHANGE OF) LIVER, NOT ELSEWHERE C 11/06/2017 JEANETTE HAINES MD Ot R59.0 LOCALIZED ENLARGED LYMPH NODES 11/06/2017 JEANETTE HAINES MD, Ot C64.1 MALIGNANT NEOPLASM OF RIGHT KIDNEY, EXCE 11/06/2017 ALBANIA MAY MD, Ot Z12.31 ENCNTR SCREEN MAMMOGRAM FOR MALIGNANT NE 11/06/2017 ALBANIA MAY MD Ot R06.02 SHORTNESS OF BREATH 11/06/2017 ALBANIA AMY MD Ot R74 .8 ABNORMAL LEVELS OF OTHER SERUM ENZYMES 11/06/2017 JEANETTE HAINES MD, Ot C64.1 MALIGNANT NEOPLASM OF RIGHT KIDNEY, EXCE 11/06/2017 JEANETTE HAINES MD Ot 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 11/06/2017 JEANETTE HAINES MD Ot K76.0 FATTY (CHANGE OF) LIVER, NOT ELSEWHERE C 11/06/2017 JEANETTE HAINES MD Ot Z90.5 ACQUIRED ABSENCE OF KIDNEY 11/06/2017 VALENTINA BURNETT MD Ot C64.1 MALIGNANT NEOPLASM OF RIGHT KIDNEY, EXCE 11/06/2017 VALENTINA BURNETT MD Ot R91.8 OTHER NONSPECIFIC ABNORMAL FINDING OF MARIYA 11/06/2017 ALBANIA MAY MD Ot J98 .4 OTHER DISORDERS OF LUNG 11/06/2017 VALENTINA BURNETT MD Ot C64.1 MALIGNANT NEOPLASM OF RIGHT KIDNEY, EXCE 11/06/2017 VALENTINA BURNETT MD Ot E66.01 MORBID (SEVERE) OBESITY DUE TO EXCESS CA 11/06/2017 VALENTINA BURNETT MD Ot I10 ESSENTIAL (PRIMARY) HYPERTENSION 11/06/2017 VALENTINA BURNETT MD Ot Z68.41 BODY MASS INDEX (BMI) 40.0-44.9, ADULT 11/06/2017 VALENTINA BURNETT MD Ot 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 11/19/2017 VALENTINA BURNETT MD Ot C64.1 MALIGNANT NEOPLASM OF RIGHT KIDNEY, EXCE 11/19/2017 VALENTINA BURNETT MD Ot R91.8 OTHER NONSPECIFIC ABNORMAL FINDING OF MARIYA 12/17/2017 VALENTINA BURNETT MD Ot C64.1 MALIGNANT NEOPLASM OF RIGHT KIDNEY, EXCE 12/17/2017 VALENTINA BURNETT MD Ot E66.01 MORBID (SEVERE) OBESITY DUE TO EXCESS CA 12/17/2017 VALENTINA BURNETT MD Ot I10 ESSENTIAL (PRIMARY) HYPERTENSION 12/17/2017 VALENTINA BURNETT MD Ot Z68.41 BODY MASS INDEX (BMI) 40.0-44.9, ADULT 12/17/2017 VALENTINA BURNETT MD Ot 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 01/27/2018 VALENTINA BURNETT MD Ot C64.1 MALIGNANT NEOPLASM OF RIGHT KIDNEY, EXCE 01/27/2018 VALENTINA BURNETT MD Ot E66.01 MORBID (SEVERE) OBESITY DUE TO EXCESS CA 01/27/2018 VALENTINA BURNETT MD Ot I10 ESSENTIAL (PRIMARY) HYPERTENSION 01/27/2018 VALENTINA BURNETT MD Ot Z68.41 BODY MASS INDEX (BMI) 40.0-44.9, ADULT 01/27/2018 VALENTINA BURNETT MD Ot 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 01/28/2018 VALENTINA BURNETT MD Ot C64.1 MALIGNANT NEOPLASM OF RIGHT KIDNEY, EXCE 01/28/2018 VALENTINA BURNETT MD Ot E66.01 MORBID (SEVERE) OBESITY DUE TO EXCESS CA 01/28/2018 VALENTINA BURNETT MD Ot I10 ESSENTIAL (PRIMARY) HYPERTENSION 01/28/2018 VALENTINA BURNETT MD Ot Z68.41 BODY MASS INDEX (BMI) 40.0-44.9, ADULT 01/28/2018 VALENTINA BURNETT MD Ot Z79.899 OTHER RETIREMENT (CURRENT) DRUG THERAPY 04/27/2018 ALBANIA MAY MD N Ot J43 .9 EMPHYSEMA, UNSPECIFIED 04/30/2018 ALBANIA MAY MD N Ot J43 .9 EMPHYSEMA, UNSPECIFIED 05/01/2018 ALBANIA MAY MD N Ot J43 .9 EMPHYSEMA, UNSPECIFIED 05/06/2018 ALBANIA MAY MD N Ot J43 .9 EMPHYSEMA, UNSPECIFIED 05/07/2018 ALBANIA MAY MD N Ot J43 .9 EMPHYSEMA, UNSPECIFIED 05/08/2018 ALBANIA MAY MD N Ot J43 .9 EMPHYSEMA, UNSPECIFIED 05/13/2018 ALBANIA MAY MD N Ot J43 .9 EMPHYSEMA, UNSPECIFIED 05/15/2018 ALBANIA MAY MD N Ot J43 .9 EMPHYSEMA, UNSPECIFIED 05/20/2018 ALBANIA MAY MD N Ot J43 .9 EMPHYSEMA, UNSPECIFIED 05/27/2018 LALO MD, ALBANIA N Ot J43 .9 EMPHYSEMA, UNSPECIFIED 06/10/2018 LALO BONILLA, ALBANIA N Ot J43 .9 EMPHYSEMA, UNSPECIFIED 06/10/2018 LALO BONILLA, ALBANIA N Ot J43 .9 EMPHYSEMA, UNSPECIFIED 06/10/2018 LALO BNOILLA, ALBANIA N Ot J43 .9 EMPHYSEMA, UNSPECIFIED 06/17/2018 LALO BONILLA, ALB[place] N Ot J43 .9 EMPHYSEMA, UNSPECIFIED 07/08/2018 LALO BONILLA, ALBAN[place] N Ot J43 .9 EMPHYSEMA, UNSPECIFIED 07/10/2018 LALO BONILLA, ALBANIA N Ot J43 .9 EMPHYSEMA, UNSPECIFIED 07/15/2018 LALO BONILLA, ALBANIA N Ot J43 .9 EMPHYSEMA, UNSPECIFIED 07/17/2018 LALO BONILLA, ALBANIA N Ot J43 .9 EMPHYSEMA, UNSPECIFIED 08/04/2018 LALO BONILLA, ALBANIA N Ot J43 .9 EMPHYSEMA, UNSPECIFIED 08/05/2018 ALBANIA MAY MD N Ot J43 .9 EMPHYSEMA, UNSPECIFIED 08/19/2018 LALO BONILLA, ALBANIA N Ot J43 .9 EMPHYSEMA, UNSPECIFIED 08/21/2018 LALO BONILLA, ALBANIA N Ot J43 .9 EMPHYSEMA, UNSPECIFIED 08/27/2018 LALO BONILLA, ALBANIA Zuniga Ot V10.52 HX OF KIDNEY MALIGNANCY 08/27/2018 YANCY BONILLA, JEANETTE Whitney Ot 573.9 LIVER DISORDER NOS 08/27/2018 YANCY BONILLA, JEANETTE Whitney Ot V76.12 OTH SCREEN MAMMO-MALIGN NEOPLASM OF NIMESH 08/27/2018 PAM MCCARTHY DO Ot 787. 91 DIARRHEA 08/27/2018 PAM MCCARTHY DO Ot V72. 84 EXAM PRE-OPERATIVE NOS 08/27/2018 JEANETTE HAINES MD Ot C64.9 MALIGNANT NEOPLASM OF UNSP KIDNEY, EXCEP 08/27/2018 JEANETTE HAINES MD Ot K76.89 OTHER SPECIFIED DISEASES OF LIVER 08/27/2018 PAM MCCARTHY DO Ot R13. 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 08/27/2018 JEANETTE HAINES MD, Ot K76.0 FATTY (CHANGE OF) LIVER, NOT ELSEWHERE C 08/27/2018 JEANETTE HAINES MD Ot R59.0 LOCALIZED ENLARGED LYMPH NODES 08/27/2018 JEANETTE HAINES MD, Ot C64.1 MALIGNANT NEOPLASM OF RIGHT KIDNEY, EXCE 08/27/2018 ALBANIA MAY MD, Ot Z12.31 ENCNTR SCREEN MAMMOGRAM FOR MALIGNANT NE 08/27/2018 ALBANIA MAY MD Ot R06.02 SHORTNESS OF BREATH 08/27/2018 ALBANIA MAY MD Ot R74 .8 ABNORMAL LEVELS OF OTHER SERUM ENZYMES 08/27/2018 JEANETTE HAINES MD, Ot C64.1 MALIGNANT NEOPLASM OF RIGHT KIDNEY, EXCE 08/27/2018 JEANETTE HAINES MD, Ot 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 08/27/2018 JEANETTE HAINES MD, Ot K76.0 FATTY (CHANGE OF) LIVER, NOT ELSEWHERE C 08/27/2018 JEANETTE HAINES MD, Ot Z90.5 ACQUIRED ABSENCE OF KIDNEY 08/27/2018 VALENTINA BURNETT MD, Ot C64.1 MALIGNANT NEOPLASM OF RIGHT KIDNEY, EXCE 08/27/2018 VALENTINA BURNETT MD Ot R91.8 OTHER NONSPECIFIC ABNORMAL FINDING OF MARIYA 08/27/2018 ALBANIA MAY MD, Ot J98 .4 OTHER DISORDERS OF LUNG 08/27/2018 VALENTINA BURNETT MD, Ot C64.1 MALIGNANT NEOPLASM OF RIGHT KIDNEY, EXCE 08/27/2018 VALENTINA BURNETT MD Ot E66.01 MORBID (SEVERE) OBESITY DUE TO EXCESS CA 08/27/2018 VALENTINA BURNETT MD Ot I10 ESSENTIAL (PRIMARY) HYPERTENSION 08/27/2018 VALENTINA BURNETT MD Ot Z68.41 BODY MASS INDEX (BMI) 40.0-44.9, ADULT 08/27/2018 VALENTINA BURNETT MD Ot 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 08/27/2018 ALBANIA MAY MD Ot J43 .9 EMPHYSEMA, UNSPECIFIED 09/06/2018 ALBANIA MAY MD Ot J43 .9 EMPHYSEMA, UNSPECIFIED 09/16/2018 ALBANIA MAY MD Ot J43 .9 EMPHYSEMA, UNSPECIFIED 09/23/2018 ALBANIA MAY MD Ot J43 .9 EMPHYSEMA, UNSPECIFIED 09/30/2018 LALO BONILLA, ALBANIA Zuniga Ot J43 .9 EMPHYSEMA, UNSPECIFIED 10/01/2018 LALO BONILLA, ALBANIA Zuniga Ot J43 .9 EMPHYSEMA, UNSPECIFIED 10/02/2018 LALO BONILLA, ALBANIA Zuniga Ot J43 .9 EMPHYSEMA, UNSPECIFIED 10/07/2018 LALO BONILLA, ALBANIA Zuniga Ot J43 .9 EMPHYSEMA, UNSPECIFIED 10/14/2018 LALO BONILLA, ALBANIA Zuniga Ot J43 .9 EMPHYSEMA, UNSPECIFIED 10/14/2018 LALO BONILLA, ALBANIA N Ot J43 .9 EMPHYSEMA, UNSPECIFIED 10/21/2018 LALO BONILLA, ALBANIA Zuniga Ot J43 .9 EMPHYSEMA, UNSPECIFIED 10/21/2018 LALO BONILLA, ALBANIA Zuniga Ot J43 .9 EMPHYSEMA, UNSPECIFIED 10/23/2018 ALBANIA MAY MD Ot J43 .9 EMPHYSEMA, UNSPECIFIED 10/28/2018 ALBANIA MAY MD Ot J43 .9 EMPHYSEMA, UNSPECIFIED 11/06/2018 ALBANIA MAY MD Ot V10.52 HX OF KIDNEY MALIGNANCY 11/06/2018 JEANETTE HAINES MD Ot 573.9 LIVER DISORDER NOS 11/06/2018 JEANETTE HAIENS MD Ot V76.12 OTH SCREEN MAMMO-MALIGN NEOPLASM OF NIMESH 11/06/2018 PAM MCCARTHY DO Ot 787. 91 DIARRHEA 11/06/2018 PAM MCCARTHY DO Ot V72. 84 EXAM PRE-OPERATIVE NOS 11/06/2018 JEANETTE HAINES MD Ot C64.9 MALIGNANT NEOPLASM OF UNSP KIDNEY, EXCEP 11/06/2018 JEANETTE HAINES MD Ot K76.89 OTHER SPECIFIED DISEASES OF LIVER 11/06/2018 PAM MCCARTHY DO Ot R13. 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 11/06/2018 JEANETTE HAINES MD Ot K76.0 FATTY (CHANGE OF) LIVER, NOT ELSEWHERE C 11/06/2018 YANCY MD, JEANETTE K Ot R59.0 LOCALIZED ENLARGED LYMPH NODES 11/06/2018 JEANETTE HAINES MD, Ot C64.1 MALIGNANT NEOPLASM OF RIGHT KIDNEY, EXCE 11/06/2018 ALBANIA MAY MD Ot Z12.31 ENCNTR SCREEN MAMMOGRAM FOR MALIGNANT NE 11/06/2018 ALBANIA MAY MD Ot R06.02 SHORTNESS OF BREATH 11/06/2018 ALBANIA MAY MD Ot R74 .8 ABNORMAL LEVELS OF OTHER SERUM ENZYMES 11/06/2018 JEANETTE HAINES MD, Ot C64.1 MALIGNANT NEOPLASM OF RIGHT KIDNEY, EXCE 11/06/2018 JEANETTE HAINES MD Ot 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 11/06/2018 JEANETTE HAINES MD, Ot K76.0 FATTY (CHANGE OF) LIVER, NOT ELSEWHERE C 11/06/2018 JEANETTE HAINES MD Ot Z90.5 ACQUIRED ABSENCE OF KIDNEY 11/06/2018 VALENTINA BURNETT MD Ot C64.1 MALIGNANT NEOPLASM OF RIGHT KIDNEY, EXCE 11/06/2018 VALENTINA BURNETT MD Ot R91.8 OTHER NONSPECIFIC ABNORMAL FINDING OF MARIYA 11/06/2018 ALBANIA MAY MD Ot J98 .4 OTHER DISORDERS OF LUNG 11/06/2018 ALBANIA MAY MD Ot J43 .9 EMPHYSEMA, UNSPECIFIED 11/11/2018 ALBANIA MAY MD Ot J43 .9 EMPHYSEMA, UNSPECIFIED 11/17/2018 ALBANIA MAY MD Ot J43 .9 EMPHYSEMA, UNSPECIFIED 12/17/2018 ALBANIA MAY MD Ot V10.52 HX OF KIDNEY MALIGNANCY 12/17/2018 JEANETTE HAINES MD Ot 573.9 LIVER DISORDER NOS 12/17/2018 JEANETTE HAINES MD Ot V76.12 OTH SCREEN MAMMO-MALIGN NEOPLASM OF NIMESH 12/17/2018 PAM MCCARTHY DO Ot 787. 91 DIARRHEA 12/17/2018 PAM MCCARTHY DO Ot V72. 84 EXAM PRE-OPERATIVE NOS 12/17/2018 JEANETTE HAINES MD Ot C64.9 MALIGNANT NEOPLASM OF UNSP KIDNEY, EXCEP 12/17/2018 JEANETTE HAINES MD Ot K76.89 OTHER SPECIFIED DISEASES OF LIVER 12/17/2018 PAM MCCARTHY DO Ot R13. 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 12/17/2018 JEANETTE HAINES MD, Ot K76.0 FATTY (CHANGE OF) LIVER, NOT ELSEWHERE C 12/17/2018 JEANETTE HAINES MD, Ot R59.0 LOCALIZED ENLARGED LYMPH NODES 12/17/2018 JEANETTE HAINES MD, Ot C64.1 MALIGNANT NEOPLASM OF RIGHT KIDNEY, EXCE 12/17/2018 ALBANIA MAY MD, Ot Z12.31 ENCNTR SCREEN MAMMOGRAM FOR MALIGNANT NE 12/17/2018 ALBANIA MAY MD, Ot R06.02 SHORTNESS OF BREATH 12/17/2018 ALBANIA MAY MD, Ot R74 .8 ABNORMAL LEVELS OF OTHER SERUM ENZYMES 12/17/2018 JEANETTE HAINES MD, Ot C64.1 MALIGNANT NEOPLASM OF RIGHT KIDNEY, EXCE 12/17/2018 JEANETTE HAINES MD, Ot 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 12/17/2018 JEANETTE HAINES MD, Ot K76.0 FATTY (CHANGE OF) LIVER, NOT ELSEWHERE C 12/17/2018 JEANETTE HAINES MD, Ot Z90.5 ACQUIRED ABSENCE OF KIDNEY 12/17/2018 VALENTINA BURNETT MD, Ot C64.1 MALIGNANT NEOPLASM OF RIGHT KIDNEY, EXCE 12/17/2018 VALENTINA BURNETT MD Ot R91.8 OTHER NONSPECIFIC ABNORMAL FINDING OF MARIYA 12/17/2018 ALBANIA MAY MD, Ot J98 .4 OTHER DISORDERS OF LUNG 12/17/2018 VALENTINA BURNETT MD, Ot C64.1 MALIGNANT NEOPLASM OF RIGHT KIDNEY, EXCE 12/17/2018 VALENTINA BURNETT MD Ot E66.01 MORBID (SEVERE) OBESITY DUE TO EXCESS CA 12/17/2018 VALENTINA BURNETT MD Ot I10 ESSENTIAL (PRIMARY) HYPERTENSION 12/17/2018 VALENTINA BURNETT MD, Ot Z68.41 BODY MASS INDEX (BMI) 40.0-44.9, ADULT 12/17/2018 VALENTINA BURNETT MD, Ot Z79.899 OTHER RETIREMENT (CURRENT) DRUG THERAPY 12/17/2018 ALBANIA MAY MD, Ot J43 .9 EMPHYSEMA, UNSPECIFIED 12/25/2018 ALBANIA MAY MD Ot J43 .9 EMPHYSEMA, UNSPECIFIED 02/04/2019 VALENTINA BURNETT MD Ot C64.1 MALIGNANT NEOPLASM OF RIGHT KIDNEY, EXCE 02/04/2019 VALENTINA BURNETT MD Ot E66.01 MORBID (SEVERE) OBESITY DUE TO EXCESS CA 02/04/2019 VALENTINA BURNETT MD Ot I10 ESSENTIAL (PRIMARY) HYPERTENSION 02/04/2019 VALENTINA BURNETT MD Ot Z68.41 BODY MASS INDEX (BMI) 40.0-44.9, ADULT 02/04/2019 VALENTINA BURNETT MD Ot Z79.899 OTHER RETIREMENT (CURRENT) DRUG THERAPY 02/05/2019 VALENTINA BURNETT MD Ot C64.1 MALIGNANT NEOPLASM OF RIGHT KIDNEY, EXCE 02/05/2019 VALENTINA BURNETT MD Ot E66.01 MORBID (SEVERE) OBESITY DUE TO EXCESS CA 02/05/2019 VALENTINA BURNETT MD Ot I10 ESSENTIAL (PRIMARY) HYPERTENSION 02/05/2019 VALENTINA BURNETT MD Ot Z68.41 BODY MASS INDEX (BMI) 40.0-44.9, ADULT 02/05/2019 VALENTINA BURNETT MD Ot 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 07/14/2019 ALBANIA MAY MD N Ot J43 .9 EMPHYSEMA, UNSPECIFIED 07/14/2019 ALBANIA MAY MD N Ot J98 .4 OTHER DISORDERS OF LUNG 07/19/2019 ALBANIA MAY MD N Ot J43 .9 EMPHYSEMA, UNSPECIFIED 07/19/2019 ALBANIA MAY MD N Ot J98 .4 OTHER DISORDERS OF LUNG 01/14/2020 FAVIAN PANTOJA MD, Ot C64. 1 MALIGNANT NEOPLASM OF RIGHT KIDNEY, EXCE 01/14/2020 FAVIAN PANTOJA MD, Ot E66. 01 MORBID (SEVERE) OBESITY DUE TO EXCESS CA 01/14/2020 FAVIAN PANTOJA MD Ot I10 ESSENTIAL (PRIMARY) HYPERTENSION 01/14/2020 FAVIAN PANTOJA MD, Ot Z68. 41 BODY MASS INDEX (BMI) 40.0-44.9, ADULT 01/14/2020 FAVIAN PANTOJA MD Ot 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 01/25/2020 FAVIAN PANTOJA MD, Ot C64. 1 MALIGNANT NEOPLASM OF RIGHT KIDNEY, EXCE 01/25/2020 FAVIAN PANTOJA MD Ot E66. 01 MORBID (SEVERE) OBESITY DUE TO EXCESS CA 01/25/2020 FAVIAN PANTOJA MD Ot I10 ESSENTIAL (PRIMARY) HYPERTENSION 01/25/2020 FAVIAN PANTOJA MD, Ot M15. 9 POLYOSTEOARTHRITIS, UNSPECIFIED 01/25/2020 FAVIAN PANTOJA MD Ot R16. 0 HEPATOMEGALY, NOT ELSEWHERE CLASSIFIED 01/25/2020 FAVIAN PANTOJA MD Ot Z72. 0 TOBACCO USE 01/25/2020 FAVIAN PANTOJA MD Ot Z90. 5 ACQUIRED ABSENCE OF KIDNEY 01/25/2020 FAVIAN PANTOJA MD Ot Z90.710 ACQUIRED ABSENCE OF BOTH CERVIX AND UTER 01/25/2020 FAVIAN PANTOJA MD Ot Z98.890 OTHER SPECIFIED POSTPROCEDURAL STATES 01/27/2020 FAVIAN PANTOJA MD Ot C64. 1 MALIGNANT NEOPLASM OF RIGHT KIDNEY, EXCE 01/27/2020 FAVIAN PANTOJA MD Ot E66. 01 MORBID (SEVERE) OBESITY DUE TO EXCESS CA 01/27/2020 FAVIAN PANTOJA MD Ot I10 ESSENTIAL (PRIMARY) HYPERTENSION 01/27/2020 FAVIAN PANTOJA MD Ot M15. 9 POLYOSTEOARTHRITIS, UNSPECIFIED 01/27/2020 FAVIAN PANTOJA MD Ot R16. 0 HEPATOMEGALY, NOT ELSEWHERE CLASSIFIED 01/27/2020 FAVIAN PANTOJA MD Ot Z72. 0 TOBACCO USE 01/27/2020 FAVIAN PANTOJA MD Ot Z90. 5 ACQUIRED ABSENCE OF KIDNEY 01/27/2020 FAVIAN PANTOJA MD Ot Z90.710 ACQUIRED ABSENCE OF BOTH CERVIX AND UTER 01/27/2020 FAVIAN PANTOJA MD Ot Z98.890 OTHER SPECIFIED POSTPROCEDURAL STATES 02/05/2020 JERMAINE BARNES MD Ot C64. 9 MALIGNANT NEOPLASM OF UNSP KIDNEY, EXCEP 02/05/2020 JERMAINE BARNES MD Ot E78. 2 MIXED HYPERLIPIDEMIA 02/05/2020 JERMAINE BARNES MD Ot I10 ESSENTIAL (PRIMARY) HYPERTENSION 02/05/2020 JERMAINE BARNES MD Ot M19. 90 UNSPECIFIED OSTEOARTHRITIS, UNSPECIFIED Procedures Code Description [place] [address] ROUT INE VENIPUNCTURE 10/28/2014 70219 HEMOCCULT 10/28/[id number] GF R CALC (RESULT ONLY) 10/28/2014 09105 CMP 10/28/2014 14087 LIPI D PANEL 10/28/2014 27718 HEMOCCULT 10/29/2014 Results Test Result Range CBC With Differential/Platelet - 6 11:49 WBC 10.2 x10E3/uL 3.4-10.8 RBC 4.48 x10E6/uL 3.77-5.28 Hemoglobin 12.5 g/dL 11.1-15.9 Hematocrit 39.0 % 34.0-46.6 MCV 87 fL 79-97 MCH 27.9 pg 26.6-33.0 MCHC 32.1 g/dL 31.5-35.7 RDW 13.6 % 12.3-15.4 Platelets 256 x10E3/uL 150-379 Neutrophils 44 % Lymphs 43 % Monocytes 8 % Eos 4 % Basos 0 % Neutrophils (Absolute) 4.5 x10E3/uL 1.4- 7.0 Lymphs (Absolute) 4.4 x10E3/uL 0.7-3.1 Monocytes(Absolute) 0.9 x10E3/uL 0.1-0.9 Eos (Absolute) 0.4 x10E3/uL 0.0-0.4 Baso (Absolute) 0.0 x10E3/uL 0.0-0.2 Immature Granulocytes 1 % Immature Grans (Abs) 0.1 x10E3/uL 0.0-0. 1 Comp. Metabolic Panel (14) - 06/07/16 11 :49 Glucose, Serum 77 mg/dL 65-99 BUN 13 mg/dL 6-24 Creatinine, Serum 0.80 mg/dL 0.57-1.00 eGFR If NonAfricn Am 81 mL/min/1.73 >59 eGFR If Africn Am 93 mL/min/1.73 >59 BUN/Creatinine Ratio 16 9-23 Sodium, Serum 141 mmol/L 136-144 Potassium, Serum 4.3 mmol/L 3.5-5.2 Chloride, Serum 104 mmol/L 97-106 Carbon Dioxide, Total 22 mmol/L 18-29 Calcium, Serum 9.0 mg/dL 8.7-10.2 Protein, Total, Serum 6.7 g/dL 6.0-8.5 Albumin, Serum 4.3 g/dL 3.5-5.5 Globulin, Total 2.4 g/dL 1.5-4.5 A/G Ratio 1.8 1.1-2.5 Bilirubin, Total 0.2 mg/dL 0.0-1.2 Alkaline Phosphatase, S 113 IU/L 39-117 AST (SGOT) 24 IU/L 0-40 ALT (SGPT) 38 IU/L 0-32 Lipid Panel - 06/07/16 11:49 Cholesterol, Total 130 mg/dL 100-199 Triglycerides 208 mg/dL 0-149 HDL Cholesterol 47 mg/dL >39 VLDL Cholesterol Fazal 42 mg/dL 5-40 LDL Cholesterol Calc 41 mg/dL 0-99 B-Type Natriuretic Peptide - 06/07/16 11 :49 B-Type Natriuretic Peptide 16.1 pg/mL 0. 0-100.0 Hepatitis Panel (4) - 06/11/16 10:59 HBsAg Screen Negative Negative Hep A Ab, IgM Negative Negative Hep B Core Ab, IgM Negative Negative Hep C Virus Ab <0.1 s/co ratio 0.0-0.9 Basic Metabolic Panel (8) - 07/09/16 12: 25 Glucose, Serum 96 mg/dL 65-99 BUN 17 mg/dL 6-24 Creatinine, Serum 0.78 mg/dL 0.57-1.00 eGFR If NonAfricn Am 83 mL/min/1.73 >59 eGFR If Africn Am 96 mL/min/1.73 >59 BUN/Creatinine Ratio 22 9-23 Sodium, Serum 144 mmol/L 134-144 Potassium, Serum 4.4 mmol/L 3.5-5.2 Chloride, Serum 103 mmol/L 96-106 Carbon Dioxide, Total 24 mmol/L 18-29 Calcium, Serum 9.1 mg/dL 8.7-10.2 Prot+CreatU (Random) - 08/06/16 11:29 Creatinine, Urine 90.2 mg/dL Not Estab. Protein,Total,Urine 10.0 mg/dL Not Estab . Protein/Creat Ratio 111 mg/g creat 0-200 Protein Electro.,S - 10/18/16 11:20 Protein, Total, Serum 6.8 g/dL 6.0-8.5 Albumin 3.8 g/dL 2.9-4.4 Sixvk-4-Bwvtnfgi 0.2 g/dL 0.0-0.4 Kauor-8-Lyexayry 0.7 g/dL 0.4-1.0 Beta Globulin 1.2 g/dL 0.7-1.3 Gamma Globulin 0.9 g/dL 0.4-1.8 M-David Not Observed g/dL Not Observed Globulin, Total 3.0 g/dL 2.2-3.9 A/G Ratio 1.3 0.7-1.7 Please note: Comment Folate (Folic Acid), Serum - 10/18/16 11 :20 Folate (Folic Acid), Serum 14.3 ng/mL >3 .0 TSH - 10/18/16 11:20 TSH 1.960 uIU/mL 0.450-4.500 Vitamin B12 - 10/18/16 11:20 Vitamin B12 336 pg/mL 211-946 CBC With Differential/Platelet - 7 10:17 WBC 7.3 x10E3/uL 3.4-10.8 RBC 4.21 x10E6/uL 3.77-5.28 Hemoglobin 12.1 g/dL 11.1-15.9 Hematocrit 37.1 % 34.0-46.6 MCV 88 fL 79-97 MCH 28.7 pg 26.6-33.0 MCHC 32.6 g/dL 31.5-35.7 RDW 14.2 % 12.3-15.4 Platelets 197 x10E3/uL 150-379 Neutrophils 40 % Lymphs 48 % Monocytes 8 % Eos 4 % Basos 0 % Neutrophils (Absolute) 3.0 x10E3/uL 1.4- 7.0 Lymphs (Absolute) 3.5 x10E3/uL 0.7-3.1 Monocytes(Absolute) 0.6 x10E3/uL 0.1-0.9 Eos (Absolute) 0.3 x10E3/uL 0.0-0.4 Baso (Absolute) 0.0 x10E3/uL 0.0-0.2 Immature Granulocytes 0 % Immature Grans (Abs) 0.0 x10E3/uL 0.0-0. 1 Comp. Metabolic Panel (14) - 12/06/16 10 :17 Glucose, Serum 101 mg/dL 65-99 BUN 18 mg/dL 8-27 Creatinine, Serum 0.94 mg/dL 0.57-1.00 eGFR If NonAfricn Am 66 mL/min/1.73 >59 eGFR If Africn Am 76 mL/min/1.73 >59 BUN/Creatinine Ratio 19 12-28 Sodium, Serum 145 mmol/L 134-144 Potassium, Serum 4.5 mmol/L 3.5-5.2 Chloride, Serum 106 mmol/L 96-106 Carbon Dioxide, Total 26 mmol/L 18-29 Calcium, Serum 9.2 mg/dL 8.7-10.3 Protein, Total, Serum 6.8 g/dL 6.0-8.5 Albumin, Serum 4.3 g/dL 3.6-4.8 Globulin, Total 2.5 g/dL 1.5-4.5 A/G Ratio 1.7 1.2-2.2 Bilirubin, Total 0.3 mg/dL 0.0-1.2 Alkaline Phosphatase, S 133 IU/L 39-117 AST (SGOT) 21 IU/L 0-40 ALT (SGPT) 29 IU/L 0-32 Lipid Panel - 12/06/16 10:17 Cholesterol, Total 125 mg/dL 100-199 Triglycerides 185 mg/dL 0-149 HDL Cholesterol 42 mg/dL >39 VLDL Cholesterol Fazal 37 mg/dL 5-40 LDL Cholesterol Calc 46 mg/dL 0-99 Methicillin resistant Staphylococcus aur eus (MRSA) screening culture - 12/19/16 10:08 Methicillin resistant Staphylococcus aureus (MRSA) scr eening culture NEG [facility] Methicillin resistant Staphylococcus aur eus (MRSA) screening culture - 01/23/17 07:45 Methicillin resistant Staphylococcus aureus (MRSA) scr eening culture NEG [facility] Pathology Report - 04/02/17 09:56 . Comment . Comment . Comment . Comment: . Comment . Comment . Comment . Comment . Comment PATHOLOGY REPORT - 04/02/17 09:56 . NRG . NRG . NRG . NRG . NRG . NRG . NRG . Comment: NRG . NRG CBC With Differential/Platelet - 7 12:23 WBC 7.0 x10E3/uL 3.4-10.8 RBC 4.33 x10E6/uL 3.77-5.28 Hemoglobin 12.4 g/dL 11.1-15.9 Hematocrit 38.0 % 34.0-46.6 MCV 88 fL 79-97 MCH 28.6 pg 26.6-33.0 MCHC 32.6 g/dL 31.5-35.7 RDW 14.1 % 12.3-15.4 Platelets 191 x10E3/uL 150-379 Neutrophils 40 % Not Estab. Lymphs 49 % Not Estab. Monocytes 8 % Not Estab. Eos 3 % Not Estab. Basos 0 % Not Estab. Neutrophils (Absolute) 2.8 x10E3/uL 1.4- 7.0 Lymphs (Absolute) 3.4 x10E3/uL 0.7-3.1 Monocytes(Absolute) 0.6 x10E3/uL 0.1-0.9 Eos (Absolute) 0.2 x10E3/uL 0.0-0.4 Baso (Absolute) 0.0 x10E3/uL 0.0-0.2 Immature Granulocytes 0 % Not Esta b. Immature Grans (Abs) 0.0 x10E3/uL 0.0-0. 1 Comp. Metabolic Panel (14) - 04/30/17 12 :23 Glucose, Serum 80 mg/dL 65-99 BUN 18 mg/dL 8-27 Creatinine, Serum 0.92 mg/dL 0.57-1.00 eGFR If NonAfricn Am 68 mL/min/1.73 >59 eGFR If Africn Am 78 mL/min/1.73 >59 BUN/Creatinine Ratio 20 12-28 Sodium, Serum 144 mmol/L 134-144 Potassium, Serum 4.3 mmol/L 3.5-5.2 Chloride, Serum 103 mmol/L 96-106 Carbon Dioxide, Total 25 mmol/L 18-29 Calcium, Serum 9.4 mg/dL 8.7-10.3 Protein, Total, Serum 6.9 g/dL 6.0-8.5 Albumin, Serum 4.7 g/dL 3.6-4.8 Globulin, Total 2.2 g/dL 1.5-4.5 A/G Ratio 2.1 1.2-2.2 Bilirubin, Total 0.4 mg/dL 0.0-1.2 Alkaline Phosphatase, S 137 IU/L 39-117 AST (SGOT) 30 IU/L 0-40 ALT (SGPT) 43 IU/L 0-32 Lipid Panel - 04/30/17 12:23 Cholesterol, Total 162 mg/dL 100-199 Triglycerides 232 mg/dL 0-149 HDL Cholesterol 46 mg/dL >39 VLDL Cholesterol Fazal 46 mg/dL 5-40 LDL Cholesterol Calc 70 mg/dL 0-99 [facility] [place] - 04/30/17 12:23 Glucose, Serum 80 mg/dL 65-99 BUN 18 mg/dL 8-27 Creatinine, Serum 0.92 mg/dL 0.57-1.00 eGFR If NonAfricn Am 68 mL/min/1.73 >59 eGFR If Africn Am 78 mL/min/1.73 >59 BUN/Creatinine Ratio 20 12-28 Sodium, Serum 144 mmol/L 134-144 Potassium, Serum 4.3 mmol/L 3.5-5.2 Chloride, Serum 103 mmol/L 96-106 Carbon Dioxide, Total 25 mmol/L 18-29 Calcium, Serum 9.4 mg/dL 8.7-10.3 Protein, Total, Serum 6.9 g/dL 6.0-8.5 Albumin, Serum 4.7 g/dL 3.6-4.8 Globulin, Total 2.2 g/dL 1.5-4.5 A/G Ratio 2.1 1.2-2.2 Bilirubin, Total 0.4 mg/dL 0.0-1.2 Alkaline Phosphatase, S 137 IU/L 39-117 AST (SGOT) 30 IU/L 0-40 ALT (SGPT) 43 IU/L 0-32 LIPID PANEL - 06/13/18 12:49 CHOLESTEROL, TOTAL 129 mg/dL <200 HDL CHOLESTEROL 46 mg/dL >50 TRIGLYCERIDES 154 mg/dL <150 LDL-CHOLESTEROL 59 mg/dL (calc) NRG CHOL/HDLC RATIO 2.8 (calc) <5.0 NON HDL CHOLESTEROL 83 mg/dL (calc) <130 [facility] [place] - 06/13/18 12:49 GLUCOSE 100 mg/dL 65-99 UREA NITROGEN (BUN) 16 mg/dL 7-25 CREATININE 1.04 mg/dL 0.50-0.99 eGFR NON-AFR. BELGIAN 58 mL/min/1.73m2 > OR = 60 eGFR 67 mL/min/1.73m2 > OR = 60 BUN/CREATININE RATIO 15 (calc) 6-22 SODIUM 142 mmol/L 135-146 POTASSIUM 3.9 mmol/L 3.5-5.3 CHLORIDE 107 mmol/L 98-110 CARBON DIOXIDE 26 mmol/L 20-32 CALCIUM 9.4 mg/dL 8.6-10.4 PROTEIN, TOTAL 7.4 g/dL 6.1-8.1 ALBUMIN 4.8 g/dL 3.6-5.1 GLOBULIN 2.6 g/dL (calc) 1.9-3.7 ALBUMIN/GLOBULIN RATIO 1.8 (calc) 1.0-2. 5 BILIRUBIN, TOTAL 0.7 mg/dL 0.2-1.2 ALKALINE PHOSPHATASE 113 U/L 33-130 AST 22 U/L 10-35 ALT 28 U/L 6-29 CBC - 06/13/18 12:49 WHITE BLOOD CELL COUNT 7.9 Thousand/uL 3 .8-10.8 RED BLOOD CELL COUNT 4.76 Million/uL 3.8 0-5.10 HEMOGLOBIN 13.8 g/dL 11.7-15.5 HEMATOCRIT 41.3 % 35.0-45.0 MCV 86.8 fL 80.0-100.0 MCH 29.0 pg 27.0-33.0 MCHC 33.4 g/dL 32.0-36.0 RDW 12.8 % 11.0-15.0 PLATELET COUNT 237 Thousand/uL 140-400 MPV 11.1 fL 7.5-12.5 ABSOLUTE NEUTROPHILS 4108 cells/uL 1500- 7800 ABSOLUTE LYMPHOCYTES 3057 cells/uL 850-3 900 ABSOLUTE MONOCYTES 529 cells/uL 200-950 ABSOLUTE EOSINOPHILS 166 cells/uL 15-500 ABSOLUTE BASOPHILS 40 cells/uL 0-200 NEUTROPHILS 52 % NRG LYMPHOCYTES 38.7 % NRG MONOCYTES 6.7 % NRG EOSINOPHILS 2.1 % NRG BASOPHILS 0.5 % NRG CMP - 07/10/18 11:11 GLUCOSE 99 mg/dL 65-99 UREA NITROGEN (BUN) 12 mg/dL 7-25 CREATININE 1.01 mg/dL 0.50-0.99 eGFR NON-AFR. BELGIAN 60 mL/min/1.73m2 > OR = 60 eGFR 70 mL/min/1.73m2 > OR = 60 BUN/CREATININE RATIO 12 (calc) 6-22 SODIUM 144 mmol/L 135-146 POTASSIUM 3.8 mmol/L 3.5-5.3 CHLORIDE 110 mmol/L 98-110 CARBON DIOXIDE 27 mmol/L 20-32 CALCIUM 9.2 mg/dL 8.6-10.4 PROTEIN, TOTAL 6.7 g/dL 6.1-8.1 ALBUMIN 4.3 g/dL 3.6-5.1 GLOBULIN 2.4 g/dL (calc) 1.9-3.7 ALBUMIN/GLOBULIN RATIO 1.8 (calc) 1.0-2. 5 BILIRUBIN, TOTAL 0.6 mg/dL 0.2-1.2 ALKALINE PHOSPHATASE 117 U/L 33-130 AST 19 U/L 10-35 ALT 25 U/L 01-24 CMP - 09/22/18 11:55 GLUCOSE 96 mg/dL 65-99 UREA NITROGEN (BUN) 11 mg/dL 7-25 CREATININE 0.98 mg/dL 0.50-0.99 eGFR NON-AFR. BELGIAN 62 mL/min/1.73m2 > OR = 60 eGFR 72 mL/min/1.73m2 > OR = 60 BUN/CREATININE RATIO NOT APPLICABLE (calc) 6- SODIUM 142 mmol/L 135-146 POTASSIUM 3.7 mmol/L 3.5-5.3 CHLORIDE 106 mmol/L 98-110 CARBON DIOXIDE 28 mmol/L 20-32 CALCIUM 9.3 mg/dL 8.6-10.4 PROTEIN, TOTAL 7.1 g/dL 6.1-8.1 ALBUMIN 4.5 g/dL 3.6-5.1 GLOBULIN 2.6 g/dL (calc) 1.9-3.7 ALBUMIN/GLOBULIN RATIO 1.7 (calc) 1.0-2. 5 BILIRUBIN, TOTAL 0.6 mg/dL 0.2-1.2 ALKALINE PHOSPHATASE 118 U/L 33-130 AST 18 U/L 10-35 ALT 21 U/L 01-24 CBC - 12/26/18 11:55 WHITE BLOOD CELL COUNT 6.0 Thousand/uL 3 .8-10.8 RED BLOOD CELL COUNT 4.23 Million/uL 3.8 0-5.10 HEMOGLOBIN 12.2 g/dL 11.7-15.5 HEMATOCRIT 37.3 % 35.0-45.0 MCV 88.2 fL 80.0-100.0 MCH 28.8 pg 27.0-33.0 MCHC 32.7 g/dL 32.0-36.0 RDW 13.1 % 11.0-15.0 PLATELET COUNT 181 Thousand/uL 140-400 MPV 11.0 fL 7.5-12.5 ABSOLUTE NEUTROPHILS 2766 cells/uL 1500- 7800 ABSOLUTE LYMPHOCYTES 2550 cells/uL 850-3 900 ABSOLUTE MONOCYTES 486 cells/uL 200-950 ABSOLUTE EOSINOPHILS 168 cells/uL 15-500 ABSOLUTE BASOPHILS 30 cells/uL 0-200 NEUTROPHILS 46.1 % NRG LYMPHOCYTES 42.5 % NRG MONOCYTES 8.1 % NRG EOSINOPHILS 2.8 % NRG BASOPHILS 0.5 % NRG TSH - 12/26/18 11:55 TSH 2.30 mIU/L 0.40-4.50 PROTEIN, TOTAL W/CREAT, RANDOM URINE - 0 01/19/20 13:06 CREATININE, RANDOM URINE 61 mg/dL 20-27 5 PROTEIN/CREATININE RATIO 115 mg/g creat 21-161 PROTEIN, TOTAL, RANDOM UR 7 mg/dL 5-24 VITAMIN D, 25-H - 01/19/20 13:10 VITAMIN D,25-OH,TOTAL,IA 9 ng/mL 30-10 0 PTH (INTACT) - 01/19/20 13:12 CALCIUM 9.1 mg/dL 8.6-10.4 PARATHYROID HORMONE, INTACT 175 pg/mL 14 -64 Encounters ACCT No. Visit Date/Time Discharge Status Pt. Type Provider Facility Loc./Unit Complaint [id number] 08/07/2016 13:06:00 Document Registration [id number] 07/10/2016 08:38:00 Document Registration [id number] 06/12/2016 13:05:00 Document Registration [id number] 06/08/2016 13:05:00 Document Registration [id number] 04/08/2017 18:08:00 Document Registration [id number] 10/19/2016 19:06:00 Document Registration [id number] 02/04/2020 09:58:00 23:59:59 CLS Outpatient JERMAINE BARNES MD Via [facility] CARD ANTERIOR CHEST WALL PAIN,HYPERTENSION,HYPERLIPIDEM [id number] 02/03/2020 06:51:00 23:59:59 CLS Outpatient JERMAINE BARNES MD [facility] CARD ANTERIOR CHEST WALL PAIN,HYPERTENSION,HYPERLIPIDEM [id number] 01/21/2020 13:41:00 23:59:59 CLS Outpatient KIT BONILLA, FAVIAN Via [facility] ONC [id number] 07/13/2019 14:26:00 23:59:59 CLS Outpatient ALBANIA MAY MD [facility] RT RESTRICTIVE LUNG DISEAS E [id number] 11/06/2018 13:16:00 019 00:01:00 DIS Outpatient VALENTINA BURNETT MD [facility] ONC [id number] 11/18/2018 14:15:00 23:59:59 CLS Preadmit ALBANIA MAY MD Via [facility] PULM PULMONARY EMPHYSEMA J43 .9 [id number] 10/28/2018 15:00:00 00:01:00 DIS Outpatient ALBANIA MAY MD [facility] PULM PULMONARY EMPHYSEMA J43 .9 [id number] 07/17/2018 15:00:00 00:01:00 DIS Outpatient ALBANIA MAY MD Via [facility] PULM PULMONARY EMPHYSEMA J43 .9 [id number] 04/07/2018 13:46:00 018 00:01:00 DIS Outpatient ALBANIA MAY MD [facility] PULM PULMONARY EMPHYSEMA J43 .9 [id number] 11/06/2017 12:55:00 018 00:01:00 DIS Outpatient VALENTINA BURNETT MD, V [facility] ONC [id number] 10/30/2017 11:08:00 018 23:59:59 CLS Outpatient VALENTINA BURNETT MD [facility] RAD CA OF KIDNEY [id number] 07/15/2017 14:26:00 018 00:01:00 DIS Outpatient VALENTINA BURNETT MD [facility] ONC [id number] 08/26/2017 16:33:00 018 23:59:59 CLS Outpatient ALBANIA MAY MD [facility] RAD J98.4 RESTRICTIVE LUNG DISEASE [id number] 01/22/2017 12:45:00 017 00:01:00 DIS Outpatient JEANETTE HAINES MD, V [facility] ONC [id number] 01/23/2017 07:12:00 017 11:07:00 DIS Outpatient KATERINA SIEGEL MD [facility] SDC CARPAL TUNNEL [id number] 01/17/2017 05:37:00 017 14:23:00 DIS Outpatient KATERINA SIEGEL MD [facility] PREOP RIGHT CARPAL TUNNEL [id number] 01/14/2017 08:48:00 017 23:59:59 CLS Outpatient YANCY BONILLA, JAENETTE dao [facility] RAD C64.1 CANCER OF KIDNEY [id number] 12/26/2016 08:45:00 017 12:00:00 DIS Outpatient KTAERINA SIEGEL MD [facility] SDC LEFT CARPAL TUNNEL SYND TORREY [id number] 12/19/2016 09:44:00 017 10:05:00 DIS Outpatient KATERINA SIEGEL MD [facility] PREOP LEFT CARPAL TUNNEL SYND TROREY [id number] 07/31/2016 12:30:00 017 00:01:00 DIS Outpatient YANCY BONILLA, JEANETTE dao [facility] ONC [id number] 07/25/2016 10:00:00 016 23:59:59 CLS Outpatient YANCY BONILLA, JEANETTE dao [facility] RAD CANCER OF KIDNEY [id number] 06/19/2016 11:23:00 016 23:59:59 CLS Outpatient ALBANIA MAY MD [facility] CARD SOB [id number] 06/15/2016 07:29:00 016 23:59:59 CLS Outpatient ALBANIA MAY MD [facility] RAD LIVER ENZYME ELEVATION [id number] 05/02/2016 19:52:00 016 07:30:00 DIS Outpatient ALBANIA MAY MD [facility] SLEEP HYPOXIA AT NIGHT, HTN [id number] 04/10/2016 11:06:00 016 23:59:59 CLS Outpatient ALBANIA MAY MD [facility] RAD WELL WOMEN EXAM [id number] 01/23/2016 13:44:00 016 00:01:00 DIS Outpatient JEANETTE HAINES MD [facility] ONC [id number] 01/19/2016 08:35:00 23:59:59 CLS Outpatient JEANETTE HAINES MD [facility] RAD KIDNEY CA LIVER MASS [id number] 01/13/2016 17:55:00 016 17:00:00 DIS Inpatient ALBANIA MAY MD [facility] 4TH TIA [id number] 08/04/2015 13:48:00 00:01:00 DIS Outpatient JEANETTE HAINES MD [facility] ONC [id number] 08/09/2015 09:30:00 016 13:20:00 DIS Outpatient PAM MCCARTHY DO Via [facility] DYSPHAIA [id number] 08/05/2015 05:36:00 016 23:59:59 CLS Outpatient PAM MCCARTHY DO [facility] PREOP DYSPHAGIA [id number] 07/03/2015 15:51:00 015 23:59:59 CLS Outpatient EMILY MATTSON [facility] QUICK [id number] 05/12/2015 11:08:00 015 23:59:59 CLS Outpatient JEANETTE HAINES MD [facility] RAD KIDNEY CA, LIVER MASS [id number] 03/31/2015 10:21:00 015 00:01:00 DIS Outpatient JEANETTE HAINES MD [facility] ONC [id number] 03/24/2015 11:52:00 015 15:30:00 DIS Outpatient PAM MCCARTHY DO Via [facility] DIARRHEA [id number] 03/17/2015 07:15:00 23:59:59 CLS Outpatient MCCARTHYIRVING REID PAM D [facility] PREOP DIARRHEA [id number] 03/01/2015 09:18:00 23:59:59 CLS Outpatient YANCY BONILLA, JEANETTE dao [facility] RAD LUNG MASS,SCREENING [id number] 02/01/2015 10:44:00 23:59:59 CLS Outpatient ALBANIA MAY MD [facility] RAD HX OF RENAL CELL CA [id number] 02/08/2020 08:00:00 P EN Preadmit MOLLY BONILLA, JERMAINE Wright [facility] CATH ABN STRESS TEST,CP,HTN [id number] 02/05/2011 20:45:00 Document Registration [id number] 02/24/2010 23:08:00 Document Registration [id number] 12/07/2016 08:06:00 Document Registration [id number] 05/01/2017 08:41:00 Document Registration [id number] 01/25/2020 08:00:00 01/25/2020 23:59: 59 CLS Outpatient ALBANIA MAY MD [facility] [id number] 01/19/2020 14:00:00 Document Registration [id number] 01/19/2020 13:06:00 Document Registration [id number] 12/26/2018 12:00:00 Document Registration [id number] 09/22/2018 10:20:00 Document Registration [id number] 07/10/2018 11:00:00 Document Registration [id number] 06/13/2018 12:40:00 Document Registration [id number] 04/30/2017 12:00:00 Document Registration [id number] 04/02/2017 09:20:00 Document Registration [id number] 10/29/2014 13:08:00 10/29/2014 23:59: 59 CLS Outpatient ALBANIA MAY MD [id number] 10/08/2014 10:21:00 10/08/2014 23:59: 59 CLS Outpatient ALBANIA MAY MD
[2020-02-08 07:30] LABS: BILIRUBIN,URINE NEGATIVE (NEGATIVE); CLARITY,URINE CLEAR; COLOR,URINE YELLOW; GLUCOSE, URINE (UA) NEGATIVE (NEGATIVE); KETONES,URINE NEGATIVE (NEGATIVE); LEUKOCYTE ESTERASE ,URINE NEGATIVE (NEGATIVE); NITRITE,URINE NEGATIVE (NEGATIVE); PROTEIN,URINE NEGATIVE (NEGATIVE)
[2020-02-08 07:30] LABS: HEMOGLOBIN 13.3 G/DL (11.5-16.0); RED CELL DISTRIBUTION WIDTH 13.8 % (10.0-14.5)
[2020-02-08 07:41] LABS: INR 0.9 (0.8-1.4); PROTHROMBIN TIME PATIENT 12.6 SEC (12.2-14.7)
[2020-02-08 07:45] LABS: BACTERIA,URINE TRACE /HPF; RBC,URINE RARE /HPF
[2020-02-08] MEDS ORDERED: RT-ALBUINH INH (07:45)
[2020-02-08] MEDS ORDERED: FAMO20TA3 PO (07:45)
[2020-02-08] MEDS ORDERED: BUPR150T9 PO (07:45)
[2020-02-08] MEDS ORDERED: UMEC62.5 IH (07:45)
[2020-02-08] MEDS ORDERED: TIZA2CAP9 PO (07:45)
[2020-02-08] MEDS ORDERED: BUPR300T43 PO (07:45)
[2020-02-08] MEDS ORDERED: ZOLP10TA PO (07:45)
[2020-02-08] MEDS ORDERED: HYDR-83 PO (07:45)
[2020-02-08 07:51] LABS: ALBUMIN 4.5 GM/DL (3.2-4.5); BILIRUBIN,TOTAL 0.4 MG/DL (0.1-1.0); CALCIUM 8.9 MG/DL (8.5-10.1); CREATININE SERUM 0.95 MG/DL (0.60-1.30); POTASSIUM 3.6 MMOL/L (3.6-5.0); TOTAL PROTEIN 7.4 GM/DL (6.4-8.2)
--- NOTE | 2020-02-08 07:53 | Diagnostic Imaging Report ---
PATIENT HISTORY: ABN STRESS,CP,HTN. TECHNIQUE: Single frontal view of the chest. COMPARISON: 02/05/2011 FINDINGS: The lung volumes are normal. No focal consolidation is seen. Haziness in the lung bases is thought to be due to overlying soft tissue. No large pleural effusion or pneumothorax is seen. The cardiomediastinal silhouette is normal in size and contour. No acute osseous abnormality is seen. IMPRESSION: No acute pulmonary abnormality seen. Dictated by: Dictated on workstation # [id number]
[2020-02-08] MEDS ORDERED: HEParin 1000 UNIT/ML (10ML VIAL) FOR BOLUS ONE (08:08)
[2020-02-08] MEDS ORDERED: fentaNYL INJECTION 100 MCG/2 ML AMP ONE (08:08)
[2020-02-08] MEDS ORDERED: VERAPAMIL 5 MG/2 ML (CALAN) VIAL IV ONE (08:08)
[2020-02-08] MEDS ORDERED: MIDAZOLAM 5 MG/5 ML (VERSED) VIAL ONE (08:08)
[2020-02-08] MEDS ORDERED: NITRO DRIP 25000 MCG/D5W 250 ML IV ONE (08:09)
--- NOTE | 2020-02-08 08:44 | Cardiac Procedure Note-CS/ASA ---
Pre-Procedure Note Pre-Op Procedure Note H&P Reviewed The H&P was reviewed, patient examined and no changes noted. Date H&P Reviewed: Feb 08, 2020 Time H&P Reviewed: 08:44 Conscious Sedation Pre-Proced Time 08:44 ASA Score 3 For ASA 3 and 4: Consider anesthesia and medical clearance. Also, for patients with a history of failed moderate sedation consider anesthesia. Airway Lungs Heart ASA score ASA 1: a normal healthy patient ASA 2: a patient with a mild systemic disease (mid diabetes, controlled hypertension, obesity x ASA 3: a patient with a severe systemic disease that limits activity (angina, COPD, prior Myocardial infarction) ASA 4: a patient with an incapacitating disease that is a constant threat to life (CHF, renal failure) ASA 5: a moribund patient not expected to survive 24 hrs. (ruptured aneurysm) ASA 6: a declared brain- patient whose organs are being harvested. For emergent operations, add the letter E after the classification Mallampati Classification Grade 3 Sedation Plan Analgesia, Amnesia, Plan communicated to team members, Discussed options with patient/fam, Discussed risks with patient/fam The patient is an appropriate candidate to undergo the planned procedure, sedation, and anesthesia. The patient immediately re-assessed prior to indication. JERMAINE BARNES MD Feb 08, 2020 08:44
[2020-02-08] MEDS ORDERED: ASPI-983 PO (09:15)
--- NOTE | 2020-02-08 09:16 | Discharge Inst-Post CATH ---
Discharge Inst-CATH/EP Problems Reviewed?: Yes Post Cardiac Cath/EP D/C Inst Follow Up/Plan Appointment with Dr. Burnett's office in 4 weeks <b>CARDIAC CATH/EP PROCEDURE DISCHARGE INSTRUCTIONS</b> ACTIVITY * Go Home directly and rest. * Limit activity of the leg (or wrist if it was used) for 7 days including aerobics, swimming, jogging, bicycling, etc. * Restrict stair-climbing for 7 days if possible, if not, climb up with your non-cath leg, then bring together on the same step. * Avoid lifting, pushing, pulling or excessive movement of the affected extremity for 7 days. * Customary sexual activity may be resumed after 2 days-use caution not to use a position that strains or causes pain to the affected extremity. * No driving for 24 hours. * NO SMOKING. * Avoid straining for bowel movements for 7 days. * Gentle walking on level ground is allowed. * Returning to work will depend on the type of procedure and the results. Your doctor will discuss this with you. CALL YOUR DOCTOR FOR ANY OF THE FOLLOWING: *If bleeding from the puncture site occurs- Apply gentle pressure to site with clean cloth and call your doctor or EMS. * If a knot or lump forms under the skin, increases in size, or causes pain. * If bruising appears to be worsening or moving further down your leg instead of disappearing. * Temperature above 101 F. CARE OF YOUR GROIN INCISION; * Bruising or purple discoloration of the skin near the puncture site is common. * You may shower only, no bathtub bathing for 5 days. Be careful to avoid slipping as your leg may feel stiff. * If a closure device was used on your femoral artery, please see the attached guide regarding care of the device and your leg. * Leave dressing on FOR 24 hours. CARE OF YOUR WRIST INCISION; * Bruising or purple discoloration of the skin near the puncture site is common. * You may shower. * DO NOT submerge wrist. * Leave dressing on FOR 24 hours. JERMAINE BURNETT MD Feb 08, 2020 09:16
--- NOTE | 2020-02-08 09:20 | Cardiac Cath Report ---
Cardiac Cath Report Physician (s)/Field Crop Farm Worker (s) Physician JERMAINE BARNES MD Pre-Procedure Diagnosis Pre-Procedure Diagnosis: Coronary artery disease Post-Procedure Note Procedure Start Date: Feb 08, 2020 Name of Procedure: Left heart catheterization Findings/Procedure Note PROCEDURE NOTE: 64-year-old lady with history of hypertension, hyperlipidemia, had an abnormal stress test with anterior wall ischemia. Scheduled for cardiac catheterization possible PTCA. After explaining the procedure to the patient, all pros and cons were explained, all questions were answered. The patient signed the consent and then she was placed on the cardiac catheterization laboratory. Groin was prepped SL fashion local anesthesia was used. Sheath placed in the right radial artery. [place] catheter was used advanced to the left ventricular cavity, pressure was measured, pullback LV to aorta was done, no left ventriculogram was done, advanced to the left coronary system and Jigar was done that it was turned to the right coronary system and angiogram was done. At the end of the procedure the sheath was removed. Vascular band was used FINDINGS: Hemodynamics LV 127/8, end-diastolic pressure of 8 Aorta 106/69 mean of 81 ANATOMY: Left Main is free of obstructive disease Left Anterior Descending is slightly tortuous with mild disease nonobstructive disease Left Circumflex is free of obstructive disease Right Coronary Artery is free of obstructive disease LV Gram was not done, pressure was measured CONCLUSION: 1. Mildly tortuous LAD system with mild disease nonobstructive disease, otherwise no significant obstructive disease 2. Normal left ventricular end-diastolic pressure DISCUSSION AND RECOMMENDATION: Medical therapy is recommended no intervention is warranted Anesthesia Type: Conscious Sedation Estimated blood loss (mL): 10 ml Contrast Amount: 31 ml Total Radiation Dose: 407 mGy Post-Procedure Diagnosis Post-operative diagnosis: Chest pain Coronary artery disease Hypertension Hyperlipidemia JERMAINE BARNES MD Feb 08, 2020 09:20
--- NOTE | 2020-02-08 09:25 | NUR ---
PT O2 SAT 92% ON ROOM AIR, HAS HX SLEEP APNEA. O2 AT 2L/NC ADDED. SAT UP TO 94%
== END 2020-02-08 12:08 | disposition home or self-care (01) ==
LOC: CATH 07:00 → SDC 09:25 → CATH 12:08
PROVIDERS: ATTEND Internal Medicine Cardiovascular Disease
DX: I25.10 Atherosclerotic heart disease of native coronary artery without angina pectoris (principal); I10 Essential (primary) hypertension; R94.39 Abnormal result of other cardiovascular function study; E78.2 Mixed hyperlipidemia; J44.9 Chronic obstructive pulmonary disease, unspecified; G47.33 Obstructive sleep apnea (adult) (pediatric); M19.90 Unspecified osteoarthritis, unspecified site; E66.01 Morbid (severe) obesity due to excess calories; Z68.43 Body mass index [BMI] 50.0-59.9, adult; Z79.899 Other long term (current) drug therapy; Z91.048 Other nonmedicinal substance allergy status; Z90.710 Acquired absence of both cervix and uterus; Z87.891 Personal history of nicotine dependence; Z85.528 Personal history of other malignant neoplasm of kidney; Z80.51 Family history of malignant neoplasm of kidney; Z83.3 Family history of diabetes mellitus; Z82.3 Family history of stroke
CPT/HCPCS: 36415; 71045; 80053; 80061; 81000; 85027; 85610; 85730; 87081; 87088; 93458

== ENCOUNTER 2020-03-25 05:41 | Outpatient (RCR) | payer MEDICARE ==
[~2020-03-25] VITALS: Ht 157 cm; Wt 139.0 kg
[~2020-03-25 05:41] MED LIST changes: +ARIP5TAB12 PO; +ASPI-983 PO; +BUPR300T43 PO; +DULO60CA6 PO; +FAMO20TA3 PO; +HYDR-3812 PO; +RT-ALBUINH INH; +UMEC62.5 IH; +ZOLP10TA PO
[2020-03-29] MEDS ORDERED: PANT40TA2 PO (12:31)
== END 2020-03-25 11:34 | disposition home or self-care (01) ==
LOC: PREOP 05:41
PROVIDERS: ATTEND Surgery
DX: Z01.812 Encounter for preprocedural laboratory examination (principal); Z20.828 Contact with and (suspected) exposure to other viral communicable diseases
CPT/HCPCS: 87635

== ENCOUNTER 2020-03-29 11:20 | Day surgery (SDC) | payer MEDICARE ==
[~2020-03-29] VITALS: Ht 157 cm; Wt 137.0 kg
[~2020-03-29 11:20] MED LIST changes: +LACTATED RINGERS 1,000 ML IV ONE
[2020-03-29] MEDS ORDERED: LACTATED RINGERS 1,000 ML IV STA (11:21)
[2020-03-29] MEDS ORDERED: HURRICAINE EXT TUBE (BENZOCAINE) XX PRN (11:30)
[2020-03-29 11:38] VITALS: BP 127/68
[2020-03-29] MEDS ORDERED: MIDAZOLAM 2 MG/2 ML (VERSED) VIAL ONE (11:38)
[2020-03-29] MEDS ORDERED: PROPOFOL INJECTION 50 ML IV ONE (11:38)
--- NOTE | 2020-03-29 11:44 | Progress Note-Pre Operative ---
Pre-Operative Progress Note H&P Reviewed The H&P was reviewed, patient examined and no changes noted. Date Seen by Provider: Mar 29, 2020 Time Seen by Provider: 11:43 Date H&P Reviewed: Mar 29, 2020 Time H&P Reviewed: 11:44 Pre-Operative Diagnosis: epigastric abd pain, gerd, screening colonoscopy PAM MCCARTHY DO Mar 29, 2020 11:44
[2020-03-29 12:20] VITALS: BP 114/80
[2020-03-29 12:25] VITALS: BP 124/80
--- NOTE | 2020-03-29 12:29 | Progress Note-Post Operative ---
Post-Operative Progess Note Surgeon (s)/Informatica Mdm Developer (s) Surgeon PAM MCCARTHY DO Informatica Mdm Developer: na Pre-Operative Diagnosis epigastric abd pain, gerd, screening colonoscopy Post-Operative Diagnosis healing ulcers of the antrum, descending colon polyps Procedure & Operative Findings Date of Procedure 03/29/20 Procedure Performed/Findings EGD with biopsies, colonoscopy with hot biopsy polypectomy x2 Anesthesia Type per NURSING OFFICER Estimated Blood Loss Estimated blood loss (mL): none Specimens/Packing Specimens Removed biopsy of healing ulcer, antrum, GE, and descending colon polyp x2 PAM MCCARTHY DO Mar 29, 2020 12:29
[2020-03-29 12:30] VITALS: BP 124/80
[2020-03-29] MEDS ORDERED: PANT40TA2 PO (12:31)
--- NOTE | 2020-03-29 12:32 | Discharge Inst-Simple/Standard ---
Discharge Inst-Standard Discharge Medications New, Converted or Re-Newed RX: Transmitted to Pharmacy Patient Instructions/Follow Up Plan of Care/Instructions/FU: Korina 3 weeks Activity as Tolerated: Yes Discharge Diet: Regular Diet PAM MCCARTHY DO Mar 29, 2020 12:32
[2020-03-29 12:56] VITALS: BP 126/73
--- NOTE | 2020-03-29 13:59 | Anesthesia-General Post-Op ---
MAC Patient Condition Mental Status/LOC: Same as Preop Cardiovascular: Satisfactory Nausea/Vomiting: Absent Respiratory: Satisfactory Pain: Controlled Complications: Absent Post Op Complications Complications None Follow Up Care/Instructions Patient Instructions None needed. Anesthesiology Discharge Order Discharge Order Patient is doing well, no complaints, stable vital signs, no apparent adverse anesthesia problems. No complications reported per nursing. CALVIN LOMELI CRNA Mar 29, 2020 13:59
--- NOTE | 2020-03-29 14:16 | OPERATIVE REPORT ---
DATE OF SERVICE: 03/29/2020 PREOPERATIVE DIAGNOSES: Epigastric abdominal pain, gastroesophageal reflux disease, screening colonoscopy. POSTOPERATIVE DIAGNOSES: Healing ulcer of the antrum, descending colon polyps x2. SURGEON: Pam Hui DO ANESTHESIA: Per DIRECTOR BUSINESS TRAVEL. ESTIMATED BLOOD LOSS: None. PROCEDURE: EGD with biopsies, colonoscopy with hot biopsy polypectomy x2. INDICATIONS: The patient is a 64-year-old female having epigastric abdominal pain and GERD symptoms. She also needs screening colonoscopy. She understands risks and benefits of procedure and wished to proceed with procedure. Consent was signed in the chart. DESCRIPTION OF PROCEDURE: The patient was taken to the endoscopy suite, placed in left lateral recumbent position. Timeout was performed. Scope was inserted in mouth, down the esophagus, stomach and into the duodenum without difficulty. There were no polyps, masses or ulcerations within the duodenum. Scope was slowly retracted back into the stomach where it was further insufflated. Several small areas that appear to be healing ulcers, biopsy was obtained. Biopsy of the antrum was obtained as well. Scope was retroflexed noting no other pathology. Scope was returned to its normal position, slowly withdrawn to distal esophagus, which had no polyps, masses or ulcerations. Biopsy of GE junction was obtained. Scope was then slowly retracted back until completely removed noting no other pathology. Digital rectal exam was performed. There were no palpable polyps, masses or ulcerations. Scope was inserted in the rectum and advanced all the way to cecum with minimal difficulty. Prep was adequate with irrigation and suction. Scope was then slowly retracted back. There were no polyps, masses or ulcerations within the cecum, ascending, transverse colon. In the descending colon, there were two small polyps, which hot biopsy polypectomies were performed. Scope was then continuously retracted back to the sigmoid and rectum, noting no other pathology. Scope was retroflexed in the rectum, noting no other pathology. Scope was returned to its normal position, slowly withdrawn until completely removed. The patient tolerated procedure well without any complications. She was taken to recovery room in stable condition. RECOMMENDATIONS: The patient will need repeat colonoscopy in five years due to history of polyps. We will stop the famotidine and add Protonix 40 mg daily to see if any improvement of her symptoms. The patient will follow up in the office in about three weeks for further evaluation, any issues will be seen at that time. If the patient has any symptoms before five years for colonoscopy, the patient should be reevaluated for repeat colonoscopy prior to that. Job ID: [id number] DocumentID: [id number] Dictated Date: 03/29/2020 12:35:25 Women'S Studies Professor Date: 03/29/2020 14:15:57 Dictated By: PAM HUI DO
== END 2020-03-29 12:58 | disposition home or self-care (01) ==
LOC: ENDO 11:20
PROVIDERS: ATTEND Surgery
DX: Z12.11 Encounter for screening for malignant neoplasm of colon (principal); D12.4 Benign neoplasm of descending colon; K25.9 Gastric ulcer, unspecified as acute or chronic, without hemorrhage or perforation; K29.70 Gastritis, unspecified, without bleeding; I10 Essential (primary) hypertension; E78.2 Mixed hyperlipidemia; I65.23 Occlusion and stenosis of bilateral carotid arteries; G47.33 Obstructive sleep apnea (adult) (pediatric); F41.9 Anxiety disorder, unspecified; F32.9 Major depressive disorder, single episode, unspecified; J45.909 Unspecified asthma, uncomplicated; M06.9 Rheumatoid arthritis, unspecified; Z79.02 Long term (current) use of antithrombotics/antiplatelets; Z85.528 Personal history of other malignant neoplasm of kidney; Z99.81 Dependence on supplemental oxygen; Z87.891 Personal history of nicotine dependence; Z87.19 Personal history of other diseases of the digestive system; Z79.82 Long term (current) use of aspirin

== ENCOUNTER → 2020-11-11 | Outpatient (CLI) | payer MEDICARE ==
[~2020-11-11] MED LIST changes: +ASPI-1238 PO; -ASPI-983 PO; +HOLD METFORMIN - RECEIVED CONTRAST 20 ML VIAL IV SCH; -HYDR-3812 PO; +IOHEXOL 350 MG/ML 100 ML (OMNIPAQUE 350) VIAL IV ONE; -LACTATED RINGERS 1,000 ML IV ONE; +MIRT-94 PO; -MIRT30TA PO; +NS 100 ML (IVPB) BAG IV ONE
[2020-11-11 11:09] LABS: ALBUMIN 4.3 GM/DL (3.2-4.5); BILIRUBIN,TOTAL 0.5 MG/DL (0.1-1.0); CALCIUM 9.1 MG/DL (8.5-10.1); CREATININE SERUM 0.98 MG/DL (0.60-1.30); POTASSIUM 3.7 MMOL/L (3.6-5.0); TOTAL PROTEIN 6.9 GM/DL (6.4-8.2)
--- NOTE | 2020-11-11 13:11 | Diagnostic Imaging Report ---
Procedure: CT abdomen with contrast only. Technique: Multiple contiguous axial images were obtained through the abdomen after the administration of intravenous contrast. Auto Exposure Controls were utilized during the CT exam to meet ALARA standards for radiation dose reduction. Date: November 11, 2020. Indication: 65-year-old female, splenic artery aneurysm. Comparison: CT chest, abdomen and pelvis October 30, 2017. Findings: There is minimal dependent atelectasis in the lung bases. The heart is not enlarged. There is no pericardial effusion. The liver is unremarkable in size and contour. There is no identified liver lesion. The main, right, and left portal veins are patent. The gallbladder is unremarkable. There is no intrahepatic or extrahepatic bile duct dilation. The main pancreatic duct is not abnormally dilated. Unremarkable appearance of the pancreatic parenchyma. The spleen is normal in size. The adrenal glands are unremarkable. The right kidney is absent. There is a low-attenuation left renal lesion measuring 13 mm in size on delayed axial image 27 most consistent with a benign cyst. There is no hydronephrosis. The visualized segments of the intestinal tract are not distended. There are atherosclerotic calcifications. There is a splenic artery aneurysm measuring approximately 14 x 14 mm in size. This is unchanged since at least October 30, 2017. There is no identified abnormally enlarged lymph node in the abdomen meeting size criteria for adenopathy. There is no acute bony abnormality. There are degenerative changes of the spine. Impression: 1. Splenic artery aneurysm measuring 14 x 14 mm in size unchanged since October 30, 2017. 2. No acute abnormality in the abdomen. Dictated by: Dictated on workstation # [id number]
== END ==
LOC: RAD 10:35
PROVIDERS: ATTEND Family Medicine
DX: I72.8 Aneurysm of other specified arteries (principal)
CPT/HCPCS: 36415; 74160; 80053

== ENCOUNTER → 2020-12-22 | Outpatient (CLI) | payer MEDICARE ==
[~2020-12-22] MED LIST changes: -HOLD METFORMIN - RECEIVED CONTRAST 20 ML VIAL IV SCH; -IOHEXOL 350 MG/ML 100 ML (OMNIPAQUE 350) VIAL IV ONE; -NS 100 ML (IVPB) BAG IV ONE
--- NOTE | 2020-12-22 08:26 | Diagnostic Imaging Report ---
PROCEDURE: US Gallbladder. TECHNIQUE: Multiple real-time grayscale images were obtained over the right upper quadrant in various projections. INDICATION: Epigastric pain. Liver is normal in size at approximately 16 cm. There is increased echogenicity throughout the liver consistent with hepatic steatosis. No discrete liver mass is identified. The portal vein is patent and shows normal direction of flow. Gallbladder is without stones or sludge. No wall thickening or biliary duct dilatation is seen. The pancreas is mostly obscured by bowel gas. Aorta is nonaneurysmal. IVC is patent. Right kidney is surgically absent. There is no ascites. IMPRESSION: 1. Hepatic steatosis. 2. No evidence of cholelithiasis or acute cholecystitis. 3. Status post right nephrectomy. Dictated by: Dictated on workstation # [id number]
== END ==
LOC: RAD 07:00
PROVIDERS: ATTEND Surgery
DX: K76.0 Fatty (change of) liver, not elsewhere classified (principal); Z90.5 Acquired absence of kidney
CPT/HCPCS: 76705

== ENCOUNTER → 2021-01-05 | Outpatient (CLI) | payer MEDICARE ==
[~2021-01-05] MED LIST changes: +CATHETER FLUSH 10 ML SYR IV PRN
--- NOTE | 2021-01-05 16:17 | Diagnostic Imaging Report ---
INDICATION: Epigastric pain. EXAMINATION: Nuclear medicine hepatobiliary scan. FINDINGS: This study was performed following administration of 5.18 mCi of Choletec. 8 ounces of Ensure was also utilized for the calculation of the ejection fraction. COMPARISON: There is no prior nuclear medicine study available for comparison. FINDINGS: The gallbladder ultrasound exam performed on 12/22/2020 failed to show any sign of cholelithiasis or acute cholecystitis. On this study, there is uptake of the radiotracer by the gallbladder before 30 minutes. This would weigh against the diagnosis of acute cholecystitis. There is also extension of the radiotracer into the small bowel indicating the common bile duct is not obstructed. However, the ejection fraction is only 14.9% (normal greater than 35%). The reason for the diminished ejection fraction is not certain but could be secondary to biliary dyskinesia. IMPRESSION: 1. There is no evidence for acute cholecystitis or for obstruction of the common bile duct. 2. However, the ejection fraction is only 14.9% and well below normal limits. Clinical follow-up is recommended. Dictated by: Dictated on workstation # [id number]
== END ==
LOC: CARD 11:50
PROVIDERS: ATTEND Surgery
DX: R10.13 Epigastric pain (principal)
CPT/HCPCS: 78227

== ENCOUNTER 2021-02-09 05:40 | Outpatient (CLI) | payer MEDICARE ==
[~2021-02-09] VITALS: Ht 157.5 cm; Wt 134.5 kg
[~2021-02-09 05:40] MED LIST changes: -CATHETER FLUSH 10 ML SYR IV PRN; -OMEP40CA27 PO; +OMEP40CA6 PO
[2021-02-10] MEDS ORDERED: PANT40TA52 PO (13:26)
[2021-02-10] MEDS ORDERED: BREX1TAB PO (13:26)
[2021-02-10] MEDS ORDERED: SUCR1TAB PO (13:26)
[2021-02-10] MEDS ORDERED: CYCL10TA9 PO (13:27)
[2021-02-10] MEDS ORDERED: TRZ50T PO (13:27)
== END 2021-02-10 13:46 | disposition home or self-care (01) ==
LOC: PREOP 05:40
PROVIDERS: ATTEND Surgery
DX: Z01.818 Encounter for other preprocedural examination (principal)

== ENCOUNTER 2021-02-16 07:12 | Day surgery (SDC) | payer MEDICARE ==
[2021-02-16] VITALS (11 sets, daily range): BP systolic 104–145; BP diastolic 50–73
[~2021-02-16] VITALS: Ht 157.5 cm; Wt 134.5 kg
[~2021-02-16 07:12] MED LIST changes: +BREX1TAB PO; +PANT40TA52 PO; +SUCR1TAB PO; +TRZ50T PO
[2021-02-16] MEDS ORDERED: ceFAZolin 2 GM IV Premixed 50 ML IV ONE ×2 (07:15→08:00)
[2021-02-16] MEDS ORDERED: ceFAZolin 2 GM IV Premixed 50 ML ONE (07:52)
[2021-02-16] MEDS: LACTATED RINGERS 1,000 ML IV PRN ×2 (07:59→09:47)
--- NOTE | 2021-02-16 08:00 | Progress Note-Pre Operative ---
Pre-Operative Progress Note H&P Reviewed The H&P was reviewed, patient examined and no changes noted. Date Seen by Provider: Feb 16, 2021 Time Seen by Provider: 07:59 Date H&P Reviewed: Feb 16, 2021 Time H&P Reviewed: 07:59 Pre-Operative Diagnosis: biliary dyskinesia PAM MCCARTHY DO Feb 16, 2021 08:00
[2021-02-16] MEDS ORDERED: LIDOCAINE/EPI 1%-1:100,000 (XYLOCAINE) 20ML ONE (08:13)
[2021-02-16] MEDS ORDERED: proPOfol 200 MG/20 ML (DIPRIVAN) VIAL IV ONE (08:52)
[2021-02-16] MEDS ORDERED: MIDAZOLAM 2 MG/2 ML (VERSED) VIAL ONE (08:52)
[2021-02-16] MEDS ORDERED: ROCURONIUM 10 MG/ML 5 ML SYRINGE IV ONE (08:52)
[2021-02-16] MEDS ORDERED: fentaNYL INJ 100 MCG/2 ML AMP ONE (08:52)
[2021-02-16] MEDS ORDERED: LIDOCAINE PF 2% 5 ML (XYLOCAINE) VIAL ONE (08:52)
[2021-02-16] MEDS ORDERED: IOHEXOL 300 MG/ML 30 ML (OMNIPAQUE 300) VIAL IV ONE (09:30)
[2021-02-16] MEDS ORDERED: GLYCOPYRROLATE 0.2 MG/ML (ROBINUL) 2 ML VIAL ONE (09:47)
[2021-02-16] MEDS ORDERED: NEOSTIGMINE 3 MG/3 ML VIAL ONE (09:47)
[2021-02-16] MEDS ORDERED: DESFLURANE (SUPRANE) 15 ML INHAL SOLN ONE (09:50)
[2021-02-16] MEDS ORDERED: SEVOFLURANE (ULTANE) 15 ML INHAL SOLN ONE (09:50)
--- NOTE | 2021-02-16 09:50 | Progress Note-Post Operative ---
Post-Operative Progess Note Surgeon (s)/Credit Operations Processor (s) Surgeon PAM MCCARTHY DO Credit Operations Processor: Dr. Luu to assist in retraction dissection,closure due to morbid obesity Pre-Operative Diagnosis BILIARY DYSKINESIA Post-Operative Diagnosis same Procedure & Operative Findings Date of Procedure 02/16/21 Procedure Performed/Findings PROCEDURE: Laparoscopic cholecystectomy with intraoperative cholangiogram. COMPLICATIONS: None. PROCEDURE: The patient was taken to the operating suite and was prepped and draped in sterile fashion. A surgical pause was performed. Just superior to the umbilicus, a 12 mm incision was made. Dissection was taken down to the fascia, which was then scored and grasped with a Neal and the abdomen was then entered. A 0 Vicryl suture was placed in a [id number] fashion and a Patel trocar was placed and secured. Pneumoperitoneum was achieved. A 5mm trochar place in the subxyphoid and 2 in the right upper quadrant. Adhesions to gallbladder and liver had to be taken down with cautery. The gallbladder was then grasped and elevated. The cystic duct, and cystic artery were then dissected out. Clip was placed on the distal portion of the cystic duct which was then partially transected. An arrow catheter was inserted into the duct. The cholangiogram was then performed. No filing defects and contrast made its way into the duodenum. Catheter removed. Clips were placed on proximal portion of the cystic duct and then the duct was then transected. Clips were placed along the proximal and distal portion of the cystic artery which was then transected. Hook cautery was used to dissect the gallbladder from the gallbladder fossa achieving hemostasis. The gallbladder was placed in an Endobag and removed through the 12 mm trocar site. The abdomen was then reinspected. Copious amounts of irrigation were used to irrigate the abdomen and there were no signs of active bleeding. Hemostasis had been achieved. The 12 mm fascial defect was then closed with 0 Vicryl suture that had been placed in a [id number] fashion. The abdomen was then desufflated, the trocars were removed. The abdomen was then washed and dried. The skin was then closed using 4-0 Monocryl in a subcuticular fashion. The abdomen was washed and dried and Skin Affix was place over incisions. Patient tolerated the procedure well without any complications and was taken to the recovery room in stable condition. Anesthesia Type general Estimated Blood Loss Estimated blood loss (mL): minimal Specimens/Packing Specimens Removed gallbladder PAM MCCARTHY DO Feb 16, 2021 09:50
[2021-02-16] MEDS ORDERED: ACHD5005 PO (09:51)
--- NOTE | 2021-02-16 09:52 | Discharge Inst-Simple/Standard ---
Discharge Inst-Standard Discharge Medications New, Converted or Re-Newed RX: Transmitted to Pharmacy Patient Instructions/Follow Up Plan of Care/Instructions/FU: 2 weeks Korina Activity as Tolerated: No Discharge Diet: Regular Diet Other Inst to Patient Follow up Appt: Make appointment for 2 weeks. Instructions: No lifting greater than 10 pounds. No strenuous activity. May shower in 24 hours, no tub bath or soaking. Use incentive spirometer at home as directed. No Smoking Skin/Wound Care: You have special glue over incision, it will fall off on it's own. Symptoms to Report: Appetite Changes, Extremity Discoloration, Numbness/Tingling, Swelling Increased, Bleeding Excessive, Eyesight Changes, Pain Increased, Urine Color Change, Constipation(Persistent), Fever over 101 degree F, Pain/Pressure in chest, Urinating Difficulty, Cough Up/Vomit Blood, Heart Beat Irreg/Pounding, Pain/Pressure in jaw, Vaginal Bleeding Increase, Cramps in feet or legs, Lightheadedness, Pain/Pressure in shoulder, Diarrhea(Persistent), Memory Changes Suddenly, Questions/Concerns, Weight gain consecutive days, Dizziness/Fainting, Nausea/Vomiting, Shortness of Breath, Weight gain over 2 pounds. If eyes or skin turn yellow notify physician. If questions or concerns contact your physician Or seek help at emergency department. PAM MCCARTHY DO Feb 16, 2021 09:52
[2021-02-16] MEDS ORDERED: ONDANSETRON 4 MG/2 ML (SDV) Z0FRAN ONE (10:06)
--- NOTE | 2021-02-16 10:22 | Diagnostic Imaging Report ---
INDICATION: Cholecystectomy. 7 seconds of actual fluoroscopy time were utilized during intraoperative cholangiography. Images submitted showed opacification of the common hepatic and common bile ducts with no filling defect or stricture. Contrast does freely spill into the duodenum with no extravasation. IMPRESSION: 1. There was no pathological finding revealed at the images submitted from intraoperative cholangiography. 2. 7 seconds of actual fluoroscopy time utilized. Dictated by: Dictated on workstation # [id number]
[2021-02-16] MEDS ORDERED: HYDROcodone/APAP 5 MG/325 MG (LORTAB) TAB PO ONE (11:30)
== END 2021-02-16 12:05 | disposition home or self-care (01) ==
LOC: SDC 07:12
PROVIDERS: ATTEND Surgery
DX: K81.1 Chronic cholecystitis (principal); K82.8 Other specified diseases of gallbladder; I10 Essential (primary) hypertension; J44.9 Chronic obstructive pulmonary disease, unspecified; G47.33 Obstructive sleep apnea (adult) (pediatric); F32.9 Major depressive disorder, single episode, unspecified; K21.9 Gastro-esophageal reflux disease without esophagitis; E66.01 Morbid (severe) obesity due to excess calories; Z68.43 Body mass index [BMI] 50.0-59.9, adult; Z79.899 Other long term (current) drug therapy; Z79.51 Long term (current) use of inhaled steroids; Z87.891 Personal history of nicotine dependence
CPT/HCPCS: 76000; 87081; 88304

== ENCOUNTER 2021-05-19 01:24 | Observation (INO) | payer MEDICARE ==
[~2021-05-19] VITALS: Ht 157.5 cm; Wt 136.1 kg
[2021-05-19] VITALS (12 sets, daily range): BP systolic 92–153; BP diastolic 42–79
[~2021-05-19 01:24] MED LIST changes: -DULO60CA6 PO; +DULO60CA7 PO
[2021-05-19] MEDS ORDERED: FAMOTIDINE 20MG/2ML IV (PEPCID) IV STA (01:41)
[2021-05-19] MEDS ORDERED: LIDOCAINE 2% VISCOUS 15 ML UDC PO ONE (01:45)
[2021-05-19] MEDS ORDERED: LORazepam INJ 2 MG/ML (ATIVAN) VIAL IVP ONE (01:45)
[2021-05-19] MEDS ORDERED: ASPIRIN 81 MG CHEW (CHILDREN'S ASA) PO ONE (01:45)
[2021-05-19] MEDS ORDERED: RT-ALBUTEROL/IPRATROPIUM 3 ML (DUONEB) VIAL INH ONE (01:45)
[2021-05-19] MEDS ORDERED: ANTACID SUSP 30 ML UDC (MYLANTA) PO ONE (01:45)
--- NOTE | 2021-05-19 01:53 | ED Chest Pain ---
General Chief Complaint: Chest Pain Stated Complaint: CP,WEAK Nursing Triage Note: Pt arrives via POV from home with left sided chest pain; onset yesterday afternoon. Source: patient Exam Limitations: no limitations History of Present Illness Date Seen by Provider: May 19, 2021 Time Seen by Provider: 01:40 Initial Comments Patient presents ER by private conveyance from home with chief complaint of left-sided 8 out of 10 chest pain, cough productive of white sputum and shortness of air since about 3:00 yesterday. She would does wear oxygen on her CPAP at night to sleep and has a history of COPD. She quit smoking years ago. She does not have diabetes or hypertension but does take medicines for hyperlipidemia. She denies a history of heart problems. She took hydrocodone which made her sleep but when she woke up she was still having the chest pain so she decided to come in and get checked out. She had subjective fevers and chills tonight. She has not taken any antipyretics except for the hydrocodone with Tylenol. She is not having any nausea vomiting diarrhea. She has a granddaughter who was sick with something but she is not sure what was similar cough symptoms. She does not have significant GERD but she does have significant anxiety and feels more anxious when she is sitting down doing anything. She takes a couple medications for anxiety, duloxetine and Wellbutrin. Allergies and Home Medications Allergies Coded Allergies: No Known Drug Allergies (Verified , 03/22/20) Patient Home Medication List Home Medication List Reviewed: Yes Albuterol Sulfate (Ventolin Hfa) 1 Puff Puff, 2 PUFF INH Q4H PRN for WHEEZING, (Reported) Entered as Reported by: JASVIR BORJA on 02/08/20 0745 Last Action: Reviewed Atenolol (Atenolol) 50 Mg Tablet, 50 MG PO DAILY, (Reported) Entered as Reported by: KAREN GUZMAN on 03/22/20 1353 Last Action: Reviewed Atorvastatin Calcium (Atorvastatin Calcium) 40 Mg Tablet, 40 MG PO HS, (Reported) Entered as Reported by: MOO ALDANA on 12/19/16 1000 Last Action: Reviewed Bupropion HCl (Bupropion Xl) 150 Mg Tab.er.24h, 150 MG PO 1800, (Reported) Entered as Reported by: JEFF NEVAREZ on 10/22/21 1321 Last Action: Reviewed Bupropion HCl (Bupropion Xl) 300 Mg Tab.er.24h, 300 MG PO DAILY, (Reported) Entered as Reported by: JEFF NEVAREZ on 05/19/211320 Last Action: Reviewed Cholecalciferol (Vitamin D3) (Vitamin D3) 25 Mcg Capsule, 25 MCG PO DAILY, (Reported) Entered as Reported by: JEFF NEVAREZ on 05/19/211320 Last Action: Reviewed Duloxetine HCl (Duloxetine HCl) 60 Mg Capsule.dr, 60 MG PO BID, (Reported) Entered as Reported by: JEFF NEVAREZ on 05/19/211320 Last Action: Reviewed Furosemide (Furosemide) 20 Mg Tablet, 20 MG PO DAILY, (Reported) Entered as Reported by: MOO ALDANA on 12/19/16 1000 Last Action: Reviewed Hydrocodone/Acetaminophen (Hydrocodone-Acetamin 5-325 mg) 1 Each Tablet, 1 TAB PO TID PRN for PAIN-MODERATE (5-7), (Reported) Entered as Reported by: JEFF NEVAREZ on 05/19/211324 Last Action: Reviewed Pantoprazole Sodium (Pantoprazole Sodium) 40 Mg Tablet.dr, 40 MG PO HS, (Reported) Entered as Reported by: MOO ALDANA on 02/10/21 132 Last Action: Reviewed Tizanidine HCl (Tizanidine HCl) 2 Mg Tablet, 2 MG PO HS, (Reported) Entered as Reported by: JEFF NEVAREZ on 05/19/211320 Last Action: Reviewed Trazodone HCl (Trazodone HCl) 50 Mg Tablet, 50 MG PO HS, (Reported) Entered as Reported by: MOO ALDANA on 02/10/21 132 Last Action: Reviewed Umeclidinium Comstock (Incruse Ellipta) 62.5 Mcg Blst.w.dev, 1 PUFF IH DAILY, (Reported) Entered as Reported by: JASVIR BORJA on 02/08/20 0745 Last Action: Reviewed Vitamin E Acetate (Vitamin E) 400 Unit Capsule, 400 UNIT PO 1800, (Reported) Entered as Reported by: JEFF NEVAREZ on 05/19/211320 Last Action: Reviewed Zolpidem Tartrate (Ambien) 10 Mg Tablet, 10 MG PO HS, (Reported) Entered as Reported by: JEFF NEVAREZ on 05/19/21 1321 Last Action: Reviewed Discontinued Medications Brexpiprazole (Rexulti) 1 Mg Tablet, 1 MG PO DAILY, (Reported) Discontinued Reason: No Longer Taking Entered as Reported by: MOO ALDANA on 02/10/21 1326 Last Action: Discontinued Bupropion HCl (Wellbutrin Sr) 150 Mg Tablet.er, 150 MG PO DAILY, (Reported) Discontinued Reason: Duplicate Order Entered as Reported by: JASVIR BORJA on 02/08/20 0745 Last Action: Discontinued Bupropion HCl (Wellbutrin Xl) 300 Mg Tab.er.24h, 300 MG PO DAILY, (Reported) Discontinued Reason: Duplicate Order Entered as Reported by: JASVIR BORJA on 02/08/20 0745 Last Action: Discontinued Cyclobenzaprine HCl (Cyclobenzaprine HCl) 10 Mg Tablet, 10 MG PO BID PRN for MUSCLE SPASMS, (Reported) Discontinued Reason: No Longer Taking Entered as Reported by: MOO ALDANA on 02/10/21 1327 Last Action: Discontinued Duloxetine HCl (Cymbalta) 60 Mg Capsule.dr, 60 MG PO BID, (Reported) Discontinued Reason: Duplicate Order Entered as Reported by: KAREN GUZMAN on 03/22/20 1353 Last Action: Discontinued Hydrocodone/Acetaminophen (Hydrocodone-Acetamin 5-325 mg) 1 Each Tablet, 1 EACH PO Q4H PRN for PAIN-MODERATE (5-7) Discontinued Reason: No Longer Taking Prescribed by: PAM MCCARTHY on 02/16/21 0951 Last Action: Discontinued Potassium Chloride (Potassium Chloride) 20 Meq Tablet.er, 20 MEQ PO DAILY, (Reported) Discontinued Reason: No Longer Taking Entered as Reported by: MOO ALDANA on 12/19/16 1000 Last Action: Discontinued Sucralfate (Sucralfate) 1 Gm Tablet, 1 GM PO ACHS, (Reported) Discontinued Reason: Referral/FU Appt-Addtl Entered as Reported by: MOO ALDANA on 02/10/21 1326 Last Action: Discontinued Tizanidine HCl (Tizanidine HCl) 2 Mg Capsule, 2 MG PO DAILY, (Reported) Discontinued Reason: No Longer Taking Entered as Reported by: JASVIR BORJA on 02/08/20 0745 Last Action: Discontinued Review of Systems Review of Systems Constitutional: No chills, No diaphoresis EENTM: No Blurred Vision, No Double Vision Respiratory: Cough, Shortness of Air, SOA With Exertion Cardiovascular: See HPI, Chest Pain Gastrointestinal: Denies Abdominal Pain, Denies Constipated, Denies Diarrhea, Denies Nausea, Denies Poor Fluid Intake Genitourinary: Denies Burning, Denies Discharge Musculoskeletal: No back pain, No joint pain Skin: No change in color, No pruritus, No rash Psychiatric/Neurological: Denies Headache, Denies Numbness, Denies Paresthesia All Other Systems Reviewed Negative Unless Noted: Yes Past Qxlboou-Tefire-Utreng Hx Patient Social History Tobacco Use?: No Smoking Status: Former Smoker Use of E-Cig and/or Vaping dev: No Substance use?: No Alcohol Use?: No Pt feels they are or have been: No Immunizations Up To Date Tetanus Booster (TDap): More than 5yrs Influenza Vaccine Up-to-Date: Yes; Up-to-Date First/Initial COVID19 Vaccinat: 01/2021 COVID19 Vaccine Business Travel Consultant: [facility] Seasonal Allergies Seasonal Allergies: Yes Past Medical History Surgeries: Yes (hiatal hernia, R KIDNEY REMOVED, BREAST BIOPSY, R CTR) Adenoidectomy, Hysterectomy, Tonsillectomy Respiratory: Yes (O2 AT NIGHT) Asthma, Sleep Apnea, COPD Currently Using CPAP: Yes (AT NIGHT) Cardiac: Yes High Cholesterol, Hypertension Neurological: No Reproductive Disorders: No Sexually Transmitted Disease: No HIV/AIDS: No Genitourinary: No (hx R kidney removal r/t to ca) Gastrointestinal: Yes (3 spots on liver) Colitis, Chronic Constipation, Hiatal Hernia Musculoskeletal: Yes Arthritis Endocrine: No HEENT: Yes (READING GLASSES) Loss of Vision: Denies Hearing Impairment: Denies Cancer: Yes Kidney Did You Recieve Any Treatments: Yes What Type of Treatment Did You: Surgical Intervention Psychosocial: Yes Anxiety, Depression Integumentary: No Blood Disorders: No Adverse Reaction/Blood Tranf: No (N/A) Physical Exam Vital Signs Vital Signs - First Documented 05/19/21 05/19/21 01:33 01:35 Temp 36.3 Pulse 99 Resp 20 B/P (MAP) 112/42 (65) Pulse Ox 96 O2 Delivery Room Air O2 Flow Rate 2.00 Capillary Refill : Less Than 3 Seconds Height, Weight, BMI Height: 5'2.00" Weight: 276lbs. 0.4oz. 131.566152hh; 54.22 BMI Method: General Appearance: Anxious, Mild Distress HEENT: PERRL/EOMI, Pharynx Normal, Moist Mucous Membranes Neck: Full Range of Motion, Normal Inspection Respiratory: Lungs Clear, No Accessory Muscle Use, Decreased Breath Sounds (Bilateral), Respiratory Distress (Mild with oxygen saturations 91 to 94% on room air and respiratory rate of 24.) Cardiovascular: Regular Rate, Rhythm, Normal Peripheral Pulses Gastrointestinal: Normal Bowel Sounds, No Organomegaly Extremity: Normal Capillary Refill, Normal Inspection, No Pedal Edema Neurologic/Psychiatric: Alert, Oriented x3, Other (Fairly anxious affect, nervo us twitching of her feet) Skin: Normal Color, Warm/Dry Progress/Results/Core Measures Results/Orders Lab Results Laboratory Tests Test 05/19/21 01:40 05/19/21 01:55 05/19/21 02:07 Range/Units White Blood Count 9.3 4.3-11.0 10^3/uL Red Blood Count 4.27 3.80-5.11 10^6/uL Hemoglobin 12.2 11.5-16.0 g/dL Hematocrit 38 35-52 % Mean Corpuscular Volume 89 80-99 fL Mean Corpuscular Hemoglobin 29 25-34 pg Mean Corpuscular Hemoglobin Concent 32 32-36 g/dL Red Cell Distribution Width 14.5 10.0-14.5 % Platelet Count 187 130-400 10^3/uL Mean Platelet Volume 10.2 9.0-12.2 fL Immature Granulocyte % (Auto) 0 % Neutrophils (%) (Auto) 49 42-75 % Lymphocytes (%) (Auto) 39 12-44 % Monocytes (%) (Auto) 9 0-12 % Eosinophils (%) (Auto) 2 0-10 % Basophils (%) (Auto) 0 0-10 % Neutrophils # (Auto) 4.6 1.8-7.8 10^3/uL Lymphocytes # (Auto) 3.6 1.0-4.0 10^3/uL Monocytes # (Auto) 0.8 0.0-1.0 10^3/uL Eosinophils # (Auto) 0.2 0.0-0.3 10^3/uL Basophils # (Auto) 0.0 0.0-0.1 10^3/uL Immature Granulocyte # (Auto) 0.0 0.0-0.1 10^3/uL Prothrombin Time 14.2 12.2-14.7 SEC INR Comment 1.1 0.8-1.4 Activated Partial Thromboplast Time 32 24-35 SEC D-Dimer 0.44 0.00-0.49 UG/ML Sodium Level 139 135-145 MMOL/L Potassium Level 3.4 L 3.6-5.0 MMOL/L Chloride Level 104 98-107 MMOL/L Carbon Dioxide Level 22 21-32 MMOL/L Anion Gap 13 5-14 MMOL/L Blood Urea Nitrogen 14 7-18 MG/DL Creatinine 1.14 0.60-1.30 MG/DL Estimat Glomerular Filtration Rate 48 BUN/Creatinine Ratio 12 Glucose Level 125 H 70-105 MG/DL Calcium Level 9.6 8.5-10.1 MG/DL Corrected Calcium 9.5 8.5-10.1 MG/DL Magnesium Level 1.7 1.6-2.4 MG/DL Total Bilirubin 0.5 0.1-1.0 MG/DL Aspartate Amino Transf (AST/SGOT) 14 5-34 U/L Alanine Aminotransferase (ALT/SGPT) 20 0-55 U/L Alkaline Phosphatase 103 40-136 U/L Myoglobin 52.4 10.0-92.0 NG/ML Troponin I < 0.028 <0.028 NG/ML Total Protein 6.7 6.4-8.2 GM/DL Albumin 4.1 3.2-4.5 GM/DL Lipase 34 8-78 U/L Influenza Type A (RT-PCR) Not Detected Not Detecte Influenza Type B (RT-PCR) Not Detected Not Detecte SARS-CoV-2 RNA (RT-PCR) Not Detected Not Detecte Blood Gas Puncture Site UNKNOWN Blood Gas Patient Temperature 36.3 Arterial Blood pH 7.39 7.37-7.43 Arterial Blood Partial Pressure CO2 43 35-45 MMHG Arterial Blood Partial Pressure O2 87 79-93 MMHG Arterial Blood HCO3 26 23-27 MMOL/L Arterial Blood Total CO2 27.1 21.0-31.0 MMOL/L Arterial Blood Oxygen Saturation 95 94-100 % Arterial Blood Base Excess 1.1 -2.5-2.5 MMOL/L Godwin Test YES-POS Blood Gas Ventilator Setting NO Blood Gas Inspired Oxygen 2L My Orders Orders - ELI APODACA Continuous Ekg Monitoring (05/19/21 01:27) Cbc With Automated Diff (05/19/21 01:41) Magnesium (05/19/21:41) Chest 1 View, Ap/Pa Only (05/19/21:41) Comprehensive Metabolic Panel (05/19/21:41) Myoglobin Serum (05/19/21:41) Protime With Inr (05/19/21:41) Partial Thromboplastin Time (05/19/21:41) O2 (05/19/21:41) Ed Iv/Invasive Line Start (05/19/21:41) Lipase (05/19/21:41) Fibrin Degradation Products (05/19/21:41) Troponin I (05/19/21 01:41) Aspirin Chewable Tablet (Baby Aspirin Ch (05/19/21 01:45) Lidocaine 2% Viscous 15 Ml (Xylocaine Vi (05/19/21 01:45) Antacid Suspension (Mylanta Suspension (05/19/21 01:45) Famotidine Injection (Pepcid Injection) (05/19/21 01:41) Lorazepam Injection (Ativan Injection) (05/19/21 01:45) Arterial Blood Gas (05/19/21 01:44) Albuterol/Ipra Inhalation Soln (Duoneb I (05/19/21 01:45) Svn Small Volume Nebulizer (05/19/21 01:44) Covid 19 Inhouse Test (05/19/21 01:59) Influenza A And B By Pcr (05/19/21 01:59) Medications Given in ED Vital Signs/I&O 05/19/21 05/19/21 05/19/21 05/19/21 01:33 01:35 02:13 02:41 Temp 36.3 Pulse 99 84 Resp 20 20 B/P (MAP) 112/42 (65) 108/60 Pulse Ox 96 97 95 O2 Delivery Room Air Nasal Cannula Nasal Cannula Room Air O2 Flow Rate 2.00 2.00 Blood Pressure Mean: 65 Progress Progress Note #1: Time: 01:51 Progress Note We did offer her some Ativan for her anxiety. Her initial blood pressure is too soft for nitroglycerin so we will give her some aspirin and a GI cocktail. Work-up for coronary disease, COPD, pneumonia. ABG, DuoNeb. Lungs sound clear but diminished bilaterally. Progress Note #2: Time: 02:26 Progress Note Initial blood work is unrevealing. ABG demonstrates chronic COPD. Her oxygen saturations on room air after breathing treatment are 93 to 96% nonlabored breathing. Breath sounds remain much the same, diminished yet clear. We have turned her oxygen off and she is continuing to have nonlabored breathing. Her anxiety is significantly improved after the Ativan. GI cocktail did not help but she states the Ativan did help her chest pain. She now rates it as a 5 out of 10. Her blood pressure has been measuring a low and we have tried different cuffs. Manual reading puts it at about 108/70. Reading on the other arm is similar 106 systolic by the automatic machine. Because of her persistent left-sided chest pain we are going to do an observation with cardiac consultation. Initial ECG Impression Date: May 19, 2021 Initial ECG Impression Time: 01:32 Initial ECG Rate: 80 Initial ECG Rhythm: Normal Sinus Initial ECG Intervals: Normal Initial ECG Impression: Normal Comment Normal sinus rhythm without clinically relevant ST elevation or depression. Diagnostic Imaging Diagonstic Imaging: Xray Plain Films/CT/US/NM/MRI: chest Comments No acute cardiopulmonary processes on a 1 view chest x-ray. [facility]. [place], [place] NAME: DAHIANA MENDEZ [facility] REC#: [id number] PT STATUS: ADM Mai : 1955 PHYSICIAN: LEI APODACA MD ADMIT DATE: 05/19/21 Signed Date of Exam:05/19/21 CHEST 1 VIEW, AP/PA ONLY INDICATION: Chest pain. Upright AP portable chest was obtained and compared to 02/08/2020. Heart size is within normal limits. No mediastinal widening. The lungs are clear. No effusion, infiltrate or pneumothorax. No significant change. IMPRESSION: 1. No acute disease or significant change in the chest. Dictated by: Dictated on workstation # [id number] Dict: 05/19/21628 Trans: 05/19/[address] [facility] [id number] Interpreted by: SORIN NOWAK MD Electronically signed by: SORIN NOWAK MD 05/19/21730 Reviewed: Reviewed by Me Departure Communication (Admissions) Time/Spoke to Admitting Phy: 02:45 Discussed the case with Dr. Badillo and she agrees to observe the patient with consult to cardiology. Time/Spoke to Consulting Phy: 02:45 Discussed the case with Dr. Burnett and he agrees to consult on the case. Impression Primary Impression: Chest pain Qualified Codes: R07.9 - Chest pain, unspecified Additional Impression: Acute coronary syndrome Disposition: ADMITTED INPATIENT Condition: Stable Admissions Decision to Admit Reason: Admit from ER (General) Decision to Admit/Date: May 19, 2021 Time/Decision to Admit Time: 02:40 Departure-Patient Inst. Referrals: ALBANIA MAY MD (PCP/Family) Primary Care Physician ELI APODACA May 19, 2021 01:53
[2021-05-19 01:54] LABS: BASOPHILS % (AUTO) 0 % (0-10); EOSINOPHILS # (AUTO) 0.2 10^3/uL (0.0-0.3); EOSINOPHILS % (AUTO) 2 % (0-10); HEMATOCRIT 38 % (35-52); HEMOGLOBIN 12.2 g/dL (11.5-16.0); LYMPHOCYTES # (AUTO) 3.6 10^3/uL (1.0-4.0); LYMPHOCYTES % (AUTO) 39 % (12-44); MEAN CORPUSCULAR HEMOGLOBIN 29 pg (25-34); MEAN CORPUSCULAR HGB CONC 32 g/dL (32-36); MEAN CORPUSCULAR VOLUME 89 fL (80-99); MEAN PLATELET VOLUME 10.2 fL (9.0-12.2); MONOCYTES # (AUTO) 0.8 10^3/uL (0.0-1.0); MONOCYTES % (AUTO) 9 % (0-12); NEUTROPHILS # (AUTO) 4.6 10^3/uL (1.8-7.8); NEUTROPHILS % (AUTO) 49 % (42-75); PLATELET COUNT 187 10^3/uL (130-400); WHITE BLOOD COUNT 9.3 10^3/uL (4.3-11.0)
[2021-05-19 01:56] LABS: ALBUMIN 4.1 GM/DL (3.2-4.5); POTASSIUM 3.4 MMOL/L (3.6-5.0)
[2021-05-19 01:57] LABS: CALCIUM 9.6 MG/DL (8.5-10.1)
[2021-05-19 01:58] LABS: TOTAL PROTEIN 6.7 GM/DL (6.4-8.2)
[2021-05-19 01:59] LABS: INR 1.1 (0.8-1.4); PROTHROMBIN TIME PATIENT 14.2 SEC (12.2-14.7)
[2021-05-19 02:00] LABS: BILIRUBIN,TOTAL 0.5 MG/DL (0.1-1.0)
[2021-05-19 02:02] LABS: CREATININE SERUM 1.14 MG/DL (0.60-1.30)
[2021-05-19 02:05] LABS: MAGNESIUM 1.7 MG/DL (1.6-2.4)
[2021-05-19 02:12] LABS: ABG BASE EXCESS 1.1 MMOL/L (-2.5-2.5); ABG OXYGEN SATURATION 95 % (94-100); ABG PCO2 43 MMHG (35-45); ABG PH 7.39 (7.37-7.43); ABG PO2 87 MMHG (79-93); ABG TCO2 27.1 MMOL/L (21.0-31.0); ALLENS TEST YES-POS; INSPIRED O2 2L; PATIENT TEMP 36.3; VENTILATOR NO
[2021-05-19] MEDS ORDERED: morphine INJ 10 MG/ML 1ML (SYR OR VIAL) IVP STA (03:02)
[2021-05-19] MEDS ORDERED: NS IV 1000 ML 1,000 ML IV SCH (03:15)
[2021-05-19] MEDS ORDERED: ANTACID SUSP 30 ML UDC (MYLANTA) PO PRN (04:15)
[2021-05-19] MEDS ORDERED: ONDANSETRON 4 MG/2 ML (SDV) Z0FRAN IVP PRN (04:15)
[2021-05-19] MEDS ORDERED: NITROGLYCERIN 0.4 MG SL TABS BTL 25'S SL PRN (04:15)
[2021-05-19] MEDS ORDERED: morphine INJ 4 MG/ML 1 ML (VIAL/SYRINGE) IV PRN (04:15)
[2021-05-19] MEDS ORDERED: LORazepam INJ 2 MG/ML (ATIVAN) VIAL IVP PRN (04:15)
--- NOTE | 2021-05-19 06:32 | Diagnostic Imaging Report ---
INDICATION: Chest pain. Upright AP portable chest was obtained and compared to 02/08/2020. Heart size is within normal limits. No mediastinal widening. The lungs are clear. No effusion, infiltrate or pneumothorax. No significant change. IMPRESSION: 1. No acute disease or significant change in the chest. Dictated by: Dictated on workstation # [id number]
[2021-05-19] MEDS: RT-ALBUTEROL/IPRATROPIUM 3 ML (DUONEB) VIAL INH SCH ×2 (07:23→15:57)
[2021-05-19] MEDS ORDERED: ASPIRIN E.C. 81 MG (ECOTRIN) TAB PO SCH (09:00)
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
[2021-05-19] MEDS ORDERED: BUPR150T24 PO (13:21)
[2021-05-19] MEDS ORDERED: BUPR300T98 PO (13:21)
[2021-05-19] MEDS ORDERED: CHOL10007 PO (13:21)
[2021-05-19] MEDS ORDERED: DULO60CA59 PO (13:21)
[2021-05-19] MEDS ORDERED: ZOLP10TA PO (13:21)
[2021-05-19] MEDS ORDERED: VITA400C64 PO (13:21)
[2021-05-19] MEDS ORDERED: TIZA-169 PO (13:21)
[2021-05-19] MEDS ORDERED: ACHD5005 PO (13:25)
--- NOTE | 2021-05-19 15:34 | Consultation-Cardiology ---
HPI-Cardiology Cardiology Consultation Date of Consultation 05/19/21 Date of Admission Time Seen by Provider: 15:29 Indication: Chest pain HPI 65-year-old lady with history of hypertension, mild coronary artery disease, presented to the ER with left-sided chest pain, numbness in her arm. Has been having cough. Denied any shortness of breath. No palpitation, no syncope, has been having the pain waxing and waning for the past few days. She denied any syncope or near syncopal episodes. No claudication Home Medications & Allergies Allergies: Coded Allergies: No Known Drug Allergies (Verified , 03/22/20) Home Medication List Reviewed: Yes DTX-Lldjjy-Pfmwgb Hx Patient Social History Marital Status: Employed/Student: unemployed Smoking Status: Former Smoker Type Used: Cigarettes 2nd Hand Smoke Exposure: Yes Recent Hopitalizations: No Have you traveled recently?: No Alcohol Use?: No Immunizations Up To Date Tetanus Booster (TDap): More than 5yrs Date of Pneumonia Vaccine: Jul 16, 2012 Date of Influenza Vaccine: Sep 09, 2019 Past Medical History Discussed below Family Medical History Significant Family History: Cancer (brother has leukemia), Diabetes (Mom had T2DM), Stroke (Mom from stroke) Family Medical Hx Noncontributory Review of Systems-General Review of Systems Constitutional: see HPI, malaise, weakness EENTM: see HPI, no symptoms reported Respiratory: see HPI, cough; No dyspnea on exertion, No hemoptysis, No orthopnea; phlegm (reports white phlegm with cough); No short of breath, No stri [place], No wheezing, No other Cardiovascular: see HPI, chest pain; No edema, No Hx of Intervention, No palpit ations, No syncope, No vascular heart diseas, No other Gastrointestinal: diarrhea Genitourinary: no symptoms reported, see HPI Musculoskeletal: see HPI; No back pain, No joint pain Skin: see HPI; No change in color, No pruritus, No rash Psychiatric/Neurological: See HPI, Anxiety, Numbness (L arm) All Other Systems Reviewed Negative Unless Noted: Yes Reviewed Test Results Reviewed Test Results Lab Laboratory Tests Test 05/19/21 01:40 05/19/21 01:55 05/19/21 02:07 05/19/21 04:59 Range/Units White Blood Count 9.3 4.3-11.0 10^3/uL Red Blood Count 4.27 3.80-5.11 10^6/uL Hemoglobin 12.2 11.5-16.0 g/dL Hematocrit 38 35-52 % Mean Corpuscular Volume 89 80-99 fL Mean Corpuscular Hemoglobin 29 25-34 pg Mean Corpuscular Hemoglobin Concent 32 32-36 g/dL Red Cell Distribution Width 14.5 10.0-14.5 % Platelet Count 187 130-400 10^3/uL Mean Platelet Volume 10.2 9.0-12.2 fL Immature Granulocyte % (Auto) 0 % Neutrophils (%) (Auto) 49 42-75 % Lymphocytes (%) (Auto) 39 12-44 % Monocytes (%) (Auto) 9 0-12 % Eosinophils (%) (Auto) 2 0-10 % Basophils (%) (Auto) 0 0-10 % Neutrophils # (Auto) 4.6 1.8-7.8 10^3/uL Lymphocytes # (Auto) 3.6 1.0-4.0 10^3/uL Monocytes # (Auto) 0.8 0.0-1.0 10^3/uL Eosinophils # (Auto) 0.2 0.0-0.3 10^3/uL Basophils # (Auto) 0.0 0.0-0.1 10^3/uL Immature Granulocyte # (Auto) 0.0 0.0-0.1 10^3/uL Prothrombin Time 14.2 12.2-14.7 SEC INR Comment 1.1 0.8-1.4 Activated Partial Thromboplast Time 32 24-35 SEC D-Dimer 0.44 0.00-0.49 UG/ML Sodium Level 139 135-145 MMOL/L Potassium Level 3.4 L 3.6-5.0 MMOL/L Chloride Level 104 98-107 MMOL/L Carbon Dioxide Level 22 21-32 MMOL/L Anion Gap 13 5-14 MMOL/L Blood Urea Nitrogen 14 7-18 MG/DL Creatinine 1.14 0.60-1.30 MG/DL Estimat Glomerular Filtration Rate 48 BUN/Creatinine Ratio 12 Glucose Level 125 H 70-105 MG/DL Calcium Level 9.6 8.5-10.1 MG/DL Corrected Calcium 9.5 8.5-10.1 MG/DL Magnesium Level 1.7 1.6-2.4 MG/DL Total Bilirubin 0.5 0.1-1.0 MG/DL Aspartate Amino Transf (AST/SGOT) 14 5-34 U/L Alanine Aminotransferase (ALT/SGPT) 20 0-55 U/L Alkaline Phosphatase 103 40-136 U/L Myoglobin 52.4 10.0-92.0 NG/ML Troponin I < 0.028 < 0.028 <0.028 NG/ML Total Protein 6.7 6.4-8.2 GM/DL Albumin 4.1 3.2-4.5 GM/DL Lipase 34 8-78 U/L Influenza Type A (RT-PCR) Not Detected Not Detecte Influenza Type B (RT-PCR) Not Detected Not Detecte SARS-CoV-2 RNA (RT-PCR) Not Detected Not Detecte Blood Gas Puncture Site UNKNOWN Blood Gas Patient Temperature 36.3 Arterial Blood pH 7.39 7.37-7.43 Arterial Blood Partial Pressure CO2 43 35-45 MMHG Arterial Blood Partial Pressure O2 87 79-93 MMHG Arterial Blood HCO3 26 23-27 MMOL/L Arterial Blood Total CO2 27.1 21.0-31.0 MMOL/L Arterial Blood Oxygen Saturation 95 94-100 % Arterial Blood Base Excess 1.1 -2.5-2.5 MMOL/L Godwin Test YES-POS Blood Gas Ventilator Setting NO Blood Gas Inspired Oxygen 2L Physical Exam Physical Exam Vital Signs Vital Signs - First Documented 05/19/21 05/19/21 01:33 01:35 Temp 36.3 Pulse 99 Resp 20 B/P (MAP) 112/42 (65) Pulse Ox 96 O2 Delivery Room Air O2 Flow Rate 2.00 Capillary Refill : Less Than 3 Seconds Height, Weight, BMI Height: 5'2.00" Weight: 276lbs. 0.4oz. [id number]; 54.86 BMI Method: General Appearance: No Apparent Distress Eyes: Bilateral Eye Normal Inspection, Bilateral Eye PERRL, Bilateral Eye EOMI HEENT: PERRL/EOMI, Pharynx Normal, Moist Mucous Membranes Neck: Full Range of Motion, Normal Inspection Respiratory: No Accessory Muscle Use, No Respiratory Distress, Decreased Breath Sounds Cardiovascular: Regular Rate, Rhythm Gastrointestinal: Normal Bowel Sounds, No Organomegaly Back: Normal Inspection, No CVA Tenderness, No Vertebral Tenderness Extremity: No Pedal Edema Neurologic/Psychiatric: Alert, Oriented x3, Normal Mood/Affect Skin: Normal Color Lymphatic: No Adenopathy A/P-Cardiology Admission Diagnosis Chest pain Coronary artery disease Shortness of breath Hypertension Assessment/Plan Chest pain, unlikely to be cardiac. The pain is reproducible by palpating the left upper side of her chest and with her turning to the left side. Cardiac enzymes are negative, EKG did not show any acute changes. Coronary artery disease, mild disease per cardiac catheterization done in January 2020. Continue to monitor Shortness of breath, cough, white count are normal, chest x-ray did not show any acute abnormality, managed by primary care team Hypertension, restart home medication monitor blood pressure Hyperlipidemia, monitor lipids Okay for discharge from cardiology standpoint and follow-up as an outpatient Clinical Quality Measures AMI/AHF: ASA po Prior to arrival: JERMAINE Navarrete MD May 19, 2021 15:34
--- NOTE | 2021-05-25 09:40 | Physician Query-Final Dx ---
MERLIN ZHOU 05/25/21 0940: Final Diagnosis Give Final Diagnosis Please give Final Diagnosis DES GRISSOM DO 05/25/21 1025: Final Diagnosis Give Final Diagnosis chest pain of unknown source MERLIN ZHOU May 25, 2021 09:40 DES GRISSOM DO May 25, 2021 10:25
== END 2021-05-19 17:23 | disposition home or self-care (01) ==
LOC: EDUNIT# 01:24 → ER 01:29 → UNDOADMOB 02:50 → 4TH 02:50 → UNDODISOB 18:30
PROVIDERS: ADMIT Internal Medicine; ATTEND Internal Medicine
DX: R07.89 Other chest pain (principal); I10 Essential (primary) hypertension; I25.10 Atherosclerotic heart disease of native coronary artery without angina pectoris; E78.5 Hyperlipidemia, unspecified; R05.9 Cough, unspecified; J44.9 Chronic obstructive pulmonary disease, unspecified; M19.90 Unspecified osteoarthritis, unspecified site; G47.30 Sleep apnea, unspecified; E78.00 Pure hypercholesterolemia, unspecified; K21.9 Gastro-esophageal reflux disease without esophagitis; K59.09 Other constipation; G89.29 Other chronic pain; G47.33 Obstructive sleep apnea (adult) (pediatric); F32.9 Major depressive disorder, single episode, unspecified; F41.9 Anxiety disorder, unspecified; Z99.89 Dependence on other enabling machines and devices; Z90.89 Acquired absence of other organs; Z87.891 Personal history of nicotine dependence; Z79.891 Long term (current) use of opiate analgesic; Z79.899 Other long term (current) drug therapy; Z90.710 Acquired absence of both cervix and uterus; Z80.6 Family history of leukemia; Z82.3 Family history of stroke; Z83.3 Family history of diabetes mellitus
CPT/HCPCS: 36415; 71045; 80053; 82805; 83690; 83735; 83874; 84484; 85025; 85379; 85610; 85730; 87636; 93005; 94640; 94760; 96374; 96375; G0378

== ENCOUNTER → 2022-08-14 | Outpatient (CLI) | payer MEDICARE, OTHER ==
[~2022-08-14] MED LIST changes: +BUPR150T24 PO; +CHOL10007 PO; +CYCL10TA25 PO; -DICL100G27 TP; +DICL100G32 TP; +DULO60CA59 PO; +TIZA-169 PO; +VITA400C64 PO
--- NOTE | 2022-08-14 17:34 | Diagnostic Imaging Report ---
INDICATION: Postmenopausal female. COMPARISON: None. FINDINGS: AP Spine L1-L4: [BMD (g/cm2): 1.059] [T-Score: -1.2] [Z-Score: -0.7] [BMD Previous: NA] [BMD % Change: NA] LT Hip Neck: [BMD (g/cm2): 0.90] [T-Score: -0.8] [Z-Score: -0.1] LT Hip Total: [BMD (g/cm2):0.951] [T-Score:-0.4] [Z-Score: 0.0] [BMD Previous: NA] [BMD % Change: NA] RT Hip Neck: [BMD (g/cm2):0.853] [T-Score:-1.3] [Z-Score:-0.6] RT Hip Total: [BMD (g/cm2):0.943] [T-score:-0.5] [Z-Score:-0.1] [BMD Previous:NA] [BMD % Change:NA] *Indicates significant change from prior examination based on 95% confidence level. World Health Organization criteria for BMD interpretation classify patients as Normal (T-score at or above -1.0), Osteopenic (T-score between -1.0 and -2.5) or Osteoporotic (T-score at or below -2.5). LIMITATIONS AND MODIFICATION: Degenerative changes in the lumbar spine may falsely elevate bone density. FRACTURE RISK (FRAX SCORE): The ten year probability of (%): Major Osteoporotic Fracture: [7.0] Hip Fracture: [0.6] IMPRESSION: 1. Osteopenia (Low bone mass). 2. Baseline examination. 3. See below National Osteoporosis Foundation guidelines on when to potentially initiate pharmacologic therapy. Based on the National Osteoporosis Foundation Guidelines, pharmacologic treatment should be initiated in any of the following, unless clinical conditions suggest otherwise: * Any patient with prior fragility fracture of the hip or vertebrae. A spine fracture indicates 5X risk for subsequent spine fracture and 2X risk for subsequent hip fracture. * Osteoporosis (T-score <-2.5). * Postmenopausal women and men age 50 and older with low bone mass/osteopenia (T-score between -1.0 and -2.5) by DXA and 10-year major osteoporotic fracture greater than 20% or a 10-year probability of hip fracture greater than 3%. These fracture risks are supplied above in the FRAX score, if applicable. * Clinician judgement and/or patient preferences may indicate treatment for people with 10-year fracture probabilities above or below these levels. Dictated by: Dictated on workstation # [id number]
== END ==
LOC: RAD 13:58
PROVIDERS: ATTEND Family Medicine
DX: M85.80 Other specified disorders of bone density and structure, unspecified site (principal); Z78.0 Asymptomatic menopausal state
CPT/HCPCS: 77080

== ENCOUNTER → 2022-09-17 | Outpatient (CLI) | payer MEDICARE, OTHER | END | disposition home or self-care (01) | LOC: PREOP 05:31 | PROVIDERS: ATTEND Podiatrist Foot & Ankle Surgery | DX: Z01.818 Encounter for other preprocedural examination (principal) ==

== ENCOUNTER 2022-09-24 08:42 | Day surgery (SDC) | payer MEDICARE, OTHER ==
[2022-09-24] VITALS (10 sets, daily range): BP systolic 96–134; BP diastolic 46–70
[~2022-09-24] VITALS: Ht 157.5 cm; Wt 129.5 kg
[~2022-09-24 08:42] MED LIST changes: +ASPI-999 PO; +BIOT1TAB22 PO; +BUPR100T15 PO; +LORA-1358 PO; +SENN1TAB93 PO
[2022-09-24] MEDS ORDERED: MIDAZOLAM 2 MG/2 ML (VERSED) VIAL ONE (09:08)
[2022-09-24] MEDS ORDERED: fentaNYL INJ 100 MCG/2 ML AMP ONE (09:08)
[2022-09-24] MEDS ORDERED: LIDOCAINE PF 2% 5 ML (XYLOCAINE) VIAL ONE (09:09)
[2022-09-24] MEDS ORDERED: proPOfol 200 MG/20 ML (DIPRIVAN) VIAL IV ONE (09:09)
[2022-09-24] MEDS: LACTATED RINGERS 1,000 ML IV PRN ×2 (09:30→12:43)
[2022-09-24] MEDS ORDERED: ceFAZolin INJECTION 1,000 MG in NS (IVPB) 50 ML IV ONE (09:30)
[2022-09-24] MEDS ORDERED: BUPIVACAINE 0.5% 30 ML (SENSORCAINE) VIAL ONE (10:11)
[2022-09-24] MEDS ORDERED: LIDOCAINE 1% INJ 20 ML VIAL ONE (10:11)
[2022-09-24] MEDS ORDERED: ONDANSETRON 4 MG/2 ML (SDV) Z0FRAN ONE (10:34)
[2022-09-24] MEDS ORDERED: SEVOFLURANE (ULTANE) 15 ML INHAL SOLN ONE (13:56)
--- NOTE | 2022-09-24 14:05 | Progress Note-Post Operative ---
Post-Operative Progess Note Surgeon (s)/Health Care Assistant (s) Surgeon MITCHELL RON DPM Health Care Assistant: none Pre-Operative Diagnosis HALLUX VALGUS, HYPERTROPHIC SECOND METATARSAL, SECOND HAMMERTOE, LEFT FOOT Post-Operative Diagnosis same Procedure & Operative Findings Date of Procedure 09/24/22 Procedure Performed/Findings Lapidus-Min Bunionectomy, 2nd metatarsal osteotomy, reduction of 2nd hammertoe, left foot Anesthesia Type General Estimated Blood Loss Estimated blood loss (mL): Minimal Specimens/Packing Specimens Removed none MITCHELL RON DPM Sep 24, 2022 14:05
[2022-09-24] MEDS ORDERED: CEPH500C PO (14:07)
[2022-09-24] MEDS ORDERED: ACHD5005 PO (14:07)
--- NOTE | 2022-09-24 14:12 | Anesthesia-General Post-Op ---
General Patient Condition Mental Status/LOC: Same as Preop Cardiovascular: Satisfactory Nausea/Vomiting: Absent Respiratory: Satisfactory Pain: Controlled Complications: Absent Post Op Complications Complications None Follow Up Care/Instructions Patient Instructions None needed. Anesthesia/Patient Condition Patient Condition Patient is doing well, no complaints, stable vital signs, no apparent adverse anesthesia problems. No complications reported per nursing. ELVIRA SAVAGE CRNA Sep 24, 2022 14:12
[2022-09-24] MEDS ORDERED: LACTATED RINGERS 1,000 ML IV SCH (14:15)
[2022-09-24] MEDS ORDERED: HYDROmorphone 2 MG/ML VIAL (DILAUDID) IV ONE (14:15)
[2022-09-24] MEDS ORDERED: morphine INJ 10 MG/ML 1ML (SYR OR VIAL) IVP ONE (14:15)
[2022-09-24] MEDS ORDERED: HYDROcodone/APAP 5 MG/325 MG (LORTAB) TAB PO PRN (14:15)
[2022-09-24] MEDS ORDERED: ONDANSETRON 4 MG/2 ML (SDV) Z0FRAN IVP PRN (14:15)
[2022-09-24] MEDS ORDERED: morphine INJ 10 MG/ML 1ML (SYR OR VIAL) ONE (14:20)
--- NOTE | 2022-09-24 15:13 | Diagnostic Imaging Report ---
EXAMINATION: Left foot radiographs, 2 views. COMPARISON: None. HISTORY: 67-year-old female, postoperative evaluation of the left foot. History of left foot pain. FINDINGS: There is a fixation pin at the level of the second digit phalanges with postoperative changes of the distal aspect of the second proximal phalanx. There is a fixation screw in the second metatarsal head with probable osteotomy of the second metatarsal at its distal aspect. There is a fixation wire at the level of the first proximal phalanx. There is sideplate and screw fixation hardware at the level of the first tarsometatarsal articulation. The hardware appears intact. The dorsal soft tissue swelling at the level of the metatarsals. There is no identified acute fracture. There is no cortical or aggressive bone destruction. There is no tibiotalar joint effusion. There is very mild osteoarthritis of the first metatarsophalangeal joint. IMPRESSION: 1. Intact hardware at the level of the left foot as described above without apparent complication. 2. No identified acute bony abnormality. 3. 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 Dictated by: Dictated on workstation # [id number]
--- NOTE | 2022-09-24 15:56 | Physical Therapy Ortho Eval ---
PT Orthopedic Evaluation Type of Surgery Prior Level of Function Current Living Status: Spouse Locomotion (Upon Admit): Straight Cane Knee scooter Subjective Subjective Patient lying supine in bed upon PT arrival, agreeable to treatment. Rates pain at 3-4/10. She reports "We picked up a knee scooter, but I've never used it." Entry Into Home: Stairs Without Railing Steps Into Home: 1 ROM ROM: WFL, except focal deficit Strength Strength: Gen Weak,No Focal Deficit Transfer SCALE: Activities may be completed with or without assistive devices. 0-Qwglftxmpz-tsnfzwp completes the activity by him/herself with no assistance from a helper. 5-Set-up or Clean-up Assistance-helper sets up or cleans up; patient completes activity. [place] assists only prior to or following the activity. 4-Supervision or Touching Assistance-helper provides verbal cues and/or touching/steadying and/or contact guard assistance as patient completes activity. Assistance may be provided throughout the activity or intermittently. 3-Partial/Moderate Assistance-helper does LESS THAN HALF the effort. [place] lifts, holds or supports trunk or limbs, but provides less than half the effort. 2-Substantial/Maximal Assistance-helper does MORE THAN HALF the effort. [place] lifts or holds trunk or limbs and provides more than half the effort. 1-Ricxmuuvy-raqujy does ALL the effort. Patient does none of the effort to complete the activity. Or, the assistance of 2 or more helpers is required for the patient to complete the activity. If activity was not attempted, code reason: 7-Patient Refused. 9-Not Applicable-not attempted and the patient did not perform the activity before the current illness, exacerbation or injury. 10-Not Attempted due to Environmental Limitations-(lack of equipment, weather restraints, etc.). 88-Not Attempted due to Medical Conditions or Safety Concerns. Transfers (B, C, W/C) (QC): 4 Gait Gait Assistive Device: FWW Right Lower Extremity: Right Weight Bearing Status RLE: Full Weight Bearing Left Lower Extremity: Left Weight Bearing Status LLE: Non Weight Bearing Gait (QC): 3 Distance: 20 feet Stairs #of Steps: 1 Walking Assistive Device: Walker Patient unsafe while performing step. She placed significant amount of weight through her left LE despite verbal cues for NWB prior to, and during gait training. Patient was advised to not place any weight through her left LE, however stating she was unable to do so was advised to only place weight through heel with surgical shoe donned. was advised to have two people present when assisting patient into the house. Treatment Rendered Treatment: Gait Train Assessment/Goals Goal Time Frame: 1 Visit Safe Ambulation: No Patient unsafe while performing step. She placed significant amount of weight through her left LE despite verbal cues for NWB prior to, and during gait training. Patient was advised to not place any weight through her left LE, however stating she was unable to do so was advised to only place weight through heel with surgical shoe donned. Time Time In: 153 Time Out: 1545 Total Billed Treatment Time: 13 Billed Treatment Time Visit, SORIN CERNA PT Sep 24, 2022 15:56
--- NOTE | 2022-09-24 22:04 | OPERATIVE REPORT ---
DATE OF SERVICE: 09/24/2022 SURGEON: Cat Ron DPM PREOPERATIVE DIAGNOSES: 1. Hallux abductovalgus metatarsal primus varus, left. 2. Hypertrophic second metatarsal, left. 3. Hammer digit syndrome, left second toe. POSTOPERATIVE DIAGNOSES: 1. Hallux abductovalgus metatarsal primus varus, left. 2. Hypertrophic second metatarsal, left. 3. Hammer digit syndrome, left second toe. PROCEDURES: 1. Lapidus Min bunionectomy, left. 2. Second metatarsal osteotomy, left. 3. Reduction of hammertoe, second digit, left foot. WOUND CLASS: Clean. ANESTHESIA: General. HEMOSTASIS: Pneumatic thigh tourniquet at 300 mmHg. INDICATIONS: This 67-year-old female presents complaining of a painful left foot. Conservative therapy is met with unsatisfactory results and the patient is agreeable to surgical intervention after risks and complications were discussed at length. No guarantees were extended to the patient and she is willing to proceed. DESCRIPTION OF PROCEDURE: The patient was brought back to the operating table and placed in secure supine position. General anesthetic was then induced. Appropriate timeout was performed. Pneumatic thigh tourniquet was placed on the left lower extremity over several layers of padding. The left foot was then prepped and draped in normal sterile manner. The attention was then directed to the dorsal aspect of the left first metatarsal cuneiform joint where a 4 cm longitudinal linear incision was created. The incision was deepened in the same plane with great care to identify and retract all vital neurovascular structures. Only necessary blood vessels were cauterized as encountered. The incision was deepened down to the capsular tissue medial to the extensor hallucis longus tendon. The capsular tissue was reflected exposing the dorsal and medial aspects of the joint. Next, utilizing a [place] 28 cut guide, the base of the first metatarsal and distal articular cartilage of the medial cuneiform were resected. This was at a bias to reduce the intermetatarsal angle as well as to plantarflex the first metatarsal. A temporary K-wire fixation was then applied to the inferior aspect of the first metatarsal cuneiform joint arthrodesis site. This was done after fenestration was performed to the base of the first metatarsal and distal aspect of the medial cuneiform. Next, utilizing a standard 4-hole Lapidus plate to the medial aspect of the first metatarsal cuneiform joint, excellent bony apposition and fixation was appreciated. The compression screw driven from dorsal distal to plantar proximal was a 4.0 headed cannulated screw of 36 mm of length. The 2 proximal screws to the plate into the cuneiform with 3.5 locking screws, 14 and 18 mm of length. The distal locking screws were 3.5, 14 and 16 mm of length with a nonlocking screw 14 mm of length. Excellent bony apposition and fixation was appreciated and confirmed with intraoperative C-arm. The wound was flushed with copious amounts of normal saline. Closure was performed in layers. Deep closure was performed with 3-0 Vicryl, superficial with 4-0 Vicryl, skin closed with 4-0 Prolene in a horizontal mattress type stitch. Attention was then directed to the dorsal aspect of the left first metatarsophalangeal joint where a 5 cm longitudinal linear incision was created. The incision was deepened down to the capsular tissue and a dorsal capsulorrhaphy was performed. The medial eminence of the first metatarsal head was resected utilizing a power sagittal saw as well as the dorsal eminence to the first metatarsal head. Next, a lateral release was performed into the soft tissue lateral aspect of the first metatarsophalangeal joint. This included release of the conjoined tendon of the adductor hallucis as well as a lateral capsulorrhaphy. It was then noted that a lateral deviation to the hallux was maintained and need to be further corrected. It was then decided that an Min type procedure should be performed. Subperiosteal dissection was carried out to the diaphysis of the proximal phalanx. Wedge bone was resected to the mid diaphysis area with the base medial and the lateral cortices held intact. A 28-gauge monofilament wire was then passed through 2 pilot safety inspector holes securing the osteotomy in a closed position. Excellent bony apposition and fixation was appreciated this time, the wound was flushed with copious amounts of normal saline throughout the procedure. Closure was performed in layers. Deep closure was performed with 3-0 Vicryl, superficial with 4-0 Vicryl and skin closed with 4-0 Prolene in a horizontal mattress type stitch type stitch. Attention was then directed to the dorsal aspect of the left second ray where an incision was created from the surgical neck of the second metatarsal extending distally to the distal interphalangeal joint of the second toe. The incision was deepened in the same plane with great care to identify and retract all vital neurovascular structures. The incision was deepened down to the extensor tendon where Z slide lengthening was performed. The extensor tendon was reflected proximally and the extensor deleon released. A dorsal capsulorrhaphy was performed as well as release of the medial collateral ligaments. This allowed the proximal phalanx to come down into more rectus alignment. Attention was then directed to the second metatarsal head where a [place] type osteotomy was performed. Utilizing a power sagittal saw, a cut began at the dorsal aspect of the articular cartilage of the second metatarsal head extending proximally in the same plane with what would be parallel to the weightbearing surface for the patient. Next, the capital fragment was transtranslocated proximally and medially and was fixated in its corrected position utilizing a snap-off screw of 2.0 diameter and 12 mm in length from dorsal to plantar. Excellent bony apposition fixation was appreciated at this time. The excess bone to the second metatarsal head was reduced with a rongeur. The wound was flushed with copious amounts of normal saline. Attention was then directed to the left second toe where the proximal interphalangeal joint, the head was fashioned into a PEG with a power sagittal saw and power bur and a bur was utilized to create a hole in the base of the middle phalanx for the peg-in-hole type arthrodesis. The wounds were flushed with copious amounts of normal saline. A 0.054 K-wire was driven down the toe securing the arthrodesis site in appropriate alignment. The excess K-wire was cut and protective ball placed over the end of the wire. Closure was then performed in layers. The extensor tendon was repaired in a lengthened position utilizing a 3-0 Vicryl, superficial closure was performed with 4-0 Vicryl and skin closure with 4-0 Prolene in a horizontal mattress type stitch. Postoperative injection consisted of 20 mL of 0.5% Marcaine injected in a local infusion to the surgical site, also 10 mg of dexamethasone into the first intermetatarsal space. It was adjacent to the first metatarsophalangeal joint of the first ray. Postoperative dressing consisted of Betadine-soaked Adaptic, sterile 4 x 4's, sterile Kerlix, all secured with Coban wrap. The patient tolerated the anesthesia and procedure well and was transported from the operating room to the recovery room with vital signs stable and vascular status intact to all digits of the left foot. She is to be nonweightbearing to left lower extremity was given a prescription for Vicodin as well as Keflex. Job ID: [id number] DocumentID: [id number] Dictated Date: 09/24/2022 14:20:18 [employer] Internship Date: 09/24/2022 22:02:00 Dictated By: CAT RON DPM
== END 2022-09-24 16:00 | disposition home or self-care (01) ==
LOC: SDC 08:42
PROVIDERS: ATTEND Podiatrist Foot & Ankle Surgery
DX: M20.32 Hallux varus (acquired), left foot (principal); M20.12 Hallux valgus (acquired), left foot; M89.372 Hypertrophy of bone, left ankle and foot; M20.42 Other hammer toe(s) (acquired), left foot; E66.9 Obesity, unspecified; E66.01 Morbid (severe) obesity due to excess calories; Z68.43 Body mass index [BMI] 50.0-59.9, adult
CPT/HCPCS: 28285; 28299; 28308; 73620; 87081; 97162; C1713 ×10

== ENCOUNTER → 2022-12-27 | Outpatient (CLI) | payer MEDICARE, OTHER ==
[~2022-12-27] MED LIST changes: +BARIUM for suspension 96% w/w (Vanilla Silq Medium Density) PO ONE; +BARIUM for suspension 98% w/w (Vanilla Silq High Density) PO ONE; +CEPH500C PO
--- NOTE | 2022-12-27 15:00 | Diagnostic Imaging Report ---
INDICATION: Nausea and food getting stuck in the throat for six months. Patient ingested effervescent crystals as well as thin and thick barium, and imaging of the esophagus was performed in multiple obliquities. A total of 33 seconds of fluoroscopic time was utilized. FINDINGS: Preliminary radiograph of the chest is unremarkable. The esophagus has a smooth contour. No mass or stricture is seen. No hiatal hernia or gastroesophageal reflux was demonstrated. Occasional tertiary contractions were noted. IMPRESSION: Essentially unremarkable esophagram. Dictated by: Dictated on workstation # [id number]
== END ==
LOC: RAD 09:15
PROVIDERS: ATTEND Surgery
DX: R13.10 Dysphagia, unspecified (principal); R11.0 Nausea
CPT/HCPCS: 74220

== ENCOUNTER 2023-01-09 05:53 | Outpatient (CLI) | payer MEDICARE, OTHER ==
[~2023-01-09] VITALS: Ht 157.5 cm; Wt 129.0 kg
[~2023-01-09 05:53] MED LIST changes: -BARIUM for suspension 96% w/w (Vanilla Silq Medium Density) PO ONE; -BARIUM for suspension 98% w/w (Vanilla Silq High Density) PO ONE; +POTA-330 PO; -POTA-51 PO
[2023-01-09] MEDS ORDERED: MULT-593 PO (13:48)
[2023-01-09] MEDS ORDERED: SUCR1TAB PO (13:48)
[2023-01-09] MEDS ORDERED: TRAZ-227 PO (13:48)
[2023-01-09] MEDS ORDERED: CALC600T91 PO (13:48)
== END 2023-01-09 13:57 | disposition home or self-care (01) ==
LOC: PREOP 05:53
PROVIDERS: ATTEND Surgery
DX: Z01.818 Encounter for other preprocedural examination (principal)

== ENCOUNTER 2023-01-22 10:28 | Day surgery (SDC) | payer MEDICARE, OTHER ==
[~2023-01-22] VITALS: Ht 158 cm; Wt 129.0 kg
[~2023-01-22 10:28] MED LIST changes: +CALC600T91 PO; +MULT-593 PO; +TRAZ-227 PO
[2023-01-22] MEDS ORDERED: LACTATED RINGERS 1,000 ML IV STA (10:29)
[2023-01-22] MEDS ORDERED: HURRICAINE EXT TUBE (BENZOCAINE) XX PRN (10:30)
[2023-01-22 10:45] VITALS: BP 116/74
[2023-01-22] MEDS ORDERED: MIDAZOLAM 2 MG/2 ML (VERSED) VIAL ONE (12:54)
[2023-01-22] MEDS ORDERED: PROPOFOL INJECTION 50 ML IV ONE (12:54)
[2023-01-22 13:10] VITALS: BP 132/71
--- NOTE | 2023-01-22 13:13 | Progress Note-Post Operative ---
Post-Operative Progess Note Surgeon (s)/Linen Sorter (s) Surgeon PAM MCCARTHY DO Linen Sorter: na Pre-Operative Diagnosis dysphagia, hx ulcers Post-Operative Diagnosis gastritis, reflux esophagitis Procedure & Operative Findings Date of Procedure 01/22/23 Procedure Performed/Findings egd c biopsies Anesthesia Type per oxygen equipment aide Estimated Blood Loss Estimated blood loss (mL): none Specimens/Packing Specimens Removed antrum, ge PAM MCCARTHY DO Jan 22, 2023 13:13
[2023-01-22 13:20] VITALS: BP 125/60
[2023-01-22 13:29] VITALS: BP 125/60
--- NOTE | 2023-01-22 14:07 | Anesthesia-General Post-Op ---
MAC Patient Condition Mental Status/LOC: Same as Preop Cardiovascular: Satisfactory Nausea/Vomiting: Absent Respiratory: Satisfactory Pain: Controlled Complications: Absent Post Op Complications Complications None Follow Up Care/Instructions Patient Instructions None needed. Anesthesiology Discharge Order Discharge Order Patient is doing well, no complaints, stable vital signs, no apparent adverse anesthesia problems. No complications reported per nursing. CALVIN LOMELI CRNA Jan 22, 2023 14:06
--- NOTE | 2023-01-22 18:37 | OPERATIVE REPORT ---
DATE OF SERVICE: 01/22/2023 PREOPERATIVE DIAGNOSES: Dysphagia, history of ulcers. POSTOPERATIVE DIAGNOSES: Gastritis, reflux esophagitis. PROCEDURES: EGD with biopsy. SURGEON: Pam Hui DO ANESTHESIA: Per GERIATRIC PHYSICAL THERAPIST. ESTIMATED BLOOD LOSS: None. COMPLICATIONS: None. INDICATIONS: The patient is a 67-year-old female with dysphagia symptoms and has history of ulcer. She understands risks and benefits of procedure and wished to proceed. Consent was signed in chart. DESCRIPTION OF PROCEDURE: The patient was taken to the endoscopy suite, placed in left lateral recumbent position. Timeout was performed. Scope was inserted in the mouth, down the esophagus, stomach, and the duodenum without difficulty. No polyps, masses, or ulcerations within the duodenum. Scope was slowly retracted back into the stomach where it was further insufflated. Small polyps that appeared inflamed were present. Biopsy of the antrum and these areas was obtained. Scope was retroflexed, noting no other pathology. Scope was returned to its normal position, slowly withdrawn until distal esophagus. Biopsy of the GE junction was obtained. Change of reflux esophagitis present. Scope was slowly retracted back until completely removed, noting no other pathology. The patient tolerated the procedure well, no complications, taken to recovery in stable condition. RECOMMENDATIONS: Continue on current medications. Await biopsy results. Further recommendations pending. Job ID: [id number] DocumentID: [id number] Dictated Date: 01/22/2023 13:15:20 Boiler Control Technician Date: 01/22/2023 18:11:00 Dictated By: PAM HUI DO
== END 2023-01-22 14:18 | disposition home or self-care (01) ==
LOC: ENDO 10:28
PROVIDERS: ATTEND Surgery
DX: K21.00 Gastro-esophageal reflux disease with esophagitis, without bleeding (principal); K29.70 Gastritis, unspecified, without bleeding; K31.7 Polyp of stomach and duodenum; K31.89 Other diseases of stomach and duodenum; Z85.528 Personal history of other malignant neoplasm of kidney; Z87.891 Personal history of nicotine dependence; Z87.11 Personal history of peptic ulcer disease; G47.33 Obstructive sleep apnea (adult) (pediatric); E66.01 Morbid (severe) obesity due to excess calories; Z68.43 Body mass index [BMI] 50.0-59.9, adult
CPT/HCPCS: 88305